=== PATIENT | female | born 1950 | race Caucasian/White ===

== ENCOUNTER → 2017-08-25 11:24 | Outpatient (CLI) | payer MEDICARE, MEDICAID, SELFPAY ==
[2017-08-25 13:38] LABS: Activated Partial Thrombo Time 27.3 seconds (23.6-34.0); INR 0.93 (0.9-1.1)
== END ==
PROVIDERS: Visit Provider Physician Assistant
DX: Z01.818 Encounter for other preprocedural examination (principal); Z79.01 Long term (current) use of anticoagulants; Z51.81 Encounter for therapeutic drug level monitoring
CPT/HCPCS: 36415; 85610; 85730

== ENCOUNTER → 2017-09-14 10:41 | Outpatient (CLI) | payer MEDICARE, MEDICAID, SELFPAY ==
[2017-09-14 18:25] LABS: Creatinine,Serum 1.06 mg/dL (0.55-1.02); Estimated Glomerular Filt Rate 52 ml/min (>60); GFR (African American) 63 ML/MIN (>60); Total Protein,Serum 6.3 gm/dL (6.4-8.2)
[2017-09-15 09:20] LABS: Vitamin D 25 Hydroxy 40.6 ng/mL (30.0-100.0)
[2017-09-17 08:02] LABS: Parathyroid Hormone Intact 42 pg/mL (15-65)
== END ==
PROVIDERS: Visit Provider Internal Medicine Nephrology
DX: N17.9 Acute kidney failure, unspecified (principal); N18.2 Chronic kidney disease, stage 2 (mild); E11.22 Type 2 diabetes mellitus with diabetic chronic kidney disease; I10 Essential (primary) hypertension
CPT/HCPCS: 36415; 82565; 82652; 83970; 84155

== ENCOUNTER 2017-09-16 15:00 | Outpatient (RCR) | payer MEDICARE, MEDICAID, SELFPAY | END 2017-09-16 17:15 | disposition home or self-care (01) | LOC: PT 15:00 | PROVIDERS: Visit Provider Physician Assistant | DX: R26.9 Unspecified abnormalities of gait and mobility (principal) | CPT/HCPCS: 97110; 97163 ==

== ENCOUNTER → 2018-03-19 10:29 | Outpatient (CLI) | payer MEDICARE, MEDICAID, SELFPAY ==
[2018-03-19 13:53] LABS: Creatinine,Urine Random 62 mg/dL (20-320); Total Protein,Urine Random 19.4 mg/dL (0.0-11.9)
[2018-03-20 10:58] LABS: Vitamin D 25 Hydroxy 36.8 ng/mL (30.0-100.0)
[2018-03-20 19:01] LABS: Parathyroid Hormone Intact 55 pg/mL (15-65)
== END ==
PROVIDERS: PCP Family Medicine; Visit Provider Internal Medicine Nephrology
DX: N17.9 Acute kidney failure, unspecified (principal); N18.2 Chronic kidney disease, stage 2 (mild); E11.22 Type 2 diabetes mellitus with diabetic chronic kidney disease
CPT/HCPCS: 36415; 82570; 82652; 83970; 84155

== ENCOUNTER → 2018-05-18 08:44 | Outpatient (CLI) | payer MEDICARE, MEDICAID, SELFPAY ==
--- NOTE | 2018-05-18 | US_ITS ---
US Arterial Ankle Brachial Ind History: Bilateral rest pain, bilateral claudication, current smoker, diabetes ORDERING PHYSICIAN: Viktoriya Ortiz DPM PATIENT AGE: 67 years TECHNIQUE: Segmental pressures obtained of both right and left leg. These are compared to brachial blood pressure to yield index at each level sampled including summary FABIEN. The data sheets from the procedure are available in PACS FINDINGS Rest study only performed today No prior studies available for comparison. Blood pressures reported are in millimeters mercury. RIGHT LEG FABIEN = 1.0. RIGHT LEG TBI=0.8 Brachial BP: 114 Thigh BP: 126 Calf BP: 124 Ankle PT: 112 Ankle DP : 101 Digit =89 LEFT LEG FABIEN = 0.9 LEFT LEG TBI= 0.7 Brachial BPD: 114 Thigh BP: 131 Calf BP: 126 Ankle PT:97 Ankle DP: 97 Digit = 74 Pulses and waveforms: Normal IMPRESSION: The ABIs and TBI s as reported above are within normal limits. Waveforms and pulses are also unremarkable.
== END ==
PROVIDERS: PCP Family Medicine; Visit Provider Podiatrist
DX: R09.89 Other specified symptoms and signs involving the circulatory and respiratory systems (principal)
CPT/HCPCS: 93922

== ENCOUNTER → 2018-09-21 11:05 | Outpatient (CLI) | payer MEDICARE, MEDICAID, SELFPAY ==
[2018-09-21 14:40] LABS: Creatinine,Urine Random 69 mg/dL (20-320); Total Protein,Urine Random 22.7 mg/dL (0.0-11.9)
[2018-09-21 17:19] LABS: Hemoglobin A1C 6.4 % (0.0-7.0)
[2018-09-24 07:12] LABS: Parathyroid Hormone Intact 40 pg/mL (15-65)
== END ==
PROVIDERS: PCP Family Medicine; Visit Provider Internal Medicine Nephrology
DX: N18.2 Chronic kidney disease, stage 2 (mild) (principal); E11.22 Type 2 diabetes mellitus with diabetic chronic kidney disease; I10 Essential (primary) hypertension; Z79.84 Long term (current) use of oral hypoglycemic drugs
CPT/HCPCS: 36415; 82570; 82652; 83036; 83970; 84155

== ENCOUNTER → 2018-12-13 10:19 | Outpatient (CLI) | payer MEDICARE, MEDICAID, SELFPAY ==
[2018-12-13 13:43] LABS: Basophils % 0.4 % (0.1-2.0); Eosinophils # 0.2 K/mm3 (0.0-0.4); Eosinophils % 1.5 % (0.1-12.0); Hematocrit 41.3 % (37.0-47.0); Hemoglobin 12.9 g/dL (12.2-16.2); Lymphocytes # 1.6 K/mm3 (0.7-4.5); Lymphocytes % 16.1 % (10-50); Mean Corpuscular HGB Conc 31.2 g/dL (31.8-35.4); Mean Corpuscular Hemoglobin 29.3 pg (27.0-31.2); Mean Corpuscular Volume 93.9 fl (81-99); Monocytes # 0.7 K/mm3 (0.1-1.0); Monocytes % 7.1 % (1.7-9.3); Neutrophils # 7.6 K/mm3 (1.8-7.8); Platelet Count 434 K/mm3 (142-424); Red Cell Distribution Width 14.4 % (11.5-17.5); White Blood Count 10.1 K/mm3 (4.8-10.8)
[2018-12-13 13:48] LABS: Alanine Aminotransferase 29 U/L (12-78); Albumin Level 3.3 gm/dL (3.4-5.0); Alkaline Phosphatase 89 U/L (46-116); Anion Gap 16.8 mEq/L (5-15); Aspartate Amino Transferase 15 U/L (15-37); Bilirubin,Total 0.3 mg/dL (0.2-1.0); Blood Urea Nitrogen 12 mg/dL (7-18); Calcium 9.4 mg/dL (8.5-10.1); Carbon Dioxide 29 mmol/L (21.0-32.0); Chloride 100 mmol/L (98-107); Chol/HDL Ratio 2.5 (1-3.5); Cholesterol 152 mg/dL (140-200); Creatinine,Serum 0.82 mg/dL (0.55-1.02); Estimated Glomerular Filt Rate 69 ml/min (>60); Free Thyroxine Index 4.2 ug/dL (5.93-13.13); GFR (African American) 84 ML/MIN (>60); Globulin 3.3 gm/dl (1.3-3.2); Glucose 152 mg/dL (74-106); HDL Cholesterol 62 mg/dL (29-89); LDL Cholesterol 76 mg/dL (0-130); Potassium 4.8 mmoL/L (3.5-5.1); Sodium 141 mmol/L (136-145); T4 (Thyroxine) 12.3 ug/dl (4.7-13.3); Total Protein,Serum 6.6 gm/dL (6.4-8.2); Triglycerides 72 mg/dL (30-200); Triiodothryronine (T3) Uptake 34 % (31-39); VLDL Cholesterol 14 mg/dL (0-40)
[2018-12-13 15:26] LABS: Hemoglobin A1C 6.4 % (0.0-7.0)
== END ==
PROVIDERS: PCP Family Medicine; Visit Provider Family Medicine
DX: E11.9 Type 2 diabetes mellitus without complications (principal); I10 Essential (primary) hypertension; E78.5 Hyperlipidemia, unspecified; Z79.84 Long term (current) use of oral hypoglycemic drugs
CPT/HCPCS: 80053; 80061; 83036; 84436; 84443; 84479; 85025

== ENCOUNTER → 2019-04-01 11:05 | Outpatient (CLI) | payer MEDICARE, MEDICAID, SELFPAY ==
[2019-04-01 13:46] LABS: Blood Urea Nitrogen 15 mg/dL (7-18); Calcium 9.2 mg/dL (8.5-10.1); Carbon Dioxide 31 mmol/L (21.0-32.0); Chloride 102 mmol/L (98-107); Creatinine,Serum 0.85 mg/dL (0.55-1.02); Estimated Glomerular Filt Rate 67 ml/min (>60); GFR (African American) 80 ML/MIN (>60); Glucose 132 mg/dL (74-106); Phosphorous 4.3 mg/dL (2.4-4.9); Sodium 141 mmol/L (136-145)
[2019-04-01 16:34] LABS: Hemoglobin A1C 6.4 % (0.0-7.0)
[2019-04-03 18:00] LABS: Parathyroid Hormone Intact 29 pg/mL (15-65); Vitamin D 25 Hydroxy 34.7 ng/mL (30.0-100.0)
== END ==
PROVIDERS: Visit Provider Internal Medicine Nephrology
DX: N18.2 Chronic kidney disease, stage 2 (mild) (principal); E11.22 Type 2 diabetes mellitus with diabetic chronic kidney disease; N17.9 Acute kidney failure, unspecified; Z79.84 Long term (current) use of oral hypoglycemic drugs
CPT/HCPCS: 36415; 80069; 82652; 83036; 83970

== ENCOUNTER 2020-01-24 17:35 | Inpatient (IN) | payer MEDICARE, MEDICAID, SELFPAY ==
[2020-01-24] VITALS (7 sets, daily range): BP systolic 109–139; BP diastolic 50–77; PULSE 67–110; RESP 18–20; TEMP 36.8–37.2; O2SAT 88–100; BMI 31.4; BMI 31.0
--- NOTE | 2020-01-24 17:51 | XR_ITS ---
PROCEDURE: XR CHEST PORTABLE CLINICAL HISTORY: cough Cough, smoker COMPARISON: CR CXR1 CHEST-PORTABLE from 11/14/2014 CR CXR CHEST(2 VIEWS-NOT PORTABLE) from 11/23/[address] ABDOMEN PELVIS W CON from 01/24/2020 FINDINGS: The cardiomediastinal silhouette and pulmonary vascularity are within normal limits. There is dense consolidation in the right lower lobe consistent with pneumonia. Recommend following till clear to exclude the possibility of postobstructive pneumonia. The left lung is clear . There are degenerative changes in the shoulders right greater than left. There is severe right-sided subacromial stenosis consistent with rotator cuff tear. IMPRESSION: Right lower lobe pneumonia. Recommend follow-up till clear Dictated by: Keenan Saavedra MD 01/25/2020 05:23 Keenan Saavedra MD in [place] 01/25/2020 05:23
[2020-01-24 18:26] LABS: Chloride 91 mmol/L (98-107); Sodium 133 mmol/L (136-145)
[2020-01-24 18:27] LABS: Potassium 3.4 mmoL/L (3.5-5.1)
[2020-01-24 18:29] LABS: Alanine Aminotransferase 31 U/L (12-78); Albumin Level 3.7 g/dl (3.5-5.0); Alkaline Phosphatase 100 U/L (38-126); Anion Gap 14.4 mEq/L (5-15); Aspartate Amino Transferase 40 U/L (14-36); Bilirubin,Total 0.5 mg/dl (0.2-1.3); Blood Urea Nitrogen 17 mg/dl (7-17); Calcium 9.2 mg/dl (8.4-10.2); Carbon Dioxide 31 mmol/L (22.0-30.0); Creatinine Clearance Estimated 63 mL/min (50-200); Estimated Glomerular Filt Rate 62 ml/min (>60); GFR (African American) 75 ML/MIN (>60); Globulin 3.6 g/dL (1.3-3.2); Glucose 160 mg/dl (74-100); Total Protein,Serum 7.3 g/dl (6.3-8.2)
[2020-01-24 18:30] LABS: Lipase 30 U/L (23-300)
[2020-01-24 18:39] LABS: Basophils # 0.1 K/mm3 (0-0.2); Basophils % 0.4 % (0.1-2.0); Eosinophils # 0.1 K/mm3 (0.0-0.4); Eosinophils % 0.2 % (0.1-12.0); Hematocrit 40.8 % (37.0-47.0); Hemoglobin 13.3 g/dL (12.2-16.2); Lymphocytes # 2.4 K/mm3 (0.7-4.5); Lymphocytes % 8.6 % (10-50); Mean Corpuscular HGB Conc 32.5 g/dL (31.8-35.4); Mean Corpuscular Hemoglobin 29.9 pg (27.0-31.2); Mean Platelet Volume 21.8 fl (7.4-10.4); Monocytes # 1.2 K/mm3 (0.1-1.0); Monocytes % 4.5 % (1.7-9.3); Neutrophils # 23.8 K/mm3 (1.8-7.8); Neutrophils % 86.6 % (37.0-80.0); Platelet Count 518 K/mm3 (142-424); Red Blood Count 4.43 M/mm3 (4.20-5.40); White Blood Count 27.5 K/mm3 (4.8-10.8)
[2020-01-24 18:41] LABS: MANUAL DIFFERENTIAL MANUAL DIFFERENTIAL (MANUAL DIFF)
--- NOTE | 2020-01-24 18:46 | CT_ITS ---
PROCEDURE: CT ABDOMEN PELVIS W CON CLINICAL INDICATION: pain, diarrhea, leukocytosis Abdominal pain tenderness and diarrhea COMPARISON: No exams were available for comparison TECHNIQUE: IV Contrast: 75ML Isovue 370 Oral Contrast None Axial images obtained with sagittal and coronal reformats. All CT scans at the facility use one or more dose reduction, viz: automated exposure control, ma/kV adjustment per patient size (including targeted exams where dose is matched to indication, i.e. head), or iterative reconstruction technique. FINDINGS: LOWER THORAX: There is dense consolidation in the right middle lobe consistent with pneumonia. Can't exclude the possibility of a postobstructive process. There are linear opacities in the right lower lobe in the lung base with bronchial thickening with some scattered nodularity as well which may be due to tree in bud type pneumonia. Atelectatic or fibrotic changes are present in the left lung base with bronchial thickening noted on the left. Coronary artery calcifications are present ABDOMEN & PELVIS: There are post cholecystectomy changes with mild biliary dilatation. The spleen, adrenal glands, pancreas, and kidneys have an unremarkable appearance. There is a small ventral abdominal wall hernia just to the right of midline this is 6 cm superior to the umbilicus. There is an umbilical hernia also containing fat. Abdominal wall mesh is present just inferior to the region of the umbilical hernia. There is extensive artifact from bilateral hip prosthesis. Prior appendectomy and hysterectomy. There is mild thickening of the transverse and descending colon with some minimal stranding of the pericolic fat at the junction of the descending and sigmoid colon. There is also thickening of the sigmoid colon. The sigmoid colon in the pelvic region however is obscured from the artifact from the hip prosthesis. There is diverticulosis of the sigmoid colon. There does appear to be some minimal stranding of the pericolic fat in the sigmoid area. Bowel gas pattern is nonspecific with some nondistended loops of small bowel with a few scattered air-fluid levels. There are degenerative changes in the lumbar spine with severe degenerative disc disease at L4-5 with osteosclerosis. There is 6 mm anterolisthesis of L4. IMPRESSION: 1. Dense consolidation in the right middle lobe consistent with pneumonia also with pneumonia in the right lower lobe 2. There are 2 abdominal wall hernias 1 which is 6 cm superior to the umbilicus and 1 at the umbilicus both containing fat. 3. Thickening of the transverse and descending colon which could be due to nondistention or colitis. Scattered air-fluid levels within the small bowel nonspecific. 4. Sigmoid diverticulosis with mild stranding of the pericolic fat. Much of the sigmoid colon is obscured by artifact. Diverticulitis is a consideration. No obvious abscess or pneumoperitoneum. There is extensive streak artifact of the pelvis from bilateral hip prosthesis Dictated by: Keenan Saavedra MD 01/25/2020 06:06 Keenan Saavedra MD in [facility] 01/25/2020 06:06
--- NOTE | 2020-01-24 18:48 | HMH.EDGENADL ---
ED Disposition Condition on Discharge: Serious - Critical Care Critical Care Time: Yes Total Critical Care Time: 30 Vital system(s) involved:: Circulatory Failure, Metabolic Failure, Respiratory Failure, Shock (Septic) My critical care processes included: Assessment & monitoring of V/S, Initial and Re-exams, Data Review/Interpretation, Coordinating Care, Medication Orders and management, Documentation <Geoff Encarnacion - Last Filed: 01/24/20 19:31> <Brian Arce - Last Filed: 01/24/20 21:28> Clinical Impression: Gastroenteritis, Acute respiratory failure with hypoxia, SIRS (systemic inflammatory response syndrome), Type 2 diabetes mellitus with diabetic neuropathy, without long-term current use of insulin, Ileus, unspecified, Tobacco use Right lower lobe pneumonia Qualifiers: Pneumonia type: due to unspecified organism Qualified Code(s): J18.9 - Pneumonia, unspecified organism Sepsis Qualifiers: Sepsis type: sepsis due to unspecified organism Sepsis acute organ dysfunction status: without acute organ dysfunction Qualified Code(s): A41.9 - Sepsis, unspecified organism Disposition: Admitted As Inpatient Referrals: Anastasia Hutchinson [Primary Care Provider] - Attestation: On 01/24/20, the high probability of a clinically significant, sudden or life threatening deterioration of the following system(s) required my full and direct attention, intervention and personal management. The time I documented below is in addition to time spent performing reported procedures but includes the following listed in this critical care notation. Medical Decision Making - Medical Records Medical records reviewed: Yes: I reviewed the patient's medical records. - Franklyn Inquiry Pt receiving controlled substance: No - Lab Data Result diagrams: 01/24/20 18:00 01/24/20 18:00 - Radiology Data #1 Image(s): Chest Image Reviewed: Yes I reviewed the patient's radiology results, Yes I reviewed the patient's radiology image <Geoff Encarnacion - Last Filed: 01/24/20 19:31> - Lab Data Lab results reviewed: Yes: I reviewed the patient's lab results. Result diagrams: 01/24/20 18:00 01/24/20 18:00 - Radiology Data #1 Preliminary Findings: Abnormal - CT Data CT Scan: Abdomen, Pelvis Time Received: 21:[address] Reviewed: Yes: I have viewed the radiologist's interpretation Preliminary Findings: Abnormal (see report ) <Brian Arce S - Last Filed: 01/24/20 21:28> Vital Signs: 01/24/20 17:43 01/24/20 18:07 01/24/20 20:50 Temperature 99 F Temperature Source Oral Pulse Rate [Radial] 67 103 H 81 Respiratory Rate 20 18 18 Blood Pressure [Right Arm] 111/65 109/77 L 123/50 L Blood Pressure Mean [Right Arm] 80 87 74 Blood Pressure Source [Right Arm] Automatic Cuff Automatic Cuff Blood Pressure Position [Right Arm] Sitting Sitting 02 Sat by Pulse Oximetry 88 L 100 99 Oxygen Delivery Method Nasal Cannula Room Air Nasal Cannula Oxygen Flow Rate (LPM) 2 2 - Lab Data Lab Results 01/24/20 18:00: WBC 27.5 H*, RBC 4.43, Hgb 13.3, Hct 40.8, MCV 92.0, MCH 29.9, MCHC 32.5, RDW 17.0, Plt Count 518 H, MPV 21.8 H, Neut % (Auto) 86.6 H, Lymph % (Auto) 8.6 L, Quay % (Auto) 4.5, Eos % (Auto) 0.2, Baso % (Auto) 0.4, Neut # (Auto) 23.8 H, Lymph # (Auto) 2.4, Quay # (Auto) 1.2 H, Eos # (Auto) 0.1, Baso # (Auto) 0.1, Total Counted 100, Neutrophils % (Manual) 91 H, Lymphocytes % (Manual) 7 L, Monocytes % (Manual) 2, Platelet Estimate Slight increase, RBC Morphology Normal 01/24/20 18:00: Sodium 133 L, Potassium 3.4 L, Chloride 91 L, Carbon Dioxide 31 H, Anion Gap 14.4, BUN 17, Creatinine 0.90, Estimated Creat Clear 63, Estimated GFR 62, Est GFR ( Amer) 75, Glucose 160 H, Calcium 9.2, Total Bilirubin 0.5, AST 40 H, ALT 31, Alkaline Phosphatase 100, Total Protein 7.3, Albumin 3.7, Globulin 3.6 H, Albumin/Globulin Ratio 1.0 L 01/24/20 18:00: Lipase 30 01/24/20 18:00: Troponin I 0.02 01/24/20 18:00: SARS-CoV-2 IgG Ab (Rapid) Negative
[2020-01-24 19:15] LABS: Troponin I 0.02 ng/ml (0.00-0.034)
[2020-01-24 19:29] LABS: Lactic Acid 0.9 mmol/L (0.7-2.1)
[2020-01-24 19:29] LABS: Lymphocytes % 7 % (10-50); Monocytes % 2 % (2-9); Neutrophils % 91 % (42-76); Platelet Estimate Slight Increase; RBC Morphology Normal; Total Cells Counted 100
[2020-01-24 19:46] LABS: Coronavirus 19 IgG Antibody Negative (Negative); Coronavirus 19 IgM Antibody Negative (Negative)
--- NOTE | 2020-01-24 20:46 | PC.NURSE ---
pt back from XR at this time
[2020-01-24 21:06] LABS: ABG Base Excess 2.7 mmol/L (-2.4-2.3); ABG HCO3 28.6 mmhg (22.0-26.0); ABG Oxygen Saturation 96 % (90-100); ABG PH 7.33 mmol/L (7.35-7.45); ABG PO2 93.8 mmhg (80-100); ABG TCO2 30.4 mmhg (23-27)
[2020-01-24 21:07] LABS: ABG PCO2 55.7 mmhg (35.0-45.0); Oxygen 2 %
--- NOTE | 2020-01-24 22:08 | PC.NURSE ---
PT ARRIVED TO THE FLOOR VIA STRETCHER FROM ED W/STAFF AT 2207.
[2020-01-24 23:18] LABS: Troponin I 0.01 ng/ml (0.00-0.034)
[2020-01-25] VITALS (18 sets, daily range): BP systolic 98–159; BP diastolic 46–98; PULSE 100–120; RESP 16–20; TEMP 36.6–36.8; O2SAT 91–99; BMI 30.9; BMI 30.8
[2020-01-25 01:14] LABS: Troponin I < 0.01 ng/ml (0.00-0.034)
[2020-01-25 06:18] LABS: POC Glucose,Bedside 197 (70-110)
[2020-01-25 06:39] LABS: Basophils % 0.2 % (0.1-2.0); Eosinophils # 0.1 K/mm3 (0.0-0.4); Eosinophils % 0.2 % (0.1-12.0); Hematocrit 41.1 % (37.0-47.0); Hemoglobin 12.1 g/dL (12.2-16.2); Lymphocytes # 0.7 K/mm3 (0.7-4.5); Lymphocytes % 3.4 % (10-50); Mean Corpuscular HGB Conc 29.4 g/dL (31.8-35.4); Mean Corpuscular Volume 98.7 fl (81-99); Mean Platelet Volume 7.3 fl (7.4-10.4); Monocytes # 0.4 K/mm3 (0.1-1.0); Monocytes % 1.9 % (1.7-9.3); Neutrophils % 94.3 % (37.0-80.0); Platelet Count 567 K/mm3 (142-424); Red Blood Count 4.16 M/mm3 (4.20-5.40); Red Cell Distribution Width 13.2 % (11.5-17.5); White Blood Count 20.2 K/mm3 (4.8-10.8)
[2020-01-25 06:41] LABS: MANUAL DIFFERENTIAL MANUAL DIFFERENTIAL (MANUAL DIFF)
[2020-01-25 06:50] LABS: Chloride 97 mmol/L (98-107); Sodium 138 mmol/L (136-145)
[2020-01-25 06:52] LABS: Blood Urea Nitrogen 14 mg/dl (7-17)
[2020-01-25 06:53] LABS: Calcium 8.9 mg/dl (8.4-10.2); Carbon Dioxide 28 mmol/L (22.0-30.0); Cholesterol 134 mg/dl (140-200); Creatinine Clearance Estimated 62 mL/min (50-200); Estimated Glomerular Filt Rate 71 ml/min (>60); GFR (African American) 86 ML/MIN (>60); Glucose 198 mg/dl (74-100); Triglycerides 120 mg/dl (30-150); VLDL Cholesterol 24 mg/dL (0-40)
[2020-01-25 06:54] LABS: Chol/HDL Ratio 4.1 (1-3.5); HDL Cholesterol 33 mg/dl (40-60)
[2020-01-25 07:04] LABS: Direct LDL Cholesterol 60.14 mg/dL (100-129)
--- NOTE | 2020-01-25 07:32 | P.CONPHA_ITS ---
[facility] [place] Pharmacy VTE Monitoring - Patient Demographics Admission date: 01/25/20 Report Date: 01/25/20 Time: 07:32 Allergies/Adverse Reactions: Patient Allergies From FOSAMAX Allergy (Intermediate, Uncoded 04/13/19 09:57) NA-DIZZINESS From LIPITOR Allergy (Intermediate, Uncoded 04/13/19 09:57) WEAKNESS TUBERCULIN Allergy (Mild, Uncoded 04/13/19 09:57) POSITIVE REACTOR Height: 1.55 m Weight: 74.446 kg Patient Problems: Current Active Problems Right lower lobe pneumonia (Acute) Gastroenteritis (Acute) Sepsis (Acute) Acute respiratory failure with hypoxia (Acute) SIRS (systemic inflammatory response syndrome) (Acute) Ileus, unspecified (Acute) Tobacco use (Acute) Type 2 diabetes mellitus with diabetic neuropathy, without long-term current use of insulin (Acute) - VTE Risk Labs: VTE Related Lab Results Hgb 12.1 g/dL (12.2-16.2) L 01/25/20 06:28 Hct 41.1 % (37.0-47.0) 01/25/20 06:28 Plt Count 567 K/mm3 (142-424) H 01/25/20 06:28 BUN 17 mg/dl (7-17) 01/24/20 18:00 Creatinine 0.90 mg/dl (0.52-1.04) 01/24/20 18:00 Estimated Creat Clear 63 mL/min (50-200) 01/24/20 18:00 Was VTE Risk Assessment Performed: Yes VTE Score: 10 VTE Risk Level: Moderate Risk Clinical Trial Participant: No - Prophylaxis VTE Prophylaxis Ordered?: Yes Types of VTE Prophylaxis: TEDS Knee High
[2020-01-25 07:56] LABS: Magnesium 0.9 mg/dl (1.6-2.3)
--- NOTE | 2020-01-25 08:00 | CA_ITS ---
APPROVED REPORT EXAM: Comprehensive 2D, Doppler, and color-flow Echocardiogram Parent Coach: Nichole aYng RT(R) Ht: 5 ft 1 in Wt: 164lbs BSA: 1.74 BP: 123/50 mmHg Indications: CP, COPD, smoker, HTN, DM, hyperlipidemia, family history of HD M-Mode Dimensions RVDd 2.13 cm (0.9-2.6) LA Diam 2.91 cm (1.9-4.0) LVDd 4.34 cm (3.5-5.7) Ao Diam 2.34 cm (2.0-3.7) LVDs 3.45 cm (3.5-5.7) IVSd 1.16 cm (0.6-1.1) PWd 0.92 cm (0.6-1.1) EF (Teich) 42.20% FS 20.50% EDV (Teich) 84.90 mL ESV (Teich) 49.10 mL LV Diastology E Decel Time 150.00 (160-240 msec) E/A Ratio 0.6 MED E' 5.70 (< 7 cm/sec) E'/MED E' Ratio 16.67 (>14) LAT E' 10.90 (<10 cm/sec) E/LAT E' Ratio 8.72 (>14) Mitral Valve MV E Max Neville. 95.00 (40-130 cm/s) MV A Velocity 166.00 (40-130 cm/s) E/A Ratio 0.57 MV Decel. Time 150.00 (160-240 ms) MV PHT 44.00 ms Left Ventricle Left atrium is mildly enlarged, left ventricle is normal size, mild concentric left ventricular hypertrophy, visually estimated ejection fraction 55% with no regional wall motion abnormality, endocardial surfaces are poorly visualized, grade 1 diastolic dysfunction seen without tissue Doppler evidence of raise left atrial pressure. Right Ventricle Right atrium and right ventricle are normal size and contractility. Aortic Valve Aortic valve is thickened and calcified, there is no aortic stenosis or significant aortic insufficiency. Mitral Valve Mitral valve has mitral annular calcification, leaflets are minimally thickened, there is moderate mitral regurgitation. Tricuspid Valve Tricuspid valve is grossly normal, there is mild tricuspid regurgitation, tricuspid regurgitation jet velocity is inadequate for calculation of the right ventricular systolic pressure. Pulmonic Valve Pulmonic valve is poorly visualized. Great Vessels Aortic root is normal size. Inferior vena cava is normal size with normal inspiratory collapse. Pericardium No significant pericardial effusion noted. Conclusion 1. Mildly enlarged left atrium, normal left ventricular size, mild concentric left ventricular hypertrophy, visually estimated ejection fraction 55% with no regional wall motion abnormality, grade 1 diastolic dysfunction seen without tissue Doppler evidence of raise left atrial pressure. 2. Thickened and calcified aortic valve without aortic stenosis or aortic insufficiency. 3. Moderate mitral and mild tricuspid regurgitation. 4. Inferior vena cava is normal size with normal inspiratory collapse. There is no significant pericardial effusion noted. Electronically signed by : Sander Valdez, 01/26/2020 10:48:05
--- NOTE | 2020-01-25 08:05 | PC.NURSE ---
blood pressure reported to tana sharma rn
--- NOTE | 2020-01-25 08:13 | PC.NURSE ---
tana sharma, rn at bedside, aware of repeat b/p
--- NOTE | 2020-01-25 08:15 | PC.NURSE ---
Notified Dr. Arce of magnesium of 0.9 during morning rounds as well as manual blood pressure of 98/50. He said he would order magnesium to be given.
[2020-01-25 08:31] LABS: Lymphocytes % 8 % (10-50); Monocytes % 2 % (2-9); Neutrophils % 90 % (42-76); Platelet Estimate Marked Increase; RBC Morphology Normal; Total Cells Counted 100
--- NOTE | 2020-01-25 10:12 | SW/DCPLANNER ---
I have spoke with this patient regarding discharge plans. Patient stated that she resides in apartments in [place] alone. Patient stated that she does well at home alone: will occasionally hire help for large task she can not complete alone. Patient stated that she does have O2 thru [facility] but only uses with it with her CPAP machine. Patient stated that she does not know how to use nasal cannula if needed. I will follow up with [facility] at discharge to assist in making sure they will follow up with machine and educate patient if home O2 is needed at discharge. Patient stated that she has a rolling walker that she uses at home. Patient stated that she has used home health services in the past and feels that she could benefit from services at time of discharge. Patient prefers to use [facility]. Discharge date is unknown at this time. I will continue to follow up with: patient and .
--- NOTE | 2020-01-25 10:33 | HMH.PHAINT ---
[facility]
--- NOTE | 2020-01-25 10:45 | HMH.HP ---
*Admission Date: 01/25/20 *Chief complaint: Cough, fever *History of present illness: This is a 69-year-old female presenting to the emergency department with nausea, diarrhea, cough and low-grade fever. Patient has had the symptoms for the last week. She states the diarrhea is slightly getting better. It is clear in nature. No blood or mucus. She was not having any associated abdominal discomfort. Patient started having some runny nose over the last few days. She started having some low-grade fevers as well. She denies any headache or change in vision. She is not having any focal weakness. No back pain. She denies any extremity injuries. No chest pain or shortness of breath. No palpitations. In the emergency department white blood cell count was 27.5, H/H 13.3/40.8, platelets 518. Sodium 133, potassium 3.4 BUN 17, and creatinine 0.9. Lipase was 30, AST 40, ALT 31 Interestingly procalcitonin 0.40, SARS-COV-2 IgG negative, SARS-COV-2 IgM negative. She received ceftriaxone, doxycycline IV and 1 L normal saline in the emergency department This morning she is sitting up in bed oxygen saturations 96% on 2 L she reports she is feeling a little better but she is still tired and short of breath. Consulted pulmonology 01/24/2020 chest x-ray: FINDINGS: The cardiomediastinal silhouette and pulmonary vascularity are within normal limits. There is dense consolidation in the right lower lobe consistent with pneumonia. Recommend following till clear to exclude the possibility of postobstructive pneumonia. The left lung is clear . There are degenerative changes in the shoulders right greater than left. There is severe right-sided subacromial stenosis consistent with rotator cuff tear. IMPRESSION: Right lower lobe pneumonia. Recommend follow-up till clear Dictated by: Quentin, 01/24/20 abdomen/pelvis CT: IMPRESSION: 1. Dense consolidation in the right middle lobe consistent with pneumonia also with pneumonia in the right lower lobe 2. There are 2 abdominal wall hernias 1 which is 6 cm superior to the umbilicus and 1 at the umbilicus both containing fat. 3. Thickening of the transverse and descending colon which could be due to nondistention or colitis. Scattered air-fluid levels within the small bowel nonspecific. 4. Sigmoid diverticulosis with mild stranding of the pericolic fat. Much of the sigmoid colon is obscured by artifact. Diverticulitis is a consideration. No obvious abscess or pneumoperitoneum. There is extensive streak artifact of the pelvis from bilateral hip prosthesis Dictated by: Quentin [facility] History Medical History: Reports:: Asthma, Congestive Heart Failure, Chronic Obstructive Pulmonary Disease (COPD), Deep Vein Thrombosis, Diabetes Mellitus Type 2, Hyperlipidemia, Hypertension Denies:: Cancer, Diabetes Mellitus Type 1, MRSA *Have you ever received a pneumonia vaccine?: No *Have you received a flu vaccine this season?: No Other Medical History: Reports: Cataracts Laterality Cases: Bilateral: Tonsillectomy, Total Hip Replacement Other Surgeries: Yes: Cardiac Catheterization, Cholecystectomy, Colonoscopy, EGD, Hernia Repair, Hysterectomy-Total Amputation: No Fractures: Yes - *Social History Last grade of school completed: High school graduate Smoking Status: Current every day smoker Tobacco Type: cigarettes # Packs/Day (cigarettes): 1 Alcohol Intake: never Alcohol Intake Frequency:: other *Occupational Status:: retired Housing: assisted living facility *Travel in the last 8 weeks: None Family Hx:: Diabetes, Heart Attack, Hypertension Review of Systems - Review of Systems Review of systems:: pertinent systems reviewed and negative unless documented below - Constitutional Reports chills, Reports fatigue, Reports fever(s), Denies body ache(s) - Eyes Denies blind spots, Denies sensitivity to light - ENT Reports ear pain, Reports nasal discharge, Reports post nasal drip, Denies tongue s
--- NOTE | 2020-01-25 10:52 | HMH.PULMCON ---
*Admission Date: 01/25/20 *Reason for consult:: Acute hypoxic respiratory failure, community-acquired pneumonia *History of present illness: Ms. Meza is a 69-year-old female significant smoking history more than 30 packs a day currently smoking half pack a day was presented to the hospital complaining of abdominal pain diarrhea along with worsening cough productive phlegm and shortness of breath. On further questioning patient states that she has increased sinus drainage for the last week and she feels like her sinus cysts are draining back to her throat and that is prompting the cough. Denies any fevers, chills, weight loss. Denies any sick contacts. Patient at home using Dulera along with albuterol inhaler she is also on CPAP on 2 L nasal cannula. [facility] History Medical History: Reports:: Asthma, Congestive Heart Failure, Chronic Obstructive Pulmonary Disease (COPD), Deep Vein Thrombosis, Diabetes Mellitus Type 2, Hyperlipidemia, Hypertension Denies:: Cancer, Diabetes Mellitus Type 1, MRSA *Have you ever received a pneumonia vaccine?: No *Have you received a flu vaccine this season?: No Other Medical History: Reports: Cataracts Laterality Cases: Bilateral: Tonsillectomy, Total Hip Replacement Other Surgeries: Yes: Cardiac Catheterization, Cholecystectomy, Colonoscopy, EGD, Hernia Repair, Hysterectomy-Total Amputation: No Fractures: Yes - *Social History Last grade of school completed: High school graduate Smoking Status: Current every day smoker Tobacco Type: cigarettes # Packs/Day (cigarettes): 1 Alcohol Intake: never Alcohol Intake Frequency:: other *Occupational Status:: retired Housing: assisted living facility *Travel in the last 8 weeks: None Family Hx:: Diabetes, Heart Attack, Hypertension ROS - Review of Systems Review of systems:: pertinent systems reviewed and negative unless documented below - Cons Reports chills, Reports fever(s), Denies anorexia, Denies body ache(s) - Eyes Denies blind spots, Denies blurry vision - ENT Reports nasal discharge, Reports post nasal drip - Card Reports shortness of breath, Reports shortness of breath with activity, Denies chest pain, Denies chest pain at rest, Denies leg swelling - Resp Respiratory: Yes shortness of breath, Yes chest congestion, Yes cough - GI Gastrointestingal: Reports: abdominal pain - Musk Musculoskeletal: Reports system reviewed and no additional complaints, except as docu - Psych Reports anxiety, Denies abnormal sleep pattern, Denies lack of enjoyment Meds Home Medications Medication Instructions Recorded Confirmed Type atorvastatin 20 mg tablet 20 mg PO DAILY 90 Days #90 tab 05/13/18 01/24/20 History clopidogrel 75 mg tablet 75 mg PO DAILY 90 Days #90 tab 05/13/18 01/24/20 History fluticasone propionate 50 1 spray INTRANASAL DAILY 30 Days 05/13/18 01/24/20 History mcg/actuation nasal #16 g spray,suspension furosemide 20 mg tablet 20 mg PO BID 90 Days #90 tab 05/13/18 01/25/20 History hydroxyzine HCl 25 mg tablet 25 mg PO BID 90 Days #180 tab 05/13/18 01/24/20 History bupropion HCl 150 mg tablet,12 hr 150 mg PO BID 90 Days #180 each 11/09/19 01/24/20 History sustained-release gabapentin 100 mg capsule 300 mg PO BID 30 Days #180 cap 11/09/19 01/24/20 History glipizide 10 mg tablet 10 mg PO HS 90 Days tab 11/09/19 01/24/20 History metformin 500 mg tablet 500 mg PO BID 90 Days #180 tab 11/09/19 01/24/20 History metoprolol succinate 50 mg 50 mg PO DAILY 90 Days #90 tab 11/09/19 01/24/20 History tablet,extended release 24 hr montelukast 10 mg tablet 10 mg PO DAILY tab 11/09/19 01/24/20 History potassium chloride 10 mEq 10 meq PO DAILY 90 Days #90 cap 11/09/19 01/24/20 History capsule,extended release ranolazine 500 mg tablet,extended 500 mg PO BID 90 Days #180 tab 11/09/19 01/24/20 History release,12 hr tramadol 37.5 mg-acetaminophen 325 1 tab PO BIDP PRN 30 Days #30 tab 11/09/19 01/25/20 History mg tablet Albuterol Sulfate [A
[2020-01-25 11:26] LABS: POC Glucose,Bedside 342 (70-110)
[2020-01-25 11:32] LABS: Procalcitonin 0.041 ng/mL (0.0-2.0)
--- NOTE | 2020-01-25 16:15 | PC.NURSE ---
A&OX4. PT WAS ON 2L AND HAS BEEN WEANED TO ROOM AIR. SHE IS TOLERATING WELL. PRODUCTIVE COUGH NOTED. COARSE CRACKLES AND EXPIRATORY WHEEZES NOTED THROUGHOUT LUNGS. HAND DRAPERY ESTIMATOR EQUAL. +2 PULSES NOTED THROUGHOUT. ACTIVE BOWEL SOUNDS HEARD IN ALL 4 QUADRANTS. SOFT AND NONTENDER ABDOMEN. NO BM THUS FAR. PT VOIDS PER TOILET WITH STANDBY ASSIST. BRIGHT YELLOW URINE NOTED. STEADY GAIT NOTED. PT HAS BEEN UP TO THE CHAIR AND MOVING AROUND THE ROOM IN HER WHEELCHAIR. SHE HAS HAD NO COMPLAINTS OF PAIN OR SOB. PT HAS REMAINED ON TELE THROUGHOUT SHIFT. PT RECEIVED MAGNESIUM IV THIS MORNING AND TOLERATED WELL. PT IS CURRENTLY SITTING IN HER WHEELCHAIR WITH CALL LIGHT WITHIN REACH. BED IN LOWEST POSITION. VSS. WILL CONTINUE TO MONITOR.
[2020-01-25 16:58] LABS: POC Glucose,Bedside 312 (70-110)
--- NOTE | 2020-01-25 19:05 | PC.NURSE ---
report given to jose
[2020-01-25 21:51] LABS: POC Glucose,Bedside 264 (70-110)
[2020-01-26] VITALS (11 sets, daily range): BP systolic 92–166; BP diastolic 57–82; PULSE 100–123; RESP 16–24; TEMP 36.7–36.9; O2SAT 90–98; BMI 32.1
--- NOTE | 2020-01-26 04:16 | PC.NURSE ---
Pt is A&Ox4. Coarse crackles heard t/o all lung henderson per auscultation. Bowel sounds present in all 4 quads. +1 non putting edema noted on BUE, with +1 pitting edema noted on BLE. Pt sat up to chair at the beginning of this shift, and was able to transfer self to bed with x1 assist of staff. Pt has been NSR and ST on tele this shift. Pt has tolerated RA appropriately this shift with o2 SATS in the lower 90's. Call light remains in reach. No other acute changes or complaints at this time. Will continue to monitor.
[2020-01-26 06:18] LABS: POC Glucose,Bedside 182 (70-110)
[2020-01-26 07:14] LABS: Basophils % 0.1 % (0.1-2.0); Eosinophils % 0.1 % (0.1-12.0); Hematocrit 34.3 % (37.0-47.0); Hemoglobin 10.2 g/dL (12.2-16.2); Lymphocytes # 1.6 K/mm3 (0.7-4.5); Lymphocytes % 7.1 % (10-50); Mean Corpuscular HGB Conc 29.7 g/dL (31.8-35.4); Mean Corpuscular Hemoglobin 28.8 pg (27.0-31.2); Mean Platelet Volume 7.4 fl (7.4-10.4); Monocytes # 0.8 K/mm3 (0.1-1.0); Monocytes % 3.7 % (1.7-9.3); Neutrophils # 19.9 K/mm3 (1.8-7.8); Neutrophils % 88.9 % (37.0-80.0); Platelet Count 558 K/mm3 (142-424); Red Blood Count 3.53 M/mm3 (4.20-5.40); Red Cell Distribution Width 13.4 % (11.5-17.5); White Blood Count 22.4 K/mm3 (4.8-10.8)
[2020-01-26 07:29] LABS: MANUAL DIFFERENTIAL MANUAL DIFFERENTIAL (MANUAL DIFF)
[2020-01-26 07:51] LABS: Chloride 100 mmol/L (98-107); Potassium 3.6 mmoL/L (3.5-5.1); Sodium 138 mmol/L (136-145)
[2020-01-26 07:53] LABS: Blood Urea Nitrogen 18 mg/dl (7-17); Creatinine Clearance Estimated 65 mL/min (50-200); Estimated Glomerular Filt Rate 71 ml/min (>60); GFR (African American) 86 ML/MIN (>60)
[2020-01-26 07:54] LABS: Anion Gap 11.6 mEq/L (5-15); Carbon Dioxide 30 mmol/L (22.0-30.0); Glucose 157 mg/dl (74-100)
--- NOTE | 2020-01-26 08:40 | PC.NURSE ---
Dr. Arce aware of BP and HR.
--- NOTE | 2020-01-26 08:49 | HMH.PULMPN ---
Internal Medicine - PN: Subj *Date: 01/26/20 *Time: 10:48 Interval history: No acute respiratory events overnight Exam - Constitutional Constitutional:: no acute distress - HENMT Exam HENMT: normocephalic, atraumatic - Eye Exam Eyes:: normal appearance both eyes and related structures - Neck Exam Neck:: normal visual inspection, thyroid normal, no lymphadenopathy - Respiratory Exam Respiratory:: able to speak in complete sentences - Cardiovascular Exam Cardiac:: regular rhythm, S1, S2 - GI Exam GI:: soft, no hepatosplenomegaly - Skin Exam Skin: warm, no rash - Neurological Exam Neurological: alert, awake, normal cognition - Extremities Exam Extremities: no cyanosis, no clubbing, no edema - Psychiatric Exam Psychiatric: normal affect Assessment and Plan (1) Acute respiratory failure with hypoxia Status: Acute Category: Medical Code(s): J96.01 - Acute respiratory failure with hypoxia (2) Gastroenteritis Status: Acute Category: Medical Code(s): K52.9 - Noninfective gastroenteritis and colitis, unspecified (3) SIRS (systemic inflammatory response syndrome) Status: Acute Category: Medical Code(s): R65.10 - Systemic inflammatory response syndrome (SIRS) of non-infectious origin without acute organ dysfunction (4) Sepsis Status: Acute Qualifiers: Sepsis type: sepsis due to unspecified organism Sepsis acute organ dysfunction status: without acute organ dysfunction Qualified Code(s): A41.9 - Sepsis, unspecified organism Category: Medical Code(s): A41.9 - Sepsis, unspecified organism (5) Tobacco use Status: Acute Category: Social Hx Code(s): Z72.0 - Tobacco use - Assessment and plan all Dx Assessment and Plan for all problems:: #Community-acquired pneumonia: #COPD exacerbation: #Acute hypoxic respiratory failure: 69-year-old female significant smoking history diagnosis COPD on Dulera and albuterol inhaler presented with worsening fevers chills and productive phlegm and chest x-ray showed right lower lobe pulmonary infiltrate. ABG on admission showed metabolic acidosis. COVID-19 PCR negative. Patient was initiated on Treatment with ceftriaxone azithromycin along with prednisone for COPD exacerbation, patient respiratory status significantly improved Gram stain few gram-positive cocci in pairs. Patient still having significant leukocytosis at 22.4, neutrophil predominant. HemoDynamically stable, given mild infiltrate on the chest x-ray on patient being on room air consider evaluating other sources of patient's leukocytosis Plan: -Continue ceftriaxone azithromycin for community-acquired pneumonia can de-escalate to levofloxacin on discharge for a total duration of 5 days -Prednisone 40 mg for total of 5 days -Follow with final sputum cultures -DuoNebs every 6 hours scheduled along with budesonide every 12 schedule, please discharge the patient on triple inhaler therapy when appropriate -Incentive spirometry 4-6 times a day -We will follow the patient in 6 weeks post discharge with full PFTs, CXR-2 views and 6-minute walk testing #History of TB exposure: Patient admits significant exposure to active TB, her father and her uncle of TB infection. Patient also stated her PPD skin testing one positive when she was in high school. Patient now denies any fevers, weight loss, hemoptysis Plan: - TB quantiferon testing (if testing is positive will evaluate the need for latent TB treatment on her follow-up clinic visit) -We will follow the patient in 6 weeks post discharge with full PFTs, 6-minute walk testing and CXR PA/Lat #Thank you for involving pulmonary in this patient care. We will continue to follow.
[2020-01-26 09:29] LABS: Lymphocytes % 4 % (10-50); Monocytes % 4 % (2-9); Neutrophils % 92 % (42-76); Platelet Estimate Moderate Increase; RBC Morphology Normal; Total Cells Counted 100
--- NOTE | 2020-01-26 11:23 | HMH.CNCARD ---
History of Present Illness Consult date: 01/26/20 Requesting physician: Brian Arce Chief complaint: Tachycardia Additional Medical History:: 1. Coronary disease with history of coronary artery stenting approximately 2014 2. History of rheumatic fever 3. Tobacco use since age 12 A. COPD 4. Arthritis 5. Anxiety 6. Hypertension 7. Hyperlipidemia, on statin therapy with LDL 60, HDL 33 triglycerides 120, 01/2020 8. Diabetes mellitus, type II, treated for a couple of years but history of borderline diabetic for many years. 9. Carotid artery stenosis, followed by Dr. Guevara per patient. 10. Arthritis head to toe per patient History of present illness: This is a 69-year-old female presenting to the emergency department with nausea, diarrhea, cough and low-grade fever. Patient has had the symptoms for the last week. She states the diarrhea is slightly getting better. It is clear in nature. No blood or mucus. She was not having any associated abdominal discomfort. Patient started having some runny nose over the last few days. She started having some low-grade fevers as well. She denies any headache or change in vision. She is not having any focal weakness. No back pain. She denies any extremity injuries. No chest pain or shortness of breath. No palpitations. In the emergency department white blood cell count was 27.5, H/H 13.3/40.8, platelets 518. Sodium 133, potassium 3.4 BUN 17, and creatinine 0.9. Lipase was 30, AST 40, ALT 31 Interestingly procalcitonin 0.40, SARS-COV-2 IgG negative, SARS-COV-2 IgM negative. She received ceftriaxone, doxycycline IV and 1 L normal saline in the emergency department This morning she is sitting up in bed oxygen saturations 96% on 2 L she reports she is feeling a little better but she is still tired and short of breath The above per Alverto Hwang APRN for Dr. Arce Cardiology consulted today for the patient's persistent tachycardia. Patient denies any chest pain, pressure or tightness. She was on metoprolol in the past for a rapid heart rate but this has been held due to her pulmonary issues this admission. Troponins have been normal x3. Echocardiogram shows preserved ejection fraction at 55% with moderate mitral regurgitation. Patient's regular systems security consultant is Dr. Angela Guevara in [place], [place] and she sees her about every 6 months. [facility] History Medical History: Reports:: Asthma, Congestive Heart Failure, Chronic Obstructive Pulmonary Disease (COPD), Deep Vein Thrombosis, Diabetes Mellitus Type 2, Hyperlipidemia, Hypertension Denies:: Cancer, Diabetes Mellitus Type 1, MRSA *Have you ever received a pneumonia vaccine?: No *Have you received a flu vaccine this season?: No Other Medical History: Reports: Cataracts Laterality Cases: Bilateral: Tonsillectomy, Total Hip Replacement Other Surgeries: Yes: Cardiac Catheterization, Cholecystectomy, Colonoscopy, EGD, Hernia Repair, Hysterectomy-Total Amputation: No Fractures: Yes - *Social History Last grade of school completed: High school graduate Smoking Status: Current every day smoker Tobacco Type: cigarettes # Packs/Day (cigarettes): 1 Alcohol Intake: never Alcohol Intake Frequency:: other *Occupational Status:: retired Housing: assisted living facility *Travel in the last 8 weeks: None Family Hx:: Diabetes, Heart Attack, Hypertension Meds Home Medications Medication Instructions Recorded Confirmed Type atorvastatin 20 mg tablet 20 mg PO DAILY 90 Days #90 tab 05/13/18 01/24/20 History clopidogrel 75 mg tablet 75 mg PO DAILY 90 Days #90 tab 05/13/18 01/24/20 History fluticasone propionate 50 1 spray INTRANASAL DAILY 30 Days 05/13/18 01/24/20 History mcg/actuation nasal #16 g spray,suspension furosemide 20 mg tablet 20 mg PO BID 90 Days #90 tab 05/13/18 01/25/20 History hydroxyzine HCl 25 mg tablet 25 mg PO BID 90 Days #180 tab 05/13/18 01/24/20 History bupropion HCl 150 mg tablet,12 hr 150 mg PO BID 90 Days #180 each
[2020-01-26 11:48] LABS: POC Glucose,Bedside 294 (70-110)
--- NOTE | 2020-01-26 13:44 | HMH.ACPN2 ---
Internal Medicine - PN: Subj *Date: 01/26/20 *Time: 08:00 Interval history: pt sitting up in chair states no c/o hr elevated 120-130 Exam Vital signs and Labs for Last 24 Hours: Temp Pulse Resp BP Pulse Ox 98.2 F 118 H 20 92/57 L 91 L 01/26/20 08:00 01/26/20 11:01 01/26/20 08:00 01/26/20 08:00 01/26/20 11:01 Laboratory Results - last 24 hr 01/25/20 16:45: POC Glucose 312 H* 01/25/20 21:29: POC Glucose 264 H 01/26/20 06:05: POC Glucose 182 H 01/26/20 06:50: WBC 22.4 H*, RBC 3.53 L, Hgb 10.2 L, Hct 34.3 L, MCV 97.0, MCH 28.8, MCHC 29.7 L, RDW 13.4, Plt Count 558 H, MPV 7.4, Neut % (Auto) 88.9 H, Lymph % (Auto) 7.1 L, [place] % (Auto) 3.7, Eos % (Auto) 0.1, Baso % (Auto) 0.1, Neut # (Auto) 19.9 H, Lymph # (Auto) 1.6, [place] # (Auto) 0.8, Eos # (Auto) 0.0, Baso # (Auto) 0.0, Total Counted 100, Neutrophils % (Manual) 92 H, Lymphocytes % (Manual) 4 L, Monocytes % (Manual) 4, Platelet Estimate Moderate increase, RBC Morphology Normal 01/26/20 06:50: Sodium 138, Potassium 3.6, Chloride 100, Carbon Dioxide 30, Anion Gap 11.6, BUN 18 H D, Creatinine 0.80, Estimated Creat Clear 65, Estimated GFR 71, Est GFR ( Amer) 86, Glucose 157 H, Calcium 9.0 01/26/20 11:40: POC Glucose 294 H I & O for Last 24 hours: Intake & Output 01/24/20 01/25/20 01/26/20 01/27/20 11:59 11:59 11:59 11:59 Intake Total 2201 / 2201 1958 / 1958 Output Total 550 / 550 900 / 900 Balance 1651 / 1651 1058 / 1058 Weight 164 lb 2 oz 170 lb 6 oz Microbiology Reports for the Last 24 Hours: Microbiology 01/25/20 12:50 Sputum - Expectorated Sputum Gram Stain - Final - Constitutional no acute distress - *Routine HEENT Exam Head: Present: normocephalic Eye: Present: PERRL ENT: Present: mucous membranes moist - *Routine Neck Exam Present: supple. Absent: lymphadenopathy - *Routine Respiratory Exam Present: rhonchi - *Routine Cardiovascular Exam Present: RRR - *Routine Abdominal Exam Present: soft, normoactive bowel sounds. Absent: tenderness - *Routine Extremities Exam Absent: cyanosis, clubbing, edema - *Routine Skin Exam Present: warm. Absent: rash - *Routine Neurological Exam Present: alert, oriented X3 - Routine Psychiatric Exam Present: normal affect Assessment and Plan (1) Acute respiratory failure with hypoxia Status: Acute Category: Medical Code(s): J96.01 - Acute respiratory failure with hypoxia (2) Gastroenteritis Status: Acute Category: Medical Code(s): K52.9 - Noninfective gastroenteritis and colitis, unspecified (3) SIRS (systemic inflammatory response syndrome) Status: Acute Category: Medical Code(s): R65.10 - Systemic inflammatory response syndrome (SIRS) of non-infectious origin without acute organ dysfunction (4) Sepsis Status: Acute Qualifiers: Sepsis type: sepsis due to unspecified organism Sepsis acute organ dysfunction status: without acute organ dysfunction Qualified Code(s): A41.9 - Sepsis, unspecified organism Category: Medical Code(s): A41.9 - Sepsis, unspecified organism (5) Tobacco use Status: Acute Category: Social Hx Code(s): Z72.0 - Tobacco use (6) Tachycardia with heart rate 100-120 beats per minute Status: Acute Category: Medical Code(s): R00.0 - Tachycardia, unspecified (7) Tachycardia with heart rate 121-140 beats per minute Status: Acute Category: Medical Code(s): R00.0 - Tachycardia, unspecified (8) Coronary artery disease due to type 2 diabetes mellitus Status: Acute Category: Medical Code(s): E11.59 - Type 2 diabetes mellitus with other circulatory complications; I25.10 - Atherosclerotic heart disease of [place] coronary artery without angina pectoris - Assessment and plan all Dx Assessment and Plan for all problems:: rounded with dr arredondo all orders per dr arredondo cardiology consult
--- NOTE | 2020-01-26 19:00 | PC.NURSE ---
A&OX4. PT HAS TOLERATED ROOM AIR WELL THROUGHOUT SHIFT. RESPIRATIONS REGULAR AND UNLABORED. EXPIRATORY WHEEZES NOTED THROUGHOUT. OCCASIONAL PRODUCTIVE COUGH NOTED. HAND CLEANER LABORATORY EQUIPMENT EQUAL. +2 PULSES NOTED THROUGHOUT. ACTIVE BOWEL SOUNDS HEARD IN ALL 4 QUADRANTS. SOFT AND NONTENDER ABDOMEN. NO BM THIS SHIFT BUT REPORTS FLUTUS AND GAS IN HER STOMACH. PT VOIDS PER TOILET WITH STANDBY ASSIST. CLEAR YELLOW URINE NOTED. NO REPORTS OF PAIN OR SOB THROUGHOUT SHIFT. PT HAS REMAINED ON TELE. SINUS TACHYCARDIA NOTED. PT HAS BEEN UP MOVING AROUND THE ROOM IN HER WHEELCHAIR OR UP TO THE CHAIR MOST OF THE DAY. NONPITTING EDEMA NOTED TO BUE. +2 PITTING EDEMA NOTED TO BLE. PT HAS BEEN ENCOURAGED TO ELEVATE HER FEET MUCH POSSIBLE. NS INFUSING AT 50ML/HR. IV IN RAC WENT BAD AND A NEW ONE WAS INSERTED IN LAC. PT CURRENTLY IN HER WHEELCHAIR. CALL LIGHT WITHIN REACH. VSS. WILL CONTINUE TO MONITOR.
--- NOTE | 2020-01-26 22:00 | PC.NURSE ---
2100 COURTESY ROUND PT AWAKE . PT STATED NO NEEDS AT THIS TIME. TRASH EMPTIED.
[2020-01-26 22:24] LABS: POC Glucose,Bedside 316 (70-110)
[2020-01-26 22:24] LABS: POC Glucose,Bedside 287 (70-110)
[2020-01-27] VITALS: BP 136/62; PULSE 104; PULSE 110; RESP 22; TEMP 36.7; O2SAT 93
[2020-01-27 04:00] VITALS: PULSE 120
--- NOTE | 2020-01-27 04:16 | PC.NURSE ---
INTERMITTENT COUGH NOTED WITH INSPIRATORY WHEEZES T/O BILAT LUNGS. PT. HAS NOT C/O SOA, DIZZINESS, N/V/D OR PAIN. PT. DEMONSTRATED CORRECT USE OF INCENTIVE SPIROMETER. HR AT REST: 100-120; HR WITH ACTIVITY: 110-135.
[2020-01-27 05:00] VITALS: BMI 31.5
[2020-01-27 05:21] VITALS: BP 135/68; PULSE 102; RESP 16; TEMP 36.6; O2SAT 93
[2020-01-27 06:48] LABS: POC Glucose,Bedside 179 (70-110)
[2020-01-27 06:52] VITALS: PULSE 91; PULSE 97; O2SAT 96
[2020-01-27 06:59] LABS: Basophils # 0.1 K/mm3 (0-0.2); Basophils % 0.4 % (0.1-2.0); Eosinophils % 0.1 % (0.1-12.0); Hematocrit 32.9 % (37.0-47.0); Hemoglobin 10.6 g/dL (12.2-16.2); Lymphocytes # 2.9 K/mm3 (0.7-4.5); Lymphocytes % 14.2 % (10-50); Mean Corpuscular HGB Conc 32.3 g/dL (31.8-35.4); Mean Corpuscular Hemoglobin 30.5 pg (27.0-31.2); Mean Corpuscular Volume 94.3 fl (81-99); Mean Platelet Volume 8.2 fl (7.4-10.4); Monocytes % 4.7 % (1.7-9.3); Neutrophils # 16.3 K/mm3 (1.8-7.8); Neutrophils % 80.6 % (37.0-80.0); Platelet Count 592 K/mm3 (142-424); Red Blood Count 3.49 M/mm3 (4.20-5.40); Red Cell Distribution Width 14.2 % (11.5-17.5); White Blood Count 20.2 K/mm3 (4.8-10.8)
[2020-01-27 07:04] LABS: Chloride 101 mmol/L (98-107); Potassium 3.9 mmoL/L (3.5-5.1); Sodium 137 mmol/L (136-145)
[2020-01-27 07:07] LABS: Blood Urea Nitrogen 16 mg/dl (7-17); Creatinine Clearance Estimated 63 mL/min (50-200); Estimated Glomerular Filt Rate 83 ml/min (>60); GFR (African American) 100 ML/MIN (>60)
[2020-01-27 07:08] LABS: Anion Gap 7.9 mEq/L (5-15); Carbon Dioxide 32 mmol/L (22.0-30.0); Glucose 149 mg/dl (74-100)
[2020-01-27 07:09] LABS: MANUAL DIFFERENTIAL MANUAL DIFFERENTIAL (MANUAL DIFF)
[2020-01-27 08:00] VITALS: BP 145/62; PULSE 109; PULSE 110; RESP 20; TEMP 36.7; O2SAT 95
--- NOTE | 2020-01-27 09:05 | HMH.DCSUM ---
General - General Admission date:: 01/24/20 Discharge date: 01/27/20 HPI HPI: This is a 69-year-old female presenting to the emergency department with nausea, diarrhea, cough and low-grade fever. Patient has had the symptoms for the last week. She states the diarrhea is slightly getting better. It is clear in nature. No blood or mucus. She was not having any associated abdominal discomfort. Patient started having some runny nose over the last few days. She started having some low-grade fevers as well. She denies any headache or change in vision. She is not having any focal weakness. No back pain. She denies any extremity injuries. No chest pain or shortness of breath. No palpitations. In the emergency department white blood cell count was 27.5, H/H 13.3/40.8, platelets 518. Sodium 133, potassium 3.4 BUN 17, and creatinine 0.9. Lipase was 30, AST 40, ALT 31 Interestingly procalcitonin 0.40, SARS-COV-2 IgG negative, SARS-COV-2 IgM negative. She received ceftriaxone, doxycycline IV and 1 L normal saline in the emergency department This morning she is sitting up in bed oxygen saturations 96% on 2 L she reports she is feeling a little better but she is still tired and short of breath. Consulted pulmonology 01/24/2020 chest x-ray: FINDINGS: The cardiomediastinal silhouette and pulmonary vascularity are within normal limits. There is dense consolidation in the right lower lobe consistent with pneumonia. Recommend following till clear to exclude the possibility of postobstructive pneumonia. The left lung is clear . There are degenerative changes in the shoulders right greater than left. There is severe right-sided subacromial stenosis consistent with rotator cuff tear. IMPRESSION: Right lower lobe pneumonia. Recommend follow-up till clear Dictated by: Quentin, 01/24/20 abdomen/pelvis CT: IMPRESSION: 1. Dense consolidation in the right middle lobe consistent with pneumonia also with pneumonia in the right lower lobe 2. There are 2 abdominal wall hernias 1 which is 6 cm superior to the umbilicus and 1 at the umbilicus both containing fat. 3. Thickening of the transverse and descending colon which could be due to nondistention or colitis. Scattered air-fluid levels within the small bowel nonspecific. 4. Sigmoid diverticulosis with mild stranding of the pericolic fat. Much of the sigmoid colon is obscured by artifact. Diverticulitis is a consideration. No obvious abscess or pneumoperitoneum. There is extensive streak artifact of the pelvis from bilateral hip prosthesis Dictated by: Quentin Hospital Course Hospital Course: Laboratory Tests 01/24/20 01/24/20 01/24/20 18:00 18:00 18:00 WBC 27.5 H* RBC 4.43 Hgb 13.3 Hct 40.8 MCV 92.0 MCH 29.9 MCHC 32.5 RDW 17.0 Plt Count 518 H MPV 21.8 H Neut % (Auto) 86.6 H Lymph % (Auto) 8.6 L [place] % (Auto) 4.5 Eos % (Auto) 0.2 Baso % (Auto) 0.4 Neut # (Auto) 23.8 H Lymph # (Auto) 2.4 [place] # (Auto) 1.2 H Eos # (Auto) 0.1 Baso # (Auto) 0.1 Total Counted 100 Neutrophils % (Manual) 91 H Lymphocytes % (Manual) 7 L Monocytes % (Manual) 2 Platelet Estimate Slight increase RBC Morphology Normal O2 % ABG pH ABG pCO2 ABG pO2 ABG HCO3 ABG Total CO2 ABG O2 Saturation ABG Base Excess Sodium 133 L Potassium 3.4 L Chloride 91 L Carbon Dioxide 31 H Anion Gap 14.4 BUN 17 Creatinine 0.90 Estimated Creat Clear 63 Estimated GFR 62 Est GFR ( Amer) 75 Glucose 160 H POC Glucose Lactate Calcium 9.2 Magnesium Total Bilirubin 0.5 AST 40 H ALT 31 Alkaline Phosphatase 100 Troponin I Total Protein 7.3 Albumin 3.7 Globulin 3.6 H Albumin/Globulin Ratio 1.0 L Triglycerides Cholesterol LDL Cholesterol Direct VLDL Cholesterol HDL Cholesterol Cholester
--- NOTE | 2020-01-27 09:36 | SW/DCPLANNER ---
Addendum entered by Evelyn Guzman 01/27/20 10:56: Melly with [facility] has called stating that patient information has been reviewed and services will begin on Monday 01/29 for this patient. Patient will discharge home today. Original Note: This patient will discharge home today. Patient has requested home health services and has used [facility] in the past. Patient information and order has been faxed to [facility]. I will follow up with [facility] once patient information is reviewed. Patient will discharge home today. Patient RA is 95%. Patient stated that she will have transportation home at time of discharge.
[2020-01-27 09:37] LABS: Lymphocytes % 16 % (10-50); Monocytes % 7 % (2-9); Neutrophils % 77 % (42-76); Platelet Estimate Moderate Increase; RBC Morphology Normal; Total Cells Counted 100
--- NOTE | 2020-01-27 09:57 | HMH.PULMPN ---
Internal Medicine - PN: Subj *Date: 01/27/20 *Time: 09:57 Interval history: No acute respiratory events overnight Exam - Constitutional Constitutional:: no acute distress, comfortable - HENMT Exam HENMT: normocephalic, atraumatic - Eye Exam Eyes:: normal appearance both eyes and related structures - Neck Exam Neck:: normal visual inspection, thyroid normal, no lymphadenopathy - Respiratory Exam Respiratory:: able to speak in complete sentences, no respiratory distress Comments: Right lower lobe crackles - Cardiovascular Exam Cardiac:: regular rhythm, S1, S2 - GI Exam GI:: soft, no hepatosplenomegaly - Neurological Exam Neurological: alert, normal cognition - Extremities Exam Extremities: no cyanosis, no clubbing Assessment and Plan (1) Acute respiratory failure with hypoxia Status: Acute Category: Medical Code(s): J96.01 - Acute respiratory failure with hypoxia (2) Gastroenteritis Status: Acute Category: Medical Code(s): K52.9 - Noninfective gastroenteritis and colitis, unspecified (3) SIRS (systemic inflammatory response syndrome) Status: Acute Category: Medical Code(s): R65.10 - Systemic inflammatory response syndrome (SIRS) of non-infectious origin without acute organ dysfunction (4) Sepsis Status: Acute Qualifiers: Sepsis type: sepsis due to unspecified organism Sepsis acute organ dysfunction status: without acute organ dysfunction Qualified Code(s): A41.9 - Sepsis, unspecified organism Category: Medical Code(s): A41.9 - Sepsis, unspecified organism (5) Tobacco use Status: Acute Category: Social Hx Code(s): Z72.0 - Tobacco use (6) Tachycardia with heart rate 100-120 beats per minute Status: Acute Category: Medical Code(s): R00.0 - Tachycardia, unspecified (7) Tachycardia with heart rate 121-140 beats per minute Status: Acute Category: Medical Code(s): R00.0 - Tachycardia, unspecified (8) Coronary artery disease due to type 2 diabetes mellitus Status: Acute Category: Medical Code(s): E11.59 - Type 2 diabetes mellitus with other circulatory complications; I25.10 - Atherosclerotic heart disease of [place] coronary artery without angina pectoris - Assessment and plan all Dx Assessment and Plan for all problems:: #Community-acquired pneumonia: #COPD exacerbation: #Acute hypoxic respiratory failure: 69-year-old female significant smoking history diagnosis COPD on Dulera and albuterol inhaler presented with worsening fevers chills and productive phlegm and chest x-ray showed right lower lobe pulmonary infiltrate. ABG on admission showed metabolic acidosis. COVID-19 PCR negative. Patient was initiated on Treatment with ceftriaxone azithromycin along with prednisone for COPD exacerbation, patient respiratory status significantly improved Gram stain few gram-positive cocci in pairs. Patient still having persistent leukocytosis despite improvement on her respiratory status. Blood cultures no growth 48 hours. No urinalysis available. Plan: -De-escalate Abx to levofloxacin on discharge for a total duration of 5 days -Prednisone 40 mg for total of 5 days -Follow with final sputum cultures -DuoNebs every 6 hours scheduled along with budesonide every 12 schedule, please discharge the patient on triple inhaler therapy -Incentive spirometry 4-6 times a day -We will follow the patient in 6 weeks post discharge with full PFTs, CXR-2 views and 6-minute walk testing #History of TB exposure: Patient admits significant exposure to active TB, her father and her uncle of TB infection. Patient also stated her PPD skin testing one positive when she was in high school. Patient now denies any fevers, weight loss, hemoptysis Plan: - F/U TB quantiferon testing, collected on 01/26/2020 (if testing is positive will evaluate the need for latent TB treatment on her follow-up clinic visit) -We will follow the patient in 6 weeks post discharge with full PFTs, 6-min
--- NOTE | 2020-01-27 12:39 | PC.NURSE ---
D/c instructions given to pt prior to d/c. Also, spoke with care management and home health was being ordered for pt.
[2020-01-31 10:51] LABS: QuantiFERON-TB Gold Plus Indeterminate (Negative)
== END 2020-01-27 11:31 | disposition home or self-care (01) | DRG 193 ==
LOC: ER 21:28 → 2ND 01-25 06:34
PROVIDERS: Internal Medicine Pulmonary Disease; Nurse Practitioner Family; Admitting Provider Emergency Medicine; Emergency Provider Emergency Medicine; PCP Family Medicine; Visit Provider Emergency Medicine
DX: J96.01 Acute respiratory failure with hypoxia (principal); J18.9 Pneumonia, unspecified organism; J44.1 Chronic obstructive pulmonary disease with (acute) exacerbation; R65.10 Systemic inflammatory response syndrome (SIRS) of non-infectious origin without acute organ dysfunction; I11.0 Hypertensive heart disease with heart failure; I50.9 Heart failure, unspecified; K52.9 Noninfective gastroenteritis and colitis, unspecified; E11.40 Type 2 diabetes mellitus with diabetic neuropathy, unspecified; Z95.5 Presence of coronary angioplasty implant and graft; I25.10 Atherosclerotic heart disease of native coronary artery without angina pectoris; Z88.8 Allergy status to other drugs, medicaments and biological substances; Z79.51 Long term (current) use of inhaled steroids; Z79.02 Long term (current) use of antithrombotics/antiplatelets; Z79.82 Long term (current) use of aspirin; Z79.84 Long term (current) use of oral hypoglycemic drugs; Z79.899 Other long term (current) drug therapy
CPT/HCPCS: 36415; 71045; 74177; 80048; 80053; 80061; 82803; 82962; 83605; 83690; 83735; 84145; 84484; 85007; 85025; 86328; 86480; 87040; 87070; 87205; 93005; 93306; 94640; 94761; 96367; 96374; 96375; 99284; J0456; J2405; Q9967

== ENCOUNTER → 2020-02-27 14:14 | Outpatient (CLI) | payer MEDICARE, MEDICAID, SELFPAY ==
[2020-02-27 15:15] VITALS: PULSE 92; PULSE 94
== END ==
PROVIDERS: PCP Family Medicine; Visit Provider Internal Medicine Pulmonary Disease
DX: J96.01 Acute respiratory failure with hypoxia (principal)
CPT/HCPCS: 94060; 94640; 94726; 94729

== ENCOUNTER → 2020-03-13 11:43 | Outpatient (CLI) | payer MEDICARE, MEDICAID, SELFPAY ==
--- NOTE | 2020-03-13 11:48 | XR_ITS ---
PROCEDURE: XR CHEST 2V CLINICAL HISTORY: Pneumonia follow-up COMPARISON: CR CXR1 CHEST-PORTABLE from 11/14/2014 CR CXR CHEST(2 VIEWS-NOT PORTABLE) from 11/23/2014 CR XR CHEST PORTABLE from 01/24/2020 FINDINGS: The cardiomediastinal silhouette and pulmonary vascularity are within normal limits. The lungs are clear without infiltrates, suspicious nodules, or pleural effusions. Right lower lobe pneumonia has improved. No acute bony findings. IMPRESSION: Improved right lower lobe pneumonia Dictated by: Keenan Saavedra MD 03/13/2020 16:02 Keenan Saavedra MD in [place] 03/13/2020 16:02
== END ==
PROVIDERS: PCP Family Medicine; Visit Provider Internal Medicine Pulmonary Disease
DX: J44.9 Chronic obstructive pulmonary disease, unspecified (principal)
CPT/HCPCS: 71046

== ENCOUNTER → 2020-05-16 14:23 | Outpatient (CLI) | payer MEDICARE, MEDICAID, SELFPAY ==
--- NOTE | 2020-05-16 14:24 | CT_ITS ---
PROCEDURE: CT LUNG SCREENING CLINICAL INDICATION: LDCT Pt states she quit smoking in 2020 50 pack year smoking history Copd, emphysemia, cad, chf No prior COMPARISON: No exams were available for comparison TECHNIQUE: The exam was performed on a [employer] Speed [address] scanner using 2.90 mGy CTDI. A low dose helical CT CHEST was performed on a multi-detector scanner. All CT scans at the facility use one or more dose reduction, viz: automated exposure control, ma/kV adjustment per patient size (including targeted exams where dose is matched to indication, i.e. head), or iterative reconstruction technique. The LDCT was performed in a facility that meets the criteria for the screening program. Data regarding this exam was submitted to ACR which is an approved registry. The order for this exam indicates that it came as a result of a lung cancer screening counseling shard decision-making visit that included all the elements required of such a visit including smoking cessation. The radiologist interpreting this exam meets the [facility] criteria for the LDCT lung cancer screening program. The exam is reported using the Lung-RADS classification scale and reported to the ACR registry. NOTE: This study was performed for the specific purposes of lung cancer screening and is not an alternative to diagnostic chest CT. RADIATION DOSE: CTDI vol(CT dose Index-volume) = 2.90mG DLP (Dose Length Product) = 95.08 mGcm FINDINGS: COPD with scattered areas of scarring and evidence of old granulomatous disease. Atelectatic or fibrotic changes are present in the right middle lobe OTHER FINDINGS: Severe coronary artery calcification noted IMPRESSION: Lung-RADS Category 1 Negative Follow-up: Continue annual screening with LDCT in 12 months Dictated by: Keenan Saavedra MD 05/21/2020 09:33 Keenan Saavedra MD in [facility] 05/21/2020 09:33
== END ==
PROVIDERS: PCP Family Medicine; Visit Provider Internal Medicine Pulmonary Disease
DX: Z87.891 Personal history of nicotine dependence (principal); Z12.2 Encounter for screening for malignant neoplasm of respiratory organs
CPT/HCPCS: 71271

== ENCOUNTER 2020-10-31 08:44 | Emergency (ER) | payer MEDICARE, MEDICAID, SELFPAY ==
[2020-10-31 08:45] VITALS: BP 124/62; PULSE 80; RESP 18; TEMP 37.1; O2SAT 95; BMI 31.5
--- NOTE | 2020-10-31 09:06 | XR_ITS ---
PROCEDURE: XR CHEST AP CLINICAL HISTORY: weakness COMPARISON: CR CXR CHEST(2 VIEWS-NOT PORTABLE) from 11/23/2014 CR XR CHEST PORTABLE from 01/24/2020 CR XR CHEST 2V from 03/13/2020 FINDINGS: Mild cardiomegaly without failure. Atherosclerotic calcification of the aortic knob The lungs are clear without infiltrates, suspicious nodules, or pleural effusions. Severe subacromial stenosis of the right acromioclavicular joint consistent with rotator cuff tear IMPRESSION: No acute findings. Dictated by: Keenan Saavedra MD 10/31/2020 10:10 Keenan Saavedra MD in [place] 10/31/2020 10:10
[2020-10-31 09:16] LABS: Chloride 102 mmol/L (98-107); Potassium 4.9 mmoL/L (3.5-5.1); Sodium 139 mmol/L (136-145)
[2020-10-31 09:19] LABS: Alanine Aminotransferase 16 U/L (12-78); Albumin Level 3.5 g/dl (3.5-5.0); Albumin/Globulin Ratio 1.3 (1.1-1.8); Alkaline Phosphatase 90 U/L (38-126); Anion Gap 12.9 mEq/L (5-15); Aspartate Amino Transferase 27 U/L (14-36); Bilirubin,Total 0.3 mg/dl (0.2-1.3); Blood Urea Nitrogen 14 mg/dl (7-17); Calcium 8.9 mg/dl (8.4-10.2); Carbon Dioxide 29 mmol/L (22.0-30.0); Creatinine Clearance Estimated 63 mL/min (50-200); Estimated Glomerular Filt Rate 71 ml/min (>60); GFR (African American) 86 ML/MIN (>60); Globulin 2.8 g/dL (1.3-3.2); Glucose 125 mg/dl (74-100); Total Protein,Serum 6.3 g/dl (6.3-8.2)
[2020-10-31 09:29] VITALS: PULSE 79; O2SAT 93
[2020-10-31 09:30] VITALS: BP 116/69; PULSE 79; O2SAT 92
--- NOTE | 2020-10-31 09:30 | PC.NURSE ---
XR at bedside.
[2020-10-31 09:34] LABS: Basophils # 0.1 K/mm3 (0-0.2); Basophils % 0.7 % (0.1-2.0); Eosinophils # 0.3 K/mm3 (0.0-0.4); Eosinophils % 3.4 % (0.1-12.0); Hematocrit 37.7 % (37.0-47.0); Hemoglobin 11.9 g/dL (12.2-16.2); Lymphocytes # 1.7 K/mm3 (0.7-4.5); Lymphocytes % 17.9 % (10-50); Mean Corpuscular HGB Conc 31.5 g/dL (31.8-35.4); Mean Corpuscular Hemoglobin 30.6 pg (27.0-31.2); Mean Corpuscular Volume 97.2 fl (81-99); Mean Platelet Volume 7.3 fl (7.4-10.4); Monocytes # 0.7 K/mm3 (0.1-1.0); Monocytes % 7.1 % (1.7-9.3); Neutrophils # 6.7 K/mm3 (1.8-7.8); Neutrophils % 71.1 % (37.0-80.0); Platelet Count 384 K/mm3 (142-424); Red Blood Count 3.88 M/mm3 (4.20-5.40); Red Cell Distribution Width 14.7 % (11.5-17.5); White Blood Count 9.5 K/mm3 (4.8-10.8)
[2020-10-31 09:45] VITALS: PULSE 67; O2SAT 89
--- NOTE | 2020-10-31 09:54 | HMH.EDWEAK ---
ED Disposition Clinical Impression: Weakness Disposition: Home, Self-Care Condition on Discharge: Good Referrals: Dante Hutchinson MD [Primary Care Provider] - - Critical Care Critical Care Time: No Attestation: On 10/31/20, the high probability of a clinically significant, sudden or life threatening deterioration of the following system(s) required my full and direct attention, intervention and personal management. The time I documented below is in addition to time spent performing reported procedures but includes the following listed in this critical care notation. Medical Decision Making - Medical Records MR Comment: Was noted that her blood pressure on arrival was on the low side systolic. She was given 1 L of IV fluid and it went up to 120 systolic. Her symptoms resolved after she received 1 L of IV fluid. Her labs were normal. - [place] Inquiry Pt receiving controlled substance: No [place] was queried for this patient: No Vital Signs: 10/31/20 08:45 10/31/20 09:29 Temperature 98.7 F Temperature Source Oral Pulse Rate 79 Pulse Rate [Right] 80 Respiratory Rate 18 Blood Pressure [Right Arm] 124/62 Blood Pressure Mean [Right Arm] 82 02 Sat by Pulse Oximetry 95 93 L Oxygen Delivery Method Room Air - Lab Data Lab Results 10/31/20 08:51: WBC 9.5, RBC 3.88 L, Hgb 11.9 L, Hct 37.7, MCV 97.2, MCH 30.6, MCHC 31.5 L, RDW 14.7, Plt Count 384, MPV 7.3 L, Neut % (Auto) 71.1, Lymph % (Auto) 17.9, [place] % (Auto) 7.1, Eos % (Auto) 3.4, Baso % (Auto) 0.7, Neut # (Auto) 6.7, Lymph # (Auto) 1.7, [place] # (Auto) 0.7, Eos # (Auto) 0.3, Baso # (Auto) 0.1 10/31/20 08:51: Sodium 139, Potassium 4.9, Chloride 102, Carbon Dioxide 29, Anion Gap 12.9, BUN 14, Creatinine 0.80, Estimated Creat Clear 63, Estimated GFR 71, Est GFR ( Amer) 86, Glucose 125 H, Calcium 8.9, Total Bilirubin 0.3, AST 27, ALT 16, Alkaline Phosphatase 90, Total Protein 6.3, Albumin 3.5, Globulin 2.8, Albumin/Globulin Ratio 1.3 Result diagrams: 10/31/20 08:51 10/31/20 08:51 Orders (Tests/Meds): ED MEDICATIONS Generic Name Dose Route Start Last Admin Trade Name Aleshia PRN Reason Stop Dose Admin Sodium Chloride 1,000 mls @ 999 mls/hr 10/31/20 09:15 10/31/20 09:36 Sod Chlor 0.9% 1000ml Bag IV 10/31/20 10:15 999 mls/hr .[id number] SARAH Administration ORDERS Category Date Time Status Chest XR AP view [XR chest AP] Stat Exams 10/31/20 09:06 Taken Weakness HPI - General Chief complaint: Weakness Stated complaint: shaking all night Time Seen by Provider: 10/31/20 09:54 Mode of Arrival: EMS Limitations: No Limitations Description of Symptoms (Recalled from ER Triage Doc. by RN): c/o 'shaking all over' since 10pm last night, states this has been intermittent over the past 6 months. also c/o burning sensation behind left eye last night, denies currently - History of Present Illness HPI Narrative: Patient is 70-year-old female who woke up this morning feeling weak and shaky. She denied any fever or chills. She denied any headache. She denied any chest pain. She denied any abdominal pain. She denied any shortness of breath. She denied any urinary symptoms. She has normal appetite. She denied any nausea or vomiting. She takes Metformin daily. Also she takes blood pressure medications. She smokes half pack per day. She denies any cough or shortness of breath. Patient smokes half pack per day of cigarettes. She has nebulizer machine to be used as needed. She denies any shortness of breath. MD Complaint: generalized weakness Onset (ago): hour(s) Duration: intermittent Location: generalized Migration: none Severity: mild Severity scale (1-10): 2 Relieving factors: none Exacerbating factors: none Context: new medication Associated symptoms: denies other symptoms - Related Data Home Medications Medication Instructions Recorded Confirmed atorvastatin 20 mg tablet 20 mg PO DAILY 90 Days #90 tab 05/13/18
[2020-10-31 10:28] VITALS: PULSE 75; PULSE 79
[2020-10-31 10:43] VITALS: BP 103/72; PULSE 78; RESP 20; TEMP 36.4; O2SAT 98
== END 2020-10-31 11:20 | disposition home or self-care (01) ==
PROVIDERS: Emergency Provider Internal Medicine; PCP Family Medicine
DX: R53.83 Other fatigue (principal); I10 Essential (primary) hypertension; E11.9 Type 2 diabetes mellitus without complications; I50.9 Heart failure, unspecified; E78.5 Hyperlipidemia, unspecified; F17.210 Nicotine dependence, cigarettes, uncomplicated; Z79.899 Other long term (current) drug therapy
CPT/HCPCS: 71045; 80053; 85025; 87070; 87205; 96365; 99283

== ENCOUNTER → 2021-01-07 09:55 | Outpatient (CLI) | payer MEDICARE, MEDICAID, SELFPAY ==
[2021-01-07 10:00] LABS: Microscopic, Urine URINE MICROSCOPIC (MICROSCOPIC)
[2021-01-07 13:54] LABS: Hematocrit 44.2 % (37.0-47.0); Hemoglobin 13.4 g/dL (12.2-16.2); Mean Corpuscular HGB Conc 30.3 g/dL (31.8-35.4); Mean Corpuscular Hemoglobin 31.5 pg (27.0-31.2); Mean Corpuscular Volume 103.8 fl (81-99); Platelet Count 396 K/mm3 (142-424); Red Blood Count 4.26 M/mm3 (4.20-5.40); Red Cell Distribution Width 13.5 % (11.5-17.5); White Blood Count 8.4 K/mm3 (4.8-10.8)
[2021-01-07 14:12] LABS: Alanine Aminotransferase 19 U/L (12-78); Albumin Level 3.5 g/dl (3.5-5.0); Albumin/Globulin Ratio 1.3 (1.1-1.8); Alkaline Phosphatase 84 U/L (38-126); Anion Gap 9.4 mEq/L (5-15); Aspartate Amino Transferase 22 U/L (14-36); Bilirubin,Total 0.3 mg/dl (0.2-1.3); Blood Urea Nitrogen 9 mg/dl (7-17); Calcium 9.5 mg/dl (8.4-10.2); Carbon Dioxide 32 mmol/L (22.0-30.0); Chloride 100 mmol/L (98-107); Estimated Glomerular Filt Rate 99 ml/min (>60); GFR (African American) 120 ML/MIN (>60); Globulin 2.7 g/dL (1.3-3.2); Glucose 177 mg/dl (74-100); Potassium 4.4 mmoL/L (3.5-5.1); Sodium 137 mmol/L (136-145); Total Protein,Serum 6.2 g/dl (6.3-8.2)
[2021-01-07 14:16] LABS: Hemoglobin A1C 7.4 % (4.0-6.0)
[2021-01-07 14:28] LABS: Appearance,Urine CLOUDY (Clear); Bilirubin,Urine Negative (Negative); Blood, Urine Negative (Negative); Color,Urine YELLOW (Yellow); Glucose,Urine (UA) Negative (Negative); Ketones,Urine Negative (Negative); Leukocyte Esterase,Urine Negative (Negative); Nitrate,Urine Negative (Negative); Protein,Urine Negative (Negative); Specific Gravity, Urine 1.015 (1.005-1.030); Urobilinogen,Urine 0.2 EU/dl (0.2)
[2021-01-07 14:29] LABS: 25-OH Vitamin D, Total 43.8 ng/mL (30-100)
[2021-01-07 14:47] LABS: Creatinine,Urine Random 44 mg/dL (Not Estab.)
[2021-01-07 15:35] LABS: Bacteria,Urine Trace /lpf; RBC,Urine Occasional #/hpf (0-3)
== END ==
PROVIDERS: Visit Provider Internal Medicine Nephrology
DX: N17.9 Acute kidney failure, unspecified (principal); N18.2 Chronic kidney disease, stage 2 (mild); I12.9 Hypertensive chronic kidney disease with stage 1 through stage 4 chronic kidney disease, or unspecified chronic kidney disease; E11.9 Type 2 diabetes mellitus without complications; E55.9 Vitamin D deficiency, unspecified; Z79.84 Long term (current) use of oral hypoglycemic drugs
CPT/HCPCS: 36415; 80053; 81001; 82306; 82570; 83036; 83970; 84155; 84550; 85014; 85018; 85048; 85049

== ENCOUNTER → 2021-05-16 14:53 | Outpatient (CLI) | payer MEDICARE, MEDICAID, SELFPAY ==
--- NOTE | 2021-05-16 14:53 | CT_ITS ---
FINAL REPORT CLINICAL HISTORY: lung cancer screening COMPARISON: May 16, 2020 FINDINGS: Low-Dose Chest CT CTDI vol (mGy): 2.90 DLP (mGy-cm): 92.21 Axial images were obtained from the lung apex to the mid abdomen by computed tomography. Low-dose protocol was utilized. FINDINGS: CHEST: There is no axillary adenopathy. There is no hilar adenopathy. There are a few small mediastinal lymph nodes which is similar to previous. The heart is proper size. There is dense calcification in the aortic arch. There is no pericardial or pleural effusion. Limited images of the upper abdomen are unremarkable. Lung window images demonstrate interval development of a nodule in the right lower lobe measuring 1.1 cm. This is well seen on image 55 of series 601 and image 61 of series 3. IMPRESSION: Lung RADS category 4B. This is highly concerning for neoplasia. Consider PET scan or CT needle biopsy. Reviewed, Interpreted and Dictated by Haroon Osborn MD Transcribed by Shyla Camargo Authenticated by Haroon Osborn MD on 05/16/2021 04:58:44 PM [facility]
== END ==
PROVIDERS: PCP Family Medicine; Visit Provider Internal Medicine Pulmonary Disease
DX: Z87.891 Personal history of nicotine dependence (principal); Z12.2 Encounter for screening for malignant neoplasm of respiratory organs
CPT/HCPCS: 71271

== ENCOUNTER → 2021-07-05 12:21 | Outpatient (CLI) | payer MEDICARE, MEDICAID, SELFPAY | PROVIDERS: PCP Family Medicine; Visit Provider Internal Medicine Pulmonary Disease | DX: Z11.52 Encounter for screening for COVID-19 (principal) | CPT/HCPCS: C9803; U0003; U0005 ==

== ENCOUNTER 2021-07-08 15:52 | Observation (INO) | payer MEDICARE, MEDICAID, SELFPAY ==
[2021-07-04 14:24] VITALS: BMI 31.1
[2021-07-08] VITALS (32 sets, daily range): BP systolic 118–172; BP diastolic 59–99; PULSE 84–104; RESP 14–22; TEMP 36.1–37; O2SAT 83–99; BMI 31.6
--- NOTE | 2021-07-08 09:34 | HMH.ANESCL ---
[facility] Anesthesia Checklist - Patient Identification Patient Identification: Arm Band - Structural Data Admitted From: Home Planned Operative Procedure/s: Bronchoscopy, EBUS, Transbronchial Bx Consent for Planned Operative Procedure(s) Verified: Yes Verified Documents: Surgical Consent, History and Physical, Cardiac Clearance - NPO Status Verified Time NPO: 00:00 - Additional verifications Anesthesia Reactions: No Hx Blood Transfusions: Yes Blood Transfusion Reaction: No - Airway Assessment C-Spine Mobility Assessed: Yes (mp2) TMJ Mobility Assessed: Yes Dentition: Edentulous - Neurological Assessment Level of Consciousness: Awake, Alert - Anesthesia Plan Anesthesia Risk discussed: Yes Anesthesia Plan: Verified ASA Class: III Anesthesia Type: General [facility] History I have reviewed the patient's past medical history: Yes Medical History: Reports:: Asthma, Congestive Heart Failure, Chronic Obstructive Pulmonary Disease (COPD), Deep Vein Thrombosis, Diabetes Mellitus Type 2, Hyperlipidemia, Hypertension Denies:: Cancer, Diabetes Mellitus Type 1, Internal Pacemaker, MRSA, Seizures *Have you ever received a pneumonia vaccine?: No *Have you received a flu vaccine this season?: No Other Medical History: Reports: Cataracts. Denies: Blood Transfusion Reaction Anesthesia experience/problems:: nac Laterality Cases: Bilateral: Tonsillectomy, Total Hip Replacement Other Surgeries: Yes: Cardiac Catheterization, Cholecystectomy, Colonoscopy, EGD, Hernia Repair, Hysterectomy-Total. No: Pacemaker Amputation: No Fractures: Yes - *Social History Smoking Status: Current every day smoker Tobacco Type: cigarettes # Packs/Day (cigarettes): 1 Smoking End Date: 05/2021 Alcohol Intake: never Alcohol Intake Frequency:: other Substance Use Type: denies use *Occupational Status:: retired Housing: house Household Members: none *Travel in the last 8 weeks: None Family Hx:: Diabetes, Heart Attack, Hypertension
[2021-07-08 10:01] LABS: Basophils # 0.1 K/mm3 (0-0.2); Basophils % 0.9 % (0.1-2.0); Eosinophils # 0.1 K/mm3 (0.0-0.4); Eosinophils % 1.2 % (0.1-12.0); Hematocrit 38.1 % (37.0-47.0); Hemoglobin 12.2 g/dL (12.2-16.2); Lymphocytes # 1.4 K/mm3 (0.7-4.5); Lymphocytes % 15.5 % (10-50); Mean Corpuscular HGB Conc 32.1 g/dL (31.8-35.4); Mean Corpuscular Hemoglobin 30.5 pg (27.0-31.2); Mean Platelet Volume 7.8 fl (7.4-10.4); Monocytes # 0.5 K/mm3 (0.1-1.0); Monocytes % 5.2 % (1.7-9.3); Neutrophils # 6.8 K/mm3 (1.8-7.8); Neutrophils % 77.2 % (37.0-80.0); Platelet Count 440 K/mm3 (142-424); Red Blood Count 4.01 M/mm3 (4.20-5.40); Red Cell Distribution Width 13.9 % (11.5-17.5); White Blood Count 8.8 K/mm3 (4.8-10.8)
[2021-07-08 10:09] LABS: Chloride 101 mmol/L (98-107); Potassium 4.2 mmoL/L (3.5-5.1); Sodium 136 mmol/L (136-145)
[2021-07-08 10:12] LABS: Anion Gap 9.2 mEq/L (5-15); Blood Urea Nitrogen 9 mg/dl (7-17); Carbon Dioxide 30 mmol/L (22.0-30.0); Creatinine Clearance Estimated 61 mL/min (50-200); Estimated Glomerular Filt Rate 82 ml/min (>60); GFR (African American) 100 ML/MIN (>60)
[2021-07-08 10:13] LABS: Calcium 8.1 mg/dl (8.4-10.2); Glucose 182 mg/dl (74-100)
--- NOTE | 2021-07-08 13:39 | SUR.PHASEI ---
Oral airway in place upon arrival at 1334, removed 1339 without difficulty.
--- NOTE | 2021-07-08 13:40 | HMH.ANESI ---
[facility] Anesthesia Record Part I Intake, IV Amount: 500 Estimated blood loss (mL): 10 Urine output (mL): 0 Blood Pressure: 166/93 SaO2: 93 Pulse Rate: 95 Respiratory Rate: 14 Temperature: 97 F Patient is:: Drowsy, Oral/Nasal airway Stable to PACU at:: 13:34
--- NOTE | 2021-07-08 13:45 | SUR.PHASEI ---
1334 Pt arrived to PACU with IV infiltrated in RFA. RFA swollen. IV discontinued by Jody Ambriz CRNA and warm compress applied. Continue to monitor.
--- NOTE | 2021-07-08 13:55 | SUR.PHASEI ---
Respiratory therapy at bedside for Duoneb treatment D/T Rhonci and wheezes T/O.
--- NOTE | 2021-07-08 14:14 | PC.NURSE ---
Sats have dropped into 80's on RA. Rhonci and wheezes T/O but diminished in bases. O2 at 5L per NC placed. Jody Ambriz notified and came to bedside. CXR ordered. Sats up to 90 on 5L. Pt in no distress or C/O pain.
--- NOTE | 2021-07-08 14:19 | XR_ITS ---
FINAL REPORT TECHNIQUE: Single view chest CLINICAL HISTORY: Post op bronchoscopy COMPARISON: 03/13/2020 FINDINGS: A single view of the chest was obtained. The heart and mediastinum are within normal limits. There is worsening right lung opacity which could represent atelectasis. There is also an area at the right lung base which could represent pneumonia or hemorrhage. There is no pneumothorax. Osseous structures are unremarkable. IMPRESSION: Right lung base opacity which could represent pneumonia or hemorrhage. Reviewed, Interpreted and Dictated by Shoaib Booth III, MD Transcribed by Zaina Felix Authenticated by Shoaib Booth III, MD on 07/08/2021 04:05:56 PM [facility]
--- NOTE | 2021-07-08 14:32 | PC.NURSE ---
radiology at bedside for CXR.
--- NOTE | 2021-07-08 14:55 | P.PCN_ITS ---
- Procedure: Date: 07/08/21 Patient Date of :: 1950 Procedure Performed:: Bronchoscopy with airway examination, alveolar lavage, endobronchial ultrasound guided fine-needle aspiration Indications:: Mediastinal and hilar lymphadenopathy Performing Provider:: Devon Olea MD Referring Provider:: Dante Anton Sedation:: General anesthesia Procedure:: Bronchoscopy with airway examination, alveolar lavage, endobronchial ultrasound guided fine-needle aspiration A clean therapeutic bronchoscopy was advanced the ET tube and airways were examined up to segmental bronchi. No obvious airway abnormalities noted. Copious number of mucus secretions noted that were cleared by suctioning. No evidence of bleeding or blood clots noted. BAL was performed in the left lower lobe with local of 60 cc normal saline solution with return of 35 cc fluid back that was sent for BAL differential Gram stain, AFB fungal stain and culture. BAL fluid was not sent for cytopathological examination. The therapeutic bronchoscopy was retracted and EBUS bronchoscopy was advanced and lymph node surveillance was performed. Patient noted to have lymphade nopathy at stations 11 R, 10 R and 7. EBUS FNA was performed at 10 R and station 7. Pathology at bedside. Adequate lymphoid tissue confirmed. No evidence of malignancy noted on preliminary examination. Follow in the clinic as previously scheduled. Patient tolerated the procedure well with no immediate complications. Findings:: Please see the procedure note Recommendations:: Please see the procedure note. Follow in the clinic as previously scheduled with final results. Complications:: No immediate complications Estimated blood obtained (mL): 10
--- NOTE | 2021-07-08 15:01 | PC.NURSE ---
BIPAP placed on pt and ABG drawn per telephone order per RT.
--- NOTE | 2021-07-08 15:03 | PC.NURSE ---
Pt oxygen saturation fluctuating between 84-86% on 5LNC. aware, ordered duoneb and BIPAP to be placed on pt. Orders read back and verified per ISAC Jenkins.
--- NOTE | 2021-07-08 15:06 | PC.NURSE ---
at bedside to assess patient. Oxygen saturation 92% on BIPAP (setting 05/01), b/p-153/80, rr-24, hr-100.
[2021-07-08 15:17] LABS: ABG Base Excess 4.8 mmol/L (-2.4-2.3); ABG HCO3 30.2 mmhg (22.0-26.0); ABG Oxygen Saturation 89 % (90-100); ABG PH 7.36 mmol/L (7.35-7.45); ABG PO2 56.3 mmhg (80-100); ABG TCO2 31.9 mmhg (23-27)
[2021-07-08 15:23] LABS: Allen's Test Acceptable; Oxygen 40% %; PEEP 16/10; Source Left Radial; Vent Rate 16
[2021-07-08 15:25] LABS: ABG PCO2 54.3 mmhg (35.0-45.0)
--- NOTE | 2021-07-08 15:34 | SUR.PHASEI ---
Dr. Olea notified Jack Sandoval RN that wants pt admitted. Suyapa Napier in care management notified. Dr. Olea is to speak with on-call MD, Dr. Moore. Dr. Olea notified to call Oscar.
--- NOTE | 2021-07-08 15:43 | SUR.PHASEI ---
Dr Olea notified Jack Sandoval RN that pt to be admitted to floor under Dr. Moore. Suyapa Napier notified for bed #. Await return call.
--- NOTE | 2021-07-08 15:50 | SUR.PHASEI ---
Report called to Haroon on 2nd for room 213. Son, Gage Cortes kept up to date T/O PACU stay. Verbalized understanding all.
--- NOTE | 2021-07-08 15:57 | PC.NURSE ---
Pt to room 213. stable.
--- NOTE | 2021-07-08 16:21 | P.CONPHA_ITS ---
[facility] Pharmacy VTE Monitoring - Patient Demographics Admission date: 07/08/21 Report Date: 07/08/21 Time: 16:21 Allergies/Adverse Reactions: Patient Allergies alendronate sodium [From Fosamax] Allergy (Intermediate, Verified 06/20/21 14:16) Dizziness atorvastatin [From Lipitor] Allergy (Intermediate, Verified 06/20/21 14:16) Weakness isosorbide Allergy (Verified 07/04/21 14:23) tuberculin,PPD,multi-puncture Adverse Reaction (Mild, Verified 06/20/21 14:16) POSITIVE REACTOR Height: 1.55 m Weight: 75.92 kg - VTE Risk Labs: VTE Related Lab Results Hgb 12.2 g/dL (12.2-16.2) 07/08/21 09:53 Hct 38.1 % (37.0-47.0) 07/08/21 09:53 Plt Count 440 K/mm3 (142-424) H 07/08/21 09:53 BUN 9 mg/dl (7-17) 07/08/21 09:53 Creatinine 0.70 mg/dl (0.52-1.04) 07/08/21 09:53 Estimated Creat Clear 61 mL/min (50-200) 07/08/21 09:53 - Prophylaxis VTE Prophylaxis Ordered?: Yes Types of VTE Prophylaxis: TEDS Knee High Location of Applied Device: Bilateral Lower Extremeties
--- NOTE | 2021-07-08 17:00 | HMH.HP ---
*Admission Date: 07/08/21 *Chief complaint: Post bronchoscopy desats *History of present illness: Ms. Silvestre is a 71-year-old female with a history of COPD, tobacco abuse, hypertension, hyperlipidemia, environmental allergies, coronary artery disease with stents placed, sleep apnea, who underwent a bronchoscopy today by Dr. Olea to assess for cancer after abnormal PET scan. Following the procedure patient's O2 sats did decrease into the 80s. She received a DuoNeb treatment and was placed on BiPAP. She was then admitted for overnight observation. At the time of this exam patient appears comfortable. She has oxygen per nasal cannula. She is dyspneic with conversation. She has a congested cough and did cough up some bloody sputum during our visit. She is hungry and would like something to eat. She denies chest pain. She did have laboratory data completed this morning with a white blood cell count of 8800 and hemoglobin of 12.5 hematocrit of 38.1. Blood gases this p.m. showed a pH of 7.36 with a PCO2 of 54.3 PO2 was 56.3 and a bicarb of 30.2. Blood chemistries show normal electrolytes and a BUN of 9 and creatinine 0.7. Blood sugar was 182. Chest x-ray showed right lung base opacity possibly representing a pneumonia or hemorrhage. No pneumothorax. [facility] History Medical History: Reports:: Asthma, Atherosclerotic Heart Disease, Congestive Heart Failure, Chronic Obstructive Pulmonary Disease (COPD), Deep Vein Thrombosis, Hyperlipidemia, Hypertension, Lung Disease Denies:: Cancer, Diabetes Mellitus Type 1, Home Oxygen, Internal Pacemaker, MRSA, Seizures *Have you ever received a pneumonia vaccine?: Yes *Have you received a flu vaccine this season?: Yes Other Medical History: Reports: Cataracts. Denies: Blood Transfusion Reaction Comment:: Patient has been exposed to several family members who are positive for tuberculosis. She has always had a positive skin test but has never been treated. Anesthesia experience/problems:: nac Laterality Cases: Bilateral: Tonsillectomy, Total Hip Replacement Other Surgeries: Yes: Cardiac Catheterization, Cholecystectomy, Colonoscopy, Coronary Stent, EGD, Hernia Repair, Hysterectomy-Total. No: Pacemaker Amputation: No Fractures: Yes - *Social History Last grade of school completed: High school graduate Smoking Status: Former smoker Tobacco Type: cigarettes # Packs/Day (cigarettes): 1 Smoking End Date: 05/2021 Alcohol Intake: never Alcohol Intake Frequency:: other Substance Use Type: denies use *Occupational Status:: retired Housing: house Household Members: none *Travel in the last 8 weeks: None Family Hx:: Diabetes, Heart Attack, Hypertension, Tuberculosis (Her grandfather, cousin, and several other family members had tuberculosis.) Review of Systems - Constitutional Denies fever(s) - Eyes Denies change in vision - ENT Denies ear pain, Denies sore throat - *Cardiovascular Reports shortness of breath (Since the procedure), Denies chest pain - *Respiratory Reports cough, Reports shortness of breath, Reports coughing up blood (Since the procedure), Denies chest congestion - *Gastrointestinal Reports heartburn, Denies abdominal pain, Denies change in stools, Denies vomiting blood, Denies nausea, Denies vomiting - *Genitourinary Denies difficulty urinating - *Musculoskeletal Reports joint pain (Multiple) Comments: Uses a cane with walking - *Neurologic Denies seizure-like activity, Denies frequent falls, Denies headache(s) Meds Home Medications Medication Instructions Recorded Confirmed Type atorvastatin 20 mg tablet 20 mg PO DAILY 90 Days #90 tab 05/13/18 07/04/21 History clopidogrel 75 mg tablet 75 mg PO DAILY 90 Days #90 tab 05/13/18 07/04/21 History fluticasone propionate 50 1 spray INTRANASAL DAILY 30 Days 05/13/18 07/04/21 History mcg/actuation nasal #16 g spray,suspension furosemide 20 mg tablet 20 mg PO BID 90 Days #90 tab 05/13/18 07/04/21 History hydroxyzine HC
--- NOTE | 2021-07-08 18:49 | PC.NURSE ---
PT CONTINUES ON BIPAP SINCE ARRIVING TO FLOOR FROM BRONCHOSCOPY. HAS VOICED DESIRE FOR PO INTAKE. SHE HAS BEEN TIRED SINCE ARRIVING TO FLOOR. SHE HAS NOT C/O PAIN.
[2021-07-09] VITALS (9 sets, daily range): BP systolic 110–168; BP diastolic 56–91; PULSE 83–116; RESP 15–19; TEMP 36.4–36.8; O2SAT 91–94; BMI 31.6
--- NOTE | 2021-07-09 05:19 | PC.NURSE ---
Pt began on a bipap. Compliant with it but requested a break due to pressure to the nose. Mask removed and no redness or breakdown noted. Spoke with RT and placed Pt on NC per Md orders. Pt tolerating NC and maintaining sats. AAOx4. No confusion noted. No c/o or needs. Call bhardwaj within reach and able to make all needs known.
--- NOTE | 2021-07-09 07:14 | P.PN_ITS ---
[facility] Anesthesia Record Part II Discharge Time: 15:56 Destination: Second Floor PACU nurse assessment reviewed?: Yes Patient Condition:: Good Anesthesia Complications:: None Swallowing reflex intact?: Yes Cyanosis?: No Blood Pressure: 139/91 Pulse Rate: 95 Temperature: 97.6 F Mental Status: Alert & Oriented Pain level:: 0 Nausea and/or vomitting:: None Intake, IV Amount: 0
--- NOTE | 2021-07-09 08:55 | HMH.ACPN2 ---
Internal Medicine - PN: Subj *Date: 07/09/21 *Time: 08:55 Interval history: She seems to be doing well this morning. She has had a nebulizer treatment she states. She still rather congested and wheezing on auscultation. She has some sputum production. She is on nasal cannula has been on nasal cannula through the night with sats greater than 90%. Her disposition is per Dr. Olea. Exam Vital signs and Labs for Last 24 Hours: Temp Pulse Resp BP Pulse Ox 98.3 F 107 H 18 110/74 92 L 07/09/21 07:36 07/09/21 07:36 07/09/21 07:36 07/09/21 07:36 07/09/21 07:36 Laboratory Results - last 24 hr 07/08/21 09:53: WBC 8.8, RBC 4.01 L, Hgb 12.2, Hct 38.1, MCV 95.0, MCH 30.5, MCHC 32.1, RDW 13.9, Plt Count 440 H, MPV 7.8, Neut % (Auto) 77.2, Lymph % (Auto) 15.5, [place] % (Auto) 5.2, Eos % (Auto) 1.2, Baso % (Auto) 0.9, Neut # (Auto) 6.8, Lymph # (Auto) 1.4, [place] # (Auto) 0.5, Eos # (Auto) 0.1, Baso # (Auto) 0.1 07/08/21 09:53: Sodium 136, Potassium 4.2, Chloride 101, Carbon Dioxide 30, Anion Gap 9.2, BUN 9, Creatinine 0.70, Estimated Creat Clear 61, Estimated GFR 82, Est GFR ( Amer) 100, Glucose 182 H, Calcium 8.1 L 07/08/21 15:06: Specimen Source Left radial, O2 % 40%, ABG pH 7.36, ABG pCO2 54.3 H, ABG pO2 56.3 L, ABG HCO3 30.2 H, ABG Total CO2 31.9 H, ABG O2 Saturation 89 L, ABG Base Excess 4.8 H, Keenan Test Acceptable, Vent Rate 16, PEEP 16/10 I & O for Last 24 hours: Intake & Output 07/06/21 07/07/21 07/08/21 07/09/21 11:59 11:59 11:59 11:59 Intake Total 750 / 750 Output Total 350 / 350 Balance 400 / 400 Weight 167 lb 9.6 oz Microbiology Reports for the Last 24 Hours: Microbiology 07/08/21 13:11 Bronchial Washings - Left Lower Lobe Gram Stain - Final - Constitutional no acute distress - *Routine HEENT Exam Head: Present: normocephalic Eye: Present: EOMI, PERRL ENT: Present: mucous membranes moist - *Routine Neck Exam Present: supple. Absent: lymphadenopathy - *Routine Respiratory Exam Present: decreased breath sounds, rhonchi, wheezes. Absent: respiratory distress - *Routine Cardiovascular Exam Present: RRR - *Routine Abdominal Exam Present: soft, normoactive bowel sounds. Absent: tenderness - *Routine Extremities Exam Present: edema (Trace) - *Routine Skin Exam Present: warm. Absent: rash - *Routine Neurological Exam Present: alert, oriented X3 Assessment and Plan (1) Acute respiratory failure with hypoxia Status: Acute Category: Medical Code(s): J96.01 - Acute respiratory failure with hypoxia (2) COPD (chronic obstructive pulmonary disease) Status: Chronic Category: Medical Code(s): J44.9 - Chronic obstructive pulmonary disease, unspecified (3) Hyperlipidemia Status: Chronic Category: Medical Code(s): E78.5 - Hyperlipidemia, unspecified (4) Hypertension Status: Chronic Category: Medical Code(s): I10 - Essential (primary) hypertension (5) Coronary artery disease Status: Chronic Category: Medical Code(s): I25.10 - Atherosclerotic heart disease of [place] coronary artery without angina pectoris (6) Sleep apnea Status: Chronic Category: Medical Code(s): G47.30 - Sleep apnea, unspecified - Assessment and plan all Dx Assessment and Plan for all problems:: Disposition per Dr. Olea.
--- NOTE | 2021-07-09 09:18 | HMH.PULMCON ---
*Admission Date: 07/08/21 *Reason for consult:: Acute on chronic hypoxic hypercarbic respiratory failure *History of present illness: Ms. Silvestre is 71-year-old female history of COPD, CAD presented to the hospital yesterday for elective EBUS FNA, completed without any complications and eventually noted to have worsening hypoxia and hypercarbic respiratory needing noninvasive ventilator therapy and was eventually admitted for further observation. [facility] History Medical History: Reports:: Asthma, Atherosclerotic Heart Disease, Congestive Heart Failure, Chronic Obstructive Pulmonary Disease (COPD), Deep Vein Thrombosis, Diabetes Mellitus Type 2, Hyperlipidemia, Hypertension, Lung Disease Denies:: Cancer, Diabetes Mellitus Type 1, Home Oxygen, Internal Pacemaker, MRSA, Seizures *Have you ever received a pneumonia vaccine?: Yes *Have you received a flu vaccine this season?: Yes Other Medical History: Reports: Cataracts. Denies: Blood Transfusion Reaction Anesthesia experience/problems:: nac Laterality Cases: Bilateral: Tonsillectomy, Total Hip Replacement Other Surgeries: Yes: Cardiac Catheterization, Cholecystectomy, Colonoscopy, Coronary Stent, EGD, Hernia Repair, Hysterectomy-Total. No: Pacemaker Amputation: No Fractures: Yes - *Social History Last grade of school completed: High school graduate Smoking Status: Former smoker Tobacco Type: cigarettes # Packs/Day (cigarettes): 1 Smoking End Date: 05/2021 Alcohol Intake: never Alcohol Intake Frequency:: other Substance Use Type: denies use *Occupational Status:: retired Housing: house Household Members: none *Travel in the last 8 weeks: None Family Hx:: Diabetes, Heart Attack, Hypertension, Tuberculosis (Her grandfather, cousin, and several other family members had tuberculosis.) ROS - Cons Denies fatigue, Denies fever(s) - Eyes Denies change in vision - ENT Denies difficulty swallowing - Card Denies shortness of breath, Denies shortness of breath with activity - Resp Respiratory: Reports chest congestion, Reports cough, Reports dyspnea on exertion, Denies excessive phlegm production - GI Gastrointestingal: Denies: abdominal pain - [place] Musculoskeletal: Reports abnormal gait - Psych Denies thoughts of hurting/killing others, Denies thoughts of hurting/killing yourself Meds Home Medications Medication Instructions Recorded Confirmed Type clopidogrel 75 mg tablet 75 mg PO DAILY 90 Days #90 tab 05/13/18 07/04/21 History fluticasone propionate 50 1 spray NS DAILY 30 Days #16 g 02/21/19 04/19/22 History mcg/actuation nasal spray,suspension hydroxyzine HCl 25 mg tablet 25 mg PO BID 90 Days #180 tab 05/13/18 07/04/21 History gabapentin 100 mg capsule 300 mg PO BID 30 Days #180 cap 11/09/19 07/04/21 History montelukast 10 mg tablet 10 mg PO DAILY tab 11/09/19 07/04/21 History potassium chloride 10 mEq 10 meq PO DAILY 90 Days #90 cap 11/09/19 07/04/21 History capsule,extended release tramadol 37.5 mg-acetaminophen 325 1 tab PO BIDP PRN 30 Days #30 tab 11/09/19 07/04/21 History mg tablet Aspirin [Aspirin 81mg EC Tab] 81 mg PO DAILY 01/24/20 07/04/21 History Calcitonin,[place],Synthetic 1 dose NS DAILY 01/24/20 07/04/21 History [Miacalcin nasal spray 200 units/mL] Cholecalciferol (Vitamin D3) 2,000 unit PO DAILY 01/24/20 07/04/21 History [Vitamin D3 1,000 Unit Cap] Glucosamine/D3/Boswellia Dianne 1 each PO BID 01/24/20 07/04/21 History [Osteo Bi-Flex Caplet] Magnesium 250 mg PO DAILY 01/24/20 07/04/21 History Pyridoxine HCl (Vitamin B6) 100 mg PO DAILY 01/24/20 07/04/21 History [Vitamin B6] Vitamin E 400 unit PO DAILY 01/24/20 07/04/21 History bupropion HCl 150 mg 24 hr tablet, 150 mg PO BID tab 08/28/20 07/09/21 History extended release diltiazem HCl 180 mg 180 mg PO DAILY cap 08/28/20 07/04/21 History capsule,extended release 24 hr Mometasone/Formoterol [Dulera 200 2 puff IH BID 07/04/21 07/09/21 History Mcg-5 Mcg Inhaler]
[2021-07-09 09:26] LABS: Coronavirus 19, PCR Not Detected (NotDetected); Influenza A, PCR Not Detected (NotDetected); Influenza B, PCR Not Detected (NotDetected)
--- NOTE | 2021-07-09 10:17 | HMH.PHAINT ---
MEDICATION RECONCILIATION COMPLETED ON PATIENT USING EXTERNAL FILL HISTORY FROM PHARMACY. -SCOTT PERRY, KELLEED
--- NOTE | 2021-07-09 13:16 | DIET.NUTRFU ---
RD saw patient today after lunch, she was ready for discharge. She is well educated on cardiac, diabetic diet recommendations and trys to follow them for the most part. Still has a soda every now and then and adds salt to her potatoes. She does not wear teeth but tolerates regular consistency. Denies any GI distress or significant weight changes. She does report weight fluctuation of 5# dependent on edema. Today edema looked good. Ate 50% of lunch and claims that is what she normally eats at home. Patient had no dietary concerns.
--- NOTE | 2021-07-09 13:21 | HMH.PHAINT ---
I spoke with the patient today about their medication list. Went over the new medications being sent in for the patient and the medications she was to continue taking at home. When we spoke, she did not have any questions or concerns. The patient was provided a copy of the medication list.
--- NOTE | 2021-07-10 14:33 | CARE MANAGER ---
Contacted patient related to discharge from hospital. Patient states she is not doing well and that she feels rough . She states she was short of breath last night and today. She is SOA no matter if she is sitting down, standing, or laying down. She reports O2 sat right now is 94% but last night was down in the 70s. She is taking her antibiotic and steroid as prescribed. Patient is concerned about how she is feeling and I spoke with pulmonology. Transferred patient down to speak with Laila in Pulmonology. ISAC Del Cid
--- NOTE | 2021-07-11 15:31 | HMH.DCSUM ---
General - General Admission date:: 07/08/21 Discharge date: 07/09/21 HPI HPI: Ms. Silvestre is a 71-year-old female with a history of COPD, tobacco abuse, hypertension, hyperlipidemia, environmental allergies, coronary artery disease with stents placed, sleep apnea, who underwent a bronchoscopy today by Dr. Olea to assess for cancer after abnormal PET scan. Following the procedure patient's O2 sats did decrease into the 80s. She received a DuoNeb treatment and was placed on BiPAP. She was then admitted for overnight observation. At the time of this exam patient appears comfortable. She has oxygen per nasal cannula. She is dyspneic with conversation. She has a congested cough and did cough up some bloody sputum during our visit. She is hungry and would like something to eat. She denies chest pain. She did have laboratory data completed this morning with a white blood cell count of 8800 and hemoglobin of 12.5 hematocrit of 38.1. Blood gases this p.m. showed a pH of 7.36 with a PCO2 of 54.3 PO2 was 56.3 and a bicarb of 30.2. Blood chemistries show normal electrolytes and a BUN of 9 and creatinine 0.7. Blood sugar was 182. Chest x-ray showed right lung base opacity possibly representing a pneumonia or hemorrhage. No pneumothorax. Hospital Course Hospital Course: Patient was initially placed on BiPAP and then decreased to nasal oxygen. She was kept overnight for monitoring and by 07/09/2021, she was feeling well. She was still rather congested and wheezing and had some sputum production. Her oxygen saturations were greater than 90% on nasal cannula. She was seen in consultation by pulmonology who felt she was back to baseline and could be discharged home on prednisone, Augmentin, and home inhaler therapy along with duo nebs. Objective Vital signs: Temp Pulse Resp BP Pulse Ox 97.8 F 116 H 18 121/56 L 93 L 07/09/21 11:06 07/09/21 11:06 07/09/21 11:06 07/09/21 11:06 07/09/21 11:06 Narrative: - Constitutional no acute distress Comments: Lying in bed with family in the room. She appears comfortable. Dyspneic with conversation - *Routine HEENT Exam Head: Present: normocephalic, atraumatic Eye: Present: PERRL. Absent: conjunctival icterus, scleral injection ENT: Present: mucous membranes moist, oropharynx clear - *Routine Neck Exam Present: supple. Absent: carotid bruit (Distant carotids unable to assess), lymphadenopathy, thyromegaly - *Routine Respiratory Exam Present: rhonchi, wheezes Comments: Bilateral coarse rhonchi and wheezing - *Routine Cardiovascular Exam Present: RRR Comments: Monitor showing sinus rhythm - *Routine Abdominal Exam Present: soft, normoactive bowel sounds, distended. Absent: tenderness - *Routine Rectal Exam Rectal:: deferred - *Routine Genitalia Exam Genitalia:: deferred - *Routine Extremities Exam Absent: edema, calf tenderness - *Routine Neurological Exam Present: alert, oriented X3, moving all extremities, normal speech DS: Diagnosis - Discharge Diagnosis (1) Acute respiratory failure with hypoxia Status: Acute (2) COPD (chronic obstructive pulmonary disease) Status: Chronic (3) Hyperlipidemia Status: Chronic (4) Hypertension Status: Chronic (5) Coronary artery disease Status: Chronic (6) Sleep apnea Status: Chronic Discharge Plan - Patient Discharge Instructions ACTIVITY: Continue current activity DIET: continue same diet Patient Instructions: DI for Respiratory Failure, Prednisone, Amoxicillin and Clavulanic Acid, DI for Hypoxia, Respiratory Failure - Follow up Plan Follow up with: Devon Olea MD [Physician] - 08/06/21 1:00 pm Disposition: Home, Self-Care Condition at discharge:: Stable Home Medications: Home Medications Medication Instructions Recorded Confirmed Type clopidogrel 75 mg tablet 75 mg PO DAILY 90 Days #90 tab 05/13/18 07/10/21 History fluticasone propionate 50 1
[2021-12-19 10:59] LABS: POC Glucose,Bedside 199 (70-110)
== END 2021-07-09 13:45 | disposition home or self-care (01) ==
LOC: 2ND 16:15
PROVIDERS: Nurse Anesthetist, Certified Registered; Admitting Provider Family Medicine; PCP Family Medicine; Referring Provider Internal Medicine Pulmonary Disease; Visit Provider Family Medicine
DX: J96.01 Acute respiratory failure with hypoxia (principal)
CPT/HCPCS: 36415; 71045; 80048; 82803; 82962; 85025; 87070; 87077; 87102; 87116; 87186; 87205; 87206; 88172; 88173; 88305; 88342; 89051; 94640; 94660; 94761; C9803; G0378; U0003; U0005

== ENCOUNTER 2021-07-10 15:44 | Inpatient (IN) | payer MEDICARE, MEDICAID, SELFPAY ==
[2021-07-10] VITALS (19 sets, daily range): BP systolic 124–194; BP diastolic 60–129; PULSE 118–151; RESP 16–28; TEMP 36.9; O2SAT 88–99; BMI 31.1
--- NOTE | 2021-07-10 | IR_ITS ---
APPROVED REPORT Patient Location: Emergent Cell Manager: VIVIANE Barrientos RT (R) PROCEDURES Left heart catheterization Left ventriculogram Selective coronary angiogram Drug-eluting stent deployment to the ostial and proximal left main artery INDICATION Acute non-ST elevation myocardial infarction, Tachyarrhythmia, Coronary artery disease, Severe lung disease in which patient is not a candidate for coronary artery bypass surgery Informed consent was obtained prior to the procedure. COMPLICATIONS NONE Estimated Blood Loss: LESS THAN 10 ML TECHNIQUE One percent lidocaine used to anesthetize the right anterior aspect of the wrist. The right radial artery was accessed via the Seldinger technique. A 6 Japanese sheath was placed in the right radial artery. 2.5 mg of verapamil, 800 mcg of nitroglycerin, 1mg Lidocaine and 5000 U Heparin were given through the arterial sheath. The papa catheter was also used to perform left heart catheterization, left ventriculogram and selective coronary angiogram. At the end the diagnostic angiogram therapeutic heparin was administered giving a therapeutic ACT and the guide catheter was placed in the left main artery followed by a Choice PT extra-support wire. A 4 mm x 12 mm resolute Yg stent was deployed at 24 jose reducing the severe stenosis to 20%. A 4.5 x 12 mm noncompliant balloon was then deployed at 24 jose on 3 occasions to further post dilate. CONY-3 flow was present before and after the procedure. At the end of the procedure the apparatus was removed the sheath was removed good hemostasis was achieved using TR banding patient was transferred to the postop holding area stable condition ANGIOGRAPHIC RESULTS The left main artery Has an ostial proximal 80% calcified stenosis The left anterior descending artery Large vessel with mild 10 to 20% atheromatous plaque The circumflex artery Ostially occluded and fills via left to left collaterals from the LAD The right coronary artery Proximally subtotally occluded and fills via left to right collaterals from the LAD The TRAORE ventriculogram reveals Not performed The left ventricular end-diastolic pressure Not measured IMPRESSION Critical coronary artery disease as described above Successful stenting of the ostial proximal left main artery supplying all 3 vessels including the LAD circumflex artery and dominant right coronary artery reducing the left main coronary artery stenosis to less than 10% Multifocal tachycardia on EKG likely secondary to decompensated lung disease mixed with ischemic heart disease PLAN 1. Dual antiplatelet therapy 2. LDL less than 55 to be achieved with high intensity statin 3. Echocardiogram in the morning 4. Standard therapy for ischemic heart disease 5. Patient would benefit from low-dose beta-1 selective beta-blockers for both her ischemic heart disease and multifocal atrial tachycardia. 6. Please consult pulmonology in the morning to evaluate patient prior to discharge home Electronically signed by : Jonathan Gallardo MD 07/10/2021 19:09:58
--- NOTE | 2021-07-10 15:38 | ECG_ITS ---
APPROVED REPORT Exam: Resting ECG HR:155 bpm ECG Measurements Heart Rate 155 AXES VA 118 P 73 QRSd 94 QRS 72 QT 249 T -17 QTc 336 Conclusion SINUS TACHYCARDIA WITH SHORT VA INTERVAL WITH OCCASIONAL SUPRAVENTRICULAR PREMATURE COMPLEXES, POSSIBLE ATRIAL FLUTTER NONSPECIFIC ST & T-WAVE ABNORMALITY CRITICAL TEST RESULT UNCONFIRMED REPORT Electronically signed by : Barry García MD 07/11/2021 11:46:57
--- NOTE | 2021-07-10 15:43 | HMH.EDGENADL ---
ED Disposition Clinical Impression: Elevated troponin, Multifocal atrial tachycardia Chest pain Qualifiers: Chest pain type: unspecified Qualified Code(s): R07.9 - Chest pain, unspecified Disposition: Admitted As Inpatient Condition on Discharge: Serious - Critical Care Critical Care Time: Yes Attestation: On , the high probability of a clinically significant, sudden or life threatening deterioration of the following system(s) required my full and direct attention, intervention and personal management. The time I documented below is in addition to time spent performing reported procedures but includes the following listed in this critical care notation. Total Critical Care Time: 30 Vital system(s) involved:: Circulatory Failure My critical care processes included: Assessment & monitoring of V/S, Initial and Re-exams, Data Review/Interpretation, Coordinating Care, Medication Orders and management, Documentation Medical Decision Making - Franklyn Inquiry Pt receiving controlled substance: No Vital Signs: 07/10/21 15:40 07/10/21 15:45 07/10/21 16:01 Temperature 98.5 F Temperature Source Oral Pulse Rate 151 H 142 H Pulse Rate [Right Radial] 146 H Respiratory Rate 24 28 H 20 Blood Pressure 161/111 H 164/88 H Blood Pressure [Right Arm] 161/111 H Blood Pressure Mean [Right Arm] 127 Blood Pressure Source Blood Pressure Source [Right Arm] Automatic Cuff Blood Pressure Position Blood Pressure Position [Right Arm] Sitting 02 Sat by Pulse Oximetry 93 L 88 L 92 L Oxygen Delivery Method Nasal Cannula Nasal Cannula Nasal Cannula Oxygen Flow Rate (LPM) 2 07/10/21 16:31 07/10/21 18:00 07/10/21 18:20 Temperature 98.5 F Temperature Source Pulse Rate 141 H 136 H 118 H Pulse Rate [Right Radial] Respiratory Rate 16 20 Blood Pressure 174/90 H 166/90 H 151/95 H Blood Pressure [Right Arm] Blood Pressure Mean [Right Arm] Blood Pressure Source Automatic Cuff Blood Pressure Source [Right Arm] Blood Pressure Position Sitting Sitting Blood Pressure Position [Right Arm] 02 Sat by Pulse Oximetry 93 L 95 Oxygen Delivery Method Nasal Cannula Nasal Cannula Nasal Cannula Oxygen Flow Rate (LPM) 2 - Lab Data Lab Results 07/10/21 15:49: WBC 25.6 H* D, RBC 4.44, Hgb 13.4, Hct 42.9, MCV 96.6, MCH 30.1, MCHC 31.2 L, RDW 14.1, Plt Count 546 H, MPV 8.4, Neut % (Auto) 93.4 H, Lymph % (Auto) 2.5 L, [place] % (Auto) 3.2, Eos % (Auto) 0.6, Baso % (Auto) 0.2, Neut # (Auto) 24.0 H, Lymph # (Auto) 0.7, [place] # (Auto) 0.8, Eos # (Auto) 0.2, Baso # (Auto) 0.1, Total Counted 100, Neutrophils % (Manual) 96 H, Lymphocytes % (Manual) 1 L, Monocytes % (Manual) 3, Nucleated RBCs 1, Platelet Estimate Marked increase, Target Cells 1+ 07/10/21 15:49: Sodium 132 L, Potassium 4.7, Chloride 96 L, Carbon Dioxide 32 H, Anion Gap 8.7, BUN 18 H D, Creatinine 0.60, Estimated Creat Clear 61, Estimated GFR 99, Est GFR ( Amer) 119, Glucose 321 H, Calcium 8.8, Total Bilirubin 0.6, AST 51 H, ALT 35, Alkaline Phosphatase 127 H, Total Protein 6.5, Albumin 3.5, Globulin 3.0, Albumin/Globulin Ratio 1.2 07/10/21 15:49: Lactate 1.3 07/10/21 15:49: Troponin I 3.12 H 07/10/21 15:54: Specimen Source Left radial, O2 % 2lpm, ABG pH 7.41, ABG pCO2 40.5, ABG pO2 79.8 L, ABG HCO3 24.8, ABG Total CO2 26.1, ABG O2 Saturation 96, ABG Base Excess 0.1, [place] Test Acceptable 07/10/21 17:02: SARS-CoV-2 (PCR) Not detected, Influenza A Untype (PCR) Not detected, Influenza Type B (PCR) Not detected Result diagrams: 07/10/21 15:49 07/10/21 15:49 Orders (Tests/Meds): ED MEDICATIONS Generic Name Dose Route Start Last Admin Trade Name Freq PRN Reason Stop Dose Admin Acetaminophen 325 mg 07/10/21 18:57 Acetaminophen 325mg Tab PO 08/09/21 18:56 Q4HP PRN Mild Pain Acetaminophen 650 mg 07/10/21 18:57 Acetaminophen 325mg Tab PO 08/09/21 18:56 Q4HP PRN Mild to Moderate Pain Albuterol Sulfate 2.5 mg 07/10/21 19:
--- NOTE | 2021-07-10 15:49 | PC.NURSE ---
RT at BS
--- NOTE | 2021-07-10 15:53 | XR_ITS ---
PROCEDURE INFORMATION: Exam: XR Chest Exam date and time: 07/10/2021 4:21 PM Age: 71 years old Clinical indication: Shortness of breath; Prior surgery; Surgery date: Post-operative (0-2 days); Surgery type: Bronchoscopy on Thursday; Patient HX: Non smoker; Additional info: SOA TECHNIQUE: Imaging protocol: XR of the chest. Views: 1 view. COMPARISON: CR XR CHEST PORTABLE 07/08/2021 2:37 PM FINDINGS: Lungs: Mild volume loss at the right lung base. Ill-defined opacities at both lung bases. Pleural spaces: Unremarkable. No pleural effusion. No pneumothorax. Heart/Mediastinum: Unremarkable. No cardiomegaly. Vasculature: Atherosclerotic calcification of the thoracic aorta. Bones/joints: Unremarkable. IMPRESSION: 1. Mild right lung base volume loss. 2. Bibasilar opacities may represent pneumonia.
[2021-07-10 16:09] LABS: Basophils # 0.1 K/mm3 (0-0.2); Basophils % 0.2 % (0.1-2.0); Chloride 96 mmol/L (98-107); Eosinophils # 0.2 K/mm3 (0.0-0.4); Eosinophils % 0.6 % (0.1-12.0); Hematocrit 42.9 % (37.0-47.0); Hemoglobin 13.4 g/dL (12.2-16.2); Lymphocytes # 0.7 K/mm3 (0.7-4.5); Lymphocytes % 2.5 % (10-50); Mean Corpuscular HGB Conc 31.2 g/dL (31.8-35.4); Mean Corpuscular Hemoglobin 30.1 pg (27.0-31.2); Mean Corpuscular Volume 96.6 fl (81-99); Mean Platelet Volume 8.4 fl (7.4-10.4); Monocytes # 0.8 K/mm3 (0.1-1.0); Monocytes % 3.2 % (1.7-9.3); Neutrophils % 93.4 % (37.0-80.0); Platelet Count 546 K/mm3 (142-424); Potassium 4.7 mmoL/L (3.5-5.1); Red Blood Count 4.44 M/mm3 (4.20-5.40); Red Cell Distribution Width 14.1 % (11.5-17.5); Sodium 132 mmol/L (136-145); White Blood Count 25.6 K/mm3 (4.8-10.8)
[2021-07-10 16:12] LABS: Alanine Aminotransferase 35 U/L (12-78); Albumin Level 3.5 g/dl (3.5-5.0); Albumin/Globulin Ratio 1.2 (1.1-1.8); Alkaline Phosphatase 127 U/L (38-126); Anion Gap 8.7 mEq/L (5-15); Aspartate Amino Transferase 51 U/L (14-36); Bilirubin,Total 0.6 mg/dl (0.2-1.3); Blood Urea Nitrogen 18 mg/dl (7-17); Calcium 8.8 mg/dl (8.4-10.2); Carbon Dioxide 32 mmol/L (22.0-30.0); Creatinine Clearance Estimated 61 mL/min (50-200); Estimated Glomerular Filt Rate 99 ml/min (>60); GFR (African American) 119 ML/MIN (>60); Glucose 321 mg/dl (74-100); Total Protein,Serum 6.5 g/dl (6.3-8.2)
[2021-07-10 16:13] LABS: Lactic Acid 1.3 mmol/L (0.7-2.1)
[2021-07-10 16:14] LABS: MANUAL DIFFERENTIAL MANUAL DIFFERENTIAL (MANUAL DIFF)
--- NOTE | 2021-07-10 16:22 | PC.NURSE ---
Ana RN at given family an update
[2021-07-10 16:23] LABS: ABG Base Excess 0.1 mmol/L (-2.4-2.3); ABG HCO3 24.8 mmhg (22.0-26.0); ABG Oxygen Saturation 96 % (90-100); ABG PCO2 40.5 mmhg (35.0-45.0); ABG PH 7.41 mmol/L (7.35-7.45); ABG PO2 79.8 mmhg (80-100); ABG TCO2 26.1 mmhg (23-27)
[2021-07-10 16:24] LABS: Allen's Test Acceptable; Source Left Radial
--- NOTE | 2021-07-10 16:40 | PC.NURSE ---
pt son reports that pt was c/o chest pain lastnight, burning across her chest . will notify ER MD and add troponin to pt labs that have already been drawn and sent to lab, pt had and EKG upon arrival to ED.
--- NOTE | 2021-07-10 16:47 | PC.NURSE ---
notified lab of new order added on
[2021-07-10 17:07] LABS: Coronavirus 19, PCR Not Detected (NotDetected); Influenza A, PCR Not Detected (NotDetected); Influenza B, PCR Not Detected (NotDetected)
[2021-07-10 17:12] LABS: Troponin I 3.12 ng/ml (0.00-0.034)
[2021-07-10 17:14] LABS: Lymphocytes % 1 % (10-50); Monocytes % 3 % (2-9); Neutrophils % 96 % (42-76); Nucleated Red Blood Cells 1; Platelet Estimate Marked Increase; Total Cells Counted 100
--- NOTE | 2021-07-10 17:14 | PC.NURSE ---
Francisco Javier called from lab with critical on patient August Troponin of 3.12, repeated and confirmed.
[2021-07-10 17:15] LABS: Target Cells 1+
--- NOTE | 2021-07-10 17:15 | PC.NURSE ---
MARQUISE LAGUERRE speaking with Dr. Gallardo.
--- NOTE | 2021-07-10 17:22 | PC.NURSE ---
ED MD at for update on POC
--- NOTE | 2021-07-10 17:42 | PC.NURSE ---
pt up to wheelchair at this time, depends changed, bed changed. Pt states she would rather sit up in the wheelchair than get back in the bed. Pt son return to bedside. Will continue to monitor.
--- NOTE | 2021-07-10 17:59 | PC.NURSE ---
MARQUISE LAGUERRE speaking with Dr. Gallardo.
--- NOTE | 2021-07-10 18:04 | PC.NURSE ---
Notified house that pt would be going to the lab support service tech in approx. 20 mins and she would be admitted
--- NOTE | 2021-07-10 18:14 | PC.NURSE ---
ISAC Perez at BS
--- NOTE | 2021-07-10 18:15 | PC.NURSE ---
Dr. Gallardo at
--- NOTE | 2021-07-10 18:16 | PC.NURSE ---
notified Dr. Gallardo of pt HR 118 after metoprolol 5mg IVP once, states he is okay with her HR, no new orders obtained at this time
--- NOTE | 2021-07-10 18:20 | PC.NURSE ---
pt transported to label stamper via wheelchair at this time, gave report to isiah casanova on the phone at approx [phone]
--- NOTE | 2021-07-10 20:15 | PC.NURSE ---
PT ARRIVED TO FLOOR VIA STRETCHER FROM FIXER SUPERVISOR W/STAFF @ 2014
[2021-07-10 20:31] LABS: Microscopic, Urine URINE MICROSCOPIC (MICROSCOPIC)
[2021-07-10 20:38] LABS: Appearance,Urine CLEAR (Clear); Bilirubin,Urine Negative (Negative); Blood, Urine TRACE-I (Negative); Color,Urine YELLOW (Yellow); Glucose,Urine (UA) 3+ (Negative); Ketones,Urine Negative (Negative); Leukocyte Esterase,Urine Negative (Negative); Nitrate,Urine Negative (Negative); Protein,Urine TRACE (Negative); Specific Gravity, Urine 1.015 (1.005-1.030); Urobilinogen,Urine 0.2 EU/dl (0.2)
--- NOTE | 2021-07-10 21:08 | HMH.HP ---
*Chief complaint: Shortness of Breath *History of present illness: This 71 y.o. with chronic lung disease underwent bronchoscopy by Dr. Olea 2 days ago. After her procedure Dr. Olea felt she should be admitted overnight for stabilization. She was requiring BiPap at that point for respiratory stability. After admission her respiratory status stabilized to the point that BiPap was not required and she was maintained overnight on nasal O2. On Thursday morning Dr. Olea felt that the patient was stable for discharge. The patient developed shortness of breath and chest pain overnight and eventually returned to [facility] ER where she was found to be in multiatrial tachycardia and elevated troponin. Dr. Shane paredes was contacted and she was taken to the trestle mainternance laborer. She received one stent in the LAD which allowed markedly improved myocardial circulation via established collateral coronary circulation. Dr. Moore saw the patient in the trestle mainternance laborer recovery area in company with Dr. Gallardo. Post cath she was in respiratory distress with tight breath sounds and wheezing. Sats were initially less than 90%. Her HR was in 130's. She had 3+ leg edema. In the recovery area she received Metoprolol, SoluMedrol and Lasix IV. She was placed on BiPap with saturations improving into the 95-98% range. Nebulizer treatment resulted in better air movement and decrease in wheezing. She received Clopidogrel per rectum. Family members were kept apprised of the patients status and were able to visit with her in the trestle mainternance laborer recovery area. She will be admitted to Step-Down status for further care. [facility] History Medical History: Reports:: Asthma, Atherosclerotic Heart Disease, Congestive Heart Failure, Chronic Obstructive Pulmonary Disease (COPD), Deep Vein Thrombosis, Diabetes Mellitus Type 2, Hyperlipidemia, Hypertension, Lung Disease Denies:: Cancer, Diabetes Mellitus Type 1, Home Oxygen, Internal Pacemaker, MRSA, Seizures *Have you ever received a pneumonia vaccine?: Yes *Have you received a flu vaccine this season?: No Other Medical History: Reports: Cataracts. Denies: Blood Transfusion Reaction Laterality Cases: Bilateral: Tonsillectomy, Total Hip Replacement Other Surgeries: Yes: Cardiac Catheterization, Cholecystectomy, Colonoscopy, Coronary Stent, EGD, Hernia Repair, Hysterectomy-Total. No: Pacemaker Amputation: No Fractures: Yes - *Social History Smoking Status: Former smoker Tobacco Type: cigarettes # Packs/Day (cigarettes): 1 Alcohol Intake: never Alcohol Intake Frequency:: other Substance Use Type: denies use *Occupational Status:: retired Housing: house Household Members: none *Travel in the last 8 weeks: None Family Hx:: Diabetes, Heart Attack, Hypertension, Tuberculosis (Her grandfather, cousin, and several other family members had tuberculosis.) Review of Systems - Review of Systems Review of systems:: unable to obtain Meds Home Medications Medication Instructions Recorded Confirmed Type clopidogrel 75 mg tablet 75 mg PO DAILY 90 Days #90 tab 05/13/18 07/04/21 History fluticasone propionate 50 1 spray NS DAILY 30 Days #16 g 05/13/18 07/09/21 History mcg/actuation nasal spray,suspension hydroxyzine HCl 25 mg tablet 25 mg PO BID 90 Days #180 tab 05/13/18 07/04/21 History gabapentin 100 mg capsule 300 mg PO BID 30 Days #180 cap 11/09/19 07/04/21 History montelukast 10 mg tablet 10 mg PO DAILY tab 11/09/19 07/04/21 History potassium chloride 10 mEq 10 meq PO DAILY 90 Days #90 cap 11/09/19 07/04/21 History capsule,extended release tramadol 37.5 mg-acetaminophen 325 1 tab PO BIDP PRN 30 Days #30 tab 11/09/19 07/04/21 History mg tablet RX: Aspirin [Aspirin 81mg EC 81 mg PO DAILY 01/24/20 07/04/21 History Tab] RX: Calcitonin,[place],Synthetic 1 dose NS DAILY 01/24/20 07/04/21 History [Miacalcin nasal spray 200 units/mL] RX: Cholecalciferol (Vitamin D3) 2,000 unit PO DAILY 01/24/20 07/04/21 History [Vitamin D3 1,000 Unit Ca
[2021-07-10 21:28] LABS: WBC,Urine Occasional #/hpf (0-3)
[2021-07-10 21:29] LABS: Bacteria,Urine Trace /lpf; Squamous Epithelial Cell,Urine Occasional #/hpf (0-5)
[2021-07-10 22:00] LABS: ABG PH 7.21 mmol/L (7.35-7.45)
[2021-07-10 22:01] LABS: ABG HCO3 30.6 mmhg (22.0-26.0); ABG PCO2 79.2 mmhg (35.0-45.0); ABG PO2 408.6 mmhg (80-100)
[2021-07-10 22:02] LABS: ABG Base Excess 2.7 mmol/L (-2.4-2.3); ABG Oxygen Saturation 100 % (90-100); Oxygen 100 %; Source R BRACHIAL; Tidal Volume BIPAP 18/8
--- NOTE | 2021-07-10 22:17 | PC.NURSE ---
Discussed with patient's family about code status. This RN had the discussion with all 3 siblings. They state we are okay with her being on a breathing machine for a short term period . However, no feeding tubes are to be inserted into patient. Form is signed and on the chart.
--- NOTE | 2021-07-10 22:40 | PC.NURSE ---
Cardiology Clinic appt in 1 week at D/c
--- NOTE | 2021-07-10 22:41 | PC.NURSE ---
Actual initial assessment at 2130 not 1999. error in charting
--- NOTE | 2021-07-10 22:52 | PC.NURSE ---
Patient remains a full code at this time. Education discussed about full code status and family understands that we are not able to determine whether or not the patient will remain on the vent a short period . Patient's family does not want a NG tube or surgically inserted feeding tube placed.
[2021-07-11] VITALS (17 sets, daily range): BP systolic 124–158; BP diastolic 55–71; PULSE 84–130; RESP 16–26; TEMP 36.1–37.1; O2SAT 90–100; BMI 31.1
--- NOTE | 2021-07-11 02:45 | PC.NURSE ---
Patient present form mill laborer with TR band in place on RT wrist. Some bruising noted. No hematoma noted. 2+ RT radial pulse palpated. RT Hand is pink and color and warm to touch. TR band has 20ml of air. 2118 Removed 2ml of air from TR band. No bleeding noted. 2146 Removed 2ml of air from TR band. No bleeding noted. 2205 Removed 3ml of air from TR band. No bleeding noted. 2230 Removed 3ml of air from TR band. No bleeding noted. 2300 Removed 3ml of air from TR band. No bleeding noted. 2330 Removed 3ml of air from TR band. No bleeding noted. 2340 Removed 3ml of air from TR band. No bleeding noted. 2350 Removed 1ml of air from TR band. No bleeding noted. TR band removed. Tegaderm placed over site. Old bruising noted. No hematoma. 2+ RT radial pulse palpated. PT hand is warm and pink in color.
--- NOTE | 2021-07-11 07:24 | HMH.PHAVTE ---
[facility] Pharmacy VTE Monitoring - Patient Demographics Admission date: 07/10/21 Report Date: 07/11/21 Time: 07:24 Allergies/Adverse Reactions: Patient Allergies alendronate sodium [From Fosamax] Allergy (Intermediate, Verified 06/20/21 14:16) Dizziness atorvastatin [From Lipitor] Allergy (Intermediate, Verified 06/20/21 14:16) Weakness isosorbide Allergy (Verified 07/04/21 14:23) tuberculin,PPD,multi-puncture Adverse Reaction (Mild, Verified 06/20/21 14:16) POSITIVE REACTOR Height: 1.55 m Weight: 74.843 kg Patient Problems: Current Active Problems Chest pain (Acute) Elevated troponin (Acute) Multifocal atrial tachycardia (Acute) Acute respiratory failure with hypoxia (Acute) Coronary artery disease due to type 2 diabetes mellitus (Acute) Bilateral lower extremity edema (Acute) - VTE Risk Labs: VTE Related Lab Results Hgb 13.4 g/dL (12.2-16.2) 07/10/21 15:49 Hct 42.9 % (37.0-47.0) 07/10/21 15:49 Plt Count 546 K/mm3 (142-424) H 07/10/21 15:49 BUN 18 mg/dl (7-17) H D 07/10/21 15:49 Creatinine 0.60 mg/dl (0.52-1.04) 07/10/21 15:49 Estimated Creat Clear 61 mL/min (50-200) 07/10/21 15:49 Was VTE Risk Assessment Performed: Yes VTE Score: 8 VTE Risk Level: Moderate Risk - Prophylaxis VTE Prophylaxis Ordered?: Yes Types of VTE Prophylaxis: TEDS Knee High Location of Applied Device: Bilateral Lower Extremeties
[2021-07-11 07:35] LABS: Basophils % 0.2 % (0.1-2.0); Eosinophils # 0.1 K/mm3 (0.0-0.4); Eosinophils % 0.4 % (0.1-12.0); Hematocrit 40.5 % (37.0-47.0); Hemoglobin 12.3 g/dL (12.2-16.2); Lymphocytes # 0.5 K/mm3 (0.7-4.5); Lymphocytes % 4.4 % (10-50); Mean Corpuscular HGB Conc 30.3 g/dL (31.8-35.4); Mean Corpuscular Hemoglobin 30.2 pg (27.0-31.2); Mean Corpuscular Volume 99.5 fl (81-99); Mean Platelet Volume 8.4 fl (7.4-10.4); Monocytes # 0.4 K/mm3 (0.1-1.0); Monocytes % 3.1 % (1.7-9.3); Neutrophils # 11.3 K/mm3 (1.8-7.8); Neutrophils % 91.9 % (37.0-80.0); Platelet Count 431 K/mm3 (142-424); Red Blood Count 4.07 M/mm3 (4.20-5.40); Red Cell Distribution Width 14.2 % (11.5-17.5); White Blood Count 12.3 K/mm3 (4.8-10.8)
[2021-07-11 07:38] LABS: Chloride 95 mmol/L (98-107); MANUAL DIFFERENTIAL MANUAL DIFFERENTIAL (MANUAL DIFF); Sodium 135 mmol/L (136-145)
[2021-07-11 07:39] LABS: Potassium 4.3 mmoL/L (3.5-5.1)
[2021-07-11 07:41] LABS: Blood Urea Nitrogen 23 mg/dl (7-17); Creatinine Clearance Estimated 61 mL/min (50-200); Estimated Glomerular Filt Rate 71 ml/min (>60); GFR (African American) 86 ML/MIN (>60)
[2021-07-11 07:42] LABS: Anion Gap 7.3 mEq/L (5-15); Calcium 8.3 mg/dl (8.4-10.2); Carbon Dioxide 37 mmol/L (22.0-30.0); Glucose 345 mg/dl (74-100)
--- NOTE | 2021-07-11 07:45 | HMH.PHAINT ---
Home medication list was verified using [employer] claim history, med-rec from recent office visit, and medication list provided to her at discharge a few days ago.
--- NOTE | 2021-07-11 08:36 | CA_ITS ---
APPROVED REPORT EXAM: Comprehensive 2D, Doppler, and color-flow Echocardiogram Form Maker: Serenity Reddy CRT Ht: 6 ft 1 in Wt: 165lbs BSA: 1.98 BP: 159/80 mmHg Indications: Chest Pain, Congestive Heart Failure, COPD, Diabetes, CAD, Hyperlipidemia, Hypertension/HDD, stents 07-10-21, elevated trop, bronchoscopy 07/08/21 2D Dimensions LVOT 1.59 cm (M/F) 1.5-2.5 LA Volume 39.30 mL LA Volume Index 19.80 mL/m2 (M/F) 16-34 M-Mode Dimensions RVDd 2.19 cm (0.9-2.6) LA Diam 3.80 cm (1.9-4.0) LVDd 4.74 cm (3.5-5.7) Ao Diam 3.44 cm (2.0-3.7) LVDs 3.35 cm (3.5-5.7) IVSd 1.25 cm (0.6-1.1) PWd 0.65 cm (0.6-1.1) EF (Teich) 56.10% FS 29.30% EDV (Teich) 104.40 mL ESV (Teich) 45.80 mL Aortic Valve AO Peak GR. 9.70 mmHg Pulmonary Valve PV Peak Velocity 87.00 (50-150 cm/s) Tricuspid Valve TR P. Velocity 378.00 cm/s RAP Estimate 10.00 mmHg RVSP 67.10 mmHg Left Ventricle Technically difficult study because of the patient factors and poor acoustic windows. Left atrium is mildly enlarged, left ventricle is normal size, estimated ejection fraction 55% with no obvious regional wall motion abnormality endocardial cells are poorly visualized. Diastolic parameters are inconclusive. Right Ventricle Right atrium and right ventricle are normal size and contractility. Aortic Valve Aortic valve is minimally thickened and fibrosed there is no aortic stenosis or aortic insufficiency. Mitral Valve Mitral valve has mitral annular calcification, leaflets minimally thickened, there is mild mitral regurgitation. Tricuspid Valve Tricuspid valve grossly normal, there is mild tricuspid regurgitation, tricuspid regurgitation jet velocity is inadequate for calculation of the right ventricular systolic pressure. Pulmonic Valve Pulmonic valve is poorly visualized. Great Vessels Aortic root is normal size. Inferior vena cava is normal size with normal inspiratory collapse. Pericardium No significant pericardial effusion noted, anterior echo of free space seen. Conclusion 1. Technically difficult study because of the patient factors and poor acoustic windows. 2. Mildly enlarged left atrium, normal left ventricular size, estimated ejection fraction 55% with no regional wall motion abnormality, endocardial surfaces are poorly visualized, diastolic parameters are inconclusive. 3. Mild mitral and tricuspid regurgitation. 4. No significant pericardial effusion noted. 5. Inferior vena cava is normal size with normal inspiratory collapse. Electronically signed by : Sander Valdez MD 07/12/2021 09:47:26
[2021-07-11 08:58] LABS: Chol/HDL Ratio 2.8 (1-3.5); Cholesterol 173 mg/dl (140-200); HDL Cholesterol 61 mg/dl (40-60); Triglycerides 166 mg/dl (30-150); VLDL Cholesterol 33 mg/dL (0-40)
[2021-07-11 09:17] LABS: Lymphocytes % 5 % (10-50); Monocytes % 2 % (2-9); Neutrophils % 93 % (42-76); Platelet Estimate Normal; RBC Morphology Normal; Total Cells Counted 100
--- NOTE | 2021-07-11 09:27 | HMH.PULMCON ---
*Admission Date: 07/10/21 *History of present illness: Ms. Silvestre is 71-year-old female history of COPD, CAD presented to the hospital yesterday for elective EBUS FNA, eventually needing observation for 24 hours needing noninvasive ventilator therapy, weaned to room air and discharged home call the clinic today yesterday complaining of worsening respiratory status and was advised to presented to ER. Patient presented to the ER acute and severe respiratory distress found to be having NSTEMI status post left heart cath and stenting. Patient was Found to be in severe respiratory's with wheezing with initiation of BiPAP therapy along with nebulizations and steroids and pulmonary was consulted for further management. [facility] History Medical History: Reports:: Asthma, Atherosclerotic Heart Disease, Congestive Heart Failure, Chronic Obstructive Pulmonary Disease (COPD), Coronary Artery Disease, Deep Vein Thrombosis, Diabetes Mellitus Type 2, Hyperlipidemia, Hypertension, Lung Disease Denies:: Cancer, Diabetes Mellitus Type 1, Home Oxygen, Internal Pacemaker, MRSA, Seizures *Have you ever received a pneumonia vaccine?: Yes *Have you received a flu vaccine this season?: No Other Medical History: Reports: Arthritis, Cataracts. Denies: Blood Transfusion Reaction Laterality Cases: Bilateral: Tonsillectomy, Total Hip Replacement Other Surgeries: Yes: Cardiac Catheterization, Cholecystectomy, Colonoscopy, Coronary Stent, EGD, Hernia Repair, Hysterectomy-Total. No: Pacemaker Amputation: No Fractures: No - *Social History Smoking Status: Former smoker Tobacco Type: cigarettes # Packs/Day (cigarettes): 1 #Yrs smoked (if former smoker): 30 Alcohol Intake: never Alcohol Intake Frequency:: other Substance Use Type: denies use *Occupational Status:: retired Housing: house Household Members: none *Travel in the last 8 weeks: None Family Hx:: Diabetes, Heart Attack, Hypertension, Tuberculosis ROS - Cons Denies body ache(s), Denies chills - Eyes Denies change in vision - ENT Denies nosebleed - Card Reports shortness of breath, Reports shortness of breath with activity - Resp Respiratory: Reports chest congestion, Reports cough, Reports dyspnea, Reports dyspnea on exertion, Denies excessive phlegm production, Reports cough with sputum production - GI Gastrointestingal: Denies: abdominal pain - [place] Musculoskeletal: Denies muscle weakness - Psych Denies thoughts of hurting/killing others, Denies thoughts of hurting/killing yourself Meds Home Medications Medication Instructions Recorded Confirmed Type clopidogrel 75 mg tablet 75 mg PO DAILY 90 Days #90 tab 05/13/18 07/10/21 History fluticasone propionate 50 1 spray NS DAILY 30 Days #16 g 05/13/18 07/10/21 History mcg/actuation nasal spray,suspension hydroxyzine HCl 25 mg tablet 25 mg PO BID 90 Days #180 tab 05/13/18 07/10/21 History gabapentin 100 mg capsule 300 mg PO BID 30 Days #180 cap 11/09/19 07/10/21 History montelukast 10 mg tablet 10 mg PO DAILY tab 11/09/19 07/10/21 History potassium chloride 10 mEq 10 meq PO DAILY 90 Days #90 cap 11/09/19 07/10/21 History capsule,extended release tramadol 37.5 mg-acetaminophen 325 1 tab PO BIDP PRN 30 Days #30 tab 11/09/19 07/10/21 History mg tablet Aspirin [Aspirin 81mg EC Tab] 81 mg PO DAILY 01/24/20 07/10/21 History Calcitonin,[place],Synthetic 1 dose NS DAILY 01/24/20 07/10/21 History [Miacalcin nasal spray 200 units/mL] Cholecalciferol (Vitamin D3) 2,000 unit PO DAILY 01/24/20 07/10/21 History [Vitamin D3 1,000 Unit Cap] Glucosamine/D3/Boswellia Dianne 1 each PO BID 01/24/20 07/10/21 History [Osteo Bi-Flex Caplet] Magnesium 250 mg PO DAILY 01/24/20 07/10/21 History Pyridoxine HCl (Vitamin B6) 100 mg PO DAILY 01/24/20 07/10/21 History [Vitamin B6] Vitamin E 400 unit PO DAILY 01/24/20 07/10/21 History diltiazem HCl 180 mg 180 mg PO DAILY cap 08/28/20 07/10/21 History capsule,extended release 24 hr Mo
--- NOTE | 2021-07-11 09:36 | HMH.ACPN2 ---
Internal Medicine - PN: Subj *Date: 07/11/21 *Time: 09:36 Interval history: Patient is feeling much better this morning. She denies any shortness of breath or chest pain. She slept well and is eating breakfast. She has been off BiPAP since early this morning. Exam Vital signs and Labs for Last 24 Hours: Temp Pulse Resp BP Pulse Ox 97.8 F 88 20 156/68 H 90 L 07/11/21 08:00 07/11/21 09:03 07/11/21 08:00 07/11/21 08:00 07/11/21 08:00 Laboratory Results - last 24 hr 07/10/21 15:49: WBC 25.6 H* D, RBC 4.44, Hgb 13.4, Hct 42.9, MCV 96.6, MCH 30.1, MCHC 31.2 L, RDW 14.1, Plt Count 546 H, MPV 8.4, Neut % (Auto) 93.4 H, Lymph % (Auto) 2.5 L, [place] % (Auto) 3.2, Eos % (Auto) 0.6, Baso % (Auto) 0.2, Neut # (Auto) 24.0 H, Lymph # (Auto) 0.7, [place] # (Auto) 0.8, Eos # (Auto) 0.2, Baso # (Auto) 0.1, Total Counted 100, Neutrophils % (Manual) 96 H, Lymphocytes % (Manual) 1 L, Monocytes % (Manual) 3, Nucleated RBCs 1, Platelet Estimate Marked increase, Target Cells 1+ 07/10/21 15:49: Sodium 132 L, Potassium 4.7, Chloride 96 L, Carbon Dioxide 32 H, Anion Gap 8.7, BUN 18 H D, Creatinine 0.60, Estimated Creat Clear 61, Estimated GFR 99, Est GFR ( Amer) 119, Glucose 321 H, Calcium 8.8, Total Bilirubin 0.6, AST 51 H, ALT 35, Alkaline Phosphatase 127 H, Total Protein 6.5, Albumin 3.5, Globulin 3.0, Albumin/Globulin Ratio 1.2 07/10/21 15:49: Lactate 1.3 07/10/21 15:49: Troponin I 3.12 H 07/10/21 15:54: Specimen Source Left radial, O2 % 2lpm, ABG pH 7.41, ABG pCO2 40.5, ABG pO2 79.8 L, ABG HCO3 24.8, ABG Total CO2 26.1, ABG O2 Saturation 96, ABG Base Excess 0.1, [place] Test Acceptable 07/10/21 17:02: SARS-CoV-2 (PCR) Not detected, Influenza A Untype (PCR) Not detected, Influenza Type B (PCR) Not detected 07/10/21 19:58: Urine Color Yellow, Urine Appearance Clear, Urine pH 5.0, Ur Specific [place] 1.015, Urine Protein Trace, Urine Glucose (UA) 3+, Urine Ketones Negative, Urine Blood Trace-i, Urine Nitrate Negative, Urine Bilirubin Negative, Urine Urobilinogen 0.2, Ur Leukocyte Esterase Negative, Urine RBC None, Urine WBC Occasional, Ur Squamous Epith Cells Occasional, Urine Bacteria Trace 07/10/21 21:58: Specimen Source R brachial, O2 % 100, ABG pH 7.21 L*, ABG pCO2 79.2 H, ABG pO2 408.6 H, ABG HCO3 30.6 H, ABG Total CO2 33.0 H, ABG O2 Saturation 100, ABG Base Excess 2.7 H, Tidal Volume Bipap 18/8 07/11/21 07:03: Triglycerides 166 H, Cholesterol 173, LDL Cholesterol Direct 74.40 L, VLDL Cholesterol 33, HDL Cholesterol 61 H, Cholesterol/HDL Ratio 2.8 07/11/21 07:05: WBC 12.3 H D, RBC 4.07 L, Hgb 12.3, Hct 40.5, MCV 99.5 H, MCH 30.2, MCHC 30.3 L, RDW 14.2, Plt Count 431 H, MPV 8.4, Neut % (Auto) 91.9 H, Lymph % (Auto) 4.4 L, [place] % (Auto) 3.1, Eos % (Auto) 0.4, Baso % (Auto) 0.2, Neut # (Auto) 11.3 H, Lymph # (Auto) 0.5 L, [place] # (Auto) 0.4, Eos # (Auto) 0.1, Baso # (Auto) 0.0, Total Counted 100, Neutrophils % (Manual) 93 H, Lymphocytes % (Manual) 5 L, Monocytes % (Manual) 2, Platelet Estimate Normal, RBC Morphology Normal 07/11/21 07:05: Sodium 135 L, Potassium 4.3, Chloride 95 L, Carbon Dioxide 37 H, Anion Gap 7.3, BUN 23 H D, Creatinine 0.80 D, Estimated Creat Clear 61, Estimated GFR 71, Est GFR ( Amer) 86 D, Glucose 345 H, Calcium 8.3 L I & O for Last 24 hours: Intake & Output 07/08/21 07/09/21 07/10/21 07/11/21 11:59 11:59 11:59 11:59 Intake Total 360 / 360 Output Total 1800 / 1800 Balance -1440 / -1440 Weight 165 lb - Constitutional no acute distress - *Routine Respiratory Exam Present: decreased breath sounds, wheezes. Absent: rales - *Routine Cardiovascular Exam Present: RRR - *Routine Abdominal Exam Present: soft, normoactive bowel sounds. Absent: tenderness - *Routine Extremities Exam Absent: cyanosis, clubbing, edema - *Routine Skin Exam Present: warm. Absent: rash - *Routine Neurological Exam Present: alert, oriented X3 Assessment and Plan (1) Chest pain Status: Acute Qualifiers: Chest
--- NOTE | 2021-07-11 09:39 | HMH.ACPN2 ---
Internal Medicine - PN: Subj *Date: 07/11/21 *Time: 09:39 Interval history: She looks remarkably good this morning. She is undergoing echocardiography at this point. She is alert and oriented and in no distress. She states her breathing is better. I have not yet seen her EKG but that she seems to be in sinus rhythm according to the echo in process. She has bilateral rhonchi but is in no respiratory distress. Her leg edema is present but is better than last night. Exam Vital signs and Labs for Last 24 Hours: Temp Pulse Resp BP Pulse Ox 97.8 F 88 20 156/68 H 90 L 07/11/21 08:00 07/11/21 09:03 07/11/21 08:00 07/11/21 08:00 07/11/21 08:00 Laboratory Results - last 24 hr 07/10/21 15:49: WBC 25.6 H* D, RBC 4.44, Hgb 13.4, Hct 42.9, MCV 96.6, MCH 30.1, MCHC 31.2 L, RDW 14.1, Plt Count 546 H, MPV 8.4, Neut % (Auto) 93.4 H, Lymph % (Auto) 2.5 L, [place] % (Auto) 3.2, Eos % (Auto) 0.6, Baso % (Auto) 0.2, Neut # (Auto) 24.0 H, Lymph # (Auto) 0.7, [place] # (Auto) 0.8, Eos # (Auto) 0.2, Baso # (Auto) 0.1, Total Counted 100, Neutrophils % (Manual) 96 H, Lymphocytes % (Manual) 1 L, Monocytes % (Manual) 3, Nucleated RBCs 1, Platelet Estimate Marked increase, Target Cells 1+ 07/10/21 15:49: Sodium 132 L, Potassium 4.7, Chloride 96 L, Carbon Dioxide 32 H, Anion Gap 8.7, BUN 18 H D, Creatinine 0.60, Estimated Creat Clear 61, Estimated GFR 99, Est GFR ( Amer) 119, Glucose 321 H, Calcium 8.8, Total Bilirubin 0.6, AST 51 H, ALT 35, Alkaline Phosphatase 127 H, Total Protein 6.5, Albumin 3.5, Globulin 3.0, Albumin/Globulin Ratio 1.2 07/10/21 15:49: Lactate 1.3 07/10/21 15:49: Troponin I 3.12 H 07/10/21 15:54: Specimen Source Left radial, O2 % 2lpm, ABG pH 7.41, ABG pCO2 40.5, ABG pO2 79.8 L, ABG HCO3 24.8, ABG Total CO2 26.1, ABG O2 Saturation 96, ABG Base Excess 0.1, Keenan Test Acceptable 07/10/21 17:02: SARS-CoV-2 (PCR) Not detected, Influenza A Untype (PCR) Not detected, Influenza Type B (PCR) Not detected 07/10/21 19:58: Urine Color Yellow, Urine Appearance Clear, Urine pH 5.0, Ur Specific [place] 1.015, Urine Protein Trace, Urine Glucose (UA) 3+, Urine Ketones Negative, Urine Blood Trace-i, Urine Nitrate Negative, Urine Bilirubin Negative, Urine Urobilinogen 0.2, Ur Leukocyte Esterase Negative, Urine RBC None, Urine WBC Occasional, Ur Squamous Epith Cells Occasional, Urine Bacteria Trace 07/10/21 21:58: Specimen Source R brachial, O2 % 100, ABG pH 7.21 L*, ABG pCO2 79.2 H, ABG pO2 408.6 H, ABG HCO3 30.6 H, ABG Total CO2 33.0 H, ABG O2 Saturation 100, ABG Base Excess 2.7 H, Tidal Volume Bipap 18/8 07/11/21 07:03: Triglycerides 166 H, Cholesterol 173, LDL Cholesterol Direct 74.40 L, VLDL Cholesterol 33, HDL Cholesterol 61 H, Cholesterol/HDL Ratio 2.8 07/11/21 07:05: WBC 12.3 H D, RBC 4.07 L, Hgb 12.3, Hct 40.5, MCV 99.5 H, MCH 30.2, MCHC 30.3 L, RDW 14.2, Plt Count 431 H, MPV 8.4, Neut % (Auto) 91.9 H, Lymph % (Auto) 4.4 L, [place] % (Auto) 3.1, Eos % (Auto) 0.4, Baso % (Auto) 0.2, Neut # (Auto) 11.3 H, Lymph # (Auto) 0.5 L, [place] # (Auto) 0.4, Eos # (Auto) 0.1, Baso # (Auto) 0.0, Total Counted 100, Neutrophils % (Manual) 93 H, Lymphocytes % (Manual) 5 L, Monocytes % (Manual) 2, Platelet Estimate Normal, RBC Morphology Normal 07/11/21 07:05: Sodium 135 L, Potassium 4.3, Chloride 95 L, Carbon Dioxide 37 H, Anion Gap 7.3, BUN 23 H D, Creatinine 0.80 D, Estimated Creat Clear 61, Estimated GFR 71, Est GFR ( Amer) 86 D, Glucose 345 H, Calcium 8.3 L I & O for Last 24 hours: Intake & Output 07/08/21 07/09/21 07/10/21 07/11/21 11:59 11:59 11:59 11:59 Intake Total 360 / 360 Output Total 1800 / 1800 Balance -1440 / -1440 Weight 165 lb - Constitutional no acute distress - *Routine HEENT Exam Head: Present: normocephalic Eye: Present: EOMI, PERRL ENT: Present: mucous membranes moist. Absent: dentition normal - *Routine Neck Exam Present: supple, JVD. Absent: lymphadenopathy - *Routine Respiratory Exam Present: decreased breath s
--- NOTE | 2021-07-11 10:00 | PC.NURSE ---
Elissa-A. SONYA Sun made aware of pt's HR being 125-130 and maintaining. She states she will put orders in for pt.
--- NOTE | 2021-07-11 10:24 | HMH.CNCARD ---
History of Present Illness Consult date: 07/11/21 Requesting physician: Jack Moore Consult reason: chest pain, shortness of breath Chief complaint: SOB History of present illness: This is a 71-year-old white female who presented to the emergency department with worsening shortness of breath. The patient states that she had a procedure, bronchoscopy with Dr. Olea on Thursday and stayed overnight in the hospital Thursday night and was discharged on Thursday. The patient began having worsening shortness of breath on Thursday night and all day yesterday. She states that this was severe shortness of breath even at rest. This was associated with a burning in her chest. She states that it was worsening with exertion. Nothing was really helping to improve her burning chest and shortness of breath. He had bilateral lower extremity edema and just did not feel well. She called the pulmonology office and they recommended that she go to the emergency department. The patient was found to be in the multi focal tachycardia and an elevated troponin consistent with a non-ST elevation myocardial infarction. The patient was taken to the cardiac catheterization laboratory and underwent stenting to her left main artery. This morning she denies any chest pain or pressure. She denies any burning of the chest. She states her shortness of breath has significantly improved and she is feeling much better. Her edema has improved. She denies any fever, chills, nausea, vomiting, diarrhea, PND or orthopnea. Left cardiac catheterization shows: The left main artery Has an ostial proximal 80% calcified stenosis The left anterior descending artery Large vessel with mild 10 to 20% atheromatous plaque The circumflex artery Ostially occluded and fills via left to left collaterals from the LAD The right coronary artery Proximally subtotally occluded and fills via left to right collaterals from the LAD The TRAORE ventriculogram reveals Not performed The left ventricular end-diastolic pressure Not measured IMPRESSION Critical coronary artery disease as described above Successful stenting of the ostial proximal left main artery supplying all 3 vessels including the LAD circumflex artery and dominant right coronary artery reducing the left main coronary artery stenosis to less than 10% Multifocal tachycardia on EKG likely secondary to decompensated lung disease mixed with ischemic heart disease PLAN 1. Dual antiplatelet therapy 2. LDL less than 55 to be achieved with high intensity statin 3. Echocardiogram in the morning 4. Standard therapy for ischemic heart disease 5. Patient would benefit from low-dose beta-1 selective beta-blockers for both her ischemic heart disease and multifocal atrial tachycardia. 6. Please consult pulmonology in the morning to evaluate patient prior to discharge home [facility] History I have reviewed the patient's past medical history: Yes Medical History: Reports:: Asthma, Atherosclerotic Heart Disease, Congestive Heart Failure, Chronic Obstructive Pulmonary Disease (COPD), Coronary Artery Disease, Deep Vein Thrombosis, Diabetes Mellitus Type 2, Hyperlipidemia, Hypertension, Lung Disease Denies:: Cancer, Diabetes Mellitus Type 1, Home Oxygen, Internal Pacemaker, MRSA, Seizures *Have you ever received a pneumonia vaccine?: Yes *Have you received a flu vaccine this season?: No Other Medical History: Reports: Arthritis, Cataracts. Denies: Blood Transfusion Reaction Laterality Cases: Bilateral: Tonsillectomy, Total Hip Replacement Other Surgeries: Yes: Cardiac Catheterization, Cholecystectomy, Colonoscopy, Coronary Stent, EGD, Hernia Repair, Hysterectomy-Total. No: Pacemaker Amputation: No Fractures: No - *Social History Smoking Status: Former smoker Tobacco Type: cigarettes # Packs/Day (cigarettes): 1 #Yrs smoked (if former smoker): 30 Alcohol Intake: never Alcohol Intake Frequency:: other Substance Use Type: denies use *Occupational Status:: ret
[2021-07-11 13:09] LABS: CATHL Activated Clotting Time 255 SEC (74-125)
--- NOTE | 2021-07-11 18:19 | PC.NURSE ---
Pt has done fine this shift. Pt has remained on RA. Pt has been sinus tach on tele. Saeed cath draining clear, dark yellow urine. Pt has had no c/o pain or SOB. Rt radial cath site is CDI. No other acute changes or complaints, will continue to monitor.
[2021-07-12] VITALS (13 sets, daily range): BP systolic 119–163; BP diastolic 59–73; PULSE 90–118; RESP 17–24; TEMP 36.7–36.9; O2SAT 90–100
--- NOTE | 2021-07-12 08:20 | HMH.PULMPN ---
Internal Medicine - PN: Subj *Date: 07/12/21 *Time: 11:24 Interval history: Patient complains of hemoptysis overnight. Unclear whether it blood clots or yelitza blood. Exam - Constitutional Constitutional:: Present: no acute distress, comfortable - HENMT Exam HENMT: Present: normocephalic - Eye Exam Eyes:: Present: normal appearance both eyes and related structures - Neck Exam Neck:: Present: normal visual inspection - Respiratory Exam Respiratory:: Present: able to speak in complete sentences, no respiratory distress. Absent: wheezing - Cardiovascular Exam Cardiac:: Present: S1, S2 - GI Exam GI:: Present: soft - Skin Exam Skin: Present: warm, no rash - Neurological Exam Neurological: Present: alert, awake - Extremities Exam Extremities: Present: no cyanosis, no clubbing Assessment and Plan (1) Chest pain Status: Acute Qualifiers: Chest pain type: unspecified Qualified Code(s): R07.9 - Chest pain, unspecified Category: Medical Code(s): R07.9 - Chest pain, unspecified (2) Elevated troponin Status: Acute Category: Medical Code(s): R77.8 - Other specified abnormalities of plasma proteins (3) Multifocal atrial tachycardia Status: Acute Category: Medical Code(s): I47.1 - Supraventricular tachycardia (4) Acute respiratory failure with hypoxia Status: Acute Category: Medical Code(s): J96.01 - Acute respiratory failure with hypoxia (5) Bilateral lower extremity edema Status: Acute Category: Medical Code(s): R60.0 - Localized edema (6) Coronary artery disease due to type 2 diabetes mellitus Status: Acute Category: Medical Code(s): E11.59 - Type 2 diabetes mellitus with other circulatory complications; I25.10 - Atherosclerotic heart disease of [place] coronary artery without angina pectoris - Assessment and plan all Dx Assessment and Plan for all problems:: #Acute on chronic hypoxic hypercarbic respiratory failure: #COPD exacerbation: #Community-acquired pneumonia: 71-year-old COPD on triple inhaler therapy. CAD. Presented with respiratory distress status post NSTEMI left heart cath and stenting. On BiPAP. ABG from admission showed severe hypercarbic respiratory failure with a pH of 7.21 and PCO2 of 79.2. No evidence of hypoxia noted, PO2 of 408. Chest x-ray showed bilateral worsening pulmonary infiltrates right greater than left. Recently was discharged on Augmentin, will escalate antibiotics to ceftriaxone and azithromycin Interval update: Complains of episodes of hemoptysis overnight. Unclear whether it is yelitza blood or blood clots. We discussed with the nursing staff to get a clear information. No acute respiratory vents overnight. Saturations in the morning showed 92% on room air. Patient was placed back on oxygen therapy on as-needed basis Sputum less than 10 WBC, rare yeast. Significant improvement in leukocytosis from 23-12. BAL showing gram-positive diplococci. Plan:- -Monitor clinically for any further episodes hemoptysis. No episodes hemoptysis since this morning. -Follow with chest x-ray -Continue ceftriaxone azithromycin, wean antibiotics to cefdinir 300 BID upon discharge to complete a total of 7-day course -DuoNebs every 4 hours scheduled along with budesonide every 12 scheduled -Prednisone 40 mg daily for a total of 5 days -Follow with cardiology recommendations #Thank you for involving pulmonary in this patient care. We will continue to follow.
--- NOTE | 2021-07-12 08:35 | P.PN_ITS ---
Internal Medicine - PN: Subj *Date: 07/12/21 *Time: 08:35 Interval history: Patient states she had a rough night last night. She did have some shortness of breath and wheezing. She denies any chest pain. She is trying to eat breakfast this morning. Exam Vital signs and Labs for Last 24 Hours: Temp Pulse Resp BP Pulse Ox 98.5 F 111 H 18 141/71 H 98 07/12/21 04:00 07/12/21 06:09 07/12/21 04:00 07/12/21 04:00 07/12/21 06:09 Laboratory Results - last 24 hr 07/10/21 18:58: Activated Clotting Time 255 H* 07/11/21 07:03: Triglycerides 166 H, Cholesterol 173, LDL Cholesterol Direct 74.40 L, VLDL Cholesterol 33, HDL Cholesterol 61 H, Cholesterol/HDL Ratio 2.8 07/11/21 07:05: Total Counted 100, Neutrophils % (Manual) 93 H, Lymphocytes % (Manual) 5 L, Monocytes % (Manual) 2, Platelet Estimate Normal, RBC Morphology Normal I & O for Last 24 hours: Intake & Output 07/09/21 07/10/21 07/11/21 07/12/21 11:59 11:59 11:59 11:59 Intake Total 360 / 360 140 / 140 Output Total 1800 / 1800 1530 / 1530 Balance -1440 / -1440 -1390 / -1390 Weight 164 lb 14.492 oz Microbiology Reports for the Last 24 Hours: Microbiology 07/11/21 08:40 Sputum - Expectorated Sputum Gram Stain - Final - Constitutional no acute distress - *Routine Respiratory Exam Present: wheezes - *Routine Cardiovascular Exam Present: RRR - *Routine Abdominal Exam Present: soft, normoactive bowel sounds. Absent: tenderness - *Routine Extremities Exam Absent: cyanosis, clubbing, edema - *Routine Skin Exam Present: warm. Absent: rash - *Routine Neurological Exam Present: alert, oriented X3 Assessment and Plan (1) Chest pain Status: Acute Qualifiers: Chest pain type: unspecified Qualified Code(s): R07.9 - Chest pain, unspecified Category: Medical Code(s): R07.9 - Chest pain, unspecified (2) Elevated troponin Status: Acute Category: Medical Code(s): R77.8 - Other specified abnormalities of plasma proteins (3) Multifocal atrial tachycardia Status: Acute Category: Medical Code(s): I47.1 - Supraventricular tachycardia (4) Acute respiratory failure with hypoxia Status: Acute Category: Medical Code(s): J96.01 - Acute respiratory failure with hypoxia (5) Bilateral lower extremity edema Status: Acute Category: Medical Code(s): R60.0 - Localized edema (6) Coronary artery disease due to type 2 diabetes mellitus Status: Acute Category: Medical Code(s): E11.59 - Type 2 diabetes mellitus with other circulatory complications; I25.10 - Atherosclerotic heart disease of [place] coronary artery without angina pectoris - Assessment and plan all Dx Assessment and Plan for all problems:: Pulmonology has already seen the patient today and wants to wean her antibiotics to cefdinir 300 mg twice daily upon discharge for a total of 7 days. He also wants her to continue on duo nebs and budesonide along with prednisone 40 mg daily for total of 5 days. Awaiting cardiology. Will discuss further care with Dr. Moore.
--- NOTE | 2021-07-12 10:21 | HMH.PNCARD ---
Subjective Date: 07/12/21 Time: 09:30 Principal diagnosis: nonstemi, multifocal atrial tachycardia Interval history: This is a 71-year-old white female who presented to the emergency department with worsening shortness of breath. She was found to have a non-STEMI and underwent left cardiac catheterization with stenting to her left main artery. She will be on Plavix and aspirin for dual antiplatelet therapy. She was also found to have multifocal atrial tachycardia and started on bisoprolol. She has tolerated this well. Her heart rate has improved. She is still tachycardic but given her underlying lung disease she will likely always have some underlying tachycardia. This morning she denies any chest pain or pressure. She denies any burning of her chest. She states she has some mild shortness of breath at times but this is still continuing to improve and she feels much better. She denies edema. She denies any fever, chills, nausea, vomiting, PND or orthopnea. Exam Vital signs and Labs for Last 24 Hours: Temp Pulse Resp BP Pulse Ox 98.5 F 107 H 24 119/59 L 90 L 07/12/21 08:00 07/12/21 09:24 07/12/21 08:00 07/12/21 08:00 07/12/21 09:52 Laboratory Results - last 24 hr 07/10/21 18:58: Activated Clotting Time 255 H* I & O for Last 24 hours: Intake & Output 07/09/21 07/10/21 07/11/21 07/12/21 23:59 23:59 23:59 23:59 Intake Total 500 / 500 Output Total 2750 / 3330 580 / 580 Balance -2250 / -2830 -580 / -580 Weight 165 lb 164 lb 14.492 oz Microbiology Reports for the Last 24 Hours: Microbiology 07/11/21 08:40 Sputum - Expectorated Sputum Gram Stain - Final Narrative: 1. Technically difficult study because of the patient factors and poor acoustic windows. 2. Mildly enlarged left atrium, normal left ventricular size, estimated ejection fraction 55% with no regional wall motion abnormality, endocardial surfaces are poorly visualized, diastolic parameters are inconclusive. 3. Mild mitral and tricuspid regurgitation. 4. No significant pericardial effusion noted. 5. Inferior vena cava is normal size with normal inspiratory collapse. - Constitutional no acute distress, obese - *Routine HEENT Exam Head: Present: normocephalic, atraumatic Eye: Present: EOMI, PERRL ENT: Present: mucous membranes moist - *Routine Neck Exam Present: supple, full ROM, normal carotid upstroke. Absent: JVD, carotid bruit, lymphadenopathy - *Routine Respiratory Exam Present: rhonchi - *Routine Cardiovascular Exam Present: RRR, Normal S1, Normal S2, tachycardia. Absent: murmur - *Routine Abdominal Exam Present: soft, normoactive bowel sounds. Absent: tenderness, distended - *Routine Extremities Exam Present: full ROM, pulses intact, normal capillary refill. Absent: cyanosis, clubbing, edema - *Routine Skin Exam Present: intact, warm. Absent: dry, rash - *Routine Neurological Exam Present: alert, oriented X3, CN II-XII intact. Absent: sensory deficit, motor deficit Progress Note: A&P (1) Non-STEMI (non-ST elevated myocardial infarction) Status: Acute (2) Coronary artery disease Status: Chronic (3) Elevated troponin Status: Acute (4) Multifocal atrial tachycardia Status: Acute (5) Acute respiratory failure with hypoxia Status: Acute (6) COPD (chronic obstructive pulmonary disease) Status: Chronic (7) Hyperlipidemia Status: Chronic (8) Hypertension Status: Chronic (9) Type 2 diabetes mellitus with diabetic neuropathy, without long-term current use of insulin Status: Acute Assessment and Plan for All Diagnoses:: Plan: 1. The patient was brought to the emergency department shortness of breath and burning in her chest. She is found to have a non-ST elevation myocardial infarction and underwent left cardiac catheterization with stenting to her left main artery. The patient will be on Plavix and aspirin for dual antiplatelet therapy. She de
--- NOTE | 2021-07-12 11:26 | XR_ITS ---
FINAL REPORT CLINICAL HISTORY: SOB COMPARISON: 07/10/2021 FINDINGS: SINGLE-VIEW CHEST The heart size is normal. The mediastinum is normal. There is partially improved aeration in the right lung base. There is persistent left base atelectasis. There is no pneumothorax. There are degenerative changes of the shoulders. IMPRESSION: Partially improved aeration in the right lung base with persistent left base atelectasis. Reviewed, Interpreted and Dictated by Shoaib Booth III, MD Transcribed by Yomaira Alfonso Authenticated by Shoaib Booth III, MD on 07/12/2021 12:49:[address] [facility]
--- NOTE | 2021-07-12 16:28 | PC.NURSE ---
PT IS AOX4, GCS 15, ABLE TO MAKE NEEDS KNOWN TO STAFF, SPENT 6 HOURS UP TO CHAIR THIS SHIFT AND TOLERATED WELL. ASSIST X 1 TO CHAIR WITH WALKER. TOLERATING DIET WELL, DENIES N/V. DENIES PAIN THIS SHIFT. REMAINS ON 2LNC. EXPIRATORY RHONCHI NOTED T/O LUNG [place]. HANDY CATH REMAINS IN PLACE DRAINING CLEAR YELLOW URINE.
[2021-07-13] VITALS (13 sets, daily range): BP systolic 99–155; BP diastolic 55–81; PULSE 81–110; RESP 16–19; TEMP 36.6–36.8; O2SAT 90–97; BMI 31.2
--- NOTE | 2021-07-13 09:16 | HMH.ACPN2 ---
Internal Medicine - PN: Subj *Date: 07/13/21 *Time: 09:16 Interval history: The patient remains remarkably stable. She is resting comfortably. She continues with a cough which is productive but there is less sputum production, less thick and less blood. Exam Vital signs and Labs for Last 24 Hours: Temp Pulse Resp BP Pulse Ox 97.9 F 94 H 16 99/55 L 96 07/13/21 07:58 07/13/21 08:00 07/13/21 07:58 07/13/21 07:58 07/13/21 07:58 I & O for Last 24 hours: Intake & Output 07/10/21 07/11/21 07/12/21 07/13/21 11:59 11:59 11:59 11:59 Intake Total 360 / 360 380 / 380 600 / 600 Output Total 1800 / 1800 1530 / 1530 1400 / 1400 Balance -1440 / -1440 -1150 / -1150 -800 / -800 Weight 164 lb 14.492 oz 165 lb 9.6 oz Microbiology Reports for the Last 24 Hours: Microbiology 07/12/21 09:51 Sputum - Expectorated Sputum Gram Stain - Final 07/10/21 15:58 Blood Blood Culture - Preliminary NO GROWTH AFTER 48 HOURS 07/10/21 15:58 Blood Blood Culture - Preliminary NO GROWTH AFTER 48 HOURS - Constitutional no acute distress - *Routine HEENT Exam Head: Present: normocephalic Eye: Present: EOMI, PERRL ENT: Present: mucous membranes moist - *Routine Neck Exam Present: supple. Absent: lymphadenopathy - *Routine Respiratory Exam Present: decreased breath sounds, CTA bilaterally, rales, rhonchi - *Routine Cardiovascular Exam Present: RRR - *Routine Abdominal Exam Present: soft, normoactive bowel sounds, obese. Absent: tenderness - *Routine Extremities Exam Absent: cyanosis, clubbing, edema - *Routine Skin Exam Present: warm. Absent: rash - *Routine Neurological Exam Present: alert, oriented X3 Assessment and Plan (1) Chest pain Status: Acute Qualifiers: Chest pain type: unspecified Qualified Code(s): R07.9 - Chest pain, unspecified Category: Medical Code(s): R07.9 - Chest pain, unspecified (2) Multifocal atrial tachycardia Status: Acute Category: Medical Code(s): I47.1 - Supraventricular tachycardia (3) Elevated troponin Status: Acute Category: Medical Code(s): R77.8 - Other specified abnormalities of plasma proteins (4) Acute respiratory failure with hypoxia Status: Acute Category: Medical Code(s): J96.01 - Acute respiratory failure with hypoxia (5) Bilateral lower extremity edema Status: Acute Category: Medical Code(s): R60.0 - Localized edema (6) Coronary artery disease due to type 2 diabetes mellitus Status: Acute Category: Medical Code(s): E11.59 - Type 2 diabetes mellitus with other circulatory complications; I25.10 - Atherosclerotic heart disease of [place] coronary artery without angina pectoris - Assessment and plan all Dx Assessment and Plan for all problems:: Continue present care. Anticipate discharge on Thursday.
[2021-07-13 09:47] LABS: Basophils # 0.1 K/mm3 (0-0.2); Basophils % 1.3 % (0.1-2.0); Eosinophils # 0.1 K/mm3 (0.0-0.4); Eosinophils % 0.7 % (0.1-12.0); Hematocrit 36.8 % (37.0-47.0); Hemoglobin 11.7 g/dL (12.2-16.2); Lymphocytes # 1.7 K/mm3 (0.7-4.5); Lymphocytes % 18.5 % (10-50); Mean Corpuscular HGB Conc 31.8 g/dL (31.8-35.4); Mean Corpuscular Hemoglobin 30.2 pg (27.0-31.2); Mean Platelet Volume 8.1 fl (7.4-10.4); Monocytes # 0.6 K/mm3 (0.1-1.0); Monocytes % 6.8 % (1.7-9.3); Neutrophils # 6.5 K/mm3 (1.8-7.8); Neutrophils % 72.7 % (37.0-80.0); Platelet Count 329 K/mm3 (142-424); Red Blood Count 3.87 M/mm3 (4.20-5.40); Red Cell Distribution Width 14.1 % (11.5-17.5); White Blood Count 8.9 K/mm3 (4.8-10.8)
[2021-07-13 10:02] LABS: Anion Gap 4.8 mEq/L (5-15); Blood Urea Nitrogen 22 mg/dl (7-17); Calcium 8.6 mg/dl (8.4-10.2); Carbon Dioxide 35 mmol/L (22.0-30.0); Chloride 96 mmol/L (98-107); Creatinine Clearance Estimated 61 mL/min (50-200); Estimated Glomerular Filt Rate 82 ml/min (>60); GFR (African American) 100 ML/MIN (>60); Glucose 254 mg/dl (74-100); Potassium 3.8 mmoL/L (3.5-5.1); Sodium 132 mmol/L (136-145)
--- NOTE | 2021-07-13 17:04 | PC.NURSE ---
Pt has had no complaints this shift. She has been up to the chair majority of the shift. Pt has been anywhere from room air to 1LNC. o2 sats will decrease to approx 88-89% on room air at times, but sats go back up above 91% when on 1LNC. Pts cough has been nonproductive this shift. Rhonchi heard through all lung bases. +1-2 pitting edema noted to BLE. No other acute changes or complaints.
[2021-07-14] VITALS (16 sets, daily range): BP systolic 106–180; BP diastolic 58–83; PULSE 70–90; RESP 18–20; TEMP 36.6–36.8; O2SAT 92–98; BMI 31.0
--- NOTE | 2021-07-14 05:51 | PC.NURSE ---
Patient rested well this shift, patient was placed on 2L NC while sleeping due to 02 dropping to mid 80's. No c/o pain or SOA voiced this shift. Saeed cath in place draining at bedside. Nothing further.
--- NOTE | 2021-07-14 10:01 | P.PN_ITS ---
Internal Medicine - PN: Subj *Date: 07/14/21 *Time: 10:01 Exam Vital signs and Labs for Last 24 Hours: Temp Pulse Resp BP Pulse Ox 97.9 F 89 18 106/58 L 92 L 07/14/21 07:53 07/14/21 07:53 07/14/21 07:53 07/14/21 07:53 07/14/21 07:53 Laboratory Results - last 24 hr 07/13/21 09:34: Sodium 132 L, Potassium 3.8, Chloride 96 L, Carbon Dioxide 35 H, Anion Gap 4.8 L, BUN 22 H, Creatinine 0.70, Estimated Creat Clear 61, Estimated GFR 82, Est GFR ( Amer) 100, Glucose 254 H, Calcium 8.6 I & O for Last 24 hours: Intake & Output 07/11/21 07/12/21 07/13/21 07/14/21 23:59 23:59 23:59 23:59 Intake Total 500 / 500 840 / 840 360 / 480 300 / 300 Output Total 2750 / 3330 1180 / 1980 1550 / 2050 500 / 500 Balance -2250 / -2830 -340 / -1140 -1190 / -1570 -200 / -200 Weight 74.8 kg 75.115 kg 74.616 kg Microbiology Reports for the Last 24 Hours: Microbiology 07/11/21 08:40 Sputum - Expectorated Sputum Gram Stain - Final 07/11/21 08:40 Sputum - Expectorated Sputum Sputum Culture - Preliminary 07/12/21 09:51 Sputum - Expectorated Sputum Gram Stain - Final 07/12/21 09:51 Sputum - Expectorated Sputum Sputum Culture - Preliminary Assessment and Plan (1) Chest pain Status: Acute Qualifiers: Chest pain type: unspecified Qualified Code(s): R07.9 - Chest pain, unspecified Category: Medical Code(s): R07.9 - Chest pain, unspecified (2) Multifocal atrial tachycardia Status: Acute Category: Medical Code(s): I47.1 - Supraventricular tachycardia (3) Elevated troponin Status: Acute Category: Medical Code(s): R77.8 - Other specified abnormalities of plasma proteins (4) Acute respiratory failure with hypoxia Status: Acute Category: Medical Code(s): J96.01 - Acute respiratory failure with hypoxia (5) Bilateral lower extremity edema Status: Acute Category: Medical Code(s): R60.0 - Localized edema (6) Coronary artery disease due to type 2 diabetes mellitus Status: Acute Category: Medical Code(s): E11.59 - Type 2 diabetes mellitus with other circulatory complications; I25.10 - Atherosclerotic heart disease of [place] coronary artery without angina pectoris The patient's infection will respond to the chosen ABx?: Yes Is the patient receiving the right drug, dose, and route?: Yes Could a more targeted ABx be ordered?: No (WBC 25.6 DOWN TO 8.9 TODAY, AFEBRILE, CONT CURRENT.)
--- NOTE | 2021-07-14 11:11 | HMH.ACPN2 ---
Internal Medicine - PN: Subj *Date: 07/14/21 *Time: 11:11 Interval history: She seems to be resting comfortably. She states that she has been more short of breath through the night. Oxygen saturation is 98% this morning. Exam Vital signs and Labs for Last 24 Hours: Temp Pulse Resp BP Pulse Ox 97.9 F 77 18 106/58 L 98 07/14/21 07:53 07/14/21 10:11 07/14/21 07:53 07/14/21 07:53 07/14/21 10:11 I & O for Last 24 hours: Intake & Output 07/11/21 07/12/21 07/13/21 07/14/21 11:59 11:59 11:59 11:59 Intake Total 360 / 360 380 / 380 600 / 600 660 / 660 Output Total 1800 / 1800 1530 / 1530 1400 / 1400 1250 / 1250 Balance -1440 / -1440 -1150 / -1150 -800 / -800 -590 / -590 Weight 164 lb 14.492 oz 165 lb 9.6 oz 164 lb 8 oz Microbiology Reports for the Last 24 Hours: Microbiology 07/11/21 08:40 Sputum - Expectorated Sputum Gram Stain - Final 07/11/21 08:40 Sputum - Expectorated Sputum Sputum Culture - Preliminary 07/12/21 09:51 Sputum - Expectorated Sputum Gram Stain - Final 07/12/21 09:51 Sputum - Expectorated Sputum Sputum Culture - Preliminary - Constitutional no acute distress - *Routine HEENT Exam Head: Present: normocephalic Eye: Present: EOMI, PERRL ENT: Present: mucous membranes moist - *Routine Neck Exam Present: supple, JVD. Absent: lymphadenopathy - *Routine Respiratory Exam Present: decreased breath sounds, wheezes - *Routine Cardiovascular Exam Present: RRR - *Routine Abdominal Exam Present: soft, normoactive bowel sounds, obese. Absent: tenderness - *Routine Extremities Exam Absent: cyanosis, clubbing, edema - *Routine Skin Exam Present: warm. Absent: rash - *Routine Neurological Exam Present: alert, oriented X3 Assessment and Plan (1) Chest pain Status: Acute Qualifiers: Chest pain type: unspecified Qualified Code(s): R07.9 - Chest pain, unspecified Category: Medical Code(s): R07.9 - Chest pain, unspecified (2) Multifocal atrial tachycardia Status: Acute Category: Medical Code(s): I47.1 - Supraventricular tachycardia (3) Elevated troponin Status: Acute Category: Medical Code(s): R77.8 - Other specified abnormalities of plasma proteins (4) Acute respiratory failure with hypoxia Status: Acute Category: Medical Code(s): J96.01 - Acute respiratory failure with hypoxia (5) Bilateral lower extremity edema Status: Acute Category: Medical Code(s): R60.0 - Localized edema (6) Coronary artery disease due to type 2 diabetes mellitus Status: Acute Category: Medical Code(s): E11.59 - Type 2 diabetes mellitus with other circulatory complications; I25.10 - Atherosclerotic heart disease of [place] coronary artery without angina pectoris - Assessment and plan all Dx Assessment and Plan for all problems:: Stable. Discharge likely in the morning. Will need continued oxygen at home and nebulizer treatments. Home health should be involved.
--- NOTE | 2021-07-14 15:35 | PC.NURSE ---
aox4, has been up to chair for most of shift. she continues on 2lnc for o2 support. roberson cath in place draining clear yellow urine.
[2021-07-15] VITALS (12 sets, daily range): BP systolic 122–134; BP diastolic 40–61; PULSE 70–90; RESP 18–24; TEMP 36.5–37.3; O2SAT 90–100; BMI 31.9
--- NOTE | 2021-07-15 06:00 | XR_ITS ---
PROCEDURE INFORMATION: Exam: XR Chest Exam date and time: 07/15/2021 5:37 AM Age: 71 years old Clinical indication: Cough and shortness of breath; Additional info: Pnm TECHNIQUE: Imaging protocol: XR of the chest. Views: 1 view. COMPARISON: CR XR CHEST PORTABLE 07/12/2021 11:49 AM FINDINGS: Lungs: Hazy right mid and lower lung base alveolar consolidations. The lungs are otherwise clear. Pleural spaces: Unremarkable. No pleural effusion. No pneumothorax. Heart/Mediastinum: Unremarkable. No cardiomegaly. Bones/joints: Unremarkable. There is no acute fracture present. IMPRESSION: Hazy right mid and lower lung base alveolar consolidations. This is slightly worse than the previous exam.
--- NOTE | 2021-07-15 08:50 | HMH.ACPN2 ---
Internal Medicine - PN: Subj *Date: 07/15/21 *Time: 08:50 Interval history: Patient states she is short of breath after eating breakfast. She slept at intervals during the night. She does have a congestive cough. She denies chest pain. She has been out of bed without problems. Chest x-rayThis a.m. shows a hazy right mid and lower lung base alveolar consolidation which is slightly worse than the previous exam. Exam Vital signs and Labs for Last 24 Hours: Temp Pulse Resp BP Pulse Ox 98.1 F 78 20 132/58 L 98 07/15/21 04:00 07/15/21 05:51 07/15/21 04:00 07/15/21 04:00 07/15/21 05:51 I & O for Last 24 hours: Intake & Output 07/12/21 07/13/21 07/14/21 07/15/21 11:59 11:59 11:59 11:59 Intake Total 380 / 380 600 / 600 660 / 660 720 / 720 Output Total 1530 / 1530 1400 / 1400 1250 / 1250 1300 / 1300 Balance -1150 / -1150 -800 / -800 -590 / -590 -580 / -580 Weight 165 lb 9.6 oz 164 lb 8 oz 169 lb 1.6 oz Microbiology Reports for the Last 24 Hours: Microbiology 07/11/21 08:40 Sputum - Expectorated Sputum Gram Stain - Final 07/11/21 08:40 Sputum - Expectorated Sputum Sputum Culture - Preliminary - Constitutional no acute distress - *Routine Respiratory Exam Present: rhonchi (Bilateral), diminished air movement (Bilaterally posteriorly) - *Routine Cardiovascular Exam Present: RRR - *Routine Abdominal Exam Present: soft, normoactive bowel sounds. Absent: tenderness - *Routine Extremities Exam Absent: edema, calf tenderness - *Routine Neurological Exam Present: alert, oriented X3 Assessment and Plan (1) Chest pain Status: Acute Qualifiers: Chest pain type: unspecified Qualified Code(s): R07.9 - Chest pain, unspecified Category: Medical Code(s): R07.9 - Chest pain, unspecified (2) Multifocal atrial tachycardia Status: Acute Category: Medical Code(s): I47.1 - Supraventricular tachycardia (3) Elevated troponin Status: Acute Category: Medical Code(s): R77.8 - Other specified abnormalities of plasma proteins (4) Acute respiratory failure with hypoxia Status: Acute Category: Medical Code(s): J96.01 - Acute respiratory failure with hypoxia (5) Bilateral lower extremity edema Status: Acute Category: Medical Code(s): R60.0 - Localized edema (6) Coronary artery disease due to type 2 diabetes mellitus Status: Acute Category: Medical Code(s): E11.59 - Type 2 diabetes mellitus with other circulatory complications; I25.10 - Atherosclerotic heart disease of [place] coronary artery without angina pectoris - Assessment and plan all Dx Assessment and Plan for all problems:: Continue with current nebs and antibiotics. Pulmonology to follow.
--- NOTE | 2021-07-15 09:17 | HMH.PULMPN ---
Internal Medicine - PN: Subj *Date: 07/15/21 *Time: 11:27 Interval history: No acute respiratory events overnight. Patient continued to be needing oxygen therapy. Exam - Constitutional Constitutional:: Present: no acute distress, comfortable - HENMT Exam HENMT: Present: normocephalic - Eye Exam Eyes:: Present: normal appearance both eyes and related structures - Neck Exam Neck:: Present: normal visual inspection - Respiratory Exam Respiratory:: Present: able to speak in complete sentences, no respiratory distress, rhonchi. Absent: wheezing - Cardiovascular Exam Cardiac:: Present: S1, S2 - GI Exam GI:: Present: soft - Skin Exam Skin: Present: warm, no rash - Neurological Exam Neurological: Present: alert, awake - Extremities Exam Extremities: Present: no cyanosis, no clubbing Assessment and Plan (1) Chest pain Status: Acute Qualifiers: Chest pain type: unspecified Qualified Code(s): R07.9 - Chest pain, unspecified Category: Medical Code(s): R07.9 - Chest pain, unspecified (2) Multifocal atrial tachycardia Status: Acute Category: Medical Code(s): I47.1 - Supraventricular tachycardia (3) Elevated troponin Status: Acute Category: Medical Code(s): R77.8 - Other specified abnormalities of plasma proteins (4) Acute respiratory failure with hypoxia Status: Acute Category: Medical Code(s): J96.01 - Acute respiratory failure with hypoxia (5) Bilateral lower extremity edema Status: Acute Category: Medical Code(s): R60.0 - Localized edema (6) Coronary artery disease due to type 2 diabetes mellitus Status: Acute Category: Medical Code(s): E11.59 - Type 2 diabetes mellitus with other circulatory complications; I25.10 - Atherosclerotic heart disease of [place] coronary artery without angina pectoris - Assessment and plan all Dx Assessment and Plan for all problems:: #Acute on chronic hypoxic hypercarbic respiratory failure: #COPD exacerbation: #Community-acquired pneumonia: 71-year-old COPD on triple inhaler therapy. CAD. Presented with respiratory distress status post NSTEMI left heart cath and stenting. On BiPAP. ABG from admission showed severe hypercarbic respiratory failure with a pH of 7.21 and PCO2 of 79.2. No evidence of hypoxia noted, PO2 of 408. Chest x-ray showed bilateral worsening pulmonary infiltrates right greater than left. Recently was discharged on Augmentin, and Abx were antibiotics to ceftriaxone and azithromycin on admission. Patient has been relatively doing okay with improving oxygen requirements. Chest x-ray from this morning showing improving pulmonary infiltrates. No significant/obvious worsening noted on this morning's chest x-ray. Patient continued to remain on 1 L nasal cannula saturating fine. She noted to have nocturnal hypoxia. Only 1 episode of coughing old clotted blood in the last 24 hours. Improving leukocytosis. Hemoglobin stable. Interval update: Complains of episodes of hemoptysis overnight. Unclear whether it is yelitza blood or blood clots. We discussed with the nursing staff to get a clear information. No acute respiratory vents overnight. Saturations in the morning showed 92% on room air. Patient was placed back on oxygen therapy on as-needed basis Sputum less than 10 WBC, rare yeast. Significant improvement in leukocytosis from 23-12. BAL showing rare yeast, will continue to monitor. Less than 10 WBC. Plan:- -Flutter Valve. Continue incentive spirometry -Monitor clinically for any further episodes hemoptysis. No episodes hemoptysis since this morning. -Continue ceftriaxone azithromycin, wean antibiotics to cefdinir 300 BID upon discharge to complete a total of 7-day course -DuoNebs every 6 hours scheduled along with budesonide every 12 scheduled -Prednisone 40 mg daily for a total of 5 days -Lasix 40mg IV once -Follow with cardiology recommendations #Thank you for involving pulmonary in this patient care. We will
--- NOTE | 2021-07-15 10:28 | HMH.OTEV ---
OT Inpatient Evaluation Rehab OT IP Evaluation Start: 07/15/21 09:11 Freq: ONCE Status: Complete Protocol: Document 07/15/21 09:54 ADAN (Rec: 07/15/21 10:06 ALBATAN [id number]) Rehab OT IP Assessment Subjective History This 71 y.o. with chronic lung disease underwent bronchoscopy by Dr. Olea 2 days ago. After her procedure Dr. Olea felt she should be admitted overnight for stabilization. She was requiring BiPap at that point for respiratory stability. After admission her respiratory status stabilized to the point that BiPap was not required and she was maintained overnight on nasal O2. On Thursday Dr. Olea felt that the patient was stable for discharge. The patient developed shortness of breath and chest pain overnight and eventually returned to [facility] ER where she was found to be in multiatrial tachycardia and elevated troponin. Dr. Shane paredes was contacted and she was taken [facility]. She received one stent in the LAD which allowed markedly improved myocardial circulation via established collateral coronary circulation. Dr. Moore saw the patient in the [facility] recovery area in company with Dr. Gallardo. Post cath she was in respiratory distress with tight breath sounds and wheezing. Sats were initially less than 90%. Her HR was in 130's. She had 3+ leg edema. In the recovery area she received Metoprolol, SoluMedrol and Lasix IV. She was placed on BiPap with saturations improving into the 95-98% range. Nebulizer
--- NOTE | 2021-07-15 10:31 | PC.NURSE ---
pt up to chair. f/c draining. repositioned catheter to other side of chair per pt request. pt voiced concern about monitoring glucose and taking her januvia. will contact dr griggs with this concern. pt has no other concerns/questions at this time.
--- NOTE | 2021-07-15 10:42 | SW/DCPLANNER ---
Addendum entered by [facility] 07/18/21 13:24: Melo joaquin/ [facility] [employer] has stated that services will begin for this patient. Addendum entered by [facility] 07/18/21 12:03: Patient information/order has been faxed to [facility]. Addendum entered by [facility] 07/18/21 10:35: Insurance has denied placement for this patient stating that patient could return home with home health services. Cata joaquin/ Dr Moore office did complete peer to peer: insurance still denied approval. I have called and updated patient's family. I will inform Dr Moore once he rounds on this patient. Patient could potentially discharge home later today with home health services. Addendum entered by [facility] 07/17/21 16:01: Precert is still pending on this patient. Addendum entered by [facility] 07/17/21 09:47: Per Alea joaquin/ [facility] precert is still pending at this time. Addendum entered by [facility] 07/16/21 14:43: Currently waiting to hear back from precert on this patient. Addendum entered by [facility] 07/16/21 11:30: Alea joaquin/ [facility] has called and stated she can accept this patient and precert has been started. I will update patient of situation. Alea has also stated that patient will NOT require a COVID swab prior to admission. Addendum entered by [facility] 07/16/21 09:30: Patient is still agreeable to placement at this time. I have followed up with [facility] this AM and I am waiting to hear back regarding referral. Addendum entered by [facility] 07/15/21 13:25: [facility] is not in network with patient's insurance. Patient information has been faxed to Yris joaquin/ [employer]. Original Note: I spoke with this patient and her son (Gage) regarding discharge plans. Son has stated that he is agreeable for patient to discharge to SNF level of care only short term to have rehab prior to returning home. Son has suggested [facility] and if they are not able to accept her then would want [facility] in [facility] (patient has been there in the past). Ade with [facility] stated she does have beds available: patient information will be faxed. I will speak with patient regarding plans as well: son stated that patient will be agreeable.
--- NOTE | 2021-07-15 11:30 | HMH.PTEV ---
Physical Therapy Evaluation Rehab PT IP Evaluation Start: 07/15/21 09:11 Freq: ONCE Status: Active Protocol: Document 07/15/21 11:25 PHORNE (Rec: 07/15/21 11:30 PHORNE [id number]) Subjective/History History History 71 yowf adm to [facility] with chest pains and is now S/P heart cath with stent x 1. She reports she lives alone and is generally independent with an AD for all mobility, no steps to enter the home. Subjective Subjective Pt with increased SOA during ambulation, but oxygen sat remains >93% throughout treatment. Rehab PT IP Eval Objective Appearance Patient Behavior Appropriate Patient Orientation Person,Place,Time Difficulty following instructions none Speech Pattern Clear Ambulation Patient Able to Ambulate Yes Ambulation Observation IP General Gait Pattern Observation Wide Based Gait,Shuffling Step Ambulation Distance (feet) 40 Ambulation Assistive Device Rolling Walker Ambulation Ability Contact Guard/Hand Hold Balance Ability to Arise Able, uses arms to help Sitting Balance Steady, safe Standing Balance Steady, wide stance Dynamic Sitting Balance Ability Good Dynamic Standing Balance Ability Fair Transfers Bed Transfer Ability Contact Guard/Hand Hold Chair Transfer Ability Contact Guard/Hand Hold Sit to Stand Bed Transfer Ability Contact Guard/Hand Hold Sit to Stand Chair Transfer Ability Contact Guard/Hand Hold Rehab PT IP prob,goals,plan Problems Date of Evaluation: 07/15/21 PT IP Problems Bed Mobility,Transfers,Gait, Self care Rehab Potential Rehab Potential Good Plan PT Intervention Plan Bed Mobility,Transfers,Gait, Self care,Therapeutic Exercise PT Plan Frequency BID Duration LOS Discharge Goals Bed Transfer Ability Supervision/Stand by Sit to Stand Chair Transfer Ability Supervision/Stand by Ambulation Assistive Device Rolling Walker Ambulation Distance (feet) 50 Discharge Plan PT Discharge Plan Pt is currently most appropriate for rehab placement. G -code Required No Eval Complexity Eval Charge Codes 65969 - Moderate Complexity PHYSICIAN CERTIFICATION: I certify the specified therapy services for Trinity Silvestre are required,
[2021-07-15 12:20] LABS: POC Glucose,Bedside 364 (70-110)
--- NOTE | 2021-07-15 14:28 | HMH.ACPN ---
Internal Medicine - PN: Subj *Date: 07/15/21 *Time: 14:28 Exam Vital signs and Labs for Last 24 Hours: Temp Pulse Resp BP Pulse Ox 99.1 F 82 22 122/40 L 90 L 07/15/21 12:00 07/15/21 13:24 07/15/21 12:00 07/15/21 12:00 07/15/21 13:24 Laboratory Results - last 24 hr 07/15/21 11:11: POC Glucose 364 H* I & O for Last 24 hours: Intake & Output 07/12/21 07/13/21 07/14/21 07/15/21 23:59 23:59 23:59 23:59 Intake Total 840 / 840 360 / 480 780 / 1020 960 / 960 Output Total 1180 / 1980 1550 / 2050 1300 / 1800 890 / 890 Balance -340 / -1140 -1190 / -1570 -520 / -780 70 / 70 Weight 75.115 kg 74.616 kg 76.702 kg Microbiology Reports for the Last 24 Hours: Microbiology 07/11/21 08:40 Sputum - Expectorated Sputum Gram Stain - Final 07/11/21 08:40 Sputum - Expectorated Sputum Sputum Culture - Final Yeast Assessment and Plan (1) Chest pain Status: Acute Qualifiers: Chest pain type: unspecified Qualified Code(s): R07.9 - Chest pain, unspecified Category: Medical Code(s): R07.9 - Chest pain, unspecified (2) Multifocal atrial tachycardia Status: Acute Category: Medical Code(s): I47.1 - Supraventricular tachycardia (3) Elevated troponin Status: Acute Category: Medical Code(s): R77.8 - Other specified abnormalities of plasma proteins (4) Acute respiratory failure with hypoxia Status: Acute Category: Medical Code(s): J96.01 - Acute respiratory failure with hypoxia (5) Bilateral lower extremity edema Status: Acute Category: Medical Code(s): R60.0 - Localized edema (6) Coronary artery disease due to type 2 diabetes mellitus Status: Acute Category: Medical Code(s): E11.59 - Type 2 diabetes mellitus with other circulatory complications; I25.10 - Atherosclerotic heart disease of [place] coronary artery without angina pectoris The patient's infection will respond to the chosen ABx?: Yes Is the patient receiving the right drug, dose, and route?: Yes Could a more targeted ABx be ordered?: No (WBC WNL, TMAX 99.1. CONTINUE CURRENT ABX.)
--- NOTE | 2021-07-15 21:02 | PC.NURSE ---
pts sugar was 531. Stat glucose ordered. Dr. Haney paged for notification.
[2021-07-15 21:49] LABS: Glucose,Random 538 mg/dL (74-100)
[2021-07-15 23:39] LABS: POC Glucose,Bedside 264 (70-110)
[2021-07-16] VITALS (10 sets, daily range): BP systolic 102–119; BP diastolic 41–56; PULSE 68–84; RESP 18–20; TEMP 36.4–36.7; O2SAT 91–100
--- NOTE | 2021-07-16 04:27 | PC.NURSE ---
Pt up in chair most of the shift. But did go to bed. Reported no issues. Has call button within reach. sats remain wnl on RA. PT stated that she did not have any chest pain. Pleasant and upbeat this shift. Voiced 0 needs.
[2021-07-16 07:01] LABS: POC Glucose,Bedside 157 (70-110)
--- NOTE | 2021-07-16 09:12 | HMH.ACPN2 ---
Internal Medicine - PN: Subj *Date: 07/16/21 *Time: 09:13 Interval history: The patient is stable and ready for discharge. Disposition is a problem. Physical therapy has recommended placement for rehabilitation. The patient seems disinclined toward this and would prefer to go home. I feel she does need significant assistance. She needs ongoing pulmonary toilet. Yesterday she refused metformin and glimepiride. I started her back on her Januvia. She has a blood sugar of 157 this morning. Exam Vital signs and Labs for Last 24 Hours: Temp Pulse Resp BP Pulse Ox 97.9 F 81 18 107/41 L 91 L 07/16/21 04:00 07/16/21 05:59 07/16/21 04:00 07/16/21 04:00 07/16/21 05:59 Laboratory Results - last 24 hr 07/15/21 11:11: POC Glucose 364 H* 07/15/21 21:20: Random Glucose 538 H* 07/15/21 23:19: POC Glucose 264 H 07/16/21 06:00: POC Glucose 157 H I & O for Last 24 hours: Intake & Output 07/13/21 07/14/21 07/15/21 07/16/21 11:59 11:59 11:59 11:59 Intake Total 600 / 600 660 / 660 960 / 960 1240 / 1240 Output Total 1400 / 1400 1250 / 1250 1690 / 1690 3150 / 3150 Balance -800 / -800 -590 / -590 -730 / -730 -1910 / -1910 Weight 165 lb 9.6 oz 164 lb 8 oz 169 lb 1.6 oz 159 lb 3.2 oz Microbiology Reports for the Last 24 Hours: Microbiology 07/12/21 09:51 Sputum - Expectorated Sputum Gram Stain - Final 07/12/21 09:51 Sputum - Expectorated Sputum Sputum Culture - Final Normal Respiratory Nelly 07/10/21 15:58 Blood Blood Culture - Final NO GROWTH AFTER 5 DAYS 07/10/21 15:58 Blood Blood Culture - Final NO GROWTH AFTER 5 DAYS 07/11/21 08:40 Sputum - Expectorated Sputum Gram Stain - Final 07/11/21 08:40 Sputum - Expectorated Sputum Sputum Culture - Final Yeast - Constitutional no acute distress - *Routine HEENT Exam Head: Present: normocephalic Eye: Present: EOMI, PERRL ENT: Present: mucous membranes moist - *Routine Neck Exam Present: supple. Absent: lymphadenopathy - *Routine Respiratory Exam Present: decreased breath sounds, rhonchi, wheezes - *Routine Cardiovascular Exam Present: RRR - *Routine Abdominal Exam Present: soft, normoactive bowel sounds, obese. Absent: tenderness - *Routine Extremities Exam Absent: cyanosis, clubbing, edema - *Routine Skin Exam Present: warm. Absent: rash - *Routine Neurological Exam Present: alert, oriented X3 Assessment and Plan (1) Chest pain Status: Acute Qualifiers: Chest pain type: unspecified Qualified Code(s): R07.9 - Chest pain, unspecified Category: Medical Code(s): R07.9 - Chest pain, unspecified (2) Multifocal atrial tachycardia Status: Acute Category: Medical Code(s): I47.1 - Supraventricular tachycardia (3) Elevated troponin Status: Acute Category: Medical Code(s): R77.8 - Other specified abnormalities of plasma proteins (4) Acute respiratory failure with hypoxia Status: Acute Category: Medical Code(s): J96.01 - Acute respiratory failure with hypoxia (5) Bilateral lower extremity edema Status: Acute Category: Medical Code(s): R60.0 - Localized edema (6) Coronary artery disease due to type 2 diabetes mellitus Status: Acute Category: Medical Code(s): E11.59 - Type 2 diabetes mellitus with other circulatory complications; I25.10 - Atherosclerotic heart disease of [place] coronary artery without angina pectoris - Assessment and plan all Dx Assessment and Plan for all problems:: The patient's disposition is being planned.
--- NOTE | 2021-07-16 09:20 | HMH.PULMPN ---
Internal Medicine - PN: Subj *Date: 07/16/21 *Time: 13:05 Interval history: No acute respiratory vents overnight. Patient admits continued improvement in her symptoms. Exam - Constitutional Constitutional:: Present: no acute distress, comfortable - HENMT Exam HENMT: Present: normocephalic - Eye Exam Eyes:: Present: normal appearance both eyes and related structures - Neck Exam Neck:: Present: normal visual inspection - Respiratory Exam Respiratory:: Present: able to speak in complete sentences, no respiratory distress, rhonchi. Absent: wheezing - Cardiovascular Exam Cardiac:: Present: S1, S2 - GI Exam GI:: Present: soft, no hepatosplenomegaly - Skin Exam Skin: Present: warm, no rash - Neurological Exam Neurological: Present: alert, awake - Extremities Exam Extremities: Present: no cyanosis, no clubbing, edema Assessment and Plan (1) Chest pain Status: Acute Qualifiers: Chest pain type: unspecified Qualified Code(s): R07.9 - Chest pain, unspecified Category: Medical Code(s): R07.9 - Chest pain, unspecified (2) Multifocal atrial tachycardia Status: Acute Category: Medical Code(s): I47.1 - Supraventricular tachycardia (3) Elevated troponin Status: Acute Category: Medical Code(s): R77.8 - Other specified abnormalities of plasma proteins (4) Acute respiratory failure with hypoxia Status: Acute Category: Medical Code(s): J96.01 - Acute respiratory failure with hypoxia (5) Bilateral lower extremity edema Status: Acute Category: Medical Code(s): R60.0 - Localized edema (6) Coronary artery disease due to type 2 diabetes mellitus Status: Acute Category: Medical Code(s): E11.59 - Type 2 diabetes mellitus with other circulatory complications; I25.10 - Atherosclerotic heart disease of [place] coronary artery without angina pectoris - Assessment and plan all Dx Assessment and Plan for all problems:: #Acute on chronic hypoxic hypercarbic respiratory failure: #COPD exacerbation: #Community-acquired pneumonia: 71-year-old COPD on triple inhaler therapy. CAD. Presented with respiratory distress status post NSTEMI left heart cath and stenting. On BiPAP. ABG from admission showed severe hypercarbic respiratory failure with a pH of 7.21 and PCO2 of 79.2. No evidence of hypoxia noted, PO2 of 408. Chest x-ray showed bilateral worsening pulmonary infiltrates right greater than left. Recently was discharged on Augmentin, and Abx were antibiotics to ceftriaxone and azithromycin on admission. Patient has been relatively doing okay with improving oxygen requirements. Chest x-ray from this morning showing improving pulmonary infiltrates. No significant/obvious worsening noted on this morning's chest x-ray. Patient continued to remain on 1 L nasal cannula saturating fine. She noted to have nocturnal hypoxia. Only 1 episode of coughing old clotted blood in the last 24 hours. Improving leukocytosis. Hemoglobin stable. Sputum less than 10 WBC, rare yeast. BAL showing rare yeast, will continue to monitor. Less than 10 WBC. Interval update: Patient received 40 IV Lasix yesterday. Admits continued improvement in her symptoms. On 2 L nasal cannula saturating 93%. Continue to receive antibiotics and breathing treatments. Primary team working on disposition to rehab placement. She just started using flutter valve along with continuing use of her incentive spirometry No episodes of hemoptysis in the last 24 hours Plan:- -Flutter Valve. Continue incentive spirometry -Continue ceftriaxone azithromycin, wean antibiotics to cefdinir 300 BID upon discharge to complete a total of 7-day course -DuoNebs every 6 hours scheduled along with budesonide every 12 scheduled, can be weaned to home inhaler therapy which include Dulera inhaler and Spiriva Respimat inhaler upon discharge. -Follow with cardiology recommendations #Thank you for involving pulmonary in this patient care. We will continue to
[2021-07-16 10:19] LABS: Basophils % 0.3 % (0.1-2.0); Eosinophils # 0.2 K/mm3 (0.0-0.4); Eosinophils % 1.3 % (0.1-12.0); Hematocrit 37.6 % (37.0-47.0); Hemoglobin 12.4 g/dL (12.2-16.2); Lymphocytes # 2.9 K/mm3 (0.7-4.5); Lymphocytes % 21.7 % (10-50); Mean Corpuscular HGB Conc 32.9 g/dL (31.8-35.4); Mean Corpuscular Hemoglobin 29.7 pg (27.0-31.2); Mean Corpuscular Volume 90.3 fl (81-99); Mean Platelet Volume 7.7 fl (7.4-10.4); Monocytes # 0.8 K/mm3 (0.1-1.0); Monocytes % 6.3 % (1.7-9.3); Neutrophils # 9.4 K/mm3 (1.8-7.8); Neutrophils % 70.5 % (37.0-80.0); Platelet Count 363 K/mm3 (142-424); Red Blood Count 4.16 M/mm3 (4.20-5.40); Red Cell Distribution Width 13.7 % (11.5-17.5); White Blood Count 13.3 K/mm3 (4.8-10.8)
[2021-07-16 10:53] LABS: Chloride 97 mmol/L (98-107); Potassium 4.1 mmoL/L (3.5-5.1); Sodium 134 mmol/L (136-145)
[2021-07-16 10:56] LABS: Blood Urea Nitrogen 28 mg/dl (7-17); Creatinine Clearance Estimated 59 mL/min (50-200); Estimated Glomerular Filt Rate 62 ml/min (>60); GFR (African American) 75 ML/MIN (>60)
[2021-07-16 10:57] LABS: Anion Gap 5.1 mEq/L (5-15); Calcium 9.4 mg/dl (8.4-10.2); Carbon Dioxide 36 mmol/L (22.0-30.0); Glucose 134 mg/dl (74-100)
[2021-07-16 11:30] LABS: POC Glucose,Bedside 298 (70-110)
--- NOTE | 2021-07-16 13:35 | DIET.NUTRFU ---
RD saw patent at her request to review discharge diet and food choices. Patient's po intake has improved since first admit. She is currently tolerating cardiac, diabetic diet with 75% consumed at most meals. She lives alone, going to rehab for alittle bit first. RD reviewed the importance of protein intake and low sodium. She has hx of edema to BLE. She does wear compression stocking at home. She was really concerned about her biscuit and gravy- told her 1-2/month might be okay. Encouraged her to review her meal plans in the morning so she can plan ahead. She is also well educated on her diabetic diet, already avoiding most breads and sodas. Provided with a cardiac handout
[2021-07-16 15:48] LABS: POC Glucose,Bedside 221 (70-110)
[2021-07-16 23:07] LABS: POC Glucose,Bedside 245 (70-110)
[2021-07-17] VITALS (12 sets, daily range): BP systolic 112–139; BP diastolic 44–78; PULSE 64–89; RESP 16–18; TEMP 36.5–36.6; O2SAT 90–98; BMI 30.6
--- NOTE | 2021-07-17 05:42 | PC.NURSE ---
Pt alert and oriented this shfit. Able to make needs known. Pt has slept most of the shft wihtout incident. continues to wear 2l of 02 to help maintain her sats. Voice d0 pain and is awaiting rehab placement at this time.
[2021-07-17 06:57] LABS: POC Glucose,Bedside 170 (70-110)
--- NOTE | 2021-07-17 08:36 | HMH.ACPN2 ---
Internal Medicine - PN: Subj *Date: 07/17/21 *Time: 08:36 Interval history: Patient states she is feeling good today. She denies chest pain and shortness of breath. Coughing is less. Sputum appears clear. She is eating without difficulty. She sleeps mostly in the recliner at bedside. Exam Vital signs and Labs for Last 24 Hours: Temp Pulse Resp BP Pulse Ox 97.7 F 75 18 114/76 96 07/17/21 08:00 07/17/21 08:00 07/17/21 08:00 07/17/21 08:00 07/17/21 08:00 Laboratory Results - last 24 hr 07/16/21 09:02: WBC 13.3 H D, RBC 4.16 L, Hgb 12.4, Hct 37.6, MCV 90.3, MCH 29.7, MCHC 32.9, RDW 13.7, Plt Count 363, MPV 7.7, Neut % (Auto) 70.5, Lymph % (Auto) 21.7, Mason % (Auto) 6.3, Eos % (Auto) 1.3, Baso % (Auto) 0.3, Neut # (Auto) 9.4 H, Lymph # (Auto) 2.9, Mason # (Auto) 0.8, Eos # (Auto) 0.2, Baso # (Auto) 0.0 07/16/21 09:02: Sodium 134 L, Potassium 4.1, Chloride 97 L, Carbon Dioxide 36 H, Anion Gap 5.1, BUN 28 H D, Creatinine 0.90 D, Estimated Creat Clear 59, Estimated GFR 62, Est GFR ( Amer) 75 D, Glucose 134 H, Calcium 9.4 07/16/21 11:19: POC Glucose 298 H 07/16/21 15:30: POC Glucose 221 H 07/16/21 22:38: POC Glucose 245 H 07/17/21 06:23: POC Glucose 170 H I & O for Last 24 hours: Intake & Output 07/14/21 07/15/21 07/16/21 07/17/21 11:59 11:59 11:59 11:59 Intake Total 660 / 660 960 / 960 1600 / 1600 1320 / 1320 Output Total 1250 / 1250 1690 / 1690 4150 / 4150 1200 / 1200 Balance -590 / -590 -730 / -730 -2550 / -2550 120 / 120 Weight 164 lb 8 oz 169 lb 1.6 oz 159 lb 3.2 oz 162 lb 1.6 oz Microbiology Reports for the Last 24 Hours: Microbiology 07/12/21 09:51 Sputum - Expectorated Sputum Gram Stain - Final 07/12/21 09:51 Sputum - Expectorated Sputum Sputum Culture - Final Normal Respiratory Nelly - Constitutional no acute distress Comments: Sitting on the bedside and has completed her breakfast. - *Routine Respiratory Exam Present: wheezes, diminished air movement (Posteriorly) - *Routine Cardiovascular Exam Present: RRR - *Routine Abdominal Exam Present: soft, normoactive bowel sounds. Absent: tenderness - *Routine Extremities Exam Absent: edema - *Routine Neurological Exam Present: alert, oriented X3 Assessment and Plan (1) Chest pain Status: Acute Qualifiers: Chest pain type: unspecified Qualified Code(s): R07.9 - Chest pain, unspecified Category: Medical Code(s): R07.9 - Chest pain, unspecified (2) Multifocal atrial tachycardia Status: Acute Category: Medical Code(s): I47.1 - Supraventricular tachycardia (3) Elevated troponin Status: Acute Category: Medical Code(s): R77.8 - Other specified abnormalities of plasma proteins (4) Acute respiratory failure with hypoxia Status: Acute Category: Medical Code(s): J96.01 - Acute respiratory failure with hypoxia (5) Bilateral lower extremity edema Status: Acute Category: Medical Code(s): R60.0 - Localized edema (6) Coronary artery disease due to type 2 diabetes mellitus Status: Acute Category: Medical Code(s): E11.59 - Type 2 diabetes mellitus with other circulatory complications; I25.10 - Atherosclerotic heart disease of [place] coronary artery without angina pectoris - Assessment and plan all Dx Assessment and Plan for all problems:: Patient is stable and awaiting placement as per care management.
--- NOTE | 2021-07-17 09:29 | HMH.PULMPN ---
Internal Medicine - PN: Subj *Date: 07/17/21 *Time: 10:53 Interval history: No acute respiratory events overnight. Denies any acute hemoptysis. Admits continued improvement in her symptoms. Exam - Constitutional Constitutional:: Present: no acute distress, comfortable - HENMT Exam HENMT: Present: normocephalic - Eye Exam Eyes:: Present: normal appearance both eyes and related structures - Neck Exam Neck:: Present: normal visual inspection - Respiratory Exam Respiratory:: Present: able to speak in complete sentences, no respiratory distress. Absent: wheezing - Cardiovascular Exam Cardiac:: Present: S1, S2 - GI Exam GI:: Present: soft - Skin Exam Skin: Present: warm, no rash - Neurological Exam Neurological: Present: alert, awake - Extremities Exam Extremities: Present: no cyanosis, no clubbing, edema Assessment and Plan (1) Chest pain Status: Acute Qualifiers: Chest pain type: unspecified Qualified Code(s): R07.9 - Chest pain, unspecified Category: Medical Code(s): R07.9 - Chest pain, unspecified (2) Multifocal atrial tachycardia Status: Acute Category: Medical Code(s): I47.1 - Supraventricular tachycardia (3) Elevated troponin Status: Acute Category: Medical Code(s): R77.8 - Other specified abnormalities of plasma proteins (4) Acute respiratory failure with hypoxia Status: Acute Category: Medical Code(s): J96.01 - Acute respiratory failure with hypoxia (5) Bilateral lower extremity edema Status: Acute Category: Medical Code(s): R60.0 - Localized edema (6) Coronary artery disease due to type 2 diabetes mellitus Status: Acute Category: Medical Code(s): E11.59 - Type 2 diabetes mellitus with other circulatory complications; I25.10 - Atherosclerotic heart disease of [place] coronary artery without angina pectoris - Assessment and plan all Dx Assessment and Plan for all problems:: #Acute on chronic hypoxic hypercarbic respiratory failure: #COPD exacerbation: #Community-acquired pneumonia: 71-year-old COPD on triple inhaler therapy. CAD. Presented with respiratory distress status post NSTEMI left heart cath and stenting. On BiPAP. ABG from admission showed severe hypercarbic respiratory failure with a pH of 7.21 and PCO2 of 79.2. No evidence of hypoxia noted, PO2 of 408. Chest x-ray showed bilateral worsening pulmonary infiltrates right greater than left. Recently was discharged on Augmentin, and Abx were antibiotics to ceftriaxone and azithromycin on admission. Patient has been relatively doing okay with improving oxygen requirements. Chest x-ray from this morning showing improving pulmonary infiltrates. No significant/obvious worsening noted on this morning's chest x-ray. Patient continued to remain on 1 L nasal cannula saturating fine. She noted to have nocturnal hypoxia. Only 1 episode of coughing old clotted blood in the last 24 hours. Sputum less than 10 WBC, rare yeast. BAL showing rare yeast, will continue to monitor. Less than 10 WBC. Interval update: Patient was weaned to room air this morning, saturating 92%. He is clinically stable awaiting rehab placement at this point of time. Continue to receive antibiotics and nebulizations. Plan:- -Flutter Valve. Continue incentive spirometry -Continue ceftriaxone to complete a total of 7-day course.Day 7/7 -DuoNebs every 6 hours scheduled along with budesonide every 12 scheduled, can be weaned to home inhaler therapy which include Dulera inhaler and Spiriva Respimat inhaler upon discharge. -Follow with cardiology recommendations #Thank you for involving pulmonary in this patient care. We will continue to follow.
[2021-07-17 16:44] LABS: POC Glucose,Bedside 150 (70-110)
--- NOTE | 2021-07-17 18:06 | PC.NURSE ---
she has sat up to chair for most of shift and tolerated well. ambulates to restroom with standby assist. requires 2lnc for o2 support. she is tolerating diet well. no complaints voiced to this rn
[2021-07-17 23:03] LABS: POC Glucose,Bedside 218 (70-110)
[2021-07-18] VITALS: BP 117/48; PULSE 68; PULSE 70; RESP 17; TEMP 36.4; O2SAT 99
[2021-07-18 01:01] LABS: POC Glucose,Bedside 247 (70-110)
[2021-07-18 04:00] VITALS: BP 173/77; PULSE 69; PULSE 73; RESP 15; TEMP 36.6; O2SAT 96
[2021-07-18 05:00] VITALS: BMI 20.9
[2021-07-18 06:14] VITALS: PULSE 60; PULSE 61; O2SAT 97
--- NOTE | 2021-07-18 06:47 | PC.NURSE ---
Pt stable. Able to ambulate to the bathroom with standby assistance. Remains on 2 l nc. Tolerating well. Has call bhardwaj for needs.
[2021-07-18 07:17] LABS: POC Glucose,Bedside 133 (70-110)
[2021-07-18 08:00] VITALS: BP 101/40; PULSE 73; RESP 20; TEMP 36.4; O2SAT 90; O2SAT 93
--- NOTE | 2021-07-18 09:00 | HMH.ACPN2 ---
Internal Medicine - PN: Subj *Date: 07/18/21 *Time: 09:00 Interval history: Patient states she is feeling much better today. She denies any pain or shortness of breath and has been up moving around her room without difficulty. She ate well and slept well. Exam Vital signs and Labs for Last 24 Hours: Temp Pulse Resp BP Pulse Ox 97.5 F L 73 20 101/40 L 90 L 07/18/21 08:00 07/18/21 08:00 07/18/21 08:00 07/18/21 08:00 07/18/21 08:00 Laboratory Results - last 24 hr 07/17/21 12:05: POC Glucose 150 H 07/17/21 17:27: POC Glucose 247 H 07/17/21 22:24: POC Glucose 218 H 07/18/21 05:32: POC Glucose 133 H I & O for Last 24 hours: Intake & Output 07/15/21 07/16/21 07/17/21 07/18/21 11:59 11:59 11:59 11:59 Intake Total 960 / 960 1600 / 1600 1320 / 1320 600 / 600 Output Total 1690 / 1690 4150 / 4150 0 / 0 Balance -730 / -730 -2550 / -2550 -730 / -730 600 / 600 Weight 169 lb 1.6 oz 159 lb 3.2 oz 162 lb 1.6 oz 163 lb - Constitutional no acute distress - *Routine Respiratory Exam Present: decreased breath sounds, CTA bilaterally - *Routine Cardiovascular Exam Present: RRR - *Routine Abdominal Exam Present: soft, normoactive bowel sounds. Absent: tenderness - *Routine Extremities Exam Absent: cyanosis, clubbing, edema - *Routine Skin Exam Present: warm. Absent: rash - *Routine Neurological Exam Present: alert, oriented X3 Assessment and Plan (1) Chest pain Status: Acute Qualifiers: Chest pain type: unspecified Qualified Code(s): R07.9 - Chest pain, unspecified Category: Medical Code(s): R07.9 - Chest pain, unspecified (2) Multifocal atrial tachycardia Status: Acute Category: Medical Code(s): I47.1 - Supraventricular tachycardia (3) Elevated troponin Status: Acute Category: Medical Code(s): R77.8 - Other specified abnormalities of plasma proteins (4) Acute respiratory failure with hypoxia Status: Acute Category: Medical Code(s): J96.01 - Acute respiratory failure with hypoxia (5) Bilateral lower extremity edema Status: Acute Category: Medical Code(s): R60.0 - Localized edema (6) Coronary artery disease due to type 2 diabetes mellitus Status: Acute Category: Medical Code(s): E11.59 - Type 2 diabetes mellitus with other circulatory complications; I25.10 - Atherosclerotic heart disease of [place] coronary artery without angina pectoris - Assessment and plan all Dx Assessment and Plan for all problems:: [facility], which will require a peer to peer review. The patient, however, has expressed a desire to go home with home health physical therapy as she feels well enough and has everything she needs at home. Will discuss with Dr. Moore.
[2021-07-18 10:49] VITALS: PULSE 76; PULSE 78; O2SAT 90
--- NOTE | 2021-07-18 10:54 | HMH.PULMPN ---
Internal Medicine - PN: Subj *Date: 07/18/21 *Time: 10:54 Interval history: No acute respiratory vents overnight. Patient admits continued improvement in her symptoms, admit to return to baseline Exam - Constitutional Constitutional:: Present: no acute distress, comfortable - HENMT Exam HENMT: Present: normocephalic - Eye Exam Eyes:: Present: normal appearance both eyes and related structures - Neck Exam Neck:: Present: normal visual inspection - Respiratory Exam Respiratory:: Present: able to speak in complete sentences, no respiratory distress. Absent: wheezing - Cardiovascular Exam Cardiac:: Present: S1, S2 - GI Exam GI:: Present: soft - Skin Exam Skin: Present: warm, no rash - Neurological Exam Neurological: Present: alert, awake - Extremities Exam Extremities: Present: no cyanosis, no clubbing, edema - Psychiatric Exam Psychiatric: Present: normal affect Assessment and Plan (1) Chest pain Status: Acute Qualifiers: Chest pain type: unspecified Qualified Code(s): R07.9 - Chest pain, unspecified Category: Medical Code(s): R07.9 - Chest pain, unspecified (2) Multifocal atrial tachycardia Status: Acute Category: Medical Code(s): I47.1 - Supraventricular tachycardia (3) Elevated troponin Status: Acute Category: Medical Code(s): R77.8 - Other specified abnormalities of plasma proteins (4) Acute respiratory failure with hypoxia Status: Acute Category: Medical Code(s): J96.01 - Acute respiratory failure with hypoxia (5) Bilateral lower extremity edema Status: Acute Category: Medical Code(s): R60.0 - Localized edema (6) Coronary artery disease due to type 2 diabetes mellitus Status: Acute Category: Medical Code(s): E11.59 - Type 2 diabetes mellitus with other circulatory complications; I25.10 - Atherosclerotic heart disease of [place] coronary artery without angina pectoris - Assessment and plan all Dx Assessment and Plan for all problems:: #Acute on chronic hypoxic hypercarbic respiratory failure: #COPD exacerbation: #Community-acquired pneumonia: 71-year-old COPD on triple inhaler therapy. CAD. Presented with respiratory distress status post NSTEMI left heart cath and stenting. On BiPAP. ABG from admission showed severe hypercarbic respiratory failure with a pH of 7.21 and PCO2 of 79.2. No evidence of hypoxia noted, PO2 of 408. Chest x-ray showed bilateral worsening pulmonary infiltrates right greater than left. Recently was discharged on Augmentin, and Abx were antibiotics to ceftriaxone and azithromycin on admission. Patient has been relatively doing okay with improving oxygen requirements. Chest x-ray from this morning showing improving pulmonary infiltrates. No significant/obvious worsening noted on this morning's chest x-ray. Patient continued to remain on 1 L nasal cannula saturating fine. She noted to have nocturnal hypoxia. Only 1 episode of coughing old clotted blood in the last 24 hours. Sputum less than 10 WBC, rare yeast. BAL showing rare yeast, will continue to monitor. Less than 10 WBC. Interval update: Patient continued to remain on room air during the daytime, patient noted to have nocturnal desaturations and has been using 2 L oxygen therapy. Patient carries a prior diagnosis sleep apnea, has a prescription for noninvasive ventilator therapy however has not been using that for a while. Slight worsening leukocytosis. She will be completing her 7-day course of antibiotics today. Patient will be discharged home on nocturnal oxygen therapy at 2 L . Her resting daytime oxygen saturations were greater than 90% Plan:- -Flutter Valve. Continue incentive spirometry -DuoNebs every 6 hours scheduled along with budesonide every 12 scheduled, can be weaned to home inhaler therapy which include Dulera inhaler and Spiriva Respimat inhaler upon discharge. -Follow with cardiology recommendations #Thank you for involving pulmonary in this patient ca
[2021-07-18 12:00] VITALS: BP 110/55; PULSE 74; RESP 18; TEMP 36.8; O2SAT 94
--- NOTE | 2021-07-18 12:50 | PC.NURSE ---
PT ROOM AIR SAT AT REST IS 82%.
--- NOTE | 2021-07-18 13:48 | HMH.PHAINT ---
I spoke with the patient today about their medication list. Went over the new medications being sent in for the patient, the medications the patient was continuing on, and the medications that the patient was to stop using at home. When we spoke, the patient did not have any questions or concerns. The patient was provided a copy of the medication list and informed on where they could tile picker the medications up at.
--- NOTE | 2021-07-18 14:00 | PC.NURSE ---
discharge has been completed. awaiting transport. family is aware of pt discharge
[2021-07-18 18:02] LABS: POC Glucose,Bedside 219 (70-110)
--- NOTE | 2021-07-19 14:07 | CARE MANAGER ---
Contacted patient related to following up from hospital discharge. Patient states that she is doing well and just came in from outside. 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 ISAC Del Cid
--- NOTE | 2021-07-21 22:08 | HMH.DCSUM ---
General - General Admission date:: 07/10/21 Discharge date: 06/17/21 HPI HPI: This 71 y.o. with chronic lung disease underwent bronchoscopy by Dr. Olea 2 days ago. After her procedure Dr. Olea felt she should be admitted overnight for stabilization. She was requiring BiPap at that point for respiratory stability. After admission her respiratory status stabilized to the point that BiPap was not required and she was maintained overnight on nasal O2. On Thursday Dr. Olea felt that the patient was stable for discharge. The patient developed shortness of breath and chest pain overnight and eventually returned to [facility] where she was found to be in multiatrial tachycardia and elevated troponin. Dr. Shane paredes was contacted and she was taken to the cathode maker. She received one stent in the LAD which allowed markedly improved myocardial circulation via established collateral coronary circulation. Dr. Moore saw the patient in the cathode maker recovery area in company with Dr. Gallardo. Post cath she was in respiratory distress with tight breath sounds and wheezing. Sats were initially less than 90%. Her HR was in 130's. She had 3+ leg edema. In the recovery area she received Metoprolol, SoluMedrol and Lasix IV. She was placed on BiPap with saturations improving into the 95-98% range. Nebulizer treatment resulted in better air movement and decrease in wheezing. She received Clopidogrel per rectum. Family members were kept apprised of the patients status and were able to visit with her in the [facility] recovery area. She will be admitted to Step-Down status for further care. Hospital Course Hospital Course: A pulmonary consult was made and an echo was ordered. The patient's echo post cath showed an EF of 55%. The breadman felt her ABG showed severe hypercarbic respiratory failure. There was no evidence of hypoxia. Her chest x-ray showed worsening bilateral pulmonary infiltrates. She had recently been discharged on Augmentin and her antibiotics were escalated to Rocephin and Zithromax. Her respiratory viral PCR was negative. She was continued on duo nebs and her steroids were weaned to prednisone 40 mg daily. The patient began improving and was weaned off of BiPAP. Her leg edema began improving. She was started on bisoprolol 10 mg daily for tachycardia. On 07/12/2021, the patient complained of some episodes of hemoptysis. A chest x-ray was therefore ordered. It showed a partially improved aeration in the right lung base with persistent left basilar atelectasis this. Her diltiazem was restarted for better blood pressure control. Her blood cultures returned showing no growth and her cough began improving. She had another x-ray on 07/15/2021 which showed a hazy right mid and lower lung base alveolar consolidation. This was slightly worse than the previous exam. She was given a dose of Lasix. Her glucose levels were elevated likely due to steroid treatment. She refused metformin and glimepiride, therefore Januvia and Jardiance were ordered. She was also started on low intensity sliding scale insulin. She was seen by physical therapy for evaluation and they felt she would need rehab placement. It was felt the patient was stable to be discharged but disposition was a problem. The patient seemed disinclined to go to rehab placement and preferred to go home. Her symptoms continue to improve. Pulmonology felt she should complete a 7-day course of Rocephin and should also have DuoNebs every 6 hours along with budesonide every 12 hours. He felt she could be weaned to home inhaler therapy to include Dulera and Spiriva Respimat upon discharge. She was able to get up and move about her room. She began eating and sleeping well. It was felt she should have rehab placement, but a bed could not be found for her. She expressed the desire to go home with home health physical therapy and she was stable to be discharged with follow
== END 2021-07-18 15:51 | disposition home health service (06) | DRG 246 ==
LOC: ER 18:08 → CATHLAB 18:36 → 2ND 07-11 03:19
PROVIDERS: Family Medicine; Nurse Practitioner Family; Admitting Provider Family Medicine; Emergency Provider Emergency Medicine; PCP Family Medicine; Referring Provider Internal Medicine; Visit Provider Family Medicine
PROC: 027034Z Dilation of Coronary Artery, One Artery with Drug-eluting Intraluminal Device, Percutaneous Approach (ICD-10-PCS; principal; 2021-07-10 18:55)
DX: I21.4 Non-ST elevation (NSTEMI) myocardial infarction (principal); J18.9 Pneumonia, unspecified organism; J96.22 Acute and chronic respiratory failure with hypercapnia; J96.21 Acute and chronic respiratory failure with hypoxia; I47.1 Supraventricular tachycardia; J44.1 Chronic obstructive pulmonary disease with (acute) exacerbation; J44.0 Chronic obstructive pulmonary disease with (acute) lower respiratory infection; Z20.822 Contact with and (suspected) exposure to COVID-19; I25.10 Atherosclerotic heart disease of native coronary artery without angina pectoris; E11.69 Type 2 diabetes mellitus with other specified complication; Z96.649 Presence of unspecified artificial hip joint; I25.119 Atherosclerotic heart disease of native coronary artery with unspecified angina pectoris; Z86.718 Personal history of other venous thrombosis and embolism; E78.5 Hyperlipidemia, unspecified; Z87.891 Personal history of nicotine dependence; Z95.5 Presence of coronary angioplasty implant and graft; E11.40 Type 2 diabetes mellitus with diabetic neuropathy, unspecified; R59.1 Generalized enlarged lymph nodes
CPT/HCPCS: 31624; 31653; 36415; 71045; 80048; 80053; 80061; 81001; 82803; 82947; 82962; 83605; 84484; 85007; 85025; 85347; 87040; 87070; 87077; 87102; 87116; 87186; 87205; 87206; 88172; 88173; 88305; 88342; 89051; 92941; 93005; 93306; 93458; 94640; 94660; 94760; 94761; 97110; 97116; 97162; 97165; 97530; 97535; 99152; 99153; 99285; C1725; C1769; C1876; C9606; C9803; G0378; J0456; J0696; J1644; Q9967; U0003; U0005

== ENCOUNTER → 2021-07-24 10:41 | Outpatient (CLI) | payer MEDICARE, MEDICAID, SELFPAY ==
[2021-07-24 12:01] LABS: Hematocrit 38.9 % (37.0-47.0); Hemoglobin 12.5 g/dL (12.2-16.2)
[2021-07-24 12:38] LABS: Blood Urea Nitrogen 13 mg/dl (7-17); Estimated Glomerular Filt Rate 71 ml/min (>60); GFR (African American) 86 ML/MIN (>60)
== END ==
PROVIDERS: PCP Family Medicine; Visit Provider Internal Medicine Pulmonary Disease
DX: R07.9 Chest pain, unspecified; E11.65 Type 2 diabetes mellitus with hyperglycemia; I47.1 Supraventricular tachycardia; R77.8 Other specified abnormalities of plasma proteins; J96.01 Acute respiratory failure with hypoxia; R60.0 Localized edema; Z79.84 Long term (current) use of oral hypoglycemic drugs
CPT/HCPCS: 36415; 82565; 84520; 85014; 85018

== ENCOUNTER → 2021-09-24 12:05 | Outpatient (CLI) | payer MEDICARE, MEDICAID, SELFPAY ==
--- NOTE | 2021-09-24 12:10 | CT_ITS ---
FINAL REPORT TECHNIQUE: Axial images were obtained from the lung apex to the mid abdomen by computed tomography. Coronal reformatted images were obtained. This study was performed with techniques to keep radiation doses as low as reasonably achievable, (ALARA). Individualized dose reduction techniques using automated exposure control or adjustment of mA and/or kV according to the patient''s size were employed. CLINICAL HISTORY: Nodule F/U COMPARISON: May 16, 2021 FINDINGS: There are several borderline size axillary lymph nodes. There is no hilar or mediastinal adenopathy. Heart size is normal. There is severe coronary artery calcification. There is no pericardial or pleural effusion. Limited images of the upper abdomen are unremarkable. On the lung window images, there are mild changes of emphysema and mild pulmonary scarring. There is a calcified granuloma in the left lower lobe. There has been interval resolution of a right lower lobe nodule. There is mild persistent atelectasis or scarring in this region. There is a pleural based nodule in the posterior right lower lobe measuring 4 mm which is stable. No new mass or nodule is identified. On the bone window images there are degenerative changes in the shoulders, left greater than right. IMPRESSION: Marked improvement in right lower lobe nodule. Stable 4 mm posterior right lower lobe nodule. No new abnormality identified. Reviewed, Interpreted and Dictated by Shoaib Booth III, MD Transcribed by Shyla Camargo Authenticated and [facility]
== END ==
PROVIDERS: PCP Family Medicine; Visit Provider Internal Medicine Pulmonary Disease
DX: R91.8 Other nonspecific abnormal finding of lung field (principal)
CPT/HCPCS: 71250

== ENCOUNTER → 2021-10-01 09:13 | Outpatient (CLI) | payer MEDICARE, MEDICAID, SELFPAY ==
[2021-10-01 09:17] LABS: Microscopic, Urine URINE MICROSCOPIC (MICROSCOPIC)
[2021-10-01 14:25] LABS: Hematocrit 34.7 % (37.0-47.0); Hemoglobin 11.5 g/dL (12.2-16.2); Mean Corpuscular HGB Conc 33.2 g/dL (31.8-35.4); Mean Corpuscular Hemoglobin 33.1 pg (27.0-31.2); Mean Corpuscular Volume 99.7 fl (81-99); Platelet Count 416 K/mm3 (142-424); Red Blood Count 3.48 M/mm3 (4.20-5.40); Red Cell Distribution Width 14.6 % (11.5-17.5)
[2021-10-01 14:26] LABS: Appearance,Urine CLEAR (Clear); Bilirubin,Urine Negative (Negative); Blood, Urine Negative (Negative); Color,Urine YELLOW (Yellow); Glucose,Urine (UA) 3+ (Negative); Ketones,Urine Negative (Negative); Leukocyte Esterase,Urine Negative (Negative); Nitrate,Urine Negative (Negative); Protein,Urine Negative (Negative); Urobilinogen,Urine 0.2 EU/dl (0.2)
[2021-10-01 14:29] LABS: Alanine Aminotransferase 39 U/L (12-78); Albumin Level 3.3 g/dl (3.5-5.0); Albumin/Globulin Ratio 1.4 (1.1-1.8); Alkaline Phosphatase 125 U/L (38-126); Anion Gap 11.2 mEq/L (5-15); Aspartate Amino Transferase 36 U/L (14-36); Blood Urea Nitrogen 29 mg/dl (7-17); Carbon Dioxide 32 mmol/L (22.0-30.0); Chloride 97 mmol/L (98-107); Estimated Glomerular Filt Rate 49 ml/min (>60); GFR (African American) 59 ML/MIN (>60); Globulin 2.3 g/dL (1.3-3.2); Glucose 159 mg/dl (74-100); Potassium 4.2 mmoL/L (3.5-5.1); Sodium 136 mmol/L (136-145); Total Protein,Serum 5.6 g/dl (6.3-8.2); Uric Acid 5.3 mg/dl (2.5-6.2)
[2021-10-01 14:38] LABS: Bilirubin,Total < 0.1 mg/dl (0.2-1.3)
[2021-10-01 14:40] LABS: Intact Parathyroid Hormone 143.2 pg/mL (7.5-53.5)
[2021-10-01 14:43] LABS: Creatinine,Urine Random 42 mg/dL (Not Estab.); Hemoglobin A1C 7.9 % (4.0-6.0)
[2021-10-01 14:51] LABS: WBC,Urine Occasional #/hpf (0-3)
[2021-10-01 14:54] LABS: 25-OH Vitamin D, Total 33.1 ng/mL (30-100)
== END ==
PROVIDERS: Visit Provider Internal Medicine Nephrology
DX: E11.9 Type 2 diabetes mellitus without complications (principal); N18.2 Chronic kidney disease, stage 2 (mild); E55.9 Vitamin D deficiency, unspecified; I12.9 Hypertensive chronic kidney disease with stage 1 through stage 4 chronic kidney disease, or unspecified chronic kidney disease; Z79.84 Long term (current) use of oral hypoglycemic drugs
CPT/HCPCS: 36415; 80053; 81001; 82306; 82570; 83036; 83970; 84155; 84550; 85014; 85018; 85048; 85049

== ENCOUNTER → 2022-01-24 08:46 | Outpatient (CLI) | payer MEDICARE, MEDICAID, SELFPAY ==
--- NOTE | 2022-01-24 08:49 | XR_ITS ---
FINAL REPORT TECHNIQUE: Bone densitometry calculations of the lumbar spine and left forearm were obtained. CLINICAL HISTORY: . osteoporosis, bilateral hip replacement FINDINGS: DEXA BONE DENSITY AXIAL SKELETON Using L1-4, the bone mineral density of the spine is 1.135 g/cm2, corresponding to T-score of 0.8. These values are likely falsely elevated secondary to hypertrophic change. Using the left forearm, the bone mineral density of the distal 1/3 is 0.539 g/cm2, corresponding to a T-score of -2.6. NOTE: T-score: Standard deviation compared with peak bone mass of young adult mean. *Following the recommendations of the International Society of Bone Densitometry, classification of hip BMD is based on the lower of two T-scores; total hip or femoral neck. IMPRESSION: Osteoporosis: Lowest T-score is at or below -2.5. This patient's T-score meets the World Health Organization criteria for osteoporosis. Reviewed, Interpreted and Dictated by Shoaib Booth III, MD Transcribed by Shyla Camargo Authenticated and [facility]
== END ==
PROVIDERS: PCP Family Medicine; Visit Provider Nurse Practitioner Family
DX: Z78.0 Asymptomatic menopausal state (principal)
CPT/HCPCS: 77080

== ENCOUNTER 2022-02-16 19:42 | Inpatient (IN) | payer MEDICARE, MEDICAID, SELFPAY ==
[2022-02-16 19:42] VITALS: BP 111/70; PULSE 111; RESP 24; TEMP 36.5; O2SAT 95; BMI 40.6
--- NOTE | 2022-02-16 19:54 | XR_ITS ---
PROCEDURE INFORMATION: Exam: XR Chest Exam date and time: 02/16/2022 8:45 PM Age: 71 years old Clinical indication: Shortness of breath; Additional info: SOA TECHNIQUE: Imaging protocol: Radiologic exam of the chest. Views: 1 view. COMPARISON: CT CHEST WO CON 09/24/2021 12:53 PM FINDINGS: Lungs: Patchy and consolidative airspace opacity in right lower lobe noted. Pleural spaces: Unremarkable. No pleural effusion. No pneumothorax. Heart/Mediastinum: Unremarkable. No cardiomegaly. Bones/joints: Unremarkable. IMPRESSION: Airspace opacity in right lower lobe can be attributed to developing pneumonia or pleural effusion.
--- NOTE | 2022-02-16 19:54 | ECG_ITS ---
APPROVED REPORT Exam: Resting ECG HR:106 bpm ECG Measurements Heart Rate 106 AXES IA 126 P 68 QRSd 96 QRS 58 QT 342 T 70 QTc 404 Conclusion SINUS TACHYCARDIA Left atrial abnormality ST DEPRESSION, CONSIDER SUBENDOCARDIAL INJURY [0.1+ mV ST DEPRESSION] ABNORMAL ECG UNCONFIRMED REPORT Electronically signed by : Barry García MD 02/17/2022 21:11:43
[2022-02-16 20:24] LABS: Influenza A, PCR Not Detected (NotDetected); Influenza B, PCR Not Detected (NotDetected)
[2022-02-16 20:31] LABS: Basophils # 0.1 K/mm3 (0-0.2); Basophils % 0.5 % (0.1-2.0); Eosinophils # 0.2 K/mm3 (0.0-0.4); Eosinophils % 0.8 % (0.1-12.0); Hematocrit 42.1 % (37.0-47.0); Hemoglobin 13.4 g/dL (12.2-16.2); Lymphocytes # 1.3 K/mm3 (0.7-4.5); Lymphocytes % 6.5 % (10-50); Mean Corpuscular HGB Conc 31.8 g/dL (31.8-35.4); Mean Corpuscular Hemoglobin 28.9 pg (27.0-31.2); Mean Corpuscular Volume 91.1 fl (81-99); Mean Platelet Volume 8.2 fl (7.4-10.4); Monocytes # 1.2 K/mm3 (0.1-1.0); Monocytes % 5.8 % (1.7-9.3); Neutrophils # 17.7 K/mm3 (1.8-7.8); Neutrophils % 86.3 % (37.0-80.0); Platelet Count 344 K/mm3 (142-424); Red Blood Count 4.62 M/mm3 (4.20-5.40); Red Cell Distribution Width 14.7 % (11.5-17.5)
[2022-02-16 20:34] LABS: MANUAL DIFFERENTIAL MANUAL DIFFERENTIAL (MANUAL DIFF); White Blood Count 20.5 K/mm3 (4.8-10.8)
--- NOTE | 2022-02-16 20:34 | PC.NURSE ---
RAD at BS
[2022-02-16 20:35] LABS: Alanine Aminotransferase 46 U/L (12-78); Albumin Level 4.1 g/dl (3.5-5.0); Albumin/Globulin Ratio 1.3 (1.1-1.8); Alkaline Phosphatase 115 U/L (38-126); Aspartate Amino Transferase 38 U/L (14-36); Bilirubin,Total 0.7 mg/dl (0.2-1.3); Blood Urea Nitrogen 35 mg/dl (7-17); Calcium 9.9 mg/dl (8.4-10.2); Carbon Dioxide 22 mmol/L (22.0-30.0); Chloride 91 mmol/L (98-107); Creatinine Clearance Estimated 44 mL/min (50-200); Estimated Glomerular Filt Rate 28 ml/min (>60); GFR (African American) 34 ML/MIN (>60); Globulin 3.2 g/dL (1.3-3.2); Glucose 325 mg/dl (74-100); Sodium 137 mmol/L (136-145); Total Protein,Serum 7.3 g/dl (6.3-8.2)
[2022-02-16 20:49] LABS: Troponin I 0.03 ng/ml (0.00-0.034)
[2022-02-16 20:54] LABS: Procalcitonin 11.2 ng/mL (0.0-2.0)
[2022-02-16 21:10] LABS: C-Reactive Protein 391.6 mg/L (0-4); Lactic Acid 3.5 mmol/L (0.7-2.1)
--- NOTE | 2022-02-16 21:12 | HMH.EDWEAK ---
Discharge Plan Disposition Patient Disposition: Admitted As Inpatient Chief Complaint: Weakness Prescriptions Prescriptions: No Action fluticasone propionate 50 mcg/actuation spray,suspension 1 spray NS DAILY 30 Days Qty: 16 Label Comments: 1 SPRAY IN EACH NOSTRIL ONCE DAILY hydroxyzine HCl 25 mg tablet 25 mg PO BID 90 Days Qty: 180 Label Comments: TAKE 1 TABLET BY MOUTH TWO TIMES A DAY clopidogrel 75 mg tablet 75 mg PO DAILY 90 Days Qty: 90 Label Comments: TAKE 1 TABLET BY MOUTH EVERY DAY potassium chloride 10 mEq capsule, extended release 10 meq PO DAILY 90 Days Qty: 90 Label Comments: TAKE 1 CAPSULE BY MOUTH EVERY DAY tramadol-acetaminophen 37.5-325 mg tablet 1 tab PO BIDP PRN (Reason: PAIN) 30 Days Qty: 30 Label Comments: TAKE 1 TABLET BY MOUTH TWO TIMES A DAY montelukast [Singulair] 10 mg tablet 10 mg PO DAILY diltiazem HCl 180 mg capsule,extended release 24hr 180 mg PO DAILY ipratropium-albuterol 0.5 mg-3 mg(2.5 mg base)/3 mL solution for nebulization 3 ml IH QID PRN (Reason: shortness of breath or wheezing) 90 Days Qty: 360 3RF albuterol sulfate [ProAir HFA] 90 mcg/actuation HFA aerosol inhaler 2 puff IH QID PRN (Reason: shortness of breath or wheezing) 90 Days Qty: 8.5 3RF furosemide 20 mg tablet 20 mg PO DAILY bupropion HCl (smoking deter) 150 MG tablet extended release 12 hr 150 mg PO BID nitroglycerin 0.4 MG tablet, sublingual 0.4 mg SL DIRECTED aspirin 81 MG tablet,delayed release (DR/EC) 81 mg PO DAILY vitamin E 400 UNIT capsule 400 unit PO DAILY cholecalciferol (vitamin D3) 1,000 UNIT capsule 2,000 unit PO DAILY pyridoxine (vitamin B6) 100 MG/2.5 ML liquid 100 mg PO DAILY calcitonin (salmon) 30 DOSE/BOT bottle 1 dose NS DAILY [id number] serr 1 EACH tablet 1 each PO BID sitagliptin phosphate 100 MG tablet 100 mg PO DAILY tiotropium bromide 4 GM mist 2 puffs IH DAILY Rx Instructions: 2.5 mcg/actuation ipratropium-albuterol 3 ML solution for nebulization 3 ml IH Q6HP PRN (Reason: shortness of breath or wheezing) albuterol sulfate 8.5 GM HFA aerosol inhaler 2 puff IH Q6HP PRN (Reason: shortness of breath or wheezing) metformin 500 mg tablet 500 mg PO BID rosuvastatin 40 mg tablet 40 mg PO DAILY Jardiance 10 mg tablet 10 mg PO DAILY bisoprolol fumarate 5 MG tablet 10 mg PO DAILY magnesium oxide 400 MG tablet 400 mg PO DAILY budesonide 0.5 MG/2 ML suspension for nebulization 0.5 mg IH BIDRT gabapentin 100 MG capsule 100 mg PO BID budesonide-formoterol 160-4.5 mcg/actuation HFA aerosol inhaler 2 puff IH BID empagliflozin 10 MG tablet 10 mg PO DAILY Spiriva Respimat 1.25 mcg/actuation mist 2 puff IH DAILY Discharge ED Provider: Brian Arce HPI General Chief complaint: Weakness Stated complaint: Weakness Time Seen by Provider: 02/16/22 21:12 Mode of Arrival: EMS Source of Information: Patient, Relative, EMS and Medical Record Limitations: No Limitations Description of Symptoms (Recalled from ER Triage Doc. by RN): pt c/o increasing SOA, weakness, diarrhea, body aches History of Present Illness HPI Narrative: pt with confusion and increased sob with assoc weakness and dec po intake MD Complaint: generalized weakness Onset (ago): day(s) Duration: intermittent Location: generalized Migration: none Severity: moderate Associated symptoms: denies other symptoms Related Data Home Medications Medication Instructions Recorded Confirmed clopidogrel 75 mg tablet 75 mg PO DAILY Antiplatelet 90 05/13/18 02/17/22 days #90 tabs fluticasone propionate 50 1 spray intranasal DAILY Allergy 05/13/18 02/17/22 mcg/actuation nasal symptoms 30 days #16 grams spray,suspension hydroxyzine HCl 25 mg tablet 25 mg PO BID Anxi
[2022-02-16 21:16] LABS: Microscopic, Urine URINE MICROSCOPIC (MICROSCOPIC)
[2022-02-16 21:18] LABS: Appearance,Urine SL CLOUDY (Clear); Blood, Urine 2+ (Negative); Color,Urine YELLOW (Yellow); Glucose,Urine (UA) 3+ (Negative); Ketones,Urine 1+ (Negative); Leukocyte Esterase,Urine Negative (Negative); Nitrate,Urine Negative (Negative); PH,Urine 5.5 (5.0-8.5); Protein,Urine 1+ (Negative); Urobilinogen,Urine 0.2 EU/dl (0.2)
[2022-02-16 21:37] LABS: Lymphocytes % 15 % (10-50); Monocytes % 4 % (2-9); Neutrophils % 68 % (42-76); Platelet Estimate Normal; Rouleaux 2+; Total Cells Counted 100
[2022-02-16 21:40] LABS: Bilirubin,Urine 2+ (Negative)
[2022-02-16 21:43] LABS: Acetone, Serum (Rapid) None Detected (None Detect)
[2022-02-16 21:44] LABS: Bacteria,Urine 4+ /lpf; WBC,Urine Occasional #/hpf (0-3); Yeast,Urine 2+ /lpf
[2022-02-16 22:33] LABS: Erythrocyte Sedimentation Rate 63 mm/hr (0-30)
[2022-02-16 22:39] LABS: Coronavirus 19, PCR Detected (NotDetected)
[2022-02-16 23:25] LABS: Troponin I 0.02 ng/ml (0.00-0.034)
--- NOTE | 2022-02-16 23:55 | PC.NURSE ---
Dr. Mccarthy at [facility] updating pt/family on POC
[2022-02-17] VITALS (15 sets, daily range): BP systolic 109–136; BP diastolic 46–98; PULSE 73–151; RESP 18–22; TEMP 36.5–37.3; O2SAT 94–99; BMI 34.3
--- NOTE | 2022-02-17 00:08 | PC.NURSE ---
maria elena on phone with dr arambula @ [facility], [place]
--- NOTE | 2022-02-17 00:12 | PC.NURSE ---
Pt admitted [facility] to [facility]
[2022-02-17 00:21] LABS: Reflex Lactic Add Lactic Reflex
[2022-02-17 01:10] LABS: Lactic Acid Follow Up (RFLX 1) 1.9 mmol/L (0.7-2.1)
[2022-02-17 01:25] LABS: Troponin I 0.02 ng/ml (0.00-0.034)
--- NOTE | 2022-02-17 01:32 | PC.NURSE ---
Pt arrived via [facility] @ [phone].
--- NOTE | 2022-02-17 03:59 | PC.WOUNDNOTE ---
excoriation and open area to right groin
[2022-02-17 05:30] LABS: POC Glucose,Bedside 184 (70-110)
--- NOTE | 2022-02-17 05:53 | PC.NURSE ---
pt has rested since arriving to floor, was not alert and oriented when she arrived to floor, upon waking up this morning is A&Ox4, has been incontinent of urine, excoriation and some open areas noted to right groin area, remains on 2L NC with coarse crackles noted on auscultation, O2 sats 95-99%, has pitting edema to RLE
--- NOTE | 2022-02-17 07:21 | EXP.PHA.CONS ---
Pharmacy Consult Date: 02/17/22 Time: 07:21 Referring provider: DR. LEWIS Reason for Consult:: VANCOMYCIN DOSING Allergies Allergy/AdvReac Type Severity Reaction Status Date / Time alendronate sodium Allergy Intermediate Dizziness Verified 02/17/22 03:42 [From Fosamax] atorvastatin [From Lipitor] Allergy Intermediate Weakness Verified 02/17/22 03:42 isosorbide Allergy Verified 02/17/22 03:42 tuberculin,PPD,multi-puncture AdvReac Mild POSITIVE Verified 02/17/22 03:42 REACTOR Home Medications Medication Instructions Recorded Confirmed Type clopidogrel 75 mg tablet 75 mg PO DAILY Antiplatelet 90 05/13/18 02/17/22 History days #90 tabs fluticasone propionate 50 1 spray intranasal DAILY Allergy 05/13/18 02/17/22 History mcg/actuation nasal symptoms 30 days #16 grams spray,suspension hydroxyzine HCl 25 mg tablet 25 mg PO BID Anxiety 90 days #180 05/13/18 02/17/22 History tabs montelukast 10 mg tablet 10 mg PO DAILY Asthma 11/09/19 02/17/22 History (Singulair) potassium chloride 10 mEq 10 meq PO DAILY Potassium 11/09/19 02/17/22 History capsule,extended release replacement 90 days #90 caps tramadol 37.5 mg-acetaminophen 325 1 tab PO BIDP PRN PAIN 30 days #30 11/09/19 02/17/22 History mg tablet tabs aspirin 81 mg tablet,delayed 81 mg PO DAILY heart health 01/24/20 02/17/22 History release calcitonin (salmon) 200 1 dose intranasal DAILY 01/24/20 02/17/22 History unit/actuation nasal spray Osteoporosis cholecalciferol (vitamin D3) 25 2,000 unit PO DAILY Diet supplement 01/24/20 02/17/22 History mcg (1,000 unit) capsule glucosamine [id number] 1 each PO BID joint health 01/24/20 02/17/22 History des 1,500 mg-400 unit-100 mg tablet pyridoxine (vitamin B6) 100 mg/2.5 100 mg PO DAILY Diet supplement 01/24/20 02/17/22 History mL oral liquid vitamin E 268 mg (400 unit) capsule 400 unit PO DAILY Diet supplement 01/24/20 02/17/22 History diltiazem HCl 180 mg 180 mg PO DAILY Heart disease 08/28/20 02/17/22 History capsule,extended release 24 hr sitagliptin phosphate 100 mg tablet 100 mg PO DAILY Diabetes 07/04/21 02/17/22 History albuterol sulfate 90 mcg/actuation 2 puff inhalation Q6HP PRN 07/09/21 02/17/22 History aerosol inhaler shortness of breath or wheezing ipratropium 0.5 mg-albuterol 3 mg 3 ml inhalation Q6HP PRN shortness 07/09/21 02/17/22 History (2.5 mg base)/3 mL nebulization of breath or wheezing soln tiotropium bromide 1.25 2 puffs inhalation DAILY COPD 07/09/21 02/17/22 History mcg/actuation mist for inhalation bupropion HCl (smoking deter) 150 150 mg PO BID Depression 07/11/21 02/17/22 History mg tablet,12 hr sustained-release(smoking deterrent) nitroglycerin 0.4 mg sublingual 0.4 mg sublingual DIRECTED 07/11/21 02/17/22 History tablet Chest pain albuterol sulfate 90 mcg/actuation 2 puff inhalation QID PRN 08/06/21 02/17/22 Rx aerosol inhaler (ProAir HFA) shortness of breath or wheezing 90 days #8.5 grams ipratropium 0.5 mg-albuterol 3 mg 3 ml inhalation QID PRN shortness 08/06/21 02/17/22 Rx (2.5 mg base)/3 mL nebulization of breath or wheezing 90 days #360 soln mL furosemide 20 mg tablet 20 mg PO DAILY Fluid 09/10/21 02/17/22 History empagliflozin 10 mg tablet 10 mg PO DAILY Diabetes 02/16/22 02/17/22 History (Jardiance) metformin 500 mg tablet 500 mg PO BID Diabetes 02/16/22 02/17/22 History rosuvastatin 40 mg tablet 40 mg PO DAILY High cholesterol 02/16/22 02/17/22 History bisoprolol fumarate 5 mg tablet 10 mg PO DAILY High blood pressure 02/17/22 02/17/22 History budesonide 0.5 mg/2 mL suspension 0.5 mg IH BIDRT Breathing problems 02/17/22 02/17/22 History for nebulization budesonide-formoterol HFA 160 2 puff inhalation BID Breathing 02/17/22 02/17/22 History mcg-4.5 mcg/actuation aerosol problems inhaler empagliflozin 10 mg tablet 10 mg PO DAILY . 02/17/22 02/17/22 History gabapentin 100 mg capsule 100 m
--- NOTE | 2022-02-17 07:47 | HMH.PHAINT1 ---
Pharmacy Intervention Comments: Medication reconciliation completed via chart review and external fill history. -Mary Rolon, PharmD Candidate 2022
--- NOTE | 2022-02-17 07:48 | HMH.PTWOUND ---
Rehab Inpt Wound Evaluation Rehab IP Wound Evaluation Start: 02/17/22 08:00 Freq: ONCE Status: Active Protocol: Document 02/17/22 07:43 GURMEET (Rec: 02/17/22 07:48 GURMEET [id number]) Rehab PT Wound Assessment Patient Status Premedicated Prior to Dressing Change No Subjective Subjective Pt seems slightly confused - states this rash began yesterday - pt did c/o pain w / spreading skin fold and exposing excoirated area - Practitioner in room w/ wound care - states she will start mystatin and nsg will continue to care for wound Wound Right Lateral Groin Wound Type excoriated area Wound Length (cm) 0.5 Wound Width (cm) 10 Wound Depth (cm) 0.1 Wound Bed Appearance Beefy Red Percentage Granulated (%) 100 Wound Margins Description Indistinct Surrounding Tissue Appearance [place],Bright Red Wound Drainage Description None Drainage Amount None Drainage Odor No Odor Dressing Status Changed,Soiled Primary Dressing Non-Adherent Gauze Pad Comment w/ mystatin Dressing Change Patient Tolerance Tolerated Well Plan/Recommendation Comment No sharp debridement or specialized dressings required - nsg to continue w/ ointment application and dressing changes - no skilled therapy needs at this time Eval Complexity Eval Charge Codes 02120 - Low Complexity G-codes PT Current Status Other PT/OT Status PT Current Status Modifier CM-At least 80% but less than 100% impaired, limited or restricted PHYSICIAN CERTIFICATION: I certify the specified therapy services for Trinity Silvestre are required, authorized, and reviewed every 30 days.
--- NOTE | 2022-02-17 08:48 | EXP.HP ---
History of Present Illness *Admission Date: 01/20/22 *Reason for visit:: Shortness of breath and altered mental status. *History of present illness: Ms. Meza is a 71-year-old patient with multiple multiple medical issues to include hypertension, hyperlipidemia, type 2 diabetes mellitus, type 2 diabetes mellitus, status post angioplasty with stent, COPD, bilateral lower extremity edema, kidney disease, Congestive heart failure, asthma, deep vein thrombosis, arthritis, and history of rheumatic fever who was brought to [facility] emergency room by family due to shortness of breath and altered mental status. This a.m. she states her breathing is somewhat difficult. She denies chest pain although she admits to some chest pain in the right lower anterior chest wall yesterday. Pain has resolved as of today. She does not recall much of yesterday but said all her symptoms started yesterday. She does admit to productive cough at times. She denies any nausea or vomiting but states she has had diarrhea. She cannot recall the frequency or when it started.Currently temperature is 99 and O2 sats are 99% on O2 at 2 L/min. With assessment in the emergency room temperature was found to be 97.7. O2 sats were 95% on nasal O2 at 2 L/min. Also to note white blood cell count was 20,500. Hemoglobin was 13.4. BUN was 35 and creatinine was 1.8. GFR 28. Troponin I was 0.02. C-reactive protein and procalcitonin were both elevated. Also to note her SARS COVID was positive. Lactate was elevated at 3.5. She was given 500 mL of saline IV and started on vancomycin. Levaquin has been ordered. [facility] Medical History (Updated 02/17/22 @ 09:29 by Yomaira Almanzar APRN) Arthritis Bilateral lower extremity edema COPD (chronic obstructive pulmonary disease) Coronary artery disease Diabetes mellitus, type 2 Hyperlipidemia Hypertension Kidney disease Obesity (BMI 30.0-34.9) Rheumatic fever/heart disease Type 2 diabetes mellitus with diabetic neuropathy, without long-term current use of insulin Surgical History (Updated 02/17/22 @ 09:31 by Yomaira Almanzar APRN) History of coronary artery stent placement Family History (Updated 02/17/22 @ 09:32 by Yomaira Almanzar APRN) Diabetes Coronary artery disease Hypertension Social History Smoking Status: Former smoker pack-years: 30 second hand exposure: Yes alcohol intake: never substance use type: denies use current occupational status: retired Travel in the last 8 weeks: Inside the [place] household members: none housing: house current occupational exposures/hazards: No caffeine: Yes Review of Systems Constitutional Constitutional: Reports body ache(s), Reports chills, Reports poor appetite and Reports lethargy Eyes Eyes: Denies change in vision ENT Ears, Nose, Mouth, and Throat: Reports dry mouth, Denies otalgia, Denies sore throat and Denies vertigo *Cardiovascular Cardiovascular: Reports chest pain, Reports dyspnea, Reports irregular heart rhythm and Reports leg edema *Respiratory Respiratory: Reports change in phlegm color, Reports chest congestion, Reports cough and Reports dyspnea *Gastrointestinal Gastrointestinal: Denies heartburn, Denies hematemesis, Reports loose stools, Denies nausea and Denies vomiting *Genitourinary Genitourinary: Denies difficulty voiding *Musculoskeletal Musculoskeletal: Reports abnormal gait (Ambulates in wheelchair and with walker), Reports arthralgias and Reports back pain Integumentary/Breasts Skin/Breast: Reports rash (Beneath bilateral breast) *Neurologic Neurologic: Reports abnormal gait (Ambulates in wheelchair and with walker), Denies convulsions and Denies vertigo Meds Home Medications and Allergies Home Medications Medication Instructions Recorded Confirmed Type clopidogrel 75 mg tablet 75 mg PO DAILY Antiplatelet 90 05/13/18 02/17/22 History days #90 tabs flu
[2022-02-17 09:26] LABS: Basophils # 0.1 K/mm3 (0-0.2); Basophils % 0.3 % (0.1-2.0); Eosinophils # 0.2 K/mm3 (0.0-0.4); Eosinophils % 0.7 % (0.1-12.0); Hematocrit 37.6 % (37.0-47.0); Hemoglobin 12.4 g/dL (12.2-16.2); Lymphocytes # 1.4 K/mm3 (0.7-4.5); Mean Corpuscular Volume 88.1 fl (81-99); Mean Platelet Volume 8.3 fl (7.4-10.4); Monocytes # 1.4 K/mm3 (0.1-1.0); Monocytes % 6.8 % (1.7-9.3); Neutrophils # 17.1 K/mm3 (1.8-7.8); Neutrophils % 85.1 % (37.0-80.0); Platelet Count 222 K/mm3 (142-424); Red Blood Count 4.27 M/mm3 (4.20-5.40); Red Cell Distribution Width 14.7 % (11.5-17.5)
[2022-02-17 09:30] LABS: MANUAL DIFFERENTIAL MANUAL DIFFERENTIAL (MANUAL DIFF)
[2022-02-17 09:40] LABS: Lymphocytes % 12 % (10-50); Monocytes % 4 % (2-9); Neutrophils % 84 % (42-76); Platelet Estimate Normal; RBC Morphology Normal; Total Cells Counted 100
[2022-02-17 09:45] LABS: Blood Urea Nitrogen 29 mg/dl (7-17); Carbon Dioxide 16 mmol/L (22.0-30.0); Chloride 103 mmol/L (98-107); Creatinine Clearance Estimated 61 mL/min (50-200); Estimated Glomerular Filt Rate 49 ml/min (>60); GFR (African American) 59 ML/MIN (>60); Glucose 118 mg/dl (74-100); Sodium 139 mmol/L (136-145)
--- NOTE | 2022-02-17 10:43 | EXP.PULM.CON ---
History of Present Illness History of present illness: Ms. Meza is a 71-year-old female following in pulmonary clinic for COPD pulmonary nodules and adenopathy presented to hospital complaint worsening respiratory failure and worsening productive phlegm and found to be having new oxygen requirements and tested positive for COVID-19 pneumonia and pulmonary was called for further evaluation and management. [facility] Medical History (Updated 02/17/22 @ 10:48 by Devon Olea MD) Acute respiratory failure with hypoxia Arthritis Bilateral lower extremity edema COPD (chronic obstructive pulmonary disease) Coronary artery disease Diabetes mellitus, type 2 Hyperlipidemia Hypertension Kidney disease Obesity (BMI 30.0-34.9) Pneumonia Pneumonia due to COVID-19 virus Rheumatic fever/heart disease Type 2 diabetes mellitus with diabetic neuropathy, without long-term current use of insulin Surgical History (Updated 02/17/22 @ 09:31 by Yomaira Almanzar APRN) History of coronary artery stent placement Family History (Updated 02/17/22 @ 09:32 by Yomaira Almanzar APRN) Other Coronary artery disease Diabetes Hypertension Social History Smoking Status: Former smoker pack-years: 30 second hand exposure: Yes alcohol intake: never substance use type: denies use current occupational status: retired Travel in the last 8 weeks: Inside the [place] household members: none housing: house current occupational exposures/hazards: No caffeine: Yes Review of Systems Constitutional Constitutional: Reports anorexia, Reports body ache(s) and Reports fatigue Eyes Eyes: Denies eye discharge, Denies dry eyes, Denies irritation and Denies itchy eyes ENT Ears, Nose, Mouth, and Throat: Denies lip swelling, Denies throat swelling and Denies vertigo *Cardiovascular Cardiovascular: Reports dyspnea and Reports dyspnea on exertion *Respiratory Respiratory: Reports chest congestion, Reports cough, Reports dyspnea, Reports dyspnea on exertion, Reports excessive phlegm production, Denies hemoptysis, Denies pain on inspiration, Denies pain with cough and Reports wheezing *Gastrointestinal Gastrointestinal: Denies abdominal pain, Denies belching and Denies cramping *Musculoskeletal Musculoskeletal: Reports abnormal gait (Ambulates in wheelchair and with walker) *Neurologic Neurologic: Reports abnormal gait (Ambulates in wheelchair and with walker), Denies convulsions and Denies vertigo Psychiatric Psychiatric: Denies homicidal ideation and Denies suicidal ideation Endocrine Endocrine: Reports fatigue and Denies heat intolerance Hematologic/Lymphatic Hematologic/Lymphatic: Denies easy bleeding and Denies lymphadenopathy Allergic/Immunologic Allergic/Immunologic: Denies itchy eyes, Denies lip swelling, Denies throat swelling and Reports wheezing Pulmonology Exam Inpatient Vital signs and Labs for Last 24 Hours: Temp Pulse Resp BP Pulse Ox 98.3 F 112 H 20 109/77 L 97 02/17/22 08:00 02/17/22 08:00 02/17/22 08:00 02/17/22 08:00 02/17/22 08:00 Laboratory Results - last 24 hr 02/16/22 20:14: WBC 20.5 H*, RBC 4.62, Hgb 13.4, Hct 42.1, MCV 91.1, MCH 28.9, MCHC 31.8, RDW 14.7, Plt Count 344, MPV 8.2, Neut % (Auto) 86.3 H, Lymph % (Auto) 6.5 L, [place] % (Auto) 5.8, Eos % (Auto) 0.8, Baso % (Auto) 0.5, Neut # (Auto) 17.7 H, Lymph # (Auto) 1.3, [place] # (Auto) 1.2 H, Eos # (Auto) 0.2, Baso # (Auto) 0.1, Total Counted 100, Neutrophils % (Manual) 68, Band Neutrophils % 13.0 H, Lymphocytes % (Manual) 15, Monocytes % (Manual) 4, Platelet Estimate Normal, Rouleaux 2+, ESR 63 H 02/16/22 20:14: Sodium 137, Potassium 4.0, Chloride 91 L, Carbon Dioxide 22, Anion Gap 28.0 H, BUN 35 H, Creatinine 1.80 H, Estimated Creat Clear 44, Estimated GFR 28 L, Est GFR ( Amer) 34 L, Glucose 325 H, Calcium 9.9, Total Bilirubin 0.7, AST 38 H, ALT 46, Alkaline Phosphatase 115, Troponin I 0.03, C-Reactive Prote
[2022-02-17 12:14] LABS: POC Glucose,Bedside 116 (70-110)
[2022-02-17 13:18] LABS: ABG HCO3 19.2 mmhg (22.0-26.0); ABG Oxygen Saturation 94 % (90-100); ABG PCO2 33.5 mmhg (35.0-45.0); ABG PH 7.38 mmol/L (7.35-7.45); ABG PO2 68.5 mmhg (80-100); ABG TCO2 20.2 mmhg (23-27)
[2022-02-17 13:23] LABS: Allen's Test Patient Unable; Oxygen 2 LPM NC %; Source Right Brachial
[2022-02-17 16:17] LABS: POC Glucose,Bedside 132 (70-110)
[2022-02-17 22:42] LABS: POC Glucose,Bedside 81 (70-110)
--- NOTE | 2022-02-17 23:39 | ECG_ITS ---
APPROVED REPORT Exam: Resting ECG HR:159 bpm ECG Measurements Heart Rate 159 AXES QRSd 107 QRS 39 QT 221 T 0 QTc 310 Conclusion ATRIAL FIBRILLATION WITH RAPID VENTRICULAR RESPONSE INFERIOR MYOCARDIAL INFARCTION , PROBABLY OLD [40+ ms Q WAVE AND/OR ST/T ABNORMALITY IN II/aVF] ST DEPRESSION, CONSIDER SUBENDOCARDIAL INJURY [0.1+ mV ST DEPRESSION] CRITICAL TEST RESULT UNCONFIRMED REPORT Electronically signed by : Barry García MD 02/18/2022 20:19:21
[2022-02-18] VITALS (20 sets, daily range): BP systolic 107–161; BP diastolic 45–120; PULSE 81–155; RESP 15–30; TEMP 36.6–36.9; O2SAT 93–100
--- NOTE | 2022-02-18 02:22 | PC.NURSE ---
pt admitted to 217 from 201, dilt drip at 10mcg/hr, HR 130-140's but is coming down
--- NOTE | 2022-02-18 02:42 | PC.NURSE ---
HR 140-150's, increased dilt drip to 15mg/hr
--- NOTE | 2022-02-18 04:14 | PC.NURSE ---
Addendum entered by Cindy Healy RN 02/18/22 04:15: still afib on tele monitor Original Note: HR is coming down but slowly, HR one-teens at this time but occasionally bounces back up to 120-130's but short-lived and comes back down to 110-120's; dilt drip at 15mg/hr
[2022-02-18 06:19] LABS: POC Glucose,Bedside 109 (70-110)
[2022-02-18 07:34] LABS: Basophils % 0.2 % (0.1-2.0); Eosinophils % 0.1 % (0.1-12.0); Hematocrit 33.5 % (37.0-47.0); Lymphocytes % 6.8 % (10-50); Mean Corpuscular HGB Conc 31.9 g/dL (31.8-35.4); Mean Corpuscular Hemoglobin 29.3 pg (27.0-31.2); Mean Corpuscular Volume 91.9 fl (81-99); Monocytes # 0.7 K/mm3 (0.1-1.0); Monocytes % 4.6 % (1.7-9.3); Neutrophils # 13.1 K/mm3 (1.8-7.8); Neutrophils % 88.3 % (37.0-80.0); Platelet Count 256 K/mm3 (142-424); Red Blood Count 3.64 M/mm3 (4.20-5.40); Red Cell Distribution Width 14.5 % (11.5-17.5); White Blood Count 14.8 K/mm3 (4.8-10.8)
[2022-02-18 07:36] LABS: Hemoglobin 10.6 g/dL (12.2-16.2); MANUAL DIFFERENTIAL MANUAL DIFFERENTIAL (MANUAL DIFF)
[2022-02-18 07:42] LABS: Alanine Aminotransferase 26 U/L (12-78); Albumin Level 2.6 g/dl (3.5-5.0); Albumin/Globulin Ratio 1.1 (1.1-1.8); Alkaline Phosphatase 120 U/L (38-126); Anion Gap 20.2 mEq/L (5-15); Aspartate Amino Transferase 42 U/L (14-36); Bilirubin,Total 0.3 mg/dl (0.2-1.3); Blood Urea Nitrogen 24 mg/dl (7-17); Calcium 8.4 mg/dl (8.4-10.2); Carbon Dioxide 20 mmol/L (22.0-30.0); Chloride 96 mmol/L (98-107); Creatinine Clearance Estimated 67 mL/min (50-200); Estimated Glomerular Filt Rate 62 ml/min (>60); GFR (African American) 75 ML/MIN (>60); Globulin 2.3 g/dL (1.3-3.2); Glucose 99 mg/dl (74-100); Lactate Dehydrogenase 251 U/L (313-618); Potassium 3.2 mmoL/L (3.5-5.1); Sodium 133 mmol/L (136-145); Total Protein,Serum 4.9 g/dl (6.3-8.2)
[2022-02-18 08:03] LABS: Lymphocytes % 4 % (10-50); Monocytes % 9 % (2-9); Neutrophils % 87 % (42-76); Platelet Estimate Normal; RBC Morphology Normal; Total Cells Counted 100
--- NOTE | 2022-02-18 08:53 | EXP.PN ---
Subjective *Date: 02/18/22 *Time: 09:18 Interval history: Patient states her breathing is not much better this this morning. She denies chest pain. She was moved to stepdown in order to start a Cardizem drip because of an increased heart rate with her atrial fib. Rate has slowed somewhat and is 110-120 this morning. White blood cell count has improved to 14,800. Hemoglobin is 10.6 and hematocrit 33.5. Potassium is low at 3.2 with a BUN of 24 and creatinine 0.9. Exam Data for Last 24 hours Vital signs and Labs for Last 24 Hours: Temp Pulse Resp BP Pulse Ox 98.5 F 111 H 30 H 161/120 H 93 L 02/18/22 04:00 02/18/22 06:23 02/18/22 06:00 02/18/22 06:00 02/18/22 06:23 Laboratory Results - last 24 hr 02/17/22 09:15: WBC 20.0 H, RBC 4.27, Hgb 12.4, Hct 37.6, MCV 88.1, MCH 29.0, MCHC 33.0, RDW 14.7, Plt Count 222 D, MPV 8.3, Neut % (Auto) 85.1 H, Lymph % (Auto) 7.0 L, [place] % (Auto) 6.8, Eos % (Auto) 0.7, Baso % (Auto) 0.3, Neut # (Auto) 17.1 H, Lymph # (Auto) 1.4, [place] # (Auto) 1.4 H, Eos # (Auto) 0.2, Baso # (Auto) 0.1, Total Counted 100, Neutrophils % (Manual) 84 H, Lymphocytes % (Manual) 12, Monocytes % (Manual) 4, Platelet Estimate Normal, RBC Morphology Normal 02/17/22 09:15: Sodium 139, Potassium 4.0, Chloride 103, Carbon Dioxide 16 L, Anion Gap 24.0 H, BUN 29 H, Creatinine 1.10 H D, Estimated Creat Clear 61, Estimated GFR 49 L, Est GFR ( Amer) 59 D, Glucose 118 H D, Calcium 9.0 02/17/22 11:56: Specimen Source Right brachial, O2 % 2 lpm nc, ABG pH 7.38, ABG pCO2 33.5 L, ABG pO2 68.5 L, ABG HCO3 19.2 L, ABG Total CO2 20.2 L, ABG O2 Saturation 94, ABG Base Excess -6.0 L, [place] Test Patient unable 02/17/22 12:07: POC Glucose 116 H 02/17/22 16:09: POC Glucose 132 H 02/17/22 22:33: POC Glucose 81 02/18/22 06:09: POC Glucose 109 02/18/22 06:19: Lactate Dehydrogenase 251 L, C-Reactive Protein 417.0 H 02/18/22 06:19: WBC 14.8 H D, RBC 3.64 L, Hgb 10.6 L D, Hct 33.5 L, MCV 91.9, MCH 29.3, MCHC 31.9, RDW 14.5, Plt Count 256, MPV 9.0, Neut % (Auto) 88.3 H, Lymph % (Auto) 6.8 L, [place] % (Auto) 4.6, Eos % (Auto) 0.1, Baso % (Auto) 0.2, Neut # (Auto) 13.1 H, Lymph # (Auto) 1.0, [place] # (Auto) 0.7, Eos # (Auto) 0.0, Baso # (Auto) 0.0, Total Counted 100, Neutrophils % (Manual) 87 H, Lymphocytes % (Manual) 4 L, Monocytes % (Manual) 9, Platelet Estimate Normal, RBC Morphology Normal 02/18/22 06:19: Sodium 133 L, Potassium 3.2 L, Chloride 96 L, Carbon Dioxide 20 L, Anion Gap 20.2 H, BUN 24 H, Creatinine 0.90, Estimated Creat Clear 67, Estimated GFR 62, Est GFR ( Amer) 75 D, Glucose 99, Calcium 8.4, Total Bilirubin 0.3, AST 42 H, ALT 26 D, Alkaline Phosphatase 120, Total Protein 4.9 L D, Albumin 2.6 L D, Globulin 2.3, Albumin/Globulin Ratio 1.1 I & O for Last 24 hours: Intake & Output 02/15/22 02/16/22 02/17/22 02/18/22 11:59 11:59 11:59 11:59 Intake Total 484 / 484 480 / 480 Output Total 400 / 400 800 / 800 Balance / -320 / -320 Weight 182 lb 1 oz 182 lb 0.994 oz Microbiology Reports for the Last 24 Hours: Microbiology 02/16/22 21:00 Urine,Clean Catch Urine Culture - Preliminary NO GROWTH AFTER 24 HOURS Constitutional Constitutional: no acute distress *Routine Respiratory Exam Respiratory: Present wheezes and crackles *Routine Cardiovascular Exam Cardiovascular: Present irregular rhythm *Routine Abdominal Exam Abdominal: Present soft and normoactive bowel sounds; Absent tenderness or distended *Routine Extremities Exam Extremities: Absent edema (Legs are wrinkled this morning) *Routine Neurological Exam Neurological: Present alert and oriented X3 Assessment and Plan *Assessment and plan (1) Pneumonia due to COVID-19 virus: Status: Acute Category: Medical Code(s): U07.1 - COVID-19; J12.82 - Pneumonia due to coronavirus disease 2019 (2) Pneumonia: Status: Acute Category: Medical Code(s): J18.9 - Pneumonia, unspecified organism (3
--- NOTE | 2022-02-18 10:18 | EXP.PULM.CON ---
History of Present Illness History of present illness: Ms. Myers is a 71-year-old female following in pulmonary clinic for exertional dyspnea, asthma COPD overlap syndrome, tobacco abuse, lung nodules, adenopathy? and lung cancer screening last seen in the clinic in September with stable nodules with other comorbidities including hypertension, diabetes mellitus, CAD status post stenting, CHF presented to the hospital worsening respiratory distress and pulmonary was called for further evaluation [facility] Medical History (Updated 03/02/22 @ 00:00 by Carmina Biggs) Acute respiratory failure with hypoxia Arthritis Atrial fibrillation with rapid ventricular response Bilateral lower extremity edema COPD (chronic obstructive pulmonary disease) Coronary artery disease Diabetes mellitus, type 2 Diabetic foot Gastroenteritis Hyperlipidemia Hypertension Ileus, unspecified Keratosis Kidney disease Multifocal atrial tachycardia Non-STEMI (non-ST elevated myocardial infarction) Obesity (BMI 30.0-34.9) Onychodystrophy Onychogryphosis Pincer nail deformity Pneumonia Pneumonia due to COVID-19 virus Pre-ulcerative calluses Rheumatic fever/heart disease Right lower lobe pneumonia Sepsis Sepsis SIRS (systemic inflammatory response syndrome) Tobacco use Type 2 diabetes mellitus with diabetic neuropathy, without long-term current use of insulin Surgical History (Updated 02/17/22 @ 09:31 by Yomaira Almanzar APRN) History of coronary artery stent placement Family History (Updated 02/17/22 @ 09:32 by Yomaira Almanzar APRN) Other Coronary artery disease Diabetes Hypertension Social History Smoking Status: Former smoker pack-years: 30 second hand exposure: Yes alcohol intake: never substance use type: denies use current occupational status: retired Travel in the last 8 weeks: Inside the [place] household members: none housing: house current occupational exposures/hazards: No caffeine: Yes Review of Systems Constitutional Constitutional: Reports anorexia, Reports body ache(s) and Reports fatigue Eyes Eyes: Denies eye discharge, Denies dry eyes, Denies irritation and Denies itchy eyes ENT Ears, Nose, Mouth, and Throat: Denies lip swelling, Denies throat swelling and Denies vertigo *Cardiovascular Cardiovascular: Reports dyspnea and Reports dyspnea on exertion *Respiratory Respiratory: Reports chest congestion, Reports cough, Reports dyspnea, Reports dyspnea on exertion, Reports excessive phlegm production, Denies hemoptysis, Denies pain on inspiration, Denies pain with cough and Reports wheezing *Gastrointestinal Gastrointestinal: Denies abdominal pain, Denies belching and Denies cramping *Musculoskeletal Musculoskeletal: Reports abnormal gait (Ambulates in wheelchair and with walker) *Neurologic Neurologic: Reports abnormal gait (Ambulates in wheelchair and with walker), Denies convulsions and Denies vertigo Psychiatric Psychiatric: Denies homicidal ideation and Denies suicidal ideation Endocrine Endocrine: Reports fatigue and Denies heat intolerance Hematologic/Lymphatic Hematologic/Lymphatic: Denies easy bleeding and Denies lymphadenopathy Allergic/Immunologic Allergic/Immunologic: Denies itchy eyes, Denies lip swelling, Denies throat swelling and Reports wheezing Pulmonology Exam Inpatient Vital signs and Labs for Last 24 Hours: Temp Pulse Resp BP Pulse Ox 97.9 F 98 H 22 112/45 L 95 02/18/22 08:00 02/18/22 10:00 02/18/22 10:00 02/18/22 10:00 02/18/22 10:00 Laboratory Results - last 24 hr 02/16/22 21:00: Urine Color Yellow, Urine Appearance Sl cloudy, Urine pH 5.5, Ur Specific [place] 1.020, Urine Protein 1+, Urine Glucose (UA) 3+, Urine Ketones 1+, Urine Blood 2+, Urine Nitrate Negative, Urine Bilirubin 2+ A, Urine Urobilinogen 0.2, Ur Leukocyte Esterase Negative, Urine RBC 3-5, Urine WBC Occasional, Ur Squamous Epith Cells 3-5, Urine B
[2022-02-18 12:28] LABS: POC Glucose,Bedside 176 (70-110)
--- NOTE | 2022-02-18 13:12 | EXP.PULM.PN ---
Subjective *Date: 02/18/22 *Time: 13:12 Interval history: No acute respiratory vents overnight. Patient admits continued improvement in her respiratory status. Pulmonology Exam Inpatient Vital signs and Labs for Last 24 Hours: Temp Pulse Resp BP Pulse Ox 98.1 F 81 22 112/45 L 100 02/18/22 11:38 02/18/22 12:06 02/18/22 10:00 02/18/22 10:00 02/18/22 12:06 Laboratory Results - last 24 hr 02/16/22 21:00: Urine Color Yellow, Urine Appearance Sl cloudy, Urine pH 5.5, Ur Specific [place] 1.020, Urine Protein 1+, Urine Glucose (UA) 3+, Urine Ketones 1+, Urine Blood 2+, Urine Nitrate Negative, Urine Bilirubin 2+ A, Urine Urobilinogen 0.2, Ur Leukocyte Esterase Negative, Urine RBC 3-5, Urine WBC Occasional, Ur Squamous Epith Cells 3-5, Urine Bacteria 4+, Urine Yeast 2+ 02/17/22 11:56: Specimen Source Right brachial, O2 % 2 lpm nc, ABG pH 7.38, ABG pCO2 33.5 L, ABG pO2 68.5 L, ABG HCO3 19.2 L, ABG Total CO2 20.2 L, ABG O2 Saturation 94, ABG Base Excess -6.0 L, [place] Test Patient unable 02/17/22 16:09: POC Glucose 132 H 02/17/22 22:33: POC Glucose 81 02/18/22 06:09: POC Glucose 109 02/18/22 06:19: Lactate Dehydrogenase 251 L, C-Reactive Protein 417.0 H 02/18/22 06:19: WBC 14.8 H D, RBC 3.64 L, Hgb 10.6 L D, Hct 33.5 L, MCV 91.9, MCH 29.3, MCHC 31.9, RDW 14.5, Plt Count 256, MPV 9.0, Neut % (Auto) 88.3 H, Lymph % (Auto) 6.8 L, [place] % (Auto) 4.6, Eos % (Auto) 0.1, Baso % (Auto) 0.2, Neut # (Auto) 13.1 H, Lymph # (Auto) 1.0, [place] # (Auto) 0.7, Eos # (Auto) 0.0, Baso # (Auto) 0.0, Total Counted 100, Neutrophils % (Manual) 87 H, Lymphocytes % (Manual) 4 L, Monocytes % (Manual) 9, Platelet Estimate Normal, RBC Morphology Normal 02/18/22 06:19: Sodium 133 L, Potassium 3.2 L, Chloride 96 L, Carbon Dioxide 20 L, Anion Gap 20.2 H, BUN 24 H, Creatinine 0.90, Estimated Creat Clear 67, Estimated GFR 62, Est GFR ( Amer) 75 D, Glucose 99, Calcium 8.4, Total Bilirubin 0.3, AST 42 H, ALT 26 D, Alkaline Phosphatase 120, Total Protein 4.9 L D, Albumin 2.6 L D, Globulin 2.3, Albumin/Globulin Ratio 1.1 02/18/22 12:10: POC Glucose 176 H I & O for Labs for Last 24 Hours: Intake & Output 02/15/22 02/16/22 02/17/22 02/18/22 23:59 23:59 23:59 23:59 Intake Total 964 / 964 240 / 240 Output Total 1200 / 1200 0 / 0 Balance -236 / -236 240 / 240 Weight 215 lb 182 lb 0.994 oz Microbiology Reports for the Last 24 Hours: Microbiology 02/16/22 21:00 Urine,Clean Catch Urine Culture - Preliminary Gram Negative Rods Constitutional: Present moderate distress Head: Present normocephalic and atraumatic ENT: Present normal exam, normal oropharynx and mucous membranes moist Neck: Present normal inspection and full ROM Respiratory: Present respiratory distress, wheezes, diminished air movement and able to speak in complete sentences Cardiac: Present S1/S2, Tachycardia and radial pulses present; Absent Regular Rhythm GI: Present soft and distention; Absent tenderness or guarding Rectal (female): Present deferred (female): Present deferred Skin: Present intact; Absent cyanosis or jaundice Neuro: Present alert, awake and oriented x 3 Extremities: Present normal inspection; Absent clubbing or cyanosis Psychiatric: Present normal affect and cooperative Assessment and Plan *Assessment and plan (1) Pneumonia due to COVID-19 virus: Status: Acute Category: Medical Code(s): U07.1 - COVID-19; J12.82 - Pneumonia due to coronavirus disease 2019 (2) Pneumonia: Status: Acute Category: Medical Code(s): J18.9 - Pneumonia, unspecified organism (3) Acute respiratory failure with hypoxia: Status: Acute Category: Medical Code(s): J96.01 - Acute respiratory failure with hypoxia Plan Ms. Myers is a 71-year-old female following in pulmonary clinic for exertional dyspnea, asthma COPD overlap syndrome, tobacco abuse, lung nodules, adenopathy? and lung cancer screening last seen i
[2022-02-18 17:33] LABS: POC Glucose,Bedside 108 (70-110)
--- NOTE | 2022-02-18 17:41 | PC.NURSE ---
Patient has rested well this shift. she is alert and oriented x 4. pt states that she is unable to ambulate or stand. lung sounds contain scattered rhonchi. bowel sounds are active in all quads. nad. pt has purwick in place at this time. no edema or wounds noted to legs upon assessments.
[2022-02-18 20:56] LABS: POC Glucose,Bedside 131 (70-110)
[2022-02-19] VITALS (18 sets, daily range): BP systolic 109–170; BP diastolic 52–87; PULSE 89–130; RESP 14–27; TEMP 36.5–36.8; O2SAT 90–100
--- NOTE | 2022-02-19 00:25 | PC.NURSE ---
HR 112-130, increased dilt drip to 15mg/hr
[2022-02-19 06:54] LABS: Basophils # 0.1 K/mm3 (0-0.2); Basophils % 0.6 % (0.1-2.0); Eosinophils # 0.1 K/mm3 (0.0-0.4); Eosinophils % 0.6 % (0.1-12.0); Hematocrit 37.3 % (37.0-47.0); Lymphocytes # 1.2 K/mm3 (0.7-4.5); Lymphocytes % 7.1 % (10-50); Mean Corpuscular HGB Conc 33.2 g/dL (31.8-35.4); Mean Corpuscular Hemoglobin 30.1 pg (27.0-31.2); Mean Corpuscular Volume 90.6 fl (81-99); Monocytes # 1.8 K/mm3 (0.1-1.0); Monocytes % 10.6 % (1.7-9.3); Neutrophils # 13.6 K/mm3 (1.8-7.8); Neutrophils % 81.1 % (37.0-80.0); Platelet Count 254 K/mm3 (142-424); Red Blood Count 4.12 M/mm3 (4.20-5.40); Red Cell Distribution Width 14.7 % (11.5-17.5); White Blood Count 16.8 K/mm3 (4.8-10.8)
[2022-02-19 06:56] LABS: Hemoglobin 12.4 g/dL (12.2-16.2); MANUAL DIFFERENTIAL MANUAL DIFFERENTIAL (MANUAL DIFF)
[2022-02-19 07:46] LABS: Lymphocytes % 19 % (10-50); Monocytes % 4 % (2-9); Neutrophils % 77 % (42-76); Platelet Estimate Normal; RBC Morphology Normal; Total Cells Counted 100
[2022-02-19 08:18] LABS: Alanine Aminotransferase 30 U/L (12-78); Alkaline Phosphatase 124 U/L (38-126); Anion Gap 17.3 mEq/L (5-15); Aspartate Amino Transferase 66 U/L (14-36); Bilirubin,Total 0.6 mg/dl (0.2-1.3); Blood Urea Nitrogen 28 mg/dl (7-17); Calcium 9.3 mg/dl (8.4-10.2); Carbon Dioxide 15 mmol/L (22.0-30.0); Chloride 108 mmol/L (98-107); Creatinine Clearance Estimated 67 mL/min (50-200); Estimated Glomerular Filt Rate 55 ml/min (>60); GFR (African American) 66 ML/MIN (>60); Glucose 126 mg/dl (74-100); Potassium 4.3 mmoL/L (3.5-5.1); Sodium 136 mmol/L (136-145)
--- NOTE | 2022-02-19 08:18 | EXP.PN ---
Subjective *Date: 02/19/22 *Time: 08:20 Interval history: Patient states she is better than yesterday. She continues with a cough. Chest wall is sore. She states she just does not feel like eating. She did say she slept during the night. She remains on a Cardizem drip due to increase in heart rate during the night.O2 sats are 93% on 1 L/min. White blood cell count is 16,800. Exam Data for Last 24 hours Vital signs and Labs for Last 24 Hours: Temp Pulse Resp BP Pulse Ox 98.2 F 98 H 22 121/53 L 93 L 02/19/22 00:00 02/19/22 08:00 02/19/22 08:00 02/19/22 08:00 02/19/22 08:00 Laboratory Results - last 24 hr 02/16/22 21:00: Urine Color Yellow, Urine Appearance Sl cloudy, Urine pH 5.5, Ur Specific [place] 1.020, Urine Protein 1+, Urine Glucose (UA) 3+, Urine Ketones 1+, Urine Blood 2+, Urine Nitrate Negative, Urine Bilirubin 2+ A, Urine Urobilinogen 0.2, Ur Leukocyte Esterase Negative, Urine RBC 3-5, Urine WBC Occasional, Ur Squamous Epith Cells 3-5, Urine Bacteria 4+, Urine Yeast 2+ 02/18/22 12:10: POC Glucose 176 H 02/18/22 17:15: POC Glucose 108 02/18/22 20:37: POC Glucose 131 H 02/19/22 05:55: WBC 16.8 H, RBC 4.12 L, Hgb 12.4 D, Hct 37.3, MCV 90.6, MCH 30.1, MCHC 33.2, RDW 14.7, Plt Count 254, MPV 10.0, Neut % (Auto) 81.1 H, Lymph % (Auto) 7.1 L, [place] % (Auto) 10.6 H, Eos % (Auto) 0.6, Baso % (Auto) 0.6, Neut # (Auto) 13.6 H, Lymph # (Auto) 1.2, [place] # (Auto) 1.8 H, Eos # (Auto) 0.1, Baso # (Auto) 0.1, Total Counted 100, Neutrophils % (Manual) 77 H, Lymphocytes % (Manual) 19, Monocytes % (Manual) 4, Platelet Estimate Normal, RBC Morphology Normal I & O for Last 24 hours: Intake & Output 02/16/22 02/17/22 02/18/22 02/19/22 11:59 11:59 11:59 11:59 Intake Total 484 / 484 720 / 720 1370 / 1370 Output Total 400 / 400 800 / 800 3500 / 3500 Balance 84 / 84 -80 / -80 -2130 / -2130 Weight 182 lb 1 oz 182 lb 0.994 oz Microbiology Reports for the Last 24 Hours: Microbiology 02/16/22 21:00 Urine,Clean Catch Urine Culture - Final Citrobacter farmeri 02/16/22 20:14 Blood Blood Culture - Preliminary NO GROWTH AFTER 48 HOURS 02/16/22 20:14 Blood Blood Culture - Preliminary NO GROWTH AFTER 48 HOURS Constitutional Constitutional: no acute distress Comments: Breathing appears easier today. No dyspnea with talking. *Routine Respiratory Exam Respiratory: Present wheezes (Expiratory wheezing posteriorly) *Routine Cardiovascular Exam Cardiovascular: Present irregular rhythm (Remains in atrial fibrillation with more controlled ventricular response.) *Routine Abdominal Exam Abdominal: Present soft and normoactive bowel sounds; Absent tenderness *Routine Extremities Exam Extremities: Present pulses intact; Absent edema or calf tenderness *Routine Neurological Exam Neurological: Present alert and oriented X3 Assessment and Plan *Assessment and plan (1) Pneumonia due to COVID-19 virus: Status: Acute Category: Medical Code(s): U07.1 - COVID-19; J12.82 - Pneumonia due to coronavirus disease 2019 (2) Pneumonia: Status: Acute Category: Medical Code(s): J18.9 - Pneumonia, unspecified organism (3) Acute respiratory failure with hypoxia: Status: Acute Category: Medical Code(s): J96.01 - Acute respiratory failure with hypoxia (4) Hypertension: Status: Chronic Qualifiers: Hypertension type: primary hypertension Qualified Code(s): I10 - Essential (primary) hypertension Category: Medical Code(s): I10 - Essential (primary) hypertension (5) Hyperlipidemia: Status: Chronic Qualifiers: Hyperlipidemia type: mixed hyperlipidemia Qualified Code(s): E78.2 - Mixed hyperlipidemia Category: Medical Code(s): E78.5 - Hyperlipidemia, unspecified (6) Coronary artery disease: Status: Chronic Qualifiers:
--- NOTE | 2022-02-19 08:28 | XR_ITS ---
FINAL REPORT CLINICAL HISTORY: COVID; pneumonia, CHF COMPARISON: February 16, 2022 FINDINGS: The heart is mildly enlarged. The mediastinum is within normal limits. There is patchy airspace opacity in the right lung base. There is a small right pleural effusion. There is no pneumothorax. The bony thorax is intact. IMPRESSION: Patchy airspace opacity in the right lung base with associated small right pleural effusion. Reviewed, Interpreted and Dictated by Haroon Osborn MD Transcribed by Buddy Johnson Authenticated and [facility]
--- NOTE | 2022-02-19 09:55 | EXP.PULM.PN ---
Subjective *Date: 02/19/22 *Time: 11:37 Interval history: No acute respiratory vents overnight. Admits continued improvement in her respiratory symptoms. Pulmonology Exam Inpatient Vital signs and Labs for Last 24 Hours: Temp Pulse Resp BP Pulse Ox 98.1 F 98 H 22 121/53 L 93 L 02/19/22 08:00 02/19/22 08:00 02/19/22 08:00 02/19/22 08:00 02/19/22 08:00 Laboratory Results - last 24 hr 02/18/22 12:10: POC Glucose 176 H 02/18/22 17:15: POC Glucose 108 02/18/22 20:37: POC Glucose 131 H 02/19/22 05:55: WBC 16.8 H, RBC 4.12 L, Hgb 12.4 D, Hct 37.3, MCV 90.6, MCH 30.1, MCHC 33.2, RDW 14.7, Plt Count 254, MPV 10.0, Neut % (Auto) 81.1 H, Lymph % (Auto) 7.1 L, [place] % (Auto) 10.6 H, Eos % (Auto) 0.6, Baso % (Auto) 0.6, Neut # (Auto) 13.6 H, Lymph # (Auto) 1.2, [place] # (Auto) 1.8 H, Eos # (Auto) 0.1, Baso # (Auto) 0.1, Total Counted 100, Neutrophils % (Manual) 77 H, Lymphocytes % (Manual) 19, Monocytes % (Manual) 4, Platelet Estimate Normal, RBC Morphology Normal 02/19/22 06:38: Sodium 136, Potassium 4.3 D, Chloride 108 H, Carbon Dioxide 15 L, Anion Gap 17.3 H, BUN 28 H, Creatinine 1.00, Estimated Creat Clear 67, Estimated GFR 55 L, Est GFR ( Amer) 66, Glucose 126 H, Calcium 9.3, Total Bilirubin 0.6, AST 66 H D, ALT 30, Alkaline Phosphatase 124, Total Protein 6.0 L, Albumin 3.0 L D, Globulin 3.0, Albumin/Globulin Ratio 1.0 L I & O for Labs for Last 24 Hours: Intake & Output 02/16/22 02/17/22 02/18/22 02/19/22 23:59 23:59 23:59 23:59 Intake Total 964 / 964 1160 / 1160 690 / 690 Output Total 1200 / 1200 1800 / 2250 1700 / 1700 Balance -236 / -236 -640 / -1090 -1010 / -1010 Weight 215 lb 182 lb 0.994 oz Microbiology Reports for the Last 24 Hours: Microbiology 02/16/22 21:00 Urine,Clean Catch Urine Culture - Final Citrobacter farmeri 02/16/22 20:14 Blood Blood Culture - Preliminary NO GROWTH AFTER 48 HOURS 02/16/22 20:14 Blood Blood Culture - Preliminary NO GROWTH AFTER 48 HOURS Constitutional: Present moderate distress Head: Present normocephalic and atraumatic ENT: Present normal exam, normal oropharynx and mucous membranes moist Neck: Present normal inspection and full ROM Respiratory: Present respiratory distress, wheezes, diminished air movement and able to speak in complete sentences Cardiac: Present S1/S2, Tachycardia and radial pulses present; Absent Regular Rhythm GI: Present soft and distention; Absent tenderness or guarding Rectal (female): Present deferred (female): Present deferred Skin: Present intact; Absent cyanosis or jaundice Neuro: Present alert, awake and oriented x 3 Extremities: Present normal inspection; Absent clubbing or cyanosis Psychiatric: Present normal affect and cooperative Assessment and Plan *Assessment and plan (1) Pneumonia due to COVID-19 virus: Status: Acute Category: Medical Code(s): U07.1 - COVID-19; J12.82 - Pneumonia due to coronavirus disease 2019 (2) Pneumonia: Status: Acute Category: Medical Code(s): J18.9 - Pneumonia, unspecified organism (3) Acute respiratory failure with hypoxia: Status: Acute Category: Medical Code(s): J96.01 - Acute respiratory failure with hypoxia Plan Ms. Myers is a 71-year-old female following in pulmonary clinic for exertional dyspnea, asthma COPD overlap syndrome, tobacco abuse, lung nodules, adenopathy? and lung cancer screening last seen in the clinic in September with stable nodules with other comorbidities including hypertension, diabetes mellitus, CAD status post stenting, CHF presented to the hospital worsening respiratory distress and pulmonary was called for further evaluation. COVID-19 PCR resulted positive. Chest x-ray on admission personally viewed, right lower lobe consolidation/atelectasis. Significant leukosis on admission 20.5 neutrophilic predominant. Hemodynamically stable.
--- NOTE | 2022-02-19 11:20 | HMH.PTEV ---
Physical Therapy Evaluation Rehab PT IP Evaluation Start: 02/19/22 08:24 Freq: ONCE Status: Active Protocol: Document 02/19/22 11:16 WALLYPAUL (Rec: 02/19/22 11:20 GURMEET [id number]) Subjective/History History History Ms. Meza is a 71-year-old patient with multiple multiple medical issues to include hypertension, hyperlipidemia, type 2 diabetes mellitus, type 2 diabetes mellitus, status post angioplasty with stent, COPD, bilateral lower extremity edema, kidney disease, Congestive heart failure, asthma, deep vein thrombosis, arthritis, and history of rheumatic fever who was brought to [facility] emergency room by family due to shortness of breath and altered mental status. Copoied from H&P Subjective Subjective Pt reports she would love to get OOB and start ambulating Rehab PT IP Eval Objective Appearance Patient Behavior Appropriate,Cooperative Patient Orientation Place,Name,Birthday,Year Difficulty following instructions none Speech Pattern Appropriate Ambulation Patient Able to Ambulate Yes Ambulation Observation IP General Gait Pattern Observation Shuffling Step Ambulation Distance (feet) 3 Ambulation Assistive Device None Ambulation Ability Contact Guard/Hand Hold Balance Standing Balance Steady, wide stance Dynamic Sitting Balance Ability Good Dynamic Standing Balance Ability Fair Transfers Bed Transfer Ability Supervision/Stand by Chair Transfer Ability Supervision/Stand by Sit to Stand Bed Transfer Ability Contact Guard/Hand Hold Sit to Stand Chair Transfer Ability Contact Guard/Hand Hold Rehab PT IP prob,goals,plan Problems Date of Evaluation: 02/19/22 PT IP Problems Transfers,Gait,Balance,Self care,Safety Rehab Potential Rehab Potential Fair Equipment Needs Assistive Devices Rolling / Wheeled Walker Plan PT Intervention Plan Transfers,Gait,Balance,Self care,Safety,Therapeutic Exercise PT Plan Frequency BID Duration LOS Discharge Goals Bed Transfer Ability
[2022-02-19 12:18] LABS: POC Glucose,Bedside 194 (70-110)
--- NOTE | 2022-02-19 14:42 | PC.NURSE ---
diltiazem drip stopped at 1350. Dr Duran states that pt is chronic afib
[2022-02-19 17:13] LABS: POC Glucose,Bedside 185 (70-110)
[2022-02-19 17:13] LABS: POC Glucose,Bedside 86 (70-110)
--- NOTE | 2022-02-19 18:34 | PC.NURSE ---
pt has been very pleasant this shift. alert and oriented x 4. lungs contain scattered wheezes and rhonchi. bowel sounds are active in all quads. pt had PT consult and was excited to work with them. pt has been up to the chair since approx 1000. pt repositioned in the chair when requested. nad. oconnell in place
[2022-02-20] VITALS (16 sets, daily range): BP systolic 104–172; BP diastolic 44–87; PULSE 90–134; RESP 17–22; TEMP 36.3–36.8; O2SAT 97–99; BMI 34.0
[2022-02-20 00:06] LABS: POC Glucose,Bedside 245 (70-110)
--- NOTE | 2022-02-20 05:32 | PC.NURSE ---
Pt HR has been tachy at times this shift. She remains diltiazem gtt. Pt is on RA. Wheezing noted to lung [place]. No c/o soa. BP stable at this time. Has been elevated at times. Pt ambulated with walker and assist x1 to BR. Tolerated fair. Bath given. Call light at bedside.
[2022-02-20 06:15] LABS: Basophils # 0.2 K/mm3 (0-0.2); Basophils % 1.4 % (0.1-2.0); Eosinophils # 0.1 K/mm3 (0.0-0.4); Eosinophils % 0.3 % (0.1-12.0); Hematocrit 37.8 % (37.0-47.0); Hemoglobin 12.2 g/dL (12.2-16.2); Lymphocytes # 1.9 K/mm3 (0.7-4.5); Lymphocytes % 13.7 % (10-50); Mean Corpuscular HGB Conc 32.3 g/dL (31.8-35.4); Mean Corpuscular Hemoglobin 29.8 pg (27.0-31.2); Mean Corpuscular Volume 92.2 fl (81-99); Mean Platelet Volume 9.4 fl (7.4-10.4); Monocytes # 1.7 K/mm3 (0.1-1.0); Monocytes % 12.1 % (1.7-9.3); Neutrophils # 9.9 K/mm3 (1.8-7.8); Neutrophils % 72.4 % (37.0-80.0); Platelet Count 252 K/mm3 (142-424); Red Cell Distribution Width 14.9 % (11.5-17.5); White Blood Count 13.6 K/mm3 (4.8-10.8)
[2022-02-20 06:27] LABS: Chloride 101 mmol/L (98-107); Potassium 3.9 mmoL/L (3.5-5.1); Sodium 134 mmol/L (136-145)
[2022-02-20 06:29] LABS: Alanine Aminotransferase 31 U/L (12-78); Aspartate Amino Transferase 64 U/L (14-36); Blood Urea Nitrogen 33 mg/dl (7-17); Creatinine Clearance Estimated 67 mL/min (50-200); Estimated Glomerular Filt Rate 55 ml/min (>60); GFR (African American) 66 ML/MIN (>60)
[2022-02-20 06:30] LABS: Albumin Level 2.7 g/dl (3.5-5.0); Alkaline Phosphatase 108 U/L (38-126); Anion Gap 13.9 mEq/L (5-15); Bilirubin,Total 0.5 mg/dl (0.2-1.3); Calcium 9.5 mg/dl (8.4-10.2); Carbon Dioxide 23 mmol/L (22.0-30.0); Globulin 2.7 g/dL (1.3-3.2); Glucose 131 mg/dl (74-100); Total Protein,Serum 5.4 g/dl (6.3-8.2)
[2022-02-20 07:09] LABS: POC Glucose,Bedside 139 (70-110)
--- NOTE | 2022-02-20 08:56 | EXP.ACUTE.PN ---
Subjective *Date: 02/20/22 *Time: 08:56 Interval history: Patient is complaining of some abdominal pain today. When she lays down and stretches out she states it seems to go away. She still has somewhat of a cough and a tremor that she states she has had for quite some time but seems to be getting worse. It sometimes prevents her from eating. She denies any chest pain or shortness of breath and remains on room air. Medical Exam Vital signs and Labs for Last 24 Hours: Vital Signs Temp Pulse Pulse Resp BP Pulse Ox 02/20/22 08:00 122 H 20 117/62 97 02/20/22 04:00 97.8 F 114 H 20 172/81 H 98 02/20/22 04:00 110 H 02/20/22 02:00 116 H 17 140/72 98 02/20/22 00:00 97.9 F 112 H 20 134/44 L 97 02/19/22 23:00 109 H 20 148/62 H 96 02/19/22 22:00 108 H 22 170/87 H 100 02/19/22 20:00 130 H 02/19/22 20:00 97.7 F 126 H 22 150/70 H 98 02/19/22 18:00 119 H 20 131/69 98 02/19/22 16:00 97 H 02/19/22 12:00 110 H 02/19/22 16:00 98.0 F 02/19/22 16:00 101 H 22 109/64 L 100 02/19/22 15:30 101 H 100 02/19/22 14:00 94 H 22 125/71 100 02/19/22 12:00 109 H 22 125/65 99 02/19/22 11:19 103 H 02/19/22 11:19 111 H 02/19/22 11:19 90 L 02/19/22 10:00 101 H 22 118/70 100 02/19/22 09:00 101 H 100 Intake and Output 02/19/22 02/20/22 02/20/22 19:59 03:59 11:59 Intake Total 1307 / 1307 Output Total 950 / 2850 1900 / 2850 Balance 357 / -1543 -1900 / -1543 Intake: Intake, Oral Amount 840 / 840 Intake, Total IV Amount 467 / 467 Remdesivir 100 mg In 0.9 % 77 / 77 Sodium Chloride 100 ml @ 100 mls/hr IV Q24H [facility] Rx#:[id number] dilTIAZem HCL 100 mg In 0.9 % 390 / 390 Sodium Chloride 100 ml @ 10 mls /hr IV .Q10H [facility] Rx#:[id number] Output: Output, Urine Amount 950 / 2850 1900 / 2850 Other: Number of Unmeasured Voids 1 0 0 Number of Bowel Movements 1 Weight 180 lb 7 oz Patient Weight 02/20/22 11:59 Weight 180 lb 7 oz Laboratory Results - last 24 hr 02/19/22 05:09: POC Glucose 86 02/19/22 12:03: POC Glucose 194 H 02/19/22 16:58: POC Glucose 185 H 02/19/22 20:40: POC Glucose 245 H 02/20/22 05:38: POC Glucose 139 H 02/20/22 05:57: WBC 13.6 H, RBC 4.10 L, Hgb 12.2, Hct 37.8, MCV 92.2, MCH 29.8, MCHC 32.3, RDW 14.9, Plt Count 252, MPV 9.4, Neut % (Auto) 72.4, Lymph % (Auto) 13.7, [place] % (Auto) 12.1 H, Eos % (Auto) 0.3, Baso % (Auto) 1.4, Neut # (Auto) 9.9 H, Lymph # (Auto) 1.9, [place] # (Auto) 1.7 H, Eos # (Auto) 0.1, Baso # (Auto) 0.2 02/20/22 05:57: Sodium 134 L, Potassium 3.9, Chloride 101, Carbon Dioxide 23, Anion Gap 13.9, BUN 33 H, Creatinine 1.00, Estimated Creat Clear 67, Estimated GFR 55 L, Est GFR ( Amer) 66, Glucose 131 H, Calcium 9.5, Total Bilirubin 0.5, AST 64 H, ALT 31, Alkaline Phosphatase 108, Total Protein 5.4 L, Albumin 2.7 L, Globulin 2.7, Albumin/Globulin Ratio 1.0 L I & O for Labs for Last 24 Hours: Intake & Output 02/17/22 02/18/22 02/19/22 02/20/22 11:59 11:59 11:59 11:59 Intake Total 484 / 484 720 / 720 1610 / 1610 1307 / 1307 Output Total 400 / 400 800 / 800 4500 / 4500 2850 / 2850 Balance 84 / 84 -80 / -80 -2890 / -2890 -1543 / -1543 Weight 182 lb 1 oz 182 lb 0.994 oz 180 lb 7 oz Microbiology Reports for the Last 24 Hours: Microbiology 02/16/22 21:00 Urine,Clean Catch Urine Culture - Final Citrobacter farmeri Constitutional: Present no acute distress Respiratory: Present rhonchi and wheezes Cardiac: Present Tachycardia GI: Present soft; Absent distention, tenderness or guarding Extremities: Present edema Assessment and Plan *Assessment and plan (1) Pneumonia due to COVID-19 virus: Status: Acute Category: Medical Code(s): U07.1 - COVID-19; J12.82 - Pneumonia due to coronavirus disease 2019 (2) Acute respiratory failure with hypoxia:
--- NOTE | 2022-02-20 10:01 | EXP.PULM.PN ---
Subjective *Date: 02/20/22 *Time: 11:58 Interval history: No acute respiratory events overnight. Continued improvement in her respiratory symptoms. Complains of generalized weakness. Patient that she is not ready to go home today. Pulmonology Exam Inpatient Vital signs and Labs for Last 24 Hours: Temp Pulse Resp BP Pulse Ox 98.3 F 122 H 20 117/62 97 02/20/22 08:00 02/20/22 08:00 02/20/22 08:00 02/20/22 08:00 02/20/22 08:00 Laboratory Results - last 24 hr 02/19/22 05:09: POC Glucose 86 02/19/22 12:03: POC Glucose 194 H 02/19/22 16:58: POC Glucose 185 H 02/19/22 20:40: POC Glucose 245 H 02/20/22 05:38: POC Glucose 139 H 02/20/22 05:57: WBC 13.6 H, RBC 4.10 L, Hgb 12.2, Hct 37.8, MCV 92.2, MCH 29.8, MCHC 32.3, RDW 14.9, Plt Count 252, MPV 9.4, Neut % (Auto) 72.4, Lymph % (Auto) 13.7, [place] % (Auto) 12.1 H, Eos % (Auto) 0.3, Baso % (Auto) 1.4, Neut # (Auto) 9.9 H, Lymph # (Auto) 1.9, [place] # (Auto) 1.7 H, Eos # (Auto) 0.1, Baso # (Auto) 0.2 02/20/22 05:57: Sodium 134 L, Potassium 3.9, Chloride 101, Carbon Dioxide 23, Anion Gap 13.9, BUN 33 H, Creatinine 1.00, Estimated Creat Clear 67, Estimated GFR 55 L, Est GFR ( Amer) 66, Glucose 131 H, Calcium 9.5, Total Bilirubin 0.5, AST 64 H, ALT 31, Alkaline Phosphatase 108, Total Protein 5.4 L, Albumin 2.7 L, Globulin 2.7, Albumin/Globulin Ratio 1.0 L I & O for Labs for Last 24 Hours: Intake & Output 02/17/22 02/18/22 02/19/22 02/20/22 23:59 23:59 23:59 23:59 Intake Total 964 / 964 1160 / 1160 1996 / 1996 360 / 360 Output Total 1200 / 1200 1800 / 2250 4450 / 4450 1100 / 1100 Balance -236 / -236 -640 / -1090 -2453 / -2453 -740 / -740 Weight 182 lb 0.994 oz 180 lb 7 oz Microbiology Reports for the Last 24 Hours: Microbiology 02/16/22 21:00 Urine,Clean Catch Urine Culture - Final Citrobacter farmeri Constitutional: Present moderate distress Head: Present normocephalic and atraumatic ENT: Present normal exam, normal oropharynx and mucous membranes moist Neck: Present normal inspection and full ROM Respiratory: Present diminished air movement and able to speak in complete sentences; Absent respiratory distress or wheezes Cardiac: Present S1/S2, Tachycardia and radial pulses present; Absent Regular Rhythm GI: Present soft and distention; Absent tenderness or guarding Rectal (female): Present deferred (female): Present deferred Skin: Present intact; Absent cyanosis or jaundice Neuro: Present alert, awake and oriented x 3 Extremities: Present normal inspection; Absent clubbing or cyanosis Psychiatric: Present normal affect and cooperative Assessment and Plan *Assessment and plan (1) Pneumonia due to COVID-19 virus: Status: Acute Category: Medical Code(s): U07.1 - COVID-19; J12.82 - Pneumonia due to coronavirus disease 2019 (2) Pneumonia: Status: Acute Category: Medical Code(s): J18.9 - Pneumonia, unspecified organism (3) Acute respiratory failure with hypoxia: Status: Acute Category: Medical Code(s): J96.01 - Acute respiratory failure with hypoxia Plan Ms. Myers is a 71-year-old female following in pulmonary clinic for exertional dyspnea, asthma COPD overlap syndrome, tobacco abuse, lung nodules, adenopathy? and lung cancer screening last seen in the clinic in September with stable nodules with other comorbidities including hypertension, diabetes mellitus, CAD status post stenting, CHF presented to the hospital worsening respiratory distress and pulmonary was called for further evaluation. COVID-19 PCR resulted positive. Chest x-ray on admission personally viewed, right lower lobe consolidation/atelectasis. Significant leukosis on admission 20.5 neutrophilic predominant. Hemodynamically stable. Tachycardic. Patient upon admission was initiated on vancomycin and levofloxacin 500 mg every 24 hours along with DuoNebs every 6 scheduled. Needing oxygen comes at 2 L, new from [facility]
--- NOTE | 2022-02-20 10:18 | EXP.PHA.CONS ---
Pharmacy Consult Date: 02/20/22 Time: 10:18 Referring provider: DR. ESQUIVEL Reason for Consult:: VANCOMCYIN DOSING CHANGE Allergies Allergy/AdvReac Type Severity Reaction Status Date / Time alendronate sodium Allergy Intermediate Dizziness Verified 02/17/22 03:42 [From Fosamax] atorvastatin [From Lipitor] Allergy Intermediate Weakness Verified 02/17/22 03:42 isosorbide Allergy Verified 02/17/22 03:42 tuberculin,PPD,multi-puncture AdvReac Mild POSITIVE Verified 02/17/22 03:42 REACTOR Home Medications Medication Instructions Recorded Confirmed Type clopidogrel 75 mg tablet 75 mg PO DAILY Antiplatelet 90 05/13/18 02/17/22 History days #90 tabs fluticasone propionate 50 1 spray intranasal DAILY Allergy 05/13/18 02/17/22 History mcg/actuation nasal symptoms 30 days #16 grams spray,suspension hydroxyzine HCl 25 mg tablet 25 mg PO BID Anxiety 90 days #180 05/13/18 02/17/22 History tabs montelukast 10 mg tablet 10 mg PO DAILY Asthma 11/09/19 02/17/22 History (Singulair) potassium chloride 10 mEq 10 meq PO DAILY Potassium 11/09/19 02/17/22 History capsule,extended release replacement 90 days #90 caps tramadol 37.5 mg-acetaminophen 325 1 tab PO BIDP PRN PAIN 30 days #30 11/09/19 02/17/22 History mg tablet tabs aspirin 81 mg tablet,delayed 81 mg PO DAILY heart health 01/24/20 02/17/22 History release calcitonin (salmon) 200 1 dose intranasal DAILY 01/24/20 02/17/22 History unit/actuation nasal spray Osteoporosis cholecalciferol (vitamin D3) 25 2,000 unit PO DAILY Diet supplement 01/24/20 02/17/22 History mcg (1,000 unit) capsule glucosamine [id number] 1 each PO BID joint health 01/24/20 02/17/22 History des 1,500 mg-400 unit-100 mg tablet pyridoxine (vitamin B6) 100 mg/2.5 100 mg PO DAILY Diet supplement 01/24/20 02/17/22 History mL oral liquid vitamin E 268 mg (400 unit) capsule 400 unit PO DAILY Diet supplement 01/24/20 02/17/22 History diltiazem HCl 180 mg 180 mg PO DAILY Heart disease 08/28/20 02/17/22 History capsule,extended release 24 hr ipratropium 0.5 mg-albuterol 3 mg 3 ml inhalation Q6HP PRN shortness 07/09/21 02/17/22 History (2.5 mg base)/3 mL nebulization of breath or wheezing soln bupropion HCl (smoking deter) 150 150 mg PO BID Depression 07/11/21 02/17/22 History mg tablet,12 hr sustained-release(smoking deterrent) nitroglycerin 0.4 mg sublingual 0.4 mg sublingual DIRECTED 07/11/21 02/17/22 History tablet Chest pain albuterol sulfate 90 mcg/actuation 2 puff inhalation QID PRN 08/06/21 02/17/22 Rx aerosol inhaler (ProAir HFA) shortness of breath or wheezing 90 days #8.5 grams furosemide 20 mg tablet 20 mg PO DAILY Fluid 09/10/21 02/17/22 History empagliflozin 10 mg tablet 10 mg PO DAILY Diabetes 02/16/22 02/17/22 History (Jardiance) metformin 500 mg tablet 500 mg PO BID Diabetes 02/16/22 02/17/22 History rosuvastatin 40 mg tablet 40 mg PO DAILY High cholesterol 02/16/22 02/17/22 History bisoprolol fumarate 10 mg tablet 10 mg PO BID Hypertension 02/17/22 02/17/22 History gabapentin 100 mg capsule 100 mg PO BID Pain 02/17/22 02/17/22 History magnesium oxide 400 mg (241.3 mg 400 mg PO DAILY Supplement 02/17/22 02/17/22 History magnesium) tablet mometasone-formoterol HFA 200 2 inh inhalation BID COPD 02/17/22 02/17/22 History mcg-5 mcg/actuation aerosol inhaler (Dulera) sitagliptin phosphate 100 mg 100 mg PO DAILY Diabetes 02/17/22 02/17/22 History tablet (Januvia) tiotropium bromide 1.25 2 puff inhalation DAILY Breathing 02/17/22 02/17/22 History mcg/actuation mist for inhalation problems (Spiriva Respimat) New Prescriptions to Start Prescriptions: Height: 1.55 m Weight: 81.845 kg Laboratory Results:: Laboratory Results - last 24 hr 02/19/22 05:09: POC Glucose 86 02/19/22 12:03: POC Glucose 194 H 02/19/22 16:58: POC Glucose 185 H 02/19/22 20:40: POC Glucose 245 H 02/20/22 05:38: POC Gluc
[2022-02-20 22:04] LABS: POC Glucose,Bedside 227 (70-110)
[2022-02-21] VITALS (16 sets, daily range): BP systolic 79–146; BP diastolic 46–79; PULSE 76–134; RESP 20–25; TEMP 36.3–36.7; O2SAT 90–100; BMI 34.7
--- NOTE | 2022-02-21 04:58 | PC.NURSE ---
No acute changes this shift. Pt remains afib on telemetry. Has been tachycardic at times. BP has been elevated at times. She has been incontinent of urine. Purewick in place. (R) Fold of skin with excoriation has improved. Call light within reach.
[2022-02-21 05:39] LABS: POC Glucose,Bedside 169 (70-110)
--- NOTE | 2022-02-21 08:14 | EXP.ACUTE.PN ---
Subjective *Date: 02/21/22 *Time: 08:14 Interval history: Patient states she is feeling a little bit better this morning. She denies any pain. Her cough seems to have improved. She did well with therapy yesterday and got up and sat in a chair. She was to get up this morning. She is trying to eat. Medical Exam Vital signs and Labs for Last 24 Hours: Vital Signs Temp Pulse Pulse Resp BP Pulse Ox 02/21/22 06:55 110 H 02/21/22 06:00 118 H 23 103/72 L 100 02/21/22 04:00 97.4 F L 116 H 23 139/46 L 95 02/21/22 03:45 110 H 02/20/22 20:00 120 H 02/21/22 02:00 109 H 22 117/53 L 92 L 02/21/22 00:00 98.1 F 108 H 25 H 146/68 H 100 02/20/22 22:00 119 H 22 118/70 98 02/20/22 20:00 98.2 F 118 H 17 125/87 97 02/20/22 21:36 115 H 02/20/22 21:36 117 H 02/20/22 12:17 118 H 02/20/22 18:32 134 H 02/20/22 18:00 110 H 20 115/70 97 02/20/22 16:00 90 02/20/22 15:20 97.4 F L 02/20/22 14:00 96 H 18 107/61 L 98 02/20/22 11:54 97.8 F 02/20/22 10:00 111 H 18 104/61 L 98 Intake and Output 02/20/22 02/21/22 02/21/22 19:59 03:59 11:59 Intake Total 820 / 1070 250 / 1070 Output Total 300 / 300 0 / 300 Balance 520 / 770 250 / 770 Intake: Intake, Oral Amount 720 / 720 Intake, Total IV Amount 100 / 350 250 / 350 Remdesivir 100 mg In 0.9 % 100 / 100 Sodium Chloride 100 ml @ 100 mls/hr IV Q24H SARAH Rx#:[id number] Vancomycin/Water For Inj (Peg) 250 / 250 1.25 gm In 250 ml @ 125 mls/hr IV Q24H SARAH Rx#:[id number] Output: Output, Urine Amount 300 / 300 0 / 300 Other: Number of Unmeasured Voids 1 Weight 183 lb 12.8 oz Patient Weight 02/21/22 11:59 Weight 183 lb 12.8 oz Laboratory Results - last 24 hr 02/20/22 20:41: POC Glucose 227 H 02/21/22 05:32: POC Glucose 169 H I & O for Labs for Last 24 Hours: Intake & Output 02/18/22 02/19/22 02/20/22 02/21/22 11:59 11:59 11:59 11:59 Intake Total 720 / 720 1610 / 1610 1667 / 1667 1070 / 1070 Output Total 800 / 800 4500 / 4500 2850 / 2850 300 / 300 Balance -80 / -80 -2890 / -2890 -1183 / -1183 770 / 770 Weight 182 lb 0.994 oz 180 lb 7 oz 183 lb 12.8 oz Constitutional: Present no acute distress Respiratory: Present rhonchi and wheezes Cardiac: Present Tachycardia GI: Present soft; Absent distention, tenderness or guarding Extremities: Absent edema Assessment and Plan *Assessment and plan (1) Pneumonia due to COVID-19 virus: Status: Acute Category: Medical Code(s): U07.1 - COVID-19; J12.82 - Pneumonia due to coronavirus disease 2019 (2) Acute respiratory failure with hypoxia: Status: Acute Category: Medical Code(s): J96.01 - Acute respiratory failure with hypoxia (3) Hypertension: Status: Chronic Qualifiers: Hypertension type: primary hypertension Qualified Code(s): I10 - Essential (primary) hypertension Category: Medical Code(s): I10 - Essential (primary) hypertension (4) Hyperlipidemia: Status: Chronic Qualifiers: Hyperlipidemia type: mixed hyperlipidemia Qualified Code(s): E78.2 - Mixed hyperlipidemia Category: Medical Code(s): E78.5 - Hyperlipidemia, unspecified (5) Coronary artery disease: Status: Chronic Qualifiers: Coronary Disease-Associated Artery/Lesion type: ch[place] artery [place] vs. transplanted heart: ch[place]koot heart Associated angina: with other forms of angina Qualified Code(s): I25.118 - Atherosclerotic heart disease of ch[place]koot coronary artery with other forms of angina pectoris Category: Medical Code(s): I25.10 - Atherosclerotic heart disease of ch[place] coronary artery without angina pectoris (6) COPD (chronic obstructive pulmonary disease): Status: Chronic Category: Medical Code(s): J44.9 - Chronic obstructive pulmonary
--- NOTE | 2022-02-21 10:03 | EXP.PULM.PN ---
Subjective *Date: 02/21/22 *Time: 13:07 Interval history: No acute respiratory vents overnight. Continues to remain on room air. Pulmonology Exam Inpatient Vital signs and Labs for Last 24 Hours: Temp Pulse Resp BP Pulse Ox 98.0 F 110 H 23 103/72 L 99 02/21/22 08:00 02/21/22 06:55 02/21/22 06:00 02/21/22 06:00 02/21/22 08:00 Laboratory Results - last 24 hr 02/20/22 20:41: POC Glucose 227 H 02/21/22 05:32: POC Glucose 169 H I & O for Labs for Last 24 Hours: Intake & Output 02/18/22 02/19/22 02/20/22 02/21/22 23:59 23:59 23:59 23:59 Intake Total 1160 / 1160 1996 / 1996 1180 / 1180 730 / 730 Output Total 1800 / 2250 4450 / 4450 1400 / 1400 0 / 0 Balance -640 / -1090 -2453 / -2453 -220 / -220 730 / 730 Weight 180 lb 7 oz 183 lb 12.8 oz Microbiology Reports for the Last 24 Hours: Microbiology 02/16/22 21:00 Urine,Clean Catch Urine Culture - Final Citrobacter farmeri Constitutional: Present moderate distress Head: Present normocephalic and atraumatic ENT: Present normal exam, normal oropharynx and mucous membranes moist Neck: Present normal inspection and full ROM Respiratory: Present diminished air movement and able to speak in complete sentences; Absent respiratory distress or wheezes Cardiac: Present S1/S2, Tachycardia and radial pulses present; Absent Regular Rhythm GI: Present soft and distention; Absent tenderness or guarding Rectal (female): Present deferred (female): Present deferred Skin: Present intact; Absent cyanosis or jaundice Neuro: Present alert, awake and oriented x 3 Extremities: Present normal inspection; Absent clubbing or cyanosis Psychiatric: Present normal affect and cooperative Assessment and Plan *Assessment and plan (1) Pneumonia due to COVID-19 virus: Status: Acute Category: Medical Code(s): U07.1 - COVID-19; J12.82 - Pneumonia due to coronavirus disease 2019 (2) Pneumonia: Status: Acute Category: Medical Code(s): J18.9 - Pneumonia, unspecified organism (3) Acute respiratory failure with hypoxia: Status: Acute Category: Medical Code(s): J96.01 - Acute respiratory failure with hypoxia Plan Ms. Myers is a 71-year-old female following in pulmonary clinic for exertional dyspnea, asthma COPD overlap syndrome, tobacco abuse, lung nodules, adenopathy? and lung cancer screening last seen in the clinic in September with stable nodules with other comorbidities including hypertension, diabetes mellitus, CAD status post stenting, CHF presented to the hospital worsening respiratory distress and pulmonary was called for further evaluation. COVID-19 PCR resulted positive. Chest x-ray on admission personally viewed, right lower lobe consolidation/atelectasis. Significant leukosis on admission 20.5 neutrophilic predominant. Hemodynamically stable. Tachycardic. Patient upon admission was initiated on vancomycin and levofloxacin 500 mg every 24 hours along with DuoNebs every 6 scheduled. Needing oxygen comes at 2 L, new from baseline but not needing any oxygen. ABG , did not show any evidence of hypercarbic respiratory failure. Continue to hypoxic respiratory failure with a PO2 68.4 on 2 L nasal cannula CRP significantly elevated at 417. LDH low at 251. Urine growing Citrobacter sensitive to levofloxacin. Chest x-ray from from 02/19 reviewed, relatively stable, continue to show patchy airspace disease right medial lung along with small right pleural effusion. Interval update: Stable respiratory status. Continue to remain on room air. Continue to receive remdesivir and levofloxacin. A. fib uncontrolled, cardiology following. Plan: Continue to remain on room air. Oxygen as needed to maintain O2 saturation goal of 90% and above. Continue levofloxacin 750mg x 5 days Continue remdesivir x 5 days Continue Trelegy 100 inhaler while inpatient. Patient can be discharged on home inhaler therapy which include D
[2022-02-21 10:41] LABS: Basophils # 0.1 K/mm3 (0-0.2); Eosinophils % 0.1 % (0.1-12.0); Hematocrit 36.4 % (37.0-47.0); Lymphocytes # 1.5 K/mm3 (0.7-4.5); Lymphocytes % 10.1 % (10-50); Mean Corpuscular HGB Conc 33.1 g/dL (31.8-35.4); Mean Corpuscular Hemoglobin 29.6 pg (27.0-31.2); Mean Corpuscular Volume 89.5 fl (81-99); Mean Platelet Volume 8.6 fl (7.4-10.4); Monocytes # 1.6 K/mm3 (0.1-1.0); Monocytes % 11.1 % (1.7-9.3); Neutrophils # 11.2 K/mm3 (1.8-7.8); Neutrophils % 77.7 % (37.0-80.0); Platelet Count 346 K/mm3 (142-424); Red Blood Count 4.07 M/mm3 (4.20-5.40); White Blood Count 14.4 K/mm3 (4.8-10.8)
[2022-02-21 10:54] LABS: Chloride 99 mmol/L (98-107); Potassium 3.6 mmoL/L (3.5-5.1); Sodium 132 mmol/L (136-145)
[2022-02-21 10:57] LABS: Alanine Aminotransferase 29 U/L (12-78); Albumin Level 2.7 g/dl (3.5-5.0); Alkaline Phosphatase 113 U/L (38-126); Anion Gap 15.6 mEq/L (5-15); Aspartate Amino Transferase 51 U/L (14-36); Bilirubin,Total 0.5 mg/dl (0.2-1.3); Blood Urea Nitrogen 34 mg/dl (7-17); Calcium 8.9 mg/dl (8.4-10.2); Carbon Dioxide 21 mmol/L (22.0-30.0); Creatinine Clearance Estimated 68 mL/min (50-200); Estimated Glomerular Filt Rate 55 ml/min (>60); GFR (African American) 66 ML/MIN (>60); Globulin 2.6 g/dL (1.3-3.2); Glucose 199 mg/dl (74-100); Total Protein,Serum 5.3 g/dl (6.3-8.2)
--- NOTE | 2022-02-21 11:17 | EXP.CARD.CON ---
History of Present Illness History of Present Illness Consult date: 02/21/22 Requesting physician: Jack Moore Consult reason: atrial fibrillation Chief complaint: Covid, A. fib with RVR Additional Medical History:: 1.? Coronary disease with history of coronary artery stenting approximately 2014 A. NSTEMI, 07/10/21, JAYA to ostial proximal left main supplying all 3 vessels including LAD, circumflex and dominant RCA. 2.? History of rheumatic fever 3.? Tobacco use since age 12 A.? COPD B. Abnormal CT of the lung, 05/16/2021, highly concerning for neoplasia C. Pulmonary PET scan, 05/30/2021, bilateral hypermetabolic subpleural opacities in the lower lobes. Hypermetabolism does not convincingly correlate with the right lower lobe nodule and could be infectious, inflammatory or neoplastic. 4.? Arthritis 5.? Anxiety 6.? Hypertension A. Echocardiogram, 06/2021, mild left atrial enlargement, normal LV size, EF 55%, no regional wall motion abnormalities. Mild MR and TR. 7.? Hyperlipidemia, on statin therapy 8.? Diabetes mellitus, type II, treated since 2018 9.? Carotid artery stenosis, followed by Dr. Guevara per patient. 10.? Arthritis head to toe per patient 11. History of congestive heart Failure per chart History of present illness: 71-year-old white female admitted for shortness of breath and found to have COVID pneumonia. During hospitalization patient has developed atrial fibrillation with rapid ventricular response despite escalating doses of beta-mark and now calcium channel mark therapy. Cardiology consulted for evaluation and recommendations. Initial EKG on admission was sinus tachycardia 106 bpm. Follow-up EKG on 02/17/2022 showed atrial fibrillation with a rapid ventricular response at 159 bpm. [facility] Disclaimer: The information contained in this section may have been updated after the patient was seen, as this information can be updated by other users. Medical History (Updated 02/21/22 @ 13:59 by SANYA Aragon) Acute respiratory failure with hypoxia Arthritis Bilateral lower extremity edema COPD (chronic obstructive pulmonary disease) Coronary artery disease Diabetes mellitus, type 2 Hyperlipidemia Hypertension Kidney disease Obesity (BMI 30.0-34.9) Pneumonia Pneumonia due to COVID-19 virus Rheumatic fever/heart disease Type 2 diabetes mellitus with diabetic neuropathy, without long-term current use of insulin Surgical History (Updated 02/17/22 @ 09:31 by Yomaira Almanzar APRN) History of coronary artery stent placement Family History (Updated 02/17/22 @ 09:32 by Yomaira Almanzar APRN) Diabetes Coronary artery disease Hypertension Social History Smoking Status: Former smoker pack-years: 30 second hand exposure: Yes alcohol intake: never substance use type: denies use current occupational status: retired Travel in the last 8 weeks: Inside the [place] household members: none housing: house current occupational exposures/hazards: No caffeine: Yes Review of Systems Review of Systems Review of systems:: pertinent systems reviewed and negative unless documented below ENT Ears, Nose, Mouth, and Throat: Denies vertigo *Cardiovascular Cardiovascular: Reports dyspnea and Reports palpitations *Respiratory Respiratory: Reports dyspnea *Musculoskeletal Musculoskeletal: Reports abnormal gait (Ambulates in wheelchair and with walker) *Neurologic Neurologic: Reports abnormal gait (Ambulates in wheelchair and with walker), Denies convulsions and Denies vertigo Endocrine Endocrine: Reports palpitations Exam Data for Last 24 hours Vital signs and Labs for Last 24 Hours: Temp Pulse Resp BP Pulse Ox 98.0 F 129 H 20 95/62 L 100 02/21/22 08:00 02/21/22 10:00 02/21/22 10:00 02/21/22 10:00 02/21/22 10:00 Laboratory Results - last 24 hr 02/20/22 20:41: POC Glucose 227 H 02/21/22 05:32: POC Glucose 169 H
--- NOTE | 2022-02-21 13:54 | CA_ITS ---
APPROVED REPORT EXAM: Comprehensive 2D, Doppler, and color-flow Echocardiogram Division Field Inspector: ELOY Pederson, RVS Ht: 5 ft 1 in Wt: 183lbs BSA: 1.82 HR: 120 bpm BP: 150/80 mmHg Rhythm: Atrial Fibrillation Indications: Covid, Sepsis, Afib, Rheumatic heart disease 2D Dimensions IVSd 0.67 cm F: 0.6-1.0 LVEF (Visual) 30.00 % PWd 0.74 cm F: 0.6 - 1.0 LVDd 5.07 cm F: 3.9 - 5.3 LVDs 4.10 cm F: 2.2 - 3.5 Conclusion 1. Limited echocardiogram is performed to evaluate left ventricular systolic function. 2. Normal left ventricular size, estimated ejection fraction 55% with no regional wall motion abnormality. 3. No significant pericardial effusion noted. Electronically signed by : Sander Valdez MD 02/21/2022 15:50:46
[2022-02-21 17:39] LABS: POC Glucose,Bedside 180 (70-110)
--- NOTE | 2022-02-21 17:59 | PC.NURSE ---
PT IS RESTING IN BED. ALERT AND ORIENTED X4. IV ACCESS HAS BEEN ATTEMPTED MULTIPLE TIMES WITH ULTRASOUND. PT HAD AN ULTRASOUND GUIDED IV IN THE [facility] HOWEVER INFILTRATED DURING CT THAT WAS ORDERED PER CARDIOLOGY. CARDIOLOGY NOTIFIED. CT WAS CANCELLED. NOTIFIED PCP. ORDERED MIDLINE. STAFF WAS UNABLE TO PUT IN A MIDLINE. NOTIFIED PCP AND HE STATED HE WANTED SOME KIND OF PERIPHERAL IV. AFTER MULTIPLE ATTEMPTS PETER OSULLIVAN RN WAS ABLE TO INSERT REJ 20 G IV.
[2022-02-21 20:49] LABS: POC Glucose,Bedside 237 (70-110)
[2022-02-21 21:34] LABS: Vancomycin,Trough 11.7 ug/mL (5.0-10.0)
[2022-02-22] VITALS (8 sets, daily range): BP systolic 102–147; BP diastolic 55–108; PULSE 65–104; RESP 20–24; TEMP 36.3–36.8; O2SAT 91–97; BMI 34.5
[2022-02-22 03:10] LABS: Vancomycin,Peak 51.2 ug/ml (11-39)
--- NOTE | 2022-02-22 03:26 | PC.NURSE ---
notified Jv in nightwatch of peak and trough levels. stated he would let pharmacy know and to continue with vanc dosage.
[2022-02-22 08:13] LABS: POC Glucose,Bedside 173 (70-110)
--- NOTE | 2022-02-22 08:50 | EXP.ACUTE.PN ---
Subjective *Date: 02/22/22 *Time: 08:50 Interval history: Patient with no new complaints today. Medical Exam Vital signs and Labs for Last 24 Hours: Vital Signs Temp Pulse Pulse Resp BP Pulse Ox 02/22/22 06:59 100 H 02/22/22 05:00 100 H 02/22/22 04:00 98.2 F 65 20 122/72 93 L 02/21/22 21:00 110 H 02/21/22 20:00 122 H 02/21/22 23:40 97.9 F 95 H 20 128/67 94 L 02/21/22 21:01 122 H 120/58 L 02/21/22 20:00 97.8 F 76 20 79/60 L 93 L 02/21/22 16:00 113 H 02/21/22 11:37 117 H 02/21/22 15:19 97.6 F 128 H 24 132/79 90 L 02/21/22 12:00 97.6 F 91 H 20 104/53 L 95 02/21/22 10:00 129 H 20 95/62 L 100 Intake and Output 02/21/22 02/22/22 02/22/22 23:59 07:59 15:59 Output Total 400 / 400 Balance -400 / 390 Output: Output, Urine Amount 400 / 400 Other: Number of Unmeasured Voids 0 Weight 182 lb 15.739 oz Patient Weight 02/22/22 23:59 Weight 182 lb 15.739 oz Laboratory Results - last 24 hr 02/21/22 10:10: WBC 14.4 H, RBC 4.07 L, Hgb 12.0 L, Hct 36.4 L, MCV 89.5, MCH 29.6, MCHC 33.1, RDW 15.0, Plt Count 346 D, MPV 8.6, Neut % (Auto) 77.7, Lymph % (Auto) 10.1, [place] % (Auto) 11.1 H, Eos % (Auto) 0.1, Baso % (Auto) 1.0, Neut # (Auto) 11.2 H, Lymph # (Auto) 1.5, [place] # (Auto) 1.6 H, Eos # (Auto) 0.0, Baso # (Auto) 0.1 02/21/22 10:10: Sodium 132 L, Potassium 3.6, Chloride 99, Carbon Dioxide 21 L, Anion Gap 15.6 H, BUN 34 H, Creatinine 1.00, Estimated Creat Clear 68, Estimated GFR 55 L, Est GFR ( Amer) 66, Glucose 199 H, Calcium 8.9, Total Bilirubin 0.5, AST 51 H, ALT 29, Alkaline Phosphatase 113, Total Protein 5.3 L, Albumin 2.7 L, Globulin 2.6, Albumin/Globulin Ratio 1.0 L 02/21/22 17:32: POC Glucose 180 H 02/21/22 20:24: POC Glucose 237 H 02/21/22 21:00: Vancomycin Trough 11.7 H 02/22/22 02:05: Vancomycin Peak 51.2 H* 02/22/22 06:18: POC Glucose 173 H I & O for Labs for Last 24 Hours: Intake & Output 02/19/22 02/20/22 02/21/22 02/22/22 23:59 23:59 23:59 23:59 Intake Total 1996 / 1996 1180 / 1180 790 / 790 Output Total 4450 / 4450 1400 / 1400 400 / 400 Balance -2453 / -2453 -220 / -220 390 / 390 Weight 180 lb 7 oz 183 lb 12.8 oz 182 lb 15.739 oz Microbiology Reports for the Last 24 Hours: Microbiology 02/16/22 20:14 Blood Blood Culture - Final NO GROWTH AFTER 5 DAYS 02/16/22 20:14 Blood Blood Culture - Final NO GROWTH AFTER 5 DAYS Constitutional: Present no acute distress Respiratory: Present rhonchi and wheezes Cardiac: Present Tachycardia GI: Present soft; Absent distention, tenderness or guarding Extremities: Absent edema Assessment and Plan *Assessment and plan (1) Pneumonia due to COVID-19 virus: Status: Acute Category: Medical Code(s): U07.1 - COVID-19; J12.82 - Pneumonia due to coronavirus disease 2019 (2) Acute respiratory failure with hypoxia: Status: Acute Category: Medical Code(s): J96.01 - Acute respiratory failure with hypoxia (3) Hypertension: Status: Chronic Qualifiers: Hypertension type: primary hypertension Qualified Code(s): I10 - Essential (primary) hypertension Category: Medical Code(s): I10 - Essential (primary) hypertension (4) Hyperlipidemia: Status: Chronic Qualifiers: Hyperlipidemia type: mixed hyperlipidemia Qualified Code(s): E78.2 - Mixed hyperlipidemia Category: Medical Code(s): E78.5 - Hyperlipidemia, unspecified (5) Coronary artery disease: Status: Chronic Qualifiers: Coronary Disease-Associated Artery/Lesion type: [place] artery [place] vs. transplanted heart: [place] heart Associated angina: with other forms of angina Qualified Code(s): I25.118 - Atherosclerotic heart disease of [place] coronary artery with other forms of angina pectoris Category: Medical
--- NOTE | 2022-02-22 09:56 | EXP.PHA.CONS ---
Pharmacy Consult Date: 02/22/22 Time: 09:56 Referring provider: DR. ESQUIVEL Reason for Consult:: VANCOMYCIN PEAK AND TROUGH LEVEL Allergies Allergy/AdvReac Type Severity Reaction Status Date / Time alendronate sodium Allergy Intermediate Dizziness Verified 02/17/22 03:42 [From Fosamax] atorvastatin [From Lipitor] Allergy Intermediate Weakness Verified 02/17/22 03:42 isosorbide Allergy Verified 02/17/22 03:42 tuberculin,PPD,multi-puncture AdvReac Mild POSITIVE Verified 02/17/22 03:42 REACTOR Home Medications Medication Instructions Recorded Confirmed Type clopidogrel 75 mg tablet 75 mg PO DAILY Antiplatelet 90 05/13/18 02/17/22 History days #90 tabs fluticasone propionate 50 1 spray intranasal DAILY Allergy 05/13/18 02/17/22 History mcg/actuation nasal symptoms 30 days #16 grams spray,suspension hydroxyzine HCl 25 mg tablet 25 mg PO BID Anxiety 90 days #180 05/13/18 02/17/22 History tabs montelukast 10 mg tablet 10 mg PO DAILY Asthma 11/09/19 02/17/22 History (Singulair) potassium chloride 10 mEq 10 meq PO DAILY Potassium 11/09/19 02/17/22 History capsule,extended release replacement 90 days #90 caps tramadol 37.5 mg-acetaminophen 325 1 tab PO BIDP PRN PAIN 30 days #30 11/09/19 02/17/22 History mg tablet tabs aspirin 81 mg tablet,delayed 81 mg PO DAILY heart health 01/24/20 02/17/22 History release calcitonin (salmon) 200 1 dose intranasal DAILY 01/24/20 02/17/22 History unit/actuation nasal spray Osteoporosis cholecalciferol (vitamin D3) 25 2,000 unit PO DAILY Diet supplement 01/24/20 02/17/22 History mcg (1,000 unit) capsule glucosamine [id number] 1 each PO BID joint health 01/24/20 02/17/22 History des 1,500 mg-400 unit-100 mg tablet pyridoxine (vitamin B6) 100 mg/2.5 100 mg PO DAILY Diet supplement 01/24/20 02/17/22 History mL oral liquid vitamin E 268 mg (400 unit) capsule 400 unit PO DAILY Diet supplement 01/24/20 02/17/22 History diltiazem HCl 180 mg 180 mg PO DAILY Heart disease 08/28/20 02/17/22 History capsule,extended release 24 hr ipratropium 0.5 mg-albuterol 3 mg 3 ml inhalation Q6HP PRN shortness 07/09/21 02/17/22 History (2.5 mg base)/3 mL nebulization of breath or wheezing soln bupropion HCl (smoking deter) 150 150 mg PO BID Depression 07/11/21 02/17/22 History mg tablet,12 hr sustained-release(smoking deterrent) nitroglycerin 0.4 mg sublingual 0.4 mg sublingual DIRECTED 07/11/21 02/17/22 History tablet Chest pain albuterol sulfate 90 mcg/actuation 2 puff inhalation QID PRN 08/06/21 02/17/22 Rx aerosol inhaler (ProAir HFA) shortness of breath or wheezing 90 days #8.5 grams furosemide 20 mg tablet 20 mg PO DAILY Fluid 09/10/21 02/17/22 History empagliflozin 10 mg tablet 10 mg PO DAILY Diabetes 02/16/22 02/17/22 History (Jardiance) metformin 500 mg tablet 500 mg PO BID Diabetes 02/16/22 02/17/22 History rosuvastatin 40 mg tablet 40 mg PO DAILY High cholesterol 02/16/22 02/17/22 History bisoprolol fumarate 10 mg tablet 10 mg PO BID Hypertension 02/17/22 02/17/22 History gabapentin 100 mg capsule 100 mg PO BID Pain 02/17/22 02/17/22 History magnesium oxide 400 mg (241.3 mg 400 mg PO DAILY Supplement 02/17/22 02/17/22 History magnesium) tablet mometasone-formoterol HFA 200 2 inh inhalation BID COPD 02/17/22 02/17/22 History mcg-5 mcg/actuation aerosol inhaler (Dulera) sitagliptin phosphate 100 mg 100 mg PO DAILY Diabetes 02/17/22 02/17/22 History tablet (Januvia) tiotropium bromide 1.25 2 puff inhalation DAILY Breathing 02/17/22 02/17/22 History mcg/actuation mist for inhalation problems (Spiriva Respimat) New Prescriptions to Start Prescriptions: Height: 1.55 m Weight: 83 kg Laboratory Results:: Laboratory Results - last 24 hr 02/21/22 10:10: WBC 14.4 H, RBC 4.07 L, Hgb 12.0 L, Hct 36.4 L, MCV 89.5, MCH 29.6, MCHC 33.1, RDW 15.0, Plt Count 346 D, MPV 8.6, Neut % (Auto) 77.7, Lymph
--- NOTE | 2022-02-22 12:11 | EXP.PHA.PN ---
Subjective *Date: 02/22/22 *Time: 12:11 Medical Exam Vital signs and Labs for Last 24 Hours: Vital Signs Temp Pulse Pulse Resp BP Pulse Ox 02/22/22 10:20 91 L 02/22/22 08:00 97.7 F 104 H 22 147/91 H 94 L 02/22/22 06:59 100 H 02/22/22 05:00 100 H 02/22/22 04:00 98.2 F 65 20 122/72 93 L 02/21/22 21:00 110 H 02/21/22 20:00 122 H 02/21/22 23:40 97.9 F 95 H 20 128/67 94 L 02/21/22 21:01 122 H 120/58 L 02/21/22 20:00 97.8 F 76 20 79/60 L 93 L 02/21/22 16:00 113 H 02/21/22 15:19 97.6 F 128 H 24 132/79 90 L Intake and Output 02/21/22 02/22/22 02/22/22 23:59 07:59 15:59 Intake Total 240 / 240 Output Total 400 / 400 500 / 500 Balance -400 / 390 -260 / -260 Intake: Intake, Oral Amount 240 / 240 Output: Output, Urine Amount 400 / 400 500 / 500 Other: Number of Unmeasured Voids 0 Weight 83 kg 83 kg Patient Weight 02/22/22 23:59 Weight 83 kg Laboratory Results - last 24 hr 02/21/22 17:32: POC Glucose 180 H 02/21/22 20:24: POC Glucose 237 H 02/21/22 21:00: Vancomycin Trough 11.7 H 02/22/22 02:05: Vancomycin Peak 51.2 H* 02/22/22 06:18: POC Glucose 173 H I & O for Labs for Last 24 Hours: Intake & Output 02/19/22 02/20/22 02/21/22 02/22/22 23:59 23:59 23:59 23:59 Intake Total 1996 1180 / 1180 790 / 790 240 / 240 Output Total 4450 / 4450 1400 / 1400 400 / 400 500 / 500 Balance -2453 / -2453 -220 / -220 390 / 390 -260 / -260 Weight 81.845 kg 83.37 kg 83 kg Microbiology Reports for the Last 24 Hours: Microbiology 02/16/22 20:14 Blood Blood Culture - Final NO GROWTH AFTER 5 DAYS 02/16/22 20:14 Blood Blood Culture - Final NO GROWTH AFTER 5 DAYS The patient's infection will respond to the chosen ABx?: Yes Is the patient receiving the right drug, dose, and route?: Yes Could a more targeted ABx be ordered?: No
[2022-02-22 13:04] LABS: POC Glucose,Bedside 228 (70-110)
[2022-02-22 16:31] LABS: POC Glucose,Bedside 196 (70-110)
--- NOTE | 2022-02-22 18:07 | PC.NURSE ---
Applied 02 @ 2-3 L NC this shift for kailash. Pt denies any c/o's at this time. Pure wick in place. VSS. Continues to be afib on tele. CB in reach. Meds per may.
[2022-02-22 22:34] LABS: POC Glucose,Bedside 223 (70-110)
[2022-02-23] VITALS (11 sets, daily range): BP systolic 127–163; BP diastolic 62–118; PULSE 90–123; RESP 16–22; TEMP 36.5–36.8; O2SAT 91–97
--- NOTE | 2022-02-23 03:36 | PC.NURSE ---
No acute changes. Pt has rested well this shift. No complaints stated. Remains on 3L O2 NC. Rhonchi noted to BUL. Pt is afib on telemetry. Tachy at times. Pt has purewick in place. No BM. Call light within reach.
[2022-02-23 06:15] LABS: POC Glucose,Bedside 196 (70-110)
--- NOTE | 2022-02-23 08:29 | EXP.ACUTE.PN ---
Subjective *Date: 02/23/22 *Time: 08:29 Interval history: This patient is clinically stable at this point. She states she she has not been out of bed the past 2 days. She feels that she is not going to be capable of taking care of herself at home. She lives alone. She depends on her neighbors for assistance. There is no family members available. She probably should be placed in a facility at least for rehab purposes. Medical Exam Vital signs and Labs for Last 24 Hours: Vital Signs Temp Pulse Pulse Resp BP Pulse Ox FiO2 02/23/22 08:19 98.2 F 121 H 22 135/93 H 97 02/23/22 04:00 90 02/23/22 04:00 98.2 F 123 H 18 143/62 H 93 L 02/22/22 20:00 100 H 02/23/22 00:00 100 H 02/23/22 00:00 98.0 F 104 H 20 133/83 91 L 02/22/22 20:00 97.7 F 98 H 22 143/108 H 91 L 02/22/22 16:00 97.4 F L 92 H 24 138/89 95 02/22/22 16:00 90 02/22/22 18:30 32 02/22/22 12:00 100 H 02/22/22 12:00 97.6 F 76 24 102/55 L 97 02/22/22 10:20 91 L Intake and Output 02/22/22 02/23/22 02/23/22 19:59 03:59 11:59 Intake Total 700 / 1000 300 / 1000 Output Total 750 / 1950 800 / 1950 400 / 1950 Balance -50 / -950 -800 / -950 -100 / -950 Intake: Intake, Oral Amount 600 / 900 300 / 900 Intake, Total IV Amount 100 / 100 Remdesivir 100 mg In 0.9 % 100 / 100 Sodium Chloride 100 ml @ 100 mls/hr IV Q24H [facility] Rx#:[id number] Output: Output, Urine Amount 750 / 1950 800 / 1950 400 / 1950 Other: Number of Unmeasured Voids 0 0 Weight 183 lb 6 oz Patient Weight 02/23/22 11:59 Weight 183 lb 6 oz Laboratory Results - last 24 hr 02/22/22 12:49: POC Glucose 228 H 02/22/22 15:23: POC Glucose 196 H 02/22/22 22:03: POC Glucose 223 H 02/23/22 06:01: POC Glucose 196 H I & O for Labs for Last 24 Hours: Intake & Output 02/20/22 02/21/22 02/22/22 02/23/22 11:59 11:59 11:59 11:59 Intake Total 1667 / 1667 1550 / 1550 300 / 300 1000 / 1000 Output Total 2850 / 2850 300 / 300 900 / 900 1950 / 1950 Balance -1183 / -1183 1250 / 1250 -600 / -600 -950 / -950 Weight 180 lb 7 oz 183 lb 12.8 oz 182 lb 15.739 oz 183 lb 6 oz Microbiology Reports for the Last 24 Hours: Microbiology 02/17/22 10:00 Sputum - Expectorated Sputum Gram Stain - Final Head: Present normocephalic Neck: Present full ROM and trachea midline Respiratory: Present decreased breath sounds; Absent rales or wheezes Cardiac: Present Irregularly Regular (100) GI: Present soft (Obese); Absent tenderness Rectal (female): Present deferred (female): Present deferred Extremities: Present edema Skin: Present intact Assessment and Plan *Assessment and plan (1) Pneumonia due to COVID-19 virus: Status: Acute Category: Medical Code(s): U07.1 - COVID-19; J12.82 - Pneumonia due to coronavirus disease 2019 (2) Acute respiratory failure with hypoxia: Status: Acute Category: Medical Code(s): J96.01 - Acute respiratory failure with hypoxia (3) Atrial fibrillation with rapid ventricular response: Status: Acute Category: Medical Code(s): I48.91 - Unspecified atrial fibrillation (4) Debility: Status: Acute Category: Medical Code(s): R53.81 - Other malaise (5) Hypertension: Status: Chronic Qualifiers: Hypertension type: primary hypertension Qualified Code(s): I10 - Essential (primary) hypertension Category: Medical Code(s): I10 - Essential (primary) hypertension (6) COPD (chronic obstructive pulmonary disease): Status: Chronic Category: Medical Code(s): J44.9 - Chronic obstructive pulmonary disease, unspecified (7) Type 2 diabetes mellitus with diabetic neuropathy, without long-term current use of insulin: Status: Acute Category: Medical Code(s): E11.40 - Type 2 diabetes mellitus with diabetic neuropathy, unspecifi
[2022-02-23 08:57] LABS: Chloride 109 mmol/L (98-107); Potassium 5.3 mmoL/L (3.5-5.1); Sodium 131 mmol/L (136-145)
[2022-02-23 09:00] LABS: Anion Gap 11.3 mEq/L (5-15); Blood Urea Nitrogen 26 mg/dl (7-17); Calcium 9.3 mg/dl (8.4-10.2); Carbon Dioxide 16 mmol/L (22.0-30.0); Creatinine Clearance Estimated 68 mL/min (50-200); Estimated Glomerular Filt Rate 55 ml/min (>60); GFR (African American) 66 ML/MIN (>60); Glucose 180 mg/dl (74-100)
[2022-02-23 10:29] LABS: Basophils # 0.1 K/mm3 (0-0.2); Basophils % 0.7 % (0.1-2.0); Eosinophils # 0.1 K/mm3 (0.0-0.4); Eosinophils % 0.3 % (0.1-12.0); Hematocrit 33.9 % (37.0-47.0); Hemoglobin 10.8 g/dL (12.2-16.2); Lymphocytes # 1.3 K/mm3 (0.7-4.5); Lymphocytes % 8.3 % (10-50); Mean Corpuscular Volume 90.9 fl (81-99); Mean Platelet Volume 8.2 fl (7.4-10.4); Monocytes % 6.7 % (1.7-9.3); Neutrophils # 12.8 K/mm3 (1.8-7.8); Neutrophils % 83.9 % (37.0-80.0); Platelet Count 466 K/mm3 (142-424); Red Blood Count 3.73 M/mm3 (4.20-5.40); Red Cell Distribution Width 15.1 % (11.5-17.5); White Blood Count 15.2 K/mm3 (4.8-10.8)
[2022-02-23 10:32] LABS: MANUAL DIFFERENTIAL MANUAL DIFFERENTIAL (MANUAL DIFF)
--- NOTE | 2022-02-23 11:03 | DIET.NUTRFU ---
Reviewing meal intake, it has decreased over last day or two to 10-25% was up to 50%. According to provider note her motivation and movement has been less also and case mgt has been consulted for placement. She has supplements in place. Will continue to monitor and encourage po intake. LBM noted 02/19, urine output good with minimal IVF provided. Electrolytes imbalance with depleted Na and elevated K.
[2022-02-23 11:16] LABS: Lymphocytes % 12 % (10-50); Monocytes % 15 % (2-9); Neutrophils % 73 % (42-76); Platelet Estimate Slight Increase; RBC Morphology Normal; Total Cells Counted 100
[2022-02-23 16:34] LABS: POC Glucose,Bedside 258 (70-110)
[2022-02-23 16:34] LABS: POC Glucose,Bedside 224 (70-110)
--- NOTE | 2022-02-23 18:35 | PC.NURSE ---
No acute changes this shift. VSS. Pt has been weaned to RA. CB in reach. Full bed change provided, pt denied changing gown at this time, states she had a bath at about [address] in place.
[2022-02-23 22:22] LABS: POC Glucose,Bedside 266 (70-110)
[2022-02-24] VITALS (13 sets, daily range): BP systolic 91–139; BP diastolic 49–110; PULSE 75–120; RESP 18–22; TEMP 36.4–36.7; O2SAT 92–100
[2022-02-24 07:38] LABS: POC Glucose,Bedside 141 (70-110)
--- NOTE | 2022-02-24 08:48 | EXP.PN ---
Subjective *Date: 02/24/22 *Time: 08:48 Interval history: Patient thinks she has greatly improved. Her breathing has improved although it still up and down. She denies chest pain and her joint pain is better. She is eating better. She states she did not get out of bed over the weekend and wishes to do so. Patient on room air with O2 sats at 93%. She has pure wick in place Exam Data for Last 24 hours Vital signs and Labs for Last 24 Hours: Temp Pulse Resp BP Pulse Ox FiO2 97.8 F 116 H 20 139/110 H 93 L 32 02/24/22 04:00 02/24/22 04:00 02/24/22 04:00 02/24/22 04:00 02/24/22 06:55 02/22/22 18:30 Laboratory Results - last 24 hr 02/23/22 07:58: Sodium 131 L, Potassium 5.3 H D, Chloride 109 H, Carbon Dioxide 16 L, Anion Gap 11.3, BUN 26 H, Creatinine 1.00, Estimated Creat Clear 68, Estimated GFR 55 L, Est GFR ( Amer) 66, Glucose 180 H, Calcium 9.3 02/23/22 10:18: WBC 15.2 H, RBC 3.73 L, Hgb 10.8 L, Hct 33.9 L, MCV 90.9, MCH 29.0, MCHC 32.0, RDW 15.1, Plt Count 466 H D, MPV 8.2, Neut % (Auto) 83.9 H, Lymph % (Auto) 8.3 L, [place] % (Auto) 6.7, Eos % (Auto) 0.3, Baso % (Auto) 0.7, Neut # (Auto) 12.8 H, Lymph # (Auto) 1.3, [place] # (Auto) 1.0, Eos # (Auto) 0.1, Baso # (Auto) 0.1, Total Counted 100, Neutrophils % (Manual) 73, Lymphocytes % (Manual) 12, Monocytes % (Manual) 15 H, Platelet Estimate Slight increase, RBC Morphology Normal 02/23/22 12:18: POC Glucose 258 H 02/23/22 15:59: POC Glucose 224 H 02/23/22 20:39: POC Glucose 266 H 02/24/22 05:32: POC Glucose 141 H I & O for Last 24 hours: Intake & Output 02/21/22 02/22/22 02/23/22 02/24/22 11:59 11:59 11:59 11:59 Intake Total 1550 / 1550 300 / 300 1000 / 1000 820 / 820 Output Total 300 / 300 900 / 900 1950 / 1950 850 / 850 Balance 1250 / 1250 -600 / -600 -950 / -950 -30 / -30 Weight 183 lb 12.8 oz 182 lb 15.739 oz 183 lb 6 oz 189 lb 8 oz Microbiology Reports for the Last 24 Hours: Microbiology 02/17/22 10:00 Sputum - Expectorated Sputum Gram Stain - Final 02/17/22 10:00 Sputum - Expectorated Sputum Sputum Culture - Final Normal Respiratory Nelly Constitutional Constitutional: no acute distress Comments: Awake and for exam. Breakfast set up for her. *Routine Respiratory Exam Respiratory: Present decreased breath sounds (Posteriorly) and crackles (Bilateral basilar crackles) Comments: Breath sounds much improved *Routine Cardiovascular Exam Cardiovascular: Present irregular rhythm (Heart rate 100/min) *Routine Abdominal Exam Abdominal: Present soft and normoactive bowel sounds; Absent tenderness or distended *Routine Extremities Exam Extremities: Absent edema *Routine Neurological Exam Neurological: Present alert, oriented X3 and tremors Assessment and Plan *Assessment and plan (1) Pneumonia due to COVID-19 virus: Status: Acute Category: Medical Code(s): U07.1 - COVID-19; J12.82 - Pneumonia due to coronavirus disease 2019 (2) Acute respiratory failure with hypoxia: Status: Acute Category: Medical Code(s): J96.01 - Acute respiratory failure with hypoxia (3) Atrial fibrillation with rapid ventricular response: Status: Acute Category: Medical Code(s): I48.91 - Unspecified atrial fibrillation (4) Debility: Status: Acute Category: Medical Code(s): R53.81 - Other malaise (5) Hypertension: Status: Chronic Qualifiers: Hypertension type: primary hypertension Qualified Code(s): I10 - Essential (primary) hypertension Category: Medical Code(s): I10 - Essential (primary) hypertension (6) COPD (chronic obstructive pulmonary disease): Status: Chronic Category: Medical Code(s): J44.9 - Chronic obstructive pulmonary disease, unspecified (7) Type 2 diabetes mellitus with diabetic neuropathy, without long-term current use of insulin: Status: Acute Category: Medical Cod
--- NOTE | 2022-02-24 10:24 | EXP.PULM.PN ---
Subjective *Date: 02/24/22 *Time: 13:19 Interval history: No acute respiratory vents overnight. Patient continues to remain on room air. Denies any new complaints. Awaiting placement. Pulmonology Exam Inpatient Vital signs and Labs for Last 24 Hours: Temp Pulse Resp BP Pulse Ox FiO2 98.0 F 110 H 18 98/69 L 94 L 32 02/24/22 08:00 02/24/22 08:00 02/24/22 08:00 02/24/22 08:00 02/24/22 08:00 02/22/22 18:30 Laboratory Results - last 24 hr 02/23/22 10:18: WBC 15.2 H, RBC 3.73 L, Hgb 10.8 L, Hct 33.9 L, MCV 90.9, MCH 29.0, MCHC 32.0, RDW 15.1, Plt Count 466 H D, MPV 8.2, Neut % (Auto) 83.9 H, Lymph % (Auto) 8.3 L, [place] % (Auto) 6.7, Eos % (Auto) 0.3, Baso % (Auto) 0.7, Neut # (Auto) 12.8 H, Lymph # (Auto) 1.3, [place] # (Auto) 1.0, Eos # (Auto) 0.1, Baso # (Auto) 0.1, Total Counted 100, Neutrophils % (Manual) 73, Lymphocytes % (Manual) 12, Monocytes % (Manual) 15 H, Platelet Estimate Slight increase, RBC Morphology Normal 02/23/22 12:18: POC Glucose 258 H 02/23/22 15:59: POC Glucose 224 H 02/23/22 20:39: POC Glucose 266 H 02/24/22 05:32: POC Glucose 141 H I & O for Labs for Last 24 Hours: Intake & Output 02/21/22 02/22/22 02/23/22 02/24/22 23:59 23:59 23:59 23:59 Intake Total 790 / 790 940 / 940 1120 / 1120 240 / 240 Output Total 400 / 400 1450 / 2050 1550 / 1850 300 / 300 Balance 390 / 390 -510 / -1110 -430 / -730 -60 / -60 Weight 183 lb 12.8 oz 182 lb 15.739 oz 183 lb 6 oz 189 lb 8 oz Microbiology Reports for the Last 24 Hours: Microbiology 02/17/22 10:00 Sputum - Expectorated Sputum Gram Stain - Final 02/17/22 10:00 Sputum - Expectorated Sputum Sputum Culture - Final Normal Respiratory Nelly Constitutional: Present mild distress Head: Present normocephalic and atraumatic ENT: Present normal exam, normal oropharynx and mucous membranes moist Neck: Present normal inspection and full ROM Respiratory: Present able to speak in complete sentences; Absent respiratory distress or wheezes Cardiac: Present S1/S2, Tachycardia and radial pulses present; Absent Regular Rhythm GI: Present soft and distention; Absent tenderness or guarding Rectal (female): Present deferred (female): Present deferred Skin: Present intact; Absent cyanosis or jaundice Neuro: Present alert, awake and oriented x 3 Extremities: Present normal inspection; Absent clubbing or cyanosis Psychiatric: Present normal affect and cooperative Assessment and Plan *Assessment and plan (1) Pneumonia due to COVID-19 virus: Status: Acute Category: Medical Code(s): U07.1 - COVID-19; J12.82 - Pneumonia due to coronavirus disease 2019 (2) Pneumonia: Status: Acute Category: Medical Code(s): J18.9 - Pneumonia, unspecified organism (3) Acute respiratory failure with hypoxia: Status: Acute Category: Medical Code(s): J96.01 - Acute respiratory failure with hypoxia Plan Ms. Myers is a 71-year-old female following in pulmonary clinic for exertional dyspnea, asthma COPD overlap syndrome, tobacco abuse, lung nodules, adenopathy? and lung cancer screening last seen in the clinic in September with stable nodules with other comorbidities including hypertension, diabetes mellitus, CAD status post stenting, CHF presented to the hospital worsening respiratory distress and pulmonary was called for further evaluation. COVID-19 PCR resulted positive. Chest x-ray on admission personally viewed, right lower lobe consolidation/atelectasis. Significant leukosis on admission 20.5 neutrophilic predominant. Hemodynamically stable. Tachycardic. Patient upon admission was initiated on vancomycin and levofloxacin 500 mg every 24 hours along with DuoNebs every 6 scheduled. Needing oxygen comes at 2 L, new from baseline but not needing any oxygen. ABG , did not show any evidence of hypercarbic respiratory failure. Continue to hypoxic respiratory failure with a PO2 68.4 on 2 L nasal cannula CRP signifi
--- NOTE | 2022-02-24 11:02 | DIET.NUTRFU ---
started weighted silverware per patients request. She uses them at home for her tremors. Reviewed isolation precautions with infection control and nurse network operations manager to have process in place. Patient is waiting for placement, will be in precautions for 2 more days.
--- NOTE | 2022-02-24 11:11 | EXP.CARD.PN ---
Subjective Subjective Date: 02/24/22 Time: 09:30 Principal diagnosis: COVID pnemonia, afib with RVR Interval history: This is a 71-year-old white female who presented to the emergency department with shortness of breath and found to have COVID-pneumonia. The patient went into atrial fibrillation with RVR while hospitalized. She remains on a beta-mark and diltiazem at this time. She remains tachycardic this morning in atrial fibrillation with a rate around 115. She states her shortness of breath has significantly improved and she is feeling much better. She denies any chest pain or pressure. She denies any racing of the heart. She denies any fever, chills, nausea, vomiting, diarrhea, PND orthopnea. The patient needs better rate control. Exam Data for Last 24 hours Vital signs and Labs for Last 24 Hours: Temp Pulse Resp BP Pulse Ox FiO2 98.0 F 110 H 18 98/69 L 94 L 32 02/24/22 08:00 02/24/22 08:00 02/24/22 08:00 02/24/22 08:00 02/24/22 08:00 02/22/22 18:30 Laboratory Results - last 24 hr 02/23/22 10:18: Total Counted 100, Neutrophils % (Manual) 73, Lymphocytes % (Manual) 12, Monocytes % (Manual) 15 H, Platelet Estimate Slight increase, RBC Morphology Normal 02/23/22 12:18: POC Glucose 258 H 02/23/22 15:59: POC Glucose 224 H 02/23/22 20:39: POC Glucose 266 H 02/24/22 05:32: POC Glucose 141 H I & O for Last 24 hours: Intake & Output 02/21/22 02/22/22 02/23/22 02/24/22 23:59 23:59 23:59 23:59 Intake Total 790 / 790 940 / 940 1120 / 1120 240 / 240 Output Total 400 / 400 1450 / 2050 1550 / 1850 300 / 300 Balance 390 / 390 -510 / -1110 -430 / -730 -60 / -60 Weight 183 lb 12.8 oz 182 lb 15.739 oz 183 lb 6 oz 189 lb 8 oz Microbiology Reports for the Last 24 Hours: Microbiology 02/17/22 10:00 Sputum - Expectorated Sputum Gram Stain - Final 02/17/22 10:00 Sputum - Expectorated Sputum Sputum Culture - Final Normal Respiratory Nelly Narrative: Telemetry strip is atrial fibrillation with a rate of 115. Constitutional Constitutional: no acute distress and average body habitus *Routine HEENT Exam Head: Present normocephalic and atraumatic ENT: Present mucous membranes moist *Routine Neck Exam Neck: Present supple, full ROM and normal carotid upstroke; Absent JVD, carotid bruit or lymphadenopathy *Routine Respiratory Exam Respiratory: Present decreased breath sounds and CTA bilaterally *Routine Cardiovascular Exam Cardiovascular: Present tachycardia and irregularly irregular *Routine Abdominal Exam Abdominal: Present soft and normoactive bowel sounds; Absent tenderness, distended or organomegaly *Routine Extremities Exam Extremities: Present edema and full ROM; Absent cyanosis or clubbing *Routine Skin Exam Skin: Present intact and warm; Absent erythema *Routine Neurological Exam Neurological: Present alert, oriented X3 and CN II-XII intact Routine Psychiatric Exam Psychiatric: Present normal affect Progress Note: A&P Assessment and plan (1) Pneumonia due to COVID-19 virus: Status: Acute (2) Acute respiratory failure with hypoxia: Status: Acute (3) Atrial fibrillation with rapid ventricular response: Status: Acute (4) Coronary artery disease: Status: Chronic (5) COPD (chronic obstructive pulmonary disease): Status: Chronic (6) Type 2 diabetes mellitus with diabetic neuropathy, without long-term current use of insulin: Status: Acute (7) Hypertension: Status: Chronic (8) Hyperlipidemia: Status: Chronic Assessment and Plan Assessment and Plan for All Diagnoses:: Plan: 1. The patient was mated to the hospital with COVID-19 pneumonia. Will defer management of this to her primary care team. 2. The patient went into atrial fibrillation with RVR throughout her hospitalization. The patient has remained on bisoprolol 10 mg twice daily and diltiazem 180 mg twice daily. The patient remains in atrial fibrillation this mo
--- NOTE | 2022-02-24 11:14 | HMH.PTEV ---
Physical Therapy Evaluation Rehab PT IP Evaluation Start: 02/19/22 08:24 Freq: ONCE Status: Active Protocol: Document 02/24/22 09:40 LYNDA (Rec: 02/24/22 11:12 LYNDA [id number]) Subjective/History History History Pt is a 71-year-old patient brought to [facility] emergency room by family due to shortness of breath and altered mental status on 02/17/22. Pt was diagnosed with COVID-19 and sepsis. Medical History: hypertension , hyperlipidemia, type 2 diabetes mellitus, status post angioplasty with stent, COPD, bilateral lower extremity edema, kidney disease, congestive heart failure, asthma, deep vein thrombosis, arthritis, and history of rheumatic fever Subjective Subjective Pt reports she lives at home alone and was independent with ADLs prior to hospitalization . Pt states she used a standard walker for ambulation at baseline. Pt reports she is still having shortness of breath upon exertion and her legs feel weak from laying in the bed a lot over the past few days. Rehab PT IP Eval Objective Appearance Patient Behavior Appropriate,Cooperative Patient Orientation Person,Place,Time,Name Difficulty following instructions none Speech Pattern Clear,Appropriate,Coherent Ambulation Patient Able to Ambulate Yes Ambulation Observation IP General Gait Pattern Observation Wide Based Gait,Shuffling Step Ambulation Distance (feet) 5 Ambulation Assistive Device Rolling Walker Ambulation Ability Contact Guard/Hand Hold, Minimal x 1 (25% assist) Balance Ability to Arise Able, uses arms to help Sitting Balance Leans or slides in chair Standing Balance Steady, wide stance Dynamic Sitting Balance Ability Good Dynamic Standing Balance Ability Fair Transfers Sit to Stand Bed Transfer Ability Contact Guard/Hand Hold Sit to Stand Chair Transfer Ability Contact Guard/Hand Hold ROM All Extremities PT ROM Status WFL
[2022-02-24 11:52] LABS: POC Glucose,Bedside 244 (70-110)
--- NOTE | 2022-02-24 12:56 | HMH.OTEV ---
OT Inpatient Evaluation Rehab OT IP Evaluation Start: 02/24/22 09:19 Freq: ONCE Status: Complete Protocol: Document 02/24/22 12:47 ADAN (Rec: 02/24/22 12:55 ADAN [id number]) Rehab OT IP Assessment Subjective History Ms. Meza is a 71-year-old patient with multiple multiple medical issues to include hypertension, hyperlipidemia, type 2 diabetes mellitus, type 2 diabetes mellitus, status post angioplasty with stent, COPD, bilateral lower extremity edema, kidney disease, Congestive heart failure, asthma, deep vein thrombosis, arthritis, and history of rheumatic fever who was brought to [facility] emergency room by family due to shortness of breath and altered mental status. This a.m. she states her breathing is somewhat difficult. She denies chest pain although she admits to some chest pain in the right lower anterior chest wall yesterday. Pain has resolved as of today. She does not recall much of yesterday but said all her symptoms started yesterday. She does admit to productive cough at times. She denies any nausea or vomiting but states she has had diarrhea. She cannot recall the frequency or when it started.Currently temperature is 99 and O2 sats are 99% on O2 at 2 L/min. With assessment in the emergency room temperature was found to be 97.7. O2 sats were 95% on nasal O2 at 2 L/ min. Also to note white blood cell count was 20,500. Hemoglobin was 13.4. BUN was 35 and creatinine was 1.8. GFR 28. Troponin I was 0.02.
--- NOTE | 2022-02-24 13:19 | XR_ITS ---
FINAL REPORT TECHNIQUE: Single view chest CLINICAL HISTORY: Confirm PICC line placement COMPARISON: 02/19/2022 FINDINGS: A single view of the chest was obtained. There is a new left PICC with the tip in the left neck, likely within the jugular vein. Recommend repositioning. The heart and mediastinum are within normal limits. There are right base opacities worrisome for pneumonia. There is no pneumothorax. Osseous structures are unremarkable. IMPRESSION: Left PICC with the tip in the left neck. Recommend repositioning. Right base opacities worrisome for pneumonia. Reviewed, Interpreted and Dictated by Shoaib Booth III, MD Transcribed by Zaina Felix Authenticated and [facility]
--- NOTE | 2022-02-24 13:50 | PC.NURSE ---
spoke with melissa stevens about patient iv access. patient currently only has a 22gauge IV in the breast. Patient is ordered amiodarone at this time. she stated it would be okay to try and get a midline or picc line on the patient. notified picc line nurse. she is at bedside now to see if she can do a midline or picc.
[2022-02-24 13:59] LABS: Alanine Aminotransferase 23 U/L (12-78); Albumin Level 2.6 g/dl (3.5-5.0); Alkaline Phosphatase 105 U/L (38-126); Aspartate Amino Transferase 31 U/L (14-36); Bilirubin,Direct 0.2 mg/dl (0.0-0.4); Bilirubin,Total 0.2 mg/dl (0.2-1.3)
--- NOTE | 2022-02-24 14:06 | PC.NURSE ---
verified with lab technician that patient was okay to continue her eliquis
[2022-02-24 14:16] LABS: Free T4 (Free Thyroxine) 1.44 ng/dl (0.78-2.19)
[2022-02-24 14:31] LABS: Thyroid Stimulating Hormone 2.98 uIU/mL (0.465-4.68)
--- NOTE | 2022-02-24 14:39 | CARE MANAGER ---
Addendum entered by Tatiana Patel RN 02/25/22 13:45: [facility] is out of network per [facility] this morning. Patient's information has been faxed to [facility] and [facility]. [facility] as well as [facility] do not have a bed. Awaiting determination from Fransico @ [facility], if she is unable to take patient, HH is her only option. Addendum entered by Tatiana Patel RN 02/24/22 15:47: [facility] has started the auth. Original Note: Spoke with patient this morning regarding discharge planning. Patient is agreeable for discharge to SNF, and she agreed for her information to be sent to [facility]. Referral faxed. I have spoken with Aicha OMALLEY, who has started the auth. CM will continue to follow.
--- NOTE | 2022-02-24 14:58 | XR_ITS ---
FINAL REPORT TECHNIQUE: Single view chest CLINICAL HISTORY: PICC line placement FINDINGS: A single view of the chest was obtained. There has been interval reposition of the left PICC with the tip now in the lower SVC. The heart and mediastinum are within normal limits. There are right base opacities worrisome for pneumonia. There is no pneumothorax. Osseous structures are unremarkable. IMPRESSION: Left PICC with the tip in the lower SVC. Right base opacities worrisome for pneumonia. Reviewed, Interpreted and Dictated by Shoaib Booth III, MD Transcribed by Zaina Felix Authenticated and [facility]
--- NOTE | 2022-02-24 16:56 | PC.NURSE ---
per abraham Brooke to use PICC line
[2022-02-24 17:08] LABS: POC Glucose,Bedside 237 (70-110)
--- NOTE | 2022-02-24 17:48 | PC.NURSE ---
pt has remained on room air t/o shift, no complaints of pain or SOA, PICC line placed this shift, amio gtt started at 1707, generalized edema noted, HR 95-120 this shift
[2022-02-24 21:23] LABS: POC Glucose,Bedside 222 (70-110)
--- NOTE | 2022-02-24 22:20 | PC.NURSE ---
spoke with lab, vanc trough was drawn, but has not resulted
--- NOTE | 2022-02-24 23:07 | PC.NURSE ---
Amiodarone gtt titrated to 16.7 ml/hr @ 2307
--- NOTE | 2022-02-24 23:26 | PC.NURSE ---
vanc trough not resulted yet
--- NOTE | 2022-02-24 23:26 | PC.NURSE ---
Addendum entered by Shakira Bolden RN 02/24/22 23:30: Below @2100 Original Note: spoke with Dr. Haney regarding pts last potassium level of 5.3 and blood pressure of 91/49. Potassium, Bisoprolol, and Cardizem held at this time
[2022-02-24 23:37] LABS: Vancomycin,Trough 11.9 ug/mL (5.0-10.0)
--- NOTE | 2022-02-24 23:55 | PC.NURSE ---
vanc trough resulted- 11.9. spoke with [facility]. states okay to give vanc.
[2022-02-25] VITALS (10 sets, daily range): BP systolic 114–144; BP diastolic 49–73; PULSE 67–82; RESP 16–19; TEMP 36.5–37.1; O2SAT 96–100; BMI 38.0
--- NOTE | 2022-02-25 00:30 | ECG_ITS ---
APPROVED REPORT Exam: Resting ECG HR:66 bpm ECG Measurements Heart Rate 66 AXES MI 160 P 50 QRSd 104 QRS 33 QT 434 T 87 QTc 448 Conclusion SINUS RHYTHM BORDERLINE ECG UNCONFIRMED REPORT Electronically signed by : Barry García MD 02/25/2022 20:57:05
--- NOTE | 2022-02-25 00:39 | PC.NURSE ---
pt noted to convert to NSR on tele. EKG obtained at this time
[2022-02-25 06:20] LABS: Basophils # 0.1 K/mm3 (0-0.2); Basophils % 0.9 % (0.1-2.0); Eosinophils # 0.1 K/mm3 (0.0-0.4); Eosinophils % 0.8 % (0.1-12.0); Hematocrit 32.5 % (37.0-47.0); Hemoglobin 10.8 g/dL (12.2-16.2); Lymphocytes # 3.6 K/mm3 (0.7-4.5); Lymphocytes % 26.4 % (10-50); Mean Corpuscular HGB Conc 33.3 g/dL (31.8-35.4); Mean Corpuscular Hemoglobin 29.9 pg (27.0-31.2); Mean Corpuscular Volume 89.9 fl (81-99); Mean Platelet Volume 8.7 fl (7.4-10.4); Monocytes # 1.1 K/mm3 (0.1-1.0); Monocytes % 8.3 % (1.7-9.3); Neutrophils # 8.8 K/mm3 (1.8-7.8); Neutrophils % 64.5 % (37.0-80.0); Platelet Count 461 K/mm3 (142-424); Red Blood Count 3.62 M/mm3 (4.20-5.40); Red Cell Distribution Width 15.5 % (11.5-17.5); White Blood Count 13.7 K/mm3 (4.8-10.8)
[2022-02-25 06:24] LABS: POC Glucose,Bedside 175 (70-110)
[2022-02-25 06:45] LABS: Chloride 111 mmol/L (98-107); Potassium 5.2 mmoL/L (3.5-5.1); Sodium 133 mmol/L (136-145)
[2022-02-25 06:48] LABS: Anion Gap 9.2 mEq/L (5-15); Blood Urea Nitrogen 27 mg/dl (7-17); Carbon Dioxide 18 mmol/L (22.0-30.0); Chol/HDL Ratio 3.7 (1-3.5); Cholesterol 63 mg/dl (140-200); Creatinine Clearance Estimated 58 mL/min (50-200); Estimated Glomerular Filt Rate 44 ml/min (>60); GFR (African American) 54 ML/MIN (>60); Glucose 159 mg/dl (74-100); HDL Cholesterol 17 mg/dl (40-60); Triglycerides 73 mg/dl (30-150); VLDL Cholesterol 15 mg/dL (0-40)
[2022-02-25 07:06] LABS: Direct LDL Cholesterol < 30.00 mg/dL (100-129)
--- NOTE | 2022-02-25 08:42 | EXP.PN ---
Subjective *Date: 02/25/22 *Time: 08:47 Interval history: Yesterday patient atrial fibs about rapid ventricular rate. She was given a bolus of amiodarone and started on a drip she did convert to sinus rhythm. See cardiology note. Patient this morning states she feels about the same. She denies chest pain and shortness of breath. She did sleep last night. She is hungry and awaiting breakfast. She did not get out of bed yesterday due to all the activity. She also had a PICC line placed. Exam Data for Last 24 hours Vital signs and Labs for Last 24 Hours: Temp Pulse Resp BP Pulse Ox FiO2 98.6 F 74 17 144/67 H 100 32 02/25/22 04:00 02/25/22 08:00 02/25/22 08:00 02/25/22 08:00 02/25/22 08:00 02/22/22 18:30 Laboratory Results - last 24 hr 02/24/22 11:43: POC Glucose 244 H 02/24/22 13:28: Free T4 1.44 02/24/22 13:28: TSH 2.98 02/24/22 13:28: Total Bilirubin 0.2, Direct Bilirubin 0.2, Conjugated Bilirubin 0.0, Indirect Bilirubin 0.0, Unconjugated Bilirubin 0.0, AST 31, ALT 23, Alkaline Phosphatase 105, Total Protein 6.0 L, Albumin 2.6 L 02/24/22 16:35: POC Glucose 237 H 02/24/22 20:46: POC Glucose 222 H 02/24/22 22:00: Vancomycin Trough 11.9 H 02/25/22 05:38: WBC 13.7 H, RBC 3.62 L, Hgb 10.8 L, Hct 32.5 L, MCV 89.9, MCH 29.9, MCHC 33.3, RDW 15.5, Plt Count 461 H, MPV 8.7, Neut % (Auto) 64.5, Lymph % (Auto) 26.4, [place] % (Auto) 8.3, Eos % (Auto) 0.8, Baso % (Auto) 0.9, Neut # (Auto) 8.8 H, Lymph # (Auto) 3.6, [place] # (Auto) 1.1 H, Eos # (Auto) 0.1, Baso # (Auto) 0.1 02/25/22 05:38: Sodium 133 L, Potassium 5.2 H, Chloride 111 H, Carbon Dioxide 18 L, Anion Gap 9.2, BUN 27 H, Creatinine 1.20 H, Estimated Creat Clear 58, Estimated GFR 44 L, Est GFR ( Amer) 54 L, Glucose 159 H, Calcium 9.0, Triglycerides 73, Cholesterol 63 L, LDL Cholesterol Direct < 30.00 L, VLDL Cholesterol 15, HDL Cholesterol 17 L, Cholesterol/HDL Ratio 3.7 H 02/25/22 06:15: POC Glucose 175 H I & O for Last 24 hours: Intake & Output 02/22/22 02/23/22 02/24/22 02/25/22 11:59 11:59 11:59 11:59 Intake Total 300 / 300 1000 / 1000 1060 / 1060 360 / 360 Output Total 900 / 900 1950 / 1950 850 / 850 0 / 0 Balance -600 / -600 -950 / -950 210 / 210 360 / 360 Weight 182 lb 15.739 oz 183 lb 6 oz 189 lb 8 oz 189 lb Microbiology Reports for the Last 24 Hours: Microbiology 02/17/22 10:00 Sputum - Expectorated Sputum Gram Stain - Final 02/17/22 10:00 Sputum - Expectorated Sputum Sputum Culture - Final Normal Respiratory Nelly Constitutional Constitutional: no acute distress Comments: Awakened from sound sleep for exam. *Routine Respiratory Exam Respiratory: Present wheezes and crackles Comments: Noisy chest did not improve somewhat with cough after awakening. *Routine Cardiovascular Exam Cardiovascular: Present RRR (Sinus rhythm on monitor) *Routine Abdominal Exam Abdominal: Present soft and normoactive bowel sounds; Absent tenderness or distended *Routine Extremities Exam Extremities: Absent edema or calf tenderness *Routine Neurological Exam Neurological: Present alert and oriented X3 Assessment and Plan *Assessment and plan (1) Pneumonia due to COVID-19 virus: Status: Acute Category: Medical Code(s): U07.1 - COVID-19; J12.82 - Pneumonia due to coronavirus disease 2019 (2) Pneumonia: Status: Acute Category: Medical Code(s): J18.9 - Pneumonia, unspecified organism (3) Acute respiratory failure with hypoxia: Status: Acute Category: Medical Code(s): J96.01 - Acute respiratory failure with hypoxia (4) Tremors of nervous system: Status: Acute Category: Medical Code(s): R25.1 - Tremor, unspecified (5) Atrial fibrillation with rapid ventricular response: Status: Acute Category: Medical Code(s): I48.91 - Unspecified atrial fibrillation (6) Debility: Status: Acute Category: Medical Code(s
[2022-02-25 10:43] LABS: Influenza A, PCR Not Detected (NotDetected); Influenza B, PCR Not Detected (NotDetected)
[2022-02-25 11:06] LABS: Coronavirus 19, PCR Detected (NotDetected)
--- NOTE | 2022-02-25 11:24 | EXP.CARD.PN ---
Subjective Subjective Date: 02/25/22 Time: 09:30 Principal diagnosis: COVID pnemonia, afib with RVR Interval history: This is a 61-year-old white female who presented to the emergency department complaints of shortness of breath and found to have COVID-19 pneumonia. The patient went into atrial fibrillation with RVR. She remained in atrial fibrillation yesterday with a heart rate around 115-120, on high-dose bisoprolol and diltiazem. The patient was started on an amiodarone drip after receiving an amiodarone bolus. She did convert to sinus rhythm and remains in sinus rhythm this morning. She denies any chest pain or pressure. She denies any racing of the heart. She states that she is still little short of breath with exertion but this is much better than it was. She states that she feels pretty good this morning. She denies any fever, chills, nausea, vomiting, diarrhea, PND or orthopnea. Exam Data for Last 24 hours Vital signs and Labs for Last 24 Hours: Temp Pulse Resp BP Pulse Ox FiO2 98 F 74 17 144/67 H 100 32 02/25/22 09:00 02/25/22 08:00 02/25/22 08:00 02/25/22 08:00 02/25/22 08:00 02/22/22 18:30 Laboratory Results - last 24 hr 02/24/22 11:43: POC Glucose 244 H 02/24/22 13:28: Free T4 1.44 02/24/22 13:28: TSH 2.98 02/24/22 13:28: Total Bilirubin 0.2, Direct Bilirubin 0.2, Conjugated Bilirubin 0.0, Indirect Bilirubin 0.0, Unconjugated Bilirubin 0.0, AST 31, ALT 23, Alkaline Phosphatase 105, Total Protein 6.0 L, Albumin 2.6 L 02/24/22 16:35: POC Glucose 237 H 02/24/22 20:46: POC Glucose 222 H 02/24/22 22:00: Vancomycin Trough 11.9 H 02/25/22 05:38: WBC 13.7 H, RBC 3.62 L, Hgb 10.8 L, Hct 32.5 L, MCV 89.9, MCH 29.9, MCHC 33.3, RDW 15.5, Plt Count 461 H, MPV 8.7, Neut % (Auto) 64.5, Lymph % (Auto) 26.4, [place] % (Auto) 8.3, Eos % (Auto) 0.8, Baso % (Auto) 0.9, Neut # (Auto) 8.8 H, Lymph # (Auto) 3.6, [place] # (Auto) 1.1 H, Eos # (Auto) 0.1, Baso # (Auto) 0.1 02/25/22 05:38: Sodium 133 L, Potassium 5.2 H, Chloride 111 H, Carbon Dioxide 18 L, Anion Gap 9.2, BUN 27 H, Creatinine 1.20 H, Estimated Creat Clear 58, Estimated GFR 44 L, Est GFR ( Amer) 54 L, Glucose 159 H, Calcium 9.0, Triglycerides 73, Cholesterol 63 L, LDL Cholesterol Direct < 30.00 L, VLDL Cholesterol 15, HDL Cholesterol 17 L, Cholesterol/HDL Ratio 3.7 H 02/25/22 05:38: SARS-CoV-2 (PCR) Detected A, Influenza A Untype (PCR) Not detected, Influenza Type B (PCR) Not detected 02/25/22 06:15: POC Glucose 175 H I & O for Last 24 hours: Intake & Output 02/22/22 02/23/22 02/24/22 02/25/22 23:59 23:59 23:59 23:59 Intake Total 940 / 940 1120 / 1120 600 / 600 Output Total 1450 / 2050 1550 / 1850 300 / 300 150 / 150 Balance -510 / -1110 -430 / -730 300 / 300 -150 / -150 Weight 182 lb 15.739 oz 183 lb 6 oz 189 lb 8 oz 189 lb Microbiology Reports for the Last 24 Hours: Microbiology 02/17/22 10:00 Sputum - Expectorated Sputum Gram Stain - Final 02/17/22 10:00 Sputum - Expectorated Sputum Sputum Culture - Final Normal Respiratory Nelly Narrative: Telemetry strip is sinus rhythm with a rate of 75 bpm. Constitutional Constitutional: no acute distress and obese *Routine HEENT Exam Head: Present normocephalic and atraumatic ENT: Present mucous membranes moist *Routine Neck Exam Neck: Present supple, full ROM and normal carotid upstroke; Absent JVD, carotid bruit or lymphadenopathy *Routine Respiratory Exam Respiratory: Present decreased breath sounds and CTA bilaterally *Routine Cardiovascular Exam Cardiovascular: Present RRR, Normal S1 and Normal S2; Absent murmur *Routine Abdominal Exam Abdominal: Present soft and normoactive bowel sounds; Absent tenderness, distended or organomegaly *Routine Extremities Exam Extremities: Present edema and full ROM; Absent cyanosis or clubbing *Routine Skin Exam Skin: Present intact and warm; Absent erythema *Routine Neurological Exam Neurological: Present alert, oriented X3 and CN I
[2022-02-25 11:45] LABS: POC Glucose,Bedside 144 (70-110)
--- NOTE | 2022-02-25 13:26 | EXP.PHA.CONS ---
Pharmacy Consult Date: 02/25/22 Time: 13:26 Referring provider: Dr Moore Reason for Consult:: PK LEVEL OBTAINED Allergies Allergy/AdvReac Type Severity Reaction Status Date / Time alendronate sodium Allergy Intermediate Dizziness Verified 02/17/22 03:42 [From Fosamax] atorvastatin [From Lipitor] Allergy Intermediate Weakness Verified 02/17/22 03:42 isosorbide Allergy Verified 02/17/22 03:42 tuberculin,PPD,multi-puncture AdvReac Mild POSITIVE Verified 02/17/22 03:42 REACTOR Home Medications Medication Instructions Recorded Confirmed Type clopidogrel 75 mg tablet 75 mg PO DAILY Antiplatelet 90 05/13/18 02/17/22 History days #90 tabs fluticasone propionate 50 1 spray intranasal DAILY Allergy 05/13/18 02/17/22 History mcg/actuation nasal symptoms 30 days #16 grams spray,suspension hydroxyzine HCl 25 mg tablet 25 mg PO BID Anxiety 90 days #180 05/13/18 02/17/22 History tabs montelukast 10 mg tablet 10 mg PO DAILY Asthma 11/09/19 02/17/22 History (Singulair) potassium chloride 10 mEq 10 meq PO DAILY Potassium 11/09/19 02/17/22 History capsule,extended release replacement 90 days #90 caps tramadol 37.5 mg-acetaminophen 325 1 tab PO BIDP PRN PAIN 30 days #30 11/09/19 02/17/22 History mg tablet tabs aspirin 81 mg tablet,delayed 81 mg PO DAILY heart health 01/24/20 02/17/22 History release calcitonin (salmon) 200 1 dose intranasal DAILY 01/24/20 02/17/22 History unit/actuation nasal spray Osteoporosis cholecalciferol (vitamin D3) 25 2,000 unit PO DAILY Diet supplement 01/24/20 02/17/22 History mcg (1,000 unit) capsule glucosamine [id number] 1 each PO BID joint health 01/24/20 02/17/22 History des 1,500 mg-400 unit-100 mg tablet pyridoxine (vitamin B6) 100 mg/2.5 100 mg PO DAILY Diet supplement 01/24/20 02/17/22 History mL oral liquid vitamin E 268 mg (400 unit) capsule 400 unit PO DAILY Diet supplement 01/24/20 02/17/22 History diltiazem HCl 180 mg 180 mg PO DAILY Heart disease 08/28/20 02/17/22 History capsule,extended release 24 hr ipratropium 0.5 mg-albuterol 3 mg 3 ml inhalation Q6HP PRN shortness 07/09/21 02/17/22 History (2.5 mg base)/3 mL nebulization of breath or wheezing soln bupropion HCl (smoking deter) 150 150 mg PO BID Depression 07/11/21 02/17/22 History mg tablet,12 hr sustained-release(smoking deterrent) nitroglycerin 0.4 mg sublingual 0.4 mg sublingual DIRECTED 07/11/21 02/17/22 History tablet Chest pain albuterol sulfate 90 mcg/actuation 2 puff inhalation QID PRN 08/06/21 02/17/22 Rx aerosol inhaler (ProAir HFA) shortness of breath or wheezing 90 days #8.5 grams furosemide 20 mg tablet 20 mg PO DAILY Fluid 09/10/21 02/17/22 History empagliflozin 10 mg tablet 10 mg PO DAILY Diabetes 02/16/22 02/17/22 History (Jardiance) metformin 500 mg tablet 500 mg PO BID Diabetes 02/16/22 02/17/22 History rosuvastatin 40 mg tablet 40 mg PO DAILY High cholesterol 02/16/22 02/17/22 History bisoprolol fumarate 10 mg tablet 10 mg PO BID Hypertension 02/17/22 02/17/22 History gabapentin 100 mg capsule 100 mg PO BID Pain 02/17/22 02/17/22 History magnesium oxide 400 mg (241.3 mg 400 mg PO DAILY Supplement 02/17/22 02/17/22 History magnesium) tablet mometasone-formoterol HFA 200 2 inh inhalation BID COPD 02/17/22 02/17/22 History mcg-5 mcg/actuation aerosol inhaler (Dulera) sitagliptin phosphate 100 mg 100 mg PO DAILY Diabetes 02/17/22 02/17/22 History tablet (Januvia) tiotropium bromide 1.25 2 puff inhalation DAILY Breathing 02/17/22 02/17/22 History mcg/actuation mist for inhalation problems (Spiriva Respimat) New Prescriptions to Start Prescriptions: Height: 1.5 m Weight: 85.729 kg Laboratory Results:: Laboratory Results - last 24 hr 02/24/22 13:28: Free T4 1.44 02/24/22 13:28: TSH 2.98 02/24/22 13:28: Total Bilirubin 0.2, Direct Bilirubin 0.2, Conjugated Bilirubin 0.0, Indirect Bilirubin 0.0, Unconj
[2022-02-25 17:08] LABS: POC Glucose,Bedside 260 (70-110)
--- NOTE | 2022-02-25 18:21 | PC.NURSE ---
pt has been up to chair most of shift, amio gtt stopped at 1120, telemetry has shown NSR, HR 70-76, remains on room air with O2 sats at 100%, no complaints of SOA or pain
[2022-02-25 23:00] LABS: POC Glucose,Bedside 136 (70-110)
[2022-02-26] VITALS: BP 128/60; PULSE 80; PULSE 82; RESP 22; TEMP 36.4; O2SAT 100
[2022-02-26 04:00] VITALS: BP 107/52; PULSE 68; PULSE 70; RESP 20; TEMP 36.4; O2SAT 100
[2022-02-26 04:32] VITALS: BMI 36.3
--- NOTE | 2022-02-26 05:35 | PC.NURSE ---
Addendum entered by Lucia Hill RN 02/26/22 05:45: telemetry reveals NSR with prolonged QT Original Note: pt rested well through the night, no changes from previous assessment, pt on 02 at 2L after noting sats 88-89% on room air after returning from shower, pt is alert and oriented x4, 2-3+ edema noted generalized, VSS. telemetry remains NSR, pt incontinent of urine due to stress and urge, PICC line in place to LUE, some mild redness noted to buttocks area. pt requires assistance with ambulation x1, no acute distress, no other issues or concerns at this time.
[2022-02-26 06:53] LABS: POC Glucose,Bedside 149 (70-110)
[2022-02-26 08:00] VITALS: BP 110/58; PULSE 71; PULSE 75; RESP 16; TEMP 36.9; O2SAT 100
--- NOTE | 2022-02-26 08:21 | EXP.ACUTE.PN ---
Subjective *Date: 02/26/22 *Time: 08:21 Interval history: Patient is feeling better today. Going to get up in the chair. Took a shower last night but did get SOA. Denies any pain. Slept and is eating well. Medical Exam Vital signs and Labs for Last 24 Hours: Vital Signs Temp Pulse Pulse Resp BP BP Pulse Ox 02/26/22 04:00 70 02/26/22 04:00 97.5 F L 68 20 107/52 L 100 02/26/22 00:00 80 02/25/22 20:00 80 02/25/22 20:00 82 100 02/26/22 00:00 97.6 F 82 22 128/60 100 02/25/22 22:57 78 02/25/22 22:57 78 02/25/22 22:45 80 115/58 L 02/25/22 20:00 97.9 F 80 19 114/63 100 02/25/22 16:00 98.0 F 77 16 141/73 H 96 02/25/22 16:00 75 02/25/22 12:00 76 02/25/22 12:00 97.7 F 76 18 132/67 100 02/25/22 09:00 98 F Intake and Output 02/25/22 02/26/22 02/26/22 19:59 03:59 11:59 Intake Total 240 / 490 250 / 490 Output Total 0 / 0 Balance 240 / 490 0 / 490 250 / 490 Intake: Intake, Oral Amount 240 / 240 Intake, Total IV Amount 250 / 250 Vancomycin/Water For Inj (Peg) 250 / 250 1.25 gm In 250 ml @ 125 mls/hr IV Q24H [facility] Rx#:[id number] Output: Output, Urine Amount 0 / 0 Other: Number of Unmeasured Voids 1 Weight 189 lb 180 lb Patient Weight 02/26/22 11:59 Weight 180 lb Laboratory Results - last 24 hr 02/25/22 05:38: SARS-CoV-2 (PCR) Detected A, Influenza A Untype (PCR) Not detected, Influenza Type B (PCR) Not detected 02/25/22 11:34: POC Glucose 144 H 02/25/22 16:47: POC Glucose 260 H 02/25/22 22:40: POC Glucose 136 H 02/26/22 06:46: POC Glucose 149 H I & O for Labs for Last 24 Hours: Intake & Output 02/23/22 02/24/22 02/25/22 02/26/22 11:59 11:59 11:59 11:59 Intake Total 1000 / 1000 1060 / 1060 360 / 360 490 / 490 Output Total 1950 / 1950 850 / 850 150 / 150 0 / 0 Balance -950 / -950 210 / 210 210 / 210 490 / 490 Weight 183 lb 6 oz 189 lb 8 oz 189 lb 180 lb Constitutional: Present no acute distress Respiratory: Present decreased breath sounds Cardiac: Present Reg Rate and Rhythm GI: Present soft; Absent distention or tenderness Extremities: Present edema (trace bilateral LE's) Neuro: Present alert and awake Assessment and Plan *Assessment and plan (1) Pneumonia due to COVID-19 virus: Status: Acute Category: Medical Code(s): U07.1 - COVID-19; J12.82 - Pneumonia due to coronavirus disease 2019 (2) Acute respiratory failure with hypoxia: Status: Acute Category: Medical Code(s): J96.01 - Acute respiratory failure with hypoxia (3) Tremors of nervous system: Status: Acute Category: Medical Code(s): R25.1 - Tremor, unspecified (4) Atrial fibrillation with rapid ventricular response: Status: Acute Category: Medical Code(s): I48.91 - Unspecified atrial fibrillation (5) Debility: Status: Acute Category: Medical Code(s): R53.81 - Other malaise (6) Coronary artery disease: Status: Chronic Qualifiers: Coronary Disease-Associated Artery/Lesion type: [place] artery [place] vs. transplanted heart: [place] heart Associated angina: with other forms of angina Qualified Code(s): I25.118 - Atherosclerotic heart disease of [place] coronary artery with other forms of angina pectoris Category: Medical Code(s): I25.10 - Atherosclerotic heart disease of [place] coronary artery without angina pectoris (7) COPD (chronic obstructive pulmonary disease): Status: Chronic Category: Medical Code(s): J44.9 - Chronic obstructive pulmonary disease, unspecified (8) Type 2 diabetes mellitus with diabetic neuropathy, without long-term current use of insulin: Status: Acute Category: Medical Code(s): E11.40 - Type 2 diabetes mellitus with diabetic neuropathy, unspecified (9) Bilateral lower extremity edema:
[2022-02-26 11:38] LABS: POC Glucose,Bedside 216 (70-110)
[2022-02-26 12:00] VITALS: BP 128/80; PULSE 72; PULSE 77; RESP 20; TEMP 36.8; O2SAT 100
--- NOTE | 2022-02-26 13:08 | EXP.DC.SUM ---
General Admission date:: 02/17/22 Discharge date: 02/26/22 HPI HPI HPI: Ms. Meza is a 71-year-old patient with multiple multiple medical issues to include hypertension, hyperlipidemia, type 2 diabetes mellitus, type 2 diabetes mellitus, status post angioplasty with stent, COPD, bilateral lower extremity edema, kidney disease, Congestive heart failure, asthma, deep vein thrombosis, arthritis, and history of rheumatic fever who was brought to [facility] room by family due to shortness of breath and altered mental status. A.m. after admission she stated her breathing was somewhat difficult. She denied chest pain although she admited to some chest pain in the right lower anterior chest wall yesterday. Pain had resolved as of today. She did not recall much of the previous day but said all her symptoms started yesterday. She did admit to productive cough at times. She denied any nausea or vomiting but stated she had diarrhea. She could not recall the frequency or when it started. Temperature was 99 and O2 sats 99% on O2 at 2 L/min. With assessment in the emergency room temperature was found to be 97.7. O2 sats were 95% on nasal O2 at 2 L/min. Also to note white blood cell count was 20,500. Hemoglobin was 13.4. BUN was 35 and creatinine was 1.8. GFR 28. Troponin I was 0.02. C-reactive protein and procalcitonin were both elevated. Also to note her SARS COVID was positive. Lactate was elevated at 3.5. She was given 500 mL of saline IV and started on vancomycin. Levaquin was ordered. Hospital Course Hospital Course Hospital Course: On admission patient was felt to be in acute respiratory failure with hypoxia. White count was elevated at 20,500 And she was positive for COVID. Lactate was 1.9. She was started on vancomycin and Levaquin. She was receiving IV fluids at 100 an hour. She was started on Lovenox and sliding scale insulin. Duo nebs were ordered. She did have a skin rash and nystatin was ordered for this. She was seen by pulmonology with the following Assessment and plan: Ms. Myers is a 71-year-old female following in pulmonary clinic for exertional dyspnea, asthma COPD overlap syndrome, tobacco abuse, lung nodules, adenopathy? and lung cancer screening last seen in the clinic in September with stable nodules with other comorbidities including hypertension, diabetes mellitus, CAD status post stenting, CHF presented to the hospital worsening respiratory distress and pulmonary was called for further evaluation. COVID-19 PCR resulted positive.? Chest x-ray on admission personally viewed, right lower lobe consolidation/atelectasis.? Significant leukosis on admission 20.5 neutrophilic predominant.? Hemodynamically stable.? Tachycardic. Patient upon admission was initiated on vancomycin and levofloxacin 500 mg every 24 hours along with DuoNebs every 6 scheduled. Needing oxygen comes at 2 L, new from baseline but not needing any oxygen. ABG from this morning ordered and reviewed, did not show any evidence of hypercarbic respiratory failure.? Continue to hypoxic respiratory failure with a PO2 68.4 on 2 L nasal cannula Plan: Continue oxygen supplementation to maintain O2 saturation goal of 90% and above Continue levofloxacin 750mg x 5 days Initiate remdesivir x 5 days or untill discharge Continue DuoNebs every 6 hours scheduled CRP and LDH with AM labs Follow with sputum culture Incentive spirometry Patient was in atrial fib with a rapid ventricular response. She was started on a Cardizem drip because of the high Ventricular rate. White blood cell count was improving. Pulmonology did follow her throughout her stay. To note patient was also on remdesivir.Patient did require periodic Lasix for diuresis Patient stabilized and began to feel better. Care management was working on disposition for her as she did not feel like she could go home. Physical therapy and Occupational Therapy were ordered. She was able to get up
[2022-02-26 16:00] VITALS: BP 154/65; PULSE 69; RESP 16; TEMP 36.4; O2SAT 100
--- NOTE | 2022-02-26 16:20 | PC.NURSE ---
PT HAS NOT HAD A BM DOCUMENTED SINCE 02/19, NOTIFIED [facility], WAITING FOR A CALL BACK. UNABLE TO SEND PT TO [facility] AT THIS TIME.
[2022-02-26 16:39] LABS: POC Glucose,Bedside 209 (70-110)
--- NOTE | 2022-02-27 11:30 | CARE MANAGER ---
Attempted post-discharge phone call. No answer from nurse at [facility].
== END 2022-02-26 17:35 | DRG 177 ==
LOC: ER 22:32 → 2ND 02-17 00:31
PROVIDERS: Internal Medicine Pulmonary Disease; Nurse Practitioner Family; Admitting Provider Family Medicine; Emergency Provider Emergency Medicine; PCP Family Medicine; Visit Provider Family Medicine
DX: J44.0 Chronic obstructive pulmonary disease with (acute) lower respiratory infection (principal); U07.1 COVID-19; J12.82 Pneumonia due to coronavirus disease 2019; J96.01 Acute respiratory failure with hypoxia; E66.9 Obesity, unspecified; E11.40 Type 2 diabetes mellitus with diabetic neuropathy, unspecified; I25.10 Atherosclerotic heart disease of native coronary artery without angina pectoris; Z68.36 Body mass index [BMI] 36.0-36.9, adult; Z79.84 Long term (current) use of oral hypoglycemic drugs; I25.2 Old myocardial infarction; M19.90 Unspecified osteoarthritis, unspecified site; I11.0 Hypertensive heart disease with heart failure; I50.9 Heart failure, unspecified; Z95.5 Presence of coronary angioplasty implant and graft; E78.2 Mixed hyperlipidemia
CPT/HCPCS: 36410; 36415; 36569; 71045; 80048; 80053; 80061; 80076; 80202; 81001; 82009; 82803; 82962; 83605; 83615; 84145; 84439; 84443; 84484; 85007; 85025; 85651; 86140; 87040; 87070; 87086; 87088; 87186; 87205; 93005; 93306; 93308; 94640; 94761; 97110; 97116; 97162; 97165; 97530; 97535; 99285; C1751; C9803; J0282; J1956; J7060; U0003; U0005

== ENCOUNTER → 2022-11-03 14:02 | Outpatient (CLI) | payer MEDICARE, MEDICAID, SELFPAY ==
--- NOTE | 2022-11-03 14:02 | CT_ITS ---
FINAL REPORT CLINICAL HISTORY: lung cancer screening FORMER SMOKER ,SMOKED 1 PK PER DAY X 50 YRS COPD, CAD COMPARISON: 09/24/2021 FINDINGS: CT CHEST LOW DOSE SCREENING HISTORY: Screening exam for lung cancer. Former smoker, 50 pack year smoking history DOSE: CTDIvol: 2.9 mGy, DLP: 108.9 mGy*cm COMPARISON: 09/24/2021. TECHNIQUE: Axial CT without IV contrast administration using low dose protocol FINDINGS: There are severe coronary artery calcifications present, particularly at the origin of the left subclavian artery which appears to have a high-grade stenosis. Mild changes of emphysema are present. There is a posteromedial right lower lobe 2 mm nodule best seen on axial image #52 that is new since the prior CT of September 2021. There is a 2 mm lateral right lower lobe nodule seen best on axial image #54 which is stable since the prior exam. There has been interval resolution of a posterior right lower lobe nodule seen on the prior examination. There is a calcified granuloma in the left lung and mild scarring in the lung bases. The gallbladder has been surgically resected. No pleural or pericardial effusion is seen . No adenopathy or mass lesion is present . IMPRESSION: New posteromedial right lower lobe 2 mm nodule new since the prior CT of 10/11, best seen on axial image #52. Otherwise stable CT of the chest. The S classification is for the severe coronary artery and left subclavian artery origin calcifications. LUNG RADS CATEGORY 2S RECOMMENDATION: 12 month LDCT follow up Reviewed, Interpreted and Dictated by Shoaib Booth III, MD Transcribed by Jenny Lewis Authenticated and [facility]
== END ==
PROVIDERS: PCP Family Medicine; Visit Provider Internal Medicine Pulmonary Disease
DX: Z87.891 Personal history of nicotine dependence (principal); Z12.2 Encounter for screening for malignant neoplasm of respiratory organs
CPT/HCPCS: 71271

== ENCOUNTER → 2022-11-13 11:20 | Outpatient (CLI) | payer MEDICARE, MEDICAID, SELFPAY ==
--- NOTE | 2022-11-13 11:41 | XR_ITS ---
FINAL REPORT CLINICAL HISTORY: on amiodarone therapy COMPARISON: 02/24/2022 FINDINGS: TWO-VIEW CHEST There is mild cardiomegaly. Left PICC line has been removed. The mediastinum is normal. Abnormal opacity in the medial right base has significantly improved. There is mild scarring in the right infrahilar region. There is no pneumothorax. IMPRESSION: Medial right base opacity significantly improved. Reviewed, Interpreted and Dictated by Haroon Osborn MD Transcribed by Yomaira Alfonso Authenticated and [facility]
[2022-11-13 12:08] LABS: Basophils % 0.2 % (0.1-2.0); Eosinophils # 0.1 K/mm3 (0.0-0.4); Eosinophils % 1.2 % (0.1-12.0); Hemoglobin 11.4 g/dL (12.2-16.2); Lymphocytes # 1.2 K/mm3 (0.7-4.5); Lymphocytes % 13.3 % (10-50); Mean Corpuscular HGB Conc 30.9 g/dL (31.8-35.4); Mean Corpuscular Hemoglobin 29.5 pg (27.0-31.2); Mean Corpuscular Volume 95.4 fl (81-99); Mean Platelet Volume 7.7 fl (7.4-10.4); Monocytes # 0.6 K/mm3 (0.1-1.0); Monocytes % 6.9 % (1.7-9.3); Neutrophils # 7.3 K/mm3 (1.8-7.8); Neutrophils % 78.4 % (37.0-80.0); Platelet Count 287 K/mm3 (142-424); Red Blood Count 3.88 M/mm3 (4.20-5.40); Red Cell Distribution Width 14.9 % (11.5-17.5); White Blood Count 9.3 K/mm3 (4.8-10.8)
[2022-11-13 12:59] LABS: Chloride 103 mmol/L (98-107); Sodium 137 mmol/L (136-145)
[2022-11-13 13:02] LABS: Alanine Aminotransferase 141 U/L (12-78); Albumin Level 3.4 g/dl (3.5-5.0); Alkaline Phosphatase 174 U/L (38-126); Aspartate Amino Transferase 109 U/L (14-36); Bilirubin,Direct 0.4 mg/dl (0.0-0.4); Bilirubin,Total 0.4 mg/dl (0.2-1.3); Blood Urea Nitrogen 31 mg/dl (7-17); Cholesterol 98 mg/dl (140-200); Estimated Glomerular Filt Rate 32 ml/min (>60); GFR (African American) 38 ML/MIN (>60); Triglycerides 122 mg/dl (30-150); VLDL Cholesterol 24 mg/dL (0-40)
[2022-11-13 13:03] LABS: Calcium 9.2 mg/dl (8.4-10.2); Chol/HDL Ratio 2.7 (1-3.5); Glucose 121 mg/dl (74-100); HDL Cholesterol 36 mg/dl (40-60); Total Protein,Serum 5.9 g/dl (6.3-8.2)
[2022-11-13 13:14] LABS: Direct LDL Cholesterol 48.57 mg/dL (100-129)
[2022-11-13 13:21] LABS: Free T4 (Free Thyroxine) 0.84 ng/dl (0.78-2.19)
[2022-11-13 19:27] LABS: Carbon Dioxide 25 mmol/L (22.0-30.0)
== END ==
PROVIDERS: PCP Family Medicine; Visit Provider Nurse Practitioner Family
DX: E66.9 Obesity, unspecified (principal); E78.5 Hyperlipidemia, unspecified; I25.10 Atherosclerotic heart disease of native coronary artery without angina pectoris; I48.0 Paroxysmal atrial fibrillation; Z79.899 Other long term (current) drug therapy; R06.00 Dyspnea, unspecified; I11.9 Hypertensive heart disease without heart failure; Z68.33 Body mass index [BMI] 33.0-33.9, adult
CPT/HCPCS: 36415; 71046; 80048; 80061; 80076; 84439; 84443; 85025

== ENCOUNTER → 2022-11-18 05:30 | Outpatient (CLI) | payer MEDICARE, MEDICAID, SELFPAY ==
--- NOTE | 2022-11-18 | CA_ITS ---
FINAL REPORT TECHNIQUE: Real-time imaging was performed of the extracranial carotid arteries in transverse and longitudinal planes, with color duplex evaluation of blood flow velocity. Spectral analysis was performed. The cervical vertebral arteries were also examined. CLINICAL HISTORY: Carotid artery stenosis. CAD COMPARISON: None FINDINGS: NASCET technique is utilized for stenosis evaluation. Right carotid system (centimeters/second): CCA: 74 ICA: 232 ECA: 138 Vertebral artery: Antegrade ICA/CCA ratio: 3.14 Moderate bulky plaque plaque is identified at the bifurcation. Left carotid system (centimeters/second): CCA: 110 ICA: 168 ECA: 113 Vertebral artery: Antegrade ICA/CCA ratio: 1.67 Moderate bulky plaque is identified at the bifurcation. IMPRESSION: 50-69% right ICA stenosis. Less than 50% left ICA stenosis. Bilateral antegrade flow in the vertebral arteries Reviewed, Interpreted and Dictated by Haroon Osborn MD Transcribed by Jenny Lewis Authenticated and [facility]
== END ==
PROVIDERS: PCP Family Medicine; Visit Provider Nurse Practitioner Family
DX: I65.23 Occlusion and stenosis of bilateral carotid arteries (principal)
CPT/HCPCS: 93880

== ENCOUNTER → 2022-12-03 09:39 | Outpatient (CLI) | payer MEDICARE, MEDICAID, SELFPAY ==
[2022-12-03 10:36] LABS: Basophils % 0.2 % (0.1-2.0); Eosinophils # 0.1 K/mm3 (0.0-0.4); Eosinophils % 1.2 % (0.1-12.0); Hematocrit 35.5 % (37.0-47.0); Hemoglobin 10.7 g/dL (12.2-16.2); Lymphocytes # 0.9 K/mm3 (0.7-4.5); Lymphocytes % 12.8 % (10-50); Mean Corpuscular HGB Conc 30.2 g/dL (31.8-35.4); Mean Corpuscular Volume 95.9 fl (81-99); Monocytes # 0.6 K/mm3 (0.1-1.0); Monocytes % 7.8 % (1.7-9.3); Neutrophils # 5.7 K/mm3 (1.8-7.8); Platelet Count 338 K/mm3 (142-424); Red Cell Distribution Width 15.4 % (11.5-17.5); White Blood Count 7.3 K/mm3 (4.8-10.8)
[2022-12-03 11:27] LABS: Alanine Aminotransferase 122 U/L (12-78); Albumin Level 3.4 g/dl (3.5-5.0); Alkaline Phosphatase 139 U/L (38-126); Anion Gap 13.7 mEq/L (5-15); Aspartate Amino Transferase 72 U/L (14-36); Bilirubin,Direct 0.1 mg/dl (0.0-0.4); Blood Urea Nitrogen 27 mg/dl (7-17); Carbon Dioxide 24 mmol/L (22.0-30.0); Chloride 105 mmol/L (98-107); Estimated Glomerular Filt Rate 44 ml/min (>60); GFR (African American) 53 ML/MIN (>60); Glucose 123 mg/dl (74-100); Magnesium 2.2 mg/dl (1.6-2.3); Potassium 4.7 mmoL/L (3.5-5.1); Sodium 138 mmol/L (136-145); Total Protein,Serum 5.9 g/dl (6.3-8.2)
[2022-12-03 11:29] LABS: Bilirubin,Total 0.1 mg/dl (0.2-1.3)
[2022-12-03 11:42] LABS: Free T4 (Free Thyroxine) 0.72 ng/dl (0.78-2.19)
== END ==
PROVIDERS: Physician Assistant; PCP Family Medicine; Visit Provider Internal Medicine
DX: E11.59 Type 2 diabetes mellitus with other circulatory complications (principal); I25.118 Atherosclerotic heart disease of native coronary artery with other forms of angina pectoris; I48.0 Paroxysmal atrial fibrillation; Z79.84 Long term (current) use of oral hypoglycemic drugs
CPT/HCPCS: 36415; 80048; 80076; 83735; 84439; 84443; 85025

== ENCOUNTER 2023-01-03 02:07 | Inpatient (IN) | payer MEDICARE, MEDICAID, SELFPAY ==
[2023-01-03] VITALS (12 sets, daily range): BP systolic 100–146; BP diastolic 44–91; PULSE 60–86; RESP 13–20; TEMP 36.4–38.2; O2SAT 86–99; BMI 31.9; BMI 32.7
--- NOTE | 2023-01-03 02:07 | XR_ITS ---
PROCEDURE INFORMATION: Exam: XR Chest Exam date and time: 01/03/2023 2:36 AM Age: 72 years old Clinical indication: Fever; Additional info: Fever unknown origin TECHNIQUE: Imaging protocol: Radiologic exam of the chest. Views: 1 view. COMPARISON: CR XR CHEST 2V 11/13/2022 11:43 AM FINDINGS: Lungs: Unremarkable. No consolidation. Pleural spaces: Unremarkable. No pleural effusion. No pneumothorax. Heart/Mediastinum: Unremarkable. No cardiomegaly. Bones/joints: Unremarkable. IMPRESSION: No acute findings.
--- NOTE | 2023-01-03 02:13 | HMH.EDGENADL ---
Discharge Plan Disposition Patient Disposition: Admitted Clinical Impressions Clinical Impression: Fever, Pneumonia, DIANELYS (acute kidney injury), Transaminitis Discharge ED Provider: Leia Quintana General Adult HPI General Chief complaint: Fever Stated complaint: fever,body aches Time Seen by Provider: 01/03/23 02:07 Mode of Arrival: EMS Source of Information: Patient Limitations: No Limitations Description of Symptoms (Recalled from ER Triage Doc. by RN): 72 yo female presents with CC of shaking all over and feeling cold ; EMS reports patient has called 2x in last 12 hours for response, the first being because she almost fell and was shaking but refused transport, and 2nd being shaking, feeling cold, and short-winded. Patient reports she has oxygen readily available at home but just didn't use it , that she is shaking all over and denies any n/v/d, dyspnea, chest pain, back pain. History of Present Illness HPI narrative: This patient is a 72-year-old female with extensive smoking history and COPD on home oxygen, tremors, hypertension, hyperlipidemia, CAD, RANDY, type 2 diabetes, obesity, and chronic debility presenting to the emergency department for evaluation with concern for generalized weakness, shaking chills, and fever. Patient is called EMS twice in the last 2 hours, the first time because she almost fell. She denies actually falling. She called EMS again because of the shaking all over. She states that she has had a cough, but she denies any chest pain, shortness of breath, abdominal pain, nausea, vomiting, diarrhea, dysuria, polyuria, or other concerns. She notes she is having a lot of trouble walking to the bathroom because she feels weak all over. Related Data Home Medications Medication Instructions Recorded Confirmed hydroxyzine HCl 25 mg tablet 25 mg PO BID Anxiety 90 days #180 05/13/18 11/13/22 tabs montelukast 10 mg tablet 10 mg PO DAILY Asthma 11/09/19 11/13/22 (Singulair) potassium chloride 10 mEq 10 meq PO DAILY Potassium 11/09/19 11/13/22 capsule,extended release replacement 90 days #90 caps cholecalciferol (vitamin D3) 25 2,000 unit PO DAILY Diet supplement 01/24/20 11/13/22 mcg (1,000 unit) capsule glucosamine [id number] 1 each PO BID [employer] 01/24/20 11/13/22 des 1,500 mg-400 unit-100 mg tablet pyridoxine (vitamin B6) 100 mg/2.5 100 mg PO DAILY Diet supplement 01/24/20 11/13/22 mL oral liquid bupropion HCl (smoking deter) 150 150 mg PO BID Depression 07/11/21 11/13/22 mg tablet,12 hr sustained-release(smoking deterrent) nitroglycerin 0.4 mg sublingual 0.4 mg sublingual DIRECTED 07/11/21 11/13/22 tablet Chest pain furosemide 20 mg tablet 20 mg PO DAILY Fluid 09/10/21 11/13/22 empagliflozin 10 mg tablet 10 mg PO DAILY Diabetes 02/16/22 11/13/22 (Jardiance) metformin 500 mg tablet 500 mg PO BID Diabetes 02/16/22 11/13/22 rosuvastatin 40 mg tablet 40 mg PO DAILY High cholesterol 02/16/22 11/13/22 bisoprolol fumarate 10 mg tablet 10 mg PO BID Hypertension 02/17/22 11/13/22 gabapentin 100 mg capsule 100 mg PO BID Pain 02/17/22 11/13/22 magnesium oxide 400 mg (241.3 mg 400 mg PO DAILY Supplement 02/17/22 11/13/22 magnesium) tablet sitagliptin phosphate 100 mg 100 mg PO DAILY Diabetes 02/17/22 11/13/22 tablet (Januvia) tiotropium bromide 1.25 2 puff inhalation DAILY Breathing 02/17/22 11/13/22 mcg/actuation mist for inhalation problems (Spiriva Respimat) acetaminophen 500 mg tablet 500 mg PO QID PRN 05/15/22 11/13/22 amiodarone 200 mg tablet 200 mg PO DAILY 05/15/22 11/13/22 clopidogrel 75 mg tablet 75 mg PO DAILY 05/15/22 11/13/22 ferrous sulfate 325 mg (65 mg 325 mg PO BID 05/15/22 11/13/22 iron) tablet (Feosol) pantoprazole 40 mg tablet,delayed 40 mg PO DAILY 05/15/22 11/13/22 release sennosides 8.6 mg tablet (senna) 17.2 mg PO DAILY 05/15/22 11/13/22 mometasone-formoterol HFA 200 2 puff inhalation BID 06/02/22 11/13/22 mcg-5 mcg/actuation
[2023-01-03 02:32] LABS: Basophils % 0.1 % (0.1-2.0); Eosinophils # 0.1 K/mm3 (0.0-0.4); Eosinophils % 0.8 % (0.1-12.0); Hemoglobin 10.8 g/dL (12.2-16.2); Lymphocytes # 0.4 K/mm3 (0.7-4.5); Lymphocytes % 2.8 % (10-50); Mean Corpuscular HGB Conc 31.9 g/dL (31.8-35.4); Mean Corpuscular Hemoglobin 29.8 pg (27.0-31.2); Mean Corpuscular Volume 93.6 fl (81-99); Mean Platelet Volume 8.2 fl (7.4-10.4); Monocytes # 0.4 K/mm3 (0.1-1.0); Monocytes % 2.5 % (1.7-9.3); Neutrophils # 14.4 K/mm3 (1.8-7.8); Neutrophils % 93.8 % (37.0-80.0); Platelet Count 269 K/mm3 (142-424); Red Blood Count 3.64 M/mm3 (4.20-5.40); Red Cell Distribution Width 14.6 % (11.5-17.5); White Blood Count 15.3 K/mm3 (4.8-10.8)
[2023-01-03 02:36] LABS: MANUAL DIFFERENTIAL MANUAL DIFFERENTIAL (MANUAL DIFF)
[2023-01-03 02:41] LABS: Alanine Aminotransferase 416 U/L (12-78); Albumin Level 3.7 g/dl (3.5-5.0); Albumin/Globulin Ratio 1.1 (1.1-1.8); Alkaline Phosphatase 135 U/L (38-126); Anion Gap 14.4 mEq/L (5-15); Aspartate Amino Transferase 504 U/L (14-36); Bilirubin,Total 0.5 mg/dl (0.2-1.3); Blood Urea Nitrogen 35 mg/dl (7-17); Calcium 8.8 mg/dl (8.4-10.2); Carbon Dioxide 27 mmol/L (22.0-30.0); Chloride 95 mmol/L (98-107); Creatinine Clearance Estimated 32 mL/min (50-200); Estimated Glomerular Filt Rate 26 ml/min (>60); GFR (African American) 31 ML/MIN (>60); Globulin 3.4 g/dL (1.3-3.2); Glucose 180 mg/dl (74-100); Potassium 4.4 mmoL/L (3.5-5.1); Sodium 132 mmol/L (136-145); Total Protein,Serum 7.1 g/dl (6.3-8.2)
[2023-01-03 02:42] LABS: Lactic Acid 1.4 mmol/L (0.7-2.1)
--- NOTE | 2023-01-03 02:42 | PC.NURSE ---
Patients brief was changed, pericare provided. Purewick placed
[2023-01-03 02:55] LABS: Coronavirus 19, PCR Not Detected (NotDetected); Influenza A, PCR Not Detected (NotDetected); Influenza B, PCR Not Detected (NotDetected)
[2023-01-03 03:02] LABS: Procalcitonin 3.04 ng/mL (0.0-2.0)
[2023-01-03 03:03] LABS: Monocytes % 1 % (2-9); Neutrophils % 91 % (42-76); Total Cells Counted 100
[2023-01-03 03:04] LABS: Platelet Estimate Normal; RBC Morphology Normal
[2023-01-03 03:12] LABS: INR 1.04 (0.9-1.1); Lipase 29 U/L (23-300); Prothrombin Time 11.2 seconds (10.1-12.5)
[2023-01-03 03:13] LABS: Acetaminophen < 10 ug/ml (10-30)
--- NOTE | 2023-01-03 04:13 | PC.NURSE ---
paged at this time.
--- NOTE | 2023-01-03 04:15 | PC.NURSE ---
o/p with who is behavior interventionist.
--- NOTE | 2023-01-03 04:19 | PC.NURSE ---
accepted patient at this this time.
--- NOTE | 2023-01-03 04:20 | PC.NURSE ---
insurance office supervisor notified of patient being admitted to 2nd floor.
--- NOTE | 2023-01-03 04:20 | PC.NURSE ---
Admitting notified of admission. [place] to [place], OBS, Pneumonia/DIANELYS/Elevated Liver Enzymes, 213
--- NOTE | 2023-01-03 04:45 | PC.NURSE ---
Nurse to nurse report to Mari CHAU.
--- NOTE | 2023-01-03 04:59 | PC.NURSE ---
Pt arrived to the floor via stretcher @ [id number]
--- NOTE | 2023-01-03 09:02 | EXP.HP ---
History of Present Illness *Admission Date: 01/03/23 *Reason for visit:: Tremors *History of present illness: Mrs. Silvestre is a 72 year old patient of [facility] who sees Dr. Moore for her primary care, who presented to [facility] ER last night with a 2 day history of chills and tremors. She states she did not take her temperature. She felt a little weak but had no other complaints. She has a chronic cough due to COPD but was basically at baseline. [facility] Disclaimer: The information contained in this section may have been updated after the patient was seen, as this information can be updated by other users. Medical History (Updated 01/03/23 @ 12:21 by Tomasz Haney MD) Acute respiratory failure with hypoxia Arthritis Asthma Asthma-chronic obstructive pulmonary disease overlap syndrome Atrial fibrillation with rapid ventricular response Bilateral lower extremity edema COPD (chronic obstructive pulmonary disease) COPD mixed type Coronary artery disease Diabetes mellitus, type 2 Diabetic foot Encounter for screening for malignant neoplasm of lung in current smoker with 30 pack year history or greater Exposure to TB Gastroenteritis GI bleed Hilar lymphadenopathy Hyperlipidemia Hypertension Ileus, unspecified Keratosis Kidney disease Mediastinal lymphadenopathy Multifocal atrial tachycardia Multiple lung nodules on CT Non-STEMI (non-ST elevated myocardial infarction) Obesity (BMI 30.0-34.9) Onychodystrophy Onychogryphosis PAF (paroxysmal atrial fibrillation) Pincer nail deformity Pneumonia Pneumonia due to COVID-19 virus Pre-ulcerative calluses Rheumatic fever/heart disease Right lower lobe pneumonia Sepsis Sepsis SIRS (systemic inflammatory response syndrome) Smoking greater than 30 pack years Stage 3a chronic kidney disease (CKD) Tobacco use Type 2 diabetes mellitus with diabetic neuropathy, without long-term current use of insulin Surgical History History of cholecystectomy History of coronary artery stent placement History of hip surgery Hx of removal of ovary Family History Diabetes Coronary artery disease Hypertension Social History Smoking Status: Former smoker tobacco type: cigarettes packs per day: 1 years smoked: 50 smoking status stop date: 2 years ago second hand exposure: Yes alcohol intake: never substance use type: denies use current occupational status: retired Travel in the last 8 weeks: None household members: none housing: house current occupational exposures/hazards: No caffeine: Yes Review of Systems Constitutional Constitutional: Reports chills and Denies fever(s) Eyes Eyes: Denies blurry vision ENT Ears, Nose, Mouth, and Throat: Denies dizziness and Denies dysphagia *Cardiovascular Cardiovascular: Denies chest pain *Respiratory Respiratory: Denies hemoptysis *Gastrointestinal Gastrointestinal: Denies constipation, Denies dysphagia and Denies loose stools *Genitourinary Genitourinary: Denies difficulty voiding *Musculoskeletal Musculoskeletal: Denies arthralgias Integumentary/Breasts Skin/Breast: Denies rash *Neurologic Neurologic: Denies dizziness Meds Home Medications and Allergies Home Medications Medication Instructions Recorded Confirmed Type hydroxyzine HCl 25 mg tablet 25 mg PO BID Anxiety 90 days #180 05/13/18 01/03/23 History tabs montelukast 10 mg tablet 10 mg PO DAILY Asthma 11/09/19 01/03/23 History (Singulair) bupropion HCl (smoking deter) 150 150 mg PO BID Depression 07/11/21 01/03/23 History mg tablet,12 hr sustained-release(smoking deterrent) nitroglycerin 0.4 mg sublingual 0.4 mg sublingual Q5MINP PRN Chest 07/11/21 01/03/23 History tablet Pain empagliflozin 10 mg tablet 10 mg PO DAILY CAD 02/16/22 01/03/23 History (Jardiance) metform
--- NOTE | 2023-01-03 10:45 | PC.NURSE ---
contacted pts pharmacy to get an accurate medication list. awaiting fax
--- NOTE | 2023-01-03 11:43 | PC.NURSE ---
entered in all of pts home medications. geovany LAGUERRE
--- NOTE | 2023-01-03 12:05 | HMH.PHAINT1 ---
Pharmacy Intervention Comments: MEDICATION RECONCILIATION COMPLETE USING LIST PROVIDED BY FAMILY, EXTERNAL PHARMACY FILL HISTORY, AND MOST RECENT CARDIOLOGY OFFICE VISIT (10/2022).
[2023-01-03 13:58] LABS: Microscopic, Urine URINE MICROSCOPIC (MICROSCOPIC)
--- NOTE | 2023-01-03 14:09 | PC.NURSE ---
urine sent to lab. cloudy with a strong odor
--- NOTE | 2023-01-03 14:11 | PC.NURSE ---
pt refused lovenox injection. She states the last time she was on 2 blood thinners she had a GI bleed and was hospitalized for a long time
[2023-01-03 14:14] LABS: Appearance,Urine SL CLOUDY (Clear); Bilirubin,Urine Negative (Negative); Blood, Urine 2+ (Negative); Color,Urine YELLOW (Yellow); Glucose,Urine (UA) 3+ (Negative); Ketones,Urine Negative (Negative); Leukocyte Esterase,Urine 2+ (Negative); Nitrate,Urine Negative (Negative); Protein,Urine 1+ (Negative); Urobilinogen,Urine 0.2 EU/dl (0.2)
[2023-01-03 14:25] LABS: POC Glucose,Bedside 130 (70-110)
[2023-01-03 14:35] LABS: Bacteria,Urine 1+ /lpf
--- NOTE | 2023-01-03 15:25 | PC.NURSE ---
pts gait is unsteady and she is weak. complains of feeling shaky when she attempts to ambulate.
--- NOTE | 2023-01-03 17:04 | HMH.PTEV ---
Physical Therapy Evaluation Rehab PT IP Evaluation Start: 01/03/23 15:24 Freq: .once Status: Active Protocol: Document 01/03/23 16:50 HWELEAZAR (Rec: 01/03/23 17:03 HWADE [id number]) Subjective/History History History Pt is a 72 year old female that present to [facility] ED with a 2 day history of chills and tremors. Pt reported that she felt a little weak but had no other complaints. Antibiotics were started empirically for pneumonia treatment and pt was admitted to [facility] for further evaluation and treatment. PMH: ashtma, DM2, COPD, arthritis, CKD, a-fib, CAD, GI bleed, HTN, Non-STEMI, PNA, sepsis Subjective Subjective Pt presents seated in bedside chair, pleasant and agreeable to PT initial evaluation. Pt reports she is having a little back pain at rest. Pt reports that she lives at [facility] in [facility] with 0 DAERN. Pt reports that she typically uses a RW for ambulation and power w/c for out of home mobility. Pt reports that she has neighbors/friends that check on her most days. Pt performed sit to stand from bedside chair with mod (I), requiring increased time and effort to perform and the use of a RW. Pt ambulated x25' with the use of a RW and min A , demonstrated signs of dyspnea during. When returning to chair, pt experienced 1 LOB that required PT assist to correct and prevent a fall. Following evaluation, pt left seated in bedside chair with call light and all needs within reach. New diagnosis of cancer in past 12 No months? Rehab PT IP Eval Objective Appearance Patient Behavior Appropriate,Cooperative Patient Orientation
[2023-01-03 17:46] LABS: POC Glucose,Bedside 113 (70-110)
[2023-01-04] VITALS (8 sets, daily range): BP systolic 103–141; BP diastolic 59–96; PULSE 63–86; RESP 16–18; TEMP 36.9–37; O2SAT 91–98; BMI 32.7
[2023-01-04 01:25] LABS: POC Glucose,Bedside 169 (70-110)
[2023-01-04 06:34] LABS: POC Glucose,Bedside 101 (70-110)
[2023-01-04 08:35] LABS: Chloride 101 mmol/L (98-107); Potassium 4.6 mmoL/L (3.5-5.1); Sodium 134 mmol/L (136-145)
[2023-01-04 08:38] LABS: Alanine Aminotransferase 320 U/L (12-78); Albumin Level 2.8 g/dl (3.5-5.0); Alkaline Phosphatase 94 U/L (38-126); Anion Gap 15.6 mEq/L (5-15); Aspartate Amino Transferase 269 U/L (14-36); Basophils % 0.1 % (0.1-2.0); Bilirubin,Total 0.2 mg/dl (0.2-1.3); Blood Urea Nitrogen 33 mg/dl (7-17); Calcium 8.5 mg/dl (8.4-10.2); Carbon Dioxide 22 mmol/L (22.0-30.0); Creatinine Clearance Estimated 35 mL/min (50-200); Eosinophils # 0.1 K/mm3 (0.0-0.4); Eosinophils % 0.4 % (0.1-12.0); Estimated Glomerular Filt Rate 28 ml/min (>60); GFR (African American) 33 ML/MIN (>60); Globulin 2.7 g/dL (1.3-3.2); Glucose 180 mg/dl (74-100); Hematocrit 30.2 % (37.0-47.0); Hemoglobin 9.7 g/dL (12.2-16.2); Lymphocytes # 0.7 K/mm3 (0.7-4.5); Lymphocytes % 5.3 % (10-50); Mean Corpuscular HGB Conc 32.2 g/dL (31.8-35.4); Mean Corpuscular Hemoglobin 30.8 pg (27.0-31.2); Mean Corpuscular Volume 95.7 fl (81-99); Mean Platelet Volume 8.2 fl (7.4-10.4); Monocytes # 0.9 K/mm3 (0.1-1.0); Monocytes % 6.9 % (1.7-9.3); Neutrophils # 11.9 K/mm3 (1.8-7.8); Neutrophils % 87.2 % (37.0-80.0); Platelet Count 177 K/mm3 (142-424); Red Blood Count 3.16 M/mm3 (4.20-5.40); Red Cell Distribution Width 14.4 % (11.5-17.5); Total Protein,Serum 5.5 g/dl (6.3-8.2); White Blood Count 13.6 K/mm3 (4.8-10.8)
[2023-01-04 08:47] LABS: MANUAL DIFFERENTIAL MANUAL DIFFERENTIAL (MANUAL DIFF)
[2023-01-04 09:17] LABS: Lymphocytes % 5 % (10-50); Monocytes % 7 % (2-9); Neutrophils % 88 % (42-76); Total Cells Counted 100
[2023-01-04 09:23] LABS: Platelet Estimate Normal; RBC Morphology Normal
[2023-01-04 09:25] LABS: HBsAg Screen Negative (Negative); HCV Ab Non Reactive (Non Reactive); Hep A Ab, IGM Negative (Negative); Hep B Core Ab, IgM Negative (Negative)
--- NOTE | 2023-01-04 09:36 | EXP.ACUTE.PN ---
Subjective *Date: 01/04/23 *Time: 09:36 Interval history: Patient states she feels a little better this morning. Her cough is more frequent now and she is producing more sputum. Medical Exam Vital signs and Labs for Last 24 Hours: Vital Signs Temp Pulse Resp BP Pulse Ox O2 Del Method O2 Flow Rate 01/04/23 07:30 98.5 F 78 18 103/59 L 98 Nasal Cannula 2 01/04/23 04:00 98.4 F 70 17 105/59 L 97 Nasal Cannula 01/04/23 06:49 Nasal Cannula 2 01/04/23 05:00 Nasal Cannula 2 01/04/23 03:00 Nasal Cannula 2 01/04/23 01:00 Nasal Cannula 2 01/03/23 23:00 Nasal Cannula 2 01/03/23 20:58 Nasal Cannula 2 01/03/23 20:00 Nasal Cannula 2 01/03/23 19:35 99 F 77 18 137/87 99 Nasal Cannula 3.5 01/03/23 17:00 Room Air 01/03/23 15:00 Room Air 01/03/23 15:46 97.6 F 72 20 134/47 L 98 Nasal Cannula 01/03/23 13:00 Nasal Cannula 2 01/03/23 11:00 Nasal Cannula 2 Intake and Output 01/03/23 01/04/23 01/04/23 23:59 07:59 15:59 Intake Total 470 / 1210 970 / 970 Output Total 0 / 0 700 / 700 Balance 470 / 1210 270 / 270 Intake: Intake, Oral Amount 470 / 910 670 / 670 Intake, Total IV Amount 300 / 300 Lactated Ringers 1000ML 1,000 300 / 300 ml @ 50 mls/hr IV .Q20H [facility] Rx# :[id number] Output: Output, Urine Amount 0 / 0 700 / 700 Other: Number of Voids 1 Number of Unmeasured Voids 1 0 Weight 173 lb 6.4 oz Patient Weight 01/04/23 23:59 Weight 173 lb 6.4 oz Laboratory Results - last 24 hr 01/03/23 04:16: Hepatitis A IgM Ab Negative, Hep Bs Antigen Negative, Hep B Core IgM Ab Negative, Hepatitis C Antibody Non reactive 01/03/23 11:49: POC Glucose 130 H 01/03/23 13:44: Urine Color Yellow, Urine Appearance Sl cloudy, Urine pH 6.0, Ur Specific [place] 1.010, Urine Protein 1+, Urine Glucose (UA) 3+, Urine Ketones Negative, Urine Blood 2+, Urine Nitrate Negative, Urine Bilirubin Negative, Urine Urobilinogen 0.2, Ur Leukocyte Esterase 2+ A, Urine RBC 5-10, Urine WBC 5-10, Ur Squamous Epith Cells 3-5, Urine Bacteria 1+ 01/03/23 17:37: POC Glucose 113 H 01/03/23 19:52: POC Glucose 169 H 01/04/23 05:54: POC Glucose 101 01/04/23 08:20: WBC 13.6 H, RBC 3.16 L, Hgb 9.7 L, Hct 30.2 L, MCV 95.7, MCH 30.8, MCHC 32.2, RDW 14.4, Plt Count 177 D, MPV 8.2, Neut % (Auto) 87.2 H, Lymph % (Auto) 5.3 L, [place] % (Auto) 6.9, Eos % (Auto) 0.4, Baso % (Auto) 0.1, Neut # (Auto) 11.9 H, Lymph # (Auto) 0.7, [place] # (Auto) 0.9, Eos # (Auto) 0.1, Baso # (Auto) 0.0, Total Counted 100, Neutrophils % (Manual) 88 H, Lymphocytes % (Manual) 5 L, Monocytes % (Manual) 7, Platelet Estimate Normal, RBC Morphology Normal, Sodium 134 L, Potassium 4.6, Chloride 101, Carbon Dioxide 22, Anion Gap 15.6 H, BUN 33 H, Creatinine 1.80 H, Estimated Creat Clear 35, Estimated GFR 28 L, Est GFR ( Amer) 33 L, Glucose 180 H, Calcium 8.5, Total Bilirubin 0.2, AST 269 H D, ALT 320 H*, Alkaline Phosphatase 94, Total Protein 5.5 L, Albumin 2.8 L D, Globulin 2.7, Albumin/Globulin Ratio 1.0 L I & O for Labs for Last 24 Hours: Intake & Output 01/01/23 01/02/23 01/03/23 01/04/23 23:59 23:59 23:59 23:59 Intake Total 710 / 1210 970 / 970 Output Total 0 / 0 700 / 700 Balance 710 / 1210 270 / 270 Weight 173 lb 6.4 oz 173 lb 6.4 oz Constitutional: Present no acute distress Respiratory: Present rales (few in the right base) and diminished air movement Cardiac: Present Reg Rate and Rhythm GI: Present normal bowel sounds; Absent tenderness Extremities: Present normal inspection and full ROM Skin: Present intact; Absent erythema Neuro: Present Grossly Intact and moves all extremities Assessment and Plan *Assessment and plan (1) Weakness: Status: Acute Category: Medical Code(s): R53.1 - Weakness (2) Debility: Status: Acute Category: Medical Code(s): R53.81 - Other malaise (3) DIANELYS (acute kidney injury): St
--- NOTE | 2023-01-04 09:39 | XR_ITS ---
PROCEDURE INFORMATION: Exam: XR Chest Exam date and time: 01/04/2023 12:04 PM Age: 72 years old Clinical indication: Shortness of breath; Patient HX: Pneumonia TECHNIQUE: Imaging protocol: Radiologic exam of the chest. Views: 2 views. COMPARISON: CR XR CHEST PORTABLE 01/03/2023 2:36 AM FINDINGS: Lungs: Streaky opacities in right lower lobe favored to represent atelectasis. No evidence of pneumonia or interstitial edema. Pleural spaces: Unremarkable. No pleural effusion. No pneumothorax. Heart/Mediastinum: Unremarkable. No cardiomegaly. Bones/joints: Unremarkable. IMPRESSION: No evidence of pneumonia or interstitial edema.
[2023-01-04 11:21] LABS: POC Glucose,Bedside 112 (70-110)
--- NOTE | 2023-01-04 11:57 | PC.NURSE ---
i spoke with pts family regarding bringing in her home medication/inhalers
[2023-01-04 16:56] LABS: POC Glucose,Bedside 120 (70-110)
--- NOTE | 2023-01-04 17:44 | PC.NURSE ---
pts gait is very unsteady. she has increasing weakness to BLE and leans forward when attempting to ambulate with walker. Two staff are present during transfers and going to the bathroom because pt is not safe to be alone.
[2023-01-04 20:25] LABS: POC Glucose,Bedside 153 (70-110)
[2023-01-05] VITALS (9 sets, daily range): BP systolic 99–141; BP diastolic 51–67; PULSE 75–100; RESP 16–21; TEMP 36.6–37.4; O2SAT 92–99; BMI 32.7
--- NOTE | 2023-01-05 04:26 | PC.NURSE ---
Patient has slept well throughout shift. Patient has remained on 2L O2 with sats 93-99%. Patient has voiced no c/o of pain.
[2023-01-05 06:23] LABS: POC Glucose,Bedside 113 (70-110)
[2023-01-05 07:45] LABS: Chloride 104 mmol/L (98-107); Potassium 3.9 mmoL/L (3.5-5.1); Sodium 137 mmol/L (136-145)
[2023-01-05 07:48] LABS: Alanine Aminotransferase 237 U/L (12-78); Albumin Level 2.6 g/dl (3.5-5.0); Alkaline Phosphatase 95 U/L (38-126); Anion Gap 11.9 mEq/L (5-15); Aspartate Amino Transferase 143 U/L (14-36); Blood Urea Nitrogen 26 mg/dl (7-17); Calcium 8.2 mg/dl (8.4-10.2); Carbon Dioxide 25 mmol/L (22.0-30.0); Creatinine Clearance Estimated 39 mL/min (50-200); Estimated Glomerular Filt Rate 32 ml/min (>60); GFR (African American) 38 ML/MIN (>60); Globulin 2.7 g/dL (1.3-3.2); Glucose 105 mg/dl (74-100); Total Protein,Serum 5.3 g/dl (6.3-8.2)
[2023-01-05 07:55] LABS: Bilirubin,Total 0.1 mg/dl (0.2-1.3)
--- NOTE | 2023-01-05 08:05 | EXP.ACUTE.PN ---
Subjective *Date: 01/05/23 *Time: 08:50 Interval history: Patient states she is feeling better. She still has tremors which bother her and make it difficult for her to eat and drink. She did sleep some. She has a productive cough. She denies shortness of breath but continues to need her oxygen due to decrease in O2 sats when on room air. She has been out of bed into the chair and is walked to the bathroom and denies dizziness with this. Bowels moved last night and she is voiding QS. She denies chest pain, abdominal pain, and nausea. Laboratory data reveals normal electrolytes. Renal and liver function studies continue to improve. CBC is pending. Chest x-ray yesterday revealed no evidence of pneumonia or interstitial edema. Urine and sputum and blood cultures results are all pending. Medical Exam Vital signs and Labs for Last 24 Hours: Vital Signs Temp Pulse Pulse Resp BP Pulse Ox O2 Del Method 01/05/23 07:23 Room Air 01/05/23 06:15 75 01/05/23 06:15 79 01/05/23 06:15 97 Nasal Cannula 01/05/23 06:42 Nasal Cannula 01/05/23 03:43 98 F 78 16 141/55 H 99 01/05/23 05:00 Nasal Cannula 01/05/23 03:00 Nasal Cannula 01/05/23 01:00 Nasal Cannula 01/04/23 23:00 Nasal Cannula 01/04/23 23:49 67 01/04/23 23:49 63 01/04/23 21:00 Nasal Cannula 01/04/23 20:00 Nasal Cannula 01/04/23 20:00 98.6 F 86 16 141/96 H 93 L 01/04/23 17:52 63 01/04/23 17:52 63 01/04/23 17:52 91 L Nasal Cannula 01/04/23 17:00 Room Air 01/04/23 15:48 98.4 F 76 17 115/68 97 Nasal Cannula 01/04/23 15:00 Room Air 01/04/23 13:00 Nasal Cannula 01/04/23 12:00 74 01/04/23 12:00 72 01/04/23 11:00 Room Air 01/04/23 09:00 Room Air O2 Flow Rate 01/05/23 07:23 01/05/23 06:15 01/05/23 06:15 01/05/23 06:15 2 01/05/23 06:42 2 01/05/23 03:43 01/05/23 05:00 2 01/05/23 03:00 2 01/05/23 01:00 2 01/04/23 23:00 2 01/04/23 23:49 01/04/23 23:49 01/04/23 21:00 2 01/04/23 20:00 2 01/04/23 20:00 01/04/23 17:52 01/04/23 17:52 01/04/23 17:52 2 01/04/23 17:00 01/04/23 15:48 2 01/04/23 15:00 01/04/23 13:00 01/04/23 12:00 01/04/23 12:00 01/04/23 11:00 01/04/23 09:00 Intake and Output 01/04/23 01/05/23 01/05/23 19:59 03:59 11:59 Intake Total 480 / 480 Output Total 0 / 0 1900 / 1900 Balance 480 / 480 -1900 / -1420 Intake: Intake, Oral Amount 480 / 480 Output: Output, Urine Amount 0 / 0 1900 / 1900 Other: Number of Unmeasured Voids 1 1 Number of Bowel Movements 1 Weight 173 lb 6.4 oz Patient Weight 01/05/23 11:59 Weight 173 lb 6.4 oz Laboratory Results - last 24 hr 01/03/23 04:16: Hepatitis A IgM Ab Negative, Hep Bs Antigen Negative, Hep B Core IgM Ab Negative, Hepatitis C Antibody Non reactive 01/04/23 08:20: WBC 13.6 H, RBC 3.16 L, Hgb 9.7 L, Hct 30.2 L, MCV 95.7, MCH 30.8, MCHC 32.2, RDW 14.4, Plt Count 177 D, MPV 8.2, Neut % (Auto) 87.2 H, Lymph % (Auto) 5.3 L, [place] % (Auto) 6.9, Eos % (Auto) 0.4, Baso % (Auto) 0.1, Neut # (Auto) 11.9 H, Lymph # (Auto) 0.7, [place] # (Auto) 0.9, Eos # (Auto) 0.1, Baso # (Auto) 0.0, Total Counted 100, Neutrophils % (Manual) 88 H, Lymphocytes % (Manual) 5 L, Monocytes % (Manual) 7, Platelet Estimate Normal, RBC Morphology Normal, Sodium 134 L, Potassium 4.6, Chloride 101, Carbon Dioxide 22, Anion Gap 15.6 H, BUN 33 H, Creatinine 1.80 H, Estimated Creat Clear 35, Estimated GFR 28 L, Est GFR ( Amer) 33 L, Glucose 180 H, Calcium 8.5, Total Bilirubin 0.2, AST 269 H D, ALT 320 H*, Alkaline Phosphatase 94, Total Protein 5.5 L, Albumin 2.8 L D, Globulin 2.7, Albumin/Globulin Ratio 1.0 L 01/04/23 11:12: POC Glucose 112 H 01/04/23 16:49: POC Glucose 120 H 01/04/23 20:01: POC Glucose 153 H 01/05/23 06:15: POC Glucose 113 H 01/05/23 07:07: Sodium 137, Potassium 3.9, Chlo
[2023-01-05 08:41] LABS: Eosinophils # 0.1 K/mm3 (0.0-0.4); Eosinophils % 0.7 % (0.1-12.0); Hematocrit 27.1 % (37.0-47.0); Hemoglobin 8.8 g/dL (12.2-16.2); Lymphocytes # 0.8 K/mm3 (0.7-4.5); Lymphocytes % 8.1 % (10-50); Mean Corpuscular HGB Conc 32.6 g/dL (31.8-35.4); Mean Corpuscular Hemoglobin 29.8 pg (27.0-31.2); Mean Corpuscular Volume 91.4 fl (81-99); Monocytes # 0.8 K/mm3 (0.1-1.0); Monocytes % 7.9 % (1.7-9.3); Neutrophils % 83.3 % (37.0-80.0); Platelet Count 213 K/mm3 (142-424); Red Blood Count 2.96 M/mm3 (4.20-5.40); Red Cell Distribution Width 14.5 % (11.5-17.5); White Blood Count 9.6 K/mm3 (4.8-10.8)
[2023-01-05 11:05] LABS: POC Glucose,Bedside 166 (70-110)
[2023-01-05 16:18] LABS: POC Glucose,Bedside 136 (70-110)
[2023-01-06] VITALS (8 sets, daily range): BP systolic 106–149; BP diastolic 44–84; PULSE 52–92; RESP 18–22; TEMP 36.6–37.1; O2SAT 87–100; BMI 33.4
--- NOTE | 2023-01-06 04:04 | PC.NURSE ---
Pt is alert and oriented x4, currently on RA sating @ 94%, Pt has no complaints of pain and has rested well for the most part of the shift. Pt remains on a diabetic diet and required coverage of 2 units @2100 due to a glucose level of 169. Pt has mild to moderate tremors when awake. Pt denies all other needs at this time.
[2023-01-06 04:42] LABS: POC Glucose,Bedside 169 (70-110)
[2023-01-06 05:30] LABS: POC Glucose,Bedside 134 (70-110)
[2023-01-06 06:11] LABS: Basophils % 0.1 % (0.1-2.0); Eosinophils # 0.2 K/mm3 (0.0-0.4); Eosinophils % 1.7 % (0.1-12.0); Hematocrit 29.2 % (37.0-47.0); Lymphocytes # 0.8 K/mm3 (0.7-4.5); Lymphocytes % 7.9 % (10-50); Mean Corpuscular HGB Conc 33.2 g/dL (31.8-35.4); Mean Corpuscular Hemoglobin 30.4 pg (27.0-31.2); Mean Corpuscular Volume 91.6 fl (81-99); Mean Platelet Volume 8.3 fl (7.4-10.4); Monocytes # 0.8 K/mm3 (0.1-1.0); Monocytes % 8.2 % (1.7-9.3); Neutrophils # 8.4 K/mm3 (1.8-7.8); Neutrophils % 82.1 % (37.0-80.0); Platelet Count 236 K/mm3 (142-424); Red Blood Count 3.18 M/mm3 (4.20-5.40); Red Cell Distribution Width 14.3 % (11.5-17.5); White Blood Count 10.3 K/mm3 (4.8-10.8)
[2023-01-06 06:14] LABS: Hemoglobin 9.7 g/dL (12.2-16.2)
[2023-01-06 06:17] LABS: Chloride 101 mmol/L (98-107); Sodium 137 mmol/L (136-145)
[2023-01-06 06:19] LABS: Blood Urea Nitrogen 23 mg/dl (7-17); Creatinine Clearance Estimated 38 mL/min (50-200); Estimated Glomerular Filt Rate 30 ml/min (>60); GFR (African American) 36 ML/MIN (>60)
[2023-01-06 06:20] LABS: Alanine Aminotransferase 199 U/L (12-78); Albumin Level 2.9 g/dl (3.5-5.0); Alkaline Phosphatase 97 U/L (38-126); Aspartate Amino Transferase 88 U/L (14-36); Bilirubin,Total 0.1 mg/dl (0.2-1.3); Calcium 8.5 mg/dl (8.4-10.2); Carbon Dioxide 28 mmol/L (22.0-30.0); Globulin 2.9 g/dL (1.3-3.2); Glucose 139 mg/dl (74-100); Total Protein,Serum 5.8 g/dl (6.3-8.2)
--- NOTE | 2023-01-06 08:06 | EXP.ACUTE.PN ---
Subjective *Date: 01/06/23 *Time: 08:43 Interval history: Patient states that she is doing well. She did sleep some last night. She is hungry and ready for breakfast. She denies shortness of breath. She continues with a congested cough worse after DuoNebs. O2 sats continued to drop when on room air. She is voiding QS. She ambulated in the room without difficulty yesterday. Laboratory data this morning show white blood cell count of 10,300; hemoglobin is 9.7 hematocrit 29.2. BUN is 23 with a creatinine of 1.7. Liver function studies continue to improve. Urine culture revealed mixed urogenital eliecer with colony count 25-50,000. Sputum and blood cultures are pending. Medical Exam Vital signs and Labs for Last 24 Hours: Vital Signs Temp Pulse Pulse Resp BP Pulse Ox O2 Del Method 01/06/23 07:56 96 Nasal Cannula 01/06/23 07:52 Nasal Cannula 01/06/23 07:45 98.8 F 92 H 18 149/75 H 94 L Nasal Cannula 01/06/23 06:34 Nasal Cannula 01/06/23 06:09 87 L Room Air 01/06/23 06:09 89 01/06/23 06:09 88 01/06/23 04:38 Room Air 01/06/23 04:00 98.6 F 52 L 18 120/84 92 L Room Air 01/06/23 03:00 Room Air 01/06/23 01:00 Room Air 01/06/23 00:00 94 L Room Air 01/06/23 00:33 88 01/06/23 00:33 87 01/05/23 23:49 99.1 F 89 18 99/62 L 94 L Room Air 01/05/23 22:33 Room Air 01/05/23 21:00 Room Air 01/05/23 20:00 94 L Room Air 01/05/23 20:00 98.5 F 100 H 18 115/67 94 L Room Air 01/05/23 18:44 Room Air 01/05/23 18:03 94 H 01/05/23 18:03 94 H 01/05/23 18:03 92 L Room Air 01/05/23 16:39 Room Air 01/05/23 15:35 99.4 F 87 21 110/56 L 94 L Room Air 01/05/23 15:22 Room Air 01/05/23 14:51 Room Air 01/05/23 13:00 Room Air 01/05/23 12:00 99 F 92 H 20 115/55 L 97 Room Air 01/05/23 11:15 85 01/05/23 11:15 87 01/05/23 10:48 Room Air 01/05/23 09:00 Room Air O2 Flow Rate 01/06/23 07:56 2 01/06/23 07:52 2 01/06/23 07:45 01/06/23 06:34 2 01/06/23 06:09 01/06/23 06:09 01/06/23 06:09 01/06/23 04:38 01/06/23 04:00 01/06/23 03:00 01/06/23 01:00 01/06/23 00:00 01/06/23 00:33 01/06/23 00:33 01/05/23 23:49 01/05/23 22:33 01/05/23 21:00 01/05/23 20:00 01/05/23 20:00 01/05/23 18:44 01/05/23 18:03 01/05/23 18:03 01/05/23 18:03 01/05/23 16:39 01/05/23 15:35 01/05/23 15:22 01/05/23 14:51 01/05/23 13:00 01/05/23 12:00 01/05/23 11:15 01/05/23 11:15 01/05/23 10:48 01/05/23 09:00 Intake and Output 01/05/23 01/06/23 01/06/23 19:59 03:59 11:59 Intake Total 780 / 780 360 / 1140 Output Total 1000 / 1000 550 / 1550 250 / 1800 Balance -220 / -220 -190 / -410 -250 / -660 Intake: Intake, Oral Amount 780 / 780 360 / 1140 Output: Output, Urine Amount 1000 / 1000 550 / 1550 250 / 1800 Other: Number of Voids 0 Number of Unmeasured Voids 0 1 Number of Bowel Movements 0 Weight 173 lb 4.533 oz 177 lb Patient Weight 01/06/23 11:59 Weight 177 lb Laboratory Results - last 24 hr 01/05/23 07:07: WBC 9.6 D, RBC 2.96 L, Hgb 8.8 L, Hct 27.1 L, MCV 91.4, MCH 29.8, MCHC 32.6, RDW 14.5, Plt Count 213, MPV 9.0, Neut % (Auto) 83.3 H, Lymph % (Auto) 8.1 L, [place] % (Auto) 7.9, Eos % (Auto) 0.7, Baso % (Auto) 0.0 L, Neut # (Auto) 8.0 H, Lymph # (Auto) 0.8, [place] # (Auto) 0.8, Eos # (Auto) 0.1, Baso # (Auto) 0.0 01/05/23 10:55: POC Glucose 166 H 01/05/23 16:11: POC Glucose 136 H 01/05/23 20:40: POC Glucose 169 H 01/06/23 05:15: POC Glucose 134 H 01/06/23 06:00: WBC 10.3, RBC 3.18 L, Hgb 9.7 L D, Hct 29.2 L, MCV 91.6, MCH 30.4, MCHC 33.2, RDW 14.3, Plt Count 236, MPV 8.3, Neut % (Auto) 82.1 H, Lymph % (Auto) 7.9 L, [place] % (Auto) 8.2, Eos % (Auto) 1.7, Baso % (Auto) 0.1, Neut # (Auto) 8.4 H, Lymph # (Auto) 0.8, [place] # (Auto) 0.8, Eos # (Auto) 0.2, Baso
--- NOTE | 2023-01-06 09:15 | HMH.PHAINT1 ---
Pharmacy Intervention Comments: DISCHARGE MEDICATION COUNSELING PROVIDED. DISCUSSED STARTING CEFDINIR (ANTIBIOTIC, TWICE DAILY ,TAKE WITH FOOD, N/V/D POSSIBLE). PATIENT VERBALIZED NO QUESTIONS AT THIS TIME.
--- NOTE | 2023-01-06 09:33 | PC.NURSE ---
Called daughter Donavon twice and couldn't reach her at her work or cell number.
--- NOTE | 2023-01-06 09:59 | SW/DCPLANNER ---
Addendum entered by Evelyn Guzman 01/06/23 12:36: Libra w/ [facility] stated that services will begin this week for this patient. Original Note: CM spoke w/ patient and family regarding plans once medically stable for discharge. Patient is not interested in placement at this time but is agreeable to discharge home w/ home health services. Patient prefers [facility] for home health services. Patient information/order will be faxed to [facility] once medically stable for discharge. The plan for this patient is to discharge home this afternoon.
[2023-01-06 10:51] LABS: POC Glucose,Bedside 147 (70-110)
--- NOTE | 2023-01-08 14:12 | CARE MANAGER ---
Contacted patient related to hospital discharge. She states she is doing well and picked up medication. Denies questions or concerns. Home health came yesterday. ISAC Del Cid
--- NOTE | 2023-01-09 13:07 | EXP.DC.SUM ---
General Admission date:: 01/03/23 Discharge date: 01/06/23 HPI HPI HPI: Mrs. Silvestre is a 72 year old patient of [facility] who sees Dr. Moore for her primary care, who presented to [facility] ER last night with a 2 day history of chills and tremors. She states she did not take her temperature. She felt a little weak but had no other complaints. She has a chronic cough due to COPD but was basically at baseline. Hospital Course Hospital Course Hospital Course: Patient was admitted for further evaluation and treatment. Antibiotics were started empirically for pneumonia. Her chest x-ray did not show an obvious consolidation, so it was felt it could be a COPD exacerbation versus community-acquired pneumonia. She was started on Lovenox and Pepcid as well as sliding scale insulin. She was started on a full liquid diet. A U/A was ordered and did show that she likely had a urinary tract infection. Her labs improved with antibiotics. Neb treatments were scheduled, her diet was advanced, and a repeat chest x-ray was ordered. It revealed no evidence of pneumonia or interstitial edema. She continued to need oxygen due to decrease in oxygen sats when on room air. She was able to get out of bed and walk to the bathroom. Her renal and liver functions continue to improve. By 01/06/2023, she was feeling better. Her urine culture showed mixed eliecer. Her blood and sputum cultures are still pending. She was stable to be discharged home with antibiotics and nebs. She declined nursing home placement but did accept home health. Exam Data for Last 24 hours Vital signs and Labs for Last 24 Hours: Temp Pulse Resp BP Pulse Ox O2 Del Method O2 Flow Rate 97.9 F 77 22 106/44 L 100 Room Air 97 01/06/23 12:00 01/06/23 13:58 01/06/23 12:00 01/06/23 12:00 01/06/23 12:00 01/06/23 12:00 01/06/23 10:30 I & O for Last 24 hours: Intake & Output 01/07/23 01/08/23 01/09/23 01/10/23 11:59 11:59 11:59 11:59 Intake Total 270 / 270 Balance 270 / 270 Narrative: Constitutional Constitutional: no acute distress *Routine HEENT Exam Head: Present normocephalic Eye: Present EOMI and PERRL ENT: Present mucous membranes moist *Routine Neck Exam Neck: Present supple; Absent lymphadenopathy *Routine Respiratory Exam Respiratory: Present diminished air movement (in the bases) *Routine Cardiovascular Exam Cardiovascular: Present RRR *Routine Abdominal Exam Abdominal: Present soft and normoactive bowel sounds; Absent tenderness *Routine Rectal Exam Rectal:: deferred *Routine Genitalia Exam Genitalia:: deferred *Routine Extremities Exam Extremities: Present edema (trace bilateral leg); Absent cyanosis or clubbing *Routine Skin Exam Skin: Present warm; Absent rash *Routine Neurological Exam Neurological: Present alert and oriented X3 DS: Diagnosis Discharge Diagnosis (1) Weakness: Status: Acute Code(s): R53.1 - Weakness (2) Debility: Status: Acute Code(s): R53.81 - Other malaise (3) DIANELYS (acute kidney injury): Status: Acute Code(s): N17.9 - Acute kidney failure, unspecified (4) Transaminitis: Status: Acute Code(s): R74.01 - Elevation of levels of liver transaminase levels (5) Asthma-chronic obstructive pulmonary disease overlap syndrome: Status: Acute Code(s): J44.9 - Chronic obstructive pulmonary disease, unspecified (6) COPD mixed type: Status: Acute Code(s): J44.9 - Chronic obstructive pulmonary disease, unspecified (7) Hypertension: Status: Chronic Code(s): I10 - Essential (primary) hypertension Qualifiers: Hypertension type: primary hypertension Qualified Code(s): I10 - Essential (primary) hypertension (8) Obesity (BMI 30.0-34.9): Status: Acute Code(s): E66.9 - Obesity, unspecified (9) Hyperlipidemia: Status: Chronic Code(s): E78.5 - Hyperlipidemia, unspecified Adolfo
== END 2023-01-06 15:31 | disposition home health service (06) | DRG 194 ==
LOC: ER 04:20 → 2ND 04:28
PROVIDERS: Admitting Provider Family Medicine; Emergency Provider Emergency Medicine; PCP Family Medicine; Visit Provider Family Medicine
DX: J18.9 Pneumonia, unspecified organism (principal); J44.1 Chronic obstructive pulmonary disease with (acute) exacerbation; N17.9 Acute kidney failure, unspecified; R74.01 Elevation of levels of liver transaminase levels; E66.9 Obesity, unspecified; E78.2 Mixed hyperlipidemia; I25.118 Atherosclerotic heart disease of native coronary artery with other forms of angina pectoris; E11.40 Type 2 diabetes mellitus with diabetic neuropathy, unspecified; R60.0 Localized edema; N18.31 Chronic kidney disease, stage 3a; I12.9 Hypertensive chronic kidney disease with stage 1 through stage 4 chronic kidney disease, or unspecified chronic kidney disease; E11.22 Type 2 diabetes mellitus with diabetic chronic kidney disease; Z68.33 Body mass index [BMI] 33.0-33.9, adult; Z79.84 Long term (current) use of oral hypoglycemic drugs; I25.2 Old myocardial infarction; Z95.5 Presence of coronary angioplasty implant and graft; M19.90 Unspecified osteoarthritis, unspecified site; Z87.891 Personal history of nicotine dependence
CPT/HCPCS: 36415; 71045; 71046; 80053; 80074; 80329; 81001; 82962; 83605; 83690; 84145; 85007; 85025; 85610; 87040; 87070; 87086; 87205; 87636; 94640; 97110; 97116; 97162; 99285; J0131; J0456; J0696

== ENCOUNTER 2023-02-06 20:03 | Emergency (ER) | payer MEDICARE, MEDICAID, SELFPAY ==
[2023-02-06 20:04] VITALS: BP 136/52; PULSE 65; RESP 16; TEMP 37.1; O2SAT 95; BMI 29.6
--- NOTE | 2023-02-06 20:23 | HMH.EDGENADL ---
Discharge Plan Disposition Patient Disposition: Home, Self-Care Prescriptions Prescriptions: No Action hydroxyzine HCl 25 mg tablet 25 mg PO BID 90 Days Qty: 180 Patient Comments: TAKE 1 TABLET BY MOUTH TWO TIMES A DAY montelukast [Singulair] 10 mg tablet 10 mg PO DAILY acetaminophen 500 mg tablet 500 mg PO QIDP PRN (Reason: Mild Pain (Scale Score 1-4)) sennosides [senna] 8.6 mg tablet 8.6 mg PO DAILY clopidogrel 75 mg tablet 75 mg PO DAILY pantoprazole 40 mg tablet,delayed release (DR/EC) 40 mg PO DAILY ferrous sulfate [Feosol] 325 mg (65 mg iron) tablet 325 mg PO BID amiodarone 200 mg tablet 200 mg PO DAILY Dulera 200-5 mcg/actuation HFA aerosol inhaler 2 puff inhalation BIDRT primidone 50 mg tablet 100 mg PO HS bupropion HCl (smoking deter) 150 MG tablet extended release 12 hr 150 mg PO BID nitroglycerin 0.4 MG tablet, sublingual 0.4 mg SL Q5MINP PRN (Reason: Chest Pain) metformin 500 mg tablet 500 mg PO DAILY rosuvastatin 40 mg tablet 40 mg PO DAILY Jardiance 10 mg tablet 10 mg PO DAILY gabapentin 100 MG capsule 100 mg PO BID Spiriva Respimat 1.25 mcg/actuation mist 2 puff IH DAILY bisoprolol fumarate 10 mg tablet 10 mg PO BID Januvia 100 mg tablet 100 mg PO DAILYDM diltiazem HCl [DILT-XR] 180 mg capsule,ext.rel 24h degradable 180 mg PO DAILY levothyroxine 75 mcg tablet 75 mcg PO DAILYDM albuterol sulfate 90 mcg/actuation HFA aerosol inhaler 2 puff INHALATION QIDP PRN (Reason: Shortness Of Breath Or Wheezing) fluticasone propionate 50 mcg/actuation spray,suspension 1 spray INTRANASAL DAILY Referrals Follow up/Referrals: Jack Moore MD [Primary Care Provider] - See instructions Activity Restrictions/Add. Instructions Additional Instructions/Restrictions: Call your family doctor to establish care for this visit to the emergency department and schedule follow-up within 48 hours to ensure improvement. If you have any worsening of your condition or any other concerning signs or symptoms, return to the emergency department or your primary care doctor for further evaluation. Clinical Impressions Clinical Impression: Skin tear of right lower leg without complication Qualifiers: Encounter type: initial encounter Qualified Code(s): S81.811A - Laceration without foreign body, right lower leg, initial encounter Instructions Patient Instructions: DI for Laceration Repair Discharge ED Provider: Royer Hayden General Adult HPI General Chief complaint: Wound/Laceration Stated complaint: AO11@1630 RT leg lac Time Seen by Provider: 02/06/23 20:12 Mode of Arrival: Wheelchair Source of Information: Patient and Relative Limitations: Physical Limitations Description of Symptoms (Recalled from ER Triage Doc. by RN): Pt reports hitting right lower leg on car door at 1630, unable to stop bleeding, pressure dressing was applied by family, pt reports being on blood thinners History of Present Illness HPI narrative: 72-year-old female with history of CAD, CHF, A-fib on Eliquis, diabetes with skin tear on her right leg. Patient was closing a car door just a couple hours prior to arrival and sustained skin tear on her right leg. Able to bear weight, but because she is on anticoagulation, continues to ooze. Came to the emergency department for further evaluation. Related Data Home Medications Medication Instructions Recorded Confirmed hydroxyzine HCl 25 mg tablet 25 mg PO BID Anxiety 90 days #180 05/13/18 01/28/23 tabs montelukast 10 mg tablet 10 mg PO DAILY Asthma 11/09/19 01/28/23 (Singulair) bupropion HCl (smoking deter) 150 150 mg PO BID Depression 07/11/21 01/28/23 mg tablet,12 hr sustained-release(smoking deterrent) nitroglycerin 0.4 mg sublingual 0.4 mg sublingual Q5MINP PRN Chest 07/11/21 01/28/23 tablet Pain empagliflozin 10 m
[2023-02-06 21:31] VITALS: BP 114/82; PULSE 77; RESP 15; TEMP 36.7; O2SAT 98
== END 2023-02-06 21:34 | disposition home or self-care (01) ==
PROVIDERS: Emergency Provider Emergency Medicine; PCP Family Medicine
DX: S81.801A Unspecified open wound, right lower leg, initial encounter (principal); J44.9 Chronic obstructive pulmonary disease, unspecified; I25.10 Atherosclerotic heart disease of native coronary artery without angina pectoris; I11.9 Hypertensive heart disease without heart failure; E11.40 Type 2 diabetes mellitus with diabetic neuropathy, unspecified; E78.5 Hyperlipidemia, unspecified; I48.0 Paroxysmal atrial fibrillation; N18.31 Chronic kidney disease, stage 3a; Z79.01 Long term (current) use of anticoagulants; Z79.84 Long term (current) use of oral hypoglycemic drugs; Z87.891 Personal history of nicotine dependence; W22.8XXA Striking against or struck by other objects, initial encounter; Z23 Encounter for immunization
CPT/HCPCS: 90715; 96372; 99283

== ENCOUNTER 2023-04-04 23:22 | Observation (INO) | payer MEDICARE, MEDICAID, SELFPAY ==
[2023-04-04 23:34] VITALS: BP 107/52; PULSE 71; RESP 18; TEMP 36.7; O2SAT 95; BMI 31.1
[2023-04-04 23:53] LABS: Microscopic, Urine URINE MICROSCOPIC (MICROSCOPIC)
[2023-04-04 23:55] LABS: Appearance,Urine CLEAR (Clear); Bilirubin,Urine Negative (Negative); Blood, Urine 1+ (Negative); Color,Urine YELLOW (Yellow); Glucose,Urine (UA) 3+ (Negative); Ketones,Urine Negative (Negative); Leukocyte Esterase,Urine 1+ (Negative); Nitrate,Urine Negative (Negative); Protein,Urine TRACE (Negative); Urobilinogen,Urine 0.2 EU/dl (0.2)
[2023-04-05] VITALS (10 sets, daily range): BP systolic 86–140; BP diastolic 38–80; PULSE 70–78; RESP 18; TEMP 36.7–37.7; O2SAT 91–96; BMI 30.8
[2023-04-05 00:08] LABS: Bacteria,Urine 1+ /lpf; Squamous Epithelial Cell,Urine Occasional #/hpf (0-5)
--- NOTE | 2023-04-05 00:44 | ECG_ITS ---
APPROVED REPORT Exam: Resting ECG HR:70 bpm ECG Measurements Heart Rate 70 AXES ND 180 P 52 QRSd 107 QRS 54 QT 418 T 79 QTc 438 Conclusion SINUS RHYTHM POSSIBLE LEFT ATRIAL ENLARGEMENT [-0.1mV P-WAVE IN V1/V2] POSSIBLE INFERIOR MYOCARDIAL INFARCTION , PROBABLY OLD [30 ms Q WAVE IN II/aVF] MODERATE T-WAVE ABNORMALITY, CONSIDER ANTERIOR ISCHEMIA [-0.1+ mV T-WAVE IN V3/V4] ABNORMAL ECG UNCONFIRMED REPORT Electronically signed by : Barry García MD 04/05/2023 15:10:46
--- NOTE | 2023-04-05 01:40 | HMH.EDGENADL ---
Discharge Plan Disposition Patient Disposition: Admitted Condition: Good Prescriptions Prescriptions: No Action hydroxyzine HCl 25 mg tablet 25 mg PO BID 90 Days Qty: 180 Patient Comments: TAKE 1 TABLET BY MOUTH TWO TIMES A DAY montelukast [Singulair] 10 mg tablet 10 mg PO DAILY acetaminophen 500 mg tablet 500 mg PO QIDP PRN (Reason: Mild Pain (Scale Score 1-4)) sennosides [senna] 8.6 mg tablet 8.6 mg PO DAILY clopidogrel 75 mg tablet 75 mg PO DAILY pantoprazole 40 mg tablet,delayed release (DR/EC) 40 mg PO DAILY ferrous sulfate [Feosol] 325 mg (65 mg iron) tablet 325 mg PO BID amiodarone 200 mg tablet 200 mg PO DAILY Dulera 200-5 mcg/actuation HFA aerosol inhaler 2 puff inhalation BIDRT primidone 50 mg tablet 100 mg PO HS bupropion HCl (smoking deter) 150 MG tablet extended release 12 hr 150 mg PO BID nitroglycerin 0.4 MG tablet, sublingual 0.4 mg SL Q5MINP PRN (Reason: Chest Pain) clopidogrel 75 mg tablet 75 mg PO DAILY metformin 500 mg tablet 500 mg PO DAILY rosuvastatin 40 mg tablet 40 mg PO DAILY Jardiance 10 mg tablet 10 mg PO DAILY gabapentin 100 MG capsule 100 mg PO BID Spiriva Respimat 1.25 mcg/actuation mist 2 puff IH DAILY bisoprolol fumarate 10 mg tablet 10 mg PO BID Januvia 100 mg tablet 100 mg PO DAILYDM diltiazem HCl [DILT-XR] 180 mg capsule,ext.rel 24h degradable 180 mg PO DAILY levothyroxine 75 mcg tablet 75 mcg PO DAILYDM albuterol sulfate 90 mcg/actuation HFA aerosol inhaler 2 puff INHALATION QIDP PRN (Reason: Shortness Of Breath Or Wheezing) fluticasone propionate 50 mcg/actuation spray,suspension 1 spray INTRANASAL DAILY Referrals Follow up/Referrals: Jack Moore MD [Primary Care Provider] - See instructions Clinical Impressions Clinical Impression: Acute UTI, Tremor, General weakness, Transaminitis Instructions Patient Instructions: DI for Altered Mental Status Discharge ED Provider: Leia Quintana General Adult HPI General Chief complaint: Altered Mental Status Stated complaint: weakness Time Seen by Provider: 04/04/23 23:28 Mode of Arrival: EMS Source of Information: Patient Limitations: No Limitations Description of Symptoms (Recalled from ER Triage Doc. by RN): 72 year old female that says she has been having these uncontrollable tremors for the last few weeks , and tonight her family says she has increased confusion. History of Present Illness HPI narrative: This patient is a 72-year-old female with extensive smoking history and COPD on home oxygen, tremors, hypertension, hyperlipidemia, CAD, RANDY, type 2 diabetes, obesity, and chronic debility presenting to the emergency department for worsening of her tremor. She states that she is awaiting neurology follow-up, but the tremor has been worse over the last little bit. Family said that she also seems to be more confused. Patient is currently alert and oriented x 4 and denies any other concerns, such as fevers, chills, chest pain, shortness of breath, abdominal pain, nausea, vomiting, changes in bowel movements, urinary symptoms, or other concerns. No new focal neurologic deficits. On medical review, she has been seen for this tremor in the past and was found to have an acute kidney injury. Related Data Home Medications Medication Instructions Recorded Confirmed hydroxyzine HCl 25 mg tablet 25 mg PO BID Anxiety 90 days #180 05/13/18 04/04/23 tabs montelukast 10 mg tablet 10 mg PO DAILY Asthma 11/09/19 04/04/23 (Singulair) bupropion HCl (smoking deter) 150 150 mg PO BID Depression 07/11/21 04/04/23 mg tablet,12 hr sustained-release(smoking deterrent) nitroglycerin 0.4 mg sublingual 0.4 mg sublingual Q5MINP PRN Chest 07/11/21 04/04/23 tablet Pain empagliflozin 10 mg tablet 10 mg PO DAILY CAD 02/16/22 04/04/23 (Jardiance) metformin 500 mg tablet 500 mg PO DAILY Diabetes 02/16/22 04/04/23 rosuvastatin 40 mg tablet 40 mg PO DAILY High cholesterol 02/16/22 04/04/23 bisoprolol fumarate 10 mg tablet 10 mg PO BID Hypertension 02/17/22 04/04/23 gabapentin 100 mg capsule 100 mg PO BID Pain 02/17/22 04/04/23 sitagliptin phosphate 100 mg 100 mg PO DAILYDM Diabetes 02/17/22 04/04/23 tablet (Januvia) tiotropium bromide 1.25 2 puff inhalation DAILY Copd 02/17/22 04/04/23 mcg/actuation mist for inhalation (Spiriva Respimat) acetaminophen 500 mg tablet 500 mg PO QIDP PRN Mild Pain 05/15/22 04/04/23 (Scale Score 1-4) amiodarone 200 mg tablet 200 mg PO DAILY Heart Rhythm 05/15/22 04/04/23 clopidogrel 75 mg tablet 75 mg PO DAILY Blood Thinner 05/15/22 04/04/23 ferrous sulfate 325 mg (65 mg 325 mg PO BID Supplement 05/15/22 04/04/23 iron) tablet (Feosol) pantoprazole 40 mg tablet,delayed 40 mg PO DAILY Acid Reflux 05/15/22 04/04/23 release sennosides 8.6 mg tablet (senna) 8.6 mg PO DAILY Constipation 05/15/22 04/04/23 mometasone-formoterol HFA 200 2 puff inhalation BIDRT Copd 06/02/22 04/04/23 mcg-5 mcg/actuation aerosol inhaler (Dulera) primidone 50 mg tablet 100 mg PO HS Tremor(S) 11/13/22 04/04/23 albuterol sulfate 90 mcg/actuation 2 puff inhalation QIDP PRN 01/03/23 04/04/23 aerosol inhaler Shortness Of Breath Or Wheezing diltiazem HCl 180 mg 180 mg PO DAILY High Blood Pressure 01/03/23 04/04/23 capsule,extended release 24 hr, controlled (DILT-XR) fluticasone propionate 50 1 spray intranasal DAILY Allergy 01/03/23 04/04/23 mcg/actuation nasal Symptoms spray,suspension levothyroxine 75 mcg tablet 75 mcg PO DAILYDM THYROID 01/03/23 04/04/23 clopidogrel 75 mg tablet 75 mg PO DAILY 04/04/23 04/04/23 Allergies Allergy/AdvReac Type Severity Reaction Status Date / Time alendronate sodium Allergy Intermediate Dizziness Verified 01/28/23 13:56 [From Fosamax] atorvastatin [From Lipitor] Allergy Intermediate Weakness Verified 01/28/23 13:56 isosorbide Allergy Verified 01/28/23 13:56 tuberculin,PPD,multi-puncture AdvReac Mild POSITIVE Verified 01/28/23 13:56 REACTOR PFSH PFS Disclaimer: The information contained in this section may have been updated after the patient was seen, as this information can be updated by other users. Medical History Acute respiratory failure with hypoxia Anemia Arthritis Asthma Asthma-chronic obstructive pulmonary disease overlap syndrome Atrial fibrillation with rapid ventricular response Bilateral lower extremity edema COPD (chronic obstructive pulmonary disease) COPD mixed type Coronary artery disease Diabetes mellitus, type 2 Diabetic foot Encounter for screening for malignant neoplasm of lung in current smoker with 30 pack year history or greater Exposure to TB Gastroenteritis GI bleed Hilar lymphadenopathy Hyperlipidemia Hypertension Ileus, unspecified Keratosis Kidney disease Mediastinal lymphadenopathy Multifocal atrial tachycardia Multiple lung nodules on CT Non-STEMI (non-ST elevated myocardial infarction) Obesity (BMI 30.0-34.9) Onychodystrophy Onychogryphosis PAF (paroxysmal atrial fibrillation) Pincer nail deformity Pneumonia Pneumonia Pneumonia due to COVID-19 virus Pre-ulcerative calluses Rheumatic fever/heart disease Right lower lobe pneumonia Sepsis Sepsis SIRS (systemic inflammatory response syndrome) Smoking greater than 30 pack years Stage 3a chronic kidney disease (CKD) Tobacco use Type 2 diabetes mellitus with diabetic neuropathy, without long-term current use of insulin Surgical History History of cholecystectomy History of coronary artery stent placement History of hip surgery Hx of removal of ovary Family History Other Coronary artery disease Diabetes Hypertension Social History Smoking Status: Never smoker years smoked: 50 smoking status stop date: 2 years ago second hand exposure: Yes alcohol intake: never substance use type: denies use current occupational status: retired Travel in the last 8 weeks: None household members: none housing: house current occupational exposures/hazards: No caffeine: Yes ROS Obtained: Yes All systems reviewed & no additional complaints except as documented Physical Exam General General appearance: alert, in no apparent distress and obese Comment: Baseline resting tremor Head Head exam: atraumatic and normocephalic Eye Eye exam: Present normal appearance, PERRL and EOMI ENT ENT exam: Present normal exam, normal oropharynx, mucous membranes moist and normal external ear exam Neck Neck exam: Present normal inspection, full ROM and trachea midline; Absent tenderness Chest Chest inspection: Present normal inspection and symmetric chest wall rise; Absent tenderness Respiratory Respiratory exam: Present normal lung sounds bilaterally; Absent respiratory distress, wheezes, stridor or accessory muscle use Cardiovascular Cardiovascular exam: Present regular rate and normal rhythm Abdominal Exam Abdominal exam: Present soft; Absent distention, tenderness or guarding Extremities Exam Extremities exam: Present normal inspection, full ROM and normal capillary refill; Absent tenderness or edema Back Exam Back exam: Present normal inspection and full ROM; Absent tenderness Neurological Exam Neurological exam: Present alert, oriented X3, CN II-XII intact and normal gait; Absent motor sensory deficit Psychiatric Psychiatric exam: Present normal affect and normal mood Skin Skin exam: Present warm and dry Medical Decision Making Medical Records Medical records reviewed: Yes I reviewed the patient's medical records. [place] Inquiry Pt receiving controlled substance: No Vital Signs: 04/04/23 23:34 04/05/23 01:01 04/05/23 01:21 Temperature 98.0 F Temperature Source Oral Pulse Rate 72 72 Pulse Rate [Left Radial] 71 Respiratory Rate 18 Blood Pressure 128/42 L 118/48 L Blood Pressure [Right Arm] 107/52 L Blood Pressure Mean 70 62 Blood Pressure Mean [Right Arm] 70 02 Sat by Pulse Oximetry 95 95 96 Oxygen Delivery Method Room Air 04/05/23 01:30 04/05/23 02:00 Temperature Temperature Source Pulse Rate 71 70 Pulse Rate [Left Radial] Respiratory Rate Blood Pressure Blood Pressure [Right Arm] Blood Pressure Mean Blood Pressure Mean [Right Arm] 02 Sat by Pulse Oximetry 96 96 Oxygen Delivery Method Lab Data Lab results reviewed: Yes I reviewed the patient's lab results. Lab Results 04/04/23 23:46: Urine Color Yellow, Urine Appearance Clear, Urine pH 6.0, Ur Specific [place] 1.010, Urine Protein Trace, Urine Glucose (UA) 3+, Urine Ketones Negative, Urine Blood 1+, Urine Nitrate Negative, Urine Bilirubin Negative, Urine Urobilinogen 0.2, Ur Leukocyte Esterase 1+ A, Urine RBC 3-5, Urine WBC 5-10, Ur Squamous Epith Cells Occasional, Urine Bacteria 1+ 04/05/23 01:40: WBC 11.5 H, RBC 3.60 L, Hgb 10.9 L, Hct 32.9 L, MCV 91.3, MCH 30.3, MCHC 33.2, RDW 15.4, Plt Count 260, MPV 8.2, Neut % (Auto) 80.6 H, Lymph % (Auto) 11.4, [place] % (Auto) 6.9, Eos % (Auto) 1.0, Baso % (Auto) 0.1, Neut # (Auto) 9.3 H, Lymph # (Auto) 1.3, [place] # (Auto) 0.8, Eos # (Auto) 0.1, Baso # (Auto) 0.0, Sodium 133 L, Potassium 3.5, Chloride 102, Carbon Dioxide 26, Anion Gap 8.5, BUN 26 H, Creatinine 1.60 H, Estimated Creat Clear 38, Estimated GFR 32 L, Est GFR ( Amer) 38 L, Glucose 100, Calcium 8.3 L, Phosphorus 3.3, Magnesium 2.2, Total Bilirubin 0.4, AST 676 H*, ALT 533 H*, Alkaline Phosphatase 141 H, Total Protein 6.5, Albumin 3.4 L, Globulin 3.1, Albumin/Globulin Ratio 1.1 04/05/23 01:40 04/05/23 01:40 Orders (Tests/Meds): ED MEDICATIONS Generic Name Dose Route Start Last Admin Trade Name Freq PRN Reason Stop Dose Admin Acetaminophen 650 mg 04/05/23 02:30 Acetaminophen 325mg Tab PO 05/05/23 02:29 Q6HP PRN Fever or Mild Pain (1-3) Ibuprofen 600 mg 04/05/23 02:30 Ibuprofen 600 Mg Tablet PO 05/05/23 02:29 Q6HP PRN Fever or Mild Pain (1-3) Levofloxacin 750 mg 04/05/23 09:00 Levofloxacin 750 Mg Tablet PO 04/15/23 08:59 DAILY SARAH Discontinued Medications Generic Name Dose Route Start Last Admin Trade Name Freq PRN Reason Stop Dose Admin Levofloxacin 750 mg 04/05/23 02:19 Levofloxacin 750 Mg Tablet PO 04/05/23 02:20 ONCE ONE ORDERS Category Date Time Status CBC w/Auto Diff [Complete Blood Count Auto Diff] Stat Lab 04/04/23 23:50 Completed Comprehensive Metabolic Panel Stat Lab 04/04/23 23:50 Results Magnesium Stat Lab 04/04/23 23:50 Results Phosphorous Stat Lab 04/04/23 23:50 Results T4 (Thyroxine) Stat Lab 04/04/23 23:50 Results Thyroid Stimulating Hormone Stat Lab 04/04/23 23:50 Results UA [Urinalysis and Microscopic] Stat Lab 04/04/23 23:46 Completed Urine Culture Stat Micro 04/04/23 23:46 Received ECG initial [place] Routine Y 04/05/23 00:44 Completed ECG Data Tracing #1: I reviewed this ECG and interpreted as documented below: Normal sinus rhythm with a ventricular rate of 70 bpm. Motion artifact noted given the baseline tremor. No acute ST changes concerning for ischemia. No significant changes noted from prior EKG ECG initial impression date: 04/05/23 ECG initial impression time: 00:50 Medical Decision Narrative: In summary, this patient is a 72-year-old female presenting to the Emergency Department for evaluation of increasing her baseline tremor. Differential diagnoses considered include but are not limited to electrolyte derangements, DIANELYS, urinary tract infection. Ruling out the most morbid conditions drove assessment. It should be noted patient's history includes extensive smoking history and COPD on home oxygen, tremors, hypertension, hyperlipidemia, CAD, RANDY, type 2 diabetes, obesity, and chronic debility which may or may not be at goal therapy. This complicates all aspects of care by increasing patient's risk for morbidity. I reviewed patient's past medical records and noted previous evaluations with noted for tremor in the past, including evaluation by myself in December with concern for this tremor. On exam, the patient is nontoxic-appearing with reassuring vital signs on cardiac telemetry. She is alert and oriented with no focal neurologic deficits. She does have her baseline tremor. Workup included, CMP, urinalysis, and EKG. EKG is reassuring. Labs demonstrated concern for possible urinary tract infection with urine culture pending. Patient also has worsening transaminitis. At this time, decision was made to treat urine with oral Levaquin. Upon attempts to ambulate, patient was unable to stand without significant assistance. This is much worse than her baseline according to herself and her family. Given this, decision was made to admit the patient for general weakness, transaminitis, and urinary tract infection. I had an interactive discussion with Dr. Haney who graciously excepted the patient on behalf of Dr. Moore. The patient was admitted in stable condition for further evaluation and management. Critical Care Critical Care Time Critical Care Time: No
[2023-04-05 01:53] LABS: Basophils % 0.1 % (0.1-2.0); Eosinophils # 0.1 K/mm3 (0.0-0.4); Hematocrit 32.9 % (37.0-47.0); Hemoglobin 10.9 g/dL (12.2-16.2); Lymphocytes # 1.3 K/mm3 (0.7-4.5); Lymphocytes % 11.4 % (10-50); Mean Corpuscular HGB Conc 33.2 g/dL (31.8-35.4); Mean Corpuscular Hemoglobin 30.3 pg (27.0-31.2); Mean Corpuscular Volume 91.3 fl (81-99); Mean Platelet Volume 8.2 fl (7.4-10.4); Monocytes # 0.8 K/mm3 (0.1-1.0); Monocytes % 6.9 % (1.7-9.3); Neutrophils # 9.3 K/mm3 (1.8-7.8); Neutrophils % 80.6 % (37.0-80.0); Platelet Count 260 K/mm3 (142-424); Red Cell Distribution Width 15.4 % (11.5-17.5); White Blood Count 11.5 K/mm3 (4.8-10.8)
--- NOTE | 2023-04-05 01:53 | PC.NURSE ---
ROUNDED ON PATIENT SLEEPING AT THIS TIME, DAUGHTER AT BEDSIDE
[2023-04-05 02:00] LABS: Alanine Aminotransferase 533 U/L (12-78); Albumin Level 3.4 g/dl (3.5-5.0); Albumin/Globulin Ratio 1.1 (1.1-1.8); Alkaline Phosphatase 141 U/L (38-126); Anion Gap 8.5 mEq/L (5-15); Aspartate Amino Transferase 676 U/L (14-36); Bilirubin,Total 0.4 mg/dl (0.2-1.3); Blood Urea Nitrogen 26 mg/dl (7-17); Calcium 8.3 mg/dl (8.4-10.2); Carbon Dioxide 26 mmol/L (22.0-30.0); Chloride 102 mmol/L (98-107); Creatinine Clearance Estimated 38 mL/min (50-200); Estimated Glomerular Filt Rate 32 ml/min (>60); GFR (African American) 38 ML/MIN (>60); Globulin 3.1 g/dL (1.3-3.2); Glucose 100 mg/dl (74-100); Magnesium 2.2 mg/dl (1.6-2.3); Phosphorous 3.3 mg/dl (2.5-4.5); Potassium 3.5 mmoL/L (3.5-5.1); Sodium 133 mmol/L (136-145); Total Protein,Serum 6.5 g/dl (6.3-8.2)
--- NOTE | 2023-04-05 02:28 | PC.NURSE ---
call placed to house for bed assignment. spoke with fabiana. spoke with tyesha griggs.
[2023-04-05] MEDS: levoFLOXacin 750 MG TABLET PO (02:56)
[2023-04-05 03:03] LABS: T4 (Thyroxine) 11.4 ug/dl (5.53-11.0); Thyroid Stimulating Hormone 0.85 uIU/mL (0.465-4.68)
--- NOTE | 2023-04-05 03:04 | PC.NURSE ---
This nurse has attempted twice to obtain an IV using the ultrasound with no success. Dr. Quintana attempted twoce with the ultrasound and no success. House was called about the inability to obtain IV access. patient has no orders for IV fluids or antibiotics at this time. Nurse resuming care of patient has been notified.
--- NOTE | 2023-04-05 03:12 | PC.NURSE ---
Addendum entered by Zelda Ortega RN 04/05/23 04:12: Report Original Note: eport called to ISAC Garcia
[2023-04-05 05:46] LABS: POC Glucose,Bedside 137 (70-110)
--- NOTE | 2023-04-05 09:40 | P.HP_ITS ---
History of Present Illness *Admission Date: 04/05/23 *Reason for visit:: Weakness *History of present illness: Ms. Silvestre is a 72 year old female patient of [facility], with an extensive medical hisotry, who see Dr. Moore for her primary care. She presented to the ER last night with complaints of weakness and worsening tremors. Patient states she was unable to stand after sitting on the toilet last night so she was brought to the ER for evaluation. She was found to have a UTI and plans were made to treat her as an outpatient but she was once again unable to stand so arrangements were made for admission. [facility] Disclaimer: The information contained in this section may have been updated after the patient was seen, as this information can be updated by other users. Medical History Acute respiratory failure with hypoxia Anemia Arthritis Asthma Asthma-chronic obstructive pulmonary disease overlap syndrome Atrial fibrillation with rapid ventricular response Bilateral lower extremity edema COPD (chronic obstructive pulmonary disease) COPD mixed type Coronary artery disease Diabetes mellitus, type 2 Diabetic foot Encounter for screening for malignant neoplasm of lung in current smoker with 30 pack year history or greater Exposure to TB Gastroenteritis GI bleed Hilar lymphadenopathy Hyperlipidemia Hypertension Ileus, unspecified Keratosis Kidney disease Mediastinal lymphadenopathy Multifocal atrial tachycardia Multiple lung nodules on CT Non-STEMI (non-ST elevated myocardial infarction) Obesity (BMI 30.0-34.9) Onychodystrophy Onychogryphosis PAF (paroxysmal atrial fibrillation) Pincer nail deformity Pneumonia Pneumonia Pneumonia due to COVID-19 virus Pre-ulcerative calluses Rheumatic fever/heart disease Right lower lobe pneumonia Sepsis Sepsis SIRS (systemic inflammatory response syndrome) Smoking greater than 30 pack years Stage 3a chronic kidney disease (CKD) Tobacco use Type 2 diabetes mellitus with diabetic neuropathy, without long-term current use of insulin Surgical History History of cholecystectomy History of coronary artery stent placement History of hip surgery Hx of removal of ovary Family History Diabetes Coronary artery disease Hypertension Social History Smoking Status: Never smoker years smoked: 50 smoking status stop date: 2 years ago second hand exposure: Yes alcohol intake: never substance use type: denies use current occupational status: retired Travel in the last 8 weeks: None household members: none housing: house current occupational exposures/hazards: No caffeine: Yes Review of Systems Constitutional Constitutional: Denies chills and Denies fever(s) Eyes Eyes: Denies blurry vision *Cardiovascular Cardiovascular: Denies chest pain and Denies dyspnea *Respiratory Respiratory: Denies dyspnea *Gastrointestinal Gastrointestinal: Denies abdominal pain *Genitourinary Genitourinary: Reports difficulty voiding *Musculoskeletal Musculoskeletal: Denies arthralgias Integumentary/Breasts Skin/Breast: Denies skin pain *Neurologic Neurologic: Reports tremor(s) Meds Home Medications and Allergies Home Medications Medication Instructions Recorded Confirmed Type hydroxyzine HCl 25 mg tablet 25 mg PO BID Anxiety 90 days #180 05/13/18 04/04/23 History tabs montelukast 10 mg tablet 10 mg PO DAILY Asthma 11/09/19 04/04/23 History (Singulair) bupropion HCl (smoking deter) 150 150 mg PO BID Depression 07/11/21 04/04/23 History mg tablet,12 hr sustained-release(smoking deterrent) nitroglycerin 0.4 mg sublingual 0.4 mg sublingual Q5MINP PRN Chest 07/11/21 History tablet Pain empagliflozin 10 mg tablet 10 mg PO DAILY CAD 02/16/22 04/04/23 History (Jardiance) metformin 500 mg tablet 500 mg PO DAILY Diabetes 02/16/22 04/04/23 History rosuvastatin 40 mg tablet 40 mg PO DAILY High cholesterol 02/16/22 04/04/23 History bisoprolol fumarate 10 mg tablet 10 mg PO BID Hypertension 02/17/22 04/04/23 History gabapentin 100 mg capsule 100 mg PO BID Pain 02/17/22 04/04/23 History sitagliptin phosphate 100 mg 100 mg PO DAILYDM Diabetes 02/17/22 04/04/23 History tablet (Januvia) tiotropium bromide 1.25 2 puff inhalation DAILY Copd 02/17/22 04/04/23 History mcg/actuation mist for inhalation (Spiriva Respimat) acetaminophen 500 mg tablet 500 mg PO QIDP PRN Mild Pain 05/15/22 04/04/23 History (Scale Score 1-4) amiodarone 200 mg tablet 200 mg PO DAILY Heart Rhythm 05/15/22 04/04/23 History clopidogrel 75 mg tablet 75 mg PO DAILY Blood Thinner 05/15/22 04/04/23 History ferrous sulfate 325 mg (65 mg 325 mg PO BID Supplement 05/15/22 04/04/23 History iron) tablet (Feosol) pantoprazole 40 mg tablet,delayed 40 mg PO DAILY Acid Reflux 05/15/22 04/04/23 History release sennosides 8.6 mg tablet (senna) 8.6 mg PO DAILY Constipation 05/15/22 04/04/23 History mometasone-formoterol HFA 200 2 puff inhalation BIDRT Copd 06/02/22 04/04/23 History mcg-5 mcg/actuation aerosol inhaler (Dulera) primidone 50 mg tablet 100 mg PO HS Tremor(S) 11/13/22 04/04/23 History albuterol sulfate 90 mcg/actuation 2 puff inhalation QIDP PRN 01/03/23 04/04/23 History aerosol inhaler Shortness Of Breath Or Wheezing diltiazem HCl 180 mg 180 mg PO DAILY High Blood Pressure 01/03/23 04/04/23 History capsule,extended release 24 hr, controlled (DILT-XR) fluticasone propionate 50 1 spray intranasal DAILY Allergy 01/03/23 04/04/23 History mcg/actuation nasal Symptoms spray,suspension levothyroxine 75 mcg tablet 75 mcg PO DAILYDM THYROID 01/03/23 04/04/23 History clopidogrel 75 mg tablet 75 mg PO DAILY 04/04/23 04/04/23 History New Prescriptions to Start Prescriptions: Allergies Allergy/AdvReac Type Severity Reaction Status Date / Time alendronate sodium Allergy Intermediate Dizziness Verified 01/28/23 13:56 [From Fosamax] atorvastatin [From Lipitor] Allergy Intermediate Weakness Verified 01/28/23 13:56 isosorbide Allergy Verified 01/28/23 13:56 tuberculin,PPD,multi-puncture AdvReac Mild POSITIVE Verified 01/28/23 13:56 REACTOR Exam Data for Last 24 hours Vital signs and Labs for Last 24 Hours: Temp Pulse Resp BP Pulse Ox O2 Del Method 98.3 F 77 18 129/79 95 Room Air 04/05/23 08:00 04/05/23 08:00 04/05/23 08:00 04/05/23 08:00 04/05/23 08:00 04/05/23 09:05 Laboratory Results - last 24 hr 04/04/23 23:46: Urine Color Yellow, Urine Appearance Clear, Urine pH 6.0, Ur Specific [place] 1.010, Urine Protein Trace, Urine Glucose (UA) 3+, Urine Ketones Negative, Urine Blood 1+, Urine Nitrate Negative, Urine Bilirubin Negative, Urine Urobilinogen 0.2, Ur Leukocyte Esterase 1+ A, Urine RBC 3-5, Urine WBC 5-10, Ur Squamous Epith Cells Occasional, Urine Bacteria 1+ 04/05/23 01:40: WBC 11.5 H, RBC 3.60 L, Hgb 10.9 L, Hct 32.9 L, MCV 91.3, MCH 30.3, MCHC 33.2, RDW 15.4, Plt Count 260, MPV 8.2, Neut % (Auto) 80.6 H, Lymph % (Auto) 11.4, [place] % (Auto) 6.9, Eos % (Auto) 1.0, Baso % (Auto) 0.1, Neut # (Auto) 9.3 H, Lymph # (Auto) 1.3, [place] # (Auto) 0.8, Eos # (Auto) 0.1, Baso # (Auto) 0.0, Sodium 133 L, Potassium 3.5, Chloride 102, Carbon Dioxide 26, Anion Gap 8.5, BUN 26 H, Creatinine 1.60 H, Estimated Creat Clear 38, Estimated GFR 32 L, Est GFR ( Amer) 38 L, Glucose 100, Calcium 8.3 L, Phosphorus 3.3, Magnesium 2.2, Total Bilirubin 0.4, AST 676 H*, ALT 533 H*, Alkaline Phosphatase 141 H, Total Protein 6.5, Albumin 3.4 L, Globulin 3.1, Albumin/Globulin Ratio 1.1, TSH 0.85, Thyroxine (T4) 11.4 H 04/05/23 05:33: POC Glucose 137 H I & O for Last 24 hours: Intake & Output 04/02/23 04/03/23 04/04/23 04/05/23 23:59 23:59 23:59 23:59 Intake Total 237 / 237 Output Total 500 / 500 Balance -263 / -263 Weight 165 lb 163 lb 5 oz Constitutional Constitutional: no acute distress *Routine HEENT Exam Head: Present normocephalic Eye: Present EOMI and PERRL ENT: Present mucous membranes moist *Routine Neck Exam Neck: Present supple; Absent lymphadenopathy *Routine Respiratory Exam Respiratory: Present decreased breath sounds and CTA bilaterally *Routine Cardiovascular Exam Cardiovascular: Present RRR *Routine Abdominal Exam Abdominal: Present soft and normoactive bowel sounds; Absent tenderness *Routine Rectal Exam Rectal:: deferred *Routine Genitalia Exam Genitalia:: deferred *Routine Extremities Exam Extremities: Present edema (trace bilateral legs); Absent cyanosis or clubbing *Routine Skin Exam Skin: Present warm; Absent rash *Routine Neurological Exam Neurological: Present alert, oriented X3 and tremors Assessment and Plan *Assessment and plan (1) Acute UTI: Status: Acute Category: Medical Code(s): N39.0 - Urinary tract infection, site not specified (2) Tremor: Status: Acute Category: Medical Code(s): R25.1 - Tremor, unspecified (3) General weakness: Status: Acute Category: Medical Code(s): R53.1 - Weakness (4) Transaminitis: Status: Acute Category: Medical Code(s): R74.01 - Elevation of levels of liver transaminase levels (5) Type 2 diabetes mellitus with diabetic neuropathy, without long-term current use of insulin: Status: Acute Category: Medical Code(s): E11.40 - Type 2 diabetes mellitus with diabetic neuropathy, unspecified (6) PAF (paroxysmal atrial fibrillation): Status: Acute Category: Medical Code(s): I48.0 - Paroxysmal atrial fibrillation Plan Patient admitted for further evaluation and management. She does not have an IV at this point, would like to start some IVF and recheck labs, continue antibiotics.
[2023-04-05] MEDS: 0.9 % SODIUM CHLORIDE 1000ML 1,000 ML 75 ML IV (09:59)
[2023-04-05] MEDS: BISOPROLOL 5MG TABLET 10 MG PO ×2 (11:13→21:42)
[2023-04-05] MEDS: EMPAGLIFLOZIN 10MG TABLET 10 MG PO (11:16)
[2023-04-05] MEDS: buPROPion HCl SR 150MG TAB 150 MG PO (11:16)
[2023-04-05] MEDS: PANTOPRAZOLE 40MG TABLET 40 MG PO (11:16)
[2023-04-05] MEDS: SITAGLIPTIN 50MG TABLET 100 MG PO (11:17)
[2023-04-05] MEDS: dilTIAZem HCL 180MG CAP.ER.24H 180 MG PO (11:18)
[2023-04-05] MEDS: CLOPIDOGREL 75MG TAB 75 MG PO (11:18)
[2023-04-05] MEDS: AMIODARONE 200MG TABLET 200 MG PO (11:18)
[2023-04-05] MEDS: GABAPENTIN 100MG CAPSULE 100 MG PO ×2 (11:19→21:42)
[2023-04-05] MEDS: LEVOTHYROXINE 75MCG (0.075MG) TAB 75 MCG PO (11:19)
[2023-04-05] MEDS: MONTELUKAST SODIUM 10MG TAB 10 MG PO (11:20)
[2023-04-05] MEDS: ENOXAPARIN 40MG/0.4ML SYRINGE 40 MG SQ (11:31)
[2023-04-05 12:02] LABS: POC Glucose,Bedside 113 (70-110)
[2023-04-05] MEDS: METFORMIN 500MG TABLET 500 MG PO (16:50)
[2023-04-05 17:03] LABS: POC Glucose,Bedside 113 (70-110)
[2023-04-05] MEDS: TIOTROPIUM 18MCG/PUFF INHALER 1 CAP IH (19:00)
[2023-04-05] MEDS: ATORVASTATIN 40MG TABLET 80 MG PO (21:42)
[2023-04-05] MEDS: PRIMIDONE 50MG TABLET 100 MG PO (21:42)
[2023-04-05 22:05] LABS: POC Glucose,Bedside 108 (70-110)
[2023-04-06] VITALS (8 sets, daily range): BP systolic 102–146; BP diastolic 48–76; PULSE 65–191; RESP 16–20; TEMP 36.7–37; O2SAT 92–96; BMI 30.8; BMI 31.1
[2023-04-06] MEDS: TIOTROPIUM 18MCG/PUFF INHALER 1 CAP IH (06:32)
[2023-04-06] MEDS: SITAGLIPTIN 50MG TABLET 100 MG PO (06:54)
[2023-04-06] MEDS: LEVOTHYROXINE 75MCG (0.075MG) TAB 75 MCG PO (06:54)
[2023-04-06] MEDS: 0.9 % SODIUM CHLORIDE 1000ML 1,000 ML 75 ML IV (06:54)
[2023-04-06 07:04] LABS: POC Glucose,Bedside 95 (70-110)
[2023-04-06 07:26] LABS: Basophils % 0.1 % (0.1-2.0); Eosinophils % 0.2 % (0.1-12.0); Hematocrit 30.6 % (37.0-47.0); Hemoglobin 9.8 g/dL (12.2-16.2); Lymphocytes # 0.9 K/mm3 (0.7-4.5); Lymphocytes % 9.5 % (10-50); Mean Corpuscular HGB Conc 32.1 g/dL (31.8-35.4); Mean Corpuscular Hemoglobin 29.8 pg (27.0-31.2); Mean Corpuscular Volume 92.8 fl (81-99); Mean Platelet Volume 8.9 fl (7.4-10.4); Monocytes # 0.7 K/mm3 (0.1-1.0); Monocytes % 7.1 % (1.7-9.3); Neutrophils % 83.2 % (37.0-80.0); Platelet Count 227 K/mm3 (142-424); Red Cell Distribution Width 15.3 % (11.5-17.5); White Blood Count 9.7 K/mm3 (4.8-10.8)
[2023-04-06 07:43] LABS: Alanine Aminotransferase 571 U/L (12-78); Albumin Level 2.6 g/dl (3.5-5.0); Albumin/Globulin Ratio 0.9 (1.1-1.8); Alkaline Phosphatase 96 U/L (38-126); Anion Gap 8.8 mEq/L (5-15); Aspartate Amino Transferase 683 U/L (14-36); Bilirubin,Total 0.4 mg/dl (0.2-1.3); Blood Urea Nitrogen 23 mg/dl (7-17); Calcium 7.8 mg/dl (8.4-10.2); Carbon Dioxide 23 mmol/L (22.0-30.0); Chloride 106 mmol/L (98-107); Creatinine Clearance Estimated 37 mL/min (50-200); Estimated Glomerular Filt Rate 32 ml/min (>60); GFR (African American) 38 ML/MIN (>60); Globulin 2.9 g/dL (1.3-3.2); Glucose 94 mg/dl (74-100); Potassium 3.8 mmoL/L (3.5-5.1); Sodium 134 mmol/L (136-145); Total Protein,Serum 5.5 g/dl (6.3-8.2)
--- NOTE | 2023-04-06 08:59 | EXP.ACUTE.PN ---
Subjective *Date: 04/06/23 *Time: 08:59 Interval history: Patient with no new complaints today, feels a little better. Medical Exam Vital signs and Labs for Last 24 Hours: Vital Signs Temp Pulse Resp BP Pulse Ox O2 Del Method 04/06/23 04:00 98.2 F 69 18 110/53 L 96 Room Air 04/06/23 07:48 98.0 F 191 H 16 95 Room Air 04/06/23 07:00 110/50 L 04/06/23 07:00 Room Air 04/06/23 05:00 Room Air 04/06/23 03:00 Room Air 04/06/23 01:00 Room Air 04/05/23 23:00 Room Air 04/05/23 21:00 Room Air 04/05/23 21:00 Room Air 04/05/23 20:00 99.8 F H 73 18 86/38 L 95 Room Air 04/05/23 21:30 74 110/50 L 04/05/23 18:48 Room Air 04/05/23 17:25 Room Air 04/05/23 15:20 Room Air 04/05/23 15:40 98.6 F 76 18 119/80 91 L Room Air 04/05/23 12:50 Room Air 04/05/23 11:10 Room Air 04/05/23 09:05 Room Air 04/05/23 09:00 Room Air Intake and Output 04/05/23 04/06/23 04/06/23 23:59 07:59 15:59 Intake Total 510 / 1017 1107 / 1337 230 / 1337 Output Total 1050 / 1900 300 / 300 Balance -540 / -883 807 / 1037 230 / 1037 Intake: Intake, Oral Amount 0 / 507 60 / 290 230 / 290 Intake, Total IV Amount 510 / 510 1047 / 1047 0.9 % Sodium Chloride 1000ML 1, 510 / 510 1047 / 1047 000 ml @ 75 mls/hr IV .[id number] [facility] Rx#:[id number] Output: Output, Urine Amount 1050 / 1900 300 / 300 Other: Weight 163 lb 4.883 oz Patient Weight 04/06/23 23:59 Weight 163 lb 4.883 oz Laboratory Results - last 24 hr 04/05/23 11:10: POC Glucose 113 H 04/05/23 16:53: POC Glucose 113 H 04/05/23 21:58: POC Glucose 108 04/06/23 05:26: WBC 9.7, RBC 3.30 L, Hgb 9.8 L, Hct 30.6 L, MCV 92.8, MCH 29.8, MCHC 32.1, RDW 15.3, Plt Count 227, MPV 8.9, Neut % (Auto) 83.2 H, Lymph % (Auto) 9.5 L, [place] % (Auto) 7.1, Eos % (Auto) 0.2, Baso % (Auto) 0.1, Neut # (Auto) 8.0 H, Lymph # (Auto) 0.9, [place] # (Auto) 0.7, Eos # (Auto) 0.0, Baso # (Auto) 0.0, Sodium 134 L, Potassium 3.8, Chloride 106, Carbon Dioxide 23, Anion Gap 8.8, BUN 23 H, Creatinine 1.60 H, Estimated Creat Clear 37, Estimated GFR 32 L, Est GFR ( Amer) 38 L, Glucose 94, Calcium 7.8 L, Total Bilirubin 0.4, AST 683 H*, ALT 571 H*, Alkaline Phosphatase 96, Total Protein 5.5 L, Albumin 2.6 L D, Globulin 2.9, Albumin/Globulin Ratio 0.9 L 04/06/23 06:47: POC Glucose 95 I & O for Labs for Last 24 Hours: Intake & Output 04/03/23 04/04/23 04/05/23 04/06/23 23:59 23:59 23:59 23:59 Intake Total 1017 / 1017 1337 / 1337 Output Total 1900 / 1900 300 / 300 Balance -883 / -883 1037 / 1037 Weight 165 lb 163 lb 5 oz 163 lb 4.883 oz Constitutional: Present no acute distress Respiratory: Present normal respiratory effort Cardiac: Present Reg Rate and Rhythm GI: Present normal bowel sounds; Absent tenderness Extremities: Present normal inspection and full ROM Skin: Present intact; Absent erythema Neuro: Present Resting Tremor, Grossly Intact and moves all extremities Assessment and Plan *Assessment and plan (1) Acute UTI: Status: Acute Category: Medical Code(s): N39.0 - Urinary tract infection, site not specified (2) Tremor: Status: Acute Category: Medical Code(s): R25.1 - Tremor, unspecified (3) General weakness: Status: Acute Category: Medical Code(s): R53.1 - Weakness (4) Transaminitis: Status: Acute Category: Medical Code(s): R74.01 - Elevation of levels of liver transaminase levels (5) Type 2 diabetes mellitus with diabetic neuropathy, without long-term current use of insulin: Status: Acute Category: Medical Code(s): E11.40 - Type 2 diabetes mellitus with diabetic neuropathy, unspecified (6) PAF (paroxysmal atrial fibrillation): Status: Acute Category: Medical Code(s): I48.0 - Paroxysmal atrial fibrillation Plan Continue current treatment, will request PT/OT evaluation today.
[2023-04-06] MEDS: CLOPIDOGREL 75MG TAB 75 MG PO (09:13)
[2023-04-06] MEDS: EMPAGLIFLOZIN 10MG TABLET 10 MG PO (09:13)
[2023-04-06] MEDS: buPROPion HCl SR 150MG TAB 150 MG PO (09:13)
[2023-04-06] MEDS: ENOXAPARIN 40MG/0.4ML SYRINGE 40 MG SQ (09:13)
[2023-04-06] MEDS: PANTOPRAZOLE 40MG TABLET 40 MG PO (09:13)
[2023-04-06] MEDS: MONTELUKAST SODIUM 10MG TAB 10 MG PO (09:14)
[2023-04-06] MEDS: GABAPENTIN 100MG CAPSULE 100 MG PO ×2 (09:14→21:59)
[2023-04-06] MEDS: AMIODARONE 200MG TABLET 200 MG PO (09:16)
--- NOTE | 2023-04-06 10:50 | HMH.OTEV ---
OT Inpatient Evaluation Rehab OT IP Evaluation Start: 04/06/23 08:59 Freq: ONCE Status: Active Protocol: Document 04/06/23 10:44 ADAN (Rec: 04/06/23 10:50 ADAN [id number]) Rehab OT IP Assessment Subjective History Ms. Silvestre is a 72 year old female patient of [facility], with an extensive medical hisotry, who see Dr. Moore for her primary care. She presented to the ER last night with complaints of weakness and worsening tremors . Patient states she was unable to stand after sitting on the toilet last night so she was brought to the ER for evaluation. She was found to have a UTI and plans were made to treat her as an outpatient but she was once again unable to stand so arrangements were made for admission. PMH: Acute respiratory failure with hypoxia Anemia Arthritis Asthma Asthma-chronic obstructive pulmonary disease overlap syndrome Atrial fibrillation with rapid ventricular response Bilateral lower extremity edema COPD (chronic obstructive pulmonary disease) COPD mixed type Coronary artery disease Diabetes mellitus, type 2 Diabetic foot Encounter for screening for malignant neoplasm of lung in current smoker with 30 pack year history or greater Exposure to TB Gastroenteritis GI bleed Hilar lymphadenopathy Hyperlipidemia Hypertension Ileus, unspecified Keratosis Kidney disease Mediastinal lymphadenopathy Multifocal atrial tachycardia Multiple lung nodules on CT Non-STEMI (non-ST elevated myocardial infarction) Obesity (BMI 30.0-34.9) Onychodystrophy Onychogryphosis PAF (paroxysmal atrial fibrillation) Pincer nail deformity Pneumonia Pneumonia Pneumonia due to COVID-19 virus Pre-ulcerative calluses Rheumatic fever/heart disease Right lower lobe pneumonia Sepsis Sepsis SIRS (systemic inflammatory response syndrome) Smoking greater than 30 pack years Stage 3a chronic kidney disease (CKD) Tobacco use Type 2 diabetes mellitus with diabetic neuropathy, without long-term current use of insulin Patient lives alone in 1 story home. Patient stated to use a RW to ambulate. Patient was independent with ADLs and fx'l mobility prior to admission. Neighbors assist with patient as needed. Subjective I can sit up. Instructed Patient on proper hand and foot placement to complete bed mobility from supine->sit @ EOB requiring Min A. Patient demonstrated good dynamic sitting balance at EOB. Instructed patient on proper hand and foot placement to complete EOB->stand-> ambulate with usage of RW. Patient ambulated ~10ft when LOB appears and needed to be assisted to prevent falling from the floor. Patient stated , My knees just give out. Instructed Patient on needing to place hands on RW to assist back to bed. Patient then demonstrated another LOB when attempting to ambulate back to bed. Patient was transferred back to bed safely. Left Patient upright in bed with needs met at end of session. Objective Patient Orientation Person,Name,Age,Year Right Upper Extremity Gross ROM WFL Left Upper Extremity Gross ROM WFL Bed Mobility bed mobility - supine/sit Assist Level Minimal x 1 (25% assist) Transfer Training Sit/Stand/Pivot Transfer Assist Level Moderate x 2 (50% assist) Chair Transfer Ability Moderate x 2 (50% assist) Chair Transfer Technique Sit to/from Ambulatory Chair Transfer Assistive Devices Rolling Walker Lower Body Dressing Ability Maximum Assistance Rehab OT IP prob,goals,plan Problems Date of Evaluation: 04/06/23 OT IP Problems Bed Mobility,Transfers,Balance ,Self care,Safety Rehab Potential Rehab Potential Good Equipment Needs Assistive Devices Rolling / Wheeled Walker Plan OT intervention Plan Bed Mobility,Transfers,Balance ,Self care,Safety,Therapeutic Exercise OT Plan Frequency Daily Duration LOS Discharge Goals Bed Mobility Ability Assistance x1 Sit to Stand Chair Transfer Ability Minimal x 2 (25% assist) Chair Transfer Ability Minimal x 2 (25% assist) Chair Transfer Technique Sit to/from Ambulatory Chair Transfer Assistive Devices Rolling Walker Discharge Plan OT Discharge Plan Patient is not safe to return home alone at this time. Patient is a high fall risk and will continue to need assistance 13/10 for ADLs and fx'l mobility. Patient to continue to be seen at [facility] IP services during admission. Eval Complexity Eval Charge Codes 53919 - Low Complexity PHYSICIAN CERTIFICATION: I certify the specified therapy services for Trinity Gale Konrad are required, authorized, and reviewed every 30 days.
--- NOTE | 2023-04-06 11:34 | SW/DCPLANNER ---
Addendum entered by Evelyn Guzman 04/08/23 11:20: Patient's son (Amadeo) will be transporting patient to [facility] today. Addendum entered by Evelyn Guzman 04/08/23 07:52: This patient has been approved SNF level of care at [facility]. [id number] Fax #: [phone] phone #: [phone] Addendum entered by Evelyn Guzman 04/07/23 14:57: Betsy w/ [facility] stated that precert will be started on this patient. [facility] is not in network w/ patient's insurance and [facility] has not followed up w/ me regarding referral. I will update patient of discharge plans. Discharge date is unknown at this time. Addendum entered by Evelyn Guzman 04/07/23 09:58: Patient is now open to look into facilities for SNF level of care: preferred facilities 1 [facility], 2 [facility] 3 [facility]. Patient information will be faxed to all facilities and I will follow up once reviewed. Original Note: I spoke w/ this patient regarding plans once medically stable for discharge. PT/OT evaluated patient and recommended placement at time of discharge. Patient stated that she resides at home alone and would prefer to return home. After a lengthy discussion patient stated that she is not interested in placement and would prefer to return home w/ home health services. I will continue to follow up w/ patient and MD regarding discharge plans. Discharge date is unknown at this time.
[2023-04-06 11:42] LABS: POC Glucose,Bedside 157 (70-110)
[2023-04-06] MEDS: levoFLOXacin 750 MG TABLET PO (11:51)
--- NOTE | 2023-04-06 12:23 | HMH.PTEV ---
Physical Therapy Evaluation Rehab PT IP Evaluation Start: 04/06/23 08:59 Freq: ONCE Status: Active Protocol: Document 04/06/23 12:16 PHORNE (Rec: 04/06/23 12:22 PHORNE [id number]) Subjective/History History History 72 yowf adm to [facility] with UTI and general weakness. PMH of COPD, a-fib, CAD, DM, HLD, HTN , NSTEMI, CKD. Significant B UE resting tremors noted upon presentation this am. SHe reports she lives alone, 1 step to enter the home, and she is generally independent with all ADLs at home using RW or w/c for mobility. Subjective Subjective Pt c/o pain and giving out in B knees with any movement in standing. New diagnosis of cancer in past 12 No months? Rehab PT IP Eval Objective Appearance Patient Behavior Appropriate Patient Orientation Person,Place,Time Difficulty following instructions none Speech Pattern Clear Ambulation Patient Able to Ambulate Yes Ambulation Observation IP General Gait Pattern Observation Wide Based Gait,Shuffling Step Ambulation Distance (feet) 15 Ambulation Assistive Device Rolling Walker Ambulation Ability Moderate x 2 (50% assist) Balance Ability to Arise Able, uses arms to help Sitting Balance Leans or slides in chair Standing Balance Unsteady Dynamic Sitting Balance Ability Fair Dynamic Standing Balance Ability Poor Transfers Bed Transfer Ability Minimal x 1 (25% assist) Chair Transfer Ability Moderate x 1 (50% assist) Sit to Stand Bed Transfer Ability Minimal x 1 (25% assist) Sit to Stand Chair Transfer Ability Minimal x 1 (25% assist) Rehab PT IP prob,goals,plan Problems Date of Evaluation: 04/06/23 PT IP Problems Bed Mobility,Transfers,Gait Rehab Potential Rehab Potential Fair Plan PT Intervention Plan Bed Mobility,Transfers,Gait, Therapeutic Exercise PT Plan Frequency Daily Duration LOS Discharge Goals Bed Transfer Ability Minimal x 1 (25% assist) Sit to Stand Chair Transfer Ability Minimal x 1 (25% assist) Ambulation Assistive Device Rolling Walker Ambulation Distance (feet) 20 Discharge Plan PT Discharge Plan Pt with several episodes of loss of balance with no attempt at self-correction during limited gait distance this am. She is most appropriate for rehab placement once medically stable for d/c. Skilled intervention is needed to prevent further injury, debility, falls, or wounds. Eval Complexity Eval Charge Codes 43968 - High Complexity PHYSICIAN CERTIFICATION: I certify the specified therapy services for Trinity Shahla Cortez are required, authorized, and reviewed every 30 days.
[2023-04-06 16:38] LABS: POC Glucose,Bedside 127 (70-110)
[2023-04-06] MEDS: METFORMIN 500 MG PO (17:02)
[2023-04-06] MEDS: MOMETASONE IH (17:54)
[2023-04-06] MEDS: FORMOTEROL IH (17:54)
--- NOTE | 2023-04-06 18:54 | PC.NURSE ---
PT IS RESTING IN BED. ALERT AND ORIENTED X3. EATING AND DRINKING WELL. PT AMBULATED WITH PHYSICAL THERAPY THIS SHIFT. PT IS VERY WEAK AND UNSTEADY. PHYSICAL THERAPY RECOMMENDED PLACEMENT HOWEVER WHEN PT IS DISCHARGED SHE WANTS TO GO HOME. REQUIRED ASSISTANCE WITH BATHING THIS SHIFT. REDNESS AND SMALL OPEN AREA NOTED TO THE BUTTOCKS. BISOPROLOL AND CARDIZEM WAS NOT GIVEN THIS MORNING DUE TO LOW BP. WILL CONTINUE TO MONITOR.
[2023-04-06] MEDS: BISOPROLOL 10 MG 1 EACH PO (21:59)
[2023-04-06] MEDS: ROSUVASTATIN 40 MG 1 EACH PO (22:00)
[2023-04-06] MEDS: PRIMIDONE 50MG TABLET 100 MG PO (22:00)
[2023-04-06 22:16] LABS: POC Glucose,Bedside 93 (70-110)
[2023-04-07] VITALS (7 sets, daily range): BP systolic 96–134; BP diastolic 44–64; PULSE 60–82; RESP 16–20; TEMP 36.6–37.3; O2SAT 93–96; BMI 31.1
[2023-04-07] MEDS: FORMOTEROL IH ×2 (06:13→18:30)
[2023-04-07] MEDS: TIOTROPIUM 18MCG/PUFF INHALER 1 CAP IH (06:13)
[2023-04-07] MEDS: MOMETASONE IH ×2 (06:13→18:30)
[2023-04-07] MEDS: LEVOTHYROXINE 75MCG (0.075MG) TAB 75 MCG PO (06:24)
[2023-04-07] MEDS: SITAGLIPTIN 50MG TABLET 50 MG PO (06:28)
[2023-04-07 06:39] LABS: POC Glucose,Bedside 111 (70-110)
[2023-04-07 07:02] LABS: Basophils % 0.3 % (0.1-2.0); Eosinophils % 0.4 % (0.1-12.0); Hematocrit 35.6 % (37.0-47.0); Hemoglobin 10.5 g/dL (12.2-16.2); Lymphocytes # 0.9 K/mm3 (0.7-4.5); Lymphocytes % 8.7 % (10-50); Mean Corpuscular HGB Conc 29.5 g/dL (31.8-35.4); Mean Corpuscular Hemoglobin 29.9 pg (27.0-31.2); Mean Corpuscular Volume 101.5 fl (81-99); Mean Platelet Volume 8.8 fl (7.4-10.4); Monocytes # 0.6 K/mm3 (0.1-1.0); Monocytes % 5.9 % (1.7-9.3); Neutrophils % 84.7 % (37.0-80.0); Platelet Count 252 K/mm3 (142-424); Red Cell Distribution Width 15.6 % (11.5-17.5); White Blood Count 10.6 K/mm3 (4.8-10.8)
[2023-04-07 07:16] LABS: Alanine Aminotransferase 502 U/L (12-78); Albumin Level 2.8 g/dl (3.5-5.0); Albumin/Globulin Ratio 0.9 (1.1-1.8); Alkaline Phosphatase 99 U/L (38-126); Aspartate Amino Transferase 487 U/L (14-36); Bilirubin,Total 0.4 mg/dl (0.2-1.3); Blood Urea Nitrogen 19 mg/dl (7-17); Carbon Dioxide 22 mmol/L (22.0-30.0); Chloride 104 mmol/L (98-107); Creatinine Clearance Estimated 40 mL/min (50-200); Estimated Glomerular Filt Rate 34 ml/min (>60); GFR (African American) 41 ML/MIN (>60); Glucose 101 mg/dl (74-100); Sodium 135 mmol/L (136-145); Total Protein,Serum 5.8 g/dl (6.3-8.2)
--- NOTE | 2023-04-07 08:24 | ECG_ITS ---
APPROVED REPORT Exam: Resting ECG HR:78 bpm ECG Measurements Heart Rate 78 AXES AZ 155 P 61 QRSd 114 QRS 34 QT 357 T 68 QTc 390 Conclusion SINUS RHYTHM POSSIBLE LEFT ATRIAL ENLARGEMENT [-0.1mV P-WAVE IN V1/V2] INFERIOR MYOCARDIAL INFARCTION , PROBABLY OLD [40+ ms Q WAVE AND/OR ST/T ABNORMALITY IN II/aVF] ABNORMAL ECG UNCONFIRMED REPORT Electronically signed by : Barry García MD 04/08/2023 08:39:01
--- NOTE | 2023-04-07 08:32 | P.PN_ITS ---
Subjective *Date: 04/07/23 *Time: 08:42 Interval history: Patient completing her breakfast sitting up in the bed. She appears comfortable. Tremors are noted. She denies chest pain and shortness of breath. She does have a periodic cough. Laboratory data this morning show white blood cell count of 10,600 with a hemoglobin of 10.5 and hematocrit 35.6 BUN is 19 and creatinine is 1.5 liver functions are slowly decreasing with an AST today of 487 and ALT of 502 Medical Exam Vital signs and Labs for Last 24 Hours: Vital Signs Temp Pulse Pulse Resp BP Pulse Ox O2 Del Method 04/07/23 07:00 Room Air 04/07/23 04:00 78 04/07/23 05:00 Room Air 04/07/23 04:00 98.0 F 79 20 134/64 95 Room Air 04/07/23 03:00 Room Air 04/07/23 00:00 76 04/07/23 01:00 Room Air 04/06/23 23:00 Room Air 04/06/23 21:00 Room Air 04/06/23 20:00 77 04/06/23 23:47 Room Air 04/06/23 20:00 98.6 F 75 18 146/54 H 96 Room Air 04/06/23 18:52 Room Air 04/06/23 16:00 70 04/06/23 09:13 70 04/06/23 16:42 Room Air 04/06/23 12:00 65 04/06/23 16:00 98.1 F 88 20 118/76 92 L Room Air 04/06/23 14:50 Room Air 04/06/23 13:00 Room Air 04/06/23 10:42 Room Air 04/06/23 09:00 Room Air Intake and Output 04/06/23 04/07/23 04/07/23 19:59 03:59 11:59 Intake Total 790 / 790 Output Total 175 / 175 500 / 675 500 / 1175 Balance 615 / 615 -500 / 115 -500 / -385 Intake: Intake, Oral Amount 790 / 790 Output: Output, Urine Amount 175 / 175 500 / 675 500 / 1175 Other: Number of Unmeasured Voids 0 0 Weight 164 lb 10.965 oz 164 lb 9.6 oz Patient Weight 04/07/23 11:59 Weight 164 lb 9.6 oz Laboratory Results - last 24 hr 04/06/23 11:33: POC Glucose 157 H 04/06/23 16:28: POC Glucose 127 H 04/06/23 22:06: POC Glucose 93 04/07/23 06:30: POC Glucose 111 H 04/07/23 06:45: WBC 10.6, RBC 3.50 L, Hgb 10.5 L, Hct 35.6 L, MCV 101.5 H, MCH 29.9, MCHC 29.5 L, RDW 15.6, Plt Count 252, MPV 8.8, Neut % (Auto) 84.7 H, Lymph % (Auto) 8.7 L, [place] % (Auto) 5.9, Eos % (Auto) 0.4, Baso % (Auto) 0.3, Neut # (Auto) 9.0 H, Lymph # (Auto) 0.9, [place] # (Auto) 0.6, Eos # (Auto) 0.0, Baso # (Auto) 0.0, Sodium 135 L, Potassium 4.0, Chloride 104, Carbon Dioxide 22, Anion Gap 13.0, BUN 19 H, Creatinine 1.50 H, Estimated Creat Clear 40, Estimated GFR 34 L, Est GFR ( Amer) 41 L, Glucose 101 H, Calcium 8.0 L, Total Bilirubin 0.4, AST 487 H* D, ALT 502 H*, Alkaline Phosphatase 99, Total Protein 5.8 L, Albumin 2.8 L, Globulin 3.0, Albumin/Globulin Ratio 0.9 L I & O for Labs for Last 24 Hours: Intake & Output 04/04/23 04/05/23 04/06/23 04/07/23 11:59 11:59 11:59 11:59 Intake Total 237 / 237 2117 / 2117 790 / 790 Output Total 500 / 500 1875 / 1875 1175 / 1175 Balance -263 / -263 242 / 242 -385 / -385 Weight 163 lb 5 oz 163 lb 4.883 oz 164 lb 9.6 oz Constitutional: Present no acute distress Comment:: Trying to complete her breakfast. Coarse tremors noted Respiratory: Present rhonchi (Bilateral greater on the right posteriorly) Cardiac: Present Regular Rhythm GI: Present soft and normal bowel sounds; Absent distention or tenderness Extremities: Present edema Neuro: Present alert and oriented x 3 Assessment and Plan *Assessment and plan (1) Acute UTI: Status: Acute Category: Medical Code(s): N39.0 - Urinary tract infection, site not specified (2) Tremor: Status: Acute Category: Medical Code(s): R25.1 - Tremor, unspecified (3) General weakness: Status: Acute Category: Medical Code(s): R53.1 - Weakness (4) Transaminitis: Status: Acute Category: Medical Code(s): R74.01 - Elevation of levels of liver transaminase levels (5) Type 2 diabetes mellitus with diabetic neuropathy, without long-term current use of insulin: Status: Acute Category: Medical Code(s): E11.40 - Type 2 diabetes mellitus with diabetic neuropathy, unspecified (6) PAF (paroxysmal atrial fibrillation): Status: Acute Category: Medical Code(s): I48.0 - Paroxysmal atrial fibrillation Plan Disposition has been discussed with the patient. She is considering rehab. Will continue with PT OT. Will continue to monitor liver function studies. Will add aerosol this a.m. for clearing of rhonchi. Will continue with as needed DuoNebs as well. Dr. Haney entry - Saw patient, agree with above note.
[2023-04-07] MEDS: IPRATROPIUM/ALBUTEROL 3 ML NEB IH (09:02)
[2023-04-07] MEDS: GABAPENTIN 100MG CAPSULE 100 MG PO ×2 (09:25→20:38)
[2023-04-07] MEDS: BISOPROLOL 10 MG 1 EACH PO ×2 (09:25→20:38)
[2023-04-07] MEDS: *PAT OWN MED* PANTOPRAZOLE 40MG TABLET 40 MG PO (09:26)
[2023-04-07] MEDS: AMIODARONE 200 MG PO (09:26)
[2023-04-07] MEDS: DILTIAZEM 180 MG PO (09:26)
[2023-04-07] MEDS: EMPAGLIFLOZIN 10 MG PO (09:26)
[2023-04-07] MEDS: *PAT OWN MED* MONTELUKAST SODIUM 10MG TAB 10 MG PO (09:26)
[2023-04-07] MEDS: *PAT OWN MED* CLOPIDOGREL 75MG TAB 75 MG PO (09:26)
[2023-04-07] MEDS: BUPROPION 150 MG PO (09:26)
[2023-04-07] MEDS: ENOXAPARIN 40MG/0.4ML SYRINGE 40 MG SQ (09:26)
[2023-04-07 12:59] LABS: POC Glucose,Bedside 143 (70-110)
[2023-04-07] MEDS: METFORMIN 500 MG PO (16:52)
[2023-04-07 17:02] LABS: POC Glucose,Bedside 175 (70-110)
--- NOTE | 2023-04-07 17:43 | PC.NURSE ---
patient continues to have weakness but, is a&ox4. Patient's vss and patient has no c/o pain.
[2023-04-07] MEDS: ROSUVASTATIN 40 MG 1 EACH PO (20:38)
[2023-04-07] MEDS: PRIMIDONE 50MG TABLET 100 MG PO (20:39)
[2023-04-07 20:54] LABS: POC Glucose,Bedside 140 (70-110)
[2023-04-08 00:30] VITALS: PULSE 71
[2023-04-08 04:00] VITALS: BP 110/51; PULSE 76; RESP 17; TEMP 36.6; O2SAT 95; BMI 31.1
[2023-04-08 04:05] VITALS: PULSE 78
[2023-04-08] MEDS: SITAGLIPTIN 50MG TABLET 50 MG PO (06:16)
[2023-04-08] MEDS: LEVOTHYROXINE 75MCG (0.075MG) TAB 75 MCG PO (06:17)
[2023-04-08] MEDS: FORMOTEROL IH (06:25)
[2023-04-08] MEDS: MOMETASONE IH (06:25)
[2023-04-08] MEDS: TIOTROPIUM 18MCG/PUFF INHALER 1 CAP IH (06:25)
[2023-04-08 06:31] LABS: POC Glucose,Bedside 103 (70-110)
[2023-04-08 08:00] VITALS: BP 106/47; PULSE 70; PULSE 75; RESP 14; TEMP 37.1; O2SAT 93
--- NOTE | 2023-04-08 08:31 | P.PN_ITS ---
Subjective *Date: 04/08/23 *Time: 09:12 Interval history: Patient is feeling a little better today. She still has a horrible tremor. She states the primidone is not helping anymore. She has an appt with the neurolgist at the end of the month to discuss other options. She denies any yehuda n today. She slept well and tried to eat breakfast. Medical Exam Vital signs and Labs for Last 24 Hours: Vital Signs Temp Pulse Pulse Resp BP Pulse Ox O2 Del Method 04/08/23 05:00 Room Air 04/08/23 04:05 78 04/08/23 04:00 97.9 F 76 17 110/51 L 95 04/08/23 03:00 Room Air 04/08/23 01:00 Room Air 04/08/23 00:30 71 04/07/23 23:00 Room Air 04/07/23 21:00 Room Air 04/07/23 20:00 Room Air 04/07/23 20:30 72 04/07/23 20:00 97.9 F 71 16 130/60 94 L 04/07/23 16:00 98.4 F 77 20 96/44 L 93 L Room Air 04/07/23 16:00 80 04/07/23 12:00 60 Intake and Output 04/07/23 04/08/23 04/08/23 19:59 03:59 11:59 Intake Total 830 / 1070 240 / 1070 Output Total 450 / 1700 1250 / 1700 Balance 380 / -630 -1010 / -630 Intake: Intake, Oral Amount 830 / 1070 240 / 1070 Output: Output, Urine Amount 450 / 1700 1250 / 1700 Other: Number of Unmeasured Voids 1 Weight 164 lb 9.6 oz Patient Weight 04/08/23 11:59 Weight 164 lb 9.6 oz Laboratory Results - last 24 hr 04/07/23 12:52: POC Glucose 143 H 04/07/23 16:54: POC Glucose 175 H 04/07/23 20:43: POC Glucose 140 H 04/08/23 06:14: POC Glucose 103 I & O for Labs for Last 24 Hours: Intake & Output 04/05/23 04/06/23 04/07/23 04/08/23 11:59 11:59 11:59 11:59 Intake Total 237 / 237 2117 / 2117 1150 / 1150 1070 / 1070 Output Total 500 / 500 1875 / 1875 1175 / 1175 1700 / 1700 Balance -263 / -263 242 / 242 -25 / -25 -630 / -630 Weight 163 lb 5 oz 163 lb 4.883 oz 164 lb 9.6 oz 164 lb 9.6 oz Constitutional: Present no acute distress Comment:: Trying to complete her breakfast. Coarse tremors noted Respiratory: Present CTA bilaterally Cardiac: Present Regular Rhythm GI: Present soft and normal bowel sounds; Absent distention or tenderness Extremities: Present edema (less edema today) Neuro: Present Resting Tremor, alert and oriented x 3 Assessment and Plan *Assessment and plan (1) Acute UTI: Status: Acute Category: Medical Code(s): N39.0 - Urinary tract infection, site not specified (2) Tremor: Status: Acute Category: Medical Code(s): R25.1 - Tremor, unspecified (3) General weakness: Status: Acute Category: Medical Code(s): R53.1 - Weakness (4) Transaminitis: Status: Acute Category: Medical Code(s): R74.01 - Elevation of levels of liver transaminase levels (5) Type 2 diabetes mellitus with diabetic neuropathy, without long-term current use of insulin: Status: Acute Category: Medical Code(s): E11.40 - Type 2 diabetes mellitus with diabetic neuropathy, unspecified (6) PAF (paroxysmal atrial fibrillation): Status: Acute Category: Medical Code(s): I48.0 - Paroxysmal atrial fibrillation Plan Disposition has been discussed with the patient. She is still thinking about rehab. Lungs are clear today. Urine culture still pending. Will discuss further care with Dr. Haney. Dr. Haney entry - Saw patient, agree with above note. Patient agrees to go to short term SNF rehab. Arrangements made to discharge to [facility] today. Continue Levaquin every other day. She will keep outpatient appt. with Neurology on 04/21/23. Plan follow up with Dr. Moore in 2 weeks.
[2023-04-08] MEDS: BUPROPION 150 MG PO (09:26)
[2023-04-08] MEDS: *PAT OWN MED* MONTELUKAST SODIUM 10MG TAB 10 MG PO (09:26)
[2023-04-08] MEDS: DILTIAZEM 180 MG PO (09:26)
[2023-04-08] MEDS: AMIODARONE 200 MG PO (09:26)
[2023-04-08] MEDS: *PAT OWN MED* CLOPIDOGREL 75MG TAB 75 MG PO (09:27)
[2023-04-08] MEDS: GABAPENTIN 100MG CAPSULE 100 MG PO (09:27)
[2023-04-08] MEDS: BISOPROLOL 10 MG 1 EACH PO (09:27)
[2023-04-08] MEDS: *PAT OWN MED* PANTOPRAZOLE 40MG TABLET 40 MG PO (09:27)
[2023-04-08] MEDS: EMPAGLIFLOZIN 10 MG PO (09:27)
--- NOTE | 2023-04-08 09:42 | P.DS_ITS ---
General Admission date:: 04/05/23 Discharge date: 04/08/23 HPI HPI HPI: Ms. Silvestre is a 72 year old female patient of [facility], with an extensive medical hisotry, who see Dr. Moore for her primary care. She presented to the ER last night with complaints of weakness and worsening tremors. Patient states she was unable to stand after sitting on the toilet last night so she was brought to the ER for evaluation. She was found to have a UTI and plans were made to treat her as an outpatient but she was once again unable to stand so arrangements were made for admission. Hospital Course Hospital Course Hospital Course: The patient was admitted and was started on IV fluids and antibiotics for her UTI. A PT and OT evaluation were done and they felt she would be most appropriate for rehab placement. She continued with tremors but did appear more comfortable throughout her stay. Her liver functions slowly decreased. Care management discussed rehab placement with the patient and a bed was found for her in [place]. Aerosols were added due to some rhonchi. Rhonchi improved with the nebs. By 04/08/2023 she denies any pain and was sleeping and eating well. Her urine culture was still pending. She agreed to go to a short-term intermediate facility for rehab and arrangements were made to discharge to [facility] today. She will continue Levaquin every other day and will keep her outpatient appointment with neurology on 04/21/2023. She will follow-up with Dr. Moore in 2 weeks. Exam Data for Last 24 hours Vital signs and Labs for Last 24 Hours: Temp Pulse Resp BP Pulse Ox O2 Del Method 98.8 F 75 14 106/47 L 93 L Room Air 04/08/23 08:00 04/08/23 08:00 04/08/23 08:00 04/08/23 08:00 04/08/23 08:00 04/08/23 09:15 Laboratory Results - last 24 hr 04/07/23 12:52: POC Glucose 143 H 04/07/23 16:54: POC Glucose 175 H 04/07/23 20:43: POC Glucose 140 H 04/08/23 06:14: POC Glucose 103 I & O for Last 24 hours: Intake & Output 04/05/23 04/06/23 04/07/23 04/08/23 11:59 11:59 11:59 11:59 Intake Total 237 / 237 2117 / 2117 1150 / 1150 1070 / 1070 Output Total 500 / 500 1875 / 1875 1175 / 1175 1700 / 1700 Balance -263 / -263 242 / 242 -25 / -25 -630 / -630 Weight 163 lb 5 oz 163 lb 4.883 oz 164 lb 9.6 oz 164 lb 9.6 oz Narrative: Constitutional Constitutional: no acute distress *Routine HEENT Exam Head: Present normocephalic Eye: Present EOMI and PERRL ENT: Present mucous membranes moist *Routine Neck Exam Neck: Present supple; Absent lymphadenopathy *Routine Respiratory Exam Respiratory: Present decreased breath sounds and CTA bilaterally *Routine Cardiovascular Exam Cardiovascular: Present RRR *Routine Abdominal Exam Abdominal: Present soft and normoactive bowel sounds; Absent tenderness *Routine Rectal Exam Rectal:: deferred *Routine Genitalia Exam Genitalia:: deferred *Routine Extremities Exam Extremities: Present edema (trace bilateral legs); Absent cyanosis or clubbing *Routine Skin Exam Skin: Present warm; Absent rash *Routine Neurological Exam Neurological: Present alert, oriented X3 and tremors Results Data Completed and Pending Labs on day of discharge: Labs from last 24 hours 04/08/23 04/07/23 04/07/23 06:14 20:43 16:54 POC Glucose 103 140 H 175 H 04/07/23 12:52 POC Glucose 143 H DS: Diagnosis Discharge Diagnosis (1) Acute UTI: Status: Acute Code(s): N39.0 - Urinary tract infection, site not specified (2) Tremor: Status: Acute Code(s): R25.1 - Tremor, unspecified (3) General weakness: Status: Acute Code(s): R53.1 - Weakness (4) Transaminitis: Status: Acute Code(s): R74.01 - Elevation of levels of liver transaminase levels (5) Type 2 diabetes mellitus with diabetic neuropathy, without long-term current use of insulin: Status: Acute Code(s): E11.40 - Type 2 diabetes mellitus with diabetic neuropathy, unspecified (6) PAF (paroxysmal atrial fibrillation): Status: Acute Code(s): I48.0 - Paroxysmal atrial fibrillation Meds Home Medications and Allergies Home Medications Medication Instructions Recorded Confirmed Type hydroxyzine HCl 25 mg tablet 25 mg PO BID Anxiety 90 days #180 05/13/18 04/04/23 History tabs montelukast 10 mg tablet 10 mg PO DAILY Asthma 11/09/19 04/04/23 History (Singulair) bupropion HCl (smoking deter) 150 150 mg PO BID Depression 07/11/21 04/04/23 History mg tablet,12 hr sustained-release(smoking deterrent) nitroglycerin 0.4 mg sublingual 0.4 mg sublingual Q5MINP PRN Chest 07/11/21 04/04/23 History tablet Pain empagliflozin 10 mg tablet 10 mg PO DAILY CAD 02/16/22 04/05/23 History (Jardiance) metformin 500 mg tablet 500 mg PO PM Diabetes 02/16/22 04/05/23 History rosuvastatin 40 mg tablet 40 mg PO DAILY High cholesterol 02/16/22 04/04/23 History bisoprolol fumarate 10 mg tablet 10 mg PO BID Hypertension 02/17/22 04/04/23 Hi story sitagliptin phosphate 100 mg 100 mg PO DAILYDM Diabetes 02/17/22 04/04/23 History tablet (Januvia) tiotropium bromide 1.25 2 puff inhalation DAILY Copd 02/17/22 04/04/23 History mcg/actuation mist for inhalation (Spiriva Respimat) acetaminophen 500 mg tablet 500 mg PO QIDP PRN Mild Pain 05/15/22 04/04/23 History (Scale Score 1-4) amiodarone 200 mg tablet 200 mg PO DAILY Heart Rhythm 05/15/22 04/04/23 History clopidogrel 75 mg tablet 75 mg PO DAILY Blood Thinner 05/15/22 04/04/23 History ferrous sulfate 325 mg (65 mg 325 mg PO BID Supplement 05/15/22 04/04/23 History iron) tablet (Feosol) pantoprazole 40 mg tablet,delayed 40 mg PO DAILY Acid Reflux 05/15/22 04/04/23 History release sennosides 8.6 mg tablet (senna) 8.6 mg PO DAILY Constipation 05/15/22 04/04/23 History mometasone-formoterol HFA 200 2 puff inhalation BIDRT Copd 06/02/22 04/04/23 History mcg-5 mcg/actuation aerosol inhaler (Dulera) primidone 50 mg tablet 100 mg PO HS Tremor(S) 11/13/22 04/04/23 History albuterol sulfate 90 mcg/actuation 2 puff inhalation QIDP PRN 01/03/23 04/04/23 History aerosol inhaler Shortness Of Breath Or Wheezing diltiazem HCl 180 mg 180 mg PO DAILY High Blood Pressure 01/03/23 04/04/23 History capsule,extended release 24 hr, controlled (DILT-XR) fluticasone propionate 50 1 spray intranasal DAILYP PRN 01/03/23 04/05/23 History mcg/actuation nasal ALLERGIES spray,suspension levothyroxine 75 mcg tablet 75 mcg PO DAILYDM THYROID 01/03/23 04/04/23 History potassium chloride 10 mEq 10 meq PO DAILY Supplement 04/05/23 04/05/23 History tablet,extended release gabapentin 100 mg capsule 100 mg PO BID Neuropathy #60 caps 04/08/23 Rx levofloxacin 750 mg tablet 750 mg PO Q48H #3 tabs 04/08/23 Rx New Prescriptions to Start Prescriptions: gabapentin [place],Tomasz levofloxacin [place],Tomasz Allergies Allergy/AdvReac Type Severity Reaction Status Date / Time alendronate sodium Allergy Intermediate Dizziness Verified 01/28/23 13:56 [From Fosamax] isosorbide Allergy Unknown Verified 04/05/23 15:06 allergy reaction atorvastatin [From Lipitor] AdvReac Intermediate Weakness Verified 04/05/23 15:06 tuberculin,PPD,multi-puncture AdvReac Mild POSITIVE Verified 01/28/23 13:56 REACTOR Discharge Plan Disposition Patient Disposition: er SNF Condition: Good Discharge Order Discharge Orders: Discharge Order (Routine); Ordered 04/08/23 Ordered By: Tomasz Haney Follow up Plan Follow up with: Jack Moore MD [Primary Care Provider] - 04/23/23 Prescriptions/Medication Reconciliation: New levofloxacin 750 mg tablet 750 mg PO Q48H Qty: 3 0RF Continued hydroxyzine HCl 25 mg tablet 25 mg PO BID 90 Days Qty: 180 Patient Comments: TAKE 1 TABLET BY MOUTH TWO TIMES A DAY montelukast [Singulair] 10 mg tablet 10 mg PO DAILY acetaminophen 500 mg tablet 500 mg PO QIDP PRN (Reason: Mild Pain (Scale Score 1-4)) sennosides [senna] 8.6 mg tablet 8.6 mg PO DAILY clopidogrel 75 mg tablet 75 mg PO DAILY pantoprazole 40 mg tablet,delayed release (DR/EC) 40 mg PO DAILY ferrous sulfate [Feosol] 325 mg (65 mg iron) tablet 325 mg PO BID amiodarone 200 mg tablet 200 mg PO DAILY Dulera 200-5 mcg/actuation HFA aerosol inhaler 2 puff inhalation BIDRT primidone 50 mg tablet 100 mg PO HS bupropion HCl (smoking deter) 150 MG tablet extended release 12 hr 150 mg PO BID nitroglycerin 0.4 MG tablet, sublingual 0.4 mg SL Q5MINP PRN (Reason: Chest Pain) potassium chloride 10 mEq tablet extended release 10 meq PO DAILY gabapentin 100 MG capsule 100 mg PO BID Qty: 60 0RF metformin 500 mg tablet 500 mg PO PM Rx Instructions: PATIENT TAKES IN THE EVENING. rosuvastatin 40 mg tablet 40 mg PO DAILY Jardiance 10 mg tablet 10 mg PO DAILY Spiriva Respimat 1.25 mcg/actuation mist 2 puff IH DAILY bisoprolol fumarate 10 mg tablet 10 mg PO BID Januvia 100 mg tablet 100 mg PO DAILYDM diltiazem HCl [DILT-XR] 180 mg capsule,ext.rel 24h degradable 180 mg PO DAILY levothyroxine 75 mcg tablet 75 mcg PO DAILYDM albuterol sulfate 90 mcg/actuation HFA aerosol inhaler 2 puff INHALATION QIDP PRN (Reason: Shortness Of Breath Or Wheezing) fluticasone propionate 50 mcg/actuation spray,suspension 1 spray INTRANASAL DAILYP PRN (Reason: ALLERGIES) Problem Reconciliation Problems Reviewed?: Yes Patient Discharge Instructions ACTIVITY: Continue current activity DIET: continue same diet Additional Instructions: Please check CBC and CMP in 1 week. Patient Instructions: DI for Urinary Tract Infection (UTI) Providers Primary Care Provider: Jack Moore Admit Provider: Tomasz Hnaey Attending Provider: Jack Moore
[2023-04-08] MEDS: levoFLOXacin 750 MG TABLET PO (10:16)
[2023-04-08 11:09] LABS: POC Glucose,Bedside 116 (70-110)
--- NOTE | 2023-04-09 08:13 | PC.NURSE ---
PRELIMINARY URINE CULTURE DISCUSSED WITH DR WARREN, PT ADMITTED TO 2ND FLOOR. TREATED WITH LEVAQUIN, THEN DISCHARGED ON LEVAQUIN. NO NEW ORDERS
== END 2023-04-08 11:54 ==
LOC: ER 04-05 02:25 → 2ND 04-05 04:05
PROVIDERS: Admitting Provider Family Medicine; Emergency Provider Emergency Medicine; PCP Family Medicine; Visit Provider Family Medicine
DX: N39.0 Urinary tract infection, site not specified (principal); R25.1 Tremor, unspecified; R53.1 Weakness; R74.01 Elevation of levels of liver transaminase levels; E11.40 Type 2 diabetes mellitus with diabetic neuropathy, unspecified; I48.0 Paroxysmal atrial fibrillation; Z79.84 Long term (current) use of oral hypoglycemic drugs
CPT/HCPCS: 36415; 80053; 81001; 82962; 83735; 84100; 84436; 84443; 85025; 87086; 93005; 94640; 97110; 97116; 97163; 97165; 97530; 99285; G0378

== ENCOUNTER 2023-04-21 16:33 | Outpatient (CLI) | payer MEDICARE, MEDICAID, SELFPAY ==
--- NOTE | 2023-04-21 16:50 | XR_ITS ---
PROCEDURE INFORMATION: Exam: XR Cervical Spine Exam date and time: 04/21/2023 4:51 PM Age: 72 years old Clinical indication: Neck pain; Patient HX: Patient shakes continuously, involuntarily. She could not hold still for exam. She cannot stand. She is restricted to a wheelchair. TECHNIQUE: Imaging protocol: Radiologic exam of the cervical spine. Views: 4 or 5 views. COMPARISON: PT PET CT Skull Base to Midthigh 05/29/2021 10:55 AM FINDINGS: Bones/joints: Anterolisthesis 4 mm C3 on C4 and 4 mm C4 on C5. Degenerative changes. Soft tissues: Unremarkable. IMPRESSION: Anterolisthesis C3 on C4 and C4 on C5.
[2023-04-21 17:11] LABS: Ammonia < 9 umol/L (9-30)
[2023-04-21 17:23] LABS: Chloride 99 mmol/L (98-107)
[2023-04-21 17:24] LABS: Potassium 4.6 mmoL/L (3.5-5.1); Sodium 130 mmol/L (136-145)
[2023-04-21 17:26] LABS: Blood Urea Nitrogen 26 mg/dl (7-17); Estimated Glomerular Filt Rate 44 ml/min (>60); GFR (African American) 53 ML/MIN (>60)
[2023-04-21 17:27] LABS: Alanine Aminotransferase 149 U/L (12-78); Albumin Level 2.8 g/dl (3.5-5.0); Alkaline Phosphatase 123 U/L (38-126); Anion Gap 11.6 mEq/L (5-15); Aspartate Amino Transferase 205 U/L (14-36); Bilirubin,Total 0.5 mg/dl (0.2-1.3); Calcium 8.3 mg/dl (8.4-10.2); Carbon Dioxide 24 mmol/L (22.0-30.0); Globulin 2.8 g/dL (1.3-3.2); Glucose 99 mg/dl (74-100); Total Protein,Serum 5.6 g/dl (6.3-8.2)
[2023-04-21 17:28] LABS: Acetaminophen < 10 ug/ml (10-30); Ethyl Alcohol < 10 mg/dl (0-10)
[2023-04-21 17:36] LABS: Basophils % 0.2 % (0.1-2.0); Eosinophils # 0.1 K/mm3 (0.0-0.4); Eosinophils % 0.5 % (0.1-12.0); Hematocrit 33.2 % (37.0-47.0); Hemoglobin 10.6 g/dL (12.2-16.2); Lymphocytes # 1.3 K/mm3 (0.7-4.5); Mean Corpuscular HGB Conc 32.1 g/dL (31.8-35.4); Mean Corpuscular Volume 90.3 fl (81-99); Mean Platelet Volume 7.7 fl (7.4-10.4); Monocytes # 0.6 K/mm3 (0.1-1.0); Monocytes % 5.4 % (1.7-9.3); Neutrophils # 9.6 K/mm3 (1.8-7.8); Platelet Count 484 K/mm3 (142-424); Red Blood Count 3.68 M/mm3 (4.20-5.40); Red Cell Distribution Width 15.1 % (11.5-17.5); White Blood Count 11.6 K/mm3 (4.8-10.8)
[2023-04-21 17:47] LABS: Uric Acid 3.1 mg/dl (2.5-6.2)
[2023-04-21 18:22] LABS: Erythrocyte Sedimentation Rate 122 mm/hr (0-30)
[2023-04-22 10:03] LABS: RA Latex Turbid. <10.0 IU/mL (<14.0)
[2023-04-23 15:25] LABS: Antinuclear Antibodies, IFA Negative (.)
[2023-04-28 10:41] LABS: Antinuclear Antibodies (ANA) NEGATIVE
== END 2023-04-21 23:59 ==
LOC: LAB 16:34
PROVIDERS: PCP Family Medicine; Visit Provider Nurse Practitioner Family
DX: M54.2 Cervicalgia; R74.01 Elevation of levels of liver transaminase levels; R25.1 Tremor, unspecified; R53.1 Weakness; Z79.899 Other long term (current) drug therapy; Z51.81 Encounter for therapeutic drug level monitoring
CPT/HCPCS: 36415; 72052; 80053; 80329; 82140; 84550; 85025; 85651; 86038; 86225; 86235; 86431

== ENCOUNTER 2023-05-05 12:46 | Outpatient (CLI) | payer MEDICARE, MEDICAID, SELFPAY ==
[2023-05-05] MEDS: ALBUTEROL 0.083% 2.5 MG/3 ML NEB IH (13:11)
--- NOTE | 2023-05-05 13:11 | PC.NURSE ---
Spirometry Pre and Post completed without incident. Albuterol 0.083% given, via HHN, per written protocol, Pt tolerated tx well.
== END 2023-05-05 23:59 ==
LOC: RT 12:47
PROVIDERS: PCP Family Medicine; Visit Provider Internal Medicine Pulmonary Disease
DX: J44.9 Chronic obstructive pulmonary disease, unspecified (principal); R06.02 Shortness of breath
CPT/HCPCS: 94010; 94060

== ENCOUNTER 2023-05-08 13:09 | Outpatient (CLI) | payer MEDICARE, MEDICAID, SELFPAY ==
--- NOTE | 2023-05-08 13:16 | CT_ITS ---
FINAL REPORT CLINICAL HISTORY: flucuating mental status changes COMPARISON: None FINDINGS: Axial images of the head were obtained without contrast. Coronal and sagittal reformatted images were also obtained. This study was performed with techniques to keep radiation doses as low as reasonably achievable (ALARA). Individualized dose reduction techniques using automated exposure control or adjustment of mA and/or kV according to the patient's size were employed. There is generalized age appropriate atrophy. There is no evidence of intracranial hemorrhage or mass. The ventricular size is within normal limits. There is no evidence of shift of the midline structures. No skull abnormality is seen on the bone window images. IMPRESSION: No acute intracranial abnormality. Reviewed, Interpreted and Dictated by Shoaib Booth III, MD Transcribed by Jenny Lewis Authenticated and [facility]
--- NOTE | 2023-05-08 13:16 | CT_ITS ---
FINAL REPORT CLINICAL HISTORY: Neck pain COMPARISON: None FINDINGS: Axial CT images of the cervical spine were obtained without contrast. Sagittal and coronal reformatted images were also obtained. This study was performed with techniques to keep radiation doses as low as reasonably achievable (ALARA). Individualized dose reduction techniques using automated exposure control or adjustment of mA and/or kV according to the patient's size were employed. There is no evidence of fracture or dislocation. There is moderate degenerative change present in the cervical spine, with multilevel osteophytes and facet arthropathy. There is mild anterolisthesis of C3 on C4, and C4 on C5. There is mild retrolisthesis of C5 on C6. No paraspinous soft tissue abnormality is seen. Limited images of the upper thorax are unremarkable. C2-3: No evidence of canal stenosis or neural foraminal narrowing. C3-4: Disc osteophyte complex, moderate right and severe left neural foraminal narrowing, and mild canal stenosis with an AP canal diameter of 7 mm. C4-5: Disc osteophyte complex is present with moderate bilateral neural foraminal narrowing and mild canal stenosis with an AP canal diameter of 7 mm. C5-6: Disc osteophyte complex is present with moderate right and mild left neural foraminal narrowing. C6-7: Disc osteophyte complex is present without evidence of significant canal stenosis or neural foraminal narrowing. C7-T1: No evidence of significant canal stenosis or neural foraminal narrowing. IMPRESSION: Degenerative change as described above. Reviewed, Interpreted and Dictated by Shoaib Booth III, MD Transcribed by Jenny Lewis Authenticated and . [facility]
== END 2023-05-08 23:59 ==
LOC: RAD 13:10
PROVIDERS: PCP Family Medicine; Visit Provider Nurse Practitioner Family
DX: G93.40 Encephalopathy, unspecified (principal); M54.2 Cervicalgia; R20.0 Anesthesia of skin; R20.2 Paresthesia of skin; R41.82 Altered mental status, unspecified; R53.1 Weakness
CPT/HCPCS: 70450; 72125

== ENCOUNTER 2023-05-19 13:56 | Outpatient (CLI) | payer MEDICARE, MEDICAID, SELFPAY ==
[2023-05-19 15:03] LABS: Alanine Aminotransferase 20 U/L (12-78); Albumin Level 3.2 g/dl (3.5-5.0); Alkaline Phosphatase 111 U/L (38-126); Anion Gap 9.7 mEq/L (5-15); Aspartate Amino Transferase 23 U/L (14-36); Bilirubin,Direct 0.3 mg/dl (0.0-0.4); Bilirubin,Total 0.3 mg/dl (0.2-1.3); Blood Urea Nitrogen 32 mg/dl (7-17); Carbon Dioxide 28 mmol/L (22.0-30.0); Chloride 105 mmol/L (98-107); Estimated Glomerular Filt Rate 34 ml/min (>60); GFR (African American) 41 ML/MIN (>60); Glucose 125 mg/dl (74-100); Potassium 4.7 mmoL/L (3.5-5.1); Sodium 138 mmol/L (136-145); Total Protein,Serum 5.9 g/dl (6.3-8.2)
== END 2023-05-19 23:59 ==
LOC: LAB 13:57
PROVIDERS: PCP Family Medicine; Visit Provider Internal Medicine
DX: R74.8 Abnormal levels of other serum enzymes (principal)
CPT/HCPCS: 36415; 80048; 80076

== ENCOUNTER 2023-07-13 23:35 | Emergency (ER) | payer MEDICARE, MEDICAID, SELFPAY ==
[2023-07-13 23:35] VITALS: BP 101/51; PULSE 55; RESP 16; TEMP 36.3; O2SAT 98; BMI 26.9
--- NOTE | 2023-07-13 23:37 | ED_ITS ---
Discharge Plan Disposition Patient Disposition: Home, Self-Care Prescriptions Prescriptions: No Action hydroxyzine HCl 25 mg tablet 25 mg PO BID 90 Days Qty: 180 Patient Comments: TAKE 1 TABLET BY MOUTH TWO TIMES A DAY montelukast [Singulair] 10 mg tablet 10 mg PO DAILY sennosides [senna] 8.6 mg tablet 8.6 mg PO DAILY clopidogrel 75 mg tablet 75 mg PO DAILY pantoprazole 40 mg tablet,delayed release (DR/EC) 40 mg PO DAILY ferrous sulfate [Feosol] 325 mg (65 mg iron) tablet 325 mg PO BID amiodarone 200 mg tablet 200 mg PO DAILY Dulera 200-5 mcg/actuation HFA aerosol inhaler 2 puff inhalation BIDRT furosemide 20 mg tablet 20 mg PO DAILY primidone 50 mg tablet 100 mg PO BID levothyroxine 75 mcg tablet See Rx Instructions .ROUTE .COMPLEX Qty: 90 3RF Dose Instruction: TAKE 1 TABLET BY MOUTH EVERY MORNING ON AN EMPTY STOMACH Rx Instructions: TAKE 1 TABLET BY MOUTH EVERY MORNING ON AN EMPTY STOMACH nitroglycerin 0.4 MG tablet, sublingual 0.4 mg SL Q5MINP PRN (Reason: Chest Pain) potassium chloride 10 mEq tablet extended release 10 meq PO DAILY gabapentin 100 MG capsule 100 mg PO BID Qty: 60 0RF metformin 500 mg tablet 500 mg PO PM Rx Instructions: PATIENT TAKES IN THE EVENING. rosuvastatin 40 mg tablet 40 mg PO DAILY Jardiance 10 mg tablet 10 mg PO DAILY Spiriva Respimat 1.25 mcg/actuation mist 2 puff IH DAILY Januvia 100 mg tablet 100 mg PO DAILYDM bisoprolol fumarate 10 mg tablet 10 mg PO DAILY diltiazem HCl [DILT-XR] 180 mg capsule,ext.rel 24h degradable 180 mg PO DAILY albuterol sulfate 90 mcg/actuation HFA aerosol inhaler 2 puff INHALATION QIDP PRN (Reason: Shortness Of Breath Or Wheezing) fluticasone propionate 50 mcg/actuation spray,suspension 1 spray INTRANASAL DAILYP PRN (Reason: ALLERGIES) Referrals Follow up/Referrals: Provider,Referral, MD [Primary Care Provider] - See instructions Activity Restrictions/Add. Instructions Additional Instructions/Restrictions: Please follow-up with your primary care provider. Please return to the emergency department if you develop any new or worsening symptoms or become concerned for your health. Clinical Impressions Clinical Impression: Acute hip pain Qualifiers: Laterality: right Qualified Code(s): M25.551 - Pain in right hip Discharge ED Provider: Luis Zapata General Adult HPI General Chief complaint: Extremity Problem,Nontraumatic Stated complaint: Pain in R hip Time Seen by Provider: 07/13/23 23:37 History of Present Illness HPI narrative: 73-year-old female with distant history of bilateral hip replacement presents with atraumatic right hip/femur pain. She reports that she was sitting in her wheelchair when she suddenly felt pain in that area. She reports it similar but not as severe as when she has previously dislocated the hip. She denies any recent falls or trauma. She denies any pain anywhere else. Any numbness, tingling, weakness. Reports pain is worse with movement. Related Data Home Medications Medication Instructions Recorded Confirmed hydroxyzine HCl 25 mg tablet 25 mg PO BID Anxiety 90 days #180 05/13/18 05/19/23 tabs montelukast 10 mg tablet 10 mg PO DAILY Asthma 11/09/19 05/19/23 (Singulair) nitroglycerin 0.4 mg sublingual 0.4 mg sublingual Q5MINP PRN Chest 07/11/21 05/19/23 tablet Pain empagliflozin 10 mg tablet 10 mg PO DAILY CAD 02/16/22 05/19/23 (Jardiance) metformin 500 mg tablet 500 mg PO PM Diabetes 02/16/22 05/19/23 rosuvastatin 40 mg tablet 40 mg PO DAILY High cholesterol 02/16/22 05/19/23 sitagliptin phosphate 100 mg 100 mg PO DAILYDM Diabetes 02/17/22 05/19/23 tablet (Januvia) tiotropium bromide 1.25 2 puff inhalation DAILY Copd 02/17/22 05/19/23 mcg/actuation mist for inhalation (Spiriva Respimat) amiodarone 200 mg tablet 200 mg PO DAILY Heart Rhythm 05/15/22 05/19/23 clopidogrel 75 mg tablet 75 mg PO DAILY Blood Thinner 05/15/22 05/19/23 ferrous sulfate 325 mg (65 mg 325 mg PO BID Supplement 05/15/22 05/19/23 iron) tablet (Feosol) pantoprazole 40 mg tablet,delayed 40 mg PO DAILY Acid Reflux 05/15/22 05/19/23 release sennosides 8.6 mg tablet (senna) 8.6 mg PO DAILY Constipation 05/15/22 05/19/23 mometasone-formoterol HFA 200 2 puff inhalation BIDRT Copd 06/02/22 05/19/23 mcg-5 mcg/actuation aerosol inhaler (Dulera) albuterol sulfate 90 mcg/actuation 2 puff inhalation QIDP PRN 01/03/23 05/19/23 aerosol inhaler Shortness Of Breath Or Wheezing diltiazem HCl 180 mg 180 mg PO DAILY High Blood Pressure 01/03/23 05/19/23 capsule,extended release 24 hr, controlled (DILT-XR) fluticasone propionate 50 1 spray intranasal DAILYP PRN 01/03/23 05/19/23 mcg/actuation nasal ALLERGIES spray,suspension potassium chloride 10 mEq 10 meq PO DAILY Supplement 04/05/23 05/19/23 tablet,extended release bisoprolol fumarate 10 mg tablet 10 mg PO DAILY Hypertension 05/19/23 05/19/23 furosemide 20 mg tablet 20 mg PO DAILY 05/19/23 05/19/23 primidone 50 mg tablet 100 mg PO BID Tremor(S) 05/19/23 05/19/23 Previous Rx's Medication Instructions Recorded gabapentin 100 mg capsule 100 mg PO BID Neuropathy #60 caps 04/08/23 levothyroxine 75 mcg tablet See Rx Instructions .Route 05/27/23 .COMPLEX #90 tabs Allergies Allergy/AdvReac Type Severity Reaction Status Date / Time alendronate sodium Allergy Intermediate Dizziness Verified 05/19/23 13:23 [From Fosamax] isosorbide Allergy Unknown Verified 05/19/23 13:23 allergy reaction atorvastatin [From Lipitor] AdvReac Intermediate Weakness Verified 05/19/23 13:23 tuberculin,PPD,multi-puncture AdvReac Mild POSITIVE Verified 05/19/23 13:23 REACTOR PFSH PFS Disclaimer: The information contained in this section may have been updated after the patient was seen, as this information can be updated by other users. Medical History Acute respiratory failure with hypoxia Anemia Arthritis Asthma Asthma-chronic obstructive pulmonary disease overlap syndrome Atrial fibrillation with rapid ventricular response Bilateral lower extremity edema COPD (chronic obstructive pulmonary disease) COPD mixed type Coronary artery disease Diabetes mellitus, type 2 Diabetic foot Encounter for screening for malignant neoplasm of lung in current smoker with 30 pack year history or greater Exposure to TB Gastroenteritis GI bleed Hilar lymphadenopathy History of smoking 30 or more pack years Hyperlipidemia Hypertension Ileus, unspecified Keratosis Kidney disease Mediastinal lymphadenopathy Multifocal atrial tachycardia Multiple lung nodules on CT Non-STEMI (non-ST elevated myocardial infarction) Obesity (BMI 30.0-34.9) Onychodystrophy Onychogryphosis PAF (paroxysmal atrial fibrillation) Pincer nail deformity Pneumonia Pneumonia Pneumonia due to COVID-19 virus Pre-ulcerative calluses Rheumatic fever/heart disease Right lower lobe pneumonia Sepsis Sepsis SIRS (systemic inflammatory response syndrome) Smoking greater than 30 pack years Stage 3a chronic kidney disease (CKD) Tobacco use Type 2 diabetes mellitus with diabetic neuropathy, without long-term current use of insulin Surgical History History of cholecystectomy History of coronary artery stent placement History of hip surgery Hx of removal of ovary Family History Other Coronary artery disease Diabetes Hypertension Social History Smoking Status: Unknown if ever smoked years smoked: 50 smoking status stop date: 2 years ago second hand exposure: Yes alcohol intake: never substance use type: denies use current occupational status: retired Travel in the last 8 weeks: None household members: none housing: apartment lives independently: Yes marital status: current occupational exposures/hazards: No caffeine: Yes ROS Obtained: Yes All systems reviewed & no additional complaints except as documented Physical Exam General General appearance: alert and in no apparent distress Head Head exam: atraumatic and normocephalic Eye Eye exam: Present normal appearance, PERRL and EOMI ENT ENT exam: Present normal oropharynx and normal external ear exam Neck Neck exam: Present normal inspection and full ROM Chest Chest inspection: Present normal inspection and symmetric chest wall rise; Absent tenderness Respiratory Respiratory exam: Present normal lung sounds bilaterally; Absent respiratory distress Cardiovascular Cardiovascular exam: Present regular rate and normal rhythm Abdominal Exam Abdominal exam: Present soft; Absent distention, tenderness or guarding Extremities Exam Extremities exam: Present other (Tenderness to palpation of the right greater trochanter, right anterior thigh. No overlying skin changes. Range of motion of the hip intact with moderate to severe pain. Pelvis stable and only minimally tender.) Back Exam Back exam: Present normal inspection; Absent tenderness Neurological Exam Neurological exam: Present alert and oriented X3; Absent motor sensory deficit Psychiatric Psychiatric exam: Present normal affect and normal mood Skin Skin exam: Present warm, dry and normal color Lymphatic Lymphatic Findings: no adenopathy Medical Decision Making Medical Records Medical records reviewed: Yes I reviewed the patient's medical records. [place] Inquiry Pt receiving controlled substance: No [place] was queried for this patient: No Vital Signs: 07/13/23 23:35 07/14/23 00:31 07/14/23 01:01 Temperature 97.4 F L Temperature Source Oral Pulse Rate 59 L 60 Pulse Rate [Right Brachial] 55 L Respiratory Rate 16 16 18 Blood Pressure 109/44 L 130/43 L Blood Pressure [Right Arm] 101/51 L Blood Pressure Mean 65 72 Blood Pressure Mean [Right Arm] 67 Blood Pressure Source Blood Pressure Source [Right Arm] Automatic Cuff Blood Pressure Position Blood Pressure Position [Right Arm] Sitting 02 Sat by Pulse Oximetry 98 98 98 Oxygen Delivery Method Room Air Room Air Room Air 07/14/23 01:31 07/14/23 02:01 07/14/23 03:10 Temperature Temperature Source Pulse Rate 62 64 66 Pulse Rate [Right Brachial] Respiratory Rate 16 18 16 Blood Pressure 145/49 H 136/45 L 119/47 L Blood Pressure [Right Arm] Blood Pressure Mean 81 75 78 Blood Pressure Mean [Right Arm] Blood Pressure Source Blood Pressure Source [Right Arm] Blood Pressure Position Blood Pressure Position [Right Arm] 02 Sat by Pulse Oximetry 98 98 97 Oxygen Delivery Method Room Air Room Air Room Air 07/14/23 03:31 07/14/23 04:00 07/14/23 04:30 Temperature Temperature Source Pulse Rate 65 64 66 Pulse Rate [Right Brachial] Respiratory Rate 15 18 14 Blood Pressure 119/45 L 124/44 L 115/45 L Blood Pressure [Right Arm] Blood Pressure Mean 69 76 68 Blood Pressure Mean [Right Arm] Blood Pressure Source Blood Pressure Source [Right Arm] Blood Pressure Position Blood Pressure Position [Right Arm] 02 Sat by Pulse Oximetry 98 97 98 Oxygen Delivery Method Room Air Room Air Room Air 07/14/23 05:15 Temperature 98.1 F Temperature Source Oral Pulse Rate 64 Pulse Rate [Right Brachial] Respiratory Rate 18 Blood Pressure 123/49 L Blood Pressure [Right Arm] Blood Pressure Mean Blood Pressure Mean [Right Arm] Blood Pressure Source Automatic Cuff Blood Pressure Source [Right Arm] Blood Pressure Position Sitting Blood Pressure Position [Right Arm] 02 Sat by Pulse Oximetry Oxygen Delivery Method Room Air Lab Data Lab results reviewed: Yes I reviewed the patient's lab results. Lab Results 07/14/23 02:20: WBC 10.8, RBC 3.77 L, Hgb 11.1 L, Hct 34.7 L, MCV 92.0, MCH 29.3, MCHC 31.9, RDW 16.7, Plt Count 309, MPV 7.8, Neut % (Auto) 78.9, Lymph % (Auto) 13.8, Wallace % (Auto) 5.6, Eos % (Auto) 1.3, Baso % (Auto) 0.4, Neut # (Auto) 8.5 H, Lymph # (Auto) 1.5, Wallace # (Auto) 0.6, Eos # (Auto) 0.1, Baso # (Auto) 0.0, PT 10.9, INR 1.01, APTT 28.6, Sodium 139, Potassium 3.8, Chloride 103, Carbon Dioxide 28, Anion Gap 11.8, BUN 42 H, Creatinine 1.80 H, Estimated Creat Clear 28, Estimated GFR 28 L, Est GFR ( Amer) 33 L, Glucose 136 H, Calcium 9.5, Total Bilirubin 0.4, AST 95 H, ALT 115 H, Alkaline Phosphatase 150 H, Total Protein 7.1, Albumin 3.9, Globulin 3.2, Albumin/Globulin Ratio 1.2 07/14/23 02:20 07/14/23 02:20 Orders (Tests/Meds): ED MEDICATIONS Discontinued Medications Generic Name Dose Route Start Last Admin Trade Name Freq PRN Reason Stop Dose Admin Iopamidol 120 ml 07/14/23 03:08 07/14/23 03:09 Iopamidol-370 (76%);100ml Bottle IV 07/14/23 03:09 120 ml ONCE ONE Administration Sodium Chloride 50 ml 07/14/23 03:08 07/14/23 03:09 0.9 % Sodium Chloride 50 Ml Vial IV 07/14/23 03:09 50 ml ONCE ONE Administration Sodium Chloride 10 ml 07/14/23 03:08 07/14/23 03:09 Sodium Chloride 0.9% 10ml Syr (Rad Only) IV 07/14/23 03:09 10 ml ONCE ONE Administration ORDERS Category Date Time Status CT angio femur RT Stat Cat Scan 07/14/23 02:[address] bony pelvis Stat Cat Scan 07/14/23 00:[address] femur RT wo con Stat Cat Scan 07/14/23 00:50 Completed Femur XR right 2 views [XR femur RT 2V] Stat Exams 07/13/23 23:41 Completed Hip XR right minimum 2 views [XR hip RT 2-3V w/pelvis] Exams 07/13/23 23:41 Completed Stat Knee XR right 3 views [XR knee RT 3V] Stat Exams 07/13/23 23:41 Completed CBC w/Auto Diff [Complete Blood Count Auto Diff] Stat Lab 07/14/23 02:20 Completed CMP [Comprehensive Metabolic Panel] Stat Lab 07/14/23 02:20 Completed INR [Prothrombin Time INR] Stat Lab 07/14/23 02:20 Completed PTT [Activated Partial Thrombo Time] Stat Lab 07/14/23 02:20 Completed Medical Decision Narrative: 73-year-old female with history of bilateral hip replacements amongst other comorbidities presents with atraumatic right hip/femur pain. History was obtained interactive discussion with patient, family, chart review. On arrival, patient is [afebrile, hemodynamically stable, satting appropriately, alert, oriented x4, GCS 15], moving all extremities spontaneously. Full physical exam performed and significant for right lower extremity findings as documented above, right hip/femur tenderness palpation, pain with range of motion, intact distal neurovascular function. Differential includes but is not limited to fracture, dislocation, musculoskeletal strain. Patient was given p.o. Tylenol prior to arrival. Declines any other medication medicines at this time. Workup initiated including radiographs of the pelvis, right hip, femur, knee.. On re-evaluation, patient [remains afebrile, HD stable.] Reports continued pain Imaging independently interpreted by me and significant for no evidence of acute fracture or dislocation or hardware malfunction. Does show chronic degenerative changes. Given patient has persistent pain, I am concerned for a radiograph negative occult fracture. Given this, Noncon CT pelvis and femur were obtained to further assess. I do not see any acute fracture on CT. Radiology reports that they see a intramuscular hematoma in the proximal posterior thigh on the noncontrast CT. In the area in question, patient is not significantly tender, there is no swelling. It is not the area of her pain. However, given concern for hematoma in the setting of blood thinner use, we will assess with CTA of the extremity. CTA shows stable/unchanged size of this possible hematoma, certainly shows no active extrav. I am still not entirely convinced that there is a hematoma there given the patient has no pain or tenderness or swelling in this area on exam, instead her pain is localized to the anterior groin/anterior distal femur. After negative CT scan for fracture, patient was again reassessed. She was able to ambulate with her walker with minimal pain, reports that she feels like she is close to back to normal. She and family at bedside reports that they feel that she will be able to perform her ADLs at home. Admission for MRI for CT negative occult hip fracture was considered, but deemed unnecessary due to negative CT, improvement in patient's pain, patient able to ambulate at baseline level. Given concern for hematoma on CT, I provided family with return precautions and instructions for monitoring this area. I also discussed with them return precautions regarding possible occult fracture. Patient was discharged in stable condition. Procedures Risk/Benefits of Procedure(s) Were Explained: Yes Critical Care Critical Care Time Critical Care Time: No
--- NOTE | 2023-07-13 23:41 | XR_ITS ---
PROCEDURE INFORMATION: Exam: XR Right Femur Exam date and time: 07/13/2023 11:48 PM Age: 73 years old Clinical indication: Pain; Thigh; Right; Additional info: Atraumatic hip/femur pain TECHNIQUE: Imaging protocol: Radiologic exam of the right femur. Views: 2 views. COMPARISON: CR Hip R 07/13/2023 11:47 PM FINDINGS: Bones/joints: Status post total hip arthroplasty. There are advanced degenerative changes of the knee. There is heterotopic ossification of the greater trochanter. There is diffuse osseous demineralization. No acute fracture or dislocation is identified. Soft tissues: Unremarkable. IMPRESSION: Degenerative disease and postsurgical change without acute injury identified.
--- NOTE | 2023-07-13 23:41 | XR_ITS ---
PROCEDURE INFORMATION: Exam: XR Right Knee Exam date and time: 07/13/2023 11:50 PM Age: 73 years old Clinical indication: Pain; Knee; Right; Additional info: Atraumatic hip/femur pain TECHNIQUE: Imaging protocol: Radiologic exam of the right knee. Views: 3 views. COMPARISON: CR Femur R 07/13/2023 11:48 PM FINDINGS: Bones/joints: There is tricompartmental osteoarthritis of the knee with loss of joint space, subchondral sclerosis, and productive changes. The osseous structures are intact, with no signs of acute fracture, dislocation, or malalignment. There is no evidence of abnormal bone density or destructive lesions. Soft tissues: The soft tissues appear within normal limits. IMPRESSION: At the time of imaging, the study shows no acute osseous abnormalities but does reveal signs of moderate tricompartmental osteoarthritis.
--- NOTE | 2023-07-13 23:41 | XR_ITS ---
PROCEDURE INFORMATION: Exam: XR Right Hip Exam date and time: 07/13/2023 11:47 PM Age: 73 years old Clinical indication: Hip pain; Right hip; Additional info: Atraumatic hip/femur pain TECHNIQUE: Imaging protocol: Radiologic exam of the right hip. Views: 2 or 3 views hip with pelvis when performed. COMPARISON: CT ABDOMEN PELVIS W CON 01/24/2020 8:20 PM FINDINGS: Bones/joints: Status post bilateral total hip arthroplasty. There is diffuse osseous demineralization. There are partially visualized degenerative changes of the sacroiliac joints and lumbar spine as well as some degenerative disease of the pubic symphysis. No acute fracture or dislocation is identified. Soft tissues: Unremarkable. Gastrointestinal tract: There is large volume stool throughout the colon. IMPRESSION: Degenerative disease and postsurgical change without acute injury identified.
[2023-07-14] VITALS (9 sets, daily range): BP systolic 109–145; BP diastolic 43–49; PULSE 59–66; RESP 14–18; TEMP 36.7; O2SAT 96–98
--- NOTE | 2023-07-14 00:50 | CT_ITS ---
PROCEDURE INFORMATION: Exam: CT Pelvis Without Contrast; Skeletal Exam date and time: 07/14/2023 1:21 AM Age: 73 years old Clinical indication: Hip pain and pelvic pain; Right hip; Additional info: Acute right hip/femur pain TECHNIQUE: Imaging protocol: Computed tomography of the pelvis without contrast. Exam focused on the skeleton. Radiation optimization: All CT scans at this facility use at least one of these dose optimization techniques: automated exposure control; mA and/or kV adjustment per patient size (includes targeted exams where dose is matched to clinical indication); or iterative reconstruction. COMPARISON: 1. PT PET CT Skull Base to Midthigh 05/29/2021 10:[address] ABDOMEN PELVIS W CON 01/24/2020 8:20 PM 3. CR Hip R 07/13/2023 11:47 PM FINDINGS: Reproductive: Reproductive viscera is poorly evaluated due to streak artifact from bilateral hip arthroplasties. Bones/joints: Prior bilateral total hip arthroplasty with associated streak artifact that obscures evaluation of the pelvis. The urinary bladder is not well evaluated due to streak artifact from bilateral hip arthroplasties. Pelvic lymphatic chains are poorly evaluated secondary to streak artifact from bilateral hip arthroplasties. There is diffuse osseous demineralization. The degree of demineralization is such that underlying nondisplaced fractures are difficult to exclude. Soft tissues: There are calcifications within the buttocks which most likely reflect injection granulomas. Other findings: Diverticulum IMPRESSION: 1. No acute fracture or dislocation is seen. 2. Bilateral hip arthroplasties with streak artifact that limits evaluation of the pelvis. 3. The degree of demineralization is such that underlying nondisplaced fractures are difficult to exclude. 4. If clinical concern persists, MRI would be suggested.
--- NOTE | 2023-07-14 00:50 | CT_ITS ---
PROCEDURE INFORMATION: Exam: CT Right Lower Extremity Without Contrast; Thigh Exam date and time: 07/14/2023 1:24 AM Age: 73 years old Clinical indication: Pain; Hip and thigh; Right; Additional info: Acute right hip/femur pain, negative xrays TECHNIQUE: Imaging protocol: CT of the right lower extremity without contrast was performed. Exam focused on the thigh. Radiation optimization: All CT scans at this facility use at least one of these dose optimization techniques: automated exposure control; mA and/or kV adjustment per patient size (includes targeted exams where dose is matched to clinical indication); or iterative reconstruction. COMPARISON: 1. CR XR FEMUR RT 2V 07/13/2023 11:[address] BONY PELVIS 07/14/2023 1:21 AM [address] PT PET CT Skull Base to Midthigh 05/29/2021 10:55 AM FINDINGS: Bones/joints: Status post right total hip arthroplasty. There is severe degenerative disease of the knee. There is diffuse osseous demineralization. Soft tissues: There is a intermuscular posterior thigh hematoma measuring 16.0 x 5.6 x 4.0 cm (image 97 series 4). This is somewhat poorly evaluated due to streak artifact from overlying hip arthroplasty. Vasculature: There are scattered pelvic phleboliths IMPRESSION: 16 cm right posterior thigh intermuscular hematoma. This is somewhat poorly visualized due to streak artifact from the hip arthroplasty.
--- NOTE | 2023-07-14 02:23 | CT_ITS ---
PROCEDURE INFORMATION: Exam: CTA Right Lower Extremity With Contrast Exam date and time: 07/14/2023 3:01 AM Age: 73 years old Clinical indication: Pain; Hip and thigh; Right; Additional info: Acute leg pain, posterior thigh hematoma TECHNIQUE: Imaging protocol: Computed tomographic angiography of the right lower extremity with contrast. 3D rendering (Not supervised by radiologist): MIP and/or 3D reconstructed images were created by the technologist. Radiation optimization: All CT scans at this facility use at least one of these dose optimization techniques: automated exposure control; mA and/or kV adjustment per patient size (includes targeted exams where dose is matched to clinical indication); or iterative reconstruction. Contrast material: ISOVUE; Contrast volume: 120 ml; Contrast route: INTRAVENOUS (IV); COMPARISON: CT FEMUR RT WO CON 07/14/2023 1:24 AM FINDINGS: Tubes, catheters and devices: This causes some beam hardening artifacts. Right femoral/popliteal arteries: No occlusion or significant stenosis. Right infrapopliteal arteries: No occlusion or significant stenosis. Bones/joints: Right hip arthroplasty. Soft tissues: An intramuscular hematoma is seen at the level of the proximal thigh, it is somewhat obscured by beam hardening artifact from the patient's hip prosthesis, measures not significantly changed from the prior study a proximally 15.0 x 6.4 x 4.9 cm., IMPRESSION: Stable appearing right posterior thigh is intramuscular hematoma, not significantly changed from prior study but difficult to fully visualized in measures secondary to artifact from the patient's adjacent hip arthroplasty.
[2023-07-14 02:30] LABS: Basophils % 0.4 % (0.1-2.0); Eosinophils # 0.1 K/mm3 (0.0-0.4); Eosinophils % 1.3 % (0.1-12.0); Hematocrit 34.7 % (37.0-47.0); Hemoglobin 11.1 g/dL (12.2-16.2); Lymphocytes # 1.5 K/mm3 (0.7-4.5); Lymphocytes % 13.8 % (10-50); Mean Corpuscular HGB Conc 31.9 g/dL (31.8-35.4); Mean Corpuscular Hemoglobin 29.3 pg (27.0-31.2); Mean Platelet Volume 7.8 fl (7.4-10.4); Monocytes # 0.6 K/mm3 (0.1-1.0); Monocytes % 5.6 % (1.7-9.3); Neutrophils # 8.5 K/mm3 (1.8-7.8); Neutrophils % 78.9 % (37.0-80.0); Platelet Count 309 K/mm3 (142-424); Red Blood Count 3.77 M/mm3 (4.20-5.40); Red Cell Distribution Width 16.7 % (11.5-17.5); White Blood Count 10.8 K/mm3 (4.8-10.8)
[2023-07-14 02:36] LABS: Alanine Aminotransferase 115 U/L (12-78); Albumin Level 3.9 g/dl (3.5-5.0); Albumin/Globulin Ratio 1.2 (1.1-1.8); Alkaline Phosphatase 150 U/L (38-126); Anion Gap 11.8 mEq/L (5-15); Aspartate Amino Transferase 95 U/L (14-36); Bilirubin,Total 0.4 mg/dl (0.2-1.3); Blood Urea Nitrogen 42 mg/dl (7-17); Calcium 9.5 mg/dl (8.4-10.2); Carbon Dioxide 28 mmol/L (22.0-30.0); Chloride 103 mmol/L (98-107); Creatinine Clearance Estimated 28 mL/min (50-200); Estimated Glomerular Filt Rate 28 ml/min (>60); GFR (African American) 33 ML/MIN (>60); Globulin 3.2 g/dL (1.3-3.2); Glucose 136 mg/dl (74-100); Potassium 3.8 mmoL/L (3.5-5.1); Sodium 139 mmol/L (136-145); Total Protein,Serum 7.1 g/dl (6.3-8.2)
[2023-07-14 02:37] LABS: Activated Partial Thrombo Time 28.6 seconds (22.8-30.6); INR 1.01 (0.9-1.1); Prothrombin Time 10.9 seconds (10.1-12.5)
[2023-07-14] MEDS: SODIUM CHLORIDE 0.9% 10ML SYR (RAD ONLY) 10 ML IV (03:09)
[2023-07-14] MEDS: IOPAMIDOL-370 (76%);100ML BOTTLE 120 ML IV (03:09)
[2023-07-14] MEDS: 0.9 % SODIUM CHLORIDE 50 ML VIAL IV (03:09)
--- NOTE | 2023-07-14 05:09 | PC.NURSE ---
Assisted patient to ambulate with walker. Patient ambulated approximately 50 ft with minimal difficulty or pain. Dr. Zapata to bedside to speak with patient. Patient opted to sit in chair at this time instead of back to stretcher.
== END 2023-07-14 05:18 | disposition home or self-care (01) ==
PROVIDERS: Emergency Provider Emergency Medicine
DX: M25.551 Pain in right hip (principal); E11.40 Type 2 diabetes mellitus with diabetic neuropathy, unspecified; E78.5 Hyperlipidemia, unspecified; J44.9 Chronic obstructive pulmonary disease, unspecified; I11.9 Hypertensive heart disease without heart failure; I25.10 Atherosclerotic heart disease of native coronary artery without angina pectoris; Z95.5 Presence of coronary angioplasty implant and graft; Z79.84 Long term (current) use of oral hypoglycemic drugs
CPT/HCPCS: 72192; 73502; 73552; 73562; 73700; 73706; 80053; 85025; 85610; 85730; 99285; Q9967

== ENCOUNTER 2023-07-24 19:53 | Inpatient (IN) | payer MEDICARE, MEDICAID, SELFPAY ==
[2023-07-24 19:53] VITALS: BP 118/60; PULSE 74; RESP 18; TEMP 39.1; O2SAT 100; BMI 29.2
[2023-07-24 20:01] VITALS: BMI 33.0
--- NOTE | 2023-07-24 20:02 | XR_ITS ---
PROCEDURE INFORMATION: Exam: XR Chest Exam date and time: 07/24/2023 8:03 PM Age: 73 years old Clinical indication: Cough and shortness of breath; Additional info: Pneumonia TECHNIQUE: Imaging protocol: Radiologic exam of the chest. Views: 1 view. COMPARISON: CR XR CHEST 2V 01/04/2023 12:04 PM FINDINGS: Lungs: Low lung volumes. Patchy density in the right perihilar region. Unchanged left lung base calcified granuloma. Pleural spaces: Normal. No pleural effusion. No pneumothorax. Heart/Mediastinum: Prominent cardiac silhouette is likely secondary to low lung volumes. Vasculature: Tortuous atherosclerotic thoracic aorta. Bones/joints: Severe degenerative change of the left glenohumeral joint. IMPRESSION: Patchy density in the right perihilar region. Findings are suspicious for pneumonia.
[2023-07-24 20:07] LABS: Coronavirus 19, PCR Not Detected (NotDetected); Influenza A, PCR Not Detected (NotDetected); Influenza B, PCR Not Detected (NotDetected)
--- NOTE | 2023-07-24 20:09 | HMH.EDGENADL ---
Discharge Plan Disposition Patient Disposition: Admitted Clinical Impressions Clinical Impression: CHF exacerbation, Pneumonia Discharge ED Provider: Royer Hayden General Adult HPI General Chief complaint: Fever Stated complaint: skin hurts, generallly sick Time Seen by Provider: 07/24/23 20:02 History of Present Illness HPI narrative: Please note that above description of symptoms, in this electronic medical record under categorization of recalled from ER triage doctor by RN are reflective of an initial nursing assessment, however, is not reflective of my full history and physical exam that was personally taken and clarified. Consequentially, this preceding description of symptoms, which may include the patient's categorized chief complaint in the EMR, do not reflect my personal clinical impression, and the ultimate description of history of present illness and patient stated complaints should be deferred to this section of the note. Unless stated otherwise or congruent with this section of the note, additional signs, symptoms, or incongruence should be interpreted as inaccurate with my clinical impression. Related Data Home Medications Medication Instructions Recorded Confirmed hydroxyzine HCl 25 mg tablet 25 mg PO BID Anxiety 90 days #180 05/13/18 07/22/23 tabs montelukast 10 mg tablet 10 mg PO DAILY Asthma 11/09/19 07/22/23 (Singulair) nitroglycerin 0.4 mg sublingual 0.4 mg sublingual Q5MINP PRN Chest 07/11/21 07/22/23 tablet Pain empagliflozin 10 mg tablet 10 mg PO DAILY CAD 02/16/22 07/22/23 (Jardiance) metformin 500 mg tablet 500 mg PO PM Diabetes 02/16/22 07/22/23 rosuvastatin 40 mg tablet 40 mg PO DAILY High cholesterol 02/16/22 07/22/23 sitagliptin phosphate 100 mg 100 mg PO DAILYDM Diabetes 02/17/22 07/22/23 tablet (Januvia) tiotropium bromide 1.25 2 puff inhalation DAILY Copd 02/17/22 07/22/23 mcg/actuation mist for inhalation (Spiriva Respimat) amiodarone 200 mg tablet 200 mg PO DAILY Heart Rhythm 05/15/22 07/22/23 clopidogrel 75 mg tablet 75 mg PO DAILY Blood Thinner 05/15/22 07/22/23 ferrous sulfate 325 mg (65 mg 325 mg PO BID Supplement 05/15/22 07/22/23 iron) tablet (Feosol) pantoprazole 40 mg tablet,delayed 40 mg PO DAILY Acid Reflux 05/15/22 07/22/23 release sennosides 8.6 mg tablet (senna) 8.6 mg PO DAILY Constipation 05/15/22 07/22/23 mometasone-formoterol HFA 200 2 puff inhalation BIDRT Copd 06/02/22 07/22/23 mcg-5 mcg/actuation aerosol inhaler (Dulera) albuterol sulfate 90 mcg/actuation 2 puff inhalation QIDP PRN 01/03/23 07/22/23 aerosol inhaler Shortness Of Breath Or Wheezing diltiazem HCl 180 mg 180 mg PO DAILY High Blood Pressure 01/03/23 07/22/23 capsule,extended release 24 hr, controlled (DILT-XR) fluticasone propionate 50 1 spray intranasal DAILYP PRN 01/03/23 07/22/23 mcg/actuation nasal ALLERGIES spray,suspension potassium chloride 10 mEq 10 meq PO DAILY Supplement 04/05/23 07/22/23 tablet,extended release bisoprolol fumarate 10 mg tablet 10 mg PO DAILY Hypertension 05/19/23 07/22/23 furosemide 20 mg tablet 20 mg PO DAILY 05/19/23 07/22/23 primidone 50 mg tablet 100 mg PO BID Tremor(S) 05/19/23 07/22/23 Previous Rx's Medication Instructions Recorded gabapentin 100 mg capsule 100 mg PO BID Neuropathy #60 caps 04/08/23 levothyroxine 75 mcg tablet See Rx Instructions .Route 05/27/23 .COMPLEX #90 tabs Allergies Allergy/AdvReac Type Severity Reaction Status Date / Time alendronate sodium Allergy Intermediate Dizziness Verified 07/22/23 13:23 [From Fosamax] isosorbide Allergy Unknown Verified 07/22/23 13:23 allergy reaction atorvastatin [From Lipitor] AdvReac Intermediate Weakness Verified 07/22/23 13:23 tuberculin,PPD,multi-puncture AdvReac Mild POSITIVE Verified 07/22/23 13:23 REACTOR PFSH PFS Disclaimer: The information contained in this section may have been updated after the patient was seen, as this information can be updated by other users. Medical History (Updated 07/24/23 @ 22:02 by Royer Hayden MD) Onychodystrophy History of smoking 30 or more pack years Anemia Stage 3a chronic kidney disease (CKD) GI bleed Pneumonia Exposure to TB Mediastinal lymphadenopathy Hilar lymphadenopathy Multiple lung nodules on CT Encounter for screening for malignant neoplasm of lung in current smoker with 30 pack year history or greater Smoking greater than 30 pack years Asthma-chronic obstructive pulmonary disease overlap syndrome Asthma COPD mixed type PAF (paroxysmal atrial fibrillation) Atrial fibrillation with rapid ventricular response Acute respiratory failure with hypoxia Pneumonia Pneumonia due to COVID-19 virus Kidney disease Rheumatic fever/heart disease Arthritis Diabetes mellitus, type 2 Sepsis Obesity (BMI 30.0-34.9) Non-STEMI (non-ST elevated myocardial infarction) Multifocal atrial tachycardia Coronary artery disease Hypertension Hyperlipidemia COPD (chronic obstructive pulmonary disease) Tobacco use Ileus, unspecified SIRS (systemic inflammatory response syndrome) Sepsis Gastroenteritis Right lower lobe pneumonia Pincer nail deformity Type 2 diabetes mellitus with diabetic neuropathy, without long-term current use of insulin Bilateral lower extremity edema Diabetic foot Keratosis Onychogryphosis Pre-ulcerative calluses Surgical History Hx of removal of ovary History of cholecystectomy History of hip surgery History of coronary artery stent placement Family History Other Coronary artery disease Diabetes Hypertension Social History Smoking Status: Former smoker tobacco type: cigarettes packs per day: 1 years smoked: 50 smoking status stop date: 2 years ago second hand exposure: Yes alcohol intake: never substance use type: denies use current occupational status: retired Travel in the last 8 weeks: None household members: none housing: apartment lives independently: Yes marital status: current occupational exposures/hazards: No caffeine: Yes ROS Obtained: Yes All systems reviewed & no additional complaints except as documented Physical Exam General General appearance: alert, in no apparent distress and other (Chronically ill) Head Head exam: atraumatic and normocephalic Eye Eye exam: Present normal appearance, PERRL and EOMI ENT ENT exam: Present mucous membranes moist Neck Neck exam: Present normal inspection, full ROM and trachea midline Respiratory Respiratory exam: Present wheezes and other (Intermittently coughing and producing sputum that appears to be brownish-green); Absent normal lung sounds bilaterally, respiratory distress, stridor, accessory muscle use or prolonged expiratory phase Cardiovascular Cardiovascular exam: Present regular rate and normal rhythm Abdominal Exam Abdominal exam: Present soft; Absent distention, tenderness, guarding, rebound or rigidity Extremities Exam Extremities exam: Absent edema Neurological Exam Neurological exam: Present alert, oriented X3, CN II-XII intact and normal gait; Absent motor sensory deficit Skin Skin exam: Present warm and dry; Absent diaphoresis or erythema Medical Decision Making Medical Records Medical records reviewed: Yes I reviewed the patient's medical records. [place] Inquiry Pt receiving controlled substance: No [place] was queried for this patient: No Vital Signs: 07/24/23 19:53 Temperature 102.4 F H Temperature Source Oral Pulse Rate [Left] 74 Respiratory Rate 18 Blood Pressure [Left Arm] 118/60 Blood Pressure Mean [Left Arm] 79 Blood Pressure Source [Left Arm] Automatic Cuff 02 Sat by Pulse Oximetry 100 Oxygen Delivery Method Nasal Cannula Oxygen Flow Rate (LPM) 2 Lab Data Lab Results 07/24/23 17:57: SARS-CoV-2 (PCR) Not detected, Influenza A Untype (PCR) Not detected, Influenza Type B (PCR) Not detected 07/24/23 21:12: WBC 16.6 H, RBC 3.05 L, Hgb 8.9 L, Hct 28.6 L, MCV 93.9, MCH 29.3, MCHC 31.2 L, RDW 17.1, Plt Count 371, MPV 7.9, Neut % (Auto) 87.9 H, Lymph % (Auto) 4.5 L, [place] % (Auto) 6.0, Eos % (Auto) 1.4, Baso % (Auto) 0.2, Neut # (Auto) 14.5 H, Lymph # (Auto) 0.7, [place] # (Auto) 1.0, Eos # (Auto) 0.2, Baso # (Auto) 0.0, Total Counted 100, Neutrophils % (Manual) 89 H, Lymphocytes % (Manual) 2 L, Monocytes % (Manual) 8, Eosinophils % (Manual) 1, Platelet Estimate Normal, Hypochromasia 1+, Anisocytosis 1+, Macrocytosis 1+, Sodium 132 L, Potassium 3.9, Chloride 97 L, Carbon Dioxide 28, Anion Gap 10.9, BUN 44 H, Creatinine 1.90 H, Estimated Creat Clear 33, Estimated GFR 26 L, Est GFR ( Amer) 31 L, Glucose 149 H, Lactate 1.0, Calcium 9.3, Total Bilirubin 0.9, AST 293 H, ALT 268 H, Alkaline Phosphatase 95, Troponin I 0.02, NT-Pro-B Natriuret Pep 27658 H, Total Protein 6.8, Albumin 3.4 L, Globulin 3.4 H, Albumin/Globulin Ratio 1.0 L 07/24/23 21:12 07/24/23 21:12 Orders (Tests/Meds): ED MEDICATIONS Generic Name Dose Route Start Last Admin Trade Name Jefferyq PRN Reason Stop Dose Admin Albuterol/Ipratropium 6 ml 07/24/23 22:01 Ipratropium/Albuterol 3 Ml [facility] 07/24/23 22:02 ONCE ONE Furosemide 40 mg 07/24/23 21:50 07/24/23 21:52 Furosemide 40mg/4ml Vial IV 07/24/23 21:51 40 mg ONCE ONE Administration Azithromycin 500 mg/ Sodium 250 mls @ 250 mls/hr 07/24/23 22:01 Chloride IV 07/24/23 23:00 ONCE ONE Methylprednisolone Sodium Succinate 125 mg 07/24/23 21:37 07/24/23 21:49 Methylprednisolone Sod Succ 125mg Vial IV 07/24/23 21:38 125 mg ONCE ONE Administration Discontinued Medications Generic Name Dose Route Start Last Admin Trade Name Aleshia PRN Reason Stop Dose Admin Acetaminophen 1,000 mg 07/24/23 20:49 07/24/23 20:52 Acetaminophen 1,000mg/100ml Vial IV 07/24/23 20:50 1,000 mg ONCE ONE Administration Albuterol/Ipratropium 6 ml 07/24/23 21:37 Ipratropium/Albuterol 3 Ml [facility] 07/24/23 21:38 ONCE ONE Ceftriaxone Sodium 2 gm/ 100 mls @ 200 mls/hr 07/24/23 20:54 07/24/23 21:50 Sodium Chloride IV 07/24/23 21:23 200 mls/hr ONCE ONE Administration Azithromycin 500 mg/ Sodium 250 mls @ 250 mls/hr 07/24/23 20:54 Chloride IV 07/24/23 20:55 ONCE ONE Sodium Chloride 1,000 mls @ 999 mls/hr 07/24/23 21:34 Sod Chlor 0.9% 1000ml Bag IV 05/03/24 22:34 .Q1H1M ONE ORDERS Category Date Time Status XR chest portable Stat Exams 07/24/23 20:02 Completed Complete Blood Count Auto Diff Stat Lab 07/24/23 21:12 Completed Comprehensive Metabolic Panel Stat Lab 07/24/23 21:12 Completed Lactic Acid Stat Lab 07/24/23 21:12 Completed NT Pro Brain Natriuretic Pep. Stat Lab 07/24/23 21:12 Completed Rapid PCR Covid and Flu A/B Stat Lab 07/24/23 17:57 Completed Troponin I Q3H Lab 07/24/23 23:15 Ordered Troponin I Q3H Lab 07/25/23 02:15 Ordered Troponin I Stat Lab 07/24/23 21:12 Completed UA [Urinalysis and Microscopic] Stat Lab 07/24/23 21:47 Completed Blood Culture Stat Micro 07/24/23 21:12 Received Urine Culture Stat Micro 07/24/23 21:47 Received Medical Decision Narrative: 73-year-old female history of hypertension, hyperlipidemia, CKD, CAD, COPD on home oxygen at night paroxysmal A-fib on metoprolol/diltiazem/Plavix, presenting with fevers, cough, body aches. States these happen 2 days ago. Getting worse. Cough is productive of brown-green sputum. No fevers or chills, but she is having bodyaches. No worsening lower extremity edema, shortness of breath, or any other concerns at this time. Eating and drinking without issue. History was obtained via conversation with patient and EMS. On arrival, patient hemodynamically stable, alert, oriented x4, appropriate, GCS 15, moving all extremities spontaneously, pupils equal and reactive to light. Full physical exam performed and significant for bilateral diffuse wheezes with decreased lung base sounds. No focal breath sounds, but wheezing is worse on the right. No lower extremity edema. Patient nontachycardic, febrile to 102 ?F, 118/60, likely secondary to beta-blockade. Differential includes bronchitis, pneumonia, PE, CHF, ACS, RI, UTI, among others. Patient was given 3 DuoNebs, Solu-Medrol initially for symptomatic management and correction of underlying abnormalities. Workup independently interpreted and significant for leukocytosis 16,000 with neutrophilia, stable CKD with mild DIANELYS creatinine 1.9, BUN 44. Patient's AST and ALT are elevated likely secondary to congestive hepatopathy from CHF. Patient's BNP elevated at 11,900, troponin negative. UA with UTI. Chest x-ray with right middle lobe pneumonia as well as pulmonary edema and cephalization of vessels. See radiology read for full review of final results. EKG independently interpreted and significant for sinus rhythm 68 beats a minute no ST or T wave changes concerning for acute ischemia. Intervals within normal limits. Because of pneumonia and concern for fluid overload on chest x-ray, patient given ceftriaxone, azithromycin, Lasix. Patient's primary care provider was contacted and case was discussed at length, patient to be admitted for CHF and pneumonia. Because patient high risk for clinical decompensation, deemed appropriate for inpatient admission. Results were relayed to patient who voiced understanding and patient was agreeable to inpatient admission and management. Patient was admitted to the hospital for further definitive management. Critical Care Critical Care Time Critical Care Time: No
[2023-07-24] MEDS: ACETAMINOPHEN 1,000MG/100ML VIAL 1000 MG IV (20:52)
--- NOTE | 2023-07-24 21:08 | PC.NURSE ---
continuing to attempt to draw blood for lab orders
[2023-07-24 21:28] LABS: Basophils % 0.2 % (0.1-2.0); Eosinophils # 0.2 K/mm3 (0.0-0.4); Eosinophils % 1.4 % (0.1-12.0); Hematocrit 28.6 % (37.0-47.0); Hemoglobin 8.9 g/dL (12.2-16.2); Lymphocytes # 0.7 K/mm3 (0.7-4.5); Lymphocytes % 4.5 % (10-50); Mean Corpuscular HGB Conc 31.2 g/dL (31.8-35.4); Mean Corpuscular Hemoglobin 29.3 pg (27.0-31.2); Mean Corpuscular Volume 93.9 fl (81-99); Mean Platelet Volume 7.9 fl (7.4-10.4); Neutrophils # 14.5 K/mm3 (1.8-7.8); Neutrophils % 87.9 % (37.0-80.0); Platelet Count 371 K/mm3 (142-424); Red Blood Count 3.05 M/mm3 (4.20-5.40); Red Cell Distribution Width 17.1 % (11.5-17.5); White Blood Count 16.6 K/mm3 (4.8-10.8)
[2023-07-24 21:29] LABS: Chloride 97 mmol/L (98-107); MANUAL DIFFERENTIAL MANUAL DIFFERENTIAL (MANUAL DIFF); Potassium 3.9 mmoL/L (3.5-5.1); Sodium 132 mmol/L (136-145)
[2023-07-24 21:32] LABS: Alanine Aminotransferase 268 U/L (12-78); Albumin Level 3.4 g/dl (3.5-5.0); Alkaline Phosphatase 95 U/L (38-126); Anion Gap 10.9 mEq/L (5-15); Aspartate Amino Transferase 293 U/L (14-36); Bilirubin,Total 0.9 mg/dl (0.2-1.3); Blood Urea Nitrogen 44 mg/dl (7-17); Carbon Dioxide 28 mmol/L (22.0-30.0); Creatinine Clearance Estimated 33 mL/min (50-200); Estimated Glomerular Filt Rate 26 ml/min (>60); GFR (African American) 31 ML/MIN (>60); Globulin 3.4 g/dL (1.3-3.2); Total Protein,Serum 6.8 g/dl (6.3-8.2)
--- NOTE | 2023-07-24 21:32 | PC.NURSE ---
paged dr griggs
[2023-07-24 21:33] LABS: Calcium 9.3 mg/dl (8.4-10.2); Glucose 149 mg/dl (74-100)
--- NOTE | 2023-07-24 21:35 | PC.NURSE ---
dr griggs returned call
--- NOTE | 2023-07-24 21:38 | PC.NURSE ---
call placed to dr griggs, admit to floor. house notified of admit
--- NOTE | 2023-07-24 21:39 | PC.NURSE ---
OBSERVATION ADMISSION TO 208 WITH DX OF PNA TO SERVICE OF DR. ESQUIVEL.
[2023-07-24 21:42] LABS: NT Pro Brain Natriuretic Pep. 11900 pg/mL (0-125)
[2023-07-24 21:44] LABS: Troponin I 0.02 ng/ml (0.00-0.034)
[2023-07-24] MEDS: METHYLPREDNISOLONE SOD SUCC 125MG VIAL 125 MG IV (21:49)
[2023-07-24 21:50] LABS: Anisocytosis 1+; Eosinophils % 1 % (0-3); Hypochromasia 1+; Lymphocytes % 2 % (10-50); Macrocytosis 1+; Monocytes % 8 % (2-9); Neutrophils % 89 % (42-76); Platelet Estimate Normal; Total Cells Counted 100
[2023-07-24] MEDS: CEFTRIAXONE SODIUM 2 GM in 0.9 % SODIUM CHLORIDE 100 ML IV (21:50)
[2023-07-24 21:51] LABS: Microscopic, Urine URINE MICROSCOPIC (MICROSCOPIC)
[2023-07-24 21:52] LABS: Appearance,Urine SL CLOUDY (Clear); Bilirubin,Urine Negative (Negative); Blood, Urine 3+ (Negative); Color,Urine YELLOW (Yellow); Glucose,Urine (UA) 3+ (Negative); Ketones,Urine Negative (Negative); Leukocyte Esterase,Urine 2+ (Negative); Nitrate,Urine POSITIVE (Negative); Protein,Urine 2+ (Negative); Specific Gravity, Urine 1.015 (1.005-1.030); Urobilinogen,Urine 0.2 EU/dl (0.2)
[2023-07-24] MEDS: FUROSEMIDE 40MG/4ML VIAL 40 MG IV (21:52)
[2023-07-24 22:02] LABS: Bacteria,Urine 2+ /lpf; RBC,Urine Occasional #/hpf (0-3); WBC,Urine 50-100 #/hpf (0-3); Yeast,Urine 1+ /lpf
--- NOTE | 2023-07-24 22:05 | ECG_ITS ---
APPROVED REPORT Exam: Resting ECG HR:68 bpm ECG Measurements Heart Rate 68 AXES ND 156 P 67 QRSd 114 QRS 63 QT 424 T 77 QTc 441 Conclusion SINUS RHYTHM Electronically signed by : FELIX RIVERA, 07/25/2023 16:16:01
[2023-07-24 22:17] VITALS: BP 95/57; PULSE 72; RESP 16; O2SAT 72
[2023-07-24 22:20] VITALS: BP 95/57; PULSE 72; RESP 18; TEMP 38.8; O2SAT 100
[2023-07-24] MEDS: IPRATROPIUM/ALBUTEROL 3 ML NEB 6 ML IH (22:25)
[2023-07-24 22:26] VITALS: PULSE 67; O2SAT 90
[2023-07-24] MEDS: AZITHROMYCIN 500 MG in 0.9 % SODIUM CHLORIDE 250 ML 250 MG IV (22:53)
[2023-07-24 23:43] LABS: Troponin I 0.03 ng/ml (0.00-0.034)
[2023-07-25] VITALS (7 sets, daily range): BP systolic 90–120; BP diastolic 47–76; PULSE 70–82; RESP 16–20; TEMP 36.6–37.2; O2SAT 91–97; BMI 28.0
[2023-07-25 03:00] LABS: Troponin I 0.02 ng/ml (0.00-0.034)
--- NOTE | 2023-07-25 05:25 | PC.NURSE ---
Spoke with Dr Moore on the phone, stated to resume all home meds that have been verified with patient and resume antibiotics that patient received a one time dose for. Med list sent to pharmacy
[2023-07-25] MEDS: TIOTROPIUM 18MCG/PUFF INHALER 1 CAP IH (09:14)
[2023-07-25] MEDS: CLOPIDOGREL 75MG TAB 75 MG PO (09:16)
[2023-07-25] MEDS: EMPAGLIFLOZIN 10MG TABLET 10 MG PO (09:16)
[2023-07-25] MEDS: SENNA 8.6MG TABLET 8.6 MG PO (09:16)
[2023-07-25] MEDS: GABAPENTIN 100MG CAPSULE 100 MG PO ×2 (09:16→20:49)
[2023-07-25] MEDS: PANTOPRAZOLE 40MG TABLET 40 MG PO (09:16)
[2023-07-25] MEDS: FUROSEMIDE 20MG TABLET 20 MG PO (09:16)
[2023-07-25] MEDS: POTASSIUM CHLORIDE 10MEQ CAPSULE.ER 10 MEQ PO (09:16)
[2023-07-25] MEDS: hydrOXYzine pamoate 25MG CAPSULE 25 MG PO ×2 (09:16→20:49)
[2023-07-25] MEDS: PRIMIDONE 50MG TABLET 100 MG PO ×2 (09:17→20:49)
[2023-07-25] MEDS: BISOPROLOL 5MG TABLET 10 MG PO (09:17)
[2023-07-25] MEDS: ATORVASTATIN 40MG TABLET 80 MG PO (09:17)
[2023-07-25] MEDS: FERROUS SULFATE 325MG TABLET 325 MG PO ×2 (09:19→20:49)
[2023-07-25] MEDS: AMIODARONE 200MG TABLET 200 MG PO (09:19)
[2023-07-25] MEDS: dilTIAZem ER 180 MG CAPSULE PO (09:24)
--- NOTE | 2023-07-25 11:14 | HMH.PHAINT1 ---
Pharmacy Intervention Comments: MEDICATION RECONCILIATION COMPLETED ON PATIENT USING EXTERNAL FILL HISTORY FROM PHARMACY AND LISTS FROM CARDIOLOGY/NEUROLOGY/PODIATRY OFFICES. -SCOTT PERRY, KELLEED
--- NOTE | 2023-07-25 11:41 | P.HP_ITS ---
History of Present Illness *Admission Date: 07/24/23 *Reason for visit:: Tremors, pneumonia, anemia *History of present illness: 73-year-old female presented in the ER at [facility] due to increasing difficulty with her tremors. On evaluation, however, she was found to be febrile and with evidence of a right middle lobe pneumonia. She has a history of hypertension, hyperlipidemia, CKD, CAD, COPD on home oxygen at night paroxysmal A-fib on metoprolol/diltiazem/Plavix. She did admit to cough anf body aches starting 2 days ago. She reports that her cough is productive of brown-green sputum. She reports no worsening lower extremity edema, shortness of breath, or any other concerns at this time. Eating and drinking without issue. In the ER she was found to have bilateral diffuse wheezes with decreased lung base sounds. Wheezing was worse on the right. No lower extremity edema. She was nontachycardic, but febrile to 102 ?F, 118/60. In the ER she was given 3 DuoNeb treatments and a dose of Solu-Medrol. Present was a leukocytosis of 16,000 with neutrophilia. Her creatinine=1.9, BUN 44. Patient's AST and ALT are elevated likely secondary to congestive hepatopathy from CHF. Patient's BNP elevated at 11,900, troponin negative. UA with UTI. Chest x-ray suggests right middle lobe pneumonia as well as pulmonary edema and cephalization of vessels. See radiology read. EKG independently interpreted and significant for sinus rhythm 68 beats a minute no ST or T wave changes concerning for acute ischemia. In the ER the patient was given ceftriaxone, azithromycin, Lasix. Patient was admitted to the hospital for further definitive management. [facility] Disclaimer: The information contained in this section may have been updated after the patient was seen, as this information can be updated by other users. Medical History (Updated 07/24/23 @ 22:02 by Royer Hayden MD) Onychodystrophy History of smoking 30 or more pack years Anemia Stage 3a chronic kidney disease (CKD) GI bleed Pneumonia Exposure to TB Mediastinal lymphadenopathy Hilar lymphadenopathy Multiple lung nodules on CT Encounter for screening for malignant neoplasm of lung in current smoker with 30 pack year history or greater Smoking greater than 30 pack years Asthma-chronic obstructive pulmonary disease overlap syndrome Asthma COPD mixed type PAF (paroxysmal atrial fibrillation) Atrial fibrillation with rapid ventricular response Acute respiratory failure with hypoxia Pneumonia Pneumonia due to COVID-19 virus Kidney disease Rheumatic fever/heart disease Arthritis Diabetes mellitus, type 2 Sepsis Obesity (BMI 30.0-34.9) Non-STEMI (non-ST elevated myocardial infarction) Multifocal atrial tachycardia Coronary artery disease Hypertension Hyperlipidemia COPD (chronic obstructive pulmonary disease) Tobacco use Ileus, unspecified SIRS (systemic inflammatory response syndrome) Sepsis Gastroenteritis Right lower lobe pneumonia Pincer nail deformity Type 2 diabetes mellitus with diabetic neuropathy, without long-term current use of insulin Bilateral lower extremity edema Diabetic foot Keratosis Onychogryphosis Pre-ulcerative calluses Surgical History Hx of removal of ovary History of cholecystectomy History of hip surgery History of coronary artery stent placement Family History Other Coronary artery disease Diabetes Hypertension Social History Smoking Status: Former smoker tobacco type: cigarettes packs per day: 1 years smoked: 50 smoking status stop date: 2 years ago second hand exposure: Yes alcohol intake: never substance use type: denies use current occupational status: retired Travel in the last 8 weeks: None household members: none housing: apartment lives independently: Yes marital status: current occupational exposures/hazards: No caffeine: Yes Review of Systems Review of Systems Review of systems:: pertinent systems reviewed and negative unless documented below Constitutional Constitutional: Reports system reviewed and no additional complaints, except as documented, Reports body ache(s), Reports chills, Reports fever(s), Denies frequent falls, Reports lethargy and Reports malaise Eyes Eyes: Reports system reviewed and no additional complaints, except as documented ENT Ears, Nose, Mouth, and Throat: Reports system reviewed and no additional complaints, except as documented, Denies dysphagia, Denies mouth lesions and Denies nasal congestion *Cardiovascular Cardiovascular: Reports as per HPI, Denies chest pain, Denies chest pain at rest, Denies chest pain with activity, Reports dyspnea, Reports dyspnea on exertion and Denies leg ulcers (eccymosis of the right posterior thigh. Neg CTA for DVT 07/14/23) *Respiratory Respiratory: Reports change in phlegm color, Reports chest congestion, Reports cough, Reports dyspnea and Reports dyspnea on exertion *Gastrointestinal Gastrointestinal: Reports system reviewed and no additional complaints, except as documented and Denies dysphagia *Genitourinary Genitourinary: Reports system reviewed and no additional complaints, except as documented *Musculoskeletal Musculoskeletal: Reports as per HPI Integumentary/Breasts Skin/Breast: Reports system reviewed and no additional complaints, except as documented *Neurologic Neurologic: Reports as per HPI, Reports localized weakness, Denies frequent falls and Reports tremor(s) (Severe more severe recently. Increasing primidone dose.) Psychiatric Psychiatric: Reports system reviewed and no additional complaints, except as documented Endocrine Endocrine: Reports system reviewed and no additional complaints, except as documented Hematologic/Lymphatic Hematologic/Lymphatic: Reports as per HPI (Patient developed ecchymosis of right posterior thigh. CTA neg for DVT) Allergic/Immunologic Allergic/Immunologic: Reports system reviewed and no additional complaints, except as documented Meds Home Medications and Allergies Home Medications Medication Instructions Recorded Confirmed Type hydroxyzine HCl 25 mg tablet 25 mg PO BID 90 days #180 tabs 05/13/18 07/25/23 History montelukast 10 mg tablet 10 mg PO PM 11/09/19 07/25/23 History (Singulair) nitroglycerin 0.4 mg sublingual 0.4 mg sublingual Q5MINP PRN Chest 07/11/21 07/25/23 History tablet Pain empagliflozin 10 mg tablet 10 mg PO DAILY 02/16/22 07/25/23 History (Jardiance) metformin 500 mg tablet 500 mg PO QPMWITHMEAL 02/16/22 07/25/23 History rosuvastatin 40 mg tablet 40 mg PO DAILY 02/16/22 07/25/23 History sitagliptin phosphate 100 mg 100 mg PO DAILY 02/17/22 07/25/23 History tablet (Januvia) tiotropium bromide 1.25 2 puff inhalation DAILY 02/17/22 07/25/23 History mcg/actuation mist for inhalation (Spiriva Respimat) amiodarone 200 mg tablet 200 mg PO DAILY 05/15/22 07/25/23 History clopidogrel 75 mg tablet 75 mg PO DAILY 05/15/22 07/25/23 History ferrous sulfate 325 mg (65 mg 325 mg PO BID Supplement 05/15/22 07/25/23 History iron) tablet (Feosol) pantoprazole 40 mg tablet,delayed 40 mg PO DAILY 05/15/22 07/25/23 History release sennosides 8.6 mg tablet (senna) 8.6 mg PO DAILY Constipation 05/15/22 07/25/23 History albuterol sulfate 90 mcg/actuation 2 puff inhalation Q6HP PRN 01/03/23 07/25/23 History aerosol inhaler Shortness Of Breath Or Wheezing diltiazem HCl 180 mg 180 mg PO DAILY 01/03/23 07/25/23 History capsule,extended release 24 hr, controlled (DILT-XR) fluticasone propionate 50 1 spray intranasal DAILYP PRN 01/03/23 07/25/23 History mcg/actuation nasal Allergy Symptoms spray,suspension potassium chloride 10 mEq 10 meq PO DAILY 04/05/23 07/25/23 History tablet,extended release gabapentin 100 mg capsule 100 mg PO BID Neuropathy #60 caps 04/08/23 07/25/23 Rx bisoprolol fumarate 10 mg tablet 10 mg PO DAILY 05/19/23 07/25/23 History furosemide 20 mg tablet 20 mg PO BID 05/19/23 07/25/23 History primidone 50 mg tablet 100 mg PO HS 05/19/23 07/25/23 History mometasone-formoterol HFA 200 2 puff inhalation BID 07/24/23 07/25/23 History mcg-5 mcg/actuation aerosol inhaler (Dulera) levothyroxine 75 mcg tablet 75 mcg PO DAILY 07/25/23 07/25/23 History New Prescriptions to Start Prescriptions: Allergies Allergy/AdvReac Type Severity Reaction Status Date / Time alendronate sodium Allergy Intermediate Dizziness Verified 07/22/23 13:23 [From Fosamax] isosorbide Allergy Unknown Verified 07/22/23 13:23 allergy reaction atorvastatin [From Lipitor] AdvReac Intermediate Weakness Verified 07/22/23 13:23 tuberculin,PPD,multi-puncture AdvReac Mild POSITIVE Verified 07/22/23 13:23 REACTOR Exam Data for Last 24 hours Vital signs and Labs for Last 24 Hours: Temp Pulse Resp BP Pulse Ox O2 Del Method O2 Flow Rate 97.8 F 74 16 120/56 L 97 Nasal Cannula 2 07/25/23 07:58 07/25/23 07:58 07/25/23 07:58 07/25/23 07:58 07/25/23 07:58 07/25/23 11:00 07/25/23 11:00 Laboratory Results - last 24 hr 07/24/23 17:57: SARS-CoV-2 (PCR) Not detected, Influenza A Untype (PCR) Not detected, Influenza Type B (PCR) Not detected 07/24/23 21:12: WBC 16.6 H, RBC 3.05 L, Hgb 8.9 L, Hct 28.6 L, MCV 93.9, MCH 29.3, MCHC 31.2 L, RDW 17.1, Plt Count 371, MPV 7.9, Neut % (Auto) 87.9 H, Lymph % (Auto) 4.5 L, [place] % (Auto) 6.0, Eos % (Auto) 1.4, Baso % (Auto) 0.2, Neut # (Auto) 14.5 H, Lymph # (Auto) 0.7, [place] # (Auto) 1.0, Eos # (Auto) 0.2, Baso # (Auto) 0.0, Total Counted 100, Neutrophils % (Manual) 89 H, Lymphocytes % (Manual) 2 L, Monocytes % (Manual) 8, Eosinophils % (Manual) 1, Platelet Estimate Normal, Hypochromasia 1+, Anisocytosis 1+, Macrocytosis 1+, Sodium 132 L, Potassium 3.9, Chloride 97 L, Carbon Dioxide 28, Anion Gap 10.9, BUN 44 H, Creatinine 1.90 H, Estimated Creat Clear 33, Estimated GFR 26 L, Est GFR ( Amer) 31 L, Glucose 149 H, Lactate 1.0, Calcium 9.3, Total Bilirubin 0.9, AST 293 H, ALT 268 H, Alkaline Phosphatase 95, Troponin I 0.02, NT-Pro-B Natriuret Pep 99992 H, Total Protein 6.8, Albumin 3.4 L, Globulin 3.4 H, Albumin/Globulin Ratio 1.0 L 07/24/23 21:47: Urine Color Yellow, Urine Appearance Sl cloudy, Urine pH 6.0, Ur Specific [place] 1.015, Urine Protein 2+, Urine Glucose (UA) 3+, Urine Ketones Negative, Urine Blood 3+, Urine Nitrate Positive, Urine Bilirubin Negative, Urine Urobilinogen 0.2, Ur Leukocyte Esterase 2+ A, Urine RBC Occasional, Urine WBC 50-100, Ur Squamous Epith Cells 5-10, Urine Bacteria 2+, Urine Yeast 1+ 07/24/23 23:13: Troponin I 0.03 07/25/23 02:35: Troponin I 0.02 I & O for Last 24 hours: Intake & Output 07/22/23 07/23/23 07/24/23 07/25/23 11:59 11:59 11:59 11:59 Intake Total 430 / 430 Output Total 2850 / 2850 Balance -2420 / -2420 Weight 148 lb 6.4 oz Constitutional Constitutional: no acute distress (Feels better this morning. Afebrile this morning.) *Routine HEENT Exam Head: Present normocephalic Eye: Present PERRL and normal accommodation ENT: Present mucous membranes dry *Routine Neck Exam Neck: Present normal carotid upstroke; Absent JVD or lymphadenopathy Routine Chest/Breast/Axilla Exam Chest wall: Absent tenderness *Routine Respiratory Exam Respiratory: Present decreased breath sounds, rhonchi (More prominent on the right.), wheezes, able to speak in complete sentences and symmetric chest movement; Absent accessory muscle use *Routine Cardiovascular Exam Cardiovascular: Present RRR and murmur (Aortic) *Routine Abdominal Exam Abdominal: Present soft; Absent tenderness or mass *Routine Rectal Exam Rectal:: deferred *Routine Genitalia Exam Genitalia:: deferred *Routine Extremities Exam Extremities: Present edema (Trace) Comments: [place] ecchymoses on the posterior right thigh above the knee. Routine Back/Spine/Pelvis Exam Back/Spine: Present kyphosis; Absent paraspinal tenderness *Routine Skin Exam Skin: Present ecchymosis (Right posterior thigh.) *Routine Neurological Exam Neurological: Present alert, oriented X3 and tremors (Severe tremors most apparent in the arms and hands.); Absent sensory deficit or motor deficit Routine Psychiatric Exam Psychiatric: Present normal affect and normal thought process Assessment and Plan *Assessment and plan (1) Pneumonia: Status: Acute Category: Medical Code(s): J18.9 - Pneumonia, unspecified organism (2) CHF exacerbation: Status: Acute Category: Medical Code(s): I50.9 - Heart failure, unspecified (3) Elevated liver enzymes: Status: Acute Category: Medical Code(s): R74.8 - Abnormal levels of other serum enzymes (4) Tremor: Problem Comment: Most likely essential tremor. Currently on primidone 100 mg tablet, 1 tablet at night Status: Chronic Category: Medical Code(s): R25.1 - Tremor, unspecified (5) COPD mixed type: Status: Acute Category: Medical Code(s): J44.9 - Chronic obstructive pulmonary disease, unspecified (6) Anemia: Status: Acute Qualifiers: Anemia type: unspecified type Qualified Code(s): D64.9 - Anemia, unspecified Category: Medical Code(s): D64.9 - Anemia, unspecified (7) COPD (chronic obstructive pulmonary disease): Status: Chronic Category: Medical Code(s): J44.9 - Chronic obstructive pulmonary disease, unspecified (8) On amiodarone therapy: Status: Acute Category: Medical Code(s): Z79.899 - Other pen[facility]iary (current) drug therapy (9) PAF (paroxysmal atrial fibrillation): Status: Inactive Category: Medical Code(s): I48.0 - Paroxysmal atrial fibrillation (10) History of smoking 30 or more pack years: Status: Chronic Category: Social Hx Code(s): Z87.891 - Personal history of nicotine dependence (11) Stage 3a chronic kidney disease (CKD): Status: Chronic Category: Medical Code(s): N18.31 - Chronic kidney disease, stage 3a (12) Neck pain: Problem Comment: Cervical spine anterior listhesis, retrolisthesis, neuroforaminal narrowing, mild canal stenosis, AP canal diameter 7 mm Status: Chronic Category: Medical Code(s): M54.2 - Cervicalgia (13) Weakness: Status: Acute Category: Medical Code(s): R53.1 - Weakness (14) Debility: Status: Acute Category: Medical Code(s): R53.81 - Other malaise (15) Coronary artery disease: Status: Chronic Qualifiers: Coronary Disease-Associated Artery/Lesion type: [place] artery [place] vs. transplanted heart: [place] heart Associated angina: with other forms of angina Qualified Code(s): I25.118 - Atherosclerotic heart disease of [place] coronary artery with other forms of angina pectoris Category: Medical Code(s): I25.10 - Atherosclerotic heart disease of [place] coronary artery without angina pectoris Plan IV antibiotics. See medication list.
--- NOTE | 2023-07-25 16:44 | PC.NURSE ---
Pt is currently sitting up in the chair. No complaints stated this shift. Medications administered per may. Pt currently on RA. She wears 2L NC prn @ HS. Lungs noted to have wheezing. Call light within reach.
[2023-07-25] MEDS: MONTELUKAST SODIUM 10MG TAB 10 MG PO (16:59)
[2023-07-25] MEDS: AZITHROMYCIN 500 MG in 0.9 % SODIUM CHLORIDE 250 ML 250 MG IV (20:48)
[2023-07-25] MEDS: CEFTRIAXONE SODIUM 2 GM in 0.9 % SODIUM CHLORIDE 100 ML IV (20:48)
[2023-07-26] VITALS (7 sets, daily range): BP systolic 91–107; BP diastolic 40–67; PULSE 66–76; RESP 18–20; TEMP 36.5–36.8; O2SAT 95–99; BMI 28.7
[2023-07-26] MEDS: TIOTROPIUM 18MCG/PUFF INHALER 1 CAP IH (06:08)
[2023-07-26] MEDS: SITAGLIPTIN 50MG TABLET 25 MG PO (06:31)
[2023-07-26] MEDS: LEVOTHYROXINE 75MCG (0.075MG) TAB 75 MCG PO (06:32)
[2023-07-26 07:20] LABS: Basophils % 0.1 % (0.1-2.0); Eosinophils % 0.1 % (0.1-12.0); Hemoglobin 8.3 g/dL (12.2-16.2); Lymphocytes # 0.8 K/mm3 (0.7-4.5); Lymphocytes % 4.5 % (10-50); Mean Corpuscular HGB Conc 32.1 g/dL (31.8-35.4); Mean Corpuscular Hemoglobin 29.4 pg (27.0-31.2); Mean Corpuscular Volume 91.5 fl (81-99); Mean Platelet Volume 8.7 fl (7.4-10.4); Monocytes # 0.9 K/mm3 (0.1-1.0); Monocytes % 5.2 % (1.7-9.3); Neutrophils # 15.1 K/mm3 (1.8-7.8); Neutrophils % 90.1 % (37.0-80.0); Platelet Count 428 K/mm3 (142-424); Red Blood Count 2.84 M/mm3 (4.20-5.40); Red Cell Distribution Width 17.1 % (11.5-17.5); White Blood Count 16.8 K/mm3 (4.8-10.8)
[2023-07-26 07:21] LABS: MANUAL DIFFERENTIAL MANUAL DIFFERENTIAL (MANUAL DIFF)
--- NOTE | 2023-07-26 07:38 | PC.NURSE ---
pt. rested well this shift, A&OX4, O2 sats remained 98-99% on 2L NC throughout the night, no c/o pain, call button is in reach.
[2023-07-26 07:52] LABS: Alanine Aminotransferase 470 U/L (12-78); Albumin Level 3.3 g/dl (3.5-5.0); Alkaline Phosphatase 163 U/L (38-126); Aspartate Amino Transferase 483 U/L (14-36); Bilirubin,Total 0.4 mg/dl (0.2-1.3); Blood Urea Nitrogen 47 mg/dl (7-17); Carbon Dioxide 31 mmol/L (22.0-30.0); Chloride 95 mmol/L (98-107); Creatinine Clearance Estimated 27 mL/min (50-200); Estimated Glomerular Filt Rate 24 ml/min (>60); GFR (African American) 30 ML/MIN (>60); Globulin 3.3 g/dL (1.3-3.2); Glucose 207 mg/dl (74-100); Sodium 137 mmol/L (136-145); Total Protein,Serum 6.6 g/dl (6.3-8.2)
[2023-07-26] MEDS: ATORVASTATIN 40MG TABLET 80 MG PO (08:00)
[2023-07-26] MEDS: AMIODARONE 200MG TABLET 200 MG PO (08:00)
[2023-07-26] MEDS: CLOPIDOGREL 75MG TAB 75 MG PO (08:00)
[2023-07-26] MEDS: FERROUS SULFATE 325MG TABLET 325 MG PO ×2 (08:01→20:25)
[2023-07-26] MEDS: SENNA 8.6MG TABLET 8.6 MG PO (08:01)
[2023-07-26] MEDS: PRIMIDONE 50MG TABLET 100 MG PO ×2 (08:01→20:26)
[2023-07-26] MEDS: GABAPENTIN 100MG CAPSULE 100 MG PO ×2 (08:01→20:26)
[2023-07-26] MEDS: POTASSIUM CHLORIDE 10MEQ CAPSULE.ER 10 MEQ PO ×4 (08:01→20:29)
[2023-07-26] MEDS: hydrOXYzine pamoate 25MG CAPSULE 25 MG PO ×2 (08:01→20:25)
[2023-07-26] MEDS: FUROSEMIDE 20MG TABLET 20 MG PO (08:01)
[2023-07-26] MEDS: PANTOPRAZOLE 40MG TABLET 40 MG PO (08:01)
[2023-07-26] MEDS: EMPAGLIFLOZIN 10MG TABLET 10 MG PO (08:01)
[2023-07-26 08:16] LABS: Anion Gap 14.1 mEq/L (5-15); Potassium 3.1 mmoL/L (3.5-5.1)
[2023-07-26 08:41] LABS: Hypersegmented Neutrophils 1+; Lymphocytes % 5 % (10-50); Monocytes % 2 % (2-9); Neutrophils % 89 % (42-76); Total Cells Counted 100
[2023-07-26 08:42] LABS: Platelet Estimate Slight Increase
[2023-07-26 08:46] LABS: Anisocytosis 1+
[2023-07-26 08:47] LABS: Hypochromasia 1+
--- NOTE | 2023-07-26 08:50 | EXP.ACUTE.PN ---
Subjective *Date: 07/26/23 *Time: 08:50 Interval history: She is resting comfortably. Currently on room air. She coughs up small amount of sputum with color. She is receiving her nebulizer treatments. Lab review shows hypokalemia at 3.1. Hemoglobin has decreased to 8.3. Medical Exam Vital signs and Labs for Last 24 Hours: Vital Signs Temp Pulse Resp BP Pulse Ox O2 Del Method O2 Flow Rate 07/26/23 08:47 Room Air 07/26/23 08:00 99 Nasal Cannula 2 07/26/23 08:00 Room Air 07/26/23 08:00 97.7 F 72 18 96/51 L 99 Nasal Cannula 2 07/26/23 07:00 Nasal Cannula 2 07/26/23 05:00 Nasal Cannula 2 07/26/23 04:00 98.1 F 66 20 92/40 L 99 Nasal Cannula 2 07/26/23 03:00 Nasal Cannula 2 07/26/23 01:00 Nasal Cannula 2 07/26/23 00:00 97.8 F 75 18 94/42 L 98 Nasal Cannula 2 07/25/23 23:00 Room Air 07/25/23 21:00 Room Air 07/25/23 20:31 Nasal Cannula 2 07/25/23 20:00 Room Air 07/25/23 20:00 98.4 F 79 20 90/47 L 94 L Room Air 07/25/23 18:39 Nasal Cannula 2 07/25/23 18:05 91 L Room Air 07/25/23 16:40 Room Air 07/25/23 16:00 2 07/25/23 15:41 98.3 F 74 17 100/51 L 95 Room Air 07/25/23 15:00 Nasal Cannula 2 07/25/23 13:00 Nasal Cannula 2 07/25/23 12:00 98.9 F 82 18 92/76 L 96 Nasal Cannula 2 07/25/23 11:00 Nasal Cannula 2 Intake and Output 07/25/23 07/26/23 07/26/23 19:59 03:59 11:59 Intake Total 1560 / 2150 590 / 2150 Output Total 1300 / 3500 2200 / 3500 Balance 260 / -1350 590 / -1350 -2200 / -1350 Intake: Intake, Oral Amount 1560 / 1800 240 / 1800 Intake, Total IV Amount 350 / 350 Azithromycin 500 mg In 0.9 % 250 / 250 Sodium Chloride 250 ml @ 250 mls/hr IV Q24H [facility] Rx#:[id number] Ceftriaxone Sodium 2 gm In 0.9 100 / 100 % Sodium Chloride 100 ml @ 200 mls/hr IV Q24H [facility] Rx#:[id number] Output: Output, Urine Amount 1300 / 3500 2200 / 3500 Other: Number of Unmeasured Voids 0 0 Weight 152 lb 3.2 oz Patient Weight 07/26/23 11:59 Weight 152 lb 3.2 oz Laboratory Results - last 24 hr 07/26/23 07:10: WBC 16.8 H, RBC 2.84 L, Hgb 8.3 L, Hct 26.0 L, MCV 91.5, MCH 29.4, MCHC 32.1, RDW 17.1, Plt Count 428 H, MPV 8.7, Neut % (Auto) 90.1 H, Lymph % (Auto) 4.5 L, [place] % (Auto) 5.2, Eos % (Auto) 0.1, Baso % (Auto) 0.1, Neut # (Auto) 15.1 H, Lymph # (Auto) 0.8, [place] # (Auto) 0.9, Eos # (Auto) 0.0, Baso # (Auto) 0.0, Total Counted 100, Neutrophils % (Manual) 89 H, Band Neutrophils % 4.0, Lymphocytes % (Manual) 5 L, Monocytes % (Manual) 2, Hypersegmented Neuts 1+, Platelet Estimate Slight increase, Hypochromasia 1+, Anisocytosis 1+, Sodium 137, Potassium 3.1 L D, Chloride 95 L, Carbon Dioxide 31 H, Anion Gap 14.1, BUN 47 H, Creatinine 2.00 H, Estimated Creat Clear 27, Estimated GFR 24 L, Est GFR ( Amer) 30 L, Glucose 207 H, Calcium 9.0, Total Bilirubin 0.4, AST 483 H* D, ALT 470 H*, Alkaline Phosphatase 163 H, Total Protein 6.6, Albumin 3.3 L, Globulin 3.3 H, Albumin/Globulin Ratio 1.0 L I & O for Labs for Last 24 Hours: Intake & Output 07/23/23 07/24/23 07/25/23 07/26/23 11:59 11:59 11:59 11:59 Intake Total 430 / 910 2150 / 2150 Output Total 2850 / 3550 3500 / 3500 Balance -2420 / -2640 -1350 / -1350 Weight 148 lb 6.4 oz 152 lb 3.2 oz Head: Present normocephalic Neck: Present normal inspection Respiratory: Present wheezes (Over the right midlung field.) and diminished air movement Cardiac: Present Reg Rate and Rhythm GI: Present soft; Absent tenderness Rectal (female): Present deferred (female): Present deferred Extremities: Absent edema Skin: Present intact and pallor Neuro: Present alert and oriented x 3 Assessment and Plan *Assessment and plan (1) Pneumonia: Status: Acute Category: Medical Code(s): J18.9 - Pneumonia, unspecified organism (2) CHF exacerbation: Status: Acute Category: Medical Code(s): I50.9 - Heart failure, unspecified (3) Wheeze: Status: Acute Category: Medical Code(s): R06.2 - Wheezing (4) Weakness: Status: Acute Category: Medical Code(s): R53.1 - Weakness (5) Hypokalemia: Status: Acute Category: Medical Code(s): E87.6 - Hypokalemia (6) Debility: Status: Acute Category: Medical Code(s): R53.81 - Other malaise (7) Tremors of nervous system: Status: Acute Category: Medical Code(s): R25.1 - Tremor, unspecified (8) On amiodarone therapy: Status: Acute Category: Medical Code(s): Z79.899 - Other continuous churn buttermaker (current) drug therapy (9) Smoking greater than 30 pack years: Status: Acute Category: Social Hx Code(s): F17.210 - Nicotine dependence, cigarettes, uncomplicated (10) Asthma-chronic obstructive pulmonary disease overlap syndrome: Status: Acute Category: Medical Code(s): J44.9 - Chronic obstructive pulmonary disease, unspecified (11) Hypertension: Status: Chronic Qualifiers: Hypertension type: primary hypertension Qualified Code(s): I10 - Essential (primary) hypertension Category: Medical Code(s): I10 - Essential (primary) hypertension (12) Coronary artery disease: Status: Chronic Qualifiers: Coronary Disease-Associated Artery/Lesion type: [place] artery [place] vs. transplanted heart: [place] heart Associated angina: with other forms of angina Qualified Code(s): I25.118 - Atherosclerotic heart disease of [place] coronary artery with other forms of angina pectoris Category: Medical Code(s): I25.10 - Atherosclerotic heart disease of [place] coronary artery without angina pectoris Plan P.o. potassium. Continue antibiotics. Chest physiotherapy.
[2023-07-26] MEDS: dilTIAZem ER 180 MG CAPSULE PO (08:58)
[2023-07-26] MEDS: BISOPROLOL 5MG TABLET 10 MG PO (08:58)
[2023-07-26] MEDS: SODIUM CHLORIDE 3% 15ML NEB 3 ML IH (11:06)
[2023-07-26] MEDS: MONTELUKAST SODIUM 10MG TAB 10 MG PO (17:08)
--- NOTE | 2023-07-26 18:31 | PC.NURSE ---
A&OX4. TOLERATING RA WELL T/O SHIFT. HAS BEEN OOB, TO CHAIR MAJORITY OF SHIFT, AMBULATING TO BATHROOM WITH WALKER, TOLERATES VERY WELL. F/C REMOVED THIS SHIFT-TOLERATED WELL AND HAS HAD ADEQUATE U/O SINCE REMOVAL. PT HAS HAD NO C/O PAIN THIS SHIFT, HAS NOT HAD ANY NEEDS. IS VERY INVOLVED IN POC. IS STILL ATTEMPTING TO PRODUCE SPUTUM. VSS.
[2023-07-26] MEDS: CEFTRIAXONE SODIUM 2 GM in 0.9 % SODIUM CHLORIDE 100 ML IV (19:59)
[2023-07-26] MEDS: AZITHROMYCIN 500 MG in 0.9 % SODIUM CHLORIDE 250 ML 250 MG IV (20:32)
[2023-07-26] MEDS: ACETAMINOPHEN 325MG TAB 650 MG PO (22:12)
[2023-07-27] VITALS: BP 82/40; PULSE 75; RESP 18; TEMP 36.8; O2SAT 90
[2023-07-27 04:00] VITALS: BP 111/49; PULSE 74; RESP 18; TEMP 36.6; O2SAT 96; BMI 29.3
--- NOTE | 2023-07-27 04:27 | PC.NURSE ---
Patient has had a good restful shift. Patient has been able to sleep through the shift. on Midnight rounds the patient was stating 89% on RA so RN placed 1L NC on the patient and she came back up into the 90%. Patient normally wears O2 at home while she sleeps. Patient did sat appropriately on RA while awake. Patient has been incontinent of urine multiple times during the shift. Patient only complaint was that her sides were hurting while she was coughing, but has not complained since medicated. No other issues.
[2023-07-27] MEDS: TIOTROPIUM 18MCG/PUFF INHALER 1 CAP IH (06:06)
[2023-07-27] MEDS: SITAGLIPTIN 50MG TABLET 25 MG PO (06:09)
[2023-07-27] MEDS: LEVOTHYROXINE 75MCG (0.075MG) TAB 75 MCG PO (06:09)
[2023-07-27 06:59] LABS: Alanine Aminotransferase 430 U/L (12-78); Albumin Level 3.2 g/dl (3.5-5.0); Alkaline Phosphatase 170 U/L (38-126); Anion Gap 12.6 mEq/L (5-15); Aspartate Amino Transferase 306 U/L (14-36); Bilirubin,Total 0.4 mg/dl (0.2-1.3); Blood Urea Nitrogen 42 mg/dl (7-17); Calcium 9.1 mg/dl (8.4-10.2); Carbon Dioxide 32 mmol/L (22.0-30.0); Chloride 97 mmol/L (98-107); Creatinine Clearance Estimated 29 mL/min (50-200); Estimated Glomerular Filt Rate 26 ml/min (>60); GFR (African American) 31 ML/MIN (>60); Globulin 3.3 g/dL (1.3-3.2); Glucose 184 mg/dl (74-100); Potassium 3.6 mmoL/L (3.5-5.1); Sodium 138 mmol/L (136-145); Total Protein,Serum 6.5 g/dl (6.3-8.2)
[2023-07-27 08:00] VITALS: BP 84/50; PULSE 73; RESP 22; TEMP 36.8; O2SAT 93; O2SAT 94
--- NOTE | 2023-07-27 08:32 | XR_ITS ---
FINAL REPORT CLINICAL HISTORY: Bronchitis COMPARISON: None FINDINGS: Two views of the chest were obtained. The heart size and pulmonary vascularity are within normal limits. The mediastinum is normal. There is a posterior right midlung opacity, consistent with pneumonia. There is no pneumothorax. Severe degenerative changes present in the shoulders bilaterally. IMPRESSION: Posterior right midlung opacity, consistent with pneumonia. Reviewed, Interpreted and Dictated by Shoaib Booth III, MD Transcribed by Jenny Lewis Authenticated and [facility]
--- NOTE | 2023-07-27 08:35 | EXP.ACUTE.PN ---
Subjective *Date: 07/27/23 *Time: 08:35 Interval history: She states that she feels better this morning. Blood pressure is running low.I will DC her diltiazem.PT and OT as ordered. Repeat chest x-ray will be obtained. Medical Exam Vital signs and Labs for Last 24 Hours: Vital Signs Temp Pulse Pulse Resp BP Pulse Ox O2 Del Method 07/27/23 08:00 98.2 F 73 22 84/50 L 93 L Nasal Cannula 07/27/23 07:00 Nasal Cannula 07/27/23 05:00 Nasal Cannula 07/27/23 04:00 97.9 F 74 18 111/49 L 96 Nasal Cannula 07/27/23 03:00 Nasal Cannula 07/27/23 01:00 Nasal Cannula 07/27/23 00:00 Nasal Cannula 07/27/23 00:00 98.2 F 75 18 82/40 L 90 L Room Air 07/26/23 23:00 Room Air 07/26/23 21:00 Room Air 07/26/23 20:00 Room Air 07/26/23 20:00 97.8 F 76 18 91/67 L 96 Nasal Cannula 07/26/23 18:30 Room Air 07/26/23 17:00 Room Air 07/26/23 16:00 96 Room Air 07/26/23 16:00 98.3 F 71 18 107/55 L 96 Room Air 07/26/23 15:00 Room Air 07/26/23 13:00 Room Air 07/26/23 12:00 97.7 F 70 18 91/52 L 95 Room Air 07/26/23 11:06 74 07/26/23 11:00 Room Air 07/26/23 08:47 Room Air O2 Flow Rate 07/27/23 08:00 1 07/27/23 07:00 1 07/27/23 05:00 1 07/27/23 04:00 1 07/27/23 03:00 1 07/27/23 01:00 1 07/27/23 00:00 1 07/27/23 00:00 07/26/23 23:00 07/26/23 21:00 07/26/23 20:00 07/26/23 20:00 2 07/26/23 18:30 07/26/23 17:00 07/26/23 16:00 07/26/23 16:00 07/26/23 15:00 07/26/23 13:00 07/26/23 12:00 07/26/23 11:06 07/26/23 11:00 07/26/23 08:47 Intake and Output 07/26/23 07/27/23 07/27/23 19:59 03:59 11:59 Intake Total 840 / 1125 50 / 1125 235 / 1125 Output Total 0 / 0 Balance 840 / 1125 50 / 1125 235 / 1125 Intake: Intake, Oral Amount 840 / 1125 50 / 1125 235 / 1125 Output: Output, Urine Amount 0 / 0 Other: Number of Unmeasured Voids 1 2 Weight 152 lb 3.208 oz 155 lb 8 oz Patient Weight 07/27/23 11:59 Weight 155 lb 8 oz Laboratory Results - last 24 hr 07/26/23 07:10: Total Counted 100, Neutrophils % (Manual) 89 H, Band Neutrophils % 4.0, Lymphocytes % (Manual) 5 L, Monocytes % (Manual) 2, Hypersegmented Neuts 1+, Platelet Estimate Slight increase, Hypochromasia 1+, Anisocytosis 1+ 07/27/23 06:30: Sodium 138, Potassium 3.6, Chloride 97 L, Carbon Dioxide 32 H, Anion Gap 12.6, BUN 42 H, Creatinine 1.90 H, Estimated Creat Clear 29, Estimated GFR 26 L, Est GFR ( Amer) 31 L, Glucose 184 H, Calcium 9.1, Total Bilirubin 0.4, AST 306 H* D, ALT 430 H*, Alkaline Phosphatase 170 H, Total Protein 6.5, Albumin 3.2 L, Globulin 3.3 H, Albumin/Globulin Ratio 1.0 L I & O for Labs for Last 24 Hours: Intake & Output 07/24/23 07/25/23 07/26/23 07/27/23 11:59 11:59 11:59 11:59 Intake Total 430 / 910 2420 / 2420 1125 / 1125 Output Total 2850 / 3550 4200 / 4200 0 / 0 Balance -2420 / -2640 -1780 / -1780 1125 / 1125 Weight 148 lb 6.4 oz 152 lb 3.2 oz 155 lb 8 oz Head: Present normocephalic Neck: Present normal inspection Respiratory: Present decreased breath sounds and wheezes (On the right.) Cardiac: Present Reg Rate and Rhythm and Systolic Murmur GI: Present soft; Absent tenderness Rectal (female): Present deferred (female): Present deferred Extremities: Absent tenderness or edema Skin: Present intact Neuro: Present alert and oriented x 3 Assessment and Plan *Assessment and plan (1) Pneumonia: Status: Acute Category: Medical Code(s): J18.9 - Pneumonia, unspecified organism (2) CHF exacerbation: Status: Acute Category: Medical Code(s): I50.9 - Heart failure, unspecified (3) Wheeze: Status: Acute Category: Medical Code(s): R06.2 - Wheezing (4) Hypokalemia: Status: Acute Category: Medical Code(s): E87.6 - Hypokalemia (5) History of smoking 30 or more pack years: Status: Chronic Category: Social Hx Code(s): Z87.891 - Personal history of nicotine dependence (6) COPD mixed type: Status: Acute Category: Medical Code(s): J44.9 - Chronic obstructive pulmonary disease, unspecified (7) Coronary artery disease: Status: Chronic Qualifiers: Coronary Disease-Associated Artery/Lesion type: [place] artery [place] vs. transplanted heart: [place] heart Associated angina: with other forms of angina Qualified Code(s): I25.118 - Atherosclerotic heart disease of [place] coronary artery with other forms of angina pectoris Category: Medical Code(s): I25.10 - Atherosclerotic heart disease of [place] coronary artery without angina pectoris (8) Tremor: Problem Comment: Most likely essential tremor Status: Chronic Category: Medical Code(s): R25.1 - Tremor, unspecified Plan: As above.
[2023-07-27] MEDS: PRIMIDONE 50MG TABLET 100 MG PO ×2 (09:55→20:40)
[2023-07-27] MEDS: PANTOPRAZOLE 40MG TABLET 40 MG PO (09:55)
[2023-07-27] MEDS: ATORVASTATIN 40MG TABLET 80 MG PO (09:55)
[2023-07-27] MEDS: CLOPIDOGREL 75MG TAB 75 MG PO (09:55)
[2023-07-27] MEDS: FUROSEMIDE 20MG TABLET 20 MG PO (09:55)
[2023-07-27] MEDS: GABAPENTIN 100MG CAPSULE 100 MG PO ×2 (09:55→20:40)
[2023-07-27] MEDS: hydrOXYzine pamoate 25MG CAPSULE 25 MG PO ×2 (09:55→20:40)
[2023-07-27] MEDS: POTASSIUM CHLORIDE 10MEQ CAPSULE.ER 10 MEQ PO ×2 (09:55→20:40)
[2023-07-27] MEDS: FERROUS SULFATE 325MG TABLET 325 MG PO ×2 (09:55→20:41)
[2023-07-27] MEDS: EMPAGLIFLOZIN 10MG TABLET 10 MG PO (09:55)
[2023-07-27] MEDS: SENNA 8.6MG TABLET 8.6 MG PO (09:55)
[2023-07-27] MEDS: AMIODARONE 200MG TABLET 200 MG PO (09:55)
--- NOTE | 2023-07-27 10:31 | HMH.PTEV ---
Physical Therapy Evaluation Rehab PT IP Evaluation Start: 07/27/23 08:20 Freq: ONCE Status: Active Protocol: Document 07/27/23 10:21 GABY (Rec: 07/27/23 10:31 GABY [id number]) Subjective/History History History Per H&P: 73-year-old female presented in the ER at [facility] due to increasing difficulty with her tremors. On evaluation, however, she was found to be febrile and with evidence of a right middle lobe pneumonia.. . Subjective Subjective PLOF per pt report: IND with ADLs and functional mobility using standard walker. Living alone in shelter home/ apartment. Intermittent supplemental O2 use. New diagnosis of cancer in past 12 No months? Rehab PT IP Eval Objective Appearance Patient Behavior Appropriate,Cooperative Patient Orientation Person,Birthday,Situation Difficulty following instructions none Speech Pattern Clear Ambulation Patient Able to Ambulate Yes Ambulation Observation IP General Gait Pattern Observation No Deviations/Normal Ambulation Distance (feet) 18 Ambulation Assistive Device Standard Walker Ambulation Ability Supervision/Stand by,Contact Guard/Hand Hold Balance Ability to Arise Able, uses arms to help Sitting Balance Steady, safe Standing Balance Steady, wide stance Transfers Sit to Stand Bed Transfer Ability Supervision/Stand by Rehab PT IP prob,goals,plan Problems Date of Evaluation: 07/27/23 Rehab Potential Rehab Potential Innapropriate for Skilled Therapy Discharge Plan PT Discharge Plan Pt safe to d/c home when deemed medically necessary d/t current level of mobility and home set-up. Pt would benefit from HH to address strength and endurance deficits. Pt not appropriate for skilled acute care PT at this time d/t pt?s mobility being at baseline. Eval Complexity Eval Charge Codes 76898 - Moderate Complexity PHYSICIAN CERTIFICATION: I certify the specified therapy services for Trinity Silvestre are required, authorized, and reviewed every 30 days.
--- NOTE | 2023-07-27 10:49 | HMH.OTEV ---
OT Inpatient Evaluation Rehab OT IP Evaluation Start: 07/27/23 08:20 Freq: ONCE Status: Active Protocol: Document 07/27/23 10:46 [facility] (Rec: 07/27/23 10:48 [facility] [id number]) Rehab OT IP Assessment Subjective History Per H&P: 73-year-old female presented in the ER at [facility] due to increasing difficulty with her tremors. On evaluation, however, she was found to be febrile and with evidence of a right middle lobe pneumonia.. . Subjective PLOF per pt report: IND with ADLs and functional mobility using standard walker. Pt had a woman come in weekly to assist with all IADLS. Living alone in group home home/ apartment. Intermittent supplemental O2 use. Objective Patient Orientation Person,Place,Birthday Right Upper Extremity Gross ROM WFL Left Upper Extremity Gross ROM WFL Transfer Training Sit/Stand Transfer Assist Level Supervision/Stand by Chair Transfer Ability Supervision/Stand by Chair Transfer Technique Sit to/from Ambulatory Chair Transfer Assistive Devices Rolling Walker Rehab OT IP prob,goals,plan Problems Date of Evaluation: 07/27/23 Rehab Potential Rehab Potential Innapropriate for Skilled Therapy Discharge Plan OT Discharge Plan Pt safe to d/c home when deemed medically necessary d/t current level of mobility, ADL independence, and home set -up. Pt would benefit from HH to address strength and endurance deficits upon returning home. Eval Complexity Eval Charge Codes 28844 - Low Complexity PHYSICIAN CERTIFICATION: I certify the specified therapy services for Trinity Silvestre are required, authorized, and reviewed every 30 days.
[2023-07-27 12:00] VITALS: BP 114/53; PULSE 72; RESP 20; TEMP 36.6; O2SAT 95
[2023-07-27] MEDS: ALBUTEROL-HFA 90MCG/PUFF INHALER 8GM 2 PUFF IH (12:43)
[2023-07-27 16:00] VITALS: BP 110/53; PULSE 74; RESP 19; TEMP 36.8; O2SAT 95
[2023-07-27] MEDS: MONTELUKAST SODIUM 10MG TAB 10 MG PO (18:36)
[2023-07-27 20:00] VITALS: BP 118/40; PULSE 78; RESP 18; TEMP 36.9; O2SAT 90
[2023-07-27] MEDS: CEFTRIAXONE SODIUM 2 GM in 0.9 % SODIUM CHLORIDE 100 ML IV (20:40)
[2023-07-27] MEDS: AZITHROMYCIN 250MG TABLET 500 MG PO (20:41)
[2023-07-28] VITALS: BP 110/39; PULSE 70; RESP 16; TEMP 36.6; O2SAT 93
[2023-07-28 00:34] LABS: POC Glucose,Bedside 192 (70-110)
[2023-07-28 04:00] VITALS: BP 112/43; PULSE 70; RESP 16; TEMP 36.9; O2SAT 95; BMI 28.7
--- NOTE | 2023-07-28 04:54 | PC.NURSE ---
Pt is alert and oriented. 2L NC HS, O2 sat >90%. Pt has had no complaints this shift. Incontinent of the brief. Pt has rested throughout the night. Call light in reach.
[2023-07-28] MEDS: TIOTROPIUM 18MCG/PUFF INHALER 1 CAP IH (06:10)
[2023-07-28] MEDS: SITAGLIPTIN 50MG TABLET 25 MG PO (06:52)
[2023-07-28] MEDS: LEVOTHYROXINE 75MCG (0.075MG) TAB 75 MCG PO (06:52)
[2023-07-28 08:00] VITALS: BP 111/48; PULSE 74; RESP 22; TEMP 36.8; O2SAT 96
[2023-07-28] MEDS: hydrOXYzine pamoate 25MG CAPSULE 25 MG PO (08:05)
[2023-07-28] MEDS: FERROUS SULFATE 325MG TABLET 325 MG PO (08:05)
[2023-07-28] MEDS: EMPAGLIFLOZIN 10MG TABLET 10 MG PO (08:05)
[2023-07-28] MEDS: GABAPENTIN 100MG CAPSULE 100 MG PO (08:05)
[2023-07-28] MEDS: BISOPROLOL 5MG TABLET 10 MG PO (08:05)
[2023-07-28] MEDS: ATORVASTATIN 40MG TABLET 80 MG PO (08:05)
[2023-07-28] MEDS: CLOPIDOGREL 75MG TAB 75 MG PO (08:05)
[2023-07-28] MEDS: PRIMIDONE 50MG TABLET 100 MG PO (08:05)
[2023-07-28] MEDS: FUROSEMIDE 20MG TABLET 20 MG PO (08:06)
[2023-07-28] MEDS: SENNA 8.6MG TABLET 8.6 MG PO (08:06)
[2023-07-28] MEDS: POTASSIUM CHLORIDE 10MEQ CAPSULE.ER 10 MEQ PO (08:06)
[2023-07-28] MEDS: PANTOPRAZOLE 40MG TABLET 40 MG PO (08:06)
[2023-07-28] MEDS: AMIODARONE 200MG TABLET 200 MG PO (08:06)
--- NOTE | 2023-07-28 08:32 | EXP.PHA.PN ---
Subjective *Date: 07/28/23 *Time: 08:32 Medical Exam Vital signs and Labs for Last 24 Hours: Vital Signs Temp Pulse Resp BP Pulse Ox O2 Del Method O2 Flow Rate 07/28/23 08:20 Nasal Cannula 1 07/28/23 08:00 Nasal Cannula 2 07/28/23 06:58 Nasal Cannula 2 07/28/23 04:53 Nasal Cannula 2 07/28/23 04:00 98.4 F 70 16 112/43 L 95 Nasal Cannula 2 07/28/23 03:00 Nasal Cannula 2 07/28/23 01:00 Nasal Cannula 2 07/28/23 00:00 97.9 F 70 16 110/39 L 93 L Nasal Cannula 2 07/27/23 23:00 Nasal Cannula 2 07/27/23 21:00 Nasal Cannula 2 07/27/23 20:00 Room Air 07/27/23 20:00 98.4 F 78 18 118/40 L 90 L Room Air 07/27/23 19:00 Nasal Cannula 1 07/27/23 17:00 Nasal Cannula 1 07/27/23 16:00 98.2 F 74 19 110/53 L 95 Room Air 07/27/23 15:00 Nasal Cannula 1 07/27/23 13:00 Nasal Cannula 1 07/27/23 12:00 97.8 F 72 20 114/53 L 95 Nasal Cannula 07/27/23 11:00 Nasal Cannula 1 07/27/23 09:00 Nasal Cannula Intake and Output 07/27/23 07/28/23 07/28/23 23:59 07:59 15:59 Intake Total 360 / 915 100 / 100 Output Total 0 / 0 900 / 900 Balance 360 / 915 -800 / -800 Intake: Intake, Oral Amount 360 / 815 Intake, Total IV Amount 100 / 100 Ceftriaxone Sodium 2 gm In 0.9 100 / 100 % Sodium Chloride 100 ml @ 200 mls/hr IV Q24H [facility] Rx#:[id number] Output: Output, Urine Amount 0 / 0 900 / 900 Other: Number of Voids 2 Number of Unmeasured Voids 3 0 Weight 69.037 kg Patient Weight 07/28/23 23:59 Weight 69.037 kg Laboratory Results - last 24 hr 07/28/23 00:27: POC Glucose 192 H I & O for Labs for Last 24 Hours: Intake & Output 05/04/24 07/26/23 07/27/23 07/28/23 23:59 23:59 23:59 23:59 Intake Total 1989 / 2579 1700 / 1750 815 / 915 100 / 100 Output Total 4150 / 4150 2900 / 2900 0 / 0 900 / 900 Balance -2160 / -1570 -1200 / -1150 815 / 915 -800 / -800 Weight 67.313 kg 69.037 kg 70.534 kg 69.037 kg Microbiology Reports for the Last 24 Hours: Microbiology 07/24/23 21:12 Blood Blood Culture - Preliminary 07/24/23 21:12 Blood Blood Culture - Preliminary 07/27/23 12:51 Sputum - Expectorated Sputum Gram Stain - Final The patient's infection will respond to the chosen ABx?: Yes (SPUTUM AND URINE CX PENDING,BLOOD CX NO GROWTH AT 24HR, AFEBRILE OVER 24 HR) Is the patient receiving the right drug, dose, and route?: Yes Could a more targeted ABx be ordered?: No
--- NOTE | 2023-07-28 09:14 | EXP.ACUTE.PN ---
Subjective *Date: 07/28/23 *Time: 09:14 Interval history: She is stable. She says she coughed up a large amount of material last night. Her chest x-ray yesterday was not compared to the previous x-ray. To my eye the chest x-ray appears improved but still has right middle lobe infiltrate. Medical Exam Vital signs and Labs for Last 24 Hours: Vital Signs Temp Pulse Resp BP Pulse Ox O2 Del Method O2 Flow Rate 07/28/23 08:20 Nasal Cannula 1 07/28/23 08:00 98.3 F 74 22 111/48 L 96 Nasal Cannula 2 07/28/23 08:00 Nasal Cannula 2 07/28/23 06:58 Nasal Cannula 2 07/28/23 04:53 Nasal Cannula 2 07/28/23 04:00 98.4 F 70 16 112/43 L 95 Nasal Cannula 2 07/28/23 03:00 Nasal Cannula 2 07/28/23 01:00 Nasal Cannula 2 07/28/23 00:00 97.9 F 70 16 110/39 L 93 L Nasal Cannula 2 07/27/23 23:00 Nasal Cannula 2 07/27/23 21:00 Nasal Cannula 2 07/27/23 20:00 Room Air 07/27/23 20:00 98.4 F 78 18 118/40 L 90 L Room Air 07/27/23 19:00 Nasal Cannula 1 07/27/23 17:00 Nasal Cannula 1 07/27/23 16:00 98.2 F 74 19 110/53 L 95 Room Air 07/27/23 15:00 Nasal Cannula 1 07/27/23 13:00 Nasal Cannula 1 07/27/23 12:00 97.8 F 72 20 114/53 L 95 Nasal Cannula 07/27/23 11:00 Nasal Cannula 1 Intake and Output 07/27/23 07/28/23 07/28/23 19:59 03:59 11:59 Intake Total 530 / 1170 100 / 1170 540 / 1170 Output Total 0 / 900 0 / 900 900 / 900 Balance 530 / 270 100 / 270 -360 / 270 Intake: Intake, Oral Amount 530 / 1070 540 / 1070 Intake, Total IV Amount 100 / 100 Ceftriaxone Sodium 2 gm In 0.9 100 / 100 % Sodium Chloride 100 ml @ 200 mls/hr IV Q24H [facility] Rx#:[id number] Output: Output, Urine Amount 0 / 900 0 / 900 900 / 900 Other: Number of Voids 2 0 Number of Unmeasured Voids 3 1 0 Weight 152 lb 3.2 oz Patient Weight 07/28/23 11:59 Weight 152 lb 3.2 oz Laboratory Results - last 24 hr 07/28/23 00:27: POC Glucose 192 H I & O for Labs for Last 24 Hours: Intake & Output 07/25/23 07/26/23 07/27/23 07/28/23 11:59 11:59 11:59 11:59 Intake Total 430 / 910 2420 / 2420 1125 / 1125 1170 / 1170 Output Total 2850 / 3550 4200 / 4200 0 / 0 900 / 900 Balance -2420 / -2640 -1780 / -1780 1125 / 1125 270 / 270 Weight 148 lb 6.4 oz 152 lb 3.2 oz 155 lb 8 oz 152 lb 3.2 oz Microbiology Reports for the Last 24 Hours: Microbiology 07/27/23 12:51 Sputum - Expectorated Sputum Gram Stain - Final 07/27/23 12:51 Sputum - Expectorated Sputum Sputum Culture - Preliminary 07/24/23 21:12 Blood Blood Culture - Preliminary 07/24/23 21:12 Blood Blood Culture - Preliminary Head: Present normocephalic Neck: Present normal inspection Respiratory: Present decreased breath sounds and rhonchi (On the right but they have decreased.); Absent respiratory distress Cardiac: Present Reg Rate and Rhythm GI: Present soft; Absent distention or tenderness Rectal (female): Present deferred (female): Present deferred Extremities: Absent edema Skin: Present intact Neuro: Present alert and oriented x 3 Assessment and Plan *Assessment and plan (1) Hypokalemia: Status: Acute Category: Medical Code(s): E87.6 - Hypokalemia (2) Pneumonia: Status: Acute Category: Medical Code(s): J18.9 - Pneumonia, unspecified organism (3) CHF exacerbation: Status: Acute Category: Medical Code(s): I50.9 - Heart failure, unspecified (4) Chronic respiratory failure with hypoxia: Problem Comment: PSG 06/08/2023 at [facility] did not show significant RANDY. Hypoxemia but did not qualify for O2 supplementation during the test. She is already on oxygen at night and as needed during daytime. Status: Acute Category: Medical Code(s): J96.11 - Chronic respiratory failure with hypoxia (5) Cervical spinal stenosis: Problem Comment: Awaiting cervical spine MRI requested by neurosurgery, [facility] Status: Chronic Category: Medical Code(s): M48.02 - Spinal stenosis, cervical region (6) History of smoking 30 or more pack years: Status: Chronic Category: Social Hx Code(s): Z87.891 - Personal history of nicotine dependence (7) Weakness: Status: Acute Category: Medical Code(s): R53.1 - Weakness (8) Debility: Status: Acute Category: Medical Code(s): R53.81 - Other malaise (9) Tremors of nervous system: Status: Acute Category: Medical Code(s): R25.1 - Tremor, unspecified (10) Coronary artery disease: Status: Chronic Qualifiers: Coronary Disease-Associated Artery/Lesion type: [place] artery [place] vs. transplanted heart: [place] heart Associated angina: with other forms of angina Qualified Code(s): I25.118 - Atherosclerotic heart disease of [place] coronary artery with other forms of angina pectoris Category: Medical Code(s): I25.10 - Atherosclerotic heart disease of [place] coronary artery without angina pectoris (11) COPD (chronic obstructive pulmonary disease): Status: Chronic Category: Medical Code(s): J44.9 - Chronic obstructive pulmonary disease, unspecified (12) Type 2 diabetes mellitus with diabetic neuropathy, without long-term current use of insulin: Status: Chronic Category: Medical Code(s): E11.40 - Type 2 diabetes mellitus with diabetic neuropathy, unspecified Plan Possible discharge today.
--- NOTE | 2023-07-28 09:55 | SW/DCPLANNER ---
Addendum entered by Evelyn Guzman 07/29/23 09:22: Per [facility]/ [facility] services will start this week for this patient. Addendum entered by Evelyn Guzman 07/29/23 08:20: Patient information/order has been faxed to [facility]/ [facility]. Original Note: I spoke w/ this patient regarding plans once medically stable for discharge. PT/OT recommended home w/ home health services. Patient is agreeable to home health services and prefers to use [facility]. I will set up home health services once patient is medically stable for discharge. Discharge date is unknown at this time. Patient stated that she has night time O2 from [facility].
[2023-07-28 10:02] LABS: Basophils # 0.1 K/mm3 (0-0.2); Basophils % 0.3 % (0.1-2.0); Eosinophils # 0.1 K/mm3 (0.0-0.4); Eosinophils % 0.4 % (0.1-12.0); Hematocrit 27.8 % (37.0-47.0); Hemoglobin 8.8 g/dL (12.2-16.2); Lymphocytes # 0.9 K/mm3 (0.7-4.5); Mean Corpuscular HGB Conc 31.8 g/dL (31.8-35.4); Mean Corpuscular Hemoglobin 29.4 pg (27.0-31.2); Mean Corpuscular Volume 92.6 fl (81-99); Mean Platelet Volume 8.1 fl (7.4-10.4); Monocytes # 0.7 K/mm3 (0.1-1.0); Monocytes % 4.9 % (1.7-9.3); Neutrophils # 13.1 K/mm3 (1.8-7.8); Neutrophils % 88.3 % (37.0-80.0); Platelet Count 410 K/mm3 (142-424); Red Blood Count 3.01 M/mm3 (4.20-5.40); Red Cell Distribution Width 17.1 % (11.5-17.5); White Blood Count 14.8 K/mm3 (4.8-10.8)
[2023-07-28 10:04] LABS: Chloride 98 mmol/L (98-107)
[2023-07-28 10:05] LABS: Potassium 3.9 mmoL/L (3.5-5.1); Sodium 132 mmol/L (136-145)
[2023-07-28 10:07] LABS: Alanine Aminotransferase 296 U/L (12-78); Anion Gap 8.9 mEq/L (5-15); Aspartate Amino Transferase 146 U/L (14-36); Blood Urea Nitrogen 35 mg/dl (7-17); Carbon Dioxide 29 mmol/L (22.0-30.0); Creatinine Clearance Estimated 36 mL/min (50-200); Estimated Glomerular Filt Rate 34 ml/min (>60); GFR (African American) 41 ML/MIN (>60)
[2023-07-28 10:08] LABS: Albumin Level 2.8 g/dl (3.5-5.0); Albumin/Globulin Ratio 0.9 (1.1-1.8); Alkaline Phosphatase 128 U/L (38-126); Bilirubin,Total 0.4 mg/dl (0.2-1.3); Calcium 8.8 mg/dl (8.4-10.2); Globulin 3.1 g/dL (1.3-3.2); Glucose 335 mg/dl (74-100); Total Protein,Serum 5.9 g/dl (6.3-8.2)
[2023-07-28 10:10] LABS: MANUAL DIFFERENTIAL MANUAL DIFFERENTIAL (MANUAL DIFF)
[2023-07-28 12:00] VITALS: BP 96/52; PULSE 69; RESP 20; TEMP 36.7; O2SAT 94
[2023-07-28 12:31] LABS: Lymphocytes % 6 % (10-50); Monocytes % 5 % (2-9); Neutrophils % 89 % (42-76); Total Cells Counted 100
[2023-07-28 12:37] LABS: Platelet Estimate Normal; RBC Morphology Normal
--- NOTE | 2023-07-28 15:38 | PC.NURSE ---
Pt. is aox4, on 2l nc at , [facility] and has a brief on for inc, 20g L FA SL,
[2023-07-28 16:00] VITALS: BP 109/44; PULSE 73; RESP 16; TEMP 36.8; O2SAT 95
[2023-07-28] MEDS: MONTELUKAST SODIUM 10MG TAB 10 MG PO (16:53)
--- NOTE | 2023-07-28 19:38 | PC.NURSE ---
pt left floor at this time
--- NOTE | 2023-07-28 22:47 | EXP.DC.SUM ---
General Admission date:: 07/24/23 Discharge date: 07/28/23 HPI HPI HPI: 73-year-old female presented in the ER at [facility] due to increasing difficulty with her tremors. On evaluation, however, she was found to be febrile and with evidence of a right middle lobe pneumonia. She has a history of hypertension, hyperlipidemia, CKD, CAD, COPD on home oxygen at night paroxysmal A-fib on metoprolol/diltiazem/Plavix. She did admit to cough anf body aches starting 2 days ago. She reports that her cough is productive of brown-green sputum. She reports no worsening lower extremity edema, shortness of breath, or any other concerns at this time. Eating and drinking without issue. In the ER she was found to have bilateral diffuse wheezes with decreased lung base sounds. Wheezing was worse on the right. No lower extremity edema. She was nontachycardic, but febrile to 102 ?F, 118/60. In the ER she was given 3 DuoNeb treatments and a dose of Solu-Medrol. Present was a leukocytosis of 16,000 with neutrophilia. Her creatinine=1.9, BUN 44. Patient's AST and ALT are elevated likely secondary to congestive hepatopathy from CHF. Patient's BNP elevated at 11,900, troponin negative. UA with UTI. Chest x-ray suggests right middle lobe pneumonia as well as pulmonary edema and cephalization of vessels. See radiology read. EKG independently interpreted and significant for sinus rhythm 68 beats a minute no ST or T wave changes concerning for acute ischemia. In the ER the patient was given ceftriaxone, azithromycin, Lasix. Patient was admitted to the hospital for further definitive management. Hospital Course Hospital Course Hospital Course: Patient was admitted and started on IV antibiotics. She was started on neb treatments and was able to be weaned to room air by 07/26/2023. She was hypokalemic and this was replaced. She did begin feeling better but became hypotensive. Her diltiazem was discontinued. PT and OT were ordered as was a repeat chest x-ray. Her chest x-ray was not compared to the previous x-ray by radiology but Dr. Moore felt the x-ray had improved slightly. He still saw a right middle lobe infiltrate. Her echo showed an EF of 55%. Her preliminary blood culture showed no growth. Her urine culture is still pending. Her sputum culture is also still pending. She was stable to be discharged home on cefdinir and will follow up with Dr. Moore in the office. Exam Data for Last 24 hours Vital signs and Labs for Last 24 Hours: Temp Pulse Resp BP Pulse Ox O2 Del Method O2 Flow Rate 98.2 F 73 16 109/44 L 95 Nasal Cannula 2 07/28/23 16:00 07/28/23 16:00 07/28/23 16:00 07/28/23 16:00 07/28/23 16:00 07/28/23 19:24 07/28/23 19:24 FiO2 28 07/28/23 19:24 Laboratory Results - last 24 hr 07/28/23 00:27: POC Glucose 192 H 07/28/23 09:50: WBC 14.8 H, RBC 3.01 L, Hgb 8.8 L, Hct 27.8 L, MCV 92.6, MCH 29.4, MCHC 31.8, RDW 17.1, Plt Count 410, MPV 8.1, Neut % (Auto) 88.3 H, Lymph % (Auto) 6.0 L, [place] % (Auto) 4.9, Eos % (Auto) 0.4, Baso % (Auto) 0.3, Neut # (Auto) 13.1 H, Lymph # (Auto) 0.9, [place] # (Auto) 0.7, Eos # (Auto) 0.1, Baso # (Auto) 0.1, Total Counted 100, Neutrophils % (Manual) 89 H, Lymphocytes % (Manual) 6 L, Monocytes % (Manual) 5, Platelet Estimate Normal, RBC Morphology Normal, Sodium 132 L, Potassium 3.9, Chloride 98, Carbon Dioxide 29, Anion Gap 8.9, BUN 35 H, Creatinine 1.50 H D, Estimated Creat Clear 36, Estimated GFR 34 L, Est GFR ( Amer) 41 L D, Glucose 335 H, Calcium 8.8, Total Bilirubin 0.4, AST 146 H D, ALT 296 H D, Alkaline Phosphatase 128 H, Total Protein 5.9 L, Albumin 2.8 L D, Globulin 3.1, Albumin/Globulin Ratio 0.9 L I & O for Last 24 hours: Intake & Output 07/26/23 07/27/23 07/28/23 07/29/23 11:59 11:59 11:59 11:59 Intake Total 2420 / 2420 1125 / 1125 1170 / 1170 420 / 420 Output Total 4200 / 4200 0 / 0 1900 / 2700 800 / 800 Balance -1780 / -1780 1125 / 1125 -730 / -1530 -380 / -380 Weight 152 lb 3.2 oz 155 lb 8 oz 152 lb 3.2 oz Microbiology Reports for the Last 24 Hours: Microbiology 07/24/23 21:47 Urine,Clean Catch Urine Culture - Preliminary 07/27/23 12:51 Sputum - Expectorated Sputum Gram Stain - Final 07/27/23 12:51 Sputum - Expectorated Sputum Sputum Culture - Preliminary Narrative: Constitutional Constitutional: no acute distress (Feels better this morning. Afebrile this morning.) *Routine HEENT Exam Head: Present normocephalic Eye: Present PERRL and normal accommodation ENT: Present mucous membranes dry *Routine Neck Exam Neck: Present normal carotid upstroke; Absent JVD or lymphadenopathy Routine Chest/Breast/Axilla Exam Chest wall: Absent tenderness *Routine Respiratory Exam Respiratory: Present decreased breath sounds, rhonchi (More prominent on the right.), wheezes, able to speak in complete sentences and symmetric chest movement; Absent accessory muscle use *Routine Cardiovascular Exam Cardiovascular: Present RRR and murmur (Aortic) *Routine Abdominal Exam Abdominal: Present soft; Absent tenderness or mass *Routine Rectal Exam Rectal:: deferred *Routine Genitalia Exam Genitalia:: deferred *Routine Extremities Exam Extremities: Present edema (Trace) Comments: Centimeter ecchymoses on the posterior right thigh above the knee. Routine Back/Spine/Pelvis Exam Back/Spine: Present kyphosis; Absent paraspinal tenderness *Routine Skin Exam Skin: Present ecchymosis (Right posterior thigh.) *Routine Neurological Exam Neurological: Present alert, oriented X3 and tremors (Severe tremors most apparent in the arms and hands.); Absent sensory deficit or motor deficit Routine Psychiatric Exam Psychiatric: Present normal affect and normal thought process Results Data Completed and Pending Labs on day of discharge: Labs from last 24 hours 07/28/23 07/28/23 09:50 00:27 WBC 14.8 H RBC 3.01 L Hgb 8.8 L Hct 27.8 L MCV 92.6 MCH 29.4 MCHC 31.8 RDW 17.1 Plt Count 410 MPV 8.1 Neut % (Auto) 88.3 H Lymph % (Auto) 6.0 L [place] % (Auto) 4.9 Eos % (Auto) 0.4 Baso % (Auto) 0.3 Neut # (Auto) 13.1 H Lymph # (Auto) 0.9 [place] # (Auto) 0.7 Eos # (Auto) 0.1 Baso # (Auto) 0.1 Total Counted 100 Neutrophils % (Manual) 89 H Lymphocytes % (Manual) 6 L Monocytes % (Manual) 5 Platelet Estimate Normal RBC Morphology Normal Sodium 132 L Potassium 3.9 Chloride 98 Carbon Dioxide 29 Anion Gap 8.9 BUN 35 H Creatinine 1.50 H D Estimated Creat Clear 36 Estimated GFR 34 L Est GFR ( Amer) 41 L D Glucose 335 H POC Glucose 192 H Calcium 8.8 Total Bilirubin 0.4 AST 146 H D ALT 296 H D Alkaline Phosphatase 128 H Total Protein 5.9 L Albumin 2.8 L D Globulin 3.1 Albumin/Globulin Ratio 0.9 L Preliminary micro results at discharge 07/24/23 21:47 Urine Culture - Preliminary Urine,Clean Catch 07/27/23 12:51 Sputum Culture - Preliminary Sputum - Expectorated Sputum 07/24/23 21:12 Blood Culture - Preliminary Blood 07/24/23 21:12 Blood Culture - Preliminary Blood DS: Diagnosis Discharge Diagnosis (1) Hypokalemia: Status: Acute Code(s): E87.6 - Hypokalemia (2) Pneumonia: Status: Acute Code(s): J18.9 - Pneumonia, unspecified organism (3) CHF exacerbation: Status: Acute Code(s): I50.9 - Heart failure, unspecified (4) Chronic respiratory failure with hypoxia: Status: Acute Code(s): J96.11 - Chronic respiratory failure with hypoxia Problem details: PSG 06/08/2023 at [facility] did not show significant RANDY. Hypoxemia but did not qualify for O2 supplementation during the test. She is already on oxygen at night and as needed during daytime. (5) Cervical spinal stenosis: Status: Chronic Code(s): M48.02 - Spinal stenosis, cervical region Problem details: Awaiting cervical spine MRI requested by neurosurgery, [facility] (6) History of smoking 30 or more pack years: Status: Chronic Code(s): Z87.891 - Personal history of nicotine dependence (7) Weakness: Status: Acute Code(s): R53.1 - Weakness (8) Debility: Status: Acute Code(s): R53.81 - Other malaise (9) Tremors of nervous system: Status: Acute Code(s): R25.1 - Tremor, unspecified (10) Coronary artery disease: Status: Chronic Code(s): I25.10 - Atherosclerotic heart disease of [place] coronary artery without angina pectoris Qualifiers: Coronary Disease-Associated Artery/Lesion type: [place] artery [place] vs. transplanted heart: [place] heart Associated angina: with other forms of angina Qualified Code(s): I25.118 - Atherosclerotic heart disease of [place] coronary artery with other forms of angina pectoris (11) COPD (chronic obstructive pulmonary disease): Status: Chronic Code(s): J44.9 - Chronic obstructive pulmonary disease, unspecified (12) Type 2 diabetes mellitus with diabetic neuropathy, without long-term current use of insulin: Status: Chronic Code(s): E11.40 - Type 2 diabetes mellitus with diabetic neuropathy, unspecified Meds Home Medications and Allergies Home Medications Medication Instructions Recorded Confirmed Type hydroxyzine HCl 25 mg tablet 25 mg PO BID 90 days #180 tabs 05/13/18 07/25/23 History montelukast 10 mg tablet 10 mg PO PM 11/09/19 07/25/23 History (Singulair) nitroglycerin 0.4 mg sublingual 0.4 mg sublingual Q5MINP PRN Chest 07/11/21 07/25/23 History tablet Pain empagliflozin 10 mg tablet 10 mg PO DAILY 02/16/22 07/25/23 History (Jardiance) metformin 500 mg tablet 500 mg PO QPMWITHMEAL 02/16/22 07/25/23 History rosuvastatin 40 mg tablet 40 mg PO DAILY 02/16/22 07/25/23 History sitagliptin phosphate 100 mg 100 mg PO DAILY 02/17/22 07/25/23 History tablet (Januvia) tiotropium bromide 1.25 2 puff inhalation DAILY 02/17/22 07/25/23 History mcg/actuation mist for inhalation (Spiriva Respimat) amiodarone 200 mg tablet 200 mg PO DAILY 05/15/22 07/25/23 History clopidogrel 75 mg tablet 75 mg PO DAILY 05/15/22 07/25/23 History ferrous sulfate 325 mg (65 mg 325 mg PO BID Supplement 05/15/22 07/25/23 History iron) tablet (Feosol) pantoprazole 40 mg tablet,delayed 40 mg PO DAILY 05/15/22 07/25/23 History release sennosides 8.6 mg tablet (senna) 8.6 mg PO DAILY Constipation 05/15/22 07/25/23 History albuterol sulfate 90 mcg/actuation 2 puff inhalation Q6HP PRN 01/03/23 07/25/23 History aerosol inhaler Shortness Of Breath Or Wheezing diltiazem HCl 180 mg 180 mg PO DAILY 01/03/23 07/25/23 History capsule,extended release 24 hr, controlled (DILT-XR) fluticasone propionate 50 1 spray intranasal DAILYP PRN 01/03/23 07/25/23 History mcg/actuation nasal Allergy Symptoms spray,suspension potassium chloride 10 mEq 10 meq PO DAILY 04/05/23 07/25/23 History tablet,extended release gabapentin 100 mg capsule 100 mg PO BID Neuropathy #60 caps 04/08/23 07/25/23 Rx bisoprolol fumarate 10 mg tablet 10 mg PO DAILY 05/19/23 07/25/23 History furosemide 20 mg tablet 20 mg PO BID 05/19/23 07/25/23 History primidone 50 mg tablet 100 mg PO HS 05/19/23 07/25/23 History mometasone-formoterol HFA 200 2 puff inhalation BID 07/24/23 07/25/23 History mcg-5 mcg/actuation aerosol inhaler (Dulera) levothyroxine 75 mcg tablet 75 mcg PO DAILY 07/25/23 07/25/23 History cefdinir 300 mg capsule 300 mg PO BID pneumonia #20 caps 07/28/23 Rx New Prescriptions to Start Prescriptions: Jack Liang Allergies Allergy/AdvReac Type Severity Reaction Status Date / Time alendronate sodium Allergy Intermediate Dizziness Verified 07/22/23 13:23 [From Fosamax] isosorbide Allergy Unknown Verified 07/22/23 13:23 allergy reaction atorvastatin [From Lipitor] AdvReac Intermediate Weakness Verified 07/22/23 13:23 tuberculin,PPD,multi-puncture AdvReac Mild POSITIVE Verified 07/22/23 13:23 REACTOR Discharge Plan Disposition Patient Disposition: Home, Self-Care Condition: Fair Discharge Order Discharge Orders: Discharge Order (Routine); Ordered 07/28/23 Ordered By: Jack Moroe Follow up Plan Follow up with: Jack Moore MD [Primary Care Provider] - 08/03/23 (Please call for your follow up appt. ) Prescriptions/Medication Reconciliation: New cefdinir 300 mg capsule 300 mg PO BID Qty: 20 0RF Continued hydroxyzine HCl 25 mg tablet 25 mg PO BID 90 Days Qty: 180 montelukast [Singulair] 10 mg tablet 10 mg PO PM sennosides [senna] 8.6 mg tablet 8.6 mg PO DAILY clopidogrel 75 mg tablet 75 mg PO DAILY pantoprazole 40 mg tablet,delayed release (DR/EC) 40 mg PO DAILY ferrous sulfate [Feosol] 325 mg (65 mg iron) tablet 325 mg PO BID amiodarone 200 mg tablet 200 mg PO DAILY furosemide 20 mg tablet 20 mg PO BID primidone 50 mg tablet 100 mg PO HS nitroglycerin 0.4 MG tablet, sublingual 0.4 mg SL Q5MINP PRN (Reason: Chest Pain) potassium chloride 10 mEq tablet extended release 10 meq PO DAILY gabapentin 100 MG capsule 100 mg PO BID Qty: 60 0RF metformin 500 mg tablet 500 mg PO QPMWITHMEAL rosuvastatin 40 mg tablet 40 mg PO DAILY Jardiance 10 mg tablet 10 mg PO DAILY Spiriva Respimat 1.25 mcg/actuation mist 2 puff IH DAILY Januvia 100 mg tablet 100 mg PO DAILY bisoprolol fumarate 10 mg tablet 10 mg PO DAILY diltiazem HCl [DILT-XR] 180 mg capsule,ext.rel 24h degradable 180 mg PO DAILY albuterol sulfate 90 mcg/actuation HFA aerosol inhaler 2 puff INHALATION Q6HP PRN (Reason: Shortness Of Breath Or Wheezing) fluticasone propionate 50 mcg/actuation spray,suspension 1 spray INTRANASAL DAILYP PRN (Reason: Allergy Symptoms) Dulera 200-5 mcg/actuation HFA aerosol inhaler 2 puff INHALATION BID levothyroxine 75 mcg tablet 75 mcg PO DAILY Problem Reconciliation Problems Reviewed?: Yes Patient Discharge Instructions ACTIVITY: Limited activity DIET: continue same diet Patient Instructions: DI for Pneumonia -- Adult, DI for Urinary Tract Infection (UTI), DI for Heart Failure Exacerbations, Catheter-Associated Urinary Tract Infection Providers Primary Care Provider: Jack Moore Admit Provider: Jack Moore Attending Provider: Jack Moore
--- NOTE | 2023-07-29 12:52 | CARE MANAGER ---
Called and spoke with patient regarding recent discharge. She stated that she was upset due to being discharged home after laying in bed all day. She states that she is requiring assistance to bathroom, although when seen by our PT/OT they did not pick her up and suggested Home with HH. She has HH ordered and plan is for start of service on Thursday. She did state that she has help at home. I will notify Dr. Moore of patient's complaint.
== END 2023-07-28 19:38 | disposition home health service (06) | DRG 178 ==
LOC: ER 20:27 → 2ND 22:02
PROVIDERS: Admitting Provider Family Medicine; Emergency Provider Emergency Medicine; PCP Family Medicine; Visit Provider Family Medicine
DX: J15.5 Pneumonia due to Escherichia coli (principal); I13.0 Hypertensive heart and chronic kidney disease with heart failure and stage 1 through stage 4 chronic kidney disease, or unspecified chronic kidney disease; J96.11 Chronic respiratory failure with hypoxia; J15.20 Pneumonia due to staphylococcus, unspecified; I50.9 Heart failure, unspecified; R25.1 Tremor, unspecified; Z79.899 Other long term (current) drug therapy; I48.0 Paroxysmal atrial fibrillation; Z87.891 Personal history of nicotine dependence; N18.31 Chronic kidney disease, stage 3a; I25.118 Atherosclerotic heart disease of native coronary artery with other forms of angina pectoris; E87.6 Hypokalemia; M48.02 Spinal stenosis, cervical region; E11.40 Type 2 diabetes mellitus with diabetic neuropathy, unspecified; D63.1 Anemia in chronic kidney disease; Z79.84 Long term (current) use of oral hypoglycemic drugs; Z95.5 Presence of coronary angioplasty implant and graft; E66.9 Obesity, unspecified; Z68.28 Body mass index [BMI] 28.0-28.9, adult; N18.9 Chronic kidney disease, unspecified; Z99.81 Dependence on supplemental oxygen; I25.10 Atherosclerotic heart disease of native coronary artery without angina pectoris; I25.2 Old myocardial infarction
CPT/HCPCS: 36415; 71045; 71046; 80053; 81001; 82962; 83605; 83880; 84484; 85007; 85025; 85027; 87040; 87070; 87077; 87086; 87186; 87205; 87636; 93005; 94640; 94760; 94761; 97162; 97165; 99285; J0131; J0456; J0696

== ENCOUNTER 2023-08-06 14:42 | Outpatient (CLI) | payer MEDICARE, MEDICAID, SELFPAY ==
--- NOTE | 2023-08-06 15:10 | XR_ITS ---
FINAL REPORT CLINICAL HISTORY: PNEUMONIA R MIDDLE LOBE COMPARISON: 01/04/2023 FINDINGS: Two views of the chest were obtained. Cardiomegaly is present. The mediastinum is normal. There are right lung opacities present, consistent with atelectasis or pneumonia, new since the prior chest x-ray of 2022. There is no pneumothorax. The bony thorax is intact. IMPRESSION: New right lung opacities, atelectasis or pneumonia, not seen on the prior exam of 2022. Cardiomegaly. Reviewed, Interpreted and Dictated by Shoaib Booth III, MD Transcribed by Jenny Lewis Authenticated and . [facility]
== END 2023-08-06 23:59 | disposition home or self-care (01) ==
LOC: RAD 14:44
PROVIDERS: PCP Family Medicine; Visit Provider Family Medicine
DX: J18.9 Pneumonia, unspecified organism (principal)
CPT/HCPCS: 71046

== ENCOUNTER 2023-08-09 18:41 | Inpatient (IN) | payer MEDICARE, MEDICAID, SELFPAY ==
[2023-08-09] VITALS (32 sets, daily range): BP systolic 66–141; BP diastolic 34–54; PULSE 58–67; RESP 12–19; TEMP 36.7–37.2; O2SAT 95–100; BMI 27.6
--- NOTE | 2023-08-09 18:43 | ED_ITS ---
<Statement entered by Braden Beebe MD - 08/09/23 21:59> I was consulted by the HARMEET, and we discussed the complexity of the problems being addressed. I approved the treatment and management plan for this patient's care in the emergency department, thus performing a substantive portion of the medical decision making. Patient has history and course as well as laboratory workup consistent with urosepsis with resultant shock. Patient also has multinodular opacities in her lungs consistent with pneumonia. Patient received sepsis bolus fluids and appropriate broad-spectrum antibiotics. Indication: Shock Identified cardiac views: Cardiac parasternal long axis Findings: Cardiac activity present, trace pericardial effusion present, gross ejection fraction normal Impression: -From above Images were saved to permanent archive The study was technically adequate CPT: 92636 This study was performed by me, and I personally interpreted all images/videos. Based on my clinical judgement, these images were [adequate/inadequate] and [did/did not] necessitate further imaging. Braden Beebe MD Discharge Plan Disposition Patient Disposition: Admitted Condition: Critical Clinical Impressions Clinical Impression: Septic shock, Transaminitis Acute on chronic renal failure Qualifiers: Acute renal failure type: unspecified Chronic kidney disease stage: unspecified stage Qualified Code(s): N17.9 - Acute kidney failure, unspecified Urinary tract infection Qualifiers: Urinary tract infection type: site unspecified Hematuria presence: with hematuria Qualified Code(s): N39.0 - Urinary tract infection, site not specified Discharge ED Provider: Braden Beebe General Adult HPI <SANYA Jonas - Last Filed: 08/09/23 21:38> General Chief complaint: Weakness Stated complaint: WEAKNESS Time Seen by Provider: 08/09/23 18:43 History of Present Illness HPI narrative: Patient presents via EMS initially with a chief complaint of lethargy. Patient's daughter noted that she was less responsive to her today seemed very weak so called EMS. EMS reports patient's oxygen saturation at the scene was in the 70s. On arrival to the emergency department patient is responsive and oriented to person place and circumstance but she is hypotensive with a pressure in the 70s but a heart rate of 58. Patient is also on multiple rate controlling medications including bisoprolol and diltiazem. Patient denies chest pain fever chills hemoptysis hematochezia melena nausea vomiting diarrhea but does report just feeling weak . Related Data Home Medications Medication Instructions Recorded Confirmed hydroxyzine HCl 25 mg tablet 25 mg PO BID 90 days #180 tabs 05/13/18 07/30/23 montelukast 10 mg tablet 10 mg PO PM 11/09/19 07/30/23 (Singulair) nitroglycerin 0.4 mg sublingual 0.4 mg sublingual Q5MINP PRN Chest 07/11/21 07/30/23 tablet Pain empagliflozin 10 mg tablet 10 mg PO DAILY 02/16/22 07/30/23 (Jardiance) metformin 500 mg tablet 500 mg PO QPMWITHMEAL 02/16/22 07/30/23 rosuvastatin 40 mg tablet 40 mg PO DAILY 02/16/22 07/30/23 sitagliptin phosphate 100 mg 100 mg PO DAILY 02/17/22 07/30/23 tablet (Januvia) tiotropium bromide 1.25 2 puff inhalation DAILY 02/17/22 07/30/23 mcg/actuation mist for inhalation (Spiriva Respimat) amiodarone 200 mg tablet 200 mg PO DAILY 05/15/22 07/30/23 clopidogrel 75 mg tablet 75 mg PO DAILY 05/15/22 07/30/23 ferrous sulfate 325 mg (65 mg 325 mg PO BID Supplement 05/15/22 07/30/23 iron) tablet (Feosol) pantoprazole 40 mg tablet,delayed 40 mg PO DAILY 05/15/22 07/30/23 release sennosides 8.6 mg tablet (senna) 8.6 mg PO DAILY Constipation 05/15/22 07/30/23 albuterol sulfate 90 mcg/actuation 2 puff inhalation Q6HP PRN 01/03/23 07/30/23 aerosol inhaler Shortness Of Breath Or Wheezing diltiazem HCl 180 mg 180 mg PO DAILY 01/03/23 07/30/23 capsule,extended release 24 hr, controlled (DILT-XR) fluticasone propionate 50 1 spray intranasal DAILYP PRN 01/03/23 07/30/23 mcg/actuation nasal Allergy Symptoms spray,suspension potassium chloride 10 mEq 10 meq PO DAILY 04/05/23 07/30/23 tablet,extended release bisoprolol fumarate 10 mg tablet 10 mg PO DAILY 05/19/23 07/30/23 furosemide 20 mg tablet 20 mg PO BID 05/19/23 07/30/23 primidone 50 mg tablet 100 mg PO HS 05/19/23 07/30/23 mometasone-formoterol HFA 200 2 puff inhalation BID 07/24/23 07/30/23 mcg-5 mcg/actuation aerosol inhaler (Dulera) levothyroxine 75 mcg tablet 75 mcg PO DAILY 07/25/23 07/30/23 Previous Rx's Medication Instructions Recorded gabapentin 100 mg capsule 100 mg PO BID Neuropathy #60 caps 04/08/23 cefdinir 300 mg capsule 300 mg PO BID pneumonia #20 caps 07/28/23 Allergies Allergy/AdvReac Type Severity Reaction Status Date / Time alendronate sodium Allergy Intermediate Dizziness Verified 07/30/23 14:25 [From Fosamax] isosorbide Allergy Unknown Verified 07/30/23 14:25 allergy reaction atorvastatin [From Lipitor] AdvReac Intermediate Weakness Verified 07/30/23 14:25 tuberculin,PPD,multi-puncture AdvReac Mild POSITIVE Verified 07/30/23 14:25 [facility] <SANYA Jonas - Last Filed: 08/09/23 21:38> [facility] Disclaimer: The information contained in this section may have been updated after the patient was seen, as this information can be updated by other users. 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 Constipation Elevated liver enzymes Hypokalemia Wheeze Onychodystrophy History of smoking 30 or more pack years Anemia Stage 3a chronic kidney disease (CKD) GI bleed Pneumonia Exposure to TB Mediastinal lymphadenopathy Hilar lymphadenopathy Multiple lung nodules on CT Encounter for screening for malignant neoplasm of lung in current smoker with 30 pack year history or greater Smoking greater than 30 pack years Asthma-chronic obstructive pulmonary disease overlap syndrome Asthma COPD mixed type PAF (paroxysmal atrial fibrillation) Atrial fibrillation with rapid ventricular response Acute respiratory failure with hypoxia Pneumonia Pneumonia due to COVID-19 virus Kidney disease Rheumatic fever/heart disease Arthritis Diabetes mellitus, type 2 Sepsis Obesity (BMI 30.0-34.9) Non-STEMI (non-ST elevated myocardial infarction) Multifocal atrial tachycardia Coronary artery disease Hypertension Hyperlipidemia COPD (chronic obstructive pulmonary disease) Tobacco use Ileus, unspecified SIRS (systemic inflammatory response syndrome) Sepsis Gastroenteritis Right lower lobe pneumonia Pincer nail deformity Type 2 diabetes mellitus with diabetic neuropathy, without long-term current use of insulin Bilateral lower extremity edema Diabetic foot Keratosis Onychogryphosis Pre-ulcerative calluses Surgical History Hx of removal of ovary History of cholecystectomy History of hip surgery History of coronary artery stent placement Family History Other Coronary artery disease Diabetes Hypertension Social History Smoking Status: Never smoker years smoked: 50 smoking status stop date: 2 years ago second hand exposure: Yes alcohol intake: never substance use type: denies use current occupational status: retired Travel in the last 8 weeks: None household members: none housing: apartment lives independently: Yes marital status: current occupational exposures/hazards: No caffeine: Yes <SANYA Jonas - Last Filed: 08/09/23 21:38> ROS Obtained: Yes Systems reviewed as appropriate & no additional complaints except as documented Physical Exam <SANYA Jonas - Last Filed: 08/09/23 21:38> General General appearance: alert and in no apparent distress Head Head exam: atraumatic and normal inspection Eye Eye exam: Present normal appearance, PERRL and EOMI ENT ENT exam: Present normal exam, normal oropharynx and mucous membranes moist Neck Neck exam: Present normal inspection, full ROM and trachea midline; Absent lymphadenopathy Chest Chest inspection: Present normal inspection and symmetric chest wall rise Respiratory Respiratory exam: Present normal lung sounds bilaterally; Absent respiratory distress or accessory muscle use Cardiovascular Cardiovascular exam: Present regular rate, normal rhythm, normal heart sounds, +S1 and +S2 Abdominal Exam Abdominal exam: Present soft and normal bowel sounds; Absent tenderness, guarding, rebound or rigidity Extremities Exam Extremities exam: Present normal inspection and full ROM Back Exam Back exam: Present normal inspection and full ROM; Absent tenderness Neurological Exam Neurological exam: Present oriented X3 and CN II-XII intact; Absent alert (Patient is slightly sleepy but arousable to voice with a Merle Coma Score 15 currently) Psychiatric Psychiatric exam: Present normal affect and normal mood Skin Skin exam: Present dry and normal color; Absent warm (Skin is cool to touch) Medical Decision Making <SANYA Jonas - Last Filed: 08/09/23 21:38> Medical Records Medical records reviewed: Yes I reviewed the patient's medical records. [place] Inquiry Pt receiving controlled substance: No Vital Signs: 08/09/23 18:42 08/09/23 19:01 08/09/23 19:03 Temperature 98.9 F Temperature Source Oral Pulse Rate 66 66 Pulse Rate [Radial] 58 L Respiratory Rate 18 Blood Pressure 89/39 L 90/34 L Blood Pressure [Left Arm] 79/35 L Blood Pressure Mean Blood Pressure Mean [Left Arm] 49 Blood Pressure Source Blood Pressure Source [Left Arm] Automatic Cuff Blood Pressure Position Blood Pressure Position [Left Arm] Sitting 02 Sat by Pulse Oximetry 99 100 100 Oxygen Delivery Method Nasal Cannula Nasal Cannula Nasal Cannula Oxygen Flow Rate (LPM) 2 4 4 08/09/23 19:15 08/09/23 19:30 08/09/23 19:39 Temperature Temperature Source Pulse Rate 61 64 60 Pulse Rate [Radial] Respiratory Rate 14 13 13 Blood Pressure 82/38 L 96/51 L 66/43 L Blood Pressure [Left Arm] Blood Pressure Mean Blood Pressure Mean [Left Arm] Blood Pressure Source Blood Pressure Source [Left Arm] Blood Pressure Position Blood Pressure Position [Left Arm] 02 Sat by Pulse Oximetry 98 98 100 Oxygen Delivery Method Oxygen Flow Rate (LPM) 08/09/23 19:40 08/09/23 19:47 08/09/23 19:50 Temperature Temperature Source Pulse Rate 61 58 L 58 L Pulse Rate [Radial] Respiratory Rate 12 13 13 Blood Pressure 83/42 L 81/41 L 91/43 L Blood Pressure [Left Arm] Blood Pressure Mean 56 Blood Pressure Mean [Left Arm] Blood Pressure Source Blood Pressure Source [Left Arm] Blood Pressure Position Blood Pressure Position [Left Arm] 02 Sat by Pulse Oximetry 99 100 100 Oxygen Delivery Method Oxygen Flow Rate (LPM) 08/09/23 19:55 08/09/23 20:00 08/09/23 20:12 Temperature Temperature Source Pulse Rate 60 67 Pulse Rate [Radial] Respiratory Rate 18 14 16 Blood Pressure 90/48 L 116/50 L 109/53 L Blood Pressure [Left Arm] Blood Pressure Mean 64 60 Blood Pressure Mean [Left Arm] Blood Pressure Source Blood Pressure Source [Left Arm] Blood Pressure Position Blood Pressure Position [Left Arm] 02 Sat by Pulse Oximetry 98 98 98 Oxygen Delivery Method Nasal Cannula Oxygen Flow Rate (LPM) 4 08/09/23 20:15 08/09/23 20:20 08/09/23 20:25 Temperature Temperature Source Pulse Rate 61 60 59 L Pulse Rate [Radial] Respiratory Rate 12 14 13 Blood Pressure 112/54 L 117/49 L 116/50 L Blood Pressure [Left Arm] Blood Pressure Mean 73 83 72 Blood Pressure Mean [Left Arm] Blood Pressure Source Blood Pressure Source [Left Arm] Blood Pressure Position Blood Pressure Position [Left Arm] 02 Sat by Pulse Oximetry 95 98 98 Oxygen Delivery Method Oxygen Flow Rate (LPM) 08/09/23 20:30 08/09/23 20:35 08/09/23 20:40 Temperature Temperature Source Pulse Rate 64 62 Pulse Rate [Radial] Respiratory Rate 17 12 Blood Pressure 97/51 L 109/40 L 114/39 L Blood Pressure [Left Arm] Blood Pressure Mean 66 58 64 Blood Pressure Mean [Left Arm] Blood Pressure Source Blood Pressure Source [Left Arm] Blood Pressure Position Blood Pressure Position [Left Arm] 02 Sat by Pulse Oximetry 98 97 Oxygen Delivery Method Nasal Cannula Oxygen Flow Rate (LPM) 4 08/09/23 20:45 08/09/23 20:51 08/09/23 20:55 Temperature Temperature Source Pulse Rate 63 62 62 Pulse Rate [Radial] Respiratory Rate 18 16 12 Blood Pressure 111/52 L 103/54 L 114/51 L Blood Pressure [Left Arm] Blood Pressure Mean 60 67 61 Blood Pressure Mean [Left Arm] Blood Pressure Source Blood Pressure Source [Left Arm] Blood Pressure Position Blood Pressure Position [Left Arm] 02 Sat by Pulse Oximetry 100 99 100 Oxygen Delivery Method Oxygen Flow Rate (LPM) 08/09/23 21:00 08/09/23 21:17 Temperature 98.0 F Temperature Source Oral Pulse Rate 61 60 Pulse Rate [Radial] Respiratory Rate 14 12 Blood Pressure 96/41 L 108/48 L Blood Pressure [Left Arm] Blood Pressure Mean 67 Blood Pressure Mean [Left Arm] Blood Pressure Source Automatic Cuff Blood Pressure Source [Left Arm] Blood Pressure Position Sitting Blood Pressure Position [Left Arm] 02 Sat by Pulse Oximetry 100 Oxygen Delivery Method Nasal Cannula Nasal Cannula Oxygen Flow Rate (LPM) 4 4 Lab Data Lab results reviewed: Yes I reviewed the patient's lab results. Lab Results 08/09/23 18:45: VBG pH 7.25 L, VBG pCO2 44.7, VBG pO2 45.0 H, VBG HCO3 18.9 L, V BG Total CO2 20.3 L, VBG O2 Saturation 69.0, VBG Base Excess -8.4 L, VBG Lactic Acid 1.4 08/09/23 18:51: Chlamy pneumoniae PCR Not detected, Adenovirus (PCR) Not detected, B. pertussis DNA (PCR) Not detected, Coronavirus OC43 (PCR) Not detected, Coronavirus HKU1 (PCR) Not detected, Coronavirus 229E (PCR) Not detected, SARS-CoV-2 (PCR) Not detected, Coronavirus NL63 (PCR) Not detected, Human Metapneumovir PCR Not detected, Influenza A (H1) PCR Not detected, Influ A (H1N1/09) PCR Not detected, Influenza A (H3) PCR Not detected, Influenza Type A (PCR) Not detected, Influenza Type B (PCR) Not detected, M. pneumoniae (PCR) Not detected, Parainfluenza 1 (PCR) Not detected, Parainfluenza 2 (PCR) Not detected, Parainfluenza 3 (PCR) Not detected, Parainfluenza 4 (PCR) Not detected, RSV (PCR) Not detected, Entero/Rhino (PCR) Not detected 08/09/23 19:00: WBC 9.3, RBC 2.89 L, Hgb 8.9 L, Hct 27.0 L, MCV 93.4, MCH 30.9, MCHC 33.1, RDW 17.1, Plt Count 566 H, MPV 7.6, Neut % (Auto) 87.0 H, Lymph % (Auto) 7.4 L, [place] % (Auto) 5.1, Eos % (Auto) 0.3, Baso % (Auto) 0.3, Neut # (Auto) 8.1 H, Lymph # (Auto) 0.7, [place] # (Auto) 0.5, Eos # (Auto) 0.0, Baso # (Auto) 0.0, Total Counted 100, Neutrophils % (Manual) 87 H, Lymphocytes % (Manual) 12, Monocytes % (Manual) 1 L, Platelet Estimate Slight increase, RBC Morphology Normal, Sodium 129 L, Potassium 5.2 H, Chloride 96 L, Carbon Dioxide 22, Anion Gap 16.2 H, BUN 52 H, Creatinine 3.20 H, Estimated Creat Clear 16, E stimated GFR 14 L*, Est GFR ( Amer) 17 L*, Glucose 165 H, Calcium 9.1, Magnesium 2.3, Total Bilirubin 0.5, AST 487 H*, ALT 487 H*, Alkaline Phosphatase 142 H, Troponin I 0.02, Total Protein 7.1, Albumin 3.4 L, Globulin 3.7 H, A lbumin/Globulin Ratio 0.9 L, Lipase 99, Procalcitonin 0.408 08/09/23 20:40: Urine Color Yellow, Urine Appearance Cloudy, Urine pH 6.0, Ur Specific Almo 1.020, Urine Protein 1+, Urine Glucose (UA) 2+, Urine Ketones Negative, Urine Blood 3+, Urine Nitrate Negative, Urine Bilirubin Negative, Urine Urobilinogen 0.2, Ur Leukocyte Esterase 2+ A, Urine RBC Occasional, Urine WBC Tntc, Ur Squamous Epith Cells Occasional, Urine Bacteria 2+, Urine Yeast Occasional 08/09/23 19:00 08/09/23 19:00 Orders (Tests/Meds): ED MEDICATIONS Generic Name Dose Route Start Last Admin Trade Name Freq PRN Reason Stop Dose Admin Norepinephrine/Dextrose 8 mg in 250 mls @ 3.75 mls/hr 08/09/23 19:10 08/09/23 19:51 Norepinephrine 8mg/250ml-D5w Premix IV 09/08/23 19:09 9 mcg/min .Q24H SARAH 16.88 mls/hr Infusion Protocol 2 MCG/MIN Lactated Ringer's 1,430 mls @ 715 mls/hr 08/09/23 20:10 08/09/23 20:18 Lactated Ringer's 1000 Ml Bag 30 ml/kg infuse over 2 hr (1430 ml) 08/09/23 22:09 Not Given IV .Q2H ONE Azithromycin 500 mg/ Sodium 250 mls @ 250 mls/hr 08/09/23 20:45 Chloride IV 08/19/23 20:44 Q24H SARAH Miscellaneous 1 each 08/09/23 19:15 08/09/23 19:48 Vancomycin Consult Request NOTAPPLIC 09/08/23 19:14 1 each CONSULT [facility] Administration Discontinued Medications Generic Name Dose Route Start Last Admin Trade Name Jefferyq PRN Reason Stop Dose Admin Acetaminophen 1,000 mg 08/09/23 18:44 08/09/23 19:33 Acetaminophen 1,000mg/100ml Vial IV 08/09/23 18:45 1,000 mg ONCE ONE Administration Lactated Ringer's 1,000 mls @ 999 mls/hr 08/09/23 18:44 08/09/23 19:03 Lactated Ringer's 1000 Ml Bag IV 08/09/23 19:44 999 mls/hr .Q1H1M ONE Administration Piperacillin Sod/Tazobactam 50 mls @ 100 mls/hr 08/09/23 19:15 08/09/23 19:40 Sod 3.375 gm/ Sodium Chloride IV 08/19/23 19:14 Not Given Q6H [facility] Vancomycin/PEG/NADA/Lysine/Water 1.5 gm in 300 mls @ 150 mls/hr 08/09/23 19:15 08/09/23 19:48 Vancomycin 1.5gm/300ml (Peg) Premix IV 08/09/23 21:14 150 mls/hr ONCE ONE Administration Piperacillin Sod/Tazobactam 50 mls @ 100 mls/hr 08/09/23 19:35 08/09/23 19:40 Sod 3.375 gm/ Sodium Chloride IV 08/09/23 20:04 100 mls/hr ONCE ONE Administration Ketorolac Tromethamine 15 mg 08/09/23 18:44 08/09/23 19:33 Ketorolac 30mg/Ml Vial IV 08/09/23 18:45 15 mg ONCE ONE Administration ORDERS Category Date Time Status CT abdomen pelvis wo con Stat Cat Scan 08/09/23 19:[address] chest wo con Stat Cat Scan 08/09/23 19:43 Completed Chest XR -- portable [XR chest portable] Stat Exams 08/09/23 18:44 Completed POCUS Point of Care (ER Only) Stat Exams 08/09/23 19:10 Completed Ammonia Stat Lab 08/09/23 20:56 Completed CBC w/Auto Diff [Complete Blood Count Auto Diff] Stat Lab 08/09/23 19:00 Completed CMP [Comprehensive Metabolic Panel] Stat Lab 08/09/23 19:00 Completed Full Resp Panel w/COVID ([facility]) Routine Lab 08/09/23 18:51 Completed Lactic Acid Stat Lab 08/09/23 20:56 Completed Lipase Stat Lab 08/09/23 19:00 Completed Magnesium Stat Lab 08/09/23 19:00 Completed Procalcitonin Stat Lab 08/09/23 19:00 Completed Trop I [Troponin I] Stat Lab 08/09/23 19:00 Completed Troponin I Q3H Lab 08/09/23 21:45 Received Troponin I Q3H Lab 08/10/23 00:45 Ordered UA [Urinalysis and Microscopic] Stat Lab 08/09/23 20:40 Completed Blood Culture Stat Micro 08/09/23 19:32 Received Urine Culture Stat Micro 08/09/23 20:40 Received VBG [Venous Blood Gas] Stat RT 08/09/23 18:45 Completed Medical Decision Narrative: In summary patient is a 73-year-old female who presents to the emergency department for evaluation of hypoxia and hypotension. Patient is hemodynamically unstable with blood pressure of 79 and a heart rate of 58 on arrival satting at 99% on 4 L by nasal cannula but with no increased work of breathing upon arrival, afebrile. Physical exam is remarkable for a patient who is slightly lethargic but arousable and oriented to person place and circumstance with a Glascow coma score 15. Skin is cool to touch. I am unable to elicit any focal findings on otherwise unremarkable physical exam. Differential diagnosis includes septic shock, ACS, PE etc. Initial workup will be conducted with hematologic labs CT scan of the chest abdomen pelvis urinalysis. Initial interventions include fluid bolus Levophed Toradol Tylenol vancomycin and Zosyn after blood cultures. Initial workup reviewed by me shows a normal white count but acute on chronic renal failure, markedly elevated AST and ALT, hyponatremia, hyperkalemia but hemoconcentrated. Given the initial findings I had an interactive discussion regarding patient management with Dr. Clemens who agreed with admission for further evaluation and care <Braden Beebe MD - Last Filed: 08/09/23 21:57> Vital Signs: 08/09/23 18:42 08/09/23 19:01 08/09/23 19:03 Temperature 98.9 F Temperature Source Oral Pulse Rate 66 66 Pulse Rate [Radial] 58 L Respiratory Rate 18 Blood Pressure 89/39 L 90/34 L Blood Pressure [Left Arm] 79/35 L Blood Pressure Mean Blood Pressure Mean [Left Arm] 49 Blood Pressure Source Blood Pressure Source [Left Arm] Automatic Cuff Blood Pressure Position Blood Pressure Position [Left Arm] Sitting 02 Sat by Pulse Oximetry 99 100 100 Oxygen Delivery Method Nasal Cannula Nasal Cannula Nasal Cannula Oxygen Flow Rate (LPM) 2 4 4 08/09/23 19:15 08/09/23 19:30 08/09/23 19:39 Temperature Temperature Source Pulse Rate 61 64 60 Pulse Rate [Radial] Respiratory Rate 14 13 13 Blood Pressure 82/38 L 96/51 L 66/43 L Blood Pressure [Left Arm] Blood Pressure Mean Blood Pressure Mean [Left Arm] Blood Pressure Source Blood Pressure Source [Left Arm] Blood Pressure Position Blood Pressure Position [Left Arm] 02 Sat by Pulse Oximetry 98 98 100 Oxygen Delivery Method Oxygen Flow Rate (LPM) 08/09/23 19:40 08/09/23 19:47 08/09/23 19:50 Temperature Temperature Source Pulse Rate 61 58 L 58 L Pulse Rate [Radial] Respiratory Rate 12 13 13 Blood Pressure 83/42 L 81/41 L 91/43 L Blood Pressure [Left Arm] Blood Pressure Mean 56 Blood Pressure Mean [Left Arm] Blood Pressure Source Blood Pressure Source [Left Arm] Blood Pressure Position Blood Pressure Position [Left Arm] 02 Sat by Pulse Oximetry 99 100 100 Oxygen Delivery Method Oxygen Flow Rate (LPM) 08/09/23 19:55 08/09/23 20:00 08/09/23 20:12 Temperature Temperature Source Pulse Rate 60 67 Pulse Rate [Radial] Respiratory Rate 18 14 16 Blood Pressure 90/48 L 116/50 L 109/53 L Blood Pressure [Left Arm] Blood Pressure Mean 64 60 Blood Pressure Mean [Left Arm] Blood Pressure Source Blood Pressure Source [Left Arm] Blood Pressure Position Blood Pressure Position [Left Arm] 02 Sat by Pulse Oximetry 98 98 98 Oxygen Delivery Method Nasal Cannula Oxygen Flow Rate (LPM) 4 08/09/23 20:15 08/09/23 20:20 08/09/23 20:25 Temperature Temperature Source Pulse Rate 61 60 59 L Pulse Rate [Radial] Respiratory Rate 12 14 13 Blood Pressure 112/54 L 117/49 L 116/50 L Blood Pressure [Left Arm] Blood Pressure Mean 73 83 72 Blood Pressure Mean [Left Arm] Blood Pressure Source Blood Pressure Source [Left Arm] Blood Pressure Position Blood Pressure Position [Left Arm] 02 Sat by Pulse Oximetry 95 98 98 Oxygen Delivery Method Oxygen Flow Rate (LPM) 08/09/23 20:30 08/09/23 20:35 08/09/23 20:40 Temperature Temperature Source Pulse Rate 64 62 Pulse Rate [Radial] Respiratory Rate 17 12 Blood Pressure 97/51 L 109/40 L 114/39 L Blood Pressure [Left Arm] Blood Pressure Mean 66 58 64 Blood Pressure Mean [Left Arm] Blood Pressure Source Blood Pressure Source [Left Arm] Blood Pressure Position Blood Pressure Position [Left Arm] 02 Sat by Pulse Oximetry 98 97 Oxygen Delivery Method Nasal Cannula Oxygen Flow Rate (LPM) 4 08/09/23 20:45 08/09/23 20:51 08/09/23 20:55 Temperature Temperature Source Pulse Rate 63 62 62 Pulse Rate [Radial] Respiratory Rate 18 16 12 Blood Pressure 111/52 L 103/54 L 114/51 L Blood Pressure [Left Arm] Blood Pressure Mean 60 67 61 Blood Pressure Mean [Left Arm] Blood Pressure Source Blood Pressure Source [Left Arm] Blood Pressure Position Blood Pressure Position [Left Arm] 02 Sat by Pulse Oximetry 100 99 100 Oxygen Delivery Method Oxygen Flow Rate (LPM) 08/09/23 21:00 08/09/23 21:17 Temperature 98.0 F Temperature Source Oral Pulse Rate 61 60 Pulse Rate [Radial] Respiratory Rate 14 12 Blood Pressure 96/41 L 108/48 L Blood Pressure [Left Arm] Blood Pressure Mean 67 Blood Pressure Mean [Left Arm] Blood Pressure Source Automatic Cuff Blood Pressure Source [Left Arm] Blood Pressure Position Sitting Blood Pressure Position [Left Arm] 02 Sat by Pulse Oximetry 100 Oxygen Delivery Method Nasal Cannula Nasal Cannula Oxygen Flow Rate (LPM) 4 4 Lab Data Lab Results 08/09/23 18:45: VBG pH 7.25 L, VBG pCO2 44.7, VBG pO2 45.0 H, VBG HCO3 18.9 L, V BG Total CO2 20.3 L, VBG O2 Saturation 69.0, VBG Base Excess -8.4 L, VBG Lactic Acid 1.4 08/09/23 18:51: Chlamy pneumoniae PCR Not detected, Adenovirus (PCR) Not detected, B. pertussis DNA (PCR) Not detected, Coronavirus OC43 (PCR) Not detected, Coronavirus HKU1 (PCR) Not detected, Coronavirus 229E (PCR) Not detected, SARS-CoV-2 (PCR) Not detected, Coronavirus NL63 (PCR) Not detected, Human Metapneumovir PCR Not detected, Influenza A (H1) PCR Not detected, Influ A (H1N1/09) PCR Not detected, Influenza A (H3) PCR Not detected, Influenza Type A (PCR) Not detected, Influenza Type B (PCR) Not detected, M. pneumoniae (PCR) Not detected, Parainfluenza 1 (PCR) Not detected, Parainfluenza 2 (PCR) Not detected, Parainfluenza 3 (PCR) Not detected, Parainfluenza 4 (PCR) Not detected, RSV (PCR) Not detected, Entero/Rhino (PCR) Not detected 08/09/23 19:00: WBC 9.3, RBC 2.89 L, Hgb 8.9 L, Hct 27.0 L, MCV 93.4, MCH 30.9, MCHC 33.1, RDW 17.1, Plt Count 566 H, MPV 7.6, Neut % (Auto) 87.0 H, Lymph % (Auto) 7.4 L, [place] % (Auto) 5.1, Eos % (Auto) 0.3, Baso % (Auto) 0.3, Neut # (Auto) 8.1 H, Lymph # (Auto) 0.7, [place] # (Auto) 0.5, Eos # (Auto) 0.0, Baso # (Auto) 0.0, Total Counted 100, Neutrophils % (Manual) 87 H, Lymphocytes % (Manual) 12, Monocytes % (Manual) 1 L, Platelet Estimate Slight increase, RBC Morphology Normal, Sodium 129 L, Potassium 5.2 H, Chloride 96 L, Carbon Dioxide 22, Anion Gap 16.2 H, BUN 52 H, Creatinine 3.20 H, Estimated Creat Clear 16, E stimated GFR 14 L*, Est GFR ( Amer) 17 L*, Glucose 165 H, Calcium 9.1, Magnesium 2.3, Total Bilirubin 0.5, AST 487 H*, ALT 487 H*, Alkaline Phosphatase 142 H, Troponin I 0.02, Total Protein 7.1, Albumin 3.4 L, Globulin 3.7 H, A lbumin/Globulin Ratio 0.9 L, Lipase 99, Procalcitonin 0.408 08/09/23 20:40: Urine Color Yellow, Urine Appearance Cloudy, Urine pH 6.0, Ur Specific [place] 1.020, Urine Protein 1+, Urine Glucose (UA) 2+, Urine Ketones Negative, Urine Blood 3+, Urine Nitrate Negative, Urine Bilirubin Negative, Urine Urobilinogen 0.2, Ur Leukocyte Esterase 2+ A, Urine RBC Occasional, Urine WBC Tntc, Ur Squamous Epith Cells Occasional, Urine Bacteria 2+, Urine Yeast Occasional Orders (Tests/Meds): ED MEDICATIONS Generic Name Dose Route Start Last Admin Trade Name Freq PRN Reason Stop Dose Admin Norepinephrine/Dextrose 8 mg in 250 mls @ 3.75 mls/hr 08/09/23 19:10 08/09/23 19:51 Norepinephrine 8mg/250ml-D5w Premix IV 09/08/23 19:09 9 mcg/min .Q24H SARAH 16.88 mls/hr Infusion Protocol 2 MCG/MIN Lactated Ringer's 1,430 mls @ 715 mls/hr 08/09/23 20:10 08/09/23 20:18 Lactated Ringer's 1000 Ml Bag 30 ml/kg infuse over 2 hr (1430 ml) 08/09/23 22:09 Not Given IV .Q2H ONE Azithromycin 500 mg/ Sodium 250 mls @ 250 mls/hr 08/09/23 20:45 Chloride IV 08/19/23 20:44 Q24H SARAH Miscellaneous 1 each 08/09/23 19:15 08/09/23 19:48 Vancomycin Consult Request NOTAPPLIC 09/08/23 19:14 1 each [facility]ULT [facility] Administration Discontinued Medications Generic Name Dose Route Start Last Admin Trade Name Freq PRN Reason Stop Dose Admin Acetaminophen 1,000 mg 08/09/23 18:44 08/09/23 19:33 Acetaminophen 1,000mg/100ml Vial IV 08/09/23 18:45 1,000 mg ONCE ONE Administration Lactated Ringer's 1,000 mls @ 999 mls/hr 08/09/23 18:44 08/09/23 19:03 Lactated Ringer's 1000 Ml Bag IV 08/09/23 19:44 999 mls/hr .Q1H1M ONE Administration Piperacillin Sod/Tazobactam 50 mls @ 100 mls/hr 08/09/23 19:15 08/09/23 19:40 Sod 3.375 gm/ Sodium Chloride IV 08/19/23 19:14 Not Given Q6H SARAH Vancomycin/PEG/NADA/Lysine/Water 1.5 gm in 300 mls @ 150 mls/hr 08/09/23 19:15 08/09/23 19:48 Vancomycin 1.5gm/300ml (Peg) Premix IV 08/09/23 21:14 150 mls/hr ONCE ONE Administration Piperacillin Sod/Tazobactam 50 mls @ 100 mls/hr 08/09/23 19:35 08/09/23 19:40 Sod 3.375 gm/ Sodium Chloride IV 08/09/23 20:04 100 mls/hr ONCE ONE Administration Ketorolac Tromethamine 15 mg 08/09/23 18:44 08/09/23 19:33 Ketorolac 30mg/Ml Vial IV 08/09/23 18:45 15 mg ONCE ONE Administration ORDERS Category Date Time Status CT abdomen pelvis wo con Stat Cat Scan 08/09/23 19:[address] chest wo con Stat Cat Scan 08/09/23 19:43 Completed Chest XR -- portable [XR chest portable] Stat Exams 08/09/23 18:44 Completed POCUS Point of Care (ER Only) Stat Exams 08/09/23 19:10 Completed Ammonia Stat Lab 08/09/23 20:56 Completed CBC w/Auto Diff [Complete Blood Count Auto Diff] Stat Lab 08/09/23 19:00 Completed CMP [Comprehensive Metabolic Panel] Stat Lab 08/09/23 19:00 Completed Full Resp Panel w/COVID ([facility]) Routine Lab 08/09/23 18:51 Completed Lactic Acid Stat Lab 08/09/23 20:56 Completed Lipase Stat Lab 08/09/23 19:00 Completed Magnesium Stat Lab 08/09/23 19:00 Completed Procalcitonin Stat Lab 08/09/23 19:00 Completed Trop I [Troponin I] Stat Lab 08/09/23 19:00 Completed Troponin I Q3H Lab 08/09/23 21:45 Received Troponin I Q3H Lab 08/10/23 00:45 Ordered UA [Urinalysis and Microscopic] Stat Lab 08/09/23 20:40 Completed Blood Culture Stat Micro 08/09/23 19:32 Received Urine Culture Stat Micro 08/09/23 20:40 Received VBG [Venous Blood Gas] Stat RT 08/09/23 18:45 Completed ECG Data Tracing #1: Independently interpreted by me, rate is 61, rhythm is regular, axis is normal, no ST elevation in anatomical contiguous leads. QTc 435. Medical Decision Narrative: In summary patient is a 73-year-old female who presents to the emergency department for evaluation of hypoxia and hypotension. Patient is hemodynamically unstable with blood pressure of 79 and a heart rate of 58 on arrival satting at 99% on 4 L by nasal cannula but with no increased work of breathing upon arrival, afebrile. Physical exam is remarkable for a patient who is slightly lethargic but arousable and oriented to person place and circumstance with a Glascow coma score 15. Skin is cool to touch. I am unable to elicit any focal findings on otherwise unremarkable physical exam. Differential diagnosis includes septic shock, ACS, PE etc. Initial workup will be conducted with hematologic labs CT scan of the chest abdomen pelvis urinalysis. Initial interventions include fluid bolus Levophed Toradol Tylenol vancomycin and Zosyn after blood cultures. Initial workup reviewed by me shows a normal white count but acute on chronic renal failure, markedly elevated AST and ALT, hyponatremia, hyperkalemia but hemoconcentrated. Given the initial findings I had an interactive discussion regarding patient management with Dr. Clemens who agreed with admission for further evaluation and care. Critical Care <SANYA Jonas - Last Filed: 08/09/23 21:38> Critical Care Time Critical Care Time: Yes Attestation: On 08/09/23, the high probability of a clinically significant, sudden or life threatening deterioration of the following system(s) required my full and direct attention, intervention and personal management. The time I documented below is in addition to time spent performing reported procedures but includes the following listed in this critical care notation. Total Time Total Critical Care Time: 30
--- NOTE | 2023-08-09 18:44 | XR_ITS ---
PROCEDURE INFORMATION: Exam: XR Chest Exam date and time: 08/09/2023 8:07 PM Age: 73 years old Clinical indication: Dyspnea; Additional info: Acute on chronic hypoxemic respiratory failure TECHNIQUE: Imaging protocol: Radiologic exam of the chest. Views: 1 view. COMPARISON: CT CHEST WO CON 08/09/2023 7:46 PM FINDINGS: Lungs: See Bones/joints finding. Pleural spaces: No large effusion or pneumothorax. Heart/Mediastinum: There is moderate coronary atherosclerotic disease/calcification although evaluation is limited secondary to the non gated nature of the study. Vasculature: There are calcifications of the aortic arch. Bones/joints: Consolidation along the right minor fissure is better evaluated on concurrently performed thoracic CT. IMPRESSION: Consolidation along the right minor fissure is better evaluated on concurrently performed thoracic CT.
--- NOTE | 2023-08-09 18:44 | ECG_ITS ---
APPROVED REPORT Exam: Resting ECG HR:61 bpm ECG Measurements Heart Rate 61 AXES AZ 188 P 55 QRSd 117 QRS 45 QT 433 T 101 QTc 435 Conclusion SINUS RHYTHM PROBABLE INFERIOR MYOCARDIAL INFARCTION , PROBABLY OLD [35 ms Q WAVE IN II/aVF] ABNORMAL ECG Electronically signed by : OTTO ROJAS, 08/10/2023 00:04:16
[2023-08-09 18:55] LABS: Adenovirus,PCR Not Detected (NotDetected); Coronavirus 229E Not Detected (NotDetected); Coronavirus NL63 Not Detected (NotDetected); Coronavirus OC43 Not Detected (NotDetected); Coronovirus HKU1,PCR Not Detected (NotDetected); Human Metapneumovirus Not Detected (NotDetected); Influenza A, PCR Not Detected (NotDetected); Influenza AH1, 2009 Not Detected (NotDetected); Influenza AH1, PCR Not Detected (NotDetected); Influenza AH3,PCR Not Detected (NotDetected); Rhinovirus/Enterovirus Not Detected (NotDetected)
[2023-08-09 18:56] LABS: Bordetella Pertussis Not Detected (NotDetected); Chlamydophila Pneumoniae, PCR Not Detected (NotDetected); Coronavirus 19, PCR Not Detected (NotDetected); Influenza B, PCR Not Detected (NotDetected); Mycoplasma Pneumoniae, PCR Not Detected (NotDetected); Parainfluenza 1, PCR Not Detected (NotDetected); Parainfluenza 2, PCR Not Detected (NotDetected); Parainfluenza 3, PCR Not Detected (NotDetected); Parainfluenza 4, PCR Not Detected (NotDetected); Respiratory Syncytial Virus Not Detected (NotDetected)
[2023-08-09] MEDS: LACTATED RINGERS 1000ML 1,000 ML 999 ML IV (19:03)
[2023-08-09 19:17] LABS: Basophils % 0.3 % (0.1-2.0); Eosinophils % 0.3 % (0.1-12.0); Hemoglobin 8.9 g/dL (12.2-16.2); Lymphocytes # 0.7 K/mm3 (0.7-4.5); Lymphocytes % 7.4 % (10-50); Mean Corpuscular HGB Conc 33.1 g/dL (31.8-35.4); Mean Corpuscular Hemoglobin 30.9 pg (27.0-31.2); Mean Corpuscular Volume 93.4 fl (81-99); Mean Platelet Volume 7.6 fl (7.4-10.4); Monocytes # 0.5 K/mm3 (0.1-1.0); Monocytes % 5.1 % (1.7-9.3); Neutrophils # 8.1 K/mm3 (1.8-7.8); Platelet Count 566 K/mm3 (142-424); Red Blood Count 2.89 M/mm3 (4.20-5.40); Red Cell Distribution Width 17.1 % (11.5-17.5); White Blood Count 9.3 K/mm3 (4.8-10.8)
[2023-08-09 19:21] LABS: MANUAL DIFFERENTIAL MANUAL DIFFERENTIAL (MANUAL DIFF)
[2023-08-09 19:32] LABS: Magnesium 2.3 mg/dl (1.6-2.3)
[2023-08-09 19:33] LABS: Alanine Aminotransferase 487 U/L (12-78); Albumin Level 3.4 g/dl (3.5-5.0); Albumin/Globulin Ratio 0.9 (1.1-1.8); Alkaline Phosphatase 142 U/L (38-126); Anion Gap 16.2 mEq/L (5-15); Aspartate Amino Transferase 487 U/L (14-36); Bilirubin,Total 0.5 mg/dl (0.2-1.3); Blood Urea Nitrogen 52 mg/dl (7-17); Calcium 9.1 mg/dl (8.4-10.2); Carbon Dioxide 22 mmol/L (22.0-30.0); Chloride 96 mmol/L (98-107); Creatinine Clearance Estimated 16 mL/min (50-200); Estimated Glomerular Filt Rate 14 ml/min (>60); GFR (African American) 17 ML/MIN (>60); Globulin 3.7 g/dL (1.3-3.2); Glucose 165 mg/dl (74-100); Potassium 5.2 mmoL/L (3.5-5.1); Sodium 129 mmol/L (136-145); Total Protein,Serum 7.1 g/dl (6.3-8.2)
[2023-08-09] MEDS: ACETAMINOPHEN 1,000MG/100ML VIAL 1000 MG IV (19:33)
[2023-08-09] MEDS: KETOROLAC 30MG/ML VIAL 15 MG IV (19:33)
[2023-08-09] MEDS: PIPERACILLIN/TAZO 3.375 GM in 0.9 % SODIUM CHLORIDE 50 ML IV (19:40)
--- NOTE | 2023-08-09 19:43 | CT_ITS ---
PROCEDURE INFORMATION: Exam: CT Chest Without Contrast; Diagnostic Exam date and time: 08/09/2023 7:46 PM Age: 73 years old Clinical indication: Dyspnea; Additional info: Acute on chronic hypoxemic respiratory failure TECHNIQUE: Imaging protocol: Diagnostic computed tomography of the chest without contrast. Radiation optimization: All CT scans at this facility use at least one of these dose optimization techniques: automated exposure control; mA and/or kV adjustment per patient size (includes targeted exams where dose is matched to clinical indication); or iterative reconstruction. COMPARISON: 1. CT LUNG SCREENING 11/03/2022 2:[address] CHEST WO CON 09/24/2021 12:53 PM [address] PT PET [address] Skull Base to Midthigh 05/29/2021 10:55 AM FINDINGS: Lungs: There are scattered areas of emphysema throughout the lungs. Scattered areas of bronchial wall thickening which are likely chronic inflammatory. A few areas of subpleural reticulation are noted, nonspecific. Lingular calcified granulomas noted. Pleural spaces: Pleural surfaces are smooth, and there are no pleural effusions, pneumothoraces, or pleural plaques noted. Heart: The heart size is within normal limits, and the pericardium appears clear with no signs of pericardial effusion or thickening. Coronary arteries: There is moderate coronary atherosclerotic disease/calcification although evaluation is limited secondary to the non gated nature of the study. Mediastinal space: The mediastinum appears unremarkable with no evidence of masses, lymphadenopathy, or mediastinal widening. Hilar structures including the major bronchi and vessels appear intact. Lymph nodes: There are mildly prominent mediastinal lymph nodes which are nonenlarged. Vasculature: There is atherosclerotic disease of the visualized aorta and its major branch vessels. Intraperitoneal space: Please see the dedicated interpretation of abdomen and pelvis for findings in that region. Bones/joints: There is diffuse degenerative disease of the visualized osseous structures. Soft tissues: Unremarkable. Other findings: Scattered areas of parenchymal opacity, some of which appear more nodular than others such as at the medial posterior right apex measuring up to 3 cm (image 25 series 3). IMPRESSION: 1. Multifocal consolidative opacities which may reflect infection. Some of these areas are more nodular and a follow-up examination at conclusion of patient's acute symptoms is suggested 2. Please see the dedicated interpretation of abdomen and pelvis for findings in that region. COMMENTS: The presence of pulmonary emphysema on CT is an independent risk factor for lung cancer. In the absence of a history or active diagnosis of lung cancer, it is recommended that this patient with emphysema be evaluated for enrollment in a low dose CT lung cancer screening program.
--- NOTE | 2023-08-09 19:43 | CT_ITS ---
PROCEDURE INFORMATION: Exam: CT Abdomen And Pelvis Without Contrast Exam date and time: 08/09/2023 8:07 PM Age: 73 years old Clinical indication: Other: Transaminitis; Additional info: Transaminitis, shock TECHNIQUE: Imaging protocol: Computed tomography of the abdomen and pelvis without contrast. Radiation optimization: All CT scans at this facility use at least one of these dose optimization techniques: automated exposure control; mA and/or kV adjustment per patient size (includes targeted exams where dose is matched to clinical indication); or iterative reconstruction. COMPARISON: 1. CT BONY PELVIS 07/14/2023 1:21 AM 2. PT PET CT Skull Base to Midthigh 05/29/2021 10:[address] ABDOMEN PELVIS W CON 01/24/2020 8:20 PM FINDINGS: Liver: Normal. Gallbladder and bile ducts: The patient is status post cholecystectomy. Pancreas: There is fatty replacement of the pancreas. Spleen: Normal. Adrenal glands: The adrenal glands appear normal. Kidneys and ureters: There are no soft tissue renal masses or hydronephrosis. Stomach and bowel: There is large volume stool throughout the colon. There are scattered colonic diverticula without evidence for active diverticulitis. Appendix: No evidence of appendicitis. Intraperitoneal space: Unremarkable. Vasculature: The abdominal aorta and its major branches appear normal without evidence of aneurysm or stenosis. There are pelvic phleboliths. Lymph nodes: No lymphadenopathy. Urinary bladder: Unremarkable as visualized. Reproductive: Reproductive viscera is poorly evaluated due to streak artifact from bilateral hip arthroplasties. The uterus is not well seen due to streak artifact and correlation for prior hysterectomy is suggested. Bones/joints: Prior bilateral total hip arthroplasty with associated streak artifact that obscures evaluation of the pelvis. The urinary bladder is not well evaluated due to streak artifact from bilateral hip arthroplasties. Pelvic lymphatic chains are poorly evaluated secondary to streak artifact from bilateral hip arthroplasties. There is anterolisthesis of L4 on L5. Soft tissues: Fat containing ventral abdominal wall hernias. Other findings: Please see the dedicated interpretation of the thorax for findings in that region. IMPRESSION: 1. No acute inflammatory or obstructive process is identified. Incidental findings are described within the findings section. 2. Please see the dedicated interpretation of the thorax for findings in that region. 3. Bilateral hip arthroplasties with streak artifact that limits evaluation of the pelvis.
[2023-08-09] MEDS: NOREPINEPHRINE BITARTRATE/D5W 8 MG/250 ML PLAST..BAG 15 MG IV (19:44)
[2023-08-09 19:45] LABS: Troponin I 0.02 ng/ml (0.00-0.034)
[2023-08-09 19:45] LABS: Lactate Venous 1.4 mmol/L (0.4-2.0); VBG Base Excess -8.4 mmol/L (-2.4-2.3); VBG HCO3 18.9 mmol/L (23-30); VBG PCO2 44.7 mmol/L (35-51); VBG PH 7.25 mmol/L (7.31-7.41); VBG Total CO2 20.3 mmol/L (23-27)
[2023-08-09] MEDS: VANCOMYCIN CONSULT REQUEST 1 EACH NOTAPPLIC (19:48)
[2023-08-09] MEDS: VANCOMYCIN/WATER FOR INJ (PEG) 1.5 GM/300 ML PIGGYBACK IV (19:48)
[2023-08-09 19:50] LABS: Procalcitonin 0.408 ng/mL (0.0-2.0)
[2023-08-09 19:53] LABS: Lipase 99 U/L (23-300)
--- NOTE | 2023-08-09 19:57 | PC.NURSE ---
Addendum entered by Amy Stephens RN 08/09/23 20:08: not hospitalistindu. Original Note: called house for admit; diagnosis sepsis, hospitalist
--- NOTE | 2023-08-09 20:48 | PC.NURSE ---
Attempted report to [facility], awaiting return call.
[2023-08-09 20:53] LABS: Microscopic, Urine URINE MICROSCOPIC (MICROSCOPIC)
[2023-08-09 20:57] LABS: Lymphocytes % 12 % (10-50); Monocytes % 1 % (2-9); Neutrophils % 87 % (42-76); Total Cells Counted 100
[2023-08-09 20:58] LABS: Platelet Estimate Slight Increase
[2023-08-09 20:59] LABS: RBC Morphology Normal
--- NOTE | 2023-08-09 21:04 | PC.NURSE ---
Nurse to nurse report given to Alea CHAU.
[2023-08-09 21:05] LABS: Appearance,Urine CLOUDY (Clear); Bilirubin,Urine Negative (Negative); Blood, Urine 3+ (Negative); Color,Urine YELLOW (Yellow); Glucose,Urine (UA) 2+ (Negative); Ketones,Urine Negative (Negative); Leukocyte Esterase,Urine 2+ (Negative); Nitrate,Urine Negative (Negative); Protein,Urine 1+ (Negative); Urobilinogen,Urine 0.2 EU/dl (0.2)
[2023-08-09 21:12] LABS: Ammonia < 9 umol/L (9-30); Lactic Acid 0.9 mmol/L (0.7-2.1)
[2023-08-09 21:17] LABS: Bacteria,Urine 2+ /lpf; RBC,Urine Occasional #/hpf (0-3); Squamous Epithelial Cell,Urine Occasional #/hpf (0-5); WBC,Urine TNTC #/hpf (0-3); Yeast,Urine Occasional /lpf
[2023-08-09 22:32] LABS: Troponin I 0.02 ng/ml (0.00-0.034)
[2023-08-09] MEDS: AZITHROMYCIN 500 MG in 0.9 % SODIUM CHLORIDE 250 ML 250 MG IV (23:22)
[2023-08-10] VITALS (35 sets, daily range): BP systolic 67–134; BP diastolic 27–63; PULSE 58–83; RESP 12–20; TEMP 36.4–36.9; O2SAT 97–100; BMI 29.8
[2023-08-10 01:14] LABS: Troponin I 0.02 ng/ml (0.00-0.034)
[2023-08-10] MEDS: NOREPINEPHRINE BITARTRATE/D5W 8 MG/250 ML PLAST..BAG 28.13 MG IV (05:12)
--- NOTE | 2023-08-10 07:40 | EXP.PHA.CONS ---
Pharmacy Consult Date: 08/10/23 Time: 07:40 Referring provider: TRAMAINE Reason for Consult:: VANCOMYCIN DOSING CONSULT Allergies Allergy/AdvReac Type Severity Reaction Status Date / Time alendronate sodium Allergy Intermediate Dizziness Verified 07/30/23 14:25 [From Fosamax] isosorbide Allergy Unknown Verified 07/30/23 14:25 allergy reaction atorvastatin [From Lipitor] AdvReac Intermediate Weakness Verified 07/30/23 14:25 tuberculin,PPD,multi-puncture AdvReac Mild POSITIVE Verified 07/30/23 14:25 REACTOR Home Medications Medication Instructions Recorded Confirmed Type montelukast 10 mg tablet 10 mg PO PM 11/09/19 08/09/23 History (Singulair) empagliflozin 10 mg tablet 25 mg PO DAILY 02/16/22 08/09/23 History (Jardiance) rosuvastatin 40 mg tablet 40 mg PO DAILY 02/16/22 08/09/23 History tiotropium bromide 1.25 2 puff inhalation DAILY 02/17/22 08/09/23 History mcg/actuation mist for inhalation (Spiriva Respimat) amiodarone 200 mg tablet 200 mg PO DAILY 05/15/22 08/09/23 History ferrous sulfate 325 mg (65 mg 325 mg PO BID Supplement 05/15/22 08/09/23 History iron) tablet (Feosol) pantoprazole 40 mg tablet,delayed 40 mg PO DAILY 05/15/22 08/09/23 History release sennosides 8.6 mg tablet (senna) 8.6 mg PO DAILY Constipation 05/15/22 08/09/23 History diltiazem HCl 180 mg 180 mg PO BID 01/03/23 08/09/23 History capsule,extended release 24 hr, controlled (DILT-XR) gabapentin 100 mg capsule 100 mg PO BID Neuropathy #60 caps 04/08/23 08/09/23 Rx bisoprolol fumarate 10 mg tablet 10 mg PO DAILY 05/19/23 08/09/23 History primidone 50 mg tablet 100 mg PO HS 05/19/23 08/09/23 History bupropion HCl 150 mg tablet,12 hr 150 mg PO DAILY 08/09/23 08/09/23 History sustained-release (Wellbutrin SR) magnesium oxide 400 mg (241.3 mg 400 mg PO DAILY 08/09/23 08/09/23 History magnesium) tablet telmisartan 20 mg tablet 20 mg PO DAILY 08/09/23 08/09/23 History New Prescriptions to Start Prescriptions: Height: 1.55 m Weight: 71.622 kg Laboratory Results:: Laboratory Results - last 24 hr 08/09/23 18:45: VBG pH 7.25 L, VBG pCO2 44.7, VBG pO2 45.0 H, VBG HCO3 18.9 L, VBG Total CO2 20.3 L, VBG O2 Saturation 69.0, VBG Base Excess -8.4 L, VBG Lactic Acid 1.4 08/09/23 18:51: Chlamy pneumoniae PCR Not detected, Adenovirus (PCR) Not detected, B. pertussis DNA (PCR) Not detected, Coronavirus OC43 (PCR) Not detected, Coronavirus HKU1 (PCR) Not detected, Coronavirus 229E (PCR) Not detected, SARS-CoV-2 (PCR) Not detected, Coronavirus NL63 (PCR) Not detected, Human Metapneumovir PCR Not detected, Influenza A (H1) PCR Not detected, Influ A (H1N1/09) PCR Not detected, Influenza A (H3) PCR Not detected, Influenza Type A (PCR) Not detected, Influenza Type B (PCR) Not detected, M. pneumoniae (PCR) Not detected, Parainfluenza 1 (PCR) Not detected, Parainfluenza 2 (PCR) Not detected, Parainfluenza 3 (PCR) Not detected, Parainfluenza 4 (PCR) Not detected, RSV (PCR) Not detected, Entero/Rhino (PCR) Not detected 08/09/23 19:00: WBC 9.3, RBC 2.89 L, Hgb 8.9 L, Hct 27.0 L, MCV 93.4, MCH 30.9, MCHC 33.1, RDW 17.1, Plt Count 566 H, MPV 7.6, Neut % (Auto) 87.0 H, Lymph % (Auto) 7.4 L, [place] % (Auto) 5.1, Eos % (Auto) 0.3, Baso % (Auto) 0.3, Neut # (Auto) 8.1 H, Lymph # (Auto) 0.7, [place] # (Auto) 0.5, Eos # (Auto) 0.0, Baso # (Auto) 0.0, Total Counted 100, Neutrophils % (Manual) 87 H, Lymphocytes % (Manual) 12, Monocytes % (Manual) 1 L, Platelet Estimate Slight increase, RBC Morphology Normal, Sodium 129 L, Potassium 5.2 H, Chloride 96 L, Carbon Dioxide 22, Anion Gap 16.2 H, BUN 52 H, Creatinine 3.20 H, Estimated Creat Clear 16, Estimated GFR 14 L*, Est GFR ( Amer) 17 L*, Glucose 165 H, Calcium 9.1, Magnesium 2.3, Total Bilirubin 0.5, AST 487 H*, ALT 487 H*, Alkaline Phosphatase 142 H, Troponin I 0.02, Total Protein 7.1, Albumin 3.4 L, Globulin 3.7 H, Albumin/Globulin Ratio 0.9 L, Lipase 99, Procalcitonin 0.408 08/09/23 20:40: Urine Color Yellow, Urine Appearance Cloudy, Urine pH 6.0, Ur Specific [place] 1.020, Urine Protein 1+, Urine Glucose (UA) 2+, Urine Ketones Negative, Urine Blood 3+, Urine Nitrate Negative, Urine Bilirubin Negative, Urine Urobilinogen 0.2, Ur Leukocyte Esterase 2+ A, Urine RBC Occasional, Urine WBC Tntc, Ur Squamous Epith Cells Occasional, Urine Bacteria 2+, Urine Yeast Occasional 08/09/23 20:56: Lactate 0.9, Ammonia < 9 L 08/09/23 21:45: Troponin I 0.02 08/10/23 00:30: Troponin I 0.02 Medical History: 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 Constipation Elevated liver enzymes Hypokalemia Wheeze Onychodystrophy History of smoking 30 or more pack years Anemia Stage 3a chronic kidney disease (CKD) GI bleed Pneumonia Exposure to TB Mediastinal lymphadenopathy Hilar lymphadenopathy Multiple lung nodules on CT Encounter for screening for malignant neoplasm of lung in current smoker with 30 pack year history or greater Smoking greater than 30 pack years Asthma-chronic obstructive pulmonary disease overlap syndrome Asthma COPD mixed type PAF (paroxysmal atrial fibrillation) Atrial fibrillation with rapid ventricular response Acute respiratory failure with hypoxia Pneumonia Pneumonia due to COVID-19 virus Kidney disease Rheumatic fever/heart disease Arthritis Diabetes mellitus, type 2 Sepsis Obesity (BMI 30.0-34.9) Non-STEMI (non-ST elevated myocardial infarction) Multifocal atrial tachycardia Coronary artery disease Hypertension Hyperlipidemia COPD (chronic obstructive pulmonary disease) Tobacco use Ileus, unspecified SIRS (systemic inflammatory response syndrome) Sepsis Gastroenteritis Right lower lobe pneumonia Pincer nail deformity Type 2 diabetes mellitus with diabetic neuropathy, without long-term current use of insulin Bilateral lower extremity edema Diabetic foot Keratosis Onychogryphosis Pre-ulcerative calluses Assessment and Plan Assessment and plan all Dx Assessment and Plan for all problems:: Pharmacokinetic dosing service Objective: Age: 73 yo Serum creatinine: 3.2 mg/dL Height: 61.0 Inches Weight (kg): 71.622 Diagnosis: SEPSIS Assessment: IBW (kg): 47.80 Dosing wt(kg): 71.622 Estimated Creatinine clearance (ml/min): 11.8 CRCL method: Cockcroft and Gault using ibw(default). Drug selected: Vancomycin Loading dose (mg): 1500 MG Vd (liters): 53.7 (factor used: 0.75 L/kg) Mu (hr-1): 0.014 Half life (hrs): 49.51 CLvanco=?? 0.752 L/hr Recommended dose: 1250 mg Interval: 72 hrs Infusion time (hrs): 2.0 Predicted peak (mcg/mL): 36.1 Predicted trough (mcg/mL): 13.55 Total body weight is being used for vancomycin dosing. Recommendations: Give Vancomycin 1250 mg q 72 hrs with an expected Cpeak of 36.1 mcg/ml and an expected Ctrough of 13.55 mcg/ml TO START 08/12/23 AT 1900, ONE TIME LOADING DOSE OF VANCOMYCIN 1500 MG IV GIVEN 08/09/23 AT 1948. AUC 0-24 /LILLI Data: -/ LILLI 0.5 mcg/mL:?? AUC/LILLI:? 1108.2 LILLI 1.0 mcg/mL:?? AUC/LILLI:? 554.1 --------- LILLI 1.5 mcg/mL:?? AUC/LILLI:? 369.4 LILLI 2.0 mcg/mL:?? AUC/LILLI:? 277.0 Thank you for the consult
--- NOTE | 2023-08-10 09:15 | EXP.HP ---
History of Present Illness *Admission Date: 08/10/23 *Reason for visit:: Weakness, altered mental status, *History of present illness: HPI narrative: Patient presents via EMS initially with a chief complaint of lethargy. Patient's daughter noted that she was less responsive to her today seemed very weak so called EMS. EMS reports patient's oxygen saturation at the scene was in the 70s. On arrival to the emergency department patient is responsive and oriented to person place and circumstance but she is hypotensive with a pressure in the 70s but a heart rate of 58. Patient is also on multiple rate controlling medications including bisoprolol and diltiazem. Patient denies chest pain fever chills hemoptysis hematochezia melena nausea vomiting diarrhea but does report just feeling weak . Medical Decision Narrative: In summary patient is a 73-year-old female who presents to the emergency department for evaluation of hypoxia and hypotension. Patient is hemodynamically unstable with blood pressure of 79 and a heart rate of 58 on arrival satting at 99% on 4 L by nasal cannula but with no increased work of breathing upon arrival, afebrile. Physical exam is remarkable for a patient who is slightly lethargic but arousable and oriented to person place and circumstance with a Glascow coma score 15. Skin is cool to touch. I am unable to elicit any focal findings on otherwise unremarkable physical exam. Differential diagnosis includes septic shock, ACS, PE etc. Initial workup will be conducted with hematologic labs CT scan of the chest abdomen pelvis urinalysis. Initial interventions include fluid bolus Levophed Toradol Tylenol vancomycin and Zosyn after blood cultures. Initial workup reviewed by me shows a normal white count but acute on chronic renal failure, markedly elevated AST and ALT, hyponatremia, hyperkalemia but hemoconcentrated. Given the initial findings I had an interactive discussion regarding patient management with Dr. Clemens who agreed with admission for further evaluation and care The above as per ER documentation This a.m. patient states she really has not recovered since her last hospitalization ( 07/23-07/28/2023) for pneumonia. She has continued with a cough. She feels that she has been eating and drinking as usual. Patient has a Saeed to bedside drainage. She remains on Levophed gtt and nursing is beginning to wean. O2 sats have been good on 2 L per nasal cannula. Chest CT FINDINGS: Lungs: There are scattered areas of emphysema throughout the lungs. Scattered areas of bronchial wall thickening which are likely chronic inflammatory. A few areas of subpleural reticulation are noted, nonspecific. Lingular calcified granulomas noted. Pleural spaces: Pleural surfaces are smooth, and there are no pleural effusions, pneumothoraces, or pleural plaques noted. Heart: The heart size is within normal limits, and the pericardium appears clear with no signs of pericardial effusion or thickening. Coronary arteries: There is moderate coronary atherosclerotic disease/calcification although evaluation is limited secondary to the non gated nature of the study. Mediastinal space: The mediastinum appears unremarkable with no evidence of masses, lymphadenopathy, or mediastinal widening. Hilar structures including the major bronchi and vessels appear intact. Lymph nodes: There are mildly prominent mediastinal lymph nodes which are nonenlarged. Vasculature: There is atherosclerotic disease of the visualized aorta and its major branch vessels. Intraperitoneal space: Please see the dedicated interpretation of abdomen and pelvis for findings in that region. Bones/joints: There is diffuse degenerative disease of the visualized osseous structures. Soft tissues: Unremarkable. Other findings: Scattered areas of parenchymal opacity, some of which appear more nodular than others such as at the medial posterior right apex measuring up to 3 cm (image 25 series 3). IMPRESSION: 1. Multifocal consolidative opacities which may reflect infection. Some of these areas are more nodular and a follow-up examination at conclusion of patient's acute symptoms is suggested 2. Please see the dedicated interpretation of abdomen and pelvis for findings in that region. abd/pelvis CT IMPRESSION: 1. No acute inflammatory or obstructive process is identified. Incidental findings are described within the findings section. 2. Please see the dedicated interpretation of the thorax for findings in that region. 3. Bilateral hip arthroplasties with streak artifact that limits evaluation of the pelvis. [facility] Disclaimer: The information contained in this section may have been updated after the patient was seen, as this information can be updated by other users. 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 Constipation Elevated liver enzymes Hypokalemia Wheeze Onychodystrophy History of smoking 30 or more pack years Anemia Stage 3a chronic kidney disease (CKD) GI bleed Pneumonia Exposure to TB Mediastinal lymphadenopathy Hilar lymphadenopathy Multiple lung nodules on CT Encounter for screening for malignant neoplasm of lung in current smoker with 30 pack year history or greater Smoking greater than 30 pack years Asthma-chronic obstructive pulmonary disease overlap syndrome Asthma COPD mixed type PAF (paroxysmal atrial fibrillation) Atrial fibrillation with rapid ventricular response Acute respiratory failure with hypoxia Pneumonia Pneumonia due to COVID-19 virus Kidney disease Rheumatic fever/heart disease Arthritis Diabetes mellitus, type 2 Sepsis Obesity (BMI 30.0-34.9) Non-STEMI (non-ST elevated myocardial infarction) Multifocal atrial tachycardia Coronary artery disease Hypertension Hyperlipidemia COPD (chronic obstructive pulmonary disease) Tobacco use Ileus, unspecified SIRS (systemic inflammatory response syndrome) Sepsis Gastroenteritis Right lower lobe pneumonia Pincer nail deformity Type 2 diabetes mellitus with diabetic neuropathy, without long-term current use of insulin Bilateral lower extremity edema Diabetic foot Keratosis Onychogryphosis Pre-ulcerative calluses Surgical History Hx of removal of ovary History of cholecystectomy History of hip surgery History of coronary artery stent placement Family History (Updated 08/10/23 @ 11:36 by Yomaira Almanzar APRN) Other Coronary artery disease Diabetes Hypertension Social History Smoking Status: Never smoker years smoked: 50 smoking status stop date: 2 years ago second hand exposure: Yes alcohol intake: never substance use type: denies use current occupational status: retired Travel in the last 8 weeks: None household members: none housing: apartment lives independently: Yes marital status: current occupational exposures/hazards: No caffeine: Yes Review of Systems Constitutional Constitutional: Denies body ache(s), Denies fever(s), Denies frequent falls, Denies headache(s) and Reports weakness Eyes Eyes: Denies change in vision ENT Ears, Nose, Mouth, and Throat: Denies otalgia, Denies headache(s) and Denies sore throat *Cardiovascular Cardiovascular: Denies chest pain and Reports dyspnea (has been wearing O2 continuously at home) *Respiratory Respiratory: Denies chest congestion, Reports cough and Reports dyspnea (has been wearing O2 continuously at home) *Gastrointestinal Gastrointestinal: Denies abdominal pain, Denies change in bowel habits, Denies diarrhea, Denies nausea and Denies vomiting *Genitourinary Genitourinary: Denies dysuria *Musculoskeletal Musculoskeletal: Reports muscle weakness *Neurologic Neurologic: Denies frequent falls, Denies headache(s) and Reports weakness Comments: Altered mental status Meds Home Medications and Allergies Home Medications Medication Instructions Recorded Confirmed Type montelukast 10 mg tablet 10 mg PO PM 11/09/19 08/10/23 History (Singulair) rosuvastatin 40 mg tablet 40 mg PO DAILY 02/16/22 08/10/23 History tiotropium bromide 1.25 2 puff inhalation DAILY 02/17/22 08/10/23 History mcg/actuation mist for inhalation (Spiriva Respimat) amiodarone 200 mg tablet 200 mg PO DAILY 05/15/22 08/10/23 History ferrous sulfate 325 mg (65 mg 325 mg PO BID 05/15/22 08/10/23 History iron) tablet (Feosol) pantoprazole 40 mg tablet,delayed 40 mg PO DAILY 05/15/22 08/10/23 History release sennosides 8.6 mg tablet (senna) 8.6 mg PO DAILY 05/15/22 08/10/23 History diltiazem HCl 180 mg 180 mg PO DAILY 01/03/23 08/10/23 History capsule,extended release 24 hr, controlled (DILT-XR) bisoprolol fumarate 10 mg tablet 10 mg PO DAILY 05/19/23 08/10/23 History primidone 50 mg tablet 100 mg PO HS 05/19/23 08/10/23 History magnesium oxide 400 mg (241.3 mg 400 mg PO DAILY 08/09/23 08/10/23 History magnesium) tablet telmisartan 20 mg tablet 20 mg PO DAILY 08/09/23 08/10/23 History clopidogrel 75 mg tablet 75 mg PO DAILY 08/10/23 08/10/23 History empagliflozin 25 mg tablet 25 mg PO DAILY 08/10/23 08/10/23 History (Jardiance) gabapentin 100 mg capsule 100 mg PO BID 08/10/23 08/10/23 History levothyroxine 75 mcg tablet 75 mcg PO DAILY 08/10/23 08/10/23 History potassium chloride 10 mEq 10 meq PO DAILY 08/10/23 08/10/23 History tablet,extended release New Prescriptions to Start Prescriptions: Allergies Allergy/AdvReac Type Severity Reaction Status Date / Time alendronate sodium Allergy Intermediate Dizziness Verified 07/30/23 14:25 [From Fosamax] isosorbide Allergy Unknown Verified 07/30/23 14:25 allergy reaction atorvastatin [From Lipitor] AdvReac Intermediate Weakness Verified 07/30/23 14:25 tuberculin,PPD,multi-puncture AdvReac Mild POSITIVE Verified 07/30/23 14:25 REACTOR Exam Data for Last 24 hours Vital signs and Labs for Last 24 Hours: Temp Pulse Resp BP Pulse Ox O2 Del Method O2 Flow Rate 98.4 F 61 18 109/43 L 97 Nasal Cannula 1 08/10/23 08:00 08/10/23 08:18 08/10/23 08:18 08/10/23 08:18 08/10/23 08:18 08/10/23 08:18 08/10/23 08:18 Laboratory Results - last 24 hr 08/09/23 18:45: VBG pH 7.25 L, VBG pCO2 44.7, VBG pO2 45.0 H, VBG HCO3 18.9 L, VBG Total CO2 20.3 L, VBG O2 Saturation 69.0, VBG Base Excess -8.4 L, VBG Lactic Acid 1.4 08/09/23 18:51: Chlamy pneumoniae PCR Not detected, Adenovirus (PCR) Not detected, B. pertussis DNA (PCR) Not detected, Coronavirus OC43 (PCR) Not detected, Coronavirus HKU1 (PCR) Not detected, Coronavirus 229E (PCR) Not detected, SARS-CoV-2 (PCR) Not detected, Coronavirus NL63 (PCR) Not detected, Human Metapneumovir PCR Not detected, Influenza A (H1) PCR Not detected, Influ A (H1N1/09) PCR Not detected, Influenza A (H3) PCR Not detected, Influenza Type A (PCR) Not detected, Influenza Type B (PCR) Not detected, M. pneumoniae (PCR) Not detected, Parainfluenza 1 (PCR) Not detected, Parainfluenza 2 (PCR) Not detected, Parainfluenza 3 (PCR) Not detected, Parainfluenza 4 (PCR) Not detected, RSV (PCR) Not detected, Entero/Rhino (PCR) Not detected 08/09/23 19:00: WBC 9.3, RBC 2.89 L, Hgb 8.9 L, Hct 27.0 L, MCV 93.4, MCH 30.9, MCHC 33.1, RDW 17.1, Plt Count 566 H, MPV 7.6, Neut % (Auto) 87.0 H, Lymph % (Auto) 7.4 L, [place] % (Auto) 5.1, Eos % (Auto) 0.3, Baso % (Auto) 0.3, Neut # (Auto) 8.1 H, Lymph # (Auto) 0.7, [place] # (Auto) 0.5, Eos # (Auto) 0.0, Baso # (Auto) 0.0, Total Counted 100, Neutrophils % (Manual) 87 H, Lymphocytes % (Manual) 12, Monocytes % (Manual) 1 L, Platelet Estimate Slight increase, RBC Morphology Normal, Sodium 129 L, Potassium 5.2 H, Chloride 96 L, Carbon Dioxide 22, Anion Gap 16.2 H, BUN 52 H, Creatinine 3.20 H, Estimated Creat Clear 16, Estimated GFR 14 L*, Est GFR ( Amer) 17 L*, Glucose 165 H, Calcium 9.1, Magnesium 2.3, Total Bilirubin 0.5, AST 487 H*, ALT 487 H*, Alkaline Phosphatase 142 H, Troponin I 0.02, Total Protein 7.1, Albumin 3.4 L, Globulin 3.7 H, Albumin/Globulin Ratio 0.9 L, Lipase 99, Procalcitonin 0.408 08/09/23 20:40: Urine Color Yellow, Urine Appearance Cloudy, Urine pH 6.0, Ur Specific [place] 1.020, Urine Protein 1+, Urine Glucose (UA) 2+, Urine Ketones Negative, Urine Blood 3+, Urine Nitrate Negative, Urine Bilirubin Negative, Urine Urobilinogen 0.2, Ur Leukocyte Esterase 2+ A, Urine RBC Occasional, Urine WBC Tntc, Ur Squamous Epith Cells Occasional, Urine Bacteria 2+, Urine Yeast Occasional 08/09/23 20:56: Lactate 0.9, Ammonia < 9 L 08/09/23 21:45: Troponin I 0.02 08/10/23 00:30: Troponin I 0.02 I & O for Last 24 hours: Intake & Output 08/07/23 08/08/23 08/09/23 08/10/23 11:59 11:59 11:59 11:59 Intake Total 540.592 / 540.592 Output Total 400 / 400 Balance 140.592 / 140.592 Weight 157 lb 14.4 oz *Routine HEENT Exam Head: Present normocephalic and atraumatic Eye: Present PERRL; Absent conjunctival icterus, scleral injection or conjunctivae pink ENT: Present mucous membranes moist *Routine Neck Exam Neck: Present supple; Absent carotid bruit, lymphadenopathy or thyromegaly *Routine Respiratory Exam Respiratory: Present CTA bilaterally (Anteriorly and post anteriorly with poor inspiratory effort and diminished breath sounds in the bases) *Routine Cardiovascular Exam Cardiovascular: Present RRR *Routine Abdominal Exam Abdominal: Present soft and normoactive bowel sounds; Absent tenderness or distended *Routine Rectal Exam Rectal:: deferred *Routine Genitalia Exam Genitalia:: deferred *Routine Extremities Exam Extremities: Absent edema or calf tenderness *Routine Neurological Exam Neurological: Present alert and oriented X3 Assessment and Plan *Assessment and plan (1) Septic shock: Status: Acute Category: Medical Code(s): A41.9 - Sepsis, unspecified organism; R65.21 - Severe sepsis with septic shock (2) Pneumonia: Status: Acute Category: Medical Code(s): J18.9 - Pneumonia, unspecified organism (3) Chronic respiratory failure with hypoxia: Problem Comment: PSG 06/08/2023 at [facility] did not show significant RANDY. Hypoxemia but did not qualify for O2 supplementation during the test. She is already on oxygen at night and as needed during daytime. Status: Inactive Category: Medical Code(s): J96.11 - Chronic respiratory failure with hypoxia (4) Acute on chronic renal failure: Status: Acute Qualifiers: Acute renal failure type: unspecified Chronic kidney disease stage: unspecified stage Qualified Code(s): N17.9 - Acute kidney failure, unspecified; N18.9 - Chronic kidney disease, unspecified Category: Medical Code(s): N17.9 - Acute kidney failure, unspecified; N18.9 - Chronic kidney disease, unspecified (5) Urinary tract infection: Status: Acute Qualifiers: Hematuria presence: with hematuria Urinary tract infection type: site unspecified Qualified Code(s): N39.0 - Urinary tract infection, site not specified; R31.9 - Hematuria, unspecified Category: Medical Code(s): N39.0 - Urinary tract infection, site not specified (6) Cervical spinal stenosis: Problem Comment: Awaiting cervical spine MRI requested by neurosurgery, [facility] Status: Chronic Category: Medical Code(s): M48.02 - Spinal stenosis, cervical region (7) History of smoking 30 or more pack years: Status: Inactive Category: Social Hx Code(s): Z87.891 - Personal history of nicotine dependence (8) Weakness: Status: Acute Category: Medical Code(s): R53.1 - Weakness (9) Debility: Status: Acute Category: Medical Code(s): R53.81 - Other malaise (10) Tremors of nervous system: Status: Acute Category: Medical Code(s): R25.1 - Tremor, unspecified (11) Coronary artery disease: Status: Inactive Qualifiers: Associated angina: with other forms of angina Coronary Disease-Associated Artery/Lesion type: [place] artery [place] vs. transplanted heart: [place] heart Qualified Code(s): I25.118 - Atherosclerotic heart disease of [place] coronary artery with other forms of angina pectoris Category: Medical Code(s): I25.10 - Atherosclerotic heart disease of [place] coronary artery without angina pectoris (12) COPD (chronic obstructive pulmonary disease): Status: Chronic Category: Medical Code(s): J44.9 - Chronic obstructive pulmonary disease, unspecified (13) Type 2 diabetes mellitus with diabetic neuropathy, without long-term current use of insulin: Status: Chronic Category: Medical Code(s): E11.40 - Type 2 diabetes mellitus with diabetic neuropathy, unspecified (14) Transaminitis: Status: Acute Category: Medical Code(s): R74.01 - Elevation of levels of liver transaminase levels Plan Will start maintenance IV fluids and wean from Levophed drip. Monitor labs. Will stop amiodarone as well due to elevated liver function studies. Continue with antibiotics and scheduled DuoNebs
[2023-08-10] MEDS: LEVOTHYROXINE 75MCG (0.075MG) TAB 75 MCG PO (10:37)
[2023-08-10] MEDS: SODIUM CHLORIDE 0.45 % 1,000 ML 150 ML IV (10:38)
--- NOTE | 2023-08-10 10:48 | PC.NURSE ---
2 hr brief change
--- NOTE | 2023-08-10 11:33 | HMH.PHAINT1 ---
Pharmacy Intervention Comments: MEDICATION RECONCILIATION COMPLETED ON PATIENT USING EXTERNAL FILL HISTORY FROM PHARMACY AND DISCHARGE SUMMARY FROM PREVIOUS ADMISSION. -SCOTT PERRY, KELLEED
[2023-08-10 12:25] LABS: POC Glucose,Bedside 188 (70-110)
--- NOTE | 2023-08-10 13:59 | PC.NURSE ---
called and spoke with [facility] in [facility] about central line/surgery consult for Dr marie. [id number]
--- NOTE | 2023-08-10 14:26 | PC.NURSE ---
Addendum entered by Shakira Solano RN 08/10/23 17:13: 1415 Dr Moore states that once line is available please give pt a 200ml bolus Original Note: [id number] Moore that pt only has 1 functioning IV at this time and it is uncertain that it will last much longer. Parish Guzman RN attempted to start US guided IV. attempts were unsuccessful. Per Dr Moore ok to consult surgery team for central line placement r/t pt being on high dose of levophed. 1415 discussed with pt that staff is unable to obtain US guided iv. pt is agreeable to insertion/attempt of central line. verbal consent verified with Sangeeta Dunbar RN [id number] called and updated pt daughter Tammy about Central line.
--- NOTE | 2023-08-10 15:39 | EXP.SURG.CON ---
History of Present Illness *Admission Date: 08/10/23 *Reason for visit:: Need for central venous access due to lack of IV access and sepsis *History of present illness: Patient is a 73-year-old female with history of hypertension, hyperlipidemia, chronic kidney disease, CAD, COPD on home oxygen, history of paroxysmal atrial fibrillation. She was brought to the emergency department by EMS after she was noted to have lethargy and decreased responsiveness. Upon presentation to the emergency department she was noted to be hypotensive with a blood pressure of 70s. She had diminished oxygen saturations. Of note, patient was recently hospitalized from 07/24/2023 until 07/28/2023 for pneumonia. After admission she has been on Levophed drip. She has not had continuous intravenous access. Surgical consultation was obtained for central line placement. [facility] Disclaimer: The information contained in this section may have been updated after the patient was seen, as this information can be updated by other users. 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 Constipation Elevated liver enzymes Hypokalemia Wheeze Onychodystrophy History of smoking 30 or more pack years Anemia Stage 3a chronic kidney disease (CKD) GI bleed Pneumonia Exposure to TB Mediastinal lymphadenopathy Hilar lymphadenopathy Multiple lung nodules on CT Encounter for screening for malignant neoplasm of lung in current smoker with 30 pack year history or greater Smoking greater than 30 pack years Asthma-chronic obstructive pulmonary disease overlap syndrome Asthma COPD mixed type PAF (paroxysmal atrial fibrillation) Atrial fibrillation with rapid ventricular response Acute respiratory failure with hypoxia Pneumonia Pneumonia due to COVID-19 virus Kidney disease Rheumatic fever/heart disease Arthritis Diabetes mellitus, type 2 Sepsis Obesity (BMI 30.0-34.9) Non-STEMI (non-ST elevated myocardial infarction) Multifocal atrial tachycardia Coronary artery disease Hypertension Hyperlipidemia COPD (chronic obstructive pulmonary disease) Tobacco use Ileus, unspecified SIRS (systemic inflammatory response syndrome) Sepsis Gastroenteritis Right lower lobe pneumonia Pincer nail deformity Type 2 diabetes mellitus with diabetic neuropathy, without long-term current use of insulin Bilateral lower extremity edema Diabetic foot Keratosis Onychogryphosis Pre-ulcerative calluses Surgical History Hx of removal of ovary History of cholecystectomy History of hip surgery History of coronary artery stent placement Family History (Updated 08/10/23 @ 11:36 by Yomaira Almanzar APRN) Diabetes Coronary artery disease Hypertension Social History Smoking Status: Never smoker years smoked: 50 smoking status stop date: 2 years ago second hand exposure: Yes alcohol intake: never substance use type: denies use current occupational status: retired Travel in the last 8 weeks: None household members: none housing: apartment lives independently: Yes marital status: current occupational exposures/hazards: No caffeine: Yes Review of Systems Constitutional Constitutional: Denies frequent falls, Denies headache(s) and Reports weakness ENT Ears, Nose, Mouth, and Throat: Denies headache(s) *Neurologic Neurologic: Denies frequent falls, Denies headache(s) and Reports weakness Meds Home Medications and Allergies Home Medications Medication Instructions Recorded Confirmed Type montelukast 10 mg tablet 10 mg PO PM 11/09/19 08/10/23 History (Singulair) rosuvastatin 40 mg tablet 40 mg PO DAILY 02/16/22 08/10/23 History tiotropium bromide 1.25 2 puff inhalation DAILY 02/17/22 08/10/23 History mcg/actuation mist for inhalation (Spiriva Respimat) amiodarone 200 mg tablet 200 mg PO DAILY 05/15/22 08/10/23 History ferrous sulfate 325 mg (65 mg 325 mg PO BID 05/15/22 08/10/23 History iron) tablet (Feosol) pantoprazole 40 mg tablet,delayed 40 mg PO DAILY 05/15/22 08/10/23 History release sennosides 8.6 mg tablet (senna) 8.6 mg PO DAILY 05/15/22 08/10/23 History diltiazem HCl 180 mg 180 mg PO DAILY 01/03/23 08/10/23 History capsule,extended release 24 hr, controlled (DILT-XR) bisoprolol fumarate 10 mg tablet 10 mg PO DAILY 05/19/23 08/10/23 History primidone 50 mg tablet 100 mg PO HS 05/19/23 08/10/23 History magnesium oxide 400 mg (241.3 mg 400 mg PO DAILY 08/09/23 08/10/23 History magnesium) tablet telmisartan 20 mg tablet 20 mg PO DAILY 08/09/23 08/10/23 History clopidogrel 75 mg tablet 75 mg PO DAILY 08/10/23 08/10/23 History empagliflozin 25 mg tablet 25 mg PO DAILY 08/10/23 08/10/23 History (Jardiance) gabapentin 100 mg capsule 100 mg PO BID 08/10/23 08/10/23 History levothyroxine 75 mcg tablet 75 mcg PO DAILY 08/10/23 08/10/23 History potassium chloride 10 mEq 10 meq PO DAILY 08/10/23 08/10/23 History tablet,extended release New Prescriptions to Start Prescriptions: Allergies Allergy/AdvReac Type Severity Reaction Status Date / Time alendronate sodium Allergy Intermediate Dizziness Verified 07/30/23 14:25 [From Fosamax] isosorbide Allergy Unknown Verified 07/30/23 14:25 allergy reaction atorvastatin [From Lipitor] AdvReac Intermediate Weakness Verified 07/30/23 14:25 tuberculin,PPD,multi-puncture AdvReac Mild POSITIVE Verified 07/30/23 14:25 REACTOR Exam (Inpt) Vital signs and Labs for Last 24 Hours: Temp Pulse Resp BP Pulse Ox O2 Del Method O2 Flow Rate 98.4 F 64 18 109/63 L 100 Nasal Cannula 1 08/10/23 12:00 08/10/23 14:00 08/10/23 14:00 08/10/23 14:00 08/10/23 14:00 08/10/23 14:39 08/10/23 14:39 Laboratory Results - last 24 hr 08/09/23 18:45: VBG pH 7.25 L, VBG pCO2 44.7, VBG pO2 45.0 H, VBG HCO3 18.9 L, VBG Total CO2 20.3 L, VBG O2 Saturation 69.0, VBG Base Excess -8.4 L, VBG Lactic Acid 1.4 08/09/23 18:51: Chlamy pneumoniae PCR Not detected, Adenovirus (PCR) Not detected, B. pertussis DNA (PCR) Not detected, Coronavirus OC43 (PCR) Not detected, Coronavirus HKU1 (PCR) Not detected, Coronavirus 229E (PCR) Not detected, SARS-CoV-2 (PCR) Not detected, Coronavirus NL63 (PCR) Not detected, Human Metapneumovir PCR Not detected, Influenza A (H1) PCR Not detected, Influ A (H1N1/09) PCR Not detected, Influenza A (H3) PCR Not detected, Influenza Type A (PCR) Not detected, Influenza Type B (PCR) Not detected, M. pneumoniae (PCR) Not detected, Parainfluenza 1 (PCR) Not detected, Parainfluenza 2 (PCR) Not detected, Parainfluenza 3 (PCR) Not detected, Parainfluenza 4 (PCR) Not detected, RSV (PCR) Not detected, Entero/Rhino (PCR) Not detected 08/09/23 19:00: WBC 9.3, RBC 2.89 L, Hgb 8.9 L, Hct 27.0 L, MCV 93.4, MCH 30.9, MCHC 33.1, RDW 17.1, Plt Count 566 H, MPV 7.6, Neut % (Auto) 87.0 H, Lymph % (Auto) 7.4 L, [place] % (Auto) 5.1, Eos % (Auto) 0.3, Baso % (Auto) 0.3, Neut # (Auto) 8.1 H, Lymph # (Auto) 0.7, [place] # (Auto) 0.5, Eos # (Auto) 0.0, Baso # (Auto) 0.0, Total Counted 100, Neutrophils % (Manual) 87 H, Lymphocytes % (Manual) 12, Monocytes % (Manual) 1 L, Platelet Estimate Slight increase, RBC Morphology Normal, Sodium 129 L, Potassium 5.2 H, Chloride 96 L, Carbon Dioxide 22, Anion Gap 16.2 H, BUN 52 H, Creatinine 3.20 H, Estimated Creat Clear 16, Estimated GFR 14 L*, Est GFR ( Amer) 17 L*, Glucose 165 H, Calcium 9.1, Magnesium 2.3, Total Bilirubin 0.5, AST 487 H*, ALT 487 H*, Alkaline Phosphatase 142 H, Troponin I 0.02, Total Protein 7.1, Albumin 3.4 L, Globulin 3.7 H, Albumin/Globulin Ratio 0.9 L, Lipase 99, Procalcitonin 0.408 08/09/23 20:40: Urine Color Yellow, Urine Appearance Cloudy, Urine pH 6.0, Ur Specific [place] 1.020, Urine Protein 1+, Urine Glucose (UA) 2+, Urine Ketones Negative, Urine Blood 3+, Urine Nitrate Negative, Urine Bilirubin Negative, Urine Urobilinogen 0.2, Ur Leukocyte Esterase 2+ A, Urine RBC Occasional, Urine WBC Tntc, Ur Squamous Epith Cells Occasional, Urine Bacteria 2+, Urine Yeast Occasional 08/09/23 20:56: Lactate 0.9, Ammonia < 9 L 08/09/23 21:45: Troponin I 0.02 08/10/23 00:30: Troponin I 0.02 08/10/23 12:12: POC Glucose 188 H I & O for Labs for Last 24 Hours: Intake & Output 08/08/23 08/09/23 08/10/23 08/11/23 11:59 11:59 11:59 11:59 Intake Total 597.592 / 597.592 675.938 / 675.938 Output Total 460 / 460 200 / 200 Balance 137.592 / 137.592 475.938 / 475.938 Weight 157 lb 14.4 oz Constitutional: chronically ill appearing Head: Present normocephalic Neck: Present normal inspection Results Labs 08/09/23 19:00 08/09/23 19:00 Labs: Laboratory Results - last 24 hr 08/09/23 18:45: VBG pH 7.25 L, VBG pCO2 44.7, VBG pO2 45.0 H, VBG HCO3 18.9 L, VBG Total CO2 20.3 L, VBG O2 Saturation 69.0, VBG Base Excess -8.4 L, VBG Lactic Acid 1.4 08/09/23 18:51: Chlamy pneumoniae PCR Not detected, Adenovirus (PCR) Not detected, B. pertussis DNA (PCR) Not detected, Coronavirus OC43 (PCR) Not detected, Coronavirus HKU1 (PCR) Not detected, Coronavirus 229E (PCR) Not detected, SARS-CoV-2 (PCR) Not detected, Coronavirus NL63 (PCR) Not detected, Human Metapneumovir PCR Not detected, Influenza A (H1) PCR Not detected, Influ A (H1N1/09) PCR Not detected, Influenza A (H3) PCR Not detected, Influenza Type A (PCR) Not detected, Influenza Type B (PCR) Not detected, M. pneumoniae (PCR) Not detected, Parainfluenza 1 (PCR) Not detected, Parainfluenza 2 (PCR) Not detected, Parainfluenza 3 (PCR) Not detected, Parainfluenza 4 (PCR) Not detected, RSV (PCR) Not detected, Entero/Rhino (PCR) Not detected 08/09/23 19:00: WBC 9.3, RBC 2.89 L, Hgb 8.9 L, Hct 27.0 L, MCV 93.4, MCH 30.9, MCHC 33.1, RDW 17.1, Plt Count 566 H, MPV 7.6, Neut % (Auto) 87.0 H, Lymph % (Auto) 7.4 L, [place] % (Auto) 5.1, Eos % (Auto) 0.3, Baso % (Auto) 0.3, Neut # (Auto) 8.1 H, Lymph # (Auto) 0.7, [place] # (Auto) 0.5, Eos # (Auto) 0.0, Baso # (Auto) 0.0, Total Counted 100, Neutrophils % (Manual) 87 H, Lymphocytes % (Manual) 12, Monocytes % (Manual) 1 L, Platelet Estimate Slight increase, RBC Morphology Normal, Sodium 129 L, Potassium 5.2 H, Chloride 96 L, Carbon Dioxide 22, Anion Gap 16.2 H, BUN 52 H, Creatinine 3.20 H, Estimated Creat Clear 16, Estimated GFR 14 L*, Est GFR ( Amer) 17 L*, Glucose 165 H, Calcium 9.1, Magnesium 2.3, Total Bilirubin 0.5, AST 487 H*, ALT 487 H*, Alkaline Phosphatase 142 H, Troponin I 0.02, Total Protein 7.1, Albumin 3.4 L, Globulin 3.7 H, Albumin/Globulin Ratio 0.9 L, Lipase 99, Procalcitonin 0.408 08/09/23 20:40: Urine Color Yellow, Urine Appearance Cloudy, Urine pH 6.0, Ur Specific [place] 1.020, Urine Protein 1+, Urine Glucose (UA) 2+, Urine Ketones Negative, Urine Blood 3+, Urine Nitrate Negative, Urine Bilirubin Negative, Urine Urobilinogen 0.2, Ur Leukocyte Esterase 2+ A, Urine RBC Occasional, Urine WBC Tntc, Ur Squamous Epith Cells Occasional, Urine Bacteria 2+, Urine Yeast Occasional 08/09/23 20:56: Lactate 0.9, Ammonia < 9 L 08/09/23 21:45: Troponin I 0.02 08/10/23 00:30: Troponin I 0.02 08/10/23 12:12: POC Glucose 188 H Assessment and Plan *Assessment and plan (1) Septic shock: Status: Acute Category: Medical Code(s): A41.9 - Sepsis, unspecified organism; R65.21 - Severe sepsis with septic shock Plan Plan for central line placement
--- NOTE | 2023-08-10 16:11 | XR_ITS ---
FINAL REPORT CLINICAL HISTORY: central line placement COMPARISON: 08/09/2023 FINDINGS: The heart size is mildly enlarged. A central venous catheter is present with the tip in the SVC. The mediastinum is normal. There are mild chronic changes in both lungs. There are no pleural effusions. There is no pneumothorax. There is no osseous abnormality. IMPRESSION: Central venous catheter tip in the SVC. Reviewed, Interpreted and Dictated by Haroon Osborn MD Transcribed by Maria Alejandra Lainez Authenticated and [facility]
--- NOTE | 2023-08-10 16:21 | EXP.OP.NOTE ---
Date of procedure: 08/10/23 Pre-op Diagnosis:: Need for central venous access Post-op Diagnosis:: Same Procedure performed:: Placement of nontunneled triple-lumen 7.5 Hungarian catheter right subclavian vein Surgeon:: Shoaib Ortiz MD Anesthesia: local Estimated blood loss (mL): 15 Operative findings:: Seemingly normal anatomy Operative note:: Consent was obtained. Patient was positioned in Trendelenburg position. Right neck and chest were prepped and draped in the standard surgical fashion. Local anesthetic was infiltrated inferior to the right clavicle. 18-gauge needle was inserted manipulating it posterior to the right clavicle into the subclavian vein. There was good return of venous blood. Guidewire was inserted but it was unable to thread. Needle was removed and repositioned. Once again subclavian vein was cannulated with good return of venous blood. Guidewire was inserted. Small incision was made at the insertion site. Subcutaneous tissues were dilated. 7 Hungarian triple-lumen catheter was inserted over the guidewire using Seldinger technique. It was advanced to approximately the 12 cm whit. Guidewire was removed. All ports aspirated and flushed without difficulty. It was secured to the skin with silk suture. Clean dry sterile dressing was applied. Chest x-ray performed revealed good position with no pneumothorax. Condition: stable Disposition: PACU Complications:: None immediately apparent
[2023-08-10 17:30] LABS: POC Glucose,Bedside 181 (70-110)
[2023-08-10] MEDS: NOREPINEPHRINE BITARTRATE/D5W 8 MG/250 ML PLAST..BAG 22.5 MG IV (17:34)
[2023-08-10] MEDS: IPRATROPIUM/ALBUTEROL 3 ML NEB IH ×2 (18:07→23:52)
[2023-08-10] MEDS: 0.9 % SODIUM CHLORIDE 1000ML 200 ML 999 ML IV (18:18)
[2023-08-10] MEDS: AZITHROMYCIN 500 MG in 0.9 % SODIUM CHLORIDE 250 ML 250 MG IV (20:25)
[2023-08-10] MEDS: SODIUM CHLORIDE 0.45 % 1,000 ML 100 ML IV (20:26)
[2023-08-10 20:49] LABS: Basophils % 0.2 % (0.1-2.0); Eosinophils # 0.3 K/mm3 (0.0-0.4); Eosinophils % 3.2 % (0.1-12.0); Hematocrit 27.5 % (37.0-47.0); Hemoglobin 8.5 g/dL (12.2-16.2); Lymphocytes # 1.4 K/mm3 (0.7-4.5); Lymphocytes % 13.1 % (10-50); Mean Corpuscular HGB Conc 30.8 g/dL (31.8-35.4); Mean Corpuscular Hemoglobin 28.9 pg (27.0-31.2); Mean Corpuscular Volume 93.8 fl (81-99); Mean Platelet Volume 7.7 fl (7.4-10.4); Monocytes # 0.6 K/mm3 (0.1-1.0); Neutrophils # 8.3 K/mm3 (1.8-7.8); Neutrophils % 77.5 % (37.0-80.0); Platelet Count 612 K/mm3 (142-424); Red Blood Count 2.93 M/mm3 (4.20-5.40); Red Cell Distribution Width 17.1 % (11.5-17.5); White Blood Count 10.7 K/mm3 (4.8-10.8)
[2023-08-10 20:52] LABS: Chloride 99 mmol/L (98-107); Sodium 128 mmol/L (136-145)
[2023-08-10 20:53] LABS: Potassium 4.8 mmoL/L (3.5-5.1)
[2023-08-10 20:55] LABS: Alanine Aminotransferase 385 U/L (12-78); Albumin Level 2.8 g/dl (3.5-5.0); Albumin/Globulin Ratio 0.9 (1.1-1.8); Alkaline Phosphatase 153 U/L (38-126); Anion Gap 13.8 mEq/L (5-15); Aspartate Amino Transferase 424 U/L (14-36); Bilirubin,Total 0.2 mg/dl (0.2-1.3); Blood Urea Nitrogen 47 mg/dl (7-17); Carbon Dioxide 20 mmol/L (22.0-30.0); Creatinine Clearance Estimated 16 mL/min (50-200); Estimated Glomerular Filt Rate 13 ml/min (>60); GFR (African American) 15 ML/MIN (>60); Globulin 3.2 g/dL (1.3-3.2)
[2023-08-10 20:56] LABS: Calcium 8.3 mg/dl (8.4-10.2); Glucose 224 mg/dl (74-100)
[2023-08-11] VITALS (31 sets, daily range): BP systolic 96–151; BP diastolic 34–58; PULSE 60–85; RESP 11–22; TEMP 36.7–37.3; O2SAT 92–99; BMI 32.8; BMI 27.4
[2023-08-11] MEDS: NOREPINEPHRINE BITARTRATE/D5W 8 MG/250 ML PLAST..BAG 22.5 MG IV (05:30)
[2023-08-11] MEDS: LEVOTHYROXINE 75MCG (0.075MG) TAB 75 MCG PO (06:04)
[2023-08-11] MEDS: IPRATROPIUM/ALBUTEROL 3 ML NEB IH ×4 (06:42→23:20)
[2023-08-11] MEDS: SODIUM CHLORIDE 0.45 % 1,000 ML 100 ML IV ×2 (07:31→13:43)
--- NOTE | 2023-08-11 08:04 | P.PN_ITS ---
Subjective *Date: 08/11/23 *Time: 08:50 Interval history: Patient states she is much better today. Nursing staff state that she has been alert. She does eat her meals but needs to be fed due to tremors. She does remain on Levophed drip with blood pressure dropping in the 90s with sleeping. They will continue to try to wean. She has had a better urinary output and urine appears more clear at this time. Weight gain is noted. She denies chest pain and shortness of breath. She did sleep during the night. Medical Exam Vital signs and Labs for Last 24 Hours: Vital Signs Temp Pulse Pulse Resp BP BP BP 08/11/23 07:43 08/11/23 06:54 08/11/23 06:43 70 08/11/23 06:43 68 08/11/23 06:43 08/11/23 06:00 64 13 125/47 L 08/11/23 05:00 08/11/23 05:00 64 11 L 124/49 L 08/11/23 04:00 98.1 F 08/11/23 04:00 67 08/11/23 04:00 08/11/23 04:00 64 16 113/58 L 08/11/23 03:00 66 12 119/51 L 08/11/23 03:00 08/11/23 02:00 64 13 119/54 L 08/11/23 01:00 68 16 118/50 L 08/11/23 01:00 08/11/23 00:00 65 08/11/23 00:00 98.5 F 08/11/23 00:00 65 15 119/40 L 08/11/23 00:00 08/10/23 23:52 64 08/10/23 23:00 64 14 121/57 L 08/10/23 23:00 08/10/23 22:00 64 13 118/41 L 08/10/23 21:00 64 17 107/32 L 08/10/23 21:00 08/10/23 20:00 70 08/10/23 20:00 98.5 F 08/10/23 20:00 08/10/23 20:00 70 12 116/53 L 08/10/23 19:13 08/10/23 19:00 69 20 116/48 L 08/10/23 18:07 65 08/10/23 18:00 67 20 119/48 L 08/10/23 17:30 69 18 132/50 L 08/10/23 17:00 64 18 123/41 L 08/10/23 17:00 08/10/23 16:30 66 20 134/48 L 08/10/23 16:00 69 08/10/23 16:00 98.1 F 08/10/23 16:00 64 20 95/36 L 08/10/23 15:57 60 08/10/23 15:30 60 20 87/37 L 08/10/23 15:00 61 20 92/41 L 08/10/23 15:00 08/10/23 14:39 08/10/23 14:00 64 18 109/63 L 08/10/23 13:00 64 18 99/28 L 08/10/23 12:00 61 08/10/23 12:00 63 18 134/53 L 08/10/23 12:00 64 08/10/23 12:00 98.4 F 08/10/23 11:42 63 20 116/43 L 08/10/23 11:27 08/10/23 11:10 88/40 L 08/10/23 11:08 58 L 18 67/27 L 08/10/23 11:06 60 18 76/29 L 08/10/23 10:00 58 L 14 110/52 L 08/10/23 09:15 08/10/23 09:00 58 L 18 106/46 L 08/10/23 08:30 59 L 17 109/45 L 08/10/23 08:18 61 18 109/43 L Pulse Ox O2 Del Method O2 Flow Rate 08/11/23 07:43 Nasal Cannula 1 08/11/23 06:54 Nasal Cannula 1 08/11/23 06:43 08/11/23 06:43 08/11/23 06:43 96 Nasal Cannula 1 08/11/23 06:00 99 Nasal Cannula 1 08/11/23 05:00 Nasal Cannula 1 08/11/23 05:00 99 Nasal Cannula 1 08/11/23 04:00 08/11/23 04:00 08/11/23 04:00 Nasal Cannula 1 08/11/23 04:00 97 Nasal Cannula 1 08/11/23 03:00 98 Nasal Cannula 1 08/11/23 03:00 Nasal Cannula 1 08/11/23 02:00 98 Nasal Cannula 1 08/11/23 01:00 98 Nasal Cannula 1 08/11/23 01:00 Nasal Cannula 1 08/11/23 00:00 08/11/23 00:00 08/11/23 00:00 98 Nasal Cannula 1 08/11/23 00:00 Nasal Cannula 1 08/10/23 23:52 08/10/23 23:00 98 Nasal Cannula 1 08/10/23 23:00 Nasal Cannula 1 08/10/23 22:00 98 Nasal Cannula 1 08/10/23 21:00 99 Nasal Cannula 1 08/10/23 21:00 Nasal Cannula 1 08/10/23 20:00 08/10/23 20:00 08/10/23 20:00 Nasal Cannula 1 08/10/23 20:00 99 Nasal Cannula 1 08/10/23 19:13 Nasal Cannula 1 08/10/23 19:00 98 Nasal Cannula 1 08/10/23 18:07 08/10/23 18:00 100 Nasal Cannula 1 08/10/23 17:30 100 Nasal Cannula 1 08/10/23 17:00 99 Nasal Cannula 1 08/10/23 17:00 Room Air 08/10/23 16:30 99 Nasal Cannula 1 08/10/23 16:00 100 Nasal Cannula 1 08/10/23 16:00 08/10/23 16:00 100 Nasal Cannula 1 08/10/23 15:57 08/10/23 15:30 100 Nasal Cannula 1 08/10/23 15:00 100 Nasal Cannula 1 08/10/23 15:00 Nasal Cannula 1 08/10/23 14:39 Nasal Cannula 1 08/10/23 14:00 100 Nasal Cannula 1 08/10/23 13:00 100 Nasal Cannula 1 08/10/23 12:00 100 Nasal Cannula 1 08/10/23 12:00 99 Nasal Cannula 1 08/10/23 12:00 08/10/23 12:00 08/10/23 11:42 99 Nasal Cannula 1 08/10/23 11:27 Nasal Cannula 1 08/10/23 11:10 98 Nasal Cannula 1 08/10/23 11:08 98 Nasal Cannula 1 08/10/23 11:06 98 Nasal Cannula 1 08/10/23 10:00 100 Nasal Cannula 1 08/10/23 09:15 Nasal Cannula 1 08/10/23 09:00 99 Nasal Cannula 1 08/10/23 08:30 98 Nasal Cannula 1 08/10/23 08:18 97 Nasal Cannula 1 Intake and Output 08/10/23 08/11/23 08/11/23 19:59 03:59 11:59 Intake Total 1156.600 / 0249.095 1718.625 / 3142.225 Output Total 500 / 500 2050 / 2550 Balance 656.600 / 656.600 -64.375 / 592.225 Intake: Intake, Oral Amount 440 / 440 Intake, Total IV Amount 716.600 / 520.855 0173.625 / 2702.225 Norepinephrine Bitartrate/D5w 8 236 / 236 mg In 250 ml @ 2 MCG/MIN 3.75 mls/hr IV .Q24H SARAH Rx#: [id number] Sodium Chloride 0.45 % 1,000 ml 536 / 536 1492 / 2028 @ 150 mls/hr IV .Q6H40M SARAH Rx #:[id number] Output: Output, Urine Amount 500 / 500 1600 / 2100 Output, Urine Amount (Catheter) 450 / 450 Saeed 450 / 450 Other: Number of Unmeasured Voids 0 0 Weight 173 lb 12.8 oz Patient Weight 08/11/23 11:59 Weight 173 lb 12.8 oz Laboratory Results - last 24 hr 08/10/23 12:12: POC Glucose 188 H 08/10/23 17:20: POC Glucose 181 H 08/10/23 20:30: WBC 10.7, RBC 2.93 L, Hgb 8.5 L, Hct 27.5 L, MCV 93.8, MCH 28.9, MCHC 30.8 L, RDW 17.1, Plt Count 612 H, MPV 7.7, Neut % (Auto) 77.5, Lymph % (Auto) 13.1, [place] % (Auto) 6.0, Eos % (Auto) 3.2, Baso % (Auto) 0.2, Neut # (Auto) 8.3 H, Lymph # (Auto) 1.4, [place] # (Auto) 0.6, Eos # (Auto) 0.3, Baso # (Auto) 0.0, Sodium 128 L, Potassium 4.8, Chloride 99, Carbon Dioxide 20 L, Anion Gap 13.8, BUN 47 H, Creatinine 3.50 H, Estimated Creat Clear 16, Estimated GFR 13 L*, Est GFR ( Amer) 15 L*, Glucose 224 H, Calcium 8.3 L, Total Bilirubin 0.2, AST 424 H*, ALT 385 H*, Alkaline Phosphatase 153 H, Total Protein 6.0 L, Albumin 2.8 L D, Globulin 3.2, Albumin/Globulin Ratio 0.9 L I & O for Labs for Last 24 Hours: Intake & Output 08/08/23 08/09/23 08/10/23 08/11/23 11:59 11:59 11:59 11:59 Intake Total 597.592 / 689.781 7102.225 / 3142.225 Output Total 460 / 460 2550 / 2550 Balance 137.592 / 137.592 592.225 / 592.225 Weight 157 lb 14.4 oz 173 lb 12.8 oz Constitutional: Present no acute distress Comment:: Sitting up in the bed and is being fed her breakfast. Tremors of head and upper body noted Respiratory: Present CTA bilaterally Cardiac: Present Reg Rate and Rhythm GI: Present soft and normal bowel sounds; Absent distention or guarding Comment:: Saeed catheter to bedside drainage Extremities: Absent tenderness or edema Neuro: Present alert and oriented x 3 Assessment and Plan *Assessment and plan (1) Septic shock: Status: Acute Category: Medical Code(s): A41.9 - Sepsis, unspecified organism; R65.21 - Severe sepsis with septic shock (2) Urinary tract infection: Status: Acute Qualifiers: Hematuria presence: with hematuria Urinary tract infection type: site unspecified Qualified Code(s): N39.0 - Urinary tract infection, site not specified; R31.9 - Hematuria, unspecified Category: Medical Code(s): N39.0 - Urinary tract infection, site not specified (3) Transaminitis: Status: Acute Category: Medical Code(s): R74.01 - Elevation of levels of liver transaminase levels (4) Acute on chronic renal failure: Status: Acute Qualifiers: Acute renal failure type: unspecified Chronic kidney disease stage: unspecified stage Qualified Code(s): N17.9 - Acute kidney failure, unspecified; N18.9 - Chronic kidney disease, unspecified Category: Medical Code(s): N17.9 - Acute kidney failure, unspecified; N18.9 - Chronic kidney disease, unspecified (5) Pneumonia: Status: Acute Category: Medical Code(s): J18.9 - Pneumonia, unspecified organism (6) Tremor: Problem Comment: Most likely essential tremor Status: Chronic Category: Medical Code(s): R25.1 - Tremor, unspecified (7) General weakness: Status: Chronic Category: Medical Code(s): R53.1 - Weakness (8) Stage 3a chronic kidney disease (CKD): Status: Chronic Category: Medical Code(s): N18.31 - Chronic kidney disease, stage 3a (9) Weakness: Status: Acute Category: Medical Code(s): R53.1 - Weakness (10) Debility: Status: Acute Category: Medical Code(s): R53.81 - Other malaise Plan Patient had a deep line placed for IV fluids. Will continue with antibiotics, DuoNebs. Will continue to wean from Levophed drip. A.m. labs and culture results are pending
[2023-08-11] MEDS: CLOPIDOGREL 75MG TAB 75 MG PO (08:49)
[2023-08-11] MEDS: POTASSIUM CHLORIDE 20MEQ TAB 20 MEQ PO (08:49)
[2023-08-11] MEDS: predniSONE 10MG TAB 10 MG PO (08:49)
[2023-08-11 08:51] LABS: Alanine Aminotransferase 325 U/L (12-78); Albumin Level 2.6 g/dl (3.5-5.0); Albumin/Globulin Ratio 0.8 (1.1-1.8); Alkaline Phosphatase 141 U/L (38-126); Anion Gap 14.3 mEq/L (5-15); Aspartate Amino Transferase 285 U/L (14-36); Bilirubin,Total 0.3 mg/dl (0.2-1.3); Blood Urea Nitrogen 41 mg/dl (7-17); Calcium 8.4 mg/dl (8.4-10.2); Carbon Dioxide 20 mmol/L (22.0-30.0); Chloride 99 mmol/L (98-107); Creatinine Clearance Estimated 21 mL/min (50-200); Estimated Glomerular Filt Rate 15 ml/min (>60); GFR (African American) 19 ML/MIN (>60); Globulin 3.1 g/dL (1.3-3.2); Glucose 158 mg/dl (74-100); Potassium 4.3 mmoL/L (3.5-5.1); Sodium 129 mmol/L (136-145); Total Protein,Serum 5.7 g/dl (6.3-8.2)
[2023-08-11 09:22] LABS: Lipase 254 U/L (23-300)
[2023-08-11 09:58] LABS: Ferritin 216 ng/ml (11.1-264)
--- NOTE | 2023-08-11 10:36 | EXP.CARD.CON ---
History of Present Illness History of Present Illness Consult date: 08/11/23 Requesting physician: Jack Moore Consult reason: known to you Chief complaint: AMS, elevated LFT's Additional Medical History:: 1. CAD A. History of coronary stenting, 2014 B. NSTEMI, 07/10/21, JAYA to ostial proximal left main supplying all 3 vessels including LAD, circumflex and dominant RCA. 2. PAFib now NSR A. Amiodarone use, started 02/2022, stopped 07/2023 due to elevated LFT's B. No oral a/c due to history of GI bleed (Hgb 7.4 on admission with hypovolemic shock requiring pressors), hosp at [facility] (02/2022 with EGD showing multiple erosions in stomach). 3. Hypertension A. Echo, 02/2022, EF 60%, moderate concentric LVH, hypokinetic inferolateral and inferior pichardo. RVSP 41 mmHg 4. Hyperlipidemia A. Statin therapy 5. Asthma/COPD overlap syndrome A. History of tobacco use started in the age 12 and discontinued in her 60s. 6. Right lower lobe pulmonary nodule with mediastinal hilar lymphadenopathy A. Status post PET scan and EBUS FNA all negative for any possible malignant etiology. 2022 7. Diabetes mellitus type 2, treated since 2018 8. Carotid artery stenosis. A. Carotid ultrasound, 10/2022, 50 to 69% VENKATA stenosis, less than 50% LICA stenosis History of present illness: Patient presents via EMS initially with a chief complaint of lethargy. Patient's daughter noted that she was less responsive to her today seemed very weak so called EMS. EMS reports patient's oxygen saturation at the scene was in the 70s. On arrival to the emergency department patient is responsive and oriented to person place and circumstance but she is hypotensive with a pressure in the 70s but a heart rate of 58. Patient is also on multiple rate controlling medications including bisoprolol and diltiazem. Patient denies chest pain fever chills hemoptysis hematochezia melena nausea vomiting diarrhea but does report just feeling weak . Medical Decision Narrative: In summary patient is a 73-year-old female who presents to the emergency department for evaluation of hypoxia and hypotension. Patient is hemodynamically unstable with blood pressure of 79 and a heart rate of 58 on arrival satting at 99% on 4 L by nasal cannula but with no increased work of breathing upon arrival, afebrile. Physical exam is remarkable for a patient who is slightly lethargic but arousable and oriented to person place and circumstance with a Glascow coma score 15. Skin is cool to touch. I am unable to elicit any focal findings on otherwise unremarkable physical exam. Differential diagnosis includes septic shock, ACS, PE etc. Initial workup will be conducted with hematologic labs CT scan of the chest abdomen pelvis urinalysis. Initial interventions include fluid bolus Levophed Toradol Tylenol vancomycin and Zosyn after blood cultures. Initial workup reviewed by me shows a normal white count but acute on chronic renal failure, markedly elevated AST and ALT, hyponatremia, hyperkalemia but hemoconcentrated. Given the initial findings I had an interactive discussion regarding patient management with Dr. Clemens who agreed with admission for further evaluation and care The above as per ER documentation This a.m. patient states she really has not recovered since her last hospitalization ( 07/23-07/28/2023) for pneumonia. She has continued with a cough. She feels that she has been eating and drinking as usual. The above per Dr. Moore's H&P Cardiology consulted for recommendations on meds for history of A. fib for which she has been on amiodarone with maintenance of NSR due to inability to take anticoagulation related to prior GI bleed. Amiodarone stopped in setting of elevated LFT's. [facility] Disclaimer: The information contained in this section may have been updated after the patient was seen, as this information can be updated by other users. 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 Constipation Elevated liver enzymes Hypokalemia Wheeze Onychodystrophy History of smoking 30 or more pack years Anemia Stage 3a chronic kidney disease (CKD) GI bleed Pneumonia Exposure to TB Mediastinal lymphadenopathy Hilar lymphadenopathy Multiple lung nodules on CT Encounter for screening for malignant neoplasm of lung in current smoker with 30 pack year history or greater Smoking greater than 30 pack years Asthma-chronic obstructive pulmonary disease overlap syndrome Asthma COPD mixed type PAF (paroxysmal atrial fibrillation) Atrial fibrillation with rapid ventricular response Acute respiratory failure with hypoxia Pneumonia Pneumonia due to COVID-19 virus Kidney disease Rheumatic fever/heart disease Arthritis Diabetes mellitus, type 2 Sepsis Obesity (BMI 30.0-34.9) Non-STEMI (non-ST elevated myocardial infarction) Multifocal atrial tachycardia Coronary artery disease Hypertension Hyperlipidemia COPD (chronic obstructive pulmonary disease) Tobacco use Ileus, unspecified SIRS (systemic inflammatory response syndrome) Sepsis Gastroenteritis Right lower lobe pneumonia Pincer nail deformity Type 2 diabetes mellitus with diabetic neuropathy, without long-term current use of insulin Bilateral lower extremity edema Diabetic foot Keratosis Onychogryphosis Pre-ulcerative calluses Surgical History Hx of removal of ovary History of cholecystectomy History of hip surgery History of coronary artery stent placement Family History (Updated 08/10/23 @ 11:36 by Yomaira Almanzar APRN) Other Coronary artery disease Diabetes Hypertension Social History Smoking Status: Never smoker years smoked: 50 smoking status stop date: 2 years ago second hand exposure: Yes alcohol intake: never substance use type: denies use current occupational status: retired Travel in the last 8 weeks: None household members: none housing: apartment lives independently: Yes marital status: current occupational exposures/hazards: No caffeine: Yes Review of Systems Constitutional Constitutional: Denies frequent falls, Denies headache(s) and Reports weakness ENT Ears, Nose, Mouth, and Throat: Denies headache(s) *Neurologic Neurologic: Denies frequent falls, Denies headache(s) and Reports weakness Exam Data for Last 24 hours Vital signs and Labs for Last 24 Hours: Temp Pulse Resp BP Pulse Ox O2 Del Method O2 Flow Rate 98.6 F 69 22 105/34 L 97 Room Air 1 08/11/23 08:00 08/11/23 10:00 08/11/23 10:00 08/11/23 10:00 08/11/23 09:00 08/11/23 10:00 08/11/23 07:43 Laboratory Results - last 24 hr 08/10/23 12:12: POC Glucose 188 H 08/10/23 17:20: POC Glucose 181 H 08/10/23 20:30: WBC 10.7, RBC 2.93 L, Hgb 8.5 L, Hct 27.5 L, MCV 93.8, MCH 28.9, MCHC 30.8 L, RDW 17.1, Plt Count 612 H, MPV 7.7, Neut % (Auto) 77.5, Lymph % (Auto) 13.1, [place] % (Auto) 6.0, Eos % (Auto) 3.2, Baso % (Auto) 0.2, Neut # (Auto) 8.3 H, Lymph # (Auto) 1.4, [place] # (Auto) 0.6, Eos # (Auto) 0.3, Baso # (Auto) 0.0, Sodium 128 L, Potassium 4.8, Chloride 99, Carbon Dioxide 20 L, Anion Gap 13.8, BUN 47 H, Creatinine 3.50 H, Estimated Creat Clear 16, Estimated GFR 13 L*, Est GFR ( Amer) 15 L*, Glucose 224 H, Calcium 8.3 L, Total Bilirubin 0.2, AST 424 H*, ALT 385 H*, Alkaline Phosphatase 153 H, Total Protein 6.0 L, Albumin 2.8 L D, Globulin 3.2, Albumin/Globulin Ratio 0.9 L 08/11/23 07:55: Sodium 129 L, Potassium 4.3, Chloride 99, Carbon Dioxide 20 L, Anion Gap 14.3, BUN 41 H, Creatinine 3.00 H, Estimated Creat Clear 21, Estimated GFR 15 L*, Est GFR ( Amer) 19 L* D, Glucose 158 H D, Calcium 8.4, Ferritin 216, Total Bilirubin 0.3, AST 285 H D, ALT 325 H*, Alkaline Phosphatase 141 H, Total Protein 5.7 L, Albumin 2.6 L, Globulin 3.1, Albumin/Globulin Ratio 0.8 L, Lipase 254 I & O for Last 24 hours: Intake & Output 08/08/23 08/09/23 08/10/23 08/11/23 11:59 11:59 11:59 11:59 Intake Total 597.592 / 093.042 7995.600 / 3598.600 Output Total 460 / 460 2775 / 2775 Balance 137.592 / 137.592 823.600 / 823.600 Weight 157 lb 14.4 oz 173 lb 12.646 oz Microbiology Reports for the Last 24 Hours: Microbiology 08/09/23 20:40 Urine,Catheterized Urine Culture - Preliminary Constitutional Constitutional: no acute distress *Routine Respiratory Exam Respiratory: Present rhonchi *Routine Cardiovascular Exam Cardiovascular: Present RRR and murmur; Absent gallop or rubs *Routine Extremities Exam Extremities: Absent cyanosis, clubbing or edema *Routine Neurological Exam Neurological: Present alert, oriented X3 and CN II-XII intact Meds Home Medications and Allergies Home Medications Medication Instructions Recorded Confirmed Type montelukast 10 mg tablet 10 mg PO PM 11/09/19 08/10/23 History (Singulair) rosuvastatin 40 mg tablet 40 mg PO DAILY 02/16/22 08/10/23 History tiotropium bromide 1.25 2 puff inhalation DAILY 02/17/22 08/10/23 History mcg/actuation mist for inhalation (Spiriva Respimat) amiodarone 200 mg tablet 200 mg PO DAILY 05/15/22 08/10/23 History ferrous sulfate 325 mg (65 mg 325 mg PO BID 05/15/22 08/10/23 History iron) tablet (Feosol) pantoprazole 40 mg tablet,delayed 40 mg PO DAILY 05/15/22 08/10/23 History release sennosides 8.6 mg tablet (senna) 8.6 mg PO DAILY 05/15/22 08/10/23 History diltiazem HCl 180 mg 180 mg PO DAILY 01/03/23 08/10/23 History capsule,extended release 24 hr, controlled (DILT-XR) bisoprolol fumarate 10 mg tablet 10 mg PO DAILY 05/19/23 08/10/23 History primidone 50 mg tablet 100 mg PO HS 05/19/23 08/10/23 History magnesium oxide 400 mg (241.3 mg 400 mg PO DAILY 08/09/23 08/10/23 History magnesium) tablet telmisartan 20 mg tablet 20 mg PO DAILY 08/09/23 08/10/23 History clopidogrel 75 mg tablet 75 mg PO DAILY 08/10/23 08/10/23 History empagliflozin 25 mg tablet 25 mg PO DAILY 08/10/23 08/10/23 History (Jardiance) gabapentin 100 mg capsule 100 mg PO BID 08/10/23 08/10/23 History levothyroxine 75 mcg tablet 75 mcg PO DAILY 08/10/23 08/10/23 History potassium chloride 10 mEq 10 meq PO DAILY 08/10/23 08/10/23 History tablet,extended release New Prescriptions to Start Prescriptions: Allergies Allergy/AdvReac Type Severity Reaction Status Date / Time alendronate sodium Allergy Intermediate Dizziness Verified 07/30/23 14:25 [From Fosamax] isosorbide Allergy Unknown Verified 07/30/23 14:25 allergy reaction atorvastatin [From Lipitor] AdvReac Intermediate Weakness Verified 07/30/23 14:25 tuberculin,PPD,multi-puncture AdvReac Mild POSITIVE Verified 07/30/23 14:25 REACTOR Assessment and Plan *Assessment and plan (1) Septic shock: Status: Acute Category: Medical Code(s): A41.9 - Sepsis, unspecified organism; R65.21 - Severe sepsis with septic shock (2) Acute on chronic renal failure: Status: Acute Qualifiers: Acute renal failure type: unspecified Chronic kidney disease stage: unspecified stage Qualified Code(s): N17.9 - Acute kidney failure, unspecified; N18.9 - Chronic kidney disease, unspecified Category: Medical Code(s): N17.9 - Acute kidney failure, unspecified; N18.9 - Chronic kidney disease, unspecified (3) Transaminitis: Status: Acute Category: Medical Code(s): R74.01 - Elevation of levels of liver transaminase levels (4) Urinary tract infection: Status: Acute Qualifiers: Hematuria presence: with hematuria Urinary tract infection type: site unspecified Qualified Code(s): N39.0 - Urinary tract infection, site not specified; R31.9 - Hematuria, unspecified Category: Medical Code(s): N39.0 - Urinary tract infection, site not specified (5) On amiodarone therapy: Status: Acute Category: Medical Code(s): Z79.899 - Other chcf (current) drug therapy (6) Asthma-chronic obstructive pulmonary disease overlap syndrome: Status: Acute Category: Medical Code(s): J44.9 - Chronic obstructive pulmonary disease, unspecified (7) Hypertension: Status: Chronic Qualifiers: Hypertension type: primary hypertension Qualified Code(s): I10 - Essential (primary) hypertension Category: Medical Code(s): I10 - Essential (primary) hypertension (8) Hyperlipidemia: Status: Chronic Qualifiers: Hyperlipidemia type: mixed hyperlipidemia Qualified Code(s): E78.2 - Mixed hyperlipidemia Category: Medical Code(s): E78.5 - Hyperlipidemia, unspecified (9) Type 2 diabetes mellitus with diabetic neuropathy, without long-term current use of insulin: Status: Chronic Category: Medical Code(s): E11.40 - Type 2 diabetes mellitus with diabetic neuropathy, unspecified Plan 1. Septic Shock/Altered mental status with lethargy -on levophed but weaning -Multifactorial -CT of the chest shows multifocal consolidative opacities with concern for infection. -on vancomycin and azithromycin 2. Acute on chronic CKD with Cr 3.5 now down to 3.0 with IVF -baseline Cr 1.5-2.0 3. elevated LFT's -Abdominal CT negative for acute pathology with normal liver -possibly related to amiodarone but similar scenario in 03/2023 with admission for UTI that resolved without stopping amiodarone 4. PAF currently holding in NSR -amiodarone stopped this admission due to elevated LFT's -Continue bisoprolol and diltiazem for rate control and hopefully maintenance of sinus rhythm 5. Hyponatremia -Na 129 6. Chronic anemia with baseline of 9-10 -Hemoglobin this admission 8.5 7. CAD with prior stenting -troponins normal this admission 8. Emphysema/asthma -follows with Pulmonary 9. Hypothyroidism -on replacement check echo due to septic shock and hypotension continue IVF with 500 ml bolus now consider restarting amiodarone since unable to take anticoagulation due to prior GI bleed. transfuse to keep Hgb >8 in light of CAD Further recommendations to follow
[2023-08-11 10:57] LABS: POC Glucose,Bedside 243 (70-110)
[2023-08-11] MEDS: SODIUM CHLORIDE 0.45 % 500 ML 999 ML IV (11:51)
--- NOTE | 2023-08-11 11:56 | CA_ITS ---
APPROVED REPORT EXAM: Comprehensive 2D, Doppler, and color-flow Echocardiogram Firmware Architect: Mallory De La Vega RVT Ht: 5 ft 1 in Wt: 173lbs BSA: 1.78 BP: 105/34 mmHg Indications: CAD,A-FIB,SEPSIS,COPD,DM,HTN,HLD,RHEUMATIC FEVER TDS-PT FLAT ON BACK AND TREMORS 2D Dimensions IVSd 1.88 cm F: 0.6-1.0 LVEF (Visual) 57.60 % PWd 0.86 cm F: 0.6 - 1.0 LA Volume 56.90 mL LVDd 3.74 cm F: 3.9 - 5.3 LA Volume Index 31.97 mL/m2 (M/F) 16-34 LVDs 2.63 cm F: 2.2 - 3.5 EF AP4 68.10 % Left Atrium 3.81 cm F: 2.7 - 3.8 GL Strain -19.3 % RVID Base (AP4) 2.78 cm (M/F) 2.5-4.1 LVOT 1.72 cm (M/F) 1.5-2.5 M-Mode Dimensions LVDd 3.74 cm (3.5-5.7) Ao Diam 2.59 cm (2.0-3.7) LVDs 2.63 cm (3.5-5.7) IVSd 1.88 cm (0.6-1.1) PWd 0.86 cm (0.6-1.1) FS 29.70% LV Diastology E Decel Time 239 (160-240 msec) E/A Ratio 0.9 MED E' 10.9 (>= 7 cm/sec) E'/MED E' Ratio 10.20 (<= 14) LAT E' 15.0 (>= 10 cm/sec) E/LAT E' Ratio 7.41 (<= 14) Aortic Valve LVOT Max 112.0 (70-110 cm/s) AMRIT Index 0.90 cm2/m2 LVOT VTI 25.60 cm AoV Peak Neville. 170.0 (50-130 cm/s) AO Peak GR. 11.20 mmHg AO Mean GR. 6.50 (<5 mmHg) AO VTI 36.9 (18-25 cm) AMRIT (VTI) 1.61 (2.5-4.5 cm2) Mitral Valve MV E Max Neville. 111.0 (40-130 cm/s) MV A Velocity 127.0 (40-130 cm/s) E/A Ratio 0.87 MV Decel. Time 239 (160-240 ms) MV Mean Gr. 4.90 (<2mmHg) MV PHT 64.0 ms Tricuspid Valve TR P. Velocity 393.00 cm/s RAP Estimate 10.00 mmHg RVSP 71.70 mmHg Left Ventricle The left ventricle is normal size. The left ventricular systolic function is normal. The left ventricular ejection fraction is within the normal range. There is increased LV wall thickness. There is normal LV segmental wall motion. Diastolic function is indeterminate. LVEF is 55%. Right Ventricle The right ventricle is normal size. The right ventricular systolic function is normal. Atria Left atrium is mildly dilated. Right atrium is mildly dilated. There is no Doppler evidence of interatrial shunt. Aortic Valve The aortic valve is mildly thickened. There is no aortic valvular stenosis. Trace aortic regurgitation. Mitral Valve Moderate mitral annular calcification (MAC). The mitral valve leaflets are moderately thickened. Mild mitral stenosis. Mean MV gradient is 5 mmHg (HR 72 bpm). Moderate to severe mitral regurgitation Tricuspid Valve The tricuspid valve leaflets are thin and pliable. Mild tricuspid regurgitation. RVSP is 30-35 mmHg. Pulmonic Valve The pulmonary valve is normal in structure. Trace pulmonic regurgitation. Great Vessels The aortic root is normal in size. The ascending aorta is not well visualized. IVC is normal in size and collapses >50% with inspiration. Pericardium There is no pericardial effusion. Other Information Study Quality: Fair Conclusion Normal biventricular systolic function. Mild biatrial dilation. Mild MS [mean MV gradient is 5 mmHg (HR 72 bpm)] Moderate to severe MR. Mild TR. RVSP 30-35 mmHg. In the setting of moderate to severe MR, further evaluation with outpatient TOBY is recommended to evaluate true MR severity (after appropriate volume management) and underlying mechanism of MR. Electronically signed by : Bette Olvera MD 08/12/2023 00:08:26
[2023-08-11] MEDS: NOREPINEPHRINE BITARTRATE/D5W 8 MG/250 ML PLAST..BAG 11.25 MG IV ×2 (12:04→12:54)
[2023-08-11 16:42] LABS: POC Glucose,Bedside 221 (70-110)
--- NOTE | 2023-08-11 17:07 | PC.NURSE ---
Levophed weaned form 12 to 6. Patient weaned to room air, alert and oriented times 4. Patient turned q 2, roberson in place, urine yellow and clear but sediment visible. 1450 output. Lung sounds diminished.
[2023-08-11] MEDS: AZITHROMYCIN 500 MG in 0.9 % SODIUM CHLORIDE 250 ML 250 MG IV (20:10)
[2023-08-12] VITALS (47 sets, daily range): BP systolic 93–130; BP diastolic 35–68; PULSE 70–102; RESP 10–21; TEMP 36.6–37; O2SAT 92–100; BMI 27.8
[2023-08-12] MEDS: SODIUM CHLORIDE 0.45 % 1,000 ML 100 ML IV ×2 (00:39→10:44)
[2023-08-12 06:03] LABS: Basophils % 0.2 % (0.1-2.0); Eosinophils % 0.6 % (0.1-12.0); Hematocrit 24.3 % (37.0-47.0); Hemoglobin 7.4 g/dL (12.2-16.2); Lymphocytes # 0.7 K/mm3 (0.7-4.5); Lymphocytes % 8.7 % (10-50); Mean Corpuscular HGB Conc 30.3 g/dL (31.8-35.4); Mean Corpuscular Hemoglobin 28.3 pg (27.0-31.2); Mean Corpuscular Volume 93.4 fl (81-99); Mean Platelet Volume 8.7 fl (7.4-10.4); Monocytes # 0.4 K/mm3 (0.1-1.0); Monocytes % 4.8 % (1.7-9.3); Neutrophils # 6.7 K/mm3 (1.8-7.8); Neutrophils % 85.7 % (37.0-80.0); Platelet Count 466 K/mm3 (142-424); White Blood Count 7.8 K/mm3 (4.8-10.8)
[2023-08-12 06:04] LABS: MANUAL DIFFERENTIAL MANUAL DIFFERENTIAL (MANUAL DIFF)
[2023-08-12 06:08] LABS: Alanine Aminotransferase 247 U/L (12-78); Albumin Level 2.5 g/dl (3.5-5.0); Albumin/Globulin Ratio 0.8 (1.1-1.8); Alkaline Phosphatase 117 U/L (38-126); Anion Gap 12.1 mEq/L (5-15); Aspartate Amino Transferase 159 U/L (14-36); Bilirubin,Total 0.3 mg/dl (0.2-1.3); Blood Urea Nitrogen 37 mg/dl (7-17); Calcium 8.6 mg/dl (8.4-10.2); Carbon Dioxide 21 mmol/L (22.0-30.0); Chloride 104 mmol/L (98-107); Creatinine Clearance Estimated 20 mL/min (50-200); Estimated Glomerular Filt Rate 18 ml/min (>60); GFR (African American) 22 ML/MIN (>60); Glucose 188 mg/dl (74-100); Potassium 5.1 mmoL/L (3.5-5.1); Sodium 132 mmol/L (136-145); Total Protein,Serum 5.5 g/dl (6.3-8.2)
[2023-08-12] MEDS: IPRATROPIUM/ALBUTEROL 3 ML NEB IH ×4 (06:22→23:16)
[2023-08-12] MEDS: LEVOTHYROXINE 75MCG (0.075MG) TAB 75 MCG PO (06:44)
[2023-08-12] MEDS: NOREPINEPHRINE BITARTRATE/D5W 8 MG/250 ML PLAST..BAG 5.63 MG IV (06:44)
--- NOTE | 2023-08-12 08:10 | EXP.CARD.PN ---
Subjective Subjective Date: 08/12/23 Time: 08:11 Principal diagnosis: sepsis Interval history: 73-year-old white female in bed. No specific complaints but states she is not feeling well. She remains on low-dose nor epi for blood pressure support. Hemoglobin has dropped to 7.4 overnight. Patient does relate a history of blood transfusion in the past. Fluid balance is a net positive of 1900 mL. Exam Data for Last 24 hours Vital signs and Labs for Last 24 Hours: Temp Pulse Resp BP Pulse Ox O2 Del Method O2 Flow Rate 98.2 F 80 16 105/48 L 98 Room Air 1 08/12/23 07:35 08/12/23 07:35 08/12/23 07:35 08/12/23 07:35 08/12/23 07:35 08/12/23 07:35 08/11/23 13:00 Laboratory Results - last 24 hr 08/11/23 07:55: Sodium 129 L, Potassium 4.3, Chloride 99, Carbon Dioxide 20 L, Anion Gap 14.3, BUN 41 H, Creatinine 3.00 H, Estimated Creat Clear 21, Estimated GFR 15 L*, Est GFR ( Amer) 19 L* D, Glucose 158 H D, Calcium 8.4, Ferritin 216, Total Bilirubin 0.3, AST 285 H D, ALT 325 H*, Alkaline Phosphatase 141 H, Total Protein 5.7 L, Albumin 2.6 L, Globulin 3.1, Albumin/Globulin Ratio 0.8 L, Lipase 254 08/11/23 10:51: POC Glucose 243 H 08/11/23 16:33: POC Glucose 221 H 08/12/23 05:50: WBC 7.8 D, RBC 2.60 L, Hgb 7.4 L, Hct 24.3 L, MCV 93.4, MCH 28.3, MCHC 30.3 L, RDW 17.0, Plt Count 466 H, MPV 8.7, Neut % (Auto) 85.7 H, Lymph % (Auto) 8.7 L, [place] % (Auto) 4.8, Eos % (Auto) 0.6, Baso % (Auto) 0.2, Neut # (Auto) 6.7, Lymph # (Auto) 0.7, [place] # (Auto) 0.4, Eos # (Auto) 0.0, Baso # (Auto) 0.0, Sodium 132 L, Potassium 5.1, Chloride 104, Carbon Dioxide 21 L, Anion Gap 12.1, BUN 37 H, Creatinine 2.60 H, Estimated Creat Clear 20, Estimated GFR 18 L*, Est GFR ( Amer) 22 L, Glucose 188 H, Calcium 8.6, Total Bilirubin 0.3, AST 159 H D, ALT 247 H, Alkaline Phosphatase 117, Total Protein 5.5 L, Albumin 2.5 L, Globulin 3.0, Albumin/Globulin Ratio 0.8 L, Blood Type O Positive, Antibody Screen Negative, Crossmatch (AHG) See Detail I & O for Last 24 hours: Intake & Output 08/09/23 08/10/23 08/11/23 08/12/23 11:59 11:59 11:59 11:59 Intake Total 597.592 / 233.586 1213.600 / 3975.600 4029.380 / 4029.380 Output Total 460 / 460 2900 / 3100 3050 / 3050 Balance 137.592 / 137.592 793.600 / 875.600 979.380 / 979.380 Weight 157 lb 14.4 oz 145 lb 8.081 oz 147 lb 11.355 oz Microbiology Reports for the Last 24 Hours: Microbiology 08/09/23 20:40 Urine,Catheterized Urine Culture - Final Yeast Constitutional Constitutional: no acute distress *Routine Respiratory Exam Respiratory: Present diminished air movement *Routine Cardiovascular Exam Cardiovascular: Present RRR *Routine Extremities Exam Extremities: Absent edema *Routine Neurological Exam Neurological: Present alert, oriented X3 and CN II-XII intact Progress Note: A&P Assessment and plan (1) Septic shock: Status: Acute (2) Acute on chronic renal failure: Status: Acute (3) Transaminitis: Status: Acute (4) Urinary tract infection: Status: Acute (5) On amiodarone therapy: Status: Acute (6) Asthma-chronic obstructive pulmonary disease overlap syndrome: Status: Acute (7) Hypertension: Status: Chronic (8) Hyperlipidemia: Status: Chronic (9) Type 2 diabetes mellitus with diabetic neuropathy, without long-term current use of insulin: Status: Chronic Assessment and Plan Assessment and Plan for All Diagnoses:: 1. Septic Shock/Altered mental status with lethargy -on levophed but weaning -Multifactorial -CT of the chest shows multifocal consolidative opacities with concern for infection. -on vancomycin and azithromycin 2. Acute on chronic CKD with Cr 3.5 now down to 2.6 with IVF -baseline Cr 1.5-2.0 3. elevated LFT's, improving -likely reactionary to infection -Abdominal CT negative for acute pathology with normal liver -possibly related to amiodarone but similar scenario in 03/2023 with admission for UTI that resolved without stopping amiodarone 4. PAF currently holding in NSR -amiodarone stopped this admission due to elevated LFT's -holding bisoprolol and diltiazem for rate control due to hypotension 5. Hyponatremia -improved to 132 6. Chronic anemia with baseline of 9-10 -Hemoglobin this admission 8.5 down to 7.4 -transfuse 2 units today 7. CAD with prior stenting -troponins normal this admission -on plavix 8. Emphysema/asthma -follows with Pulmonary 9. Hypothyroidism -on replacement Transfuse 2 units of blood today continue IV fluids Recommend restarting amiodarone prior to discharge
[2023-08-12] MEDS: POTASSIUM CHLORIDE 20MEQ TAB 20 MEQ PO (08:32)
[2023-08-12] MEDS: 0.9 % SODIUM CHLORIDE 250 ML 25 ML IV ×2 (08:33→14:18)
[2023-08-12] MEDS: CLOPIDOGREL 75MG TAB 75 MG PO (08:33)
[2023-08-12] MEDS: predniSONE 10MG TAB 10 MG PO (08:33)
[2023-08-12 09:33] LABS: Lymphocytes % 4 % (10-50); Monocytes % 1 % (2-9); Neutrophils % 95 % (42-76); Platelet Estimate Slight Increase; RBC Morphology Normal; Total Cells Counted 100
--- NOTE | 2023-08-12 10:00 | PC.NURSE ---
Orders clarified with MD Moore. Orders received to give administer 2 units of blood. No additional units to be placed on hold at this time.
--- NOTE | 2023-08-12 10:23 | P.PN_ITS ---
Subjective *Date: 08/12/23 *Time: 10:23 Interval history: She is still on Levophed and off Bisoprolol and diltiazem. She is breathing comfortably on RA. Her renal functions show slight improvement with GFR at 18 this AM and creatinine of 2.6. Her hemaglobin has declined to 7.4. I ordered 2 Units of PRBC this morning to hold until H&H returned. With decline in Hgb cardiology has ordered administration of 2 units. Perhaps this will aid in allowing coming off of Levophed. Medical Exam Vital signs and Labs for Last 24 Hours: Vital Signs Temp Pulse Pulse Resp BP Pulse Ox O2 Del Method 08/12/23 10:21 77 08/12/23 10:21 78 08/12/23 10:00 98.2 F 79 16 100/35 L 97 Room Air 08/12/23 09:00 76 18 113/41 L 98 Room Air 08/12/23 09:00 Room Air 08/12/23 08:51 98 Room Air 08/12/23 08:00 70 08/12/23 07:50 Room Air 08/12/23 07:35 98.2 F 80 16 105/48 L 98 Room Air 08/12/23 07:00 80 11 L 110/42 L 98 Room Air 08/12/23 06:57 Room Air 08/12/23 06:23 74 08/12/23 06:23 79 08/12/23 06:23 92 L Room Air 08/12/23 06:00 76 13 114/47 L 97 Room Air 08/12/23 05:00 79 10 L 130/50 L 98 Room Air 08/12/23 05:00 Room Air 08/12/23 04:00 98 F 77 11 L 120/44 L 97 Room Air 08/12/23 04:00 Room Air 08/12/23 04:00 77 08/12/23 03:00 82 12 108/57 L 96 Room Air 08/12/23 03:00 Room Air 08/12/23 02:00 79 16 102/47 L 96 Room Air 08/12/23 01:00 86 18 103/46 L 97 Room Air 08/12/23 01:00 Room Air 08/12/23 00:30 95/68 L 08/12/23 00:00 85 08/12/23 00:00 Room Air 08/12/23 00:00 98.6 F 100 H 12 105/42 L 100 Room Air 08/11/23 23:41 82 08/11/23 23:41 80 08/11/23 23:00 79 19 115/45 L 96 Room Air 08/11/23 23:00 Room Air 08/11/23 22:00 77 17 106/43 L 96 Room Air 08/11/23 21:00 77 13 106/38 L 96 Room Air 08/11/23 21:00 Room Air 08/11/23 20:00 98.5 F 76 15 106/45 L 96 Room Air 08/11/23 20:00 Room Air 08/11/23 20:00 80 08/11/23 19:00 79 20 122/46 L 97 Room Air 08/11/23 19:00 78 20 122/46 L 97 Room Air 08/11/23 19:00 Room Air 08/11/23 18:42 82 08/11/23 18:41 83 08/11/23 18:39 92 L Room Air 08/11/23 18:00 68 22 151/58 H 97 Room Air 08/11/23 17:00 79 20 128/51 L 99 Room Air 08/11/23 17:00 Room Air 08/11/23 16:27 99.1 F 08/11/23 16:00 60 08/11/23 16:00 72 20 96/38 L 97 Room Air 08/11/23 16:00 Room Air 08/11/23 15:00 70 20 98/42 L 97 Room Air 08/11/23 15:00 Room Air 08/11/23 14:00 71 20 103/40 L 96 Room Air 08/11/23 13:00 Nasal Cannula 08/11/23 13:00 75 16 115/53 L 98 Nasal Cannula 08/11/23 12:57 99.0 F 08/11/23 12:00 70 08/11/23 12:00 76 22 123/45 L 96 Room Air 08/11/23 12:00 Room Air 08/11/23 11:25 85 08/11/23 11:25 80 08/11/23 11:00 72 20 104/43 L 98 Room Air 08/11/23 10:54 Room Air O2 Flow Rate 08/12/23 10:21 08/12/23 10:21 08/12/23 10:00 08/12/23 09:00 08/12/23 09:00 08/12/23 08:51 08/12/23 08:00 08/12/23 07:50 08/12/23 07:35 08/12/23 07:00 08/12/23 06:57 08/12/23 06:23 08/12/23 06:23 08/12/23 06:23 08/12/23 06:00 08/12/23 05:00 08/12/23 05:00 08/12/23 04:00 08/12/23 04:00 08/12/23 04:00 08/12/23 03:00 08/12/23 03:00 08/12/23 02:00 08/12/23 01:00 08/12/23 01:00 08/12/23 00:30 08/12/23 00:00 08/12/23 00:00 08/12/23 00:00 08/11/23 23:41 08/11/23 23:41 08/11/23 23:00 08/11/23 23:00 08/11/23 22:00 08/11/23 21:00 08/11/23 21:00 08/11/23 20:00 08/11/23 20:00 08/11/23 20:00 08/11/23 19:00 08/11/23 19:00 08/11/23 19:00 08/11/23 18:42 08/11/23 18:41 08/11/23 18:39 08/11/23 18:00 08/11/23 17:00 08/11/23 17:00 08/11/23 16:27 08/11/23 16:00 08/11/23 16:00 08/11/23 16:00 08/11/23 15:00 08/11/23 15:00 08/11/23 14:00 08/11/23 13:00 1 08/11/23 13:00 1 08/11/23 12:57 08/11/23 12:00 08/11/23 12:00 08/11/23 12:00 08/11/23 11:25 08/11/23 11:25 08/11/23 11:00 08/11/23 10:54 Intake and Output 08/11/23 08/12/23 08/12/23 19:59 03:59 11:59 Intake Total 1979.001 / 4251.380 2272.379 / 4251.380 Output Total 1150 / 4550 3400 / 4550 Balance 829.001 / -298.620 -1127.621 / -298.620 Intake: Intake, Oral Amount 720 / 990 270 / 990 Intake, Total IV Amount 1259.001 / 3261.380 2002.379 / 3261.380 Norepinephrine Bitartrate/D5w 8 264 / 264 mg In 250 ml @ 2 MCG/MIN 3.75 mls/hr IV .Q24H [facility] Rx#: [id number] Norepinephrine Bitartrate/D5w 8 17 / 17 mg In 250 ml @ 6 MCG/MIN 11.25 mls/hr IV .[id number] [facility] Rx#: [id number] Sodium Chloride 0.45 % 1,000 ml 1205 / 2840 1635 / 2840 @ 100 mls/hr IV .Q10H [facility] Rx#: [id number] Output: Output, Urine Amount 200 / 2850 2650 / 2850 Output, Urine Amount (Catheter) 950 / 1700 750 / 1700 Saeed 950 / 1700 750 / 1700 Other: Number of Unmeasured Voids 0 0 Weight 147 lb 11.355 oz Patient Weight 08/12/23 11:59 Weight 147 lb 11.355 oz Laboratory Results - last 24 hr 08/11/23 07:55: Ferritin 216 08/11/23 10:51: POC Glucose 243 H 08/11/23 16:33: POC Glucose 221 H 08/12/23 05:50: WBC 7.8 D, RBC 2.60 L, Hgb 7.4 L, Hct 24.3 L, MCV 93.4, MCH 28.3, MCHC 30.3 L, RDW 17.0, Plt Count 466 H, MPV 8.7, Neut % (Auto) 85.7 H, Lymph % (Auto) 8.7 L, Eaton % (Auto) 4.8, Eos % (Auto) 0.6, Baso % (Auto) 0.2, Neut # (Auto) 6.7, Lymph # (Auto) 0.7, Eaton # (Auto) 0.4, Eos # (Auto) 0.0, Baso # (Auto) 0.0, Total Counted 100, Neutrophils % (Manual) 95 H, Lymphocytes % (Manual) 4 L, Monocytes % (Manual) 1 L, Platelet Estimate Slight increase, RBC Morphology Normal, Sodium 132 L, Potassium 5.1, Chloride 104, Carbon Dioxide 21 L, Anion Gap 12.1, BUN 37 H, Creatinine 2.60 H, Estimated Creat Clear 20, Estima lizet GFR 18 L*, Est GFR ( Amer) 22 L, Glucose 188 H, Calcium 8.6, Total Bilirubin 0.3, AST 159 H D, ALT 247 H, Alkaline Phosphatase 117, Total Protein 5.5 L, Albumin 2.5 L, Globulin 3.0, Albumin/Globulin Ratio 0.8 L, Blood Type O Positive, Antibody Screen Negative, Crossmatch (AHG) See Detail 08/12/23 07:48: Blood Type Confirm O Positive I & O for Labs for Last 24 Hours: Intake & Output 08/09/23 08/10/23 08/11/23 08/12/23 11:59 11:59 11:59 11:59 Intake Total 597.592 / 004.725 7443.600 / 3975.600 4251.380 / 4251.380 Output Total 460 / 460 2900 / 3100 4550 / 4550 Balance 137.592 / 137.592 793.600 / 875.600 -298.620 / -298.620 Weight 157 lb 14.4 oz 145 lb 8.081 oz 147 lb 11.355 oz Microbiology Reports for the Last 24 Hours: Microbiology 08/09/23 20:40 Urine,Catheterized Urine Culture - Final Yeast Head: Present normocephalic Neck: Present normal inspection Respiratory: Present decreased breath sounds; Absent respiratory distress Cardiac: Present Reg Rate and Rhythm GI: Present soft; Absent tenderness Comment:: Flotron unit in place. Skin: Present intact and ecchymosis Neuro: Present Resting Tremor, alert and awake Assessment and Plan *Assessment and plan (1) Pneumonia: Status: Acute Category: Medical Code(s): J18.9 - Pneumonia, unspecified organism (2) Acute on chronic renal failure: Status: Acute Qualifiers: Acute renal failure type: unspecified Chronic kidney disease stage: unspecified stage Qualified Code(s): N17.9 - Acute kidney failure, unspecified; N18.9 - Chronic kidney disease, unspecified Category: Medical Code(s): N17.9 - Acute kidney failure, unspecified; N18.9 - Chronic kidney disease, unspecified (3) Anemia: Status: Acute Qualifiers: Anemia type: unspecified type Qualified Code(s): D64.9 - Anemia, unspecified Category: Medical Code(s): D64.9 - Anemia, unspecified (4) Type 2 diabetes mellitus with diabetic neuropathy, without long-term current use of insulin: Status: Chronic Category: Medical Code(s): E11.40 - Type 2 diabetes mellitus with diabetic neuropathy, unspecified (5) Transaminitis: Status: Acute Category: Medical Code(s): R74.01 - Elevation of levels of liver transaminase levels (6) Elevated liver enzymes: Status: Acute Category: Medical Code(s): R74.8 - Abnormal levels of other serum enzymes (7) Constipation: Status: Acute Qualifiers: Constipation type: unspecified constipation type Qualified Code(s): K59.00 - Constipation, unspecified Category: Medical Code(s): K59.00 - Constipation, unspecified (8) Tremor: Problem Comment: Most likely essential tremor Status: Chronic Category: Medical Code(s): R25.1 - Tremor, unspecified (9) General weakness: Status: Chronic Category: Medical Code(s): R53.1 - Weakness (10) Debility: Status: Acute Category: Medical Code(s): R53.81 - Other malaise Plan Transfuse 2 Units PRBC
[2023-08-12 12:11] LABS: POC Glucose,Bedside 210 (70-110)
[2023-08-12 16:47] LABS: POC Glucose,Bedside 207 (70-110)
[2023-08-12 17:17] LABS: Thyroid Stimulating Hormone 0.25 uIU/mL (0.465-4.68)
--- NOTE | 2023-08-12 17:38 | PC.NURSE ---
Pt sitting up in bed at this time. Remains on RA. Rhonchi t/o lung henderson. BP currently stable. Levophed placed on standby @ 1730. She received 2 units PRBCs this shift. Tolerated well. F/C draining to bedside with clear, yellow urine. Urine output 1525. No BM. Appetite has been fair. Call light within reach.
[2023-08-12] MEDS: VANCOMYCIN/WATER FOR INJ (PEG) 1.25 GM/250 ML PIGGYBACK IV (19:00)
--- NOTE | 2023-08-12 20:07 | XR_ITS ---
PROCEDURE INFORMATION: Exam: XR Chest Exam date and time: 08/12/2023 8:15 PM Age: 73 years old Clinical indication: Device placement; Other: Central line placement; Additional info: Verify central line placement TECHNIQUE: Imaging protocol: Radiologic exam of the chest. Views: 1 view. Total images: 1 COMPARISON: CR XR CHEST PORTABLE 08/10/2023 4:16 PM FINDINGS: Tubes, catheters and devices: Status post right subclavian central venous catheter with tip in the upper SVC. EKG leads are present. Lungs: Right basilar atelectasis versus infiltrate, increased from prior study. Lungs appear emphysematous. Calcified left basilar granuloma. No pulmonary vascular congestion. Pleural spaces: Small right pleural effusion. No pneumothorax. Heart/Mediastinum: Stable mild cardiomegaly. No mediastinal widening. Vasculature: Severely atherosclerotic aortic arch. Bones/joints: Osteopenia. Moderate degenerative changes left shoulder and right AC joint. Loss of right subacromial distance implying chronic rotator cuff tear. IMPRESSION: 1. Right subclavian central venous line tip in the upper SVC. No pneumothorax. 2. Increasing right basilar atelectasis versus infiltrate. 3. Small right pleural effusion. 4. Additional stable chronic findings.
[2023-08-12 21:38] LABS: Hematocrit 33.3 % (37.0-47.0)
[2023-08-12 21:41] LABS: Hemoglobin 10.6 g/dL (12.2-16.2)
[2023-08-13] VITALS (19 sets, daily range): BP systolic 99–161; BP diastolic 36–83; PULSE 76–91; RESP 13–22; TEMP 36.4–37.1; O2SAT 95–100; BMI 30.8
[2023-08-13] MEDS: AZITHROMYCIN 500 MG in 0.9 % SODIUM CHLORIDE 250 ML 250 MG IV ×2 (00:54→20:20)
[2023-08-13] MEDS: SODIUM CHLORIDE 0.45 % 1,000 ML 100 ML IV (00:55)
[2023-08-13] MEDS: IPRATROPIUM/ALBUTEROL 3 ML NEB IH ×3 (05:40→18:42)
[2023-08-13] MEDS: LEVOTHYROXINE 75MCG (0.075MG) TAB 75 MCG PO (06:06)
--- NOTE | 2023-08-13 07:44 | EXP.PHA.PN ---
Subjective *Date: 08/13/23 *Time: 07:44 Medical Exam Vital signs and Labs for Last 24 Hours: Vital Signs Temp Pulse Pulse Resp BP BP Pulse Ox 08/13/23 06:00 84 19 141/66 H 100 08/13/23 05:40 81 08/13/23 05:40 80 08/13/23 05:40 96 08/13/23 05:00 84 18 142/72 H 97 08/13/23 04:00 98.1 F 08/13/23 04:00 96 08/13/23 04:00 82 08/13/23 04:00 84 124/83 96 08/13/23 03:00 82 13 144/74 H 95 08/13/23 01:00 91 H 18 99/36 L 96 08/13/23 00:53 80 08/13/23 00:53 78 08/13/23 00:00 98.4 F 08/13/23 00:00 85 08/13/23 00:00 95 08/13/23 00:00 85 108/52 L 96 08/12/23 23:00 81 96/50 L 98 08/12/23 22:00 96 H 121/58 L 94 L 08/12/23 21:00 102 H 16 124/43 L 94 L 08/12/23 20:00 98.6 F 08/12/23 20:00 84 08/12/23 20:00 15 96 08/12/23 20:00 97 H 15 93/44 L 96 08/12/23 19:09 84 08/12/23 19:09 81 08/12/23 19:09 97 08/12/23 19:00 90 18 122/59 L 96 08/12/23 19:00 08/12/23 18:05 98.2 F 78 18 102/47 L 96 08/12/23 17:05 98.6 F 82 18 129/63 95 08/12/23 17:00 82 20 127/59 L 94 L 08/12/23 17:00 08/12/23 16:25 98.3 F 82 16 117/50 L 95 08/12/23 16:00 80 08/12/23 16:00 98.5 F 08/12/23 16:00 08/12/23 15:59 96 08/12/23 15:25 98.3 F 79 16 122/60 96 08/12/23 15:10 98.3 F 79 16 109/46 L 96 08/12/23 14:56 08/12/23 14:55 98.2 F 77 16 101/46 L 96 08/12/23 14:40 98.2 F 79 16 99/45 L 96 08/12/23 14:35 98.2 F 78 16 101/43 L 96 08/12/23 14:30 98.3 F 79 16 97/52 L 97 08/12/23 14:25 98.3 F 79 16 102/50 L 95 08/12/23 14:18 98.4 F 77 16 99/44 L 95 08/12/23 13:49 98.4 F 79 16 104/36 L 97 08/12/23 13:05 98.4 F 80 18 107/46 L 97 08/12/23 13:00 08/12/23 12:05 98.3 F 82 18 103/43 L 96 08/12/23 12:00 80 08/12/23 11:53 08/12/23 11:50 98.3 F 84 16 115/45 L 97 08/12/23 11:35 98.3 F 81 17 112/45 L 97 08/12/23 11:20 98.3 F 79 16 108/48 L 97 08/12/23 11:15 98.3 F 81 19 108/45 L 96 08/12/23 11:10 98.1 F 80 18 119/52 L 97 08/12/23 11:05 98.1 F 81 21 127/54 L 96 08/12/23 11:00 08/12/23 11:00 98.3 F 83 16 114/60 96 08/12/23 10:21 77 08/12/23 10:21 78 08/12/23 10:00 98.2 F 79 16 100/35 L 97 08/12/23 09:00 76 18 113/41 L 98 08/12/23 09:00 08/12/23 08:51 98 08/12/23 08:00 70 08/12/23 07:50 O2 Del Method FiO2 08/13/23 06:00 Room Air 08/13/23 05:40 08/13/23 05:40 08/13/23 05:40 Room Air 08/13/23 05:00 Room Air 05/23/24 04:00 08/13/23 04:00 Room Air 08/13/23 04:00 08/13/23 04:00 BiPAP 35 08/13/23 03:00 Room Air 08/13/23 01:00 08/13/23 00:53 08/13/23 00:53 08/13/23 00:00 08/13/23 00:00 08/13/23 00:00 Room Air 08/13/23 00:00 Room Air 08/12/23 23:00 Room Air 08/12/23 22:00 Room Air 08/12/23 21:00 Room Air 08/12/23 20:00 08/12/23 20:00 08/12/23 20:00 Room Air 08/12/23 20:00 Room Air 08/12/23 19:09 08/12/23 19:09 08/12/23 19:09 Room Air 08/12/23 19:00 Room Air 08/12/23 19:00 Room Air 08/12/23 18:05 08/12/23 17:05 08/12/23 17:00 Room Air 08/12/23 17:00 Room Air 08/12/23 16:25 08/12/23 16:00 08/12/23 16:00 08/12/23 16:00 Room Air 08/12/23 15:59 Room Air 08/12/23 15:25 08/12/23 15:10 08/12/23 14:56 Room Air 08/12/23 14:55 08/12/23 14:40 08/12/23 14:35 08/12/23 14:30 08/12/23 14:25 08/12/23 14:18 08/12/23 13:49 08/12/23 13:05 08/12/23 13:00 Room Air 08/12/23 12:05 08/12/23 12:00 08/12/23 11:53 Room Air 08/12/23 11:50 08/12/23 11:35 08/12/23 11:20 08/12/23 11:15 08/12/23 11:10 08/12/23 11:05 08/12/23 11:00 Room Air 08/12/23 11:00 08/12/23 10:21 08/12/23 10:21 08/12/23 10:00 Room Air 08/12/23 09:00 Room Air 08/12/23 09:00 Room Air 08/12/23 08:51 Room Air 08/12/23 08:00 08/12/23 07:50 Room Air Intake and Output 08/12/23 08/12/23 08/13/23 15:59 23:59 07:59 Intake Total 1456.773 / 4293.661 1061.509 / 4293.661 0 / 0 Output Total 1415 / 4140 725 / 4140 680 / 680 Balance 41.773 / 153.661 336.509 / 153.661 -680 / -680 Intake: Intake, Oral Amount 750 / 1250 500 / 1250 Intake, Other Amount 100 / 150 50 / 150 Red Blood Cells Unit 50 / 50 [id number] Red Blood Cells Unit 100 / 100 [id number] Intake, Total IV Amount 356.773 / 2393.661 261.509 / 2393.661 0 / 0 Sodium Chloride 0.45 % 1,000 ml 1984 250 / 1985 @ 100 mls/hr IV .Q10H [facility] Rx#: [id number] Intake (Blood Product) Amt 250 / 500 250 / 500 Red Blood Cells Unit 0 / 250 250 / 250 [id number] Red Blood Cells Unit 250 / 250 [id number] Output: Output, Urine Amount 0 / 1900 0 / 1900 Output, Urine Amount (Catheter) 1415 / 2240 725 / 2240 680 / 680 Saeed 1415 / 2240 725 / 2240 680 / 680 Other: Number of Unmeasured Voids 0 0 Weight 74.021 kg Patient Weight 08/13/23 23:59 Weight 74.021 kg Laboratory Results - last 24 hr 08/12/23 05:50: Total Counted 100, Neutrophils % (Manual) 95 H, Lymphocytes % (Manual) 4 L, Monocytes % (Manual) 1 L, Platelet Estimate Slight increase, RBC Morphology Normal, Blood Type O Positive, Antibody Screen Negative, Crossmatch (AHG) See Detail 08/12/23 07:48: Blood Type Confirm O Positive 08/12/23 08:22: TSH 0.25 L 08/12/23 11:50: POC Glucose 210 H 08/12/23 16:17: POC Glucose 207 H 08/12/23 21:24: Hgb 10.6 L D, Hct 33.3 L I & O for Labs for Last 24 Hours: Intake & Output 08/10/23 08/11/23 08/12/23 08/13/23 23:59 23:59 23:59 23:59 Intake Total 1709.152 / 7439.585 3883.001 / 4516.001 4293.661 / 4293.661 0 / 0 Output Total 960 / 960 3550 / 3550 4040 / 4140 680 / 680 Balance 749.152 / 749.152 966.001 / 966.001 253.661 / 153.661 -680 / -680 Weight 71.622 kg 66 kg 67 kg 74.021 kg The patient's infection will respond to the chosen ABx?: Yes Is the patient receiving the right drug, dose, and route?: Yes Could a more targeted ABx be ordered?: No (BLOOD CX PENDING)
--- NOTE | 2023-08-13 08:10 | P.PN_ITS ---
Subjective *Date: 08/13/23 *Time: 08:17 Interval history: Not feeling as well today. Says she feels like a stuffed cabbage. She is SOA and her cough is worse. She does not feel like eating much this am. She was able to sleep. She has been wheezing. Medical Exam Vital signs and Labs for Last 24 Hours: Vital Signs Temp Pulse Pulse Resp BP BP Pulse Ox 08/13/23 06:00 84 19 141/66 H 100 08/13/23 05:40 81 08/13/23 05:40 80 08/13/23 05:40 96 08/13/23 05:00 84 18 142/72 H 97 08/13/23 04:00 98.1 F 08/13/23 04:00 96 08/13/23 04:00 82 08/13/23 04:00 84 124/83 96 08/13/23 03:00 82 13 144/74 H 95 08/13/23 01:00 91 H 18 99/36 L 96 08/13/23 00:53 80 08/13/23 00:53 78 08/13/23 00:00 98.4 F 08/13/23 00:00 85 08/13/23 00:00 95 08/13/23 00:00 85 108/52 L 96 08/12/23 23:00 81 96/50 L 98 08/12/23 22:00 96 H 121/58 L 94 L 08/12/23 21:00 102 H 16 124/43 L 94 L 08/12/23 20:00 98.6 F 08/12/23 20:00 84 08/12/23 20:00 15 96 08/12/23 20:00 97 H 15 93/44 L 96 08/12/23 19:09 84 08/12/23 19:09 81 08/12/23 19:09 97 08/12/23 19:00 90 18 122/59 L 96 08/12/23 19:00 08/12/23 18:05 98.2 F 78 18 102/47 L 96 08/12/23 17:05 98.6 F 82 18 129/63 95 08/12/23 17:00 82 20 127/59 L 94 L 08/12/23 17:00 08/12/23 16:25 98.3 F 82 16 117/50 L 95 08/12/23 16:00 80 08/12/23 16:00 98.5 F 08/12/23 16:00 08/12/23 15:59 96 08/12/23 15:25 98.3 F 79 16 122/60 96 08/12/23 15:10 98.3 F 79 16 109/46 L 96 08/12/23 14:56 08/12/23 14:55 98.2 F 77 16 101/46 L 96 08/12/23 14:40 98.2 F 79 16 99/45 L 96 08/12/23 14:35 98.2 F 78 16 101/43 L 96 08/12/23 14:30 98.3 F 79 16 97/52 L 97 08/12/23 14:25 98.3 F 79 16 102/50 L 95 08/12/23 14:18 98.4 F 77 16 99/44 L 95 08/12/23 13:49 98.4 F 79 16 104/36 L 97 08/12/23 13:05 98.4 F 80 18 107/46 L 97 08/12/23 13:00 08/12/23 12:05 98.3 F 82 18 103/43 L 96 08/12/23 12:00 80 08/12/23 11:53 08/12/23 11:50 98.3 F 84 16 115/45 L 97 08/12/23 11:35 98.3 F 81 17 112/45 L 97 08/12/23 11:20 98.3 F 79 16 108/48 L 97 08/12/23 11:15 98.3 F 81 19 108/45 L 96 08/12/23 11:10 98.1 F 80 18 119/52 L 97 08/12/23 11:05 98.1 F 81 21 127/54 L 96 08/12/23 11:00 08/12/23 11:00 98.3 F 83 16 114/60 96 08/12/23 10:21 77 08/12/23 10:21 78 08/12/23 10:00 98.2 F 79 16 100/35 L 97 08/12/23 09:00 76 18 113/41 L 98 08/12/23 09:00 08/12/23 08:51 98 O2 Del Method FiO2 08/13/23 06:00 Room Air 08/13/23 05:40 08/13/23 05:40 08/13/23 05:40 Room Air 08/13/23 05:00 Room Air 08/13/23 04:00 08/13/23 04:00 Room Air 08/13/23 04:00 08/13/23 04:00 BiPAP 35 08/13/23 03:00 Room Air 08/13/23 01:00 08/13/23 00:53 08/13/23 00:53 08/13/23 00:00 08/13/23 00:00 08/13/23 00:00 Room Air 08/13/23 00:00 Room Air 08/12/23 23:00 Room Air 08/12/23 22:00 Room Air 08/12/23 21:00 Room Air 08/12/23 20:00 08/12/23 20:00 08/12/23 20:00 Room Air 08/12/23 20:00 Room Air 08/12/23 19:09 08/12/23 19:09 08/12/23 19:09 Room Air 08/12/23 19:00 Room Air 08/12/23 19:00 Room Air 08/12/23 18:05 08/12/23 17:05 08/12/23 17:00 Room Air 08/12/23 17:00 Room Air 08/12/23 16:25 08/12/23 16:00 08/12/23 16:00 08/12/23 16:00 Room Air 08/12/23 15:59 Room Air 08/12/23 15:25 08/12/23 15:10 08/12/23 14:56 Room Air 08/12/23 14:55 08/12/23 14:40 08/12/23 14:35 08/12/23 14:30 08/12/23 14:25 08/12/23 14:18 08/12/23 13:49 08/12/23 13:05 08/12/23 13:00 Room Air 08/12/23 12:05 08/12/23 12:00 08/12/23 11:53 Room Air 08/12/23 11:50 08/12/23 11:35 08/12/23 11:20 08/12/23 11:15 08/12/23 11:10 08/12/23 11:05 08/12/23 11:00 Room Air 08/12/23 11:00 08/12/23 10:21 08/12/23 10:21 08/12/23 10:00 Room Air 08/12/23 09:00 Room Air 08/12/23 09:00 Room Air 08/12/23 08:51 Room Air Intake and Output 08/12/23 08/13/23 08/13/23 19:59 03:59 11:59 Intake Total 1904.421 / 1904.421 0 / 1904.421 Output Total 850 / 1880 675 / 1880 355 / 1880 Balance 1054.421 / 24.421 -67 / 24.421 -355 / .421 Intake: Intake, Oral Amount 980 / 980 Intake, Other Amount 150 / 150 Red Blood Cells Unit 50 / 50 [id number] Red Blood Cells Unit 100 / 100 [id number] Intake, Total IV Amount 274.421 / 274.421 0 / 274.421 Sodium Chloride 0.45 % 1,000 ml 250 / 250 @ 100 mls/hr IV .Q10H [facility] Rx#: [id number] Intake (Blood Product) Amt 500 / 500 Red Blood Cells Unit 250 / 250 [id number] Red Blood Cells Unit 250 / 250 [id number] Output: Output, Urine Amount 0 / 0 Output, Urine Amount (Catheter) 850 / 1880 675 / 1880 355 / 1880 Saeed 850 / 1880 675 / 1880 355 / 1880 Other: Number of Unmeasured Voids 0 Weight 163 lb 3 oz Patient Weight 08/13/23 11:59 Weight 163 lb 3 oz Laboratory Results - last 24 hr 08/12/23 05:50: Total Counted 100, Neutrophils % (Manual) 95 H, Lymphocytes % (Manual) 4 L, Monocytes % (Manual) 1 L, Platelet Estimate Slight increase, RBC Morphology Normal, Blood Type O Positive, Antibody Screen Negative, Crossmatch (AHG) See Detail 08/12/23 07:48: Blood Type Confirm O Positive 08/12/23 08:22: TSH 0.25 L 08/12/23 11:50: POC Glucose 210 H 08/12/23 16:17: POC Glucose 207 H 08/12/23 21:24: Hgb 10.6 L D, Hct 33.3 L I & O for Labs for Last 24 Hours: Intake & Output 08/10/23 08/11/23 08/12/23 08/13/23 11:59 11:59 11:59 11:59 Intake Total 597.592 / 061.030 7703.600 / 3975.600 4368.241 / 4368.241 1904.421 / 1904.421 Output Total 460 / 460 2900 / 3100 3990 / 3990 1880 / 1880 Balance 137.592 / 137.592 793.600 / 875.600 378.241 / 378.241 24. / 24.421 Weight 157 lb 14.4 oz 145 lb 8.081 oz 147 lb 11.355 oz 163 lb 3 oz Constitutional: Present no acute distress Head: Present normocephalic Neck: Present normal inspection Respiratory: Present decreased breath sounds, rhonchi and wheezes Cardiac: Present Reg Rate and Rhythm GI: Present soft; Absent tenderness Extremities: Absent edema Comment:: Flotron unit in place. Skin: Present intact and ecchymosis Neuro: Present Resting Tremor, alert and awake Assessment and Plan *Assessment and plan (1) Pneumonia: Status: Acute Category: Medical Code(s): J18.9 - Pneumonia, unspecified organism (2) Acute on chronic renal failure: Status: Acute Qualifiers: Acute renal failure type: unspecified Chronic kidney disease stage: unspecified stage Qualified Code(s): N17.9 - Acute kidney failure, unspecified; N18.9 - Chronic kidney disease, unspecified Category: Medical Code(s): N17.9 - Acute kidney failure, unspecified; N18.9 - Chronic kidney disease, unspecified (3) Anemia: Status: Acute Qualifiers: Anemia type: unspecified type Qualified Code(s): D64.9 - Anemia, unspecified Category: Medical Code(s): D64.9 - Anemia, unspecified (4) Type 2 diabetes mellitus with diabetic neuropathy, without long-term current use of insulin: Status: Chronic Category: Medical Code(s): E11.40 - Type 2 diabetes mellitus with diabetic neuropathy, unspecified (5) Transaminitis: Status: Acute Category: Medical Code(s): R74.01 - Elevation of levels of liver transaminase levels (6) Elevated liver enzymes: Status: Acute Category: Medical Code(s): R74.8 - Abnormal levels of other serum enzymes (7) Constipation: Status: Acute Qualifiers: Constipation type: unspecified constipation type Qualified Code(s): K59.00 - Constipation, unspecified Category: Medical Code(s): K59.00 - Constipation, unspecified (8) Tremor: Problem Comment: Most likely essential tremor Status: Chronic Category: Medical Code(s): R25.1 - Tremor, unspecified (9) General weakness: Status: Chronic Category: Medical Code(s): R53.1 - Weakness (10) Debility: Status: Acute Category: Medical Code(s): R53.81 - Other malaise Plan Cardiology is going to order a one time dose of 40mg of lasix. Weights do no appear to be correct. Renal function was slightly better yesterday. May need repeat imaging of the chest if the lasix does not help. Will reorder senokot.
[2023-08-13] MEDS: CLOPIDOGREL 75MG TAB 75 MG PO (08:14)
[2023-08-13] MEDS: predniSONE 10MG TAB 10 MG PO (08:14)
[2023-08-13] MEDS: POTASSIUM CHLORIDE 20MEQ TAB 20 MEQ PO (08:14)
--- NOTE | 2023-08-13 08:18 | EXP.CARD.PN ---
Subjective Subjective Date: 08/13/23 Time: 08:18 Principal diagnosis: sepsis Interval history: 73 yo WF in bed Not feeling well Feels like she is full and is relating SOA I/O net positive at 1300 Hgb improved to 10.6 after transfusion LFT's improving Exam Data for Last 24 hours Vital signs and Labs for Last 24 Hours: Temp Pulse Resp BP Pulse Ox O2 Del Method O2 Flow Rate 98.1 F 84 19 141/66 H 100 Room Air 1 08/13/23 04:00 08/13/23 06:00 08/13/23 06:00 08/13/23 06:00 08/13/23 06:00 08/13/23 06:00 08/11/23 13:00 FiO2 35 08/13/23 04:00 Laboratory Results - last 24 hr 08/12/23 05:50: Total Counted 100, Neutrophils % (Manual) 95 H, Lymphocytes % (Manual) 4 L, Monocytes % (Manual) 1 L, Platelet Estimate Slight increase, RBC Morphology Normal, Blood Type O Positive, Antibody Screen Negative, Crossmatch (AHG) See Detail 08/12/23 07:48: Blood Type Confirm O Positive 08/12/23 08:22: TSH 0.25 L 08/12/23 11:50: POC Glucose 210 H 08/12/23 16:17: POC Glucose 207 H 08/12/23 21:24: Hgb 10.6 L D, Hct 33.3 L I & O for Last 24 hours: Intake & Output 08/10/23 08/11/23 08/12/23 08/13/23 11:59 11:59 11:59 11:59 Intake Total 597.592 / 092.849 7447.600 / 3975.600 4368.241 / 4368.241 1904.421 / 1904.421 Output Total 460 / 460 2900 / 3100 3990 / 3990 1880 / 1880 Balance 137.592 / 137.592 793.600 / 875.600 378.241 / 378.241 / .421 Weight 157 lb 14.4 oz 145 lb 8.081 oz 147 lb 11.355 oz 163 lb 3 oz Constitutional Constitutional: mild distress *Routine Respiratory Exam Respiratory: Present rhonchi, wheezes and crackles *Routine Cardiovascular Exam Cardiovascular: Present RRR and murmur *Routine Extremities Exam Extremities: Absent edema *Routine Neurological Exam Neurological: Present alert, oriented X3 and CN II-XII intact Progress Note: A&P Assessment and plan (1) Pneumonia: Status: Acute (2) Acute on chronic renal failure: Status: Acute (3) Anemia: Status: Acute (4) Type 2 diabetes mellitus with diabetic neuropathy, without long-term current use of insulin: Status: Chronic (5) Transaminitis: Status: Acute (6) Elevated liver enzymes: Status: Acute (7) Constipation: Status: Acute (8) Tremor: Problem details: Most likely essential tremor Status: Chronic (9) General weakness: Status: Chronic (10) Debility: Status: Acute Assessment and Plan Assessment and Plan for All Diagnoses:: 1. Septic Shock/Altered mental status with lethargy -off levophed this AM -Multifactorial -CT of the chest shows multifocal consolidative opacities with concern for infection. -on vancomycin and azithromycin 2. Acute on chronic CKD with Cr 3.5 now down to 2.3 -baseline Cr 1.5-2.0 3. elevated LFT's, improving -likely reactionary to infection -Abdominal CT negative for acute pathology with normal liver -possibly related to amiodarone but similar scenario in 03/2023 with admission for UTI that resolved without stopping amiodarone 4. PAF currently holding in NSR -amiodarone stopped this admission due to elevated LFT's -holding bisoprolol and diltiazem for rate control due to hypotension 5. Hyponatremia -improved to 132 6. Chronic anemia with baseline of 9-10 -Hemoglobin this admission 8.5 down to 7.4, now up to 11.0 -transfused 2 units yesterday 7. CAD with prior stenting -troponins normal this admission -on plavix 8. Emphysema/asthma -follows with Pulmonary 9. Hypothyroidism -on replacement with TSH this admit 0.25 (possibly due to acute illness, amiodarone and levothyroxine) 10. Mod-Severe MR on echo -stop IVF -one dose of lasix today -Plan for outpatient TOBY when respiratory status improves stop IVF One dose of lasix morning labs show continued improvement consider repeating CXR or CT of chest to assess infiltrates if symptoms not improved after lasix consider use of pulse dose steroids in setting of acute illness if recurrent hypotension.
[2023-08-13] MEDS: FUROSEMIDE 40MG/4ML VIAL 40 MG IV (08:24)
[2023-08-13 08:48] LABS: Basophils % 0.4 % (0.1-2.0); Eosinophils # 0.2 K/mm3 (0.0-0.4); Eosinophils % 1.7 % (0.1-12.0); Hematocrit 34.5 % (37.0-47.0); Lymphocytes # 1.1 K/mm3 (0.7-4.5); Lymphocytes % 11.4 % (10-50); Mean Corpuscular HGB Conc 31.9 g/dL (31.8-35.4); Mean Corpuscular Hemoglobin 29.2 pg (27.0-31.2); Mean Corpuscular Volume 91.4 fl (81-99); Mean Platelet Volume 7.7 fl (7.4-10.4); Monocytes # 0.6 K/mm3 (0.1-1.0); Monocytes % 6.2 % (1.7-9.3); Neutrophils # 7.6 K/mm3 (1.8-7.8); Neutrophils % 80.3 % (37.0-80.0); Platelet Count 372 K/mm3 (142-424); Red Blood Count 3.78 M/mm3 (4.20-5.40); Red Cell Distribution Width 16.6 % (11.5-17.5); White Blood Count 9.4 K/mm3 (4.8-10.8)
[2023-08-13 09:02] LABS: Alanine Aminotransferase 215 U/L (12-78); Albumin Level 2.8 g/dl (3.5-5.0); Albumin/Globulin Ratio 0.9 (1.1-1.8); Alkaline Phosphatase 111 U/L (38-126); Aspartate Amino Transferase 119 U/L (14-36); Bilirubin,Total 0.3 mg/dl (0.2-1.3); Blood Urea Nitrogen 35 mg/dl (7-17); Calcium 8.9 mg/dl (8.4-10.2); Carbon Dioxide 19 mmol/L (22.0-30.0); Chloride 106 mmol/L (98-107); Creatinine Clearance Estimated 25 mL/min (50-200); Estimated Glomerular Filt Rate 21 ml/min (>60); GFR (African American) 25 ML/MIN (>60); Globulin 3.2 g/dL (1.3-3.2); Glucose 157 mg/dl (74-100); Sodium 135 mmol/L (136-145)
[2023-08-13] MEDS: FERROUS SULFATE 325MG TABLET 325 MG PO ×2 (09:49→20:21)
--- NOTE | 2023-08-13 10:09 | HMH.PTEV ---
Physical Therapy Evaluation Rehab PT IP Evaluation Start: 08/12/23 13:59 Freq: ONCE Status: Active Protocol: Document 08/13/23 10:06 GABY (Rec: 08/13/23 10:09 GABY [email or web address]) Subjective/History History History Per H&P: Patient presents via EMS initially with a chief complaint of lethargy. Patient's daughter noted that she was less responsive to her today seemed very weak so called EMS. EMS reports patient's oxygen saturation at the scene was in the 70s. On arrival to the emergency department patient is responsive and oriented to person place and circumstance but she is hypotensive with a pressure in the 70s but a heart rate of 58. Patient is also on multiple rate controlling medications including bisoprolol and diltiazem. Patient denies chest pain fever chills hemoptysis hematochezia melena nausea vomiting diarrhea but does report just feeling weak . Subjective Subjective PLOF per pt report: Lives alone in apartment at [facility]. Usually IND with mobility and ADLs with use of w/c and RW. Has a daughter that lives nearby. New diagnosis of cancer in past 12 No months? Rehab PT IP Eval Objective Appearance Patient Behavior Appropriate,Cooperative Patient Orientation Person,Birthday Difficulty following instructions none Speech Pattern Clear Balance Ability to Arise Able, uses arms to help Sitting Balance Steady, safe Standing Balance Unsteady Transfers Bed Transfer Ability Minimal x 1 (25% assist) Sit to Stand Bed Transfer Ability Minimal x 2 (25% assist) Rehab PT IP prob,goals,plan Problems Date of Evaluation: 08/13/23 PT IP Problems Bed Mobility,Transfers,Gait, Balance,Self care,Safety Rehab Potential Rehab Potential Good Equipment Needs Assistive Devices Rolling / Wheeled Walker Plan PT Intervention Plan Bed Mobility,Transfers,Gait, Balance,Safety,Therapeutic Exercise Other Intervention Plan 1-2 times PT Plan Frequency Daily Duration LOS Discharge Goals Bed Transfer Ability Supervision/Stand by Sit to Stand Chair Transfer Ability Minimal x 1 (25% assist) Ambulation Assistive Device Rolling Walker Ambulation Distance (feet) 10 Discharge Plan PT Discharge Plan Initial physical therapy evaluation performed. Patient presents below baseline at this time in functional mobility, transfers, and strength. Pt not safe to return home at this time d/t current level of functional mobility. PT recommending short-term rehabilitation stay upon d/c from [facility]. Pt would benefit from skilled PT while at [facility] to prevent further functional decline and maximize safety with mobility. Eval Complexity Eval Charge Codes 70735 - Moderate Complexity PHYSICIAN CERTIFICATION: I certify the specified therapy services for Trinity Shahla Silvestre are required, authorized, and reviewed every 30 days.
--- NOTE | 2023-08-13 11:27 | HMH.OTEV ---
OT Inpatient Evaluation Rehab OT IP Evaluation Start: 08/12/23 13:58 Freq: ONCE Status: Active Protocol: Document 08/13/23 11:05 ALBATAN (Rec: 08/13/23 11:19 ADAN [id number]) Rehab OT IP Assessment Subjective History Pt is a 73 year old female that was admitted to this facility on 08/10/23 after being seen in ED. Patient presented via EMS initially with a chief complaint of lethargy. Patient's daughter noted that she was less responsive to her today seemed very weak so called EMS. EMS reports patient's oxygen saturation at the scene was in the 70s. On arrival to the emergency department patient is responsive and oriented to person place and circumstance but she is hypotensive with a pressure in the 70s but a heart rate of 58. Patient is also on multiple rate controlling medications including bisoprolol and diltiazem. Patient denies chest pain fever chills hemoptysis hematochezia melena nausea vomiting diarrhea but does report just feeling weak . PLOF: Prior to being admitted, pt stated they were independent in ADLs and IADLs, but did have a helper come and assist at times. Pt lives in a community complex for elderly on the first floor with no steps to enter home or within the home itself. Pt states they live alone, but within 5 minutes from daughter . Pt stated they mainly used a wheelchair, but did use a walker a little bit when completing functional mobility tasks. Subjective I feel sick. Pt was asleep supine in bed when therapy entered room this morning. Pt was agreeable to participate in initial OT evaluation this morning. Pt was oriented x3. Pt agreed to sit on EOB and attempt to stand. Pt went from supine to EOB with Mod Assist x2. Pt was able to hold static sitting balacne with SBA for ~2 minutes while therapy went to get a new sheet for bed due to blood on sheet. Therapy had to assist in putting on shoes with Max Assist. Pt then completed a sit to stand transfer with Max Assist x2 with walker. Pt was able to hold static standing balance with Max Assist x2 with walker for ~1 minute while therapy adjusted bed and laid down new sheet and socorro. While standing, pt stated they were in pain on whole right lower body. Pt then sat abck on EOB with Max Assist x2. Pt then went from EOB to supine with Max Assist x2. Pt was left in bed with call button and all other needs within reach. Objective Patient Orientation Person,Place,Birthday Right Upper Extremity Gross ROM WFL Left Upper Extremity Gross ROM WFL Bed Mobility bed mobility - supine/sit,bed mobility - rolling Assist Level Maximum x 2 (75% assist) Transfer Training Sit/Stand Transfer Assist Level Maximum x 2 (75% assist) Lower Body Dressing Ability Unable/dependent Rehab OT IP prob,goals,plan Problems Date of Evaluation: 08/13/23 OT IP Problems Bed Mobility,Transfers,Balance ,Self care,Safety Rehab Potential Rehab Potential Good Equipment Needs Assistive Devices Standard Walker,Rolling / Wheeled Walker Plan OT intervention Plan Bed Mobility,Transfers,Balance ,Self care,Safety,Therapeutic Exercise OT Plan Frequency Daily Duration LOS Discharge Goals Bed Mobility Ability Assistance x1 Lower Body Dressing Ability Moderate Assistance Decrease in Endurance Yes Discharge Plan OT Discharge Plan It is recommended at this time that pt goes to placement for rehab services to regain strength, endurance, and for self-care pending medical status and doctors orders. Pt will continue to be seen LOS while at this facility for skilled OT services. Eval Complexity Eval Charge Codes 25960 - Moderate Complexity PHYSICIAN CERTIFICATION: I certify the specified therapy services for Trinity Silvestre are required, authorized, and reviewed every 30 days.
--- NOTE | 2023-08-13 11:37 | SW/DCPLANNER ---
Addendum entered by [facility] 08/14/23 14:38: Per Jamari w/ [facility] precert is still pending at this time. Jamari stated that he would contact Sanitation Officer once he receives approval. Addendum entered by [facility] 08/14/23 09:11: Ade w/ [facility] stated an auth would be started today for this patient. Addendum entered by [facility] 08/13/23 14:45: Ade w/ [facility] stated that she now has a female bed available. Patient prefers information faxed to [facility]. I will follow up w/ Ade once information is reviewed. Addendum entered by [facility] 08/13/23 14:05: Betsy w/ [facility] is not able to accept this patient due to not having a female bed available. Patient/family request to speak w/ other family members regarding other facilities. I will continue to follow up w/ patient and family members. Original Note: I spoke w/ patient and her family regarding plans once medically stable for discharge. PT/OT evaluated patient and recommended SNF level of care. Patient stated that she went to [facility] in the past and would prefer to return to this facility. Betsy w/ [facility] stated that she does have a female bed available. Patient information has been faxed to Betsy and I will follow up once information is reviewed. Discharge date is unknown at this time.
[2023-08-13 16:23] LABS: POC Glucose,Bedside 177 (70-110)
[2023-08-13 16:23] LABS: POC Glucose,Bedside 149 (70-110)
[2023-08-13] MEDS: SENNA 8.6MG TABLET 8.6 MG PO (20:21)
[2023-08-13 20:42] LABS: POC Glucose,Bedside 206 (70-110)
[2023-08-14] VITALS (13 sets, daily range): BP systolic 132–167; BP diastolic 64–85; PULSE 67–85; RESP 17–21; TEMP 36.3–36.8; O2SAT 94–98; BMI 30.4
[2023-08-14] MEDS: IPRATROPIUM/ALBUTEROL 3 ML NEB IH ×4 (00:22→18:42)
[2023-08-14 05:09] LABS: POC Glucose,Bedside 118 (70-110)
--- NOTE | 2023-08-14 05:16 | PC.NURSE ---
Pt is alert and oriented x4 and currently tolerating RA well. Pt continues to be a Q2 turn. Pt remains on telemetry and continues to have a NSR. Pt denies pain, Pt glucose level is 118 this am and dose not require coverage. No acute changes this shift.
[2023-08-14] MEDS: LEVOTHYROXINE 75MCG (0.075MG) TAB 75 MCG PO (06:02)
--- NOTE | 2023-08-14 07:58 | EXP.ACUTE.PN ---
Subjective *Date: 08/14/23 *Time: 08:35 Interval history: Patient states she feels a little better today. Her SOA has improved slightly. She is tired this am and has not had breakfast yet. Medical Exam Vital signs and Labs for Last 24 Hours: Vital Signs Temp Pulse Pulse Resp BP Pulse Ox O2 Del Method 08/14/23 07:40 97.4 F L 75 20 132/68 95 Room Air 08/14/23 06:45 Room Air 08/14/23 06:43 75 08/14/23 06:43 72 08/14/23 06:43 94 L Room Air 08/14/23 05:00 Room Air 08/14/23 04:00 97.8 F 76 18 150/68 H 98 Room Air 08/14/23 04:00 80 08/14/23 03:00 Room Air 08/14/23 01:00 Room Air 08/14/23 01:00 76 08/14/23 01:00 78 08/14/23 00:00 Room Air 08/14/23 00:00 98.2 F 85 18 167/72 H 95 Room Air 08/14/23 00:00 80 08/13/23 23:00 Room Air 08/13/23 21:00 Room Air 08/13/23 20:00 Room Air 08/13/23 20:00 80 08/13/23 20:00 97.6 F 85 15 134/71 97 Room Air 08/13/23 19:09 80 08/13/23 19:09 76 08/13/23 18:39 Room Air 08/13/23 17:00 Room Air 08/13/23 16:00 90 08/13/23 16:00 98.2 F 80 21 135/47 L 96 Room Air 08/13/23 15:00 Room Air 08/13/23 15:00 79 22 138/49 L 98 Room Air 08/13/23 14:00 81 22 132/47 L 97 Room Air 08/13/23 13:00 Room Air 08/13/23 13:00 89 20 140/71 95 Room Air 08/13/23 12:00 90 08/13/23 12:00 86 22 128/49 L 96 Room Air 08/13/23 12:00 Room Air 08/13/23 12:00 98.8 F 05/23/24 11:15 82 08/13/23 11:15 84 08/13/23 11:15 96 Room Air 08/13/23 11:00 Room Air 08/13/23 10:00 80 20 161/69 H 97 Room Air 08/13/23 09:00 82 20 131/62 97 Room Air 08/13/23 09:00 Room Air 08/13/23 08:00 80 08/13/23 08:00 83 20 120/61 95 Room Air 08/13/23 08:00 Room Air 08/13/23 08:00 97.8 F Intake and Output 08/13/23 08/14/23 08/14/23 19:59 03:59 11:59 Intake Total 330 / 570 240 / 570 Output Total 1675 / 2475 800 / 2475 Balance -1345 / -1905 240 / -1905 -800 / -1905 Intake: Intake, Oral Amount 330 / 570 240 / 570 Output: Output, Urine Amount 0 / 800 800 / 800 Output, Urine Amount (Catheter) 1675 / 1675 Saeed 1675 / 1675 Other: Number of Voids 0 Number of Unmeasured Voids 0 Weight 161 lb 5 oz Patient Weight 08/14/23 11:59 Weight 161 lb 5 oz Laboratory Results - last 24 hr 08/13/23 08:30: WBC 9.4, RBC 3.78 L D, Hgb 11.0 L, Hct 34.5 L, MCV 91.4, MCH 29.2, MCHC 31.9, RDW 16.6, Plt Count 372, MPV 7.7, Neut % (Auto) 80.3 H, Lymph % (Auto) 11.4, [place] % (Auto) 6.2, Eos % (Auto) 1.7, Baso % (Auto) 0.4, Neut # (Auto) 7.6, Lymph # (Auto) 1.1, [place] # (Auto) 0.6, Eos # (Auto) 0.2, Baso # (Auto) 0.0, Sodium 135 L, Potassium 5.0, Chloride 106, Carbon Dioxide 19 L, Anion Gap 15.0, BUN 35 H, Creatinine 2.30 H, Estimated Creat Clear 25, Estimated GFR 21 L, Est GFR ( Amer) 25 L, Glucose 157 H, Calcium 8.9, Total Bilirubin 0.3, AST 119 H D, ALT 215 H, Alkaline Phosphatase 111, Total Protein 6.0 L, Albumin 2.8 L D, Globulin 3.2, Albumin/Globulin Ratio 0.9 L 08/13/23 10:59: POC Glucose 149 H 08/13/23 16:12: POC Glucose 177 H 08/13/23 20:30: POC Glucose 206 H 08/14/23 05:02: POC Glucose 118 H I & O for Labs for Last 24 Hours: Intake & Output 08/11/23 08/12/23 08/13/23 08/14/23 11:59 11:59 11:59 11:59 Intake Total 3693.600 / 3975.600 4368.241 / 4368.241 1904.421 / 1904.421 570 / 570 Output Total 2900 / 3100 3990 / 3990 3280 / 3655 2475 / 2475 Balance 793.600 / 875.600 378.241 / 378.241 -1375.579 / -1750.579 -1905 / -1905 Weight 145 lb 8.081 oz 147 lb 11.355 oz 163 lb 3 oz 161 lb 5 oz Constitutional: Present no acute distress Head: Present normocephalic Neck: Present normal inspection Respiratory: Present decreased breath sounds, rhonchi (less) and wheezes (less) Cardiac: Present Reg Rate and Rhythm GI: Present soft; Absent tenderness Extremities: Absent edema Comment:: Flotron unit in place. Skin: Present intact and ecchymosis Neuro: Present Resting Tremor, alert and awake Assessment and Plan *Assessment and plan (1) Pneumonia: Status: Acute Category: Medical Code(s): J18.9 - Pneumonia, unspecified organism (2) Acute on chronic renal failure: Status: Acute Qualifiers: Acute renal failure type: unspecified Chronic kidney disease stage: unspecified stage Qualified Code(s): N17.9 - Acute kidney failure, unspecified; N18.9 - Chronic kidney disease, unspecified Category: Medical Code(s): N17.9 - Acute kidney failure, unspecified; N18.9 - Chronic kidney disease, unspecified (3) Anemia: Status: Acute Qualifiers: Anemia type: unspecified type Qualified Code(s): D64.9 - Anemia, unspecified Category: Medical Code(s): D64.9 - Anemia, unspecified (4) Type 2 diabetes mellitus with diabetic neuropathy, without long-term current use of insulin: Status: Chronic Category: Medical Code(s): E11.40 - Type 2 diabetes mellitus with diabetic neuropathy, unspecified (5) Transaminitis: Status: Acute Category: Medical Code(s): R74.01 - Elevation of levels of liver transaminase levels (6) Elevated liver enzymes: Status: Acute Category: Medical Code(s): R74.8 - Abnormal levels of other serum enzymes (7) Constipation: Status: Acute Qualifiers: Constipation type: unspecified constipation type Qualified Code(s): K59.00 - Constipation, unspecified Category: Medical Code(s): K59.00 - Constipation, unspecified (8) Tremor: Problem Comment: Most likely essential tremor Status: Chronic Category: Medical Code(s): R25.1 - Tremor, unspecified (9) General weakness: Status: Chronic Category: Medical Code(s): R53.1 - Weakness (10) Debility: Status: Acute Category: Medical Code(s): R53.81 - Other malaise Plan H&H, renal function, and liver functions are all improving. Lungs sound slightly better today. She is off of her oxygen. BP has improved. Will discuss further care with Dr. Moore. Blood cultures are still pending and urine culture shows yeast.
[2023-08-14 08:44] LABS: Alanine Aminotransferase 193 U/L (12-78); Albumin Level 2.6 g/dl (3.5-5.0); Albumin/Globulin Ratio 0.8 (1.1-1.8); Alkaline Phosphatase 90 U/L (38-126); Aspartate Amino Transferase 130 U/L (14-36); Bilirubin,Total 0.5 mg/dl (0.2-1.3); Blood Urea Nitrogen 38 mg/dl (7-17); Calcium 8.8 mg/dl (8.4-10.2); Carbon Dioxide 23 mmol/L (22.0-30.0); Chloride 106 mmol/L (98-107); Creatinine Clearance Estimated 29 mL/min (50-200); Estimated Glomerular Filt Rate 24 ml/min (>60); GFR (African American) 30 ML/MIN (>60); Globulin 3.1 g/dL (1.3-3.2); Glucose 104 mg/dl (74-100); Sodium 135 mmol/L (136-145); Total Protein,Serum 5.7 g/dl (6.3-8.2)
[2023-08-14] MEDS: FERROUS SULFATE 325MG TABLET 325 MG PO ×2 (08:45→20:27)
[2023-08-14] MEDS: CLOPIDOGREL 75MG TAB 75 MG PO (08:45)
[2023-08-14] MEDS: BISOPROLOL 5MG TABLET 5 MG PO (08:45)
[2023-08-14] MEDS: POTASSIUM CHLORIDE 20MEQ TAB 20 MEQ PO (08:45)
[2023-08-14] MEDS: predniSONE 10MG TAB 10 MG PO (08:45)
--- NOTE | 2023-08-14 09:25 | EXP.CARD.PN ---
Subjective Subjective Date: 08/14/23 Time: 09:25 Principal diagnosis: sepsis Interval history: 73-year-old white female in bed in no acute distress. States she feels much better than yesterday. Breathing has improved significantly. Telemetry shows sinus rhythm in the 70s beat per minute range. Creatinine down to 2.0 this morning LFTs stable Exam Data for Last 24 hours Vital signs and Labs for Last 24 Hours: Temp Pulse Resp BP Pulse Ox O2 Del Method O2 Flow Rate 97.4 F L 70 20 132/68 95 Room Air 1 08/14/23 07:40 08/14/23 08:00 08/14/23 07:40 08/14/23 07:40 08/14/23 07:40 08/14/23 09:00 08/11/23 13:00 FiO2 35 08/13/23 04:00 Laboratory Results - last 24 hr 08/13/23 10:59: POC Glucose 149 H 08/13/23 16:12: POC Glucose 177 H 08/13/23 20:30: POC Glucose 206 H 08/14/23 05:02: POC Glucose 118 H 08/14/23 08:10: Sodium 135 L, Potassium 4.0, Chloride 106, Carbon Dioxide 23, Anion Gap 10.0, BUN 38 H, Creatinine 2.00 H, Estimated Creat Clear 29, Estimated GFR 24 L, Est GFR ( Amer) 30 L, Glucose 104 H D, Calcium 8.8, Total Bilirubin 0.5, AST 130 H, ALT 193 H, Alkaline Phosphatase 90, Total Protein 5.7 L, Albumin 2.6 L, Globulin 3.1, Albumin/Globulin Ratio 0.8 L I & O for Last 24 hours: Intake & Output 08/11/23 08/12/23 08/13/23 08/14/23 11:59 11:59 11:59 11:59 Intake Total 3693.600 / 3975.600 4368.241 / 4368.241 1904.421 / 1904.421 570 / 570 Output Total 2900 / 3100 3990 / 3990 3280 / 3655 2475 / 2475 Balance 793.600 / 875.600 378.241 / 378.241 -1375.579 / -1750.579 -1905 / -1905 Weight 145 lb 8.081 oz 147 lb 11.355 oz 163 lb 3 oz 161 lb 5 oz Constitutional Constitutional: no acute distress *Routine Respiratory Exam Respiratory: Present CTA bilaterally *Routine Cardiovascular Exam Cardiovascular: Present RRR Progress Note: A&P Assessment and plan (1) Pneumonia: Status: Acute (2) Acute on chronic renal failure: Status: Acute (3) Anemia: Status: Acute (4) Type 2 diabetes mellitus with diabetic neuropathy, without long-term current use of insulin: Status: Chronic (5) Transaminitis: Status: Acute (6) Elevated liver enzymes: Status: Acute (7) Constipation: Status: Acute (8) Tremor: Problem details: Most likely essential tremor Status: Chronic (9) General weakness: Status: Chronic (10) Debility: Status: Acute Assessment and Plan Assessment and Plan for All Diagnoses:: 1. Septic Shock/Altered mental status with lethargy, resolved -Multifactorial -CT of the chest shows multifocal consolidative opacities with concern for infection. -Azithromycin and vancomycin discontinued 2. Acute on chronic CKD with Cr 3.5 now down to 2.0 -baseline Cr 1.5-2.0 3. elevated LFT's, improving -likely reactionary to infection -Abdominal CT negative for acute pathology with normal liver -possibly related to amiodarone but similar scenario in 03/2023 with admission for UTI that resolved without stopping amiodarone 4. PAF currently holding in NSR -amiodarone stopped this admission due to elevated LFT's -Bisoprolol resumed today at low-dose to help maintain sinus rhythm 5. Hyponatremia -improved to 135 6. Chronic anemia with baseline of 9-10 -Hemoglobin this admission 8.5 down to 7.4, now up to 11.0 -transfused 2 units 7. CAD with prior stenting -troponins normal this admission -on plavix 8. Emphysema/asthma -follows with Pulmonary 9. Hypothyroidism -on replacement with TSH this admit 0.25 (possibly due to acute illness, amiodarone and levothyroxine) 10. Mod-Severe MR on echo -Plan for outpatient TOBY Clinically stable from a cardiac standpoint. Home medication recommendations: Plavix 75 mg daily Bisoprolol 5 mg daily Hold amiodarone and diltiazem at this time. Consider restarting amiodarone at follow-up if needed and if LFTs remain stable or returned to normal. Follow-up in our office in 1 week with EKG. Should also have lab work next week including BMP and CBC.
--- NOTE | 2023-08-14 09:52 | DIET.NUTRFU ---
Saw patient today, she has not had BM since admit on 08/08. [place] was added 08/12, she normally takes 2/night at home. Spoke to nursing today about increasing to home dose of 2/night. Also suggested additional tx to help movement. Patient reported some gas but no discomfort. 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 Meal intake yesterday showed slight decline, only 25% for dinner and few bites for lunch. Labs reviewed. Will continue to monitor
[2023-08-14 10:27] LABS: POC Glucose,Bedside 105 (70-110)
--- NOTE | 2023-08-14 12:27 | PC.NURSE ---
pt. wanted to wait until after she eats to get her dulcolax.
[2023-08-14] MEDS: BISACODYL 10MG SUPP 10 MG RC (12:51)
[2023-08-14 16:20] LABS: POC Glucose,Bedside 173 (70-110)
--- NOTE | 2023-08-14 16:29 | PC.NURSE ---
Pt is alert and oriented x4 and on RA. Pt remains on telemetry and continues to have a NSR. Pt denies pain, no acute changes this shift.
[2023-08-14 19:43] LABS: POC Glucose,Bedside 171 (70-110)
[2023-08-14] MEDS: SENNA 8.6MG TABLET 8.6 MG PO (20:27)
[2023-08-15] VITALS (7 sets, daily range): BP systolic 123–125; BP diastolic 54–60; PULSE 71–87; RESP 16; TEMP 36.8–36.9; O2SAT 92–97; BMI 30.4
[2023-08-15] MEDS: IPRATROPIUM/ALBUTEROL 3 ML NEB IH ×3 (00:34→11:16)
--- NOTE | 2023-08-15 04:10 | PC.NURSE ---
a/o x 4. Frail. Gross tremors UEs. Exp wheezes noted bilat lung [place]. Occassional dry cough noted. 02 96% on room air. Sinus rhythm/BBB noted on telemetry. HR regular. 1+ edema noted bilat LEs. Several bruises noted bilat LEs. Drsg to right triple lumen subclavian central line C/D/I. Purewic in use. Denies SOA or pain.
[2023-08-15] MEDS: LEVOTHYROXINE 75MCG (0.075MG) TAB 75 MCG PO (05:59)
[2023-08-15 06:05] LABS: POC Glucose,Bedside 123 (70-110)
[2023-08-15] MEDS: FERROUS SULFATE 325MG TABLET 325 MG PO (08:33)
[2023-08-15] MEDS: predniSONE 10MG TAB 10 MG PO (08:33)
[2023-08-15] MEDS: CLOPIDOGREL 75MG TAB 75 MG PO (08:33)
[2023-08-15] MEDS: POTASSIUM CHLORIDE 20MEQ TAB 20 MEQ PO (08:33)
[2023-08-15] MEDS: BISOPROLOL 5MG TABLET 5 MG PO (08:33)
--- NOTE | 2023-08-15 09:39 | EXP.ACUTE.PN ---
Subjective *Date: 08/15/23 *Time: 09:39 Interval history: The patient has been accepted for admission to [facility]. She is stable for discharge at this time. She is off her IV antibiotics. I am reluctant to restart amiodarone. Her liver enzymes have improved dramatically with AST at 130 ALT at 193 and alkaline phosphatase normal at 90. Her renal function has improved significantly as well with a GFR of 24 and creatinine of 2. I am going to continue her on daily dose of sulfa trimethoprim to try to avoid recurrence of pulmonary infection. She cultured out E. coli and Staph aureus. Medical Exam Vital signs and Labs for Last 24 Hours: Vital Signs Temp Pulse Pulse Resp BP BP BP 08/15/23 09:00 08/15/23 08:00 08/15/23 08:00 98.2 F 80 16 123/54 L 08/15/23 06:27 08/15/23 06:21 73 08/15/23 06:21 08/15/23 04:57 08/15/23 04:00 98.4 F 76 16 125/60 08/15/23 03:55 79 08/15/23 03:00 08/15/23 01:00 08/15/23 00:34 71 08/15/23 00:34 08/15/23 00:00 73 08/14/23 23:53 97.9 F 78 21 132/64 08/14/23 22:54 08/14/23 21:00 08/14/23 20:00 75 08/14/23 20:00 98.2 F 71 18 140/69 08/14/23 19:55 08/14/23 18:42 67 08/14/23 18:32 08/14/23 16:39 08/14/23 16:00 97.7 F 70 17 157/75 H 08/14/23 16:00 80 08/14/23 14:51 08/14/23 12:34 08/14/23 12:00 70 08/14/23 12:00 97.6 F 70 17 153/85 H 08/14/23 11:33 71 08/14/23 11:33 72 08/14/23 11:00 Pulse Ox O2 Del Method 08/15/23 09:00 Room Air 08/15/23 08:00 Room Air 08/15/23 08:00 97 Room Air 08/15/23 06:27 Room Air 08/15/23 06:21 08/15/23 06:21 93 L Room Air 08/15/23 04:57 Room Air 08/15/23 04:00 94 L Room Air 08/15/23 03:55 08/15/23 03:00 Room Air 08/15/23 01:00 Room Air 08/15/23 00:34 08/15/23 00:34 94 L Room Air 08/15/23 00:00 08/14/23 23:53 96 Room Air 08/14/23 22:54 Room Air 08/14/23 21:00 Room Air 08/14/23 20:00 08/14/23 20:00 96 Room Air 08/14/23 19:55 96 Room Air 08/14/23 18:42 08/14/23 18:32 Room Air 08/14/23 16:39 Room Air 08/14/23 16:00 96 Room Air 08/14/23 16:00 08/14/23 14:51 Room Air 08/14/23 12:34 Room Air 08/14/23 12:00 08/14/23 12:00 95 Room Air 08/14/23 11:33 08/14/23 11:33 08/14/23 11:00 Room Air Intake and Output 08/14/23 08/15/23 08/15/23 19:59 03:59 11:59 Intake Total 450 / 690 240 / 690 Output Total 450 / 1550 900 / 1550 200 / 1550 Balance 0 / -860 -660 / -860 -200 / -860 Intake: Intake, Oral Amount 450 / 690 240 / 690 Output: Output, Urine Amount 900 / 1100 200 / 1100 Output, Urine Amount (Catheter) 450 / 450 Saeed 450 / 450 Other: Number of Voids 1 0 Number of Unmeasured Voids 1 0 0 Number of Bowel Movements 1 Weight 161 lb 4.996 oz Patient Weight 08/15/23 11:59 Weight 161 lb 4.996 oz Laboratory Results - last 24 hr 08/14/23 10:19: POC Glucose 105 08/14/23 16:12: POC Glucose 173 H 08/14/23 19:29: POC Glucose 171 H 08/15/23 05:54: POC Glucose 123 H I & O for Labs for Last 24 Hours: Intake & Output 08/12/23 08/13/23 08/14/23 08/15/23 11:59 11:59 11:59 11:59 Intake Total 4368.241 / 4368.241 1904.421 / 1904.421 570 / 570 690 / 690 Output Total 3990 / 3990 3280 / 3655 2475 / 2475 1550 / 1550 Balance 378.241 / 378.241 -1375.579 / -1750.579 -1905 / -1905 -860 / -860 Weight 147 lb 11.355 oz 163 lb 3 oz 161 lb 5 oz 161 lb 4.996 oz Head: Present normocephalic Neck: Present full ROM Respiratory: Present decreased breath sounds, rales (Right base) and rhonchi (Right base) Cardiac: Present Reg Rate and Rhythm GI: Present soft; Absent tenderness Rectal (female): Present deferred (female): Present deferred Comment:: Saeed has been discontinued. Extremities: Absent edema Skin: Present intact Neuro: Present alert, awake and oriented x 3 Assessment and Plan *Assessment and plan (1) Septic shock: Status: Acute Category: Medical Code(s): A41.9 - Sepsis, unspecified organism; R65.21 - Severe sepsis with septic shock (2) Anemia: Status: Acute Qualifiers: Anemia type: unspecified type Qualified Code(s): D64.9 - Anemia, unspecified Category: Medical Code(s): D64.9 - Anemia, unspecified (3) Transaminitis: Status: Acute Category: Medical Code(s): R74.01 - Elevation of levels of liver transaminase levels (4) Acute on chronic renal failure: Status: Acute Qualifiers: Acute renal failure type: unspecified Chronic kidney disease stage: unspecified stage Qualified Code(s): N17.9 - Acute kidney failure, unspecified; N18.9 - Chronic kidney disease, unspecified Category: Medical Code(s): N17.9 - Acute kidney failure, unspecified; N18.9 - Chronic kidney disease, unspecified (5) Constipation: Status: Acute Qualifiers: Constipation type: unspecified constipation type Qualified Code(s): K59.00 - Constipation, unspecified Category: Medical Code(s): K59.00 - Constipation, unspecified (6) Elevated liver enzymes: Status: Acute Category: Medical Code(s): R74.8 - Abnormal levels of other serum enzymes (7) Pneumonia: Status: Acute Category: Medical Code(s): J18.9 - Pneumonia, unspecified organism (8) Cervical spinal stenosis: Problem Comment: Awaiting cervical spine MRI requested by neurosurgery, [facility] Status: Chronic Category: Medical Code(s): M48.02 - Spinal stenosis, cervical region (9) Tremor: Problem Comment: Most likely essential tremor Status: Chronic Category: Medical Code(s): R25.1 - Tremor, unspecified (10) General weakness: Status: Chronic Category: Medical Code(s): R53.1 - Weakness (11) Stage 3a chronic kidney disease (CKD): Status: Chronic Category: Medical Code(s): N18.31 - Chronic kidney disease, stage 3a (12) Debility: Status: Acute Category: Medical Code(s): R53.81 - Other malaise (13) Tremors of nervous system: Status: Acute Category: Medical Code(s): R25.1 - Tremor, unspecified (14) Asthma-chronic obstructive pulmonary disease overlap syndrome: Status: Acute Category: Medical Code(s): J44.9 - Chronic obstructive pulmonary disease, unspecified (15) Type 2 diabetes mellitus with diabetic neuropathy, without long-term current use of insulin: Status: Chronic Category: Medical Code(s): E11.40 - Type 2 diabetes mellitus with diabetic neuropathy, unspecified Plan Transferred today to [facility]. See medication list. Sulfa trimethoprim will be continued on a once daily basis. She will receive a dose p.o. prior to discharge from [facility].
--- NOTE | 2023-08-15 10:10 | EXP.DC.SUM ---
General Admission date:: 08/09/23 HPI HPI HPI: Patient is a 73-year-old female with history of hypertension, hyperlipidemia, chronic kidney disease, CAD, COPD on home oxygen, history of paroxysmal atrial fibrillation. She was brought to the emergency department by EMS after she was noted to have lethargy and decreased responsiveness. Upon presentation to the emergency department she was noted to be hypotensive with a blood pressure of 70s. She had diminished oxygen saturations. Of note, patient was recently hospitalized from 07/24/2023 until 07/28/2023 for pneumonia. After admission she was placed on Levophed drip. Hospital Course Hospital Course Hospital Course: The patient has known chronic lung disease and has been desscribed by pulmonology as asthma/COPD overlap syndrome. Her chest x-ray on admission showed multifocal nodular opacities in the right middle lobe area which had been previously noted. Question of infection was present. She subsequently cultured E. coli and Staph aureus from her sputum. It was felt that she was exhibiting septic shock with low blood pressures. She required Levophed. IV antibiotics were instituted. She received vancomycin and azithromycin. On admission renal failure was noted with BUN of 52 creatinine 3.2 and GFR in the range of 15. Her hemoglobin was only 8.9 on admission. Liver functions were also elevated on admission. AST was 487 ALT was also 487. Alkaline phosphatase was elevated 142. She stabilized after admission but remained on Levophed due to low blood pressures. When her hemoglobin had dropped to 7.4 on 522 2 units of packed red blood cells were administered. This seemed to significantly stabilize the patient and she was able to come off Levophed. On 08/12 she required 40 units of Lasix IV. By August 13 the patient was stable and ready for transfer. [facility] was contacted and accepted her for admission on 525. Prior to discharge her AST had declined to 130 her ALT was 193 her alkaline phosphatase was 90. Renal function had improved to a creatinine of 2 and a GFR of 24. The patient was on amiodarone prior to admission for past history of atrial fibrillation when she was hospitalized with COVID-19. Due to the elevated liver enzymes amiodarone was discontinued during this hospitalization. Other medications that the patient had been receiving were also limited due to her low blood blood pressure and liver and kidney dysfunction. She did not receive primidone for her tremor. She states that she cannot tell much difference taking the primidone anyway. She was admitted on bisoprolol 10 mg but was discharged on bisoprolol 5 mg. Diltiazem was not continued during the hospitalization due to the low breath blood pressure. Since the sputum showed E. coli and Staph aureus she will receive oral sulfa trimethoprim for extended time on a daily basis at the nursing facility. IV antibiotics were discontinued prior to discharge. During hospitalization cardiology was consulted on the patient. Pulmonary Consult was not available but she has follow-up there and with cardiology arranged at discharge. Exam Data for Last 24 hours Vital signs and Labs for Last 24 Hours: Temp Pulse Resp BP Pulse Ox O2 Del Method O2 Flow Rate 98.2 F 80 16 123/54 L 97 Room Air 1 08/15/23 08:00 08/15/23 08:00 08/15/23 08:00 08/15/23 08:00 08/15/23 08:00 08/15/23 09:00 08/11/23 13:00 FiO2 35 08/13/23 04:00 Laboratory Results - last 24 hr 08/14/23 10:19: POC Glucose 105 08/14/23 16:12: POC Glucose 173 H 08/14/23 19:29: POC Glucose 171 H 08/15/23 05:54: POC Glucose 123 H I & O for Last 24 hours: Intake & Output 08/12/23 08/13/23 08/14/23 08/15/23 11:59 11:59 11:59 11:59 Intake Total 4368.241 / 4368.241 1904.421 / 1904.421 570 / 570 690 / 690 Output Total 3990 / 3990 3280 / 3655 2475 / 2475 1550 / 1550 Balance 378.241 / 378.241 -1375.579 / -1750.579 -1905 / -1905 -860 / -860 Weight 147 lb 11.355 oz 163 lb 3 oz 161 lb 5 oz 161 lb 4.996 oz Constitutional Constitutional: mild distress (on admission) *Routine HEENT Exam Head: Present normocephalic *Routine Neck Exam Neck: Absent full ROM Routine Chest/Breast/Axilla Exam Chest wall: Absent tenderness *Routine Respiratory Exam Respiratory: Present decreased breath sounds, respiratory distress (On admission), rhonchi and wheezes *Routine Cardiovascular Exam Cardiovascular: Present RRR *Routine Abdominal Exam Abdominal: Present soft; Absent tenderness *Routine Rectal Exam Comments: Deferred *Routine Exam Comments: Deferred on admission. Subsequently had Saeed catheter. Catheter was removed the day prior to discharge *Routine Extremities Exam Extremities: Absent edema (She never really showed much edema during her hospitalization. Flowtron was placed) Routine Back/Spine/Pelvis Exam Back/Spine: Present kyphosis *Routine Skin Exam Skin: Present ecchymosis (Of the forearms) *Routine Neurological Exam Neurological: Present alert (Throughout hospitalization) and oriented X3 Routine Psychiatric Exam Psychiatric: Present normal affect and normal thought process Results Data Completed and Pending Labs on day of discharge: Labs from last 24 hours 08/15/23 08/14/23 08/14/23 05:54 19:29 16:12 POC Glucose 123 H 171 H 173 H 08/14/23 10:19 POC Glucose 105 DS: Diagnosis Discharge Diagnosis (1) Septic shock: Status: Acute Code(s): A41.9 - Sepsis, unspecified organism; R65.21 - Severe sepsis with septic shock (2) Anemia: Status: Acute Code(s): D64.9 - Anemia, unspecified Qualifiers: Anemia type: unspecified type Qualified Code(s): D64.9 - Anemia, unspecified (3) Transaminitis: Status: Acute Code(s): R74.01 - Elevation of levels of liver transaminase levels (4) Acute on chronic renal failure: Status: Acute Code(s): N17.9 - Acute kidney failure, unspecified; N18.9 - Chronic kidney disease, unspecified Qualifiers: Acute renal failure type: unspecified Chronic kidney disease stage: unspecified stage Qualified Code(s): N17.9 - Acute kidney failure, unspecified; N18.9 - Chronic kidney disease, unspecified (5) Constipation: Status: Acute Code(s): K59.00 - Constipation, unspecified Qualifiers: Constipation type: unspecified constipation type Qualified Code(s): K59.00 - Constipation, unspecified (6) Elevated liver enzymes: Status: Acute Code(s): R74.8 - Abnormal levels of other serum enzymes (7) Pneumonia: Status: Acute Code(s): J18.9 - Pneumonia, unspecified organism (8) Cervical spinal stenosis: Status: Chronic Code(s): M48.02 - Spinal stenosis, cervical region Problem details: Awaiting cervical spine MRI requested by neurosurgery, [facility] (9) Tremor: Status: Chronic Code(s): R25.1 - Tremor, unspecified Problem details: Most likely essential tremor (10) General weakness: Status: Chronic Code(s): R53.1 - Weakness (11) Stage 3a chronic kidney disease (CKD): Status: Chronic Code(s): N18.31 - Chronic kidney disease, stage 3a (12) Debility: Status: Acute Code(s): R53.81 - Other malaise (13) Asthma-chronic obstructive pulmonary disease overlap syndrome: Status: Acute Code(s): J44.9 - Chronic obstructive pulmonary disease, unspecified (14) Type 2 diabetes mellitus with diabetic neuropathy, without long-term current use of insulin: Status: Chronic Code(s): E11.40 - Type 2 diabetes mellitus with diabetic neuropathy, unspecified Meds Home Medications and Allergies Home Medications Medication Instructions Recorded Confirmed Type tiotropium bromide 1.25 2 puff inhalation DAILY 02/17/22 08/10/23 History mcg/actuation mist for inhalation (Spiriva Respimat) ferrous sulfate 325 mg (65 mg 325 mg PO BID 05/15/22 08/10/23 History iron) tablet (Feosol) sennosides 8.6 mg tablet (senna) 8.6 mg PO DAILY 05/15/22 08/10/23 History primidone 50 mg tablet 100 mg PO HS 05/19/23 08/10/23 History magnesium oxide 400 mg (241.3 mg 400 mg PO DAILY 08/09/23 08/10/23 History magnesium) tablet clopidogrel 75 mg tablet 75 mg PO DAILY 08/10/23 08/10/23 History gabapentin 100 mg capsule 100 mg PO BID 08/10/23 08/10/23 History levothyroxine 75 mcg tablet 75 mcg PO DAILY 08/10/23 08/10/23 History potassium chloride 10 mEq 10 meq PO DAILY 08/10/23 08/10/23 History tablet,extended release bisoprolol fumarate 5 mg tablet 5 mg PO DAILY #30 tabs 08/15/23 Rx sulfamethoxazole 800 1 tab PO DAILY pulmonary infection 08/15/23 Rx mg-trimethoprim 160 mg tablet #20 tabs (Bactrim DS) New Prescriptions to Start Prescriptions: bisoprolol fumarate Jack Moore sulfamethoxazole-trimethoprim [Bactrim DS] Jack Moore Allergies Allergy/AdvReac Type Severity Reaction Status Date / Time alendronate sodium Allergy Intermediate Dizziness Verified 07/30/23 14:25 [From Fosamax] isosorbide Allergy Unknown Verified 07/30/23 14:25 allergy reaction atorvastatin [From Lipitor] AdvReac Intermediate Weakness Verified 07/30/23 14:25 tuberculin,PPD,multi-puncture AdvReac Mild POSITIVE Verified 07/30/23 14:25 REACTOR Discharge Plan Disposition Patient Disposition: er SNF Condition: Critical Discharge Order Discharge Orders: Discharge Order (Routine); Ordered 08/15/23 Ordered By: Jack Moore Follow up Plan Follow up with: Jack Moore MD [Primary Care Provider] - 08/26/23 Jonathan Gallardo MD [Staff Physician] - Enter time for follow up Devon Olea MD [Physician] - Enter time for follow up Prescriptions/Medication Reconciliation: New bisoprolol fumarate 5 mg Tablet 5 mg PO DAILY Qty: 30 10RF sulfamethoxazole-trimethoprim [Bactrim DS] 800-160 mg tablet 1 tab PO DAILY Qty: 20 0RF Continued sennosides [senna] 8.6 mg tablet 8.6 mg PO DAILY ferrous sulfate [Feosol] 325 mg (65 mg iron) tablet 325 mg PO BID primidone 50 mg tablet 100 mg PO HS magnesium oxide 400 mg (241.3 mg magnesium) Tablet 400 mg PO DAILY potassium chloride 10 mEq tablet extended release 10 meq PO DAILY clopidogrel 75 mg tablet 75 mg PO DAILY gabapentin 100 MG capsule 100 mg PO BID levothyroxine 75 mcg tablet 75 mcg PO DAILY Spiriva Respimat 1.25 mcg/actuation mist 2 puff IH DAILY Discontinued montelukast [Singulair] 10 mg tablet 10 mg PO PM pantoprazole 40 mg tablet,delayed release (DR/EC) 40 mg PO DAILY amiodarone 200 mg tablet 200 mg PO DAILY telmisartan 20 mg tablet 20 mg PO DAILY Jardiance 25 mg tablet 25 mg PO DAILY rosuvastatin 40 mg tablet 40 mg PO DAILY bisoprolol fumarate 10 mg tablet 10 mg PO DAILY diltiazem HCl [DILT-XR] 180 mg capsule,ext.rel 24h degradable 180 mg PO DAILY Problem Reconciliation Problems Reviewed?: Yes Patient Discharge Instructions ACTIVITY: Up with assistance DIET: diabetic diet Patient Instructions: Anemia, DI for Urinary Tract Infection (UTI), DI for Sepsis -- Adult, DI for Central Line-Associated Bloodstream Infections, Catheter-Associated Urinary Tract Infection Providers Primary Care Provider: Jack Moore Admit Provider: Barry García Attending Provider: Jack Moore
--- NOTE | 2023-08-15 10:31 | XR_ITS ---
PROCEDURE INFORMATION: Exam: XR Chest Exam date and time: 08/15/2023 10:54 AM Age: 73 years old Clinical indication: Post PICC removal TECHNIQUE: Imaging protocol: Radiologic exam of the chest. Views: 1 view. COMPARISON: CR XR CHEST PORTABLE 08/12/2023 8:15 PM FINDINGS: Tubes, catheters and devices: Interval removal of right-sided central line. Lungs: Improving aeration right base. Pleural spaces: Decreasing right pleural effusion. Heart/Mediastinum: Unremarkable. No cardiomegaly. Bones/joints: Unremarkable. IMPRESSION: 1. Interval removal of right-sided central line. 2. Improving aeration right base. 3. Decreasing right pleural effusion.
--- NOTE | 2023-08-15 10:55 | PC.NURSE ---
called report to tiffani at [facility]
[2023-08-15] MEDS: SULFA/TRIMETHOPRIM 1 TABLET 1 EACH PO (11:06)
--- NOTE | 2023-08-15 12:34 | PC.NURSE ---
late entry: notified ems of transport, waiting for draft roller picker
== END 2023-08-15 13:00 | DRG 871 ==
LOC: ER 20:37 → 2ND 21:28
PROVIDERS: Physician Assistant; Admitting Provider Internal Medicine Adolescent Medicine; Emergency Provider Emergency Medicine; PCP Family Medicine; Visit Provider Family Medicine
DX: A41.9 Sepsis, unspecified organism (principal); J15.69 Pneumonia due to other Gram-negative bacteria; R65.21 Severe sepsis with septic shock; J15.9 Unspecified bacterial pneumonia; N17.9 Acute kidney failure, unspecified; N39.0 Urinary tract infection, site not specified; J96.10 Chronic respiratory failure, unspecified whether with hypoxia or hypercapnia; E87.1 Hypo-osmolality and hyponatremia; E11.69 Type 2 diabetes mellitus with other specified complication; I25.10 Atherosclerotic heart disease of native coronary artery without angina pectoris; E11.22 Type 2 diabetes mellitus with diabetic chronic kidney disease; N18.31 Chronic kidney disease, stage 3a; I25.2 Old myocardial infarction; Z87.891 Personal history of nicotine dependence; E11.40 Type 2 diabetes mellitus with diabetic neuropathy, unspecified; Z95.5 Presence of coronary angioplasty implant and graft; E78.5 Hyperlipidemia, unspecified; I48.0 Paroxysmal atrial fibrillation; M19.90 Unspecified osteoarthritis, unspecified site; J43.9 Emphysema, unspecified; D63.1 Anemia in chronic kidney disease; E03.9 Hypothyroidism, unspecified; K59.00 Constipation, unspecified; R25.1 Tremor, unspecified; I34.0 Nonrheumatic mitral (valve) insufficiency; Z99.81 Dependence on supplemental oxygen
CPT/HCPCS: 36556; 36415; 51702; 71045; 71046; 71250; 74176; 80050; 80053; 81001; 82140; 82728; 82803; 82962; 83605; 83690; 83735; 84145; 84443; 84484; 85007; 85014; 85018; 85025; 85027; 86850; 87040; 87086; 87581; 87632; 87635; 87798; 93005; 93306; 94640; 97162; 97166; 97530; 99291; C1751; J0131; J0456; J1642; J2543; P9016

== ENCOUNTER 2023-08-18 14:22 | Outpatient (CLI) | payer MEDICARE, MEDICAID, SELFPAY ==
[2023-08-18 14:58] LABS: Basophils % 0.4 % (0.1-2.0); Eosinophils # 0.5 K/mm3 (0.0-0.4); Hematocrit 37.9 % (37.0-47.0); Hemoglobin 12.1 g/dL (12.2-16.2); Lymphocytes # 1.2 K/mm3 (0.7-4.5); Lymphocytes % 10.9 % (10-50); Mean Corpuscular HGB Conc 32.1 g/dL (31.8-35.4); Mean Corpuscular Hemoglobin 29.5 pg (27.0-31.2); Mean Platelet Volume 8.2 fl (7.4-10.4); Monocytes # 0.4 K/mm3 (0.1-1.0); Monocytes % 3.6 % (1.7-9.3); Neutrophils # 9.2 K/mm3 (1.8-7.8); Neutrophils % 81.1 % (37.0-80.0); Platelet Count 371 K/mm3 (142-424); Red Blood Count 4.12 M/mm3 (4.20-5.40); Red Cell Distribution Width 16.2 % (11.5-17.5); White Blood Count 11.4 K/mm3 (4.8-10.8)
[2023-08-18 16:52] LABS: Chloride 105 mmol/L (98-107); Potassium 5.5 mmoL/L (3.5-5.1); Sodium 135 mmol/L (136-145)
[2023-08-18 16:54] LABS: Alanine Aminotransferase 189 U/L (12-78); Alkaline Phosphatase 145 U/L (38-126); Anion Gap 15.5 mEq/L (5-15); Aspartate Amino Transferase 113 U/L (14-36); Bilirubin,Direct 0.3 mg/dl (0.0-0.4); Bilirubin,Total 0.3 mg/dl (0.2-1.3); Blood Urea Nitrogen 37 mg/dl (7-17); Carbon Dioxide 20 mmol/L (22.0-30.0); Estimated Glomerular Filt Rate 28 ml/min (>60); GFR (African American) 33 ML/MIN (>60)
[2023-08-18 16:55] LABS: Albumin Level 2.9 g/dl (3.5-5.0); Calcium 9.1 mg/dl (8.4-10.2); Glucose 169 mg/dl (74-100); Magnesium 1.7 mg/dl (1.6-2.3); Total Protein,Serum 5.9 g/dl (6.3-8.2)
== END 2023-08-18 23:59 | disposition home or self-care (01) ==
LOC: LAB 14:24
PROVIDERS: PCP Family Medicine; Visit Provider Internal Medicine
DX: E78.2 Mixed hyperlipidemia (principal); I11.9 Hypertensive heart disease without heart failure; I25.118 Atherosclerotic heart disease of native coronary artery with other forms of angina pectoris; I34.0 Nonrheumatic mitral (valve) insufficiency; I48.0 Paroxysmal atrial fibrillation; Z79.899 Other long term (current) drug therapy
CPT/HCPCS: 36415; 80048; 80076; 83735; 85025

== ENCOUNTER 2023-08-25 11:35 | Outpatient (CLI) | payer MEDICARE, MEDICAID, SELFPAY ==
--- NOTE | 2023-08-25 13:09 | CA_ITS ---
APPROVED REPORT EXAM: Limited 2D and color flow Echocardiogram Photo Editor: Mallory De La Vega RVT Ht: 5 ft 1 in Wt: 173lbs BSA: 1.78 BP: 124/61 mmHg Indications: REEVALUATE MV/MR,COPD,EDEMA,HTN M-Mode Dimensions RVDd 2.46 cm (0.9-2.6) LA Diam 4.20 cm (1.9-4.0) LVDd 4.36 cm (3.5-5.7) LVDs 3.22 cm (3.5-5.7) IVSd 1.07 cm (0.6-1.1) PWd 0.82 cm (0.6-1.1) EF (Teich) 51.50% FS 26.10% EDV (Teich) 85.80 mL ESV (Teich) 41.60 mL LV Diastology E Decel Time 163 (160-240 msec) E/A Ratio 2.0 Mitral Valve MV E Max Neville. 181.0 (40-130 cm/s) MV A Velocity 91.0 (40-130 cm/s) E/A Ratio 1.99 MV Mean Gr. 4.20 (<2mmHg) MV PHT 48.0 ms Other Information Study Quality: Fair Conclusion This is a limited TTE to evaluate for severity of mitral regurgitation post adequate diuresis. Limited windows were obtained. There is moderate mitral annular calcification present. The mitral valve leaflets are mildly thickened. Mild mitral stenosis is present. Mean MV gradient is 5 mmHg (HR 88 bpm). Severe mitral regurgitation is present. The MR jet is eccentric and posteriorly directed. The mechanism of MR is difficult to characterize on TTE, but likely related to tethered posterior MV leaflet versus MV leaflet calcification (Josie class IIIA or IIIB). In the setting of severe mitral regurgitation, further evaluation with TOBY is recommended to evaluate mechanism and severity of MR, as well as management options. Electronically signed by : Bette Olvera MD 08/27/2023 00:44:02
== END 2023-08-25 23:59 | disposition home or self-care (01) ==
LOC: RAD 11:35
PROVIDERS: PCP Family Medicine; Visit Provider Internal Medicine
DX: I11.9 Hypertensive heart disease without heart failure (principal); I25.118 Atherosclerotic heart disease of native coronary artery with other forms of angina pectoris; I48.0 Paroxysmal atrial fibrillation; Z79.899 Other long term (current) drug therapy; E78.2 Mixed hyperlipidemia; I34.0 Nonrheumatic mitral (valve) insufficiency
CPT/HCPCS: 93308

== ENCOUNTER 2023-09-07 11:31 | Outpatient (CLI) | payer MEDICARE, MEDICAID, SELFPAY ==
--- NOTE | 2023-09-07 11:32 | NM_ITS ---
APPROVED REPORT Exam: Nuclear Stress Test Indication: CAD, 2 STENTS, H/O NE, CHF, OBESITY, DM, FM HX, A-FIB, SOB, PALPITATIONS, FATIGUE Patient Location: Outpatient Stress Tech: Kiersten Liu NM Tech:Moniac Martin, ARRT, RT (R)(N) Ht: 5 ft 1 in Wt: 151 lbs Bra Size: B HR: 62 bpm BP: 164/62 mmHg BSA: 1.68 m2 Rhythm: NSR TID: 1.06 BMI: 28.5 History: CAD, 2 STENTS, H/O NE, CHF, OBESITY, DM, FM HX, A-FIB, SOB, PALPITATIONS, FATIGUE PT COULD NOT LAY ON ABDOMEN FOR PRONE IMAGES Procedure: Patient received 0.0 mg of intravenous Lexiscan, resting heart rate 62 bpm, resting blood pressure 164/62 mmHg, with Lexiscan maximum heart rate achieved was 81 bpm which is % of the maximum predicted heart rate and blood pressure was 164/62 mmHg. With Lexiscan, patient denied any complaint of chest pain. Cardiac Stress and Resting SPECT Images: Cardiac Stress and Resting SPECT images were obtained using technetium 99m Myoview 30.5 mCi stress and 10.71 mCi at rest. The patient could not lie on her abdomen. Therefore, prone stress imaging could not be performed. This may affect the diagnostic interpretation of the study findings. There is a large sized, severe, predominantly fixed perfusion defect in the inferior, lateral, and inferolateral LV pichardo. There is a region of reversibility noted in the distal lateral LV wall. Gated imaging demonstrates mild reduction in global LV systolic function. There is severe hypokinesis of the inferior and lateral LV pichardo. LVEF is calculated at 44%. Conclusion: Large sized, severe, predominantly fixed perfusion defect in the inferior, lateral, and inferolateral LV pichardo. There is a region of reversibility noted in the distal lateral LV wall. Gated imaging demonstrates mild reduction in global LV systolic function. There is severe hypokinesis of the inferior and lateral LV pichardo. LVEF is calculated at 44%. Electronically signed by : Bette Olvera MD 09/08/2023 13:07:40
[2023-09-07] MEDS: REGADENOSON 0.4MG/5ML SYRINGE 0.4 MG IV (13:54)
[2023-09-07] MEDS: SODIUM CHLORIDE 0.9% 10ML SYR (RAD ONLY) 10 ML IV ×2 (13:55)
[2023-09-07] MEDS: ISOTOPE MYOVIEW (PER STUDY) 1 DOSE IV (13:55)
--- NOTE | 2023-09-07 14:07 | CA_ITS ---
APPROVED REPORT Exam: Pharmacologic Technologist: Kiersten Liu Ht: 5 ft 1 in Wt: 151 lbs BSA: 1.68 m2 HR: 61 bpm BP: 164/62 mmHg Rhythm: NSR Indications: CHF Medical History Medications: Spiriva,,,,, Levothyroxine,,,,, Amiodarone,,,,, Ferrous sulfate,,,,, Gabapentin,,,,, Pantoprazole,,,,, Montelukast,,,,, CloPIdogrel,,,,, Magnesium,,,,, Telmisartan,,,,, BisOPROLOL,,,,, DilTiazem,,,,, Stress Test Details Test: Pharmacologic - Lexiscan HR Resting HR: 62 bpm Max Heart Rate (APMHR): 147 bpm Max HR Achieved: 81 bpm Target HR (85% APMHR): 125 bpm % of APMHR: 55 Recovery HR: 77 bpm BP Resting BP: 164.0/62.0 mmHg Max BP: 164.0/62.0 mmHg Recovery BP: 154.0/54.0 mmHg ECG Resting ECG: Normal sinus rhythm, nonspecific ST???T wave changes in inferior and lateral leads Stress ECG: No significant ST changes Arrhythmia: None Clinical Exercise duration: 04:53 min Highest Stage Achieved: Exercise capacity: 1.0 METs Stress ECG Conclusion (Blood Pressure malfunction due to patient tremor) Symptoms: None Arrhythmias/Ectopy: None ST-T Changes: No significant ST changes Conclusion: Non-diagnostic Lexiscan stress due to baseline abnormalities. Myoview images reported separately. Test Summary REST . . . . . . . Resting REST 16:14 0.0 0.0 62 . 164/ 62 . . Stage 1 . . . . . . . Myoview Injected Stage 1 01:00 10.0 0.0 78 . . . . Stage 1 02:00 10.0 0.0 80 . . . . Stage 1 03:00 10.0 0.0 78 . . . . Stage 2 01:00 12.0 0.0 76 . . . . Stage 2 01:53 12.0 0.0 77 . . . Stop exercise at 04:53 RECOVERY 00:35 0.0 0.0 77 . 154/ 54 . . Electronically signed by : Bette Olvera MD 09/08/2023 12:56:13
== END 2023-09-07 23:59 | disposition home or self-care (01) ==
LOC: RAD 11:32
PROVIDERS: PCP Family Medicine; Visit Provider Internal Medicine
DX: I11.0 Hypertensive heart disease with heart failure (principal); I25.118 Atherosclerotic heart disease of native coronary artery with other forms of angina pectoris; I50.30 Unspecified diastolic (congestive) heart failure; I48.0 Paroxysmal atrial fibrillation; E78.2 Mixed hyperlipidemia; Z79.899 Other long term (current) drug therapy
CPT/HCPCS: 78452; 93017; 93018; A9502; J2785

== ENCOUNTER 2023-09-09 08:48 | Outpatient (CLI) | payer MEDICARE, MEDICAID, SELFPAY ==
--- NOTE | 2023-09-09 08:53 | MR_ITS ---
FINAL REPORT TECHNIQUE: Multiplanar MR without gadolinium enhancement CLINICAL HISTORY: CERVICAL RADICULOPATHY. LEFT SIDED NECK PAIN. BILATERAL ARM AND HAND NUMBNESS AND TINGLING. COMPARISON: None FINDINGS: Limited images of the posterior fossa are unremarkable. There is 3 mm of anterior subluxation of C3 on C4, 4 mm of anterior subluxation of C4 on C5, and 2 mm of posterior subluxation of C5 on C6. Cervical spinal cord shows normal signal and contour. There is moderate degradation of overall image quality secondary to motion artifact. C2-3: There is no evidence of significant central canal stenosis or neural foraminal narrowing. C3-4: A moderate annular bulge is present with ligamentum flavum hypertrophy producing severe central canal stenosis with mild cord compression. There is severe bilateral neural foraminal narrowing present as well. C4-5: A moderate annular bulge is present with ligamentum flavum hypertrophy, producing moderate central canal stenosis and severe bilateral neural foraminal narrowing. C5-6: A moderate annular bulge is present with mild central canal stenosis and severe bilateral neural foraminal narrowing. C6-7: An annular bulge is present without evidence of central canal stenosis. C7-T1: An annular bulge is present without evidence of central canal stenosis. IMPRESSION: Multilevel cervical degenerative change is present as described, with subluxation at the C3-4, C4-5, and C5-6 levels, and central canal stenosis most severe at the C3-4 and C4-5 levels. Reviewed, Interpreted and Dictated by Jack Metcalf MD Transcribed by Jenny Lewis Authenticated and [facility]
== END 2023-09-09 23:59 | disposition home or self-care (01) ==
LOC: RAD 08:48
PROVIDERS: PCP Family Medicine; Visit Provider Nurse Practitioner
DX: M54.12 Radiculopathy, cervical region (principal)
CPT/HCPCS: 72141

== ENCOUNTER 2023-09-16 08:37 | Day surgery (SDC) | payer MEDICARE, MEDICAID, SELFPAY ==
[2023-09-16] VITALS (14 sets, daily range): BP systolic 88–201; BP diastolic 50–93; PULSE 60–75; RESP 16–20; O2SAT 92–96; BMI 28.3
--- NOTE | 2023-09-16 07:14 | IR_ITS ---
APPROVED REPORT Patient Location: Outpatient PROCEDURES Left heart catheterization Left ventriculogram Selective coronary angiogram INDICATION Abnormal Myoview, Angina pectoris, Known coronary artery disease, Informed consent was obtained prior to the procedure. COMPLICATIONS None Estimated Blood Loss: Less than 10 mls TECHNIQUE One percent lidocaine used to anesthetize the right anterior aspect of the wrist. The right radial artery was accessed via the Seldinger technique. A 6 Yoruba sheath was placed in the right radial artery. 2.5 mg of Verapamil, 800 mcg of nitroglycerin, 1mg Lidocaine and 5000 U Heparin were given through the arterial sheath. The papa catheter was also used to perform left heart catheterization, left ventriculogram and selective coronary angiogram. At the end of the procedure the sheath was removed good hemostasis was achieved using Traclet band, patient was transferred to the postop holding area in stable condition. ANGIOGRAPHIC RESULTS The left main artery Has a distal 30 to 40% eccentric stenosis The left anterior descending artery Has proximal and mid vessel calcified 30 to 40% stenoses. The vessel gives rise to multiple large septal perforators The circumflex artery Nondominant subtotally occluded The right coronary artery Dominant extensively calcified from the ostial through the proximal and mid segment and is subtotally occluded. There is scant antegrade flow with the distal large PDA filling via [id number] collaterals The TRAORE ventriculogram reveals Reduced at 40 to 45% The left ventricular end-diastolic pressure 20 mmHg IMPRESSION Coronary disease as described above Widely patent large LAD which collateralizes a chronically occluded right coronary artery Reduced ejection fraction Mildly elevated LVEDP PLAN 1. I recommend medical management at this time. Although it is possible to open the right coronary artery I believe the lesion is best managed medically given the extensive [id number] collateral network 2. Maximize antianginal medications 3. Risk factor modification Electronically signed by : Jonathan Gallardo MD 09/16/2023 13:42:58
[2023-09-16 09:11] LABS: Basophils # 0.1 K/mm3 (0-0.2); Basophils % 0.7 % (0.1-2.0); Eosinophils # 0.2 K/mm3 (0.0-0.4); Eosinophils % 2.6 % (0.1-12.0); Hematocrit 35.2 % (37.0-47.0); Hemoglobin 11.1 g/dL (12.2-16.2); Lymphocytes # 1.2 K/mm3 (0.7-4.5); Lymphocytes % 15.2 % (10-50); Mean Corpuscular HGB Conc 31.5 g/dL (31.8-35.4); Mean Corpuscular Hemoglobin 30.8 pg (27.0-31.2); Mean Corpuscular Volume 97.9 fl (81-99); Mean Platelet Volume 8.4 fl (7.4-10.4); Monocytes # 0.5 K/mm3 (0.1-1.0); Neutrophils # 6.1 K/mm3 (1.8-7.8); Neutrophils % 75.5 % (37.0-80.0); Platelet Count 314 K/mm3 (142-424); Red Cell Distribution Width 16.4 % (11.5-17.5); White Blood Count 8.1 K/mm3 (4.8-10.8)
[2023-09-16 09:14] LABS: Chloride 105 mmol/L (98-107); Potassium 4.7 mmoL/L (3.5-5.1); Sodium 137 mmol/L (136-145)
[2023-09-16 09:17] LABS: Blood Urea Nitrogen 29 mg/dl (7-17); Creatinine Clearance Estimated 45 mL/min (50-200); Estimated Glomerular Filt Rate 44 ml/min (>60); GFR (African American) 53 ML/MIN (>60)
[2023-09-16 09:18] LABS: Anion Gap 12.7 mEq/L (5-15); Calcium 9.3 mg/dl (8.4-10.2); Carbon Dioxide 24 mmol/L (22.0-30.0); Glucose 147 mg/dl (74-100)
[2023-09-16] MEDS: HEPARIN 1,000 UNITS/500ML NS (CATH LAB) 3000 UNIT IV (09:56)
[2023-09-16] MEDS: 0.9 % SODIUM CHLORIDE 500 ML 25 ML IV (09:57)
[2023-09-16] MEDS: LIDOCAINE 1% 10ML MDV 20 ML IJ (09:57)
[2023-09-16] MEDS: diphenhydrAMINE 50MG/ML VIAL 50 MG IV (09:59)
[2023-09-16] MEDS: FENTANYL 100MCG/2ML VIAL 50 MCG IV (10:26)
[2023-09-16] MEDS: MIDAZOLAM HCL 1MG/1ML 5ML VIAL 1 MG IV (10:27)
[2023-09-16] MEDS: IOPAMIDOL-370 (76%);100ML BOTTLE 75 ML IV (13:40)
[2023-09-16] MEDS: MORPHINE 4MG/ML SYRINGE 4 MG IV (13:48)
== END 2023-09-16 14:14 | disposition home or self-care (01) ==
PROVIDERS: PCP Family Medicine; Visit Provider Internal Medicine
DX: R93.1 Abnormal findings on diagnostic imaging of heart and coronary circulation (principal); I50.30 Unspecified diastolic (congestive) heart failure; I48.0 Paroxysmal atrial fibrillation; I34.0 Nonrheumatic mitral (valve) insufficiency; I25.118 Atherosclerotic heart disease of native coronary artery with other forms of angina pectoris
CPT/HCPCS: 80048; 85025; 93458; 99152; C1725; C1769; J1644; J2250; J2270; J3010; Q9967

== ENCOUNTER 2023-10-21 07:40 | Outpatient (CLI) | payer MEDICARE, MEDICAID, SELFPAY ==
--- NOTE | 2023-10-21 08:07 | US_ITS ---
FINAL REPORT CLINICAL HISTORY: eval liver morphology FINDINGS: RIGHT UPPER QUADRANT ULTRASOUND Sonographic images of the right upper quadrant were obtained. The pancreas is partially obscured.The liver has an unremarkable appearance. The gallbladder is absent. The common duct is normal. Limited images of the right kidney are normal. IMPRESSION: Status post cholecystectomy, otherwise unremarkable. Reviewed, Interpreted and Dictated by Haroon Osborn MD Transcribed by Yomaira Alfonso Authenticated and [facility]
== END 2023-10-21 23:59 | disposition home or self-care (01) ==
LOC: RAD 07:40
PROVIDERS: PCP Family Medicine; Visit Provider Nurse Practitioner
DX: R74.8 Abnormal levels of other serum enzymes (principal)
CPT/HCPCS: 76705

== ENCOUNTER 2023-12-08 13:48 | Outpatient (CLI) | payer MEDICARE, MEDICAID, SELFPAY ==
--- NOTE | 2023-12-08 13:57 | CT_ITS ---
FINAL REPORT TECHNIQUE: Axial images were obtained from the lung apex to the mid abdomen by computed tomography. Coronal reformatted images were obtained. This study was performed with techniques to keep radiation doses as low as reasonably achievable, (ALARA). Individualized dose reduction techniques using automated exposure control or adjustment of mA and/or kV according to the patient's size were employed. CLINICAL HISTORY: 3 mth f/u; inflammatory changes seen on prior CT COMPARISON: 08/09/2023 FINDINGS: There are scattered right paratracheal and precarinal lymph nodes. There is dense calcification of the aortic arch and at the thoracic aorta. The heart size is normal. There is no pericardial or pleural effusion. Limited images of the upper abdomen demonstrate the gallbladder is surgically absent. The previously noted opacities in the posterior right upper lobe and both lower lobes have nearly resolved. There is mild residual scarring. 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 IMPRESSION: Near resolution of previously noted opacities with mild residual scarring. Reviewed, Interpreted and Dictated by Haroon Osborn MD Transcribed by Maria Alejandra Lainez Authenticated and [facility]
== END 2023-12-08 23:59 | disposition home or self-care (01) ==
PROVIDERS: PCP Family Medicine; Visit Provider Internal Medicine Pulmonary Disease
DX: R91.8 Other nonspecific abnormal finding of lung field (principal); J44.9 Chronic obstructive pulmonary disease, unspecified; R59.0 Localized enlarged lymph nodes; Z87.891 Personal history of nicotine dependence
CPT/HCPCS: 71250

== ENCOUNTER 2024-03-27 13:38 | Inpatient (IN) | payer MEDICARE, MEDICAID, SELFPAY ==
[2024-03-27] VITALS (9 sets, daily range): BP systolic 128–184; BP diastolic 55–95; PULSE 77–98; RESP 18–22; TEMP 36.6–37.1; O2SAT 89–99; BMI 29.2
--- NOTE | 2024-03-27 13:44 | ECG_ITS ---
APPROVED REPORT Exam: Resting ECG HR:80 bpm ECG Measurements Heart Rate 80 AXES OH 138 P 61 QRSd 96 QRS 54 QT 358 T 63 QTc 394 Conclusion SINUS RHYTHM NONSPECIFIC ST & T-WAVE ABNORMALITY BORDERLINE ECG Electronically signed by : OTTO ROJAS, 03/27/2024 15:30:04
--- NOTE | 2024-03-27 13:44 | XR_ITS ---
PROCEDURE INFORMATION: Exam: XR Chest Exam date and time: 03/27/2024 1:56 PM Age: 73 years old Clinical indication: Cough and shortness of breath; Additional info: SOB cough TECHNIQUE: Imaging protocol: Radiologic exam of the chest. Views: 1 view. COMPARISON: CT CHEST WO CON 12/08/2023 2:02 PM FINDINGS: Lungs: Mild opacity in the medial right base may represent atelectasis or pneumonia.. Pleural spaces: Unremarkable. No pleural effusion. No pneumothorax. Heart/Mediastinum: Unremarkable. No cardiomegaly. Bones/joints: Posterior cervical fusion IMPRESSION: Mild opacity in the medial right base may represent atelectasis or pneumonia..
--- NOTE | 2024-03-27 13:52 | ED_ITS ---
Discharge Plan Disposition Patient Disposition: Admitted Prescriptions Prescriptions: No Action sennosides [senna] 8.6 mg tablet 8.6 mg PO DAILY ferrous sulfate [Feosol] 325 mg (65 mg iron) tablet 325 mg PO BID clopidogrel 75 mg tablet 75 mg PO DAILY Dulera 200-5 mcg/actuation HFA aerosol inhaler 2 puff inhalation BID 90 Days Qty: 13 3RF Spiriva Respimat 1.25 mcg/actuation mist 2 puff IH DAILY 90 Days Qty: 4 3RF nystatin 100,000 unit/gram cream topical primidone 50 mg tablet 100 mg PO HS fluticasone propionate 50 mcg/actuation spray,suspension 1 spray intranasal DAILY PRN Rx Instructions: administer into each nostril bisoprolol fumarate 5 mg tablet 10 mg PO DAILY levothyroxine 75 mcg tablet 75 mcg PO DAILY albuterol sulfate 90 mcg/actuation HFA aerosol inhaler 2 puff inhalation Q4-6H PRN magnesium oxide 400 mg (241.3 mg magnesium) Tablet 400 mg PO DAILY gabapentin 100 MG capsule 100 mg PO BID Referrals Follow up/Referrals: Jack Moore MD [Primary Care Provider] - See instructions Clinical Impressions Clinical Impression: Acute hypoxemic respiratory failure, CHF exacerbation, Right middle lobe pneumonia Print Language Print Language: Yakut Discharge ED Provider: Royer Hayden General Adult HPI <Braden Beebe MD - Last Filed: 03/27/24 15:27> General Chief complaint: Shortness of Breath/Dyspnea Stated complaint: difficulty breathing Time Seen by Provider: 03/27/24 13:44 History of Present Illness HPI narrative: Patient is a 73-year-old female past medical history of COPD that has home oxygen at home but does not normally needed and last use was a year ago presents emergency department for evaluation of cough and shortness of breath. Onset was acute, over the last few days, productive cough. She has pleuritic chest pain when taking a deep breath on the left. Due to persistent symptoms she presents here for continued evaluation. Upon EMS arrival patient had to be placed on 2 L nasal cannula for oxygen saturations greater than 90%. No other acute complaints at this time. Related Data Home Medications ?Medication ?Instructions ?Recorded ?Confirmed ferrous sulfate 325 mg (65 mg 325 mg PO BID 05/15/22 02/10/24 iron) tablet (Feosol) sennosides 8.6 mg tablet (senna) 8.6 mg PO DAILY 05/15/22 02/10/24 primidone 50 mg tablet 100 mg PO HS 05/19/23 02/10/24 magnesium oxide 400 mg (241.3 mg 400 mg PO DAILY 08/09/23 02/10/24 magnesium) tablet gabapentin 100 mg capsule 100 mg PO BID 08/10/23 02/10/24 levothyroxine 75 mcg tablet 75 mcg PO DAILY 09/28/23 02/10/24 albuterol sulfate 90 mcg/actuation 2 puff inhalation Q4-6H PRN 10/21/23 02/10/24 aerosol inhaler bisoprolol fumarate 5 mg tablet 10 mg PO DAILY 01/18/24 02/10/24 clopidogrel 75 mg tablet 75 mg PO DAILY 01/18/24 02/10/24 fluticasone propionate 50 1 spray intranasal DAILY PRN 01/18/24 02/10/24 mcg/actuation nasal spray,suspension nystatin 100,000 unit/gram topical topical 02/10/24 02/10/24 cream Previous Rx's ?Medication ?Instructions ?Recorded mometasone-formoterol HFA 200 2 puff inhalation BID 90 days #13 09/02/23 mcg-5 mcg/actuation aerosol grams inhaler (Dulera) tiotropium bromide 1.25 2 puff inhalation DAILY 90 days #4 09/02/23 mcg/actuation mist for inhalation grams (Spiriva Respimat) Allergies Allergy/AdvReac Type Severity Reaction Status Date / Time alendronate sodium (From Allergy Intermediate Dizziness Verified 02/10/24 10:48 Fosamax) isosorbide Allergy Unknown Verified 02/10/24 10:48 allergy reaction atorvastatin (From Lipitor) AdvReac Intermediate Weakness Verified 02/10/24 10:48 tuberculin,PPD,multi-puncture AdvReac Mild POSITIVE Verified 02/10/24 10:48 REACTOR PFS <Braden Beebe MD - Last Filed: 03/27/24 15:27> [facility] Disclaimer: The information contained in this section may have been updated after the patient was seen, as this information can be updated by other users. Medical History Severe mitral regurgitation Abnormal echocardiogram Abnormal nuclear cardiac imaging test Fungal infection Mediastinal lymphadenopathy Hilar lymphadenopathy Endobronchial mass Cervical lymphadenopathy On amiodarone therapy Sleep apnea (HFpEF) heart failure with preserved ejection fraction PAF (paroxysmal atrial fibrillation) Coronary artery disease Mitral regurgitation Anemia Edema of lower extremity Chronic respiratory failure with hypoxia PSG 06/08/2023 at [facility] did not show significant RANDY. Hypoxemia but did not qualify for O2 supplementation during the test. She is already on oxygen at night and as needed during daytime. Other encephalopathy Fluctuating mental status Encephalopathy Recurrent encephalopathy, confusion in the setting of UTI or exacerbation COPD with symptomatic hypoxemia. Numbness and tingling of upper and lower extremities of both sides Diffuse pain Transaminitis Skin tear of right lower leg without complication Transaminitis DIANELYS (acute kidney injury) Incurvated nail 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 Constipation Elevated liver enzymes Hypokalemia Wheeze Onychodystrophy History of smoking 30 or more pack years Stage 3a chronic kidney disease (CKD) GI bleed Pneumonia Exposure to TB Multiple lung nodules on CT Encounter for screening for malignant neoplasm of lung in current smoker with 30 pack year history or greater Smoking greater than 30 pack years Asthma-chronic obstructive pulmonary disease overlap syndrome COPD mixed type O2 at night Atrial fibrillation with rapid ventricular response Acute respiratory failure with hypoxia Pneumonia Pneumonia due to COVID-19 virus Kidney disease Rheumatic fever/heart disease Arthritis Diabetes mellitus, type 2 Sepsis Obesity (BMI 30.0-34.9) Non-STEMI (non-ST elevated myocardial infarction) Multifocal atrial tachycardia Hypertension Hyperlipidemia COPD (chronic obstructive pulmonary disease) Tobacco use Ileus, unspecified SIRS (systemic inflammatory response syndrome) Sepsis Gastroenteritis Right lower lobe pneumonia Pincer nail deformity Type 2 diabetes mellitus with diabetic neuropathy, without long-term current use of insulin Bilateral lower extremity edema Diabetic foot Keratosis Onychogryphosis Pre-ulcerative calluses Surgical History History of neck surgery Hx of removal of ovary History of cholecystectomy History of hip surgery History of coronary artery stent placement Family History Other Coronary artery disease Diabetes Hypertension Social History Smoking Status: Former smoker tobacco type: cigarettes packs per day: 1 years smoked: 50 smoking status stop date: 2 years ago second hand exposure: Yes alcohol intake: never substance use type: denies use current occupational status: retired Travel in the last 8 weeks: None household members: none housing: apartment lives independently: Yes marital status: current occupational exposures/hazards: No caffeine: Yes Have you lived/traveled outside [place] in past 30 days?: No Contact w/someone who lives/traveled outside US past 30 days?: No Exposure to someone with infectious disease in past 14 days?: No Do you have a fever (greater than 100.4 F or 38 C)?: No Have you tested positive for COVID-19: No Exposed to someone with COVID-19 in past 14 days?: No Do you have a sore throat?: No Do you have a cough?: No Do you have any weakness?: No Do you have any diarrhea?: No Are you experiencing any unusual bleeding?: No Do you have any muscle aches/pain?: No Do you have any abdominal pain?: No Are you experiencing loss of taste or smell?: No Other Medical History Have you received the Flu Vaccine for this season: No Have you received the Pneumonia Vaccine: Yes <Braden Beebe MD - Last Filed: 03/27/24 15:27> ROS Obtained: Yes Systems reviewed as appropriate & no additional complaints except as documented Physical Exam <Braden Beebe MD - Last Filed: 03/27/24 15:27> General General appearance: alert and in no apparent distress Head Head exam: atraumatic and normocephalic Eye Eye exam: Present PERRL ENT ENT exam: Present mucous membranes moist Neck Neck exam: Present normal inspection Chest Chest inspection: Present normal inspection and symmetric chest wall rise Respiratory Respiratory exam: Present respiratory distress and wheezes (Biphasic diffuse) Cardiovascular Cardiovascular exam: Present regular rate and normal rhythm Abdominal Exam Abdominal exam: Present soft; Absent tenderness Extremities Exam Extremities exam: Present normal inspection Neurological Exam Neurological exam: Present alert Psychiatric Psychiatric exam: Present normal affect Skin Skin exam: Present warm and dry Medical Decision Making <Braden Beebe MD - Last Filed: 03/27/24 15:27> Medical Records Screening: Per USPSTF and CDC recommendations, given the prevalence of disease in our region, it is our hospital?s policy to screen for HIV and viral Hepatitis for all patients aged 18 and over and those with ongoing risk factors. [place] Inquiry Pt receiving controlled substance: No Vital Signs: 03/27/24 13:49 03/27/24 14:31 03/27/24 15:00 Temperature 97.9 F Temperature Source Oral Pulse Rate 87 93 H Pulse Rate [Left] 89 Respiratory Rate 20 Blood Pressure 139/68 133/57 L Blood Pressure [Right Arm] 184/95 H Blood Pressure Mean [Right Arm] 124 Blood Pressure Source [Right Arm] Automatic Cuff Blood Pressure Position [Right Arm] Sitting 02 Sat by Pulse Oximetry 95 97 89 L Oxygen Delivery Method Room Air Nasal Cannula Nasal Cannula Oxygen Flow Rate (LPM) 2 03/27/24 16:15 03/27/24 16:30 Temperature Temperature Source Pulse Rate 91 H 90 Pulse Rate [Left] Respiratory Rate Blood Pressure 141/62 H 159/71 H Blood Pressure [Right Arm] Blood Pressure Mean [Right Arm] Blood Pressure Source [Right Arm] Blood Pressure Position [Right Arm] 02 Sat by Pulse Oximetry 99 97 Oxygen Delivery Method Nasal Cannula Oxygen Flow Rate (LPM) Lab Data Lab Results 03/27/24 13:55: SARS-CoV-2 (PCR) Not detected, Influenza A Untype (PCR) Not detected, Influenza Type B (PCR) Not detected 03/27/24 14:17: WBC 6.3, RBC 3.97 L, Hgb 12.3, Hct 38.7, MCV 97.5, MCH 31.0, MCHC 31.8, RDW 13.8, Plt Count 271, MPV 10.1, Neut % (Auto) 61.0, Lymph % (Auto) 19.4, Thur[place] % (Auto) 15.2 H, Eos % (Auto) 2.9, Baso % (Auto) 0.5, Neut # (Auto) 3.8, Lymph # (Auto) 1.2, Thurston # (Auto) 1.0, Eos # (Auto) 0.2, Baso # (Auto) 0.0, Sodium Cancelled, Potassium Cancelled, Chloride Cancelled, Carbon Dioxide Cancelled, Anion Gap Cancelled, BUN Cancelled, Creatinine Cancelled, Estimated Creat Clear Cancelled, Estimated GFR Cancelled, Est GFR ( Amer) Cancelled, Glucose Cancelled, Calcium Cancelled, Total Bilirubin Cancelled, AST Cancelled, ALT Cancelled, Alkaline Phosphatase Cancelled, Troponin I 0.02, N T-Pro-B Natriuret Pep 7640 H, Total Protein Cancelled, Albumin Cancelled, Globulin Cancelled, Albumin/Globulin Ratio Cancelled, Lipase 27 03/27/24 14:23: VBG pH 7.40, VBG pCO2 38.3, VBG pO2 50.8 H, VBG HCO3 23.0, VBG Total CO2 24.2, VBG O2 Saturation 90.8 H, VBG Base Excess -1.8, VBG Lactic Acid 1.9 03/27/24 15:57: Sodium 139, Potassium 4.6, Chloride 104, Carbon Dioxide 26, Anion Gap 13.6, BUN 29 H, Creatinine 0.90, Estimated Creat Clear 56, Estimated GFR 61, Est GFR ( Amer) 74, Glucose 118 H, Calcium 9.5, Total Bilirubin 0.4, AST 33, ALT 19, Alkaline Phosphatase 93, Total Protein 7.0, Albumin 4.0, Globulin 3.0, Albumin/Globulin Ratio 1.3 03/27/24 14:17 03/27/24 15:57 Orders (Tests/Meds): ED MEDICATIONS Generic Name Dose Route Start Last Admin Trade Name Freq PRN Reason Stop Dose Admin Ceftriaxone Sodium 2 gm/ 100 mls @ 200 mls/hr 03/27/24 16:30 03/27/24 16:48 Sodium Chloride IV 03/27/24 16:59 200 mls/hr ONCE ONE Administration Discontinued Medications Generic Name Dose Route Start Last Admin Trade Name Jefferyq PRN Reason Stop Dose Admin Albuterol/Ipratropium 9 ml 03/27/24 13:44 03/27/24 14:29 Ipratropium/Albuterol 3 Ml Neb IH 03/27/24 13:45 9 ml ONCE ONE Administration Furosemide 60 mg 03/27/24 15:26 03/27/24 16:36 Furosemide 20 Mg/2 Ml Vial IV 03/27/24 15:27 60 mg ONCE ONE Administration Doxycycline Hyclate 100 mg/ 250 mls @ 166.667 mls/hr 03/27/24 13:44 03/27/24 16:00 Sodium Chloride IV 03/27/24 13:45 166.667 mls/hr ONCE ONE Administration Magnesium Sulfate 2 gm in 50 mls @ 50 mls/hr 03/27/24 13:56 03/27/24 16:09 Magnesium Sulfate 2gm/50ml Premix IV 03/27/24 14:55 50 mls/hr ONCE ONE Administration Iopamidol 70 ml 03/27/24 16:05 03/27/24 16:06 Iopamidol-370 (76%);100ml Bottle IV 03/27/24 16:06 70 ml ONCE ONE Administration Methylprednisolone Sodium Succinate 125 mg 03/27/24 13:44 03/27/24 16:00 Methylprednisolone Sod Succ 125mg Vial IV 03/27/24 13:45 125 mg ONCE ONE Administration Sodium Chloride 50 ml 03/27/24 16:05 03/27/24 16:05 0.9 % Sodium Chloride 50 Ml Vial IV 03/27/24 16:06 50 ml ONCE ONE Administration Sodium Chloride 10 ml 03/27/24 16:05 03/27/24 16:06 Sodium Chloride 0.9% 10ml Syr (Rad Only) IV 03/27/24 16:06 10 ml ONCE ONE Administration Sodium Zirconium Cyclosilicate 10 gm 03/27/24 15:27 03/27/24 15:59 Lokelma 5gm Packet PO 03/27/24 15:28 10 gm ONCE ONE Administration ORDERS Category Date Time Status CT angio chest PE protocol Stat Cat Scan 03/27/24 13:55 Completed XR chest portable Stat Exams 03/27/24 13:44 Completed BNP [NT Pro Brain Natriuretic Pep.] Stat Lab 03/27/24 14:17 Completed CBC w/Auto Diff [Complete Blood Count Auto Diff] Stat Lab 03/27/24 14:17 Completed CMP [Comprehensive Metabolic Panel] Stat Lab 03/27/24 15:57 Completed HIV Combo Stat Lab 03/27/24 14:17 Received Hep C Ab with Reflex to RNA Stat Lab 03/27/24 15:57 Received Lipase Stat Lab 03/27/24 14:17 Completed Rapid PCR Covid and Flu A/B Stat Lab 03/27/24 13:55 Completed Trop I [Troponin I] Stat Lab 03/27/24 14:17 Completed Troponin I Q3H Lab 03/27/24 16:45 Ordered Troponin I Q3H Lab 03/27/24 19:45 Ordered Blood Culture Stat Micro 03/27/24 14:17 Received VBG [Venous Blood Gas] Stat RT 03/27/24 14:23 Completed ECG Data Tracing #1: Independently interpreted by me rate is 80, rhythm is regular, axis is normal, no ST elevation in anatomical contiguous leads, QTc 394 Medical Decision Narrative: In summary patient is 73-year-old female past medical history described above presents emergency department for evaluation of cough, shortness of breath. Patient is hemodynamically stable nontoxic-appearing upon arrival, afebrile, on 2 L nasal cannula which she intermittently requires at home however has not needed in the last year. Differential includes viral induced COPD exacerbation, pulmonary embolism, pneumonia, among others. Workup will be conducted with hematologic labs, chest x-ray, CT angio pulmonary embolism protocol, EKG, troponin. Initial inventions include DuoNebs x 3, IV magnesium, IV doxycycline, IV methylprednisolone. Initial workup reviewed by me, no significant leukocytosis, compensated acid-base status. CMP resulted after transfer of care to the oncoming physician, Dr. Hayden. CT imaging pending at time of transfer of care as well as repeat evaluation. <Royer Hayden MD - Last Filed: 03/27/24 16:52> Vital Signs: 03/27/24 13:49 03/27/24 14:31 03/27/24 15:00 Temperature 97.9 F Temperature Source Oral Pulse Rate 87 93 H Pulse Rate [Left] 89 Respiratory Rate 20 Blood Pressure 139/68 133/57 L Blood Pressure [Right Arm] 184/95 H Blood Pressure Mean [Right Arm] 124 Blood Pressure Source [Right Arm] Automatic Cuff Blood Pressure Position [Right Arm] Sitting 02 Sat by Pulse Oximetry 95 97 89 L Oxygen Delivery Method Room Air Nasal Cannula Nasal Cannula Oxygen Flow Rate (LPM) 2 03/27/24 16:15 03/27/24 16:30 Temperature Temperature Source Pulse Rate 91 H 90 Pulse Rate [Left] Respiratory Rate Blood Pressure 141/62 H 159/71 H Blood Pressure [Right Arm] Blood Pressure Mean [Right Arm] Blood Pressure Source [Right Arm] Blood Pressure Position [Right Arm] 02 Sat by Pulse Oximetry 99 97 Oxygen Delivery Method Nasal Cannula Oxygen Flow Rate (LPM) Lab Data Lab Results 03/27/24 13:55: SARS-CoV-2 (PCR) Not detected, Influenza A Untype (PCR) Not detected, Influenza Type B (PCR) Not detected 03/27/24 14:17: WBC 6.3, RBC 3.97 L, Hgb 12.3, Hct 38.7, MCV 97.5, MCH 31.0, MCHC 31.8, RDW 13.8, Plt Count 271, MPV 10.1, Neut % (Auto) 61.0, Lymph % (Auto) 19.4, Thurston % (Auto) 15.2 H, Eos % (Auto) 2.9, Baso % (Auto) 0.5, Neut # (Auto) 3.8, Lymph # (Auto) 1.2, Thurston # (Auto) 1.0, Eos # (Auto) 0.2, Baso # (Auto) 0.0, Sodium Cancelled, Potassium Cancelled, Chloride Cancelled, Carbon Dioxide Cancelled, Anion Gap Cancelled, BUN Cancelled, Creatinine Cancelled, Estimated Creat Clear Cancelled, Estimated GFR Cancelled, Est GFR ( Amer) Cancelled, Glucose Cancelled, Calcium Cancelled, Total Bilirubin Cancelled, AST Cancelled, ALT Cancelled, Alkaline Phosphatase Cancelled, Troponin I 0.02, N T-Pro-B Natriuret Pep 7640 H, Total Protein Cancelled, Albumin Cancelled, Globulin Cancelled, Albumin/Globulin Ratio Cancelled, Lipase 27 03/27/24 14:23: VBG pH 7.40, VBG pCO2 38.3, VBG pO2 50.8 H, VBG HCO3 23.0, VBG Total CO2 24.2, VBG O2 Saturation 90.8 H, VBG Base Excess -1.8, VBG Lactic Acid 1.9 03/27/24 15:57: Sodium 139, Potassium 4.6, Chloride 104, Carbon Dioxide 26, Anion Gap 13.6, BUN 29 H, Creatinine 0.90, Estimated Creat Clear 56, Estimated GFR 61, Est GFR ( Amer) 74, Glucose 118 H, Calcium 9.5, Total Bilirubin 0.4, AST 33, ALT 19, Alkaline Phosphatase 93, Total Protein 7.0, Albumin 4.0, Globulin 3.0, Albumin/Globulin Ratio 1.3 Orders (Tests/Meds): ED MEDICATIONS Generic Name Dose Route Start Last Admin Trade Name Freq PRN Reason Stop Dose Admin Ceftriaxone Sodium 2 gm/ 100 mls @ 200 mls/hr 03/27/24 16:30 03/27/24 16:48 Sodium Chloride IV 03/27/24 16:59 200 mls/hr ONCE ONE Administration Discontinued Medications Generic Name Dose Route Start Last Admin Trade Name Freq PRN Reason Stop Dose Admin Albuterol/Ipratropium 9 ml 03/27/24 13:44 03/27/24 14:29 Ipratropium/Albuterol 3 Ml Neb IH 03/27/24 13:45 9 ml ONCE ONE Administration Furosemide 60 mg 03/27/24 15:26 03/27/24 16:36 Furosemide 20 Mg/2 Ml Vial IV 03/27/24 15:27 60 mg ONCE ONE Administration Doxycycline Hyclate 100 mg/ 250 mls @ 166.667 mls/hr 03/27/24 13:44 03/27/24 16:00 Sodium Chloride IV 03/27/24 13:45 166.667 mls/hr ONCE ONE Administration Magnesium Sulfate 2 gm in 50 mls @ 50 mls/hr 03/27/24 13:56 03/27/24 16:09 Magnesium Sulfate 2gm/50ml Premix IV 03/27/24 14:55 50 mls/hr ONCE ONE Administration Iopamidol 70 ml 03/27/24 16:05 03/27/24 16:06 Iopamidol-370 (76%);100ml Bottle IV 03/27/24 16:06 70 ml ONCE ONE Administration Methylprednisolone Sodium Succinate 125 mg 03/27/24 13:44 03/27/24 16:00 Methylprednisolone Sod Succ 125mg Vial IV 03/27/24 13:45 125 mg ONCE ONE Administration Sodium Chloride 50 ml 03/27/24 16:05 03/27/24 16:05 0.9 % Sodium Chloride 50 Ml Vial IV 03/27/24 16:06 50 ml ONCE ONE Administration Sodium Chloride 10 ml 03/27/24 16:05 03/27/24 16:06 Sodium Chloride 0.9% 10ml Syr (Rad Only) IV 03/27/24 16:06 10 ml ONCE ONE Administration Sodium Zirconium Cyclosilicate 10 gm 03/27/24 15:27 03/27/24 15:59 Lokelma 5gm Packet PO 03/27/24 15:28 10 gm ONCE ONE Administration ORDERS Category Date Time Status CT angio chest PE protocol Stat Cat Scan 03/27/24 13:55 Completed XR chest portable Stat Exams 03/27/24 13:44 Completed BNP [NT Pro Brain Natriuretic Pep.] Stat Lab 03/27/24 14:17 Completed CBC w/Auto Diff [Complete Blood Count Auto Diff] Stat Lab 03/27/24 14:17 Completed CMP [Comprehensive Metabolic Panel] Stat Lab 03/27/24 15:57 Completed HIV Combo Stat Lab 03/27/24 14:17 Received Hep C Ab with Reflex to RNA Stat Lab 03/27/24 15:57 Received Lipase Stat Lab 03/27/24 14:17 Completed Rapid PCR Covid and Flu A/B Stat Lab 03/27/24 13:55 Completed Trop I [Troponin I] Stat Lab 03/27/24 14:17 Completed Troponin I Q3H Lab 03/27/24 16:45 Ordered Troponin I Q3H Lab 03/27/24 19:45 Ordered Blood Culture Stat Micro 03/27/24 14:17 Received VBG [Venous Blood Gas] Stat RT 03/27/24 14:23 Completed Medical Decision Narrative: In summary patient is 73-year-old female past medical history described above presents emergency department for evaluation of cough, shortness of breath. Patient is hemodynamically stable nontoxic-appearing upon arrival, afebrile, on 2 L nasal cannula which she intermittently requires at home however has not needed in the last year. Differential includes viral induced COPD exacerbation, pulmonary embolism, pneumonia, among others. Workup will be conducted with hematologic labs, chest x-ray, CT angio pulmonary embolism protocol, EKG, troponin. Initial inventions include DuoNebs x 3, IV magnesium, IV doxycycline, IV methylprednisolone. Initial workup reviewed by me, no significant leukocytosis, compensated acid-base status. CMP resulted after transfer of care to the oncoming physician, Dr. Hayden. CT imaging pending at time of transfer of care as well as repeat evaluation. Catracho: I assumed primary responsibility for this patient after signout from previous physician. On my evaluation, patient speaking full sentences, however she is dropping her oxygen saturations into the low 90s 80 to 85%. Patient's oxygen turned up. Lungs with bilateral expiratory wheezes, but she does have inspiratory wheezes anteriorly on the right side. No significant lower extremity edema, but she does have 1+ pitting. Patient difficult IV access, to ultrasound IVs were placed, 1 in left antecubital fossa 20-gauge and 1 in the right basilic vein 18-gauge due to very difficult IV access. This was done under ultrasound guidance and documented in procedure section. Labs independently interpreted. Patient has BNP elevation nearly 8000. Negative troponin. Chemistry nonactionable with normal CBC. Chest x-ray with concern for right middle versus right lower lobe consolidation. CT angiogram of the chest was performed and independently interpreted. Patient has a new right middle lobe pneumonia likely exacerbating patient's symptoms. Given 60 mg IV Lasix, 2 g Rocephin. PCP was consulted and case was discussed, patient to be admitted for acute hypoxemic respiratory failure in the setting of pneumonia and CHF exacerbation. Procedures <Royer Hayden MD - Last Filed: 03/27/24 16:52> Limited Ultrasound Indication:: Ultrasound-guided line placement Indication: -Difficult IV access, need for diuresis Identified structures: -Left upper extremity superficial and deep veins Location/access site: -Left antecubital fossa, 20-gauge Vessel patency: -Patent Direct visualization? -Yes Impression: Successful placement left upper extremity IV Images were saved to permanent archive The study was technically adequate CPT Codes: Venipuncture: 71645-02 Age <3 yo: 49062-77 Age >3yo: 38693-55 Central line <5 yo: 88540-97 Central line >5 yo: 25155-51 This study was performed by me, and I personally interpreted all images/videos. Based on my clinical judgement, these images were adequate and did not necessitate further imaging Views:: Ultrasound-guided line placement Indication: -Difficult IV access, need for diuresis and antibiosis Identified structures: -Right upper extremity superficial and deep veins Location/access site: -Right basilic vein Vessel patency: -Patent Direct visualization? -Yes Impression: Successful placement 18-gauge catheter right upper extremity basilic vein Images were saved to permanent archive The study was technically adequate CPT Codes: Venipuncture: 17210-44 Age <3 yo: 94693-51 Age >3yo: 32944-27 Central line <5 yo: 58091-98 Central line >5 yo: 06259-10 This study was performed by me, and I personally interpreted all images/videos. Based on my clinical judgement, these images were adequate and did not necessitate further imaging Critical Care <Braden Beebe MD - Last Filed: 03/27/24 15:27> Critical Care Time Critical Care Time: Yes Attestation: On 03/27/24, the high probability of a clinically significant, sudden or life threatening deterioration of the following system(s) required my full and direct attention, intervention and personal management. The time I documented below is in addition to time spent performing reported procedures but includes the following listed in this critical care notation. Total Time Total Critical Care Time: 35 <Royer Hayden MD - Last Filed: 03/27/24 16:52> Critical Care Time Critical Care Time: Yes (cardiac, pulmonary) Total Time Total Critical Care Time: 60
--- NOTE | 2024-03-27 13:55 | CT_ITS ---
PROCEDURE INFORMATION: Exam: CTA Chest With Contrast Exam date and time: 03/27/2024 4:04 PM Age: 73 years old Clinical indication: Other: Wheezing, L chest pain, endobronchial mass reporte TECHNIQUE: Imaging protocol: Computed tomographic angiography of the chest with contrast. Exam focused on the arteries. 3D rendering (Not supervised by radiologist): MIP and/or 3D reconstructed images were created by the technologist. Radiation optimization: All CT scans at this facility use at least one of these dose optimization techniques: automated exposure control; mA and/or kV adjustment per patient size (includes targeted exams where dose is matched to clinical indication); or iterative reconstruction. Contrast material: ISO 370; Contrast volume: 70 ml; Contrast route: INTRAVENOUS (IV); COMPARISON: CT CHEST WO CON 12/08/2023 2:02 PM FINDINGS: Pulmonary arteries: No evidence of pulmonary embolus to the segmental level. Aorta: No aneurysm of the aorta. No dissection of the aorta. Lungs: Consolidation in the right middle lobe was not present on the prior study. This may represent pneumonia.. Pleural spaces: Unremarkable. No pneumothorax. No pleural effusion. Heart: There is calcification of the aortic valve annulus. There is calcification of the mitral valve annulus. Coronary arteries: Coronary artery calcifications may indicate coronary artery disease. Lymph nodes: Pathologic node anterior to the smiley 17 x 11 mm. Subcarinal adenopathy 16 x 13 mm. Bones/joints: [id number] in the left glenohumeral joint consistent with severe degenerative changes . Posterior cervical fusion Soft tissues: Unremarkable. IMPRESSION: 1. No evidence of pulmonary embolus to the segmental level. 2. No aneurysm of the aorta. 3. No dissection of the aorta. 4. Consolidation in the right middle lobe was not present on the prior study. This may represent pneumonia.. 5. Pathologic node anterior to the smiley 17 x 11 mm. Subcarinal adenopathy 16 x 13 mm.
[2024-03-27 14:05] LABS: Coronavirus 19, PCR Not Detected (NotDetected); Influenza A, PCR Not Detected (NotDetected); Influenza B, PCR Not Detected (NotDetected)
--- NOTE | 2024-03-27 14:16 | PC.NURSE ---
lab called with a critical on pt i let them know nurse was available at this time to take it, i stated i could have them call back or take the critical. lab stated it was fine for me to take it which was potassium at 6.4 i relayed the information to
[2024-03-27 14:26] LABS: Lactate Venous 1.9 mmol/L (0.4-2.0); VBG Base Excess -1.8 mmol/L (-2.4-2.3); VBG Oxygen Saturation 90.8 % (50-70); VBG PCO2 38.3 mmol/L (35-51); VBG PO2 50.8 mmol/L (28-40); VBG Total CO2 24.2 mmol/L (23-27)
[2024-03-27] MEDS: IPRATROPIUM/ALBUTEROL 3 ML NEB 9 ML IH (14:29)
--- NOTE | 2024-03-27 14:30 | PC.NURSE ---
attempted multiple times to obtain IV access. not successful at this time. awaiting us nurse to place IV guided
[2024-03-27 14:32] LABS: Basophils % 0.5 % (0.1-2.0); Eosinophils # 0.2 K/mm3 (0.0-0.4); Eosinophils % 2.9 % (0.1-12.0); Hematocrit 38.7 % (37.0-47.0); Hemoglobin 12.3 g/dL (12.2-16.2); Lymphocytes # 1.2 K/mm3 (0.7-4.5); Lymphocytes % 19.4 % (10-50); Mean Corpuscular HGB Conc 31.8 g/dL (31.8-35.4); Mean Corpuscular Volume 97.5 fl (81-99); Mean Platelet Volume 10.1 fl (7.4-10.4); Monocytes % 15.2 % (1.7-9.3); Neutrophils # 3.8 K/mm3 (1.8-7.8); Platelet Count 271 K/mm3 (142-424); Red Blood Count 3.97 M/mm3 (4.20-5.40); Red Cell Distribution Width 13.8 % (11.5-17.5); White Blood Count 6.3 K/mm3 (4.8-10.8)
[2024-03-27 14:37] LABS: Lipase 27 U/L (23-300)
[2024-03-27 14:48] LABS: NT Pro Brain Natriuretic Pep. 7640 pg/mL (0-125)
[2024-03-27 14:50] LABS: Troponin I 0.02 ng/ml (0.00-0.034)
--- NOTE | 2024-03-27 15:24 | PC.NURSE ---
Requested an IV US by
--- NOTE | 2024-03-27 15:30 | PC.NURSE ---
Including myself 3 nurses have attempted IV insertion and 2 nurses have attempted US IV insertion. without any success leading to a delay in medication administration.
--- NOTE | 2024-03-27 15:41 | PC.NURSE ---
bedside attempting IV US
[2024-03-27] MEDS: LOKELMA 5GM PACKET 10 GM PO (15:59)
[2024-03-27] MEDS: METHYLPREDNISOLONE SOD SUCC 125MG VIAL 125 MG IV (16:00)
[2024-03-27] MEDS: DOXYCYCLINE HYCLATE 100 MG in 0.9 % SODIUM CHLORIDE 250 ML 166.667 MG IV (16:00)
--- NOTE | 2024-03-27 16:00 | PC.NURSE ---
pt gone to ct
[2024-03-27] MEDS: 0.9 % SODIUM CHLORIDE 50 ML VIAL IV (16:05)
[2024-03-27] MEDS: IOPAMIDOL-370 (76%);100ML BOTTLE 70 ML IV (16:06)
[2024-03-27] MEDS: SODIUM CHLORIDE 0.9% 10ML SYR (RAD ONLY) 10 ML IV (16:06)
[2024-03-27] MEDS: MAGNESIUM SULFATE IN WATER 2 GM/50 ML PIGGYBACK IV (16:09)
[2024-03-27 16:14] LABS: Chloride 104 mmol/L (98-107); Potassium 4.6 mmoL/L (3.5-5.1); Sodium 139 mmol/L (136-145)
[2024-03-27 16:17] LABS: Alanine Aminotransferase 19 U/L (12-78); Albumin/Globulin Ratio 1.3 (1.1-1.8); Alkaline Phosphatase 93 U/L (38-126); Anion Gap 13.6 mEq/L (5-15); Aspartate Amino Transferase 33 U/L (14-36); Bilirubin,Total 0.4 mg/dl (0.2-1.3); Blood Urea Nitrogen 29 mg/dl (7-17); Calcium 9.5 mg/dl (8.4-10.2); Carbon Dioxide 26 mmol/L (22.0-30.0); Creatinine Clearance Estimated 56 mL/min (50-200); Estimated Glomerular Filt Rate 61 ml/min (>60); GFR (African American) 74 ML/MIN (>60); Glucose 118 mg/dl (74-100)
[2024-03-27] MEDS: FUROSEMIDE 20 MG/2 ML VIAL 60 MG IV (16:36)
[2024-03-27] MEDS: CEFTRIAXONE SODIUM 2 GM in 0.9 % SODIUM CHLORIDE 100 ML IV (16:48)
--- NOTE | 2024-03-27 16:50 | PC.NURSE ---
Addendum entered by Fransico Wheeler RN 03/27/24 16:54: MD ON PHONE WITH HOSPITALIST Original Note: MD ON PHONE WITH HOSPITALIST
[2024-03-27 16:53] LABS: HIV Combo NEGATIVE (Negative)
--- NOTE | 2024-03-27 17:15 | PC.NURSE ---
report called to yina on second floor
--- NOTE | 2024-03-27 17:39 | PC.NURSE ---
arrived by stretcher from ED
--- NOTE | 2024-03-27 19:34 | PC.NURSE ---
pt states she did not take morning meds. home meds locked in director of nuclear medicine room and gabapentin sent home with son rm
[2024-03-27] MEDS: IPRATROPIUM/ALBUTEROL 3 ML NEB IH (23:48)
[2024-03-28] VITALS (9 sets, daily range): BP systolic 115–164; BP diastolic 48–87; PULSE 66–98; RESP 18–20; TEMP 36.4–36.9; O2SAT 96–100; BMI 29.2; BMI 29.1
--- NOTE | 2024-03-28 03:51 | INFXCTL.NOTE ---
Pt. is alert and orientated x 4. Pt. is on 2 liters [place] oxygen. Pt. c/o some difficulty breathing. Lung sounds with inspiratory/expiratory wheezes.Dr. García contacted to request NEB treatments. Post neb treatment slight exp. wheeze noted. Pt. breathing much easier. Pt. able to sleep ok. Pt. has tremors to bilateral arms. states it is her basline. VSS. Personal items and call bhardwaj in reach.
--- NOTE | 2024-03-28 03:56 | PC.NURSE ---
Pt. is alert and orientated x 4. Pt has [address] Pt. was admitted with pneumonia. Pt. c/o some sob. Lung sounds with inspiratory/expiratory wheezes. Dr. García contacted to request NEB treatments for wheezing. RT administered NEB treatment and pt. states she feels a little better. Pt. has tremors to both arms this is baseline for her. Pt. sleeping well this shift. VSS . Personal items and call bhardwaj in reach.
[2024-03-28] MEDS: IPRATROPIUM/ALBUTEROL 3 ML NEB IH ×3 (06:08→18:28)
[2024-03-28 08:17] LABS: Basophils % 0.1 % (0.1-2.0); Hematocrit 35.2 % (37.0-47.0); Hemoglobin 11.4 g/dL (12.2-16.2); Lymphocytes # 0.7 K/mm3 (0.7-4.5); Lymphocytes % 10.5 % (10-50); Mean Corpuscular HGB Conc 32.4 g/dL (31.8-35.4); Mean Corpuscular Hemoglobin 30.9 pg (27.0-31.2); Mean Corpuscular Volume 95.4 fl (81-99); Mean Platelet Volume 9.7 fl (7.4-10.4); Monocytes # 0.6 K/mm3 (0.1-1.0); Monocytes % 8.4 % (1.7-9.3); Neutrophils # 5.4 K/mm3 (1.8-7.8); Neutrophils % 80.6 % (37.0-80.0); Platelet Count 275 K/mm3 (142-424); Red Blood Count 3.69 M/mm3 (4.20-5.40); Red Cell Distribution Width 13.5 % (11.5-17.5); White Blood Count 6.8 K/mm3 (4.8-10.8)
[2024-03-28 08:33] LABS: Chloride 98 mmol/L (98-107); Potassium 4.1 mmoL/L (3.5-5.1); Sodium 136 mmol/L (136-145)
[2024-03-28 08:36] LABS: Anion Gap 15.1 mEq/L (5-15); Blood Urea Nitrogen 35 mg/dl (7-17); Carbon Dioxide 27 mmol/L (22.0-30.0); Creatinine Clearance Estimated 50 mL/min (50-200); Estimated Glomerular Filt Rate 49 ml/min (>60); GFR (African American) 59 ML/MIN (>60)
[2024-03-28 08:37] LABS: Calcium 9.2 mg/dl (8.4-10.2); Glucose 161 mg/dl (74-100)
[2024-03-28] MEDS: ACETAMINOPHEN 325MG TAB 650 MG PO ×2 (09:00→21:58)
[2024-03-28] MEDS: GABAPENTIN 100MG CAPSULE 100 MG PO ×2 (09:02→21:55)
[2024-03-28] MEDS: BISOPROLOL 5MG TABLET 10 MG PO (09:02)
[2024-03-28] MEDS: CLOPIDOGREL 75MG TAB 75 MG PO (09:02)
[2024-03-28] MEDS: SULFA/TRIMETHOPRIM 1 TABLET 1 EACH PO ×2 (09:02→21:55)
[2024-03-28] MEDS: CEFTRIAXONE SODIUM 1 GM in 0.9 % SODIUM CHLORIDE 50 ML IV (09:03)
[2024-03-28] MEDS: FERROUS SULFATE 325MG TABLET 325 MG PO ×2 (09:03→21:55)
[2024-03-28] MEDS: LEVOTHYROXINE 75MCG (0.075MG) TAB 75 MCG PO (09:03)
[2024-03-28] MEDS: PRIMIDONE 50MG TABLET 100 MG PO ×2 (09:03→21:55)
[2024-03-28 09:07] LABS: Thyroid Stimulating Hormone 0.15 uIU/mL (0.465-4.68)
[2024-03-28 09:16] LABS: Hemoglobin A1C 6.3 % (4.0-6.0)
--- NOTE | 2024-03-28 10:13 | EXP.HP ---
History of Present Illness *Admission Date: 03/27/24 *Reason for visit:: SOA *History of present illness: The patient is 73-year-old female presented in the [facility] emergency department for evaluation of cough, shortness of breath starting on the evening of 03/26. She on arrival was afebrile, and on 2 L nasal cannula which she intermittently requires at home, however has not needed in the last year, she states. Workup included hematologic labs, chest x-ray, CT angio pulmonary embolism protocol, EKG, troponin. Initial inventions included DuoNebs x 3, IV magnesium, IV doxycycline, and IV methylprednisolone. Initial workup revealed no significant leukocytosis. She wasspeaking in full sentences, however she was dropping her oxygen saturations into the low 90s 80 to 85%. She had bilateral expiratory wheezes, with inspiratory wheezes anteriorly on the right side. She had no significant lower extremity edema , but slight pitting. BNP was elevated at nearly 8000. Negative troponin. Chest x-ray with suggested right middle versus right lower lobe consolidation. CT angiogram of the chest was performed and independently interpreted. Patient has a new right middle lobe pneumonia likely exacerbating patient's symptoms. In the ER she was given 60 mg IV Lasix, 2 g Rocephin. She was admitted for acute hypoxemic respiratory failure in the setting of pneumonia and CHF exacerbation. She had pneumonia in July of 2023 with sputum culture showing E. coli, Staph aureus, and Staph epidermidis. She is followed by [facility]. [facility] Disclaimer: The information contained in this section may have been updated after the patient was seen, as this information can be updated by other users. Medical History Severe mitral regurgitation Abnormal echocardiogram Abnormal nuclear cardiac imaging test Fungal infection Mediastinal lymphadenopathy Hilar lymphadenopathy Endobronchial mass Cervical lymphadenopathy On amiodarone therapy Sleep apnea (HFpEF) heart failure with preserved ejection fraction PAF (paroxysmal atrial fibrillation) Coronary artery disease Mitral regurgitation Anemia Edema of lower extremity Chronic respiratory failure with hypoxia PSG 06/08/2023 at [facility] did not show significant RANDY. Hypoxemia but did not qualify for O2 supplementation during the test. She is already on oxygen at night and as needed during daytime. Other encephalopathy Fluctuating mental status Encephalopathy Recurrent encephalopathy, confusion in the setting of UTI or exacerbation COPD with symptomatic hypoxemia. Numbness and tingling of upper and lower extremities of both sides Diffuse pain Transaminitis Skin tear of right lower leg without complication Transaminitis DIANELYS (acute kidney injury) Incurvated nail 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 Constipation Elevated liver enzymes Hypokalemia Wheeze Onychodystrophy History of smoking 30 or more pack years Stage 3a chronic kidney disease (CKD) GI bleed Pneumonia Exposure to TB Multiple lung nodules on CT Encounter for screening for malignant neoplasm of lung in current smoker with 30 pack year history or greater Smoking greater than 30 pack years Asthma-chronic obstructive pulmonary disease overlap syndrome COPD mixed type O2 at night Atrial fibrillation with rapid ventricular response Acute respiratory failure with hypoxia Pneumonia Pneumonia due to COVID-19 virus Kidney disease Rheumatic fever/heart disease Arthritis Diabetes mellitus, type 2 Sepsis Obesity (BMI 30.0-34.9) Non-STEMI (non-ST elevated myocardial infarction) Multifocal atrial tachycardia Hypertension Hyperlipidemia COPD (chronic obstructive pulmonary disease) Tobacco use Ileus, unspecified SIRS (systemic inflammatory response syndrome) Sepsis Gastroenteritis Right lower lobe pneumonia Pincer nail deformity Type 2 diabetes mellitus with diabetic neuropathy, without long-term current use of insulin Bilateral lower extremity edema Diabetic foot Keratosis Onychogryphosis Pre-ulcerative calluses Surgical History History of neck surgery Hx of removal of ovary History of cholecystectomy History of hip surgery History of coronary artery stent placement Family History Other Coronary artery disease Diabetes Hypertension Social History Smoking Status: Former smoker tobacco type: cigarettes packs per day: 1 years smoked: 50 smoking status stop date: 2 years ago second hand exposure: Yes alcohol intake: never substance use type: denies use current occupational status: retired Travel in the last 8 weeks: None household members: none housing: apartment lives independently: Yes marital status: current occupational exposures/hazards: No caffeine: Yes Have you lived/traveled outside [place] in past 30 days?: No Contact w/someone who lives/traveled outside US past 30 days?: No Exposure to someone with infectious disease in past 14 days?: No Do you have a fever (greater than 100.4 F or 38 C)?: No Have you tested positive for COVID-19: No Exposed to someone with COVID-19 in past 14 days?: No Do you have a sore throat?: No Do you have a cough?: No Do you have any weakness?: No Do you have any diarrhea?: No Are you experiencing any unusual bleeding?: No Do you have any muscle aches/pain?: No Do you have any abdominal pain?: No Are you experiencing loss of taste or smell?: No Other Medical History Have you received the Flu Vaccine for this season: Yes Have you received the Pneumonia Vaccine: Yes Review of Systems Review of Systems Review of systems:: pertinent systems reviewed and negative unless documented below Constitutional Constitutional: Reports as per HPI, Denies anorexia, Denies body ache(s), Denies chills, Denies fever(s) and Denies weight gain Eyes Eyes: Reports system reviewed and no additional complaints, except as documented ENT Ears, Nose, Mouth, and Throat: Reports system reviewed and no additional complaints, except as documented *Cardiovascular Cardiovascular: Denies chest pain, Denies chest pain at rest, Denies chest pain with activity, Reports dyspnea, Reports dyspnea on exertion, Denies edema and Denies irregular heart rhythm *Respiratory Respiratory: Reports dyspnea and Reports dyspnea on exertion *Gastrointestinal Gastrointestinal: Reports system reviewed and no additional complaints, except as documented and Denies change in bowel habits *Genitourinary Genitourinary: Reports system reviewed and no additional complaints, except as documented and Denies difficulty voiding *Musculoskeletal Musculoskeletal: Reports system reviewed and no additional complaints, except as documented Integumentary/Breasts Skin/Breast: Reports system reviewed and no additional complaints, except as documented *Neurologic Neurologic: Reports tremor(s) (continues. Takes Primidone) Psychiatric Psychiatric: Reports system reviewed and no additional complaints, except as documented Endocrine Endocrine: Reports system reviewed and no additional complaints, except as documented Hematologic/Lymphatic Hematologic/Lymphatic: Reports system reviewed and no additional complaints, except as documented Allergic/Immunologic Allergic/Immunologic: Reports system reviewed and no additional complaints, except as documented Meds Home Medications and Allergies Home Medications ?Medication ?Instructions ?Recorded ?Confirmed ?Type ferrous sulfate 325 mg (65 mg 325 mg PO BID 05/15/22 03/27/24 History iron) tablet (Feosol) sennosides 8.6 mg tablet (senna) 8.6 mg PO DAILY 05/15/22 03/27/24 History primidone 50 mg tablet 100 mg PO HS 05/19/23 03/27/24 History magnesium oxide 400 mg (241.3 mg 400 mg PO DAILY 08/09/23 03/27/24 History magnesium) tablet gabapentin 100 mg capsule 100 mg PO BID 08/10/23 03/27/24 History mometasone-formoterol HFA 200 2 puff inhalation BID 90 days #13 09/02/23 03/27/24 Rx mcg-5 mcg/actuation aerosol grams inhaler (Dulera) levothyroxine 75 mcg tablet 75 mcg PO DAILY 09/28/23 03/27/24 History albuterol sulfate 90 mcg/actuation 2 puff inhalation Q4-6H PRN 10/21/23 03/27/24 History aerosol inhaler Shortness Of Breath bisoprolol fumarate 5 mg tablet 10 mg PO DAILY 01/18/24 03/27/24 History clopidogrel 75 mg tablet 75 mg PO DAILY 01/18/24 03/27/24 History fluticasone propionate 50 1 spray intranasal DAILY PRN 01/18/24 03/27/24 History mcg/actuation nasal allergies spray,suspension furosemide 20 mg tablet 20 mg PO SUWE 03/27/24 03/28/24 History New Prescriptions to Start Prescriptions: Allergies Allergy/AdvReac Type Severity Reaction Status Date / Time alendronate sodium (From Allergy Intermediate Dizziness Verified 02/10/24 10:48 Fosamax) isosorbide Allergy Unknown Verified 02/10/24 10:48 allergy reaction atorvastatin (From Lipitor) AdvReac Intermediate Weakness Verified 02/10/24 10:48 tuberculin,PPD,multi-puncture AdvReac Mild POSITIVE Verified 02/10/24 10:48 REACTOR Exam Data for Last 24 hours Vital signs and Labs for Last 24 Hours: Temp Pulse Resp BP Pulse Ox O2 Del Method O2 Flow Rate 97.6 F 76 20 142/51 H 97 Nasal Cannula 4 03/28/24 08:00 03/28/24 08:00 03/28/24 08:00 03/28/24 08:00 03/28/24 08:00 03/28/24 08:00 03/28/24 08:00 Laboratory Results - last 24 hr 03/27/24 13:55: SARS-CoV-2 (PCR) Not detected, Influenza A Untype (PCR) Not detected, Influenza Type B (PCR) Not detected 03/27/24 14:17: WBC 6.3, RBC 3.97 L, Hgb 12.3, Hct 38.7, MCV 97.5, MCH 31.0, MCHC 31.8, RDW 13.8, Plt Count 271, MPV 10.1, Neut % (Auto) 61.0, Lymph % (Auto) 19.4, [place] % (Auto) 15.2 H, Eos % (Auto) 2.9, Baso % (Auto) 0.5, Neut # (Auto) 3.8, Lymph # (Auto) 1.2, [place] # (Auto) 1.0, Eos # (Auto) 0.2, Baso # (Auto) 0.0, Sodium Cancelled, Potassium Cancelled, Chloride Cancelled, Carbon Dioxide Cancelled, Anion Gap Cancelled, BUN Cancelled, Creatinine Cancelled, Estimated Creat Clear Cancelled, Estimated GFR Cancelled, Est GFR ( Amer) Cancelled, Glucose Cancelled, Calcium Cancelled, Total Bilirubin Cancelled, AST Cancelled, ALT Cancelled, Alkaline Phosphatase Cancelled, Troponin I 0.02, NT-Pro-B Natriuret Pep 7640 H, Total Protein Cancelled, Albumin Cancelled, Globulin Cancelled, Albumin/Globulin Ratio Cancelled, Lipase 27, HIV Ag/Ab Combo Qual Negative 03/27/24 14:23: VBG pH 7.40, VBG pCO2 38.3, VBG pO2 50.8 H, VBG HCO3 23.0, VBG Total CO2 24.2, VBG O2 Saturation 90.8 H, VBG Base Excess -1.8, VBG Lactic Acid 1.9 03/27/24 15:57: Sodium 139, Potassium 4.6, Chloride 104, Carbon Dioxide 26, Anion Gap 13.6, BUN 29 H, Creatinine 0.90, Estimated Creat Clear 56, Estimated GFR 61, Est GFR ( Amer) 74, Glucose 118 H, Calcium 9.5, Total Bilirubin 0.4, AST 33, ALT 19, Alkaline Phosphatase 93, Total Protein 7.0, Albumin 4.0, Globulin 3.0, Albumin/Globulin Ratio 1.3 03/28/24 07:20: WBC 6.8, RBC 3.69 L, Hgb 11.4 L, Hct 35.2 L, MCV 95.4, MCH 30.9, MCHC 32.4, RDW 13.5, Plt Count 275, MPV 9.7, Neut % (Auto) 80.6 H, Lymph % (Auto) 10.5, [place] % (Auto) 8.4, Eos % (Auto) 0.0 L, Baso % (Auto) 0.1, Neut # (Auto) 5.4, Lymph # (Auto) 0.7, [place] # (Auto) 0.6, Eos # (Auto) 0.0, Baso # (Auto) 0.0, Sodium 136, Potassium 4.1, Chloride 98, Carbon Dioxide 27, Anion Gap 15.1 H, BUN 35 H, Creatinine 1.10 H D, Estimated Creat Clear 50, Estimated GFR 49 L, Est GFR ( Amer) 59 D, Glucose 161 H D, Hemoglobin A1c 6.3 H, Calcium 9.2, TSH 0.15 L I & O for Last 24 hours: Intake & Output 03/25/24 03/26/24 03/27/24 03/28/24 11:59 11:59 11:59 11:59 Output Total 700 / 700 Balance -700 / -700 Weight 154 lb 12.267 oz Constitutional Constitutional: no acute distress and cooperative *Routine HEENT Exam Head: Present normocephalic Eye: Present PERRL ENT: Present mucous membranes moist *Routine Neck Exam Neck: Present full ROM; Absent JVD or carotid bruit Routine Chest/Breast/Axilla Exam Chest wall: Absent tenderness *Routine Respiratory Exam Respiratory: Present rhonchi (on the right); Absent respiratory distress *Routine Cardiovascular Exam Cardiovascular: Present RRR and murmur *Routine Abdominal Exam Abdominal: Present soft; Absent tenderness or mass *Routine Rectal Exam Rectal:: deferred *Routine Genitalia Exam Genitalia:: deferred *Routine Extremities Exam Extremities: Absent edema Routine Back/Spine/Pelvis Exam Back/Spine: Present kyphosis *Routine Skin Exam Skin: Present intact *Routine Neurological Exam Neurological: Present alert, oriented X3 and tremors Routine Psychiatric Exam Psychiatric: Present normal affect and normal thought process Assessment and Plan *Assessment and plan (1) Right middle lobe pneumonia: Status: Acute Category: Medical Code(s): J18.9 - Pneumonia, unspecified organism (2) CHF exacerbation: Status: Acute Category: Medical Code(s): I50.9 - Heart failure, unspecified (3) Acute hypoxemic respiratory failure: Status: Acute Category: Medical Code(s): J96.01 - Acute respiratory failure with hypoxia (4) Severe mitral regurgitation: Status: Chronic Category: Medical Code(s): I34.0 - Nonrheumatic mitral (valve) insufficiency (5) Anemia: Status: Acute Qualifiers: Anemia type: unspecified type Qualified Code(s): D64.9 - Anemia, unspecified Category: Medical Code(s): D64.9 - Anemia, unspecified (6) Cervical spinal stenosis: Problem Comment: Underwent cervical spine surgery at [facility] 11/2023 with resolution of neck pain and improvement of baseline tremor Status: Chronic Category: Medical Code(s): M48.02 - Spinal stenosis, cervical region (7) Tremor: Problem Comment: Most likely essential tremor. Significant improvement following cervical spine surgery. Currently on primidone 100 mg p.o. nightly by PCP Status: Chronic Category: Medical Code(s): R25.1 - Tremor, unspecified (8) Weakness: Status: Acute Category: Medical Code(s): R53.1 - Weakness (9) Debility: Status: Acute Category: Medical Code(s): R53.81 - Other malaise (10) Hypertension: Status: Chronic Qualifiers: Hypertension type: primary hypertension Qualified Code(s): I10 - Essential (primary) hypertension Category: Medical Code(s): I10 - Essential (primary) hypertension (11) COPD (chronic obstructive pulmonary disease): Status: Chronic Category: Medical Code(s): J44.9 - Chronic obstructive pulmonary disease, unspecified (12) Type 2 diabetes mellitus with diabetic neuropathy, without long-term current use of insulin: Status: Chronic Category: Medical Code(s): E11.40 - Type 2 diabetes mellitus with diabetic neuropathy, unspecified Plan See orders. Continue Ceftriaxone. Bactrim DS p.o. ordered in recognition of previous microbiology. Incentive spirometry.
--- NOTE | 2024-03-28 18:05 | PC.NURSE ---
aox4, [facility] for o2 support. sat up to chair for meals. medicated with prn tylenol for headache
[2024-03-28] MEDS: SODIUM CHLORIDE 3% 15ML NEB 3 ML IH (18:28)
--- NOTE | 2024-03-28 19:07 | PC.NURSE ---
RESPIRATORY CARE NOTE: INDUCED SPUTUM. LEFT SPECIMEN CUP IN ROOM.
[2024-03-29] VITALS (9 sets, daily range): BP systolic 119–159; BP diastolic 60–92; PULSE 75–90; RESP 16–22; TEMP 36.4–36.8; O2SAT 94–100; BMI 28.8
[2024-03-29] MEDS: IPRATROPIUM/ALBUTEROL 3 ML NEB IH ×4 (00:13→17:59)
--- NOTE | 2024-03-29 06:49 | PC.NURSE ---
Pt. is alert and orientated x 4. Pt. on 2 liters of O2 per NC.Pt. gets winded and more tachypenic with ovement. Pt. up to hair for a while and than back to be. Continues with inspir/exp. wheezes Getting Neb treatments. Pt. slept well. VSS Personal items and call bhardwaj in reach.
--- NOTE | 2024-03-29 08:16 | EXP.ACUTE.PN ---
Subjective *Date: 03/29/24 *Time: 08:30 Interval history: Awaken for visit. Patient states she is short of breath with any exertion. She does have a cough. She was able to sleep last night. She has been eating without issues. She sat up in a chair yesterday without problems. Medical Exam Vital signs and Labs for Last 24 Hours: Vital Signs Temp Pulse Pulse Resp BP Pulse Ox O2 Del Method 03/29/24 06:48 82 03/29/24 06:48 88 03/29/24 06:48 94 L Nasal Cannula 03/29/24 05:00 Nasal Cannula 03/29/24 04:12 97.5 F L 81 18 159/92 H 100 Nasal Cannula 03/29/24 03:00 Nasal Cannula 03/29/24 01:00 Room Air 03/29/24 00:14 75 03/29/24 00:14 78 03/29/24 00:00 98.1 F 79 19 119/60 98 Nasal Cannula 03/28/24 23:00 Nasal Cannula 03/28/24 21:00 Room Air 03/28/24 20:00 Nasal Cannula 03/28/24 20:00 98.4 F 98 H 18 164/87 H 100 Nasal Cannula 03/28/24 18:32 86 20 03/28/24 18:32 88 03/28/24 18:32 86 03/28/24 18:32 98 Nasal Cannula 03/28/24 18:14 Nasal Cannula 03/28/24 17:00 Nasal Cannula 03/28/24 16:00 98.1 F 84 20 116/48 L 98 Nasal Cannula 03/28/24 15:00 Nasal Cannula 03/28/24 13:00 Nasal Cannula 03/28/24 12:52 86 03/28/24 12:52 88 03/28/24 12:00 97.6 F 66 20 124/49 L 99 Nasal Cannula 03/28/24 11:00 Nasal Cannula 03/28/24 09:00 Nasal Cannula O2 Flow Rate 03/29/24 06:48 03/29/24 06:48 03/29/24 06:48 4 03/29/24 05:00 2 03/29/24 04:12 4 03/29/24 03:00 2 03/29/24 01:00 03/29/24 00:14 03/29/24 00:14 03/29/24 00:00 3 03/28/24 23:00 2 03/28/24 21:00 03/28/24 20:00 2 03/28/24 20:00 4 03/28/24 18:32 03/28/24 18:32 03/28/24 18:32 03/28/24 18:32 4 03/28/24 18:14 2 03/28/24 17:00 2 03/28/24 16:00 2 03/28/24 15:00 4 03/28/24 13:00 4 03/28/24 12:52 03/28/24 12:52 03/28/24 12:00 4 03/28/24 11:00 4 03/28/24 09:00 4 Intake and Output 03/28/24 03/29/24 03/29/24 19:59 03:59 11:59 Intake Total 600 / 600 Output Total 700 / 700 Balance 600 / 600 -700 / -100 Intake: Intake, Oral Amount 600 / 600 Output: Output, Urine Amount 700 / 700 Other: Weight 154 lb 5.177 oz 152 lb 8.958 oz Patient Weight 03/29/24 11:59 Weight 152 lb 8.958 oz Laboratory Results - last 24 hr 03/28/24 07:20: WBC 6.8, RBC 3.69 L, Hgb 11.4 L, Hct 35.2 L, MCV 95.4, MCH 30.9, MCHC 32.4, RDW 13.5, Plt Count 275, MPV 9.7, Neut % (Auto) 80.6 H, Lymph % (Auto) 10.5, [place] % (Auto) 8.4, Eos % (Auto) 0.0 L, Baso % (Auto) 0.1, Neut # (Auto) 5.4, Lymph # (Auto) 0.7, [place] # (Auto) 0.6, Eos # (Auto) 0.0, Baso # (Auto) 0.0, Sodium 136, Potassium 4.1, Chloride 98, Carbon Dioxide 27, Anion Gap 15.1 H, BUN 35 H, Creatinine 1.10 H D, Estimated Creat Clear 50, Estimated GFR 49 L, Est GFR ( Amer) 59 D, Glucose 161 H D, Hemoglobin A1c 6.3 H, Calcium 9.2, TSH 0.15 L I & O for Labs for Last 24 Hours: Intake & Output 03/26/24 03/27/24 03/28/24 03/29/24 11:59 11:59 11:59 11:59 Intake Total 600 / 600 Output Total 700 / 700 700 / 700 Balance -700 / -700 -100 / -100 Weight 154 lb 12.267 oz 152 lb 8.958 oz Microbiology Reports for the Last 24 Hours: Microbiology 03/27/24 14:17 Blood Blood Culture - Preliminary NO GROWTH AFTER 24 HOURS 03/27/24 14:12 Blood Blood Culture - Preliminary NO GROWTH AFTER 24 HOURS Constitutional: Present no acute distress Comment:: Appears comfortable. Awaken for assessment. Respiratory: Present CTA bilaterally (Anteriorly and posteriorly) and diminished air movement (Posteriorly) Cardiac: Present Reg Rate and Rhythm GI: Present soft and normal bowel sounds; Absent distention, tenderness or guarding Extremities: Absent tenderness, edema or calf tenderness Neuro: Present awake and oriented x 3 Assessment and Plan *Assessment and plan (1) Right middle lobe pneumonia: Status: Acute Category: Medical Code(s): J18.9 - Pneumonia, unspecified organism (2) CHF exacerbation: Status: Acute Category: Medical Code(s): I50.9 - Heart failure, unspecified (3) Acute hypoxemic respiratory failure: Status: Acute Category: Medical Code(s): J96.01 - Acute respiratory failure with hypoxia (4) Severe mitral regurgitation: Status: Chronic Category: Medical Code(s): I34.0 - Nonrheumatic mitral (valve) insufficiency (5) Anemia: Status: Acute Qualifiers: Anemia type: unspecified type Qualified Code(s): D64.9 - Anemia, unspecified Category: Medical Code(s): D64.9 - Anemia, unspecified (6) Cervical spinal stenosis: Problem Comment: Underwent cervical spine surgery at [facility] 11/2023 with resolution of neck pain and improvement of baseline tremor Status: Chronic Category: Medical Code(s): M48.02 - Spinal stenosis, cervical region (7) Tremor: Problem Comment: Most likely essential tremor. Significant improvement following cervical spine surgery. Currently on primidone 100 mg p.o. nightly by PCP Status: Chronic Category: Medical Code(s): R25.1 - Tremor, unspecified (8) Weakness: Status: Acute Category: Medical Code(s): R53.1 - Weakness (9) Debility: Status: Acute Category: Medical Code(s): R53.81 - Other malaise (10) Hypertension: Status: Chronic Qualifiers: Hypertension type: primary hypertension Qualified Code(s): I10 - Essential (primary) hypertension Category: Medical Code(s): I10 - Essential (primary) hypertension (11) COPD (chronic obstructive pulmonary disease): Status: Chronic Category: Medical Code(s): J44.9 - Chronic obstructive pulmonary disease, unspecified (12) Type 2 diabetes mellitus with diabetic neuropathy, without long-term current use of insulin: Status: Chronic Category: Medical Code(s): E11.40 - Type 2 diabetes mellitus with diabetic neuropathy, unspecified Plan Continue current care
[2024-03-29] MEDS: SULFA/TRIMETHOPRIM 1 TABLET 1 EACH PO ×2 (08:44→20:11)
[2024-03-29] MEDS: CLOPIDOGREL 75MG TAB 75 MG PO (08:44)
[2024-03-29] MEDS: CEFTRIAXONE SODIUM 1 GM in 0.9 % SODIUM CHLORIDE 50 ML IV (08:44)
[2024-03-29] MEDS: BISOPROLOL 5MG TABLET 10 MG PO (08:45)
[2024-03-29] MEDS: LEVOTHYROXINE 75MCG (0.075MG) TAB 75 MCG PO (08:45)
[2024-03-29] MEDS: FERROUS SULFATE 325MG TABLET 325 MG PO ×2 (08:45→20:11)
[2024-03-29] MEDS: GABAPENTIN 100MG CAPSULE 100 MG PO ×2 (08:45→20:11)
[2024-03-29] MEDS: PRIMIDONE 50MG TABLET 100 MG PO ×2 (08:45→20:11)
--- NOTE | 2024-03-29 12:21 | PC.NURSE ---
Dr. Moore notified this rn of pt needing incentive spirometer in room, as ordered last night. IS provided and pt educated on how to use. pt verbalized understanding and properly demonstrated.
--- NOTE | 2024-03-29 18:37 | PC.NURSE ---
pt resting supine in bed. tolerating 2LNC well. is at bedside and pt encouraged to use numerous times this shift. pt demonstrated proper usage. breathing treatments given PRN. pt verbalized that ultrasound guided IV to alan was sore and pt was adamant to have removed despite it flushing and drawing appropriately. this RN attempted to insert IV twice. Charge placed 22 to rt breast. pt has no complaints at this time. call light within reach.
[2024-03-29] MEDS: ACETAMINOPHEN 325MG TAB 650 MG PO (20:25)
[2024-03-30] VITALS (7 sets, daily range): BP systolic 111–137; BP diastolic 55–95; PULSE 65–83; RESP 16–20; TEMP 36.4–37.1; O2SAT 92–100; BMI 28.8
[2024-03-30 05:10] LABS: HCV Ab Non Reactive (Non Reactive)
--- NOTE | 2024-03-30 05:13 | PC.NURSE ---
Addendum entered by Corry Bernstein RN 03/30/24 05:15: Assisted patient in use of incentive spirometry during med pass, patient done well. Original Note: Alert and oriented. Assist feed due to tremors, ate well during med pass. Purewick in place. 2L NC throughout night, lung sounds wheezing. Call light in reach.
[2024-03-30] MEDS: LEVOTHYROXINE 75MCG (0.075MG) TAB 75 MCG PO (06:32)
[2024-03-30] MEDS: CEFTRIAXONE SODIUM 1 GM in 0.9 % SODIUM CHLORIDE 50 ML IV (08:08)
[2024-03-30] MEDS: PRIMIDONE 50MG TABLET 100 MG PO ×2 (08:08→20:48)
[2024-03-30] MEDS: BISOPROLOL 5MG TABLET 10 MG PO (08:09)
[2024-03-30] MEDS: FERROUS SULFATE 325MG TABLET 325 MG PO ×2 (08:09→20:48)
[2024-03-30] MEDS: GABAPENTIN 100MG CAPSULE 100 MG PO ×2 (08:09→20:48)
[2024-03-30] MEDS: SULFA/TRIMETHOPRIM 1 TABLET 1 EACH PO ×2 (08:09→20:48)
[2024-03-30] MEDS: CLOPIDOGREL 75MG TAB 75 MG PO (08:09)
--- NOTE | 2024-03-30 08:50 | EXP.ACUTE.PN ---
Subjective *Date: 03/30/24 *Time: 08:50 Interval history: Patient is feeling a little better this am. She feels her SOA has improved. She states she has been up in the chair. She slept better last night than she has in a long time. She denies any pain. Medical Exam Vital signs and Labs for Last 24 Hours: Vital Signs Temp Pulse Pulse Resp BP Pulse Ox O2 Del Method 03/30/24 08:20 Nasal Cannula 03/30/24 08:00 97.6 F 67 18 119/55 L 97 Nasal Cannula 03/30/24 08:00 Nasal Cannula 03/30/24 06:57 Nasal Cannula 03/30/24 05:00 Nasal Cannula 03/30/24 04:00 97.6 F 65 16 119/55 L 98 Nasal Cannula 03/30/24 03:00 Nasal Cannula 03/30/24 01:00 Nasal Cannula 03/30/24 00:00 98.0 F 65 16 136/69 100 Nasal Cannula 03/29/24 23:00 Nasal Cannula 03/29/24 21:00 Nasal Cannula 03/29/24 20:00 Nasal Cannula 03/29/24 20:00 98.3 F 80 20 125/71 96 Nasal Cannula 03/29/24 19:00 Nasal Cannula 03/29/24 18:28 Nasal Cannula 03/29/24 18:27 88 03/29/24 18:27 82 03/29/24 17:00 Nasal Cannula 03/29/24 16:00 98.1 F 82 22 136/60 96 Nasal Cannula 03/29/24 15:00 Nasal Cannula 03/29/24 13:00 Nasal Cannula 03/29/24 11:08 86 03/29/24 11:08 90 03/29/24 11:00 Nasal Cannula 03/29/24 09:00 Nasal Cannula O2 Flow Rate FiO2 03/30/24 08:20 2 03/30/24 08:00 03/30/24 08:00 03/30/24 06:57 2 03/30/24 05:00 2 03/30/24 04:00 4 03/30/24 03:00 2 03/30/24 01:00 2 03/30/24 00:00 4 03/29/24 23:00 2 03/29/24 21:00 2 03/29/24 20:00 2 03/29/24 20:00 4 03/29/24 19:00 2 03/29/24 18:28 2 28 03/29/24 18:27 03/29/24 18:27 03/29/24 17:00 2 03/29/24 16:00 4 03/29/24 15:00 2 03/29/24 13:00 2 03/29/24 11:08 03/29/24 11:08 03/29/24 11:00 2 03/29/24 09:00 2 Intake and Output 03/29/24 03/30/24 03/30/24 19:59 03:59 11:59 Intake Total 640 / 940 300 / 940 Output Total 600 / 1000 0 / 1000 400 / 1000 Balance 40 / -60 300 / -60 -400 / -60 Intake: Intake, Oral Amount 640 / 940 300 / 940 Output: Output, Urine Amount 600 / 1000 0 / 1000 400 / 1000 Other: Number of Unmeasured Voids 1 1 Weight 152 lb 8.958 oz Patient Weight 03/30/24 11:59 Weight 152 lb 8.958 oz Laboratory Results - last 24 hr 03/27/24 15:57: Hepatitis C Antibody Non reactive I & O for Labs for Last 24 Hours: Intake & Output 03/27/24 03/28/24 03/29/24 03/30/24 11:59 11:59 11:59 11:59 Intake Total 1140 / 1140 940 / 940 Output Total 700 / 700 700 / 700 1000 / 1000 Balance -700 / -700 440 / 440 -60 / -60 Weight 154 lb 12.267 oz 152 lb 8.958 oz 152 lb 8.958 oz Microbiology Reports for the Last 24 Hours: Microbiology 03/27/24 14:17 Blood Blood Culture - Preliminary NO GROWTH AFTER 48 HOURS 03/27/24 14:12 Blood Blood Culture - Preliminary NO GROWTH AFTER 48 HOURS 03/29/24 00:23 Sputum - Expectorated Sputum Gram Stain - Final Constitutional: Present no acute distress Respiratory: Present CTA bilaterally (Anteriorly and posteriorly) and diminished air movement (Posteriorly) Cardiac: Present Reg Rate and Rhythm GI: Present soft and normal bowel sounds; Absent distention, tenderness or guarding Extremities: Absent tenderness, edema or calf tenderness Neuro: Present awake and oriented x 3 Assessment and Plan *Assessment and plan (1) Right middle lobe pneumonia: Status: Acute Category: Medical Code(s): J18.9 - Pneumonia, unspecified organism (2) CHF exacerbation: Status: Acute Category: Medical Code(s): I50.9 - Heart failure, unspecified (3) Acute hypoxemic respiratory failure: Status: Acute Category: Medical Code(s): J96.01 - Acute respiratory failure with hypoxia (4) Severe mitral regurgitation: Status: Chronic Category: Medical Code(s): I34.0 - Nonrheumatic mitral (valve) insufficiency (5) Anemia: Status: Acute Qualifiers: Anemia type: unspecified type Qualified Code(s): D64.9 - Anemia, unspecified Category: Medical Code(s): D64.9 - Anemia, unspecified (6) Cervical spinal stenosis: Problem Comment: Underwent cervical spine surgery at [facility] 11/2023 with resolution of neck pain and improvement of baseline tremor Status: Chronic Category: Medical Code(s): M48.02 - Spinal stenosis, cervical region (7) Tremor: Problem Comment: Most likely essential tremor. Significant improvement following cervical spine surgery. Currently on primidone 100 mg p.o. nightly by PCP Status: Chronic Category: Medical Code(s): R25.1 - Tremor, unspecified (8) Weakness: Status: Acute Category: Medical Code(s): R53.1 - Weakness (9) Debility: Status: Acute Category: Medical Code(s): R53.81 - Other malaise (10) Hypertension: Status: Chronic Qualifiers: Hypertension type: primary hypertension Qualified Code(s): I10 - Essential (primary) hypertension Category: Medical Code(s): I10 - Essential (primary) hypertension (11) COPD (chronic obstructive pulmonary disease): Status: Chronic Category: Medical Code(s): J44.9 - Chronic obstructive pulmonary disease, unspecified (12) Type 2 diabetes mellitus with diabetic neuropathy, without long-term current use of insulin: Status: Chronic Category: Medical Code(s): E11.40 - Type 2 diabetes mellitus with diabetic neuropathy, unspecified Plan Patient is improving. Will get a PT consult and discuss further care with Dr. Moore.
[2024-03-30] MEDS: IPRATROPIUM/ALBUTEROL 3 ML NEB IH ×2 (13:30→20:19)
--- NOTE | 2024-03-30 13:33 | HMH.PTEV ---
Physical Therapy Evaluation Rehab PT IP Evaluation Start: 03/30/24 08:53 Freq: ONCE Status: Active Protocol: Document 03/30/24 13:28 GABY (Rec: 03/30/24 13:32 GABY [id number]) Subjective/History History History Per H&P: The patient is 73- year-old female presented in the [facility] emergency department for evaluation of cough, shortness of breath starting on the evening of 03/26. She on arrival was afebrile, and on 2 L nasal cannula which she intermittently requires at home, however has not needed in the last year, she states. Workup included hematologic labs, chest x-ray, CT angio pulmonary embolism protocol, EKG, troponin. Initial inventions included DuoNebs x 3, IV magnesium, IV doxycycline, and IV methylprednisolone. Initial workup revealed no significant leukocytosis. Subjective Subjective Pt reports she was IND with all mobility using RW for short household ambulation distances and w/c for community mobility. Pt lives alone in a single-story home with 0 DAREN. New diagnosis of cancer in past 12 No months? Rehab PT IP Eval Objective Appearance Patient Behavior Appropriate,Cooperative Patient Orientation Person,Situation Difficulty following instructions none Speech Pattern Clear Ambulation Patient Able to Ambulate Yes Ambulation Observation IP General Gait Pattern Observation Wide Based Gait Ambulation Distance (feet) 30 Ambulation Assistive Device Rolling Walker Ambulation Ability Independent,Supervision/Stand by Balance Ability to Arise Able, uses arms to help Sitting Balance Steady, safe Standing Balance Steady, wide stance Dynamic Sitting Balance Ability Good Dynamic Standing Balance Ability Good Transfers Bed Transfer Ability Independent Sit to Stand Bed Transfer Ability Independent Rehab PT IP prob,goals,plan Problems Date of Evaluation: 03/30/24 Rehab Potential Rehab Potential Innapropriate for Skilled Therapy Discharge Plan PT Discharge Plan Pt not appropriate for skilled acute care PT at this time d/ t pt?s mobility being at baseline. PT recommending PT services upon d/c from [facility] to address endurance and strength deficits. Eval Complexity Eval Charge Codes 46340 - Moderate Complexity PHYSICIAN CERTIFICATION: I certify the specified therapy services for Trinity Shahlajemal Silvestre are required, authorized, and reviewed every 30 days.
--- NOTE | 2024-03-30 14:35 | PC.NURSE ---
Aox 4, up with assistance times one, 02-2L nc sats in the 90's, purewick in place, assist with feedings, 20g R breast sl.
[2024-03-31] VITALS: BP 98/63; PULSE 82; RESP 17; TEMP 36.6; O2SAT 96
--- NOTE | 2024-03-31 00:15 | INFXCTL.NOTE ---
let nurse know about low b/p
[2024-03-31 04:00] VITALS: BMI 28.8
[2024-03-31 04:08] VITALS: BP 121/61; PULSE 73; RESP 18; TEMP 36.6; O2SAT 94
--- NOTE | 2024-03-31 05:17 | PC.NURSE ---
Patient has had a wonderful night and has had no complaints, She has rested well.
[2024-03-31] MEDS: LEVOTHYROXINE 75MCG (0.075MG) TAB 75 MCG PO (06:11)
[2024-03-31 08:00] VITALS: BP 120/59; PULSE 77; RESP 21; TEMP 36.8; O2SAT 96
--- NOTE | 2024-03-31 08:53 | EXP.ACUTE.PN ---
Subjective *Date: 03/31/24 *Time: 08:53 Interval history: Patient states she is feeling much better this morning. She is less short of air and her cough has improved. She was up and walking yesterday with therapy. She denies any pain and is anxious to get home. Medical Exam Vital signs and Labs for Last 24 Hours: Vital Signs Temp Pulse Pulse Resp BP Pulse Ox O2 Del Method 03/31/24 07:00 Nasal Cannula 03/31/24 05:00 Nasal Cannula 03/31/24 04:08 97.9 F 73 18 121/61 94 L Nasal Cannula 03/31/24 03:00 Nasal Cannula 03/31/24 01:00 Nasal Cannula 03/31/24 00:00 Nasal Cannula 03/31/24 00:00 97.8 F 82 17 98/63 L 96 Nasal Cannula 03/30/24 23:00 Nasal Cannula 03/30/24 21:00 Nasal Cannula 03/30/24 20:20 79 03/30/24 20:20 83 03/30/24 20:00 Nasal Cannula 03/30/24 19:40 98.7 F 80 20 111/95 H 92 L Nasal Cannula 03/30/24 17:26 Nasal Cannula 03/30/24 16:44 Nasal Cannula 03/30/24 16:00 98 F 73 16 137/62 97 Nasal Cannula 03/30/24 13:33 Nasal Cannula 03/30/24 13:32 67 03/30/24 13:32 70 03/30/24 13:32 97 Nasal Cannula 03/30/24 13:00 Nasal Cannula 03/30/24 09:40 Nasal Cannula O2 Flow Rate 03/31/24 07:00 2 03/31/24 05:00 2 03/31/24 04:08 03/31/24 03:00 2 03/31/24 01:00 2 03/31/24 00:00 2 03/31/24 00:00 4 03/30/24 23:00 2 03/30/24 21:00 2 03/30/24 20:20 03/30/24 20:20 03/30/24 20:00 2 03/30/24 19:40 4 03/30/24 17:26 2 03/30/24 16:44 2 03/30/24 16:00 03/30/24 13:33 2 03/30/24 13:32 03/30/24 13:32 03/30/24 13:32 2 03/30/24 13:00 2 03/30/24 09:40 2 Intake and Output 03/30/24 03/31/24 03/31/24 19:59 03:59 11:59 Intake Total 540 / 540 Output Total 500 / 1050 300 / 1050 250 / 1050 Balance 40 / -510 -300 / -510 -250 / -510 Intake: Intake, Oral Amount 540 / 540 Output: Output, Urine Amount 500 / 1050 300 / 1050 250 / 1050 Other: Number of Unmeasured Voids 0 0 Weight 152 lb 8.958 oz Patient Weight 03/31/24 11:59 Weight 152 lb 8.958 oz I & O for Labs for Last 24 Hours: Intake & Output 03/28/24 03/29/24 03/30/24 03/31/24 11:59 11:59 11:59 11:59 Intake Total 1140 / 1140 1210 / 1210 540 / 540 Output Total 700 / 700 700 / 700 1000 / 1000 1050 / 1050 Balance -700 / -700 440 / 440 210 / 210 -510 / -510 Weight 154 lb 12.267 oz 152 lb 8.958 oz 152 lb 8.958 oz 152 lb 8.958 oz Constitutional: Present no acute distress Respiratory: Present decreased breath sounds and crackles (faint on the right) Cardiac: Present Reg Rate and Rhythm GI: Present soft and normal bowel sounds; Absent distention, tenderness or guarding Extremities: Absent tenderness, edema or calf tenderness Neuro: Present awake and oriented x 3 Assessment and Plan *Assessment and plan (1) Right middle lobe pneumonia: Status: Acute Category: Medical Code(s): J18.9 - Pneumonia, unspecified organism (2) CHF exacerbation: Status: Acute Category: Medical Code(s): I50.9 - Heart failure, unspecified (3) Acute hypoxemic respiratory failure: Status: Acute Category: Medical Code(s): J96.01 - Acute respiratory failure with hypoxia (4) Severe mitral regurgitation: Status: Chronic Category: Medical Code(s): I34.0 - Nonrheumatic mitral (valve) insufficiency (5) Anemia: Status: Acute Qualifiers: Anemia type: unspecified type Qualified Code(s): D64.9 - Anemia, unspecified Category: Medical Code(s): D64.9 - Anemia, unspecified (6) Cervical spinal stenosis: Problem Comment: Underwent cervical spine surgery at [facility] 11/2023 with resolution of neck pain and improvement of baseline tremor Status: Chronic Category: Medical Code(s): M48.02 - Spinal stenosis, cervical region (7) Tremor: Problem Comment: Most likely essential tremor. Significant improvement following cervical spine surgery. Currently on primidone 100 mg p.o. nightly by PCP Status: Chronic Category: Medical Code(s): R25.1 - Tremor, unspecified (8) Weakness: Status: Acute Category: Medical Code(s): R53.1 - Weakness (9) Debility: Status: Acute Category: Medical Code(s): R53.81 - Other malaise (10) Hypertension: Status: Chronic Qualifiers: Hypertension type: primary hypertension Qualified Code(s): I10 - Essential (primary) hypertension Category: Medical Code(s): I10 - Essential (primary) hypertension (11) COPD (chronic obstructive pulmonary disease): Status: Chronic Category: Medical Code(s): J44.9 - Chronic obstructive pulmonary disease, unspecified (12) Type 2 diabetes mellitus with diabetic neuropathy, without long-term current use of insulin: Status: Chronic Category: Medical Code(s): E11.40 - Type 2 diabetes mellitus with diabetic neuropathy, unspecified Plan Patient is improving. She did well with PT yesterday and they recommended home health PT upon discharge. Will discuss disposition with Dr. Moore.
[2024-03-31] MEDS: FERROUS SULFATE 325MG TABLET 325 MG PO (09:01)
[2024-03-31] MEDS: PRIMIDONE 50MG TABLET 100 MG PO (09:02)
[2024-03-31] MEDS: BISOPROLOL 5MG TABLET 10 MG PO (09:02)
[2024-03-31] MEDS: SULFA/TRIMETHOPRIM 1 TABLET 1 EACH PO (09:02)
[2024-03-31] MEDS: GABAPENTIN 100MG CAPSULE 100 MG PO (09:02)
[2024-03-31] MEDS: CLOPIDOGREL 75MG TAB 75 MG PO (09:02)
[2024-03-31] MEDS: CEFTRIAXONE SODIUM 1 GM in 0.9 % SODIUM CHLORIDE 50 ML IV (09:02)
--- NOTE | 2024-03-31 09:20 | EXP.PHA.PN ---
Subjective *Date: 03/31/24 *Time: 09:20 Medical Exam Vital signs and Labs for Last 24 Hours: Vital Signs Temp Pulse Pulse Resp BP Pulse Ox O2 Del Method 03/31/24 07:00 Nasal Cannula 03/31/24 05:00 Nasal Cannula 03/31/24 04:08 97.9 F 73 18 121/61 94 L Nasal Cannula 03/31/24 03:00 Nasal Cannula 03/31/24 01:00 Nasal Cannula 03/31/24 00:00 Nasal Cannula 03/31/24 00:00 97.8 F 82 17 98/63 L 96 Nasal Cannula 03/30/24 23:00 Nasal Cannula 03/30/24 21:00 Nasal Cannula 03/30/24 20:20 79 03/30/24 20:20 83 03/30/24 20:00 Nasal Cannula 03/30/24 19:40 98.7 F 80 20 111/95 H 92 L Nasal Cannula 03/30/24 17:26 Nasal Cannula 03/30/24 16:44 Nasal Cannula 03/30/24 16:00 98 F 73 16 137/62 97 Nasal Cannula 03/30/24 13:33 Nasal Cannula 03/30/24 13:32 67 03/30/24 13:32 70 03/30/24 13:32 97 Nasal Cannula 03/30/24 13:00 Nasal Cannula 03/30/24 09:40 Nasal Cannula O2 Flow Rate 03/31/24 07:00 2 03/31/24 05:00 2 03/31/24 04:08 03/31/24 03:00 2 03/31/24 01:00 2 03/31/24 00:00 2 03/31/24 00:00 4 03/30/24 23:00 2 03/30/24 21:00 2 03/30/24 20:20 03/30/24 20:20 03/30/24 20:00 2 03/30/24 19:40 4 03/30/24 17:26 2 03/30/24 16:44 2 03/30/24 16:00 03/30/24 13:33 2 03/30/24 13:32 03/30/24 13:32 03/30/24 13:32 2 03/30/24 13:00 2 03/30/24 09:40 2 Intake and Output 03/30/24 03/31/2425 23:59 07:59 15:59 Intake Total 270 / 1110 Output Total 800 / 1200 250 / 250 Balance -530 / -90 -250 / -250 Intake: Intake, Oral Amount 270 / 1110 Output: Output, Urine Amount 800 / 1200 250 / 250 Other: Number of Unmeasured Voids 0 0 Weight 69.2 kg Patient Weight 03/31/24 23:59 Weight 69.2 kg I & O for Labs for Last 24 Hours: Intake & Output 03/28/24 03/29/24 03/30/24 03/31/24 23:59 23:59 23:59 23:59 Intake Total 600 / 600 1180 / 1480 1110 / 1110 Output Total 900 / 900 600 / 600 1200 / 1200 250 / 250 Balance -300 / -300 580 / 880 -90 / -90 -250 / -250 Weight 70 kg 69.2 kg 69.2 kg 69.2 kg Microbiology Reports for the Last 24 Hours: Microbiology 03/29/24 00:23 Sputum - Expectorated Sputum Gram Stain - Final 03/29/24 00:23 Sputum - Expectorated Sputum Sputum Culture - Preliminary Gram Negative Rods The patient's infection will respond to the chosen ABx?: Yes (AFEBRILE OVER 24 HR, SPUTUM CX GRAM NEGATIVE RODS ID PENDING.) Is the patient receiving the right drug, dose, and route?: Yes Could a more targeted ABx be ordered?: No
--- NOTE | 2024-03-31 09:33 | XR_ITS ---
FINAL REPORT TECHNIQUE: Chest PA & Lateral CLINICAL HISTORY: Bronchitis COMPARISON: 03/27/2024 FINDINGS: 2 views of the chest were performed. The heart size is normal. The mediastinum is within normal limits. There is mild scarring in the right perihilar soft tissues. This is stable when compared to the prior exam. The opacity in the right lung base noted on the previous chest x-ray has resolved. There is no acute cardiopulmonary process. There are no pleural effusions. There is no pneumothorax. The bony thorax appears intact. IMPRESSION: Resolution of opacity in the right lung base since the previous exam. No new acute cardiopulmonary process identified. Reviewed, Interpreted and Dictated by Haroon Osborn MD Transcribed by Jenny Lewis Authenticated and [facility]
--- NOTE | 2024-03-31 09:53 | DIET.NUTRFU ---
Notified nursing, patient plans to discharge and has not had BM. May need medication regimen to help
--- NOTE | 2024-03-31 10:39 | SW/DCPLANNER ---
Addendum entered by Evelyn Guzman 03/31/24 15:05: Patient information also sent to [facility] w/ [employer] regarding [facility] waiver services for this patient. Addendum entered by Joanie Langford 03/31/24 14:55: [facility] is able to accept patient. Anastacio Forte Original Note: I spoke w/ this patient regarding plans once medically stable for discharge. PT/OT evaluated patient and recommended home health services. Patient is agreeable to home health services and does not have an agency preference at this time. I will set up home health services at time of discharge. Patient has also expressed an interest in [facility] waiver services. I will speak w/ [employer] today and fax information to start the process for waiver services. Per patient she may discharge home later today. I will continue to follow up and set up services.
[2024-03-31 11:07] VITALS: PULSE 70; PULSE 72; O2SAT 94
[2024-03-31] MEDS: IPRATROPIUM/ALBUTEROL 3 ML NEB IH (11:07)
--- NOTE | 2024-03-31 12:07 | HMH.PHAINT1 ---
Pharmacy Intervention Comments: COUNSELLED PATIENT ON NEW MEDICATIONS PRIOR TO DISCHARGE. PATIENT VERBALIZED UNDERSTANDING.
--- NOTE | 2024-03-31 14:04 | EXP.DC.SUM ---
General Admission date:: 03/27/24 Discharge date: 03/31/24 HPI HPI HPI: The patient is 73-year-old female presented in the [facility] emergency department for evaluation of cough, shortness of breath starting on the evening of 03/26. She on arrival was afebrile, and on 2 L nasal cannula which she intermittently requires at home, however has not needed in the last year, she states. Workup included hematologic labs, chest x-ray, CT angio pulmonary embolism protocol, EKG, troponin. Initial inventions included DuoNebs x 3, IV magnesium, IV doxycycline, and IV methylprednisolone. Initial workup revealed no significant leukocytosis. She was speaking in full sentences, however she was dropping her oxygen saturations into the low 90s 80 to 85%. She had bilateral expiratory wheezes, with inspiratory wheezes anteriorly on the right side. She had no significant lower extremity edema , but slight pitting. BNP was elevated at nearly 8000. Negative troponin. Chest x-ray with suggested right middle versus right lower lobe consolidation. CT angiogram of the chest was performed and independently interpreted. Patient has a new right middle lobe pneumonia likely exacerbating patient's symptoms. In the ER she was given 60 mg IV Lasix, 2 g Rocephin. She was admitted for acute hypoxemic respiratory failure in the setting of pneumonia and CHF exacerbation. She had pneumonia in July of 2023 with sputum culture showing E. coli, Staph aureus, and Staph epidermidis. She is followed by [facility]. Hospital Course Hospital Course Hospital Course: The patient was admitted and started on Rocephin. Bactrim DS p.o. was ordered in recognition of previous microbiology and she was also started on incentive spirometer. She was short of breath with any exertion and had a cough. By 03/30/2024 she was feeling a little better. Her shortness of air had improved and she was able to sit up in a chair. She was able to rest. Her blood cultures returned showing no growth. Physical therapy was consulted. By 03/31/2024 she had continued to improve. She was able to get up and walk with physical therapy and they felt she could be discharged with home health. Her shortness of breath had improved. Her repeat chest x-ray showed near resolution of the infiltrates. She was stable to be discharged home on cefdinir and Bactrim DS and will follow-up with Dr. Moore. Exam Data for Last 24 hours Vital signs and Labs for Last 24 Hours: Temp Pulse Resp BP Pulse Ox O2 Del Method O2 Flow Rate 98.2 F 72 21 120/59 L 94 L Nasal Cannula 2 03/31/24 08:00 03/31/24 11:07 03/31/24 08:00 03/31/24 08:00 03/31/24 11:07 03/31/24 11:07 03/31/24 11:07 FiO2 28 03/29/24 18:28 I & O for Last 24 hours: Intake & Output 03/29/24 03/30/24 03/31/24 04/01/24 11:59 11:59 11:59 11:59 Intake Total 1140 / 1140 1210 / 1210 900 / 900 Output Total 700 / 700 1000 / 1000 1050 / 1050 Balance 440 / 440 210 / 210 -150 / -150 Weight 152 lb 8.958 oz 152 lb 8.958 oz 152 lb 8.958 oz Microbiology Reports for the Last 24 Hours: Microbiology 03/29/24 00:23 Sputum - Expectorated Sputum Gram Stain - Final 03/29/24 00:23 Sputum - Expectorated Sputum Sputum Culture - Preliminary Gram Negative Rods Narrative: Constitutional Constitutional: no acute distress and cooperative *Routine HEENT Exam Head: Present normocephalic Eye: Present PERRL ENT: Present mucous membranes moist *Routine Neck Exam Neck: Present full ROM; Absent JVD or carotid bruit Routine Chest/Breast/Axilla Exam Chest wall: Absent tenderness *Routine Respiratory Exam Respiratory: Present rhonchi (on the right); Absent respiratory distress *Routine Cardiovascular Exam Cardiovascular: Present RRR and murmur *Routine Abdominal Exam Abdominal: Present soft; Absent tenderness or mass *Routine Rectal Exam Rectal:: deferred *Routine Genitalia Exam Genitalia:: deferred *Routine Extremities Exam Extremities: Absent edema Routine Back/Spine/Pelvis Exam Back/Spine: Present kyphosis *Routine Skin Exam Skin: Present intact *Routine Neurological Exam Neurological: Present alert, oriented X3 and tremors Routine Psychiatric Exam Psychiatric: Present normal affect and normal thought process Results Data Completed and Pending Labs on day of discharge: Preliminary micro results at discharge 03/29/24 00:23 Sputum Culture - Preliminary Sputum - Expectorated Sputum Gram Negative Rods 03/27/24 14:17 Blood Culture - Preliminary Blood NO GROWTH AFTER 48 HOURS 03/27/24 14:12 Blood Culture - Preliminary Blood NO GROWTH AFTER 48 HOURS DS: Diagnosis Discharge Diagnosis (1) Right middle lobe pneumonia: Status: Acute Code(s): J18.9 - Pneumonia, unspecified organism (2) CHF exacerbation: Status: Acute Code(s): I50.9 - Heart failure, unspecified (3) Acute hypoxemic respiratory failure: Status: Acute Code(s): J96.01 - Acute respiratory failure with hypoxia (4) Severe mitral regurgitation: Status: Chronic Code(s): I34.0 - Nonrheumatic mitral (valve) insufficiency (5) Anemia: Status: Acute Code(s): D64.9 - Anemia, unspecified Qualifiers: Anemia type: unspecified type Qualified Code(s): D64.9 - Anemia, unspecified (6) Cervical spinal stenosis: Status: Chronic Code(s): M48.02 - Spinal stenosis, cervical region Problem details: Underwent cervical spine surgery at [facility] 11/2023 with resolution of neck pain and improvement of baseline tremor (7) Tremor: Status: Chronic Code(s): R25.1 - Tremor, unspecified Problem details: Most likely essential tremor. Significant improvement following cervical spine surgery. Currently on primidone 100 mg p.o. nightly by PCP (8) Weakness: Status: Acute Code(s): R53.1 - Weakness (9) Debility: Status: Acute Code(s): R53.81 - Other malaise (10) Hypertension: Status: Chronic Code(s): I10 - Essential (primary) hypertension Qualifiers: Hypertension type: primary hypertension Qualified Code(s): I10 - Essential (primary) hypertension (11) COPD (chronic obstructive pulmonary disease): Status: Chronic Code(s): J44.9 - Chronic obstructive pulmonary disease, unspecified (12) Type 2 diabetes mellitus with diabetic neuropathy, without long-term current use of insulin: Status: Chronic Code(s): E11.40 - Type 2 diabetes mellitus with diabetic neuropathy, unspecified Meds Home Medications and Allergies Home Medications ?Medication ?Instructions ?Recorded ?Confirmed ?Type ferrous sulfate 325 mg (65 mg 325 mg PO BID 05/15/22 03/27/24 History iron) tablet (Feosol) sennosides 8.6 mg tablet (senna) 8.6 mg PO DAILY 05/15/22 03/27/24 History primidone 50 mg tablet 100 mg PO HS 05/19/23 03/27/24 History magnesium oxide 400 mg (241.3 mg 400 mg PO DAILY 08/09/23 03/27/24 History magnesium) tablet gabapentin 100 mg capsule 100 mg PO BID 08/10/23 03/27/24 History mometasone-formoterol HFA 200 2 puff inhalation BID 90 days #13 09/02/23 03/27/24 Rx mcg-5 mcg/actuation aerosol grams inhaler (Dulera) levothyroxine 75 mcg tablet 75 mcg PO DAILY 09/28/23 03/27/24 History albuterol sulfate 90 mcg/actuation 2 puff inhalation Q4-6H PRN 10/21/23 03/27/24 History aerosol inhaler Shortness Of Breath bisoprolol fumarate 5 mg tablet 10 mg PO DAILY 01/18/24 03/27/24 History clopidogrel 75 mg tablet 75 mg PO DAILY 01/18/24 03/27/24 History fluticasone propionate 50 1 spray intranasal DAILY PRN 01/18/24 03/27/24 History mcg/actuation nasal allergies spray,suspension furosemide 20 mg tablet 20 mg PO SUWE 03/27/24 03/28/24 History cefdinir 300 mg capsule 300 mg PO BID pneumonia #20 caps 03/31/24 Rx sulfamethoxazole 800 1 tab PO BID pneumonia #20 tabs 03/31/24 Rx mg-trimethoprim 160 mg tablet (Bactrim DS) New Prescriptions to Start Prescriptions: cefdinir Jack Moore sulfamethoxazole-trimethoprim [Bactrim DS] Jack Moore Allergies Allergy/AdvReac Type Severity Reaction Status Date / Time alendronate sodium (From Allergy Intermediate Dizziness Verified 02/10/24 10:48 Fosamax) isosorbide Allergy Unknown Verified 02/10/24 10:48 allergy reaction atorvastatin (From Lipitor) AdvReac Intermediate Weakness Verified 02/10/24 10:48 tuberculin,PPD,multi-puncture AdvReac Mild POSITIVE Verified 02/10/24 10:48 REACTOR Discharge Plan Disposition Patient Disposition: Home Health Service Discharge Order Discharge Orders: Discharge Order (Routine); Ordered 03/31/24 Ordered By: Jack Moore Follow up Plan Follow up with: Jack Moore MD [Primary Care Provider] - 04/14/24 2:15 pm Prescriptions/Medication Reconciliation: New cefdinir 300 mg capsule 300 mg PO BID Qty: 20 0RF sulfamethoxazole-trimethoprim [Bactrim DS] 800-160 mg tablet 1 tab PO BID Qty: 20 0RF Continued sennosides [senna] 8.6 mg tablet 8.6 mg PO DAILY ferrous sulfate [Feosol] 325 mg (65 mg iron) tablet 325 mg PO BID clopidogrel 75 mg tablet 75 mg PO DAILY Dulera 200-5 mcg/actuation HFA aerosol inhaler 2 puff inhalation BID 90 Days Qty: 13 3RF primidone 50 mg tablet 100 mg PO HS fluticasone propionate 50 mcg/actuation spray,suspension 1 spray intranasal DAILY PRN (Reason: allergies) Rx Instructions: administer into each nostril bisoprolol fumarate 5 mg tablet 10 mg PO DAILY levothyroxine 75 mcg tablet 75 mcg PO DAILY albuterol sulfate 90 mcg/actuation HFA aerosol inhaler 2 puff inhalation Q4-6H PRN (Reason: Shortness Of Breath) magnesium oxide 400 mg (241.3 mg magnesium) Tablet 400 mg PO DAILY gabapentin 100 MG capsule 100 mg PO BID furosemide 20 mg Tablet 20 mg PO WE Rx Instructions: on thursday and thursday Problem Reconciliation Problems Reviewed?: Yes Patient Discharge Instructions ACTIVITY: Limited activity DIET: advance to your usual diet Patient Instructions: DI for Pneumonia -- Adult, DI for Respiratory Failure, DI for Heart Failure Exacerbations Print Language: Korean Providers Primary Care Provider: Jack Moore Admit Provider: Barry García Attending Provider: Jack Moore
--- NOTE | 2024-04-04 10:40 | SW/DCPLANNER ---
Spoke with patient on the phone. Patient stated that she is doing well. Patient stated that she already has an appointment with DR Moore on the and that she is going then not the because she has it scheduled with her ride. Patient stated that her medicine was brought to her bedside and that she has no concerns or questions at this time. Anastacio Forte
== END 2024-03-31 14:57 | disposition home health service (06) | DRG 189 ==
LOC: ER 16:36 → 2ND 17:04
PROVIDERS: Emergency Medicine; Admitting Provider Internal Medicine Adolescent Medicine; Emergency Provider Emergency Medicine; PCP Family Medicine; Visit Provider Family Medicine
DX: J96.01 Acute respiratory failure with hypoxia (principal); I50.33 Acute on chronic diastolic (congestive) heart failure; J18.9 Pneumonia, unspecified organism; J44.1 Chronic obstructive pulmonary disease with (acute) exacerbation; I13.0 Hypertensive heart and chronic kidney disease with heart failure and stage 1 through stage 4 chronic kidney disease, or unspecified chronic kidney disease; Z16.29 Resistance to other single specified antibiotic; Z16.19 Resistance to other specified beta lactam antibiotics; D64.9 Anemia, unspecified; R25.1 Tremor, unspecified; E78.5 Hyperlipidemia, unspecified; I25.2 Old myocardial infarction; I48.0 Paroxysmal atrial fibrillation; E11.40 Type 2 diabetes mellitus with diabetic neuropathy, unspecified; N18.31 Chronic kidney disease, stage 3a; E11.22 Type 2 diabetes mellitus with diabetic chronic kidney disease; I25.10 Atherosclerotic heart disease of native coronary artery without angina pectoris; Z79.02 Long term (current) use of antithrombotics/antiplatelets; Z79.51 Long term (current) use of inhaled steroids; Z79.890 Hormone replacement therapy; Z90.49 Acquired absence of other specified parts of digestive tract; Z99.81 Dependence on supplemental oxygen; Z79.899 Other long term (current) drug therapy; Z87.891 Personal history of nicotine dependence
CPT/HCPCS: 36415; 71045; 71046; 71275; 80048; 80053; 82803; 83036; 83690; 83880; 84443; 84484; 85025; 86803; 87040; 87070; 87077; 87186; 87205; 87389; 87636; 93005; 94640; 94760; 94761; 97162; 99291; J0696; J2919; J3475; J7620; Q9967

== ENCOUNTER 2024-07-18 12:12 | Outpatient (CLI) | payer MEDICARE, MEDICAID, SELFPAY ==
--- OUTSIDE RECORDS SUMMARY | 2024-07-18 12:16 | XMS_ITS ---
Author Organization Unknown [facility] Start Date Provider Encounter for Check-up [id number] [facility]
--- OUTSIDE RECORDS SUMMARY | 2024-07-18 12:17 | XMS_ITS | Continuity of Care Document ---
Author Organization [facility], [facility] Address [address] [place] [address] Care Team Providers Care Lumber Scaler Name Role Phone WALLY LANDON Referring Provider [phone] REED ESQUIVEL Primary Care Provider SHIRIN LUBIN Referring Provider [phone] Assessment Encounter Date Assessment Date Assessment LastModified by Organization Details LastModified Time 06/15/2024 06/15/2024 Ms. Silvestre is status post C3-C6 posterior laminectomy and fusion on 12/18/2023. She is going to see if she has transportation to get her x-rays done today. She has been trying to get an order for headrest for her electric wheelchair. Her primary care so far has not been successful with this. I will also provide her with an order for the headrest. We discussed scheduling another follow-up for about a year out from her surgery. She feels comfortable just calling if she has any issues or concerns. She understands to call if she develops new weakness worsening numbness or tingling. [email or web address] Not available 06/15/2024 11:30:02 Plan of Treatment Reminders Order Date Submit Date Provider Last Modified By Organization Details Last Modified Time Details Appointments None record ed. Lab None record ed. Referral None record ed. Procedures None record ed. Surgeries None record ed. Imaging None record ed. Medication Orders None record ed. Patient TargetsNo targets recorded. Patient InstructionsNo instructions recorded. Reason for Referral None Reported. Procedures Surgical History Date Name Laterality Status Provider Name and Address Organization Details Recorded Time placement of stent in pulmonary artery completed Subha Torres [facility] 07/08/2023 13:21:11 Cholecystectomy completed [facility] 07/08/2023 13:21:18 repair of hip completed [facility] 07/08/2023 13:21:30 hysterectomy completed [facility] 07/08/2023 13:21:36 Removal of tonsils completed [facility] 07/08/2023 13:21:46 ligation of fallopian tube completed [facility] 07/08/2023 13:21:56 Imaging Results None recorded. Procedure Notes None recorded. Medical Equipment None Reported. Allergies Allergen ID Allergen Name Allergen Category Reaction Reaction Severity Criticality Documentation Date Start Date Code Code System Note Provider Name and Address Organization Details Recorded Time 332116 Cipro medicatio n Not available Not available Not available 07/08/2023 20613 3 RxNorm [facility] 4 13:18:49 960856 isosorbid e medicatio n Not available Not available Not available 07/08/2023 6057 RxNorm [facility] 4 13:19:00 397668 Fosamax medicatio n Not available Not available Not available 07/08/2023 62840 5 RxNorm [facility] 4 13:19:09 772755 Lipitor medicatio n Not available Not available Not available 07/08/2023 00905 5 RxNorm OVER 40MG STATE D PT [facility] 4 13:19:27 Medications Name Sig Start Date Stop Date Status Note LastModified by Organization Details LastModified Time metformin 500 mg tablet active Not Available Not Available No t Available primidone 50 mg tablet active Not Available Not Available No t Available bupropion HCl SR 150 mg tablet,12 hr sustained-rele ase active Not Available Not Available Not Available ipratropium 0.5 mg-albuterol 3 mg (2.5 mg base)/3 mL nebulization soln active Not Available Not Available Not Available amiodarone 200 mg tablet active Not Available Not Available No t Available potassium chloride ER 10 mEq tablet,extende d release active Not Available Not Available No t Available clopidogrel 75 mg tablet active Not Available Not Available No t Available levofloxacin 250 mg tablet active Not Available Not Availabl e Not Available sulfamethoxazo le 800 mg-trimethopri m 160 mg tablet Take 1 tablet every 12 hours by oral route for 14 days. active Not Available Not Available No t Available bisoprolol fumarate 10 mg tablet active Not Available Not Available Not Available levothyroxine 75 mcg tablet active Not Available Not Availabl e Not Available bisoprolol fumarate 5 mg tablet active Not Available Not Available Not Available cephalexin 500 mg capsule active Not Available Not Available N ot Available pantoprazole 40 mg tablet,delayed release active Not Available Not Available Not Available nystatin 100,000 unit/gram topical cream APPLY TO THE AFFECTED AREA(S) BY TOPICAL ROUTE 2 TIMES PER DAY 2024 active Not Available Not Available Not Avai lable montelukast 10 mg tablet active Not Available Not Available No t Available hydroxyzine HCl 25 mg tablet active Not Available Not Available Not Available mupirocin 2 % topical ointment active Not Available Not Available Not Available telmisartan 20 mg tablet active Not Available Not Available No t Available furosemide 20 mg tablet active Not Available Not Available No t Available gabapentin 100 mg capsule Take 1 capsule twice a day by oral route for 3 days. active Not Available Not Available No t Available levofloxacin 750 mg tablet active Not Available Not Availabl e Not Available albuterol sulfate HFA 90 mcg/actuation aerosol inhaler active Not Available Not Available Not Available Percocet 5 mg-325 mg tablet Take 1 tablet every 6 hours by oral route as needed. 2023 active Not Available Not Available Not Avai lable cefdinir 300 mg capsule TAKE ONE CAPSULE BY MOUTH TWICE DAILY FOR 7 DAYS -- FINISH ALL MEDICINE -- active Not Available Not Available No t Available fluticasone propionate 50 mcg/actuation nasal spray,suspensi on active Not Available Not Available Not Available rosuvastatin 40 mg tablet active Not Available Not Available Not Available DILT-XR 180 mg capsule, extended release active Not Available Not Available Not Available Januvia 100 mg tablet active Not Available Not Available Not Available Dulera 200 mcg-5 mcg/actuation HFA aerosol inhaler active Not Available Not Available Not Available Farxiga 10 mg tablet active Not Available Not Available Not Available Jardiance 10 mg tablet active Not Available Not Available No t Available Jardiance 25 mg tablet active Not Available Not Available No t Available Spiriva Respimat 1.25 mcg/actuation solution for inhalation active Not Available Not Available N ot Available Vitals Date Recorded Body height Provider Name an d Address Organization Details Last Updated DateTime 06/15/2024 154.94 cm Subha [facility] in 06/15/2024 11:19:50 Social History None recorded. Functional Status None recorded. Mental Status None recorded. Family History Relationship Description Onset Age of this Age Resolved Age Notes LastModified by Organization Details LastModified Time Unspecified Relation Leukemia (morphologic abnormality) Not available 07/08/2023 13:19:37 Unspecified Relation Cerebrovascu lar accident Not available 07/08/2023 13:19:43 Unspecified Relation Hypertensive disorder Not available 13:19:48 Son Heart disease Not available 13:19:52 Medical History Condition Response Osteoporosis/Osteopenia Y Arthritis Y Hyperthyroidism Y Sleep Apnea Y Heart Attack ([place]) Y Deep Vein Thrombosis Y Hypertension Y Kidney Disease Y Gynecological HistoryNo gynecological history recorded. Obstetrics History GPAL:G 0 P 0 0 0 0 Past Encounters Encounter ID Performer Location Encounter Start Date Encounter Closed Date Diagnosis/Indication Diagnosis SNOMED-CT Code Diagnosis ICD10 Code Diagnosis Note [id number] JORDON DRAKE MD [facility] [address] [place] [address] 06/15/2024 10:55:37 06/16/2024 08:36:21 Cervical spondylosis 501809569 M47.812 Health Concerns Section Related Observation LastModified by Organization Detai ls LastModified Time None Recorded Concern Status LastModified by Organization Details LastModified Time None Recorded Payers Encounter Date Sequence Insurance Name Policy Number Policy Hurd Covered Member ID Hurd Member ID Guarantor Name 06/15/2024 1 [facility] (MEDICARE REPLACEMENT/A DVANTAGE - PPO) ELENA August Konrad [id number] August Konrad 06/15/2024 2 [place] [employer] - S/TRADITION AL Trinity Silvestre [id number] Trinity Silvestre Notes Date Note Type Note Provider Name and Address Organization Details Recorded Time 06/15/2024 text/html Ms. Meza is status post C3-6 posterior cervical laminectomy and fusion on 12/18/[address] Drake. She reports she is doing well since surgery. She is ambulating at home, but uses a an electric wheelchair when out of the house. She has been doing home physical therapy. She thinks it will end soon. She has pain in her joints, but denies significant neck or arm pain at this time. She did not get x-rays before the visit. CORA HOGUE PA-C [address] [place], [address], [facility] 06/15/2024 11:30:50 OBGyn Episode No OBEpisode recorded.
--- OUTSIDE RECORDS SUMMARY | 2024-07-18 12:17 | XMS_ITS | Data Portability ---
Author Organization NIKKI MONY Heard [facility] Address [address] [facility] [address] [place] [address] Care Team Providers Care Glass Designer Name Role Phone WALLY LANDON Referring Provider REED ESQUIVEL Primary Care Provider SHIRIN LUBIN Referring Provider [phone] Assessment Encounter Date Assessment Date Assessment LastModified by Organization Details LastModified Time 01/06/2024 01/06/2024 Trinity presents today status post C3-C6 Posterior Cervical Laminectomy and Fusion 12/17. No sutures or brenton to remove. Incision healing well with glue still present. No issues or concerns. All questions answered. Not available 01/06/2024 11:19:20 02/25/2024 02/25/2024 Trinity Silvestre is a pleasant 73-year-old status post C3-C6 PCF on 12/18/2023, performed by Dr. Drake. I have advised patient to contact her PCP and be seen this week due to her new onset drainage. They have followed her in the past for this lesion. I will go on and place her on Bactrim due to slight erythema around her cervical incision. I will have her follow-up in 1 week for another wound check to see how she is doing overall and to ensure there has been no spread of infection. Patient and daughter agreeable to plan. [email or web address] Not available 02/25/2024 11:02:23 06/15/2024 06/15/2024 Ms. Silvestre is status post [...] Details Last Modified Time Details Appointments None recorded. Lab None recorded. Referral None recorded. Procedures None recorded. Surgeries None recorded. Imaging None recorded. Medication Orders Bactrim DS 800 mg-160 mg tablet 2023 [facility], [address] [place] [address], [address], 4 12:09:37 nystatin 100,000 unit/gram topical cream 2023 024 [facility], [address] [place] [address], [address], 14:04:08 Patient TargetsNo targets recorded. Patient InstructionsNo instructions recorded. Reason for Referral None Reported. Results Created Date Observation Date Name Description Value Unit Range Abnormal Flag Note LastModifiedBy Organization Detail LastModifiedTime 02/01/20 24 02/01/2024 XR, cervi ann marie spine , 2 or 3 view [facility] [address] [place] [address] Patilara t Name: TRINITY Justo Reagan Frederick t : 951 Patilara t Orderi ng Provid er: JORDON Zhang EXAM DATE: 2023 EXAM: XR CERVIC AL AP/LAT CLINIC AL INFORM ATION: Neck pain IMAGES PROVID ED: AP, latera l, open mouth and submen viet views of the cervic al spine COMPAR EMETERIO: None. FINDIN GS: Curvat ure, alignm ent, verteb ral body height s and disc spaces are normal . No radiog raphic eviden ce of injury is seen. Previo us irrigator sprinkling system ior fusion C3-C7. No hardwa re loosen ing or compli cation is indica lizet. There is slight anteri or listhe sis of C3 on C4 and C4-C5. IMPRES HAMZAH: Grossl y uncomp licate d appear ing irrigator sprinkling system ior fusion C3-7 Interp reted By: Reed Guzman MD Electr onical ly Signed By: Reed Guzman MD on 2023 12:[address] Rad[address], [address], 02/17/2024 07:38:45 Result Notes None recorded. Procedures Surgical History Date Name Laterality Status Provider Name and Address Organization Details Recorded Time placement of stent in pulmonary artery [facility] 07/08/2023 13:21:11 Cholecystectomy [facility] 07/08/2023 13:21:18 repair of hip [facility] 07/08/2023 13:21:30 hysterectomy [facility] 07/08/2023 13:21:36 Removal of tonsils [facility] 07/08/2023 13:21:46 ligation of fallopian tube [facility] 07/08/2023 13:21:56 Imaging Results Imaging Date Name Status LastModified by Organiz ation Details LastModified Time 02/01/2024 XR, cervical spine, 2 or 3 view completed [address], [address], 02/17/2024 07:38:45 Procedure Notes None recorded. Medical Equipment None Reported. Allergies Allergen ID Allergen Name Allergen Category Reaction Reaction Severity Criticality Documentation Date Start Date Code Code System Note Provider Name and Address Organization Details Recorded Time 726305 Cipro medicatio n Not available Not available Not available 07/08/202323759 3 RxNorm [facility] 13:18:49 447904 isosorbid e medicatio n Not available Not available Not available 07/08/2023 6[address] Rx[address] [facility] 4 13:19:00 806070 Fosamax medicatio n Not available Not available Not available 07/08/2023 59989 5 RxNorm [facility] 4 13:19:09 533602 Lipitor medicatio n Not available Not available Not available 07/08/2023 66775 5 RxNorm OVER 40MG STATE D PT [facility] 4 13:19:27 Medications Name Sig Start Date [...] d Address Organization Details Last Updated DateTime 02/01/2024 154.94 cm [facility] in 02/01/2024 13:46:15 Date Recorded Body height Provider Name an d Address Organization Details Last Updated DateTime 06/15/2024 154.94 cm [facility] in 06/15/2024 11:19:50 Social History None recorded. [...] History Condition Response Osteoporosis/Osteopenia Y Arthritis Y Sleep Apnea Y Hyperthyroidism Y Heart Attack (NE) Y Deep Vein Thrombosis Y Hypertension Y Kidney Disease Y Gynecological HistoryNo gynecological history recorded. Obstetrics History GPAL:G 0 P 0 0 0 0 Past Encounters Encounter ID Performer Location Encounter Start Date Encounter Closed Date Diagnosis/Indication Diagnosis SNOMED-CT Code Diagnosis ICD10 Code Diagnosis Note [id number] OSIEL ALFARO, SONYA [facility] [address] [place] [address] 07/08/2023 12:44:49 07/09/2023 04:54:57 Cervical spondylosis 842517506 M47.812 Cervical radiculopathy 93752834 M54.12 Spondylolisthesis 946874 003 M43.10 [id number] JORDON DRAKE MD [facility] [address] [place] [address] 10/07/2023 14:25:35 10/09/2023 15:35:11 Spinal stenosis in cervical region 64334268 M48.02 [id number] [facility] SCHEDULE [address] [place] [address] 12/21/2023 09:25:57 12/22/2023 14:45:05 [id number] Subha Hockenit h [facility] [address] [place] [id number] 01/06/2024 10:50:06 01/16/2024 04:28:18 [id number] JORDON DRAKE MD [facility] [address] [place] [address] 02/01/2024 13:13:18 02/02/2024 05:07:59 Postoperative care [id number] Z48.89 Patient is doing well. Will get her some home therapy to do 2-3 times a week to help with range of motion and strengthen ing. I have encouraged her to remain on her cervical collar for the next 2 weeks. Will see him 3 months with x-rays. Will call her in some cream for her coccyx lesion. I have answered all her questions. [id number] AUBREY CHRISTIANSON PA-C [facility] [address] [place] [address] 02/25/2024 10:30:08 03/01/2024 10:39:59 History of cervical spine fusion 1198056715 101 Z98.1 [id number] JORDON DRAKE MD NEUROSURG [facility] [address] [place] [address] 06/15/2024 10:55:37 06/16/2024 08:36:21 Cervical spondylosis 039428411 M47.812 Health Concerns Section Related Observation LastModified by Organization Detai ls LastModified Time None Recorded Concern Status LastModified by Organization Details LastModified Time None Recorded Advance Directives Directive None Recorded Payers Encounter Date Sequence Insurance Name Policy Number Policy Hurd Covered Member ID Hurd Member ID Guarantor Name 12/18/2023 1 [facility] (MEDICARE REPLACEMENT/A DVANTAGE - PPO) [facility] August Konrad [id number] [place] 12/18/2023 2 [place] [facility] [place] FFS/TRADITION [place] August Konrad [id number] [place] 01/06/2024 1 [facility] (MEDICARE REPLACEMENT/A DVANTAGE - PPO) [facility] August Konrad [id number] [place] 01/06/2024 2 [facility] HEALTH CHOICES - FFS/TRADITION AL August Konrad [id number] [place] 02/01/2024 1 [facility] (MEDICARE REPLACEMENT/A DVANTAGE - PPO) [facility] August Konrad [id number] [place] 02/01/2024 2 [place] [place]FS/TRADITION [place] August Konrad [id number] August [place]rad 02/25/2024 1 [facility] (MEDICARE REPLACEMENT/A DVANTAGE - PPO) [facility] August Konrad [id number] August Justo Silvestre 02/25/2024 2 [place]FS/TRADITION [place] August Justo Silvestre [id number] Trinity Konrad 06/15/2024 1 [facility] (MEDICARE REPLACEMENT/A DVANTAGE - PPO) [id number] [id number] [facility]24 2 [place] [facility] [place]FS/TRADITION [place] August Justo Silvestre [id number] Trinity Konrad Notes Date Note Type Note Provider Name and Address Organization Details Recorded Time 02/01/2024 text/html Patient is a 73-year-old woman here today for follow-up after her C3-7 cervical laminectomy fusion on 17 December. She is done very well. She is increased her strength and has been walking well. She has been compliant with her brace and bone stimulator. She has no problems with her incision. She does note a coccyx wound breakdown she asked her nursing staff to see. No other neurologic complaints. Imaging: Impression reviewed her x-rays which demonstrate intact hardware good alignment JORDON DRAKE MD [address] [place] [address], [phone], [facility] 02/01/2024 14:02:57 02/25/2024 text/html Trinity Silvestre is a pleasant 73-year-old status post C3-C6 PCF on 12/18/2023, performed by Dr. Drake. She called the office this morning after feeling drainage on the back of her neck. She has not had incisional complications before this time. She denies headache, fever, or body chills. She states she has had a boil on the back of her neck, left of midline, for a long time. Her PCP has drained a boil multiple times in the past. She states she feels like this is what is draining. AUBREY CHRISTIANSON PA-C [address] [place] [address], [phone], [facility] 02/25/2024 13:36:23 06/15/2024 text/html Ms. Meza is status post [...] before the visit. CORA HOGUE PA-C [address] [place], [address], [facility] 06/15/2024 11:30:50 OBGyn Episode No OBEpisode recorded.
--- NOTE | 2024-07-18 12:20 | XR_ITS ---
FINAL REPORT CLINICAL HISTORY: RADICULOPATHY. hx neck surgery. FINDINGS: Four views of the cervical spine were obtained. Posterior fusion C3-C7. There is no fracture present. Minimal spondylolisthesis of C3 on C4. There is moderate anterior osteophyte formation at C5-6. The patient is edentulous. IMPRESSION: Degenerative/postsurgical changes without acute findings. Reviewed, Interpreted and Dictated by Haroon Osborn MD Transcribed by Maria Alejandra Lainez Authenticated and [facility]
== END 2024-07-18 23:59 | disposition home or self-care (01) ==
LOC: RAD 12:15
PROVIDERS: PCP Family Medicine; Visit Provider Neurological Surgery
DX: M48.02 Spinal stenosis, cervical region (principal); M54.12 Radiculopathy, cervical region
CPT/HCPCS: 72040

== ENCOUNTER 2024-08-18 14:07 | Emergency (ER) | payer MEDICARE, MEDICAID, SELFPAY ==
[2024-08-18] VITALS (7 sets, daily range): BP systolic 121–152; BP diastolic 51–95; PULSE 66–87; RESP 18; TEMP 36.8–36.9; O2SAT 95–98; BMI 30.4
--- NOTE | 2024-08-18 14:12 | XR_ITS ---
FINAL REPORT TECHNIQUE: Chest PA & Lateral CLINICAL HISTORY: Nonspecific cough COMPARISON: 03/31/2024 FINDINGS: 2 views of the chest were performed. The heart size is normal. The mediastinum is within normal limits. There is no acute cardiopulmonary process. Chronic scarring is noted in the perihilar regions. There are no pleural effusions. There is no pneumothorax. The bony thorax appears intact. IMPRESSION: No acute cardiopulmonary process. Reviewed, Interpreted and Dictated by Haroon Osborn MD Transcribed by Maria Alejandra Lainez Authenticated and [facility]
--- NOTE | 2024-08-18 14:14 | ECG_ITS ---
APPROVED REPORT Exam: Resting ECG HR:70 bpm ECG Measurements Heart Rate 70 AXES NH 146 P 73 QRSd 101 QRS 60 QT 378 T 161 QTc 399 Conclusion SINUS RHYTHM MODERATE T-WAVE ABNORMALITY, CONSIDER ANTEROLATERAL ISCHEMIA [-0.1+ mV T-WAVE IN V3-V6] ABNORMAL ECG Electronically signed by : OTTO ROJAS, 08/20/2024 12:25:07
--- OUTSIDE RECORDS SUMMARY | 2024-08-18 14:18 | XMS_ITS | Data Portability ---
Author Organization [employer] [facility] Address [address] [facility] [address] [place] [address] Care Team Providers Care Passenger Car Inspector Name Role Phone WALLY LANDON Referring Provider [phone] REED ESQUIVEL Primary Care Provider SHIRIN LUBIN Referring Provider [phone] Assessment Encounter Date Assessment Date Assessment LastModified [...] Bactrim DS 800 mg-160 mg tablet 2023 [facility] [address] [place] [address], [address], 4 12:09:37 nystatin 100,000 unit/gram topical cream 2023 024 [facility] [address] [place] [address], [address], 14:04:08 Patient TargetsNo targets recorded. Patient InstructionsNo instructions recorded. Reason for Referral None Reported. Results Created Date Observation Date Name Description Value Unit Range Abnormal Flag Note LastModifiedBy Organization Detail LastModifiedTime 02/01/20 24 02/01/2024 XR, cervi ann marie spine , 2 or 3 view [facility] [address] [place] [address] Patilara t Name: TRINITY Justo Reagan Frederick [...] ce of injury is seen. Previo us aboriginal education worker coordinator ior fusion C3-C7. No hardwa re loosen ing or compli cation is indica lizet. There is slight anteri or listhe sis of C3 on C4 and C4-C5. IMPRES HAMZAH: Grossl y uncomp licate d appear ing aboriginal education worker coordinator ior fusion C3-7 Interp reted By: Reed Guzman MD Electr onical ly Signed By: Reed Guzman MD on 2023 12:[address] Radiology [facility] [address] [place], [address], 02/17/2024 07:38:45 07/19/19 25 07/18/2024 XR, cervi ann marie spine , 2 or 3 view No observ ation record ed. [address] (X-Ray) [address] [facility] [address], [place], [address], 08/02/2024 10:55:18 Result Notes None recorded. Procedures Surgical History Date Name Laterality Status Provider Name and Address Organization Details Recorded Time placement of stent in pulmonary artery completed [facility] 07/08/2023 13:21:11 Cholecystectomy completed [facility] 07/08/2023 13:21:18 repair of hip completed [facility] 07/08/2023 13:21:30 hysterectomy completed [facility] 07/08/2023 13:21:36 Removal of tonsils completed [facility] 07/08/2023 13:21:46 ligation of fallopian tube completed [facility] 07/08/2023 13:21:56 Imaging Results None recorded. Procedure Notes None recorded. Medical Equipment None Reported. Allergies Allergen ID Allergen Name Allergen Category Reaction Reaction Severity Criticality Documentation Date Start Date Code Code System Note Provider Name and Address Organization Details Recorded Time 633352 Cipro medicatio n Not available Not available Not available 07/08/2023 3 RxNorm [facility] 13:18:49 138964 isosorbid e medicatio n Not available Not available Not available 07/08/2023 6057 [facility] 4 13:19:00 390208 Fosamax medicatio n Not available Not available Not available 07/08/2023 56838 5 RxNorm [facility] 4 13:19:09 788884 Lipitor medicatio n Not available Not available Not available 07/08/2023 78418 5 RxNorm OVER 40MG STATE D PT [facility] 4 13:19:27 Medications Name Sig Start Date [...] Details Last Updated DateTime 06/15/[address] [facility] in 06/15/2024 11:19:50 Date Recorded Body height Provider Name an d Address Organization Details Last Updated DateTime 02/01/[address] [facility] in 02/01/2024 13:46:15 Social History None recorded. Functional Status None [...] Not available 13:19:52 Medical History Condition Response Hyperthyroidism Y Arthritis Y Kidney Disease Y Deep Vein Thrombosis Y Osteoporosis/Osteopenia Y Heart Attack ([place]) Y Sleep Apnea Y Hypertension Y Gynecological HistoryNo gynecological history recorded. Obstetrics History GPAL:G 0 P 0 0 0 0 Past Encounters Encounter ID Performer Location Encounter Start Date Encounter Closed Date Diagnosis/Indication Diagnosis SNOMED-CT Code Diagnosis ICD10 Code Diagnosis Note [id number] OSIEL ALFARO, GROUND WATER TECHNICIAN [facility] [address] [place] [address] 07/08/2023 12:44:49 07/09/2023 04:54:57 Cervical spondylosis 541838518 M47.812 Cervical radiculopathy 40314290 M54.12 Spondylolisthesis 690606 003 M43.10 [id number] CORA HOGUE PA-C [facility] [address] [place] [address] 10/07/2023 14:25:35 10/09/2023 15:35:11 Spinal stenosis in cervical region 20797329 M48.02 [id number] JORDON DRAKE MD SURGERY SCHEDULE [address] [place] [address] 12/21/2023 09:25:57 12/22/2023 14:45:05 [id number] JORDON DRAKE MD [facility] [address] [place] [address] 01/06/2024 10:50:06 01/16/2024 04:28:18 [id number] JORDON DRAKE MD [facility] [address] [place] [address] 02/01/2024 13:13:18 02/02/2024 05:07:59 Postoperative care [id number] Z48.89 Patient is doing well. Will get [...] lesion. I have answered all her questions. [id number] AUBREY CHRISTIANSON PA-C [facility] [address] [place] [address] 02/25/2024 10:30:08 03/01/2024 10:39:59 History of cervical spine fusion 2086074949 101 Z98.1 [id number] CORA HOGUE PA-C NE[facility]OSURG [facility] [address] [place] [address] 06/15/2024 10:55:37 06/16/2024 08:36:21 Cervical spondylosis 088433331 M47.812 Health Concerns Section Related Observation LastModified by Organization Detai ls LastModified Time None Recorded Concern Status LastModified by Organization Details LastModified Time None Recorded Advance Directives Directive None Recorded Payers Insurance Date Sequence Insurance Name Policy Number Policy Hurd Covered Member ID Hurd Member ID Guarantor Name 06/12/2024 2 MEDICAID-[facility] CHO[facility] - FFS/TRADITION AL August Konrad [id number] August Konrad 06/12/2024 1 [facility] (MEDICARE REPLACEMENT/A DVANTAGE - PPO) [id number] August Konrad [id number] August Konrad 07/28/2023 2 [place] August Konrad [id number] August Konrad Notes Date Note Type Note Provider [...] which demonstrate intact hardware good alignment JORDON COSME TIMONEY, MD [address] [place], [address], [facility] 02/01/2024 14:02:57 02/25/2024 text/html Trinity Silvestre is [...] is what is draining. AUBREY CHRISTIANSON PA-C [address] [place], [address], [facility] 02/25/2024 13:36:23 06/15/2024 text/html Ms. Meza is [...] before the visit. CORA HOGUE PA-C [address] [place], [address], [facility] 06/15/2024 11:30:50 OBGyn Episode No OBEpisode recorded.
--- NOTE | 2024-08-18 14:19 | [facility].EDCP ---
Discharge Plan Disposition Patient Disposition: Home, Self-Care Prescriptions Prescriptions: New cefadroxil 500 mg capsule 500 mg PO BID 5 Days Qty: 10 0RF prednisone 50 mg tablet 50 mg PO DAILY 5 Days Qty: 5 0RF No Action ferrous sulfate [Feosol] 325 mg (65 mg iron) tablet 325 mg PO BID clopidogrel 75 mg tablet 75 mg PO DAILY Dulera 200-5 mcg/actuation HFA aerosol inhaler 2 puff inhalation BID 90 Days Qty: 13 3RF primidone 50 mg tablet 100 mg PO HS fluticasone propionate 50 mcg/actuation spray,suspension 1 spray intranasal DAILY PRN (Reason: allergies) Rx Instructions: administer into each nostril bisoprolol fumarate 5 mg tablet 10 mg PO DAILY albuterol sulfate 90 mcg/actuation HFA aerosol inhaler 2 puff inhalation Q4-6H PRN (Reason: Shortness Of Breath) dapagliflozin propanediol [Farxiga] 10 mg tablet PO Spiriva Respimat 1.25 mcg/actuation mist inhalation levothyroxine 75 mcg tablet See Rx Instructions .ROUTE .COMPLEX Qty: 90 3RF Dose Instruction: TAKE 1 TABLET BY MOUTH EVERY MORNING ON AN EMPTY STOMACH Rx Instructions: TAKE 1 TABLET BY MOUTH EVERY MORNING ON AN EMPTY STOMACH magnesium oxide 400 mg (241.3 mg magnesium) Tablet 400 mg PO DAILY gabapentin 100 MG capsule 100 mg PO BID furosemide 20 mg Tablet 20 mg PO SUWE Rx Instructions: on thursday and thursday Referrals Follow up/Referrals: Provider,Referral, [Primary Care Provider, Medical] - See instructions Activity Restrictions/Add. Instructions Additional Instructions/Restrictions: Take antibiotics as prescribed for UTI. Take prednisone as prescribed for COPD exacerbation. Follow-up with primary care doctor in the next week for a recheck. Please return to the ER with any new, concerning, worsening symptoms Clinical Impressions Clinical Impression: COPD exacerbation, Acute UTI Instructions Patient Instructions: DI for Urinary Tract Infection (UTI), DI for Urinary Tract Infection in Children Print Language Print Language: Citizen Of [place] Discharge ED Provider: Braden Beebe HPI <Braden Beebe MD - Last Filed: 08/18/24 15:42> General Chief Complaint: Urogenital-Female Stated Complaint: WEAKNESS, POSS UTI Time Seen by Provider: 08/18/24 14:12 History of Present Illness HPI narrative: Patient is a 74-year-old female past medical history of COPD not on home oxygen, frequent urinary tract infections who presents to the emergency department for evaluation of suspected UTI and URI. History is obtained by patient at bedside over the last few days she has had slight vaginal itchiness which she states she gets when she has urinary tract infection. No overt dysuria or abdominal pain. She does not have chest pain however her cough has been a little bit worse than normal over the last 48 hours causing her to become concerned to call 911 for evaluation. Please note that above description of symptoms, in this electronic medical record under categorization of recalled from ER triage doctor by RN are reflective of an initial nursing assessment, however, is not reflective of my full history and physical exam that was personally taken and clarified. Consequentially, this preceding description of symptoms, which may include the patient's categorized chief complaint in the EMR, do not reflect my personal clinical impression, and the ultimate description of history of present illness and patient stated complaints should be deferred to this section of the note. Unless stated otherwise or congruent with this section of the note, additional signs, symptoms, or incongruence should be interpreted as inaccurate with my clinical impression. Related Data Home Medications ?Medication ?Instructions ?Recorded ?Confirmed ferrous sulfate 325 mg (65 mg 325 mg PO BID 05/15/22 07/27/24 iron) tablet (Feosol) primidone 50 mg tablet 100 mg PO HS 05/19/23 07/27/24 magnesium oxide 400 mg (241.3 mg 400 mg PO DAILY 08/09/23 07/27/24 magnesium) tablet gabapentin 100 mg capsule 100 mg PO BID 08/10/23 07/27/24 albuterol sulfate 90 mcg/actuation 2 puff inhalation Q4-6H PRN 10/21/23 07/27/24 aerosol inhaler Shortness Of Breath bisoprolol fumarate 5 mg tablet 10 mg PO DAILY 01/18/24 07/27/24 clopidogrel 75 mg tablet 75 mg PO DAILY 01/18/24 07/27/24 fluticasone propionate 50 1 spray intranasal DAILY PRN 01/18/24 07/27/24 mcg/actuation nasal allergies spray,suspension furosemide 20 mg tablet 20 mg PO SUWE 03/27/24 07/27/24 dapagliflozin propanediol 10 mg mg PO 06/06/24 07/27/24 tablet (Farxiga) tiotropium bromide 1.25 inhalation 06/06/24 07/27/24 mcg/actuation mist for inhalation (Spiriva Respimat) Previous Rx's ?Medication ?Instructions ?Recorded mometasone-formoterol HFA 200 2 puff inhalation BID 90 days #13 09/02/23 mcg-5 mcg/actuation aerosol grams inhaler (Dulera) levothyroxine 75 mcg tablet See Rx Instructions .Route 08/10/24 .COMPLEX #90 tabs cefadroxil 500 mg capsule 500 mg PO BID 5 days #10 caps 08/18/24 prednisone 50 mg tablet 50 mg PO DAILY 5 days #5 tabs 08/18/24 Allergies Allergy/AdvReac Type Severity Reaction Status Date / Time alendronate sodium (From Allergy Intermediate Dizziness Verified 07/27/24 12:12 Fosamax) isosorbide Allergy Unknown Verified 07/27/24 12:12 allergy reaction atorvastatin (From Lipitor) AdvReac Intermediate Weakness Verified 07/27/24 12:12 tuberculin,PPD,multi-puncture AdvReac Mild POSITIVE Verified 07/27/24 12:12 REACTOR PFSH <Braden Beebe MD - Last Filed: 08/18/24 15:42> FORMERLY [facility], [facility] Disclaimer: The information contained in this section may have been updated after the patient was seen, as this information can be updated by other users. Medical History (Updated 08/18/24 @ 17:06 by Luis Good MD) Chronic constipation Elevated liver enzymes Mediastinal lymphadenopathy Acute on chronic renal failure Cervical spinal stenosis Tremors of nervous system Severe mitral regurgitation Abnormal echocardiogram Abnormal nuclear cardiac imaging test Fungal infection Hilar lymphadenopathy Endobronchial mass Cervical lymphadenopathy On amiodarone therapy Sleep apnea (HFpEF) heart failure with preserved ejection fraction PAF (paroxysmal atrial fibrillation) Coronary artery disease Mitral regurgitation Anemia Edema of lower extremity Chronic respiratory failure with hypoxia Other encephalopathy Fluctuating mental status Encephalopathy Numbness and tingling of upper and lower extremities of both sides Diffuse pain Transaminitis Skin tear of right lower leg without complication Transaminitis DIANELYS (acute kidney injury) Incurvated nail 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 Constipation Elevated liver enzymes Hypokalemia Onychodystrophy History of smoking 30 or more pack years Stage 3a chronic kidney disease (CKD) GI bleed Pneumonia Exposure to TB Multiple lung nodules on CT Encounter for screening for malignant neoplasm of lung in current smoker with 30 pack year history or greater Smoking greater than 30 pack years Asthma-chronic obstructive pulmonary disease overlap syndrome COPD mixed type Atrial fibrillation with rapid ventricular response Acute respiratory failure with hypoxia Pneumonia Pneumonia due to COVID-19 virus Kidney disease Rheumatic fever/heart disease Arthritis Diabetes mellitus, type 2 Sepsis Obesity (BMI 30.0-34.9) Non-STEMI (non-ST elevated myocardial infarction) Multifocal atrial tachycardia Hypertension Hyperlipidemia COPD (chronic obstructive pulmonary disease) Tobacco use Ileus, unspecified SIRS (systemic inflammatory response syndrome) Sepsis Gastroenteritis Right lower lobe pneumonia Pincer nail deformity Type 2 diabetes mellitus with diabetic neuropathy, without long-term current use of insulin Bilateral lower extremity edema Diabetic foot Keratosis Onychogryphosis Pre-ulcerative calluses Surgical History History of neck surgery Hx of removal of ovary History of cholecystectomy History of hip surgery History of coronary artery stent placement Family History Other Coronary artery disease Diabetes Hypertension Social History Smoking Status: Former smoker tobacco type: cigarettes packs per day: 1 years smoked: 50 smoking status stop date: 2 years ago second hand exposure: Yes alcohol intake: never substance use type: denies use current occupational status: retired Travel in the last 8 weeks?: None household members: none housing: apartment lives independently: Yes marital status: current occupational exposures/hazards: No caffeine: Yes Have you lived/traveled outside [place] in past 30 days?: No Contact w/someone who lives/traveled outside US past 30 days?: No Exposure to someone with infectious disease in past 14 days?: No Do you have a fever (greater than 100.4 F or 38 C)?: No Have you tested positive for COVID-19?: No Exposed to someone with COVID-19 in past 14 days?: No Do you have a sore throat?: No Do you have a cough?: No Do you have any weakness?: Yes Do you have any diarrhea?: No Are you experiencing any unusual bleeding?: No Do you have any muscle aches/pain?: No Do you have any abdominal pain?: No Are you experiencing loss of taste or smell?: No Other Medical History Have you received the Flu Vaccine for this season: No Have you received the Pneumonia Vaccine: No <Braden Beebe MD - Last Filed: 08/18/24 15:42> ROS Obtained: Yes Systems reviewed as appropriate & no additional complaints except as documented Physical Exam <Braden Beebe MD - Last Filed: 08/18/24 15:42> General General appearance: alert and in no apparent distress Head Head exam: atraumatic and normocephalic Eye Eye exam: Present PERRL and EOMI ENT ENT exam: Present mucous membranes moist Neck Neck exam: Present normal inspection Chest Chest inspection: Present normal inspection and symmetric chest wall rise Respiratory Respiratory exam: Present normal lung sounds bilaterally and wheezes (End expiratory all lung henderson); Absent respiratory distress, accessory muscle use or prolonged expiratory phase Cardiovascular Cardiovascular exam: Present regular rate and normal rhythm Abdominal Exam Abdominal exam: Present soft; Absent tenderness Bimanual exam: Present other (No asymmetric swelling of the labia, no fluctuance, no significant tenderness, no vaginal discharge, 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.) Extremities Exam Extremities exam: Present normal inspection Neurological Exam Neurological exam: Present alert and oriented X3 Psychiatric Psychiatric exam: Present normal affect Skin Skin exam: Present warm and dry HEART Score <Braden Beebe MD - Last Filed: 08/18/24 15:42> HEART Score HEART Score assessment performed?: Yes History (anamnesis): Slightly suspicious ECG: Non-specific disturbance Age: >65 years Risk factors: 3 or more risk factors Troponin: </= normal limit HEART Score: 5 <Luis Good MD - Last Filed: 08/18/24 19:21> HEART Score HEART Score: 5 Critical Care <Braden Beebe MD - Last Filed: 08/18/24 15:42> Critical Care Time Critical Care Time: No Medical Decision Making <Braden Beebe MD - Last Filed: 08/18/24 15:42> [place] Inquiry Pt receiving controlled substance: No Vital Signs Vital Signs: 08/18/24 14:09 08/18/24 15:19 08/18/24 17:44 Temperature 98.3 F Temperature Source Oral Pulse Rate 78 69 Pulse Rate [Right] 78 Respiratory Rate 18 Blood Pressure 150/66 H 137/95 H Blood Pressure [Right Arm] 150/66 H Blood Pressure Mean 97 Blood Pressure Mean [Right Arm] 94 02 Sat by Pulse Oximetry 97 97 98 Oxygen Delivery Method Room Air 08/18/24 18:02 08/18/24 18:31 08/18/24 19:00 Temperature Temperature Source Pulse Rate 66 87 70 Pulse Rate [Right] Respiratory Rate Blood Pressure 152/69 H 121/51 L 142/70 H Blood Pressure [Right Arm] Blood Pressure Mean Blood Pressure Mean [Right Arm] 02 Sat by Pulse Oximetry 95 96 96 Oxygen Delivery Method Room Air Room Air Room Air Lab Data Labs: Lab Results 08/18/24 15:42: WBC 10.3, RBC 3.84 L, Hgb 12.0 L, Hct 37.5, MCV 97.7, MCH 31.3 H, MCHC 32.0, RDW 12.8, Plt Count 304, MPV 9.8, Neut % (Auto) 75.4, Lymph % (Auto) 13.4, Cooper % (Auto) 9.4 H, Eos % (Auto) 1.2, Baso % (Auto) 0.3, Neut # (Auto) 7.8, Lymph # (Auto) 1.4, Cooper # (Auto) 1.0, Eos # (Auto) 0.1, Baso # (Auto) 0.0, Sodium 139, Potassium 4.2, Chloride 106, Carbon Dioxide 26, Anion Gap 11.2, BUN 30 H, Creatinine 1.20 H, Estimated Creat Clear 47, Estimated GFR 44 L, Est GFR ( Amer) 53 L, Glucose 164 H, Calcium 9.4, Total Bilirubin 0.3, AST 29, ALT 18, Alkaline Phosphatase 107, Troponin I 0.01, Total Protein 6.7, Albumin 3.9, Globulin 2.8, Albumin/Globulin Ratio 1.4 08/18/24 15:57: Urine Color Yellow, Urine Appearance Sl cloudy, Urine pH 6.0, Ur Specific [place] 1.010, Urine Protein Negative, Urine Glucose (UA) 3+, Urine Ketones Negative, Urine Blood Negative, Urine Nitrate Positive A, Urine Bilirubin Negative, Urine Urobilinogen 0.2, Ur Leukocyte Esterase Negative, Urine RBC 3-5, Urine WBC 20-50, Ur Squamous Epith Cells 3-5, Urine Bacteria 4+ 08/18/24 18:37: Troponin I 0.01 08/18/24 15:42 08/18/24 15:42 Response Orders (Tests/Meds): ED MEDICATIONS Discontinued Medications Generic Name Dose Route Start Last Admin Trade Name Jefferyq PRN Reason Stop Dose Admin Albuterol/Ipratropium 3 ml 08/18/24 14:12 08/18/24 15:30 Ipratropium/Albuterol 3 Ml Neb IH 08/18/24 14:13 3 ml ONCE ONE Administration Ceftriaxone Sodium 2 gm/ 100 mls @ 200 mls/hr 08/18/24 16:46 08/18/24 18:08 Sodium Chloride IV 08/18/24 17:15 200 mls/hr ONCE ONE Administration Methylprednisolone Sodium Succinate 125 mg 08/18/24 14:12 08/18/24 15:33 Methylprednisolone Sod Succ 125mg Vial IV 08/18/24 14:13 125 mg ONCE ONE Administration ORDERS Category Date Time Status CXR 2 view (NOT portable) [XR chest 2V] Stat Exams 08/18/24 14:12 Completed CBC w/Auto Diff [Complete Blood Count Auto Diff] Stat Lab 08/18/24 15:42 Completed CMP [Comprehensive Metabolic Panel] Stat Lab 08/18/24 15:42 Completed Trop I [Troponin I] Stat Lab 08/18/24 15:42 Completed Troponin I Q3H Lab 08/18/24 21:45 Ordered Troponin I Q3H Lab 08/19/24 00:45 Ordered Troponin I Stat Lab 08/18/24 18:37 Completed UA [Urinalysis and Microscopic] Stat Lab 08/18/24 15:57 Completed Blood Culture Stat Micro 08/18/24 17:30 Received Urine Culture Stat Micro 08/18/24 15:57 Received ECG Data Tracing #1: ECG Narrative: Independently interpreted by me rate is 70, rhythm is regular, axis is normal, no ST elevation or depression in anatomical contiguous leads, QTc 399 MDM Narrative Medical Decision Narrative: In summary patient is a 74-year-old female past medical history described above who presents emergency department for evaluation of shortness of breath cough, vaginal itchiness. Patient is hemodynamically stable nontoxic-appearing upon arrival, afebrile. Differential includes COPD exacerbation pneumonia, urinary tract infection, among others. Workup in totality will be conducted with hematologic labs, chest x-ray, EKG, single troponin to rule out atypical's ACS, urinalysis. Patient has an expiratory phase wheezing and is likely having a slight COPD exacerbation but has good air movement. Initial interventions with respect to that include DuoNeb and methylprednisolone. Recommend repeat evaluation pending at time of transfer of care to the oncoming physician, Dr. Good. Procedure: Procedure performed ultrasound-guided IV performed by Braden Beebe. Using real-time ultrasound guidance a long 18-gauge peripheral IV was placed in the patient's right basilic vein. Vessel cannula was patent. Images were not saved to primary archive patient tolerated procedure well there were no immediate complications MD Florentino: I assumed care from this patient at 3:[address] Beebe as noted above. <Luis Good MD - Last Filed: 08/18/24 19:21> Vital Signs Vital Signs: 08/18/24 14:09 08/18/24 15:19 08/18/24 17:44 Temperature 98.3 F Temperature Source Oral Pulse Rate 78 69 Pulse Rate [Right] 78 Respiratory Rate 18 Blood Pressure 150/66 H 137/95 H Blood Pressure [Right Arm] 150/66 H Blood Pressure Mean 97 Blood Pressure Mean [Right Arm] 94 02 Sat by Pulse Oximetry 97 97 98 Oxygen Delivery Method Room Air 08/18/24 18:02 08/18/24 18:31 08/18/24 19:00 Temperature Temperature Source Pulse Rate 66 87 70 Pulse Rate [Right] Respiratory Rate Blood Pressure 152/69 H 121/51 L 142/70 H Blood Pressure [Right Arm] Blood Pressure Mean Blood Pressure Mean [Right Arm] 02 Sat by Pulse Oximetry 95 96 96 Oxygen Delivery Method Room Air Room Air Room Air Lab Data Labs: Lab Results 08/18/24 15:42: WBC 10.3, RBC 3.84 L, Hgb 12.0 L, Hct 37.5, MCV 97.7, MCH 31.3 H, MCHC 32.0, RDW 12.8, Plt Count 304, MPV 9.8, Neut % (Auto) 75.4, Lymph % (Auto) 13.4, Cooper % (Auto) 9.4 H, Eos % (Auto) 1.2, Baso % (Auto) 0.3, Neut # (Auto) 7.8, Lymph # (Auto) 1.4, Cooper # (Auto) 1.0, Eos # (Auto) 0.1, Baso # (Auto) 0.0, Sodium 139, Potassium 4.2, Chloride 106, Carbon Dioxide 26, Anion Gap 11.2, BUN 30 H, Creatinine 1.20 H, Estimated Creat Clear 47, Estimated GFR 44 L, Est GFR ( Amer) 53 L, Glucose 164 H, Calcium 9.4, Total Bilirubin 0.3, AST 29, ALT 18, Alkaline Phosphatase 107, Troponin I 0.01, Total Protein 6.7, Albumin 3.9, Globulin 2.8, Albumin/Globulin Ratio 1.4 08/18/24 15:57: Urine Color Yellow, Urine Appearance Sl cloudy, Urine pH 6.0, Ur Specific [place] 1.010, Urine Protein Negative, Urine Glucose (UA) 3+, Urine Ketones Negative, Urine Blood Negative, Urine Nitrate Positive A, Urine Bilirubin Negative, Urine Urobilinogen 0.2, Ur Leukocyte Esterase Negative, Urine RBC 3-5, Urine WBC 20-50, Ur Squamous Epith Cells 3-5, Urine Bacteria 4+ 08/18/24 18:37: Troponin I 0.01 Response Orders (Tests/Meds): ED MEDICATIONS Discontinued Medications Generic Name Dose Route Start Last Admin Trade Name Freq PRN Reason Stop Dose Admin Albuterol/Ipratropium 3 ml 08/18/24 14:12 08/18/24 15:30 Ipratropium/Albuterol 3 Ml Neb IH 08/18/24 14:13 3 ml ONCE ONE Administration Ceftriaxone Sodium 2 gm/ 100 mls @ 200 mls/hr 08/18/24 16:46 08/18/24 18:08 Sodium Chloride IV 08/18/24 17:15 200 mls/hr ONCE ONE Administration Methylprednisolone Sodium Succinate 125 mg 08/18/24 14:12 08/18/24 15:33 Methylprednisolone Sod Succ 125mg Vial IV 08/18/24 14:13 125 mg ONCE ONE Administration ORDERS Category Date Time Status CXR 2 view (NOT portable) [XR chest 2V] Stat Exams 08/18/24 14:12 Completed CBC w/Auto Diff [Complete Blood Count Auto Diff] Stat Lab 08/18/24 15:42 Completed CMP [Comprehensive Metabolic Panel] Stat Lab 08/18/24 15:42 Completed Trop I [Troponin I] Stat Lab 08/18/24 15:42 Completed Troponin I Q3H Lab 08/18/24 21:45 Ordered Troponin I Q3H Lab 08/19/24 00:45 Ordered Troponin I Stat Lab 08/18/24 18:37 Completed UA [Urinalysis and Microscopic] Stat Lab 08/18/24 15:57 Completed Blood Culture Stat Micro 08/18/24 17:30 Received Urine Culture Stat Micro 08/18/24 15:57 Received MDM Narrative Medical Decision Narrative: In summary patient is a 74-year-old female past medical history described above who presents emergency department for evaluation of shortness of breath cough, vaginal itchiness. Patient is hemodynamically stable nontoxic-appearing upon arrival, afebrile. Differential includes COPD exacerbation pneumonia, urinary tract infection, among others. Workup in totality will be conducted with hematologic labs, chest x-ray, EKG, single troponin to rule out atypical's ACS, urinalysis. Patient has an expiratory phase wheezing and is likely having a slight COPD exacerbation but has good air movement. Initial interventions with respect to that include DuoNeb and methylprednisolone. Recommend repeat evaluation pending at time of transfer of care to the oncoming physician, Dr. Good. Procedure: Procedure performed ultrasound-guided IV performed by Braden Beebe. Using real-time ultrasound guidance a long 18-gauge peripheral IV was placed in the patient's right basilic vein. Vessel cannula was patent. Images were not saved to primary archive patient tolerated procedure well there were no immediate complications MD Florentino: I assumed care from this patient at 3:[address] Beebe as noted above. Chest x-ray was independently interpreted by me, revealing no acute cardiopulmonary pathology. Nonactionable CBC, baseline creatinine at 1.2, otherwise unremarkable CMP. Positive nitrites on UA w/ 20-50 white blood cells concerning for UTI. Administered ceftriaxone. Troponin of 0.01 w/ no delta. Repeat EKG showed no dynamic changes. On reevaluation, the patient reported significant improvement in her symptoms. Was appropriate for discharge with oral antibiotics and outpatient follow-up.
[2024-08-18] MEDS: IPRATROPIUM/ALBUTEROL 3 ML NEB IH (15:30)
[2024-08-18] MEDS: METHYLPREDNISOLONE SOD SUCC 125MG VIAL 125 MG IV (15:33)
--- NOTE | 2024-08-18 15:33 | PC.NURSE ---
Dayday Castellanos MD to bedside to perform USIV.
[2024-08-18 15:57] LABS: Basophils % 0.3 % (0.1-2.0); Eosinophils # 0.1 Kmm3 (0.0-0.4); Eosinophils % 1.2 % (0.1-12.0); Hematocrit 37.5 % (37.0-47.0); Immature Granulocytes # 0.03 10^3uL; Immature Granulocytes % 0.3 %; Lymphocytes # 1.4 K/mm3 (0.7-4.5); Lymphocytes % 13.4 % (10-50); Mean Corpuscular Hemoglobin 31.3 pg (27.0-31.2); Mean Corpuscular Volume 97.7 fl (81-99); Mean Platelet Volume 9.8 fl (7.4-10.4); Monocytes % 9.4 % (1.7-9.3); Neutrophils # 7.8 K/mm3 (1.8-7.8); Neutrophils % 75.4 % (37.0-80.0); Nucleated Red Blood Cells # 0 10^3/uL; Nucleated Red Blood Cells % 0 %; Platelet Count 304 K/mm3 (142-424); Red Blood Count 3.84 M/mm3 (4.20-5.40); Red Cell Distribution Width 12.8 % (11.5-17.5); Red Cell Distribution Width-SD 46.1 fL; White Blood Count 10.3 K/mm3 (4.8-10.8)
--- NOTE | 2024-08-18 15:57 | PC.NURSE ---
intermittent cath obtained with PT consent. UA sample sent to lab.
[2024-08-18 16:04] LABS: Microscopic, Urine URINE MICROSCOPIC (MICROSCOPIC)
[2024-08-18 16:07] LABS: Albumin Level 3.9 g/dl (3.5-5.0); Chloride 106 mmol/L (98-107); Sodium 139 mmol/L (136-145)
[2024-08-18 16:08] LABS: Potassium 4.2 mmoL/L (3.5-5.1)
[2024-08-18 16:10] LABS: Alanine Aminotransferase 18 U/L (12-78); Albumin/Globulin Ratio 1.4 (1.1-1.8); Alkaline Phosphatase 107 U/L (38-126); Anion Gap 11.2 mEq/L (5-15); Aspartate Amino Transferase 29 U/L (14-36); Bilirubin,Total 0.3 mg/dl (0.2-1.3); Blood Urea Nitrogen 30 mg/dl (7-17); Carbon Dioxide 26 mmol/L (22.0-30.0); Creatinine Clearance Estimated 47 mL/min (50-200); Estimated Glomerular Filt Rate 44 ml/min (>60); GFR (African American) 53 ML/MIN (>60); Globulin 2.8 g/dL (1.3-3.2); Total Protein,Serum 6.7 g/dl (6.3-8.2)
[2024-08-18 16:11] LABS: Calcium 9.4 mg/dl (8.4-10.2); Glucose 164 mg/dl (74-100)
[2024-08-18 16:11] LABS: Appearance,Urine SL CLOUDY (Clear); Bilirubin,Urine Negative (Negative); Blood, Urine Negative (Negative); Color,Urine YELLOW (Yellow); Glucose,Urine (UA) 3+ (Negative); Ketones,Urine Negative (Negative); Leukocyte Esterase,Urine Negative (Negative); Nitrate,Urine POSITIVE (Negative); Protein,Urine Negative (Negative); Urobilinogen,Urine 0.2 EU/dl (0.2)
[2024-08-18 16:29] LABS: Bacteria,Urine 4+ /lpf; WBC,Urine 20-50 #/hpf (0-3)
[2024-08-18 16:38] LABS: Troponin I 0.01 ng/ml (0.00-0.034)
--- NOTE | 2024-08-18 17:08 | ECG_ITS ---
APPROVED REPORT Exam: Resting ECG HR:65 bpm ECG Measurements Heart Rate 65 AXES LA 149 P 59 QRSd 99 QRS 51 QT 391 T 96 QTc 402 Conclusion SINUS RHYTHM POSSIBLE INFERIOR MYOCARDIAL INFARCTION , PROBABLY OLD [30 ms Q WAVE IN II/aVF] MODERATE T-WAVE ABNORMALITY, CONSIDER ANTEROLATERAL ISCHEMIA [-0.1+ mV T-WAVE IN V3-V6] ABNORMAL ECG Electronically signed by : OTTO ROJAS, 08/20/2024 12:39:56
--- NOTE | 2024-08-18 17:40 | PC.NURSE ---
snow removal supervisor called to obtain new USIV access
--- NOTE | 2024-08-18 17:52 | PC.NURSE ---
Restaurant Kitchen And Service Manager at bed side attempting USIV.
[2024-08-18] MEDS: CEFTRIAXONE SODIUM 2 GM in 0.9 % SODIUM CHLORIDE 100 ML IV (18:08)
--- NOTE | 2024-08-18 18:45 | PC.NURSE ---
Pt incontient of urine. Provided pericare.
[2024-08-18 19:18] LABS: Troponin I 0.01 ng/ml (0.00-0.034)
== END 2024-08-18 19:42 | disposition home or self-care (01) ==
PROVIDERS: Student in an Organized Health Care Education/Training Program; Emergency Provider Emergency Medicine
DX: J44.1 Chronic obstructive pulmonary disease with (acute) exacerbation (principal); N39.0 Urinary tract infection, site not specified; J44.9 Chronic obstructive pulmonary disease, unspecified; R74.8 Abnormal levels of other serum enzymes; K59.09 Other constipation; I10 Essential (primary) hypertension; E11.40 Type 2 diabetes mellitus with diabetic neuropathy, unspecified
CPT/HCPCS: 71046; 80053; 81001; 84484; 85025; 87040; 87086; 87088; 87186; 93005; 96365; 96375; 99284; J0696; J2919

== ENCOUNTER 2024-08-24 12:26 | Outpatient (CLI) | payer MEDICARE, MEDICAID, SELFPAY ==
--- NOTE | 2024-08-24 12:35 | MR_ITS ---
FINAL REPORT TECHNIQUE: Multiplanar and multisequence imaging of the cervical spine was obtained. CLINICAL HISTORY: RADICULOPATHY, bilateral arm numbness and tingling surgery 8 months ago on c spine COMPARISON: 09/09/2023 FINDINGS: There is straightening of the normal cervical lordosis, as well as anterolisthesis of C3 on C4, and C4 on C5, similar to that seen on the prior exam of 2023. In the interval since the prior MRI of 2023, the patient has undergone multilevel posterior fusion and decompression from C3-C7. Vertebral body height is preserved. Signal intensity within the substance of the spinal cord is normal. No acute bone marrow edema. No acute paraspinal abnormality. C2/3: There is no focal disc herniation, central stenosis or neural foraminal narrowing. C3/4: Exam is limited at this level by artifact from implanted hardware. The central canal stenosis has improved since the prior's MRI examination, however there is still bilateral neural foraminal narrowing similar to the prior exam. C4/5: Exam is limited at this level by artifact from implanted hardware. There is improvement in central canal stenosis since the prior exam, and no neural foraminal narrowing is identified. C5/6: Exam is limited at this level by artifact from implanted hardware. There may be mild bilateral neural foraminal narrowing, however there is no canal stenosis at this level. C6/7: Exam is limited at this level by artifact from implanted hardware. No central canal or foraminal narrowing is identified. C7/T1: There is no focal disc herniation, central stenosis or neural foraminal narrowing. IMPRESSION: No significant change in alignment in this patient who has undergone multilevel posterior fusion from C3-C7 as described. There is limitation in evaluation at multiple levels secondary to magnetic susceptibility artifact from implanted hardware. Please see level by level description in the report above. Reviewed, Interpreted and Dictated by Kamala De Jesus MD Transcribed by Jenny Lewis Authenticated and [facility]
== END 2024-08-24 23:59 | disposition home or self-care (01) ==
LOC: RAD 12:27
PROVIDERS: PCP Family Medicine; Visit Provider Neurological Surgery
DX: M48.02 Spinal stenosis, cervical region (principal); M54.12 Radiculopathy, cervical region; M99.71 Connective tissue and disc stenosis of intervertebral foramina of cervical region; Z98.1 Arthrodesis status
CPT/HCPCS: 72141

== ENCOUNTER 2024-08-31 12:36 | Outpatient (CLI) | payer MEDICARE, MEDICAID, SELFPAY ==
--- OUTSIDE RECORDS SUMMARY | 2024-06-13 11:30 | XMS_ITS ---
Author Organization [id number] Address [facility] [address] [place] [id number] Care Team Providers Care Item Repair Manager Name Role Phone Mi Moore Tray Unavailable [phone] Allergies Allergen (clinical drug ingredient) Drug/Non Drug Allergy documented on EMR Reaction Allergy Type Onset Date Status ciprofloxacin Cipro hives Drug Allergy Act angel REASON FOR VISIT 4 week check Medications Medication SIG (Take, Route, Frequency, Duration) Notes Start Date End Date Status Levothyroxine Sodium 75 MCG 1 tablet in the morning on an empty stomach Orally Once a day Active Spiriva Respimat 1.25 MCG/ACT 2 PUFFS ONCE DAILY Inhalation Once a day Active Natural Senna Laxative 8.6 MG 1 tablets at bedtime as needed Orally Once a day 10/29/2022 Not-Taking Dulera 200-5 MCG/ACT 2 PUFF INHALED TWICE A DAY for 90 Active Clopidogrel Bisulfate 75 MG 1 tablet Orally Once a day for 30 days Active Furosemide 20 MG 1 tablet Orally on Thursday and Thursday Active Magnesium 400 MG as directed Orally Active Gabapentin 100 MG 1 cap(s) orally 2 times a day for 30 day(s) 05/27/2024 Active Bisoprolol Fumarate 5 MG TAKE 2 TABLETS BY MOUTH ONCE A DAY for 30 Active Primidone 50 MG TAKE 2 TABLETS BY MOUTH ONCE DAILY AT BEDTIME for 30 Active FeroSul 325 (65 Fe) MG TAKE 1 TAB(S) ORALLY 2 TIMES A DAY 90 DAYS for 90 days Active Farxiga 10 MG 1 tablet Orally Once a day for 30 day(s) 04/21/2024 Active Walker with Wheels as directed Hx of Falling Z91.81 05/23/2024 Active Vital Signs Blood pressure systolic 100 mm Hg 06/14/19 25 Blood pressure diastolic 64 mm Hg 025 Heart Rate 60 /min 06/13/2024 Height 61 in 06/13/2024 Weight 000 lbs 06/13/2024 Encounters Encounter Location Date Provider Diagnosis [facility] [address] [facility] [address] [place] [id number] 06/13/2024 Mi Moore Mitral valve insufficiency, unspecified etiology I34.0 and Type 2 diabetes mellitus with diabetic neuropathy, unspecified whether circuit court clerk insulin use E11.40 Assessments Encounter Date Diagnosis (ICD Code) Assessment Notes Treatment Notes Treatment Clinical Notes Section Notes 06/13/2024 Mitral valve insufficiency, unspecified etiology (ICD-10 - I34.0) 06/13/2024 Type 2 diabetes mellitus with diabetic neuropathy, unspecified whether circuit court clerk insulin use (ICD-10 - E11.40) Continue present care. RTO in 2 months. Will be post valve replacement Plan Of Treatment Treatment Notes Assessment Notes Type 2 diabetes mellitus wit h diabetic neuropathy, unspecified whether circuit court clerk insulin use Continue present care. RTO in 2 months. Will be post valve replacement Next Appt Details Follow Up: 2 Months, Reason: Provider Name:Mi Crawford er, 09/05/2024 03:15:00 PM, [address] [facility] [address], [address], [place], [id number], Progress Notes * BRYAN AUGUSTDOB:1950 (74 yo F)Acc No.[id number]:06/13/2024 Progress Notes Patient: Rebel NARVAEZAugust Provider: Mi Moore M.D. :1950 A ge:73 Y S ex:Female Date:06/13/2024 Address:[address] [place], [place] [address] Subjective: * Chief Complaints: * 1 . 4 week check. * HPI: C ardiology: The pt is here today for a check-up. Pt states the heart valve replacement has been rescheduled for sometime in June. Dr. Gonzalez plans for Transcutaneous mitral valve replacement. Pt states she has been doing pretty good and denies any new concerns today. 73 year old female presents with c/o Short of Breath. Denies : Chest Pain. D enies : Dizziness. D enies : Palpitations. * ROS: D ERMATOLOGY: no R noé. n o H nadya. G ASTROENTEROLOGY: no N ausea. n o V omiting. n o D iarrhea.? U ROLOGY: no D ifficulty urinating. n o B lood in urine. * Medical History: A sthma, Angina, Hypertension, Hyperlipidemia, Type 2 diabetes, Hyperthyroid, Allergic rhinitis, Kidney disease, Rheumatic fever, CAD, stent 06/2021, H, 02/17-02/26 [facility] COVID 19 and pneumonia, 03/01-03/12/22 [facility] for GI bleed.. * Surgical History: S tent to Left Main Coronary artery, [facility] 07/10/2021, Right total hip arthroplasty , Left total hip arthroplasty , Cervical spine surgery, C3-C7 arthrodesis and fusion of C3-C6 12/18/23. * Hospitalization/Major Diagno stic Procedure: N STEMI, COPD, stent to Left Main cornary artery 06/2021, [facility] Septic shock; sepsis;elevated LFT;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. * Family History: F ather: diagnosed with Diabetes, Hypertension, Heart Disease. M other: diagnosed with Diabetes, Hypertension. P aternal Grand Mother: diagnosed with Diabetes, Hypertension. M aternal Grand Mother: diagnosed with Diabetes, Hypertension. 2 son(s) , 1 daughter(s) . . * Social History: C URRENT TOBACCO USE: No . C affeine: yes, frequency: coffee and soft drinks. 2 a day. Occupation: not working. * Medications: T aking Furosemide 20 MG Tablet 1 tablet Orally on Thursday and Thursday , Taking Magnesium 400 MG Capsule as directed Orally , Taking Levothyroxine Sodium 75 MCG Tablet 1 tablet in the morning on an empty stomach Orally Once a day , Taking Spiriva Respimat 1.25 MCG/ACT Aerosol Solution 2 PUFFS ONCE DAILY Inhalation Once a day , Taking Dulera 200-5 MCG/ACT Aerosol 2 PUFF INHALED TWICE A DAY , Taking Clopidogrel Bisulfate 75 MG Tablet 1 tablet Orally Once a day , Taking FeroSul 325 (65 Fe) MG Tablet TAKE 1 TAB(S) ORALLY 2 TIMES A DAY 90 DAYS , Taking Farxiga 10 MG Tablet 1 tablet Orally Once a day , Taking Walker with Wheels as directed , Notes to Pharmacist: Hx of Falling Z91.81, Taking Primidone 50 MG Tablet TAKE 2 TABLETS BY MOUTH ONCE DAILY AT BEDTIME , Taking Gabapentin 100 MG Capsule 1 cap(s) orally 2 times a day , Taking Bisoprolol Fumarate 5 MG Tablet TAKE 2 TABLETS BY MOUTH ONCE A DAY , Not-Taking Natural Senna Laxative 8.6 MG Tablet 1 tablets at bedtime as needed Orally Once a day , Medication List reviewed and reconciled with the patient * Allergies: C ipro: hives. Objective: * Vitals: W t: 000, Temp: 98.1, BP: 100/64, HR: 60, O2 Sat: 97% on RA, Nurse: LISSETTE, Ht: 61. * Examination: G eneral Examination: General Appearance: N AD. In wheelchair. C-Spine brace in place. HEENT: u nremarkable. Oral cavity: n o lesions, mucosa moist and WNL, no erythema. Neck: s upple, no lymphadenopathy. Chest: n ormal shape and expansion. Heart: R SR, mitral murmur. Lungs: d ecreased breath sounds. Abdomen: soft and nontender, no organomegaly or masses.? Neurologic Exam: t remor of the hands a nd the head significantly improved . Skin: n ormal, no rash. Peripheral pulses: n ormal. Extremities: m inimal leg edema. . ? Assessment: * Assessment: 1. M itral valve insufficiency, unspecified etiology - I34.0 (Primary) 2 . T ype 2 diabetes mellitus with diabetic neuropathy, unspecified whether circuit court clerk insulin use - E11.40 Plan: * Treatment: * Procedure Codes: G 2211 Complex e/[place], [address] [place], 3044F HG A1C LEVEL LT 7.0%, G8752 MOST RECENT SYSTOLIC BP < 140MM HG, G8754 MOST RECENT DIASTOLIC BP < 90MM HG * Follow Up: 2 Months * Billing Information: * Visit Code: 49776 Office Visit, Est Pt., Level 3. * Procedure Codes: G2211 Complex e/[place]. [address] [place]. 3044F HG A1C LEVEL LT 7.0%. G8752 MOST RECENT SYSTOLIC BP < 140MM HG. G8754 MOST RECENT DIASTOLIC BP < 90MM HG. * Electronic signature of Mi Moore MD on 08/31/2024 at 12:43 PM EDT Sign off status: Pending * Provider: Mi Moore M.D. Date: 0 06/13/2024 Generated for Lavoni camden/Kami/eTransmitting on: 0 08/31/2024 12:43 PM EDT History and Physical Notes * HPI (History of Present Illness) Category Sub-Category Detail Notes Category Not es Cardiology Short of Breath Chest Pain Palpitations Dizziness Examination Category Sub-Category Detail Notes Category Not es General Examination HEENT: unremarkable Heart: RSR, mitral murmur Lungs: decreased breath shellie nds Abdomen: soft and nontender, no organomegaly or masses Extremities: minimal leg edema. General Appearance: NAD. In wheelchair. C-Spine brace in place Skin: normal, no rash Neurologic Exam: tremor of the hands and the head significantly improved Neck: supple, no lymphaden opathy Oral cavity: no lesions, mucosa m oist and WNL, no erythema Peripheral pulses: normal Chest: normal shape and exp ansion
--- OUTSIDE RECORDS SUMMARY | 2024-07-07 10:35 | XMS_ITS | Encounter Summary ---
Author Organization [facility] Address [address] [place] [address] Care Team Providers Care Machined Parts Quality Inspector Name Role Phone Zia Moore MD Primary Care Provider [phone] Jonathan Gallardo MD Unavailable Elvi Villavicencio MD Unavailable Carissa Drake MD Unavailable Devon Olea MD Unavailable [phone] Luis Whalen Sleep Disorder Unavailable + [phone] Carlo Chavez MD Unavailable [phone] Reason for Visit * Auth/Cert (Routine) Specialty Diagnoses / Procedures Referred By Fito shelley Referred To Contact [facility] [address] [place] [address] Phone: tel: fax: [facility] [address] [place] [address] Phone: tel: fax: Referral ID Status Reason Start Date Expiration Date Visits Re quested Visits Authorized [id number] 1 1 Encounter Details Date Type Department Care Team (Late st Contact Info) Description 07/07/2024 10:35 AM EDT - 07/07/2024 11:59 PM EDT Hospital Encounter [facility] Preadmission Testing 1 [place] [address] Edward Gonzalez MD [address] [facility] [address] [place] [id number] Mitral valve insufficiency, unspecified etiology (Primary Dx); Preop testing Discharge Disposition: Home or Self Care Anesthesia Record Procedure Summary Procedure Name Responsible Anesthesiologist Anesthesia Start Time Anesthesia Stop Time CARDIAC CATH - TRANSCATHETER MITRAL VALVE REPAIR (TMVR) Miguelangel Rodriguez MD 07/08/24 0728 07/08/24 1026 Events Date Time Event Comment 07/08/2024 0651 0728 An Start Patient identif ied and chart reviewed. 0728 An Start Data Anesthesia mac mitzi and monitors checked. 0738 Pre-Induction Eval FDA anest hesia machine pre-use checkout completed. Patient status reassessed prior to start of anesthesia care. 0815 An Induction 0815 Quick Note Levophed 4 mcg IV Push 0816 An Intubation 0820 Anesthesia Ready 0845 Quick Note Levophed 4mcg I V Push 0919 Quick Note Levophed 4mcg I V Push 1008 An Extubation 1013 an stop data 1026 An Stop Meds * Agents No agents on file. * Blood No blood administrations on file. Lines, Drains, and Airways Type Details Placement Removal Arterial Sheath (Erroneous entry. Th is sheath was in venous access.); 07/08/24; 0942 07/08/24 0848 by Brittany Babin RN 07/08/24 0942 by Brittany Babin RN Peripheral IV Placement Date: 06/21 11/14; Placement Time: 0630; Size: 20 G; Orientation: Right; Location: Antecubital; Site Prep: Chlorhexidine ; Removal Date: 07/09/24; Removal Time: 1458 07/08/24 0630 by Cristy Maurice RN 07/09/24 1458 by Zenaida Lizarraga RN Peripheral IV Placement Date: 06/21 11/14; Placement Time: 0644; Size: 22 G; Orientation: Medial, Right; Site Prep: Chlorhexidine ; Removal Date: 07/09/24; Removal Time: 1458 07/08/24 0644 by Cristy Maurice RN 07/09/24 1458 by Zenaida Lizarraga RN ETT Placement Date 07/08; Placement Time 08 (created via procedure documentation); Airway Size 7.5; Airway Cuffed Yes; Removal Date 07/08/24; Removal Time 1008 07/08/24 0816 by Whit Cisse, PROFESSOR OF SPANISH 07/08/24 1008 by Whit Cisse CRNA Arterial Sheath 07/08/24; 0847; 4 Fr .; Left; Femoral; 07/08/24; 0942 07/08/24 0847 by Brittany Babin RN 07/08/24 0942 by Brittany Babin RN Venous Sheath 07/08/24; 0848; 6 Fr .; Left; Femoral; 07/08/24; 0942 07/08/24 0848 by Brittany Babin RN 07/08/24 0942 by Brittany Babin RN Venous Sheath 07/08/24; 0849; 8 Fr .; Right; Femoral; 07/08/24; 0942 07/08/24 0849 by Brittany Babin RN 07/08/24 0942 by Brittany Babin RN documented in this encounter Social History Tobacco Use Types Packs/Day Years Used Date Smoking Tobacco: Former Cigarettes Passive Smoke Exposure: Current Smokeless Tobacco: Never Comments:Smoked for 50 yrs , Quit 3 yrs ago Alcohol Use Standard Drinks/Week Comments Never 0 (1 standard drink = 0.6 oz pur e alcohol) PHQ-2 Answer Date Recorded Patient Health Questionnaire-2 Score 0 07/07/2024 Utilities Answer Date Recorded In the past 12 months, has t he [employer], gas, oil, or water [employer] threatened to shut off services in your home? No 07/08/2024 Interpersonal Safety Answer Date Record ed How often does anyone, juany reyes family and friends, physically hurt you? Never 07/08/2024 How often does anyone, juany reyes family and friends, insult or talk down to you? Never 07/08/2024 How often does anyone, juany reyes family and friends, threaten you with harm? Never 07/08/2024 How often does anyone, inclu ding family and friends, scream or curse at you? Never 07/08/2024 Housing Stability Answer Date Recorded What is your living situation today? I [address] a [place] [address] to live 07/08/[address] you li ve. Do you have problems with any of the following? None of the above 07/08/2024 Food Insecurity Answer Date Recorded Within the past 12 months, y ou worried that your food would run out before you got money to buy more. Never true 07/08/2024 Within the past 12 months, t he food you bought just didn't last and you didn't have money to get more. Never true 07/08/2024 Transportation Needs Answer Date Record ed In the past 12 months, has l ack of reliable transportation kept you from medical appointments, meetings, work or from getting things needed for daily living? No 07/08/2024 Financial Resource Strain Answer Date R ecorded How hard is it for you to pa y for the very basics like food, housing, medical care, and heating? Would you say it is: Not hard at all 07/08/2024 Employment Answer Date Recorded Do you want help finding or keeping work or a job? I do not need or want help 07/08/2024 Family and Community Support Answer John e Recorded If for any reason you need h elp with day-to-day activities such as bathing, preparing meals, shopping, managing finances, etc., do you get the help you need? I don't need any help 07/08/2024 Feeling Lonely or Isolated 0 07/08 Educational Attainment Answer Date Yoav rded Do you speak a language other than Yoruba at [facility]? No 07/08/2024 Do you want help with school or training? For example, starting or completing job training or getting a high school diploma, GED or equivalent. No 07/08/2024 Physical Activity Answer Date Recorded Number of minutes of exercise per week 0 07/08/2024 Alcohol Use Answer Date Recorded 5 or More Drinks Per Day Past 12 Months 0 07/08/2024 Depression Answer Date Recorded Calculation of above two rows 0 Stress Answer Date Recorded Stress means a situation in which a person feels tense, restless, nervous, or anxious, or is unable to sleep at night because his or her mind is troubled all the time. Do you feel this kind of stress these days? Not at all 07/08/2024 Disabilities Answer Date Recorded Because of a physical, menta l, or emotional condition, do you have serious difficulty concentrating, remembering, or making decisions? (5 years or older) No 07/08/2024 Because of a physical, menta l, or emotional condition, do you have difficulty doing errands alone such as visiting a doctor's office or shopping? (15 years or older) No 07/08/2024 Substance Use Answer Date Recorded How many times in the past y ear have you used prescription drugs for non-medical reasons? Never 07/08/2024 How many times in the past year have you used [place] legal drugs? Never 07/08/2024 Comments No Sex and Gender Information Value Date Recorded Sex Assigned at Female 09/17/2021 1:57 PM CDT Legal Sex Female 1:57 PM CDT Gender Identity Female 09/17/2021 1:57 PM CDT Sexual Orientation Not on file documented as of this encounter Last Filed Vital Signs Vital Sign Reading Time Taken Comments Blood Pressure 139/59 07/07/2024 11:45 AM EDT Pulse 63 07/07/2024 11:45 AM EDT Temperature 36.7 C (98 F) 07/07/2024 11:45 AM EDT Respiratory Rate 18 07/07/2024 11:4 5 AM EDT Oxygen Saturation 100% 07/07/2024 11: 45 AM EDT Inhaled Oxygen Concentration - - Weight 74.3 kg (163 lb 12.8 oz) 025 11:45 AM EDT Height 154.9 cm (5' 1 ) 07/07/2024 11:4 5 AM EDT Body Mass Index 30.95 07/07/2024 11:45 AM EDT documented in this encounter Discharge Instructions * Discharge Instructions* Viridiana Stephens RN - 07/07/2024 11:45 AM EDT Please arrive by: 5:30am Day of Surgery Instructions: Your surgery date and time is documented above. Please arrive at the hospital on time. If you are unable to arrive at your designated time, call the [facility] ([facility]) at [phone] or ext [phone] Arrive at the hospital at your designated time, and park in the main visitor parking area. GO TO ADMITTING TO REGISTER FOR SURGERY. You will be notified by the [facility] ([facility]) of any time changes in your surgery arrival time. You will ONLY be called if there is a time change. If you have any questions, please call the above phone number. If you are going home the same day as your surgery, you MUST have a responsible adult over the age of [address] you home, and REMAIN with you 24 hours after surgery. PLEASE NOTE: If you do not have a responsible adult with you the day of surgery, your surgery may be cancelled. DO NOT EAT OR DRINK ANYTHING AFTER MIDNIGHT: the night before your surgery unless otherwise indicated. This includes water, coffee, gum, mints, tobacco, etc. You may brush your teeth the morning of surgery. Try not to smoke for 2 weeks prior to surgery. DO NOT chew tobacco or use any form of tobacco 24 hours before surgery. DO NOT drink alcohol or take illicit drugs 24 hours before surgery. On the day of surgery, please take only the medications you are instructed to take. Please bring inhalers with you on the day of surgery. Please DO NOT take any NSAIDS (Ibuprofen, Blood thinners, Aspirin, Motrin, Aleve, Celebrex, etc) unless approved by your physician. DO NOT wear any jewelry (including rings and body piercings), hair pins, makeup or nail sinhala on fingers or toes on the day of surgery. If you wear contact lenses, please bring a case and solution to put them in. If you wear glasses orhearing aids, please bring a case to put those in. DIABETICS: please check your blood sugar the morning of surgery. Follow instructions given to you by the nurse. If your blood sugar is high, do what you would normally do. If you are admitted, please leave belongings in the car and have family bring them to your room later. Leave valuables such as money, credit cards or jewelry at home. Please contact your surgeon for any physical changes such as cold, flu, fever, or if you're unable to come for surgery. If you suspect you may be , please notify your physician. Please do not remove the ID bracelet or red blood bracelet if they are placed on you. You may shower in these bracelets, but do not soak them in water. Bring a copy of any healthcare directives, and legal documents such as a living will, healthcare surrogate, power of insurance defense attorney, or legal guardianship verification to the hospital on the day of surgery. GENERAL INSTRUCTIONS FOR POST OP CARE: -For the next 24 hours: Have a responsible adult (over the age of 18) with you for your safety and protection Do NOT drive, work around machines, or use any type of power equiptment Do NOT smoke Do NOT drink alcohol or while on pain medication Do NOT make any important decisions, or sign any important paperwork -After surgery, you may have a sore throat, muscle aches, dizziness, and feel tired or sleepy - You may resume medications unless directed not to by your doctor. - Your first meal after surgery should be light, and gradually increase your diet to what is normalfor you. In case of nausea, avoid solid food and take only clear liquids as tolerated. - After surgery, please plan to spend a quiet, relaxed evening at home. Resume your normal activityas prescribed by your doctor, and as tolerated. * Attachments The following attachments cannot be sent through Care Everywhere. * Transcatheter Mitral Valve Repair (Yoruba) documented in this encounter Medications at Time of Discharge acetaminophen (TYLENOL) 500 MG tablet Take 1 tablet (500 mg total) by mouth every 4 (four) hours as needed. albuterol HFA (VENTOLIN HFA) 90 mcg/actuation inhaler Inhale 2 puffs by mouth every 4 (four) hours as needed. bisoprolol (ZEBETA) 5 MG tablet Take 2 tablets (10 mg total) by mouth daily. clopidogreL (PLAVIX) 75 mg tablet Take 1 tablet (75 mg total) by mouth daily Restart on 12/26/23. 0 12/24/2023 dapagliflozin propanediol (Farxiga) 10 mg tablet Take by mouth daily. ferrous sulfate 325 (65 FE) MG EC tablet Take 1 tablet (325 mg total) by mouth 2 (two) times daily. fluticasone propionate (FLONASE) 50 mcg/actuation nasal spray Administer 1 spray into affected nostril(s) daily. gabapentin (NEURONTIN) 100 MG capsule Take 1 capsule (100 mg total) by mouth 2 (two) times daily. 0 12/24/2023 levothyroxine (TIROSINT) 75 mcg capsule Take 1 capsule (75 mcg total) by mouth daily. 08/09/2023 magnesium oxide (MAG-OX) 400 mg (241.3 mg magnesium) tablet Take 1 tablet (400 mg total) by mouth daily. 08/08/2023 mometasone-formot patti (Dulera) 200-5 mcg/actuation inhaler Inhale 2 puffs by mouth 2 (two) times daily. primidone (MYSOLINE) 50 MG tablet Take 2 tablets (100 mg total) by mouth nightly. 05/19/2023 tiotropium (SPIRIVA) 18 mcg inhalation capsule Inhale 1 capsule (18 mcg total) by mouth daily. documented as of this encounter Miscellaneous Notes * Treatment Plan - Viridiana Stephens RN - 07/07/2024 11:00 AM EDTSummary: blood type and screen Called pt and asked if she could come back today for blood draw (r/t rn omitted a lab on draw at time of pat appointment) she replied she was already home and could not return today, I then advised her she had to be here at 5am in the morning instead of 530 to get lab drawn prior to proc. Verb understanding. Notified Veronica CHAU in [facility] of situation. documented in this encounter Plan of Treatment Not on file documented as of this encounter Procedures Procedure Name Priority Date/Time Associated Diagnosis Comments CBC W/ AUTO DIFF Routine 07/07/2024 11:1 3 AM EDT Mitral valve insufficiency, unspecified etiology COMPREHENSIVE METABOLIC PANEL Routine 07/07/2024 11:13 AM EDT Mitral valve insufficiency, unspecified etiology documented in this encounter Results * (ABNORMAL) Comprehensive metabolic panel (07/07/2024 11:13 AM EDT) Sodium 140 136 - 145 meq/L 07/07/2024 12:47 PM [facility] Potassium 4.9 3.4 - 5.1 meq/L 07/07/2024 12:47 PM [facility] Chloride 105 98 - 112 meq/L 07/07/2024 12:47 PM [facility] CO2 25 22 - 29 meq/L 07/07/2024 12:47 PM [facility] Calcium 9.7 8.4 - 10.2 mg/dL 07/07/2024 12:47 PM [facility] Glucose 111 82 - 115 mg/dL 07/07/2024 12:47 PM [facility] BUN 33.3(H) 9.8 - 20.1 mg/dL 07/07/2024 12:47 PM [facility] Creatinine 1.08 0.57 - 1.11 mg/dL 07/07/2024 12:47 PM [facility] BUN/Creatinine 31(H) 8 - 20 07/07/2024 12:47 PM [facility] eGFR (mL/min/1.73m2) 54(L) >=60 mL/min/1. 73m2 07/07/2024 12:47 PM [facility] Albumin 3.6 3.5 - 5.0 g/dL 07/07/2024 12:47 PM [facility] Alkaline Phosphatase 102 40 - 150 U/L 07/07/2024 12:47 PM [facility] ALT 10 <=34 U/L 07/07/2024 12:47 PM [facility] Comment: ALT2 reagent used for testing does not contain P5P supplementation and therefore may miss ALT elevations in patients with B6 deficiency. This population may be as high as 10% in the [place], with risk factors including malabsorption, drug interactions, and alcoholic hepatitis. AST 21 11 - 34 U/L 07/07/2024 12:47 PM [facility] Comment: AST2 reagent used for testing does not contain P5P supplementation and therefore may miss AST elevations in patients with B6 deficiency. This population may be as high as 10% in the [place], with risk factors including malabsorption, drug interactions, and alcoholic hepatitis. Total Bilirubin 0.3 0.2 - 1.2 mg/dL 07/07/2024 12:47 PM EDT [facility] Protein, Total 7.5 6.4 - 8.3 g/dL 07/07/2024 12:47 PM EDT [facility] Globulin 3.9 2.5 - 4.1 g/dL 07/07/2024 12:47 PM EDT [facility] Anion Gap 15(H) 4 - 12 07/07/2024 12:47 PM EDT [facility] A/G Ratio 0.9 0.7 - 1.9 07/07/2024 12:47 PM EDT [facility] Osmolality Calc 287.5 mOsm/kg 12:47 PM EDT [facility] Blood Venipuncture / Unknown 07/07/2024 11:13 AM EDT 07/07/2024 12:25 PM EDT us Edward Gonzalez MD LAB BLOOD ORDERABLES Final Resu lt [facility] [address] [phone] * (ABNORMAL) CBC with automated diff (07/07/2024 11:13 AM EDT) WBC 7.5 4.0 - 10.0 K/ L 07/07/2024 12:32 PM EDT [facility] RBC 4.25 3.93 - 5.22 M/ L 07/07/2024 12:32 PM EDT [facility] Hemoglobin 13.3 11.2 - 15.7 GM/DL 07/07/2024 12:32 PM EDT [facility] Hematocrit 41.6 34.1 - 44.9 % 07/07/2024 12:32 PM EDT [facility] MCV 98(H) 79 - 95 fL 07/07/2024 12:32 PM EDT [facility] MCH 31.3 25.6 - 32.2 pg 07/07/2024 12:32 PM EDT [facility] MCHC 32.0(L) 32.2 - 35.5 GM/DL 07/07/2024 12:32 PM EDT [facility] RDW 13.5 11.7 - 14.4 % 07/07/2024 12:32 PM EDT [facility] Platelets 331 140 - 375 K/CU MM 07/07/2024 12:32 PM EDT [facility] MPV 9.4 9.4 - 12.3 fL 07/07/2024 12:32 PM EDT [facility] % Neutros 69 34 - 71 % 07/07/2024 12:32 PM EDT [facility] % Lymphs 18(L) 19 - 52 % 07/07/2024 12:32 PM EDT [facility] % Monos 7 5 - 13 % 07/07/2024 12:32 PM EDT [facility] % Eos 4 1 - 6 % 07/07/2024 12:32 PM EDT [facility] % Baso 0 0 - 1 % 07/07/2024 12:32 PM EDT [facility] NRBC Absolute <0.01 0 - 0.012 K/ul 07/07/2024 12:32 PM EDT [facility] # Neutros 5.21 1.56 - 6.13 K/ L 07/07/2024 12:32 PM EDT [facility] # Lymphs 1.37 1.18 - 3.74 K/ L 07/07/2024 12:32 PM EDT [facility] # Monos 0.56 0.24 - 0.86 K/ L 07/07/2024 12:32 PM EDT [facility] # Eos 0.27 0.04 - 0.36 K/ L 07/07/2024 12:32 PM EDT [facility] # Baso 0.03 0.01 - 0.08 K/ L 07/07/2024 12:32 PM EDT [facility] Immature Granulocytes-Re lative 1.10(H) 0.01 - 0.43 % 07/07/2024 12:32 PM EDT [facility] # IG 0.08(H) 0.00 - 0.03 K/uL 07/07/2024 12:32 PM EDT [facility] Blood Venipuncture / Unknown 07/07/2024 11:13 AM EDT 07/07/2024 12:25 PM EDT Narrative [facility] - 07/07/2024 12:32 PM EDT When CBC w/ Auto Diff is ordered the lab will add a Manual Differential as a quality check at no additional charge if: Lymphocytes greater than seventy five percent with normal or increased WBC Monocytes greater than Fifteen percent Basophil greater than four percent Bands >10% or several immature myeloids are seen on scan Blast? Flag noted Atypical Lymph flag noted us Edward Gonzalez MD LAB BLOOD ORDERABLES Final Resu lt [facility] [address] [phone] documented in this encounter Visit Diagnoses Diagnosis Mitral valve insufficiency, unspecified etiology- Primary Preop testing Unspecified pre-operative examination documented in this encounter Care Teams Machined Parts Quality Inspector Relationship Specialty Start Date End Date Zia Moore MD [address] [place] [address] PCP - General Family Medicine 11/20/23 Jonathan Gallardo MD [address] [place] [id number] Ice Cream Freezer Assistant Cardiology 11/20/23 Elvi Villavicencio MD [address] [facility] [address] [place] [address] Inventory Taker Nephrology 11/26/23 Carissa Drake MD [address] [facility] [address] [place] [address] Neurologist Neurosurgery 11/26/23 Devon Olea MD [address] [place] [address] [place] [address] Machine Maintenance Servicer Pulmonary Disease 11/26/23 [place], [facility] Sleep Disorder [address] [place] [address] Consulting Physician Sleep Medicine 11/26/23 Carlo Chavez MD [address] [facility] [address] [place] [address] Surgeon Cardiothoracic Surgery 12/15/23 documented as of this encounter
--- OUTSIDE RECORDS SUMMARY | 2024-07-08 05:03 | XMS_ITS | Encounter Summary ---
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 Name Role Phone Zia Moore MD Primary Care Provider [phone] Jonathan Gallardo MD Unavailable Elvi Villavicencio MD Unavailable Carissa Drake MD Unavailable [phone] Devon Olea MD Unavailable [phone] Luis Whalen Sleep Disorder Unavailable [phone] Carlo Chavez MD Unavailable Reason for Referral * Rehabilitation (Routine) - New Request Specialty Diagnoses / Procedures Referred By Fito shelley Referred To Contact Cardiac Rehabilitation Diagnoses Mitral regurgitation Christa Gonzalez MD [address] [facility] [address] [place] [address] Phone: tel: fax: [facility] [address] [place] [address] Phone: tel:[phone] Referral ID Status Reason Start Date Expiration Date Visits Requested Visits Authorized [id number] New Request Specialty Services Required 07/08/2024 07/08/2025 1 1 * Other (Routine) - Closed Specialty Diagnoses / Procedures Referred By Fito shelley Referred To Contact Diagnoses Mitral regurgitation Procedures CARDIAC CATH - TRANSCATHETER MITRAL VALVE REPAIR (TMVR) Christa Gonzalez MD [address] [place] [address] Phone: tel: fax: Christa Gonzalez MD [address] [place] [address] Phone: tel: fax: Referral ID Status Reason Start Date Expiration Date Visits Re quested Visits Authorized [id number] Closed 05/23/2024 05/23/2025 1 1 Reason for Visit * Auth/Cert (Routine) Specialty Diagnoses / Procedures Referred By Fito shelley Referred To Contact [facility] Cardiac Catheterization Lab [address] [place] [address] Phone: tel: fax: [facility] Cardiac Catheterization [facility] [address] [place] [address] Phone: tel: fax: Referral ID Status Reason Start Date Expiration Date Visits Re quested Visits Authorized [id number] 1 1 Encounter Details Date Type Department Care Team (Late st Contact Info) Description 07/08/2024 5:03 AM EDT - 07/09/2024 4:40 PM EDT Hospital Encounter [facility] 4 Interventional Care Unit [address] [place] [address] Christa Gonzalez MD [address] [place] [address] Mitral regurgitation Discharge Disposition: Home or Self Care Social History Tobacco Use Types Packs/Day Years [...] the past 12 months, has t he electric, gas, oil, or water company threatened to shut off services in your [...] harm? Never 07/08/2024 How often does anyone, juany reyes family and friends, scream or curse at you? Never 07/08/2024 Housing Stability Answer Date Recorded What is your living situation today? I have a [facility] place to live 07/08/2024 Think about the [...] Do you speak a language other than Egyptian at ho [place]? No 07/08/2024 Do you want help with [...] Sign Reading Time Taken Comments Blood Pressure 103/60 07/09/2024 3:23 PM EDT Pulse 84 07/09/2024 3:23 PM EDT Temperature 37.2 C (99 F) 07/09/2024 3:23 PM EDT Respiratory Rate 20 07/09/2024 3:23 PM EDT Oxygen Saturation 94% 07/09/2024 3:23 PM EDT Inhaled Oxygen Concentration - - Weight 74.3 kg (163 lb 12.5 oz) 07/08/2024 4:52 PM EDT Height 154.9 cm (5' 0.98 ) 07/08/2024 4:52 PM ED T Body Mass Index 30.96 07/08/2024 4:52 PM EDT documented in this encounter Discharge Summaries * Jen Brian, PUBLIC ADDRESS ANNOUNCER - 07/09/2024 2:31 PM EDT Patient Name: Trinity Silvestre : 1950 Date of Admission: 07/08/2024 Date of Discharge: 07/09/2024 Primary Care Physician: Zia Moore MD Consultations: Discharge Diagnoses: Mitral regurgitation Reason for Admission: Mitral regurgitation Hospital Course: 74-year-old female with history of rheumatic heart disease and severe mitral regurgitation. She presented to the [facility] outpatient area yesterday for planned transcatheter mitral valvereplacement. The procedure was successful and without complications. She was admitted overnight forobservation. Her hospitalization was uneventful. She was evaluated today and is stable for discharge home. Procedures Performed: 07/08/2024 Percutaneous Mitral Valve Repair Successful transcatheter mitral ugsp-ur-[id number] repair (DAVID) with the use of the Rasta system (VELMA device) -Transseptal puncture as part of the procedure Discharge Medications: Your medication list START taking these medications Instructions Comments Quantity Refills aspirin 81 MG chewable tablet Start taking on: July 10, 2024 Take 1 tablet (81 mg total) by mouth daily. 0 CONTINUE taking these medications Instructions Comments Quantity Refills acetaminophen 500 MG tablet Commonly known as: TYLENOL Take 1 tablet (500 mg total) by mouth every 4 (four) hours as needed. 0 albuterol 90 mcg/actuation inhaler Inhale 2 puffs by mouth every 4 (four) hours as needed. 0 bisoprolol 5 MG tablet Commonly known as: ZEBETA Take 2 tablets (10 mg total) by mouth daily. 0 clopidogreL 75 mg tablet Commonly known as: PLAVIX Take 1 tablet (75 mg total) by mouth daily Restart on 12/26/23. 0 Dulera 200-5 mcg/actuation inhaler Generic drug: mometasone-formoterol Inhale 2 puffs by mouth 2 (two) times daily. 0 Farxiga 10 mg tablet Generic drug: dapagliflozin propanediol Take by mouth daily. 0 ferrous sulfate 325 (65 FE) MG EC tablet Take 1 tablet (325 mg total) by mouth 2 (two) times daily. 0 fluticasone propionate 50 mcg/actuation nasal spray Commonly known as: FLONASE Administer 1 spray into affected nostril(s) daily. 0 gabapentin 100 MG capsule Commonly known as: NEURONTIN Take 1 capsule (100 mg total) by mouth 2 (two) times daily. 0 levothyroxine 75 mcg capsule Commonly known as: TIROSINT Take 1 capsule (75 mcg total) by mouth daily. 0 magnesium oxide 400 mg tablet Commonly known as: MAG-OX Take 1 tablet (400 mg total) by mouth daily. 0 primidone 50 MG tablet Commonly known as: MYSOLINE Take 2 tablets (100 mg total) by mouth nightly. 0 tiotropium 18 mcg inhalation capsule Commonly known as: SPIRIVA Inhale 1 capsule (18 mcg total) by mouth daily. 0 Where to Get Your Medications You can get these medications from any pharmacy You don't need a prescription for these medications aspirin 81 MG chewable tablet Physical Exam Vitals reviewed. Constitutional: Appearance: Normal appearance. HENT: Head: Normocephalic. Eyes: Pupils: Pupils are equal, round, and reactive to light. Neck: Vascular: No carotid bruit. Cardiovascular: Rate and Rhythm: Normal rate and regular rhythm. Pulses: Normal pulses. Heart sounds: Normal heart sounds. Pulmonary: Effort: Pulmonary effort is normal. Breath sounds: Normal breath sounds. Musculoskeletal: General: No deformity. Skin: General: Skin is warm and dry. Capillary Refill: Capillary refill takes less than 2 seconds. Neurological: General: No focal deficit present. Mental Status: She is alert and oriented to person, place, and time. Psychiatric: Mood and Affect: Mood normal. Behavior: Behavior normal. Discharge Instructions Discharge Diet: Cardiac diet as tolerated. Discharge Follow UP: Contact information for follow-up [facility] Specialty: Acute Care Hospital [address] [facility] [address] Next Steps: Follow up Christa Gonzalez MD Specialty: Interventional Cardiology, Cardiology [address] [facility] [address] [place] [address] Next Steps: Follow up Instructions: 1 month Electronically signed by Jen Brian APRN, 07/09/24, 2:43 PM EDT documented in this encounter Discharge Instructions * Attachments The following attachments cannot be sent through Care Everywhere. * Mitral Valve Regurgitation (Egyptian) documented in this encounter Medications at Time [...] (400 mg total) by mouth daily. 08/08/2023 mometasone-formoter ol (Dulera) 200-5 mcg/actuation inhaler Inhale 2 puffs by mouth 2 (two) times daily. primidone (MYSOLINE) 50 MG tablet Take 2 tablets (100 mg total) by mouth nightly. 05/19/2023 tiotropium (SPIRIVA) 18 mcg inhalation capsule Inhale 1 capsule (18 mcg total) by mouth daily. aspirin 81 MG chewable tabletIndications:M itral regurgitation Take 1 tablet (81 mg total) by mouth daily. 07/10/2024 6 documented as of this encounter Progress Notes * Shiela Rivera RN - 07/08/2024 7:25 AM EDTSummary: Transfer Patient [facility] room 413 at 1355. Report given via phone to ISAC Hernandez. ISAC Hernandez met int room and together we reviewed the patients femoral sites. Z-stitches (bilateral) not to be removed until 1440. documented in this encounter H&P Notes * Lexii Pedroza APRN - 07/08/2024 5:30 AM EDT Cardiology H&P Name Trinity Silvestre, 1950, 74 y.o., female Primary Cardiology: PCP: Zia Moore MD Admit Date (Not on file) Patient Location Room/bed info not found Chief Complaint/ Reason for Consult: TMVR History of Present Illness This is a 74-year-old female that presents today for a TMVR. The patient does report SOA on exertion and mild edema. In the background the patient had a history of rheumatic fever when she was 8 years old. The patient, has had an echocardiogram that revealed mild to moderate mitral stenosis, with amean gradient of 5, and severe mitral regurgitation. The actual echo images are not available as itwas done at the different facility. The patient did have a transesophageal echo. Inpatient Medications @RRSCHEDIVMED@ Current Infusions: Current Outpatient Medications Medication Sig Dispense Refill acetaminophen (TYLENOL) 500 MG tablet Take 1 tablet (500 mg total) by mouth every 4 (four) hours asneeded. albuterol HFA (VENTOLIN HFA) 90 mcg/actuation inhaler Inhale 2 puffs by mouth every 4 (four) hours as needed. bisoprolol (ZEBETA) 5 MG tablet Take 2 tablets (10 mg total) by mouth daily. clopidogreL (PLAVIX) 75 mg tablet Take 1 tablet (75 mg total) by mouth daily Restart on 12/26/23. 0 dapagliflozin propanediol (Farxiga) 10 mg tablet Take by mouth daily. ferrous sulfate 325 (65 FE) MG EC tablet Take 1 tablet (325 mg total) by mouth 2 (two) times daily. fluticasone propionate (FLONASE) 50 mcg/actuation nasal spray Administer 1 spray into affected nostril(s) daily. gabapentin (NEURONTIN) 100 MG capsule Take 1 capsule (100 mg total) by mouth 2 (two) times daily. 0 levothyroxine (TIROSINT) 75 mcg capsule Take 1 capsule (75 mcg total) by mouth daily. magnesium oxide (MAG-OX) 400 mg (241.3 mg magnesium) tablet Take 1 tablet (400 mg total) by mouth daily. mometasone-formoterol (Dulera) 200-5 mcg/actuation inhaler Inhale 2 puffs by mouth 2 (two) times daily. primidone (MYSOLINE) 50 MG tablet Take 2 tablets (100 mg total) by mouth nightly. tiotropium (SPIRIVA) 18 mcg inhalation capsule Inhale 1 capsule (18 mcg total) by mouth daily. No current facility-administered medications for this encounter. Home Medications: Prior to Admission medications Medication Sig Start Date End Date Taking? Authorizing Provider acetaminophen (TYLENOL) 500 MG tablet Take 1 tablet (500 mg total) by mouth every 4 (four) hours asneeded. Historical Provider, albuterol HFA (VENTOLIN HFA) 90 mcg/actuation inhaler Inhale 2 puffs by mouth every 4 (four) hours as needed. Historical Provider, bisoprolol (ZEBETA) 5 MG tablet Take 2 tablets (10 mg total) by mouth daily. Historical Provider, clopidogreL (PLAVIX) 75 mg tablet Take 1 tablet (75 mg total) by mouth daily Restart on 12/26/23. 12/24/23 Yaneli Sinclair PA-C dapagliflozin propanediol (Farxiga) 10 mg tablet Take by mouth daily. Historical Provider, ferrous sulfate 325 (65 FE) MG EC tablet Take 1 tablet (325 mg total) by mouth 2 (two) times daily.Historical Provider, fluticasone propionate (FLONASE) 50 mcg/actuation nasal spray Administer 1 spray into affected nostril(s) daily. Historical Provider, gabapentin (NEURONTIN) 100 MG capsule Take 1 capsule (100 mg total) by mouth 2 (two) times daily. 12/24/23 Carissa Drake MD levothyroxine (TIROSINT) 75 mcg capsule Take 1 capsule (75 mcg total) by mouth daily. 08/09/23 Historical Provider, magnesium oxide (MAG-OX) 400 mg (241.3 mg magnesium) tablet Take 1 tablet (400 mg total) by mouth daily. 08/08/23 Historical Provider, mometasone-formoterol (Dulera) 200-5 mcg/actuation inhaler Inhale 2 puffs by mouth 2 (two) times daily. Historical Provider, primidone (MYSOLINE) 50 MG tablet Take 2 tablets (100 mg total) by mouth nightly. 05/19/23 Historical Provider, tiotropium (SPIRIVA) 18 mcg inhalation capsule Inhale 1 capsule (18 mcg total) by mouth daily. Historical Provider, senna (SENOKOT) 8.6 mg tablet Take 2 tablets (17.2 mg total) by mouth daily. 07/07/24 Historical Provider, Allergies Ciprofloxacin, Atorvastatin, Fosamax [Alendronate], Isosorbide, and Tuberculin Ppd Surgical History: Pt has a past surgical history that includes Cardiac catheterization (09/16/2023); Cholecystectomy;Hip surgery (Bilateral); Coronary stent placement; Tonsillectomy; Hysterectomy; Eye surgery (Bilateral); and laminectomy,posterior cervical prone w/fusion (N/A, 12/18/2023). Tobacco History Pt reports that she has quit smoking. Her smoking use included cigarettes. She has been exposed to tobacco smoke. She has never used smokeless tobacco. Family History Noncontributory Review of Systems Complete 10 point ROS Normal or Non-contributory except complaints described in HPI or other sections of this note. Objective Vital ranges lat 24 hours @VSRanges@ Intake and Output 24 hours: @INTAKEOUTPUTBRIEF@ Net I&O this admission: Net IO: No IO data has been entered for this period [07/07/24 7791] Physical Exam Labs: WBC Date Value Ref Range Status 07/07/2024 7.5 4.0 - 10.0 K/??L Final Hemoglobin Date Value Ref Range Status 07/07/2024 13.3 11.2 - 15.7 GM/DL Final Platelets Date Value Ref Range Status 07/07/2024 331 140 - 375 K/CU MM Final Creatinine Date Value Ref Range Status 07/07/2024 1.08 0.57 - 1.11 mg/dL Final 12/22/2023 1.11 (H) 0.55 - 1.02 mg/dL Final BUN Date Value Ref Range Status 07/07/2024 33.3 (H) 9.8 - 20.1 mg/dL Final 12/22/2023 32 (H) 7 - 22 mg/dL Final Potassium Date Value Ref Range Status 07/07/2024 4.9 3.4 - 5.1 meq/L Final Sodium Date Value Ref Range Status 07/07/2024 140 136 - 145 meq/L Final No results found for: CKTOTAL , CKMB , CKMBINDEX No results found for: BNP Imaging: Echo Results (last 7 days) No results found for the last 168 hours. Assessment and Plan Problem List: Active Problems: There are no active Hospital Problems. IMPRESSION: History of rheumatic fever Mitral valve regurgitation-severe Mitral stenosis-at least moderate Dyspnea PLAN: 07/07/24 Proceed with TMVR. The risks and benefits were discussed with the patient and she agreed to proceed. Will follow accordingly. Electronically signed by: Lexii Pedroza APRN, 07/07/2024 at 1:29 PM Cosigned by Christa Gonzalez MD at 07/08/2024 8:02 AM EDT documented in this encounter Miscellaneous Notes * Plan of Care - Zenaida Lizarraga RN - 07/09/2024 10:26 AM EDT Problem: Compromised Skin Integrity Goal: LTG - Patient will be free from infection Outcome: Progressing Goal: LTG - Patient will maintain/improve skin integrity through proper skin care techniques Outcome: Progressing Goal: LTG - Patient will demonstrate appropriate pressure relief techniques Outcome: Progressing Goal: LTG - Patient will demonstrate appropriate skin care techniques Outcome: Progressing Goal: LTG - Patient will be free from infection Outcome: Progressing Goal: STG - Patient demonstrates skin care/treatment/dressing change Outcome: Progressing Goal: STG - Patient will maintain good skin integrity Outcome: Progressing Goal: STG - Patient exhibits signs of wound healing. Outcome: Progressing Goal: STG - Patient demonstrates pressure reduction techniques Outcome: Progressing Goal: STG - Patient demonstrates preventative skin care measures Outcome: Progressing Problem: Compromised Skin Integrity Goal: LTG - Patient will be free from infection Outcome: Progressing Problem: Compromised Skin Integrity Goal: LTG - Patient will demonstrate appropriate pressure relief techniques Outcome: Progressing Problem: Safety Goal: Patient will be injury free during hospitalization Description: Assess and monitor vitals signs, neurological status including level of consciousness and orientation. Assess patient's risk for falls and implement fall prevention plan of care and interventions per hospital policy. Ensure arm band on, uncluttered walking paths in room, adequate room lighting, call light and overbed table within reach, bed in low position, wheels locked, side rails up per policy, and non-skid footwear provided. Outcome: Progressing Intervention: Provide and maintain safe environment Recent Flowsheet Documentation Taken 07/09/2024 1000 by Zenaida Lizarraga RN Side Rails/Bed Safety: 05/24 Taken 07/09/2024 0800 by Zenaida Lizarraga RN Side Rails/Bed Safety: 05/24 Intervention: Use appropriate transfer methods Recent Flowsheet Documentation Taken 07/09/2024 1000 by Zenaida Lizarraga RN Level of Assistance: Maximum assist, patient does 25-49% Taken 07/09/2024 0800 by Zenaida Lizarraga RN Level of Assistance: Maximum assist, patient does 25-49% Intervention: Ensure appropriate safety devices are available at the bedside Recent Flowsheet Documentation Taken 07/09/2024 1000 by Zenaida Lizarraga RN Safety Equipment at Bedside: O2 Regulator Suction Taken 07/09/2024 0800 by Zenaida Lizarraga RN Safety Equipment at Bedside: O2 Regulator Suction Problem: Safety Goal: Patient will be injury free during hospitalization Description: Assess and monitor vitals signs, neurological status including level of consciousness and orientation. Assess patient's risk for falls and implement fall prevention plan of care and interventions per hospital policy. Ensure arm band on, uncluttered walking paths in room, adequate room lighting, call light and overbed table within reach, bed in low position, wheels locked, side rails up per policy, and non-skid footwear provided. Outcome: Progressing Intervention: Provide and maintain safe environment Recent Flowsheet Documentation Taken 07/09/2024 1000 by Zenaida Lizarraga RN Side Rails/Bed Safety: 05/24 Taken 07/09/2024 08 by Zenaida Lizarraga RN Side Rails/Bed Safety: 05/24 Intervention: Use appropriate transfer methods Recent Flowsheet Documentation Taken 07/09/2024 1000 by Zenaida Lizarraga RN Level of Assistance: Maximum assist, patient does 25-49% Taken 07/09/2024 08 by Zenaida Lizarraga RN Level of Assistance: Maximum assist, patient does 25-49% Intervention: Ensure appropriate safety devices are available at the bedside Recent Flowsheet Documentation Taken 07/09/2024 1000 by Zenaida Lizarraga RN Safety Equipment at Bedside: O2 Regulator Suction Taken 07/09/2024 08 by Zenaida Lizarraga RN Safety Equipment at Bedside: O2 Regulator Suction Problem: Safety Goal: Patient will be injury free during hospitalization Description: Assess and monitor vitals signs, neurological status including level of consciousness and orientation. Assess patient's risk for falls and implement fall prevention plan of care and interventions per hospital policy. Ensure arm band on, uncluttered walking paths in room, adequate room lighting, call light and overbed table within reach, bed in low position, wheels locked, side rails up per policy, and non-skid footwear provided. Intervention: Provide and maintain safe environment Recent Flowsheet Documentation Taken 07/09/2024 1000 by Zenaida Lizarraga RN Side Rails/Bed Safety: 05/24 Taken 07/09/2024 08 by Zenaida Lizarraga RN Side Rails/Bed Safety: 05/24 Problem: Safety Goal: Patient will be injury free during hospitalization Description: Assess and monitor vitals signs, neurological status including level of consciousness and orientation. Assess patient's risk for falls and implement fall prevention plan of care and interventions per hospital policy. Ensure arm band on, uncluttered walking paths in room, adequate room lighting, call light and overbed table within reach, bed in low position, wheels locked, side rails up per policy, and non-skid footwear provided. Intervention: Use appropriate transfer methods Recent Flowsheet Documentation Taken 07/09/2024 1000 by Zenaida Lizarraga RN Level of Assistance: Maximum assist, patient does 25-49% Taken 07/09/2024 0800 by Zenaida Lizarraga RN Level of Assistance: Maximum assist, patient does 25-49% Problem: Safety Goal: Patient will be injury free during hospitalization Description: Assess and monitor vitals signs, neurological status including level of consciousness and orientation. Assess patient's risk for falls and implement fall prevention plan of care and interventions per hospital policy. Ensure arm band on, uncluttered walking paths in room, adequate room lighting, call light and overbed table within reach, bed in low position, wheels locked, side rails up per policy, and non-skid footwear provided. Intervention: Ensure appropriate safety devices are available at the bedside Recent Flowsheet Documentation Taken 07/09/2024 1000 by Zenaida Lizarraga RN Safety Equipment at Bedside: O2 Regulator Suction Taken 07/09/2024 0800 by Zenaida Lizarraga RN Safety Equipment at Bedside: O2 Regulator Suction Problem: Potential for Developing a Blood Clot Goal: Tissue perfusion is adequate - venous Description: Assess and monitor skin color and temperature, skin integrity, pulses, capillary refill, edema, pain in extremities, Homans' sign, labs (D- dimer), and diagnostic tests (ultrasound, CT scan, VQ scan). Monitor for signs and symptoms of deep vein thrombosis (swelling of calf/thigh, redness, pain, tenderness). Monitor for signs and symptoms of pulmonary embolism (dyspnea, tachypnea, tachycardia). Collaborate with interdisciplinary team and initiate plans and interventions as needed Outcome: Progressing Problem: Compromised Skin Integrity Goal: LTG - Patient will be free from infection Outcome: Progressing Goal: LTG - Patient will maintain/improve skin integrity through proper skin care techniques Outcome: Progressing Goal: LTG - Patient will demonstrate appropriate pressure relief techniques Outcome: Progressing Goal: LTG - Patient will demonstrate appropriate skin care techniques Outcome: Progressing Goal: LTG - Patient will be free from infection Outcome: Progressing Goal: STG - Patient demonstrates skin care/treatment/dressing change Outcome: Progressing Goal: STG - Patient will maintain good skin integrity Outcome: Progressing Goal: STG - Patient exhibits signs of wound healing. Outcome: Progressing Goal: STG - Patient demonstrates pressure reduction techniques Outcome: Progressing Goal: STG - Patient demonstrates preventative skin care measures Outcome: Progressing Problem: Pain Goal: Patient's pain/discomfort is manageable Description: Assess and monitor patient's pain using appropriate pain scale. Collaborate with interdisciplinary team and initiate plan and interventions as ordered. Re-assess patient's pain level after pain management intervention. Outcome: Progressing Problem: Safety Goal: Patient will be injury free during hospitalization Description: Assess and monitor vitals signs, neurological status including level of consciousness and orientation. Assess patient's risk for falls and implement fall prevention plan of care and interventions per hospital policy. Ensure arm band on, uncluttered walking paths in room, adequate room lighting, call light and overbed table within reach, bed in low position, wheels locked, side rails up per policy, and non-skid footwear provided. Outcome: Progressing Problem: Potential for Developing a Blood Clot Goal: Tissue perfusion is adequate - venous Description: Assess and monitor skin color and temperature, skin integrity, pulses, capillary refill, edema, pain in extremities, Homans' sign, labs (D- dimer), and diagnostic tests (ultrasound, CT scan, VQ scan). Monitor for signs and symptoms of deep vein thrombosis (swelling of calf/thigh, redness, pain, tenderness). Monitor for signs and symptoms of pulmonary embolism (dyspnea, tachypnea, tachycardia). Collaborate with interdisciplinary team and initiate plans and interventions as needed Outcome: Progressing Problem: Daily Care Goal: Daily care needs are met Description: Assess and monitor ability to perform self care and identify potential discharge needs. Outcome: Progressing Problem: Potential for Infection Goal: Remains infection free Description: Assess and monitor vital signs, skin (color, moisture, integrity, turgor), respiratorystatus, urinary and gastrointestinal status, and labs (WBC, cultures). Administer antibiotics and antipyretics as ordered. Ensure aseptic care of all intravenous lines, invasive tubes/drains and wounds. Monitor for signs and symptoms of infection (redness, warmth, discharge, increased body temperature). Wash hands properly before and after each patient care activity. Follow isolation guidelines per hospital protocol/policy. Collaborate with interdisciplinary team and initiate plan and interventions as ordered. Outcome: Progressing Problem: Psychosocial Needs Goal: Demonstrates ability to cope with hospitalization/illness Description: Assess and monitor patients ability to cope with his/her illness. Outcome: Progressing Goal: Collaborate with patient/family/caregiver to identify patient specific goals for this hospitalization Outcome: Progressing Problem: Anxiety Goal: Anxiety is at manageable level Description: Assess and monitor patient's anxiety level. Monitor for signs and symptoms of anxiety both physical and emotional (heart palpitations, chest pain, shortness of breath, headaches, nausea,feeling jumpy, restlessness, irritable, apprehensive). Collaborate with interdisciplinary team and initiate plan and interventions as ordered. Outcome: Progressing Problem: Inadequate Coping Goal: Demonstrates ability to cope effectively Description: Patient is able to verbalize feelings related to emotional state. Outcome: Progressing Goal: Verbalizes adaptive coping mechanisms Description: Able to verbalize adaptive coping mechanisms such as physical activity, distraction, and deep breathing exercises. Outcome: Progressing Goal: Verbalizes personal strengths Description: Spend time with the patient using empathy and active listening skills. Outcome: Progressing Problem: Progressive Mobility Goal: BMAT Level 1 - With full mechanical lifting assistance: Outcome: Progressing Goal: BMAT Level 2 - With 2-person and/or mechanical lifting assistance: Outcome: Progressing Goal: BMAT Level 3 - With 1 to 2-person and/or mechanical lifting assistance: Outcome: Progressing Goal: BMAT Level 4 - With 1-person assistance or mobility aid as needed (walker, cane, crutches): Outcome: Progressing Problem: Discharge Barriers Goal: Patient's discharge needs are met Description: Collaborate with interdisciplinary team and initiate plans and interventions as needed. Outcome: Progressing * Plan of Care - Tiffany Aceves RN - 07/09/2024 1:12 AM EDT Problem: Compromised Skin Integrity Goal: LTG - Patient will be free from infection Outcome: Progressing Goal: LTG - Patient will maintain/improve skin integrity through proper skin care techniques Outcome: Progressing Goal: LTG - Patient will demonstrate appropriate pressure relief techniques Outcome: Progressing Goal: LTG - Patient will demonstrate appropriate skin care techniques Outcome: Progressing Goal: LTG - Patient will be free from infection Outcome: Progressing Goal: STG - Patient demonstrates skin care/treatment/dressing change Outcome: Progressing Goal: STG - Patient will maintain good skin integrity Outcome: Progressing Goal: STG - Patient exhibits signs of wound healing. Outcome: Progressing Goal: STG - Patient demonstrates pressure reduction techniques Outcome: Progressing Goal: STG - Patient demonstrates preventative skin care measures Outcome: Progressing Problem: Pain Goal: Patient's pain/discomfort is manageable Description: Assess and monitor patient's pain using appropriate pain scale. Collaborate with interdisciplinary team and initiate plan and interventions as ordered. Re-assess patient's pain level after pain management intervention. Outcome: Progressing Problem: Safety Goal: Patient will be injury free during hospitalization Description: Assess and monitor vitals signs, neurological status including level of consciousness and orientation. Assess patient's risk for falls and implement fall prevention plan of care and interventions per hospital policy. Ensure arm band on, uncluttered walking paths in room, adequate room lighting, call light and overbed table within reach, bed in low position, wheels locked, side rails up per policy, and non-skid footwear provided. Outcome: Progressing Problem: Potential for Developing a Blood Clot Goal: Tissue perfusion is adequate - venous Description: Assess and monitor skin color and temperature, skin integrity, pulses, capillary refill, edema, pain in extremities, Homans' sign, labs (D- dimer), and diagnostic tests (ultrasound, CT scan, VQ scan). Monitor for signs and symptoms of deep vein thrombosis (swelling of calf/thigh, redness, pain, tenderness). Monitor for signs and symptoms of pulmonary embolism (dyspnea, tachypnea, tachycardia). Collaborate with interdisciplinary team and initiate plans and interventions as needed Outcome: Progressing Problem: Daily Care Goal: Daily care needs are met Description: Assess and monitor ability to perform self care and identify potential discharge needs. Outcome: Progressing Problem: Potential for Infection Goal: Remains infection free Description: Assess and monitor vital signs, skin (color, moisture, integrity, turgor), respiratorystatus, urinary and gastrointestinal status, and labs (WBC, cultures). Administer antibiotics and antipyretics as ordered. Ensure aseptic care of all intravenous lines, invasive tubes/drains and wounds. Monitor for signs and symptoms of infection (redness, warmth, discharge, increased body temperature). Wash hands properly before and after each patient care activity. Follow isolation guidelines per hospital protocol/policy. Collaborate with interdisciplinary team and initiate plan and interventions as ordered. Outcome: Progressing Problem: Psychosocial Needs Goal: Demonstrates ability to cope with hospitalization/illness Description: Assess and monitor patients ability to cope with his/her illness. Outcome: Progressing Goal: Collaborate with patient/family/caregiver to identify patient specific goals for this hospitalization Outcome: Progressing Problem: Anxiety Goal: Anxiety is at manageable level Description: Assess and monitor patient's anxiety level. Monitor for signs and symptoms of anxiety both physical and emotional (heart palpitations, chest pain, shortness of breath, headaches, nausea,feeling jumpy, restlessness, irritable, apprehensive). Collaborate with interdisciplinary team and initiate plan and interventions as ordered. Outcome: Progressing Problem: Inadequate Coping Goal: Demonstrates ability to cope effectively Description: Patient is able to verbalize feelings related to emotional state. Outcome: Progressing Goal: Verbalizes adaptive coping mechanisms Description: Able to verbalize adaptive coping mechanisms such as physical activity, distraction, and deep breathing exercises. Outcome: Progressing Goal: Verbalizes personal strengths Description: Spend time with the patient using empathy and active listening skills. Outcome: Progressing Problem: Progressive Mobility Goal: BMAT Level 1 - With full mechanical lifting assistance: Outcome: Progressing Goal: BMAT Level 2 - With 2-person and/or mechanical lifting assistance: Outcome: Progressing Goal: BMAT Level 3 - With 1 to 2-person and/or mechanical lifting assistance: Outcome: Progressing Goal: BMAT Level 4 - With 1-person assistance or mobility aid as needed (walker, cane, crutches): Outcome: Progressing Problem: Discharge Barriers Goal: Patient's discharge needs are met Description: Collaborate with interdisciplinary team and initiate plans and interventions as needed. Outcome: Progressing documented in this encounter Plan of Treatment Scheduled Referrals Name Type Priority Associated Diagnoses Orde r Schedule Ambulatory Referral to Cardiac Rehab Outpatient Referral Routine Mitral regurgitation Expected: 07/08/2024, Expires: 07/08/2025 documented as of this encounter Procedures Procedure Name Priority Date/Time Associated Diagnosis Comments NOVA GLUCOSE POC Routine 07/09/2024 11:2 0 AM EDT ECHO COMPLETE (DOPPLER / COLOR) WO CONTRAST Routine 07/09/2024 10:37 AM EDT NOVA GLUCOSE POC Routine 07/09/2024 7:55 AM EDT FS_MODEL_IP_ECG 12-LEAD Routine 07/09/2024 5:49 AM EDT CBC HEMOGRAM (SJ-BKR) Routine 07/09/2024 5:25 AM EDT BASIC METABOLIC PANEL Routine 07/09/2024 5:24 AM EDT NOVA GLUCOSE POC Routine 07/08/2024 8:10 PM EDT NOVA GLUCOSE POC Routine 07/08/2024 4:31 PM EDT CARDIAC CATH - TRANSCATHETER MITRAL VALVE REPAIR (TMVR) Routine 07/08/2024 9:54 AM EDT Mitral regurgitation POCT-ACT Routine 07/08/2024 9:14 AM EDT URINALYSIS W/ MICROSCOPIC STAT 07/08/2024 6:24 AM EDT ANTIBODY IDENTIFICATION ([place] BKR) Routine 07/08/2024 6:13 AM EDT TYPE AND SCREEN ([place] BKR) STAT 07/08/2024 6:13 AM EDT EKG-SCANNED 07/08/2024 documented in this encounter Results * (ABNORMAL) Glucose, Nova Meter (07/09/2024 11:20 AM EDT) POC-GLUCOSE 150(H) 70 - 110 mg/dL 07/09/2024 11:23 AM EDT [facility] Comment: In the event of poor peripheral blood flow, venous or arterial blood should be used due to the potential of erroneous results. Notified Nurse RBV Cooker Syrup [id number] 07/09/2024 11:23 AM EDT [facility] Blood WHOLE BLOOD / Unknown 07/09/2024 11:20 AM EDT 07/09/2024 11:23 AM EDT Narrative [facility] - 07/09/2024 11:23 AM EDT Cooker Syrup ID is - [id number] us Christa Gonzalez MD POINT OF CARE TEST ORDERABLES F inal Result [facility] [address] [place] [address] * ECHO COMPLETE (DOPPLER / COLOR) WO CONTRAST (07/09/2024 10:37 AM EDT) Anatomical Region Laterality Modality Heart Vascular Ultraso und 07/09/2024 10:0 5 AM EDT Narrative 07/11/2024 2:26 PM EDT TRANSTHORACIC ECHOCARDIOGRAPHY REPORT Demographics Patient Name: BRYAN RICCI : 1950 HUM[birth year] Age: 74 year(s) Corporate ID Number: [id number] Gender Female Tracing Lathe Set Up Operator: Noe LYONS Height: 60 inches Referring Physician: CHRISTA GONZALEZ MD Weight: 163 pounds Interpreting ANA ROSA CLARKE DO BMI: 31.83 kg/m^2 Physician: Date of Service: 07/09/2024 Blood Pressure: 125/54 mmHg Type of Study: TTE procedure: ECHO COMPLETE (DOPPLER / COLOR) W OR WO CONTRAST. Patient Status: Routine [facility] History/Tech Notes: Indication: S/P mitraclip Z95.2 Impression: ######################################## Normal sized left ventricle. Mild left ventricular hypertrophy. Visually estimated ejection fraction 50% +/- 5%. Abnormal systolic strain pattern. Indeterminate diastolic function. S/P Mitraclip Unable to obtain PISA due to being unable to trace MR CW doppler. Peak/ Mean P.81mmHg/8.56mmHg. MVA: 2.3cm2. PHT: 95ms ###################################### Measurements Summary: LVEDd: 4.04 cm LVESd: 3.01 cm IVSEd: 1.04 cm AO Root:2.68 cm LVPWd: 1.03 cm Contractility Score Normal Left Ventricular contractility was noted. LV regional wall motion: (0-Not visualized 1-Normal 2-Hypokinesis 3-Akinesis 4-Dyskinesis 5-Aneurysm) Left Ventricle Peak E-wave: 1.32 Peak A-wave: 2.01 m/s E/A ratio: 0.66 m/s Volume [id number] LV length: 7.13 cm ml Volume uthnfsnb22.36 ml LVOT diameter: 1.99 cm Normal sized left ventricle. Mild left ventricular hypertrophy. Visually estimated ejection fraction 50% +/- 5%. Abnormal systolic strain pattern. Indeterminate diastolic function. No left ventricular masses or thrombi. Right Ventricle Diastolic dimension: 3.24 RV systolic pressure: 39.91 mmHg cm Normal sized right ventricle. Normal TAPSE c/w normal right ventricular function Left Atrium LA dimension: 3.2 cm LA volume:53.36 ml LA/Aorta: 1.19 Normal sized left atrium. Normal left atrial volume index 31.20 ml/m^2. No atrial mass or thrombus. Right Atrium Normal sized right atrium. No atrial mass or thrombus. Mitral Valve Deceleration time: Area PHT: 2.31 cm^2 Mean velocity: 1.35 292.8 msec P1/2t: 95.33 msec m/s Area (continuity): Mean gradient: 8.56 0.95 cm^2 mmHg Peak gradient: 22.81 mmHg S/P Mitraclip Unable to obtain PISA due to being unable to trace MR CW doppler. Peak/ Mean P.81mmHg/8.56mmHg. MVA: 2.3cm2. PHT: 95ms Difficult to assess, appears Mild(1+) mitral regurgitation. No mitral stenosis. No masses or vegetations seen. Aortic Valve LVOT VTI: 15.26 cm Three cusped aortic valve Mildly thickend free edges of the aortic valve leaflets. No aortic regurgitation. No aortic stenosis. No masses or vegetations seen. Tricuspid Valve TR velocity: 3.04 m/s TR gradient: 36.18388 mmHg Estimated RAP: 3 mmHg RVSP: 39.91 mmHg Structurally normal tricuspid valve. Mild(1+) tricuspid regurgitation. No tricuspid stenosis. No masses or vegetations seen. Pulmonic Valve Acceleration time: 125.59 msec PASP: 39.91 mmHg Structurally normal pulmonic valve. No pulmonic regurgitation. No pulmonic stenosis. No masses or vegetations seen. Great Vessels Aorta Aortic Root: 2.68 cm LVOT Diameter: 1.99 cm Visualized thoracic aorta is normal. Normal aortic root. No evidence of dissection. Normal IVC with appropriate collapse. Pericardium / Pleura No pericardial effusion. Procedure Note Ana Rosa Clarke DO - 07/11/2024 TRANSTHORACIC ECHOCARDIOGRAPHY REPORT Demographics Patient Name: BRYAN AUGUST : 1950 HUMBLE Age: 74 year(s) Corporate ID Number: [id number] Gender Female Tracing Lathe Set Up Operator: Noe LYONS Height: 60 inches Referring Physician: CHRISTA GONZALEZ MD Weight: 163 pounds Interpreting ANA ROSA CLARKE DO BMI: 31.83kg/m^2 Physician: Date of Service: 07/09/2024 Blood Pressure: 125/54mmHg Type of Study: TTE procedure: ECHO COMPLETE (DOPPLER / COLOR) W OR WO CONTRAST. Patient Status: Routine IP Study Location: [facility] Quality: Adequate visualization History/Tech Notes: Indication: S/P mitraclip Z95.2 Impression: ######################################## Normal sized left ventricle. Mild left ventricular hypertrophy. Visually estimated ejection fraction 50% +/- 5%. Abnormal systolic strain pattern. Indeterminate diastolic function. S/P Mitraclip Unable to obtain PISA due to being unable to trace MR CW doppler. Peak/ Mean P.81mmHg/8.56mmHg. MVA: 2.3cm2. PHT: 95ms ###################################### Measurements Summary: LVEDd: 4.04 cm LVESd: 3.01 cm IVSEd: 1.04 cm AO Root:2.68 cm LVPWd: 1.03 cm Contractility Score Normal Left Ventricular contractility was noted. LV regional wall motion: (0-Not visualized 1-Normal 2-Hypokinesis 3-Akinesis 4-Dyskinesis 5-Aneurysm) Left Ventricle Peak E-wave: 1.32 Peak A-wave: 2.01 m/s E/A ratio: 0.66 m/s Volume [id number] LV length: 7.13 cm ml Volume mzatttyz75.36 ml LVOT diameter: 1.99 cm Normal sized left ventricle. Mild left ventricular hypertrophy. Visually estimated ejection fraction 50% +/- 5%. Abnormal systolic strain pattern. Indeterminate diastolic function. No left ventricular masses or thrombi. Right Ventricle Diastolic dimension: 3.24 RV systolic pressure: 39.91 mmHg cm Normal sized right ventricle. Normal TAPSE c/w normal right ventricular function Left Atrium LA dimension: 3.2 cm LA volume:53.36 ml LA/Aorta: 1.19 Normal sized left atrium. Normal left atrial volume index 31.20 ml/m^2. No atrial mass or thrombus. Right Atrium Normal sized right atrium. No atrial mass or thrombus. Mitral Valve Deceleration time: Area PHT: 2.31 cm^2 Mean velocity: 1.35 292.8 msec P1/2t: 95.33 msec m/s Area (continuity): Mean gradient: 8.56 0.95 cm^2 mmHg Peak gradient: 22.81 mmHg S/P Mitraclip Unable to obtain PISA due to being unable to trace MR CW doppler. Peak/ Mean P.81mmHg/8.56mmHg. MVA: 2.3cm2. PHT: 95ms Difficult to assess, appears Mild(1+) mitral regurgitation. No mitral stenosis. No masses or vegetations seen. Aortic Valve LVOT VTI: 15.26 cm Three cusped aortic valve Mildly thickend free edges of the aortic valve leaflets. No aortic regurgitation. No aortic stenosis. No masses or vegetations seen. Tricuspid Valve TR velocity: 3.04 m/s TR gradient: 36.98270 mmHg Estimated RAP: 3 mmHg RVSP: 39.91 mmHg Structurally normal tricuspid valve. Mild(1+) tricuspid regurgitation. No tricuspid stenosis. No masses or vegetations seen. Pulmonic Valve Acceleration time: 125.59 msec PASP: 39.91 mmHg Structurally normal pulmonic valve. No pulmonic regurgitation. No pulmonic stenosis. No masses or vegetations seen. Great Vessels Aorta Aortic Root: 2.68 cm LVOT Diameter: 1.99 cm Visualized thoracic aorta is normal. Normal aortic root. No evidence of dissection. Normal IVC with appropriate collapse. Pericardium / Pleura No pericardial effusion. Christa Gonzalez MD CV ECHO ORDERABLES Final Result * Glucose, Nova Meter (07/09/2024 7:55 AM EDT) POC-GLUCOSE 96 70 - 110 mg/dL 07/09/2024 7:58 AM EDT [facility] Comment: In the event of poor peripheral blood flow, venous or arterial blood should be used due to the potential of erroneous results. Notified Nurse RBV Cooker Syrup [id number] 07/09/2024 7:58 AM EDT [facility] Blood WHOLE BLOOD / Unknown 07/09/2024 7:55 AM EDT 07/09/2024 7:58 AM EDT Narrative [facility] - 07/09/2024 7:58 AM EDT Cooker Syrup ID is - [id number] Christa Gonzalez MD POINT OF CARE TEST ORDERABLES F inal Result Performing Organization Address [facility]/ZIP Co de Phone Number [facility] [address] [phone] * ECG 12 lead (07/09/2024 5:49 AM EDT) VENTRICULAR RATE EKG/MIN 89 BPM GE MUSE ATRIAL RATE (MCT) 89 BPM GE MUSE [place] Interval 142 ms GE MUSE QRS-INTERVAL (MSEC) 86 ms GE MUSE QT Interval 370 ms GE MUSE QTC Interval 450 ms GE MUSE P [place] 69 degrees GE MUSE R AXIS (MCT) 43 degrees GE MUSE T Wave [place] 109 degrees GE MUSE [place] Diagnosis Normal sinus rhythm Cannot rule out Inferior infarct , age undetermined Confirmed by ERNIE RIOS M.D. ([id number]) on 07/11/2024 5:30:44 PM GE MUSE 07/09/2024 5:49 AM EDT 07/11/2024 5:30 PM EDT us Christa Gonzalez MD ECG ORDERABLES Final Result Performing Organization Address [facility] Co de Phone Number GE MUSE * (ABNORMAL) CBC (Hemogram only) (07/09/2024 5:25 AM EDT) Pathologist [facility] WBC 8.7 4.0 - 10.0 K/ L 07/09/2024 6:02 AM EDT [facility] RBC 3.44(L) 3.93 - 5.22 M/ L 07/09/2024 6:02 AM EDT [facility] Hemoglobin 10.8(L) 11.2 - 15.7 GM/DL 07/09/2024 6:02 AM EDT [facility] Hematocrit 34.9 34.1 - 44.9 % 07/09/2024 6:02 AM EDT [facility] MCV 102(H) 79 - 95 fL 07/09/2024 6:02 AM EDT [facility] MCH 31.4 25.6 - 32.2 pg 07/09/2024 6:02 AM EDT [facility] MCHC 30.9(L) 32.2 - 35.5 GM/DL 07/09/2024 6:02 AM EDT [facility] RDW 13.4 11.7 - 14.4 % 07/09/2024 6:02 AM EDT [facility] Platelets 236 140 - 375 K/CU MM 07/09/2024 6:02 AM EDT [facility] MPV 9.4 9.4 - 12.3 fL 07/09/2024 6:02 AM EDT [facility] Blood Venipuncture / Unknown 07/09/2024 5:25 AM EDT 07/09/2024 5:35 AM EDT us Christa Gonzalez MD LAB BLOOD ORDERABLES Final Resu lt [facility] [address] [phone] * (ABNORMAL) Basic Metabolic Panel (07/09/2024 5:24 AM EDT) Sodium 137 136 - 145 meq/L 07/09/2024 6:08 AM EDT [facility] Potassium 4.7 3.4 - 5.1 meq/L 07/09/2024 6:08 AM EDT [facility] CO2 21(L) 22 - 29 meq/L 07/09/2024 6:08 AM EDT [facility] Chloride 107 98 - 112 meq/L 07/09/2024 6:08 AM EDT [facility] Glucose 111 82 - 115 mg/dL 07/09/2024 6:08 AM EDT [facility] BUN 32.7(H) 9.8 - 20.1 mg/dL 07/09/2024 6:08 AM EDT [facility] Creatinine 1.12(H) 0.57 - 1.11 mg/dL 07/09/2024 6:08 AM EDT [facility] BUN/Creatinine 29(H) 8 - 20 07/09/2024 6:08 AM EDT [facility] Calcium 8.5 8.4 - 10.2 mg/dL 07/09/2024 6:08 AM EDT [facility] Anion Gap 14(H) 4 - 12 07/09/2024 6:08 AM EDT [facility] eGFR (mL/min/1.73m2) 52(L) >=60 mL/min/1.7 3m2 07/09/2024 6:08 AM EDT [facility] Osmolality Calc 281.7 mOsm/kg 6:08 AM EDT [facility] Blood Venipuncture / Unknown 07/09/2024 5:24 AM EDT 07/09/2024 5:30 AM EDT Christa Gonzalez MD LAB BLOOD ORDERABLES Final Resu lt Performing Organization Address [facility] Co de Phone Number [facility] [address] [place] [address], [facility] [phone] * (ABNORMAL) Glucose, Nova Meter (07/08/2024 8:10 PM EDT) [facility] POC-GLUCOSE 155(H) 70 - 110 mg/dL 07/08/2024 8:12 PM EDT [facility] Comment: In the event of poor peripheral blood flow, venous or arterial blood should be used due to the potential of erroneous results. Notified Nurse RBV Cooker Syrup [id number] 07/08/2024 8:12 PM EDT [facility] Blood WHOLE BLOOD / Unknown 07/08/2024 8:10 PM EDT 07/08/2024 8:12 PM EDT Narrative [facility] - 07/08/2024 8:12 PM EDT Cooker Syrup ID is - [id number] Christa Gonzalez MD POINT OF CARE TEST ORDERABLES F inal Result Performing Organization Address [facility]/ZIP Co de Phone Number [facility] [address] [place] [address], [facility] [phone] * (ABNORMAL) Glucose, Nova Meter (07/08/2024 4:31 PM EDT) POC-GLUCOSE 144(H) 70 - 110 mg/dL 07/08/2024 4:36 PM EDT [facility] Comment: In the event of poor peripheral blood flow, venous or arterial blood should be used due to the potential of erroneous results. Notified Nurse RBV Cooker Syrup [id number] 07/08/2024 4:36 PM EDT [facility] Blood WHOLE BLOOD / Unknown 07/08/2024 4:31 PM EDT 07/08/2024 4:36 PM EDT Narrative [facility] - 07/08/2024 4:36 PM EDT Cooker Syrup ID is - [id number] Christa Gonzalez MD POINT OF CARE TEST ORDERABLES F inal Result Performing Organization Address City/State/[facility] Co de Phone Number [facility] [address] [phone] * CARDIAC CATH - TRANSCATHETER MITRAL VALVE REPAIR (TMVR) (07/08/2024 9:54 AM EDT) Anatomical Region Laterality Modality Heart Other 07/08/2024 8:42 AM EDT Narrative 07/08/2024 1:26 PM EDT Cardiac Diagnostic Report Demographics Patient Name August Date of 1950 HUMBLE Patient # [id number] Medical Record # Physician CHRISTA GONZALEZ MD Date of Study 07/08/2024 NIELS LAURA MD Referring Interventional Physician physician Procedure Procedure Type Diagnostic procedure: Miscellaneous: Percutaneous Mitral Valve Repair Conclusions Procedure Description DAVID - Rasta Procedure (The patient will be included in the STS/ACC TVT [place] with NCDR sponsored by the the [employer] (NCT# [id number]) -Successful transcatheter mitral hdio-gt-xeqh repair (DAVID) with the use of the Rasta system (VELMA device) -Transseptal puncture as part of the procedure Cooker Syrup : Christa Gonzalez MD Procedure note: 1. The patient was brought to the cardiac catheterization lab and placed under general anesthesia. Endotracheal intubation was initiated. Anesthesia placed central venous access and arterial line monitoring and initiated the transesophageal echo. TOBY images were reviewed again just prior to the procedure. 2. A sheath was inserted in the Rt femoral vein. This was exchanged for a Sanabria sheath and dilator inserted over a long wire to the superior vena cava. A Transseptal puncture was then performed and the transeptal sheath was exchanged for the delivery sheath system after heparin was given and theraputic ACT was confirmed. 3- The Rasta Device was then advanced and under TOBY and Flourscopic guidenace was advanced and positioned on the atrial side of the Mitral Valve and positioning and trajectory were confirmed then the device was dvanced below the valve and then withdrawn and under echocardiographic guidance used to grasp the mitral leaflets. The leaflets were clasped to obtain optimal leaflet insertion and optimal position of the clip for the maximal amount of MR reduction. When this was achieved, the MR and transmitral gradient assessments were made and determined to be acceptable. The device was released. The clip delivery system was withdrawn into the steerable guide after reducing the curve on the system and the steerable guide was withdrawn back across the septum into the right atrium and subsequently into the inferior vena cava. A Z-stitch closure was applied, and the steerable guide was removed completely. Z-stitch closure and manual compression was held to achieve hemostasis. Recommendations Continue medical management and risk factor modification. Procedure Data Procedure Date Date: 07/08/2024Start: 08:42End: 09:59 Entry Locations - Antegrade Percutaneous access was performed through the Left Femoral artery. A 4 Fr sheath was inserted. Unsuccessful closure attempt was performed using: Suture. Hemostasis was successfully obtained using Manual Compression. - Antegrade Percutaneous access was performed through the Left Femoral vein. A 6 Fr sheath was inserted. Hemostasis was successfully obtained using Suture. - Antegrade Percutaneous access was performed through the Right Femoral vein. A 8 Fr sheath was inserted. Hemostasis was successfully obtained using Suture. Contrast Material - None0 ml Fluoroscopy Time: Total: 9:42 minutes. Fluoroscopy Dose: Total: 105 mGy. Estimated Blood Loss: 5 ml. Hemodynamics Condition: Baseline Heart Rate: 63 bpm Signatures Procedure Note Christa Gonzalez MD - 07/08/2024 Cardiac Diagnostic Report Demographics Patient Name BRYAN AUGUST Date of Birth1950 [place] Patient # [id number] Medical Record # Physician CHRISTA GOZNALEZ MD Date of Study07/08/2024 NIELS LAURA MD Referring Interventional Physician physician Procedure Procedure Type Diagnostic procedure: Miscellaneous: Percutaneous Mitral Valve Repair Conclusions Procedure Description DAVID - Rasta Procedure (The patient will be included in the STS/ACC TVT [place] with NCDR sponsored by the the [employer] (NCT# [id number]) -Successful transcatheter mitral jxnp-ds-vhof repair (DAVID) with the useof the Rasta system (VELMA device) -Transseptal puncture as part of the procedure Cooker Syrup : Christa Gonzalez MD Procedure note: 1. The patient was brought to the cardiac catheterization lab and placed under general anesthesia. Endotracheal intubation was initiated. Anesthesia placed central venous access and arterial line monitoring and initiated the transesophageal echo. TOBY images were reviewed again just prior to the procedure. 2. A sheath was inserted in the Rt femoral vein. This was exchanged for a Sanabria sheath and dilator inserted over a long wire to the superior vena cava. A Transseptal puncture was then performed and the transeptal sheath was exchanged for thedelivery sheath system after heparin was given and theraputic ACT was confirmed. 3- The Rasta Device was then advanced and under TOBY and Flourscopic guidenace was advanced and positioned on the atrial side of the MitralValve and positioning and trajectory were confirmed then the device wasdvanced below the valve and then withdrawn and under echocardiographic guidanceused to grasp the mitral leaflets. The leaflets were clasped to obtainoptimal leaflet insertion and optimal position of the clip for the maximal amount of MR reduction. When this was achieved, the MR and transmitral gradient assessments were made and determined to be acceptable. The device was released. The clip delivery system was withdrawn into the steerableguide after reducing the curve on the system and the steerable guide waswithdrawn back across the septum into the right atrium and subsequently into the inferior vena cava. A Z-stitch closure was applied, and the steerableguide was removed completely. Z-stitch closure and manual compression was heldto achieve hemostasis. Recommendations Continue medical management and risk factor modification. Procedure Data Procedure Date Date: 07/08/2024Start: 08:42End: 09:59 Entry Locations - Antegrade Percutaneous access was performed through the Left Femoral artery. A 4 Fr sheath was inserted. Unsuccessful closure attempt was performed using: Suture. Hemostasis was successfully obtained using Manual Compression. - Antegrade Percutaneous access was performed through the Left Femoral vein. A 6 Fr sheath was inserted. Hemostasis was successfullyobtained using Suture. - Antegrade Percutaneous access was performed through the RightFemoral vein. A 8 Fr sheath was inserted. Hemostasis was successfullyobtained using Suture. Contrast Material - None0 ml Fluoroscopy Time: Total: 9:42 minutes. Fluoroscopy Dose: Total: 105 mGy. Estimated Blood Loss: 5 ml. Hemodynamics Condition: Baseline Heart Rate: 63 bpm Signatures Christa Gonzalez MD CV CARDIAC CATH ORDERABLES Colleen lowry Result * (ABNORMAL) POC ACTIVATED CLOTTING TIME (07/08/2024 9:14 AM EDT) Activated Clotting Time 383(H) 74 - 137 sec 07/08/2024 12:06 PM EDT [facility] Cooker Syrup [id number] 07/08/2024 12:06 PM EDT [facility] Blood 07/08/2024 9:14 AM EDT 07/08/2024 12:06 PM EDT Narrative [facility] - 07/08/2024 12:06 PM EDT Cooker Syrup ID is - [id number] us Christa Gonzalez MD POINT OF CARE TEST ORDERABLES F inal Result [facility] [address] [phone] * (ABNORMAL) Urinalysis w/Microscopic (07/08/2024 6:24 AM EDT) Color, UA Light Yellow 07/08/2024 6:33 AM EDT [facility] Clarity, UA Turbid(A) Clear 07/08/2024 6:33 AM EDT [facility] Specific [place], UA 1.020 1.005 - 1.030 07/08/2024 6:33 AM EDT [facility] pH, UA 6.5 6.0 - 8.0 07/08/2024 6:33 AM EDT [facility] Leukocytes, UA 250 Leanne/uL(A) Negative 07/08/2024 6:33 AM EDT [facility] Nitrite, UA Negative Negative 07/08/2024 6:33 AM EDT [facility] Protein, UA Negative Negative 07/08/2024 6:33 AM EDT [facility] Glucose, UA 4+(A) Normal 07/08/2024 6:33 AM EDT [facility] Ketones, UA Negative Negative 07/08/2024 6:33 AM EDT [facility] Urobilinogen, UA Normal Normal 07/08/2024 6:33 AM EDT [facility] Bilirubin, UA Negative Negative 07/08/2024 6:33 AM EDT [facility] Blood, UA Negative Negative 07/08/2024 6:33 AM EDT [facility] RBC, UA 0-2(A) None Seen /HPF 07/08/2024 6:33 AM EDT [facility] WBC, UA 21-50(A) None Seen /HPF 07/08/2024 6:33 AM EDT [facility] Bacteria, UA 2+(A) None Seen, Trace 07/08/2024 6:33 AM EDT [facility] SQUAMOUS EPITHELIAL 0-2(A) None Seen /HPF 07/08/2024 6:33 AM EDT [facility] Specimen Source Urine, Clean Catch 07/08/2024 6:33 AM EDT [facility] Urine URINE SPECIMEN COLLECTION, CLEAN CATCH / Unknown 07/08/2024 6:24 AM EDT 07/08/2024 6:24 AM EDT Christa Gonzalez MD URINE ORDERABLES Final Result [facility] [address] [phone] * Antibody Identification (07/08/2024 6:13 AM EDT) Antibody Identification Anti-E 07/08/2024 9:45 AM EDT [facility] ([place]) Blood Venipuncture / Unknown 07/08/2024 6:13 AM EDT 07/08/2024 6:16 AM EDT Christa Gonzalez MD [facility] TEST ORDERABLES Final Result [facility] ([place]) [address] [phone] * (ABNORMAL) Type and Screen (07/08/2024 6:13 AM EDT) ABO/Rh O Positive 07/08/2024 5:58 AM EDT [facility] ([place]) Antibody Screen Positive(A) 07/08/2024 5:58 AM EDT [facility] ([place]) HISTCHK HIST CHECK PERFORMED 07/08/2024 5:58 AM EDT [facility] ([place]) Blood Venipuncture / Unknown 07/08/2024 6:13 AM EDT 07/08/2024 6:16 AM EDT Christa Gonzalez MD [facility] TEST ORDERABLES Edited Result - Final [facility] ([place]) [address] [place] [address], [facility] [phone] * EKG-SCANNED (07/08/2024) Narrative 07/08/2024 Ordered by an unspecified provider. us Default Scanning Provider SCAN ORDERS Final Result documented in this encounter Visit Diagnoses Diagnosis Mitral regurgitation- Primary Mitral valve disorders documented in this encounter Admitting Diagnoses Diagnosis Mitral regurgitation Mitral valve disorders documented in this encounter Administered Medications Inactive Administered Medications - up to 3 most recent administrations Medication Order MAR Action Action Date Dose Rate Site arformoteroL (BROVANA) nebulizer solution 15 mcg 15 mcg 2 times daily (RT), nebulization, First dose on Thu07/08/24 at 1999, RESPIRATORY THERAPY TREATMENT F/S FOR DULERA-GIVE WITH BUDESONIDE, What is the respiratory therapy Modality? Small volume Nebulization Given 07/09/2024 8:33 AM EDT 15 mcg Given 07/08/2024 9:47 PM EDT 15 mcg aspirin chewable tablet 81 mg 81 mg Daily, oral, First dose on 07/09/24 at 0900Indications:Mitral regurgitation Given 07/09/2024 8:45 AM EDT 81 m g bisoprolol (ZEBETA) tablet 10 mg 10 mg Daily, oral, First dose on 07/09/24 at 0900Indications:Mitral regurgitation Given 07/09/2024 8:45 AM EDT 10 m g budesonide (PULMICORT) nebulizer suspension 0.5 mg 0.5 mg 2 times daily (RT), nebulization, First dose on Thu07/08/24 at 2000, F/S FOR DULERA-GIVE WITH BROVANA *RESPIRATORY THERAPY TREATMENT*, What is the respiratory therapy Modality? Small volume Nebulization Given 07/09/2024 8:33 AM EDT 0.5 mg Given 07/08/2024 9:50 PM EDT 0.5 mg clopidogreL (PLAVIX) tablet 75 mg 75 mg Daily, oral, First dose on Thu07/09/24 at 0900, Look-alike/Sound-alike medicationIndications:Mitral regurgitation Given 07/09/2024 8:45 AM EDT 75 mg dapagliflozin propanediol (FARXIGA) tablet 10 mg 10 mg Daily, oral, First dose on Thu07/08/24 at 1200, Is the patient scheduled for surgery in the next 3 days? Yes It is strongly recommended to temporarily hold SGLT2 medications for at least 3 days prior to surgery to avoid predisposing the patient to ketoacidosisIndications:Mitral regurgitation Given 07/09/2024 8:45 AM EDT 10 mg ferrous sulfate EC tablet 325 mg 325 mg 2 times daily, oral, First dose on Thu07/08/24 at 2100, * DO NOT CRUSH THIS DOSAGE FORM *Indications:Mitral regurgitation Given 07/09/2024 8:44 AM EDT 325 m g Given 07/08/2024 8:11 PM EDT 325 mg gabapentin (NEURONTIN) capsule 100 mg 100 mg 2 times daily, oral, First dose on Thu07/08/24 at 2100Indications:Mitral regurgitation Given 07/09/2024 8:44 AM EDT 100 mg Given 07/08/2024 8:11 PM EDT 100 mg ipratropium (ATROVENT) 0.02 % nebulizer solution 0.5 mg 0.5 mg 4 times daily (RT), nebulization, First dose on Thu07/08/24 at 1600, * RESPIRATORY THERAPY TREATMENT * F/S FOR SPIRIVA, What is the respiratory therapy Modality? Small volume Nebulization Given 07/09/2024 11:02 AM EDT 0.5 mg Given 07/09/2024 8:33 AM EDT 0.5 mg Given 07/08/2024 9:49 PM EDT 0.5 mg levothyroxine (SYNTHROID) tablet 75 mcg 75 mcg Daily, oral, First dose on Thu07/08/24 at 1200Indications:Mitral regurgitation Given 07/09/2024 8:45 AM EDT 75 m cg magnesium oxide (MAG-OX) tablet 400 mg 400 mg Daily, oral, First dose on Thu07/08/24 at 1200Indications:Mitral regurgitation Given 07/09/2024 8:45 AM EDT 400 mg primidone (MYSOLINE) tablet 100 mg 100 mg Every Night, oral, First dose on Thu07/08/24 at 2100Indications:Mitral regurgitation Given 07/08/2024 8:11 PM EDT 100 mg documented in this encounter Active and Recently Administered Medications Times are shown in EDT. Scheduled Medication Order 07/07/2024 07/08/2024 07/09/2024 arformoteroL (BROVANA) nebulizer solution 15 mcg(Linked Group 1) 15 mcg 2 times daily (RT), nebulization, First dose on Thu07/08/24 at 2000, RESPIRATORY THERAPY TREATMENT F/S FOR DULERA-GIVE WITH BUDESONIDE, What is the respiratory therapy Modality? Small volume Nebulization 2146 (Given - Provider: Mehreen Jones RRT - Comment: rt in intubation) 0833 (Given - Provider: Oneida Velázquez RRT) aspirin chewable tablet 81 mg 81 mg Daily, oral, First dose on Thu07/09/24 at 0900 0845 (Given - Provid er: Zenaida Lizarraga RN) bisoprolol (ZEBETA) tablet 10 mg 10 mg Daily, oral, First dose on Thu07/09/24 at 0900 0845 (Given - Provid er: Zenaida Lizarraga RN) budesonide (PULMICORT) nebulizer suspension 0.5 mg(Linked Group 1) 0.5 mg 2 times daily (RT), nebulization, First dose on Thu07/08/24 at 2000, F/S FOR DULERA-GIVE WITH BROVANA *RESPIRATORY THERAPY TREATMENT*, What is the respiratory therapy Modality? Small volume Nebulization 2149 (Given - Provider: Mehreen Jones RRT - Comment: rt in intubation) 0833 (Given - Provider: Oneida Velázquez RRT) clopidogreL (PLAVIX) tablet 75 mg 75 mg Daily, oral, First dose on 07/09/24 at 0900, Look-alike/Sound-alike medication 0845 (Given - Provid er: Zenaida Lizarraga RN) dapagliflozin propanediol (FARXIGA) tablet 10 mg 10 mg Daily, oral, First dose on Thu07/08/24 at 1200, Is the patient scheduled for surgery in the next 3 days? Yes It is strongly recommended to temporarily hold SGLT2 medications for at least 3 days prior to surgery to avoid predisposing the patient to ketoacidosis 173 (Not Given - Provider: Mary Miramontes RN - Reason: Other (with Comment) - Comment: pt already took today) 0845 (Given - Provider: Zenaida Lizarraga RN) ferrous sulfate EC tablet 325 mg 325 mg 2 times daily, oral, First dose on Thu07/08/24 at 2100, * DO NOT CRUSH THIS DOSAGE FORM * 2010 (Given - Provider: Tiffany Aceves RN) 0844 (Given - Provider: Zenaida Lizarraga RN) fluticasone propionate (FLONASE) 50 mcg/actuation nasal spray 1 spray 1 spray Daily, each nostril, First dose on Thu07/08/24 at 1200 173 (Not Given - Provider: Mary Miramontes RN - Reason: Medication/ Dose Unavailable) 0844 (Not Given - Provider: Zenaida Lizarraga RN - Reason: Patient/family refused) gabapentin (NEURONTIN) capsule 100 mg 100 mg 2 times daily, oral, First dose on Thu07/08/24 at 2100 2010 (Given - Provider: Tiffany Aceves RN) 0844 (Given - Provider: Zenaida Lizarraga RN) ipratropium (ATROVENT) 0.02 % nebulizer solution 0.5 mg 0.5 mg 4 times daily (RT), nebulization, First dose on Thu07/08/24 at 1600, * RESPIRATORY THERAPY TREATMENT * F/S FOR SPIRIVA, What is the respiratory therapy Modality? Small volume Nebulization 1621 (Given - Provider: Fatimah Hernandez, RANJAN)2149 (Given - Provider: Mehreen Jones, RANJAN - Comment: rt in intubation) 0833 (Given - Provider: Oneida Velázquez RRT)1102 (Given - Provider: Oneida Velázquez RRT)1537 (Not Given - Provider: Oneida Velázquez RRT - Reason: Other (with Comment) - Comment: awaiting discharge) levothyroxine (SYNTHROID) tablet 75 mcg 75 mcg Daily, oral, First dose on Thu07/08/24 at 1200 1731 (Not Given - Provider: Mary Miramontes RN - Reason: Other (with Comment) - Comment: pt already took today) 0845 (Given - Provider: Zenaida Lizarraga RN) magnesium oxide (MAG-OX) tablet 400 mg 400 mg Daily, oral, First dose on Thu07/08/24 at 1200 1731 (Not Given - Provider: Mary Miramontes RN - Reason: Other (with Comment) - Comment: pt already took today) 0845 (Given - Provider: Zenaida Lizarraga RN) primidone (MYSOLINE) tablet 100 mg 100 mg Every Night, oral, First dose on Thu07/08/24 at 2100 2010 (Given - Provider: Tiffany Aceves RN) vancomycin (VANCOCIN) 1,000 mg in sodium chloride 0.9% (NS) non-DEHP 250 mL IVPB (COMPLETED) 1,000 mg Once, intravenous, Administer over 60 Minutes, On Thu07/08/24 at 0700, For 1 dose, Please choose an indication: Surgical Prophylaxis 08 (New Bag - Provider: Whit Cisse CRNA) PRN Medication Order 07/07/2024 07/08/2024 07/09/2024 acetaminophen (TYLENOL) tablet 500 mg 500 mg Every 4 hours PRN, oral, mild pain (1-3), Starting on Thu07/08/24 at 1117, Recommended maximum dose of acetaminophen is 4000 mg from all sources in 24 hours albuterol HFA (VENTOLIN HFA) inhaler 2 puff 2 puff Every 4 hours PRN, inhalation, shortness of breath, Starting on Thu07/08/24 at 1117 Linked Groups Order Group 1: arformoteroL (BROVANA) nebulizer solution 15 mcgJump to med 15 mcg 2 times daily (RT), nebulization, First dose on Thu07/08/24 at 2000, RESPIRATORY THERAPY TREATMENT F/S FOR DULERA-GIVE WITH BUDESONIDE, What is the respiratory therapy Modality? Small volume Nebulization And budesonide (PULMICORT) nebulizer suspension 0.5 mgJump to med 0.5 mg 2 times daily (RT), nebulization, First dose on Thu07/08/24 at 2000, F/S FOR DULERA-GIVE WITH BROVANA *RESPIRATORY THERAPY TREATMENT*, What is the respiratory therapy Modality? Small volume Nebulization documented in this encounter Care Teams Parts Sales Counterperson Relationship Specialty Start Date End Date Zia Moore MD [address] [place] [id number] PCP - General Family Medicine 11/20/23 Jonathan Gallardo MD [address] [place] [address] Tech Cardiology 11/20/23 Elvi Villavicencio MD [address] [facility] [address] [place] [address] Cell Tuber Machine Nephrology 11/26/23 Carissa Drake MD [address] [facility] [address] [place] [address] Neurologist Neurosurgery 11/26/23 Devon Olea MD [address] [place] [address] Bathhouse Attendant Pulmonary Disease 11/26/23 [employer] Sleep Disorder [address] [place] [address] Consulting Physician Sleep Medicine 11/26/23 Carlo Chavez MD [address] [facility] [address] [place] [address] Surgeon Cardiothoracic Surgery 12/15/23 documented as of this encounter
--- OUTSIDE RECORDS SUMMARY | 2024-07-08 07:28 | XMS_ITS | Encounter Summary ---
Author Organization [employer] Address [address] [place] [address] Care Team Providers Care Reheater Name Role Phone Zia Moore MD Primary Care Provider [phone] Jonathan Gallardo MD Unavailable Elvi Villavicencio MD Unavailable Carissa Drake MD Unavailable Devon Olea MD Unavailable [phone] [facility] Sleep Disorder Unavailable + [phone] Carlo Chavez MD Unavailable Reason for Visit * Auth/Cert (Routine) Specialty Diagnoses / Procedures Referred By Fito shelley Referred To Contact [facility] [address] [place] [address] Phone: tel: fax: [facility] [address] [place] [address] Phone: tel: fax: Referral ID Status Reason Start Date Expiration Date Visits Re quested Visits Authorized [id number] 1 1 Encounter Details Date Type Department Care Team (Late st Contact Info) Description 07/08/2024 7:28 AM EDT Anesthesia Event [facility] [address] [place] [address] Miguelangel Rodriguez MD [address] [place] [address] Whit Cisse CRNA [address] [place], [place] [id number] Anesthesia Record Procedure Summary Procedure Name Responsible [...] an stop data 1026 An Stop Meds Name Total vancomycin (VANCOCIN) 1,000 mg in sodium chloride 0.9% (NS) non-DEHP 250 mL IVPB 1,000 mg propofol (DIPRIVAN) injection 10 mg/mL b olus 160 mg rocuronium (ZEMURON) 50 mg/5 mL injectio n 100 mg lidocaine (PF) injection 10 mg/mL (1%) 3 0 mL fentaNYL (SUBLIMAZE) injection 50 mcg phenylephrine (VENKAT-SYNEPHRINE) injection 50 mcg vasopressin (VASOSTRICT) injection 10 Un its heparin injection 1,000 units/mL for IV bolus/dialysis lock 15,000 Units protamine 150 mg in sodium chloride 0.9 % (NS) 50 mL IVPB 150 mg sugammadex (BRIDION) injection 148.6 mg ondansetron (ZOFRAN) injection 4 mg sodium chloride 0.9% (NS) infusion 400 m L * Agents Name Auxiliary O2 O2 N2O Air SEVOFLURANE DESFLURANE * Blood No blood administrations on file. [...] RN ETT Placement Date 07/08; Placement Time 0816 (created via procedure documentation); Airway Size 7.5; Airway Cuffed Yes; Removal Date 07/08/24; Removal Time 1008 07/08/24 0816 by Whit Cisse CRNA 07/08/24 1008 by Whit Cisse CRNA Arterial [...] your living situation today? I have a [facility] place to live 07/08/2024 Think [...] Do you speak a language other than Jamaican at ho me? No 07/08/2024 Do you want help with [...] on file documented as of this encounter OR Notes * Anesthesia Postprocedure Evaluation - Whit Cisse CRNA - 07/08/2024 10:25 AM EDT Patient: Trinity Silvestre Procedure Summary Date: 07/08/24 Room / Location: [facility]athe[facility] Anesthesia Start: 727 Anesthesia Stop: Procedure: CARDIAC CATH - TRANSCATHETER MITRAL VALVE REPAIR (TMVR) Diagnosis: Mitral regurgitation Mitral regurgitation Scheduled Providers: Edward Gonzalez MD Responsible Provider: Miguelangel Rodriguez MD Anesthesia Type: general ASA Status: 4 Anesthesia Type: general Vitals Value Taken Time BP 142/70 07/08/24 1025 Temp 97 07/08/24 1025 Pulse 77 07/08/24 1025 Resp 18 07/08/24 1025 SpO2 100 07/08/24 1025 There were no vitals taken for this visit. Anesthesia Post Evaluation Patient location during evaluation: PACU Patient participation: complete - patient participated Level of consciousness: awake Pain management: adequate Multimodal analgesia pain management approach Airway patency: patent Cardiovascular status: stable Respiratory status: face mask Hydration status: stable Color: [place] Activity: Moves 4 extremities Inotropes/Vasopressors: N/A No notable events documented. Whit Cisse CRNA 07/08/2024 10:25 AM EDT * Anesthesia Procedure Notes - Miguelangel Rodriguez MD - 07/08/2024 10:08 AM EDT Associated Order(s): MATT MATT Date: 07/08/2024 9:53 AM Sex: Female Location: OR Requesting Physician: Edward Gonzalez MD Examiner: Miguelangel Rodriguez MD Indication: Mitral Clip Intubated Sedated Patient screened for esoph disease: Yes Insertion: easy Probe Type: multiplane Modalities: 2D, CWD and PWD Aorta Size Dissection Plaque Thick Plaque Mobile Ascending Ao normal No < 3mm No Ao Arch normal No < 3mm No Descending Ao normal No < 3mm No Pre Intervention Summary: CHAMBERS LV - normal systolic function; est EF 50-55%; concentric LVH RV - grossly normal LA - enlarged RA - enlarged NILESH - no clots VALVES AV - tri-leaflet; no stenosis; no regurgitation; MV - moderate MR; jet central; prolapse of A2/P2; gradient mean/peak 3/6; no flow reversal in LUPV TV - trace TR OTHER Aorta - annulus: 1.6 cm; ascendin.6 cm Pericardium - no effusion Post Intervention Summary: MV - one clip deployed; medial; post: trace to mild MR; mean gradient 5-6 mmHg Summary: Patient with moderate central MR from A2/P2 prolapse for mitral clip One clip deployed Post deployment, MR went from moderate to trace to mild. Mean gradient went from 3 to 5-6 mmHg LV systolic function is normal; EF 50-55% Other valves grossly normal Biatrial enlargement All finding discussed with Dr. Gonzalez * Anesthesia Procedure Notes - Whit Cisse CRNA - 07/08/2024 8:23 AM EDT Associated Order(s): Intubation Intubation Authorized by: Miguelangel Rodriguez MD Performed by: Whit Cisse CRNA Date/Time: 07/08/2024 8:16 AM Urgency: elective Indications and Patient Condition Indications for airway management: anesthesia and airway protection Spontaneous Ventilation: absent Sedation level: general anesthesia Preoxygenated: yes Patient position: sniffing no Mask difficulty assessment: 2 - vent by mask + OA or adjuvant +/- NMBA no Final Airway Details Final airway type: endotracheal airway Endotracheal tube type: ETT Cuffed: yes Successful intubation technique: direct laryngoscopy Facilitating devices/methods: intubating stylet Endotracheal tube insertion site: oral Blade: Deon Blade size: #3 ETT size (mm): 7.5 Cormack-Lehane Classification: grade I - full view of glottis Placement verified by: chest auscultation and capnometry Measured from: jt Number of attempts at approach: 1 Number of other approaches attempted: 0 Additional Comments Atraumatic intubation * Anesthesia Preprocedure Evaluation - Haroon Deluca MD - 07/07/2024 11:54 AM EDT Anesthesia Pre Evaluation Ms. Trinity Silvestre is a 74 y.o. female being evaluated for the following: Date/Time: 07/08/24 0530 Scheduled providers: Edward Gonzalez MD Procedure: CARDIAC CATH - TRANSCATHETER MITRAL VALVE REPAIR (TMVR) Location: [facility] Relevant Problems CARDIOVASCULAR (+) Atherosclerotic heart disease of [place] coronary artery without angina pectoris (+) CAD (coronary artery disease) (+) Non-STEMI (non-ST elevated myocardial infarction) (HCC) (+) PAF (paroxysmal atrial fibrillation) (HCC) ENDOCRINE (+) Type 2 diabetes mellitus with diabetic neuropathy, without long-term current use of insulin (HCC) /RENAL (+) Acute on chronic renal failure (HCC) (+) Chronic kidney disease, stage 3 unspecified (HCC) NEURO/PSYCH (+) Anxiety and depression RESPIRATORY SYSTEM (+) Asthma-chronic obstructive pulmonary disease overlap syndrome (HCC) Ct surgery note: 12/15/2023 Ms. Myers is a 73-year old female with a past medical history significant for HTN, HLD, DM, CAD, NSTEMI, PAF, lung nodules, chronic respiratory failure, GI bleed, and illeus. She was sent for cardiac clearance for a cervical laminectomy. She had a stress test which was abnormal. She underwent cardiac catheterization which revealed left main with 30-40% stenosis, LAD with 30-40% stenosis, Lcx nondominant and subtotally occluded, and RCA subtotally occluded with left to right collaterals. Echocardiogram revealed moderate-severe mitral regurgitation with EF 55%. She underwent a limited echo to further assess mitral valve and this noted severe MR with eccentric and p osteriorly directed jet likely from tethered posterior leaflet versus calcification. PFTs April 2023 noted severe obstructive lung disease with FEV1 0.69 36%. She quit smoking 3 years ago. S/p acdf 11/2023 echo - mild MS, mild to moderate mR Matt 04/2024 mod/severe MR, no mitral stenosis Clinical information reviewed: NPO Status No data recorded Physical Exam Airway Mallampati: II TM distance: >3 FB Neck ROM: limited Cardiovascular - normal exam Dental (+) upper dentures, lower dentures Pulmonary - normal exam Abdominal Anesthesia Plan ASA 4 Planned anesthetic: general (Mariela, matt) Induction: intravenous Informed Consent- Anesthetic plan and risks discussed with patient. documented in this encounter Plan of Treatment Not on file documented as of this encounter Procedures Procedure Name Priority Date/Time Associated Diagnosis Comments ANESTHESIA MATT Routine 07/08/2024 10:08 AM EDT ANESTHESIA INTUBATION Routine 07/08/2024 8:16 AM EDT documented in this encounter Results * MATT (07/08/2024 10:08 AM EDT) Anatomical Region Laterality Modality Other Narrative 07/08/2024 10:08 AM EDT Miguelangel Rodriguez MD 07/08/2024 10:18 AM MATT Date: 07/08/2024 9:53 AM Sex: Female Location: OR Requesting Physician: Edward Gonzalez MD Examiner: Miguelangel Rodriguez MD Indication: Mitral Clip Intubated Sedated Patient screened for esoph disease: Yes Insertion: easy Probe Type: multiplane Modalities: 2D, CWD and PWD Aorta Size Dissection Plaque Thick Plaque Mobile Ascending Ao normal No < 3mm No Ao Arch normal No < 3mm No Descending Ao normal No < 3mm No Pre Intervention Summary: CHAMBERS LV - normal systolic function; est EF 50-55%; concentric LVH RV - grossly normal LA - enlarged RA - enlarged NILESH - no clots VALVES AV - tri-leaflet; no stenosis; no regurgitation; MV - moderate MR; jet central; prolapse of A2/P2; gradient mean/peak 3/6; no flow reversal in LUPV TV - trace TR OTHER Aorta - annulus: 1.6 cm; ascendin.6 cm Pericardium - no effusion Post Intervention Summary: MV - one clip deployed; medial; post: trace to mild MR; mean gradient 5-6 mmHg Summary: Patient with moderate central MR from A2/P2 prolapse for mitral clip One clip deployed Post deployment, MR went from moderate to trace to mild. Mean gradient went from 3 to 5-6 mmHg LV systolic function is normal; EF 50-55% Other valves grossly normal Biatrial enlargement All finding discussed with Dr. Gonzalez us Miguelangel Rodriguez MD ANESTHESIA ORDERABLES Colleen l Result * AN SINGLE LUMEN INTUBATION (07/08/2024 8:16 AM EDT) Whit French CRNA - 07/08/2024 8:16 AM EDT Whit Cisse CRNA 07/08/2024 8:24 AM Intubation Authorized by: Miguelangel Rodriguez MD Performed by: Whit Cisse CRNA Date/Time: 07/08/2024 8:16 AM Urgency: elective Indications and Patient Condition Indications for airway management: anesthesia and airway protection Spontaneous Ventilation: absent Sedation level: general anesthesia Preoxygenated: yes Patient position: sniffing no Mask difficulty assessment: 2 - vent by mask + OA or adjuvant +/- NMBA no Final Airway Details Final airway type: endotracheal airway Endotracheal tube type: ETT Cuffed: yes Successful intubation technique: direct laryngoscopy Facilitating devices/methods: intubating stylet Endotracheal tube insertion site: oral Blade: Deon Blade size: #3 ETT size (mm): 7.5 Cormack-Lehane Classification: grade I - full view of glottis Placement verified by: chest auscultation and capnometry Measured from: gums Number of attempts at approach: 1 Number of other approaches attempted: 0 Additional Comments Atraumatic intubation Miguelangel Rodriguez MD ANESTHESIA ORDERABLES Colleen alen Result documented in this encounter Visit Diagnoses Not on filedocumented in this encounter Administered Medications Inactive Administered Medications - up to 3 most recent administrations Medication Order MAR Action Action Date Dose Rate Site fentaNYL PF (SUBLIMAZE) injection As needed, intravenous, Starting on Thu07/08/24 at 0745, Anesthesia Intra-op Given 07/08/2024 8:15 AM EDT 25 mcg Given 07/08/2024 8:00 AM EDT 15 mcg Given 07/08/2024 7:45 AM EDT 10 mcg heparin 1,000 Units/mL injection As needed, intravenous, Starting on Thu07/08/24 at 0900, Anesthesia Intra-op Given 07/08/2024 9:00 AM EDT 15,000 Units lidocaine (PF) injection 10 mg/mL (1%) As needed, intravenous, Starting on Thu07/08/24 at 0749, Anesthesia Intra-op Given 07/08/2024 7:49 AM EDT 30 mLs ondansetron (ZOFRAN) injection As needed, intravenous, Starting on Thu07/08/24 at 0949, Anesthesia Intra-op Given 07/08/2024 9:49 AM EDT 4 mg phenylephrine (VENKAT-SYNEPHRINE) injection As needed, intravenous, Starting on Thu07/08/24 at 0815, Anesthesia Intra-op Given 07/08/2024 8:15 AM EDT 50 mcg propofol (DIPRIVAN) injection 10 mg/mL bolus As needed, intravenous, Starting on Thu07/08/24 at 0749, Anesthesia Intra-op Given 07/08/2024 8:15 AM EDT 150 mg Given 07/08/2024 7:49 AM EDT 10 mg protamine 150 mg in sodium chloride 0.9 % (NS) 50 mL IVPB Continuous PRN, intravenous, Administer over 30 Minutes, Starting on Thu07/08/24 at 0941, Anesthesia Intra-op New Bag 07/08/2024 9:41 AM EDT 150 mg rocuronium (ZEMURON) injection As needed, intravenous, Starting on Thu07/08/24 at 0815, Anesthesia Intra-op Given 07/08/2024 9:19 AM EDT 20 mg Given 07/08/2024 8:50 AM EDT 30 mg Given 07/08/2024 8:15 AM EDT 50 mg sodium chloride 0.9 % infusion Continuous PRN, intravenous, Starting on Thu07/08/24 at 0728, Anesthesia Intra-op New Bag 07/08/2024 7:28 AM EDT sugammadex (BRIDION) injection As needed, intravenous, Starting on Thu07/08/24 at 0946, Anesthesia Intra-op Given 07/08/2024 9:46 AM EDT 148.6 m g vancomycin (VANCOCIN) 1,000 mg in sodium chloride 0.9% (NS) non-DEHP 250 mL IVPB 1,000 mg Once, intravenous, Administer over 60 Minutes, On Thu07/08/24 at 0700, For 1 dose, Please choose an indication: Surgical Prophylaxis New Bag 07/08/2024 8:19 AM EDT 1,000 mg vasopressin (VASOSTRICT) injection As needed, buccal, Starting on Thu07/08/24 at 0830, Anesthesia Intra-op Given 07/08/2024 10:01 AM EDT 2 Unit s Given 07/08/2024 9:46 AM EDT 2 Units Given 07/08/2024 9:33 AM EDT 2 Units documented in this encounter Care Teams Reheater Relationship Specialty Start Date End Date Zia Moore MD [address] [place] [id number] PCP - General Family Medicine 11/20/23 Jonathan Gallardo MD [address] [place] [address] Clinical Resource Manager Cardiology 11/20/23 Elvi Villavicencio MD [address] [facility] [address] [place] [address] Perianesthesia Nurse Nephrology 11/26/23 Carissa Drake MD [address] [facility] [address] [place] [address] Neurologist Neurosurgery 11/26/23 Devon Olea MD [address] [place] [address] Instructor Weaving Pulmonary Disease 11/26/23 [place], [facility] Sleep Disorder [address] [place] [address] Consulting Physician Sleep Medicine 11/26/23 Carlo Chavez MD [address] [facility] [address] [place], [place] [id number] Surgeon Cardiothoracic Surgery 12/15/23 documented as of this encounter
--- OUTSIDE RECORDS SUMMARY | 2024-07-18 09:15 | XMS_ITS ---
Author Organization [facility] Address [facility] [address] [place] [id number] Care Team Providers Care Interactive Media Specialist Name Role Phone Mi Moore Tray Unavailable [phone] Nubia Almanzar Unavailable [phone] Allergies Allergen (clinical drug ingredient) Drug/Non Drug Allergy documented on EMR Reaction Allergy Type Onset Date Status ciprofloxacin Cipro hives Drug Allergy Act angel REASON FOR VISIT Hospital d/c f/u Medications Medication SIG (Take, Route, Frequency, Duration) Notes Start Date End Date Status Walker with Wheels as directed Hx of Falling Z91.81 05/23/2024 Active Levothyroxine Sodium 75 MCG 1 tablet in the morning on an empty stomach Orally Once a day Active FeroSul 325 (65 Fe) MG TAKE 1 TAB(S) ORALLY 2 TIMES A DAY 90 DAYS Active Farxiga 10 MG 1 tablet Orally Once a day 04/21/2024 Active Natural Senna Laxative 8.6 MG 1 tablets at bedtime as needed Orally Once a day 10/29/2022 Not-Taking Bisoprolol Fumarate 5 MG TAKE 2 TABLETS BY MOUTH ONCE A DAY Active Dulera 200-5 MCG/ACT 2 PUFF INHALED TWICE A DAY Active Spiriva Respimat 1.25 MCG/ACT 2 PUFFS ONCE DAILY Inhalation Once a day Active Gabapentin 100 MG 1 cap(s) orally 2 times a day 05/27/2024 Active Clopidogrel Bisulfate 75 MG TAKE 1 TABLET BY MOUTH EVERY DAY Active Furosemide 20 MG 1 tablet Orally on Thursday and Thursday Active Primidone 50 MG TAKE 2 TABLETS BY MOUTH ONCE DAILY AT BEDTIME Active Magnesium 400 MG as directed Orally Active Problems Problem Type SNOMED Code ICD Code Onset Dates Problem Status W/U Status Risk Notes Problem Anemia (879605990) Anemia (D64.9) Active confirmed Problem Heart valve disease (250950) Valvular disease (I38) Active confirmed Vital Signs Blood pressure systolic 118 mm Hg 07/19/19 25 Blood pressure diastolic 64 mm Hg 025 Heart Rate 62 /min 07/18/2024 Height 61 in 07/18/2024 Weight 000 lbs 07/18/2024 Encounters Encounter Location Date Provider Diagnosis [facility] [address] [facility] [address] [place], [place] [id number] 07/18/2024 Nubia Almanzar Type 2 diabetes mellitus with other circulatory complications E11.59 ; Chronic obstructive pulmonary disease, unspecified COPD type J44.9 ; Tremor R25.1 ; Debility R53.81 ; Hypomagnesemia E83.42 ; Chronic renal failure, stage 3b N18.32 ; PAF (paroxysmal atrial fibrillation) I48.0 ; Hypothyroidism (acquired) E03.9 ; Status post angioplasty with stent Z95.820 ; Cervical disc disease M50.90 ; Congestive heart failure, unspecified HF chronicity, unspecified heart failure type I50.9 ; Anemia D64.9 ; Valvular disease I38 ; Hyperlipidemia, unspecified hyperlipidemia type E78.5 and Chronic pain disorder G89.4 Assessments Encounter Date Diagnosis (ICD Code) Assessment Notes Treatment Notes Treatment Clinical Notes Section Notes 07/18/2024 Type 2 diabetes mellitus with other circulatory complications (ICD-10 - E11.59) 07/18/2024 Chronic obstructive pulmonary disease, unspecified COPD type (ICD-10 - J44.9) 07/18/2024 Tremor (ICD-10 - R25.1) has FU with Neurosurgery 07/18/2024 Debility (ICD-10 - R53.81) requests referral with [facility] or another agency for assistance with ADL, home care and food prep 07/18/2024 Hypomagnesemia (ICD-10 - E83.42) 07/18/2024 Chronic renal failure, stage 3b (ICD-10 - N18.32) 07/18/2024 PAF (paroxysmal atrial fibrillation) (ICD-10 - I48.0) taking ASA 81 mg qd 07/18/2024 Hypothyroidism (acquired) (ICD-10 - E03.9) 07/18/2024 Status post angioplasty with stent (ICD-10 - Z95.820) 07/18/2024 Cervical disc disease (ICD-10 - M50.90) 07/18/2024 Congestive heart failure, unspecified HF chronicity, unspecified heart failure type (ICD-10 - I50.9) 07/18/2024 Anemia (ICD-10 - D64.9) referral initiated for help at home; discussed alternatives; a family comes in weekly and helps with a shower 07/18/2024 Valvular disease (ICD-10 - I38) had TMVR 07/08/2024; has cardiac FU scheduled 07/18/2024 Hyperlipidemia, unspecified hyperlipidemia type (ICD-10 - E78.5) 07/18/2024 Chronic pain disorder (ICD-10 - G89.4) 07/18/2024 Other Discharge summary with available lab/diagnostic imaging results obtained and reviewed. Discharge medication list reconciled. Appropriate counseling provided. Moderate Complexity Plan Of Treatment Medication Medication Name Sig Start Date Stop Date Notes Levothyroxine Sodium 75 MCG 1 tablet in the morning on an empty stomach Orally Once a day FeroSul 325 (65 Fe) MG TAKE 1 TAB(S) ORA LLY 2 TIMES A DAY 90 DAYS Farxiga 10 MG 1 tablet Orally Once a day 04/21/2024 Bisoprolol Fumarate 5 MG TAKE 2 TABLETS BY MOUTH ONCE A DAY Dulera 200-5 MCG/ACT 2 PUFF INHALED TWICE A DAY Spiriva Respimat 1.25 MCG/ACT 2 PUFFS ON CE DAILY Inhalation Once a day Gabapentin 100 MG 1 cap(s) orally 2 ti mes a day 05/27/2024 Clopidogrel Bisulfate 75 MG TAKE 1 TABLE T BY MOUTH EVERY DAY Furosemide 20 MG 1 tablet Orally on and Thursday Primidone 50 MG TAKE 2 TABLETS BY [facility] ONCE DAILY AT BEDTIME Magnesium 400 MG as directed Orally Treatment Notes Assessment Notes Tremor has FU with Neurosjenelle elicia Debility requests referral [facility] or another agency for assistance with ADL, home care and food prep PAF (paroxysmal atrial fibrillation) kathya ing ASA 81 mg qd Anemia referral initiated f or help at home; discussed alternatives; a family comes in weekly and helps with a shower Valvular disease had TMVR 07/08/2024; has cardiac FU scheduled Other Discharge summary [facility] available lab/diagnostic imaging results obtained and reviewed. Discharge medication list reconciled. Appropriate counseling provided. Moderate Complexity Next Appt Details Provider Name:Mi Crawford er, 09/05/2024 03:15:00 PM, [address], [address], [place], [place], [id number], Progress Notes * BRYAN AUGUSTDOB:1950 (74 yo F)Acc No.[id number]:07/18/2024 Patient: Rebel NARVAEZ AUGUST Provider: RENNY Hurtado :1950 A ge:74 Y S ex:Female Date:07/18/2024 Address:[address] [place], [place] [address] Subjective: * Chief Complaints: * 1 . Hospital d/c f/u. * HPI: H PI: Patient is here today for a Transition of Care Visit. Discharge from the following Facility: [facility] , Discharge date: 07/09/2024 ,Date of phone contact following discharge: 07/11/2024. Pt sts she was in [facility] for a repair of the mitral valve. Pt sts she is doing well and has no concerns; see ROS. * ROS: R ESPIRATORY: no S hortness of breath, d oes wear O2 at night. n o C hest pain. n o C ough. C ARDIOLOGY: no C hest pain. n o P alpitations. L eg edema?yes, i mproving with RX , Wears MANSOOR hose. n o S hortness of breath. D ERMATOLOGY: no R noé. n o H nadya. G ASTROENTEROLOGY: Positive for f ood prep is a problem; she now eats mostly frozen meals prepared in the microwave; she worries about salt content. n o N ausea. n o?Vomiting. n o D iarrhea. M USCULOSKELETAL: Positive for s he is able to walk; uses a motorized wheelchair when out and about; states she does daily exercise. U ROLOGY: no D ifficulty urinating. n o B lood in urine. * Medical History: A sthma, Angina, Hypertension, Hyperlipidemia, Type 2 diabetes, Hyperthyroid, Allergic rhinitis, Kidney disease, Rheumatic fever, CAD, stent 06/2021, [facility], 02/17-02/26 [facility] COVID 19 and pneumonia, 03/01-03/12/22 [facility] for GI bleed.. * Surgical History: S tent to Left Main Coronary artery, [facility] 07/10/2021, Right total hip arthroplasty , Left total hip arthroplasty , Cervical spine surgery, C3-C7 arthrodesis and fusion of C3-C6 12/18/23, Percutaneous coronary intervention; mitral valve repair (TMVR) 07/08/2024. * Hospitalization/Major Diagno stic Procedure: N STEMI, COPD, stent to Left Main cornary artery 06/2021, [facility] Septic shock; sepsis;elevated LFT;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, [facility] Hosp: MV disease with TMVR by Dr Mejia 07/08-07/09/2024. * Family History: F ather: diagnosed with [...] PUFF INHALED TWICE A DAY , Taking FeroSul 325 (65 Fe) MG [...] TABLETS BY MOUTH ONCE A DAY , Taking Clopidogrel Bisulfate 75 MG Tablet TAKE 1 TABLET BY MOUTH EVERY DAY , Not-Taking Natural Senna Laxative 8.6 MG Tablet 1 tablets at bedtime as needed Orally Once a day , Medication List reviewed and reconciled with the patient * Allergies: C ipro: hives. Objective: * Vitals: W t: 000, Temp: 98.4, BP: 118/64, HR: 62, O2 Sat: 98% on RA, Nurse: bill, Ht: 61. * Examination: G eneral Examination: General Appearance: N AD , alert , pleasant; presents in motorized wheelchair which she operates well. Heart: R RR. Lungs: C TAB A&P. Neurologic Exam: a lert and oriented. Extremities: 1 + ankle edema. L ABS: date of labs . Creatinine 1 .12. BUN 3 2.7. Sodium 1 37. Potassium 4 .7. chloride 2 1. CO2 1 07. CBC-hgb/hct/wbc 1 0.8/34.9/8.7; plt [id number]. ? Assessment: * Assessment: 1. T ype 2 diabetes mellitus with other circulatory complications - E11.59 (Primary) 2 . C hronic obstructive pulmonary disease, unspecified COPD type - J44.9 3 . T remor - R25.1 4 . D ebility - R53.81 5 . H ypomagnesemia - E83.42 6 . C hronic renal failure, stage 3b - N18.32 7 . P AF (paroxysmal atrial fibrillation) - I48.0 8 . H ypothyroidism (acquired) - E03.9 9 . S tatus post angioplasty with stent - Z95.820 1 0. C ervical disc disease - M50.90 1 1. C ongestive heart failure, unspecified HF chronicity, unspecified heart failure type - I50.9 1 2. A nemia - D64.9? 13. V alvular disease - I38 1 4. H yperlipidemia, unspecified hyperlipidemia type - E78.5 1 5. C hronic pain disorder - G89.4 Plan: * Treatment: 2. C hronic obstructive pulmonary disease, unspecified COPD type Continue Spiriva Respimat Aerosol Solution, 1.25 MCG/ACT, 2 PUFFS ONCE DAILY, Inhalation, Once a day; C ontinue Dulera Aerosol, 200-5 MCG/ACT, 2 PUFF INHALED TWICE A DAY. 3. T remor Continue Primidone Tablet, 50 MG, TAKE 2 TABLETS BY MOUTH ONCE DAILY AT BEDTIME. Notes: has FU with Neurosurgery 4. D giovana Notes: requests referral with [facility] or another agency for assistance with ADL, home care and food prep 5. H ypomagnesemia Continue Magnesium Capsule, 400 MG, as directed, Orally. 6. P AF (paroxysmal atrial fibrillation) Notes: taking ASA 81 mg qd 7. H ypothyroidism (acquired) Continue Levothyroxine Sodium Tablet, 75 MCG, 1 tablet in the morning on an empty stomach, Orally, Once a day. 8. S tatus post angioplasty with stent Continue Clopidogrel Bisulfate Tablet, 75 MG, TAKE 1 TABLET BY MOUTH EVERY DAY; C ontinue Bisoprolol Fumarate Tablet, 5 MG, TAKE 2 TABLETS BY MOUTH ONCE A DAY. 9. C ervical disc disease Continue Gabapentin Capsule, 100 MG, 1 cap(s), orally, 2 times a day. 10. C ongestive heart failure, unspecified HF chronicity, unspecified heart failure type Continue Furosemide Tablet, 20 MG, 1 tablet, Orally, on Thursday and Thursday. 11. A nemia Continue FeroSul Tablet, 325 (65 Fe) MG, TAKE 1 TAB(S) ORALLY 2 TIMES A DAY 90 DAYS. Notes: referral initiated for help at home; discussed alternatives; a family comes in weekly and helps with a shower 12. V alvular disease Notes: had TMVR 07/08/2024; has cardiac FU scheduled 13. O thers Notes: Discharge summary with available lab/diagnostic imaging results obtained and reviewed. Discharge medication list reconciled. Appropriate counseling provided. Moderate Complexity * Procedure Codes: 9 9495 TRANS CARE MGMT 14 DAY DISCH, 1111F DSCHR MED/CURENT MED MERGE, G2211 Complex e/m visit add on, G8752 MOST RECENT SYSTOLIC BP < 140MM HG, G8754 MOST RECENT DIASTOLIC BP < 90MM HG * Billing Information: * Visit Code: 29518 Office Visit, Est Pt., Level 4. * Procedure Codes: 84454 TRANS CARE MGMT 14 DAY DISCH. 1111F DSCHR MED/CURENT MED MERGE. G2211 Complex e/m visit add on. G8752 MOST RECENT SYSTOLIC BP < 140MM HG. G8754 MOST RECENT DIASTOLIC BP < 90MM HG. * Electronic signature of Deborah koenigfrancisco javier Almanzar APRN on 08/31/2024 at 12:46 PM EDT Sign off status: Pending * Provider: RENNY Hurtado Date: 0 07/18/2024 Generated for Dai hannah/Kami/Leannitting on: 0 08/31/2024 12:46 PM EDT History and Physical Notes * HPI (History of Present Illness) Category Sub-Category Detail Notes Category Not es HPI Patient is here today for a [facility] of Care Visit. Discharge from the following Facility: [facility] ,Discharge date: 07/09/2024 ,Date of phone contact following discharge: 07/11/2024. Pt sts she was in [facility] for a repair of the mitral valve. Pt sts she is doing well and has no concerns; see ROS Examination Category Sub-Category Detail Notes Category Not es General Examination Heart: RRR Lungs: CTAB A&P Extremities: 1+ ankle edema General Appearance: NAD , alert , pleasa nt; presents in motorized wheelchair which she operates well Neurologic Exam: alert and oriented LABS CBC-hgb/hct/wbc 10.8/34.9/8.7; plt [id number] Creatinine 1.12 Potassium 4.7 Sodium 137 BUN 32.7 chloride 21 CO2 107 date of labs 07/09/2024
--- OUTSIDE RECORDS SUMMARY | 2024-07-25 11:15 | XMS_ITS ---
Author Organization Sal Address [address] [place] [address] [address] [facility] [address] [place]KK[place] Patiño [id number] Care Team Providers Care Air Conditioning Unit Assembler Name Role Phone Mi Moore [phone] REASON FOR VISIT F/[facility] Encounters Encounter Location Date Provider Diagnosis [facility] [address] [facility] [address] [facility] [address] [place] [id number] 07/25/2024 Mi Moore Plan Of Treatment Next Appt Details Provider Name:Mi Crawford er, 09/05/2024 03:15:00 PM, [address] [facility] [address] [facility], [address], [place], [id number], Progress Notes * BRYAN AUGUSTDOB:1950 (74 yo F)Acc No.[id number]:07/25/2024 Progress Notes Patient: Rebel NARVAEZ KEIRY Provider: Mi Moore M.D. :1950 A ge:74 Y S ex:Female Date:07/25/2024 Address:[address] [place], [place] [id number] Subjective: * Chief Complaints: * 1 . F/[facility]. * Medical History: Objective: * Vitals: Assessment: Plan: * Treatment: * Billing Information: * Visit Code: * Procedure Codes: * Electronic signature of Mi Moore MD on 08/31/2024 at 12:40 PM EDT Sign off status: Pending * Provider: Mi Moore M.D. Date: 07/25/2024 Generated for Lavoni camden/Kami/eTransmitting on: 08/31/2024 12:40 PM EDT
--- OUTSIDE RECORDS SUMMARY | 2024-08-09 14:00 | XMS_ITS | Encounter Summary ---
Author Organization [employer] Address [address] [place] [address] Care Team Providers Care Pole Incisor Operator Name Role Phone Zia Moore MD Primary Care Provider [phone] Jonathan Gallardo MD Unavailable Elvi Villavicencio MD Unavailable Carisas Drake MD Unavailable [phone] Devon Olea MD Unavailable [phone] Luis Whalen Sleep Disorder Unavailable + [phone] Carlo Chavez MD Unavailable Reason for Referral * Echocardiography (Routine) - Authorized Specialty Diagnoses / Procedures Referred By Contac t Referred To Contact Diagnoses Mitral valve insufficiency, unspecified etiology Procedures ECHO COMPLETE (DOPPLER / COLOR) W OR WO CONTRAST Jen Brian APRN [address] [facility] [address] [place] [address] Phone: tel: fax: Referral ID Status Reason Start Date Expiration Date V isits Requested Visits Authorized [id number] Authorized 02/24/2025 02/24/2026 1 1 Reason for Visit * Reason Comments Follow-up Encounter Details Date Type Department Care Team (Late st Contact Info) Description 08/09/2024 2:00 PM EDT Office Visit [facility] Cardiology [address] [place] [address] Jen Brian, REFRIGERATOR CRATER [address] [place], [place] [id number] Mitral valve insufficiency, unspecified etiology (Primary Dx) [...] your living situation today? I have a [facility] place to live 07/08/2024 Think about [...] Do you speak a language other than [place] Sor[place] at [facility]? No 07/08/2024 Do you want help [...] in this encounter Progress Notes * Jen [place], REFRIGERATOR CRATER - 08/09/2024 2:00 PM EDT Basic Information: [...] CATHETERIZATION 09/16/[address] [facility] @ [facility] CHOLECYSTECTOMY CORONARY STENT PLACEMENT EYE SURGERY Bilateral Cataract HIP SURGERY Bilateral Arthroplasty HYSTERECTOMY LAMINECTOMY,POSTERIOR CERVICAL PRONE W/FUSION N/A 12/18/2023 Procedure: (C3-C6 POSTERIOR LAMINECTOMY AND FUSION USING AIRO); Surgeon: Carissa Drake MD; Location: [facility]; Service: Neurological Surgery; Laterality: N/A; [place] [address], [...] Percutaneous Mitral Valve Repair- Successful transcatheter mitral gsad-gi-yzlr repair (DAVID) with the use of the Rasta system (VELMA device) * Hypertension * hyperlipidemia * Severe COPD Plan: - ECHO scheduled for later today. Structural park activities coordinator will call the results later today. -Continue with Plavix daily - BP is well controlled on current antihypertensive medications Encouraged patient to increase physical activity for a goal of 150 minutes of moderate cardiovascular activity each week. Follow a heart healthy diet to reduce cardiovascular risk. Follow- up: With primary Skills Trainer Dr Gallardo, as previously scheduled. documented in [...] Primary documented in this encounter Care Teams Pole Incisor Operator Relationship Specialty Start Date End Date Zia Moore MD [address] [place] [address] PCP - General Family Medicine 11/20/23 Jonathan Gallardo MD [address] [place] [address] Skills Trainer Cardiology 11/20/23 Elvi Villavicencio MD [address] [facility] [address] [place], [place] [id number] Head Of Integrated Media Nephrology 11/26/23 Carissa Drake MD [address] [facility] [address] [place], [place] [id number] Neurologist Neurosurgery 11/26/23 Devon Olea MD [address] [place] [address] [place] [address] Finishing Frame Runner Pulmonary Disease 11/26/23 [place], [facility] Sleep Disorder [address] [place] [address] Consulting Physician Sleep Medicine 11/26/23 Carlo Chavez MD [address] [place] [address] [address] [place] [address] Surgeon Cardiothoracic Surgery 12/15/23 documented as of this encounter
--- OUTSIDE RECORDS SUMMARY | 2024-08-31 12:40 | XMS_ITS | Clinical Summary ---
Author Organization Healthcare Address [address] 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 She states her PCP advised her to not receive any TB skin tests in the future. Medications clopidogrel (Plavix) 75 MG tablet Take 1 tablet by mouth 1 (one) time each day. Active fluticasone (Flonase) 50 MCG/ACT nasal spray Administer 1 spray into each nostril 1 (one) time each day. Active furosemide (Lasix) 20 MG tablet Take 20 mg by mouth 1 (one) time each day. Active gabapentin (Neurontin) 100 MG capsule Take 100 mg by mouth 2 (two) times a day. Active ipratropium-alb uterol (Duo-Neb) 0.5-2.5 mg/3 mL nebulizer solution Take 3 mL by nebulization every 6 (six) hours if needed for shortness of breath or wheezing. Active mometasone-form oterol (Dulera 200) 200-5 MCG/ACT inhaler Inhale 2 puffs 2 (two) times a day. Active albuterol 108 (90 Base) MCG/ACT inhaler Inhale 2 puffs every 6 (six) hours if needed for wheezing or shortness of breath. Active Tiotropium [place] Monohydrate (Spiriva Respimat) 2.5 MCG/ACT inhaler Inhale 2 puffs 1 (one) time each day. Active dilTIAZem CD (Cardizem CD) 180 MG 24 hr capsule Take 1 capsule by mouth 1 (one) time each day. Active montelukast (Singulair) 10 MG tablet Take 1 tablet by mouth 1 (one) time each day. Active alpha tocopherol (Vitamin E) 400 units capsule Take 400 Units by mouth 1 (one) time each day. Active cholecalciferol (Vitamin D-3) 25 MCG (1000 UT) capsule Take 2,000 Units by mouth 1 (one) time each day. Active pyridoxine (B-6) 100 MG tablet Take 100 mg by mouth 1 (one) time each day. Active Glucosamine 500 MG capsule Take 500 mg by mouth 2 (two) times a day. Active hydrOXYzine HCl (Atarax) 25 MG tablet Take 25 mg by mouth 2 (two) times a day. Active SITagliptin (Januvia) 100 MG tablet Take 100 mg by mouth 1 (one) time each day. Active empagliflozin (Jardiance) 10 MG Take 10 mg by mouth 1 (one) time each day. Active magnesium oxide (Mag-Ox) 400 mg tablet Take 400 mg by mouth 1 (one) time each day. Active metFORMIN (Glucophage) 500 MG tablet Take 500 mg by mouth 2 (two) times a day with meals. Active nitroglycerin (Nitrostat) 0.[address] 0.4 mg under the tongue every 5 (five) minutes if needed for chest pain. Active potassium chloride CR (Klor-Con M10) 10 MEQ ER tablet Take 10 mEq by mouth 1 (one) time each day. Active rosuvastatin (Crestor) 40 MG tablet Take 40 mg by mouth 1 (one) time each day. Active acetaminophen (Tylenol) 500 MG tablet Take 1,000 mg by mouth every 4 (four) hours if needed for pain. Active magic butt balm CMPD (Magic Butt) Apply 1 application topically every 1 (one) hour if needed for diaper rash (diaper change). 150 g 2 Active buPROPion XL (Wellbutrin XL) 150 MG 24 hr tablet Take 1 tablet (150 mg total) by mouth 1 (one) time each day in the morning. 30 tablet 1 2 Active amiodarone (Pacerone) 200 MG tablet Take 1 tablet (200 mg total) by mouth 1 (one) time each day. For 14 days then slowly titrate down 30 tablet 1 2 Active bisoprolol (Zebeta) 10 MG tablet Take 1 tablet (10 mg total) by mouth 1 (one) time each day. 30 tablet 1 2 Active Active Problems Problem Noted Date Diagnosed Date Acute blood loss anemia 03/09/2022 Essential hypertension 03/09/2022 Mixed hyperlipidemia 03/09/2022 Type 2 diabetes mellitus with peripheral neuropa thy 03/09/2022 Coronary artery disease invo lving [place] coronary artery of [place] heart without angina pectoris 03/09/2022 COPD without exacerbation 03/09/2022 Chronic diastolic CHF (congestive heart failure) 03/09/2022 Anxiety and depression 03/09/2022 Obesity (BMI 30.0-34.9) 03/09/2022 NSAID induced gastritis 03/09/2022 Gastrointestinal hemorrhage 03/01/2022 Resolved Problems Problem Noted Date Diagnosed Date Resolved Date Severe obesity (BMI 35.0-39. 9) with comorbidity 03/06/2022 03/09/2022 Closed dislocation of right hip 02/21/2021 02/21/2021 Acute respiratory failure with hypoxia 02/21/2021 02/21/2021 Hypoglycemia 02/14/2021 02/21/2021 Social History Tobacco Use Types Packs/Day Years Used Date Smoking Tobacco: Every Day Cigarettes Smokeless Tobacco: Never Tobacco Cessation:Ready to Q uit: No; Counseling Given: No Alcohol Use Standard Drinks/Week Comments Never 0 (1 standard drink = 0.6 oz pur e alcohol) CAGE ASSESSMENT Answer Date Recorded Cage unable to access Not on file 03/02/2022 Cage max number of drinks Not on file 2021 Cage Beverages a week Not on file 03/02/2022 Have you ever felt you should CUT down on your d rinking? 0 03/02/2022 Have you been ANNOYED by people criticizing your drinking? 0 03/02/2022 Have you felt GUILTY about your drinking? 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 0 03/02/2022 CAGE Questionnaire Score 0 022 Comments Unknown Sex and Gender Information Value Date Recorded Sex Assigned at Not on file Legal Sex Female 6:52 PM EDT Gender Identity Not on file Sexual Orientation Not on file Last Filed Vital Signs Vital Sign Reading Time Taken Comments Blood Pressure 109/70 03/12/2022 12:07 PM EST Pulse 103 03/12/2022 12:07 PM EST Temperature 36.8 C (98.2 F) 03/12/2022 12:07 PM EST Respiratory Rate 18 03/12/2022 4:47 AM EST Oxygen Saturation 92% 03/12/2022 12: 07 PM EST Inhaled Oxygen Concentration - - Weight 76.5 kg (168 lb 10.4 oz) 03/12/2022 6:00 AM EST Height 154.9 cm (5' 0.98 ) 03/04/2022 9:00 AM ES T Body Mass Index 31.88 03/04/2022 9:00 AM EST Plan of Treatment Health Maintenance Due Date Last Done Comments [facility]-Bone Density Scan 1950 [facility]-Depression Screening 1950 [facility]-Hepatitis C Screening 1950 [facility]-Medicare Annual Wellness (AWV) 1950 [facility]-Infant/Child/Adol SDOH Screenings 1950 [facility]-Obesity Intervention 1956 Diabetes: Dental Exam 1960 [facility]- SDOH Screenings 1968 [facility]-Adult SDOH Screenings 1968 [facility]-DTaP,Tdap,and Td Vaccine s (1 - Tdap) 1969 CT Colonography 07/07/1995 Colonoscopy 07/07/1995 FIT-DNA 07/07/1995 FIT 07/07/1995 FOBT 07/07/1995 Sigmoidoscopy 07/07/1995 [facility]-Colorectal Cancer Screening 07/07/1995 [facility]-Breast Cancer Screening 2000 [facility]-Zoster Vaccines (1 of 2) 2000 [facility]-RSV Vaccine: 60+ Years o r (1 - Risk 60-74 years 1-dose series) 2010 [facility]-Diabetes: Hemoglobin A1C 08/14/2021 02/14/2021 [id number] Vaccine ( season) 2023 03/11/2021, 06/20/2020 [facility]-Influenza Vaccine (Seaso n Ended) 2024 11/20/2021, 01/08/2016, 01/07/2007 [facility]-Pneumococcal Vaccine: 50 + Years Completed 01/15/2022, 01/12/2014 HPV Vaccines Aged Out No longer eligi ble based on patient's age to complete this topic [facility]-HIB Vaccines Aged Out No longer e ligible based on patient's age to complete this topic [facility]-Hepatitis A Vaccines Aged Out No longer eligible based on patient's age to complete this topic [facility]-IPV Vaccines Aged Out No longer e ligible based on patient's age to complete this topic [facility]-Rotavirus Vaccines Aged Out No lo nger eligible based on patient's age to complete this topic Procedures Procedure Name Priority Date/Time Associated Diagnosis Comments HEMOGLOBIN A1C Add-On 02/14/2021 4:39 PM EST from Last 3 Months or Most Recently Relevant to Health Maintenance Results * Hemoglobin A1c (02/14/2021 4:39 PM EST) Hemoglobin A1c 5.5 <5.7 % 02/14/2021 9:36 PM EST [facility] Blood Venous blood specimen / Unknown Venipuncture / Unknown 02/14/2021 4:39 PM EST 02/14/2021 4:52 PM EST Narrative [facility] - 02/14/2021 9:36 PM EST HA1C Interpretive Data: Diagnosis of Diabetes: Diabetic > or = 6.5% Pre-diabetic 5.7 to 6.4% Non-diabetic < or = 5.6% Glycemic Targets for Type I and Type II Diabetics: Non- Adults <7.0% Adults <6.0% Children and Adolescents <7.5% Source: Citizen Of [place] Diabetes Association. Standards of medical care in diabetes,2017. Diabetes Care.2017:40 (suppl 1):S1-S135. HbA1c assay performed by an ion-exchange chromatography method that is certified traceable to the DCCT. us Janet Kang MD LAB BLOOD ORDERABLES Final Res [facility] [address] [place] [address] from Last 3 Months or Most Recently Relevant to Health Maintenance Insurance [facility] MEDICARE [place]ID[place] Advance Directives * Full Code (Latest Code Status on File) Date Activated Date Inactivated Comments 03/01/2022 4:41 PM 03/12/2022 5:02 PM Question Answer Comments Patient has decision-making capacity? Yes * Full Code Date Activated Date Inactivated Comments 02/14/2021 9:23 PM 02/21/2021 7:16 PM Question Answer Comments Patient has decision-making capacity? Yes Care Teams Laser Beam Machine Operator Relationship Specialty Start Date End Date Dante Hutchinson MD [address] [facility] [address] [place] [id number] [facility] - General 08/03/20
--- OUTSIDE RECORDS SUMMARY | 2024-08-31 12:40 | XMS_ITS | Data Portability ---
Author Organization [facility] Address [address] [facility] [address] [place] [address] Care Team Providers Care Front Worker Name Role Phone WALLY LANDON Referring Provider [phone] REED ESQUIVEL Primary Care Provider SHIRIN LUBIN Referring Provider [phone] Assessment Encounter Date Assessment Date Assessment LastModified [...] Bactrim DS 800 mg-160 mg tablet 2023 [facility] [address] [place] [address], [address], 4 12:09:37 nystatin 100,000 unit/gram topical cream 2023 024 [facility] [address] [place] [address], [address], 14:04:08 Patient TargetsNo targets recorded. Patient InstructionsNo instructions recorded. Reason for Referral None Reported. Results Created Date Observation Date Name Description Value Unit Range Abnormal Flag Note LastModifiedBy Organization Detail LastModifiedTime 02/01/20 24 02/01/2024 XR, cervi ann marie spine , 2 or 3 view [facility] [address] [place] [address] Patilara t Name: TRINITY Justo Reagan Frederick [...] ce of injury is seen. Previo us yarn conditioner ior fusion C3-C7. No hardwa re loosen ing or compli cation is indica lizet. There is slight anteri or listhe sis of C3 on C4 and C4-C5. IMPRES HAMZAH: Grossl y uncomp licate d appear ing yarn conditioner ior fusion C3-7 Interp reted By: Reed Guzman MD Electr onical ly Signed By: Reed Guzman MD on 2023 12:[address] Radiology [facility] [address] [place], [address], 02/17/2024 07:38:45 07/19/19 25 07/18/2024 XR, cervi ann marie spine , 2 or 3 view No observ ation record ed. [address] (X-Ray) [address], [place], [address], 08/02/2024 10:55:18 08/25/19 25 08/24/2024 MRI, cervi ann marie spine , w/o contr ast No observ ation record ed. COY Not Available 2024 14:41:07 Result Notes None recorded. Procedures Surgical History Date Name Laterality Status Provider Name and Address Organization Details Recorded Time placement of stent in pulmonary artery completed [facility] 07/08/2023 13:21:11 Cholecystectomy completed [facility] 07/08/2023 13:21:18 repair of hip completed [facility] 07/08/2023 13:21:30 hysterectomy completed [facility] 07/08/2023 13:21:36 Removal of tonsils completed [facility] 07/08/2023 13:21:46 ligation of fallopian tube completed [facility] 07/08/2023 13:21:56 Imaging Results None recorded. Procedure Notes None recorded. Medical Equipment None Reported. Allergies Allergen ID Allergen Name Allergen Category Reaction Reaction Severity Criticality Documentation Date Start Date Code Code System Note Provider Name and Address Organization Details Recorded Time 778414 Cipro medicatio n Not available Not available Not available 07/08/2023 43699 3 [facility] [place] 4 13:18:49 980636 isosorbid e medicatio n Not available Not available Not available 07/08/2023 6057 RxNorm [facility] [place] 4 13:19:00 093594 Fosamax medicatio n Not available Not available Not available 07/08/2023 82050 5 [facility] 4 13:19:09 266197 Lipitor medicatio n Not available Not available Not available 07/08/2023 23975 5 RxNorm OVER 40MG STATE D PT [facility] [place] 4 13:19:27 Medications Name Sig Start Date [...] Details Last Updated DateTime 06/15/2024 [facility]15[facility]2024 11:19:50 Date Recorded Body height Provider Name an d Address Organization Details Last Updated DateTime 02/01/2024 154.94 cm Sub[facility] 02/01/2024 13:46:15 Social History None recorded. Functional [...] Vein Thrombosis Y Osteoporosis/Osteopenia Y Heart Attack (OR) Y Sleep Apnea Y Hypertension Y Gynecological HistoryNo gynecological history recorded. Obstetrics History GPAL:G 0 P 0 0 0 0 Past Encounters Encounter ID Performer Location Encounter Start Date Encounter Closed Date Diagnosis/Indication Diagnosis SNOMED-CT Code Diagnosis ICD10 Code Diagnosis Note [id number] OSIEL ALFARO APRN [facility] [address] 07/08/2023 12:44:49 07/09/2023 04:54:57 Cervical spondylosis 667340683 M47.812 Cervical radiculopathy 36109531 M54.12 Spondylolisthesis 535717 003 M43.10 [id number] CORA HOGUE PA-C [facility] [address] [place] [id number] 10/07/2023 14:25:35 10/09/2023 15:35:11 Spinal stenosis in cervical region 74166223 M48.02 [id number] JORDON DRAKE MD SURGERY SCHEDULE [address] [place] [id number] 12/21/2023 09:25:57 12/22/2023 14:45:05 [id number] JORDON DRAKE MD [facility] [address] 0 01/06/2024 10:50:06 01/16/2024 04:28:18 [id number] JORDON DRAKE MD [facility] [address] [place] [address] 02/01/2024 13:13:18 02/02/2024 05:07:59 Postoperative care [id number] Z48.89 Patient is doing well. Will get [...] lesion. I have answered all her questions. [id number] AUBREY CHRISTIANSON PA-C [facility] [address] [place] [address] 02/25/2024 10:30:08 03/01/2024 10:39:59 History of cervical spine fusion 5625293744 101 Z98.1 [id number] CORA HOGUE PA-C [facility] [address] [place] [address] 06/15/2024 10:55:37 06/16/2024 08:36:21 Cervical spondylosis 946327621 M47.812 Health Concerns Section Related Observation LastModified by Organization Detai ls LastModified Time None Recorded Concern Status LastModified by Organization Details LastModified Time None Recorded Advance Directives Directive None Recorded Payers Insurance Date Sequence Insurance Name Policy Number Policy Hurd Covered Member ID Hurd Member ID Guarantor Name 06/12/2024 2 MEDICAID-PSYCHIATRIC CHOICES - FFS/TRADITION AL August Konrad [id number] August Konrad 06/12/2024 1 [facility] (MEDICARE REPLACEMENT/A DVANTAGE - PPO) [id number] August Konrad [id number] August Konrad 07/28/2023 2 [place]IT[place] August Konrad [id number] August Konrad Notes Date Note Type Note [...] intact hardware good alignment JORDON DRAKE MD [address] [place], [address], [facility] 02/01/2024 14:02:57 02/25/2024 text/html Trinity Silvestre [...] what is draining. AUBREY CHRISTIANSON PA-C [address] [place], [address], [facility] 02/25/2024 13:36:23 06/15/2024 text/html Ms. Meza [...] before the visit. CORA HOGUE PA-C [address] [place], [address], [facility] 06/15/2024 11:30:50 OBGyn Episode No OBEpisode recorded.
--- NOTE | 2024-08-31 12:41 | CA_ITS ---
APPROVED REPORT EXAM: Comprehensive 2D, Doppler, and color-flow Echocardiogram Conservation Of Resources Commissioner: Mallory De La Vega RVT Ht: 5 ft 1 in Wt: 165lbs BSA: 1.74 BP: 128/62 mmHg Indications: MITRAL INSUFFICIENCY,TAVR 07/08/24 2D Dimensions LA Volume 45.50 mL LA Volume Index 26.15 mL/m2 (M/F) 16-34 M-Mode Dimensions RVDd 2.08 cm (0.9-2.6) LA Diam 3.49 cm (1.9-4.0) LVDd 4.08 cm (3.5-5.7) LVDs 3.00 cm (3.5-5.7) IVSd 1.00 cm (0.6-1.1) PWd 0.52 cm (0.6-1.1) EF (Teich) 52.30% FS 26.50% EDV (Teich) 73.40 mL TAPSE 1.56 (<1.7) ESV (Teich) 35.00 mL LV Diastology E Decel Time 580 (160-240 msec) E/A Ratio 1.0 Aortic Valve AMRIT Index 1.15 cm2/m2 AoV Peak Neville. 126.5 (50-130 cm/s) AO Peak GR. 6.40 mmHg AO Mean GR. 3.40 (<5 mmHg) AO VTI 25.0 (18-25 cm) AMRIT (VTI) 2.04 (2.5-4.5 cm2) Mitral Valve MV E Max Neville. 155.0 (40-130 cm/s) MV A Velocity 151.0 (40-130 cm/s) E/A Ratio 1.03 MV Mean Gr. 5.70 (<2mmHg) MV PHT 170.0 ms Pulmonary Valve PV Peak Velocity 107.0 (50-150 cm/s) Tricuspid Valve TR P. Velocity 322.00 cm/s RAP Estimate 10.00 mmHg RVSP 51.60 mmHg Left Ventricle The left ventricle is normal size. The left ventricular systolic function is normal. The left ventricular ejection fraction is within the normal range. There is increased lV wall thickness. There is normal LV segmental wall motion. Diastolic function is indeterminate. LVEF is 55%. Right Ventricle The right ventricle is normal size. The right ventricular systolic function is normal. Atria Left atrium is moderately dilated. The right atrium size is normal. There is no Doppler evidence of interatrial shunt. Aortic Valve s/p TAVR. The prosthesis is well-seated. Peak velocity 1.3 m/s. Mean AV gradient 3 mmHg. Max AV gradient 7 mmHg. Trace central aortic regurgitation. No paravalvular leak. Mitral Valve Mild mitral annular calcification. The mitral valve leaflets are thickened. Mild mitral stenosis is present. Mean MV gradient is 6 mmHg (HR 58 bpm). Mild mitral regurgitation. Tricuspid Valve Tricuspid valve is grossly normal in structure and function. Trace tricuspid regurgitation. There is insufficent TR jet to estimate RVSP. Pulmonic Valve The pulmonary valve is normal in structure. Trace pulmonic regurgitation. Great Vessels The aortic root is normal in size. IVC is normal in size and collapses >50% with inspiration. Pericardium There is no pericardial effusion. Other Information Study Quality: Fair Conclusion Normal biventricular systolic function. Moderate LA dilation. s/p TAVR. Prosthesis well-seated. Acceptable transaortic gradients. No significant AI. Mild MS (mean MV gradient 6 mmHg at HR 58 bpm). Mild MR, mild TR. Electronically signed by : Bette Olvera MD 09/10/2024 16:44:53
--- OUTSIDE RECORDS SUMMARY | 2024-08-31 12:42 | XMS_ITS | Clinical Summary ---
Author Organization [facility] Address [address] [place] [address] Phone Care Team Providers Care Human Resources Consultant Name Role Phone Jc LAGUERRE, Mani Stark [facility] [ ] Conditions or Problems Problem Name Problem Code Onset Date Status Entry Date Provider Comment Standard Description Annotate Chronic kidney disease stage 3 001295003 (SNOMED CT) 08/20 Active 08/20 Grace funez [employer] Chronic kidney disease stage 3 RIGHT WILIAN INFECTION T84.50xD (ICD-10-CM ) 06/24 Active 06/24 Katerin Douglas Infection and inflammatory reaction due to unspecified internal joint prosthesis, subsequent encounter TOBACCO ABUSE 02137739 (SNOMED CT) Active Mani Greene MD Tobacco dependence syndrome OBESITY 033765401 (SNOMED CT) Active Janine Z Obesity 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 (ICD-10-CM ) 06/24 Active 06/24 Lexi W Other hereditary and idiopathic neuropathies MRSA 444109286 (SNOMED CT) 06/24 Active 06/24 Lexi W Methicillin resistant Staphylococcus aureus infection RIGHT WILIAN INFECTION T84.50xA (ICD-10-CM ) 06/24 Inactive 06/24 Lexi W Infection and inflammatory reaction due to unspecified internal joint prosthesis, initial encounter INF&INFLAM REACTION DUE INTRL JOINT PROSTHESIS T84.50xA (ICD-10-CM ) 06/24 Correction 06/24 Anetra D Forrester Infection and inflammatory reaction due to unspecified internal joint prosthesis, initial encounter METHICILLIN RESISTANT STAPHYLOCOC CUS AUREUS INFECTION 799540839 (SNOMED CT) 06/24 Correction 06/24 Anetra D Forrester Methicillin resistant Staphylococcus aureus infection E COLI INFECTION 99838761 (SNOMED CT) 06/24 Active 06/24 Anetra D Forrester Infection caused by Escherichia coli HIP JOINT REPLACEMENT Z96.649 (ICD-10-CM ) 06/24 Active 06/24 Anetra D Forrester Presence of unspecified artificial hip joint OTHER SPECIFIED IDIOPATHIC PERIPHERAL NEUROPATHY 39887552 (SNOMED CT) 06/24 Correction 06/24 Anetra D Forrester Idiopathic peripheral neuropathy DIABETES MELLITUS 78395760 (SNOMED CT) 06/24 Active 06/24 Anetra D Forrester Diabetes mellitus Medications Medication Instructions Start Date Stop Date Generic Name NDC Provider RANEXA 500 MG ORAL TABLET EXTENDED RELEASE 12 HOUR 1 tablet twice daily. 08/20 RANOLAZINE [id number] Grace funez APRN CLOPIDOGREL BISULFATE 75 MG TABS daily 08/20 CLOPIDOGREL BISULFATE 77730789352 Grace funez APRN HYDROCHLOROTHIAZIDE 25 MG TABS 05/08 HYDROCHLOROTHIAZIDE 08977462823 Grace funez APRN BACTRIM DS 800-160 MG TABS Take one by mouth daily 08/20 SULFAMETHOXAZOLE-TR IMETHOPRIM 62167469556 Grace funez APRN LISINOPRIL 5 MG TABS 05/08 LISINOPRIL 40718213857 Grace funez APRN METFORMIN HCL 500 MG TABS 3X per day 08/20 METFORMIN HCL 33073996230 Grace funez APRN BACTRIM DS 800-160 MG TABS take 1 po daily 11/21 SULFAMETHOXAZOLE-TR IMETHOPRIM 41071574419 Mani Greene MD BACTRIM DS 800-160 MG TABS Take one by mouth daily 06/21 SULFAMETHOXAZOLE-TR IMETHOPRIM 15779220781 Mani Reagan SOLN sliding scale 01/11 INSULIN REGULAR HUMAN SOLN 48318615507 Mani Greene MD PREDNISONE 10 MG TABS 01/11 PREDNISONE 27550652014 Mani Greene MD METFORMIN HCL 500 MG TABS 3X per day 08/20 METFORMIN HCL 22266880833 Mani Greene MD ZETIA 10 MG TABS 05/08 EZETIMIBE 54066083044 Mani Greene MD NAPROSYN TABS NAPROXEN TABS 25677069425 Janine Paul HUMULIN R SOLN sliding scale 06/21 INSULIN REGULAR HUMAN SOLN 20043630513 Janine Paul PREDNISONE 10 MG TABS 01/11 PREDNISONE 62907319400 Janine Paul GLIPIZIDE ER 10 MG [id number] 05/08 GLIPIZIDE 79448965242 Lexi W TRAMADOL-ACETAMINOPH EN 37.5-325 MG TABS 04/07 TRAMADOL-ACETAMINOP HEN 14699960549 Lexi W METOPROLOL SUCCINATE ER 50 MG [id number] 05/08 METOPROLOL SUCCINATE 61427108065 Lexi W HYDROCHLOROTHIAZIDE 25 MG TABS 05/08 HYDROCHLOROTHIAZIDE 89496386715 Lexi W FUROSEMIDE 20 MG TABS 05/08 FUROSEMIDE 29078921626 Lexi W FLUTICASONE PROPIONATE 50 MCG/ACT SUSP 11/05 FLUTICASONE PROPIONATE 93359177525 Lexi W CALCITONIN (SALMON) 200 UNIT/ACT SOLN 05/08 CALCITONIN (SALMON) 68871018167 Lexi W ZETIA 10 MG TABS 05/08 EZETIMIBE 86764628275 Lexi W SULFAMETHOXAZOLE-TRI METHOPRIM 800-160 MG TABS 05/21 SULFAMETHOXAZOLE-TR IMETHOPRIM 01432585602 Lexi W PROAIR HFA 108 (90 Base) MCG/ACT INHALATION AEROSOL SOLUTION 06/22 ALBUTEROL SULFATE 72476002750 Lexi W POTASSIUM CHLORIDE ER 10 MEQ CR-CAPS 05/22 POTASSIUM CHLORIDE 38564255073 Lexi W METFORMIN HCL 500 MG TABS 05/22 METFORMIN HCL 21925845434 Lexi W LISINOPRIL 5 MG TABS 05/08 LISINOPRIL 65168056780 Lexi W GABAPENTIN 100 MG CAPS 05/21 GABAPENTIN 56576170664 Lexi W BUPROPION HCL ER (XL) 150 MG [id number] 05/08 BUPROPION HCL 00782261842 Lexi W ATORVASTATIN CALCIUM 20 MG TABS 05/08 ATORVASTATIN CALCIUM 53798160650 Lexi W BACTRIM DS 800-160 MG TABS take 1 po daily 11/21 SULFAMETHOXAZOLE-TR IMETHOPRIM 98985485752 Mani Greene MD TRIAMCINOLONE ACETONIDE 0.1 % CREA apply as directed bid 11/21 TRIAMCINOLONE ACETONIDE 85021464496 Mani Greene MD Medications Administered No information available. Allergies, Adverse Reactions, Alerts Allergy Name Reaction Description Start Date Severity Statu s Provider ISOSORBIDE MONONITRATE vison impaired Moderate Active Grace Morales APRN TB SKIN TEST generalized swelling of arm and pain Mild Active Janine Z FOSAMAX Moderate Active Anetra D Forrester CIPRO Moderate Active Anetra D Forrester Results Date Name Value Unit Range Flag Description Lab Report: CBC w Auto Diff IMM GRANU % 0.4 % 0.0-0.6 N Immature granulocytes/100 leukocytes in Blood BASOPHIL % 0.4 % 0.0-1.0 N Basophils/ 100 leukocytes in Blood by Manual count % EOS AUTO 6.4 % 0.0-3.0 H Eosinophil s/100 leukocytes in Blood by Automated count MONOCYTE BF 5.8 % 0.0-12.0 N monocyte s as percent of body fluid leukocytes LYMPHOCY BF 31.5 % 24.0-44.0 N lymphoc ytes as percent of body fluid leukocytes NEUTROP BF 55.5 % 41.0-71.0 N Neutroph ils/100 leukocytes in Body fluid BASOABSOLMAN 0.03 K/MCL {Cells}/u L 0.00-0.20 N basophils, absolute, manual EOS ABSLT 0.53 10*3/uL 0.10-0.30 H Eosinophi ls [#/volume] in Blood MONOCYTABMAN 0.48 K/MCL {Cells}/u L 0.00-1.00 N monocytes, absolute, manual LYMPHSABSMAN 2.61 K/MCL {Cells}/u L 0.60-4.80 N lymphocytes, absolute, manual ABS NEUTROPH 4.61 10*3/uL 1.50-8.30 N Neutro phils [#/volume] in Blood PLATELETS 387 10*3/mm3 150-450 N Platelets [#/volume] in Blood by Automated count RDW_ 13.6 11.3-14.5 N RDW, no uni ts MCHC 32.8 G/DL 32.0-36.0 N MCHC [Mass/ volume] by Automated count MCH 30.3 pg 27.0-31.0 N MCH [Entiti c mass] by Automated count MCV 92.1 fL 80.0-99.0 N MCV [Entiti c volume] by Automated count HCT 39.9 % 34.5-44.0 N Hematocrit [Volume Fraction] of Blood by Automated count HGB 13.1 g/dL 11.5-15.5 N Hemoglobin [Mass/volume] in Blood RBC 4.33 M/MCL 10*6/mm3 3.89-5.14 N Erythro cytes [#/volume] in Blood by Automated count WBC 8.29 10*3/mm3 3.50-10.8 0 N Leukocytes [#/volume] in Blood by Automated count Lab Report: Comprehensive Me tabolic Panel ANIONGAP 6 mmol/L 3-11 N anion gap, s venita GFRC 44 mL/min/1. 73m2 Glomerular Filtration Rate Calculation ALBUMIN 4.7 g/dL 3.2-4.8 N Albumin [Mass/volume] in Serum or Plasma PROTEIN, TOT 6.7 g/dL 5.7-8.2 N Protein [Mass/volume] in Serum or Plasma BILI TOTAL 0.2 mg/dL 0.3-1.2 L Bilirubin. total [Mass/volume] in Serum or Plasma SGPT (ALT) 24 U/L 7-40 N Alanine aminotransferase [Enzymatic activity/volume] in Serum or Plasma SGOT (AST) 21 U/L 0-33 N Aspartate aminotransferase [Enzymatic activity/volume] in Serum or Plasma ALK PHOS 79 U/L 25-100 N Alkaline samia sphatase [Enzymatic activity/volume] in Blood CALCIUM 10.4 mg/dL 8.7-10.4 N Calcium [Moles/volume] in Serum or Plasma CO2 30 mmol/L 20-31 N Carbon dioxid e, total [Moles/volume] in Venous blood CHLORIDE 101 mmol/L 99-109 N Chloride [Moles/volume] in Serum or Plasma POTASSIUM 4.2 mmol/L 3.5-5.5 N Potassium [Moles/volume] in Serum or Plasma SODIUM 137 mmol/L 132-146 N Sodium [Moles/volume] in Serum or Plasma CREATININE 1.3 mg/dL 0.6-1.3 N Creatinine [Mass/volume] in Serum or Plasma BUN 30 mg/dL 9-23 H Urea nitrogen [Mass/volume] in Serum or Plasma GLUCOSE SER 161 mg/dL 70-100 H Glucose [Mass/volume] in Serum or Plasma Lab Report: ESR (Sed Rate) ESR 21 mm/h 0-30 N Erythrocyte sedimentation rate by Westergren method Lab Report: C-Reactive Prote in CRPCARDRISK 2.4 mg/L 0.000-10. 0 N C reactive protein [Mass/volume] in Serum or Plasma Office Visit: rm. #4 MEDS REVIEW Done Documenta tion of current medications (procedure) SMOK STATUS Former smoker Tobacco smoking status Plan of Care Type Date Detail Pending order Hepatitis C Atb: (ICD 10 Code: Z11.59) Pending order Continue oral an tibiotics Pending order CMP Pending order CBC with Differe ntial Pending order C- reactive prot ein Pending order Sedimentation Ra te (ESR) Pending order Continue oral an tibiotics Pending order CMP Pending order CBC with Differe ntial Pending order C- reactive prot ein Pending order Continue oral an tibiotics Pending order Continue oral an tibiotics Patient education Medications Patient education WEIGHT%20MANAG EMENT Procedures Code Procedure Name Date Entry Date CPT-Cooral Continue oral antibiotics 20 04/02/05 CPT-99124 CMP [id number] CBC with Differential 2014 CPT-34036 C- reactive protein CPT-39754 Sedimentation Rate (ESR) 201 07/31/04 CPT-Cooral Continue oral antibiotics 20 03/01/23 CPT-96763 CMP CPT-04599 CBC with Differential CPT-09141 C- reactive protein CPT-Cooral Continue oral antibiotics 20 02/24/12 Vital Signs Date Name Value Unit Description BMI (Body Mass Index) 33.21 kg/m2 Bod y Mass Index (Ratio) Body Temperature 97.5 [degF] temperat ure E&M BP Diastolic 62 mm[Hg] blood pressu re, diastolic BP Systolic 110 mm[Hg] blood pressur e, systolic Heart Rate 90 /min pulse rate Respiratory Rate 22 /min respirat ory rate E&M Weight Measured 175.8 [lb_av] weight E& M Weight Measured 175.8 [lb_av] weight E& M Height 61 [in_us] height E&M Immunizations Vaccine Administration Date Standard Description CVX Co de Dose Prevnar 13 Intramuscular Suspension Prevnar 13 Intramuscular Suspension 133 0.5 mL FLU VAX 88 0.5 ml Advance Directives No information available.
--- OUTSIDE RECORDS SUMMARY | 2024-08-31 12:44 | XMS_ITS | Encounter Summary ---
Author Organization Healthcare Address [address] [place] [address] Care Team Providers Care Payroll And Benefits Assistant Name Role Phone Dante Hutchinson MD Primary Care Provider [phone] Encounter Details Date Type Department Care Team (Late st Contact Info) Description 03/03/2022 Lab Requisition [facility] H Lab [address] [place] [address] Yola Cruz MD [address] [facility] 7[address] [facility] [address] [place] [address] Encounter for general adult medical examination without abnormal findings Social History Tobacco Use Types Packs/Day Years Used Date Smoking Tobacco: Every Day Cigarettes Smokeless Tobacco: Never Alcohol Use Standard Drinks/Week Comments Never 0 [...] drink first 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 0 03/02/2022 CAGE Questionnaire Score 0 022 Comments Unknown Sex and Gender Information Value Date Recorded Sex Assigned at Not on file Legal Sex Female 6:52 PM EDT Gender Identity Not on file Sexual Orientation Not on file COVID-19 Exposure Response Date Recorded In the last 10 days, have yo u been in contact with someone who was confirmed or suspected to have Coronavirus/COVID-19? No / Unsure 03/02/2022 8:19 AM EST documented as of this encounter Functional Status * Calculated C-SSRS Risk Score (Lifetime/Recent) Answer Date of Assessment Author No Risk Indicated 03/06/2022 8:00 PM EST Chicho Brumfield RN * Question Answer Date of Assessment Author 1. Wish to be (Past 1 Month) No 022 8:00 PM EST Chicho Brumfield RN 2. Non-Specific Active Suici yazmin Thoughts (Past 1 Month) No 03/06/2022 8:00 PM EST Kiran Brumfield RN 6. Suicidal Behavior (Lifetime) No 8:00 PM EST Chicho Brumfield RN documented as of this encounter Plan of Treatment Not on file documented as of this encounter Procedures Procedure Name Priority Date/Time Associated Diagnosis Comments MULTI DRUG RESISTANCE TEST Routine 03/03/2022 7:45 AM EST Encounter for general adult medical examination without abnormal findings documented in this encounter Results * Multi Drug Resistance Test (03/03/2022 7:45 AM EST) Culture No growth at day 1 03/04/2022 4:33 PM EST [facility] Swab (Nares and Joelle Rectal) 03/03/2022 7:45 AM EST 03/03/2022 1:04 PM EST Yola Correa MD LAB MICROBIOLOGY - GENERAL ORDERABLES Final Result [facility] [address] [place] [address] documented in this encounter Visit Diagnoses Diagnosis Encounter for general adult medical examination without abnormal findings documented in this encounter Additional Health Concerns Infection Onset Date Last Indicated Resolved Time COVID 19 (Confirmed) Comment:IPA has verified patient has a COVID-19 positive result. A chart review has been completed, EPI PUI has been completed and sent to appropriate Health Dept. IPAC Mid Wife: Portillo Arias Previous test documentation in media tab. See IPAC note - Leilanibong Jaquelin 02/16/2022 03/01/2022 03/05/2022 10:57 AM EST documented as of this encounter Care Teams Payroll And Benefits Assistant Relationship Specialty Start Date End Date Dante Hutchinson MD [address] [facility] [address] [place] [address] PCP - General 08/03/20 documented as of this encounter
--- OUTSIDE RECORDS SUMMARY | 2024-08-31 12:44 | XMS_ITS | Data Portability ---
Author Organization [facility] Address [address] [place] [address] Assessment Encounter Date Assessment Date Assessment LastModified by Organization Details LastModified Time 04/17/2023 04/17/2023 PULMONARY CONSULTATION HISTORICAL : This 72 year old female was admitted to the facility on 04/08/2023 after hospitalization at [facility] where she presented with AMS and increased tremors. She was admitted with UTI. Once stabilized she was referred here for subacute rehabilitation. Pulmonary consult was requested for patients history of acute respiratory failure with hypoxia, asthma, RANDY, COPD and pulmonary nodule. SUBJECTIVE : The patient was seen and evaluated at the bedside while lying in low Fowlers position. The patient states that her breathing is good at rest. She does admit to exertional dyspnea and intermittent cough. Denies fevers, chills, chest pain, nausea, vomiting, diarrhea. States that her appetite is good and she is sleeping well. CODE STATUS : Full Code ALLERGIES : Alendronic Acid, Atorvastatin, Isosorbide Nitrate, Tuberculin PAST MEDICAL & SURGICAL HISTORY: Comorbidities include but are not limited to COPD on home O2, tremors, HTN, HLD, CAD, RANDY, DM II, obesity, chronic debility, anemia, arthritis, asthma, A fib, H/O exposure to TB, H/O GI bleed, hilar lymphadenopathy, H/O NSTEMI, h/o rheumatic fever, h/o SIRS, stage 3 CKD, h/o tobacco use, neuropathy. Cholecystectomy, h/o coronary artery stents, hip surgery2, removal of ovary. FAMILY HISTORY: No inheritable pulmonary diseases. SOCIAL HISTORY: Denies illicit drug use or alcohol abuse. SMOKING? MEDICATIONS: *See MAR for a complete medication list including dosages and frequencies. REVIEW OF SYSTEMS: *As noted in the HPI above. VITAL SIGNS T: 97.7 BP: 97/39 HR: 77 RR: 20 SpO2: 92% PHYSICAL EXAM : Awake alert oriented 3, no acute distress, non toxic in appearance. Pupils equal, round, and reactive to light and accommodation, extraocular muscles intact, sclera anicteric. Mucous membranes moist, nares patent. Neck supple, no JVD, thyromegaly, lymphadenopathy. Auscultation of lungs revealed decreased breath sounds bilaterally. No rales, rhonchi, or wheezing. Heart rate regular, plus S1/S2, no murmurs, rubs, gallops. Abdomen non distended, nontender, positive bowel sounds, no rebound, rigidity, or guarding. Extremities without cyanosis clubbing or edema. LABS/STUDIES REVIEWED : *Bicarbonate: 25 (04/09/2023) *Hemoglobin: 9.6 (04/09/2023) *CXR (04/10/2023): No acute cardiopulmonary process. No definitive radio graphic evidence of TB. ASSESSMENT & PLAN : 1. History of acute respiratory failure with hypoxia *Continue Oxygen 2 L n/c prn *Monitor oxygen saturation every shift, avoid hyperoxia 2. CPOD/Asthma *Continue Fluticasone-salmet patti 250/50 mcg 1 puff BID-rinse mouth after each use *Continue Spiriva Respimat 1.25mcg 2 puffs daily *Continue Albuterol HFA prn 3. RANDY *Declines CPAP; Continue Oxygen 2L n/c nightly in lieu of CPAP 4. History of pulmonary nodule *Chest CT after d/c 5. Anemia *Continue Ferrous Sulfate 1 BID MEDICAL DECISION MAKING: *Labs reviewed *Imaging reviewed *Medications reviewed *Progress notes reviewed *Discussed with nursing staff *Plan communicated to the primary care physician [email or web address] Not available 04/20/2023 10:02:18 04/24/2023 04/24/2023 PULMONARY CONSULTATION SUBJECTIVE : The patient was seen and evaluated at the bedside while sitting up right in a wheel chair. The patient states that her breathing is good at rest. She does admit to exertional dyspnea and intermittent dry cough. Denies fevers, chills, chest pain, nausea, vomiting, diarrhea. States that her appetite is good and she is sleeping well. HISTORICAL : This 72 year old female was admitted to the facility on 04/08/2023 after hospitalization at [facility] where she presented with AMS and increased tremors. She was admitted with UTI. Once stabilized she was referred here for subacute rehabilitation. Pulmonary consult was requested for patients history of acute respiratory failure with hypoxia, asthma, RANDY, COPD and pulmonary nodule. CODE STATUS : Full Code ALLERGIES : Alendronic Acid, Atorvastatin, Isosorbide Nitrate, Tuberculin PAST MEDICAL & SURGICAL HISTORY: Comorbidities include but are not limited to COPD on home O2, tremors, HTN, HLD, CAD, RANDY, DM II, obesity, chronic debility, anemia, arthritis, asthma, A fib, H/O exposure to TB, H/O GI bleed, hilar lymphadenopathy, H/O NSTEMI, h/o rheumatic fever, h/o SIRS, stage 3 CKD, h/o tobacco use, neuropathy. Cholecystectomy, h/o coronary artery stents, hip surgery2, removal of ovary. FAMILY HISTORY: No inheritable pulmonary diseases. SOCIAL HISTORY: Denies illicit drug use or alcohol abuse. SMOKING? MEDICATIONS: *See MAR for a complete medication list including dosages and frequencies. REVIEW OF SYSTEMS: *As noted in the HPI above. VITAL SIGNS T: 97.5 BP: 149/88 HR: 74 RR: 16 SpO2: 98% PHYSICAL EXAM : Awake alert oriented 3, no acute distress, non toxic in appearance. Pupils equal, round, and reactive to light and accommodation, extraocular muscles intact, sclera anicteric. Mucous membranes moist, nares patent. Neck supple, no JVD, thyromegaly, lymphadenopathy. Auscultation of lungs revealed decreased breath sounds bilaterally. No rales, rhonchi, or wheezing. Heart rate regular, plus S1/S2, no murmurs, rubs, gallops. Abdomen non distended, nontender, positive bowel sounds, no rebound, rigidity, or guarding. Extremities without cyanosis clubbing or edema. LABS/STUDIES REVIEWED : *Bicarbonate: 25 (04/09/2023) 23 (04/06/2023) 26 (04/04/2023) *Hemoglobin: 9.6 (04/09/2023) 9.8 (04/06/2023) 10.9 (04/04/2023) *CXR (04/10/2023): No acute cardiopulmonary process. No definitive radio graphic evidence of TB. ASSESSMENT & PLAN : 1. History of acute respiratory failure with hypoxia *Continue Oxygen 2 L n/c prn *Monitor oxygen saturation every shift, avoid hyperoxia 2. CPOD/Asthma *Continue Fluticasone-salmet patti 250/50 mcg 1 puff BID-rinse mouth after each use *Continue Incruse 1 puff daily *Continue Albuterol HFA prn 3. RANDY *Declines CPAP; Continue Oxygen 2L n/c nightly in lieu of CPAP 4. History of pulmonary nodule *Chest CT after d/c 5. Anemia *Continue Ferrous Sulfate 1 BID MEDICAL DECISION MAKING: *Medications reviewed *Progress notes reviewed *Discussed with nursing staff *Plan communicated to the facility provider Not available 04/24/2023 18:53:26 01/01/2024 01/01/2024 PULMONARY CONSULTATION HISTORICAL : This 73 year-old female was admitted to the facility on 12/24/2023 after hospitalization at [place] for cervical stenosis of the spinal canal. Patient underwent C3-C7 posterior lateral arthrodesis and fusion with C3-C6 laminectomy. Patient was sent her for subacute rehab. Pulmonary consult for history of acute respiratory failure with hypoxia, asthma, RANDY, COPD and pulmonary nodule. This 72 year old female was admitted to the facility on 04/08/2023 after hospitalization at [facility] where she presented with AMS and increased tremors. She was admitted with UTI. Once stabilized she was referred here for subacute rehabilitation. Pulmonary consult was requested for patients history of acute respiratory failure with hypoxia, asthma, RANDY, COPD and pulmonary nodule. SUBJECTIVE : The patient was seen and evaluated at the bedside while laying in the low fowlers position. The patient states that her breathing is good at rest. She does admit to exertional dyspnea and intermittent dry cough. Denies fevers, chills, chest pain, nausea, vomiting, diarrhea. States that her appetite is good and she is sleeping well. Patient would like to continue home inhalers Spiriva and Dulera. She is currently receiving Incruse and in unable to tolerate DPI's. CODE STATUS : Full Code ALLERGIES : Alendronic Acid, Atorvastatin, Isosorbide Nitrate, Tuberculin PAST MEDICAL & SURGICAL HISTORY: Comorbidities include but are not limited to COPD on home O2, tremors, HTN, HLD, CAD, RANDY, DM II, obesity, chronic debility, anemia, arthritis, asthma, A fib, H/O exposure to TB, H/O GI bleed, hilar lymphadenopathy, H/O NSTEMI, h/o rheumatic fever, h/o SIRS, stage 3 CKD, h/o tobacco use, neuropathy. Cholecystectomy, h/o coronary artery stents, hip surgery2, removal of ovary. FAMILY HISTORY: No inheritable pulmonary diseases. SOCIAL HISTORY: Denies illicit drug use or alcohol abuse. SMOKING? MEDICATIONS: *See MAR for a complete medication list including dosages and frequencies. REVIEW OF SYSTEMS: *As noted in the HPI above. VITAL SIGNS T: 97.8 BP: 132/60 HR: 67 RR: 18 SpO2: 95.0% Weight: 150.8 (12/29/2023) PHYSICAL EXAM : Awake alert oriented 3, no acute distress, non toxic in appearance. Pupils equal, round, and reactive to light and accommodation, extraocular muscles intact, sclera anicteric. Mucous membranes moist, nares patent. Neck supple, no JVD, thyromegaly, lymphadenopathy. Auscultation of lungs revealed decreased breath sounds bilaterally. No rales, rhonchi, or wheezing. Heart rate regular, plus S1/S2, no murmurs, rubs, gallops. Abdomen non distended, nontender, positive bowel sounds, no rebound, rigidity, or guarding. Extremities without cyanosis clubbing or edema. LABS/STUDIES REVIEWED : *Bicarbonate: 24 (12/28/2023) 25 (04/09/2023) 23 (04/06/2023) 26 (04/04/2023) *Hemoglobin: 10.2 (12/28/2023) 9.6 (04/09/2023) 9.8 (04/06/2023) 10.9 (04/04/2023) *CXR (04/10/2023): No acute cardiopulmonary process. No definitive radio graphic evidence of TB. ASSESSMENT & PLAN : 1. History of acute respiratory failure with hypoxia *Continue Oxygen 2 L n/c prn *Monitor oxygen saturation every shift, avoid hyperoxia 2. CPOD/Asthma *Family to bring in home Dulera and Spiriva for use *Continue Albuterol HFA prn 3. RANDY *Declines CPAP; Continue Oxygen 2L n/c nightly in lieu of CPAP 4. History of pulmonary nodule *Chest CT after d/c *Patient follows with pulmonary in [place] 5. Anemia *Continue Ferrous Sulfate 1 BID MEDICAL DECISION MAKING: *Hospital discharge reviewed *Progress notes reviewed *Vitals reviewed *Medications reviewed *Medications ordered *Labs reviewed *Imaging reviewed *Plan communicated with nursing staff *Plan communicated to the facility provider Not available 01/08/2024 08:17:14 01/08/2024 01/08/2024 PULMONARY PROGRE SS NOTE SUBJECTIVE : The patient was seen and evaluated at the bedside while laying in the low fowlers position. The patient states that her breathing is good at rest. She does admit to exertional dyspnea and intermittent dry cough states it has improved since resuming Dulera and Spiriva. Denies fevers, chills, chest pain, nausea, vomiting, diarrhea. States that her appetite is good and she is sleeping well. HISTORICAL : This 73 year-old female was admitted to the facility on 12/24/2023 after hospitalization at [place] for cervical stenosis of the spinal canal. Patient underwent C3-C7 posterior lateral arthrodesis and fusion with C3-C6 laminectomy. Patient was sent her for subacute rehab. Pulmonary consult for history of acute respiratory failure with hypoxia, asthma, RANDY, COPD and pulmonary nodule. This 72 year old female was admitted to the facility on 04/08/2023 after hospitalization at [facility] where she presented with AMS and increased tremors. She was admitted with UTI. Once stabilized she was referred here for subacute rehabilitation. Pulmonary consult was requested for patients history of acute respiratory failure with hypoxia, asthma, RANDY, COPD and pulmonary nodule. CODE STATUS : Full Code ALLERGIES : Alendronic Acid, Atorvastatin, Isosorbide Nitrate, Tuberculin PAST MEDICAL & SURGICAL HISTORY: Comorbidities include but are not limited to COPD on home O2, tremors, HTN, HLD, CAD, RANDY, DM II, obesity, chronic debility, anemia, arthritis, asthma, A fib, H/O exposure to TB, H/O GI bleed, hilar lymphadenopathy, H/O NSTEMI, h/o rheumatic fever, h/o SIRS, stage 3 CKD, h/o tobacco use, neuropathy. Cholecystectomy, h/o coronary artery stents, hip surgery2, removal of ovary. FAMILY HISTORY: No inheritable pulmonary diseases. SOCIAL HISTORY: Denies illicit drug use or alcohol abuse. SMOKING? MEDICATIONS: *See MAR for a complete medication list including dosages and frequencies. REVIEW OF SYSTEMS: *As noted in the HPI above. VITAL SIGNS T: 97.5 BP: 156/69 HR: 68 RR: 16 SpO2: 98.0% Weight: 151.8 (01/04/2024) 150.8 (12/29/2023) PHYSICAL EXAM : Awake alert oriented 3, no acute distress, non toxic in appearance. Pupils equal, round, and reactive to light and accommodation, extraocular muscles intact, sclera anicteric. Mucous membranes moist, nares patent. Neck supple, no JVD, thyromegaly, lymphadenopathy. Auscultation of lungs revealed decreased breath sounds bilaterally. No rales, rhonchi, or wheezing. Heart rate regular, plus S1/S2, no murmurs, rubs, gallops. Abdomen non distended, nontender, positive bowel sounds, no rebound, rigidity, or guarding. Extremities without cyanosis clubbing or edema. LABS/STUDIES REVIEWED : *Bicarbonate: 24 (12/28/2023) 25 (04/09/2023) 23 (04/06/2023) 26 (04/04/2023) *Hemoglobin: 10.2 (12/28/2023) 9.6 (04/09/2023) 9.8 (04/06/2023) 10.9 (04/04/2023) *CXR (04/10/2023): No acute cardiopulmonary process. No definitive radio graphic evidence of TB. ASSESSMENT & PLAN : 1. History of acute respiratory failure with hypoxia *Continue Oxygen 2 L n/c prn *Monitor oxygen saturation every shift, avoid hyperoxia 2. CPOD/Asthma *Continue home Dulera twice daily and Spiriva aily for use *Continue Albuterol HFA prn 3. RANDY *Declines CPAP; Continue Oxygen 2L n/c nightly in lieu of CPAP 4. History of pulmonary nodule *Chest CT after d/c *Patient follows with pulmonary in [facility] 5. Anemia *Continue Ferrous Sulfate 1 BID MEDICAL DECISION MAKING: *Hospital discharge reviewed *Progress notes reviewed *Vitals reviewed *Medications reviewed *Labs reviewed *Imaging reviewed *Plan communicated with nursing staff *Plan communicated to the facility provider Not available 01/08/2024 12:34:19 Plan of Treatment Reminders Order Date Submit Date Provider Last Modified By Organization Details Last Modified Time Details Appointments None record ed. Lab None record ed. Referral None record ed. Procedures None record ed. Surgeries None record ed. Imaging None record ed. Medication Orders None record ed. Patient TargetsNo targets recorded. Patient Instructions Encounter Date Encounter Id Patient Instructions Last Modified By Organization Details Last Modified Time 04/17/2023 [id number] CONSENT FOR ENROLLMENT IN CHRONIC CARE MANAGEMENT & REMOTE PATIENT MONITORING: The patient agrees to be enrolled in the Chronic Care Mangement (CCM) and Remote Patient Monitoring (RPM) programs. The patient has been counselled regarding availability of services and cost sharing responsibilities. The patient has been informed that CCM services can only be provided by one provider and that RPM services can be furnished by multiple providers during a 30-day period. The patient has informed of their right to revoke CCM/RPM services at any time and that services will terminate at the end of the current month. The patient has been counselled that they may be billed for a portion of CCM services even though CCM services will not involve a [id number] meeting with the provider. Not available 04/17/2023 15:23:42 01/01/2024 [id number] CONSENT FOR ENROLLMENT IN CHRONIC CARE MANAGEMENT & REMOTE PATIENT MONITORING: The patient agrees to be enrolled in the Chronic Care Mangement (CCM) and Remote Patient Monitoring (RPM) programs. The patient has been counselled regarding availability of services and cost sharing responsibilities. The patient has been informed that CCM services can only be provided by one provider and that RPM services can be furnished by multiple providers during a 30-day period. The patient has informed of their right to revoke CCM/RPM services at any time and that services will terminate at the end of the current month. The patient has been counselled that they may be billed for a portion of CCM services even though CCM services will not involve a [id number]-oi-[id number] meeting with the provider. Not available 01/01/2024 12:02:49 Reason for Referral None Reported. Results Created Date Observation Date Name Description Value Unit Range Abnormal Flag Note LastModifiedBy Organization Detail LastModifiedTime Result Notes None recorded. 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 Medical Equipment None Reported. Allergies Allergen ID Allergen Name Allergen Category Reaction Reaction Severity Criticality Documentation Date Start Date Code Code System Note Provider Name and Address Organization Details Recorded Time 02253 alendrona te sodium medicatio n Not available Not available Not available 04/17/2023 83721 2 RxNorm sukumar gil null, [place] - [facility] 4 15:24:00 36934 atorvasta tin medicatio n Not available Not available Not available 04/17/2023 45869 RxNorm sukumar gil null, [place] - [facility] 4 15:24:06 42108 isosorbid e medicatio n Not available Not available Not available 04/17/2023 6057 RxNorm sukumar gil null, [place] - [facility] 4 15:24:42 44884 purified protein derivativ e of tuberculi n medicatio n Not available Not available Not available 04/17/2023 8948 RxNorm sukumar gil null, [place] - [facility] 4 15:24:59 Medications Name Sig Start Date Stop Date [...] le 800 mg-trimethopri m 160 mg tablet active Not Available Not Available Not Available bisoprolol fumarate 10 mg tablet active Not Available Not Available Not Available levothyroxine 75 mcg tablet active Not Available Not Availabl e Not Available bisoprolol fumarate 5 mg tablet active Not Available Not Available Not Available calcitonin (salmon) 200 unit/actuation nasal spray active Not Available Not Available Not Available cephalexin 500 mg capsule active Not Available Not Available N ot Available pantoprazole 40 mg tablet,delayed release active Not Available Not Available Not Available nitroglycerin 0.4 mg sublingual tablet active Not Available Not Available Not Available montelukast 10 mg tablet active Not Available Not Available No t Available hydroxyzine HCl 25 mg tablet active Not Available Not Available Not Available mupirocin 2 % topical ointment active Not Available Not Available Not Available furosemide 20 mg tablet active Not Available Not Available No t Available gabapentin 100 mg capsule active Not Available Not Available N ot Available albuterol sulfate HFA 90 mcg/actuation aerosol inhaler active Not Available Not Available Not Available cefdinir 300 mg capsule TAKE ONE CAPSULE [...] Available Not Available N ot Available Vitals None Recorded Social History None recorded. Functional Status None recorded. Mental Status None recorded. Family History Nothing Reported. Medical History No medical history recorded. Gynecological HistoryNo gynecological history recorded. Obstetrics History GPAL:G 0 P 0 0 0 0 Past Encounters Encounter ID Performer Location Encounter Start Date Encounter Closed Date Diagnosis/Indication Diagnosis SNOMED-CT Code Diagnosis ICD10 Code Diagnosis Note [id number] Marcia Moscoso NP [address] [address] 04/17/2023 15:13:40 04/20/2023 12:31:14 Asthma-chronic obstructive pulmonary disease overlap syndrome 9481069767 9697077 J44.9 History of acute respiratory failure 3885664983 0365409 Z87.09 Nodule of lung 936658714 R91.1 Obstructiv e sleep apnea syndrome 62557155 G47.33 [id number] Marcia Moscoso NP [address] [address] 04/24/2023 13:43:31 04/28/2023 14:46:56 Asthma-chronic obstructive pulmonary disease overlap syndrome 9950141238 0473925 J44.9 History of acute respiratory failure 1978669617 6635926 Z87.09 Nodule of lung 661561164 R91.1 Obstructiv e sleep apnea syndrome 63875269 G47.33 [id number] Keenan Mcfarlane [address] [address] 01/01/2024 10:31:03 01/08/2024 08:31:25 Asthma-chronic obstructive pulmonary disease overlap syndrome 7180932704 7300345 J44.9 History of acute respiratory failure 9313341336 0761526 Z87.09 Nodule of lung 473343835 R91.1 Obstructiv e sleep apnea syndrome 86530071 G47.33 [id number] Keenan Mcfarlane [address] [address] 01/08/2024 08:35:35 01/08/2024 14:32:33 Asthma-chronic obstructive pulmonary disease overlap syndrome 6515478810 6598261 J44.9 History of acute respiratory failure 0313536786 0019587 Z87.09 Nodule of lung 232760150 R91.1 Obstructiv e sleep apnea syndrome 63855204 G47.33 Health Concerns Section Related Observation LastModified by Organization Detai ls LastModified Time None Recorded Concern Status LastModified by Organization Details LastModified Time None Recorded Advance Directives Directive None Recorded Payers Insurance Date Sequence Insurance Name Policy Number Policy Hurd Covered Member ID Hurd Member ID Guarantor Name 01/08/2024 1 [facility] (MEDICARE REPLACEMENT/A DVANTAGE - PPO) [id number] August Konrad [id number] [facility] Episode No OBEpisode recorded.
--- OUTSIDE RECORDS SUMMARY | 2024-08-31 12:47 | XMS_ITS | Clinical Summary ---
Author Organization [employer] Address [address] [place] [address] Care Team Providers Care Cloth Bleaching Supervisor Name Role Phone Zia Moore MD Primary Care Provider [phone] Jonathan Gallardo MD Unavailable Elvi Villavicencio MD Unavailable Carissa Drake MD Unavailable [phone] Devon Olea MD Unavailable [phone] Luis Whalen S Sleep Disorder Unavailable [phone] Carlo Chavez MD Unavailable Allergies Active Allergy Reactions Criticality Noted Date Comments Atorvastatin Other (See Comments) 11/20/2023 Muscle weakness Ciprofloxacin Hives,Itching,Other (See Comments) High 02/17/2021 Pt reports she is allergic to ciprofloxacin when it is mixed with any other antibiotics (rxn: itching) Alendronate 11/20/2023 dizziness Isosorbide 11/20/2023 Tuberculin Ppd Low 11/20/2023 Medications albuterol HFA (VENTOLIN HFA) 90 mcg/actuation inhaler Inhale 2 puffs by mouth every 4 (four) hours as needed. Active fluticasone propionate (FLONASE) 50 mcg/actuation nasal spray Administer 1 spray into affected nostril(s) daily. Active levothyroxine (TIROSINT) 75 mcg capsule Take 1 capsule (75 mcg total) by mouth daily. 4 Active magnesium oxide (MAG-OX) 400 mg (241.3 mg magnesium) tablet Take 1 tablet (400 mg total) by mouth daily. 4 Active primidone (MYSOLINE) 50 MG tablet Take 2 tablets (100 mg total) by mouth nightly. 4 Active acetaminophen (TYLENOL) 500 MG tablet Take 1 tablet (500 mg total) by mouth every 4 (four) hours as needed. Active ferrous sulfate 325 (65 FE) MG EC tablet Take 1 tablet (325 mg total) by mouth 2 (two) times daily. Active tiotropium (SPIRIVA) 18 mcg inhalation capsule Inhale 1 capsule (18 mcg total) by mouth daily. Active bisoprolol (ZEBETA) 5 MG tablet Take 2 tablets (10 mg total) by mouth daily. Active mometasone-formot patti (Dulera) 200-5 mcg/actuation inhaler Inhale 2 puffs by mouth 2 (two) times daily. Active clopidogreL (PLAVIX) 75 mg tablet Take 1 tablet (75 mg total) by mouth daily Restart on 12/26/23. 0 4 Active gabapentin (NEURONTIN) 100 MG capsule Take 1 capsule (100 mg total) by mouth 2 (two) times daily. 0 4 Active dapagliflozin propanediol (Farxiga) 10 mg tablet Take by mouth daily. Active aspirin 81 MG chewable tabletIndications :Mitral regurgitation Take 1 tablet (81 mg total) by mouth daily. 5 026 Active Additional Information Patient not taking.Reported on 08/09/2024 furosemide (LASIX) 20 MG tablet Take 1 tablet (20 mg total) by mouth Patient one tablet every Thursday and Thursday . Active Active Problems Problem Noted Date Diagnosed Date Mitral regurgitation 07/08/2024 Cervical stenosis of spinal canal 12/18/2023 (HFpEF) heart failure with preserved ejection fr action 12/15/2023 Acute on chronic renal failure 12/15/2023 Cervical lymphadenopathy 12/15/2023 Tobacco use 12/15/2023 Type 2 diabetes mellitus wit h diabetic neuropathy, without long-term current use of insulin 12/15/2023 CAD (coronary artery disease) 11/20/2023 Chronic kidney disease, stage 3 unspecified 03/23 Hyperlipidemia 04/08/2023 Non-STEMI (non-ST elevated myocardial infarction ) 04/08/2023 PAF (paroxysmal atrial fibrillation) 04/08/2023 Anxiety and depression 03/09/2022 Asthma-chronic obstructive p ulmonary disease overlap syndrome 03/09/2022 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 03/09/2022 Resolved Problems Problem Noted Date Diagnosed Date Resolved Date Mitral valve disease, rheumatic 11/20/2023 12/15/2023 Encounters Date Type Department Care Team Description 08/25/2024 Telephone [facility] Cardiology [address] [place] [address] [address] Jen Brian APRN Advice Only 08/09/2024 2:00 PM EDT Office Visit [facility] Cardiology [address] [place] [address] [address] Jen Brian 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 Mitral valve insufficiency, unspecified etiology (Primary Dx) 07/11/[address] [address] Zia Moore MD Hospital Follow Up 07/08/2024 7:28 AM EDT Anesthesia Event [facility] Cardiac Catheterization Lab [address] [place] [address] Miguelangel Laura MD Bowen, Jon B, MD 07/08/2024 5:03 AM EDT - 07/09/2024 4:40 PM EDT Hospital Encounter [facility] 4 Interventional Care Unit 1 [place] [address] Christa Gonzalez MD Mitral regurgitation Discharge Disposition: Home or Self Care 07/07/2024 10:35 AM EDT - 07/07/2024 11:59 PM EDT Hospital Encounter [facility] Preadmission Testing [address] [place] [address] Christa Gonzalez MD Mitral valve insufficiency, unspecified etiology (Primary Dx); Preop testing Discharge Disposition: Home or Self Care 07/07/2024 Travel 06/21/2024 Telephone [facility] Cardiology [address] [place] [address] Ana Cole, RN Appointment 06/01/2024 Telephone [facility] Short Stay Unit [address] [place] [address] Ana Cole, RN Appointment from Last 3 Months Family History Medical History Relation Name Comments Heart disease Father Hypertension Father Diabetes type II Mother Hypertension Mother Coronary artery disease Other Relation Name Status Comments Father Mother Other Social History Tobacco Use Types Packs/Day Years Used Date Smoking Tobacco: Former Cigarettes Passive Smoke Exposure: Current Smokeless Tobacco: Never Tobacco Cessation:Counseling Given: Not Answered Comments:Smoked for 50 yrs , Quit 3 [...] Never 07/08/2024 How often does anyone, juany amy family and friends, insult or talk down to you? Never 07/08/2024 How often does anyone, juany reyes family and friends, threaten you with harm? Never 07/08/2024 How often does anyone, rezatracie reyes family and friends, scream or curse [...] Do you speak a language other than Maori at [facility]? No 07/08/2024 Do you [...] PM CDT Sexual Orientation Not on file Last Filed Vital Signs Vital Sign Reading Time Taken Comments Blood Pressure 110/60 08/09/2024 2:37 PM EDT Pulse 62 08/09/2024 2:37 PM EDT Temperature 37.2 C (99 F) 07/09/2024 3:23 PM EDT Respiratory Rate 20 07/09/2024 3:23 PM EDT Oxygen Saturation 94% 07/09/2024 3:23 PM EDT Inhaled Oxygen Concentration - - Weight 75.3 kg (166 lb) 08/09/2024 2:37 PM EDT Height 154.9 cm (5' 1 ) 08/09/2024 2:37 PM EDT Body Mass Index 31.37 08/09/2024 2:37 PM EDT Plan of Treatment Health Maintenance Due Date Last Done Comments CT Colonography 1950 Colonoscopy 1950 Colorectal Cancer Screening 1950 DXA SCAN 1950 Diabetic Kidney Health Evalu ation (KED) 1950 FOBT/FIT 1950 Fit-DNA (Cologuard) 1950 Sigmoidoscopy 1950 Diabetic Eye Exam 1960 Diabetic foot exam 1960 Hepatitis C Screening 1968 Breast Cancer Screening 1990 Shingles Vaccine (Zoster) (1 of 2) 2000 Respiratory Syncytial Virus (RSV) Adult or (1 - Risk 60-74 years 1-dose series) 2010 COVID-19 VACCINE (2023-2 5 season) 2023 03/11/2021, 06/20/2020 Medicare IPPE (Welcome to Medicare) G0402 11/22/2023 Hemoglobin A1C 12/15/2023 Falls Risk Screening 03/23/2024 Tobacco Cessation Counseling and Screening (12+) 08/09/2025 08/09/2024 DTAP/TDAP/TD VACCINES (2 - T d or Tdap) 02/06/2033 02/06/2023 Pneumococcal 50+ years Completed 01/15/2022, 2013 Influenza Vaccine Completed 01/06/2024, , 11/20/2021, Additional history exists Medical Devices Implanted Type Area Rn Procedure Device Identifier Shelf Expiration Date Model / Serial / Lot St Scr - - [id number] Implanted:Qty : 10 on 12/18/2023 by Carissa Drake MD at [facility] IMPLANTS N/A: Spine Cervical J &J:DEPUY:DEPUY SPINE 1020000 / [id number] / Scr 4.0 Ply 3.5x12 1020-35-112 - [id number] Implanted:Qty : 10 on 12/18/2023 by Carissa Drake MD at [facility] IMPLANTS N/A: Spine Cervical J &J:DEPUY:DEPUY SPINE 1020-35-112 / [id number] / Rich Ti Rich 4.0x060 0-64-060 - [id number] Implanted:Qty : 2 on 12/18/2023 by Carissa Drake MD at [facility] IMPLANTS N/A: Spine Cervical J &J:DEPUY:DEPUY SPINE 1020-64-060 / [id number] / Bone Vivigen Formable Cell c -1600-002 - [id number] Implanted:Qty : 1 on 12/18/2023 by Carissa Drake MD at [facility] IMPLANTS N/A: Spine Cervical LIFENET:LIFENET TRANSPLANT SRV 11/25/2024 -1600-002 / [id number] / Fibergraft Mtrx 6.25cc [id number] - [id number] Implanted:Qty : 1 on 12/18/2023 by Carissa Drake MD at [facility] IMPLANTS N/A: Spine Cervical J &J:DEPUY:DEPUY SPINE 07/16/2026 [id number] / / [id number] Imp Sys Rasta Precsn [id number] - [id number] Implanted:Qty : 1 on 07/08/2024 at [facility] IMPLANTS Heart HONG LIFESCI [id number] / / Imp Sys Rasta Stbl Rail [id number] - [id number] Implanted:Qty : 1 on 07/08/2024 at [facility] IMPLANTS Heart HONG LIFESCI [id number] / / Imp Sys Rasta Precsn Mitral V Pas2ma - [id number] Implanted:Qty : 1 on 07/08/2024 at [facility] IMPLANTS Heart HONG LIFESCI PAS2MA / / Procedures Procedure Name Priority Date/Time Associated Diagnosis Comments FS_MODEL_IP_ECG 12-LEAD Routine 08/25/2024 12:48 PM EDT Mitral valve insufficiency, unspecified etiology NOVA GLUCOSE POC Routine 07/09/2024 11:2 0 [...] GLUCOSE POC Routine 07/08/2024 4:31 PM EDT ANESTHESIA TOBY Routine 07/08/2024 10:08 AM EDT CARDIAC CATH - TRANSCATHETER MITRAL VALVE REPAIR (TMVR) Routine 07/08/2024 9:54 AM EDT Mitral regurgitation POCT-ACT Routine 07/08/2024 9:14 AM EDT ANESTHESIA INTUBATION Routine 07/08/2024 8:16 AM EDT URINALYSIS W/ MICROSCOPIC STAT 07/08/2024 6:24 AM EDT ANTIBODY IDENTIFICATION ([place] BKR) Routine 07/08/2024 6:13 AM EDT TYPE AND SCREEN ([place] BKR) STAT 07/08/2024 6:13 AM EDT EKG-SCANNED 07/08/2024 COMPREHENSIVE METABOLIC PANEL Routine 07/07/2024 11:13 AM EDT Mitral valve insufficiency, unspecified etiology CBC W/ AUTO DIFF Routine 07/07/2024 11:1 3 AM EDT Mitral valve insufficiency, unspecified etiology from Last 3 Months Results * ECG 12 lead (08/25/2024 12:48 PM EDT) Only the most recent of2 resultswithin the time period is included. [facility] ECG ORDERABLES Final Result * (ABNORMAL) Glucose, Nova Meter (07/09/2024 11:20 AM EDT) Only the most recent of4 resultswithin the time period is included. POC-GLUCOSE 150(H) 70 - 110 mg/dL 07/09/2024 11:23 AM EDT [facility] Comment: In the event of poor peripheral blood flow, venous or arterial blood should be used due to the potential of erroneous results. Notified Nurse RBV Inhalation Therapist [id number] 07/09/2024 11:23 AM EDT [facility] Blood WHOLE BLOOD / Unknown 07/09/2024 11:20 AM EDT 07/09/2024 11:23 AM EDT Narrative [facility] - 07/09/2024 11:23 AM EDT Inhalation Therapist ID is - [id number] us Christa Gonzalez MD POINT OF CARE TEST ORDERABLES F inal Result [facility] [address] [place] [address], [facility] [phone] * ECHO COMPLETE (DOPPLER / COLOR) WO CONTRAST (07/09/2024 10:37 AM EDT) Anatomical Region Laterality Modality Heart Vascular Ultraso und 07/09/2024 10:0 5 AM EDT Narrative 07/11/2024 2:26 PM EDT TRANSTHORACIC ECHOCARDIOGRAPHY REPORT Demographics Patient Name: BRYAN AUGUST : 1950 [place] Age: 74 year(s) Corporate ID Number: [id number] Gender Female [employer]: Noe LYONS Height: 60 inches Referring Physician: [...] 2.01 m/s E/A ratio: 0.66 m/s Volume hosnbndtw55.49 LV length: 7.13 cm ml Volume icjhwwnu08.36 ml LVOT diameter: 1.99 cm Normal sized [...] Valve TR velocity: 3.04 m/s TR gradient: 36.21739 mmHg Estimated RAP: 3 mmHg RVSP: 39.91 [...] HUMBLE Age: 74 year(s) Corporate ID Number: [id number] Gender Female [employer]er: Noe LYONS Height: 60 inches Referring Physician: [...] 2.01 m/s E/A ratio: 0.66 m/s Volume wxiprftob81.49 LV length: 7.13 cm ml Volume bmduluhe23.36 ml LVOT diameter: 1.99 cm Normal sized [...] Valve TR velocity: 3.04 m/s TR gradient: 36.42069 mmHg Estimated RAP: 3 mmHg RVSP: 39.91 [...] collapse. Pericardium / Pleura No pericardial effusion. us Christa Gonzalez MD CV ECHO ORDERABLES Final Result * (ABNORMAL) CBC (Hemogram only) (07/09/2024 5:25 AM EDT) WBC 8.7 4.0 - 10.0 K/ L 07/09/2024 6:02 AM EDT [facility] RBC 3.44(L) 3.93 - 5.22 M/ L 07/09/2024 6:02 AM EDT [facility] Hemoglobin 10.8(L) 11.2 - 15.7 GM/DL 07/09/2024 6:02 AM EDT [facility] Hematocrit 34.9 34.1 - 44.9 % 07/09/2024 6:02 AM EDT [facility] MCV 102(H) 79 - 95 fL 07/09/2024 6:02 AM EDT [facility] MCH 31.4 25.6 - 32.2 pg 07/09/2024 6:02 AM EDT [facility] MCHC 30.9(L) 32.2 - 35.5 GM/DL 07/09/2024 6:02 AM EDT [facility] RDW 13.4 11.7 - 14.4 % 07/09/2024 6:02 AM EDT [facility] Platelets 236 140 - 375 K/CU MM 07/09/2024 6:02 AM EDT [facility] MPV 9.4 9.4 - 12.3 fL 07/09/2024 6:02 AM EDT [facility] Blood Venipuncture / Unknown 07/09/2024 5:25 AM EDT 07/09/2024 5:35 AM EDT us Christa Gonzalez MD LAB BLOOD ORDERABLES Final Resu lt [facility] [address] [phone] * (ABNORMAL) Basic Metabolic Panel (07/09/2024 5:24 AM EDT) Sodium 137 136 - 145 meq/L 07/09/2024 6:08 AM EDT [facility] Potassium 4.7 3.4 - 5.1 meq/L 07/09/2024 6:08 AM EDT [facility] CO2 21(L) 22 - 29 meq/L 07/09/2024 6:08 AM EDT [facility] Chloride 107 98 - 112 meq/L 07/09/2024 6:08 AM EDT [facility] Glucose 111 82 - 115 mg/dL 07/09/2024 6:08 AM EDT [facility] BUN 32.7(H) 9.8 - 20.1 mg/dL 07/09/2024 6:08 AM EDT [facility] Creatinine 1.12(H) 0.57 - 1.11 mg/dL 07/09/2024 6:08 AM EDT [facility] BUN/Creatinine 29(H) 8 - 20 07/09/2024 6:08 AM EDT [facility] Calcium 8.5 8.4 - 10.2 mg/dL 07/09/2024 6:08 AM EDT [facility] Anion Gap 14(H) 4 - 12 07/09/2024 6:08 AM EDT [facility] eGFR (mL/min/1.73m2) 52(L) >=60 mL/min/1.7 3m2 07/09/2024 6:08 AM EDT [facility] Osmolality Calc 281.7 mOsm/kg 6:08 AM EDT [facility] Blood Venipuncture / Unknown 07/09/2024 5:24 AM EDT 07/09/2024 5:30 AM EDT us Christa Gonzalez MD LAB BLOOD ORDERABLES Final Resu lt Performing Organization Address City/State/[facility] Co de Phone Number [facility] [address] [place] [address] * TOBY (07/08/2024 10:08 AM EDT) Anatomical Region Laterality Modality Other Narrative 07/08/2024 10:08 AM EDT Miguelangel Laura MD 07/08/2024 10:18 AM TOBY Date: 07/08/2024 9:53 AM Sex: Female Location: OR Requesting Physician: Christa Gonzalez MD Examiner: Miguelangel Laura MD Indication: Mitral Clip Intubated Sedated Patient [...] finding discussed with Dr. Gonzalez us Miguelangel Laura MD ANESTHESIA ORDERABLES Colleen l Result * CARDIAC CATH - TRANSCATHETER MITRAL VALVE REPAIR (TMVR) (07/08/2024 9:54 AM EDT) Anatomical Region Laterality Modality Heart Other 07/08/2024 8:42 AM EDT Narrative 07/08/2024 1:26 PM EDT Cardiac Diagnostic Report Demographics Patient Name August Date of 1950 [place] Patient # [id number] Medical Record # Physician CHRISTA GONZALEZ MD Date of Study 07/08/2024 NIELS LAURA MD Referring Interventional Physician physician Procedure Procedure Type Diagnostic procedure: Miscellaneous: Percutaneous Mitral Valve Repair Conclusions Procedure Description DAVID - Rasta Procedure (The patient will be included in the STS/ACC TVT Registery with NCDR sponsored by the the [employer] (NCT# [id number]) -Successful transcatheter mitral gctf-ni-seum repair (DAVID) with the use of the Rasta system (VELMA device) -Transseptal puncture as part of the procedure Inhalation Therapist : Christa Gonzalez MD Procedure note: 1. [...] 07/08/2024 Cardiac Diagnostic Report Demographics Patient Name BYRAN AUGUST Date of Birth1950 [place] Patient # [id number] Medical Record # Physician CHRISTA GONZALEZ MD Date of Study07/08/2024 NIELS LAURA MD Referring Interventional Physician physician Procedure Procedure Type Diagnostic procedure: Miscellaneous: Percutaneous Mitral Valve Repair Conclusions Procedure Description DAVID - Rasta Procedure (The patient will be included in the STS/ACC TVT Registery with NCDR sponsored by the the [employer] (NCT# [id number]) -Successful transcatheter mitral mdqe-rr-tqbb repair (DAVID) with the useof the Rasta system (VELMA device) -Transseptal puncture as part of the procedure Inhalation Therapist : Christa Gonzalez MD Procedure note: 1. [...] Condition: Baseline Heart Rate: 63 bpm Signatures us Christa Gonzalez MD CV CARDIAC CATH ORDERABLES Colleen lowry Result * (ABNORMAL) POC ACTIVATED CLOTTING TIME (07/08/2024 9:14 AM EDT) [facility] Activated Clotting Time 383(H) 74 - 137 sec 07/08/2024 12:06 PM EDT [facility] Inhalation Therapist [id number] 07/08/2024 12:06 PM EDT [facility] Blood 07/08/2024 9:14 AM EDT 07/08/2024 12:06 PM EDT Narrative [facility] - 07/08/2024 12:06 PM EDT Inhalation Therapist ID is - [id number] us Christa Gonzalez MD POINT OF CARE TEST ORDERABLES F inal Result [facility] [address] [phone] * AN SINGLE LUMEN INTUBATION (07/08/2024 8:16 AM EDT) Whit French CRNA - 07/08/2024 8:16 AM EDT Whit Cisse CRNA 07/08/2024 8:24 AM Intubation Authorized by: Miguelangel Laura MD Performed by: Whit Cisse CRNA Date/Time: [...] approaches attempted: 0 Additional Comments Atraumatic intubation us Miguelangel Laura MD ANESTHESIA ORDERABLES Colleen l Result * (ABNORMAL) Urinalysis w/Microscopic (07/08/2024 6:24 AM EDT) Color, UA Light Yellow 07/08/2024 6:33 AM EDT [facility] Clarity, UA Turbid(A) Clear 07/08/2024 6:33 AM EDT [facility] Specific [place], UA 1.020 1.005 - 1.030 07/08/2024 6:33 AM EDT [facility] pH, UA 6.5 6.0 - 8.0 07/08/2024 6:33 AM EDT [facility] Leukocytes, UA 250 Leanne/uL(A) Negative 07/08/2024 6:33 AM EDT [facility] Nitrite, UA Negative Negative 07/08/2024 6:33 AM EDT [facility] Protein, UA Negative Negative 07/08/2024 6:33 AM EDT [facility] Glucose, UA 4+(A) Normal 07/08/2024 6:33 AM EDT [facility] Ketones, UA Negative Negative 07/08/2024 6:33 AM EDT [facility] Urobilinogen, UA Normal Normal 07/08/2024 6:33 AM EDT [facility] Bilirubin, UA Negative Negative 07/08/2024 6:33 AM EDT [facility] Blood, UA Negative Negative 07/08/2024 6:33 AM EDT [facility] RBC, UA 0-2(A) None Seen /HPF 07/08/2024 6:33 AM EDT [facility] WBC, UA 21-50(A) None Seen /HPF 07/08/2024 6:33 AM EDT [facility] Bacteria, UA 2+(A) None Seen, Trace 07/08/2024 6:33 AM EDT [facility] SQUAMOUS EPITHELIAL 0-2(A) None Seen /HPF 07/08/2024 6:33 AM EDT [facility] Specimen Source Urine, Clean Catch 07/08/2024 6:33 AM EDT [facility] Urine URINE SPECIMEN COLLECTION, CLEAN CATCH / Unknown 07/08/2024 6:24 AM EDT 07/08/2024 6:24 AM EDT Christa Gonzalez MD URINE ORDERABLES Final Result [facility] [address] [place] [address], [facility] [phone] * Antibody Identification (07/08/2024 6:13 AM EDT) Antibody Identification Anti-E 07/08/2024 9:45 AM EDT [facility] [place] Blood Venipuncture / Unknown 07/08/2024 6:13 AM EDT 07/08/2024 6:16 AM EDT Christa Gonzalez MD [facility] BLOOD BANK TEST ORDERABLES Final Result Performing Organization Address [facility] Co de Phone Number [facility] ([place] [address] [facility] [place] [address], [facility] [phone] * (ABNORMAL) Type and Screen (07/08/2024 6:13 AM EDT) ABO/Rh O Positive 07/08/2024 5:58 AM EDT [facility] BLOOD [facility] [place] Antibody Screen Positive(A) 07/08/2024 5:58 AM EDT [facility] [place] HISTCHK HIST CHECK PERFORMED 07/08/2024 5:58 AM EDT [facility] [place] Blood Venipuncture / Unknown 07/08/2024 6:13 AM EDT 07/08/2024 6:16 AM EDT Christa Gonzalez MD [facility] BLOOD BANK TEST ORDERABLES Edited Result - Final Performing Organization Address [facility]/ZIP Co de Phone Number [facility] ([place] [address] [facility] [place] [address], [facility] [phone] * EKG-SCANNED (07/08/2024) Narrative 07/08/2024 Ordered by an unspecified provider. us Default Scanning Provider SCAN ORDERS Final Result * (ABNORMAL) CBC with automated diff (07/07/2024 11:13 AM EDT) WBC 7.5 4.0 - 10.0 K/ L 07/07/2024 12:32 PM EDT [facility] RBC 4.25 3.93 - 5.22 M/ L 07/07/2024 12:32 PM EDT [facility] Hemoglobin 13.3 11.2 - 15.7 GM/DL 07/07/2024 12:32 PM EDT [facility] Hematocrit 41.6 34.1 - 44.9 % 07/07/2024 12:32 PM EDT [facility] MCV 98(H) 79 - 95 fL 07/07/2024 12:32 PM EDT [facility] MCH 31.3 25.6 - 32.2 pg 07/07/2024 12:32 PM EDT [facility] MCHC 32.0(L) 32.2 - 35.5 GM/DL 07/07/2024 12:32 PM EDT [facility] RDW 13.5 11.7 - 14.4 % 07/07/2024 12:32 PM EDT [facility] Platelets 331 140 - 375 K/CU MM 07/07/2024 12:32 PM EDT [facility] MPV 9.4 9.4 - 12.3 fL 07/07/2024 12:32 PM EDT [facility] % Neutros 69 34 - 71 % 07/07/2024 12:32 PM EDT [facility] % Lymphs 18(L) 19 - 52 % 07/07/2024 12:32 PM EDT [facility] % Monos 7 5 - 13 % 07/07/2024 12:32 PM EDT [facility] % Eos 4 1 - 6 % 07/07/2024 12:32 PM EDT [facility] % Baso 0 0 - 1 % 07/07/2024 12:32 PM EDT [facility] NRBC Absolute <0.01 0 - 0.012 K/ul 07/07/2024 12:32 PM EDT [facility] # Neutros 5.21 1.56 - 6.13 K/ L 07/07/2024 12:32 PM EDT [facility] # Lymphs 1.37 1.18 - 3.74 K/ L 07/07/2024 12:32 PM EDT [facility] # Monos 0.56 0.24 - 0.86 K/ L 07/07/2024 12:32 PM EDT [facility] # Eos 0.27 0.04 - 0.36 K/ L 07/07/2024 12:32 PM EDT [facility] # Baso 0.03 0.01 - 0.08 K/ L 07/07/2024 12:32 PM EDT [facility] Immature Granulocytes-Re lative 1.10(H) 0.01 - 0.43 % 07/07/2024 12:32 PM EDT [facility] # IG 0.08(H) 0.00 - 0.03 K/uL 07/07/2024 12:32 PM EDT [facility] Blood Venipuncture / Unknown 07/07/2024 11:13 AM EDT 07/07/2024 12:25 PM EDT Narrative [facility] - 07/07/2024 12:32 PM [...] Flag noted Atypical Lymph flag noted us Christa Gonzalez MD LAB BLOOD ORDERABLES Final Resu lt [facility] [address] [phone] * (ABNORMAL) Comprehensive metabolic panel (07/07/2024 11:13 AM EDT) Sodium 140 136 - 145 meq/L 07/07/2024 12:47 PM EDT [facility] Potassium 4.9 3.4 - 5.1 meq/L 07/07/2024 12:47 PM EDT [facility] Chloride 105 98 - 112 meq/L 07/07/2024 12:47 PM [facility] CO2 25 22 - 29 meq/L 07/07/2024 12:47 PM [facility] Calcium 9.7 8.4 - 10.2 mg/dL 07/07/2024 12:47 PM [facility] Glucose 111 82 - 115 mg/dL 07/07/2024 12:47 PM [facility] BUN 33.3(H) 9.8 - 20.1 mg/dL 07/07/2024 12:47 PM [facility] Creatinine 1.08 0.57 - 1.11 mg/dL 07/07/2024 12:47 PM [facility] BUN/Creatinine 31(H) 8 - 20 07/07/2024 12:47 PM [facility] eGFR (mL/min/1.73m2) 54(L) >=60 mL/min/1. 73m2 07/07/2024 12:47 PM [facility] Albumin 3.6 3.5 - 5.0 g/dL 07/07/2024 12:47 PM [facility] Alkaline Phosphatase 102 40 - 150 U/L 07/07/2024 12:47 PM [facility] ALT 10 <=34 U/L 07/07/2024 12:47 PM [facility] Comment: ALT2 reagent used for testing does not contain P5P supplementation and therefore may miss ALT elevations in patients with B6 deficiency. This population may be as high as 10% in the [place], with risk factors including malabsorption, drug interactions, and alcoholic hepatitis. AST 21 11 - 34 U/L 07/07/2024 12:47 PM [facility] Comment: AST2 reagent used for testing does not contain P5P supplementation and therefore may miss AST elevations in patients with B6 deficiency. This population may be as high as 10% in the [place], with risk factors including malabsorption, drug interactions, and alcoholic hepatitis. Total Bilirubin 0.3 0.2 - 1.2 mg/dL 07/07/2024 12:47 PM [facility] Protein, Total 7.5 6.4 - 8.3 g/dL 07/07/2024 12:47 PM EDT [facility] Globulin 3.9 2.5 - 4.1 g/dL 07/07/2024 12:47 PM EDT [facility] Anion Gap 15(H) 4 - 12 07/07/2024 12:47 PM EDT [facility] A/G Ratio 0.9 0.7 - 1.9 07/07/2024 12:47 PM EDT [facility] Osmolality Calc 287.5 mOsm/kg 12:47 PM EDT [facility] Blood Venipuncture / Unknown 07/07/2024 11:13 AM EDT 07/07/2024 12:25 PM EDT us Christa Gonzalez MD LAB BLOOD ORDERABLES Final Resu lt [facility] [address] [phone] from Last 3 Months Insurance [facility] MCR ADV DUAL COMPLETE MEDICAID [place] Advance Directives For more information, please contact: [phone] * Full Code (Latest Code Status on File) Date Activated Date Inactivated Comments 07/08/2024 10:19 AM 07/09/2024 5:44 PM * Full Code Date Activated Date Inactivated Comments 05/05/2024 12:13 PM 05/06/2024 4:27 AM * Full Code Date Activated Date Inactivated Comments 12/18/2023 1:51 PM 12/24/2023 4:20 PM Care Teams Cloth Bleaching Supervisor Relationship Specialty Start Date End Date Zia Moore MD [address] [facility] [address] [facility] [place] [address] PCP - General Family Medicine 11/20/23 Jonathan Gallardo MD [address] [place] [address] Rewriter Cardiology 11/20/23 Elvi Villavicencio MD [address] [facility] [address] [place] [address] Health Outcomes Liaison Nephrology 11/26/23 Carissa Drake MD [address] [place] [address] Neurologist Neurosurgery 11/26/23 Devon Olea MD [address] [facility] [address], [place] [address] Lumber Racker Pulmonary Disease 11/26/23 [place] [address] [place] [address] Consulting Physician Sleep Medicine 11/26/23 Carlo Chavez MD [address] [facility] [address] [place] [address] Surgeon Cardiothoracic Surgery 12/15/23
--- OUTSIDE RECORDS SUMMARY | 2024-08-31 12:47 | XMS_ITS | Patient Health Record ---
Author Organization [facility] [place] Address [address] [facility] [address] [facility] [address] [place] [id number] Care Team Providers Care [employer] Practitioner Name Role Phone Oscar Mi Tray Unavailable [phone] Tomasz Haney Unavailable [phone] AlmanzarNubia scott Unavailable [phone] Allergies Allergen (clinical drug ingredient) Drug/Non Drug Allergy documented on EMR Reaction Allergy Type Onset Date Status ciprofloxacin Cipro hives Drug Allergy Act angel Results Component Value Reference Range Notes CBC Venipuncture (in house) Reviewed date:11/10/2023 10:55:29 AM Interpretation: Performing Lab: Notes/Report: wbc 7.4 3.5 - 10 lymph 15.7 15 - 50 mid 5.1 2 - 15 gran 79.2 35 - 80 rbc 3.50 3.5 - 5.5 hgb 11.0 11.5 - 16.5 hct 32.9 35 - 55 mcv 94.1 75 - 100 mch 31.5 25 - 35 mchc 33.4 31 - 38 platlet 327 100 - 400 P-Comprehensive Metabolic Pa carlos (CMP) Reviewed date:11/12/2023 08:41:39 AM Interpretation:gluc 111, bun 31, Cr 1.28, gfr 44 Performing Lab: Notes/Report: CLIA: [id number] Papo Seals MD, Companion Caregiver [facility] , [address], [place] [address] Test performed by [employer], [facility] Sodium 141 135-145 mmol/L Potassium 5.0 3.5-5.3 mmol/L Chloride 104 97-108 mmol/L CO2 26 22-32 mmol/L Glucose 111 65-99 mg/dL BUN 31 8-23 mg/dL Creatinine 1.28 0.50-1.00 mg/dL Calcium 9.3 8.6-10.4 mg/dL eGFR by Creatinine 44 >59 mL/min/1.73m2 Protein 6.2 6.0-8.3 g/dL Albumin 3.7 3.5-5.3 g/dL Alkaline Phosphatase 74 35-121 IU/L ALT (SGPT) 9 <5-47 IU/L AST (SGOT) 12 <5-40 IU/L Bilirubin, Total 0.3 <0.2-1.2 mg/dL A/G Ratio 1.5 1.1-2.5 P-TSH Reviewed date:11/12/2023 08:41:39 AM Interpretation:Normal Performing Lab: Notes/Report: Test performed by [facility] [address] , [place] [address] Papo Seals MD, Companion Caregiver CLIA: [id number] TSH 2.03 0.43-5.25 mU/L Glycohemoglobin A1c (in hous e) Reviewed date:01/15/2024 08:57:57 AM Interpretation: Performing Lab: Notes/Report: glycohemoglobin 6.9% 5 - 6.5 % CBC Fingerstick (in house) Reviewed date:09/04/2023 09:06:02 AM Interpretation: Performing Lab: Notes/Report: wbc 7.6 3.5 - 10 lym 19.1 15 - 50 mid 5.7 2 - 15 gran 75.2 35 - 80 rbc 3.32 3.5 - 5.5 hgb 9.8 11.5 - 16.5 hct 30.6 35 - 55 mcv 92.2 75 - 100 mch 29.7 25 - 35 mchc 32.2 31 - 38 plat 320 100 - 400 Glycohemoglobin A1c (in hous e) Reviewed date:09/04/2023 11:17:15 AM Interpretation:6.4% Performing Lab: Notes/Report: 6.4% glycohemoglobin 6.4% 5 - 6.5 % P-Comprehensive Metabolic Pa carlos (CMP) Reviewed date:09/04/2023 11:17:15 AM Interpretation:gluc 207, bun 35, Cr 1.35, gfr 41 Performing Lab: Notes/Report: CLIA: [id number] Papo Seals MD, Companion Caregiver [address] [place] [address] , [place] [address] Test performed by [employer] Sodium 139 135-145 mEq/L Potassium 5.1 3.5-5.3 mEq/L Chloride 103 97-108 mEq/L CO2 24 22-32 mEq/L Glucose 207 65-99 mg/dL BUN 35 8-23 mg/dL Creatinine 1.35 0.50-1.00 mg/dL Calcium 9.5 8.6-10.4 mg/dL eGFR by Creatinine 41 >59 mL/min/1.73m2 Protein 6.2 6.0-8.3 g/dL Albumin 3.5 3.5-5.3 g/dL Alkaline Phosphatase 110 35-121 IU/L ALT (SGPT) 33 <5-47 IU/L AST (SGOT) 28 <5-40 IU/L Bilirubin, Total 0.3 <0.2-1.2 mg/dL A/G Ratio 1.3 1.1-2.5 mg/dL H-TSH Reviewed date:03/30/2024 09:18:50 AM Interpretation: Performing Lab: Notes/Report: TSH 0.15 0.465-4.68 uIU/mL H-Glycohemoglobin A1C Reviewed date:03/30/2024 09:18:50 AM Interpretation: Performing Lab: Notes/Report: HGBA1C 6.3 4.0-6.0 % < 6% Non-Diabetic Level < 7% Controlled Diabetic Level > 8% Poorly Controlled Diabetic Level CBC Venipuncture (in house) Reviewed date:04/12/2024 09:45:00 AM Interpretation: Performing Lab: Notes/Report: wbc 7.1 3.5 - 10 lymph 20.7% 15 - 50 mid 5.6% 2 - 15 gran 73.7% 35 - 80 rbc 3.98 3.5 - 5.5 hgb 12.2 11.5 - 16.5 hct 37.6 35 - 55 mcv 94.4 75 - 100 mch 30.8 25 - 35 mchc 32.6 31 - 38 platlet 403 100 - 400 P-Comprehensive Metabolic Pa carlos ([facility]) Reviewed date:04/12/2024 09:45:00 AM Interpretation:gluc 103, bun 38, Cr 1.42, gfr 39 Performing Lab: Notes/Report: CLIA: [id number] Papo Seals MD, Companion Caregiver [address] [facility] , [address], [place] [address] Test performed by [employer], [facility] Sodium 140 135-145 mmol/L Potassium 4.9 3.5-5.3 mmol/L Chloride 106 97-108 mmol/L CO2 24 22-32 mmol/L Glucose 103 65-99 mg/dL BUN 38 8-23 mg/dL Creatinine 1.42 0.50-1.00 mg/dL Calcium 9.8 8.6-10.4 mg/dL eGFR by Creatinine 39 >59 mL/min/1.73m2 Protein 7.1 6.0-8.3 g/dL Albumin 4.2 3.5-5.3 g/dL Alkaline Phosphatase 105 35-121 IU/L ALT (SGPT) 13 <5-47 IU/L AST (SGOT) 17 <5-40 IU/L Bilirubin, Total <0.2 <0.2-1.2 mg/dL A/G Ratio 1.4 1.1-2.5 H-Sputum Culture with Gram Parish hercules Reviewed date:04/01/2024 08:44:07 AM Interpretation: Performing Lab: Notes/Report: Comment: Induce w/3ml NS neb tx if necessary GS Gram Stain: GS 10 - 25 White Blood Cells / LPF GS <10 Epithelial Cells / LPF GS Few Gram Positive Cocci GS Rare Gram Negative Rods CUSPU ORGANISM 1: Achromobacter species RX PEPE: R- Resistant S- Susceptible I- Intermediate * Not on [facility] CUSU Quantify Moderate RX PEPE: R- Resistant S- Susceptible I- Intermediate * Not on [facility] CUSU RX PEPE: R- Resistant S- Susceptible I- Intermediate * Not on [facility] CUSPU RX PEPE: R- Resistant S- Susceptible I- Intermediate * Not on [facility] Achromobacter specie s: REACTION RX PEPE: R- Resistant S- Susceptible I- Intermediate * Not on [facility] Amikacin 16 R RX PEPE: R- Resistant S- Susceptible I- Intermediate * Not on [facility] Aztreonam >16 R RX PEPE: R- Resistant S- Susceptible I- Intermediate * Not on [facility] Cefepime 8 S RX PEPE: R- Resistant S- Susceptible I- Intermediate * Not on [facility] Ceftazidime 8 S RX PEPE: R- Resistant S- Susceptible I- Intermediate * Not on [facility] Ceftriaxone 32 R RX PEPE: R- Resistant S- Susceptible I- Intermediate * Not on [facility] Ciprofloxacin 2 I RX PEPE: R- Resistant S- Susceptible I- Intermediate * Not on [facility] Gentamicin 4 R RX PEPE: R- Resistant S- Susceptible I- Intermediate * Not on [facility] Levofloxacin <=0.5 S RX PEPE: R- Resistant S- Susceptible I- Intermediate * Not on [facility] Tobramycin 4 R RX PEPE: R- Resistant S- Susceptible I- Intermediate * Not on [facility] Piperacillin/Tazobac redding <=2/4 S RX PEPE: R- Resistant S- Susceptible I- Intermediate * Not on [facility] CUSPU RX PEPE: R- Resistant S- Susceptible I- Intermediate * Not on [facility] Reason For Referral Reason patient requests hel p with ADL's; just had mitral valve replacement at [facility] Diagnosis 1 Debility (R53.81) Referral Organization [facility] Referring Provider First Name Nubia Referring Provider Last Name Jenelle Referring Provider Speciality [facility] Referred Provider Specialty Home Health Agency General Notes Lainey Carey 2024 02:20:38 PM > faxed to [facility] Referral Priority Routine Medications Medication SIG (Take, Route, Frequency, Duration) Notes Start Date End Date Status Cefadroxil 500 MG 1 capsule Orally every 12 hrs for 5 day(s) 08/23/2024 Active Walker with Wheels as directed Hx of Falling Z91.81 05/23/2024 Active Primidone 50 MG TAKE 2 TABLETS BY MOUTH ONCE DAILY AT BEDTIME Orally At Bed Time for 30 days Active Gabapentin 100 MG 1 cap(s) orally 2 times a day for 30 days 08/03/2024 Active Levothyroxine Sodium 75 MCG 1 tablet in the morning on an empty stomach Orally Once a day Active FeroSul 325 (65 Fe) MG TAKE 1 TAB(S) ORALLY 2 TIMES A DAY 90 DAYS Active Bisoprolol Fumarate 5 MG 2 tablet Orally Once a day for 90 days Active Furosemide 20 MG 1 tablet Orally on Thursday and Thursday Active Magnesium 400 MG as directed Orally Active Farxiga 10 MG 1 tablet Orally Once a day 04/21/2024 Active Natural Senna Laxative 8.6 MG 1 tablets at bedtime as needed Orally Once a day 10/29/2022 Not-Taking Dulera 200-5 MCG/ACT 2 PUFF INHALED TWICE A DAY Active Spiriva Respimat 1.25 MCG/ACT 2 PUFFS ONCE DAILY Inhalation Once a day Active Clopidogrel Bisulfate 75 MG 1 tablet Orally Once a day for 30 days Active Immunizations Vaccine Route Administration Date Status Comme nts COVID 19 Nikolai Unknown 06/20/2020 Administered COVID 19 Moderna Unknown 03/11/2021 Administered Fluzone High Dose (65yr and older) IM Intramuscular 11/20/2021 Administered Fluzone High Dose (65yr and older) IM Intramuscular 12/11/2022 Administered PNEUMOVAX 23 VACCINE IM Intramuscular 01/15/2022 Administe red Prevnar (PCV13) Unknown 01/12/2014 Administered Tetanus Tdap-Adacel (over 7yrs) Unknown 02/06/2023 Administered xFlu shot- 6months-36 months of xoz-UBEP-VULA-trivalent Unknown 01/08/2016 Administered xFluzone (6mos and older)-trivalent Unknown 01/07/2007 Administered xFluzone High Dose-private (65yr&older) Unknown 12/28/2017 Administered Problems Problem Type SNOMED Code ICD Code Onset Dates Problem Status W/U Status Risk Notes Problem 96532868 Essential (prima ry) hypertension (I10) Active confirmed Problem 52202310 Type 2 diabetes mellitus with other circulatory complications (E11.59) Active confirmed Problem 050027740 Hypothyroidism (acquired) (E03.9) Active confirmed Problem Anemia (923424726) Anemia (D64.9) Active confir med Problem 76250903 Tremor (R25.1) Active confirmed Problem 446278807 termite helper curren t use of anticoagulant (Z79.01) Active confirmed Problem Environmental allergy (819668804) Environmental allergies (Z91.048) Active confirmed Problem Asthma (041904406) Asthma (J45.909) Active conf irmed Problem BMI 30+ - obesity (060788759) BMI 32.0-32.9,adult (Z68.32) Active confirmed Problem Hypomagnesemia (029725949) Hypomagnesemia (E83.42) Active confirmed Problem 636150737 Chronic respirat ory failure with hypoxia (J96.11) Active confirmed Problem 05479751 Constipation, unspecified constipation type (K59.00) Active confirmed Problem 367910033 Cervical disc disease (M50.90) Active confirmed Problem 71298471 Chronic obstruct angel pulmonary disease, unspecified COPD type (J44.9) Active confirmed Problem 400148637 Iron deficiency anemia due to chronic blood loss (D50.0) Active confirmed Problem 252579554 Leukocytosis, unspecified type (D72.829) Active confirmed Problem 025064350 PAF (paroxysmal atrial fibrillation) (I48.0) Active confirmed Problem 50895798 Sleep apnea, unspecified type (G47.30) Active confirmed Problem 50395909 Hyperlipidemia, unspecified hyperlipidemia type (E78.5) Active confirmed Problem 557151876 Pneumonia of rig ht middle lobe due to infectious organism (J18.9) Active confirmed Problem 699445277556795 Atrial fibrillat ion with RVR (I48.91) Active confirmed Problem 42851715 Mitral valve insufficiency, unspecified etiology (I34.0) Active confirmed Problem 575303467 Chronic pain disorder (G89.4) Active confirmed Problem 051863122 Atherosclerosis of elem coronary artery without angina pectoris, unspecified whether elem or transplanted heart (I25.10) Active confirmed Problem Heart valve disease (965739) Valvular disease (I38) Active confirmed Problem 348725883 Asthma, unspecif ied asthma severity, unspecified whether complicated, unspecified whether persistent (J45.909) Active confirmed Problem 833514541 Type 2 diabetes mellitus without complication, unspecified whether penitentiary insulin use (E11.9) Active confirmed Problem 00880779 Congestive heart failure, unspecified HF chronicity, unspecified heart failure type (I50.9) Active confirmed Problem 225436572970238 Type 2 diabetes mellitus with diabetic neuropathy, unspecified whether penitentiary insulin use (E11.40) Active confirmed Problem 336388694 Status post angioplasty with stent (Z95.820) Active confirmed Problem 637889156 Chronic kidney disease, stage 3a (N18.31) Active confirmed Problem 2967594 Gastrointestinal hemorrhage associated with acute gastritis (K29.01) Active confirmed Problem 093831281 Laceration of ri [facility] lower extremity excluding thigh, subsequent encounter (B79.047X) Active confirmed Problem 148132150 Acute anemia (D64.9) Active confirmed Problem 923775846 Cervical dystoni a (G24.3) Active confirmed Problem 034891184 Chronic renal failure, stage 3b (N18.32) Active confirmed Vital Signs Heart Rate 62 /min 07/18/2024 Blood pressure diastolic 64 mm Hg 07/18/2024 Height 61 in 07/18/2024 Blood pressure systolic 118 mm Hg 07/18/2024 Weight 000 lbs 07/18/2024 BMI 30.12 kg/m2 05/16/2024 Encounters Encounter Location Date Provider Diagnosis [address] [id number] 09/03/2023 Mi Moore Chronic obstructive pulmonary disease, unspecified COPD type J44.9 ; Essential (primary) hypertension I10 ; Atherosclerosis of elem coronary artery without angina pectoris, unspecified whether elem or transplanted heart I25.10 ; Status post angioplasty with stent Z95.820 ; Iron deficiency anemia due to chronic blood loss D50.0 ; Tremor R25.1 ; Type 2 diabetes mellitus without complication, unspecified whether penitentiary insulin use E11.9 ; PAF (paroxysmal atrial fibrillation) I48.0 and senior living current use of anticoagulant Z79.[address] [id number] 10/01/2023 Mi Moore Essential (primary) hypertension I10 ; Atherosclerosis of elem coronary artery without angina pectoris, unspecified whether elem or transplanted heart I25.10 ; Type 2 diabetes mellitus with other circulatory complications E11.59 ; Hypothyroidism (acquired) E03.9 ; Tremor R25.1 ; termite helper current use of anticoagulant Z79.01 ; Cervical dystonia G24.3 and Chronic obstructive pulmonary disease, unspecified COPD type J44.[address] [id number] 11/09/2023 Mi Moore Cervical spinal sten osis M48.02 ; Cervical disc disease M50.90 ; Type 2 diabetes mellitus with other circulatory complications E11.59 ; Status post angioplasty with stent Z95.820 ; Tremor R25.1 ; senior living current use of anticoagulant Z79.01 and [facility]othy[facility] (acquired) E03.9 [facility] [address] [place] [id number] 01/14/2024 Mi Moore H/O cervical spine surgery Z98.890 ; Essential (primary) hypertension I10 ; Atherosclerosis of elem coronary artery without angina pectoris, unspecified whether elem or transplanted heart I25.10 ; Status post angioplasty with stent Z95.820 ; Tremor R25.1 ; Type 2 diabetes mellitus without complication, unspecified whether penitentiary insulin use E11.9 and Chronic respiratory failure with hypoxia J96.11 [facility] [address] [place] [id number] 02/26/2024 Mi Moore Sebaceous cyst L72.3 ; Chronic obstructive pulmonary disease, unspecified COPD type J44.9 and Tremor R25.1 [facility] [address] [place] [id number] 04/11/2024 Mi Moore Pneumonia of right middle lobe due to infectious organism J18.9 ; Essential (primary) hypertension I10 and Chronic renal failure, stage 3b N18.32 [facility] [address] [place] [id number] 05/16/2024 Mi Moore Tremor R25.1 and Cervical dystonia G24.3 [facility] [address] [place] [id number] 06/13/2024 Mi Moore Mitral valve insufficiency, unspecified etiology I34.0 and Type 2 diabetes mellitus with diabetic neuropathy, unspecified whether terminal system operator insulin use E11.40 [facility] [address] [place], [place] [id number] 07/18/2024 Nubia Almanzar Type 2 diabetes ara itus with other circulatory complications E11.59 ; Chronic [...] type E78.5 and Chronic pain disorder G89.4 [facility] [address] [facility] [address] [place], [place] [id number] 09/14/2023 Nubia Jenelle Chronic obstructive pulmonary disease, unspecified COPD type J44.9 ; Atherosclerosis of elem coronary artery without angina pectoris, unspecified whether elem or transplanted heart I25.10 ; Iron deficiency anemia due to chronic blood loss D50.0 ; Tremor R25.1 ; Type 2 diabetes mellitus without complication, unspecified whether penitentiary insulin use E11.9 ; Hypothyroidism (acquired) E03.9 and Chronic pain disorder G89.4 [facility] [address] [facility] [address] [place], [place] [id number] 09/04/2023 Mi Moore [facility] [address] [facility] [address] [place] [id number] 09/08/2023 Mi Moore Pneumonia due to infectious organism, unspecified laterality, unspecified part of lung J18.9 [facility] [address] [facility] [address] [place], [place] [id number] 09/08/2023 Mi Moore Type 2 diabetes ara itus with diabetic neuropathy, unspecified whether terminal system operator insulin use E11.40 [facility] [address] [facility] [address] [place] [id number] 09/15/2023 Nubia Almanzar [facility] [address] [facility] [address] [place] [id number] 11/12/2023 Mi Moore [facility] [address] [facility] [address] [place] [id number] 12/01/2023 Mi Moore [facility] [address] [facility] [address] [place] [id number] 01/13/2024 Mi Moore [facility] [address] [facility] [address] [place] [id number] 02/15/2024 Mi Moore Chronic pain disorde r G89.4 [facility] [address] [place], [place] [id number] 03/21/2024 Mi Moore [facility] [address] [place] [id number] 04/01/2024 Mi Moore [facility] [address] [place] [id number] 04/12/2024 Mi Moore [facility] [address] [place] [id number] 04/28/2024 Mi Moore Tremor R25.1 [facility] [address] [place] [id number] 05/23/2024 Mi Moore [facility] [address] [place] [id number] 05/26/2024 Mi Moore Chronic pain disorde r G89.4 [facility] [address] [place], [place] [id number] 07/11/2024 Mi Moore [facility] [address] [place], [place] [id number] 07/18/2024 Nubiabolivar Almanzar [facility] [address] [place] [id number] 08/03/2024 Tomasz Worth Cervical disc diseas e M50.90 and Tremor R25.1 [facility] [address] [place], [place] [id number] 08/18/2024 Mi Moore Assessments Encounter Date Diagnosis (ICD Code) Assessment Notes Treatment Notes Treatment Clinical Notes Section Notes 09/03/2023 Essential (primary) hypertension (ICD-10 - I10) 09/03/2023 Chronic obstructive pulmonary disease, unspecified COPD type (ICD-10 - J44.9) 09/08/2023 Pneumonia due to infectious organism, unspecified laterality, unspecified part of lung (ICD-10 - J18.9) 09/08/2023 Type 2 diabetes mellitus with diabetic neuropathy, unspecified whether terminal system operator insulin use (ICD-10 - E11.40) 09/14/2023 Chronic obstructive pulmonary disease, unspecified COPD type (ICD-10 - J44.9) 09/14/2023 Atherosclerosis of elem coronary artery without angina pectoris, unspecified whether elem or transplanted heart (ICD-10 - I25.10) 10/01/2023 Essential (primary) hypertension (ICD-10 - I10) 10/01/2023 Atherosclerosis of elem coronary artery without angina pectoris, unspecified whether elem or transplanted heart (ICD-10 - I25.10) 11/09/2023 Cervical disc disease (ICD-10 - M50.90) 11/09/2023 Cervical spinal stenosis (ICD-10 - M48.02) 01/14/2024 Essential (primary) hypertension (ICD-10 - I10) 02/26/2024 Sebaceous cyst (ICD-10 - L72.3) continue current therapy 02/26/2024 Chronic obstructive pulmonary disease, unspecified COPD type (ICD-10 - J44.9) 04/11/2024 Essential (primary) hypertension (ICD-10 - I10) 04/11/2024 Pneumonia of right middle lobe due to infectious organism (ICD-10 - J18.9) 04/28/2024 Tremor (ICD-10 - R25.1) 05/16/2024 Tremor (ICD-10 - R25.1) 05/16/2024 Cervical dystonia (ICD-10 - G24.3) Patient requires a power chair with a new head rest due to neck pain 05/26/2024 Chronic pain disorder (ICD-10 - G89.4) 06/13/2024 Mitral valve insufficiency, unspecified etiology (ICD-10 - I34.0) 06/13/2024 Type 2 diabetes mellitus with diabetic neuropathy, unspecified whether penitentiary insulin use (ICD-10 - E11.40) Continue present care. RTO in 2 months. Will be post valve replacement 01/14/2024 H/O cervical spine surgery (ICD-10 - Z98.890) SHE NEEDS A HEADREST ON HER MOBILE CHAIR DUE TO THE NECK PATHOLOGY AN SURGERY 02/15/2024 Chronic pain disorder (ICD-10 - G89.4) 07/18/2024 Type 2 diabetes mellitus with other circulatory complications (ICD-10 - E11.59) 07/18/2024 Chronic obstructive pulmonary disease, unspecified COPD type (ICD-10 - J44.9) 08/03/2024 Cervical disc disease (ICD-10 - M50.90) 08/03/2024 Tremor (ICD-10 - R25.1) 07/18/2024 Tremor (ICD-10 - R25.1) has FU with Neurosurgery 02/26/2024 Tremor (ICD-10 - R25.1) 04/11/2024 Chronic renal failure, stage 3b (ICD-10 - N18.32) 01/14/2024 Atherosclerosis of elem coronary artery without angina pectoris, unspecified whether elem or transplanted heart (ICD-10 - I25.10) 11/09/2023 Type 2 diabetes mellitus with other circulatory complications (ICD-10 - E11.59) 10/01/2023 Type 2 diabetes mellitus with other circulatory complications (ICD-10 - E11.59) 09/14/2023 Iron deficiency anemia due to chronic blood loss (ICD-10 - D50.0) 09/03/2023 Atherosclerosis of elem coronary artery without angina pectoris, unspecified whether elem or transplanted heart (ICD-10 - I25.10) 09/03/2023 Status post angioplasty with stent (ICD-10 - Z95.820) 09/14/2023 Tremor (ICD-10 - R25.1) 10/01/2023 Hypothyroidism (acquired) (ICD-10 - E03.9) 11/09/2023 Status post angioplasty with stent (ICD-10 - Z95.820) 07/18/2024 Debility (ICD-10 - R53.81) requests referral with [facility] or another agency for assistance with ADL, home care and food prep 01/14/2024 Status post angioplasty with stent (ICD-10 - Z95.820) 07/18/2024 Hypomagnesemia (ICD-10 - E83.42) 01/14/2024 Tremor (ICD-10 - R25.1) 11/09/2023 Tremor (ICD-10 - R25.1) 10/01/2023 Tremor (ICD-10 - R25.1) 09/14/2023 Type 2 diabetes mellitus without complication, unspecified whether penitentiary insulin use (ICD-10 - E11.9) 09/03/2023 Iron deficiency anemia due to chronic blood loss (ICD-10 - D50.0) 09/14/2023 Hypothyroidism (acquired) (ICD-10 - E03.9) 09/03/2023 Tremor (ICD-10 - R25.1) 10/01/2023 senior living current use of anticoagulant (ICD-10 - Z79.01) 11/09/2023 termite helper current use of anticoagulant (ICD-10 - Z79.01) 01/14/2024 Type 2 diabetes mellitus without complication, unspecified whether penitentiary insulin use (ICD-10 - E11.9) 07/18/2024 Chronic renal failure, stage 3b (ICD-10 - N18.32) 07/18/2024 PAF (paroxysmal atrial fibrillation) (ICD-10 - I48.0) taking ASA 81 mg qd 01/14/2024 Chronic respiratory failure with hypoxia (ICD-10 - J96.11) 11/09/2023 Hypothyroidism (acquired) (ICD-10 - E03.9) 10/01/2023 Cervical dystonia (ICD-10 - G24.3) She needs headrest for chair due to dystonia 09/14/2023 Chronic pain disorder (ICD-10 - G89.4) 09/03/2023 Type 2 diabetes mellitus without complication, unspecified whether penitentiary insulin use (ICD-10 - E11.9) 09/03/2023 PAF (paroxysmal atrial fibrillation) (ICD-10 - I48.0) 10/01/2023 Chronic obstructive pulmonary disease, unspecified COPD type (ICD-10 - J44.9) 07/18/2024 Hypothyroidism (acquired) (ICD-10 - E03.9) 07/18/2024 Status post angioplasty with stent (ICD-10 - Z95.820) 09/03/2023 termite helper current use of anticoagulant (ICD-10 - Z79.01) 07/18/2024 Cervical disc disease (ICD-10 - M50.90) [...] 07/18/2024 Chronic pain disorder (ICD-10 - G89.4) 04/11/2024 Other Discharge summary with available lab/diagnostic imaging results obtained and reviewed. Discharge medication list reconciled. Appropriate counseling provided. Moderate Complexity 07/18/2024 Other Discharge summary with available lab/diagnostic imaging results obtained and reviewed. Discharge medication list reconciled. Appropriate counseling provided. Moderate Complexity Plan Of Treatment Pending Test Test Name Order Date colonoscopy 01/15/2022 Next Appt Details Provider Name:Mi Crawford er, 09/05/2024 03:15:00 PM, [address], [address], [place], [place], [id number], Insurance Providers Payer Name Payer Address Payer Phone Subscriber Number Group Number Insured Name Patient Relationship to Insured Coverage Start Date Coverage End Date [employer] MEDICARE [address] [address] [place], [place] [id number] [facility] August Self - patient is the insured MEDICAID Spor [address] [place] [address] [id number] August Self - patient is the insured Medical (General) History Medical History History ICD Code asthma angina hypertension hyperlipidemia type 2 diabetes hyperthyroid allergic rhinitis kidney disease rheumatic fever CAD, stent 06/2021, [facility] 02/17-02/26 [facility] COVID 19 and pneumonia 03/01-03/12/22 [facility] for GI bleed. 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
--- OUTSIDE RECORDS SUMMARY | 2024-08-31 12:47 | XMS_ITS | Encounter Summary ---
Author Organization [employer] Address [address] [place] [address] Care Team Providers Care Special Service Officer Name Role Phone Zia Moore MD Primary Care Provider [phone] Jonathan Gallardo MD Unavailable Elvi Villavicencio MD Unavailable Carissa Drake MD Unavailable Devon Olea MD Unavailable Luis Whalen S Sleep Disorder Unavailable [phone] Carlo Chavez MD Unavailable Reason for Visit * Reason Onset Date Comments Advice Only 08/25/2024 Encounter Details Date Type Department Care Team (Late st Contact Info) Description 08/25/2024 Telephone [facility] Cardiology [address] [place] [address] Jen Brian, HOME CARE SPECIALIST [address] [place], [place] [id number] Advice Only Social History Tobacco Use Types Packs/Day Years [...] your living situation today? I have a [facility] place to live 07/08/2024 Think about the [...] Do you speak a language other than Indonesian at [facility]? No 07/08/2024 Do you want help with [...] on file documented as of this encounter Miscellaneous Notes * Telephone Encounter - Cristiana Martinez - 08/25/2024 12:20 PM EDT I spoke with patient and echo dental scheduler at [facility]. Patient was suppose to have echo sameday but she forgot about her appt, I have faxed order to [facility] [phone] and spoke with the echo dental scheduler Brenda and informed her that Im sending over the order. She noted that once received she will call patient and get it scheduled. I advised her to contact our office if any concerns arise. I advised patient that Mariano will follow up with her and get her echo scheduled, patient verbally understood and thanked me for my call . * Telephone Encounter - Natalie María Elena - 08/25/2024 11:22 AM EDT Patient calling states [facility] will not schedule her echo until she sees another doctor there Is there any way you can get the echo scheduled at [facility] Emergency Department for Patient please contact patient at [phone] documented in this encounter Plan of Treatment Not on file documented as of this encounter Visit Diagnoses Not on filedocumented in this encounter Care Teams Special Service Officer Relationship Specialty Start Date End Date Zia Moore MD [address] [facility] [address] [place] [address] PCP - General Family Medicine 11/20/23 Jonathan Gallardo MD [address] [place] [address] [employer] Guidance Counselor Cardiology 11/20/23 Elvi Villavicencio MD [address] [place] [address] Methods Study Analyst Nephrology 11/26/23 Carissa Drake MD [address] [facility] [place] [address] Neurologist Neurosurgery 11/26/23 Devon Olea MD [address] [place] [address] Pathology Laboratory Director Pulmonary Disease 11/26/23 [place], [facility] S Sleep Disorder [address] [place] [address] Consulting Physician Sleep Medicine 11/26/23 Carlo Chavez MD [address] [place] [id number] Surgeon Cardiothoracic Surgery 12/15/23 documented as of this encounter
--- OUTSIDE RECORDS SUMMARY | 2024-08-31 12:47 | XMS_ITS | Encounter Summary ---
Author Organization [employer] Address [address] [place] [address] Care Team Providers Care Hydraulic Repairer Name Role Phone Zia Moore MD Primary Care Provider [phone] Jonathan Gallardo MD Unavailable Elvi Villavicencio MD Unavailable Carissa Drake MD Unavailable Devon Olea MD Unavailable Luis Whalen S Sleep Disorder Unavailable [phone] Carlo Chavez MD Unavailable Reason for Visit * Reason Onset Date Comments Hospital Follow Up 07/11/2024 Encounter Details Date Type Department Care Team (Late st Contact Info) Description 07/11/2024 Telephone [facility] [address] [place] [address] Zia Moore MD [address] [facility] [address] [facility] Follow Up Social History Tobacco Use Types Packs/Day Years [...] your living situation today? I have a [facility] place to live 07/08/2024 Think about [...] Do you speak a language other than Occitan at [facility]? No 07/08/2024 Do you want [...] encounter Miscellaneous Notes * Telephone Encounter - Cinda Mi Roopa - 07/11/2024 10:24 AM EDT Called patient to inform her of hospital follow up that were scheduled after patient was discharged. Spoke with the patient. Patient is scheduled with Jen Brian APRN on 08/09/24 @ 2:00 pm and also with her pcp office on 07/18/24 @ 1:15 pm. documented in this encounter Plan of Treatment Not on file documented as of this encounter Visit Diagnoses Not on filedocumented in this encounter Care Teams Hydraulic Repairer Relationship Specialty Start Date End Date Zia Moore MD [address] [facility] [address] [place] [address] PCP - General Family Medicine 11/20/23 Jonathan Gallardo MD [address] [place] [address] Dinner Cook Cardiology 11/20/23 Elvi Villavicencio MD [address] [facility] [address] [place] [address] Outside Industrial Sales Representative Nephrology 11/26/23 Carissa Drake MD [address] [place] [address] Neurologist Neurosurgery 11/26/23 Devon Olea MD [address] [facility] [address] [place] [address] Wood Preserving Plant Laborer Pulmonary Disease 11/26/23 [place], [facility] Sleep Disorder [address] [place] [address] Consulting Physician Sleep Medicine 11/26/23 Carlo Chavez MD [address] [facility] [address] [place] [address] Surgeon Cardiothoracic Surgery 12/15/23 documented as of this encounter
--- OUTSIDE RECORDS SUMMARY | 2024-08-31 12:47 | XMS_ITS | Encounter Summary ---
Author Organization [employer] Address [address] [place] [address] Care Team Providers Care Deputy Sheriff Generalist Name Role Phone Zia Moore MD Primary Care Provider [phone] Jonathan Gallardo MD Unavailable Elvi Villavicencio MD Unavailable Carissa Drake MD Unavailable Devon Olea MD Unavailable [phone] Luis Whalen S Sleep Disorder Unavailable + [phone] Carlo Chavez MD Unavailable Encounter Details Date Type Department Care Team (Latest Contact Info) Description 07/07/2024 Travel Social History Tobacco Use Types Packs/Day Years [...] Date Record ed How often does anyone, inclu ding family and friends, physically hurt you? Never [...] your living situation today? I have a [facility] place to live 07/08/2024 Think about the [...] Do you speak a language other than [place] at [facility]? No 07/08/2024 Do you [...] on file documented as of this encounter Plan of Treatment Not on file documented as of this encounter Visit Diagnoses Not on filedocumented in this encounter Care Teams Deputy Sheriff Generalist Relationship Specialty Start Date End Date Zia Moore MD [address] [facility] [address] [place] [address] PCP - General Family Medicine 11/20/23 Jonathan Gallardo MD [address] [place] [address] Express Clerk Cardiology 11/20/23 Elvi Villavicencio MD [address] [facility] [address] [place] [address] Brake Liner Nephrology 11/26/23 Carissa Drake MD [address] [facility] [address] [place], [place] [id number] Neurologist Neurosurgery 11/26/23 Devon Olea MD [address] [facility] [address] [place] [address] Chief Of Staff Pulmonary Disease 11/26/23 [place], [facility] Sleep Disorder [address] [place] [address] Consulting Physician Sleep Medicine 11/26/23 Carlo Chavez MD [address] [facility] [address] [place] [address] Surgeon Cardiothoracic Surgery 12/15/23 documented as of this encounter
--- OUTSIDE RECORDS SUMMARY | 2024-08-31 12:47 | XMS_ITS | Referral Summary ---
Author Organization [employer] Init [employer]atives Address [address] [place] [address] Care Team Providers Care Copyright Manager Name Role Phone Zia Moore MD Primary Care Provider [phone] Jonathan Gallardo MD Unavailable Elvi Villavicencio MD Unavailable Carissa Drake MD Unavailable Devon Olea MD Unavailable Luis Whalen S Sleep Disorder Unavailable Carlo Chavez MD Unavailable Encounters Date Type Department Care Team Description 08/25/2024 Telephone [facility] Cardiology [address] [place] [address] [address] Jen Brian APRN Advice Only 08/09/2024 2:00 PM EDT Office Visit [facility] Cardiology [address] [place] [address] [address] Jen Brian APRN Mitral valve insufficiency, unspecified etiology (Primary Dx) 07/11/2024 [address] [place] [address] Zia Moore MD Hospital Follow Up 07/08/2024 5:03 AM EDT - 07/09/2024 4:40 PM EDT Hospital Encounter [facility] 4 Interventional Care Unit [address] [phone] Christa Gonzalez MD Mitral regurgitation Discharge Disposition: Home or Self Care 07/08/2024 7:28 AM EDT Anesthesia Event [facility] Cardiac Catheterization Lab [address] [phone] Miguelangel Laura MD Bowen, Jon B, MD 07/07/2024 Travel 07/07/2024 10:35 AM EDT - 07/07/2024 11:59 PM EDT Hospital Encounter [facility] Preadmission Testing 1 [place] [address] Christa Gonzalez MD Mitral valve insufficiency, unspecified etiology (Primary Dx); Preop testing Discharge Disposition: Home or Self Care 06/21/2024 Telephone [facility] Cardiology [address] [place] [address] [address] Ana Cole, RN Appointment 06/01/2024 Telephone [facility] Heart [place] Short Stay Unit [address] [phone] Ana Cole, RN Appointment from Last 3 Months Allergies Active Allergy Reactions Criticality Noted Date [...] syndrome 03/09/2022 Atherosclerotic heart diseas e of [place] coronary artery without angina pectoris 03/09/2022 Resolved Problems Problem Noted Date Diagnosed Date Resolved Date Mitral valve disease, rheumatic 11/20/2023 12/15/2023 Social History Tobacco Use Types Packs/Day Years [...] the past 12 months, has t he [employer], gas, oil, or water company threatened to [...] your living situation today? I have a [facility] place to live 07/08/2024 Think about [...] Do you speak a language other than Italian at [facility]? No 07/08/2024 Do you want help with [...] 08/09/2024 2:37 PM EDT Plan of Treatment Not on file Medical Devices Implanted Type Area Electronics Specialist Device Identifier Shelf Expiration Date Model / Serial / Lot St Scr 1019-00-000 - [id number] Implanted:Qty : 10 on 12/18/2023 by Carissa Drake MD at [facility] IMPLANTS N/A: Spine Cervical J &J:DEPUY:DEPUY SPINE 0-000 / -000 / Scr 4.0 Ply 3.5x12 0-35-112 - [id number] Implanted:Qty : 10 on 12/18/2023 by Carissa Drake MD at [facility] IMPLANTS N/A: Spine Cervical J &J:DEPUY:DEPUY SPINE 102035- / -112 / Rich Ti Rich 4.0x060 1019--060 - [id number] Implanted:Qty : 2 on 12/18/2023 by Carissa Drake MD at [facility] IMPLANTS N/A: Spine Cervical J &J:DEPUY:DEPUY SPINE 0 / 0 / Bone Vivigen Formable Cell 5cc -1600-002 - [id number] Implanted:Qty : 1 on 12/18/2023 by Carissa Drake MD at [facility] IMPLANTS N/A: Spine Cervical LIFENET:LIFENET TRANSPLANT SRV 11/25/2024 -1600-002 / [id number] / Fibergraft Mtrx 6.25cc [id number] - [id number] Implanted:Qty : 1 on 12/18/2023 by Carissa Drake MD at [facility] IMPLANTS N/A: Spine Cervical J &J:DEPUY:DEPUY SPINE 07/16/2026 [id number] / / [id number] Imp Sys Rasta Precsn 79029kbs - [id number] Implanted:Qty : 1 on 07/08/2024 at [facility] IMPLANTS Heart HONG LIFESCI [id number] / / Imp Sys Rasta Stbl Rail 51202icr - [id number] Implanted:Qty : 1 on 07/08/2024 at [facility] IMPLANTS Heart [employer]CI [id number] / / Imp Sys Rasta Precsn Mitral V Pas2ma - [id number] Implanted:Qty : 1 on 07/08/2024 at [facility] IMPLANTS Heart [employer] L[employer]CI PAS2MA / [...] of2 resultswithin the time period is included. [facility] ECG ORDERABLES Final Result * (ABNORMAL) Glucose, Nova Meter (07/09/2024 11:20 AM EDT) Only the most recent of4 resultswithin the time period is included. POC-GLUCOSE 150(H) 70 - 110 mg/dL 07/09/2024 11:23 AM EDT [facility] Comment: In the event of poor peripheral blood flow, venous or arterial blood should be used due to the potential of erroneous results. Notified Nurse RBV Weapons Electrical Engineering Officer [id number] 07/09/2024 11:23 AM EDT [facility] Blood WHOLE BLOOD / Unknown 07/09/2024 11:20 AM EDT 07/09/2024 11:23 AM EDT Narrative [facility] - 07/09/2024 11:23 AM EDT Weapons Electrical Engineering Officer ID is - [id number] us Christa Gonzalez MD POINT OF CARE TEST ORDERABLES F inal Result [facility] [address] [phone] * ECHO COMPLETE (DOPPLER / COLOR) WO CONTRAST (07/09/2024 10:37 AM EDT) Anatomical Region Laterality Modality Heart Vascular Ultraso und 07/09/2024 10:0 5 AM EDT Narrative 07/11/2024 2:26 PM EDT TRANSTHORACIC ECHOCARDIOGRAPHY REPORT Demographics Patient Name: BRYAN AUGUST : 1950 [place] Age: 74 year(s) Corporate ID Number: [id number] Gender Female Bundle Shaker: Noe LYONS Height: 60 inches Referring Physician: [...] 2.01 m/s E/A ratio: 0.66 m/s Volume fvmainqrb25.49 LV length: 7.13 cm ml Volume .36 ml LVOT diameter: 1.99 cm Normal sized [...] Valve TR velocity: 3.04 m/s TR gradient: 36.12764 mmHg Estimated RAP: 3 mmHg RVSP: 39.91 [...] HUMBLE Age: 74 year(s) Corporate ID Number: [id number] Gender Female Bundle Shaker: Noe LYONS Height: 60 inches Referring Physician: CHRISTA GONZALEZ MD Weight: 163 pounds Interpreting ANA ROSA CLARKE DO BMI: 31.83kg/m^2 Physician: Date of Service: 07/09/2024 Blood Pressure: 125/54mmHg Type of Study: TTE procedure: ECHO COMPLETE (DOPPLER / COLOR) W OR WO CONTRAST. Patient Status: Routine IP Study Location: [facility] Quality: Adequate visualization History/Tech Notes: Indication: S/P [...] 2.01 m/s E/A ratio: 0.66 m/s Volume mkmcivury53.49 LV length: 7.13 cm ml Volume tosozuxc19.36 ml LVOT diameter: 1.99 cm Normal sized [...] Valve TR velocity: 3.04 m/s TR gradient: 36.39498 mmHg Estimated RAP: 3 mmHg RVSP: 39.91 [...] CBC (Hemogram only) (07/09/2024 5:25 AM EDT) [facility] WBC 8.7 4.0 - 10.0 K/ L 07/09/2024 6:02 AM EDT [facility] RBC 3.44(L) 3.93 - 5.22 M/ L 07/09/2024 6:02 AM EDT [facility] Hemoglobin 10.8(L) 11.2 - 15.7 GM/DL 07/09/2024 6:02 AM EDT [facility] Hematocrit 34.9 34.1 - 44.9 % 07/09/2024 6:02 AM EDT [facility] MCV 102(H) 79 - 95 fL 07/09/2024 6:02 AM EDT [facility] MCH 31.4 25.6 - 32.2 pg 07/09/2024 6:02 AM EDT [facility] MCHC 30.9(L) 32.2 - 35.5 GM/DL 07/09/2024 6:02 AM EDT [facility] RDW 13.4 11.7 - 14.4 % 07/09/2024 6:02 AM EDT [facility] Platelets 236 140 - 375 K/CU MM 07/09/2024 6:02 AM EDT [facility] MPV 9.4 9.4 - 12.3 fL 07/09/2024 6:02 AM EDT [facility] Blood Venipuncture / Unknown 07/09/2024 5:25 AM EDT 07/09/2024 5:35 AM EDT Christa Gonzalez MD LAB BLOOD ORDERABLES Final Resu lt [facility] [address] [phone] * (ABNORMAL) Basic Metabolic Panel (07/09/2024 5:24 AM EDT) Sodium 137 136 - 145 meq/L 07/09/2024 6:08 AM EDT [facility] Potassium 4.7 3.4 - 5.1 meq/L 07/09/2024 6:08 AM EDT [facility] CO2 21(L) 22 - 29 meq/L 07/09/2024 6:08 AM EDT [facility] Chloride 107 98 - 112 meq/L 07/09/2024 6:08 AM EDT [facility] Glucose 111 82 - 115 mg/dL 07/09/2024 6:08 AM EDT [facility] BUN 32.7(H) 9.8 - 20.1 mg/dL 07/09/2024 6:08 AM EDT [facility] Creatinine 1.12(H) 0.57 - 1.11 mg/dL 07/09/2024 6:08 AM EDT [facility] BUN/Creatinine 29(H) 8 - 20 07/09/2024 6:08 AM EDT [facility] Calcium 8.5 8.4 - 10.2 mg/dL 07/09/2024 6:08 AM EDT [facility] Anion Gap 14(H) 4 - 12 07/09/2024 6:08 AM EDT [facility] eGFR (mL/min/1.73m2) 52(L) >=60 mL/min/1.7 3m2 07/09/2024 6:08 AM EDT [facility] Osmolality Calc 281.7 mOsm/kg 6:08 AM EDT [facility] Blood Venipuncture / Unknown 07/09/2024 5:24 AM EDT 07/09/2024 5:30 AM EDT us Christa Gonzalez MD LAB BLOOD ORDERABLES Final Resu lt [facility] [address] [phone] * TOBY (07/08/2024 10:08 AM EDT) Anatomical [...] enlargement All finding discussed with Dr. Gonzalez Miguelangel Laura MD ANESTHESIA ORDERABLES Colleen l Result * CARDIAC CATH - TRANSCATHETER MITRAL VALVE REPAIR (TMVR) (07/08/2024 9:54 AM EDT) Anatomical Region Laterality Modality Heart Other 07/08/2024 8:42 AM EDT Narrative 07/08/2024 1:26 PM EDT Cardiac Diagnostic Report Demographics Patient Name August Date of 1950 [place]BLE Patient # [id number] Medical Record # Physician CHRISTA GONZALEZ MD Date of Study 07/08/2024 NIELS LAURA MD Referring Interventional Physician physician Procedure Procedure Type Diagnostic procedure: Miscellaneous: Percutaneous Mitral Valve Repair Conclusions Procedure Description DAVID - Rasta Procedure (The patient will be included in the STS/ACC TVT Registery with NCDR sponsored by the the [employer] (NCT# [id number]) -Successful transcatheter mitral tfun-fd-qwpw repair (DAVID) with the use of the Rasta system (VELMA device) -Transseptal puncture as part of the procedure Weapons Electrical Engineering Officer : Christa Gonzalez MD Procedure note: 1. [...] 07/08/2024 Cardiac Diagnostic Report Demographics Patient Name ADDIEVILLE TRINITY Date of Birth1950 [place] Patient # [id number] Medical Record # Physician CHRISTA GONZALEZ MD Date of Study07/08/2024 NIELS LAURA MD Referring Interventional Physician physician Procedure Procedure Type Diagnostic procedure: Miscellaneous: Percutaneous Mitral Valve Repair Conclusions Procedure Description DAVID - Rasta Procedure (The patient will be included in the STS/ACC TVT Registery with NCDR sponsored by the the [employer] (NCT# [id number]) -Successful transcatheter mitral prbl-qg-suzu repair (DAVID) with the useof the Rasta system (VELMA device) -Transseptal puncture as part of the procedure Weapons Electrical Engineering Officer : Christa Gonzalez MD Procedure note: 1. [...] Gonzalez MD CV CARDIAC CATH ORDERABLES Colleen l Result * (ABNORMAL) POC ACTIVATED CLOTTING TIME (07/08/2024 9:14 AM EDT) Pathologist [facility] Activated Clotting Time 383(H) 74 - 137 sec 07/08/2024 12:06 PM EDT [facility] Weapons Electrical Engineering Officer [id number] 07/08/2024 12:06 PM EDT [facility] Blood 07/08/2024 9:14 AM EDT 07/08/2024 12:06 PM EDT Narrative [facility] - 07/08/2024 12:06 PM EDT Weapons Electrical Engineering Officer ID is - [id number] Christa Gonzalez MD POINT OF CARE TEST ORDERABLES F inal Result [facility] [address] [phone] * AN SINGLE LUMEN INTUBATION (07/08/2024 8:16 AM EDT) Whit French CRNA - 07/08/2024 8:16 AM EDT Whit Cisse CRNA 07/08/2024 8:24 AM Intubation Authorized by: Miguelangel Laura MD Performed by: Whit Csise CRNA Date/Time: 07/08/2024 8:16 AM Urgency: elective [...] attempted: 0 Additional Comments Atraumatic intubation Miguelangel Laura MD ANESTHESIA ORDERABLES Colleen lowry Result * (ABNORMAL) Urinalysis w/Microscopic (07/08/2024 6:24 AM EDT) Color, UA Light Yellow 07/08/2024 6:33 AM EDT [facility] Clarity, UA Turbid(A) Clear 07/08/2024 6:33 AM EDT [facility] Specific [place], UA 1.020 1.005 - 1.030 07/08/2024 6:33 AM EDT [facility] pH, UA 6.5 6.0 - 8.0 07/08/2024 6:33 AM EDT [facility] Leukocytes, UA 250 Leanne/uL(A) Negative 07/08/2024 6:33 AM EDT [facility] Nitrite, UA Negative Negative 07/08/2024 6:33 AM EDT [facility] Protein, UA Negative Negative 07/08/2024 6:33 AM EDT [facility] Glucose, UA 4+(A) Normal 07/08/2024 6:33 AM EDT [facility] Ketones, UA Negative Negative 07/08/2024 6:33 AM EDT [facility] Urobilinogen, UA Normal Normal 07/08/2024 6:33 AM EDT [facility] Bilirubin, UA Negative Negative 07/08/2024 6:33 AM EDT [facility] Blood, UA Negative Negative 07/08/2024 6:33 AM EDT [facility] RBC, UA 0-2(A) None Seen /HPF 07/08/2024 6:33 AM EDT [facility] WBC, UA 21-50(A) None Seen /HPF 07/08/2024 6:33 AM EDT [facility] Bacteria, UA 2+(A) None Seen, Trace 07/08/2024 6:33 AM EDT [facility] SQUAMOUS EPITHELIAL 0-2(A) None Seen /HPF 07/08/2024 6:33 AM EDT [facility] Specimen Source Urine, Clean Catch 07/08/2024 6:33 AM EDT [facility] Urine URINE SPECIMEN COLLECTION, CLEAN CATCH / Unknown 07/08/2024 6:24 AM EDT 07/08/2024 6:24 AM EDT us Christa Gonzalez MD URINE ORDERABLES Final Result [facility] [address] [place] [address], [facility] [[email or web address]] [phone] * Antibody Identification (07/08/2024 6:13 AM EDT) Antibody Identification Anti-E 07/08/2024 9:45 AM EDT [facility] ([place]) Blood Venipuncture / Unknown 07/08/2024 6:13 AM EDT 07/08/2024 6:16 AM EDT us Christa Gonzalez MD [facility] TEST ORDERABLES Final Result Performing Organization Address City/[facility]/ZIP Co de Phone Number [facility] ([place]) [address] [place] [address], [facility] [[email or web address]] [phone] * (ABNORMAL) Type and Screen (07/08/2024 6:13 AM EDT) ABO/Rh O Positive 07/08/2024 5:58 AM EDT [facility] ([place]) Antibody Screen Positive(A) 07/08/2024 5:58 AM EDT [facility] ([place]) HISTCHK HIST CHECK PERFORMED 07/08/2024 5:58 AM EDT [facility] ([place]) Blood Venipuncture / Unknown 07/08/2024 6:13 AM EDT 07/08/2024 6:16 AM EDT Christa Gonzalez MD [facility] BLOOD BANK TEST ORDERABLES Edited Result - Final [facility] - [facility] ([place]) 1 [facility] [place] [address], [facility] [[email or web address]] [phone] * EKG-SCANNED (07/08/2024) Narrative 07/08/2024 Ordered by an unspecified provider. us Default Scanning Provider SCAN ORDERS Final Result * (ABNORMAL) CBC with automated diff (07/07/2024 11:13 AM EDT) WBC 7.5 4.0 - 10.0 K/ L 07/07/2024 12:32 PM EDT [facility] RBC 4.25 3.93 - 5.22 M/ L 07/07/2024 12:32 PM EDT [facility] Hemoglobin 13.3 11.2 - 15.7 GM/DL 07/07/2024 12:32 PM EDT [facility] Hematocrit 41.6 34.1 - 44.9 % 07/07/2024 12:32 PM EDT [facility] MCV 98(H) 79 - 95 fL 07/07/2024 12:32 PM EDT [facility] MCH 31.3 25.6 - 32.2 pg 07/07/2024 12:32 PM EDT [facility] MCHC 32.0(L) 32.2 - 35.5 GM/DL 07/07/2024 12:32 PM EDT [facility] RDW 13.5 11.7 - 14.4 % 07/07/2024 12:32 PM EDT [facility] Platelets 331 140 - 375 K/CU MM 07/07/2024 12:32 PM EDT [facility] MPV 9.4 9.4 - 12.3 fL 07/07/2024 12:32 PM EDT [facility] % Neutros 69 34 - 71 % 07/07/2024 12:32 PM EDT [facility] % Lymphs 18(L) 19 - 52 % 07/07/2024 12:32 PM EDT [facility] % Monos 7 5 - 13 % 07/07/2024 12:32 PM EDT [facility] % Eos 4 1 - 6 % 07/07/2024 12:32 PM EDT [facility] % Baso 0 0 - 1 % 07/07/2024 12:32 PM EDT [facility] NRBC Absolute <0.01 0 - 0.012 K/ul 07/07/2024 12:32 PM EDT [facility] # Neutros 5.21 1.56 - 6.13 K/ L 07/07/2024 12:32 PM EDT [facility] # Lymphs 1.37 1.18 - 3.74 K/ L 07/07/2024 12:32 PM EDT [facility] # Monos 0.56 0.24 - 0.86 K/ L 07/07/2024 12:32 PM EDT [facility] # Eos 0.27 0.04 - 0.36 K/ L 07/07/2024 12:32 PM EDT [facility] # Baso 0.03 0.01 - 0.08 K/ L 07/07/2024 12:32 PM EDT [facility] Immature Granulocytes-Re lative 1.10(H) 0.01 - 0.43 % 07/07/2024 12:32 PM EDT [facility] # IG 0.08(H) 0.00 - 0.03 K/uL 07/07/2024 12:32 PM EDT [facility] Blood Venipuncture / Unknown 07/07/2024 11:13 AM EDT 07/07/2024 12:25 PM EDT Narrative [facility] - 07/07/2024 12:32 PM EDT When [...] MD LAB BLOOD ORDERABLES Final Resu lt [facility] 1 [place] [address], [facility] [[email or web address]] [phone] * (ABNORMAL) Comprehensive metabolic panel (07/07/2024 11:13 AM EDT) Sodium 140 136 - 145 meq/L 07/07/2024 12:47 PM EDT [facility] Potassium 4.9 3.4 - 5.1 meq/L 07/07/2024 12:47 PM EDT [facility] Chloride 105 98 - 112 meq/L 07/07/2024 12:47 PM EDT [facility] CO2 25 22 - 29 meq/L 07/07/2024 12:47 PM EDT [facility] Calcium 9.7 8.4 - 10.2 mg/dL 07/07/2024 12:47 PM EDT [facility] Glucose 111 82 - 115 mg/dL 07/07/2024 12:47 PM EDT [facility] BUN 33.3(H) 9.8 - 20.1 mg/dL 07/07/2024 12:47 PM EDT [facility] Creatinine 1.08 0.57 - 1.11 mg/dL 07/07/2024 12:47 PM EDT [facility] BUN/Creatinine 31(H) 8 - 20 07/07/2024 12:47 PM EDT [facility] eGFR (mL/min/1.73m2) 54(L) >=60 mL/min/1. 73m2 07/07/2024 12:47 PM EDT [facility] Albumin 3.6 3.5 - 5.0 g/dL 07/07/2024 12:47 PM EDT [facility] Alkaline Phosphatase 102 40 - 150 U/L 07/07/2024 12:47 PM EDT [facility] ALT 10 <=34 U/L 07/07/2024 12:47 PM EDT [facility] Comment: ALT2 reagent used for testing does not contain P5P supplementation and therefore may miss ALT elevations in patients with B6 deficiency. This population may be as high as 10% in the [place], with risk factors including malabsorption, drug interactions, and alcoholic hepatitis. AST 21 11 - 34 U/L 07/07/2024 12:47 PM EDT [facility] Comment: AST2 reagent used for testing does not contain P5P supplementation and therefore may miss AST elevations in patients with B6 deficiency. This population may be as high as 10% in the [place], with risk factors including malabsorption, drug interactions, and alcoholic hepatitis. Total Bilirubin 0.3 0.2 - 1.2 mg/dL 07/07/2024 12:47 PM EDT [facility] Protein, Total 7.5 6.4 - 8.3 g/dL 07/07/2024 12:47 PM EDT [facility] Globulin 3.9 2.5 - 4.1 g/dL 07/07/2024 12:47 PM EDT [facility] Anion Gap 15(H) 4 - 12 07/07/2024 12:47 PM EDT [facility] A/G Ratio 0.9 0.7 - 1.9 07/07/2024 12:47 PM EDT [facility] Osmolality Calc 287.5 mOsm/kg 12:47 PM EDT [facility] Blood Venipuncture / Unknown 07/07/2024 11:13 AM EDT 07/07/2024 12:25 PM EDT us Christa Gonzalez MD LAB BLOOD ORDERABLES Final Resu lt [facility] [address] [phone] from Last 3 Months Insurance [facility] ADV DUAL COMPLETE MEDICAID [place] Advance Directives For more information, please contact: [phone] * Full Code (Latest Code Status on File) Date Activated Date Inactivated Comments 07/08/2024 10:19 AM 07/09/2024 5:44 PM * Full Code Date Activated Date Inactivated Comments 05/05/2024 12:13 PM 05/06/2024 4:27 AM * Full Code Date Activated Date Inactivated Comments 12/18/2023 1:51 PM 12/24/2023 4:20 PM Care Teams Copyright Manager Relationship Specialty Start Date End Date Zia Moore MD [address] [place] [address] PCP - General Family Medicine 11/20/23 Jonathan Gallardo MD [address] [place] [address] Professor Of Forestry Cardiology 11/20/23 Elvi Villavicencio MD [address] [facility] [address] [place] [address] Mortgage Loan Originator Nephrology 11/26/23 Carissa Drake MD [address] [facility] [address] [place] [address] Neurologist Neurosurgery 11/26/23 Devon Olea MD [address] [facility] [address] [id number] Dairy Processing Equipment Operator Pulmonary Disease 11/26/23 [place], [facility] Sleep Disorder [address] [place] [address] Consulting Physician Sleep Medicine 11/26/23 Carlo Chavez MD [facility] [address] [place] [address] Surgeon Cardiothoracic Surgery 12/15/23
== END 2024-08-31 23:59 | disposition home or self-care (01) ==
LOC: RT 12:38
PROVIDERS: PCP Family Medicine; Visit Provider Nurse Practitioner Acute Care
DX: I08.1 Rheumatic disorders of both mitral and tricuspid valves (principal); Z95.2 Presence of prosthetic heart valve
CPT/HCPCS: 93306

== ENCOUNTER 2024-09-26 12:46 | Outpatient (CLI) | payer MEDICARE, MEDICAID, SELFPAY ==
--- OUTSIDE RECORDS SUMMARY | 2024-07-25 11:15 | XMS_ITS ---
Author Organization Sal Address [address] [place] [address] [address] [facility] [address] [place]KK[place] Patiño [phone] Care Team Providers Care Contact Lens Assistant Name Role Phone Mi Moore [phone] REASON FOR VISIT F/U [facility] Encounters Encounter Location Date Provider Diagnosis [facility] [address] [facility] [address] [facility] [address] [place] [id number] 07/25/2024 Mi Moore Plan Of Treatment Next Appt Details Provider Name:Mi Crawford er, 10/20/2024 02:45:00 PM, [address] [facility] [address] [facility], [address], [place], [phone], Progress Notes * BRYAN AUGUSTDOB:1950 (74 yo F)Acc No.[id number]:07/25/2024 Progress Notes Patient: Rebel NARVAEZ KEIRY Provider: Mi Moore M.D. :1950 A ge:74 Y S ex:Female Date:07/25/2024 Address:[address] [place], [place] [id number] Subjective: * Chief Complaints: * 1 . F/U [facility]. * Medical History: Objective: * Vitals: Assessment: Plan: * Treatment: * Images: Billing Information: * Visit Code: * Procedure Codes: * Electronic signature of Mi Moore MD on 09/26/2024 at 12:50 PM EDT Sign off status: Pending * Provider: Mi Moore M.D. Date: 07/25/2024 Generated for Lavoni camden/Kami/eTransmitting on: 09/26/2024 12:50 PM EDT
--- OUTSIDE RECORDS SUMMARY | 2024-08-09 14:00 | XMS_ITS | Encounter Summary ---
Author Organization [employer] ([place], [place], [place], [place]) Address [address] [place] [address] Care Team Providers Care Division Sales Manager Name Role Phone Zia Moore MD Primary Care Provider Jonathan Gallardo MD Unavailable Elvi Villavicencio MD Unavailable Carissa Drake MD Unavailable [phone] Devon Olea MD Unavailable [phone] Luis Whalen S Sleep Disorder Unavailable + [phone] Carlo Chavez MD Unavailable Reason for Referral * Echocardiography (Routine) - Authorized Specialty Diagnoses / Procedures Referred By Contac t Referred To Contact Diagnoses Mitral valve insufficiency, unspecified etiology Procedures ECHO COMPLETE (DOPPLER / COLOR) W OR WO CONTRAST Jen Brian APRN [address] [facility] [address] [place] [address] Phone: tel: fax: Referral ID Status Reason Start Date Expiration Date V isits Requested Visits Authorized [id number] Authorized 02/24/2025 02/24/2026 1 1 Reason for Visit * Reason Comments Follow-up Encounter Details Date Type Department Care Team (Late st Contact Info) Description 08/09/2024 2:00 PM EDT [facility] Visit [facility] Cardiology [address] [place] [address] Jen Brian, SENIOR SOLUTIONS ARCHITECT [address] [facility] [address] [place] [address] Mitral valve insufficiency, unspecified etiology (Primary Dx) Social History Tobacco Use Types Packs/Day Years Used Date Smoking Tobacco: Former Cigarettes Passive Smoke Exposure: Current Smokeless Tobacco: Never Comments:Smoked for 50 yrs , Quit 3 yrs ago Alcohol Use Standard Drinks/Week Comments Never 0 (1 standard drink = 0.6 oz pur e alcohol) [facility] - Mental Health Answer Date Recorde d Little interest or pleasure in doing things Not at all 07/07/2024 Feeling down, depressed, or hopeless Not at all 07/07/2024 Feeling of Stress Not on file 07/07/2024 Utilities Answer Date Recorded In the [...] your living situation today? [facility] 07/08/2024 Think about the [...] Do you speak a language other than [place] at [facility]? No 07/08/2024 Do you want help with school or training? For example, starting or completing job training or getting a high school diploma, GED or equivalent. No 07/08/2024 Physical Activity Answer Date Recorded Number of minutes of exercise per week 0 07/08/2024 Self Management Answer Date Recorded Because of a physical, [...] you used [place] legal drugs? Never 07/08/2024 Mental Health Answer Date Recorded Calculation of above two rows 0 Comments No Sex and Gender Information Value Date Recorded Sex Assigned at Female 09/17/2021 1:57 PM CDT Legal Sex Female 1:57 PM CDT Gender Identity Female 09/17/2021 1:57 PM CDT Sexual Orientation Not on file documented as of this encounter Last Filed Vital Signs Vital Sign Reading Time Taken Comments Blood Pressure 110/60 08/09/2024 2:37 PM EDT Pulse 62 08/09/2024 2:37 PM EDT Temperature - - Respiratory Rate - - Oxygen Saturation - - Inhaled Oxygen Concentration - - Weight 75.3 kg (166 lb) 08/09/2024 2:37 PM EDT Height 154.9 cm (5' 1 ) 08/09/2024 2:37 PM EDT Body Mass Index 31.37 08/09/2024 2:37 PM EDT documented in this encounter Progress Notes * Jen Brian, SENIOR SOLUTIONS ARCHITECT - 08/09/2024 2:00 PM EDT Basic Information: Name: Trinity Silvestre, :1950 PCP: Zia Moore MD HPI: Trinity Silvestre is a 74 y.o. year old female with a past medical history of rheumatic heart disease and severe mitral regurgitation. She presents to the office today today for hospital follow up. She underwent percutaneous mitral valve repair on 07/08/2024. Following the procedure she has been doing well. She is compliant with her medications. She denies any chest pain, shortness of breath,palpitations, dizziness, edema, or syncope. Review of Systems: ROS Pertinent positives as listed in the HPI. All other systems reviewed are negative. History: History Past Medical History: Diagnosis Date DIANELYS (acute kidney injury) (HCC) Anemia Arthritis Blood transfusion without reported diagnosis CAD (coronary artery disease) Cervical lymphadenopathy Chronic respiratory failure with hypoxia (HCC) Constipated COPD with asthma (HCC) Edema of lower extremity Elevated liver enzymes Encephalomyopathy Endobronchial mass Essential tremor Fungal infection Gastroenteritis GI (gastrointestinal bleed) Heart failure with preserved ejection fraction (HCC) Hilar lymphadenopathy Hyperlipidemia Hypertension Hypokalemia Lower extremity edema Mediastinal lymphadenopathy Mitral regurgitation Multifocal atrial tachycardia (HCC) Multiple lung nodules on CT NSTEMI (non-ST elevated myocardial infarction) (HCC) Onychodystrophy Paroxysmal atrial fibrillation (HCC) Peripheral neuropathy Pneumonia due to COVID-19 virus Rheumatic fever/heart disease in high school Sepsis (HCC) Severe mitral regurgitation SIRS (systemic inflammatory response syndrome) (HCC) Sleep apnea no CPAP Spinal stenosis in cervical region Stage 3a chronic kidney disease (CKD) (HCC) Thyroid disease Transaminitis Type 2 diabetes mellitus (HCC) diet controlled Past Surgical History: Procedure Laterality Date CARDIAC CATHETERIZATION 09/16/[address] Jonathan Gallardo @ [facility] CHOLECYSTECTOMY CORONARY STENT PLACEMENT EYE SURGERY Bilateral Cataract HIP SURGERY Bilateral Arthroplasty HYSTERECTOMY LAMINECTOMY,POSTERIOR CERVICAL PRONE W/FUSION N/A 12/18/2023 Procedure: (C3-C6 POSTERIOR LAMINECTOMY AND FUSION USING AIRO); Surgeon: Carissa Drake MD; Location: [facility]; Service: Neurological Surgery; Laterality: N/A; [place] 0900, 3HRS(A), PASS, AIRO TONSILLECTOMY Social History Tobacco Use Smoking status: Former Types: Cigarettes Passive exposure: Current Smokeless tobacco: Never Tobacco comments: Smoked for 50 yrs , Quit 3 yrs ago Vaping Use Vaping status: Never Used Substance Use Topics Alcohol use: Never Drug use: Never Allergies Allergen Reactions Ciprofloxacin Hives, Itching and Other (See Comments) Pt reports she is allergic to ciprofloxacin when it is mixed with any other antibiotics (rxn: itching) Atorvastatin Other (See Comments) Muscle weakness Fosamax [Alendronate] dizziness Isosorbide Tuberculin Ppd Prior Cardiac/Vascular Testing: No specialty comments available. Medications: Scheduled Meds: Continuous Infusions: Current Outpatient Medications Medication Sig Dispense Refill acetaminophen (TYLENOL) 500 MG tablet Take 1 tablet (500 mg total) by mouth every 4 (four) hours asneeded. albuterol HFA (VENTOLIN HFA) 90 mcg/actuation inhaler Inhale 2 puffs by mouth every 4 (four) hours as needed. aspirin 81 MG chewable tablet Take 1 tablet (81 mg total) by mouth daily. bisoprolol (ZEBETA) 5 MG tablet Take 2 [...] daily. No current facility-administered medications for this visit. PRN Meds:.@MEDSPRN@ Objective: BP 110/60 (BP Location: Right arm, Patient Position: Sitting, Cuff Size: Large Adult) Pulse 62 Ht 1.549 m (5' 1 ) Wt 75.3 kg (166 lb) BMI 31.37 kg/m?? Physical Exam Vitals reviewed. Constitutional: Appearance: Normal appearance. HENT: Head: Normocephalic. Neck: Vascular: No carotid bruit. Cardiovascular: Rate and Rhythm: Normal rate and regular rhythm. Pulses: Normal pulses. Heart sounds: Normal heart sounds. No murmur heard. Pulmonary: Effort: Pulmonary effort is normal. Breath sounds: Normal breath sounds. Abdominal: General: There is no distension. Palpations: Abdomen is soft. Musculoskeletal: General: No swelling or deformity. Skin: General: Skin is warm and dry. Capillary Refill: Capillary refill takes less than 2 seconds. Neurological: General: No focal deficit present. Mental Status: She is alert and oriented to person, place, and time. Psychiatric: Mood and Affect: Mood normal. Behavior: Behavior normal. EKG: Sinus Rhythm, ventricular rate 62 bpm Assessment: No diagnosis found. *severe mitral regurgitation -07/08/2024 Percutaneous Mitral Valve Repair- Successful transcatheter mitral vlsn-vz-jrkx repair (DAVID) with the use of the Rasta system (VELMA device) * Hypertension * hyperlipidemia * Severe COPD Plan: - ECHO scheduled for later today. Structural sales development coordinator will call the results later today. -Continue with Plavix daily - BP is well controlled on current antihypertensive medications Encouraged patient to increase physical activity for a goal of 150 minutes of moderate cardiovascular activity each week. Follow a heart healthy diet to reduce cardiovascular risk. Follow- up: With primary Servicer Travel Trailers Dr Gallardo, as previously scheduled. documented in this encounter Plan of Treatment Scheduled Orders Name Type Priority Associated Diagnoses Orde r Schedule ECHO COMPLETE (DOPPLER / COLOR) W OR WO CONTRAST Echocardiography Routine Mitral valve insufficiency, unspecified etiology Expected: 02/24/2025, Expires: 09/24/2025 documented as of this encounter Procedures Procedure Name Priority Date/Time Associated Diagnosis Comments FS_MODEL_IP_ECG 12-LEAD Routine 08/25/2024 12:48 PM EDT Mitral valve insufficiency, unspecified etiology documented in this encounter Results * ECG 12 lead (08/25/2024 12:48 PM EDT) us Jen Brian APRN ECG ORDERABLES Final Result documented in this encounter Visit Diagnoses Diagnosis Mitral valve insufficiency, unspecified etiology- Primary documented in this encounter Care Teams Division Sales Manager Relationship Specialty Start Date End Date Zia Moore MD [address] [facility] [address] [place] [address] PCP - General Family Medicine 11/20/23 Jonathan Gallardo MD [address] [place] [address] Servicer Travel Trailers Cardiology 11/20/23 Elvi Villavicencio MD [address] [facility] [address] [place] [address] Supervisor Weaving Nephrology 11/26/23 Carissa Drake MD [address] [facility] [address] [place] [address] Neurologist Neurosurgery 11/26/23 Devon Olea MD [address] [place] [address] Leasing Coordinator Pulmonary Disease 11/26/23 [place], [facility] Sleep Disorder [address] [place] [address] Consulting Physician Sleep Medicine 11/26/23 Carlo Chavez MD [address] [facility] [address] [place] [address] Surgeon Cardiothoracic Surgery 12/15/23 documented as of this encounter
--- OUTSIDE RECORDS SUMMARY | 2024-09-05 11:15 | XMS_ITS ---
Author Organization [facility] Address Formerly [facility], [facility]0 [facility] [address] [place] [id number] Care Team Providers Care Sporting Goods Sales Manager Name Role Phone Mi Moore Unavailable [phone] Allergies Allergen (clinical drug ingredient) Drug/Non Drug Allergy documented on EMR Reaction Allergy Type Onset Date Status ciprofloxacin Cipro hives Drug Allergy Act angel Results Component Value Reference Range Notes CBC Venipuncture (in house) Reviewed date:09/16/2024 03:44:30 PM Interpretation: Performing Lab: Notes/Report: wbc 6.1 3.5 - 10 lymph 18.2% 15 - 50 mid 5.5% 2 - 15 gran 76.3% 35 - 80 rbc 3.70 3.5 - 5.5 hgb 11.6 11.5 - 16.5 hct 36.5 35 - 55 mcv 98.6 75 - 100 mch 31.5 25 - 35 mchc 31.9 31 - 38 platlet 301 100 - 400 P-Basic Metabolic Panel (BMP ) Reviewed date:09/19/2024 06:21:11 PM Interpretation: Performing Lab: Notes/Report: Test performed by [email or web address] [address] [place] [address] , [address], [place] [address] Papo Seals MD, Political Advisor CLIA: [id number] Sodium 143 135-145 mmol/L Potassium 5.7 3.5-5.3 mmol/L Chloride 103 97-108 mmol/L CO2 27 22-32 mmol/L Glucose 197 65-99 mg/dL BUN 25 8-23 mg/dL Creatinine 1.25 0.50-1.00 mg/dL Calcium 9.5 8.6-10.4 mg/dL eGFR by Creatinine 45 >59 mL/min/1.73m2 REASON FOR VISIT 2 month ckup, Needs labs, colon cancer screening, mammoram, bone density screening, & diabetic eye exam Medications Medication SIG (Take, Route, Frequency, Duration) Notes Start Date End Date Status Cefadroxil 500 MG 1 capsule Orally every 12 hrs; Duration: 5 day(s) 08/23/2024 Not-Taking Clopidogrel Bisulfate 75 MG 1 tablet Orally Once a day; Duration: 30 days Active Primidone 50 MG TAKE 2 TABLETS BY MOUTH ONCE DAILY AT BEDTIME Orally At Bed Time; Duration: 30 days Active Natural Senna Laxative 8.6 MG 1 tablets at bedtime as needed Orally Once a day 10/29/2022 Not-Taking Furosemide 20 MG 1 tablet daily; Duration: 30 days Active Gabapentin 100 MG 1 cap(s) orally 2 times a day; Duration: 30 days 08/03/2024 Active Dulera 200-5 MCG/ACT 2 PUFF INHALED TWICE A DAY Active Farxiga 10 MG 1 tablet Orally Once a day 04/21/2024 Active FeroSul 325 (65 Fe) MG TAKE 1 TAB(S) ORALLY 2 TIMES A DAY 90 DAYS Active Bisoprolol Fumarate 5 MG 2 tablet Orally Once a day; Duration: 90 days Active Levothyroxine Sodium 75 MCG 1 tablet in the morning on an empty stomach Orally Once a day Active Walker with Wheels as directed Hx of Falling Z91.81 05/23/2024 Active Spiriva Respimat 1.25 MCG/ACT 2 PUFFS ONCE DAILY Inhalation Once a day Active Furosemide 20 MG 1 tablet Orally on Thursday and Thursday Active Magnesium 400 MG as directed Orally Active Vital Signs Blood pressure systolic 110 mm Hg 09/06/19 25 Blood pressure diastolic 70 mm Hg 025 Heart Rate 70 /min 09/05/2024 Height 61 in 09/05/2024 Weight 000 lbs 09/05/2024 Encounters Encounter Location Date Provider Diagnosis [facility] [address] [facility] [address] [place], [place] [id number] 09/05/2024 Mi Moore S/P mitral valve rep air Z98.890 ; Localized edema R60.0 ; Valvular disease I38 ; Acute cough R05.1 ; Anemia D64.9 ; Hx: UTI (urinary tract infection) Z87.440 ; Chronic obstructive pulmonary disease, unspecified COPD type J44.9 and Type 2 diabetes mellitus with other circulatory complications E11.59 Assessments Encounter Date Diagnosis (ICD Code) Assessment Notes Treatment Notes Treatment Clinical Notes Section Notes 09/05/2024 S/P mitral valve repair (ICD-10 - Z98.890) 09/05/2024 Localized edema (ICD-10 - R60.0) 09/05/2024 Valvular disease (ICD-10 - I38) 09/05/2024 Acute cough (ICD-10 - R05.1) 09/05/2024 Anemia (ICD-10 - D64.9) 09/05/2024 Hx: UTI (urinary tract infection) (ICD-10 - Z87.440) 09/05/2024 Chronic obstructive pulmonary disease, unspecified COPD type (ICD-10 - J44.9) 09/05/2024 Type 2 diabetes mellitus with other circulatory complications (ICD-10 - E11.59) Plan Of Treatment Medication Medication Name Sig Start Date Stop Date Notes Furosemide 20 MG 1 tablet daily; Duration: 30 days Next Appt Details Follow Up: 2 Weeks, Reason: Provider Name:Mi Crawford er, 10/20/2024 02:45:00 PM, [address] [facility] [address] [facility], [address], [place], [place], [phone], Progress Notes * BRYAN AUGUSTDOB:1950 (74 yo F)Acc No.[id number]:09/05/2024 Progress Notes Patient: Rebel NARVAEZ AUGUST Provider: Mi Moore M.D. :1950 A ge:74 Y S ex:Female Date:09/05/2024 Address:[address] [place] [address] Subjective: * Chief Complaints: * 1 . 2 month ckup. 2. Needs labs, colon cancer screening, mammoram, bone density screening, & diabetic eye exam. * HPI: H PI: 74 year old female presents with c/o Patient is here today for?Pt is here today for a f/u from the ER. Pt sts that her uti is much better, but sts she does still have a cough. Pt sts she has been taking her allergy medication and drinking more water. C ardiology: TRANS ARTERIAL MITRAL VALVE REPAIR June., [facility]. ER VISIT FOR BRONCHITIS AND UTI 08/18 (SEE REPORT), WITH REFILL CEFADROXIL 08/23. * ROS: D ERMATOLOGY: no R noé. n o H nadya. G ASTROENTEROLOGY: Positive for f ood prep is a problem; she now eats mostly frozen meals prepared in the microwave; she worries about salt content. n o N ausea. n o?Vomiting. n o D iarrhea. U ROLOGY: no D ifficulty urinating. n o B lood in urine. * Medical History: A sthma, Angina, Hypertension, Hyperlipidemia, Type 2 diabetes, Hyperthyroid, Allergic rhinitis, Kidney disease, Rheumatic fever, CAD, stent 06/2021, [facility], 02/17-02/26 [facility] COVID 19 and pneumonia, 03/01-03/12/22 [facility] for GI bleed.. * Surgical History: S tent to Left Main Coronary artery, [facility] 07/10/2021, Right total hip arthroplasty , Left total hip arthroplasty , Cervical spine surgery, C3-C7 arthrodesis and fusion of C3-C6 12/18/23, Percutaneous coronary intervention; mitral valve repair (TMVR) 07/08/2024. * Hospitalization/Major Diagno stic Procedure: N STEMI, COPD, stent to Left Main cornary artery 06/2021, [facility] Septic shock; sepsis;elevated LFT;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, [facility] Hosp: MV disease with TMVR by Dr Mejia 07/08-07/09/2024. * Family History: F ather: diagnosed with Diabetes, Hypertension, Heart Disease. M other: diagnosed with Hypertension, Diabetes. P aternal Grand Mother: diagnosed with Hypertension, Diabetes. M aternal Grand Mother: diagnosed with Hypertension, Diabetes. 2 son(s) , 1 daughter(s) . . * Social History: C URRENT TOBACCO USE: No . C affeine: yes, frequency: coffee and soft drinks. 2 a day. Occupation: not working. * Medications: T aking Walker with Wheels as directed , Notes to Pharmacist: Hx of Falling Z91.81, Taking Levothyroxine Sodium 75 MCG Tablet 1 tablet in the morning on an empty stomach Orally Once a day , Taking Magnesium 400 MG Capsule as directed Orally , Taking Furosemide 20 MG Tablet 1 tablet Orally on Thursday and Thursday , Taking Spiriva Respimat 1.25 MCG/ACT Aerosol Solution 2 PUFFS ONCE DAILY Inhalation Once a day , Taking Dulera 200-5 MCG/ACT Aerosol 2 PUFF INHALED TWICE A DAY , Taking FeroSul 325 (65 Fe) MG Tablet TAKE 1 TAB(S) ORALLY 2 TIMES A DAY 90 DAYS , Taking Farxiga 10 MG Tablet 1 tablet Orally Once a day , Taking Bisoprolol Fumarate 5 MG Tablet 2 tablet Orally Once a day , Taking Gabapentin 100 MG Capsule 1 cap(s) orally 2 times a day , Taking Primidone 50 MG Tablet TAKE 2 TABLETS BY MOUTH ONCE DAILY AT BEDTIME Orally At Bed Time , Taking Clopidogrel Bisulfate 75 MG Tablet 1 tablet Orally Once a day , Not-Taking Cefadroxil 500 MG Capsule 1 capsule Orally every 12 hrs , Not-Taking Natural Senna Laxative 8.6 MG Tablet 1 tablets at bedtime as needed Orally Once a day , Medication List reviewed and reconciled with the patient * Allergies: C ipro: hives. Objective: * Vitals: W t: 000, Temp: 98.4, BP: 110/70, HR: 70, O2 Sat: 94% on RA, Nurse: bill, Ht: 61. * Examination: G eneral Examination: General Appearance: N AD. In wheelchair. C-Spine brace in place. H EENT: u nremarkable. O ral cavity: n o lesions, mucosa moist and WNL, no erythema. N heaven: s upple, no lymphadenopathy. C hest: n ormal shape and expansion. Heart: R SR. L ungs: d ecreased breath sounds. A bdomen: soft and nontender, no organomegaly or masses. N eurologic Exam: t remor of the hands a nd the head significantly improved . S kin: n ormal, no rash. P eripheral pulses: n ormal. E xtremities: 2 ++ leg edema. Assessment: * Assessment: 1. S /P mitral valve repair - Z98.890 (Primary) 2 . V alvular disease - I38? 3. L ocalized edema - R60.0 4 . A nemia - D64.9 5 . A cute cough - R05.1 6 . H x: UTI (urinary tract infection) - Z87.440 7 . C hronic obstructive pulmonary disease, unspecified COPD type - J44.9? 8. T ype 2 diabetes mellitus with other circulatory complications - E11.59 ? Plan: * Treatment: Value Reference Range B UN 25 H 8-23 - mg/dL * C alcium 9.5 8.6-10.4 - mg/dL * C hloride 103 97-108 - mmol/L * C O2 27 22-32 - mmol/L * C reatinine 1.25 H 0.50-1.00 - mg/dL * G lucose 197 H 65-99 - mg/dL * P otassium 5.7 H 3.5-5.3 - mmol/L * S odium 143 135-145 - mmol/L * e GFR by Creatinine 45 L >59 - mL/min/1.73m2 * see 09/19/24 OV- labs re-orde red 2.?Valvular disease?LAB: P-Basic Metabolic Panel (BMP) (Collection Date & Time - 09/05/2024 03:45 PM)* Value Reference Range B UN 25 H 8-23 - mg/dL * C alcium 9.5 8.6-10.4 - mg/dL * C hloride 103 97-108 - mmol/L * C O2 27 22-32 - mmol/L * C reatinine 1.25 H 0.50-1.00 - mg/dL * G lucose 197 H 65-99 - mg/dL * P otassium 5.7 H 3.5-5.3 - mmol/L * S odium 143 135-145 - mmol/L * e GFR by Creatinine 45 L >59 - mL/min/1.73m2 * see 09/19/24 OV- labs re-orde red 3.?Localized edema? Refill Furosemide Tablet, 20 MG, 1 tablet, daily, 30 days, 30 Tablet, Refills 0.??4.?Acute cough?LAB: CBC Venipuncture (in house) (Collection Date & Time - 09/05/2024)* Value Reference Range w bc 6.1 3.5 - 10 * l ymph 18.2% 15 - 50 * m id 5.5% 2 - 15 * g ran 76.3% 35 - 80 * r bc 3.70 3.5 - 5.5 * h gb 11.6 11.5 - 16.5 * h ct 36.5 35 - 55 * m cv 98.6 75 - 100 * m ch 31.5 25 - 35 * m chc 31.9 31 - 38 * p latlet 301 100 - 400 * Lizett Bowman 09/05/2024 05:03: 23 PM EDT > * Procedure Codes: G 2211 Complex e/[place], [address] CBC WITH AUTO DIFF, 07782 VENIPUNCT, ROUTINE*, 1036F TOBACCO NON-USER, G8950 PREHTN/HTN BP DOC INDCD F/U DOC, G8752 MOST RECENT SYSTOLIC BP < 140MM HG, G8754 MOST RECENT DIASTOLIC BP < 90MM HG * Follow Up: 2 Weeks * Images: Billing Information: * Visit Code: 48125 Office Visit, Est Pt., Level 4. * Procedure Codes: G2211 Complex e/[place]. [address] CBC WITH AUTO DIFF. 76521 VENIPUNCT, ROUTINE*. 1036F TOBACCO NON-USER. G8950 PREHTN/HTN BP DOC INDCD F/U DOC. G8752 MOST RECENT SYSTOLIC BP < 140MM HG. G8754 MOST RECENT DIASTOLIC BP < 90MM HG. * Electronic signature of Mi Moore MD on 09/26/2024 at 12:51 PM EDT Sign off status: Pending * Provider: Mi Moore M.D. Date: 0 09/05/2024 Generated for Dai hannah/Kami/eTransmitting on: 0 09/26/2024 12:51 PM EDT History and Physical Notes * HPI (History of Present Illness) Category Sub-Category Detail Notes Category Not es Cardiology TRANS ARTERIAL MITRAL VALVE REPAIR June., [facility]. ER VISIT FOR BRONCHITIS AND UTI 08/18 (SEE REPORT), WITH REFILL CEFADROXIL 08/23 HPI Patient is here toda y for Pt is here today for a f/u from the ER. Pt sts that her uti is much better, but sts she does still have a cough. Pt sts she has been taking her allergy medication and drinking more water Examination Category Sub-Category Detail Notes Category Not es General Examination HEENT: unremarkable Heart: RSR Lungs: decreased breath shellie nds Abdomen: soft and nontender, no organomegaly or masses Extremities: 2++ leg edema General Appearance: NAD. In wheelchair. C-Spine brace in place Skin: normal, no rash Neurologic Exam: tremor of the hands and the head significantly improved Neck: supple, no lymphaden opathy Oral cavity: no lesions, mucosa m oist and WNL, no erythema Peripheral pulses: normal Chest: normal shape and exp ansion
--- OUTSIDE RECORDS SUMMARY | 2024-09-19 10:00 | XMS_ITS ---
Author Organization [facility] Address [facility]0 [facility] 36 [facility] [address] [place] [id number] Care Team Providers Care Animal Health Technician Name Role Phone Mi Moore Unavailable [phone] Allergies Allergen (clinical drug ingredient) Drug/Non Drug Allergy documented on EMR Reaction Allergy Type Onset Date Status ciprofloxacin Cipro hives Drug Allergy Act angel Results Component Value Reference Range Notes P-Comprehensive Metabolic Pa carlos (CMP) (Not yet reviewed by provider) Interpretation:gluc 199, bun 37, Cr 1.44, gfr 38, alk phos 132 Performing Lab: Notes/Report: Test performed by [facility] [address] [place] [address] , [address], [place] [address] Papo Seals MD, Staff Radiologist CLIA: [id number] Sodium 141 135-145 mmol/L Potassium 4.9 3.5-5.3 mmol/L Chloride 102 97-108 mmol/L CO2 23 20-32 mmol/L Glucose 199 65-99 mg/dL BUN 37 8-23 mg/dL Creatinine 1.44 0.50-1.00 mg/dL Calcium 9.4 8.6-10.4 mg/dL eGFR by Creatinine 38 >59 mL/min/1.73m2 Protein 6.7 6.0-8.3 g/dL Albumin 3.8 3.5-5.3 g/dL Alkaline Phosphatase 132 35-121 IU/L ALT (SGPT) 11 <5-47 IU/L AST (SGOT) 14 <5-40 IU/L Bilirubin, Total <0.2 <0.2-1.2 mg/dL A/G Ratio 1.3 1.1-2.5 P-Microalbumin/Creatinine, R andom Urine Sample (Not yet reviewed by provider) Interpretation:Normal Performing Lab: Notes/Report: Test performed by [facility] , [address], [place] [address] Papo Seals MD, Staff Radiologist CLIA: [id number] Albumin/Creatinine Ratio, Urine <8.19 0-30 ug/m g Microalbumin, Urine, Random <0.3 Creatinine, Urine 36.6 Glycohemoglobin A1c (in hous e) Reviewed date:09/19/2024 05:12:44 PM Interpretation: Performing Lab: Notes/Report: glycohemoglobin 7.1% 5 - 6.5 % REASON FOR VISIT 2 weeks Medications Medication SIG (Take, Route, Frequency, Duration) Notes Start Date End Date Status Clopidogrel Bisulfate 75 MG 1 tablet Orally Once a day; Duration: 30 days Active Primidone 50 MG TAKE 2 TABLETS BY MOUTH ONCE DAILY AT BEDTIME Orally At Bed Time; Duration: 30 days Active Cefadroxil 500 MG 1 capsule Orally every 12 hrs; Duration: 5 day(s) 08/23/2024 Not-Taking Furosemide 20 MG TAKE 1 TABLET BY MOUTH TWICE DAILY; Duration: 30 Active Natural Senna Laxative 8.6 MG 1 tablets at bedtime as needed Orally Once a day 10/29/2022 Not-Taking FeroSul 325 (65 Fe) MG TAKE 1 TAB(S) ORALLY 2 TIMES A DAY 90 DAYS Active Dulera 200-5 MCG/ACT 2 PUFF INHALED TWICE A DAY Active Bisoprolol Fumarate 5 MG 2 tablet Orally Once a day; Duration: 90 days Active Farxiga 10 MG 1 tablet Orally Once a day 04/21/2024 Active Gabapentin 100 MG 1 cap(s) orally 2 times a day; Duration: 30 days 08/03/2024 Active Levothyroxine Sodium 75 MCG 1 tablet in the morning on an empty stomach Orally Once a day Active Walker with Wheels as directed Hx of Falling Z91.81 05/23/2024 Active Spiriva Respimat 1.25 MCG/ACT 2 PUFFS ONCE DAILY Inhalation Once a day Active Magnesium 400 MG as directed Orally Active Vital Signs Blood pressure systolic 116 mm Hg 09/20/19 25 Blood pressure diastolic 70 mm Hg 025 Heart Rate 75 /min 09/19/2024 Height 61 in 09/19/2024 Weight 164 lbs 09/19/2024 BMI 30.98 kg/m2 09/19/2024 Encounters Encounter Location Date Provider Diagnosis [facility] [address] [facility] 36 [facility] [address] [place] [id number] 09/19/2024 Mi Moore Type 2 diabetes mellitus with other circulatory complications E11.59 ; Chronic kidney disease, stage 3a N18.31 and Localized edema R60.0 Assessments Encounter Date Diagnosis (ICD Code) Assessment Notes Treatment Notes Treatment Clinical Notes Section Notes 09/19/2024 Type 2 diabetes mellitus with other circulatory complications (ICD-10 - E11.59) 09/19/2024 Chronic kidney disease, stage 3a (ICD-10 - N18.31) 09/19/2024 Localized edema (ICD-10 - R60.0) Plan Of Treatment Pending Test Test Name Order Date P-Comprehensive Metabolic Panel (CMP) P-Microalbumin/Creatinine, Random Urine Sample 09/19/2024 Next Appt Details Follow Up: 4 Weeks, Reason: Provider Name:Mi Crawford er, 10/20/2024 02:45:00 PM, [address] [facility] 36 [facility], [address], [place], [id number], Progress Notes * BRYAN AUGUSTDOB:1950 (74 yo F)Acc No.[id number]:09/19/2024 Progress Notes Patient: Rebel NARVAEZ KEIRY Provider: Mi Moore M.D. :1950 A ge:74 Y S ex:Female Date:09/19/2024 Address:[address] [place], [place] [id number] Subjective: * Chief Complaints: * 1 . 2 weeks. * HPI: C ardiology: 74 year old female presents with c/o Leg Edema P t here for f/u on edema. Pt states she is Furosemide as directed. Pt states she seen Cardiology today and they said the echo 08/31/24 was good. See report. EF 55%. * ROS: D ERMATOLOGY: no R noé. n o H nadya. G ASTROENTEROLOGY: no N ausea. n o V omiting. n o D iarrhea.? U ROLOGY: no D ifficulty urinating. n o B lood in urine. * Medical History: A sthma, Angina, Hypertension, Hyperlipidemia, Type 2 diabetes, Hyperthyroid, Allergic rhinitis, Kidney disease, Rheumatic fever, CAD, stent 06/2021, [facility], 02/17-02/26 [facility] COVID 19 and pneumonia, 03/01-03/12/22 [facility] for GI bleed.. * Surgical History: S tent to Left Main Coronary artery, [facility] 07/10/2021, Right total hip arthroplasty , Left total hip arthroplasty , Cervical spine surgery, C3-C7 arthrodesis and fusion of C3-C6 12/18/23, Percutaneous coronary intervention; mitral valve repair (TMVR) 07/08/2024. * Hospitalization/Major Diagno stic Procedure: N STEMI, COPD, stent to Left Main cornary artery 06/2021, [facility] Septic shock; sepsis;elevated LFT;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, [facility] Hosp: MV disease with TMVR by Dr Mejia 07/08-07/09/2024. * Family History: F ather: diagnosed with Hypertension, Diabetes, Heart Disease. M other: diagnosed with Diabetes, Hypertension. P aternal Grand Mother: diagnosed with Hypertension, [...] MG Capsule as directed Orally , Taking Spiriva Respimat 1.25 MCG/ACT Aerosol [...] tablet Orally Once a day , Taking Furosemide 20 MG Tablet TAKE 1 TABLET BY MOUTH TWICE DAILY , Not- Taking Cefadroxil 500 MG Capsule 1 capsule Orally every 12 hrs , Not-Taking Natural Senna Laxative 8.6 MG Tablet 1 tablets at bedtime as needed Orally Once a day , Medication List reviewed and reconciled with the patient * Allergies: C ipro: hives. Objective: * Vitals: W t: 164, Temp: 97.6, BP: 116/70, HR: 75, Nurse: ashlee, Ht: 61, BMI:30.98. * Examination: G eneral Examination: General Appearance: [...] ++ leg edema. Assessment: * Assessment: 1. T ype 2 diabetes mellitus with other circulatory complications - E11.59 (Primary) 2 . C hronic kidney disease, stage 3a - N18.31 3 . L ocalized edema - R60.0 Plan: * Treatment: Value Reference Range A /G Ratio 1.3 1.1-2.5 - * A lbumin 3.8 3.5-5.3 - g/dL * A lkaline Phosphatase 132 H 35-121 - IU/L * A LT (SGPT) 11 <5-47 - IU/L * A ST (SGOT) 14 <5-40 - IU/L * B ilirubin, Total <0.2 <0.2-1.2 - mg/dL * B UN 37 H 8-23 - mg/dL * C alcium 9.4 8.6-10.4 - mg/dL * C hloride 102 97-108 - mmol/L * C O2 23 20-32 - mmol/L * C reatinine 1.44 H 0.50-1.00 - mg/dL * G lucose 199 H 65-99 - mg/dL * P otassium 4.9 3.5-5.3 - mmol/L * S odium 141 135-145 - mmol/L * P rotein 6.7 6.0-8.3 - g/dL * e GFR by Creatinine 38 L >59 - mL/min/1.73m2 ?LAB: P-Microalbumin/Creatinine, Random Urine Sample (Collection Date & Time - 09/19/2024 02:24 PM)?Normal* Value Reference Range A lbumin/Creatinine Ratio, Urine <8.19 0-30 - ug /mg * C reatinine, Urine 36.6 - mg/dL * M icroalbumin, Urine, Random <0.3 - mg/dL ?LAB: Glycohemoglobin A1c (in house) (Collection Date & Time - 09/19/2024)* Value Reference Range g lycohemoglobin 7.1% 5 - 6.5 % * Radha Sheehan 09/19/2024 02 :56:46 PM EDT > Provider reviewed results while patient in office. * Procedure Codes: 8 3036 GLYCATED HEMOGLOBIN TEST, Modifiers: QW * Follow Up: 4 Weeks * Images: Billing Information: * Visit Code: 45050 Office Visit, Est Pt., Level 3. * Procedure Codes: 32960 GLYCATED HEMOGLOBIN TEST. Modifiers: QW * Electronic signature of Mi Moore MD on 09/26/2024 at 12:51 PM EDT Sign off status: Pending * Provider: Mi Moore M.D. Date: 0 09/19/2024 Generated for Dai hannah/Fazac/eTransmitting on: 0 09/26/2024 12:51 PM EDT History and Physical Notes * HPI (History of Present Illness) Category Sub-Category Detail Notes Category Not es Cardiology Leg Edema Pt here for f/u on edema. Pt states she is Furosemide as directed. Pt states she seen Cardiology today and they said the echo 08/31/24 was good. See report. EF 55% Examination Category Sub-Category Detail Notes Category Not [...]
--- OUTSIDE RECORDS SUMMARY | 2024-09-19 20:00 | XMS_ITS | Clinical Summary ---
Author Organization Unknown Care Team Providers Care Cookie Padder Name Role Phone SIERRA LAGUERRE, REED Unavailable Unavailable KIMBERLYN PT, ANT Unavailable Unavailable CHARLES ELECTROPLATING LABORER, SHAE Unavailable Unavailpamela MONTEMAYOR FIELD NATURALIST, DARSHAN Unavailable Unavailable MARCO OT, SPENCER Unavailable Unavailable HUMBLE RN, NEAL Unavailable Unavailable Payers Payer Name Policy Type Policy Number Effective Date Expira tion Date [facility].HHAHRLY.DSNP.[id number].[id number] H [id number] Problems Condition Name Condition Details Condition Category [...] 04-14 00:00: 00 ATHSCL HEART DISEASE OF [place] CORONARY ARTERY W/O ANG PCTRS Active 04-14 [...] ON SUPPLEMENTAL OXYGEN Active 04-14 00:00: 00 CARE HOME (CURRENT) USE OF ANTITHROMBOT ICS/ANTIPLAT ELETS Active 04-14 00:00: 00 CARE HOME (CURRENT) USE OF ORAL HYPOGLYCEMIC DRUGS Active 04-14 00:00: 00 CARE HOME (CURRENT) USE OF INHALED STEROIDS Active 03-23 [...] 07-19 00:00: 00 05-09 23:59 :00 No [id number] BP 2 tablet DAILY 2 tablet DAILY (route: oral) Med Classific ation: Cardiovas cular Therapy Agents budesonide 0.5 mg/2 mL suspension for nebulizatio n 07-19 00:00: 00 05-09 23:59 :00 No [id number] SOA 1 mL EVERY 4 HOURS 1 mL EVERY 4 HOURS (route: inhalation ) Med Classific ation: Respirato ry Therapy Agents gabapentin 100 mg capsule 07-18 00:00: 00 05-09 23:59 :00 No [id number] NERVE PAIN 1 capsule 2 TIMES DAILY 1 capsule 2 TIMES DAILY (route: oral) Med Classific ation: Central Nervous System Agents Jardiance 10 mg tablet 07-18 00:00: 00 07-19 00:00 :00 No [id number] Per instruc tions Per instructio ns (route: oral) Med Classific ation: Endocrine pravastatin 20 mg tablet 07-18 00:00: 00 07-19 00:00 :00 No [id number] Per instruc tions Per instructio ns (route: oral) Med Classific ation: Cardiovas cular Therapy Agents amoxicillin 500 mg-potassiu m clavulanate 125 mg tablet 07-09 00:00: 00 07-09 23:59 :00 No [id number] INFECTION 1 tablet DAILY 1 tablet DAILY (route: oral) Med Classific ation: Anti-Infe ctive Agents amoxicillin 500 mg-potassiu m clavulanate 125 mg tablet 07-09 00:00: 00 07-09 23:59 :00 No [id number] INFECTION 1 tablet DAILY 1 tablet DAILY (route: oral) Med Classific ation: Anti-Infe ctive Agents prednisone 20 mg tablet 07-09 00:00: 00 07-19 00:00 :00 No [id number] Per instruc tions Per instructio ns (route: oral) Med Classific ation: Endocrine prednisone 20 mg tablet 07-09 00:00: 00 07-19 00:00 :00 No [id number] Per instruc tions Per instructio ns (route: oral) Med Classific ation: Endocrine Januvia 100 mg tablet 06-28 00:00: 00 07-19 00:00 :00 No [id number] Per instruc tions Per instructio ns (route: oral) Med Classific ation: Endocrine Januvia 100 mg tablet 06-28 00:00: 00 07-19 00:00 :00 No [id number] Per instruc tions Per instructio ns (route: oral) Med Classific ation: Endocrine montelukast 10 mg tablet 06-28 00:00: 00 07-19 00:00 :00 No [id number] Per instruc tions Per instructio ns (route: oral) Med Classific ation: Respirato ry Therapy Agents montelukast 10 mg tablet 06-28 00:00: 00 07-19 00:00 :00 No [id number] Per instruc tions Per instructio ns (route: oral) Med Classific ation: Respirato ry Therapy Agents bupropion HCl SR 150 mg tablet,12 hr sustained-r elease 07-19 00:00: 00 05-09 23:59 :00 No [id number] DEPRESSION 1 tablet 2 TIMES DAILY 1 tablet 2 TIMES DAILY (route: oral) Med Classific ation: Central Nervous System Agents clopidogrel 75 mg tablet 07-19 00:00: 00 05-09 23:59 :00 No [id number] BLOOD THINNER 1 tablet DAILY 1 tablet DAILY (route: oral) Med Classific ation: Hematolog ical Agents tramadol 37.5 mg-acetamin ophen 325 mg tablet 06-27 00:00: 00 07-19 00:00 :00 No [id number] Per instruc tions Per instructio ns (route: oral) Med Classific ation: Analgesic , Anti-infl ammatory or Antipyret ic albuterol sulfate HFA 90 mcg/actuati on aerosol inhaler 07-19 00:00: 00 05-09 23:59 :00 No [id number] SOA 2 puff EVERY 4 HOURS 2 puff EVERY 4 HOURS (route: inhalation ) Med Classific ation: Respirato ry Therapy Agents calcitonin (salmon) 200 unit/actuat ion nasal spray - 00:00: 00 05-09 23:59 :00 No [id number] SUPPLEMENT 1 spray DAILY 1 spray DAILY (route: nasal) Med Classific ation: Endocrine DILT-XR 180 mg capsule, extended release 07-19 00:00: 00 05-09 23:59 :00 No [id number] BP 1 capsule DAILY 1 capsule DAILY (route: oral) Med Classific ation: Cardiovas cular Therapy Agents DILT-XR 180 mg capsule, extended release 318 00:00: 00 07-19 00:00 :00 No [id number] Per instruc tions ONCE DAILY Per instructio ns ONCE DAILY (route: oral) Med Classific ation: Cardiovas cular Therapy Agents Dulera 200 mcg-5 mcg/actuati on HFA aerosol inhaler 18 00:00: 00 05-09 23:59 :00 No [id number] SOA 2 puff 2 TIMES DAILY 2 puff 2 TIMES DAILY (route: inhalation ) Med Classific ation: Respirato ry Therapy Agents ProAir HFA 90 mcg/actuati on aerosol inhaler 18 00:00: 00 07-19 00:00 :00 No [id number] Per instruc tions Per instructio ns (route: inhalation ) Med Classific ation: Respirato ry Therapy Agents ProAir HFA 90 mcg/actuati on aerosol inhaler 18 00:00: 00 07-19 00:00 :00 No [id number] Per instruc tions EVERY 4 TO 6 HOURS NEEDED Per instructio ns EVERY 4 TO 6 HOURS NEEDED (route: inhalation ) Med Classific ation: Respirato ry Therapy Agents Spiriva Respimat 2.5 mcg/actuati on solution for inhalation 16 00:00: 00 07-19 00:00 :00 No [id number] Per instruc tions Per instructio ns (route: inhalation ) Med Classific ation: Respirato ry Therapy Agents hydroxyzine HCl 25 mg tablet 3-08 00:00: 00 05-09 23:59 :00 No [id number] ITCHING 1 tablet TWICE DAILY 1 tablet TWICE DAILY (route: oral) Med Classific ation: Central Nervous System Agents hydroxyzine HCl 25 mg tablet 3-08 00:00: 00 07-19 00:00 :00 No [id number] Per instruc tions Per instructio ns (route: oral) Med Classific ation: Central Nervous System Agents bupropion HCl XL 150 mg 24 hr tablet, extended release 05-22 00:00: 00 07-09 23:59 :00 No [id number] DEPRESSION 1 tablet 2 TIMES DAILY 1 tablet 2 TIMES DAILY (route: oral) Med Classific ation: Central Nervous System Agents clopidogrel 75 mg tablet - 00:00: 00 07-19 23:59 :00 No [id number] BLOOD THINNER 1 tablet DAILY 1 tablet DAILY (route: oral) Med Classific ation: Hematolog ical Agents montelukast 10 mg tablet 05-22 00:00: 00 07-19 00:00 :00 No [id number] Per instruc tions Per instructio ns (route: oral) Med Classific ation: Respirato ry Therapy Agents tramadol 37.5 mg-acetamin ophen 325 mg tablet 05-21 00:00: 00 07-19 00:00 :00 No [id number] Per instruc tions Per instructio ns (route: oral) Med Classific ation: Analgesic , Anti-infl ammatory or Antipyret ic atorvastati n 20 mg tablet - 00:00: 00 07-09 23:59 :00 No [id number] CHOLESTEROL 1 tablet EVERY DAY 1 tablet EVERY DAY (route: oral) Med Classific ation: Cardiovas cular Therapy Agents atorvastati n 20 mg tablet 04-22 00:00: 00 07-09 23:59 :00 No [id number] CHOLESTEROL 1 tablet DAILY 1 tablet DAILY (route: oral) Med Classific ation: Cardiovas cular Therapy Agents Jardiance 10 mg tablet 07-19 00:00: 00 05-09 23:59 :00 No [id number] DM 1 tablet DAILY 1 tablet DAILY (route: oral) Med Classific ation: Endocrine cefdinir 300 mg capsule - 00:00: 00 04-14 00:00 :00 No [id number] Per instruc tions Per instructio ns (route: oral) Med Classific ation: Anti-Infe ctive Agents sulfamethox azole 800 mg-trimetho prim 160 mg tablet - 00:00: 00 04-22 23:59 :00 No [id number] ANTIBIOTIC 1 tablet 2 TIMES DAILY 1 tablet 2 TIMES DAILY (route: oral) Med Classific ation: Anti-Infe ctive Agents gabapentin 100 mg capsule 2023-03 00:00: 00 Yes [id number] PAIN 1 capsule 2 TIMES DAILY 1 capsule 2 TIMES DAILY (route: oral) Med Classific ation: Central Nervous System Agents Spiriva Respimat 1.25 mcg/actuati on solution for inhalation 2023-03 00:00: 00 Yes [id number] COPD Per instruc tions DAILY Per instructio ns DAILY (route: inhalation ) Med Classific ation: Respirato ry Therapy Agents sulfamethox azole 800 mg-trimetho prim 160 mg tablet 04-11 00:00: 00 04-14 00:00 :00 No [id number] Per instruc tions Per instructio ns (route: oral) Med Classific ation: Anti-Infe ctive Agents bisoprolol fumarate 5 mg tablet - 00:00: 00 Yes [id number] HEART 2 tablet DAILY 2 tablet DAILY (route: oral) Med Classific ation: Cardiovas cular Therapy Agents cefdinir 300 mg capsule 03-31 00:00: 00 04-14 00:00 :00 No [id number] Per instruc tions Per instructio ns (route: oral) Med Classific ation: Anti-Infe ctive Agents sulfamethox azole 800 mg-trimetho prim 160 mg tablet 03-31 00:00: 00 04-14 00:00 :00 No [id number] Per instruc tions Per instructio ns (route: oral) Med Classific ation: Anti-Infe ctive Agents gabapentin 100 mg capsule 2023-03 00:00: 00 04-14 00:00 :00 No [id number] Per instruc tions Per instructio ns (route: oral) Med Classific ation: Central Nervous System Agents Spiriva Respimat 1.25 mcg/actuati on solution for inhalation 2023-03 00:00: 00 04-14 00:00 :00 No [id number] Per instruc tions Per instructio ns (route: inhalation ) Med Classific ation: Respirato ry Therapy Agents albuterol sulfate HFA 90 mcg/actuati on aerosol inhaler 04-14 00:00: 00 Yes [id number] COPD 2 puff DAILY 2 puff DAILY (route: inhalation ) Med Classific ation: Respirato ry Therapy Agents clopidogrel 75 mg tablet 04-14 00:00: 00 Yes [id number] HEART 1 tablet DAILY 1 tablet DAILY (route: oral) Med Classific ation: Hematolog ical Agents ferrous sulfate 325 mg (65 mg iron) tablet 04-14 00:00: 00 Yes [id number] SUPPLEMENT 1 tablet 2 TIMES DAILY 1 tablet 2 TIMES DAILY (route: oral) Med Classific ation: Electroly te Balance-N utritiona l Products fluticasone propionate 50 mcg/actuati on nasal spray,suspe nsion 04-14 00:00: 00 Yes [id number] ALLERGIES 1 spray DAILY 1 spray DAILY (route: nasal) Med Classific ation: Respirato ry Therapy Agents furosemide 40 mg tablet 04-14 00:00: 00 Yes [id number] FLUID Per instruc tions DIRECTED Per instructio ns DIRECTED (route: oral) Med Classific ation: Cardiovas cular Therapy Agents levothyroxi ne 75 mcg tablet 04-14 00:00: 00 Yes [id number] THYROID 1 tablet DAILY 1 tablet DAILY (route: oral) Med Classific ation: Endocrine magnesium 400 mg (as magnesium oxide) tablet 04-14 00:00: 00 Yes [id number] SUPPLEMENT 1 tablet DAILY 1 tablet DAILY (route: oral) Med Classific ation: Electroly te Balance-N utritiona l Products oxygen gas for inhalation 04-14 00:00: 00 Yes [id number] OXYGEN 2 Liter NEEDED 2 Liter A S NEEDED (route: inhalation ) Med Classific ation: Medical Supplies and Durable Medical Equipment (DME) primidone 50 mg tablet 04-14 00:00: 00 Yes [id number] HEART 2 tablet BEDTIME 2 tablet BEDTIME (route: oral) Med Classific ation: Central Nervous System Agents sennosides 8.6 mg tablet 1-23 00:00: 00 08-01 23:59 :00 No [id number] CONSTIPATIO N 1 tablet DAILY 1 tablet DAILY (route: oral) Med Classific ation: Gastroint estinal Therapy Agents Farxiga 10 mg tablet 2-20 00:00: 00 Yes [id number] DIABETES HEART KIDNEYS 1 tablet DAILY 1 tablet DAILY (route: oral) Med Classific ation: Endocrine acetaminoph en 500 mg tablet - 00:00: 00 Yes [id number] ARTHRITIS PAIN 2 tablet 2 TIMES DAILY 2 tablet 2 TIMES DAILY (route: oral) Med Classific ation: Analgesic , Anti-infl ammatory or Antipyret ic Dulera 200 mcg-5 mcg/actuati on HFA aerosol inhaler 12-02 00:00: 00 Yes [id number] COPD 2 puff 2 TIMES DAILY 2 [...] Planned Date Details Comments Future Scheduled Test PT/FIELD NATURALIST TO PROVIDE GAIT TRAINING FOR IMPROVED MOBILITY AND /OR TO NORMALIZE GAIT PATTERN [code = PT/FIELD NATURALIST TO PROVIDE GAIT TRAINING FOR IMPROVED MOBILITY AND /OR TO NORMALIZE GAIT PATTERN] Future Scheduled Test THERAPEUTI C EXERCISES AND ESTABLISHING A HOME EXERCISE PROGRAM (PT/FIELD NATURALIST) [code = THERAPEUTIC EXERCISES AND ESTABLISHING A HOME EXERCISE PROGRAM (PT/FIELD NATURALIST)] Future Scheduled Test SIT TO/FRO M STAND TRANSFERS (PT/FIELD NATURALIST) [code = SIT TO/FROM STAND TRANSFERS (PT/FIELD NATURALIST)] Future Scheduled Test PT TO ASSE SS / FIELD NATURALIST TO MONITOR CARDIO/RESPIRATORY SYSTEM; AND NOTIFY THE PHYSICIAN AND/OR THE RN CLINICAL WEB OFFSET PRESS FEEDER FOR PHYSICIAN NOTIFICATION FOR EARLY SIGNS AND SYMPTOMS OF EXACERBATION OR DETERIORATION. [code = PT TO ASSESS / FIELD NATURALIST TO MONITOR CARDIO/RESPIRATORY SYSTEM; AND NOTIFY THE PHYSICIAN AND/OR THE RN CLINICAL WEB OFFSET PRESS FEEDER FOR PHYSICIAN NOTIFICATION FOR EARLY SIGNS AND SYMPTOMS OF EXACERBATION OR DETERIORATION.] Future Scheduled Test PT / FIELD NATURALIST T O MONITOR AND EDUCATE ON OXYGEN SATURATION DURING ADLS/IADLS, NOTIFY PHYSICIAN AND/OR THE RN CLINICAL WEB OFFSET PRESS FEEDER FOR PHYSICIAN NOTIFICATION AND IF O2 SATS BELOW PHYSICIAN ORDERED PARAMETERS AFTER 10 MIN OF REST [code = PT / FIELD NATURALIST TO MONITOR AND EDUCATE ON OXYGEN SATURATION DURING ADLS/IADLS, NOTIFY PHYSICIAN AND/OR THE RN CLINICAL WEB OFFSET PRESS FEEDER FOR PHYSICIAN NOTIFICATION AND IF O2 SATS BELOW PHYSICIAN ORDERED PARAMETERS AFTER 10 MIN OF REST] Future Scheduled Test PT / FIELD NATURALIST T O MONITOR FOR HYPO/HYPERGLYCEMIA AND CONDUCT ROUTINE FOOT INSPECTIONS. RECORD PATIENT REPORTED BLOOD SUGAR LEVELS AND NOTIFY PHYSICIAN AND/OR THE RN CLINICAL WEB OFFSET PRESS FEEDER FOR PHYSICIAN NOTIFICATION IF BLOOD SUGAR LEVELS ARE OUTSIDE ORDERED PARAMETERS. TEACH PATIENT/CAREGIVER ON DAILY FOOT INSPECTIONS [code = PT / FIELD NATURALIST TO MONITOR FOR HYPO/HYPERGLYCEMIA AND CONDUCT ROUTINE FOOT INSPECTIONS. RECORD PATIENT REPORTED BLOOD SUGAR LEVELS AND NOTIFY PHYSICIAN AND/OR THE RN CLINICAL WEB OFFSET PRESS FEEDER FOR PHYSICIAN NOTIFICATION IF BLOOD SUGAR LEVELS ARE OUTSIDE ORDERED PARAMETERS. TEACH PATIENT/CAREGIVER ON DAILY FOOT INSPECTIONS] Future Scheduled Test PT / FIELD NATURALIST M AY EDUCATE ON PAIN MANAGEMENT CLINICALLY INDICATED, INCLUDING NON-PHARMACOLOGICAL PAIN REDUCTION TECHNIQUES [code = PT / FIELD NATURALIST MAY EDUCATE ON PAIN MANAGEMENT CLINICALLY INDICATED, INCLUDING NON-PHARMACOLOGICAL PAIN REDUCTION TECHNIQUES] Future Scheduled Test AGENCY MAY PERFORM A RESUMPTION OF CARE VISIT FOLLOWING ANY HOSPITAL ADMISSION. PT TO EVALUATE, OBSERVE / ASSESS, AND MONITOR, FIELD NATURALIST TO OBSERVE AND MONITOR, PROVIDE SKILLED THERAPEUTIC INTERVENTION, ACTIVITY, EDUCATION, AND TRAINING TO ADDRESS; [code = AGENCY MAY PERFORM A RESUMPTION OF CARE VISIT FOLLOWING ANY HOSPITAL ADMISSION. PT TO EVALUATE, OBSERVE / ASSESS, AND MONITOR, FIELD NATURALIST TO OBSERVE AND MONITOR, PROVIDE SKILLED THERAPEUTIC INTERVENTION, ACTIVITY, EDUCATION, AND TRAINING TO ADDRESS;] Future Scheduled Test NEUROMUSCU LAR RE-EDUCATION / BALANCE / POSTURAL CONTROL (PT) [code = NEUROMUSCULAR RE-EDUCATION / BALANCE / POSTURAL CONTROL (PT)] Future Scheduled Test PT TO ASSE SS / FIELD NATURALIST TO MONITOR FOR AND REPORT EARLY SIGNS OF ANTICOAGULANT TOXICITY TO THE PHYSICIAN AND/OR THE RN CLINICAL WEB OFFSET PRESS FEEDER FOR PHYSICIAN NOTIFICATION AND TO PROVIDE PATIENT/CAREGIVER EDUCATION ON ANTICOAGULANT THERAPY [code = PT TO ASSESS / FIELD NATURALIST TO MONITOR FOR AND REPORT EARLY SIGNS OF ANTICOAGULANT TOXICITY TO THE PHYSICIAN AND/OR THE RN CLINICAL WEB OFFSET PRESS FEEDER FOR PHYSICIAN NOTIFICATION AND TO PROVIDE PATIENT/CAREGIVER EDUCATION ON ANTICOAGULANT THERAPY] Future Scheduled Test PT / FIELD NATURALIST T O EDUCATE ON COPD SELF-MANAGEMENT [code = PT / FIELD NATURALIST TO EDUCATE ON COPD SELF-MANAGEMENT] Future Scheduled Test PT TO ASSE SS / FIELD NATURALIST TO MONITOR FOR HEART FAILURE EXACERBATION AND RECORD PATIENT REPORTED WEIGHT, AND NOTIFY THE PHYSICIAN AND/OR THE RN CLINICAL WEB OFFSET PRESS FEEDER FOR PHYSICIAN NOTIFICATION OF HF EXACERBATION (2LB WEIGHT GAIN IN 1 DAY, 5LBS IN A WEEK OR 5 LBS OVER BASELINE; INCREASED SOB, EDEMA, NEEDING MORE PILLOWS AT NIGHT, CRACKLES IN BASIS OF THE LUNGS OR PMI SHIFT) [code = PT TO ASSESS / FIELD NATURALIST TO MONITOR FOR HEART FAILURE EXACERBATION AND RECORD PATIENT REPORTED WEIGHT, AND NOTIFY THE PHYSICIAN AND/OR THE RN CLINICAL WEB OFFSET PRESS FEEDER FOR PHYSICIAN NOTIFICATION OF HF EXACERBATION (2LB [...] End Date/Time Encounter Type Admission Type Attending [facility] Care Department Encounter ID Discharge Date Discharge Status Discharge Condition Discharge Reason Percent Goals Met 2024-08-12 00:00:00 2024-09-20 00:00:00 Outpatient RECERTIFIC [facility] [id number] 2024-09-20 00:00:00 DISCHARGE TO HOME OR SELF CARE INDEPENDEN T WITH USE OF ASSISTIVE DEVICE HH - GOALS MET 53.33
--- OUTSIDE RECORDS SUMMARY | 2024-09-26 12:51 | XMS_ITS | Clinical Summary ---
Author Organization [facility] Address [address] [place] [address] Phone Care Team Providers Care Oil Refinery Process Technician Name Role Phone Jc LAGUERRE, Mani Stark [facility] [ ] Conditions or Problems Problem Name Problem Code Onset Date Status Entry Date Provider Comment Standard Description Annotate Chronic kidney disease stage 3 829501376 (SNOMED CT) 08/20 Active 08/20 Grace funez REGISTERED PHARMACIST Chronic kidney disease stage 3 RIGHT WILIAN INFECTION T84.50xD (ICD-10-CM ) 06/24 Active 06/24 Katerin Douglas Infection and inflammatory reaction due to unspecified internal joint prosthesis, subsequent encounter TOBACCO ABUSE 50734769 (SNOMED CT) Active Mani Greene MD Tobacco dependence syndrome OBESITY 522887504 (SNOMED CT) Active Janine Z Obesity 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 (ICD-10-CM ) 06/24 Active 06/24 Lexi W Other hereditary and idiopathic neuropathies MRSA 174268775 (SNOMED CT) 06/24 Active 06/24 Lexi W [...] encounter METHICILLIN RESISTANT STAPHYLOCOC CUS AUREUS INFECTION 868812456 (SNOMED CT) 06/24 Correction 06/24 Anetra D Forrester Methicillin resistant Staphylococcus aureus infection E COLI INFECTION 89217919 (SNOMED CT) 06/24 Active 06/24 Anetra D Forrester Infection caused by Escherichia coli HIP JOINT REPLACEMENT Z96.649 (ICD-10-CM ) 06/24 Active 06/24 Anetra D Forrester Presence of unspecified artificial hip joint OTHER SPECIFIED IDIOPATHIC PERIPHERAL NEUROPATHY 69492945 (SNOMED CT) 06/24 Correction 06/24 Anetra D Forrester Idiopathic peripheral neuropathy DIABETES MELLITUS 72096904 (SNOMED CT) 06/24 Active 06/24 Anetra D Forrester Diabetes mellitus Medications Medication Instructions Start Date Stop Date Generic Name NDC Provider RANEXA 500 MG ORAL TABLET EXTENDED RELEASE 12 HOUR 1 tablet twice daily. 08/20 RANOLAZINE [id number] Grace funez APRN CLOPIDOGREL BISULFATE 75 MG TABS daily 08/20 CLOPIDOGREL BISULFATE 84110781290 Grace funez APRN HYDROCHLOROTHIAZIDE 25 MG TABS 05/08 HYDROCHLOROTHIAZIDE 07288966989 Grace funez APRN BACTRIM DS 800-160 MG TABS Take one by mouth daily 08/20 SULFAMETHOXAZOLE-TR IMETHOPRIM 19929458770 Grace funez APRN LISINOPRIL 5 MG TABS 05/08 LISINOPRIL 02311022292 Grace funez APRN METFORMIN HCL 500 MG TABS 3X per day 08/20 METFORMIN HCL 67380935384 Grace funez APRN BACTRIM DS 800-160 MG TABS take 1 po daily 11/21 SULFAMETHOXAZOLE-TR IMETHOPRIM 17690137243 Mani Greene MD BACTRIM DS 800-160 MG TABS Take one by mouth daily 06/21 SULFAMETHOXAZOLE-TR IMETHOPRIM 87810414622 Mani Reagan SOLN sliding scale 01/11 INSULIN REGULAR HUMAN SOLN 26236124838 Mani Greene MD PREDNISONE 10 MG TABS 01/11 PREDNISONE 01344233453 Mani Greene MD METFORMIN HCL 500 MG TABS 3X per day 08/20 METFORMIN HCL 25977269159 Mani Greene MD ZETIA 10 MG TABS 05/08 EZETIMIBE 87626744227 Mani Greene MD NAPROSYN TABS NAPROXEN TABS 62523022779 Janine Paul HUMULIN R SOLN sliding scale 09/20 INSULIN REGULAR HUMAN SOLN 55329276279 Janine Paul PREDNISONE 10 MG TABS 01/11 PREDNISONE 29051152104 Janine Paul GLIPIZIDE ER 10 MG [id number] 05/08 GLIPIZIDE 47340377724 Lexi W TRAMADOL-ACETAMINOPH EN 37.5-325 MG TABS 04/07 TRAMADOL-ACETAMINOP HEN 30416410281 Lexi W METOPROLOL SUCCINATE ER 50 MG [id number] 05/08 METOPROLOL SUCCINATE 54962377837 Lexi W HYDROCHLOROTHIAZIDE 25 MG TABS 05/08 HYDROCHLOROTHIAZIDE 46433839819 Lexi W FUROSEMIDE 20 MG TABS 05/08 FUROSEMIDE 69796957215 Lexi W FLUTICASONE PROPIONATE 50 MCG/ACT SUSP 11/05 FLUTICASONE PROPIONATE 19069102622 Lexi W CALCITONIN (SALMON) 200 UNIT/ACT SOLN 05/08 CALCITONIN (SALMON) 82768244184 Lexi W ZETIA 10 MG TABS 05/08 EZETIMIBE 25928854149 Lexi W SULFAMETHOXAZOLE-TRI METHOPRIM 800-160 MG TABS 05/21 SULFAMETHOXAZOLE-TR IMETHOPRIM 93586198070 Lexi W PROAIR HFA 108 (90 Base) MCG/ACT INHALATION AEROSOL SOLUTION 06/22 ALBUTEROL SULFATE 52765067462 Lexi W POTASSIUM CHLORIDE ER 10 MEQ CR-CAPS 05/22 POTASSIUM CHLORIDE 90301174979 Lexi W METFORMIN HCL 500 MG TABS 05/22 METFORMIN HCL 05391711101 Lexi W LISINOPRIL 5 MG TABS 05/08 LISINOPRIL 02377742046 Lexi W GABAPENTIN 100 MG CAPS 05/21 GABAPENTIN 16850878004 Lexi W BUPROPION HCL ER (XL) 150 MG [id number] 05/08 BUPROPION HCL 09698259340 Lexi W ATORVASTATIN CALCIUM 20 MG TABS 05/08 ATORVASTATIN CALCIUM 74401556465 Lexi W BACTRIM DS 800-160 MG TABS take 1 po daily 11/21 SULFAMETHOXAZOLE-TR IMETHOPRIM 90336523824 Mani Greene MD TRIAMCINOLONE ACETONIDE 0.1 % CREA apply as directed bid 11/21 TRIAMCINOLONE ACETONIDE 05184732329 Mani Greene MD Medications Administered No information [...] Date CPT-Cooral Continue oral antibiotics 20 04/02/05 CPT-20811 CMP [id number] CBC with Differential 2014 CPT-01898 C- reactive protein CPT-30299 Sedimentation Rate (ESR) 201 07/31/04 CPT-Cooral Continue oral antibiotics 20 03/01/23 CPT-12272 CMP CPT-22173 CBC with Differential CPT-61099 C- reactive protein CPT-Cooral Continue oral antibiotics [...]
--- OUTSIDE RECORDS SUMMARY | 2024-09-26 12:51 | XMS_ITS | Encounter Summary ---
Author Organization Healthcare Address [address] [place] [address] Care Team Providers Care Office Support Associate Name Role Phone Dante Hutchinson MD Primary Care Provider [phone] Encounter Details Date Type Department Care Team (Late st Contact Info) Description 03/03/2022 Lab Requisition [facility] [address] [place] [address] Yola Cruz MD [address] [facility] [address] [place] [address] Encounter for general adult medical [...] drink first t judy in the morning (EYE-SENIOR CONSUMER INSIGHTS CONSULTANT) to steady your nerves or to get [...] ORDERABLES Final Result [facility] [address] [place] [address] documented in this encounter Visit Diagnoses Diagnosis Encounter for general adult medical examination without abnormal findings documented in this encounter Additional Health Concerns Infection Onset Date Last Indicated Resolved Time COVID 19 (Confirmed) Comment:IPA has verified patient has a COVID-19 positive result. A chart review has been completed, EPI PUI has been completed and sent to appropriate Health Dept. IPAC Backend Developer: Portillo Arias Previous test documentation in media tab. See IPAC note - Leilanibong Jaquelin 02/16/2022 03/01/2022 03/05/2022 10:57 AM EST documented as of this encounter Care Teams Office Support Associate Relationship Specialty Start Date End Date Dante Hutchinson MD [address] [facility] [address] [place] [address] PCP - General 08/03/20 documented as of this encounter
--- OUTSIDE RECORDS SUMMARY | 2024-09-26 12:51 | XMS_ITS | Data Portability ---
Author Organization [facility] Address [address] [place] [address] Assessment Encounter Date Assessment Date Assessment LastModified by Organization Details LastModified Time 04/17/2023 04/17/2023 PULMONARY CONSULTATION HISTORICAL : This 72 year old female was admitted to the facility on 04/08/2023 after hospitalization at [facility] where she presented with AMS and increased [...] *Plan communicated to the [facility] care [email or web address] Not available 04/20/2023 10:02:18 04/24/2023 04/24/2023 PULMONARY [...] the facility on 04/08/2023 after hospitalization at [facility] where she presented with AMS and increased [...] the facility on 12/24/2023 after hospitalization at [facility] for cervical stenosis of the spinal canal. Patient underwent C3-C7 posterior lateral arthrodesis and fusion with C3-C6 laminectomy. Patient was sent her for subacute rehab. Pulmonary consult for history of acute respiratory failure with hypoxia, asthma, RANDY, COPD and pulmonary nodule. This 72 year old female was admitted to the facility on 04/08/2023 after hospitalization at [facility] where she presented with AMS and increased [...] after d/c *Patient follows with pulmonary in [place] 5. Anemia *Continue Ferrous Sulfate 1 BID [...] the facility on 12/24/2023 after hospitalization at [facility] for cervical stenosis of the spinal canal. Patient underwent C3-C7 posterior lateral arthrodesis and fusion with C3-C6 laminectomy. Patient was sent her for subacute rehab. Pulmonary consult for history of acute respiratory failure with hypoxia, asthma, RANDY, COPD and pulmonary nodule. This 72 year old female was admitted to the facility on 04/08/2023 after hospitalization at [facility] where she presented with AMS and increased [...] after d/c *Patient follows with pulmonary in [facility] 5. Anemia *Continue Ferrous Sulfate 1 [...] By Organization Details Last Modified Time 04/17/2023 [id number] CONSENT FOR ENROLLMENT IN CHRONIC CARE MANAGEMENT [...] though CCM services will not involve a nrpd-hd-idwi meeting with the provider. [email or web address] Not available 04/17/2023 15:23:42 01/01/2024 [id number] CONSENT FOR ENROLLMENT IN CHRONIC CARE MANAGEMENT [...] though CCM services will not involve a obbr-ok-jghc meeting with the provider. [email or web address] Not available 01/01/2024 12:02:49 Reason for Referral None Reported. Results Created Date Observation Date Name Description Value Unit Range Abnormal Flag Note LastModifiedBy Organization Detail LastModifiedTime Result Notes None recorded. 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 Medical Equipment None Reported. Allergies Allergen ID Allergen Name Allergen Category Reaction Reaction Severity Criticality Documentation Date Start Date Code Code System Note Provider Name and Address Organization Details Recorded Time 67189 alendrona te sodium medicatio n Not available Not available Not available 04/17/2023 82616 2 RxNorm sukumar gil null, [place] - [facility] 4 15:24:00 94249 atorvasta tin medicatio n Not available Not available Not available 04/17/2023 92897 RxNorm sukumar gil null, [place] - [facility] 4 15:24:06 48983 isosorbid e medicatio n Not available Not available Not available 04/17/2023 6057 RxNorm sukumar gil null, [place] - [facility] 4 15:24:42 94590 purified protein derivativ e of tuberculi n [...] SNOMED-CT Code Diagnosis ICD10 Code Diagnosis Note [id number] [place] [address] 04/17/2023 15:13:40 04/20/2023 12:31:14 Asthma-chronic obstructive pulmonary disease overlap syndrome 0112548258 4128390 J44.9 History of acute respiratory failure 6342643760 7249215 Z87.09 Nodule of lung 652239008 R91.1 Obstructiv e sleep apnea syndrome 92096897 G47.33 [id number] Marcia Moscoso NP [place] [address] 04/24/2023 13:43:31 04/28/2023 14:46:56 Asthma-chronic obstructive pulmonary disease overlap syndrome 2255695684 4664216 J44.9 History of acute respiratory failure 5439357166 9646723 Z87.09 Nodule of lung 464713323 R91.1 Obstructiv e sleep apnea syndrome 55967181 G47.33 [id number] Keenan Mcfarlane [place] [address] 01/01/2024 10:31:03 01/08/2024 08:31:25 Asthma-chronic obstructive pulmonary disease overlap syndrome 2888255490 4338454 J44.9 History of acute respiratory failure 9828323303 7715130 Z87.09 Nodule of lung 898313290 R91.1 Obstructiv e sleep apnea syndrome 82302014 G47.33 [id number] [facility] [address] [place] [address] 01/08/2024 08:35:35 01/08/2024 14:32:33 Asthma-chronic obstructive pulmonary disease overlap syndrome 0143669060 9734047 J44.9 History of acute respiratory failure 7206000306 2039817 Z87.09 Nodule of lung 496428740 R91.1 Obstructiv e sleep apnea syndrome 14527559 G47.33 Health Concerns Section Related Observation LastModified by Organization Detai ls LastModified Time None Recorded Concern Status LastModified by Organization Details LastModified Time None Recorded Advance Directives Directive None Recorded Payers Insurance Date Sequence Insurance Name Policy Number Policy Hurd Covered Member ID Hurd Member ID Guarantor Name 01/08/2024 1 [facility] (MEDICARE REPLACEMENT/A DVANTAGE - PPO) [id number] August Konrad [id number] August Konrad OBGyn Episode No OBEpisode recorded.
--- OUTSIDE RECORDS SUMMARY | 2024-09-26 12:51 | XMS_ITS | Clinical Summary ---
Author Organization Healthcare Address [address] [place] [address] Care Team Providers Care Brusher Machine Name Role Phone Dante Hutchinson MD Primary Care Provider [phone] Allergies Active Allergy Reactions Criticality Noted Date [...] wheezing or shortness of breath. 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 Standards of medical care in diabetes,2017. Diabetes Care.2017:40 (suppl 1):S1-S135. HbA1c assay performed by an ion-exchange chromatography method that is certified traceable to the DCCT. us Janet Kang MD LAB BLOOD ORDERABLES Final Res ult [facility] [address] [place] [address] from Last 3 Months or Most Recently Relevant to Health Maintenance Insurance [facility] MEDICARE [place] Advance Directives * Full Code (Latest Code Status on File) Date Activated Date Inactivated Comments 03/01/2022 4:41 PM 03/12/2022 5:02 PM Question Answer Comments Patient has decision-making capacity? Yes * Full Code Date Activated Date Inactivated Comments 02/14/2021 9:23 PM 02/21/2021 7:16 PM Question Answer Comments Patient has decision-making capacity? Yes Care Teams Brusher Machine Relationship Specialty Start Date End Date Dante Hutchinson MD [address] [facility] [address] [place] [id number] [facility] - General 08/03/20
--- OUTSIDE RECORDS SUMMARY | 2024-09-26 12:51 | XMS_ITS | Data Portability ---
Author Organization [facility] MONY Jiménez RIDGE CLOSED Address [address] [facility] [facility] [facility] [address] [place] [address] Care Team Providers Care Sheltered Workshop Executive Director Name Role Phone WALLY LANDON Referring Provider REED ESQUIVEL Primary Care Provider SHIRIN LUBIN Referring Provider [phone] Assessment Encounter Date Assessment Date Assessment LastModified by Organization Details LastModified Time 01/06/2024 01/06/2024 Trinity presents today status post C3-C6 Posterior Cervical Laminectomy and Fusion 12/17. No sutures or brenton to remove. Incision healing well with glue still present. No issues or concerns. All questions answered. Not available 01/06/2024 11:19:20 02/25/2024 02/25/2024 Trinity Adams is a pleasant 73-year-old status post C3-C6 [...] Not available 02/25/2024 11:02:23 06/15/2024 06/15/2024 Ms. Adams is status post C3-C6 posterior laminectomy and [...] Organization Details Last Modified Time Details Appointments CT SCAN 2024 09:40A M ct_scan Not available Not available Not available DR MERINO EMG 2024 11:00A M Neurology _tech Not available Not available Not available RECHECK r 2024 09:15A M JORDON DRAKE MD Not available Not available Not available Lab None recorded. Referral None recorded. Procedures None recorded. Surgeries None recorded. Imaging None recorded. Medication Orders Bactrim DS 800 mg-160 mg tablet 2023 024 [facility], [address] [place], [address], 02/25/2024 12:09:37 nystatin 100,000 unit/gram topical cream 2023 024 [facility], [address] [place], [address], 02/01/2024 14:04:08 Patient TargetsNo targets recorded. Patient InstructionsNo instructions recorded. Reason for Referral None Reported. Results Created Date Observation Date Name Description Value Unit Range Abnormal Flag Note LastModifiedBy Organization Detail LastModifiedTime 02/01/20 24 02/01/2024 XR, cervi ann marie spine , 2 or 3 view [facility] [address] [place] [address] Frederick shelley Name: TRINITY Kemp JOSETTE Tez shelley : [address] Orderi ng Provid er: JORDON Zhang EXAM DATE: 11/11/ 2024 EXAM: XR CERVIC AL AP/LAT CLINIC AL INFORM ATION: Neck pain IMAGES PROVID ED: AP, latera l, open mouth and submen viet views of the cervic al spine COMPAR EMETERIO: None. FINDIN GS: Curvat ure, alignm ent, verteb ral body height s and disc spaces are normal . No radiog raphic eviden ce of injury is seen. Previo us director of services ior fusion C3-C7. No hardwa re loosen ing or compli cation is indica lizet. There is slight anteri or listhe sis of C3 on C4 and C4-C5. IMPRES HAMZAH: Grossl y uncomp licate d appear ing director of services ior fusion C3-7 Interp reted By: Reed Guzman MD Electr onical ly Signed By: Reed Guzman MD on 2023 12:[address] Radiology [facility] [address] [place] [address], [address], 02/17/2024 07:38:45 07/19/19 25 07/18/2024 XR, cervi ann marie spine , 2 or 3 view No observ ation record ed. [address] (X-Ray) [address] [place] [address] [address], [place], [address], 08/02/2024 10:55:18 08/25/19 25 08/24/2024 MRI, cervi ann marie spine , w/o contr ast No observ ation record ed. [email or web address] Not Available 2024 14:16:19 09/21/19 25 08/24/2024 MRI, cervi ann marie spine , w/o contr ast No observ ation record ed. [email or web address] Not Available 2024 14:16:20 Result Notes Documentation Provider Name and Address Organization Details Recorded Time Xr, Cervical Spine, 2 Or 3 View : [place] [address] [place] [address] Patient Name: TRINITY ADAMS Patient : 1950 Patient Ordering Provider: JORDON DRAKE EXAM DATE: 02/01/2024 EXAM: XR CERVICAL AP/LAT CLINICAL INFORMATION: Neck pain IMAGES PROVIDED: AP, lateral, open mouth and submental views of the cervical spine COMPARISON: None. FINDINGS: Curvature, alignment, vertebral body heights and disc spaces are normal. No radiographic evidence of injury is seen. Previous posterior fusion C3-C7. No hardware loosening or complication is indicated. There is slight anterior listhesis of C3 on C4 and C4-C5. IMPRESSION: Grossly uncomplicated appearing posterior fusion C3-7 Interpreted By: Reed Guzman MD Ruddy Cortés [facility] 02/17/2024 07:38:45 Procedures Surgical History Date Name Laterality Status Provider Name and Address Organization Details Recorded Time placement of stent in pulmonary artery completed [facility] 07/08/2023 13:21:11 Cholecystectomy completed [facility] 07/08/2023 13:21:18 repair of hip completed [facility] 07/08/2023 13:21:30 hysterectomy completed [facility] 07/08/2023 13:21:36 Removal of tonsils completed [facility] 07/08/2023 13:21:46 ligation of fallopian tube completed [facility] 07/08/2023 13:21:56 Imaging Results None recorded. Procedure Notes None recorded. Medical Equipment None Reported. Allergies Allergen ID Allergen Name Allergen Category Reaction Reaction Severity Criticality Documentation Date Start Date Code Code System Note Provider Name and Address Organization Details Recorded Time 198616 Cipro medicatio n Not available Not available Not available 07/08/2023 24465 3 [facility] 4 13:18:49 372819 isosorbid e medicatio n Not available Not available Not available 07/08/2023 6057 RxNorm Herndon [facility] 4 13:19:00 613299 Fosamax medicatio n Not available Not available Not available 07/08/2023 52296 5 RxNorm Herndon [facility] 4 13:19:09 892775 Lipitor medicatio n Not available Not available Not available 07/08/2023 64676 5 RxNorm OVER 40MG STATE D PT Subha Fischer [facility] 4 13:19:27 Medications Name Sig Start [...] Details Last Updated DateTime 06/15/2024 154.94 cm [facility] 06/15/2024 11:19:50 Date Recorded Body height Provider Name an d Address Organization Details Last Updated DateTime 02/01/2024 154.94 cm [facility] 02/01/2024 13:46:15 Social History None recorded. [...] Sleep Apnea Y Hyperthyroidism Y Heart Attack ([place]) Y Deep Vein Thrombosis Y Hypertension Y Kidney Disease Y Gynecological HistoryNo gynecological history recorded. Obstetrics History GPAL:G 0 P 0 0 0 0 Past Encounters Encounter ID Performer Location Encounter Start Date Encounter Closed Date Diagnosis/Indication Diagnosis SNOMED-CT Code Diagnosis ICD10 Code Diagnosis Note [id number] OSIEL ALFARO APRN [facility] [address] [place] [address] 07/08/2023 12:44:49 07/09/2023 04:54:57 Cervical spondylosis 756369389 M47.812 Cervical radiculopathy 14905887 M54.12 Spondylolisthesis 292935 003 M43.10 [id number] CORA HOGUE PA-C [facility] [address] [place] [address] 10/07/2023 14:25:35 10/09/2023 15:35:11 Spinal stenosis in cervical region 30444337 M48.02 [id number] JORDON DRAKE MD SURGERY SCHEDULE [address] [place] [address] 12/21/2023 09:25:57 12/22/2023 14:45:05 [id number] JORDON DRAEK MD [facility] [address] [place] [address] 01/06/2024 10:50:06 01/16/2024 04:28:18 [id number] JORDON DRAKE MD [facility] [address] [place] [address] 02/01/2024 13:13:18 02/02/2024 05:07:59 Postoperative care 854169978 Z48.89 Patient is doing well. Will get [...] lesion. I have answered all her questions. [id number] AUBREY CHRISTIANSON PA-C [facility] [address] [place] [address] 02/25/2024 10:30:08 03/01/2024 10:39:59 History of cervical spine fusion 2845665606 101 Z98.1 [id number] OCRA HOGUE PA-C [facility] [address] [place] [address] 06/15/2024 10:55:37 06/16/2024 08:36:21 Cervical spondylosis 756834359 M47.812 Health Concerns Section Related Observation LastModified by Organization Detai ls LastModified Time None Recorded Concern Status LastModified by Organization Details LastModified Time None Recorded Advance Directives Directive None Recorded Payers Insurance Date Sequence Insurance Name Policy Number Policy Hurd Covered Member ID Hurd Member ID Guarantor Name 06/12/2024 2 MEDICAID-[facility] CHOICES - FFS/TRADITION AL August Konrad [id number] August Konrad 06/12/2024 1 [facility] (MEDICARE REPLACEMENT/A DVANTAGE - PPO) [id number] August Konrad [id number] August Konrad 07/28/2023 2 [place] August Konrad [id number] August Konrad Notes Date Note Type Note [...] intact hardware good alignment JORDON DRAKE MD [facility] [place], [address], [facility] 02/01/2024 14:02:57 02/25/2024 text/html Trinity Adams is a pleasant 73-year-old status post C3-C6 [...] is what is draining. AUBREY CHRISTIANSON PA-C [address] [place], [address], [facility] 02/25/2024 13:36:23 06/15/2024 text/html Ms. Meza is [...] x-rays before the visit. CORA HOGUE PA-C [address] [place], [address], [facility] 06/15/2024 11:30:50 OBGyn Episode No OBEpisode recorded.
--- OUTSIDE RECORDS SUMMARY | 2024-09-26 12:52 | XMS_ITS | Patient Health Record ---
Author Organization [facility] Address [address] [facility] [address] [facility] [address] [place] [id number] Care Team Providers Care Cigarette Roller Name Role Phone Oscar Mi Tray Unavailable [phone] Tomasz Haney Unavailable [phone] AlmanzarNubia Unavailable [phone] Allergies Allergen (clinical drug ingredient) Drug/Non Drug [...] Interpretation: Performing Lab: Notes/Report: Test performed by [facility] [address] [place] [address] , [address], [place] [address] Papo Seals MD, Pharmacy Account Director CLIA: [id number] Sodium 143 135-145 mmol/L Potassium 5.7 3.5-5.3 mmol/L Chloride 103 97-108 mmol/L CO2 27 22-32 mmol/L Glucose 197 65-99 mg/dL BUN 25 8-23 mg/dL Creatinine 1.25 0.50-1.00 mg/dL Calcium 9.5 8.6-10.4 mg/dL eGFR by Creatinine 45 >59 mL/min/1.73m2 P-Comprehensive Metabolic Pa carlos (CMP) (Not yet reviewed by provider) Interpretation:gluc 199, bun 37, Cr 1.44, gfr 38, alk phos 132 Performing Lab: Notes/Report: Test performed by [facility] [address] [place] [address] , [address], [place] [address] Papo Seals MD, Pharmacy Account Director CLIA: [id number] Sodium 141 135-145 mmol/L Potassium 4.9 3.5-5.3 [...] Interpretation:Normal Performing Lab: Notes/Report: Test performed by [facility] [address] [place] [address] , [address], [place] [address] Papo Seals MD, Pharmacy Account Director CLIA: [id number] Albumin/Creatinine Ratio, Urine <8.19 0-30 ug/mg Microalbumin, Urine, Random <0.3 Creatinine, Urine 36.6 Glycohemoglobin A1c (in hous e) Reviewed date:09/19/2024 05:12:44 PM Interpretation: Performing Lab: Notes/Report: glycohemoglobin 7.1% 5 - 6.5 % CBC Venipuncture (in house) Reviewed date:11/10/2023 10:55:29 [...] Cr 1.28, gfr 44 Performing Lab: Notes/Report: Test performed by [facility] [address] [place] [address] , [address], [place] [address] Papo Seals MD, Pharmacy Account Director CLIA: [id number] Sodium 141 135-145 mmol/L Potassium 5.0 3.5-5.3 [...] Interpretation:Normal Performing Lab: Notes/Report: Test performed by [facility] [address] [place] [address] , [address], [place] [address] Papo Seals MD, Pharmacy Account Director CLIA: [id number] TSH 2.03 0.43-5.25 mU/L Glycohemoglobin A1c (in hous e) Reviewed date:01/15/2024 08:57:57 AM Interpretation: Performing Lab: Notes/Report: glycohemoglobin 6.9% 5 - 6.5 % CBC Venipuncture (in house) Reviewed date:04/12/2024 09:45:00 [...] 400 P-Comprehensive Metabolic Pa carlos (CMP) Reviewed date:04/12/2024 09:45:00 AM Interpretation:gluc 103, bun 38, Cr 1.42, gfr 39 Performing Lab: Notes/Report: Test performed by [facility], [address] , [address], [place] [address] Papo Seals MD, Pharmacy Account Director CLIA: [id number] Sodium 140 135-145 mmol/L Potassium 4.9 3.5-5.3 [...] <0.2 <0.2-1.2 mg/dL A/G Ratio 1.4 1.1-2.5 H-TSH Reviewed date:03/30/2024 09:18:50 AM Interpretation: Performing Lab: Notes/Report: TSH 0.15 0.465-4.68 uIU/mL H-Glycohemoglobin A1C Reviewed date:03/30/2024 09:18:50 AM Interpretation: Performing Lab: Notes/Report: HGBA1C 6.3 4.0-6.0 % < 6% Non-Diabetic Level < 7% Controlled Diabetic Level > 8% Poorly Controlled Diabetic Level H-Sputum Culture with Gram Parish hercules Reviewed date:04/01/2024 08:44:07 AM Interpretation: Performing Lab: Notes/Report: Comment: Induce w/3ml NS neb tx if necessary GS Gram Stain: GS 10 - 25 White Blood Cells / LPF GS <10 Epithelial Cells / LPF GS Few Gram Positive Cocci GS Rare Gram Negative Rods CUSU ORGANISM 1: Achromobacter species RX PEPE: R- Resistant S- Susceptible I- Intermediate * [facility]PE: R- Resistant S- Susceptible I- Intermediate * [facility]: R- Resistant S- Susceptible I- Intermediate * Not on [facility] RX PEPE: R- Resistant S- Susceptible I- Intermediate * Not on [facility] Achromobacter specie s: REACTION RX PEPE: R- Resistant S- Susceptible I- Intermediate * Not on [facility] Amikacin 16 R RX PEPE: R- Resistant S- Susceptible I- Intermediate * Not on [facility] Aztreonam >16 R RX PEPE: R- Resistant S- Susceptible I- Intermediate * Not on [facility] Cefepime 8 S RX PEEP: R- Resistant S- Susceptible I- Intermediate * Not on [facility] Ceftazidime 8 S RX PEPE: R- Resistant S- Susceptible I- Intermediate * Not on [facility] Ceftriaxone 32 R RX PEPE: R- Resistant S- Susceptible I- Intermediate * Not on [facility] Ciprofloxacin 2 I RX PEPE: R- Resistant S- Susceptible I- Intermediate * Not on [facility] Gentamicin 4 R RX PEPE: R- Resistant S- Susceptible I- Intermediate * Not on [facility] Levofloxacin <=0.5 S RX PEPE: R- Resistant S- Susceptible I- Intermediate * Not on [facility] Tobramycin 4 R RX PEPE: R- Resistant S- Susceptible I- Intermediate * Not on [facility] Piperacillin/Tazobac redding <=2/4 S RX PEPE: R- Resistant S- Susceptible I- Intermediate * Not on [facility] RX PEPE: R- Resistant S- Susceptible I- Intermediate * Not on [facility] Formulary Reason For Referral Reason patient requests hel p with ADL's; just had mitral valve replacement at [facility] Diagnosis 1 Debility (R53.81) Referral Organization [facility] Referring Provider First Name Nubia Referring Provider Last Name Jenelle Referring Provider Speciality Family Myriam arana Referred Provider Specialty Home Health Agency General Notes Lainey Carey 2024 02:20:38 PM > faxed to [facility] Referral Priority Routine Medications Medication SIG (Take, Route, Frequency, Duration) Notes Start Date End Date Status FeroSul 325 (65 Fe) MG 1 tablet Orally twice a day; Duration: 90 days Active Furosemide 20 MG 1 tablet Orally twice a day; Duration: 30 days Active Clopidogrel Bisulfate 75 MG 1 tablet Orally Once a day; Duration: 30 days Active Primidone 50 MG TAKE 2 TABLETS BY MOUTH ONCE DAILY AT BEDTIME Orally At Bed Time; Duration: 30 days Active Gabapentin 100 MG 1 cap(s) orally 2 times a day; Duration: 30 days 09/20/2024 Active Levothyroxine Sodium 75 MCG 1 tablet in the morning on an empty stomach Orally Once a day Active Cefadroxil 500 MG 1 capsule Orally every 12 hrs; Duration: 5 day(s) 08/23/2024 Not-Taking Walker with Wheels as directed Hx of Falling Z91.81 05/23/2024 Active Spiriva Respimat 1.25 MCG/ACT 2 PUFFS ONCE DAILY Inhalation Once a day Active Magnesium 400 MG as directed Orally Active Natural Senna Laxative 8.6 MG 1 tablets at bedtime as needed Orally Once a day 10/29/2022 Not-Taking Dulera 200-5 MCG/ACT 2 PUFF INHALED TWICE A DAY Active Bisoprolol Fumarate 5 MG 2 tablet Orally Once a day; Duration: 90 days Active Farxiga 10 MG 1 tablet Orally Once a day 04/21/2024 Active Immunizations Vaccine Route Administration Date Status Comme nts xFluzone High Dose-private (65yr&older) Unknown 12/28/2017 Administered xFluzone (6mos and older)-trivalent Unknown 01/07/2007 Administered xFlu shot- 6months-36 months of mck-ZMVG-ZHFL-trivalent Unknown 01/08/2016 Administered Tetanus Tdap-Adacel (over 7yrs) Unknown 02/06/2023 Administered Prevnar (PCV13) Unknown 01/12/2014 Administered PNEUMOVAX 23 VACCINE IM Intramuscular 01/15/2022 Administe red Fluzone High Dose (65yr and older) IM Intramuscular 11/20/2021 Administered Fluzone High Dose (65yr and older) IM Intramuscular 12/11/2022 Administered COVID 19 Moderna Unknown 03/11/2021 Administered COVID 19 Nikolai Unknown 06/20/2020 Administered Problems Problem Type SNOMED Code ICD Code Onset Dates Problem Status W/U Status Risk Notes Problem Essential hypertension (49688249) Essential (primary) hypertension (I10) Active confirmed Problem Peripheral circulatory disorder associated with diabetes mellitus (630413147) Type 2 diabetes mellitus with other circulatory complications (E11.59) Active confirmed Problem Hypothyroidism (11562475) Hypothyroidism (acquired) (E03.9) Active confirmed Problem Anemia (134673292) Anemia (D64.9) Active confir med Problem Tremor (28922677) Tremor (R25.1) Active confirm ed Problem Long-term current use of anticoagulant (447296533) prison current use of anticoagulant (Z79.01) Active confirmed Problem Environmental allergy (429122271) Environmental allergies (Z91.048) Active confirmed Problem Asthma (479172700) Asthma (J45.909) Active conf irmed Problem BMI 30+ - obesity (928221936) BMI 32.0-32.9,adult (Z68.32) Active confirmed Problem Hypomagnesemia (028994778) Hypomagnesemia (E83.42) Active confirmed Problem Chronic respiratory failure (91331561) Chronic respiratory failure with hypoxia (J96.11) Active confirmed Problem Constipation (95062504) Constipation, unspecified constipation type (K59.00) Active confirmed Problem Cervical disc disease (803546542) Cervical disc disease (M50.90) Active confirmed Problem COPD - Chronic obstructive pulmonary disease (98145962) Chronic obstructive pulmonary disease, unspecified COPD type (J44.9) Active confirmed Problem Iron deficiency anemia due to chronic blood loss (370965576) Iron deficiency anemia due to chronic blood loss (D50.0) Active confirmed Problem Leukocytosis (053465386) Leukocytosis, unspecified type (D72.829) Active confirmed Problem Atrial fibrillation (88313617) PAF (paroxysmal atrial fibrillation) (I48.0) Active confirmed Problem Sleep apnea (18199727) Sleep apnea, unspecified type (G47.30) Active confirmed Problem Hyperlipidaemia (38751792) Hyperlipidemia, unspecified hyperlipidemia type (E78.5) Active confirmed Problem Pneumonia (561144945) Pneumonia of right middle lobe due to infectious organism (J18.9) Active confirmed Problem Atrial fibrillation (85746841) Atrial fibrillation with RVR (I48.91) Active confirmed Problem Mitral valve disorder (87666687) Mitral valve insufficiency, unspecified etiology (I34.0) Active confirmed Problem Chronic pain syndrome (833654168) Chronic pain disorder (G89.4) Active confirmed Problem Atherosclerotic heart disease of three affiliated coronary artery without angina pectoris (915016202601614) 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, unspecified whether three affiliated or transplanted heart (I25.10) Active confirmed Problem Heart valve disease (379654) Valvular disease (I38) Active confirmed Problem Asthma without status asthmaticus (05951324) Asthma, unspecified asthma severity, unspecified whether complicated, unspecified whether persistent (J45.909) Active confirmed Problem Type II diabetes mellitus without complication (903033264) Type 2 diabetes mellitus without complication, 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 (E11.9) Active confirmed Problem Heart failure (00092946) Congestive heart failure, unspecified HF chronicity, unspecified heart failure type (I50.9) Active confirmed Problem Diabetic peripheral neuropathy associated with type 2 diabetes mellitus (1136347440549) Type 2 diabetes mellitus with diabetic neuropathy, 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 (E11.40) Active confirmed Problem Status post angioplasty with stent (Z95.820) Active confirmed Problem Chronic kidney disease stage 3A (disorder) (378340287) Chronic kidney disease, stage 3a (N18.31) Active confirmed Problem Acute hemorrhagic gastritis (2929878) Gastrointestinal hemorrhage associated with acute gastritis (K29.01) Active confirmed Problem Laceration of ri ght lower extremity excluding thigh, subsequent encounter (S81.811D) Active confirmed Problem Anemia (865295196) Acute anemia (D64.9) Active confirmed Problem Cervical dystonia (64877347) Cervical dystonia (G24.3) Active confirmed Problem Chronic kidney disease stage 3B (disorder) (413286268) Chronic renal failure, stage 3b (N18.32) Active confirmed Vital Signs Heart Rate 75 /min 09/19/2024 Blood pressure diastolic 70 mm Hg 09/19/2024 Height 61 in 09/19/2024 Blood pressure systolic 116 mm Hg 09/19/2024 Weight 164 lbs 09/19/2024 BMI 30.98 kg/m2 09/19/2024 Encounters Encounter Location Date [facility] [address] [place] [id number] 10/01/2023 Mi Moore Essential (primary) hypertension I10 ; 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, unspecified whether three affiliated or transplanted heart I25.10 ; Type 2 diabetes mellitus with other circulatory complications E11.59 ; Hypothyroidism (acquired) E03.9 ; Tremor R25.1 ; prison current use of anticoagulant Z79.01 ; Cervical dystonia G24.3 and Chronic obstructive pulmonary disease, unspecified COPD type J44.9 [facility] [address] [place] [id number] 11/09/2023 Mi Moore Cervical spinal sten osis M48.02 ; Cervical disc disease M50.90 ; Type 2 diabetes mellitus with other circulatory complications E11.59 ; Status post angioplasty with stent Z95.820 ; Tremor R25.1 ; long term care pharmacist current use of anticoagulant Z79.01 and Hypothyroidism (acquired) E03.9 [facility] [address] [place] [id number] 01/14/2024 Mi Moore H/O cervical spine surgery Z98.890 ; Essential (primary) hypertension I10 ; 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, unspecified whether three affiliated or transplanted heart I25.10 ; Status post angioplasty with stent Z95.820 ; Tremor R25.1 ; Type 2 diabetes mellitus without complication, 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 E11.9 and Chronic respiratory failure with hypoxia J96.11 [facility] [address] [place] [id number] 02/26/2024 Mi Moore Sebaceous cyst L72.3 ; Chronic obstructive pulmonary disease, unspecified COPD type J44.9 and Tremor R25.1 [facility] [address] [place] [id number] 04/11/2024 Mi Moore Pneumonia of right middle lobe due to infectious organism J18.9 ; Essential (primary) hypertension I10 and Chronic renal failure, stage 3b N18.32 [facility] [address] [facility] [address] [place] [id number] 05/16/2024 Mi Moore Tremor R25.1 and Cervical dystonia G24.3 [facility] [address] [place] [id number] 06/13/2024 Mi Moore Mitral valve insufficiency, unspecified etiology I34.0 and Type 2 diabetes mellitus with diabetic neuropathy, unspecified whether group home insulin use E11.40 [facility] [address] [place], [place] [id number] 07/18/2024 Nubia Almanzar Type 2 diabetes ara [...] type E78.5 and Chronic pain disorder G89.4 [facility] [address] [facility] [address] [place], [place] [id number] 09/05/2024 Mi Moore S/P mitral valve rep air Z98.890 ; Localized edema R60.0 ; Valvular disease I38 ; Acute cough R05.1 ; Anemia D64.9 ; Hx: UTI (urinary tract infection) Z87.440 ; Chronic obstructive pulmonary disease, unspecified COPD type J44.9 and Type 2 diabetes mellitus with other circulatory complications E11.59 [facility] [address] [place] [id number] 09/19/2024 Mi Moore Type 2 diabetes ara itus with other circulatory complications E11.59 ; Chronic kidney disease, stage 3a N18.31 and Localized edema R60.0 [facility] [address] [place], [place] [id number] 11/12/2023 J Tray Moore [facility] [address] [place], [place] [id number] 12/01/2023 J Tray Moore [facility] [address] [place], [place] [id number] 01/13/2024 J Tray Moore [facility] [address] [place], [place] [id number] 02/15/2024 J Tray Moore Chronic pain disorde r G89.4 [facility] [address] [place], [place] [id number] 03/21/2024 J Tray Moore [facility] [address] [place], [place] [id number] 04/01/2024 J Tray Moore [facility] [address] [place], [place] [id number] 04/12/2024 J Tray Moore [facility] [address] [place], [place] [id number] 04/28/2024 J Tray Moore Tremor R25.1 [facility] [address] [place], [place] [id number] 05/23/2024 J Tray Moore [facility] [address] [place], [place] [id number] 05/26/2024 J Tray Moore Chronic pain disorde r G89.4 [facility] [address] [place], [place] [id number] 07/11/2024 J Tray Moore [facility] [address] [place], [place] [id number] 07/18/2024 Nubia Almanzar [facility] [address] [place], [place] [id number] 08/03/2024 Tomasz Bapchule Cervical disc diseas e M50.90 and Tremor R25.1 [facility] [address] [place], [place] [id number] 08/18/2024 Mi Tray Oscar [facility] [address] [place], [place] [id number] 09/06/2024 Mi Moore [facility] [address] [facility] [address] [place] [id number] 09/20/2024 Mi Feliz Oscar Anemia D64.9 and Cervical disc disease M50.90 Assessments Encounter Date Diagnosis (ICD Code) Assessment Notes Treatment Notes Treatment Clinical Notes Section Notes 10/01/2023 Essential (primary) hypertension (ICD-10 - I10) 10/01/2023 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 RTO in 2 months. Will be post valve replacement 01/14/2024 H/O cervical spine surgery (ICD-10 - Z98.890) SHE NEEDS A HEADREST ON HER MOBILE CHAIR DUE TO THE NECK PATHOLOGY AN SURGERY 02/15/2024 Chronic pain disorder (ICD-10 - G89.4) 08/03/2024 Cervical disc disease (ICD-10 - M50.90) 09/05/2024 Localized edema (ICD-10 - R60.0) 09/05/2024 Valvular disease (ICD-10 - I38) 09/05/2024 S/P mitral valve repair (ICD-10 - Z98.890) 09/19/2024 Type 2 diabetes mellitus with other circulatory complications (ICD-10 - E11.59) 09/19/2024 Chronic kidney disease, stage 3a (ICD-10 - N18.31) 09/20/2024 Anemia (ICD-10 - D64.9) 07/18/2024 Type 2 diabetes mellitus with other circulatory complications (ICD-10 - E11.59) 07/18/2024 Chronic obstructive pulmonary disease, unspecified COPD type (ICD-10 - J44.9) 07/18/2024 Tremor (ICD-10 - R25.1) has FU with Neurosurgery 09/20/2024 Cervical disc disease (ICD-10 - M50.90) 09/19/2024 Localized edema (ICD-10 - R60.0) 09/05/2024 Acute cough (ICD-10 - R05.1) 09/05/2024 Anemia (ICD-10 - D64.9) 02/26/2024 Tremor (ICD-10 - R25.1) 08/03/2024 Tremor (ICD-10 - R25.1) 04/11/2024 Chronic renal failure, stage 3b (ICD-10 - N18.32) 01/14/2024 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, unspecified whether three affiliated or transplanted heart (ICD-10 - I25.10) 11/09/2023 Type 2 diabetes mellitus with other circulatory complications (ICD-10 - E11.59) 10/01/2023 Type 2 diabetes mellitus with other circulatory complications (ICD-10 - E11.59) 10/01/2023 Hypothyroidism (acquired) (ICD-10 - E03.9) 11/09/2023 Status post angioplasty with stent (ICD-10 - Z95.820) 01/14/2024 Status post angioplasty with stent (ICD-10 - Z95.820) 09/05/2024 Hx: UTI (urinary tract infection) (ICD-10 - Z87.440) 07/18/2024 Debility (ICD-10 - R53.81) requests referral with [facility] or another agency for assistance with ADL, home care and food prep 07/18/2024 Hypomagnesemia (ICD-10 - E83.42) 09/05/2024 Chronic obstructive pulmonary disease, unspecified COPD type (ICD-10 - J44.9) 01/14/2024 Tremor (ICD-10 - R25.1) 11/09/2023 Tremor (ICD-10 - R25.1) 10/01/2023 Tremor (ICD-10 - R25.1) 10/01/2023 prison current use of anticoagulant (ICD-10 - Z79.01) 11/09/2023 long term care pharmacist current use of anticoagulant (ICD-10 - Z79.01) 01/14/2024 Type 2 diabetes mellitus without complication, 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 (ICD-10 - E11.9) 09/05/2024 Type 2 diabetes mellitus with other circulatory complications (ICD-10 - E11.59) 07/18/2024 Chronic renal failure, stage 3b (ICD-10 - N18.32) 07/18/2024 PAF (paroxysmal atrial fibrillation) (ICD-10 - I48.0) taking ASA 81 mg qd 01/14/2024 Chronic respiratory failure with hypoxia (ICD-10 - J96.11) 11/09/2023 Hypothyroidism (acquired) (ICD-10 - E03.9) 10/01/2023 Cervical dystonia (ICD-10 - G24.3) She needs headrest for chair due to dystonia 10/01/2023 Chronic obstructive pulmonary disease, unspecified COPD [...] Test Test Name Order Date colonoscopy 01/15/2022 P-Comprehensive Metabolic Panel (CMP) P-Microalbumin/Creatinine, Random Urine Sample 09/19/2024 Next Appt Details Provider Name:Mi Crawford er, 10/20/2024 02:45:00 PM, [address], [place], [place], [id number], Insurance Providers Payer Name Payer Address Payer Phone Subscriber Number Group Number Insured Name Patient Relationship to Insured Coverage Start Date Coverage End Date [employer] [address] [address] [place], [place] [id number] ELENA August Self - patient is the insured MEDICAID [employer] [address] [place] [id number] August Self - patient is the insured Medical (General) History Medical History History ICD Code asthma angina hypertension hyperlipidemia type 2 diabetes hyperthyroid allergic rhinitis kidney disease rheumatic fever CAD, stent 06/2021, [facility] 02/17-02/26 [facility] COVID 19 and pneumonia 03/01-03/12/22 [facility] for GI bleed. Surgical History Surgery Date(Month/Year) Stent to Left Main Coronary artery, [facility] 07/10/2021 Right total hip arthroplasty Left total hip arthroplasty Cervical spine surgery, C3-C7 arthrodesi s and fusion of C3-C6 12/18/23 Percutaneous coronary intervention; mitr al valve repair (TMVR) 07/08/2024 Hospitalization History Reason Date(Month/Year) [facility]: MV disease with TMVR by Dr Mejia 07/08-07/09/2024 [facility] Septic shock; sepsis;jh vated LFT;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 NSTEMI, COPD, stent to Left Main cornary artery 06/2021
--- OUTSIDE RECORDS SUMMARY | 2024-09-26 12:52 | XMS_ITS | Referral Summary ---
Author Organization [employer] ([place], [place], [place], [place]) Address [address] [place] [address] Care Team Providers Care Sheet Rock Applicator Name Role Phone Zia Moore MD Primary Care Provider [phone] Jonathan Gallardo MD Unavailable Elvi Villavicencio MD Unavailable Carissa Drake MD Unavailable Devon Olea MD Unavailable [facility] Unavailable + [phone] Carlo Chavez MD Unavailable Encounters Date Type Department Care Team Description 08/25/2024 Telephone [facility] Cardiology [address] [place] [address] Jen Brian APRN Advice Only 08/09/2024 2:00 PM EDT Office Visit [facility] Cardiology [address] [place] [address] Jen Brian APRN Mitral valve insufficiency, unspecified etiology (Primary Dx) 07/11/[address] [address] Zia Moore MD Hospital Follow Up 07/08/2024 5:03 AM EDT - 07/09/2024 4:40 PM EDT Hospital Encounter [facility] 4 Interventional Care Unit [address] [place] [address] Christa Gonzalez MD Mitral regurgitation Discharge Disposition: Home or Self Care 07/08/2024 7:28 AM EDT Anesthesia Event [facility] Cardiac Catheterization Lab [address] [place] [address] Miguelangel Laura MD Bowen, Jon B, MD 07/07/2024 Travel 07/07/2024 10:35 AM EDT - 07/07/2024 11:59 PM EDT Hospital Encounter [facility] Preadmission Testing [address] [place] [address] Christa Gonzalez MD Mitral valve insufficiency, unspecified etiology (Primary Dx); Preop testing Discharge Disposition: Home or Self Care from Last 3 Months Allergies Active Allergy [...] capsule (75 mcg total) by mouth daily. Active magnesium oxide (MAG-OX) 400 mg (241.3 mg magnesium) tablet Take 1 tablet (400 mg total) by mouth daily. Active primidone (MYSOLINE) 50 MG tablet Take [...] syndrome 03/09/2022 Atherosclerotic heart diseas e of [place] coronary artery without angina pectoris 03/09/2022 Resolved [...] drink = 0.6 oz pur e alcohol) [facility] - Mental Health Answer Date Recorde [...] your living situation today? [facility] live 07/08/2024 Think about [...] Do you speak a language other than [facility]? No 07/08/2024 Do you want help [...] on file Medical Devices Implanted Type Area Field Placement Director Device Identifier Shelf Expiration Date Model / Serial / Lot St Scr - [id number] Implanted:Qty : 10 on 12/18/2023 by Carissa Drake MD at [facility] IMPLANTS N/A: Spine Cervical J &J:DEPUY:DEPUY SPINE 1020000 / 000 / Scr 4.0 Ply 3.5x12 1019-35-112 - [id number] Implanted:Qty : 10 on 12/18/2023 by Carissa Drake MD at [facility] IMPLANTS N/A: Spine Cervical J &J:DEPUY:DEPUY SPINE [id number] / [id number] / Rich Ti Rich 4.0x060 -060 - [id number] Implanted:Qty : 2 on 12/18/2023 by Carissa Drake MD at [facility] IMPLANTS N/A: Spine Cervical J &J:DEPUY:DEPUY SPINE 102064-060 / -060 / Bone Vivigen Formable Cell c -1600-002 - [id number] Implanted:Qty : 1 on 12/18/2023 by Carissa Drake MD at [facility] IMPLANTS N/A: Spine Cervical LIFENET:LIFENET TRANSPLANT SRV 11/25/2024 -[id number] / [id number] / Fibergraft Mtrx 6.25cc [id number] - [id number] Implanted:Qty : 1 on 12/18/2023 by Carissa Drake MD at [facility] IMPLANTS N/A: Spine Cervical J &J:DEPUY:DEPUY SPINE 07/16/2026 [id number] / / [id number] Imp Sys Rasta Precsn [id number] - [id number] Implanted:Qty : 1 on 07/08/[address] [facility] IMPLANTS Heart HONG LIFESCI [id number] / / Imp Sys Rasta Stbl Rail [id number] - [id number] Implanted:Qty : 1 on 07/08/[address] [facility] IMPLANTS Heart HONG LIFESCI [id number] / / Imp Sys Rasta Precsn Mitral V Pas2ma - [id number] Implanted:Qty : 1 on 07/08/[address] [facility] IMPLANTS Heart HONG LIFESCI PAS2MA / / [...] of2 resultswithin the time period is included. [facility] ECG ORDERABLES Final Result * (ABNORMAL) Glucose, Nova Meter (07/09/2024 11:20 AM EDT) Only the most recent of4 resultswithin the time period is included. POC-GLUCOSE 150(H) 70 - 110 mg/dL 07/09/2024 11:23 AM EDT [facility] Comment: In the event of poor peripheral blood flow, venous or arterial blood should be used due to the potential of erroneous results. Notified Nurse RBV Industrial Plant Custodian [id number] 07/09/2024 11:23 AM EDT [facility] Blood WHOLE BLOOD / Unknown 07/09/2024 11:20 AM EDT 07/09/2024 11:23 AM EDT Narrative [facility] - 07/09/2024 11:23 AM EDT Industrial Plant Custodian ID is - [id number] us Christa Gonzalez MD POINT OF CARE TEST ORDERABLES F inal Result [facility] [address] [place] [address], [facility] [phone] * ECHO COMPLETE (DOPPLER / COLOR) WO CONTRAST (07/09/2024 10:37 AM EDT) Anatomical Region Laterality Modality Heart Vascular Ultraso und 07/09/2024 10:0 5 AM EDT Narrative 07/11/2024 2:26 PM EDT TRANSTHORACIC ECHOCARDIOGRAPHY REPORT Demographics Patient Name: BRYAN AUGUST : 1950 [place] Age: 74 year(s) Corporate ID Number: [id number] Gender Female Log Check Scaler: Noe LYONS Height: 60 inches Referring Physician: [...] 2.01 m/s E/A ratio: 0.66 m/s Volume ysmjqvriy06.49 LV length: 7.13 cm ml Volume nhlyzgfc11.36 ml LVOT diameter: 1.99 cm Normal sized [...] Valve TR velocity: 3.04 m/s TR gradient: 36.65327 mmHg Estimated RAP: 3 mmHg RVSP: 39.91 [...] HUMBLE Age: 74 year(s) Corporate ID Number: [id number] Gender Female Log Check Scaler: Noe LYONS Height: 60 inches Referring Physician: [...] 2.01 m/s E/A ratio: 0.66 m/s Volume kacdnqoiv83.49 LV length: 7.13 cm ml Volume umllorgc72.36 ml LVOT diameter: 1.99 cm Normal sized [...] Valve TR velocity: 3.04 m/s TR gradient: 36.04967 mmHg Estimated RAP: 3 mmHg RVSP: 39.91 [...] 10.0 K/ L 07/09/2024 6:02 AM EDT [facility] RBC 3.44(L) 3.93 - 5.22 M/ L 07/09/2024 6:02 AM EDT [facility] Hemoglobin 10.8(L) 11.2 - 15.7 GM/DL 07/09/2024 6:02 AM EDT [facility] Hematocrit 34.9 34.1 - 44.9 % 07/09/2024 6:02 AM EDT [facility] MCV 102(H) 79 - 95 fL 07/09/2024 6:02 AM EDT [facility] MCH 31.4 25.6 - 32.2 pg 07/09/2024 6:02 AM EDT [facility] MCHC 30.9(L) 32.2 - 35.5 GM/DL 07/09/2024 6:02 AM EDT [facility] RDW 13.4 11.7 - 14.4 % 07/09/2024 6:02 AM EDT [facility] Platelets 236 140 - 375 K/CU MM 07/09/2024 6:02 AM EDT [facility] MPV 9.4 9.4 - 12.3 fL 07/09/2024 6:02 AM EDT [facility] Blood Venipuncture / Unknown 07/09/2024 5:25 AM EDT 07/09/2024 5:35 AM EDT us Christa Gonzalez MD LAB BLOOD ORDERABLES Final Resu lt [facility] [address] [phone] * (ABNORMAL) Basic Metabolic Panel (07/09/2024 5:24 AM EDT) Sodium 137 136 - 145 meq/L 07/09/2024 6:08 AM EDT [facility] Potassium 4.7 3.4 - 5.1 meq/L 07/09/2024 6:08 AM EDT [facility] CO2 21(L) 22 - 29 meq/L 07/09/2024 6:08 AM EDT [facility] Chloride 107 98 - 112 meq/L 07/09/2024 6:08 AM EDT [facility] Glucose 111 82 - 115 mg/dL 07/09/2024 6:08 AM EDT [facility] BUN 32.7(H) 9.8 - 20.1 mg/dL 07/09/2024 6:08 AM EDT [facility] Creatinine 1.12(H) 0.57 - 1.11 mg/dL 07/09/2024 6:08 AM EDT [facility] BUN/Creatinine 29(H) 8 - 20 07/09/2024 6:08 AM EDT [facility] Calcium 8.5 8.4 - 10.2 mg/dL 07/09/2024 6:08 AM EDT [facility] Anion Gap 14(H) 4 - 12 07/09/2024 6:08 AM EDT [facility] eGFR (mL/min/1.73m2) 52(L) >=60 mL/min/1.7 3m2 07/09/2024 6:08 AM EDT [facility] Osmolality Calc 281.7 mOsm/kg 6:08 AM EDT [facility] Blood Venipuncture / Unknown 07/09/2024 5:24 AM EDT 07/09/2024 5:30 AM EDT us Christa Gonzalez MD LAB BLOOD ORDERABLES Final Resu lt Performing Organization Address City/State/[facility] Co de Phone Number [facility] [address] [phone] * TOBY (07/08/2024 10:08 AM EDT) Anatomical [...] August Date of 1950 HUMBLE Patient # [id number] Medical Record # Physician CHRISTA GONZALEZ MD Date of Study 07/08/2024 NIELS LAURA MD Referring Interventional Physician physician Procedure Procedure Type Diagnostic procedure: Miscellaneous: Percutaneous Mitral Valve Repair Conclusions Procedure Description DAVID - Rasta Procedure (The patient will be included in the STS/ACC TVT Register[place] with NCDR sponsored by the the [employer] (NCT# [id number]) -Successful transcatheter mitral mbpf-ty-vgjm repair (DAVID) with the use of the Rasta system (VELMA device) -Transseptal puncture as part of the procedure Industrial Plant Custodian : Christa Gonzalez MD Procedure note: 1. [...] AUGUST Date of Birth1950 [place] Patient # [id number] Medical Record # Physician CHRISTA GONZALEZ MD Date of Study07/08/2024 NIELS LAURA MD Referring Interventional Physician physician Procedure Procedure Type Diagnostic procedure: Miscellaneous: Percutaneous Mitral Valve Repair Conclusions Procedure Description DAVID - Rasta Procedure (The patient will be included in the STS/ACC TVT Registery with NCDR sponsored by the the [employer] (NCT# [id number]) -Successful transcatheter mitral wkcf-qe-xboa repair (DAVID) with the useof the Rasta system (VELMA device) -Transseptal puncture as part of the procedure Industrial Plant Custodian : Christa Gonzalez MD Procedure note: 1. [...] - 137 sec 07/08/2024 12:06 PM EDT [facility] Industrial Plant Custodian [id number] 07/08/2024 12:06 PM EDT [facility] Blood 07/08/2024 9:14 AM EDT 07/08/2024 12:06 PM EDT Narrative [facility] - 07/08/2024 12:06 PM EDT Industrial Plant Custodian ID is - [id number] us Christa Gonzalez MD POINT OF CARE TEST ORDERABLES F inal Result [facility] [address] [phone] * AN SINGLE LUMEN INTUBATION (07/08/2024 8:16 [...] UA Light Yellow 07/08/2024 6:33 AM EDT [facility] Clarity, UA Turbid(A) Clear 07/08/2024 6:33 AM EDT [facility] Specific [place], UA 1.020 1.005 - 1.030 07/08/2024 6:33 AM EDT [facility] pH, UA 6.5 6.0 - 8.0 07/08/2024 6:33 AM EDT [facility] Leukocytes, UA 250 Leanne/uL(A) Negative 07/08/2024 6:33 AM EDT [facility] Nitrite, UA Negative Negative 07/08/2024 6:33 AM EDT [facility] Protein, UA Negative Negative 07/08/2024 6:33 AM EDT [facility] Glucose, UA 4+(A) Normal 07/08/2024 6:33 AM EDT [facility] Ketones, UA Negative Negative 07/08/2024 6:33 AM EDT [facility] Urobilinogen, UA Normal Normal 07/08/2024 6:33 AM EDT [facility] Bilirubin, UA Negative Negative 07/08/2024 6:33 AM EDT [facility] Blood, UA Negative Negative 07/08/2024 6:33 AM EDT [facility] RBC, UA 0-2(A) None Seen /HPF 07/08/2024 6:33 AM EDT [facility] WBC, UA 21-50(A) None Seen /HPF 07/08/2024 6:33 AM EDT [facility] Bacteria, UA 2+(A) None Seen, Trace 07/08/2024 6:33 AM EDT [facility] SQUAMOUS EPITHELIAL 0-2(A) None Seen /HPF 07/08/2024 6:33 AM EDT [facility] Specimen Source Urine, Clean Catch 07/08/2024 6:33 AM EDT [facility] Urine URINE SPECIMEN COLLECTION, CLEAN CATCH / Unknown 07/08/2024 6:24 AM EDT 07/08/2024 6:24 AM EDT Christa Gonzalez MD URINE ORDERABLES Final Result Performing Organization Address City/[facility]/ZIP Co de Phone Number [facility] [address] [place] [address] [phone] * Antibody Identification (07/08/2024 6:13 AM EDT) Antibody Identification Anti-E 07/08/2024 9:45 AM EDT [facility] [place] Blood Venipuncture / Unknown 07/08/2024 6:13 AM EDT 07/08/2024 6:16 AM EDT Christa Gonzalez MD [facility] BLOOD [facility] TEST ORDERABLES Final Result Performing Organization Address [facility] Co de Phone Number [facility] 1 [facility] [place] [address], [facility] [phone] * (ABNORMAL) Type and Screen (07/08/2024 6:13 AM EDT) ABO/Rh O Positive 07/08/2024 5:58 AM EDT [facility] [place] Antibody Screen Positive(A) 07/08/2024 5:58 AM EDT [facility] [place] HISTCHK HIST CHECK PERFORMED 07/08/2024 5:58 AM EDT [facility] [place] Blood Venipuncture / Unknown 07/08/2024 6:13 AM EDT 07/08/2024 6:16 AM EDT Christa Gonzalez MD [facility] BLOOD BANK TEST ORDERABLES Edited Result - Final Performing Organization Address [facility]/ZIP Co de Phone Number [facility] 1 [facility] [place] [address], [facility] [phone] * EKG-SCANNED (07/08/2024) Narrative 07/08/2024 Ordered by an unspecified provider. us Default Scanning Provider SCAN ORDERS Final Result * (ABNORMAL) CBC with automated diff (07/07/2024 11:13 AM EDT) WBC 7.5 4.0 - 10.0 K/ L 07/07/2024 12:32 PM EDT [facility] RBC 4.25 3.93 - 5.22 M/ L 07/07/2024 12:32 PM EDT [facility] Hemoglobin 13.3 11.2 - 15.7 GM/DL 07/07/2024 12:32 PM EDT [facility] Hematocrit 41.6 34.1 - 44.9 % 07/07/2024 12:32 PM EDT [facility] MCV 98(H) 79 - 95 fL 07/07/2024 12:32 PM EDT [facility] MCH 31.3 25.6 - 32.2 pg 07/07/2024 12:32 PM EDT [facility] MCHC 32.0(L) 32.2 - 35.5 GM/DL 07/07/2024 12:32 PM EDT [facility] RDW 13.5 11.7 - 14.4 % 07/07/2024 12:32 PM EDT [facility] Platelets 331 140 - 375 K/CU MM 07/07/2024 12:32 PM EDT [facility] MPV 9.4 9.4 - 12.3 fL 07/07/2024 12:32 PM EDT [facility] % Neutros 69 34 - 71 % 07/07/2024 12:32 PM EDT [facility] % Lymphs 18(L) 19 - 52 % 07/07/2024 12:32 PM EDT [facility] % Monos 7 5 - 13 % 07/07/2024 12:32 PM EDT [facility] % Eos 4 1 - 6 % 07/07/2024 12:32 PM EDT [facility] % Baso 0 0 - 1 % 07/07/2024 12:32 PM EDT [facility] NRBC Absolute <0.01 0 - 0.012 K/ul 07/07/2024 12:32 PM EDT [facility] # Neutros 5.21 1.56 - 6.13 K/ L 07/07/2024 12:32 PM EDT [facility] # Lymphs 1.37 1.18 - 3.74 K/ L 07/07/2024 12:32 PM EDT [facility] # Monos 0.56 0.24 - 0.86 K/ L 07/07/2024 12:32 PM EDT [facility] # Eos 0.27 0.04 - 0.36 K/ L 07/07/2024 12:32 PM EDT [facility] # Baso 0.03 0.01 - 0.08 K/ L 07/07/2024 12:32 PM EDT [facility] Immature Granulocytes-Re lative 1.10(H) 0.01 - 0.43 % 07/07/2024 12:32 PM EDT [facility] # IG 0.08(H) 0.00 - 0.03 K/uL 07/07/2024 12:32 PM EDT [facility] Blood Venipuncture / Unknown 07/07/2024 11:13 AM EDT 07/07/2024 12:25 PM EDT Narrative [facility] - 07/07/2024 12:32 PM EDT [...] MD LAB BLOOD ORDERABLES Final Resu lt [facility] [address] [place] [address], [facility] [phone] * (ABNORMAL) Comprehensive metabolic panel (07/07/2024 11:13 AM EDT) Sodium 140 136 - 145 meq/L 07/07/2024 12:47 PM EDT [facility] Potassium 4.9 3.4 - 5.1 meq/L 07/07/2024 12:47 PM [facility] Chloride 105 98 - 112 meq/L 07/07/2024 12:47 PM [facility] CO2 25 22 - 29 meq/L 07/07/2024 12:47 PM [facility] Calcium 9.7 8.4 - 10.2 mg/dL 07/07/2024 12:47 PM [facility] Glucose 111 82 - 115 mg/dL 07/07/2024 12:47 PM [facility] BUN 33.3(H) 9.8 - 20.1 mg/dL 07/07/2024 12:47 PM [facility] Creatinine 1.08 0.57 - 1.11 mg/dL 07/07/2024 12:47 PM [facility] BUN/Creatinine 31(H) 8 - 20 07/07/2024 12:47 PM [facility] eGFR (mL/min/1.73m2) 54(L) >=60 mL/min/1. 73m2 07/07/2024 12:47 PM [facility] Albumin 3.6 3.5 - 5.0 g/dL 07/07/2024 12:47 PM [facility] Alkaline Phosphatase 102 40 - 150 U/L 07/07/2024 12:47 PM [facility] ALT 10 <=34 U/L 07/07/2024 12:47 PM [facility] Comment: ALT2 reagent used for testing does not contain P5P supplementation and therefore may miss ALT elevations in patients with B6 deficiency. This population may be as high as 10% in the [place], with risk factors including malabsorption, drug interactions, and alcoholic hepatitis. AST 21 11 - 34 U/L 07/07/2024 12:47 PM [facility] Comment: AST2 reagent used for testing does not contain P5P supplementation and therefore may miss AST elevations in patients with B6 deficiency. This population may be as high as 10% in the [place], with risk factors including malabsorption, drug interactions, and alcoholic hepatitis. Total Bilirubin 0.3 0.2 - 1.2 mg/dL 07/07/2024 12:47 PM [facility] Protein, Total 7.5 6.4 - 8.3 g/dL 07/07/2024 12:47 PM EDT [facility] Globulin 3.9 2.5 - 4.1 g/dL 07/07/2024 12:47 PM EDT [facility] Anion Gap 15(H) 4 - 12 07/07/2024 12:47 PM EDT [facility] A/G Ratio 0.9 0.7 - 1.9 07/07/2024 12:47 PM EDT [facility] Osmolality Calc 287.5 mOsm/kg 12:47 PM EDT [facility] Blood Venipuncture / Unknown 07/07/2024 11:13 AM EDT 07/07/2024 12:25 PM EDT us Christa Gonzalez MD LAB BLOOD ORDERABLES Final Resu lt [facility] [address] [phone] from Last 3 Months Insurance [facility] MCR ADV DUAL COMPLETE MEDICAID [place] Advance Directives For more information, please contact: [phone] * Full Code (Latest Code Status on File) Date Activated Date Inactivated Comments 07/08/2024 10:19 AM 07/09/2024 5:44 PM * Full Code Date Activated Date Inactivated Comments 05/05/2024 12:13 PM 05/06/2024 4:27 AM * Full Code Date Activated Date Inactivated Comments 12/18/2023 1:51 PM 12/24/2023 4:20 PM Care Teams Sheet Rock Applicator Relationship Specialty Start Date End Date Zia Moore MD [address] [facility] [address] [place] [address] PCP - General Family Medicine 11/20/23 Jonathan Gallardo MD [address] [place] [address] Wildlife Biology Technician Cardiology 11/20/23 Elvi Villavicencio MD [address] [facility] [address] [place] [address] Industrial Sales Representative Nephrology 11/26/23 Carissa Drake MD [address] [facility] [address] [place] [address] Neurologist Neurosurgery 11/26/23 Devon Olea MD [address] [facility] [address] [place] [address] Biomass Technician Pulmonary Disease 11/26/23 [place], [facility] Sleep Disorder [address] [place] [address] Consulting Physician Sleep Medicine 11/26/23 Carlo Chavez MD [address] [facility] [address] [place], [place] [id number] Surgeon Cardiothoracic Surgery 12/15/23
--- OUTSIDE RECORDS SUMMARY | 2024-09-26 12:52 | XMS_ITS | Encounter Summary ---
Author Organization [employer] ([place], [place], [place], [place]) Address [address] [place] [address] Care Team Providers Care Textile Colorist Formulator Name Role Phone Zia Moore MD Primary Care Provider [phone] Jonathan Gallardo MD Unavailable Elvi Villavicencio MD Unavailable Carissa Drake MD Unavailable Devon Olea MD Unavailable [facility] Unavailable [phone] Carlo Chavez MD Unavailable Reason for Visit * Reason Onset Date Comments Advice Only 08/25/2024 Encounter Details Date Type Department Care Team (Late st Contact Info) Description 08/25/2024 Telephone [facility] Cardiology [address] [place] [address] Jen Brian APRN [address] [facility] [address] [place] [address] Advice Only Social History Tobacco Use Types Packs/Day Years Used Date Smoking Tobacco: Former Cigarettes Passive Smoke Exposure: Current Smokeless Tobacco: Never Comments:Smoked for 50 yrs , Quit 3 yrs ago Alcohol Use Standard Drinks/Week Comments Never 0 (1 standard drink = 0.6 oz pur e alcohol) [facility] - Mental Health Answer Date Recorde d [...] your living situation today? I have a [facility] place to live 07/08/2024 Think about [...] Do you speak a language other than [place] at [facility]? No 07/08/2024 Do you want help [...] EDT I spoke with patient and echo radiology scheduler at [facility]. Patient was suppose to have echo sameday but she forgot about her appt, I have faxed order to [facility] [phone] and spoke with the echo radiology scheduler Brenda and informed her that Im sending over the order. She noted that once received she will call patient and get it scheduled. I advised her to contact our office if any concerns arise. I advised patient that [place] will follow up with her and get her echo scheduled, patient verbally understood and thanked me for my call . * Telephone Encounter - Natalie Ring - 08/25/2024 11:22 AM EDT Patient calling states [facility] will not schedule her echo until she sees another doctor there Is there any way you can get the echo scheduled at [facility] for Patient please contact patient at [phone] documented in this encounter Plan of Treatment Not on file documented as of this encounter Visit Diagnoses Not on filedocumented in this encounter Care Teams Textile Colorist Formulator Relationship Specialty Start Date End Date Zia Moore MD [address] [place] [address] PCP - General Family Medicine 11/20/23 Jonathan Gallardo MD [address] [place] [address] Windshield Wiper Repairer Cardiology 11/20/23 Elvi Villavicencio MD [address] [facility] [address] [place] [address] Pastry Cook Apprentice Nephrology 11/26/23 Carissa Drake MD [address] [facility] [address] [place] [address] Neurologist Neurosurgery 11/26/23 Devon Olea MD [address] [place] [address] Fitness Specialist Pulmonary Disease 11/26/23 [place] [address] [place] [address] Consulting Physician Sleep Medicine 11/26/23 Carlo Chavez MD [address] [facility] [address] [place] [address] Surgeon Cardiothoracic Surgery 12/15/23 documented as of this encounter
--- OUTSIDE RECORDS SUMMARY | 2024-09-26 12:52 | XMS_ITS | Clinical Summary ---
Author Organization [facility] ([place], [place], [place], [place]) Address [address] [place] [address] Care Team Providers Care Plaster Molder Name Role Phone Zia Moore MD Primary Care Provider [phone] Jonathan Gallardo MD Unavailable Elvi Villavicencio MD Unavailable Carissa Drake MD Unavailable Devon Olea MD Unavailable Luis Whalne S Sleep Disorder Unavailable [phone] Carlo Chavez MD Unavailable Allergies Active Allergy [...] Atherosclerotic heart diseas e of [place] coronary artery without angina pectoris 03/09/2022 Resolved Problems Problem Noted Date Diagnosed Date Resolved Date Mitral valve disease, rheumatic 11/20/2023 12/15/2023 Encounters Date Type Department Care Team Description 08/25/2024 Telephone [facility] Cardiology [address] [place] [phone] Jen Brian APRN Advice Only 08/09/2024 2:00 PM EDT Office Visit [facility] Cardiology [address] [place] [address] Jen Brian, CORE DIPPER Mitral valve insufficiency, unspecified etiology (Primary Dx) 07/11/[address] [address] Zia Moore MD Hospital Follow Up 07/08/2024 7:28 AM EDT Anesthesia Event [facility] Cardiac Catheterization Lab [address] [phone] Miguelangel Laura MD Bowen, Jon B, MD 07/08/2024 5:03 AM EDT - 07/09/2024 4:40 PM EDT Hospital Encounter [facility] 4 Interventional Care Unit 1 [place] [address] Christa Gonzalez MD Mitral regurgitation Discharge Disposition: Home or Self Care 07/07/2024 10:35 AM EDT - 07/07/2024 11:59 PM EDT Hospital Encounter [facility] Preadmission Testing 1 [place] [address] Christa Gonzalez MD Mitral valve insufficiency, unspecified etiology (Primary Dx); Preop testing Discharge Disposition: Home or Self Care 07/07/2024 Travel from Last 3 Months Family History Medical [...] drink = 0.6 oz pur e alcohol) [facility] - Mental Health Answer Date Recorde [...] your living situation today? [facility] 07/08/2024 Think about the [...] Do you speak a language other than Qatari at [facility]? No 07/08/2024 Do you want help with [...] 1950 Sigmoidoscopy 1950 Diabetic Eye Exam 1960 Hepatitis C Screening 1968 Breast Cancer Screening 1990 Shingles Vaccine (Zoster) (1 of 2) 2000 Respiratory Syncytial Virus (RSV) Adult or (1 - Risk 60-74 years 1-dose series) 2010 COVID-19 VACCINE (3 - 2023-2 5 season) 2023 03/11/2021, 06/20/2020 Medicare IPPE (Welcome to Medicare) G0402 11/22/2023 Hemoglobin A1C 12/15/2023 Falls Risk Screening 03/23/2024 Influenza Vaccine (#1) 2024 , 12/11/2022, 11/20/2021, Additional history exists Tobacco Cessation Counseling and Screening (12+) 08/09/2025 08/09/2024 DTAP/TDAP/TD VACCINES (2 - T d or Tdap) 02/06/2033 02/06/2023 Pneumococcal 50+ years Completed 01/15/2022, 2013 Medical Devices Implanted Type Area Template Reproduction Technician Device Identifier Shelf Expiration Date Model / Serial / Lot [facility] 1020-00-000 - [id number] Implanted:Qty : 10 on 12/18/2023 by Carissa Drake MD at [facility] IMPLANTS N/A: Spine Cervical J &J:DEPUY:DEPUY SPINE 1020000 / 000 / Scr 4.0 Ply 3.5x12 35-112 - [id number] Implanted:Qty : 10 on 12/18/2023 by Carissa Drake MD at [facility] IMPLANTS N/A: Spine Cervical J &J:DEPUY:DEPUY SPINE / / Rich Ti Rich 4.0x060 -060 - [id number] Implanted:Qty : 2 on 12/18/2023 by Carissa Drake MD at [facility] IMPLANTS N/A: Spine Cervical J &J:DEPUY:DEPUY SPINE 060 / 060 / Bone Vivigen Formable Cell 5cc -1600-002 - [id number] Implanted:Qty : 1 on 12/18/2023 by Carissa Drake MD at [facility] IMPLANTS N/A: Spine Cervical LIFENET:LIFENET TRANSPLANT SRV 11/25/2024 -1600-002 / [id number] / Fibergraft Mtrx 6.25cc [id number] - [id number] Implanted:Qty : 1 on 12/18/2023 by Carissa Drake MD at [facility] IMPLANTS N/A: Spine Cervical J &J:DEPUY:DEPUY SPINE 07/16/2026 [id number] / / [id number] Imp Sys Rasta Precsn 11356tyk - [id number] Implanted:Qty : 1 on 07/08/2024 at [facility] IMPLANTS Heart HONG LIFESCI [id number] / / Imp Sys Rasta Stbl Rail - [id number] Implanted:Qty : 1 on 07/08/2024 at [facility] IMPLANTS Heart HONG LIFESCI [id number] / / Imp Sys Rasta Precsn Mitral V Pas2ma - [id number] Implanted:Qty : 1 on 07/08/2024 at [facility] IMPLANTS Heart HONG LIFESCI [id number] / [...] of2 resultswithin the time period is included. us Jen Brian APRN ECG ORDERABLES Final Result * (ABNORMAL) Glucose, [...] potential of erroneous results. Notified Nurse RBV Role Player [id number] 07/09/2024 11:23 AM EDT [facility] Blood WHOLE BLOOD / Unknown 07/09/2024 11:20 AM EDT 07/09/2024 11:23 AM EDT Narrative [facility] - 07/09/2024 11:23 AM EDT Role Player ID is - [id number] us Christa Gonzalez MD POINT OF CARE TEST ORDERABLES F inal Result [facility] [address] [id number] [phone] * ECHO COMPLETE (DOPPLER / COLOR) WO CONTRAST (07/09/2024 10:37 AM EDT) Anatomical Region Laterality Modality Heart Vascular Ultraso und 07/09/2024 10:0 5 AM EDT Narrative 07/11/2024 2:26 PM EDT TRANSTHORACIC ECHOCARDIOGRAPHY REPORT Demographics Patient Name: BRYAN RICCI : 1950 SHAHLA Age: 74 year(s) Corporate ID Number: [id number] Gender Female Bilingual Interpreter: Noe LYONS Height: 60 inches Referring Physician: CHRISTA GONZALEZ MD Weight: 163 pounds Interpreting ANA ROSA CLARKE DO BMI: 31.83 kg/m^2 Physician: Date of Service: 07/09/2024 Blood Pressure: 125/54 mmHg Type of Study: TTE procedure: ECHO COMPLETE (DOPPLER / COLOR) W OR WO CONTRAST. Patient Status: Routine IP Study Location: [facility] Quality: Adequate visualization History/Tech Notes: Indication: S/P [...] 2.01 m/s E/A ratio: 0.66 m/s Volume jcqyejhlk15.49 LV length: 7.13 cm ml Volume ukyzofih02.36 ml LVOT diameter: 1.99 cm Normal sized [...] Valve TR velocity: 3.04 m/s TR gradient: 36.10329 mmHg Estimated RAP: 3 mmHg RVSP: 39.91 [...] Demographics Patient Name: BRYAN AUGUST : 1950 SHAHLA Age: 74 year(s) Corporate ID Number: [id number] Gender Female Bilingual Interpreter: Noe LYONS Height: 60 inches Referring Physician: [...] 2.01 m/s E/A ratio: 0.66 m/s Volume csubtmrfb35.49 LV length: 7.13 cm ml Volume afnonqgx77.36 ml LVOT diameter: 1.99 cm Normal sized [...] Valve TR velocity: 3.04 m/s TR gradient: 36.80624 mmHg Estimated RAP: 3 mmHg RVSP: 39.91 [...] - 10.0 K/ L 07/09/2024 6:02 AM [facility] RBC 3.44(L) 3.93 - 5.22 M/ L 07/09/2024 6:02 AM [facility] Hemoglobin 10.8(L) 11.2 - 15.7 GM/DL 07/09/2024 6:02 AM [facility] Hematocrit 34.9 34.1 - 44.9 % 07/09/2024 6:02 AM [facility] MCV 102(H) 79 - 95 fL 07/09/2024 6:02 AM [facility] MCH 31.4 25.6 - 32.2 pg 07/09/2024 6:02 AM [facility] MCHC 30.9(L) 32.2 - 35.5 [...] Resu lt [facility] [address] [phone] * (ABNORMAL) Basic Metabolic Panel (07/09/2024 5:24 [...] Resu lt [facility] [address] [phone] * TOBY (07/08/2024 10:08 AM EDT) Anatomical [...] Gonzalez Miguelangel Laura MD ANESTHESIA ORDERABLES Colleen lowry Result * CARDIAC CATH - TRANSCATHETER MITRAL VALVE REPAIR (TMVR) (07/08/2024 9:54 AM EDT) Anatomical Region Laterality Modality Heart Other 07/08/2024 8:42 AM EDT Narrative 07/08/2024 1:26 PM EDT Cardiac Diagnostic Report Demographics Patient Name August Date of 1950 SHAHLA Patient # [id number] Medical Record # Physician CHRISTA GONZALEZ MD Date of Study 07/08/2024 NIELS LAURA MD Referring Interventional Physician physician Procedure Procedure Type Diagnostic procedure: Miscellaneous: Percutaneous Mitral Valve Repair Conclusions Procedure Description DAVID - Rasta Procedure (The patient will be included in the STS/ACC TVT [place] with NCDR sponsored by the the [employer] (NCT# [id number]) -Successful transcatheter mitral asly-st-yvqj repair (DAVID) with the use of the Rasta system (VELMA device) -Transseptal puncture as part of the procedure Role Player : Christa Gonzalez MD Procedure note: 1. [...] Patient Name BRYAN AUGUST Date of Birth1950 SHAHLA Patient # [id number] Medical Record # Physician CHRISTA GONZALEZ MD Date of Study07/08/2024 NIELS LAURA MD Referring Interventional Physician physician Procedure Procedure Type Diagnostic procedure: Miscellaneous: Percutaneous Mitral Valve Repair Conclusions Procedure Description DAVID - Rasta Procedure (The patient will be included in the STS/ACC TVT [place] with NCDR sponsored by the the [employer] (NCT# [id number]) -Successful transcatheter mitral qkyv-hw-twgd repair (DAVID) with the useof the Rasta system (VELMA device) -Transseptal puncture as part of the procedure Role Player : Christa Gonzalez MD Procedure note: 1. [...] factor modification. Procedure Data Procedure Date Date: 04/18/2025Start: 08:42End: 09:59 Entry Locations - Antegrade Percutaneous [...] CLOTTING TIME (07/08/2024 9:14 AM EDT) Pathologist [facility] Activated Clotting Time 383(H) 74 - 137 sec 07/08/2024 12:06 PM EDT [facility] Role Player [id number] 07/08/2024 12:06 PM EDT [facility] Blood 07/08/2024 9:14 AM EDT 07/08/2024 12:06 PM EDT Narrative [facility] - 07/08/2024 12:06 PM EDT Role Player ID is - [id number] Christa Gonzalez MD POINT OF CARE TEST ORDERABLES F inal Result [facility] 1 [place] [address], [facility] [phone] * AN SINGLE LUMEN INTUBATION (07/08/2024 8:16 [...] AM EDT [facility] Specific [place], UA 1.020 1.005 - 1.030 07/08/2024 6:33 [...] Final Result [facility] [address] [phone] * Antibody Identification (07/08/2024 6:13 AM EDT) Antibody Identification Anti-E 07/08/2024 9:45 AM EDT [facility] ([place]) Blood Venipuncture / Unknown 07/08/2024 6:13 AM EDT 07/08/2024 6:16 AM EDT Christa Gonzalez MD [facility] TEST ORDERABLES Final Result [facility] ([place]) 1 [facility] [place] [address], [facility] [phone] * (ABNORMAL) Type and Screen (07/08/2024 6:13 AM EDT) ABO/Rh O Positive 07/08/2024 5:58 AM EDT [facility] ([place]) Antibody Screen Positive(A) 07/08/2024 5:58 AM EDT [facility] ([place]) HISTCHK HIST CHECK PERFORMED 07/08/2024 5:58 AM EDT [facility] ([place]) Blood Venipuncture / Unknown 07/08/2024 6:13 AM EDT 07/08/2024 6:16 AM EDT Christa Gonzalez MD [facility] BLOOD [facility] TEST ORDERABLES Edited Result - Final [facility] ([place]) 1 [facility] [place] [address], [facility] [phone] * EKG-SCANNED (07/08/2024) Narrative 07/08/2024 Ordered by an unspecified provider. us Default Scanning Provider SCAN ORDERS Final Result * (ABNORMAL) CBC with automated diff (07/07/2024 11:13 AM EDT) WBC 7.5 4.0 - 10.0 K/ L 07/07/2024 12:32 PM EDT [facility] RBC 4.25 3.93 - 5.22 M/ L 07/07/2024 12:32 PM EDT [facility] Hemoglobin 13.3 11.2 - 15.7 GM/DL 07/07/2024 12:32 PM EDT [facility] Hematocrit 41.6 34.1 - 44.9 % 07/07/2024 12:32 PM EDT [facility] MCV 98(H) 79 - 95 fL 07/07/2024 12:32 PM EDT [facility] MCH 31.3 25.6 - 32.2 pg 07/07/2024 12:32 PM EDT [facility] MCHC 32.0(L) 32.2 - 35.5 GM/DL 07/07/2024 12:32 PM EDT [facility] RDW 13.5 11.7 - 14.4 % 07/07/2024 12:32 PM EDT [facility] Platelets 331 140 - 375 K/CU MM 07/07/2024 12:32 PM EDT [facility] MPV 9.4 9.4 - 12.3 fL 07/07/2024 12:32 PM EDT [facility] % Neutros 69 34 - 71 % 07/07/2024 12:32 PM EDT [facility] % Lymphs 18(L) 19 - 52 % 07/07/2024 12:32 PM EDT [facility] % Monos 7 5 - 13 % 07/07/2024 12:32 PM EDT [facility] % Eos 4 1 - 6 % 07/07/2024 12:32 PM EDT [facility] % Baso 0 0 - 1 % 07/07/2024 12:32 PM EDT [facility] NRBC Absolute <0.01 0 - 0.012 K/ul 07/07/2024 12:32 PM EDT [facility] # Neutros 5.21 1.56 - 6.13 K/ L 07/07/2024 12:32 PM EDT [facility] # Lymphs 1.37 1.18 - 3.74 K/ L 07/07/2024 12:32 PM EDT [facility] # Monos 0.56 0.24 - 0.86 K/ L 07/07/2024 12:32 PM EDT [facility] # Eos 0.27 0.04 - 0.36 K/ L 07/07/2024 12:32 PM EDT [facility] # Baso 0.03 0.01 - 0.08 K/ L 07/07/2024 12:32 PM EDT [facility] Immature Granulocytes-Re lative 1.10(H) 0.01 - 0.43 % 07/07/2024 12:32 PM EDT [facility] # IG 0.08(H) 0.00 - 0.03 K/uL 07/07/2024 12:32 PM EDT [facility] Blood Venipuncture / Unknown 07/07/2024 11:13 AM EDT 07/07/2024 12:25 PM EDT Narrative [facility] - 07/07/2024 12:32 PM [...] Resu lt [facility] [address] [phone] * (ABNORMAL) Comprehensive metabolic panel (07/07/2024 11:13 AM EDT) Sodium 140 136 - 145 meq/L 07/07/2024 12:47 PM EDT [facility] Potassium 4.9 3.4 - 5.1 meq/L 07/07/2024 12:47 PM EDT [facility] Chloride 105 98 - 112 meq/L 07/07/2024 12:47 PM EDT [facility] CO2 25 22 - 29 meq/L 07/07/2024 12:47 PM EDT [facility] Calcium 9.7 8.4 - 10.2 mg/dL 07/07/2024 12:47 PM EDT [facility] Glucose 111 82 - 115 mg/dL 07/07/2024 12:47 PM EDT [facility] BUN 33.3(H) 9.8 - 20.1 mg/dL 07/07/2024 12:47 PM [facility] Creatinine 1.08 0.57 - 1.11 mg/dL 07/07/2024 12:47 PM [facility] BUN/Creatinine 31(H) 8 - 20 07/07/2024 12:47 PM [facility] eGFR (mL/min/1.73m2) 54(L) >=60 mL/min/1. 73m2 07/07/2024 12:47 PM [facility] Albumin 3.6 3.5 - 5.0 g/dL 07/07/2024 12:47 PM [facility] Alkaline Phosphatase 102 40 - 150 U/L 07/07/2024 12:47 PM [facility] ALT 10 <=34 U/L 07/07/2024 12:47 PM [facility] Comment: ALT2 reagent used for testing does not contain P5P supplementation and therefore may miss ALT elevations in patients with B6 deficiency. This population may be as high as 10% in the [place], with risk factors including malabsorption, drug interactions, and alcoholic hepatitis. AST 21 11 - 34 U/L 07/07/2024 12:47 PM [facility] Comment: AST2 reagent used for testing does not contain P5P supplementation and therefore may miss AST elevations in patients with B6 deficiency. This population may be as high as 10% in the [place], with risk factors including malabsorption, drug interactions, and alcoholic hepatitis. Total Bilirubin 0.3 0.2 - 1.2 mg/dL 07/07/2024 12:47 PM [facility] Protein, Total 7.5 6.4 - 8.3 g/dL 07/07/2024 12:47 PM [facility] Globulin 3.9 2.5 - 4.1 g/dL 07/07/2024 12:47 PM [facility] Anion Gap 15(H) 4 - 12 07/07/2024 12:47 PM [facility] A/G Ratio 0.9 0.7 - 1.9 07/07/2024 12:47 PM [facility] Osmolality Calc 287.5 mOsm/kg 12:47 PM [facility] Blood Venipuncture / Unknown 07/07/2024 11:13 AM EDT 07/07/2024 12:25 PM EDT us Christa Gonzalez MD LAB BLOOD ORDERABLES Final Resu lt [facility] 1 [place] [address], [facility] [phone] from Last 3 Months Insurance [facility] M[facility] ADV DUAL COMPLETE MEDICAID [place] Advance Directives For more information, please contact: [phone] * Full Code (Latest Code Status on File) Date Activated Date Inactivated Comments 07/08/2024 10:19 AM 07/09/2024 5:44 PM * Full Code Date Activated Date Inactivated Comments 05/05/2024 12:13 PM 05/06/2024 4:27 AM * Full Code Date Activated Date Inactivated Comments 12/18/2023 1:51 PM 12/24/2023 4:20 PM Care Teams Plaster Molder Relationship Specialty Start Date End Date Zia Moore MD [address] [place] [id number] PCP - General Family Medicine 11/20/23 Jonathan Gallardo MD [address] [place] [address] Automotive Welder Cardiology 11/20/23 Elvi Villavicencio MD [address] [facility] [address] [place] [address] Respiratory Care Specialist Nephrology 11/26/23 Carissa Drake MD [address] [facility] [address] [place] [address] Neurologist Neurosurgery 11/26/23 Devon Olea MD [address] [facility] [address] [place] [address] Business Practices Officer Pulmonary Disease 11/26/23 [place], [facility] S Sleep Disorder [address] [place] [address] Consulting Physician Sleep Medicine 11/26/23 Carlo Chavez MD [address] [facility] [address] [place], [place] [id number] Surgeon Cardiothoracic Surgery 12/15/23
--- NOTE | 2024-09-26 13:00 | CT_ITS ---
FINAL REPORT TECHNIQUE: Axial images were obtained through the chest without contrast. Coronal and sagittal images were obtained and reviewed. This study was performed with techniques to keep radiation doses as low as reasonably achievable, (ALARA). Individualized dose reduction techniques using automated exposure control or adjustment of mA and/or kV according to the patient's size were employed. CLINICAL HISTORY: Lymphadenopathy COMPARISON: CTA 03/27/2024 FINDINGS: Previously noted lymph nodes have decreased in size. The partially calcified precarinal lymph node now measures 14 mm in the subcarinal lymph node now measures 13 mm. Markedly dense vascular calcification are noted of the aortic arch. The heart size is normal. There is no pericardial or pleural effusion. Limited images of the upper abdomen are unremarkable. Icdg-to-onntxrdq changes of centrilobular emphysema are noted. Previously noted consolidation in the right middle lobe has resolved. There is scarring at the left lung base. IMPRESSION: Dense vascular calcifications. Yptl-re-dodleqzz changes of centrilobular emphysema. Interval resolution of right middle lobe consolidation. Interval decrease in size of lymph nodes. Reviewed, Interpreted and Dictated by Haroon Osborn MD Transcribed by Maria Alejandra Lainez Authenticated and [facility]
== END 2024-09-26 23:59 | disposition home or self-care (01) ==
LOC: RAD 12:46
PROVIDERS: PCP Family Medicine; Visit Provider Internal Medicine Pulmonary Disease
DX: I70.90 Unspecified atherosclerosis (principal); J43.2 Centrilobular emphysema; R91.8 Other nonspecific abnormal finding of lung field; R59.0 Localized enlarged lymph nodes
CPT/HCPCS: 71250

== ENCOUNTER 2024-11-03 09:02 | Outpatient (CLI) | payer MEDICARE, MEDICAID, SELFPAY ==
--- OUTSIDE RECORDS SUMMARY | 2024-09-19 10:00 | XMS_ITS ---
Author Organization [facility] Address [facility] [address] [place] [id number] Care Team Providers Care Senior Project Manager Engineering Name Role Phone Mi Moore Unavailable [phone] Allergies Allergen (clinical drug ingredient) Drug/Non Drug Allergy documented on EMR Reaction Allergy Type Onset Date Status ciprofloxacin Cipro hives Drug Allergy Act angel Results Component Value Reference Range Notes Glycohemoglobin A1c (in hous e) Reviewed date:09/19/2024 05:12:44 PM Interpretation: Performing Lab: Notes/Report: glycohemoglobin 7.1% 5 - 6.5 % P-Comprehensive Metabolic Pa carlos (CMP) Reviewed date:10/14/2024 12:39:20 PM Interpretation:gluc 199, bun 37, Cr 1.44, gfr 38, alk phos 132 Performing Lab: Notes/Report: Test performed by [facility] [address] [place] [address] , [address], [place] [address] Papo Seals MD, Catalytic Converter Operator CLIA: [id number] Sodium 141 135-145 mmol/L Potassium 4.9 3.5-5.3 [...] 1.3 1.1-2.5 P-Microalbumin/Creatinine, R andom Urine Sample Reviewed date:10/14/2024 12:39:20 PM Interpretation:Normal Performing Lab: Notes/Report: Test performed by [facility] [address] [place] [address] , [address], [place] [address] Papo Seals MD, Catalytic Converter Operator CLIA: [id number] Albumin/Creatinine Ratio, Urine <8.19 0-30 ug/m g Microalbumin, Urine, Random <0.3 Creatinine, Urine 36.6 REASON FOR VISIT 2 weeks Medications Medication [...] MG as directed Orally Active Vital Signs Weight 164 lbs 09/19/2024 Blood pressure systolic 116 mm Hg 09/20/19 25 Blood pressure diastolic 70 mm Hg 025 Heart Rate 75 /min 09/19/2024 Height 61 in 09/19/2024 BMI 30.98 kg/m2 09/19/2024 Encounters Encounter Location Date Provider Diagnosis [facility] [address] [facility] [address] [facility] [address] [place] [id number] 09/19/2024 Mi Moore Type 2 diabetes mellitus [...] edema (ICD-10 - R60.0) Plan Of Treatment Next Appt Details Follow Up: 4 Weeks, Reason: Provider Name:Mi Crawford er, 12/22/2024 01:45:00 PM, [address] [facility] [address], [address], [place], [id number], Progress Notes * BRYAN AUGUSTDOB:1950 (74 yo F)Acc No.[id number]:09/19/2024 Progress Notes Patient: Rebel NARVAEZAugust Provider: Mi Moore M.D. :1950 A ge:74 Y S ex:Female Date:09/19/2024 Address:[address] [place] [address] Subjective: * Chief Complaints: * 1 . 2 weeks. * HPI: C ardiology: 74 year old female presents with c/o Leg Edema P t here for f/u on edema. Pt states she is Furosemide as directed. Pt states she saw Cardiology today and they said the echo [...] Kidney disease, Rheumatic fever, CAD, stent 06/2021, [facility], 02/17-02/26 [facility] COVID 19 and pneumonia, 03/01-03/12/22 [facility] for GI bleed.. * Surgical History: S tent to Left Main Coronary artery, [facility] 07/10/2021, Right total hip arthroplasty , Left total hip arthroplasty , Cervical spine surgery, C3-C7 arthrodesis and fusion of C3-C6 12/18/23, Percutaneous coronary intervention; mitral valve repair (TMVR) 07/08/2024. * Hospitalization/Major Diagno stic Procedure: N STEMI, COPD, stent to Left Main cornary artery 06/2021, [facility] Septic shock; sepsis;elevated LFT;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, [facility] Hosp: MV disease with TMVR by [...] Examination: General Appearance: N AD. In wheelchair. . H EENT:?unremarkable. O ral cavity: n o lesions, mucosa moist and WNL, no erythema. N heaven: s upple, no lymphadenopathy. C hest: n ormal shape and expansion. H eart: R SR. L ungs: d ecreased breath sounds. A bdomen: soft and nontender, no organomegaly or masses. N eurologic Exam: t remor of the hands a nd the head significantly improved?. S kin: n ormal, no rash. P [...] by Creatinine 38 L >59 - mL/min/1.73m2 * Deepa Acosta 10/15/19 12:39:13 PM EDT > See phone encounter ?LAB: P-Microalbumin/Creatinine, Random Urine Sample (Collection Date & Time - 09/19/2024 02:24 PM)?Normal* Value Reference Range A lbumin/Creatinine Ratio, Urine <8.19 0-30 - ug /mg * C reatinine, Urine 36.6 - mg/dL * M icroalbumin, Urine, Random <0.3 - mg/dL * Deepa Acosta 10/15/19 12:39:13 PM EDT > See phone encounter ?LAB: Glycohemoglobin A1c (in house) (Collection Date & Time - 09/19/2024)* Value Reference Range g lycohemoglobin 7.1% 5 - 6.5 % * Radha Sheehan 09/19/2024 02 :56:46 PM EDT > Provider reviewed results while patient in office. * Procedure Codes: G 2211 Complex e/[place], [address] GLYCATED HEMOGLOBIN TEST, Modifiers: QW , 1036F TOBACCO NON-USER, 3051F HG A1C>EQUAL 7.0%<8.0%, G8783 BP SCR PRFRM RCMDD DEFIND SCR INTVL, G8752 MOST RECENT SYSTOLIC BP < 140MM HG, G8754 MOST RECENT DIASTOLIC BP < 90MM HG * Follow Up: 4 Weeks * Images: Billing Information: * Visit Code: 95089 Office Visit, Est Pt., Level 3. * Procedure Codes: G2211 Complex e/[place]. [address] GLYCATED HEMOGLOBIN TEST. Modifiers: QW 1036F TOBACCO NON-USER. 3051F HG A1C>EQUAL 7.0%<8.0%. G8783 BP SCR PRFRM RCMDD DEFIND SCR INTVL. G8752 MOST RECENT SYSTOLIC BP < 140MM HG. G8754 MOST RECENT DIASTOLIC BP < 90MM HG. * Electronic signature of Mi Moore MD on 11/03/2024 at 09:06 AM EDT Sign off status: Pending * Provider: Mi Moore M.D. Date: 0 09/19/2024 Generated for Dai hannah/Kami/eTransmitting on: 0 11/03/2024 09:06 AM EDT History and Physical Notes * HPI (History of Present Illness) Category Sub-Category Detail Notes Category Not es Cardiology Leg Edema Pt here for f/u on edema. Pt states she is Furosemide as directed. Pt states she saw Cardiology today and they said the echo 08/31/24 was good. See report. EF 55% Examination Category Sub-Category Detail Notes Category Not es General Examination HEENT: unremarkable Heart: RSR Lungs: decreased breath shellie nds Abdomen: soft and nontender, no organomegaly or masses Extremities: 2++ leg edema General Appearance: NAD. In wheelchair. Skin: normal, no rash Neurologic Exam: tremor of the hands and the head significantly improved Neck: supple, no lymphaden opathy Oral cavity: no lesions, mucosa m oist and WNL, no erythema Peripheral pulses: normal Chest: normal shape and exp ansion
--- OUTSIDE RECORDS SUMMARY | 2024-09-19 20:00 | XMS_ITS | Clinical Summary ---
Author Organization Unknown Care Team Providers Care Word Processing Supervisor Name Role Phone SIERRA LAGUERRE, REED Unavailable Unavailable KIMBERLYN PT, ANT Unavailable Unavailable CHARLES AUTOMATIC RIVETING MACHINE OPERATOR, SHAE Unavailable Unavailpamela MONTEMAYOR ENGINEERING DIRECTOR, DARSHAN Unavailable Unavailable MARCO OT, SPENCER Unavailable Unavailable HUMBLE RN, NEAL Unavailable Unavailable Payers Payer Name Policy Type Policy Number Effective Date Expira tion Date [facility].[id number].[id number] H [id number] Problems Condition Name Condition Details Condition Category Status Onset Date Resolution Date Last Treatment Date Treating Clinician Comments OTHER SPECIFIED CHRONIC OBSTRUCTIVE PULMONARY DISEASE Active 08-08 00:00: 00 CHRONIC RESPIRATORY FAILURE WITH HYPOXIA Active 08-08 00:00: 00 HYP HRT AND CHR KDNY DIS W HRT FAIL AND STG 1-4/UNSP CHR KDNY Active 04-14 00:00: 00 RHEUMATIC HEART FAILURE Active 04-14 00:00: 00 UNSPECIFIED DIASTOLIC (CONGESTIVE) HEART FAILURE Active 04-14 00:00: 00 TYPE 2 DIABETES MELLITUS W DIABETIC CHRONIC KIDNEY DISEASE Active 04-14 00:00: 00 CHRONIC KIDNEY DISEASE, STAGE 3A Active 04-14 00:00: 00 ANEMIA IN CHRONIC KIDNEY DISEASE Active 04-14 00:00: 00 OTHER NONSPECIFIC ABNORMAL FINDING OF LUNG FIELD Active 04-14 00:00: 00 ATHSCL HEART DISEASE OF [place] CORONARY ARTERY W/O ANG PCTRS Active 04-14 00:00: 00 PAROXYSMAL ATRIAL FIBRILLATION Active 04-14 00:00: 00 TYPE 2 DIABETES MELLITUS WITH DIABETIC NEUROPATHY, UNSP Active 04-14 00:00: 00 RHEUMATIC MITRAL INSUFFICIENC Y Active 04-14 00:00: 00 SPINAL STENOSIS, CERVICAL REGION Active 04-14 00:00: 00 CONSTIPATION , UNSPECIFIED Active 04-14 00:00: 00 UNSPECIFIED OSTEOARTHRIT IS, UNSPECIFIED SITE Active 04-14 00:00: 00 SLEEP APNEA, UNSPECIFIED Active 04-14 00:00: 00 HYPERLIPIDEM IA, UNSPECIFIED Active 04-14 00:00: 00 DEPENDENCE ON SUPPLEMENTAL OXYGEN Active 04-14 00:00: 00 RN NEW GRAD (CURRENT) USE OF ANTITHROMBOT ICS/ANTIPLAT ELETS Active 04-14 00:00: 00 PENITENTIARY (CURRENT) USE OF ORAL HYPOGLYCEMIC DRUGS Active 04-14 00:00: 00 PENITENTIARY (CURRENT) USE OF INHALED STEROIDS Active 03-23 00:00: 00 PERSONAL HISTORY OF NICOTINE DEPENDENCE Active 04-14 00:00: 00 Allergies, Adverse Reactions, Alerts Allergy Name Allergy Type Status Severity Reaction(s) Onset Date Inactive Date Treating Clinician Comments PPD.... Propensity to adverse reactions Active 04-14 10:55: 47 ISOSORBIDE Propensity to adverse reactions Active 04-14 10:55: 51 LIPITOR Propensity to adverse reactions Active 04-14 10:56: 07 FOSAMAX Propensity to adverse reactions Active 04-14 10:56: 13 Medications Ordered Medication Name Filled Medication Name Start Date Stop Date Current Medication? Ordering Clinician Indication Dosage Frequency Signature (SIG) Comments Components bisoprolol fumarate 5 mg tablet 07-19 00:00: 00 05-09 23:59 :00 No [id number] BP 2 tablet DAILY 2 tablet DAILY (route: oral) Med Classific ation: Cardiovas cular Therapy Agents budesonide 0.5 mg/2 mL suspension for nebulizatio n 07-19 00:00: 00 05-09 23:59 :00 No [id number] SOA 1 mL EVERY 4 HOURS 1 mL EVERY 4 HOURS (route: inhalation ) Med Classific ation: Respirato ry Therapy Agents gabapentin 100 mg capsule 07-18 00:00: 00 05-09 23:59 :00 No [id number] NERVE PAIN 1 capsule 2 TIMES DAILY 1 capsule 2 TIMES DAILY (route: oral) Med Classific ation: Central Nervous System Agents Jardiance 10 mg tablet 07-18 00:00: 00 07-19 00:00 :00 No [id number] Per instruc tions Per instructio ns (route: oral) Med Classific ation: Endocrine pravastatin 20 mg tablet 07-18 00:00: 00 07-19 00:00 :00 No [id number] Per instruc tions Per instructio ns (route: oral) Med Classific ation: Cardiovas cular Therapy Agents amoxicillin 500 mg-potassiu m clavulanate 125 mg tablet 07-09 00:00: 00 07-09 23:59 :00 No [id number] INFECTION 1 tablet DAILY 1 tablet DAILY (route: oral) Med Classific ation: Anti-Infe ctive Agents amoxicillin 500 mg-potassiu m clavulanate 125 mg tablet 07-09 00:00: 00 07-09 23:59 :00 No [id number] INFECTION 1 tablet DAILY 1 tablet DAILY (route: oral) Med Classific ation: Anti-Infe ctive Agents prednisone 20 mg tablet 07-09 00:00: 00 07-19 00:00 :00 No [id number] Per instruc tions Per instructio ns (route: oral) Med Classific ation: Endocrine prednisone 20 mg tablet 07-09 00:00: 00 07-19 00:00 :00 No [id number] Per instruc tions Per instructio ns (route: oral) Med Classific ation: Endocrine Januvia 100 mg tablet 06-28 00:00: 00 07-19 00:00 :00 No [id number] Per instruc tions Per instructio ns (route: oral) Med Classific ation: Endocrine Januvia 100 mg tablet 06-28 00:00: 00 07-19 00:00 :00 No [id number] Per instruc tions Per instructio ns (route: oral) Med Classific ation: Endocrine montelukast 10 mg tablet 06-28 00:00: 00 07-19 00:00 :00 No [id number] Per instruc tions Per instructio ns (route: oral) Med Classific ation: Respirato ry Therapy Agents montelukast 10 mg tablet 06-28 00:00: 00 07-19 00:00 :00 No [id number] Per instruc tions Per instructio ns (route: oral) Med Classific ation: Respirato ry Therapy Agents bupropion HCl SR 150 mg tablet,12 hr sustained-r elease 07-19 00:00: 00 05-09 23:59 :00 No [id number] DEPRESSION 1 tablet 2 TIMES DAILY 1 tablet 2 TIMES DAILY (route: oral) Med Classific ation: Central Nervous System Agents clopidogrel 75 mg tablet 07-19 00:00: 00 05-09 23:59 :00 No [id number] BLOOD THINNER 1 tablet DAILY 1 tablet DAILY (route: oral) Med Classific ation: Hematolog ical Agents tramadol 37.5 mg-acetamin ophen 325 mg tablet 06-27 00:00: 00 07-19 00:00 :00 No [id number] Per instruc tions Per instructio ns (route: oral) Med Classific ation: Analgesic , Anti-infl ammatory or Antipyret ic albuterol sulfate HFA 90 mcg/actuati on aerosol inhaler 07-19 00:00: 00 05-09 23:59 :00 No [id number] SOA 2 puff EVERY 4 HOURS 2 puff EVERY 4 HOURS (route: inhalation ) Med Classific ation: Respirato ry Therapy Agents calcitonin (salmon) 200 unit/actuat ion nasal spray - 00:00: 00 05-09 23:59 :00 No [id number] SUPPLEMENT 1 spray DAILY 1 spray DAILY (route: nasal) Med Classific ation: Endocrine DILT-XR 180 mg capsule, extended release 07-19 00:00: 00 05-09 23:59 :00 No [id number] BP 1 capsule DAILY 1 capsule DAILY (route: oral) Med Classific ation: Cardiovas cular Therapy Agents DILT-XR 180 mg capsule, extended release 318 00:00: 00 07-19 00:00 :00 No [id number] Per instruc tions ONCE DAILY Per instructio ns ONCE DAILY (route: oral) Med Classific ation: Cardiovas cular Therapy Agents Dulera 200 mcg-5 mcg/actuati on HFA aerosol inhaler 18 00:00: 00 05-09 23:59 :00 No [id number] SOA 2 puff 2 TIMES DAILY 2 puff 2 TIMES DAILY (route: inhalation ) Med Classific ation: Respirato ry Therapy Agents ProAir HFA 90 mcg/actuati on aerosol inhaler 18 00:00: 00 07-19 00:00 :00 No [id number] Per instruc tions Per instructio ns (route: inhalation ) Med Classific ation: Respirato ry Therapy Agents ProAir HFA 90 mcg/actuati on aerosol inhaler 18 00:00: 00 07-19 00:00 :00 No [id number] Per instruc tions EVERY 4 TO 6 HOURS NEEDED Per instructio ns EVERY 4 TO 6 HOURS NEEDED (route: inhalation ) Med Classific ation: Respirato ry Therapy Agents Spiriva Respimat 2.5 mcg/actuati on solution for inhalation 16 00:00: 00 07-19 00:00 :00 No [id number] Per instruc tions Per instructio ns (route: inhalation ) Med Classific ation: Respirato ry Therapy Agents hydroxyzine HCl 25 mg tablet 3-08 00:00: 00 05-09 23:59 :00 No [id number] ITCHING 1 tablet TWICE DAILY 1 tablet TWICE DAILY (route: oral) Med Classific ation: Central Nervous System Agents hydroxyzine HCl 25 mg tablet 3-08 00:00: 00 07-19 00:00 :00 No [id number] Per instruc tions Per instructio ns (route: oral) Med Classific ation: Central Nervous System Agents bupropion HCl XL 150 mg 24 hr tablet, extended release 05-22 00:00: 00 07-09 23:59 :00 No [id number] DEPRESSION 1 tablet 2 TIMES DAILY 1 tablet 2 TIMES DAILY (route: oral) Med Classific ation: Central Nervous System Agents clopidogrel 75 mg tablet - 00:00: 00 07-19 23:59 :00 No [id number] BLOOD THINNER 1 tablet DAILY 1 tablet DAILY (route: oral) Med Classific ation: Hematolog ical Agents montelukast 10 mg tablet 05-22 00:00: 00 07-19 00:00 :00 No [id number] Per instruc tions Per instructio ns (route: oral) Med Classific ation: Respirato ry Therapy Agents tramadol 37.5 mg-acetamin ophen 325 mg tablet 05-21 00:00: 00 07-19 00:00 :00 No [id number] Per instruc tions Per instructio ns (route: oral) Med Classific ation: Analgesic , Anti-infl ammatory or Antipyret ic atorvastati n 20 mg tablet - 00:00: 00 07-09 23:59 :00 No [id number] CHOLESTEROL 1 tablet EVERY DAY 1 tablet EVERY DAY (route: oral) Med Classific ation: Cardiovas cular Therapy Agents atorvastati n 20 mg tablet 04-22 00:00: 00 07-09 23:59 :00 No [id number] CHOLESTEROL 1 tablet DAILY 1 tablet DAILY (route: oral) Med Classific ation: Cardiovas cular Therapy Agents Jardiance 10 mg tablet 07-19 00:00: 00 05-09 23:59 :00 No [id number] DM 1 tablet DAILY 1 tablet DAILY (route: oral) Med Classific ation: Endocrine cefdinir 300 mg capsule - 00:00: 00 04-14 00:00 :00 No [id number] Per instruc tions Per instructio ns (route: oral) Med Classific ation: Anti-Infe ctive Agents sulfamethox azole 800 mg-trimetho prim 160 mg tablet - 00:00: 00 04-22 23:59 :00 No [id number] ANTIBIOTIC 1 tablet 2 TIMES DAILY 1 tablet 2 TIMES DAILY (route: oral) Med Classific ation: Anti-Infe ctive Agents gabapentin 100 mg capsule 2023-03 00:00: 00 Yes [id number] PAIN 1 capsule 2 TIMES DAILY 1 capsule 2 TIMES DAILY (route: oral) Med Classific ation: Central Nervous System Agents Spiriva Respimat 1.25 mcg/actuati on solution for inhalation 2023-03 00:00: 00 Yes [id number] COPD Per instruc tions DAILY Per instructio ns DAILY (route: inhalation ) Med Classific ation: Respirato ry Therapy Agents sulfamethox azole 800 mg-trimetho prim 160 mg tablet 04-11 00:00: 00 04-14 00:00 :00 No [id number] Per instruc tions Per instructio ns (route: oral) Med Classific ation: Anti-Infe ctive Agents bisoprolol fumarate 5 mg tablet - 00:00: 00 Yes [id number] HEART 2 tablet DAILY 2 tablet DAILY (route: oral) Med Classific ation: Cardiovas cular Therapy Agents cefdinir 300 mg capsule 03-31 00:00: 00 04-14 00:00 :00 No [id number] Per instruc tions Per instructio ns (route: oral) Med Classific ation: Anti-Infe ctive Agents sulfamethox azole 800 mg-trimetho prim 160 mg tablet 03-31 00:00: 00 04-14 00:00 :00 No [id number] Per instruc tions Per instructio ns (route: oral) Med Classific ation: Anti-Infe ctive Agents gabapentin 100 mg capsule 2023-03 00:00: 00 04-14 00:00 :00 No [id number] Per instruc tions Per instructio ns (route: oral) Med Classific ation: Central Nervous System Agents Spiriva Respimat 1.25 mcg/actuati on solution for inhalation 2023-03 00:00: 00 04-14 00:00 :00 No [id number] Per instruc tions Per instructio ns (route: inhalation ) Med Classific ation: Respirato ry Therapy Agents albuterol sulfate HFA 90 mcg/actuati on aerosol inhaler 04-14 00:00: 00 Yes [id number] COPD 2 puff DAILY 2 puff DAILY (route: inhalation ) Med Classific ation: Respirato ry Therapy Agents clopidogrel 75 mg tablet 04-14 00:00: 00 Yes [id number] HEART 1 tablet DAILY 1 tablet DAILY (route: oral) Med Classific ation: Hematolog ical Agents ferrous sulfate 325 mg (65 mg iron) tablet 04-14 00:00: 00 Yes [id number] SUPPLEMENT 1 tablet 2 TIMES DAILY 1 tablet 2 TIMES DAILY (route: oral) Med Classific ation: Electroly te Balance-N utritiona l Products fluticasone propionate 50 mcg/actuati on nasal spray,suspe nsion 04-14 00:00: 00 Yes [id number] ALLERGIES 1 spray DAILY 1 spray DAILY (route: nasal) Med Classific ation: Respirato ry Therapy Agents furosemide 40 mg tablet 04-14 00:00: 00 Yes [id number] FLUID Per instruc tions DIRECTED Per instructio ns DIRECTED (route: oral) Med Classific ation: Cardiovas cular Therapy Agents levothyroxi ne 75 mcg tablet 04-14 00:00: 00 Yes [id number] THYROID 1 tablet DAILY 1 tablet DAILY (route: oral) Med Classific ation: Endocrine magnesium 400 mg (as magnesium oxide) tablet 04-14 00:00: 00 Yes [id number] SUPPLEMENT 1 tablet DAILY 1 tablet DAILY (route: oral) Med Classific ation: Electroly te Balance-N utritiona l Products oxygen gas for inhalation 04-14 00:00: 00 Yes [id number] OXYGEN 2 Liter NEEDED 2 Liter A S NEEDED (route: inhalation ) Med Classific ation: Medical Supplies and Durable Medical Equipment (DME) primidone 50 mg tablet 04-14 00:00: 00 Yes [id number] HEART 2 tablet BEDTIME 2 tablet BEDTIME (route: oral) Med Classific ation: Central Nervous System Agents sennosides 8.6 mg tablet 1-23 00:00: 00 08-01 23:59 :00 No [id number] CONSTIPATIO N 1 tablet DAILY 1 tablet DAILY (route: oral) Med Classific ation: Gastroint estinal Therapy Agents Farxiga 10 mg tablet 2-20 00:00: 00 Yes [id number] DIABETES HEART KIDNEYS 1 tablet DAILY 1 tablet DAILY (route: oral) Med Classific ation: Endocrine acetaminoph en 500 mg tablet - 00:00: 00 Yes [id number] ARTHRITIS PAIN 2 tablet 2 TIMES DAILY 2 tablet 2 TIMES DAILY (route: oral) Med Classific ation: Analgesic , Anti-infl ammatory or Antipyret ic Dulera 200 mcg-5 mcg/actuati on HFA aerosol inhaler 12-02 00:00: 00 Yes [id number] COPD 2 puff 2 TIMES DAILY 2 puff 2 TIMES DAILY (route: inhalation ) Med Classific ation: Respirato ry Therapy Agents Vital Signs Vital Name Observation Time Observation Value Commen ts Temperature 2024-09-20 14:45:00.000 98 [degF] Temperature 2024-09-14 13:33:00.000 97.8 [degF] Temperature 2024-09-06 14:49:00.000 98.6 [degF] Temperature 2024-08-25 14:54:00.000 97.8 [degF] Temperature 2024-08-19 14:02:00.000 97.9 [degF] Pulse 2024-09-20 14:45:00.000 72 /min Pulse 2024-09-14 13:33:00.000 65 /min Pulse 2024-09-06 14:49:00.000 75 /min Pulse 2024-08-25 14:54:00.000 68 /min Pulse 2024-08-19 14:02:00.000 82 /min O2 Saturation (%) 2024-09-20 14:45:00.000 94 % O2 Saturation (%) 2024-09-14 13:33:00.000 97 % O2 Saturation (%) 2024-09-06 14:49:00.000 95 % O2 Saturation (%) 2024-08-25 14:54:00.000 96 % O2 Saturation (%) 2024-08-19 14:02:00.000 99 % Respirations 2024-09-20 14:45:00.000 16 /min Respirations 2024-09-14 13:33:00.000 18 /min Respirations 2024-09-06 14:49:00.000 18 /min Respirations 2024-08-25 14:54:00.000 17 /min Respirations 2024-08-19 14:02:00.000 18 /min Weight (lbs) 2024-09-20 14:50:00.000 163 [lb_av] Weight (lbs) 2024-09-14 13:42:00.000 164.4 [lb_av] Weight (lbs) 2024-09-06 14:53:00.000 164 [lb_av] Weight (lbs) 2024-08-25 14:59:00.000 163.3 [lb_av] Weight (lbs) 2024-08-19 14:07:00.000 161 [lb_av] Systolic Blood Pressure 2024-09-20 14:45:00.000 106 mm [Hg] Systolic Blood Pressure 2024-09-14 13:33:00.000 116 mm [Hg] Systolic Blood Pressure 2024-09-06 14:49:00.000 106 mm [Hg] Systolic Blood Pressure 2024-08-25 14:54:00.000 104 mm [Hg] Systolic Blood Pressure 2024-08-19 14:02:00.000 118 mm [Hg] Diastolic Blood Pressure 2024-09-20 14:45:00.000 60 mm [Hg] Diastolic Blood Pressure 2024-09-14 13:33:00.000 76 mm [Hg] Diastolic Blood Pressure 2024-09-06 14:49:00.000 62 mm [Hg] Diastolic Blood Pressure 2024-08-25 14:54:00.000 64 mm [Hg] Diastolic Blood Pressure 2024-08-19 14:02:00.000 84 mm [Hg] Plan of Treatment Planned Activity Planned Date Details Comments Future Scheduled Test PT/ENGINEERING DIRECTOR TO PROVIDE GAIT TRAINING FOR IMPROVED MOBILITY AND /OR TO NORMALIZE GAIT PATTERN [code = PT/ENGINEERING DIRECTOR TO PROVIDE GAIT TRAINING FOR IMPROVED MOBILITY AND /OR TO NORMALIZE GAIT PATTERN] Future Scheduled Test THERAPEUTI C EXERCISES AND ESTABLISHING A HOME EXERCISE PROGRAM (PT/ENGINEERING DIRECTOR) [code = THERAPEUTIC EXERCISES AND ESTABLISHING A HOME EXERCISE PROGRAM (PT/ENGINEERING DIRECTOR)] Future Scheduled Test SIT TO/FRO M STAND TRANSFERS (PT/ENGINEERING DIRECTOR) [code = SIT TO/FROM STAND TRANSFERS (PT/ENGINEERING DIRECTOR)] Future Scheduled Test PT TO ASSE SS / ENGINEERING DIRECTOR TO MONITOR CARDIO/RESPIRATORY SYSTEM; AND NOTIFY THE PHYSICIAN AND/OR THE RN CLINICAL PRESS LOADER FOR PHYSICIAN NOTIFICATION FOR EARLY SIGNS AND SYMPTOMS OF EXACERBATION OR DETERIORATION. [code = PT TO ASSESS / ENGINEERING DIRECTOR TO MONITOR CARDIO/RESPIRATORY SYSTEM; AND NOTIFY THE PHYSICIAN AND/OR THE RN CLINICAL PRESS LOADER FOR PHYSICIAN NOTIFICATION FOR EARLY SIGNS AND SYMPTOMS OF EXACERBATION OR DETERIORATION.] Future Scheduled Test PT / ENGINEERING DIRECTOR T O MONITOR AND EDUCATE ON OXYGEN SATURATION DURING ADLS/IADLS, NOTIFY PHYSICIAN AND/OR THE RN CLINICAL PRESS LOADER FOR PHYSICIAN NOTIFICATION AND IF O2 SATS BELOW PHYSICIAN ORDERED PARAMETERS AFTER 10 MIN OF REST [code = PT / ENGINEERING DIRECTOR TO MONITOR AND EDUCATE ON OXYGEN SATURATION DURING ADLS/IADLS, NOTIFY PHYSICIAN AND/OR THE RN CLINICAL PRESS LOADER FOR PHYSICIAN NOTIFICATION AND IF O2 SATS BELOW PHYSICIAN ORDERED PARAMETERS AFTER 10 MIN OF REST] Future Scheduled Test PT / ENGINEERING DIRECTOR T O MONITOR FOR HYPO/HYPERGLYCEMIA AND CONDUCT ROUTINE FOOT INSPECTIONS. RECORD PATIENT REPORTED BLOOD SUGAR LEVELS AND NOTIFY PHYSICIAN AND/OR THE RN CLINICAL PRESS LOADER FOR PHYSICIAN NOTIFICATION IF BLOOD SUGAR LEVELS ARE OUTSIDE ORDERED PARAMETERS. TEACH PATIENT/CAREGIVER ON DAILY FOOT INSPECTIONS [code = PT / ENGINEERING DIRECTOR TO MONITOR FOR HYPO/HYPERGLYCEMIA AND CONDUCT ROUTINE FOOT INSPECTIONS. RECORD PATIENT REPORTED BLOOD SUGAR LEVELS AND NOTIFY PHYSICIAN AND/OR THE RN CLINICAL PRESS LOADER FOR PHYSICIAN NOTIFICATION IF BLOOD SUGAR LEVELS ARE OUTSIDE ORDERED PARAMETERS. TEACH PATIENT/CAREGIVER ON DAILY FOOT INSPECTIONS] Future Scheduled Test PT / ENGINEERING DIRECTOR M AY EDUCATE ON PAIN MANAGEMENT CLINICALLY INDICATED, INCLUDING NON-PHARMACOLOGICAL PAIN REDUCTION TECHNIQUES [code = PT / ENGINEERING DIRECTOR MAY EDUCATE ON PAIN MANAGEMENT CLINICALLY INDICATED, INCLUDING NON-PHARMACOLOGICAL PAIN REDUCTION TECHNIQUES] Future Scheduled Test AGENCY MAY PERFORM A RESUMPTION OF CARE VISIT FOLLOWING ANY HOSPITAL ADMISSION. PT TO EVALUATE, OBSERVE / ASSESS, AND MONITOR, ENGINEERING DIRECTOR TO OBSERVE AND MONITOR, PROVIDE SKILLED THERAPEUTIC INTERVENTION, ACTIVITY, EDUCATION, AND TRAINING TO ADDRESS; [code = AGENCY MAY PERFORM A RESUMPTION OF CARE VISIT FOLLOWING ANY HOSPITAL ADMISSION. PT TO EVALUATE, OBSERVE / ASSESS, AND MONITOR, ENGINEERING DIRECTOR TO OBSERVE AND MONITOR, PROVIDE SKILLED THERAPEUTIC INTERVENTION, ACTIVITY, EDUCATION, AND TRAINING TO ADDRESS;] Future Scheduled Test NEUROMUSCU LAR RE-EDUCATION / BALANCE / POSTURAL CONTROL (PT) [code = NEUROMUSCULAR RE-EDUCATION / BALANCE / POSTURAL CONTROL (PT)] Future Scheduled Test PT TO ASSE SS / ENGINEERING DIRECTOR TO MONITOR FOR AND REPORT EARLY SIGNS OF ANTICOAGULANT TOXICITY TO THE PHYSICIAN AND/OR THE RN CLINICAL PRESS LOADER FOR PHYSICIAN NOTIFICATION AND TO PROVIDE PATIENT/CAREGIVER EDUCATION ON ANTICOAGULANT THERAPY [code = PT TO ASSESS / ENGINEERING DIRECTOR TO MONITOR FOR AND REPORT EARLY SIGNS OF ANTICOAGULANT TOXICITY TO THE PHYSICIAN AND/OR THE RN CLINICAL PRESS LOADER FOR PHYSICIAN NOTIFICATION AND TO PROVIDE PATIENT/CAREGIVER EDUCATION ON ANTICOAGULANT THERAPY] Future Scheduled Test PT / ENGINEERING DIRECTOR T O EDUCATE ON COPD SELF-MANAGEMENT [code = PT / ENGINEERING DIRECTOR TO EDUCATE ON COPD SELF-MANAGEMENT] Future Scheduled Test PT TO ASSE SS / ENGINEERING DIRECTOR TO MONITOR FOR HEART FAILURE EXACERBATION AND RECORD PATIENT REPORTED WEIGHT, AND NOTIFY THE PHYSICIAN AND/OR THE RN CLINICAL PRESS LOADER FOR PHYSICIAN NOTIFICATION OF HF EXACERBATION (2LB WEIGHT GAIN IN 1 DAY, 5LBS IN A WEEK OR 5 LBS OVER BASELINE; INCREASED SOB, EDEMA, NEEDING MORE PILLOWS AT NIGHT, CRACKLES IN BASIS OF THE LUNGS OR PMI SHIFT) [code = PT TO ASSESS / ENGINEERING DIRECTOR TO MONITOR FOR HEART FAILURE EXACERBATION AND RECORD PATIENT REPORTED WEIGHT, AND NOTIFY THE PHYSICIAN AND/OR THE RN CLINICAL PRESS LOADER FOR PHYSICIAN NOTIFICATION OF HF EXACERBATION (2LB WEIGHT GAIN IN 1 DAY, 5LBS IN A WEEK OR 5 LBS OVER BASELINE; INCREASED SOB, EDEMA, NEEDING MORE PILLOWS AT NIGHT, CRACKLES IN BASIS OF THE LUNGS OR PMI SHIFT)] Goal 2024-06-09 Patient Goal - M EDWIN SURE SHE DOES HER EXERCISES RIGHT GET STRONGER EVERY DAY Goal 2024-08-08 Patient Goal - M EDWIN SURE SHE DOES HER EXERCISES RIGHT GET STRONGER EVERY DAY Goal 2024-09-20 Patient Goal - M EDWIN SURE SHE DOES HER EXERCISES RIGHT GET STRONGER EVERY DAY Goal Provider Goal - PT STG: AMB TO PROGRESS FROM SBA TO SUPERVISION ASSISTANCE AND FROM 90 TO 150 FT WITHIN 3 WEEKS. PT LTG: AMB TO PROGRESS TO IND AND SAFE X 250 FT WITHIN 6 WEEKS. PT LTG: PATIENT WILL DEMONSTRATE REDUCED FALL RISK EVIDENCED BY IMPROVED SELF- SELECTED WALKING SPEED (SSWS CUT SCORE 0.6 TO 0.9 INDICATES MODERATE FALL RISK, 0.6 M/S INDICATES HIGH FALL RISK) FROM 0.5 TO 0.7 M/S WITHIN 6 WEEKS. Goal Provider Goal - PT LTG: MARY LE'S TO PROGRESS FROM +3 TO -4/5 WITHIN 6 WEEKS IN ORDER TO SAFELY COMPLETE MOBILITY AND ADL'S. Goal Provider Goal - PT STG: PATIENT WILL DEMONSTRATE IMPROVED ABILITY TO PERFORM SIT TO/FROM STAND TRANSFERS TO REDUCE THE RISK OF SKIN BREAKDOWN AND REDUCE FALL RISK FROM SUPERVISION ASSISTANCE TO IND WITHIN 4 WEEKS. Goal Provider Goal - PT LTG: PATIENT WILL NOT EXPERIENCE CARDIAC OR RESPIRATORY COMPLICATIONS THROUGHOUT THE EPISODE OF CARE. Goal Provider Goal - PT LTG: PATIENT WILL MAINTAIN OXYGEN SATURATION WITHIN PHYSICIAN ORDERED PARAMETERS THROUGHOUT EPISODE OF CARE. Goal Provider Goal - PATIENTS BLOOD SUGAR WILL REMAIN WELL CONTROLLED WITH SELF-MANAGEMENT THROUGHOUT EPISODE OF CARE. Goal Provider Goal - PT GOAL: PATIENT WILL DEMONSTRATE UNDERSTANDING OF PAIN MANAGEMENT TECHNIQUES EVIDENCED BY REDUCED PAIN WITHIN 6 WEEKS. Goal Provider Goal - Goal Provider Goal - PT LTG: PATIENT WILL DEMONSTRATE REDUCED FALL RISK EVIDENCED BY TUG TEST (CUT SCORE >11 SECONDS INDICATES INCREASED FALL RISK) IMPROVING FROM 24 TO 20 SEC WITHIN 6 WEEKS. Goal Provider Goal - PT LTG: PATIENT WILL NOT EXHIBIT SIGNS AND SYMPTOMS OF ANTICOAGULANT TOXICITY THROUGHOUT EPISODE OF CARE. Goal Provider Goal - PT GOAL: THE PATIENT / CAREGIVER WILL DEMONSTRATE ADHERENCE TO COPD SELF-MANAGEMENT BY END OF EPISODE. Goal Provider Goal - PT GOAL: PATIENTS HEART FAILURE WILL REMAIN WELL CONTROLLED THROUGHOUT EPISODE OF CARE. Reason for Visit INDEPENDENT WITH USE OF ASSISTIVE DEVICE Encounters Start Date/Time End Date/Time Encounter Type Admission Type Attending [facility] Care Department Encounter ID Discharge Date Discharge Status Discharge Condition Discharge Reason Percent Goals Met 2024-08-12 00:00:00 2024-09-20 00:00:00 Outpatient RECERTIFIC [facility] [id number] 2024-09-20 00:00:00 DISCHARGE TO HOME OR SELF CARE INDEPENDEN T WITH USE OF ASSISTIVE DEVICE HH - GOALS MET 53.33
--- OUTSIDE RECORDS SUMMARY | 2024-10-04 07:44 | XMS_ITS ---
Author Organization [facility] Address [address] [place] [address] [address] [place], [place] [id number] Care Team Providers Care Internal Affairs Investigator Name Role Phone Mi Moore Unavailable [phone] REASON FOR VISIT due stephenie, col, dexa Encounters Encounter Location Date Provider Diagnosis [facility] [address] [facility] [address] [facility] [address] [place] [id number] 10/04/2024 Mi Moore Screening for osteoporosis Z13.820 Assessments Encounter Date Diagnosis (ICD Code) Assessment Notes Treatment Notes Treatment Clinical Notes Section Notes 10/04/2024 Screening for osteoporosis (ICD-10 - Z13.820) Plan Of Treatment Pending Test Test Name Order Date Bone density 10/04/2024 Next Appt Details Provider Name:Mi Crawford er, 12/22/2024 01:45:00 PM, [address], [facility] [place], [id number], Progress Notes * BRYAN, AUGUSTDOB:1950 (74 yo F)Acc No.[id number]:10/04/2024 Patient: KEIRY MURPHY :1950 A ge:74 Y S ex:Female Address:[address] [place] [address] [address], [place], [address] Subjective: * Chief Complaints: * D ue stephenie, col, dexa * Medical History: * Surgical History: * Hospitalization/Major Diagno stic Procedure: * Medications: Objective: * Vitals: * Physical Examination: Assessment: * Assessment: 1. S creening for osteoporosis - Z13.820 (Primary) Plan: * Treatment: * Procedure Codes: * true * Date: Generated for Dai hannah/Kami/Anjum on: 0 11/03/2024 09:07 AM EDT
--- OUTSIDE RECORDS SUMMARY | 2024-10-20 10:45 | XMS_ITS ---
Author Organization [facility] [address] [place] [id number] Care Team Providers Care Global Process Owner Name Role Phone Oscar Mi Tray Unavailable [phone] Allergies Allergen (clinical drug ingredient) Drug/Non Drug Allergy documented on EMR Reaction Allergy Type Onset Date Status ciprofloxacin Cipro hives Drug Allergy Act angel REASON FOR VISIT 1 month Medications Medication SIG (Take, Route, Frequency, Duration) Notes Start Date End Date Status Dulera 200-5 MCG/ACT 2 PUFFS INHALED TWICE A DAY; Duration: 30 Active Cefadroxil 500 MG 1 capsule Orally every 12 hrs; Duration: 5 day(s) 08/23/2024 Not-Taking Gabapentin 100 MG 1 cap(s) orally 2 times a day; Duration: 30 days 09/20/2024 Active Bisoprolol Fumarate 5 MG TAKE 2 TABLETS ORALLY ONCE A DAY; Duration: 90 Active Natural Senna Laxative 8.6 MG 1 tablets at bedtime as needed Orally Once a day 10/29/2022 Not-Taking FeroSul 325 (65 Fe) MG 1 tablet Orally twice a day; Duration: 90 days Active Furosemide 20 MG 1 tablet Orally twice a day; Duration: 30 days Active Primidone 50 MG TAKE 2 TABLETS BY MOUTH ONCE DAILY AT BEDTIME Orally At Bed Time; Duration: 30 days Active Clopidogrel Bisulfate 75 MG 1 tablet Orally Once a day; Duration: 30 days Active Farxiga 10 MG 1 tablet Orally Once a day 04/21/2024 Active Magnesium 400 MG as directed Orally Active Walker with Wheels as directed Hx of Falling Z91.81 05/23/2024 Active Levothyroxine Sodium 75 MCG 1 tablet in the morning on an empty stomach Orally Once a day Active Spiriva Respimat 1.25 MCG/ACT 2 PUFFS ONCE DAILY Inhalation Once a day Active Vital Signs Weight 165.0 lbs 10/20/2024 Blood pressure systolic 100 mm Hg 10/21/19 25 Blood pressure diastolic 52 mm Hg 025 Heart Rate 63 /min 10/20/2024 Height 61 in 10/20/2024 BMI 31.17 kg/m2 10/20/2024 Encounters Encounter Location Date Provider Diagnosis Sal [address] [facility] [address] [facility] [address] [place], [place] [id number] 10/20/2024 Mi Moore Type 2 diabetes ara itus with other circulatory complications E11.59 ; Status post angioplasty with stent Z95.820 ; Asthma J45.909 ; Iron deficiency anemia due to chronic blood loss D50.0 ; Tremor R25.1 and Hypothyroidism (acquired) E03.9 Assessments Encounter Date Diagnosis (ICD Code) Assessment Notes Treatment Notes Treatment Clinical Notes Section Notes 10/20/2024 Type 2 diabetes mellitus with other circulatory complications (ICD-10 - E11.59) 10/20/2024 Status post angioplasty with stent (ICD-10 - Z95.820) 10/20/2024 Asthma (ICD-10 - J45.909) 10/20/2024 Iron deficiency anemia due to chronic blood loss (ICD-10 - D50.0) 10/20/2024 Tremor (ICD-10 - R25.1) 10/20/2024 Hypothyroidism (acquired) (ICD-10 - E03.9) Plan Of Treatment Next Appt Details Follow Up: 2 Months, Reason: Provider Name:Mi Crawford , 12/22/2024 01:45:00 PM, [address] [facility] [address] [facility], [address], [place], [place], [id number], Progress Notes * BRYAN AUGUSTDOB:1950 (74 yo F)Acc No.[id number]:10/20/2024 Progress Notes Patient: Rebel NARVAEZ AUGUST Provider: Mi Moore M.D. :1950 A ge:74 Y S ex:Female Date:10/20/2024 Address:[address] [place], [place] [id number] Subjective: * Chief Complaints: * 1 . 1 month. * HPI: C ardiology: The pt is here today for a follow-up on lower extremity edema and renal insufficiency. Pt states she does have some shortness of breath with exertion. Pt states the swelling in her legs is doing better. 74 year old female presents with c/o Short of Breath w ith exertion. Denies : Chest Pain. D enies : Dizziness. D enies : Palpitations. N eurology: SHE CANNOT GET APPROVAL FOR MOTORIZED CHAIR WITH A HEADREST WHICH IS NEEDED S/P SPINAL FUSION!. * ROS: D ERMATOLOGY: no R noé. n o H nadya. G ASTROENTEROLOGY: no N ausea. n o V omiting. n o D iarrhea.? U ROLOGY: no D ifficulty urinating. n o B lood in urine. * Medical History: A sthma, Angina, Hypertension, Hyperlipidemia, Type 2 diabetes, Hyperthyroid, Allergic rhinitis, Kidney disease, Rheumatic fever, CAD, stent 06/2021, [facility], 02/17-02/26 [facility] COVID 19 and pneumonia, 03/01-03/12/22 [facility] for GI bleed.. * Surgical History: S tent to Left Main Coronary artery, [facility] 07/10/2021, Right total hip arthroplasty , Left total hip arthroplasty , Cervical spine surgery, C3-C7 arthrodesis and fusion of C3-C6 12/18/23, Percutaneous coronary intervention; mitral valve repair (TMVR) 07/08/2024. * Hospitalization/Major Diagno stic Procedure: N STEMI, COPD, stent to Left Main cornary artery 06/2021, [facility] Septic shock; sepsis;elevated LFT;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, [facility] Hosp: MV disease with TMVR by Dr Mejia 07/08-07/09/2024. * Family History: F ather: diagnosed with Hypertension, Diabetes, Heart Disease. M other: diagnosed with Hypertension, [...] DAILY Inhalation Once a day , Taking Farxiga 10 MG Tablet 1 tablet Orally Once a day , Taking Primidone 50 MG Tablet TAKE 2 TABLETS BY MOUTH ONCE DAILY AT BEDTIME Orally At Bed Time , Taking Clopidogrel Bisulfate 75 MG Tablet 1 tablet Orally Once a day , Taking FeroSul 325 (65 Fe) MG Tablet 1 tablet Orally twice a day , Taking Furosemide 20 MG Tablet 1 tablet Orally twice a day , Taking Gabapentin 100 MG Capsule 1 cap(s) orally 2 times a day , Taking Bisoprolol Fumarate 5 MG Tablet TAKE 2 TABLETS ORALLY ONCE A DAY , Taking Dulera 200-5 MCG/ACT Aerosol 2 PUFFS INHALED TWICE A DAY , Not-Taking Cefadroxil 500 MG Capsule 1 capsule Orally every 12 hrs , Not-Taking Natural Senna Laxative 8.6 MG Tablet 1 tablets at bedtime as needed Orally Once a day , Medication List reviewed and reconciled with the patient * Allergies: C ipro: hives. Objective: * Vitals: W t: 165.0, Temp: 98.1, BP: 100/52, HR: 63, O2 Sat: 95% on RA, Nurse: LISSETTE, Ht: 61, BMI:31.17. * Examination: G eneral Examination: General Appearance: [...] circulatory complications - E11.59 (Primary) 2 . S tatus post angioplasty with stent - Z95.820 3 . A sthma - J45.909 4 . I denys deficiency anemia due to chronic blood loss - D50.0 5 . T remor - R25.1 6 . H ypothyroidism (acquired) - E03.9 Plan: * Treatment: * Procedure Codes: G 2211 Complex e/m visit add on, 1036F TOBACCO NON-USER, 3051F HG A1C>EQUAL 7.0%<8.0%, G8783 BP SCR PRFRM RCMDD DEFIND SCR INTVL, G8752 MOST RECENT SYSTOLIC BP < 140MM HG, G8754 MOST RECENT DIASTOLIC BP < 90MM HG * Follow Up: 2 Months * Images: Billing Information: * Visit Code: 10027 Office Visit, Est Pt., Level 3. * Procedure Codes: G2211 Complex e/m visit add on. 1036F TOBACCO NON-USER. 3051F HG A1C>EQUAL 7.0%<8.0%. G8783 BP SCR PRFRM RCMDD DEFIND SCR INTVL. G8752 MOST RECENT SYSTOLIC BP < 140MM HG. G8754 MOST RECENT DIASTOLIC BP < 90MM HG. * Electronic signature of Mi Moore MD on 11/03/2024 at 09:08 AM EDT Sign off status: Pending * Provider: Mi Moore M.D. Date: 0 10/20/2024 Generated for Dai hannah/Kami/eTaguilarsmitting on: 0 11/03/2024 09:08 AM EDT History and Physical Notes * HPI (History of Present Illness) Category Sub-Category Detail Notes Category Not es Neurology SHE CANNOT GET APPROVAL FOR MOTORIZED CHAIR WITH A HEADREST WHICH IS NEEDED S/P SPINAL FUSION! Cardiology Short of Breath with exertion Chest Pain Palpitations Dizziness Examination Category Sub-Category [...]
--- NOTE | 2024-11-03 09:05 | XR_ITS ---
FINAL REPORT TECHNIQUE: Bone densitometry calculations of the lumbar spine and bilateral forearms were obtained. CLINICAL HISTORY: SCREENING COMPARISON: 01/24/2022 FINDINGS: Using L1-4, the bone mineral density of the spine is 1.086 g/cm2, corresponding to T-score of 0.4 and a Z score of 2.7. This is within the range of normal. Using the left forearm, the bone mineral density of the distal third is 0.497 g/cm2, corresponding to a T-score of -3.3 and a Z-score of -0.8. This is within the range of osteoporosis. Using the right forearm, the bone mineral density of the distal third is 0.404 g/cm?, corresponding to a T-score of -4.8 and a Z-score of -2.4. This is within the range of osteoporosis. NOTE: T-score: Standard deviation compared with peak bone mass of young adult mean. *Following the recommendations of the International Society of Bone densitometry, classification of hip BMD is based on the lower of two T-scores; total hip or femoral neck. IMPRESSION: 1. Bone mineral density of the lumbar spine within the range of normal. 2. Bone mineral density of the bilateral forearms within the range of osteoporosis. Reviewed, Interpreted and Dictated by Kamala De Jesus MD Transcribed by Jenny Lewis Authenticated and [facility]
--- OUTSIDE RECORDS SUMMARY | 2024-11-03 09:07 | XMS_ITS | Clinical Summary ---
Author Organization Healthcare Address [address] [place] [address] Care Team Providers Care Multigraph Operator Name Role Phone Dante Hutchinson MD Primary Care Provider [phone] Allergies Active Allergy Reactions Criticality Noted Date [...] wheezing or shortness of breath. 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 Standards of medical care in diabetes,2017. Diabetes Care.2017:40 (suppl 1):S1-S135. HbA1c assay performed by an ion-exchange chromatography method that is certified traceable to the DCCT. us Janet Kang MD LAB BLOOD ORDERABLES Final Res [facility] [address] [place] [address] from Last 3 Months or Most Recently Relevant to Health Maintenance Insurance [facility] MEDICARE [place] Advance Directives * Full Code (Latest Code Status on File) Date Activated Date Inactivated Comments 03/01/2022 4:41 PM 03/12/2022 5:02 PM Question Answer Comments Patient has decision-making capacity? Yes * Full Code Date Activated Date Inactivated Comments 02/14/2021 9:23 PM 02/21/2021 7:16 PM Question Answer Comments Patient has decision-making capacity? Yes Care Teams Multigraph Operator Relationship Specialty Start Date End Date Dante Hutchinson MD [address] [facility] [address] [place] [id number] [facility] - General 08/03/20
--- OUTSIDE RECORDS SUMMARY | 2024-11-03 09:07 | XMS_ITS | Patient Health Record ---
Author Organization [facility]-Kaylyn Address [address] [facility] 36 [facility] [address] [place] [id number] Care Team Providers Care Scallop Raker Name Role Phone Oscar Mi Tray Unavailable [phone] Tomasz Haney Unavailable [phone] AlmanzarNubia scott Unavailable [phone] Allergies Allergen (clinical drug ingredient) Drug/Non Drug [...] 44 Performing Lab: Notes/Report: Test performed by [facility], [employer] [facility] , [address], [place] [address] Papo Seals MD, Tank Pumper CLIA: [id number] Sodium 141 135-145 mmol/L Potassium 5.0 3.5-5.3 [...] Interpretation:Normal Performing Lab: Notes/Report: Test performed by [facility] [address] [place] [address] , [address], [place] [address] Papo Seals MD, Tank Pumper CLIA: [id number] TSH 2.03 0.43-5.25 mU/L Glycohemoglobin A1c (in hous e) Reviewed date:09/19/2024 05:12:44 PM Interpretation: Performing Lab: Notes/Report: glycohemoglobin 7.1% 5 - 6.5 % P-Comprehensive Metabolic Pa carlos (CMP) Reviewed date:10/14/2024 12:39:20 PM Interpretation:gluc 199, bun 37, Cr 1.44, gfr 38, alk phos 132 Performing Lab: Notes/Report: Test performed by [facility] [address] [place] [address] , [address], [place] [address] Papo Seals MD, Tank Pumper CLIA: [id number] Sodium 141 135-145 mmol/L Potassium 4.9 3.5-5.3 [...] Interpretation:Normal Performing Lab: Notes/Report: Test performed by [facility] [address] [place] [address] , [address], [place] [address] Papo Seals MD, Tank Pumper CLIA: [id number] Albumin/Creatinine Ratio, Urine <8.19 0-30 ug/mg Microalbumin, Urine, Random <0.3 Creatinine, Urine 36.6 P-Basic Metabolic Panel (BMP ) Reviewed date:09/19/2024 06:21:11 PM Interpretation: Performing Lab: Notes/Report: Test performed by [facility] [address] [place] [address] , [address], [place] [address] Papo Seals MD, Tank Pumper CLIA: [id number] Sodium 143 135-145 mmol/L Potassium 5.7 3.5-5.3 mmol/L Chloride 103 97-108 mmol/L CO2 27 22-32 mmol/L Glucose 197 65-99 mg/dL BUN 25 8-23 mg/dL Creatinine 1.25 0.50-1.00 mg/dL Calcium 9.5 8.6-10.4 mg/dL eGFR by Creatinine 45 >59 mL/min/1.73m2 CBC Venipuncture (in house) Reviewed date:09/16/2024 03:44:30 [...] - 38 platlet 301 100 - 400 H-TSH Reviewed date:03/30/2024 09:18:50 AM Interpretation: Performing [...] S- Susceptible I- Intermediate * Not on [facility] Quantify Moderate RX PEPE: R- Resistant S- Susceptible I- Intermediate * [facility]- [facility] S- Susceptible I- Intermediate * [facility]: R- Resistant S- Susceptible I- Intermediate * Not on [facility] Achromobacter specie s: REACTION RX PEPE: R- Resistant S- Susceptible I- Intermediate * Not on [facility] Amikacin 16 R RX PEPE: R- Resistant S- Susceptible I- Intermediate * Not on [facility] Aztreonam >16 R RX PEPE: R- Resistant S- Susceptible I- Intermediate * Not on [facility] Cefepime 8 S RX PEPE: R- Resistant S- Susceptible I- Intermediate * Not on [facility] Ceftazidime 8 S RX PEPE: R- Resistant S- Susceptible I- Intermediate * Not on [facility] Ceftriaxone 32 R RX PEPE: R- Resistant S- Susceptible I- Intermediate * Not on [facility] Ciprofloxacin 2 I RX PEPE: R- Resistant S- Susceptible I- Intermediate * Not on [facility] Gentamicin 4 R RX PEPE: R- Resistant S- Susceptible I- Intermediate * Not on [facility] Levofloxacin <=0.5 S RX PEPE: R- Resistant S- Susceptible I- Intermediate * Not on [facility] Tobramycin 4 R RX PEPE: R- Resistant S- Susceptible I- Intermediate * Not on [facility] Piperacillin/Tazobac redding <=2/4 S RX PEPE: R- Resistant S- Susceptible I- Intermediate * Not on [facility] RX PEPE: R- Resistant S- Susceptible I- Intermediate * Not on [facility] Glycohemoglobin A1c (in hous e) Reviewed date:01/15/2024 08:57:57 AM Interpretation: Performing Lab: Notes/Report: glycohemoglobin 6.9% 5 - 6.5 % P-Comprehensive Metabolic Pa carlos (CMP) Reviewed date:04/12/2024 09:45:00 AM Interpretation:gluc 103, bun 38, Cr 1.42, gfr 39 Performing Lab: Notes/Report: Test performed by [employer], [address] , [address], [place] [address] Papo Seals MD, Tank Pumper CLIA: [id number] Sodium 140 135-145 mmol/L Potassium 4.9 3.5-5.3 [...] <0.2 <0.2-1.2 mg/dL A/G Ratio 1.4 1.1-2.5 CBC Venipuncture (in house) Reviewed date:04/12/2024 09:45:00 [...] - 38 platlet 403 100 - 400 Reason For Referral Reason patient requests hel p with ADL's; just had mitral valve replacement at [facility] Diagnosis 1 Debility (R53.81) Referral Organization Sal Referring Provider First Name Nubia Referring Provider Last Name Jenelle Referring Provider Speciality Family Pra ctice Referred Provider Specialty Home Health Agency General Notes Lainey Carey 2024 02:20:38 PM > faxed to [facility] Referral Priority Routine Medications Medication SIG (Take, Route, Frequency, Duration) Notes Start Date End Date Status Accu-Chek Guide Me w/Device check glucose twice a day and once 2 hours post prandial 10/24/2024 Active Primidone 50 MG TAKE 2 TABLETS BY MOUTH ONCE DAILY AT BEDTIME Orally At Bed Time; Duration: 30 days Active Clopidogrel Bisulfate 75 MG 1 tablet Orally Once a day; Duration: 30 days Active Spiriva Respimat 1.25 MCG/ACT 2 PUFFS ONCE DAILY Inhalation Once a day Active Natural Senna Laxative 8.6 MG 1 tablets at bedtime as needed Orally Once a day 10/29/2022 Not-Taking Magnesium 400 MG as directed Orally Active Walker with Wheels as directed Hx of Falling Z91.81 05/23/2024 Active Dulera 200-5 MCG/ACT 2 PUFFS INHALED TWICE A DAY; Duration: 30 Active Levothyroxine Sodium 75 MCG 1 tablet in the morning on an empty stomach Orally Once a day Active Cefadroxil 500 MG 1 capsule Orally every 12 hrs; Duration: 5 day(s) 08/23/2024 Not-Taking Gabapentin 100 MG 1 cap(s) orally 2 times a day; Duration: 30 days 09/20/2024 Active Bisoprolol Fumarate 5 MG TAKE 2 TABLETS ORALLY ONCE A DAY; Duration: 90 Active Accu-Chek Strips check glucose twice a day and once 2 hours post prandial 10/24/2024 Active FeroSul 325 (65 Fe) MG 1 tablet Orally twice a day; Duration: 90 days Active Farxiga 10 MG 1 tablet Orally Once a day; Duration: 30 days Active Accu-Chek Softclix Lancets - check glucose twice a day and once 2 hours post prandial 10/24/2024 Active Furosemide 20 MG 1 tablet Orally twice a day; Duration: 30 days Active Immunizations Vaccine Route Administration Date Status Comme nts xFluzone High Dose-private (65yr&older) Unknown 12/28/2017 Administered xFluzone (6mos and older)-trivalent Unknown 01/07/2007 Administered xFlu shot- 6months-36 months of jpb-[id number]-XCCF-trivalent Unknown 01/08/2016 Administered Tetanus Tdap-Adacel (over 7yrs) [...] W/U Status Risk Notes Problem Essential hypertension (21511853) Essential (primary) hypertension (I10) Active confirmed Problem Peripheral circulatory disorder associated with diabetes mellitus (724617219) Type 2 diabetes mellitus with other circulatory complications (E11.59) Active confirmed Problem Hypothyroidism (14191130) Hypothyroidism (acquired) (E03.9) Active confirmed Problem Anemia (781284083) Anemia (D64.9) Active confir med Problem Tremor (12496596) Tremor (R25.1) Active confirm ed Problem Long-term current use of anticoagulant (843165671) 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 current use of anticoagulant (Z79.01) Active confirmed Problem Environmental allergy (225626240) Environmental allergies (Z91.048) Active confirmed Problem Asthma (967349738) Asthma (J45.909) Active conf irmed Problem BMI 30+ - obesity (008969383) BMI 32.0-32.9,adult (Z68.32) Active confirmed Problem Hypomagnesemia (592501897) Hypomagnesemia (E83.42) Active confirmed Problem Chronic respiratory failure (64802834) Chronic respiratory failure with hypoxia (J96.11) Active confirmed Problem Constipation (10208795) Constipation, unspecified constipation type (K59.00) Active confirmed Problem Cervical disc disease (343401037) Cervical disc disease (M50.90) Active confirmed Problem COPD - Chronic obstructive pulmonary disease (51630132) Chronic obstructive pulmonary disease, unspecified COPD type (J44.9) Active confirmed Problem Iron deficiency anemia due to chronic blood loss (832325524) Iron deficiency anemia due to chronic blood loss (D50.0) Active confirmed Problem Leukocytosis (029427227) Leukocytosis, unspecified type (D72.829) Active confirmed Problem Atrial fibrillation (64550083) PAF (paroxysmal atrial fibrillation) (I48.0) Active confirmed Problem Sleep apnea (43835792) Sleep apnea, unspecified type (G47.30) Active confirmed Problem Hyperlipidaemia (63295991) Hyperlipidemia, unspecified hyperlipidemia type (E78.5) Active confirmed Problem Pneumonia (309529502) Pneumonia of right middle lobe due to infectious organism (J18.9) Active confirmed Problem Atrial fibrillation (79343612) Atrial fibrillation with RVR (I48.91) Active confirmed Problem Mitral valve disorder (78138133) Mitral valve insufficiency, unspecified etiology (I34.0) Active confirmed Problem Chronic pain syndrome (439759972) Chronic pain disorder (G89.4) Active confirmed Problem Atherosclerotic heart disease of [place] coronary artery without angina pectoris (120943328375037) Atherosclerosis of [place] coronary artery without angina pectoris, unspecified whether [place] or transplanted heart (I25.10) Active confirmed Problem Heart valve disease (342105) Valvular disease (I38) Active confirmed Problem Asthma without status asthmaticus (94439876) Asthma, unspecified asthma severity, unspecified whether complicated, unspecified whether persistent (J45.909) Active confirmed Problem Type II diabetes mellitus without complication (091890369) Type 2 diabetes mellitus without complication, unspecified whether senior care insulin use (E11.9) Active confirmed Problem Heart failure (79972181) Congestive heart failure, unspecified HF chronicity, unspecified heart failure type (I50.9) Active confirmed Problem Diabetic peripheral neuropathy associated with type 2 diabetes mellitus (7500583445303) Type 2 diabetes mellitus with diabetic neuropathy, unspecified whether senior care insulin use (E11.40) Active confirmed Problem Status post angioplasty with stent (Z95.820) Active confirmed Problem Chronic kidney disease stage 3A (disorder) (871773507) Chronic kidney disease, stage 3a (N18.31) Active confirmed Problem Acute hemorrhagic gastritis (6646101) Gastrointestinal hemorrhage associated with acute gastritis (K29.01) Active confirmed Problem Laceration of ri ght lower extremity excluding thigh, subsequent encounter (N59.397O) Active confirmed Problem Anemia (411091722) Acute anemia (D64.9) Active confirmed Problem Cervical dystonia (79641019) Cervical dystonia (G24.3) Active confirmed Problem Chronic kidney disease stage 3B (disorder) (908800996) Chronic renal failure, stage 3b (N18.32) Active confirmed Vital Signs Heart Rate 63 /min 10/20/2024 Blood pressure diastolic 52 mm Hg 10/20/2024 Height 61 in 10/20/2024 Blood pressure systolic 100 mm Hg 10/20/2024 Weight 165.0 lbs 10/20/2024 BMI 31.17 kg/m2 10/20/2024 Encounters Encounter Location Date Provider [facility] [address] [id number] 11/09/2023 Mi Moore Cervical spinal sten osis M48.02 ; Cervical disc disease M50.90 ; Type 2 diabetes mellitus with other circulatory complications E11.59 ; Status post angioplasty with stent Z95.820 ; Tremor R25.1 ; correction current use of anticoagulant Z79.01 and Hypothyroidism (acquired) E03.9 [facility] [address] [id number] 01/14/2024 Mi Moore H/O cervical spine surgery Z98.890 ; Essential (primary) hypertension I10 ; Atherosclerosis of [place] coronary artery without angina pectoris, unspecified whether [place] or transplanted heart I25.10 ; Status post angioplasty with stent Z95.820 ; Tremor R25.1 ; Type 2 diabetes mellitus without complication, unspecified whether long winder tender insulin use E11.9 and Chronic respiratory failure with hypoxia J96.[facility] [address] [id number] 02/26/2024 Mi Moore Sebaceous cyst L72.3 ; Chronic obstructive pulmonary disease, unspecified COPD type J44.9 and Tremor R25.1 [facility] [address] [id number] 04/11/2024 Mi Moore Pneumonia of right middle lobe due to infectious organism J18.9 ; Essential (primary) hypertension I10 and Chronic renal failure, stage 3b N18.32 [facility] [address] [place] [address] [place] [id number] 05/16/2024 Mi Moore Tremor R25.1 and Cervical dystonia G24.3 [facility] [address] [place] [address] [place] [id number] 06/13/2024 Mi Moore Mitral valve insufficiency, unspecified etiology I34.0 and Type 2 diabetes mellitus with diabetic neuropathy, unspecified whether senior care insulin use E11.40 [facility] [address] [place] [id number] 07/18/2024 Nubia Almanzar Type 2 diabetes ara [...] pain disorder G89.4 [facility] [address] [place] [id number] 09/05/2024 Mi Moore S/P mitral valve rep air Z98.890 ; Localized edema R60.0 ; Valvular disease I38 ; Acute cough R05.1 ; Anemia D64.9 ; Hx: UTI (urinary tract infection) Z87.440 ; Chronic obstructive pulmonary disease, unspecified COPD type J44.9 and Type 2 diabetes mellitus with other circulatory complications E11.59 [facility] [address] [facility] [address] [place] [id number] 09/19/2024 Mi Moore Type 2 diabetes ara itus with other circulatory complications E11.59 ; Chronic kidney disease, stage 3a N18.31 and Localized edema R60.0 [facility] [address] [place], [place] [id number] 10/20/2024 Mi Moore Type 2 diabetes ara itus with other circulatory complications E11.59 ; Status post angioplasty with stent Z95.820 ; Asthma J45.909 ; Iron deficiency anemia due to chronic blood loss D50.0 ; Tremor R25.1 and Hypothyroidism (acquired) E03.9 [facility] [address] [place], [place] [id number] 11/12/2023 J Tray Moore [facility] [address] [place], [place] [id number] 12/01/2023 J Tray Moore [facility] [address] [place], [place] [id number] 01/13/2024 Mi Moore [facility] [address] [place], [place] [id number] 02/15/2024 Mi Moore Chronic pain disorde r G89.4 [facility] [address] [place], [place] [id number] 03/21/2024 Mi Moore [facility] [address] [place] [id number] 04/01/2024 Mi Moore [facility] [address] [place], [place] [id number] 04/12/2024 Mi Moore [facility] [address] [place] [id number] 04/28/2024 Mi Moore Tremor R25.1 [facility] [address] [place], [place] [id number] 05/23/2024 Mi Moore [facility] [address] [place], [place] [id number] 05/26/2024 Mi Moore Chronic pain disorde r G89.4 [facility] [address] [place], [place] [id number] 07/11/2024 J Tray Moore [facility] [address] [place], [place] [id number] 07/18/2024 Nubia Almanzar [facility] [address] [place], [place] [id number] 08/03/2024 Tomasz Crumpler Cervical disc diseas e M50.90 and Tremor R25.1 [facility] [address] [place], [place] [id number] 08/18/2024 Mi Moore [facility] [address] [place] [id number] 09/06/2024 Mi Moore [facility] [address] [place], [place] [id number] 09/20/2024 Mi Moore Anemia D64.9 and Cervical disc disease M50.90 [facility] [address] [place], [place] [id number] 10/04/2024 Mi Moore Screening for osteoporosis Z13.820 [facility] [address] [place], [place] [id number] 10/14/2024 Mi Moore [facility] [address] [place], [place] [id number] 10/21/2024 Mi Moore Assessments Encounter Date Diagnosis (ICD Code) Assessment Notes Treatment Notes Treatment Clinical Notes Section Notes 11/09/2023 Cervical disc disease (ICD-10 - M50.90) [...] diabetes mellitus with diabetic neuropathy, unspecified whether long winder tender insulin use (ICD-10 - E11.40) Continue present [...] - N18.31) 09/20/2024 Anemia (ICD-10 - D64.9) 10/04/2024 Screening for osteoporosis (ICD-10 - Z13.820) 10/20/2024 Type 2 diabetes mellitus with other circulatory complications (ICD-10 - E11.59) 09/20/2024 Cervical disc disease (ICD-10 - M50.90) 09/19/2024 Localized edema (ICD-10 - R60.0) 09/05/2024 Acute cough (ICD-10 - R05.1) 09/05/2024 Anemia (ICD-10 - D64.9) 10/20/2024 Status post angioplasty with stent (ICD-10 - Z95.820) 08/03/2024 Tremor (ICD-10 - R25.1) 07/18/2024 Tremor (ICD-10 - R25.1) has FU with Neurosurgery 02/26/2024 Tremor (ICD-10 - R25.1) 04/11/2024 Chronic renal failure, stage 3b (ICD-10 - N18.32) 01/14/2024 Atherosclerosis of [place] coronary artery without angina pectoris, unspecified whether [place] or transplanted heart (ICD-10 - I25.10) 11/09/2023 Type 2 diabetes mellitus with other circulatory complications (ICD-10 - E11.59) 11/09/2023 Status post angioplasty with stent (ICD-10 - Z95.820) 07/18/2024 Debility (ICD-10 - R53.81) requests referral with [facility] or another agency for assistance with ADL, home care and food prep 01/14/2024 Status post angioplasty with stent (ICD-10 - Z95.820) 10/20/2024 Asthma (ICD-10 - J45.909) 09/05/2024 Hx: UTI (urinary tract infection) (ICD-10 - Z87.440) 10/20/2024 Iron deficiency anemia due to chronic blood loss (ICD-10 - D50.0) 07/18/2024 Hypomagnesemia (ICD-10 - E83.42) 09/05/2024 Chronic obstructive pulmonary disease, unspecified COPD type (ICD-10 - J44.9) 01/14/2024 Tremor (ICD-10 - R25.1) 11/09/2023 Tremor (ICD-10 - R25.1) 11/09/2023 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 current use of anticoagulant (ICD-10 - Z79.01) 01/14/2024 Type 2 diabetes mellitus without complication, unspecified whether long winder tender insulin use (ICD-10 - E11.9) 09/05/2024 Type 2 diabetes mellitus with other circulatory complications (ICD-10 - E11.59) 07/18/2024 Chronic renal failure, stage 3b (ICD-10 - N18.32) 10/20/2024 Tremor (ICD-10 - R25.1) 10/20/2024 Hypothyroidism (acquired) (ICD-10 - E03.9) 07/18/2024 PAF (paroxysmal atrial fibrillation) (ICD-10 - I48.0) taking ASA 81 mg qd 01/14/2024 Chronic respiratory failure with hypoxia (ICD-10 - J96.11) 11/09/2023 Hypothyroidism (acquired) (ICD-10 - E03.9) 07/18/2024 Hypothyroidism (acquired) (ICD-10 - E03.9) 07/18/2024 [...] Name:Mi Crawford er, 12/22/2024 01:45:00 PM, [address], [place], [place], [id number], Insurance Providers Payer Name Payer Address Payer Phone Subscriber Number Group Number Insured Name Patient Relationship to Insured Coverage Start Date Coverage End Date [employer] [address] [address] [place], [place] [id number] [place] BRYANAugust Self - patient is the insured MEDICA[employer] [address] [place] [address] [id number] BRYANAugust Self - patient is the insured Medical (General) History Medical History History ICD Code asthma angina hypertension hyperlipidemia type 2 diabetes hyperthyroid allergic rhinitis kidney disease rheumatic fever CAD, stent 06/2021, [facility] 02/17-02/[address] [facility] COVID 19 and pneumonia 03/01-03/12/22 [facility] for GI bleed. Surgical History Surgery Date(Month/Year) Stent to Left Main Coronary artery, [facility] 07/10/2021 Right total hip arthroplasty Left total hip arthroplasty Cervical spine surgery, C3-C7 arthrodesi s and fusion of C3-C6 12/18/23 Percutaneous coronary intervention; mitr al valve repair (TMVR) 07/08/2024 Hospitalization History Reason Date(Month/Year) [facility]: MV disease with TMVR by Dr Mejia 07/08-07/09/[address] [facility] Septic shock; sepsis;jh vated LFT;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 NSTEMI, COPD, stent to Left Main cornary artery 06/2021
--- OUTSIDE RECORDS SUMMARY | 2024-11-03 09:08 | XMS_ITS | Encounter Summary ---
Author Organization Healthcare Address [address] [place] [address] Care Team Providers Care Kindergarten Prep Teacher Name Role Phone Dante Hutchinson MD Primary Care Provider [phone] Encounter Details Date Type Department Care Team (Late st Contact Info) Description 03/03/2022 Lab Requisition [facility] [address] [place] [address] Yola Cruz MD [address] [facility] 7th [facility] [address] [place] [address] Encounter for general adult medical [...] drink first t judy in the morning ([employer] OFFICER) to steady your nerves or to get [...] No Risk Indicated 03/06/2022 8:00 PM EST Chciho Brumfield RN * Question Answer Date of [...] ORDERABLES Final Result [facility] [address] [place] [address] documented in this encounter Visit Diagnoses Diagnosis Encounter for general adult medical examination without abnormal findings documented in this encounter Additional Health Concerns Infection Onset Date Last Indicated Resolved Time COVID 19 (Confirmed) Comment:IPA has verified patient has a COVID-19 positive result. A chart review has been completed, EPI PUI has been completed and sent to appropriate Health Dept. [facility] Forensic Materials Engineer: Portillo Arias Previous test documentation in media tab. See IPAC note - Leilanibong Jaquelin 02/16/2022 03/01/2022 03/05/2022 10:57 AM EST documented as of this encounter Care Teams Kindergarten Prep Teacher Relationship Specialty Start Date End Date Dante Hutchinson MD [address] [facility] [address] [place] [address] PCP - General 08/03/20 documented as of this encounter
--- OUTSIDE RECORDS SUMMARY | 2024-11-03 09:08 | XMS_ITS | Clinical Summary ---
Author Organization [facility] Address [address] [place] [address] Phone Care Team Providers Care Patent Searcher Name Role Phone Jc LAGUERRE, Mani [facility] [ ] Conditions or Problems Problem Name Problem Code Onset Date Status Entry Date Provider Comment Standard Description Annotate Chronic kidney disease stage 3 444122272 (SNOMED CT) 08/20 Active 08/20 Grace funez GENERAL MANAGER IN TRAINING Chronic kidney disease stage 3 RIGHT WILIAN INFECTION T84.50xD (ICD-10-CM ) 06/24 Active 06/24 Katerin Douglas Infection and inflammatory reaction due to unspecified internal joint prosthesis, subsequent encounter TOBACCO ABUSE 01164679 (SNOMED CT) Active Mani Greene MD Tobacco dependence syndrome OBESITY 175332124 (SNOMED CT) Active Janine Z Obesity 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 (ICD-10-CM ) 06/24 Active 06/24 Lexi W Other hereditary and idiopathic neuropathies MRSA 870815140 (SNOMED CT) 06/24 Active 06/24 Lexi W [...] encounter METHICILLIN RESISTANT STAPHYLOCOC CUS AUREUS INFECTION 037658131 (SNOMED CT) 06/24 Correction 06/24 Anetra D Forrester Methicillin resistant Staphylococcus aureus infection E COLI INFECTION 66472945 (SNOMED CT) 06/24 Active 06/24 Anetra D Forrester Infection caused by Escherichia coli HIP JOINT REPLACEMENT Z96.649 (ICD-10-CM ) 06/24 Active 06/24 Anetra D Forrester Presence of unspecified artificial hip joint OTHER SPECIFIED IDIOPATHIC PERIPHERAL NEUROPATHY 90222799 (SNOMED CT) 06/24 Correction 06/24 Anetra D Forrester Idiopathic peripheral neuropathy DIABETES MELLITUS 49048423 (SNOMED CT) 06/24 Active 06/24 Anetra D Forrester Diabetes mellitus Medications Medication Instructions Start Date Stop Date Generic Name NDC Provider RANEXA 500 MG ORAL TABLET EXTENDED RELEASE 12 HOUR 1 tablet twice daily. 08/20 RANOLAZINE [id number] Grace funez APRN CLOPIDOGREL BISULFATE 75 MG TABS daily 08/20 CLOPIDOGREL BISULFATE 15849667815 Grace funez APRN HYDROCHLOROTHIAZIDE 25 MG TABS 05/08 HYDROCHLOROTHIAZIDE 60911988642 Grace funez APRN BACTRIM DS 800-160 MG TABS Take one by mouth daily 08/20 SULFAMETHOXAZOLE-TR IMETHOPRIM 61103717581 Grace funez APRN LISINOPRIL 5 MG TABS 05/08 LISINOPRIL 99333261561 Grace funez APRN METFORMIN HCL 500 MG TABS 3X per day 08/20 METFORMIN HCL 34514580526 Grace funez APRN BACTRIM DS 800-160 MG TABS take 1 po daily 11/21 SULFAMETHOXAZOLE-TR IMETHOPRIM 42653552016 Mani Greene MD BACTRIM DS 800-160 MG TABS Take one by mouth daily 06/21 SULFAMETHOXAZOLE-TR IMETHOPRIM 61409547819 Mani Reagan SOLN sliding scale 01/11 INSULIN REGULAR HUMAN SOLN 38892391269 Mani Greene MD PREDNISONE 10 MG TABS 01/11 PREDNISONE 15397648818 Mani Greene MD METFORMIN HCL 500 MG TABS 3X per day 08/20 METFORMIN HCL 07944911766 Mani Greene MD ZETIA 10 MG TABS 05/08 EZETIMIBE 27397365426 Mani Greene MD NAPROSYN TABS NAPROXEN TABS 75666345744 Janine Paul HUMULIN R SOLN sliding scale 09/20 INSULIN REGULAR HUMAN SOLN 62868573553 Janine Paul PREDNISONE 10 MG TABS 01/11 PREDNISONE 50175247004 Janine Paul GLIPIZIDE ER 10 MG [id number] 05/08 GLIPIZIDE 96740525845 Lexi W TRAMADOL-ACETAMINOPH EN 37.5-325 MG TABS 04/07 TRAMADOL-ACETAMINOP HEN 29888129005 Lexi W METOPROLOL SUCCINATE ER 50 MG [id number] 05/08 METOPROLOL SUCCINATE 24097418205 Lexi W HYDROCHLOROTHIAZIDE 25 MG TABS 05/08 HYDROCHLOROTHIAZIDE 59491083085 Lexi W FUROSEMIDE 20 MG TABS 05/08 FUROSEMIDE 70795166656 Lexi W FLUTICASONE PROPIONATE 50 MCG/ACT SUSP 11/05 FLUTICASONE PROPIONATE 42813255479 Lexi W CALCITONIN (SALMON) 200 UNIT/ACT SOLN 05/08 CALCITONIN (SALMON) 23034653231 Lexi W ZETIA 10 MG TABS 05/08 EZETIMIBE 28258880883 Lexi W SULFAMETHOXAZOLE-TRI METHOPRIM 800-160 MG TABS 05/21 SULFAMETHOXAZOLE-TR IMETHOPRIM 56622412916 Lexi W PROAIR HFA 108 (90 Base) MCG/ACT INHALATION AEROSOL SOLUTION 06/22 ALBUTEROL SULFATE 29617945770 Lexi W POTASSIUM CHLORIDE ER 10 MEQ CR-CAPS 05/22 POTASSIUM CHLORIDE 88645404127 Lexi W METFORMIN HCL 500 MG TABS 05/22 METFORMIN HCL 50606754156 Lexi W LISINOPRIL 5 MG TABS 05/08 LISINOPRIL 57633034850 Lexi W GABAPENTIN 100 MG CAPS 05/21 GABAPENTIN 64091153923 Lexi W BUPROPION HCL ER (XL) 150 MG [id number] 05/08 BUPROPION HCL 47097057798 Lexi W ATORVASTATIN CALCIUM 20 MG TABS 05/08 ATORVASTATIN CALCIUM 44725100899 Lexi W BACTRIM DS 800-160 MG TABS take 1 po daily 11/21 SULFAMETHOXAZOLE-TR IMETHOPRIM 11640037911 Mani Greene MD TRIAMCINOLONE ACETONIDE 0.1 % CREA apply as directed bid 11/21 TRIAMCINOLONE ACETONIDE 87709914626 Mani Greene MD Medications Administered No information [...] Date CPT-Cooral Continue oral antibiotics 20 04/02/05 CPT-91555 CMP [id number] CBC with Differential 2014 CPT-25707 C- reactive protein CPT-18102 Sedimentation Rate (ESR) 201 07/31/04 CPT-Cooral Continue oral antibiotics 20 03/01/23 CPT-18241 CMP CPT-97554 CBC with Differential CPT-59627 C- reactive protein CPT-Cooral Continue oral antibiotics [...]
--- OUTSIDE RECORDS SUMMARY | 2024-11-03 09:09 | XMS_ITS | Clinical Summary ---
Author Organization [facility] Address [address] [place] [address] Care Team Providers Care Television Writer Name Role Phone Dante uHtchinson MD Primary Care Provider [phone] Allergies Active Allergy Reactions Criticality Noted Date Comments Ciprofloxacin Unknown - High Severity 2 Tuberculin, Ppd Unknown - High Severity 022 Medications gabapentin (NEURONTIN) 100 MG capsule Take 1 capsule by mouth 2 (Two) Times a Day. 60 capsule 5 2 Active acetaminophen (TYLENOL) 500 MG tablet Take 500 mg by mouth Every 4 (Four) Hours As Needed for Mild Pain. Active albuterol sulfate HFA 108 (90 Base) MCG/ACT inhaler Inhale Every 6 (Six) Hours As Needed for Wheezing. Active amiodarone (PACERONE) 200 MG tablet Take 200 mg by mouth Daily. Active bisoprolol (ZEBeta) 10 MG tablet Take 10 mg by mouth Daily. Active Zinc Oxide (Boudreauxs Butt Paste) 16 % ointment Apply 1 application topically 3 (Three) Times a Day As Needed. Active Cholecalciferol 25 MCG (1000 UT) tablet Take 1,000 Units by mouth Daily. Active clopidogrel (PLAVIX) 75 MG tablet Take 75 mg by mouth Daily. Active dilTIAZem CD (CARDIZEM CD) 180 MG 24 hr capsule Take 180 mg by mouth Daily. Active mometasone-formo terol (DULERA 200) 200-5 MCG/ACT inhaler Inhale 2 puffs 2 (Two) Times a Day. Active fluticasone (FLONASE) 50 MCG/ACT nasal spray 1 spray into the nostril(s) as directed by provider Daily. Active furosemide (LASIX) 20 MG tablet Take 20 mg by mouth Daily. Active gabapentin (NEURONTIN) 100 MG capsule Take 100 mg by mouth 2 (Two) Times a Day. Active glucosamine sulfate 500 MG capsule capsule Take by mouth 2 (Two) Times a Day. Active hydrOXYzine (ATARAX) 25 MG tablet Take 25 mg by mouth 2 (Two) Times a Day. Active SITagliptin (JANUVIA) 100 MG tablet Take 100 mg by mouth Daily. Active empagliflozin (JARDIANCE) 10 MG tablet tablet Take by mouth Daily. Active magnesium oxide (MAG-OX) 400 MG tablet Take 400 mg by mouth Daily. Active metFORMIN (GLUCOPHAGE) 500 MG tablet Take 500 mg by mouth 2 (Two) Times a Day With Meals. Active montelukast (SINGULAIR) 10 MG tablet Take 10 mg by mouth Every Night. Active nitroglycerin (NITROSTAT) 0.[address] 0.4 mg under the tongue Every 5 (Five) Minutes As Needed for Chest Pain. Take no more than 3 doses in 15 minutes. Active pantoprazole (PROTONIX) 40 MG EC tablet Take 40 mg by mouth Daily. Active polyethylene glycol (MiraLax) 17 GM/SCOOP powder Take 17 g by mouth Daily. Active potassium chloride (K-DUR,KLOR-CON) 10 MEQ ER tablet Take 10 mEq by mouth Daily. Active pyridoxine (VITAMIN B-6) 100 MG tablet Take 100 mg by mouth Daily. Active rosuvastatin (CRESTOR) 40 MG tablet Take 40 mg by mouth Daily. Active senna 8.6 MG tablet Take 2 tablets by mouth Daily. Active Vitamin E 268 MG (400 UNIT) capsule Take 1 capsule by mouth Daily. Active buPROPion XL (WELLBUTRIN XL) 150 MG 24 hr tablet Take 150 mg by mouth Daily. Active tiotropium bromide monohydrate (SPIRIVA RESPIMAT) 2.5 MCG/ACT aerosol solution inhaler Inhale 2 puffs Daily. 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 03/13/2022 Mixed hyperlipidemia 03/13/2022 Essential (primary) hypertension 03/13/2022 Depression, unspecified 03/13/2022 Anxiety disorder, unspecified 03/13/2022 Obesity, unspecified 03/13/2022 Immunizations Immunization Administration Dates Next Due Fluzone High-Dose 65+YRS 12/28/2017 Social History Tobacco Use Types Packs/Day Years Used Date Smoking Tobacco: Every Day Cigarettes Smokeless Tobacco: Never Tobacco Cessation:Ready to Q uit: Not Asked; Counseling Given: Not Answered Alcohol Use Standard Drinks/Week Comments Never 0 (1 standard drink = 0.6 oz pur e alcohol) Abuse Screen Answer Date Recorded Unsafe at Home or Work/School Not on file Feels Threatened by Someone? Not on file 11/2022 Does Anyone Keep You from Co ntacting Others or Doint Things Outside the Home? Not on file 12/29/2022 Physical Sign of Abuse Present Not on file 1 Housing Stability Answer Date Recorded Current Living Arrangements Not on file 11/2022 Potentially Unsafe Housing Conditions Not on kartik e 12/29/2022 Family and Community Support Answer John e Recorded Help with Day-to-Day Activities Not on file 12/29/2022 Lonely or Isolated Not on file 12/29/2022 Employment Answer Date Recorded Do you want help finding or keeping work or a davida b? Not on file 12/29/2022 Disabilities Answer Date Recorded Concentrating, Remembering, or Making Decisions Difficulty Not on file 12/29/2022 Doing Errands Independently Difficulty Not on fi le 12/29/2022 Education Answer Date Recorded Help with school or training? Not on file Preferred Language Not on file 12/29/2022 Comments Unknown Sex and Gender Information Value Date Recorded Sex Assigned at Not on file Legal Sex Female 12:38 PM EDT Gender Identity Not on file Sexual Orientation Not on file Last Filed Vital Signs Vital Sign Reading Time Taken Comments Blood Pressure 126/70 03/13/2022 10:09 AM EST Pulse 94 03/13/2022 10:09 AM EST Temperature 36.4 C (97.6 F) 03/13/2022 10:09 AM EST Respiratory Rate 16 03/13/2022 10:09 AM EST Oxygen Saturation 93% 03/13/2022 10:09 AM EST Inhaled Oxygen Concentration - - Weight 85.7 kg (189 lb) 03/13/2022 10:09 AM EST Height - - Body Mass Index - - Plan of Treatment Health Maintenance Due Date Last Done Comments DXA SCAN 1950 MAMMOGRAM 1990 COLOGUARD 07/07/1995 COLON CANCER SCREENING 5 YEA R SIGMOIDOSCOPY 07/07/1995 COLONOSCOPY 07/07/1995 COLORECTAL CANCER SCREENING 07/07/1995 CT COLONOGRAPHY 07/07/1995 FECAL OCCULT BLOOD TEST 07/07/1995 FIT Testing (1 year) 07/07/1995 ZOSTER VACCINE (1 of 2) 2000 LIPID PANEL 07/02/2016 07/03/2015 ANNUAL PHYSICAL 12/28/2017 HEPATITIS C SCREENING 12/28/2017 COVID-19 Vaccine (2 - 2023-2 5 season) 2023 06/20/2020 INFLUENZA VACCINE 12/21/2024 12/11/2022, , 12/28/2017, Additional history exists TDAP/TD VACCINES (2 - Td or Tdap) 02/06/2033 023 HEMOGLOBIN A1C Discontinued 02/14/2021, 01/22, 07/03/2015 Pneumococcal Vaccine 50+ Completed 01/15/2022, 12/22 Procedures Procedure Name Priority Date/Time Associated Diagnosis Comments HEMOGLOBIN A1C Routine 07/03/2015 11:30 AM EDT LIPID PANEL Routine 07/03/2015 11:30 AM EDT from Last 3 Months or Most Recently Relevant to Health Maintenance Results * Hemoglobin A1c (07/03/2015 11:30 AM EDT) Hemoglobin A1C 6.0 4.00 - 6.00 % [facility] Comment: The [place] recommends maintenance of Hemoglobin A1C at 7.0% or lower. Goals for Hemoglobin A1C reduction may need to be modified if hypoglycemia is a problem. Mean Bld Glu Estim. 120 mg/dL [facility] Blood specimen (specimen) 07/03/2015 11:30 AM EDT 07/03/2015 11:38 AM EDT [facility] - 07/03/2015 2:34 PM EDT Specimen Type : Blood Sukhwinder Shanks MD LAB BLOOD ORDERABLES Final Res ult Performing Organization Address City/[facility]/ZIP Co de Phone Number [facility]
[address] [place] [address], * Lipid panel (07/03/2015 11:30 AM EDT) Total Cholesterol 139 0 - 200 mg/dL [facility] Comment: Cholesterol Reference Ranges: Desirable: less than 200 mg/dL Borderline: 200-239 mg/dL High: greater than 239 mg/dL Triglycerides 133 0 - 150 mg/dL [facility] Comment: Triglyceride Reference Ranges: Normal less than 150 mg/dL Borderline 150-199 mg/dL High 200-499 mg/dL Very High greater than 499 mg/dL HDL Cholesterol 40 40 - 60 mg/dL [facility] Comment: HDL Cholesterol Reference Ranges: Low less than 40 mg/dL High greater than 59 mg/dL LDL Cholesterol 74 0 - 130 mg/dL [facility] Comment: LDL Cholesterol Reference Ranges: Optimal less than 100 mg/dL Near Optimal 100-129 mg/dL Borderline 130-159 mg/dL High 160-189 mg/dL Very High greater than 189 mg/dL Blood specimen (specimen) 07/03/2015 11:30 AM EDT 07/03/2015 11:38 AM EDT [facility] - 07/03/2015 12:14 PM EDT Specimen Type : Blood Sukhwinder Shanks MD LAB BLOOD ORDERABLES Final Res ult Performing Organization Address City/[facility]/ZIP Co de Phone Number [facility]
[address] [place] [address], from Last 3 Months or Most Recently Relevant to Health Maintenance Insurance [place] [facility] MEDICARE ADVANTAGE SNP PPO Care Teams Television Writer Relationship Specialty Start Date End Date Dante Hutchinson MD [address] [facility] [address] [place] [address] PCP - General 07/03/15
== END 2024-11-03 23:59 | disposition home or self-care (01) ==
LOC: RAD 09:02
PROVIDERS: PCP Family Medicine; Visit Provider Family Medicine
DX: M81.0 Age-related osteoporosis without current pathological fracture (principal)
CPT/HCPCS: 77080

== ENCOUNTER 2025-01-31 15:30 | Outpatient (CLI) | payer MEDICARE, MEDICAID, SELFPAY ==
[2025-01-31 19:14] LABS: Alanine Aminotransferase 16 U/L (12-78); Albumin Level 4.0 g/dl (3.5-5.0); Albumin/Globulin Ratio 1.1 (1.1-1.8); Alkaline Phosphatase 127 U/L (38-126); Anion Gap 11.2 mEq/L (5-15); Aspartate Amino Transferase 24 U/L (14-36); Bilirubin,Total 0.4 mg/dl (0.2-1.3); Blood Urea Nitrogen 34 mg/dl (7-17); Calcium 9.0 mg/dl (8.4-10.2); Carbon Dioxide 28 mmol/L (22.0-30.0); Chloride 104 mmol/L (98-107); Creatinine,Serum 1.40 mg/dl (0.52-1.04); Estimated Glomerular Filt Rate 37 ml/min (>60); GFR (African American) 44 ML/MIN (>60); Globulin 3.5 g/dL (1.3-3.2); Glucose 142 mg/dl (74-100); Potassium 4.2 mmoL/L (3.5-5.1); Sodium 139 mmol/L (136-145); Total Protein,Serum 7.5 g/dl (6.3-8.2)
[2025-01-31 19:45] LABS: Thyroid Stimulating Hormone 0.04 uIU/mL (0.465-4.68)
== END 2025-01-31 23:59 | disposition home or self-care (01) ==
LOC: LAB.DROPOF 02-01 13:20
PROVIDERS: PCP Family Medicine; Visit Provider Family Medicine
DX: E11.59 Type 2 diabetes mellitus with other circulatory complications (principal); E03.9 Hypothyroidism, unspecified
CPT/HCPCS: 80053; 84443